=== PATIENT | male | born 1950 | race Hispanic/Latino ===

== ENCOUNTER 2017-05-11 07:08 | Inpatient (IN) | payer OTHER, MEDICARE ==
[2017-05-07 09:30] LABS: Basophils % (Auto) 0.4 % (0.0-1.8); Eosinophils # (Auto) 0.2 K/mm3 (0.0-0.4); Eosinophils % (Auto) 2.5 % (0.0-4.3); Hematocrit 41.8 % (35.5-45.6); Hemoglobin 14.1 gm/dl (11.8-15.2); Lymphocytes % (Auto) 23.6 % (13.4-35.0); Mean Corpuscular HGB Conc 34 % (32-34); Mean Corpuscular Hemoglobin 33 pg (28-32); Mean Corpuscular Volume 97 fl (84-94); Monocytes # (Auto) 0.7 K/mm3 (0.0-0.8); Monocytes % (Auto) 8.2 % (0.0-7.3); Platelet Count 230 K/mm3 (140-440); Red Blood Count 4.33 M/mm3 (3.65-5.03); Red Cell Distribution Width 14.4 % (13.2-15.2)
[2017-05-07 09:49] LABS: INR 0.92 (0.87-1.13)
[2017-05-07 09:56] LABS: BUN/Creatinine Ratio 19; Blood Urea Nitrogen 17 mg/dL (9-20); Calcium 9.2 mg/dL (8.4-10.2)
[2017-05-07 09:57] LABS: Hemolysis Index 11
--- NOTE | 2017-05-07 15:16 | Anesthesia Consultation ---
Anesthesia Consult and Med Hx Date of service: 05/07/17 - Airway Anesthetic Teeth Evaluation: Dentures ROM Head & Neck: Adequate Mental/Hyoid Distance: Adequate Mallampati Class: Class III Intubation Access Assessment: Probably Good - Pulmonary Exam CTA: Yes - Cardiac Exam Cardiac Exam: RRR - Pre-Operative Health Status ASA Pre-Surgery Classification: ASA3 Proposed Anesthetic Plan: General - Pre-Anesthesia Comment Pre-Anesthesia Comments: Cardiac clearance on chart - Pulmonary Hx Smoking: Yes (2pk/day x 50yrs, uses snuff) Hx Sleep Apnea: Yes (uses CPAP) - Cardiovascular System Hx Hypertension: Yes (HL) Hx Coronary Artery Disease: Yes (s/p CABG-5vessels. EKG: SR, RBBB, old inferior infarct) Hx Heart Attack/AMI: Yes (EF 50%, mild LVH) Hx Peripheral Vascular Disease: Yes - Central Nervous System Hx Psychiatric Problems: No - Endocrine Hx Non-Insulin Dependent Diabetes: Yes - Other Systems Hx Alcohol Use: Yes (6 pack on weekends) Hx Cancer: No
[~2017-05-11 07:08] MED LIST: ANCEF/STERILE WATER 2 GM/20 ML 2 GM/20 ML SYRINGE IV NR; NACL 0.9% 1000 ML 1,000 ML IV SCH; NACL BACTERIOSTATIC INFILTRATI ONE
[2017-05-11] MEDS ORDERED: ZOFRAN IV PRN (07:10)
[2017-05-11] MEDS ORDERED: SUBLIMAZE IV PRN (07:10)
[2017-05-11] MEDS ORDERED: PROVENTIL IH NR (07:15)
--- NOTE | 2017-05-11 07:15 | Anesthesia Day of Surgery ---
Anesthesia Day of Surgery - Day of Surgery Patient Examined: Yes Patient H&P Reviewed: Yes Patient is NPO: Yes Beta Blockers: Yes Cardiac Clearance: Yes
[2017-05-11] MEDS ORDERED: HEPARIN 10,000 UNITS/10 ML ONE ×2 (07:26→12:19)
[2017-05-11] MEDS ORDERED: NACL 0.9% 500 ML 0 ML ONE (07:26)
[2017-05-11] MEDS ORDERED: DIPRIVAN 10 MG/ML IV ONE (07:29)
[2017-05-11] MEDS ORDERED: SUBLIMAZE ONE ×3 (07:31→13:04)
[2017-05-11] MEDS ORDERED: VERSED ONE (07:38)
[2017-05-11] MEDS ORDERED: MARCAINE 0.5% 30 ML INFILTRATI ONE (07:39)
[2017-05-11] MEDS ORDERED: PEPCID IV NR (08:00)
[2017-05-11] MEDS ORDERED: ALBURX 25% (ALBUMIN) IV ONE ×3 (09:00→12:00)
[2017-05-11] MEDS ORDERED: PROTAMINE SULFATE ONE (09:10)
[2017-05-11] MEDS ORDERED: GELFOAM TP ONE (09:10)
[2017-05-11] MEDS ORDERED: NACL 0.9% 100 ML ONE (09:10)
[2017-05-11] MEDS ORDERED: THROMBIN (BOVINE) TP ONE (09:11)
[2017-05-11] MEDS ORDERED: MARCAINE 0.5% INFILTRATI ONE (09:45)
[2017-05-11] MEDS ORDERED: OMNIPAQUE (300 MG) 50 ML in NACL 0.9% 50 ML IR ONE (09:45)
[2017-05-11] MEDS ORDERED: HEPARIN 10,000 UNITS/10 ML 2,000 UNIT in NACL 0.9% 500 ML 500 ML IR ONE (09:45)
[2017-05-11] MEDS ORDERED: ePHEDrine SULFATE ONE (11:33)
[2017-05-11] MEDS ORDERED: NACL 0.9% 500 ML 500 ML ONE (12:19)
[2017-05-11] MEDS ORDERED: MORPHINE IV PRN ×2 (12:37)
[2017-05-11] MEDS ORDERED: NACL 0.9% IR ONE (12:37)
[2017-05-11] MEDS ORDERED: NARCAN 0.4 MG/1 ML IV PRN (12:37)
[2017-05-11] MEDS ORDERED: ANCEF/NS 1 GM/50 ML 1 GM/50 ML BAG IV SCH (13:00)
--- NOTE | 2017-05-11 13:37 | Post Anesthesia Evaluation ---
- Post Anesthesia Evaluation Patient Participated: Yes Airway Patent: Yes Stable Respiratory Function: Yes Nausea/Vomiting: No Temp > 96.8F: Yes Pain Manageable: Yes Adequeate Hydration: Yes Anesthesia Complications: No
--- NOTE | 2017-05-11 13:48 | Operative Report ---
Operative Report Operative Report: Operative note: Date: 05/11/2017 Preoperative diagnosis: Chronic left limb ischemia with life limiting short distance claudication Postoperative diagnosis: Same. Operation: Left common femoral endarterectomy with patch angioplasty. Left iliac angiogram. Left external iliac stenting. Surgeon: Raquel Sam. Asst.: Dr. Randy Coles Anesthesia: Gen. EBL: 600 mL Findings: Occluded left common femoral artery. Stenosis of left external iliac artery. Excellent flow at the end of procedure. Indications: 66-year-old gentleman with complains of life limiting left leg claudication with very short distance that causes a lot of discomfort during his work. He had CT a that showed complete occlusion of left common femoral artery with stenosis of external iliac artery. Patient was offered left common femoral endarterectomy with iliac stenting, explained all risks, benefits and alternatives of procedure. Patient chose to proceed and signed informed consent. Operative details: Patient was brought to the operating room and placed in supine position. He was prepped and draped in sterile fashion circumferentially left lower extremity. Timeout was performed. Incision was made with skin blade in the left groin area in the vertical fashion. It was carried down through subcutaneous tissue with electrocautery. Fascia was incised and femoral artery dissected. Superficial femoral artery, profunda and proximal common femoral artery/external iliac was taken on vessel loops for proximal and distal control. Patient was heparinized with 5000 units of heparin and allowed 3 minutes to circulate. Proximal control was also gained with a Satinsky clamp. Arteriotomy was created with 11 blade and carried Down with Milian scissors. Using [place] pickups and [place] elevator endotracheal was performed. Eversion technique was used for plaque removal from profunda and SFA. Plaque also was cleaned proximally using mosquito clamp and removed from just below proximal control clamp. Vessels were flushed. Bovine pericardium patch was used for patch angioplasty sizing 0.8 x 8cm. we used 50 C1 Prolene stitch in circumferential fashion. Lumen was flushed before stitch completion. Repair stitches were used for hemostasis. There was a bleeding from the vessel wall at the bifurcation of the SFA and profunda required pledgeted stitch. A second part of our procedure was iliac stenting. Micropuncture needle was used to access in the middle patch, it was exchanged to a micro-punctures she is over guidewire under fluoroscopic guidance. Angiogram of left iliacs showed high-grade stenosis of external iliac artery in proximal and distal portions. This point I advanced the Glidewire to distal aorta and exchanged micropuncture sheath 7 Afghan access sheath. It was flushed. Glidewire was exchanged to the V18 wire over vertebral catheter. 7 x 10 cm Viabahn stent was deployed just below internal iliac artery takeoff that covered both lesions. It was postdilated with a 7 x 40 conquest balloon. Post intervention angiogram showed no residual stenosis and excellent stent positioning, patent internal iliac artery. At this point all wires were removed and sheath access site was closed using 6-0 Prolene. Withdrawal of procedure patient was redosed with heparin every hour. Wound was copiously irrigated with saline. It was checked for hemostasis. Fibrillar was laid on top of the arterial site. Wound was closed in layers with fascia approximation with 3-0 Vicryl. and superficial layer with Monocryl. Dermabond was applied. All sponge and needle count was correct. Patient tolerated the procedure well. At the end of procedure she had palpable PT and Doppler DP signal. He was transferred to PACU in stable condition
[2017-05-11] MEDS ORDERED: NACL 0.9% 1000 ML 1,000 ML IV SCH (14:00)
[2017-05-11] MEDS ORDERED: NON-FORMULARY (Labetalol Hcl [Labetalol Hcl] 300 MG) PO SCH (14:00)
[2017-05-11] MEDS: DILAUDID IV PRN ×2 (14:20→15:25)
[2017-05-11] MEDS ORDERED: ZOFRAN ONE (16:00)
[2017-05-11] MEDS ORDERED: NEOSTIGMINE ONE (16:00)
[2017-05-11] MEDS ORDERED: NEO SYNEPHRINE/NS Syringe(OR USE) IV ONE (16:00)
[2017-05-11] MEDS ORDERED: ZEMURON IV ONE (16:00)
[2017-05-11] MEDS ORDERED: XYLOCAINE MPF 2% ONE (16:00)
[2017-05-11] MEDS ORDERED: ROBINUL ONE (16:00)
[2017-05-11] MEDS: ceFAZolin 1 GM in NACL 0.9% 20 ML IV SCH (20:10)
[2017-05-11] MEDS ORDERED: GLUCOPHAGE PO SCH (22:00)
[2017-05-11] MEDS ORDERED: PLETAL PO SCH (22:00)
[2017-05-11] MEDS: NORMODYNE PO SCH (22:13)
[2017-05-12] MEDS: ceFAZolin 1 GM in NACL 0.9% 20 ML IV SCH (02:15)
[2017-05-12 04:12] LABS: Hematocrit 33.3 % (35.5-45.6); Hemoglobin 11.1 gm/dl (11.8-15.2)
[2017-05-12] MEDS: NORCO 5/325 PO PRN ×2 (04:30→10:13)
[2017-05-12 04:34] LABS: BUN/Creatinine Ratio 15; Blood Urea Nitrogen 12 mg/dL (9-20); Calcium 7.5 mg/dL (8.4-10.2); Hemolysis Index 3
[2017-05-12] MEDS: ZOFRAN IV PRN ×2 (04:49→15:39)
[2017-05-12] MEDS ORDERED: VALSARTAN HCTZ PO SCH (10:00)
--- NOTE | 2017-05-12 10:10 | Progress Note ---
Assessment and Plan Pt s/p L femoral endarterectomy with iliac angioplasty and stent placement. He's awake and alert. His pulse ox is in the low 90's on O2 NC. I encouraged Incentive spirometry. Pt is anxious to go home. I re-iterated to him that I would re-eval later today. If he can ambulate adequately to complete his ADL, Pain is controlled with oral analgesics, and his room air pulse ox were adequate then we'd d/c him later today. If his pulse ox remains low then he may need home oxygen and d/c planning would have to be completed. - Patient Problems (1) Atherosclerosis of [place] arteries of extremity with intermittent claudication Current Visit: Yes Status: Acute Subjective Date of service: 05/12/17 Interval history: Pt awake and alert. Min. incisional discomfort, but well tolerated. Objective - Constitutional Vitals: Vital Signs - 12hr 05/11/17 05/11/17 05/11/17 22:13 22:30 23:00 Temperature Pulse Rate 93 H 91 H Respiratory 15 16 Rate Respiratory Rate [Left Groin] Blood Pressure 125/53 Blood Pressure 121/57 [Left] O2 Sat by Pulse 94 Oximetry 05/12/17 05/12/17 05/12/17 00:00 01:00 02:00 Temperature Pulse Rate 86 91 H 85 Respiratory 14 16 17 Rate Respiratory Rate [Left Groin] Blood Pressure Blood Pressure 110/52 121/52 121/58 [Left] O2 Sat by Pulse 95 94 95 Oximetry 05/12/17 05/12/17 05/12/17 03:00 04:00 04:30 Temperature Pulse Rate 87 87 Respiratory 14 16 17 Rate Respiratory Rate [Left Groin] Blood Pressure Blood Pressure 128/60 116/55 [Left] O2 Sat by Pulse 94 93 Oximetry 05/12/17 05/12/17 05/12/17 05:00 06:00 07:00 Temperature Pulse Rate 83 86 85 Respiratory 16 12 17 Rate Respiratory Rate [Left Groin] Blood Pressure Blood Pressure 117/54 127/60 117/53 [Left] O2 Sat by Pulse 93 93 92 Oximetry 05/12/17 05/12/17 08:00 08:40 Temperature 98 F Pulse Rate 91 H Respiratory 12 Rate Respiratory 18 Rate [Left Groin] Blood Pressure Blood Pressure 146/62 [Left] O2 Sat by Pulse 90 Oximetry General appearance: Present: no acute distress - EENT Eyes: EOM intact ENT: hearing intact - Neck Neck: supple - Respiratory Respiratory effort: normal Extremities: no ischemia, normal temperature Extremity abnormal: pulses diminished (but audible pedal dopplers on the left: PT>DP) - Neurologic Neurologic: no focal deficits - Psychiatric Psychiatric: appropriate mood/affect, intact judgment & insight, cooperative - Labs CBC & Chem 7: 05/12/17 04:00 05/12/17 04:00 Labs: Abnormal lab results 05/11/17 05/11/17 05/11/17 Range/Units 13:21 18:41 21:42 Hgb (11.8-15.2) gm/dl Hct (35.5-45.6) % Glucose (75-100) mg/dL POC Glucose 172 H 111 H 113 H (70-105) Calcium (8.4-10.2) mg/dL 05/12/17 05/12/17 05/12/17 Range/Units 04:00 04:00 06:39 Hgb 11.1 L (11.8-15.2) gm/dl Hct 33.3 L (35.5-45.6) % Glucose 120 H (75-100) mg/dL POC Glucose 131 H (70-105) Calcium 7.5 L D (8.4-10.2) mg/dL
[2017-05-12] MEDS: HCTZ PO SCH (10:16)
[2017-05-12] MEDS: LOVENOX SUB-Q SCH (10:16)
[2017-05-12] MEDS: HALFPRIN EC PO SCH (10:17)
[2017-05-12] MEDS: NORVASC PO SCH (10:18)
[2017-05-12] MEDS: PAXIL PO SCH (11:01)
[2017-05-12] MEDS: DIOVAN PO SCH (11:06)
[2017-05-12] MEDS: NOVOLOG SUB-Q SCH ×4 (13:12→23:28)
[2017-05-12] MEDS: NORMODYNE PO SCH ×3 (13:14→21:04)
--- NOTE | 2017-05-12 16:12 | Consultation ---
History of Present Illness Consult date: 05/12/17 Requesting physician: SHARLA VAIL Reason for consult: hypoxemia History of present illness: 66 y/o smoker of 40+ years, still smoking admitted for vascular surgery. Tolerated procedure well with no issues. Post-op day 1, patient hypoxic on room air at rest to 88%. Pulm asked to evaluate patient. Per patient he is still smoking but will stop once discharged. He states that he has never had any issues with breathing and feels fine. Denies any cough or chest pain. Past History Past Medical History: other (PVD) Past Surgical History: Other (Most recent vascular procedure) Social history: smoking Medications and Allergies Allergies Allergy/AdvReac Type Severity Reaction Status Date / Time Sulfa (Sulfonamide Allergy rash, Verified 05/05/17 15:15 Antibiotics) swelling Home Medications Medication Instructions Recorded Confirmed Last Taken Type Amlodipine Besylate [Norvasc] 10 mg PO DAILY 05/05/17 05/11/17 05/11/17 05:00 History Aspirin [Lo-Dose Aspirin EC] 81 mg PO DAILY 05/05/17 05/11/17 05/10/17 History Cilostazol [Pletal] 100 mg PO BID 05/05/17 05/11/17 05/10/17 History Diclofenac Sodium 75 mg PO DAILY 05/05/17 05/11/17 05/10/17 History Labetalol HCl 300 mg PO TID 05/05/17 05/11/17 05/11/17 05:00 History PARoxetine [Paxil] 20 mg PO DAILY 05/05/17 05/11/17 05/10/17 History Valsartan-Hctz 320-25 mg Tab 1 tab PO DAILY 05/05/17 05/11/17 05/10/17 05:00 History metFORMIN [Glucophage] 500 mg PO BID 05/05/17 05/11/17 05/10/17 History HYDROcodone/APAP 7.5-325 [[place] 1 each PO Q6HR PRN #20 tablet 05/12/17 Unknown Rx 7.5/325] Active Meds: Active Medications Acetaminophen/Hydrocodone Bitart ([place] 5/325) 2 each PO Q6H PRN PRN Reason: Pain, Moderate (4-6) Last Admin: 05/12/17 10:13 Dose: 2 each Amlodipine Besylate (Norvasc) 10 mg PO DAILY [facility] Last Admin: 05/12/17 10:18 Dose: 10 mg Aspirin (Halfprin Ec) 81 mg PO DAILY [facility] Last Admin: 05/12/17 10:17 Dose: 81 mg Enoxaparin Sodium (Lovenox) 40 mg SUB-Q QDAY [facility] Last Admin: 05/12/17 10:16 Dose: 40 mg Hydrochlorothiazide (Hctz) 25 mg PO QDAY [facility] Last Admin: 05/12/17 10:16 Dose: 25 mg Insulin Aspart (Novolog) 0 units SUB-Q ACHS [facility] PRN Reason: Protocol Last Admin: 05/12/17 13:13 Dose: 1 units Labetalol HCl (Normodyne) 300 mg PO TID [facility] Last Admin: 05/12/17 13:23 Dose: 300 mg Metformin HCl (Glucophage) 500 mg PO BID [facility] Morphine Sulfate (Morphine) 2 mg IV Q4H PRN PRN Reason: Pain, Moderate (4-6) Last Admin: 05/11/17 22:30 Dose: 2 mg Morphine Sulfate (Morphine) 4 mg IV Q4H PRN PRN Reason: Pain , Severe (7-10) Last Admin: 05/12/17 02:00 Dose: 4 mg Naloxone HCl (Narcan 0.4 Mg/1 Ml) 0.1 mg IV Q2MIN PRN PRN Reason: Res Rate </= 8 or 02 SAT < 92% Ondansetron HCl (Zofran) 4 mg IV Q8H PRN PRN Reason: Nausea And Vomiting Last Admin: 05/12/17 15:39 Dose: 4 mg Paroxetine HCl (Paxil) 20 mg PO DAILY [facility] Last Admin: 05/12/17 11:01 Dose: 20 mg Valsartan (Diovan) 320 mg PO QDAY [facility] Last Admin: 05/12/17 11:06 Dose: 320 mg Review of Systems All systems: negative Physical Examination Vital signs: Vital Signs Temp Pulse Resp BP 97.8 F 78 18 144/68 05/07/17 09:10 05/07/17 09:10 05/07/17 09:10 05/07/17 09:10 Patient declined physical exam Results - Laboratory Findings CBC and BMP: 05/12/17 04:00 05/12/17 04:00 PT/INR, D-dimer PT 12.8 Sec. (12.2-14.9) 05/07/17 09:10 INR 0.92 (0.87-1.13) 05/07/17 09:10 Abnormal lab findings: Abnormal Labs 05/07/17 05/07/17 05/11/17 09:10 09:10 07:04 Hgb Hct MCV 97 H MCH 33 H [place] % (Auto) 8.2 H Glucose 153 H POC Glucose 122 H Calcium 05/11/17 05/11/17 05/11/17 13:21 18:41 21:42 Hgb Hct MCV MCH [place] % (Auto) Glucose POC Glucose 172 H 111 H 113 H Calcium 05/12/17 05/12/17 05/12/17 04:00 04:00 06:39 Hgb 11.1 L Hct 33.3 L MCV MCH [place] % (Auto) Glucose 120 H POC Glucose 131 H Calcium 7.5 L D 05/12/17 11:16 Hgb Hct MCV MCH [place] % (Auto) Glucose POC Glucose 157 H Calcium Assessment and Plan 66 y/o male, smoker with hypoxemia. 1. Long discussion at bedside with patient. I expressed my concerns about the possiblity of him having COPD. I expressed the most likely need for him to have home O2. I also expressed my concern for lack of oxygen from here on out as well as the dangers of smoking while wearing oxygen. 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 He also states that he will not elect to have a CXR done while here as it was a waste of money in the past and he just had one 2 -3 months ago from his primary doc and was told that everything was ok. He was not interested in hearing about follow up as he states that he already goes to too many specialists and he will not take on another one. I again, attempted to explain the risk of his actions to the patient and he states that he understands. He is currently wearing oxygen and has a good O2 sat and is awake alert and oriented x4 and appropriate. Thank you for this consult. Please call with any questions.
[2017-05-13 09:10] VITALS: BP 158/59
--- NOTE | 2017-05-13 09:36 | Short Stay Summary ---
Short Stay Documentation Date of service: 05/13/17 Narrative H&P: See H&P - History H&P: obtained from office Past Medical History: other (PVD) Past Surgical History: Other (Most recent vascular procedure) Social history: smoking - Allergies and Medications Current Medications: Allergies Sulfa (Sulfonamide Antibiotics) Allergy (Verified 05/05/17 15:15) rash, swelling Home Medications Medication Instructions Recorded Confirmed Last Taken Type Amlodipine Besylate [Norvasc] 10 mg PO DAILY 05/05/17 05/11/17 05/11/17 05:00 History Aspirin [Lo-Dose Aspirin EC] 81 mg PO DAILY 05/05/17 05/11/17 05/10/17 History Cilostazol [Pletal] 100 mg PO BID 05/05/17 05/11/17 05/10/17 History Diclofenac Sodium 75 mg PO DAILY 05/05/17 05/11/17 05/10/17 History Labetalol HCl 300 mg PO TID 05/05/17 05/11/17 05/11/17 05:00 History PARoxetine [Paxil] 20 mg PO DAILY 05/05/17 05/11/17 05/10/17 History Valsartan-Hctz 320-25 mg Tab 1 tab PO DAILY 05/05/17 05/11/17 05/10/17 05:00 History metFORMIN [Glucophage] 500 mg PO BID 05/05/17 05/11/17 05/10/17 History HYDROcodone/APAP 7.5-325 [[place] 1 each PO Q6HR PRN #20 tablet 05/12/17 Unknown Rx 7.5/325] Active Medications Acetaminophen/Hydrocodone Bitart ([place] 5/325) 2 each PO Q6H PRN PRN Reason: Pain, Moderate (4-6) Last Admin: 05/12/17 10:13 Dose: 2 each Amlodipine Besylate (Norvasc) 10 mg PO DAILY [facility] Last Admin: 05/12/17 10:18 Dose: 10 mg Aspirin (Halfprin Ec) 81 mg PO DAILY [facility] Last Admin: 05/12/17 10:17 Dose: 81 mg Enoxaparin Sodium (Lovenox) 40 mg SUB-Q QDAY [facility] Last Admin: 05/12/17 10:16 Dose: 40 mg Hydrochlorothiazide (Hctz) 25 mg PO QDAY [facility] Last Admin: 05/12/17 10:16 Dose: 25 mg Insulin Aspart (Novolog) 0 units SUB-Q ACHS [facility] PRN Reason: Protocol Last Admin: 05/12/17 23:28 Dose: Not Given Labetalol HCl (Normodyne) 300 mg PO TID [facility] Last Admin: 05/12/17 21:04 Dose: 300 mg Metformin HCl (Glucophage) 500 mg PO BIDDIAB [facility] Morphine Sulfate (Morphine) 2 mg IV Q4H PRN PRN Reason: Pain, Moderate (4-6) Last Admin: 05/11/17 22:30 Dose: 2 mg Morphine Sulfate (Morphine) 4 mg IV Q4H PRN PRN Reason: Pain , Severe (7-10) Last Admin: 05/12/17 02:00 Dose: 4 mg Naloxone HCl (Narcan 0.4 Mg/1 Ml) 0.1 mg IV Q2MIN PRN PRN Reason: Res Rate </= 8 or 02 SAT < 92% Ondansetron HCl (Zofran) 4 mg IV Q8H PRN PRN Reason: Nausea And Vomiting Last Admin: 05/12/17 15:39 Dose: 4 mg Paroxetine HCl (Paxil) 20 mg PO DAILY [facility] Last Admin: 05/12/17 11:01 Dose: 20 mg Valsartan (Diovan) 320 mg PO QDAY [facility] Last Admin: 05/12/17 11:06 Dose: 320 mg - Physical exam Extremities: no ischemia, normal temperature - Brief post op/procedure progress note Date of procedure: 05/11/17 Procedure: See the operative note for details - Hospital course Hospital course: The patient was admitted and taken to the operating room for a left common femoral endarterectomy with left external iliac artery stenting. Postoperatively he was admitted to the ICU however he remained in the PACU. He did fairly well however he has some postoperative complications secondary to decreased saturations on room air. Pulmonology was consulted and made recommendations for a chest x-ray and home oxygen however the patient refused all recommendations including follow-up with pulmonology. On postoperative day #1 he wore CPAP overnight and on postoperative day #2 the patient's oxygen saturations have improved and he has a room air saturation of 92%. I still have stressed the recommendations of the staff nurse with follow-up and a baseline chest x-ray. The patient still refuses these recommendations however given the improved room air saturations he is clinically ready for discharge to home. - Disposition Condition at discharge: Good Disposition: DC-01 TO HOME OR SELFCARE Short Stay Discharge Plan Activity: other (no strenuous activity until follow-up) Wound: open to air, keep clean and dry, other (okay to shower and wash the wound with soap and water but do not soak in water) Follow up with: SHARLA VAIL DO [Staff Physician] - 14 Days Prescriptions: HYDROcodone/APAP 7.5-325 [[place] 7.5/325] 1 each PO Q6HR PRN #20 tablet PRN Reason: Pain
--- NOTE | 2017-05-13 09:38 | Progress Note ---
Assessment and Plan Postoperative #2 patient's room air saturations have improved and he is clinically ready for discharge to home Subjective Date of service: 05/13/17 Interval history: Patient with no new complaints room air saturations 92% Objective - Constitutional Vitals: Vital Signs - 12hr 05/12/17 05/12/17 05/13/17 22:30 23:31 05:53 Temperature 98.1 F 98.2 F Pulse Rate 86 80 92 H Respiratory 20 22 24 Rate Blood Pressure 97/46 148/69 O2 Sat by Pulse 95 88 87 Oximetry 05/13/17 08:45 Temperature 98.4 F Pulse Rate 95 H Respiratory 20 Rate Blood Pressure 158/59 O2 Sat by Pulse 92 Oximetry General appearance: Present: no acute distress - Respiratory Respiratory effort: normal Extremities: no ischemia, normal temperature Extremity abnormal: other (left groin incision clean dry and intact without evidence of hematoma) - Labs CBC & Chem 7: 05/12/17 04:00 05/12/17 04:00 Labs: Abnormal lab results 05/12/17 05/12/17 05/12/17 Range/Units 11:16 17:41 22:21 POC Glucose 157 H 116 H 150 H (70-105) 05/13/17 Range/Units 06:00 POC Glucose 127 H (70-105)
[2017-05-13] MEDS: PAXIL PO SCH (10:20)
[2017-05-13] MEDS: NOVOLOG SUB-Q SCH (10:20)
[2017-05-13] MEDS: DIOVAN PO SCH (10:20)
[2017-05-13] MEDS: LOVENOX SUB-Q SCH (10:21)
[2017-05-13] MEDS: NORVASC PO SCH (10:21)
[2017-05-13] MEDS: HCTZ PO SCH (10:21)
[2017-05-13] MEDS: HALFPRIN EC PO SCH (10:52)
[2017-05-13] MEDS: NORMODYNE PO SCH (10:52)
[2017-05-14] MEDS ORDERED: GLUCOPHAGE PO SCH (08:00)
== END 2017-05-13 11:25 | disposition home or self-care (01) | DRG 272 ==
LOC: 3A 11:01 → CC1 05-12 00:15 → 3A 05-12 11:10
PROVIDERS: ADMIT Surgery Vascular Surgery; ATTEND Surgery Vascular Surgery
PROC: 04CL3ZZ Extirpation of Matter from Left Femoral Artery, Percutaneous Approach (ICD-10-PCS; principal; 2017-05-11)
PROC: 04UL3JZ Supplement Left Femoral Artery with Synthetic Substitute, Percutaneous Approach (ICD-10-PCS; 2017-05-11)
PROC: 047J3DZ Dilation of Left External Iliac Artery with Intraluminal Device, Percutaneous Approach (ICD-10-PCS; 2017-05-11)
PROC: 5A09357 Assistance with Respiratory Ventilation, Less than 24 Consecutive Hours, Continuous Positive Airway Pressure (ICD-10-PCS; 2017-05-11)
DX: I70.212 Atherosclerosis of native arteries of extremities with intermittent claudication, left leg (principal); Z88.2 Allergy status to sulfonamides; Z87.891 Personal history of nicotine dependence; Z79.82 Long term (current) use of aspirin; R09.02 Hypoxemia
CPT/HCPCS: 36415; 80048; 82962; 85014; 85018; 85025; 85610; 86850; 86900; 86901; 88304; 88311; 94660; 94760; 99406; A4649; C1725; C1757; C1768; C1769; C1874; C1894; J0690; J1170; J1644; J1650; J1815; J2250; J2270; J2370; J2405; J2704; J2710; J2720; J3010; J3246; J7030; J7040; P9047; Q9966

== ENCOUNTER 2017-08-10 09:00 | Inpatient (IN) | payer OTHER, MEDICARE ==
[2017-08-10 10:41] LABS: Basophils % (Auto) 0.6 % (0.0-1.8); Eosinophils # (Auto) 0.3 K/mm3 (0.0-0.4); Eosinophils % (Auto) 3.3 % (0.0-4.3); Hematocrit 43.5 % (35.5-45.6); Hemoglobin 14.7 gm/dl (11.8-15.2); Lymphocytes # (Auto) 1.3 K/mm3 (1.2-5.4); Lymphocytes % (Auto) 16.1 % (13.4-35.0); Mean Corpuscular HGB Conc 34 % (32-34); Mean Corpuscular Hemoglobin 33 pg (28-32); Mean Corpuscular Volume 97 fl (84-94); Monocytes # (Auto) 0.6 K/mm3 (0.0-0.8); Monocytes % (Auto) 7.1 % (0.0-7.3); Platelet Count 241 K/mm3 (140-440); Red Blood Count 4.48 M/mm3 (3.65-5.03); Red Cell Distribution Width 14.8 % (13.2-15.2)
[2017-08-10 10:47] LABS: INR 0.81 (0.87-1.13)
--- NOTE | 2017-08-10 10:49 | Anesthesia Consultation ---
Anesthesia Consult and Med Hx Date of service: 08/11/17 - Airway Anesthetic Teeth Evaluation: Dentures ROM Head & Neck: Adequate Mental/Hyoid Distance: Adequate Mallampati Class: Class III Intubation Access Assessment: Probably Good - Pulmonary Exam CTA: Yes - Cardiac Exam Cardiac Exam: RRR - Pre-Operative Health Status ASA Pre-Surgery Classification: ASA3 Proposed Anesthetic Plan: General - Pulmonary Hx Smoking: Yes Hx Sleep Apnea: Yes (on CPAP) - Cardiovascular System Hx Hypertension: Yes Hx Coronary Artery Disease: Yes (s/p CABG-5vessels) Hx Peripheral Vascular Disease: Yes - Central Nervous System Hx Psychiatric Problems: No - Endocrine Hx Non-Insulin Dependent Diabetes: Yes - Other Systems Hx Alcohol Use: Yes (6 pack on weekends) Hx Cancer: No Hx Obesity: Yes - Additional Comments Anesthesia Medical History Comments: Cataract surgery last week. femoral endareterectomy other side in April. cardiac clearance on chart
[2017-08-10 10:58] LABS: BUN/Creatinine Ratio 19; Blood Urea Nitrogen 13 mg/dL (9-20); Calcium 9.2 mg/dL (8.4-10.2); Hemolysis Index 12
[2017-08-11] MEDS ORDERED: ANCEF/STERILE WATER 2 GM/20 ML 2 GM/20 ML SYRINGE IV NR (06:00)
[2017-08-11] MEDS ORDERED: NACL BACTERIOSTATIC INFILTRATI ONE (06:22)
[2017-08-11] MEDS: NACL 0.9% 1000 ML 1,000 ML IV SCH ×3 (06:50→21:19)
[2017-08-11] MEDS ORDERED: SUBLIMAZE ONE ×2 (06:54→07:53)
[2017-08-11] MEDS ORDERED: DIPRIVAN 10 MG/ML IV ONE (06:55)
--- NOTE | 2017-08-11 07:13 | Anesthesia Consultation ---
Anesthesia Consult and Med Hx - Pulmonary Exam CTA: Yes - Cardiac Exam Cardiac Exam: RRR - Pre-Operative Health Status ASA Pre-Surgery Classification: ASA3 - Pulmonary Hx Smoking: Yes Hx Sleep Apnea: Yes (on CPAP) - Cardiovascular System Hx Hypertension: Yes Hx Coronary Artery Disease: Yes (s/p CABG-5vessels) Hx Heart Attack/AMI: Yes (seen on EKG, pt states don't know when) Hx Peripheral Vascular Disease: Yes - Central Nervous System Hx Psychiatric Problems: No - Endocrine Hx Non-Insulin Dependent Diabetes: Yes - Other Systems Hx Alcohol Use: Yes (6 pack on weekends) Hx Cancer: No Hx Obesity: Yes - Additional Comments Anesthesia Medical History Comments: Cataract surgery last week. femoral endareterectomy other side in April. cardiac clearance on chart
[2017-08-11] MEDS ORDERED: NACL 0.9% 500 ML 500 ML ONE (07:38)
[2017-08-11] MEDS ORDERED: HEPARIN 10,000 UNITS/10 ML ONE ×2 (07:38→14:05)
[2017-08-11] MEDS ORDERED: VERSED ONE (07:40)
--- NOTE | 2017-08-11 07:47 | Anesthesia Day of Surgery ---
Anesthesia Day of Surgery - Day of Surgery Patient Examined: Yes Patient H&P Reviewed: Yes Patient is NPO: Yes Beta Blockers: Yes Cardiac Clearance: Yes Pulmonary Clearance: Yes Apolinar's Test: N/A
[2017-08-11] MEDS ORDERED: MARCAINE 0.5% INFILTRATI ONE ×2 (07:49→09:34)
[2017-08-11] MEDS ORDERED: PROTAMINE SULFATE ONE (07:49)
[2017-08-11] MEDS ORDERED: RIFADIN ONE (07:49)
[2017-08-11] MEDS ORDERED: GELFOAM TP ONE (07:50)
[2017-08-11] MEDS ORDERED: NACL 0.9% 250ML 250 ML ONE ×2 (07:50→12:12)
[2017-08-11] MEDS ORDERED: THROMBIN (BOVINE) TP ONE (07:50)
[2017-08-11] MEDS ORDERED: ePHEDrine SULFATE ONE ×2 (08:36→13:41)
[2017-08-11] MEDS ORDERED: ZEMURON IV ONE ×6 (09:15→15:05)
[2017-08-11] MEDS ORDERED: XYLOCAINE CARDIAC IV ONE (09:15)
[2017-08-11] MEDS ORDERED: NACL 0.9% 1000 ML 2,000 ML ONE (09:15)
[2017-08-11] MEDS ORDERED: NACL 0.9% IR ONE (09:33)
[2017-08-11] MEDS ORDERED: HEPARIN 10,000 UNITS/10 ML 2,000 UNIT in NACL 0.9% 500 ML 500 ML IR ONE ×2 (09:34→14:50)
[2017-08-11] MEDS ORDERED: ALBURX 25% (ALBUMIN) IV ONE (09:58)
[2017-08-11] MEDS ORDERED: ALBUTEIN IV NR (10:09)
[2017-08-11] MEDS ORDERED: NEO SYNEPHRINE ONE (10:11)
[2017-08-11] MEDS ORDERED: NEO SYNEPHRINE/NS Syringe(OR USE) IV ONE ×2 (10:11→17:10)
[2017-08-11] MEDS ORDERED: NACL 0.9% 1000 ML 1,000 ML ONE ×2 (11:26→12:43)
[2017-08-11] MEDS ORDERED: OMNIPAQUE (300 MG) 50 ML in NACL 0.9% 50 ML IR ONE (11:45)
[2017-08-11] MEDS ORDERED: NACL 0.9% IV ONE (11:45)
[2017-08-11] MEDS ORDERED: OMNIPAQUE IV ONE (11:45)
[2017-08-11] MEDS ORDERED: HEPARIN 10,000 UNITS/10 ML 1,000 UNIT in NACL 0.9% 250ML 250 ML IR ONE (12:35)
[2017-08-11] MEDS ORDERED: NACL 0.9% 500 ML 500 ML IV NR ×3 (12:52→16:41)
[2017-08-11] MEDS ORDERED: NACL 0.9% 100 ML ONE (12:54)
[2017-08-11] MEDS ORDERED: NACL 0.9% 200 ML ONE (12:54)
[2017-08-11] MEDS ORDERED: Vasostrict IV ONE (13:00)
[2017-08-11] MEDS ORDERED: HumuLIN R ONE (14:37)
[2017-08-11] MEDS ORDERED: KETALAR ONE (14:37)
[2017-08-11] MEDS ORDERED: MAGNESIUM SULFATE 2GM/50ML 2 GM/50 ML BAG IV ONE (14:41)
[2017-08-11] MEDS ORDERED: CALCIUM CHLORIDE IV ONE (14:41)
[2017-08-11] MEDS ORDERED: ZOFRAN ONE (15:00)
[2017-08-11] MEDS ORDERED: CALCIUM GLUCONATE IV ONE (15:02)
[2017-08-11] MEDS ORDERED: ROBINUL ONE (15:43)
[2017-08-11] MEDS ORDERED: NEOSTIGMINE ONE (15:43)
[2017-08-11] MEDS ORDERED: NORCO 7.5/325 PO PRN (15:59)
[2017-08-11] MEDS ORDERED: HEPARIN/ 0.45% NACL-25,000 UNIT/500 ML 25,000 UNIT/500 ML BAG IV SCH (16:00)
[2017-08-11] MEDS ORDERED: NARCAN 0.4 MG/1 ML IV PRN (16:01)
[2017-08-11] MEDS ORDERED: ZOFRAN IV PRN ×2 (16:01→16:19)
--- NOTE | 2017-08-11 16:09 | Post Operative Note ---
Date of procedure: 08/11/17 Pre-op diagnosis: right lower extremity chronic ischemia with short diatance claudication Post-op diagnosis: same Findings: occluded right common femoral artery, severely disease right external iliac artery, disease in the bilateral common iliac artery Procedure: right common femoral endarterectomy with patch angioplasty, bilateral common iliac and right external artery stenting, ultrasound guided left common femoral access Anesthesia: MARICEL Surgeon: SHARLA VAIL Manager Social Media: RINA GOMEZ (Khang Gallagher) Estimated blood loss: other (1700cc) Pathology: list (plaque) Specimen disposition: to lab Condition: stable Disposition: PACU
[2017-08-11] MEDS ORDERED: DILAUDID IV PRN (16:19)
--- NOTE | 2017-08-11 16:23 | Post Anesthesia Evaluation ---
- Post Anesthesia Evaluation Patient Participated: Yes Airway Patent: Yes Stable Respiratory Function: Yes Nausea/Vomiting: No Temp > 96.8F: Yes Pain Manageable: Yes Adequeate Hydration: Yes Anesthesia Complications: No Block Receding Appropriately: Not Applicable Patient on Ventilator: No
[2017-08-11] MEDS: Vasostrict 20 UNIT in NACL 0.9% 100 ML IV SCH (16:59)
[2017-08-11] MEDS ORDERED: ANCEF/NS 1 GM/50 ML 1 GM/50 ML BAG IV SCH (17:00)
[2017-08-11] MEDS: DILAUDID IV PRN ×6 (17:09→23:08)
[2017-08-11 18:09] LABS: Basophils % (Auto) 0.2 % (0.0-1.8); Eosinophils % (Auto) 0.1 % (0.0-4.3); Hematocrit 28.3 % (35.5-45.6); Hemoglobin 9.5 gm/dl (11.8-15.2); Lymphocytes # (Auto) 0.8 K/mm3 (1.2-5.4); Lymphocytes % (Auto) 6.7 % (13.4-35.0); Mean Corpuscular HGB Conc 34 % (32-34); Mean Corpuscular Hemoglobin 32 pg (28-32); Mean Corpuscular Volume 94 fl (84-94); Monocytes # (Auto) 0.8 K/mm3 (0.0-0.8); Monocytes % (Auto) 6.7 % (0.0-7.3); Platelet Count 105 K/mm3 (140-440); Red Cell Distribution Width 16.3 % (13.2-15.2)
[2017-08-11 19:12] LABS: BUN/Creatinine Ratio 20; Blood Urea Nitrogen 14 mg/dL (9-20); Calcium 6.4 mg/dL (8.4-10.2); Hemolysis Index 5
[2017-08-11] MEDS ORDERED: NORMODYNE PO SCH (20:00)
[2017-08-11] MEDS ORDERED: NON-FORMULARY (Labetalol Hcl [Labetalol Hcl] 300 MG) PO SCH (20:00)
[2017-08-11 20:30] LABS: Hematocrit 31.1 % (35.5-45.6); Hemoglobin 10.2 gm/dl (11.8-15.2)
[2017-08-11 20:39] LABS: INR 1.15 (0.87-1.13)
[2017-08-11 20:52] LABS: Partial Thromboplastin Time 97.7 Sec. (24.2-36.6)
[2017-08-11] MEDS ORDERED: NACL 0.9% 500 ML 500 ML IV ONE (21:08)
--- NOTE | 2017-08-11 21:26 | XRay Report ---
FINAL REPORT PROCEDURE: XR CHEST 1V AP TECHNIQUE: Chest radiograph anteroposterior view. CPT 58606 HISTORY: Evaluation for pulmonary congestion COMPARISON: No prior studies are available for comparison. FINDINGS: Heart: The heart size is slightly prominent. Mediastinum/Vessels: Multiple sternal wires are present. Lungs/Pleural space: Normal. Bony thorax: No acute osseous abnormality. Life support devices: None. IMPRESSION: There is no evidence of an acute cardiopulmonary process. Borderline cardiomegaly..
[2017-08-11 22:47] LABS: Heparin anti-factor XA 0.33 U.I./ml (0.3-0.7)
[2017-08-12] MEDS ORDERED: ALBUTEIN IV STA ×2 (00:01→20:07)
[2017-08-12] MEDS: Vasostrict 20 UNIT in NACL 0.9% 100 ML IV SCH ×4 (00:03→23:27)
[2017-08-12] MEDS: ceFAZolin 1 GM in NACL 0.9% 20 ML IV SCH ×2 (00:10→08:29)
[2017-08-12 04:14] LABS: Hematocrit 27.2 % (35.5-45.6); Hemoglobin 9.1 gm/dl (11.8-15.2)
[2017-08-12 04:27] LABS: Calcium 6.3 mg/dL (8.4-10.2)
[2017-08-12] MEDS: LEVOPHED DRIP 4 MG/NS 250 ML 4 MG/250 ML BAG IV SCH ×5 (05:44→23:27)
[2017-08-12 05:55] LABS: Hematocrit 27.5 % (35.5-45.6); Hemoglobin 9.2 gm/dl (11.8-15.2)
--- NOTE | 2017-08-12 07:12 | XRay Report ---
FINAL REPORT EXAM: XR ABDOMEN 1V AP HISTORY: Abdominal distention/Hypotension TECHNIQUE: A total of 3 portable AP supine views were obtained of the abdomen. FINDINGS: There is markedly gas distention of the stomach. The bowel gas pattern otherwise is unremarkable. Free air is not seen. The lung bases are clear. There is visualization of the right renal collecting structures which appear prominent. With this related to contrast enhancement or a large staghorn calculus is uncertain. The skeletal structures reveal arthritic changes lumbar spine. IMPRESSION: Diffuse gas distention of the stomach. Otherwise nondiagnostic bowel gas pattern. Visualization of the right renal collecting structures. With this related to contrast enhancement or a large staghorn calculus is uncertain. There are no previous studies available for comparison
--- NOTE | 2017-08-12 08:19 | Operative Report ---
Operative Report Operative Report: EXAM: ULTRASOUND-GUIDED PLACEMENT OF TLC CLINICAL INDICATION: HYPOTENSIVE PATIENT REQUIRING CENTRAL VENOUS ACCESS FOR PRESSORS DATE: 08/12/2017 PROCEDURE: Following an explanation of the risks, benefits and alternatives; written informed consent was obtained. The procedure was performed at bedside in the ICU. Initial ultrasound evaluation of the neck demonstrated a patent right internal jugular vein. The patient's right neck and chest wall were prepped and draped in the usual sterile fashion. 1% lidocaine was used for anesthesia. Under ultrasound guidance, the right internal jugular vein was cannulated with a 7 cm 18-gauge needle. A 0.035 guidewire advanced centrally easily. The needle was removed and following serial dilation, a triple lumen catheter was placed over the guidewire and advance centrally. Nonpulsatile blood return from all 3 ports. The catheter was flushed and locked with sterile saline and securely fastened of the skin surface using 2-0 nylon suture. A sterile dressing was then applied. The patient tolerated the procedure well. There were no immediate post procedure complications. Post procedure chest x-ray was ordered. IMPRESSION: Ultrasound guided placement of TLC in the right internal jugular vein.
[2017-08-12] MEDS ORDERED: NACL 0.9% 1000 ML 2,000 ML IV ONE (08:37)
[2017-08-12] MEDS ORDERED: D50W (25GM) Syringe IV PRN (08:38)
[2017-08-12] MEDS ORDERED: ATIVAN IV PRN (08:40)
[2017-08-12] MEDS ORDERED: SODIUM BICARBONATE IV ONE ×5 (08:52→12:34)
[2017-08-12] MEDS ORDERED: LACTATED RINGERS 1,000 ML IV SCH ×2 (10:00→12:00)
[2017-08-12] MEDS ORDERED: NORVASC PO SCH (10:00)
[2017-08-12] MEDS: PAXIL PO SCH (10:00)
[2017-08-12] MEDS ORDERED: HCTZ PO SCH (10:00)
[2017-08-12] MEDS ORDERED: PLETAL PO SCH (10:00)
[2017-08-12] MEDS ORDERED: DIOVAN PO SCH (10:00)
[2017-08-12] MEDS ORDERED: LOVENOX SUB-Q SCH (10:00)
[2017-08-12] MEDS ORDERED: VALSARTAN HCTZ PO SCH (10:00)
[2017-08-12] MEDS ORDERED: NACL 0.9% 500 ML 500 ML ONE (10:50)
[2017-08-12] MEDS ORDERED: NACL 0.9% 500 ML 500 ML IV ONE ×3 (10:51→13:36)
[2017-08-12] MEDS ORDERED: PROTAMINE SULFATE ONE (10:51)
[2017-08-12] MEDS ORDERED: PAPAVERINE ONE (10:51)
[2017-08-12] MEDS ORDERED: HEPARIN 10,000 UNITS/10 ML ONE (10:51)
[2017-08-12] MEDS ORDERED: NITROGLYCERIN SYRINGE 0 ML ONE (10:52)
[2017-08-12] MEDS ORDERED: MARCAINE 0.5% 0 ML INFILTRATI ONE (10:53)
[2017-08-12] MEDS ORDERED: MARCAINE 0.5% INFILTRATI ONE ×2 (10:53→13:15)
[2017-08-12] MEDS ORDERED: HESPAN 500 ML IV ONE (10:54)
[2017-08-12] MEDS ORDERED: CALCIUM GLUCONATE 1,000 MG in NACL 0.9% 100 ML IV ONE (11:00)
[2017-08-12] MEDS ORDERED: ALBUTEIN IV NR (11:00)
[2017-08-12] MEDS ORDERED: MAGNESIUM SULFATE 2GM/50ML 0 GM/0 ML BAG IV ONE (11:01)
[2017-08-12] MEDS ORDERED: CALCIUM CHLORIDE IV ONE (11:01)
[2017-08-12] MEDS ORDERED: VERSED ONE ×2 (12:15→13:03)
[2017-08-12] MEDS ORDERED: ANCEF ONE (12:37)
[2017-08-12] MEDS ORDERED: ANCEF/STERILE WATER 2 GM/20 ML 2 GM/20 ML SYRINGE IV ONE (12:37)
--- NOTE | 2017-08-12 12:39 | XRay Report ---
AP CHEST: HISTORY: Tube placement Compared to 08/11/17. A right IJ central line has been inserted which terminates in the lower SVC. There is no evidence for pneumothorax. CABG changes with mild cardiomegaly is stable. The lungs are generally clear. No pleural effusion or pneumothorax. IMPRESSION: Right IJ central line placement as described. No pneumothorax. Stable cardiomegaly.
[2017-08-12] MEDS ORDERED: ACD-A 500 ML IV ONE (12:47)
--- NOTE | 2017-08-12 12:57 | Cat Scan Report ---
CT ANGIOGRAM ABDOMEN AND PELVIS History: Abdominal distention. Technique: Helical CT following IV contrast. Sagittal and coronal reformatted images. Rotational MIP images. Stenosis was calculated using NASCET criteria. Comparison: None at this facility. Findings: There is moderate to large intermediate density fluid which appears to be retroperitoneal in origin. This fluid is most pronounced in the right retroperitoneum within the pelvis and anterior to the bladder. Intermediate density fluid is also identified anterior to the psoas muscles bilaterally. There is a small blush of IV contrast just medial to the right external iliac artery/vein. This presumably represents a site of hemorrhage. I suspect this arises from the right external iliac artery. No other arterial blushes are identified. Mild cardiomegaly and small bilateral pleural effusions are identified. Mild bibasilar atelectasis. A nasogastric tube terminates in the stomach. The bowel loops are within normal limits given no oral contrast was administered. There is mild fatty change throughout the liver. No focal liver mass or surface nodularity. Vicarious excretion of contrast agent into the biliary system is noted. No obvious biliary abnormality. The pancreas, spleen, adrenal glands and left kidney are unremarkable. There is a large peripherally calcified cyst projecting from the inferior pole of the right kidney measuring 11.5 x 8.9 cm in axial plane. The ureters are normal course and caliber. The bladder is decompressed with a Medina catheter but there appears to be marked bladder wall thickening which could represent cystitis. There is a small to medium perihepatic and perisplenic ascites. Moderate to severe atherosclerotic plaques are identified throughout the abdominal aorta and major branches. There is a small fusiform infrarenal aortic aneurysm measuring 3.9 cm in diameter. Extensive atherosclerotic disease throughout the bilateral iliac systems. Vascular stents are suspected in the bilateral common iliac arteries and right external iliac artery. IMPRESSION: Findings concerning for retroperitoneal hemorrhage. There is a blush of contrast agent near the right external iliac vessels which presumably represent the site of bleeding. See above. Mild CHF. Complex right renal cyst. Extensive bladder wall thickening which could represent cystitis or trabeculation. Mild hepatic steatosis. Diffuse atherosclerotic disease. Dr. Charles was notified of these findings at 1230 hrs.
[2017-08-12] MEDS ORDERED: ARGATROBAN 250 MG in NACL 0.9% 250ML 247.5 ML IV SCH (13:00)
--- NOTE | 2017-08-12 13:02 | Consultation ---
History of Present Illness Consult date: 08/12/17 Requesting physician: SHARLA VAIL History of present illness: Patient is hypotensive, obtunded and unable to give a history. History is obtained from review of the medical records. Patient is 66 year old male with past medical history of hypertension, Type 2 DM , hyperlipidemia, CAD, PAD, who underwent elective vascular procedure for R [employer] , and is postop day 1 status post complex femoral endarterectomy and iliac artery stenting. Patient become hypotensive multiple fluid resuscitation and blood products. Also began to exhibit some altered mental status for which were consulted. On arrival the patient appears to be in moderate respiratory distress which saturation of 83 on 50% Ventimask. He is unable to provide much information. He does inform me that he drinks alcohol but not quantified. He denied any chest pain, nausea vomiting or diarrhea. He is currently on vasopressin. Patient was seen and examined. Vitals, labs, medications, chart reviewed. He is currently on norepinephrine and vasopressin with marginal blood pressure. He has a left radial intra-arterial line, a barrientos catheter and a peripheral IV. He is obtunded and moaning and groaning. He is on a heparin infusion and has received multiple blood transfusions and IV fluids Medications and Allergies Allergies Allergy/AdvReac Type Severity Reaction Status Date / Time Sulfa (Sulfonamide Allergy rash, Verified 08/05/17 10:59 Antibiotics) swelling Home Medications Medication Instructions Recorded Confirmed Last Taken Type Amlodipine Besylate [Norvasc] 10 mg PO DAILY 05/05/17 08/05/17 08/11/17 05:30 History Aspirin [Lo-Dose Aspirin EC] 81 mg PO DAILY 05/05/17 08/05/17 08/11/17 05:30 History Cilostazol [Pletal] 100 mg PO BID 05/05/17 08/05/17 08/11/17 05:30 History Diclofenac Sodium 75 mg PO DAILY 05/05/17 08/05/17 08/11/17 05:30 History Labetalol HCl 300 mg PO TID 05/05/17 08/05/17 08/11/17 05:30 History PARoxetine [Paxil] 20 mg PO DAILY 05/05/17 08/05/17 08/11/17 05:30 History Valsartan-Hctz 320-25 mg Tab 1 tab PO DAILY 05/05/17 08/05/1718 05:30 History metFORMIN [Glucophage] 500 mg PO BID 05/05/17 08/11/17 08/10/17 History HYDROcodone/APAP 7.5-325 [[place] 1 each PO Q6HR PRN #20 tablet 05/12/17 08/05/17 Unknown Rx 7.5/325] Active Meds: Active Medications Acetaminophen/Hydrocodone Bitart ([place] 5/325) 2 each PO Q6H PRN PRN Reason: Pain, Moderate (4-6) Albumin Human (Albutein) 25 gm IV ONCE NR Stop: 08/12/17 13:00 Amlodipine Besylate (Norvasc) 10 mg PO DAILY [facility] Last Admin: 08/12/17 12:41 Dose: Not Given Aspirin (Halfprin Ec) 81 mg PO DAILY [facility] Dextrose (D50w (25gm) Syringe) 50 ml IV PRN PRN PRN Reason: Hypoglycemia Folic Acid (Folvite) 1 mg PO QDAY [facility] Hydromorphone HCl (Dilaudid) 0.25 mg IV Q10M PRN PRN Reason: Pain , Severe (7-10) Last Admin: 08/11/17 23:08 Dose: 0.25 mg Sodium Chloride (Nacl 0.9% 1000 Ml) 1,000 mls @ 100 mls/hr IV DIRECT [facility] Last Admin: 08/11/17 21:19 Dose: 500 mls/hr Vasopressin 20 unit/ Sodium (Chloride) 101 mls @ 9.09 mls/hr IV TITR [facility]; Protocol Last Admin: 08/12/17 11:30 Dose: 0.03 units/min, 9.09 mls/hr Heparin Sodium/Sodium Chloride (Heparin/ 0.45% Nacl-25,000 Unit/500 Ml) 25,000 unit in 500 mls @ 30 mls/hr IV TITR [facility]; Protocol Last Admin: 08/11/17 17:05 Dose: 1,500 units/hr, 30 mls/hr Norepinephrine (Levophed Drip 4 Mg/Ns 250 Ml) 4 mg in 250 mls @ 7.5 mls/hr IV TITR [facility]; Protocol Last Admin: 08/12/17 09:30 Dose: 30 mcg/min, 112.5 mls/hr Sodium Chloride (Nacl 0.9% 1000 Ml) 2,000 mls @ 0 mls/hr IV ONCE ONE Stop: 08/12/17 08:38 Thiamine HCl 100 mg/ Sodium (Chloride) 51 mls @ 100 mls/hr IV QDAY [facility] Sodium Bicarbonate 150 meq/ (Sterile Water) 1,150 mls @ 100 mls/hr IV DIRECT [facility] Sodium Chloride (Nacl 0.9% 500 Ml) 500 mls @ 0 mls/hr IV ONCE ONE Stop: 08/12/17 10:52 Sodium Chloride (Nacl 0.9% 500 Ml) 500 mls @ 0 mls/hr IV ONCE ONE Stop: 08/12/17 11:06 Lactated Ringer's (Lactated Ringers) 1,000 mls @ 999 mls/hr IV DIRECT [facility] Stop: 08/12/17 13:01 Insulin Human Lispro (Humalog) 0 unit SUB-Q Q6HR [facility]; Protocol Lorazepam (Ativan) 2 mg IV Q1HR PRN PRN Reason: CIWA-Ar 8-15 Lorazepam (Ativan) 4 mg IV Q15MIN PRN PRN Reason: CIWA-Ar >25 Morphine Sulfate (Morphine) 2 mg IV Q4H PRN PRN Reason: Pain, Moderate (4-6) Multivitamins (Theragran Tab) 1 each PO QDAY [facility] Naloxone HCl (Narcan 0.4 Mg/1 Ml) 0.1 mg IV Q2MIN PRN PRN Reason: Res Rate </= 8 or 02 SAT < 92% Ondansetron HCl (Zofran) 4 mg IV Q8H PRN PRN Reason: Nausea And Vomiting Paroxetine HCl (Paxil) 20 mg PO DAILY [facility] Last Admin: 08/12/17 10:00 Dose: Not Given Sodium Bicarbonate (Sodium Bicarbonate) 200 meq IV ONCE ONE Stop: 08/12/17 12:30 Sodium Bicarbonate (Sodium Bicarbonate) 50 meq IV ONCE ONE Stop: 08/12/17 12:35 Physical Examination Vital signs: Vital Signs Temp Pulse Resp BP 98.4 F 70 20 140/62 08/10/17 10:00 08/10/17 10:00 08/10/17 10:00 08/10/17 10:00 VITAL SIGNS: Reviewed. GENERAL: The patient appeared ill, moderate obese comfortable vital signs as documented. HEAD: No signs of head trauma. EYES: Pupils are equal. Extraocular motions intact. EARS: Hearing grossly intact. MOUTH: Oropharynx is normal. NECK: No adenopathy, no JVD. CHEST: Chest with clear breath sounds bilaterally. No wheezes, rales, or rhonchi. Diminished at the bases CARDIAC: Regular rate and rhythm. S1 and S2, without murmurs, gallops, or rubs. ABDOMEN: Soft, without detectable tenderness. Distended and tympanic No rebound or guarding, and no masses palpated. Bowel Sounds normal. MUSCULOSKELETAL: Good range of motion of all major joints. Extremities without clubbing, cyanosis or edema. Right groin ecchymosis and swelling. Dorsalis pulse on the left is detected by doppler, no ischemic digits NEUROLOGIC EXAM: Encephalopathic No focal deficits. Moving all 4 limbs, agitated Non-focal PSYCHIATRIC: Unable to assess SKIN: Ecchymosis of the right femoral area. Results - Laboratory Findings CBC and BMP: 08/14/17 05:00 08/14/17 11:28 ABG POC ABG pH 6.952 (7.35-7.45) L 08/12/17 08:48 POC ABG pCO2 49.1 (35-45) H 08/12/17 08:48 POC ABG pO2 76 (80-105) L 08/12/17 08:48 POC ABG HCO3 10.8 08/12/17 08:48 POC ABG Total CO2 12 08/12/17 08:48 POC ABG O2 Sat 84 08/12/17 08:48 PT/INR, D-dimer PT 15.3 Sec. (12.2-14.9) H 08/11/17 20:00 INR 1.15 (0.87-1.13) H 08/11/17 20:00 Abnormal lab findings: Abnormal Labs 08/10/17 08/10/17 08/10/17 10:05 10:05 10:05 WBC RBC Hgb POC Hgb Hct POC Hct MCV 97 H MCH 33 H RDW Plt Count Lymph % (Auto) Lymph # Seg Neutrophils % 72.9 H Seg Neutrophils # PT 11.6 L INR 0.81 L APTT Activated Clotting Time POC ABG pH POC ABG pCO2 POC ABG pO2 Chloride Carbon Dioxide Creatinine 0.7 L Glucose 196 H POC Glucose Calcium Crossmatch 08/11/17 08/11/17 08/11/17 06:50 07:03 09:50 WBC RBC Hgb POC Hgb Hct POC Hct MCV MCH RDW Plt Count Lymph % (Auto) Lymph # Seg Neutrophils % Seg Neutrophils # PT INR APTT Activated Clotting Time POC ABG pH 7.270 L POC ABG pCO2 49.1 H POC ABG pO2 117 H Chloride Carbon Dioxide Creatinine Glucose POC Glucose 160 H Calcium Crossmatch See Detail 08/11/17 08/11/17 08/11/17 10:52 11:12 12:16 WBC RBC Hgb POC Hgb Hct POC Hct MCV MCH RDW Plt Count Lymph % (Auto) Lymph # Seg Neutrophils % Seg Neutrophils # PT INR APTT Activated Clotting Time 191 H 153 H POC ABG pH POC ABG pCO2 POC ABG pO2 Chloride Carbon Dioxide Creatinine Glucose POC Glucose 176 H Calcium Crossmatch 08/11/17 08/11/17 08/11/17 12:27 13:07 14:39 WBC RBC Hgb POC Hgb 9.9 L 8.5 L Hct POC Hct 29 L 25 L MCV MCH RDW Plt Count Lymph % (Auto) Lymph # Seg Neutrophils % Seg Neutrophils # PT INR APTT Activated Clotting Time 186 H POC ABG pH POC ABG pCO2 POC ABG pO2 Chloride Carbon Dioxide Creatinine Glucose POC Glucose 183 H 197 H Calcium Crossmatch 08/11/17 08/11/17 08/11/17 14:46 16:18 17:57 WBC 12.7 H RBC 3.00 L Hgb 9.5 L D POC Hgb Hct 28.3 L D POC Hct MCV MCH RDW 16.3 H Plt Count 105 L Lymph % (Auto) 6.7 L Lymph # 0.8 L Seg Neutrophils % 86.3 H Seg Neutrophils # 10.9 H PT INR APTT Activated Clotting Time 164 H POC ABG pH POC ABG pCO2 POC ABG pO2 Chloride Carbon Dioxide Creatinine Glucose POC Glucose 192 H Calcium Crossmatch 08/11/17 08/11/17 08/11/17 17:57 20:00 20:00 WBC RBC Hgb 10.2 L POC Hgb Hct 31.1 L POC Hct MCV MCH RDW Plt Count 117 L Lymph % (Auto) Lymph # Seg Neutrophils % Seg Neutrophils # PT 15.3 H INR 1.15 H APTT 97.7 H* Activated Clotting Time POC ABG pH POC ABG pCO2 POC ABG pO2 Chloride 117.4 H Carbon Dioxide 18 L Creatinine 0.7 L Glucose 143 H POC Glucose Calcium 6.4 L D Crossmatch 08/12/17 08/12/17 08/12/17 03:30 03:50 03:50 WBC RBC Hgb 9.2 L 9.1 L POC Hgb Hct 27.5 L 27.2 L POC Hct MCV MCH RDW Plt Count Lymph % (Auto) Lymph # Seg Neutrophils % Seg Neutrophils # PT INR APTT Activated Clotting Time POC ABG pH POC ABG pCO2 POC ABG pO2 Chloride 113.5 H Carbon Dioxide 13 L Creatinine Glucose 243 H POC Glucose Calcium 6.3 L Crossmatch 08/12/17 08/12/17 07:36 08:48 WBC RBC Hgb POC Hgb Hct POC Hct MCV MCH RDW Plt Count Lymph % (Auto) Lymph # Seg Neutrophils % Seg Neutrophils # PT INR APTT Activated Clotting Time POC ABG pH 6.952 L POC ABG pCO2 49.1 H POC ABG pO2 76 L Chloride Carbon Dioxide Creatinine Glucose POC Glucose 246 H Calcium Crossmatch Assessment and Plan Acute Hypoxic Respiratory failure Vasogenic Shock, Presumed Bleed WILLIAM Secondary to vasomotor nephropathy Severe Metabolic Acidosis Acute blood loss anemia PVD s/p right femoral end-arterectomy Acute encephalopathy s/p Massive blood transfusion Leukocytosis -Intubate, obtain CVC -Blood cultures, UA and culture -Empiric antibiotics -Once intubated adjust minute ventilation for better gas exchange -Continue with volume resuscitation -Administer FFp, Platelets and electrolytes in view of massive blood transfusion -CT abdomen, to r/o ischemic gut vs continued leak for endarterectomy site -Discontinue heparin infusion -Aspiration precauitons -VAP bundle once intubated -Agitation and analgesia. Avoid benzodiazepines -Avoid nephrotoxic agents, place indwelling barrientos catheter -Place NGT to decompress the stomach/bowel -Renal consult -Discussed with vascular service extensively Called patient's and daughter for updates Prognosis is guarded with high risk of decompensation from a hemodynamic standpoint and even . Critical care time in (mins) excluding proc time.: 65 Critical care attestation.: If time is entered above; I have spent that time in minutes in the direct care of this critically ill patient, excluding procedure time.
--- NOTE | 2017-08-12 13:04 | Event Note ---
Date: 08/12/17 Post operative femoral endarterectomy, with stents. Patient was admitted to the ICU last night for post operative management and evaluation. Called overnight that patient was hypotensive, recieving blood products and volume. Vascular service had the patient on a vasopressin infusion. Radial outline, peripheral IVs. Medina catheter in with urine output which was marginal ABG done this morning shows severe acidosis, metabolic with some hypercapnic respiratory failure. Vascular access was obtained but was "lost" Needs to be intubated. Paged primary attending. Decision was made to proceed with intubation. Patient's family called, no response. Patient intubated, RIJ access placed and CTscan to be done to further determine management. Suspect he has ischemic gut.
--- NOTE | 2017-08-12 13:04 | Procedure Note ---
Date of procedure: 08/12/17 Pre-op diagnosis: Severe metabolic acidosis, hypotension, encephalopathy Post-op diagnosis: same Procedure: Endotracheal intubation using Mac4 blade. One attempt. Vocal chords visualized. Copious posterior pharyngeal secretions Size 8 ETT placed. Good color change, equal breath sounds bilaterally Anesthesia: other (RSI with midazolam and rocuronium) Surgeon: BELIA MAURICIO Estimated blood loss: none Pathology: none Condition: critical Disposition: ICU
--- NOTE | 2017-08-12 13:05 | Consultation ---
History of Present Illness - Reason for Consult Consult date: 08/12/17 Respiratory failure Requesting physician: SHARLA VAIL - History of Present Illness Patient is 66 year old male with past medical history of hypertension, Type 2 DM , hyperlipidemia, CAD, PAD, who underwent elective vascular procedure for R STENCIL TYPIST , and is postop day 1 status post complex femoral endarterectomy and iliac artery stenting. Patient become hypotensive multiple fluid resuscitation and blood products. Also began to exhibit some altered mental status for which were consulted. On arrival the patient appears to be in moderate respiratory distress which saturation of 83 on 50% Ventimask. He is unable to provide much information. He does inform me that he drinks alcohol but not quantified. He denied any chest pain, nausea vomiting or diarrhea. He is currently on vasopressin. Past History Past Medical History: CAD, COPD, diabetes, hypertension, hyperlipidemia Past Surgical History: Other (endarterectomy) Social history: smoking, alcohol abuse Family history: no significant family history Medications and Allergies Allergies Allergy/AdvReac Type Severity Reaction Status Date / Time Sulfa (Sulfonamide Allergy rash, Verified 08/05/17 10:59 Antibiotics) swelling Home Medications Medication Instructions Recorded Confirmed Last Taken Type Amlodipine Besylate [Norvasc] 10 mg PO DAILY 05/05/17 08/05/17 08/11/17 05:30 History Aspirin [Lo-Dose Aspirin EC] 81 mg PO DAILY 05/05/17 08/05/17 08/11/17 05:30 History Cilostazol [Pletal] 100 mg PO BID 05/05/17 08/05/17 08/11/17 05:30 History Diclofenac Sodium 75 mg PO DAILY 05/05/17 08/05/17 08/11/17 05:30 History Labetalol HCl 300 mg PO TID 05/05/17 08/05/17 08/11/17 05:30 History PARoxetine [Paxil] 20 mg PO DAILY 05/05/17 08/05/17 08/11/17 05:30 History Valsartan-Hctz 320-25 mg Tab 1 tab PO DAILY 05/05/17 08/05/17 08/11/17 05:30 History metFORMIN [Glucophage] 500 mg PO BID 05/05/17 08/11/17 08/10/17 History HYDROcodone/APAP 7.5-325 [[place] 1 each PO Q6HR PRN #20 tablet 05/12/17 08/05/17 Unknown Rx 7.5/325] Active Meds: Active Medications Acetaminophen/Hydrocodone Bitart ([place] 5/325) 2 each PO Q6H PRN PRN Reason: Pain, Moderate (4-6) Amlodipine Besylate (Norvasc) 10 mg PO DAILY [facility] Last Admin: 08/12/17 12:41 Dose: Not Given Aspirin (Halfprin Ec) 81 mg PO DAILY [facility] Dextrose (D50w (25gm) Syringe) 50 ml IV PRN PRN PRN Reason: Hypoglycemia Folic Acid (Folvite) 1 mg PO QDAY [facility] Hydromorphone HCl (Dilaudid) 0.25 mg IV Q10M PRN PRN Reason: Pain , Severe (7-10) Last Admin: 08/11/17 23:08 Dose: 0.25 mg Sodium Chloride (Nacl 0.9% 1000 Ml) 1,000 mls @ 100 mls/hr IV DIRECT [facility] Last Admin: 08/11/17 21:19 Dose: 500 mls/hr Vasopressin 20 unit/ Sodium (Chloride) 101 mls @ 9.09 mls/hr IV TITR [facility]; Protocol Last Admin: 08/12/17 11:30 Dose: 0.03 units/min, 9.09 mls/hr Heparin Sodium/Sodium Chloride (Heparin/ 0.45% Nacl-25,000 Unit/500 Ml) 25,000 unit in 500 mls @ 30 mls/hr IV TITR PAN[facility]O; Protocol Last Admin: 08/11/17 17:05 Dose: 1,500 units/hr, 30 mls/hr Norepinephrine (Levophed Drip 4 Mg/Ns 250 Ml) 4 mg in 250 mls @ 7.5 mls/hr IV TITR PANCH[facility]O; Protocol Last Admin: 08/12/17 09:30 Dose: 30 mcg/min, 112.5 mls/hr Sodium Chloride (Nacl 0.9% 1000 Ml) 2,000 mls @ 0 mls/hr IV ONCE ONE Stop: 08/12/17 08:38 Thiamine HCl 100 mg/ Sodium (Chloride) 51 mls @ 100 mls/hr IV QDAY [facility] Sodium Bicarbonate 150 meq/ (Sterile Water) 1,150 mls @ 100 mls/hr IV DIRECT PAN[facility]O Sodium Chloride (Nacl 0.9% 500 Ml) 500 mls @ 0 mls/hr IV ONCE ONE Stop: 08/12/17 10:52 Sodium Chloride (Nacl 0.9% 500 Ml) 500 mls @ 0 mls/hr IV ONCE ONE Stop: 08/12/17 11:06 Lactated Ringer's (Lactated Ringers) 1,000 mls @ 999 mls/hr IV DIRECT [facility] Stop: 08/12/17 13:01 Argatroban 250 mg/ Sodium (Chloride) 250 mls @ 12.41 mls/hr IV TITR PAN[facility]O; Protocol Insulin Human Lispro (Humalog) 0 unit SUB-Q Q6HR PAN[facility]; Protocol Lorazepam (Ativan) 2 mg IV Q1HR PRN PRN Reason: CIWA-Ar 8-15 Lorazepam (Ativan) 4 mg IV Q15MIN PRN PRN Reason: CIWA-Ar >25 Morphine Sulfate (Morphine) 2 mg IV Q4H PRN PRN Reason: Pain, Moderate (4-6) Multivitamins (Theragran Tab) 1 each PO QDAY [facility] Naloxone HCl (Narcan 0.4 Mg/1 Ml) 0.1 mg IV Q2MIN PRN PRN Reason: Res Rate </= 8 or 02 SAT < 92% Ondansetron HCl (Zofran) 4 mg IV Q8H PRN PRN Reason: Nausea And Vomiting Paroxetine HCl (Paxil) 20 mg PO DAILY [facility] Last Admin: 08/12/17 10:00 Dose: Not Given Sodium Bicarbonate (Sodium Bicarbonate) 200 meq IV ONCE ONE Stop: 08/12/17 12:30 Sodium Bicarbonate (Sodium Bicarbonate) 50 meq IV ONCE ONE Stop: 08/12/17 12:35 Review of Systems All systems: negative Constitutional: fatigue, weakness, lethargy Respiratory: shortness of breath Gastrointestinal: abdominal pain, other (disposition) Integumentary: bullae Neurological: weakness, change in mentation Exam - Physical Exam Narrative exam: VITAL SIGNS: Reviewed. GENERAL: The patient appeared ill, moderate obese comfortable vital signs as documented. HEAD: No signs of head trauma. EYES: Pupils are equal. Extraocular motions intact. EARS: Hearing grossly intact. MOUTH: Oropharynx is normal. NECK: No adenopathy, no JVD. CHEST: Chest with clear breath sounds bilaterally. No wheezes, rales, or rhonchi. CARDIAC: Regular rate and rhythm. S1 and S2, without murmurs, gallops, or rubs. VASCULAR: No Edema. Peripheral pulses normal and equal in all extremities. ABDOMEN: Soft, without detectable tenderness. Distended and tympanic No rebound or guarding, and no masses palpated. Bowel Sounds normal. MUSCULOSKELETAL: Good range of motion of all major joints. Extremities without clubbing, cyanosis or edema. NEUROLOGIC EXAM: Encephalopathic No focal sensory or strength deficits. Speech normal. Follows commands. PSYCHIATRIC: Mood normal. SKIN: Ecchymosis of the right femoral area. - Constitutional Vitals: Temp Pulse Resp BP Pulse Ox 98.2 F 101 H 50 H 70/45 100 08/12/17 09:02 08/12/17 11:14 08/12/17 09:35 08/12/17 12:41 08/12/17 11:14 Results - Labs CBC & Chem 7: 08/13/17 05:46 08/13/17 05:46 Labs: Abnormal lab results 08/11/17 08/11/17 08/11/17 Range/Units 06:50 12:16 12:27 WBC (4.5-11.0) K/mm3 RBC (3.65-5.03) M/mm3 Hgb (11.8-15.2) gm/dl POC Hgb (12-17) Hct (35.5-45.6) % POC Hct (38-51) RDW (13.2-15.2) % Plt Count (140-440) K/mm3 Lymph % (Auto) (13.4-35.0) % Lymph # (1.2-5.4) K/mm3 Seg Neutrophils % (40.0-70.0) % Seg Neutrophils # (1.8-7.7) K/mm3 PT (12.2-14.9) Sec. INR (0.87-1.13) APTT (24.2-36.6) Sec. Activated Clotting Time 153 H 186 H (74-137) POC ABG pH (7.35-7.45) POC ABG pCO2 (35-45) POC ABG pO2 (80-105) Chloride (98-107) mmol/L Carbon Dioxide (22-30) mmol/L Creatinine (0.8-1.5) mg/dL Glucose (75-100) mg/dL POC Glucose (70-105) Calcium (8.4-10.2) mg/dL Crossmatch See Detail 08/11/17 08/11/17 08/11/17 Range/Units 13:07 14:39 14:46 WBC (4.5-11.0) K/mm3 RBC (3.65-5.03) M/mm3 Hgb (11.8-15.2) gm/dl POC Hgb 9.9 L 8.5 L (12-17) Hct (35.5-45.6) % POC Hct 29 L 25 L (38-51) RDW (13.2-15.2) % Plt Count (140-440) K/mm3 Lymph % (Auto) (13.4-35.0) % Lymph # (1.2-5.4) K/mm3 Seg Neutrophils % (40.0-70.0) % Seg Neutrophils # (1.8-7.7) K/mm3 PT (12.2-14.9) Sec. INR (0.87-1.13) APTT (24.2-36.6) Sec. Activated Clotting Time 164 H (74-137) POC ABG pH (7.35-7.45) POC ABG pCO2 (35-45) POC ABG pO2 (80-105) Chloride (98-107) mmol/L Carbon Dioxide (22-30) mmol/L Creatinine (0.8-1.5) mg/dL Glucose (75-100) mg/dL POC Glucose 183 H 197 H (70-105) Calcium (8.4-10.2) mg/dL Crossmatch 08/11/17 08/11/17 08/11/17 Range/Units 16:18 17:57 17:57 WBC 12.7 H (4.5-11.0) K/mm3 RBC 3.00 L (3.65-5.03) M/mm3 Hgb 9.5 L D (11.8-15.2) gm/dl POC Hgb (12-17) Hct 28.3 L D (35.5-45.6) % POC Hct (38-51) RDW 16.3 H (13.2-15.2) % Plt Count 105 L (140-440) K/mm3 Lymph % (Auto) 6.7 L (13.4-35.0) % Lymph # 0.8 L (1.2-5.4) K/mm3 Seg Neutrophils % 86.3 H (40.0-70.0) % Seg Neutrophils # 10.9 H (1.8-7.7) K/mm3 PT (12.2-14.9) Sec. INR (0.87-1.13) APTT (24.2-36.6) Sec. Activated Clotting Time (74-137) POC ABG pH (7.35-7.45) POC ABG pCO2 (35-45) POC ABG pO2 (80-105) Chloride 117.4 H (98-107) mmol/L Carbon Dioxide 18 L (22-30) mmol/L Creatinine 0.7 L (0.8-1.5) mg/dL Glucose 143 H (75-100) mg/dL POC Glucose 192 H (70-105) Calcium 6.4 L D (8.4-10.2) mg/dL Crossmatch 08/11/17 08/11/17 08/12/17 Range/Units 20:00 20:00 03:30 WBC (4.5-11.0) K/mm3 RBC (3.65-5.03) M/mm3 Hgb 10.2 L 9.2 L (11.8-15.2) gm/dl POC Hgb (12-17) Hct 31.1 L 27.5 L (35.5-45.6) % POC Hct (38-51) RDW (13.2-15.2) % Plt Count 117 L (140-440) K/mm3 Lymph % (Auto) (13.4-35.0) % Lymph # (1.2-5.4) K/mm3 Seg Neutrophils % (40.0-70.0) % Seg Neutrophils # (1.8-7.7) K/mm3 PT 15.3 H (12.2-14.9) Sec. INR 1.15 H (0.87-1.13) APTT 97.7 H* (24.2-36.6) Sec. Activated Clotting Time (74-137) POC ABG pH (7.35-7.45) POC ABG pCO2 (35-45) POC ABG pO2 (80-105) Chloride (98-107) mmol/L Carbon Dioxide (22-30) mmol/L Creatinine (0.8-1.5) mg/dL Glucose (75-100) mg/dL POC Glucose (70-105) Calcium (8.4-10.2) mg/dL Crossmatch 08/12/17 08/12/17 08/12/17 Range/Units 03:50 03:50 07:36 WBC (4.5-11.0) K/mm3 RBC (3.65-5.03) M/mm3 Hgb 9.1 L (11.8-15.2) gm/dl POC Hgb (12-17) Hct 27.2 L (35.5-45.6) % POC Hct (38-51) RDW (13.2-15.2) % Plt Count (140-440) K/mm3 Lymph % (Auto) (13.4-35.0) % Lymph # (1.2-5.4) K/mm3 Seg Neutrophils % (40.0-70.0) % Seg Neutrophils # (1.8-7.7) K/mm3 PT (12.2-14.9) Sec. INR (0.87-1.13) APTT (24.2-36.6) Sec. Activated Clotting Time (74-137) POC ABG pH (7.35-7.45) POC ABG pCO2 (35-45) POC ABG pO2 (80-105) Chloride 113.5 H (98-107) mmol/L Carbon Dioxide 13 L (22-30) mmol/L Creatinine (0.8-1.5) mg/dL Glucose 243 H (75-100) mg/dL POC Glucose 246 H (70-105) Calcium 6.3 L (8.4-10.2) mg/dL Crossmatch 08/12/17 Range/Units 08:48 WBC (4.5-11.0) K/mm3 RBC (3.65-5.03) M/mm3 Hgb (11.8-15.2) gm/dl POC Hgb (12-17) Hct (35.5-45.6) % POC Hct (38-51) RDW (13.2-15.2) % Plt Count (140-440) K/mm3 Lymph % (Auto) (13.4-35.0) % Lymph # (1.2-5.4) K/mm3 Seg Neutrophils % (40.0-70.0) % Seg Neutrophils # (1.8-7.7) K/mm3 PT (12.2-14.9) Sec. INR (0.87-1.13) APTT (24.2-36.6) Sec. Activated Clotting Time (74-137) POC ABG pH 6.952 L (7.35-7.45) POC ABG pCO2 49.1 H (35-45) POC ABG pO2 76 L (80-105) Chloride (98-107) mmol/L Carbon Dioxide (22-30) mmol/L Creatinine (0.8-1.5) mg/dL Glucose (75-100) mg/dL POC Glucose (70-105) Calcium (8.4-10.2) mg/dL Crossmatch - Imaging and Cardiology Abdominal x-ray: pending CT scan - abdomen: pending Assessment and Plan Patient is 66 year old male with past medical history of hypertension, Type 2 DM , hyperlipidemia, CAD, PAD, who underwent elective vascular procedure for R STENCIL TYPIST , and is postop day 1 status post complex femoral endarterectomy and iliac artery stenting. Patient become hypotensive multiple fluid resuscitation and blood products. Also began to exhibit some altered mental status for which were consulted. On arrival the patient appears to be in moderate respiratory distress which saturation of 83 on 50% Ventimask. He is unable to provide much information. He does inform me that he drinks alcohol but not quantified. He denied any chest pain, nausea vomiting or diarrhea. He is currently on vasopressin. Acute Hypoxic Respiratory failure Vasogenic Shock, Presumed Bleed WILLIAM Secondary to vasomotor nephropathy Severe Metabolic Acidosis ACUTE BLOOD LOSS ANEMIA WITH REFRACTORY EVAL FOR BLEED Leukocytosis PLAN: STAT ABG, CHEST XRAY GIVE 2 liters FLUIDS Discussed with Radiation Physicist Insert Medina for accurate I/O GIVE 2 AMPS OF BICARB Discussed with fence supervisor and vascaular surgeon Discontinue Enoxaparin Dvt and GI prophy
--- NOTE | 2017-08-12 13:05 | Procedure Note ---
Date of procedure: 08/12/17 Pre-op diagnosis: Hypotension requiring acess for vasoactive substances Post-op diagnosis: same Procedure: Right IJ CVC placement under ultrasound guidance Consent obtained. [place] precautions addressed. Sterile technique with full barrier precautions. Patient placed flat in bed. Under ultrasound guidance the right IJ was visualized. Cannulated, dark blood aspirated. Guidewire passed. A stab wound created, dilated. Triple lumen 16cm, CVC placed. Guidewire removed. Venous blood aspirated from all ports, flushed with saline. Secured placed, sutures and sterile dressing placed. No immediate complications. CXR ordered. Anesthesia: local Estimated blood loss: minimal Pathology: none Condition: critical Disposition: ICU
[2017-08-12] MEDS ORDERED: NACL 0.9% IR ONE (13:15)
[2017-08-12] MEDS ORDERED: HEPARIN 10,000 UNITS/10 ML 4,000 UNIT in NACL 0.9% 1000 ML 1,000 ML IR ONE (13:15)
[2017-08-12] MEDS ORDERED: OMNIPAQUE IV ONE (13:15)
[2017-08-12] MEDS ORDERED: NACL 0.9% IV ONE (13:15)
[2017-08-12] MEDS ORDERED: ARTIFICIAL TEARS OPHTH OINT OU PRN (13:21)
[2017-08-12] MEDS ORDERED: VASELINE LIP THERAPY TP PRN (13:21)
[2017-08-12] MEDS ORDERED: NACL 0.9% 100 ML ONE (13:39)
[2017-08-12] MEDS ORDERED: NACL 0.9% 500 ML IV SCH (14:00)
--- NOTE | 2017-08-12 14:39 | Post Operative Note ---
Pre-op diagnosis: postoperative hemorrhage, ruptured pseudoaneurysm left groin/ external iliac Post-op diagnosis: same Findings: Extravasation from the occipital common femoral artery below the previously placed Viabond stent graft tracking retrograde into the lower abdomen and pelvis successfully treated by deployment of new Viabond stent graft across the inguinal ligament into the common femoral artery. Procedure: #1 placement of the Viabond stent graft right common femoral artery #2 diagnostic single leg runoff left leg, change in condition #3 duplex guided cannulation right common femoral artery Anesthesia: MARICEL Surgeon: ELEANOR HALEY Garbage Truck Helper: ARI MORROW Estimated blood loss: minimal Pathology: none Condition: critical Disposition: ICU
[2017-08-12] MEDS ORDERED: NEO SYNEPHRINE ONE (14:54)
[2017-08-12] MEDS ORDERED: NEO SYNEPHRINE/NS Syringe(OR USE) IV ONE (14:54)
--- NOTE | 2017-08-12 15:14 | Progress Note ---
Assessment and Plan The patient ultimately was intubated for airway protection. A CTA to the abdomen and pelvis was ordered which demonstrated retroperitoneal bleeding arising from the inferior aspect of the stent on his right external iliac artery. He was subsequently taken to the OR for definitive treatment. Subjective Date of service: 08/12/17 Principal diagnosis: PVD Interval history: Patient is postop day 1 status post complex femoral endarterectomy and iliac artery stenting. Overnight, the patient was hypertensive and treated with blood products and fluid resuscitation in addition to pressors. This morning, Central venous catheter was placed. Patient continues to remain hypotensive although he he is alert. He continues to complain of pain Objective - Constitutional Vitals: Vital Signs - 12hr 08/12/17 08/12/17 08/12/17 03:15 03:30 03:46 Temperature Pulse Rate 98 H 101 H 104 H Respiratory 15 11 L 20 Rate Blood Pressure 78/51 78/51 75/48 O2 Sat by Pulse 100 98 100 Oximetry 08/12/17 08/12/17 08/12/17 03:55 04:00 04:16 Temperature 98.9 F Pulse Rate 111 H 107 H Respiratory 27 H 24 Rate Blood Pressure 81/34 107/72 O2 Sat by Pulse 99 100 Oximetry 08/12/17 08/12/17 08/12/17 04:30 04:45 05:00 Temperature Pulse Rate 110 H 114 H 113 H Respiratory 26 H 18 36 H Rate Blood Pressure 72/49 63/45 63/45 O2 Sat by Pulse 100 98 95 Oximetry 08/12/17 08/12/17 08/12/17 05:16 05:30 05:46 Temperature Pulse Rate 114 H 115 H 111 H Respiratory 26 H 19 31 H Rate Blood Pressure 63/45 76/43 O2 Sat by Pulse 95 96 93 Oximetry 08/12/17 08/12/17 08/12/17 06:00 06:16 06:30 Temperature Pulse Rate 110 H 108 H 104 H Respiratory 22 28 H 24 Rate Blood Pressure 86/47 86/47 65/36 O2 Sat by Pulse 95 92 91 Oximetry 08/12/17 08/12/17 08/12/17 06:46 07:00 07:16 Temperature Pulse Rate 93 H 87 95 H Respiratory 14 22 21 Rate Blood Pressure 66/30 66/30 75/37 O2 Sat by Pulse 86 88 93 Oximetry 08/12/17 08/12/1708/12/18 07:30 07:46 08:00 Temperature Pulse Rate 85 88 101 H Respiratory 22 16 27 H Rate Blood Pressure 76/41 76/41 76/41 O2 Sat by Pulse 83 L 94 91 Oximetry 08/12/17 08/12/17 08/12/17 08:16 08:30 08:46 Temperature Pulse Rate 84 84 86 Respiratory 20 23 19 Rate Blood Pressure 69/42 69/42 69/42 O2 Sat by Pulse 88 93 97 Oximetry 08/12/17 08/12/17 08/12/17 09:00 09:02 09:16 Temperature 98.2 F Pulse Rate 106 H 107 H Respiratory 20 19 Rate Blood Pressure 126/57 126/67 O2 Sat by Pulse 100 100 Oximetry 08/12/17 08/12/17 08/12/17 09:30 09:35 09:44 Temperature Pulse Rate 105 H 105 H Respiratory 22 50 H Rate Blood Pressure 84/29 74/22 O2 Sat by Pulse 100 100 100 Oximetry 08/12/17 08/12/17 08/12/17 09:46 10:00 10:16 Temperature Pulse Rate 91 H 90 94 H Respiratory 26 H 26 H 30 H Rate Blood Pressure 87/34 87/34 91/32 O2 Sat by Pulse 100 96 98 Oximetry 08/12/17 08/12/17 08/12/17 10:30 10:46 11:00 Temperature Pulse Rate 89 85 104 H Respiratory 31 H 22 22 Rate Blood Pressure 91/32 O2 Sat by Pulse 100 100 Oximetry 08/12/17 08/12/17 08/12/17 11:14 11:16 12:41 Temperature Pulse Rate 101 H 99 H Respiratory 22 Rate Blood Pressure 53/35 70/45 O2 Sat by Pulse 100 Oximetry General appearance: Present: mild distress - EENT Eyes: PERRL ENT: hearing intact - Neck Neck: supple, normal ROM - Respiratory Respiratory effort: labored - Breasts Breasts: deferred Extremities: abnormal - Gastrointestinal General gastrointestinal: Present: distended, other (firm) Rectal Exam: deferred - Genitourinary Male genitourinary: deferred - Labs CBC & Chem 7: 08/12/17 03:50 08/12/17 03:50 Labs: Abnormal lab results 08/11/17 08/11/17 08/11/17 Range/Units 06:50 12:16 12:27 WBC (4.5-11.0) K/mm3 RBC (3.65-5.03) M/mm3 Hgb (11.8-15.2) gm/dl POC Hgb (12-17) Hct (35.5-45.6) % POC Hct (38-51) RDW (13.2-15.2) % Plt Count (140-440) K/mm3 Lymph % (Auto) (13.4-35.0) % Lymph # (1.2-5.4) K/mm3 Seg Neutrophils % (40.0-70.0) % Seg Neutrophils # (1.8-7.7) K/mm3 PT (12.2-14.9) Sec. INR (0.87-1.13) APTT (24.2-36.6) Sec. Activated Clotting Time 153 H 186 H (74-137) POC ABG pH (7.35-7.45) POC ABG pCO2 (35-45) POC ABG pO2 (80-105) Chloride (98-107) mmol/L Carbon Dioxide (22-30) mmol/L Creatinine (0.8-1.5) mg/dL Glucose (75-100) mg/dL POC Glucose (70-105) Calcium (8.4-10.2) mg/dL Crossmatch See Detail 08/11/17 08/11/17 08/11/17 Range/Units 13:07 14:39 14:46 WBC (4.5-11.0) K/mm3 RBC (3.65-5.03) M/mm3 Hgb (11.8-15.2) gm/dl POC Hgb 9.9 L 8.5 L (12-17) Hct (35.5-45.6) % POC Hct 29 L 25 L (38-51) RDW (13.2-15.2) % Plt Count (140-440) K/mm3 Lymph % (Auto) (13.4-35.0) % Lymph # (1.2-5.4) K/mm3 Seg Neutrophils % (40.0-70.0) % Seg Neutrophils # (1.8-7.7) K/mm3 PT (12.2-14.9) Sec. INR (0.87-1.13) APTT (24.2-36.6) Sec. Activated Clotting Time 164 H (74-137) POC ABG pH (7.35-7.45) POC ABG pCO2 (35-45) POC ABG pO2 (80-105) Chloride (98-107) mmol/L Carbon Dioxide (22-30) mmol/L Creatinine (0.8-1.5) mg/dL Glucose (75-100) mg/dL POC Glucose 183 H 197 H (70-105) Calcium (8.4-10.2) mg/dL Crossmatch 08/11/17 08/11/17 08/11/17 Range/Units 16:18 17:57 17:57 WBC 12.7 H (4.5-11.0) K/mm3 RBC 3.00 L (3.65-5.03) M/mm3 Hgb 9.5 L D (11.8-15.2) gm/dl POC Hgb (12-17) Hct 28.3 L D (35.5-45.6) % POC Hct (38-51) RDW 16.3 H (13.2-15.2) % Plt Count 105 L (140-440) K/mm3 Lymph % (Auto) 6.7 L (13.4-35.0) % Lymph # 0.8 L (1.2-5.4) K/mm3 Seg Neutrophils % 86.3 H (40.0-70.0) % Seg Neutrophils # 10.9 H (1.8-7.7) K/mm3 PT (12.2-14.9) Sec. INR (0.87-1.13) APTT (24.2-36.6) Sec. Activated Clotting Time (74-137) POC ABG pH (7.35-7.45) POC ABG pCO2 (35-45) POC ABG pO2 (80-105) Chloride 117.4 H (98-107) mmol/L Carbon Dioxide 18 L (22-30) mmol/L Creatinine 0.7 L (0.8-1.5) mg/dL Glucose 143 H (75-100) mg/dL POC Glucose 192 H (70-105) Calcium 6.4 L D (8.4-10.2) mg/dL Crossmatch 08/11/17 08/11/17 08/12/17 Range/Units 20:00 20:00 03:30 WBC (4.5-11.0) K/mm3 RBC (3.65-5.03) M/mm3 Hgb 10.2 L 9.2 L (11.8-15.2) gm/dl POC Hgb (12-17) Hct 31.1 L 27.5 L (35.5-45.6) % POC Hct (38-51) RDW (13.2-15.2) % Plt Count 117 L (140-440) K/mm3 Lymph % (Auto) (13.4-35.0) % Lymph # (1.2-5.4) K/mm3 Seg Neutrophils % (40.0-70.0) % Seg Neutrophils # (1.8-7.7) K/mm3 PT 15.3 H (12.2-14.9) Sec. INR 1.15 H (0.87-1.13) APTT 97.7 H* (24.2-36.6) Sec. Activated Clotting Time (74-137) POC ABG pH (7.35-7.45) POC ABG pCO2 (35-45) POC ABG pO2 (80-105) Chloride (98-107) mmol/L Carbon Dioxide (22-30) mmol/L Creatinine (0.8-1.5) mg/dL Glucose (75-100) mg/dL POC Glucose (70-105) Calcium (8.4-10.2) mg/dL Crossmatch 08/12/17 08/12/17 08/12/17 Range/Units 03:50 03:50 07:36 WBC (4.5-11.0) K/mm3 RBC (3.65-5.03) M/mm3 Hgb 9.1 L (11.8-15.2) gm/dl POC Hgb (12-17) Hct 27.2 L (35.5-45.6) % POC Hct (38-51) RDW (13.2-15.2) % Plt Count (140-440) K/mm3 Lymph % (Auto) (13.4-35.0) % Lymph # (1.2-5.4) K/mm3 Seg Neutrophils % (40.0-70.0) % Seg Neutrophils # (1.8-7.7) K/mm3 PT (12.2-14.9) Sec. INR (0.87-1.13) APTT (24.2-36.6) Sec. Activated Clotting Time (74-137) POC ABG pH (7.35-7.45) POC ABG pCO2 (35-45) POC ABG pO2 (80-105) Chloride 113.5 H (98-107) mmol/L Carbon Dioxide 13 L (22-30) mmol/L Creatinine (0.8-1.5) mg/dL Glucose 243 H (75-100) mg/dL POC Glucose 246 H (70-105) Calcium 6.3 L (8.4-10.2) mg/dL Crossmatch 08/12/17 Range/Units 08:48 WBC (4.5-11.0) K/mm3 RBC (3.65-5.03) M/mm3 Hgb (11.8-15.2) gm/dl POC Hgb (12-17) Hct (35.5-45.6) % POC Hct (38-51) RDW (13.2-15.2) % Plt Count (140-440) K/mm3 Lymph % (Auto) (13.4-35.0) % Lymph # (1.2-5.4) K/mm3 Seg Neutrophils % (40.0-70.0) % Seg Neutrophils # (1.8-7.7) K/mm3 PT (12.2-14.9) Sec. INR (0.87-1.13) APTT (24.2-36.6) Sec. Activated Clotting Time (74-137) POC ABG pH 6.952 L (7.35-7.45) POC ABG pCO2 49.1 H (35-45) POC ABG pO2 76 L (80-105) Chloride (98-107) mmol/L Carbon Dioxide (22-30) mmol/L Creatinine (0.8-1.5) mg/dL Glucose (75-100) mg/dL POC Glucose (70-105) Calcium (8.4-10.2) mg/dL Crossmatch
[2017-08-12] MEDS: fentaNYL DRIP Premix 2,000 MCG/100 ML BAG IV SCH (16:20)
[2017-08-12] MEDS ORDERED: NACL 0.9% 500 ML 500 ML IV SCH (16:38)
--- NOTE | 2017-08-12 16:50 | Event Note ---
Date: 08/12/17 Post operative discussions with vascular surgery and general surgery at the bedside. Renal consulted for acute renal failure
[2017-08-12] MEDS: SODIUM BICARBONATE 150 MEQ in STERILE WATER 1,000 ML IV SCH (16:56)
--- NOTE | 2017-08-12 17:35 | Operative Report ---
Operative Report Operative Report: operative note: Date: 08/12/2017 Preoperative diagnosis: Chronic right limb ischemia with life limiting short distance claudication Postoperative diagnosis: Same. Operation: Right common femoral endarterectomy with patch angioplasty. Bilateral iliac angiogram. Right external iliac stenting. Bilateral common iliac stenting. Ultrasound-guided left femoral access. Surgeon: Raquel Sam. Asst.: Henry Reveles Anesthesia: Gen. EBL: 1700 mL Replacement: 4 units PRBC, 4500 mL crystalloids Findings: Stenosis of bilateral common iliac arteries, severely stenotic right external iliac artery, right external iliac dissection. Indications: 66-year-old gentleman with complaints of short distance claudication. He had previous left common femoral endarterectomy with iliac stenting and that improved symptoms on the left side. Now he came for sitting procedure to be performed on the right side. Patient had CT angiogram within 3 months ago that showed right common femoral occlusion, external iliac stenosis. He did not have any studies after left sided repair. He was explained all risks, benefits and alternatives of procedure and he chose to proceed, signed informed consent. Operative details: Patient was brought to the operating room and placed in supine position. He was prepped and draped in sterile fashion circumferentially left lower extremity. Timeout was performed. Incision was made with skin blade in the left groin area in the vertical fashion. It was carried down through subcutaneous tissue with electrocautery. Fascia was incised and femoral artery dissected. Superficial femoral artery, profunda and proximal common femoral artery/external iliac was taken on vessel loops for proximal and distal control. Patient was heparinized with 7000 units of heparin and allowed 3 minutes to circulate. Proximal control was also gained with a Satinsky clamp. Arteriotomy was created with 11 blade and carried Down with Milian scissors. Using DeBakey pickups and Cygnet elevator common femoral endarterectomy was performed. Eversion technique was used for plaque removal from profunda and SFA. Plaque also was cleaned proximally using mosquito clamp and removed from just below proximal control clamp. Vessels were flushed. Bovine pericardium patch was used for patch angioplasty sizing 0.8 x 8cm. we used 50 C1 Prolene stitch in circumferential fashion. Lumen was flushed before stitch completion. Repair stitches were used for hemostasis. A second part of our procedure was iliac stenting. Micropuncture needle was used to access in the middle patch, it was attempted to advance micropuncture wire, however it was not advancing beyond proximal end of endarterectomized segment. After few attempts we decided to re-clamp was proximal and distal control of common femoral artery and perform incision longitudinally on top of created patch to visualize our endpoint in maneuver wire and the sheath into external iliac artery. After few attempts I advanced sheath and the wire however it creates a dissection plane. At this point we attempted the wire to find a true lumen and attempt at advancing sheath under direct vision however it was unsuccessful. Then we prepped contralateral groin and under ultrasound guidance accessed left common femoral artery was micropuncture needle , advanced micropuncture wire, placed micropuncture sheath. Under fluoroscopy exchanged sheath into 6 Barbadian access sheath and then advanced Cat wire into aorta. Then using Omni Flush catheter window at the contralateral side, then Omni Flush was exchanged to vertebral catheter and that was attempted to be maneuvered through vessel loop of proximal control on the right side. It was unsuccessful and then we attempted to advance balloon up and over to create proximal control and being able to get the wire by Deflux. It was unsuccessful to. Eventually we used upper and lower the 18 wire and that slipped into the contralateral side. We were able to grab that and created by Deflux. We will maneuvered vertebral catheter from the right side, removed gauge and were and using Bentson wire was flipped into aorta through true lumen. At this moment but had bilateral access was wires through iliac arteries into distal aorta. We removed a catheter from the right side and placed 8 Barbadian access sheath along into the common iliac arteries. We used 8x 38 the VBX Viabahn on on the left side and 8x 56 Viabahn VBX on the right side and deployed those successfully. Then the postdilated was 10 mm balloons. Then replaced 8 x 10 Viabahn and into external iliac artery covering dissection portion and preserved internal iliac takeoff. Post stent angiogram showed no active extravasation and excellent seal. Left axis catheter was removed and site was sealed with 6 Barbadian Angio-Seal successfully. On the right sheath was removed as well as wire and the incision was closed with 6-0 Prolene. It was flushed before completion confirming good backbleeding and forward bleeding. Doppler was used to confirm good flow through apparent port. Wound was irrigated with saline and closed in 3 layers with 2 layers of Vicryl and subcuticular Monocryl. During procedure heparin was redosed every 45 minutes an ACT was rechecked. At the end of procedure patient was remained hypotensive and was transferred to PACU fold by transferred to ICU for further resuscitation.
--- NOTE | 2017-08-12 17:36 | Consultation ---
History of Present Illness Consult date: 08/12/17 Reason for consult: other (distended abdomen) Requesting physician: ELEANOR SHAHID Chief complaint: Distended abdomen after post-op hemorrhage - History of present illness History of present illness: This is an unfortunate 66-year-old male who presented for an elective vascular procedure and suffered a postoperative hemorrhage into the abdominal cavity. Patient was taken back for repair by vascular surgery. They identified active extravasation near the edge of the recently placed vascular stent in the iliac/ femoral vessel region. They were concerned about the abdominal distention and requested general surgery evaluation and management. Complete history details were provided by Dr. Shahid. Patient unable to participate in interview as he was intubated. Patient is currently undergoing resuscitation in the intensive care unit. Patient was on vasopressers during the vascular procedure today. Urine output has been minimal. Patient was intubated today prior to surgery. The initial surgery was yesterday. Past History Past Medical History: arthritis, CAD, diabetes, hypertension, hyperlipidemia, other (peripheral arterial disease) Past Surgical History: CABG, Other (back surgery times 2, left leg vascular stent placement) Social history: smoking Family history: no significant family history Medications and Allergies Allergies Allergy/AdvReac Type Severity Reaction Status Date / Time Sulfa (Sulfonamide Allergy rash, Verified 08/05/17 10:59 Antibiotics) swelling Home Medications Medication Instructions Recorded Confirmed Last Taken Type Amlodipine Besylate [Norvasc] 10 mg PO DAILY 05/05/17 08/05/17 08/11/17 05:30 History Aspirin [Lo-Dose Aspirin EC] 81 mg PO DAILY 05/05/17 08/05/17 08/11/17 05:30 History Cilostazol [Pletal] 100 mg PO BID 05/05/17 08/05/17 08/11/17 05:30 History Diclofenac Sodium 75 mg PO DAILY 05/05/17 08/05/17 08/11/17 05:30 History Labetalol HCl 300 mg PO TID 05/05/17 08/05/17 08/11/17 05:30 History PARoxetine [Paxil] 20 mg PO DAILY 05/05/17 08/05/17 08/11/17 05:30 History Valsartan-Hctz 320-25 mg Tab 1 tab PO DAILY 05/05/17 08/05/17 08/11/17 05:30 History metFORMIN [Glucophage] 500 mg PO BID 05/05/17 08/11/17 08/10/17 History HYDROcodone/APAP 7.5-325 [[place] 1 each PO Q6HR PRN #20 tablet 05/12/17 08/05/17 Unknown Rx 7.5/325] Active Meds: Active Medications Acetaminophen/Hydrocodone Bitart ([place] 5/325) 2 each PO Q6H PRN PRN Reason: Pain, Moderate (4-6) Amlodipine Besylate (Norvasc) 10 mg PO DAILY [facility] Last Admin: 08/12/17 12:41 Dose: Not Given Aspirin (Halfprin Ec) 81 mg PO DAILY [facility] Dextrose (D50w (25gm) Syringe) 50 ml IV PRN PRN PRN Reason: Hypoglycemia Folic Acid (Folvite) 1 mg PO QDAY [facility] Hydromorphone HCl (Dilaudid) 0.25 mg IV Q10M PRN PRN Reason: Pain , Severe (7-10) Last Admin: 08/11/17 23:08 Dose: 0.25 mg Hydrophilic Ointment (Vaseline Lip Therapy) 1 applic TP Q2HR PRN PRN Reason: Dry Lips Sodium Chloride (Nacl 0.9% 1000 Ml) 1,000 mls @ 100 mls/hr IV DIRECT [facility] Last Admin: 08/11/17 21:19 Dose: 500 mls/hr Vasopressin 20 unit/ Sodium (Chloride) 101 mls @ 9.09 mls/hr IV TITR [facility]; Protocol Last Admin: 08/12/17 11:30 Dose: 0.03 units/min, 9.09 mls/hr Norepinephrine (Levophed Drip 4 Mg/Ns 250 Ml) 4 mg in 250 mls @ 7.5 mls/hr IV TITR [facility]; Protocol Last Admin: 08/12/17 16:15 Dose: 25 mcg/min, 93.75 mls/hr Thiamine HCl 100 mg/ Sodium (Chloride) 51 mls @ 100 mls/hr IV QDAY [facility] Sodium Bicarbonate 150 meq/ (Sterile Water) 1,150 mls @ 100 mls/hr IV DIRECT [facility] Last Admin: 08/12/17 16:56 Dose: 100 mls/hr Fentanyl Citrate (Fentanyl Drip Premix) 2,000 mcg in 100 mls @ 5.171 mls/hr IV TITR [facility]; Protocol Last Admin: 08/12/17 16:20 Dose: 1.5 mcg/kg/hr, 7.756 mls/hr Sodium Chloride (Nacl 0.9% 500 Ml) 500 mls @ 0 mls/hr IV ONCE [facility] Stop: 08/13/17 06:00 Insulin Human Lispro (Humalog) 0 unit SUB-Q Q6HR [facility]; Protocol Lorazepam (Ativan) 2 mg IV Q1HR PRN PRN Reason: CIWA-Ar 8-15 Lorazepam (Ativan) 4 mg IV Q15MIN PRN PRN Reason: CIWA-Ar >25 Morphine Sulfate (Morphine) 2 mg IV Q4H PRN PRN Reason: Pain, Moderate (4-6) Multi-Ingred Cream/Lotion/Oil/Oint (Artificial Tears Ophth Oint) 1 applic OU Q4HR PRN PRN Reason: Dry Eye(s) Multivitamins (Theragran Tab) 1 each PO QDAY [facility] Naloxone HCl (Narcan 0.4 Mg/1 Ml) 0.1 mg IV Q2MIN PRN PRN Reason: Res Rate </= 8 or 02 SAT < 92% Ondansetron HCl (Zofran) 4 mg IV Q8H PRN PRN Reason: Nausea And Vomiting Paroxetine HCl (Paxil) 20 mg PO DAILY [facility] Last Admin: 08/12/17 10:00 Dose: Not Given Sodium Chloride (Nacl 0.9% 500 Ml) 1 ml IV DIRECT [facility] Review of Systems ROS unobtainable: due to endotracheal tube Exam Vital Signs Temp Pulse Resp BP 98.4 F 70 20 140/62 08/10/17 10:00 08/10/17 10:00 08/10/17 10:00 08/10/17 10:00 - General physical appearance Positive: other (intubated and sedated.) - Respiratory Positive: normal expansion, clear to auscultation - Cardiovascular Rhythm: regular - Extremities Extremity abnormal: other (cool distal extremities - slightly pale) - Abdomen Abdomen: Present: soft (obese), bowel sounds hypoactive (none), distended. Absent: guarding, rigid, surgical scars Hernia: none - Genitourinary Male Genitourinary: deferred - Integumentary other (slightly pale appearance) Results - Labs 08/12/17 03:50 04/18/18 03:50 Abnormal lab results 08/11/17 08/11/17 08/11/17 Range/Units 06:50 16:18 17:57 WBC 12.7 H (4.5-11.0) K/mm3 RBC 3.00 L (3.65-5.03) M/mm3 Hgb 9.5 L D (11.8-15.2) gm/dl Hct 28.3 L D (35.5-45.6) % RDW 16.3 H (13.2-15.2) % Plt Count 105 L (140-440) K/mm3 Lymph % (Auto) 6.7 L (13.4-35.0) % Lymph # 0.8 L (1.2-5.4) K/mm3 Seg Neutrophils % 86.3 H (40.0-70.0) % Seg Neutrophils # 10.9 H (1.8-7.7) K/mm3 PT (12.2-14.9) Sec. INR (0.87-1.13) APTT (24.2-36.6) Sec. POC ABG pH (7.35-7.45) POC ABG pCO2 (35-45) POC ABG pO2 (80-105) Chloride (98-107) mmol/L Carbon Dioxide (22-30) mmol/L Creatinine (0.8-1.5) mg/dL Glucose (75-100) mg/dL POC Glucose 192 H (70-105) Calcium (8.4-10.2) mg/dL Crossmatch See Detail 08/11/17 08/11/17 08/11/17 Range/Units 17:57 20:00 20:00 WBC (4.5-11.0) K/mm3 RBC (3.65-5.03) M/mm3 Hgb 10.2 L (11.8-15.2) gm/dl Hct 31.1 L (35.5-45.6) % RDW (13.2-15.2) % Plt Count 117 L (140-440) K/mm3 Lymph % (Auto) (13.4-35.0) % Lymph # (1.2-5.4) K/mm3 Seg Neutrophils % (40.0-70.0) % Seg Neutrophils # (1.8-7.7) K/mm3 PT 15.3 H (12.2-14.9) Sec. INR 1.15 H (0.87-1.13) APTT 97.7 H* (24.2-36.6) Sec. POC ABG pH (7.35-7.45) POC ABG pCO2 (35-45) POC ABG pO2 (80-105) Chloride 117.4 H (98-107) mmol/L Carbon Dioxide 18 L (22-30) mmol/L Creatinine 0.7 L (0.8-1.5) mg/dL Glucose 143 H (75-100) mg/dL POC Glucose (70-105) Calcium 6.4 L D (8.4-10.2) mg/dL Crossmatch 08/12/17 08/12/17 08/12/17 Range/Units 03:30 03:50 03:50 WBC (4.5-11.0) K/mm3 RBC (3.65-5.03) M/mm3 Hgb 9.2 L 9.1 L (11.8-15.2) gm/dl Hct 27.5 L 27.2 L (35.5-45.6) % RDW (13.2-15.2) % Plt Count (140-440) K/mm3 Lymph % (Auto) (13.4-35.0) % Lymph # (1.2-5.4) K/mm3 Seg Neutrophils % (40.0-70.0) % Seg Neutrophils # (1.8-7.7) K/mm3 PT (12.2-14.9) Sec. INR (0.87-1.13) APTT (24.2-36.6) Sec. POC ABG pH (7.35-7.45) POC ABG pCO2 (35-45) POC ABG pO2 (80-105) Chloride 113.5 H (98-107) mmol/L Carbon Dioxide 13 L (22-30) mmol/L Creatinine (0.8-1.5) mg/dL Glucose 243 H (75-100) mg/dL POC Glucose (70-105) Calcium 6.3 L (8.4-10.2) mg/dL Crossmatch 08/12/17 08/12/17 08/12/17 Range/Units 07:36 08:48 16:16 WBC (4.5-11.0) K/mm3 RBC (3.65-5.03) M/mm3 Hgb (11.8-15.2) gm/dl Hct (35.5-45.6) % RDW (13.2-15.2) % Plt Count (140-440) K/mm3 Lymph % (Auto) (13.4-35.0) % Lymph # (1.2-5.4) K/mm3 Seg Neutrophils % (40.0-70.0) % Seg Neutrophils # (1.8-7.7) K/mm3 PT (12.2-14.9) Sec. INR (0.87-1.13) APTT (24.2-36.6) Sec. POC ABG pH 6.952 L 7.159 L (7.35-7.45) POC ABG pCO2 49.1 H 47.8 H (35-45) POC ABG pO2 76 L 106 H (80-105) Chloride (98-107) mmol/L Carbon Dioxide (22-30) mmol/L Creatinine (0.8-1.5) mg/dL Glucose (75-100) mg/dL POC Glucose 246 H (70-105) Calcium (8.4-10.2) mg/dL Crossmatch Diabetes panel 08/11/17 08/12/17 Range/Units 17:57 03:50 Sodium 142 141 (137-145) mmol/L Potassium 4.1 5.0 D (3.6-5.0) mmol/L Chloride 117.4 H 113.5 H (98-107) mmol/L Carbon Dioxide 18 L 13 L (22-30) mmol/L BUN 14 18 (9-20) mg/dL Creatinine 0.7 L 1.3 D (0.8-1.5) mg/dL Glucose 143 H 243 H (75-100) mg/dL Calcium 6.4 L D 6.3 L (8.4-10.2) mg/dL Calcium panel 08/11/17 08/12/17 Range/Units 17:57 03:50 Calcium 6.4 L D 6.3 L (8.4-10.2) mg/dL Pituitary panel 08/11/17 08/12/17 Range/Units 17:57 03:50 Sodium 142 141 (137-145) mmol/L Potassium 4.1 5.0 D (3.6-5.0) mmol/L Chloride 117.4 H 113.5 H (98-107) mmol/L Carbon Dioxide 18 L 13 L (22-30) mmol/L BUN 14 18 (9-20) mg/dL Creatinine 0.7 L 1.3 D (0.8-1.5) mg/dL Glucose 143 H 243 H (75-100) mg/dL Calcium 6.4 L D 6.3 L (8.4-10.2) mg/dL Adrenal panel 08/11/17 08/12/17 Range/Units 17:57 03:50 Sodium 142 141 (137-145) mmol/L Potassium 4.1 5.0 D (3.6-5.0) mmol/L Chloride 117.4 H 113.5 H (98-107) mmol/L Carbon Dioxide 18 L 13 L (22-30) mmol/L BUN 14 18 (9-20) mg/dL Creatinine 0.7 L 1.3 D (0.8-1.5) mg/dL Glucose 143 H 243 H (75-100) mg/dL Calcium 6.4 L D 6.3 L (8.4-10.2) mg/dL - Imaging CT scan - abdomen: report reviewed, image reviewed Assessment and Plan - Patient Problems (1) Abdominal distention Current Visit: Yes Status: Acute Plan to address problem: Patient in critical condition. Distention is combination of baseline obesity, hemorrhage, fluid resuscitation. At this point, the abdomen remains soft. I do not appreciate any rigidity or guarding. Patient at high risk for abdominal compartment syndrome. We will monitor pulmonary pressures, urinary output/ function, lactates, bladder pressures very closely along with serial exams. Initial PIP was 30 and MAP was 14. Bladder pressure was 14. I've discussed this with Dr. Gross. She will place the orders for the bladder pressures and lactate's. I have discussed my assessment and plan with Dr. Shahid. We will follow along closely. Patient may need a decompressive laparotomy. I have already contacted the OR to make sure that we have AbTheras available. Patient at high risk for poor outcome. Please call if there are any questions. Time=60min
--- NOTE | 2017-08-12 17:37 | XRay Report ---
FINAL REPORT PROCEDURE: XR ABDOMEN 1V AP TECHNIQUE: Abdominal radiograph, single supine AP view. HISTORY: Oral gastric tube placement COMPARISON: Earlier the same date FINDINGS: Bowel gas pattern:There remains minimal gas within the stomach. A orogastric tube ends in the upper stomach region. There is some decompression of the stomach since prior exam. Masses or calcifications:None. Bony structures:No significant abnormality. Other:None. IMPRESSION: The orogastric tube ends in the upper stomach. There is some decompression of the gas in the stomach since prior study.
--- NOTE | 2017-08-12 17:47 | XRay Report ---
FINAL REPORT PROCEDURE: XR CHEST 1V AP TECHNIQUE: Chest radiograph anteroposterior view. CPT 12440 HISTORY: ETTUBE post RT IJ central line insertion COMPARISON: 08/11/2017 FINDINGS: Heart: Heart size is slightly pronounced but stable. Mediastinum/Vessels: Multiple sternal wires are present. Lungs/Pleural space: The left costophrenic angle is not included on this radiograph. Slight vascular congestion is identified. Mild right effusion is possible.. Bony thorax: No acute osseous abnormality. Life support devices: The endotracheal tube ends 4 centimeters above the smita. A nasogastric tube ends below the hemidiaphragms. Right central catheter ends in the SVC. IMPRESSION: Mild vascular congestion with slight right effusion. Mild stable cardiomegaly. The endotracheal tube, nasogastric tube and right central catheter are properly positioned..
[2017-08-12] MEDS: HumaLOG SUB-Q SCH ×2 (17:57→18:28)
[2017-08-12] MEDS: FOLVITE PO SCH (18:26)
[2017-08-12] MEDS: THERAGRAN Tab PO SCH (18:27)
[2017-08-12 19:19] LABS: Bilirubin,Urine NEG (Negative); Blood,Urine LG (Negative); Color,Urine Red (Yellow); Mucus,Urine 1+ /HPF; Urobilinogen,Urine < 2.0 mg/dL (<2.0)
[2017-08-12 19:22] LABS: RBC,Urine > 182.0 /HPF (0.0-6.0); WBC,Urine > 182.0 /HPF (0.0-6.0)
[2017-08-12 20:26] LABS: Hematocrit 29.3 % (35.5-45.6); Mean Corpuscular HGB Conc 34 % (32-34); Mean Corpuscular Hemoglobin 30 pg (28-32); Mean Corpuscular Volume 89 fl (84-94); Red Blood Count 3.29 M/mm3 (3.65-5.03); Red Cell Distribution Width 15.5 % (13.2-15.2)
[2017-08-12 20:31] LABS: Platelet Count 76 K/mm3 (140-440)
[2017-08-12 22:20] LABS: Calcium 5.7 mg/dL (8.4-10.2)
[2017-08-12] MEDS ORDERED: CALCIUM GLUCONATE 2,000 MG in NACL 0.9% 100 ML IV ONE (23:02)
[2017-08-13] MEDS: LEVOPHED 8 MG in NACL 0.9% 250ML 242 ML IV SCH ×5 (01:42→19:18)
[2017-08-13] MEDS: HumaLOG SUB-Q SCH ×5 (03:21→23:39)
--- NOTE | 2017-08-13 05:14 | XRay Report ---
FINAL REPORT EXAM: XR CHEST 1V AP HISTORY: follow up respiratory failure TECHNIQUE: AP portable view(s) of the chest obtained. PRIORS: 08/12/2017 FINDINGS: Endotracheal tube terminates approximately 6.5 cm from the smita. Enteric tube courses below the diaphragm and off of the inferior field of view. Right IJ line terminates near the superior cavoatrial junction. No mediastinal shift. Cardiac silhouette is unchanged with overlying sternotomy wires. No pneumothorax, definite effusion or focal airspace disease. No acute skeletal finding. IMPRESSION: Satisfactory appearance of patient's support apparatus without pneumothorax or significant change compared to 08/12/2017.
[2017-08-13] MEDS: SODIUM BICARBONATE 150 MEQ in STERILE WATER 1,000 ML IV SCH (05:15)
[2017-08-13] MEDS: fentaNYL DRIP Premix 2,000 MCG/100 ML BAG IV SCH ×2 (05:15→17:00)
[2017-08-13 06:07] LABS: Basophils % (Auto) 0.1 % (0.0-1.8); Eosinophils % (Auto) 0.2 % (0.0-4.3); Hematocrit 22.3 % (35.5-45.6); Hemoglobin 7.6 gm/dl (11.8-15.2); Lymphocytes # (Auto) 1.5 K/mm3 (1.2-5.4); Lymphocytes % (Auto) 10.3 % (13.4-35.0); Mean Corpuscular HGB Conc 34 % (32-34); Mean Corpuscular Hemoglobin 31 pg (28-32); Mean Corpuscular Volume 90 fl (84-94); Monocytes # (Auto) 0.8 K/mm3 (0.0-0.8); Monocytes % (Auto) 5.3 % (0.0-7.3); Platelet Count 78 K/mm3 (140-440); Red Blood Count 2.49 M/mm3 (3.65-5.03); Red Cell Distribution Width 15.7 % (13.2-15.2)
[2017-08-13] MEDS ORDERED: NACL 0.9% 500 ML 500 ML IV ONE (06:56)
[2017-08-13 07:39] LABS: Albumin 2.8 g/dL (3.9-5); Calcium 6.3 mg/dL (8.4-10.2)
--- NOTE | 2017-08-13 07:47 | Consultation ---
History of Present Illness - Reason for Consult Consult date: 08/13/17 acute renal failure, hyperkalemia, metabolic acidosis Requesting physician: ARI MORROW - History of Present Illness This is a 66 yo M with past medical history of hypertension, Type 2 DM, hyperlipidemia, CAD, PAD, who underwent elective vascular procedure for [employer], course was complicated by postop hemorrhage into the abdominal cavity and pt was taken back for repair when active extravasation near the edge of the recently placed vascular stent in the iliac/femoral vessel region was detected. pt received multiple blood products incl. 9PRBC, 2 FFPs, and multiple IV NS boluses, was intubated and transferred to the ICU for management of acute hemorrhagic shock. pt is currently on vasopressin and levophed 25mcg/min. Concern of acute abd compartment syndrome was raised given increased abd distension and surgery was consulted. Bladder pressure was measured to be 14mmhg. pt developed oliguric ATN, with BUN/Cr rising to 30/2.5mg/dl from admission Cr of 0.7, along with metabolic acidosis, hyperkalemia, for which renal consult is requested. Past History Past Medical History: arthritis, CAD, diabetes, hypertension, hyperlipidemia, other (peripheral arterial disease) Past Surgical History: CABG, Other (back surgery times 2, left leg vascular stent placement) Social history: smoking Family history: no significant family history Medications and Allergies Allergies Allergy/AdvReac Type Severity Reaction Status Date / Time Sulfa (Sulfonamide Allergy rash, Verified 08/05/17 10:59 Antibiotics) swelling Home Medications Medication Instructions Recorded Confirmed Last Taken Type Amlodipine Besylate [Norvasc] 10 mg PO DAILY 05/05/17 08/05/17 08/11/17 05:30 History Aspirin [Lo-Dose Aspirin EC] 81 mg PO DAILY 05/05/17 08/05/17 08/11/17 05:30 History Cilostazol [Pletal] 100 mg PO BID 05/05/17 08/05/17 08/11/17 05:30 History Diclofenac Sodium 75 mg PO DAILY 05/05/17 08/05/17 08/11/17 05:30 History Labetalol HCl 300 mg PO TID 05/05/17 08/05/17 08/11/17 05:30 History PARoxetine [Paxil] 20 mg PO DAILY 05/05/17 08/05/17 08/11/17 05:30 History Valsartan-Hctz 320-25 mg Tab 1 tab PO DAILY 05/05/17 08/05/17 08/11/17 05:30 History metFORMIN [Glucophage] 500 mg PO BID 05/05/17 08/11/17 08/10/17 History HYDROcodone/APAP 7.5-325 [[place]ri[place] 1 each PO Q6HR PRN #20 tablet 05/12/17 08/05/17 Unknown Rx 7.5/325] Active Meds: Active Medications Acetaminophen/Hydrocodone Bitart ([place]ever 5/325) 2 each PO Q6H PRN PRN Reason: Pain, Moderate (4-6) Aspirin (Halfprin Ec) 81 mg PO DAILY PANCHITO Dextrose (D50w (25gm) Syringe) 50 ml IV PRN PRN PRN Reason: Hypoglycemia Folic Acid (Folvite) 1 mg PO QDAY PANCHITO Hydromorphone HCl (Dilaudid) 0.25 mg IV Q10M PRN PRN Reason: Pain , Severe (7-10) Last Admin: 08/11/17 23:08 Dose: 0.25 mg Hydrophilic Ointment (Vaseline Lip Therapy) 1 applic TP Q2HR PRN PRN Reason: Dry Lips Sodium Chloride (Nacl 0.9% 1000 Ml) 1,000 mls @ 100 mls/hr IV DIRECT PANCHITO Last Admin: 08/11/17 21:19 Dose: 500 mls/hr Vasopressin 20 unit/ Sodium (Chloride) 101 mls @ 9.09 mls/hr IV TITR PANCHITO; Protocol Last Admin: 08/12/17 23:27 Dose: 0.03 units/min, 9.09 mls/hr Thiamine HCl 100 mg/ Sodium (Chloride) 51 mls @ 100 mls/hr IV QDAY PANCHITO Sodium Bicarbonate 150 meq/ (Sterile Water) 1,150 mls @ 125 mls/hr IV DIRECT PANCHITO Last Admin: 08/13/17 05:15 Dose: 100 mls/hr Fentanyl Citrate (Fentanyl Drip Premix) 2,000 mcg in 100 mls @ 5.171 mls/hr IV TITR PANCHITO; Protocol Last Admin: 08/13/17 05:15 Dose: 1.5 mcg/kg/hr, 7.756 mls/hr Norepinephrine 8 mg/ Sodium (Chloride) 250 mls @ 3.75 mls/hr IV TITR PANCHITO; Protocol Last Admin: 08/13/17 05:29 Dose: 30 mcg/min, 56.25 mls/hr Insulin Human Lispro (Humalog) 0 unit SUB-Q Q6HR PANCHITO; Protocol Last Admin: 08/13/17 07:19 Dose: Not Given Lorazepam (Ativan) 2 mg IV Q1HR PRN PRN Reason: CIWA-Ar 8-15 Lorazepam (Ativan) 4 mg IV Q15MIN PRN PRN Reason: CIWA-Ar >25 Morphine Sulfate (Morphine) 2 mg IV Q4H PRN PRN Reason: Pain, Moderate (4-6) Multi-Ingred Cream/Lotion/Oil/Oint (Artificial Tears Ophth Oint) 1 applic OU Q4HR PRN PRN Reason: Dry Eye(s) Multivitamins (Theragran Tab) 1 each PO QDAY PANCHITO Naloxone HCl (Narcan 0.4 Mg/1 Ml) 0.1 mg IV Q2MIN PRN PRN Reason: Res Rate </= 8 or 02 SAT < 92% Ondansetron HCl (Zofran) 4 mg IV Q8H PRN PRN Reason: Nausea And Vomiting Paroxetine HCl (Paxil) 20 mg PO DAILY [facility] Last Admin: 08/12/17 10:00 Dose: Not Given Sodium Chloride (Nacl 0.9% 500 Ml) 1 ml IV DIRECT PANCHITO Review of Systems ROS unobtainable: due to endotracheal tube Exam - Vital Signs Vital signs: Vital Signs Temp Pulse Resp BP 98.4 F 70 20 140/62 08/10/17 10:00 08/10/17 10:00 08/10/17 10:00 08/10/17 10:00 - General Appearance General appearance: well-developed, well-nourished, appears stated age, obese, intubated EENT: ATNC, PERRL, mucous membranes moist Neck: Present: neck supple Respiratory: Decreased Breath Sounds Heart: regular, S1S2 Gastrointestinal: Present: normoactive bowel sounds, distended, obese Integumentary: no rash, other (2+ b/l LE edema ) Neurologic: other (intubated ) Results - Lab Results 08/13/17 05:46 08/13/17 05:46 Most recent lab results Calcium 6.3 mg/dL (8.4-10.2) L 08/13/17 05:46 Laboratory Tests 08/11/17 08/11/17 08/12/17 10:52 20:00 03:50 PT 15.3 H INR 1.15 H APTT 97.7 H* Activated Clotting Time 191 H Heparin Anti-Xa Level 0.33 POC ABG pH POC ABG pCO2 POC ABG pO2 POC ABG HCO3 POC ABG Total CO2 POC ABG O2 Sat BUN 18 Creatinine 1.3 D Estimated GFR 55 BUN/Creatinine Ratio 14 Glucose 243 H POC Glucose Calcium 6.3 L Urine Color Urine Turbidity Urine pH Ur Specific [place] Urine Protein Urine Glucose (UA) Urine Ketones Urine Blood Urine Nitrite Urine Bilirubin Urine Urobilinogen Ur Leukocyte Esterase Urine WBC (Auto) Urine RBC (Auto) Urine Mucus 08/12/17 08/12/17 08/12/17 07:36 18:30 21:50 PT INR APTT Activated Clotting Time Heparin Anti-Xa Level < 0.10 L POC ABG pH POC ABG pCO2 POC ABG pO2 POC ABG HCO3 POC ABG Total CO2 POC ABG O2 Sat BUN Creatinine Estimated GFR BUN/Creatinine Ratio Glucose POC Glucose 246 H Calcium Urine Color Red Urine Turbidity Hazy Urine pH 5.0 Ur Specific [place] 1.051 H Urine Protein 100 mg/dl Urine Glucose (UA) 50 Urine Ketones Neg Urine Blood Lg Urine Nitrite Neg Urine Bilirubin Neg Urine Urobilinogen < 2.0 Ur Leukocyte Esterase Tr Urine WBC (Auto) > 182.0 H Urine RBC (Auto) > 182.0 Urine Mucus 1+ 08/13/17 08/13/17 03:20 06:06 PT INR APTT Activated Clotting Time Heparin Anti-Xa Level POC ABG pH 7.282 L POC ABG pCO2 41.1 POC ABG pO2 81 POC ABG HCO3 19.4 POC ABG Total CO2 21 POC ABG O2 Sat 94 BUN Creatinine Estimated GFR BUN/Creatinine Ratio Glucose POC Glucose 235 H Calcium Urine Color Urine Turbidity Urine pH Ur Specific [place] Urine Protein Urine Glucose (UA) Urine Ketones Urine Blood Urine Nitrite Urine Bilirubin Urine Urobilinogen Ur Leukocyte Esterase Urine WBC (Auto) Urine RBC (Auto) Urine Mucus Assessment and Plan - Patient Problems (1) Acute renal failure due to tubular necrosis Current Visit: Yes Status: Acute Plan to address problem: ATN due to acute hemorrhagic shock, increasing intraabdominal pressure puts patient at risk for Abdominal compartment syndrome, which can contribute to WILLIAM. Cont close monitoring of bladder pressure, if >25 mmHg to contact surgery emergently for possible decompression. Cont vasopressor support with vasopressin, levophed, currently at 25mcg/min. cont bicarb gtt to treat metabolic acidosis and hyperkalemia medically. Although high vasopressor requirement puts pt at increased risk for hemodynamic instability with HD, will consider HD if pt remains oliguric and/or respiratory status worsens with multiple blood products/worsening metabolic acidosis/ hyperkalemia is noted. No [facility] available in [facility]. Will ask vascular surgery for vascath placement when deemed safe. Cont supportive care for WILLIAM/ATN, avoid nephrotoxins, NSAIDs, IV contrast if possible. Will monitor lytes/renal indices closely and make further recommendations. D/w RN. Total CCM spent 52 min. (2) Hemorrhagic shock Current Visit: Yes Status: Acute Plan to address problem: pt s/p multiple PRBCs/FFPs, cont vasopressor support with vasopressin/levophed, titrate to keep MAP >65mmHg (3) Hyperkalemia Current Visit: Yes Status: Acute Plan to address problem: cont bicarb gtt, if refractory will consider HD (4) Metabolic acidosis Current Visit: Yes Status: Acute Plan to address problem: due lactic acidosis/WILLIAM, cont bicarb gtt (5) Atherosclerosis of bill [place]ore[place] arteries of extremity with intermittent claudication Current Visit: No Status: Acute Plan to address problem: management as per vascular surgery (6) Hypocalcemia Current Visit: Yes Status: Acute Plan to address problem: s/p calcium gluconate 2g IVSS last night. will use 3Ca bath once HD initiated
[2017-08-13] MEDS ORDERED: NACL 0.9% 500 ML 500 ML IV NR (08:37)
[2017-08-13 08:47] LABS: INR 1.35 (0.87-1.13)
[2017-08-13 08:48] LABS: Partial Thromboplastin Time 35.1 Sec. (24.2-36.6)
[2017-08-13 08:51] LABS: Calcium 6.2 mg/dL (8.4-10.2)
--- NOTE | 2017-08-13 09:44 | Progress Note ---
Assessment and Plan POD 2/1 on 2 pressors, intubated. decreasing pressor support, decreased urine output, acute renal failure due to hemorrhagic shock combined with contrast given during 2 procedures. renal consulted, discussed with Dr. Glez. Patient may need HD later today. Will plan to place VasCath. thrombocytopenia, most likely consumptive, will f/u hemonc, may need platelet transfusion h 7.2 - will give 2u PRBC, it is most likely dilutional abdominal distention improving with NGT, will continue monitoring, f/u general surgery vent management as per ICU team Subjective Date of service: 08/13/17 Principal diagnosis: PVD Interval history: patient remains intubated for now, undergoing resuscitation. He is following commands. Objective - Exam Narrative Exam: feet warm with good perfusion. Groin incisions with some ecchymosis, healing well abdomen soft, less distended, NGT functioning well. - Constitutional Vitals: Vital Signs - 12hr 08/12/17 08/12/17 08/12/17 21:30 21:45 21:51 Temperature 97.5 F L 97.5 F L Pulse Rate 95 H 95 H Respiratory 25 H 24 Rate Blood Pressure 85/52 86/53 O2 Sat by Pulse 96 96 Oximetry 08/12/17 08/12/17 08/12/17 22:00 22:15 22:23 Temperature 97.6 F Pulse Rate 94 H 94 H Respiratory 24 24 Rate Blood Pressure 88/59 86/56 O2 Sat by Pulse 97 97 Oximetry 08/12/17 08/12/17 08/12/17 22:30 22:39 22:45 Temperature 97.6 F Pulse Rate 96 H 96 H Respiratory 26 H 24 Rate Blood Pressure 104/59 103/58 O2 Sat by Pulse 97 96 Oximetry 08/12/17 08/12/17 08/12/17 23:00 23:14 23:15 Temperature Pulse Rate 95 H 93 H 96 H Respiratory 26 H 26 H 25 H Rate Blood Pressure 104/56 104/56 108/56 O2 Sat by Pulse 96 96 96 Oximetry 08/12/17 08/12/17 08/12/17 23:19 23:30 23:45 Temperature 97.6 F Pulse Rate 96 H 94 H Respiratory 27 H 26 H Rate Blood Pressure 107/54 106/55 O2 Sat by Pulse 96 96 Oximetry 08/12/17 08/13/1718 23:50 00:00 01:00 Temperature 97.8 F Pulse Rate 95 H 96 H Respiratory 24 24 Rate Blood Pressure 109/49 112/51 O2 Sat by Pulse 95 95 Oximetry 08/13/17 08/13/17 08/13/17 02:00 03:00 03:51 Temperature 97.2 F L Pulse Rate 98 H 100 H Respiratory 25 H 25 H Rate Blood Pressure 105/57 113/55 O2 Sat by Pulse 95 94 Oximetry 08/13/17 08/13/17 08/13/17 04:00 05:00 06:00 Temperature Pulse Rate 101 H 99 H 99 H Respiratory 18 14 24 Rate Blood Pressure 115/60 111/48 105/49 O2 Sat by Pulse 95 89 95 Oximetry 08/13/17 08/13/17 07:00 08:55 Temperature 97.8 F Pulse Rate 101 H 99 H Respiratory 25 H 24 Rate Blood Pressure 111/58 103/51 O2 Sat by Pulse 95 91 Oximetry - Labs CBC & Chem 7: 08/13/17 05:46 08/13/17 07:10 Labs: Abnormal lab results 08/11/17 08/12/17 08/12/17 Range/Units 06:50 16:16 17:54 WBC (4.5-11.0) K/mm3 RBC (3.65-5.03) M/mm3 Hgb (11.8-15.2) gm/dl Hct (35.5-45.6) % RDW (13.2-15.2) % Plt Count (140-440) K/mm3 Lymph % (Auto) (13.4-35.0) % Seg Neutrophils % (40.0-70.0) % Seg Neutrophils # (1.8-7.7) K/mm3 PT (12.2-14.9) Sec. INR (0.87-1.13) D-Dimer (0-234) ng/mlDDU Heparin Anti-Xa Level (0.3-0.7) U.I./ml POC ABG pH 7.159 L (7.35-7.45) POC ABG pCO2 47.8 H (35-45) POC ABG pO2 106 H (80-105) Potassium (3.6-5.0) mmol/L Chloride (98-107) mmol/L Carbon Dioxide (22-30) mmol/L BUN (9-20) mg/dL Creatinine (0.8-1.5) mg/dL Glucose (75-100) mg/dL POC Glucose 240 H (70-105) Calcium (8.4-10.2) mg/dL AST (5-40) units/L ALT (7-56) units/L Total Protein (6.3-8.2) g/dL Albumin (3.9-5) g/dL Ur Specific [place] (1.003-1.030) Urine WBC (Auto) (0.0-6.0) /HPF Crossmatch See Detail 08/12/17 08/12/17 08/12/17 Range/Units 18:30 20:15 21:50 WBC 17.9 H (4.5-11.0) K/mm3 RBC 3.29 L (3.65-5.03) M/mm3 Hgb 10.0 L (11.8-15.2) gm/dl Hct 29.3 L (35.5-45.6) % RDW 15.5 H (13.2-15.2) % Plt Count 76 L (140-440) K/mm3 Lymph % (Auto) (13.4-35.0) % Seg Neutrophils % (40.0-70.0) % Seg Neutrophils # (1.8-7.7) K/mm3 PT (12.2-14.9) Sec. INR (0.87-1.13) D-Dimer (0-234) ng/mlDDU Heparin Anti-Xa Level < 0.10 L (0.3-0.7) U.I./ml POC ABG pH (7.35-7.45) POC ABG pCO2 (35-45) POC ABG pO2 (80-105) Potassium (3.6-5.0) mmol/L Chloride (98-107) mmol/L Carbon Dioxide (22-30) mmol/L BUN (9-20) mg/dL Creatinine (0.8-1.5) mg/dL Glucose (75-100) mg/dL POC Glucose (70-105) Calcium (8.4-10.2) mg/dL AST (5-40) units/L ALT (7-56) units/L Total Protein (6.3-8.2) g/dL Albumin (3.9-5) g/dL Ur Specific [place] 1.051 H (1.003-1.030) Urine WBC (Auto) > 182.0 H (0.0-6.0) /HPF Crossmatch 08/12/17 08/13/17 08/13/17 Range/Units 21:50 03:20 05:46 WBC 14.6 H (4.5-11.0) K/mm3 RBC 2.49 L (3.65-5.03) M/mm3 Hgb 7.6 L (11.8-15.2) gm/dl Hct 22.3 L D (35.5-45.6) % RDW 15.7 H (13.2-15.2) % Plt Count 78 L (140-440) K/mm3 Lymph % (Auto) 10.3 L (13.4-35.0) % Seg Neutrophils % 84.1 H (40.0-70.0) % Seg Neutrophils # 12.3 H (1.8-7.7) K/mm3 PT (12.2-14.9) Sec. INR (0.87-1.13) D-Dimer (0-234) ng/mlDDU Heparin Anti-Xa Level (0.3-0.7) U.I./ml POC ABG pH (7.35-7.45) POC ABG pCO2 (35-45) POC ABG pO2 (80-105) Potassium 5.4 H (3.6-5.0) mmol/L Chloride 110.8 H (98-107) mmol/L Carbon Dioxide 18 L (22-30) mmol/L BUN 30 H (9-20) mg/dL Creatinine 2.5 H D (0.8-1.5) mg/dL Glucose 216 H (75-100) mg/dL POC Glucose 235 H (70-105) Calcium 5.7 L* (8.4-10.2) mg/dL AST (5-40) units/L ALT (7-56) units/L Total Protein (6.3-8.2) g/dL Albumin (3.9-5) g/dL Ur Specific [place] (1.003-1.030) Urine WBC (Auto) (0.0-6.0) /HPF Crossmatch 08/13/17 08/13/17 08/13/17 Range/Units 05:46 06:06 07:10 WBC (4.5-11.0) K/mm3 RBC (3.65-5.03) M/mm3 Hgb (11.8-15.2) gm/dl Hct (35.5-45.6) % RDW (13.2-15.2) % Plt Count (140-440) K/mm3 Lymph % (Auto) (13.4-35.0) % Seg Neutrophils % (40.0-70.0) % Seg Neutrophils # (1.8-7.7) K/mm3 PT 17.4 H (12.2-14.9) Sec. INR 1.35 H (0.87-1.13) D-Dimer 598.44 H (0-234) ng/mlDDU Heparin Anti-Xa Level (0.3-0.7) U.I./ml POC ABG pH 7.282 L (7.35-7.45) POC ABG pCO2 (35-45) POC ABG pO2 (80-105) Potassium (3.6-5.0) mmol/L Chloride 107.5 H (98-107) mmol/L Carbon Dioxide 19 L (22-30) mmol/L BUN 35 H (9-20) mg/dL Creatinine 2.9 H (0.8-1.5) mg/dL Glucose 242 H (75-100) mg/dL POC Glucose (70-105) Calcium 6.3 L (8.4-10.2) mg/dL AST 1304 H (5-40) units/L ALT 533 H (7-56) units/L Total Protein 4.4 L (6.3-8.2) g/dL Albumin 2.8 L (3.9-5) g/dL Ur Specific [place] (1.003-1.030) Urine WBC (Auto) (0.0-6.0) /HPF Crossmatch 08/13/17 Range/Units 07:10 WBC (4.5-11.0) K/mm3 RBC (3.65-5.03) M/mm3 Hgb (11.8-15.2) gm/dl Hct (35.5-45.6) % RDW (13.2-15.2) % Plt Count (140-440) K/mm3 Lymph % (Auto) (13.4-35.0) % Seg Neutrophils % (40.0-70.0) % Seg Neutrophils # (1.8-7.7) K/mm3 PT (12.2-14.9) Sec. INR (0.87-1.13) D-Dimer (0-234) ng/mlDDU Heparin Anti-Xa Level (0.3-0.7) U.I./ml POC ABG pH (7.35-7.45) POC ABG pCO2 (35-45) POC ABG pO2 (80-105) Potassium (3.6-5.0) mmol/L Chloride 107.2 H (98-107) mmol/L Carbon Dioxide 19 L (22-30) mmol/L BUN 35 H (9-20) mg/dL Creatinine 2.8 H (0.8-1.5) mg/dL Glucose 240 H (75-100) mg/dL POC Glucose (70-105) Calcium 6.2 L (8.4-10.2) mg/dL AST (5-40) units/L ALT (7-56) units/L Total Protein (6.3-8.2) g/dL Albumin (3.9-5) g/dL Ur Specific [place] (1.003-1.030) Urine WBC (Auto) (0.0-6.0) /HPF Crossmatch
--- NOTE | 2017-08-13 09:46 | Hem/Onc Consultation ---
History of Present Illness - Reason for Consult Consult date: 08/13/17 - History of Present Illness Note dictated. Awaiting heparin-induced thrombocytopenia assay. Hold all anticoagulant's. monitor Counts ffp and plt as needed Past History Past Medical History: CAD, COPD, diabetes, hypertension, hyperlipidemia Past Surgical History: Other (endarterectomy) Social history: smoking, alcohol abuse Family history: no significant family history Medications and Allergies Allergies Allergy/AdvReac Type Severity Reaction Status Date / Time Sulfa (Sulfonamide Allergy rash, Verified 08/05/17 10:59 Antibiotics) swelling Home Medications Medication Instructions Recorded Confirmed Last Taken Type Amlodipine Besylate [Norvasc] 10 mg PO DAILY 05/05/17 08/05/17 08/11/17 05:30 History Aspirin [Lo-Dose Aspirin EC] 81 mg PO DAILY 05/05/17 08/05/17 08/11/17 05:30 History Cilostazol [Pletal] 100 mg PO BID 05/05/17 08/05/17 08/11/17 05:30 History Diclofenac Sodium 75 mg PO DAILY 05/05/17 08/05/17 08/11/17 05:30 History Labetalol HCl 300 mg PO TID 05/05/17 08/05/17 08/11/17 05:30 History PARoxetine [Paxil] 20 mg PO DAILY 05/05/17 08/05/17 08/11/17 05:30 History Valsartan-Hctz 320-25 mg Tab 1 tab PO DAILY 05/05/17 08/05/17 08/11/17 05:30 History metFORMIN [Glucophage] 500 mg PO BID 05/05/17 08/11/17 08/10/17 History HYDROcodone/APAP 7.5-325 [[place] 1 each PO Q6HR PRN #20 tablet 05/12/17 08/05/17 Unknown Rx 7.5/325] Active Meds: Active Medications Acetaminophen/Hydrocodone Bitart ([place] 5/325) 2 each PO Q6H PRN PRN Reason: Pain, Moderate (4-6) Aspirin (Halfprin Ec) 81 mg PO DAILY [facility] Dextrose (D50w (25gm) Syringe) 50 ml IV PRN PRN PRN Reason: Hypoglycemia Folic Acid (Folvite) 1 mg PO QDAY [facility] Hydromorphone HCl (Dilaudid) 0.25 mg IV Q10M PRN PRN Reason: Pain , Severe (7-10) Last Admin: 08/11/17 23:08 Dose: 0.25 mg Hydrophilic Ointment (Vaseline Lip Therapy) 1 applic TP Q2HR PRN PRN Reason: Dry Lips Sodium Chloride (Nacl 0.9% 1000 Ml) 1,000 mls @ 100 mls/hr IV DIRECT [facility] Last Admin: 08/11/17 21:19 Dose: 500 mls/hr Vasopressin 20 unit/ Sodium (Chloride) 101 mls @ 9.09 mls/hr IV TITR [facility]; Protocol Last Admin: 08/12/17 23:27 Dose: 0.03 units/min, 9.09 mls/hr Thiamine HCl 100 mg/ Sodium (Chloride) 51 mls @ 100 mls/hr IV QDAY [facility] Sodium Bicarbonate 150 meq/ (Sterile Water) 1,150 mls @ 125 mls/hr IV DIRECT [facility] Last Admin: 08/13/17 05:15 Dose: 100 mls/hr Fentanyl Citrate (Fentanyl Drip Premix) 2,000 mcg in 100 mls @ 5.171 mls/hr IV TITR [facility]; Protocol Last Admin: 08/13/17 05:15 Dose: 1.5 mcg/kg/hr, 7.756 mls/hr Norepinephrine 8 mg/ Sodium (Chloride) 250 mls @ 3.75 mls/hr IV TITR [facility]; Protocol Last Admin: 08/13/17 05:29 Dose: 30 mcg/min, 56.25 mls/hr Sodium Chloride (Nacl 0.9% 500 Ml) 500 mls @ 0 mls/hr IV ONCE NR Stop: 08/13/17 12:00 Insulin Human Lispro (Humalog) 0 unit SUB-Q Q6HR [facility]; Protocol Last Admin: 08/13/17 07:19 Dose: Not Given Lorazepam (Ativan) 2 mg IV Q1HR PRN PRN Reason: CIWA-Ar 8-15 Lorazepam (Ativan) 4 mg IV Q15MIN PRN PRN Reason: CIWA-Ar >25 Morphine Sulfate (Morphine) 2 mg IV Q4H PRN PRN Reason: Pain, Moderate (4-6) Multi-Ingred Cream/Lotion/Oil/Oint (Artificial Tears Ophth Oint) 1 applic OU Q4HR PRN PRN Reason: Dry Eye(s) Multivitamins (Theragran Tab) 1 each PO QDAY [facility] Naloxone HCl (Narcan 0.4 Mg/1 Ml) 0.1 mg IV Q2MIN PRN PRN Reason: Res Rate </= 8 or 02 SAT < 92% Ondansetron HCl (Zofran) 4 mg IV Q8H PRN PRN Reason: Nausea And Vomiting Paroxetine HCl (Paxil) 20 mg PO DAILY [facility] Last Admin: 08/12/17 10:00 Dose: Not Given Sodium Chloride (Nacl 0.9% 500 Ml) 1 ml IV DIRECT [facility] Exam - Constitutional Vitals: Last Vital Signs Temp 97.8 F 08/13/17 08:55 Pulse 99 H 08/13/17 08:55 Resp 24 08/13/17 08:55 BP 103/51 08/13/17 08:55 Pulse Ox 91 08/13/17 08:55 Results - Labs lab Results: Laboratory Results - last 24 hr 08/11/17 08/12/17 08/12/17 06:50 16:16 17:54 WBC RBC Hgb Hct MCV MCH MCHC RDW Plt Count Lymph % (Auto) [place] % (Auto) Eos % (Auto) Baso % (Auto) Lymph # [place] # Eos # Baso # Seg Neutrophils % Seg Neutrophils # PT INR APTT Fibrinogen D-Dimer Heparin Anti-Xa Level POC ABG pH 7.159 L POC ABG pCO2 47.8 H POC ABG pO2 106 H POC ABG HCO3 17.0 POC ABG Total CO2 18 POC ABG O2 Sat 96 POC ABG Base Excess -12 FiO2 100 Sodium Potassium Chloride Carbon Dioxide Anion Gap BUN Creatinine Estimated GFR BUN/Creatinine Ratio Glucose POC Glucose 240 H Calcium Total Bilirubin AST ALT Alkaline Phosphatase Total Protein Albumin Albumin/Globulin Ratio Urine Color Urine Turbidity Urine pH Ur Specific [place] Urine Protein Urine Glucose (UA) Urine Ketones Urine Blood Urine Nitrite Urine Bilirubin Urine Urobilinogen Ur Leukocyte Esterase Urine WBC (Auto) Urine RBC (Auto) Urine Mucus Blood Type O POSITIVE Antibody Screen Negative Crossmatch See Detail 08/12/17 08/12/17 08/12/17 18:30 20:15 21:50 WBC 17.9 H RBC 3.29 L Hgb 10.0 L Hct 29.3 L MCV 89 MCH 30 MCHC 34 RDW 15.5 H Plt Count 76 L Lymph % (Auto) [place] % (Auto) Eos % (Auto) Baso % (Auto) Lymph # [place] # Eos # Baso # Seg Neutrophils % Seg Neutrophils # PT INR APTT Fibrinogen D-Dimer Heparin Anti-Xa Level < 0.10 L POC ABG pH POC ABG pCO2 POC ABG pO2 POC ABG HCO3 POC ABG Total CO2 POC ABG O2 Sat POC ABG Base Excess FiO2 Sodium Potassium Chloride Carbon Dioxide Anion Gap BUN Creatinine Estimated GFR BUN/Creatinine Ratio Glucose POC Glucose Calcium Total Bilirubin AST ALT Alkaline Phosphatase Total Protein Albumin Albumin/Globulin Ratio Urine Color Red Urine Turbidity Hazy Urine pH 5.0 Ur Specific [place] 1.051 H Urine Protein 100 mg/dl Urine Glucose (UA) 50 Urine Ketones Neg Urine Blood Lg Urine Nitrite Neg Urine Bilirubin Neg Urine Urobilinogen < 2.0 Ur Leukocyte Esterase Tr Urine WBC (Auto) > 182.0 H Urine RBC (Auto) > 182.0 Urine Mucus 1+ Blood Type Antibody Screen Crossmatch 08/12/17 08/13/17 08/13/17 21:50 03:20 05:46 WBC 14.6 H RBC 2.49 L Hgb 7.6 L Hct 22.3 L D MCV 90 MCH 31 MCHC 34 RDW 15.7 H Plt Count 78 L Lymph % (Auto) 10.3 L [place] % (Auto) 5.3 Eos % (Auto) 0.2 Baso % (Auto) 0.1 Lymph # 1.5 [place] # 0.8 Eos # 0.0 Baso # 0.0 Seg Neutrophils % 84.1 H Seg Neutrophils # 12.3 H PT INR APTT Fibrinogen D-Dimer Heparin Anti-Xa Level POC ABG pH POC ABG pCO2 POC ABG pO2 POC ABG HCO3 POC ABG Total CO2 POC ABG O2 Sat POC ABG Base Excess FiO2 Sodium 142 Potassium 5.4 H Chloride 110.8 H Carbon Dioxide 18 L Anion Gap 19 BUN 30 H Creatinine 2.5 H D Estimated GFR 26 BUN/Creatinine Ratio 12 Glucose 216 H POC Glucose 235 H Calcium 5.7 L* Total Bilirubin AST ALT Alkaline Phosphatase Total Protein Albumin Albumin/Globulin Ratio Urine Color Urine Turbidity Urine pH Ur Specific [place] Urine Protein Urine Glucose (UA) Urine Ketones Urine Blood Urine Nitrite Urine Bilirubin Urine Urobilinogen Ur Leukocyte Esterase Urine WBC (Auto) Urine RBC (Auto) Urine Mucus Blood Type Antibody Screen Crossmatch 08/13/17 08/13/1708/13/18 05:46 06:06 07:10 WBC RBC Hgb Hct MCV MCH MCHC RDW Plt Count Lymph % (Auto) [place] % (Auto) Eos % (Auto) Baso % (Auto) Lymph # [place] # Eos # Baso # Seg Neutrophils % Seg Neutrophils # PT 17.4 H INR 1.35 H APTT 35.1 Fibrinogen 298 D-Dimer 598.44 H Heparin Anti-Xa Level POC ABG pH 7.282 L POC ABG pCO2 41.1 POC ABG pO2 81 POC ABG HCO3 19.4 POC ABG Total CO2 21 POC ABG O2 Sat 94 POC ABG Base Excess -7 FiO2 80 Sodium 144 Potassium 4.7 Chloride 107.5 H Carbon Dioxide 19 L Anion Gap 22 BUN 35 H Creatinine 2.9 H Estimated GFR 22 BUN/Creatinine Ratio 12 Glucose 242 H POC Glucose Calcium 6.3 L Total Bilirubin 0.20 AST 1304 H ALT 533 H Alkaline Phosphatase 38 Total Protein 4.4 L Albumin 2.8 L Albumin/Globulin Ratio 1.8 Urine Color Urine Turbidity Urine pH Ur Specific [place] Urine Protein Urine Glucose (UA) Urine Ketones Urine Blood Urine Nitrite Urine Bilirubin Urine Urobilinogen Ur Leukocyte Esterase Urine WBC (Auto) Urine RBC (Auto) Urine Mucus Blood Type Antibody Screen Crossmatch 08/13/17 07:10 WBC RBC Hgb Hct MCV MCH MCHC RDW Plt Count Lymph % (Auto) [place] % (Auto) Eos % (Auto) Baso % (Auto) Lymph # [place] # Eos # Baso # Seg Neutrophils % Seg Neutrophils # PT INR APTT Fibrinogen D-Dimer Heparin Anti-Xa Level POC ABG pH POC ABG pCO2 POC ABG pO2 POC ABG HCO3 POC ABG Total CO2 POC ABG O2 Sat POC ABG Base Excess FiO2 Sodium 145 Potassium 4.6 Chloride 107.2 H Carbon Dioxide 19 L Anion Gap 23 BUN 35 H Creatinine 2.8 H Estimated GFR 23 BUN/Creatinine Ratio 13 Glucose 240 H POC Glucose Calcium 6.2 L Total Bilirubin AST ALT Alkaline Phosphatase Total Protein Albumin Albumin/Globulin Ratio Urine Color Urine Turbidity Urine pH Ur Specific [place] Urine Protein Urine Glucose (UA) Urine Ketones Urine Blood Urine Nitrite Urine Bilirubin Urine Urobilinogen Ur Leukocyte Esterase Urine WBC (Auto) Urine RBC (Auto) Urine Mucus Blood Type Antibody Screen Crossmatch
[2017-08-13] MEDS: HALFPRIN EC PO SCH (10:00)
--- NOTE | 2017-08-13 10:25 | Consultation ---
REFERRING PHYSICIAN: Shade Shahid M.D. REASON FOR CONSULTATION: 1. Thrombocytopenia. 2. Coagulopathy. 3. Hypercoagulable state. HISTORY OF PRESENT ILLNESS: The patient is a 66-year-old male who has had history of claudication, has had previous left common femoral endarterectomy with iliac stenting. He was here for the same procedure on the right side. CT angiogram 3 months ago showed right common femoral occlusion, right iliac stenosis. The patient was taken to the operating room. He was taken to the operating room on the for the procedure. He did undergo right common femoral endarterectomy with patch angioplasty, bilateral iliac angiogram, right external iliac stenting, bilateral common iliac stenting and ultrasound-guided left femoral access. The patient intraoperatively also received heparin. The patient did show evidence of hypotension. He had a blood loss of about 1700 mL. He received about 4-5 units of blood during the operation. The patient, however, continued to be hypotensive and a CT of the abdomen also showed retroperitoneal bleed. The patient's platelet count dropped from normal to about 110 and he was switched to argatroban. He has been continued on vasopressors to keep his blood pressure up. He had to have another operation on the by Dr. Shahid because of extravasation of the occipital, common femoral artery below the previously placed stent graft tracking retrograde into the lower abdomen and pelvis. He was successfully treated by deployment of new stent graft across the inguinal ligament into the common femoral artery. His anticoagulants have been stopped. Heparin-induced thrombocytopenia assay has been sent because of a drop in his platelet count. The patient has had abdominal distention. Surgery was called. This seems to be mostly postop abdominal distention, which has improved and closely being watched by General Surgery also. He had had total of 9 units of blood prior to yesterday and is getting 2 more units for a drop in his hemoglobin from 10 last night to 7.6. Platelets were 76 last night, now they are 78. INR is 1.3. D-dimers are 598 and fibrinogen is 298. The patient's creatinine has also increased from normal to 2.8. LFTs show AST of 1304 and ALT 553, total bilirubin is normal at 0.2. Alkaline phosphatase is 38. He is still on pressors. Although the pressors are being weaned. He is still intubated. There is some bleeding from the NG. Urine output is minimal. PAST MEDICAL HISTORY: As mentioned in history of present illness. PHYSICAL EXAMINATION: GENERAL: The patient is currently intubated and sedated. HEAD AND ENT: Positive for NG showing some blood-tinged. CHEST: Decreased breath sounds anteriorly. ABDOMEN: Distended. EXTREMITIES: Both legs are warm and nurse states there are no pulses felt. ASSESSMENT: 1. Thrombocytopenia, which could be from consumption. Other causes of thrombocytopenia could be heparin-induced thrombocytopenia. The patient had received heparin and his graft also is heparin lined. 2. Anemia from blood loss being controlled with transfusions. 3. Elevated liver enzymes and worsening kidney function secondary to hypotension. RECOMMENDATION PLAN: At this time, continue transfusion support. We will follow coagulation studies, may have to give him FFPs if the hemoglobin drops further. INR in the normal range. We will also monitor platelets. Awaiting heparin-induced thrombocytopenia assay. Hold all blood products. JOB# [id number] JUVENCIO/JOHN
[2017-08-13] MEDS ORDERED: NACL 0.9% 100 ML IV PRN ×2 (10:31→14:59)
[2017-08-13] MEDS: Vasostrict 20 UNIT in NACL 0.9% 100 ML IV SCH ×2 (10:49→21:54)
--- NOTE | 2017-08-13 11:18 | Progress Note ---
Assessment and Plan - Patient Problems (1) Abdominal distention Current Visit: Yes Status: Acute Plan to address problem: Patient in critical condition. Distention is combination of baseline obesity, hemorrhage, and fluid resuscitation. At this point, the abdomen continues to remain soft. I do not appreciate any rigidity or guarding. Patient at high risk for abdominal compartment syndrome. Staff had difficulty getting bladder pressures due to equipment issues. They will continue to work on this. Pulmonary pressures are unchanged from yesterday. Lactate this AM is 3.1 I have ordered q6h lactates. We will follow along closely. Patient may need a decompressive laparotomy. I have already contacted the OR to make sure that we have AbTheras available. Vital signs are better this AM. If pressor requirements remain stable, would consider starting trickle feeds (10cc/hr). Patient at high risk for poor outcome. Please call if there are any questions. Time=15min Subjective Date of service: 08/13/17 Patient Reports: Positive: other (Pt seems to indicate no abdominal pain. ) Objective Vital Signs - 12hr 08/12/17 08/12/17 08/12/17 23:14 23:15 23:19 Temperature 97.6 F Pulse Rate 93 H 96 H Respiratory 26 H 25 H Rate Blood Pressure 104/56 108/56 O2 Sat by Pulse 96 96 Oximetry 08/12/17 08/12/17 08/12/17 23:30 23:45 23:50 Temperature 97.8 F Pulse Rate 96 H 94 H Respiratory 27 H 26 H Rate Blood Pressure 107/54 106/55 O2 Sat by Pulse 96 96 Oximetry 08/13/17 08/13/17 08/13/17 00:00 01:00 02:00 Temperature Pulse Rate 95 H 96 H 98 H Respiratory 24 24 25 H Rate Blood Pressure 109/49 112/51 105/57 O2 Sat by Pulse 95 95 95 Oximetry 08/13/17 08/13/17 08/13/17 03:00 03:51 04:00 Temperature 97.2 F L Pulse Rate 100 H 101 H Respiratory 25 H 18 Rate Blood Pressure 113/55 115/60 O2 Sat by Pulse 94 95 Oximetry 08/13/17 08/13/17 08/13/17 05:00 06:00 07:00 Temperature Pulse Rate 99 H 99 H 101 H Respiratory 14 24 25 H Rate Blood Pressure 111/48 105/49 111/58 O2 Sat by Pulse 89 95 95 Oximetry 08/13/17 08:55 Temperature 97.8 F Pulse Rate 99 H Respiratory 24 Rate Blood Pressure 103/51 O2 Sat by Pulse 91 Oximetry - General physical appearance no distress, no pain - Respiratory normal expansion, normal respiratory effort, other (PIP 31; MAP 16) - Abdomen soft, bowel sounds hypoactive, distended (unchanged. ), not guarding, not rigid , other (Minimal NGT output) - Labs 08/13/17 05:46 08/13/17 07:10 Diabetes panel 08/12/17 08/13/17 08/13/17 Range/Units 21:50 05:46 07:10 Sodium 142 144 145 (137-145) mmol/L Potassium 5.4 H 4.7 4.6 (3.6-5.0) mmol/L Chloride 110.8 H 107.5 H 107.2 H (98-107) mmol/L Carbon Dioxide 18 L 19 L 19 L (22-30) mmol/L BUN 30 H 35 H 35 H (9-20) mg/dL Creatinine 2.5 H D 2.9 H 2.8 H (0.8-1.5) mg/dL Glucose 216 H 242 H 240 H (75-100) mg/dL Calcium 5.7 L* 6.3 L 6.2 L (8.4-10.2) mg/dL AST 1304 H (5-40) units/L ALT 533 H (7-56) units/L Alkaline Phosphatase 38 (35-129) units/L Total Protein 4.4 L (6.3-8.2) g/dL Albumin 2.8 L (3.9-5) g/dL Calcium panel 08/12/17 08/13/17 08/13/17 Range/Units 21:50 05:46 07:10 Calcium 5.7 L* 6.3 L 6.2 L (8.4-10.2) mg/dL Albumin 2.8 L (3.9-5) g/dL Pituitary panel 08/12/17 08/13/17 08/13/17 Range/Units 21:50 05:46 07:10 Sodium 142 144 145 (137-145) mmol/L Potassium 5.4 H 4.7 4.6 (3.6-5.0) mmol/L Chloride 110.8 H 107.5 H 107.2 H (98-107) mmol/L Carbon Dioxide 18 L 19 L 19 L (22-30) mmol/L BUN 30 H 35 H 35 H (9-20) mg/dL Creatinine 2.5 H D 2.9 H 2.8 H (0.8-1.5) mg/dL Glucose 216 H 242 H 240 H (75-100) mg/dL Calcium 5.7 L* 6.3 L 6.2 L (8.4-10.2) mg/dL Adrenal panel 08/12/17 08/13/17 08/13/17 Range/Units 21:50 05:46 07:10 Sodium 142 144 145 (137-145) mmol/L Potassium 5.4 H 4.7 4.6 (3.6-5.0) mmol/L Chloride 110.8 H 107.5 H 107.2 H (98-107) mmol/L Carbon Dioxide 18 L 19 L 19 L (22-30) mmol/L BUN 30 H 35 H 35 H (9-20) mg/dL Creatinine 2.5 H D 2.9 H 2.8 H (0.8-1.5) mg/dL Glucose 216 H 242 H 240 H (75-100) mg/dL Calcium 5.7 L* 6.3 L 6.2 L (8.4-10.2) mg/dL Total Bilirubin 0.20 (0.1-1.2) mg/dL AST 1304 H (5-40) units/L ALT 533 H (7-56) units/L Alkaline Phosphatase 38 (35-129) units/L Total Protein 4.4 L (6.3-8.2) g/dL Albumin 2.8 L (3.9-5) g/dL
--- NOTE | 2017-08-13 13:11 | Progress Note ---
Assessment and Plan Acute Hypoxic Respiratory failure Vasogenic Shock, Presumed Bleed WILLIAM Secondary to vasomotor nephropathy Severe Metabolic Acidosis Acute blood loss anemia PVD s/p right femoral end-arterectomy Acute encephalopathy s/p Massive blood transfusion Leukocytosis - continue supplemental oxygen and wean to keep sats > 90% - continue to address VAP bundle daily - continue empiric antibiotics and follow cultures / clinically for de- escalation - continue vasopresors and wean to keep MAP >/= 65 mmHg (he is on levophed and vasopressin) - continue HD/UF per nephrology prescription for volume and toxin clearance - massive transfusion protocol followed; received FFP's and platelets - hold all antocoagulation till H&H stabilizes - SCD's if OK with vascular team - continue agitation and analgesia management while avoiding benzodiazepines - Avoiding \ nephrotoxic agents; places indwelling barrientos catheter for strict I' s & O's in this critically ill patient with WILLIAM - continue enteral nutrition as tolerated - Azotemia per nephrology team otherwise - case discussed at length with surgery and in team rounds and care plan formulated - Prognosis remains guarded with high risk of decompensation from a hemodynamic standpoint and even . - continue other care per attending / other consultants .... re-evaluate in am & prn ...35' CCT Subjective Date of service: 08/13/17 Principal diagnosis: Acute Hypoxemic Respiratory Failure; Hemorrhagic Shock; WILLIAM on Dilaysis;PVD Interval history: Patient is seen today for: Acute Hypoxemic Respiratory Failure; Hemorrhagic Shock; WILLIAM on Dilaysis;PVD Seen and examined at bedside; 24 hour events reviewed; nursing and respiratory care staff consulted; remains on MVS; AMS is persistent; agitated during SAT's; remains on 70% FiO2 but appears cardiogenic pulmonary edema in setting of WILLIAM is major reason; No emesis or overt aspiration; no gross rebleeding since operative re-intervention. Objective Vital Signs - 12hr 08/13/17 08/13/17 08/13/17 02:00 03:00 03:51 Temperature 97.2 F L Pulse Rate 98 H 100 H Respiratory 25 H 25 H Rate Blood Pressure 105/57 113/55 O2 Sat by Pulse 95 94 Oximetry 08/13/17 08/13/17 08/13/17 04:00 05:00 06:00 Temperature Pulse Rate 101 H 99 H 99 H Respiratory 18 14 24 Rate Blood Pressure 115/60 111/48 105/49 O2 Sat by Pulse 95 89 95 Oximetry 08/13/17 08/13/17 08/13/17 07:00 08:00 08:55 Temperature 97.8 F Pulse Rate 101 H 97 H 99 H Respiratory 25 H 18 24 Rate Blood Pressure 111/58 104/46 103/51 O2 Sat by Pulse 95 93 91 Oximetry 08/13/17 08/13/17 08/13/17 09:00 10:00 11:00 Temperature Pulse Rate 102 H 100 H 100 H Respiratory 24 24 26 H Rate Blood Pressure 103/51 111/54 106/50 O2 Sat by Pulse 91 91 92 Oximetry Constitutional: appears uncomfortable, other (obese) Eyes: non-icteric ENT: oropharynx moist, oropharyngeal exudate pre, other (large neck circumference) Neck: supple, no lymphadenopathy, no JVD, other (RIJ CVL & VasCath) Effort: mildly labored Ascultation: Bilateral: diminished breath sounds, rales Percussion: Bilateral: not dull Cardiovascular: regular rate and rhythm, other (No R/M) Gastrointestinal: hypoactive bowel sounds, soft, non-tender, non-distended, other (no palpable HSM) Integumentary: other (post-op scars) Extremities: no cyanosis, pink and warm, no ischemia or petechiae, edema Neurologic: non-focal exam (grossly), unable to assess Psychiatric: other (unable to assess) CBC and BMP: 08/17/17 04:25 08/17/17 04:30 ABG, PT/INR, D-dimer: ABG POC ABG pH 7.282 (7.35-7.45) L 08/13/17 06:06 POC ABG pCO2 41.1 (35-45) 08/13/17 06:06 POC ABG pO2 81 (80-105) 08/13/17 06:06 POC ABG HCO3 19.4 08/13/17 06:06 POC ABG Total CO2 21 08/13/17 06:06 POC ABG O2 Sat 94 08/13/17 06:06 PT/INR, D-dimer PT 17.4 Sec. (12.2-14.9) H 08/13/17 07:10 INR 1.35 (0.87-1.13) H 08/13/17 07:10 D-Dimer 598.44 ng/mlDDU (0-234) H 08/13/17 07:10 Abnormal lab findings: Abnormal Labs 08/10/17 08/10/17 08/10/17 10:05 10:05 10:05 WBC RBC Hgb POC Hgb Hct POC Hct MCV 97 H MCH 33 H RDW Plt Count Lymph % (Auto) Lymph # Seg Neutrophils % 72.9 H Seg Neutrophils # PT 11.6 L INR 0.81 L APTT Activated Clotting Time D-Dimer Heparin Anti-Xa Level POC ABG pH POC ABG pCO2 POC ABG pO2 Potassium Chloride Carbon Dioxide BUN Creatinine 0.7 L Glucose 196 H POC Glucose Lactic Acid Calcium AST ALT Total Protein Albumin Ur Specific [place] Urine WBC (Auto) Crossmatch 08/11/17 08/11/17 08/11/17 06:50 07:03 09:50 WBC RBC Hgb POC Hgb Hct POC Hct MCV MCH RDW Plt Count Lymph % (Auto) Lymph # Seg Neutrophils % Seg Neutrophils # PT INR APTT Activated Clotting Time D-Dimer Heparin Anti-Xa Level POC ABG pH 7.270 L POC ABG pCO2 49.1 H POC ABG pO2 117 H Potassium Chloride Carbon Dioxide BUN Creatinine Glucose POC Glucose 160 H Lactic Acid Calcium AST ALT Total Protein Albumin Ur Specific [place] Urine WBC (Auto) Crossmatch See Detail 08/11/17 08/11/17 08/11/17 10:52 11:12 12:16 WBC RBC Hgb POC Hgb Hct POC Hct MCV MCH RDW Plt Count Lymph % (Auto) Lymph # Seg Neutrophils % Seg Neutrophils # PT INR APTT Activated Clotting Time 191 H 153 H D-Dimer Heparin Anti-Xa Level POC ABG pH POC ABG pCO2 POC ABG pO2 Potassium Chloride Carbon Dioxide BUN Creatinine Glucose POC Glucose 176 H Lactic Acid Calcium AST ALT Total Protein Albumin Ur Specific [place] Urine WBC (Auto) Crossmatch 08/11/17 08/11/17 08/11/17 12:27 13:07 14:39 WBC RBC Hgb POC Hgb 9.9 L 8.5 L Hct POC Hct 29 L 25 L MCV MCH RDW Plt Count Lymph % (Auto) Lymph # Seg Neutrophils % Seg Neutrophils # PT INR APTT Activated Clotting Time 186 H D-Dimer Heparin Anti-Xa Level POC ABG pH POC ABG pCO2 POC ABG pO2 Potassium Chloride Carbon Dioxide BUN Creatinine Glucose POC Glucose 183 H 197 H Lactic Acid Calcium AST ALT Total Protein Albumin Ur Specific [place] Urine WBC (Auto) Crossmatch 08/11/17 08/11/17 08/11/17 14:46 16:18 17:57 WBC 12.7 H RBC 3.00 L Hgb 9.5 L D POC Hgb Hct 28.3 L D POC Hct MCV MCH RDW 16.3 H Plt Count 105 L Lymph % (Auto) 6.7 L Lymph # 0.8 L Seg Neutrophils % 86.3 H Seg Neutrophils # 10.9 H PT INR APTT Activated Clotting Time 164 H D-Dimer Heparin Anti-Xa Level POC ABG pH POC ABG pCO2 POC ABG pO2 Potassium Chloride Carbon Dioxide BUN Creatinine Glucose POC Glucose 192 H Lactic Acid Calcium AST ALT Total Protein Albumin Ur Specific [place] Urine WBC (Auto) Crossmatch 08/11/17 08/11/17 08/11/17 17:57 20:00 20:00 WBC RBC Hgb 10.2 L POC Hgb Hct 31.1 L POC Hct MCV MCH RDW Plt Count 117 L Lymph % (Auto) Lymph # Seg Neutrophils % Seg Neutrophils # PT 15.3 H INR 1.15 H APTT 97.7 H* Activated Clotting Time D-Dimer Heparin Anti-Xa Level POC ABG pH POC ABG pCO2 POC ABG pO2 Potassium Chloride 117.4 H Carbon Dioxide 18 L BUN Creatinine 0.7 L Glucose 143 H POC Glucose Lactic Acid Calcium 6.4 L D AST ALT Total Protein Albumin Ur Specific [place] Urine WBC (Auto) Crossmatch 08/12/17 08/12/17 08/12/17 03:30 03:50 03:50 WBC RBC Hgb 9.2 L 9.1 L POC Hgb Hct 27.5 L 27.2 L POC Hct MCV MCH RDW Plt Count Lymph % (Auto) Lymph # Seg Neutrophils % Seg Neutrophils # PT INR APTT Activated Clotting Time D-Dimer Heparin Anti-Xa Level POC ABG pH POC ABG pCO2 POC ABG pO2 Potassium Chloride 113.5 H Carbon Dioxide 13 L BUN Creatinine Glucose 243 H POC Glucose Lactic Acid Calcium 6.3 L AST ALT Total Protein Albumin Ur Specific [place] Urine WBC (Auto) Crossmatch 08/12/17 08/12/17 08/12/17 07:36 08:48 16:16 WBC RBC Hgb POC Hgb Hct POC Hct MCV MCH RDW Plt Count Lymph % (Auto) Lymph # Seg Neutrophils % Seg Neutrophils # PT INR APTT Activated Clotting Time D-Dimer Heparin Anti-Xa Level POC ABG pH 6.952 L 7.159 L POC ABG pCO2 49.1 H 47.8 H POC ABG pO2 76 L 106 H Potassium Chloride Carbon Dioxide BUN Creatinine Glucose POC Glucose 246 H Lactic Acid Calcium AST ALT Total Protein Albumin Ur Specific [place] Urine WBC (Auto) Crossmatch 08/12/17 08/12/17 08/12/17 17:54 18:30 20:15 WBC 17.9 H RBC 3.29 L Hgb 10.0 L POC Hgb Hct 29.3 L POC Hct MCV MCH RDW 15.5 H Plt Count 76 L Lymph % (Auto) Lymph # Seg Neutrophils % Seg Neutrophils # PT INR APTT Activated Clotting Time D-Dimer Heparin Anti-Xa Level POC ABG pH POC ABG pCO2 POC ABG pO2 Potassium Chloride Carbon Dioxide BUN Creatinine Glucose POC Glucose 240 H Lactic Acid Calcium AST ALT Total Protein Albumin Ur Specific [place] 1.051 H Urine WBC (Auto) > 182.0 H Crossmatch 08/12/17 08/12/17 08/13/17 21:50 21:50 03:20 WBC RBC Hgb POC Hgb Hct POC Hct MCV MCH RDW Plt Count Lymph % (Auto) Lymph # Seg Neutrophils % Seg Neutrophils # PT INR APTT Activated Clotting Time D-Dimer Heparin Anti-Xa Level < 0.10 L POC ABG pH POC ABG pCO2 POC ABG pO2 Potassium 5.4 H Chloride 110.8 H Carbon Dioxide 18 L BUN 30 H Creatinine 2.5 H D Glucose 216 H POC Glucose 235 H Lactic Acid Calcium 5.7 L* AST ALT Total Protein Albumin Ur Specific [place] Urine WBC (Auto) Crossmatch 08/13/17 08/13/17 08/13/17 05:46 05:46 06:06 WBC 14.6 H RBC 2.49 L Hgb 7.6 L POC Hgb Hct 22.3 L D POC Hct MCV MCH RDW 15.7 H Plt Count 78 L Lymph % (Auto) 10.3 L Lymph # Seg Neutrophils % 84.1 H Seg Neutrophils # 12.3 H PT INR APTT Activated Clotting Time D-Dimer Heparin Anti-Xa Level POC ABG pH 7.282 L POC ABG pCO2 POC ABG pO2 Potassium Chloride 107.5 H Carbon Dioxide 19 L BUN 35 H Creatinine 2.9 H Glucose 242 H POC Glucose Lactic Acid Calcium 6.3 L AST 1304 H ALT 533 H Total Protein 4.4 L Albumin 2.8 L Ur Specific [place] Urine WBC (Auto) Crossmatch 08/13/17 08/13/17 08/13/17 07:10 07:10 09:00 WBC RBC Hgb POC Hgb Hct POC Hct MCV MCH RDW Plt Count Lymph % (Auto) Lymph # Seg Neutrophils % Seg Neutrophils # PT 17.4 H INR 1.35 H APTT Activated Clotting Time D-Dimer 598.44 H Heparin Anti-Xa Level POC ABG pH POC ABG pCO2 POC ABG pO2 Potassium Chloride 107.2 H Carbon Dioxide 19 L BUN 35 H Creatinine 2.8 H Glucose 240 H POC Glucose Lactic Acid 3.10 H* Calcium 6.2 L AST ALT Total Protein Albumin Ur Specific [place] Urine WBC (Auto) Crossmatch Chest x-ray: image reviewed (bilateral interstitial edema pattern with small pleural effusions) Allied health notes reviewed: nursing
--- NOTE | 2017-08-13 13:53 | Operative Report ---
Operative Report Operative Report: Operative note: Date: 08/13/2017 Preoperative diagnosis: Renal failure Postoperative diagnosis: Same. Operation: Right IJ Vas-Cath insertion Surgeon: Raquel Sam. Asst.: None Anesthesia: Local EBL: Minimal Findings: None Indications: Patient developed ATN requiring HD Operative details: Patient at the bedside in ICU prepped and draped right neck in a sterile fashion. After timeout performed and all team members in the agreement right IJvein was accessed under ultrasound guidance with micropuncture needle and exchanged for micropuncture sheath. Wire 0.035 was advanced in the SVC. skin incision was made with 11 blade and serially dilated skin past with subsequent insertion of Vas-Cath catheter 15 cm in length. Parts were checked for good flow and flushed with saline and locked with 1.4 mL of heparin. Catheter was secured in place with 3-0 nylon stitches and sterile dressing applied. He tolerated the procedure well.
[2017-08-13] MEDS: [UNRECOGNIZED DRUG - OTHER] OS SCH ×2 (14:00→20:20)
--- NOTE | 2017-08-13 14:33 | XRay Report ---
AP CHEST: HISTORY: Central line placement A second right IJ venous catheter has been inserted which terminates at the cavoatrial junction. There is no evidence of pneumothorax. The endotracheal tube and nasogastric tube remain in good position. Mild cardiomegaly and pulmonary venous congestion is identified. Trace pleural effusions are suspected which appear to be new. IMPRESSION: Right IJ catheter placement as described. No pneumothorax. Mild volume overload.
[2017-08-13] MEDS: VITAMIN B-1 100 MG in NACL 0.9% 50 ML IV SCH ×2 (14:47)
--- NOTE | 2017-08-13 15:32 | Operative Report ---
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 OPERATIVE PROCEDURE: 1. Placement of Viabahn stent graft, right common femoral artery. 2. Diagnostic single leg runoff, right leg. 3. Duplex guided cannulation left common femoral artery. SURGEON: Shade Shahid MD [employer] PILOT: Abrahan Palencia PA-C. ESTIMATED BLOOD LOSS: Minimal. COMPLICATIONS: None. INSTRUMENT COUNTS: Correct. SPECIMENS: None. CONDITION: Critical. SURGICAL HISTORY: The patient with previous endovascular procedure involving right common femoral artery endarterectomy and patch angioplasty and stenting of the external iliac on the right and the common iliac on the left. Now with persistent bleeding into the retroperitoneum. CT scan shows extravasation from ruptured pseudoaneurysm in the distal external iliac and proximal common femoral arteries on the right. Surgical findings successful exclusion of the aneurysm and control of bleeding. DESCRIPTION OF PROCEDURE: The patient was taken to the operating room and both groins and the abdomen were then prepped and draped using standard sterile technique. The patient was given minimal sedation because of his precarious hemodynamics. Under local anesthesia, duplex probe was brought into the surgical field sterilely and the left common femoral artery was identified and cannulated. This duplex was required because the artery was not palpable. Micro needle was used and a microwire was placed. There was considerable scar tissue from old surgeries and advancement was difficult. I used a Milian- Counand needle over the micro wire and was able to cannulate the common femoral artery. I then exchanged for Advantage wire and then gradually upsized to a 7-Vietnamese introducer. Using a rim catheter and Advantage wire, I was able to gain access to the contralateral iliac artery on the right. I then advanced the rim catheter and wire into the external iliac. Contrast was then injected, which showed that the external iliac and the previously placed Viabahn stent graft were patent. There was a gap between the distal Viabahn and the endarterectomy in the common femoral and there was extravasation of blood between the two and that went retrograde above the inguinal ligament in retroperitoneum. Advanced the Advantage wire down the profunda femoral. Then placed a 7-Vietnamese Cameron destination sheath into the right common iliac artery. At that point, I then advanced a Quick-Cross into the distal profunda femoral and then exchanged the 0.035 wire for a 0.014 wire. An 8 x 10 Viabahn stent graft was then brought into the field, advanced up and over and down into the common femoral artery into the proximal part of the endarterectomized segment, first bridging the portion of the vessel that appeared to have the ruptured pseudoaneurysm. I then deployed the stent graft and then posted it with a 10 x 4 balloon. Repeat contrast injection showed complete resolution of extravasation and as an added benefit the distal external iliac and proximal common femoral arteries caliber had dramatically improved. There was excellent flow distally. Should note that we briefly had heparinized the patient and then once we got argatroban switch him to argatroban because of potential HIT. The patient had been given blood transfusions during surgery for previous blood loss. We then removed all guidewires, catheters and then removed the destination sheath and exchanged for an Angio-Seal, which was then deployed with excellent hemostatic closure. The patient tolerated the procedure well and was returned to the ICU in critical, but now considerably stable condition with control of the bleeding. JOB# [id number] JEREL/JOHN JUAN
[2017-08-13 16:27] LABS: Hepatitis A Antibody IgM Non-Reactive (NonReactive); Hepatitis B Core IgM Non-Reactive (NonReactive); Hepatitis B Surface Antigen Non-Reactive (Negative); Hepatitis C Virus Antibody Non-Reactive (NonReactive)
[2017-08-13] MEDS: HEPARIN IV PRN (18:10)
--- NOTE | 2017-08-13 19:33 | Progress Note ---
Assessment and Plan Assessment and plan: Patient is 66 year old male with past medical history of hypertension, Type 2 DM , hyperlipidemia, CAD, PAD, who underwent elective vascular procedure for [employer] , and is postop day 1 status post complex femoral endarterectomy and iliac artery stenting. Patient become hypotensive multiple fluid resuscitation and blood products. Also began to exhibit some altered mental status for which were consulted. On arrival the patient appears to be in moderate respiratory distress which saturation of 83 on 50% Ventimask. He is unable to provide much information. He does inform me that he drinks alcohol but not quantified. He denied any chest pain, nausea vomiting or diarrhea. He is currently on vasopressin. Acute Hypoxic Respiratory failure Vasogenic Shock, Presumed Bleed WILLIAM Secondary to vasomotor nephropathy Severe Metabolic Acidosis ACUTE BLOOD LOSS ANEMIA WITH REFRACTORY EVAL FOR BLEED Leukocytosis PLAN: STAT ABG, CHEST XRAY GIVE 2 liters FLUIDS Discussed with Carpet Or Rug Layer Helper Insert [place] for accurate I/O GIVE 2 AMPS OF BICARB Discussed with core filer and vascaular surgeon Discontinue Enoxaparin Dvt and GI prophy History Interval history: patient seen and examined, remains of full ventilatory support. Hospitalist Physical - Physical exam Narrative exam: VITAL SIGNS: Reviewed. GENERAL: The patient appeared ill, moderate obese comfortable vital signs as documented. HEAD: No signs of head trauma. EYES: Pupils are equal. Extraocular motions intact. EARS: Hearing grossly intact. MOUTH: Oropharynx is normal. NECK: No adenopathy, no JVD. CHEST: Chest with clear breath sounds bilaterally. No wheezes, rales, or rhonchi. CARDIAC: Regular rate and rhythm. S1 and S2, without murmurs, gallops, or rubs. VASCULAR: No Edema. Peripheral pulses normal and equal in all extremities. ABDOMEN: Soft, without detectable tenderness. Distended and tympanic No rebound or guarding, and no masses palpated. Bowel Sounds normal. MUSCULOSKELETAL: Good range of motion of all major joints. Extremities without clubbing, cyanosis or edema. NEUROLOGIC EXAM: Encephalopathic No focal sensory or strength deficits. Speech normal. Follows commands. PSYCHIATRIC: Mood normal. SKIN: Ecchymosis of the right femoral area. - Constitutional Vitals: Temp Pulse Resp BP Pulse Ox 99.1 F 107 H 30 H 143/67 93 08/13/17 18:05 08/13/17 18:05 08/13/17 18:05 08/13/17 18:05 08/13/17 18:05 General appearance: Present: mild distress Results - Labs CBC & Chem 7: 08/14/17 05:00 08/14/17 11:28 Labs: Laboratory Last Values WBC 14.6 K/mm3 (4.5-11.0) H 08/13/17 05:46 RBC 2.49 M/mm3 (3.65-5.03) L 08/13/17 05:46 Hgb 7.6 gm/dl (11.8-15.2) L 08/13/17 05:46 POC Hgb 8.5 (12-17) L 08/11/17 14:39 Hct 22.3 % (35.5-45.6) L D 08/13/17 05:46 POC Hct 25 (38-51) L 08/11/17 14:39 MCV 90 fl (84-94) 08/13/17 05:46 MCH 31 pg (28-32) 08/13/17 05:46 MCHC 34 % (32-34) 08/13/17 05:46 RDW 15.7 % (13.2-15.2) H 08/13/17 05:46 Plt Count 78 K/mm3 (140-440) L 08/13/17 05:46 Lymph % (Auto) 10.3 % (13.4-35.0) L 08/13/17 05:46 [place] % (Auto) 5.3 % (0.0-7.3) 08/13/17 05:46 Eos % (Auto) 0.2 % (0.0-4.3) 08/13/17 05:46 Baso % (Auto) 0.1 % (0.0-1.8) 08/13/17 05:46 Lymph # 1.5 K/mm3 (1.2-5.4) 08/13/17 05:46 [place] # 0.8 K/mm3 (0.0-0.8) 08/13/17 05:46 Eos # 0.0 K/mm3 (0.0-0.4) 08/13/17 05:46 Baso # 0.0 K/mm3 (0.0-0.1) 08/13/17 05:46 Seg Neutrophils % 84.1 % (40.0-70.0) H 08/13/17 05:46 Seg Neutrophils # 12.3 K/mm3 (1.8-7.7) H 08/13/17 05:46 PT 17.4 Sec. (12.2-14.9) H 08/13/17 07:10 INR 1.35 (0.87-1.13) H 08/13/17 07:10 APTT 35.1 Sec. (24.2-36.6) 08/13/17 07:10 Activated Clotting Time 164 (74-137) H 08/11/17 14:46 Fibrinogen 298 mg/dl (211-480) 08/13/17 07:10 D-Dimer 598.44 ng/mlDDU (0-234) H 08/13/17 07:10 Heparin Anti-Xa Level < 0.10 U.I./ml (0.3-0.7) L 08/12/17 21:50 POC ABG pH 7.282 (7.35-7.45) L 08/13/17 06:06 POC ABG pCO2 41.1 (35-45) 08/13/17 06:06 POC ABG pO2 81 (80-105) 08/13/17 06:06 POC ABG HCO3 19.4 08/13/17 06:06 POC ABG Total CO2 21 08/13/17 06:06 POC ABG O2 Sat 94 08/13/17 06:06 POC ABG Base Excess -7 08/13/17 06:06 POC Sodium 142 mmol/L (138-146) 08/11/17 14:39 POC Potassium 4.2 (3.5-4.9) 08/11/17 14:39 POC Chloride 109 (98-109) 08/11/17 14:39 FiO2 80 % 08/13/17 06:06 Sodium 145 mmol/L (137-145) 08/13/17 07:10 Potassium 4.6 mmol/L (3.6-5.0) 08/13/17 07:10 Chloride 107.2 mmol/L (98-107) H 08/13/17 07:10 Carbon Dioxide 19 mmol/L (22-30) L 08/13/17 07:10 Anion Gap 23 mmol/L 08/13/17 07:10 POC BUN 13 mg/dl (8-26) 08/11/17 14:39 BUN 35 mg/dL (9-20) H 08/13/17 07:10 Creatinine 2.8 mg/dL (0.8-1.5) H 08/13/17 07:10 Estimated GFR 23 ml/min 08/13/17 07:10 BUN/Creatinine Ratio 13 % 08/13/17 07:10 Glucose 240 mg/dL (75-100) H 08/13/17 07:10 POC Glucose 247 (70-105) H 08/13/17 18:31 Lactic Acid 2.20 mmol/L (0.7-2.0) H* 08/13/17 17:55 Calcium 6.2 mg/dL (8.4-10.2) L 08/13/17 07:10 Total Bilirubin 0.20 mg/dL (0.1-1.2) 08/13/17 05:46 AST 1304 units/L (5-40) H 08/13/17 05:46 ALT 533 units/L (7-56) H 08/13/17 05:46 Alkaline Phosphatase 38 units/L (35-129) 08/13/17 05:46 Total Protein 4.4 g/dL (6.3-8.2) L 08/13/17 05:46 Albumin 2.8 g/dL (3.9-5) L 08/13/17 05:46 Albumin/Globulin Ratio 1.8 % 08/13/17 05:46 Urine Color Red (Yellow) 08/12/17 18:30 Urine Turbidity Hazy (Clear) 08/12/17 18:30 Urine pH 5.0 (5.0-7.0) 08/12/17 18:30 Ur Specific [place] 1.051 (1.003-1.030) H 08/12/17 18:30 Urine Protein 100 mg/dl mg/dL (Negative) 08/12/17 18:30 Urine Glucose (UA) 50 mg/dL (Negative) 08/12/17 18:30 Urine Ketones Neg mg/dL (Negative) 08/12/17 18:30 Urine Blood Lg (Negative) 08/12/17 18:30 Urine Nitrite Neg (Negative) 08/12/17 18:30 Urine Bilirubin Neg (Negative) 08/12/17 18:30 Urine Urobilinogen < 2.0 mg/dL (<2.0) 08/12/17 18:30 Ur Leukocyte Esterase Tr (Negative) 08/12/17 18:30 Urine WBC (Auto) > 182.0 /HPF (0.0-6.0) H 08/12/17 18:30 Urine RBC (Auto) > 182.0 /HPF (0.0-6.0) 08/12/17 18:30 Urine Mucus 1+ /HPF 08/12/17 18:30 Hepatitis A IgM Ab Non-reactive (NonReactive) 08/13/17 15:35 Hep Bs Antigen Non-reactive (Negative) 08/13/17 15:35 Hep B Core IgM Ab Non-reactive (NonReactive) 08/13/17 15:35 Hepatitis C Antibody Non-reactive (NonReactive) 08/13/17 15:35 Blood Type O POSITIVE 08/11/17 06:50 Antibody Screen Negative 08/11/17 06:50 Crossmatch See Detail 08/11/17 06:50
[2017-08-13] MEDS ORDERED: GLUCOPHAGE PO SCH (22:00)
--- NOTE | 2017-08-14 02:51 | XRay Report ---
FINAL REPORT EXAM: XR CHEST 1V AP HISTORY: follow up respiratory failure COMPARISON: August 13, 2017. FINDINGS: Frontal view(s) of the chest obtained. Stable mild to moderate cardiac enlargement. A 2nd right IJ line is in place with distal tip projecting over the distal SVC. ET tube and NG tube remain in place. Increasing hazy opacities mid to lower lungs with small effusions concerning for worsening edema. Superimposed pneumonia is not excluded. No pneumothorax. IMPRESSION: Placement of a 2nd right IJ line in satisfactory position. Increasing hazy opacities mid to lower lungs with small to moderate effusions concerning for pulmonary edema. Superimposed pneumonia is not excluded.
[2017-08-14] MEDS: LEVOPHED 8 MG in NACL 0.9% 250ML 242 ML IV SCH (03:10)
[2017-08-14 05:23] LABS: Hematocrit 23.2 % (35.5-45.6); Hemoglobin 7.9 gm/dl (11.8-15.2); Mean Corpuscular HGB Conc 34 % (32-34); Mean Corpuscular Hemoglobin 30 pg (28-32); Mean Corpuscular Volume 87 fl (84-94); Red Blood Count 2.66 M/mm3 (3.65-5.03)
[2017-08-14 05:39] LABS: INR 1.18 (0.87-1.13)
[2017-08-14 05:40] LABS: Partial Thromboplastin Time 31.7 Sec. (24.2-36.6); Platelet Count 75 K/mm3 (140-440)
[2017-08-14] MEDS: HumaLOG SUB-Q SCH ×4 (05:41→23:25)
[2017-08-14] MEDS: ATIVAN IV PRN (08:50)
[2017-08-14] MEDS: FOLVITE PO SCH (09:19)
[2017-08-14] MEDS: PAXIL PO SCH (09:19)
[2017-08-14] MEDS: HALFPRIN EC PO SCH (09:20)
[2017-08-14] MEDS: THERAGRAN Tab PO SCH (09:20)
[2017-08-14] MEDS: Vasostrict 20 UNIT in NACL 0.9% 100 ML IV SCH (09:48)
[2017-08-14] MEDS: DOXYCYCLINE HYCLATE 100 MG in NACL 0.9% 250ML 250 ML IV SCH ×2 (09:50→21:51)
[2017-08-14] MEDS ORDERED: LEVAQUIN PO SCH (10:00)
[2017-08-14] MEDS ORDERED: LEVAQUIN 750MG/150ML 750 MG/150 ML BAG IV SCH (10:00)
[2017-08-14] MEDS ORDERED: cefTRIAXone 1 GM in NACL 0.9% 20 ML IV SCH (10:00)
[2017-08-14] MEDS: PEPCID IV SCH (10:01)
[2017-08-14] MEDS: [UNRECOGNIZED DRUG - OTHER] OS SCH ×3 (10:02→21:50)
--- NOTE | 2017-08-14 10:13 | Ultrasound Report ---
ULTRASOUND SCROTAL INDICATION: Scrotal edema, presumed epididymitis. COMPARISON: None similar. FINDINGS: Longitudinal and transverse grayscale and color flow sonographic evaluation of the scrotum and its contents demonstrates normal testicular contour and echotexture bilaterally without suspicious intrinsic lesions. A nonspecific 2 mm peripheral left testicular echogenicity, image 40. Preserved bilateral testicular blood flow. Right testicle estimated at 3.7 x 2.3 x 2.2 cm while the left testicle is 2.3 x 2.7 x 3.3 cm. Extensive diffuse scrotal heterogeneity/edema suspected. Small bilateral hydroceles as well, right slightly larger than left, though fairly anechoic. Right epididymal head approximately 1.4 x 1.2 cm, image 12 with an approximately 0.7 cm intrinsic cyst or spermatocele, image 15. Left epididymal head is 1.4 x 0.8 cm, image 31 with an approximately 0.3 cm hypoechoic cyst or spermatocele, image 33. No demonstratable hypervascularity. CONCLUSION: 1. Extensive/diffuse scrotal edema, exact etiology uncertain, though may be related to systemic causes, amongst others. 2. No evidence of testicular torsion sonographically. Small bilateral epididymal head cysts and small bilateral hydroceles though noted. Please also correlate clinically. Thank you for the opportunity to participate in this patient's care.
[2017-08-14] MEDS: VITAMIN B-1 100 MG in NACL 0.9% 50 ML IV SCH (11:00)
[2017-08-14] MEDS: fentaNYL DRIP Premix 2,000 MCG/100 ML BAG IV SCH (11:27)
--- NOTE | 2017-08-14 11:55 | Progress Note ---
Assessment and Plan - Patient Problems (1) Abdominal distention Current Visit: Yes Status: Acute Plan to address problem: Patient in critical condition. Distention is combination of baseline obesity, hemorrhage, and fluid resuscitation. At this point, the abdomen continues to remain soft, but slightly firmer today. Patient at high risk for abdominal compartment syndrome. Staff had difficulty getting bladder pressures due to equipment issues. They will continue to work on this. Pulmonary pressures are slightly higher this AM, but he is very agitated. Will need to reassess later today. If rising, will need to consider abdominal decompression. Lactate this AM is normal at 1.7. No need for further serial lactates. We will follow along closely. Worried that agitation this AM may be related to Etoh Withdrawal based on the reported drinking history. Defer to [facility]. As hemodynamics and vasopressors have been stable, would recommend trickle tube feeds (10cc/hr) - do not advance at this time. Patient at high risk for poor outcome. Please call if there are any questions. Time=20min Subjective Date of service: 08/14/17 Patient Reports: Positive: no flatus, no bowel movement, other (Staff reports no events o/n. This AM very agitated. Minimal NGT output. No bowel activity. Staff reports drinking history.) Objective Vital Signs - 12hr 08/14/17 08/14/17 08/14/17 00:00 00:01 00:02 Temperature 98.7 F Pulse Rate 92 H 90 Respiratory 30 H Rate Blood Pressure 125/61 120/58 O2 Sat by Pulse 94 94 Oximetry 08/14/17 08/14/17 08/14/17 01:01 01:35 02:01 Temperature Pulse Rate 90 91 H Respiratory 30 H 30 H Rate Blood Pressure 120/58 122/63 O2 Sat by Pulse 94 90 94 Oximetry 08/14/17 08/14/17 08/14/17 03:01 03:30 04:00 Temperature 98.8 F Pulse Rate 93 H Respiratory 30 H Rate Blood Pressure 129/55 O2 Sat by Pulse 93 90 Oximetry 08/14/17 08/14/17 08/14/17 04:01 04:26 05:01 Temperature Pulse Rate 90 92 H 94 H Respiratory 30 H 30 H Rate Blood Pressure 132/60 124/48 171/127 O2 Sat by Pulse 95 94 96 Oximetry 08/14/17 08/14/17 08/14/17 05:50 06:01 08:00 Temperature Pulse Rate 94 H 94 H Respiratory 30 H Rate Blood Pressure 136/58 107/56 O2 Sat by Pulse 90 96 95 Oximetry - General physical appearance moderate distress, other (Very agitated. Diaphoretic. Not following commands. Awake. ) - Respiratory other (PIP mid to low 30s; MAP upper teens.) - Abdomen soft, bowel sounds hypoactive (none), distended (slightly firmer today. Size appears to be about the same.), guarding (voluntary due to current agitation), not rigid, other (NGT output minimal and appears like gastric contents in tubing. ) - Labs 08/14/17 05:00 08/13/17 07:10
[2017-08-14 12:04] LABS: Calcium 7.6 mg/dL (8.4-10.2)
[2017-08-14] MEDS: VITAMIN B-1 PO SCH (12:13)
[2017-08-14] MEDS ORDERED: NACL 0.9% 100 ML IV PRN (12:37)
--- NOTE | 2017-08-14 12:55 | Progress Note ---
Assessment and Plan Pt remains on mechanical ventilation. S/p vas cath placement and subsequent HD. Continues on vasopressor agents, but weaning down. Continue supportive care, discussed pts condition with the pts family at the bedside. - Patient Problems (1) Atherosclerosis of [place] arteries of extremity with intermittent claudication Current Visit: No Status: Acute (2) Abdominal distention Current Visit: Yes Status: Acute (3) Acute renal failure due to tubular necrosis Current Visit: Yes Status: Acute (4) Hemorrhagic shock Current Visit: Yes Status: Acute (5) Metabolic acidosis Current Visit: Yes Status: Acute Subjective Date of service: 08/14/17 Principal diagnosis: PVD Interval history: Pt sedated on mechanical ventilation. Objective - Constitutional Vitals: Vital Signs - 12hr 08/14/17 08/14/17 08/14/17 01:01 01:35 02:01 Temperature Pulse Rate 90 91 H Respiratory 30 H 30 H Rate Blood Pressure 120/58 122/63 O2 Sat by Pulse 94 90 94 Oximetry O2 Sat by Pulse Oximetry [ Anterior Bilateral Throughout] 08/14/17 08/14/17 08/14/17 03:01 03:30 04:00 Temperature 98.8 F Pulse Rate 93 H Respiratory 30 H Rate Blood Pressure 129/55 O2 Sat by Pulse 93 90 Oximetry O2 Sat by Pulse Oximetry [ Anterior Bilateral Throughout] 08/14/17 08/14/17 08/14/17 04:01 04:26 05:01 Temperature Pulse Rate 90 92 H 94 H Respiratory 30 H 30 H Rate Blood Pressure 132/60 124/48 171/127 O2 Sat by Pulse 95 94 96 Oximetry O2 Sat by Pulse Oximetry [ Anterior Bilateral Throughout] 08/14/17 08/14/17 08/14/17 05:50 06:01 07:01 Temperature Pulse Rate 94 H 97 H Respiratory 30 H 30 H Rate Blood Pressure 136/58 122/56 O2 Sat by Pulse 90 96 95 Oximetry O2 Sat by Pulse Oximetry [ Anterior Bilateral Throughout] 08/14/17 08/14/17 08/14/17 08:00 08:01 09:00 Temperature Pulse Rate 94 H 100 H 110 H Respiratory 30 H 30 H Rate Blood Pressure 107/56 117/66 110/60 O2 Sat by Pulse 95 94 92 Oximetry O2 Sat by Pulse Oximetry [ Anterior Bilateral Throughout] 08/14/17 08/14/17 08/14/17 10:01 11:01 12:01 Temperature Pulse Rate 103 H 110 H 114 H Respiratory 18 19 11 L Rate Blood Pressure 122/57 153/67 163/55 O2 Sat by Pulse 96 96 94 Oximetry O2 Sat by Pulse Oximetry [ Anterior Bilateral Throughout] 08/14/17 08/14/17 08/14/17 12:15 12:30 12:45 Temperature 98.6 F Pulse Rate 114 H 114 H 114 H Respiratory 21 Rate Blood Pressure 139/52 139/52 136/52 O2 Sat by Pulse Oximetry O2 Sat by Pulse 95 Oximetry [ Anterior Bilateral Throughout] General appearance: Present: no acute distress - EENT ENT: other (ETT in place.) - Neck Neck: supple - Respiratory Respiratory effort: other (on mechanical ventilation.) - Cardiovascular Rhythm: other (tachy) Extremities: normal temperature (warm to mid foot) Extremity abnormal: edema (diffuse generalized edema), pulses diminished - Neurologic Neurologic: other (sedated on vent) - Labs CBC & Chem 7: 08/14/17 05:00 08/14/17 11:28 Labs: Abnormal lab results 08/11/17 08/13/17 08/13/17 Range/Units 06:50 17:55 18:31 WBC (4.5-11.0) K/mm3 RBC (3.65-5.03) M/mm3 Hgb (11.8-15.2) gm/dl Hct (35.5-45.6) % RDW (13.2-15.2) % Plt Count (140-440) K/mm3 PT (12.2-14.9) Sec. INR (0.87-1.13) D-Dimer (0-234) ng/mlDDU POC ABG pH (7.35-7.45) POC ABG pCO2 (35-45) POC ABG pO2 (80-105) BUN (9-20) mg/dL Creatinine (0.8-1.5) mg/dL Glucose (75-100) mg/dL POC Glucose 247 H (70-105) Lactic Acid 2.20 H* (0.7-2.0) mmol/L Calcium (8.4-10.2) mg/dL C-Reactive Protein (0.00-1.30) mg/dL Crossmatch See Detail 08/13/17 08/13/17 08/14/17 Range/Units 21:19 23:34 00:10 WBC (4.5-11.0) K/mm3 RBC (3.65-5.03) M/mm3 Hgb (11.8-15.2) gm/dl Hct (35.5-45.6) % RDW (13.2-15.2) % Plt Count (140-440) K/mm3 PT (12.2-14.9) Sec. INR (0.87-1.13) D-Dimer (0-234) ng/mlDDU POC ABG pH 7.451 H (7.35-7.45) POC ABG pCO2 33.0 L (35-45) POC ABG pO2 53 L (80-105) BUN (9-20) mg/dL Creatinine (0.8-1.5) mg/dL Glucose (75-100) mg/dL POC Glucose 237 H (70-105) Lactic Acid 2.70 H* (0.7-2.0) mmol/L Calcium (8.4-10.2) mg/dL C-Reactive Protein (0.00-1.30) mg/dL Crossmatch 08/14/17 08/14/17 08/14/17 Range/Units 05:00 05:00 05:11 WBC 14.2 H (4.5-11.0) K/mm3 RBC 2.66 L (3.65-5.03) M/mm3 Hgb 7.9 L (11.8-15.2) gm/dl Hct 23.2 L (35.5-45.6) % RDW 16.0 H (13.2-15.2) % Plt Count 75 L (140-440) K/mm3 PT 15.7 H (12.2-14.9) Sec. INR 1.18 H (0.87-1.13) D-Dimer 950.64 H (0-234) ng/mlDDU POC ABG pH (7.35-7.45) POC ABG pCO2 (35-45) POC ABG pO2 (80-105) BUN (9-20) mg/dL Creatinine (0.8-1.5) mg/dL Glucose (75-100) mg/dL POC Glucose 227 H (70-105) Lactic Acid (0.7-2.0) mmol/L Calcium (8.4-10.2) mg/dL C-Reactive Protein (0.00-1.30) mg/dL Crossmatch 08/14/17 08/14/17 08/14/17 Range/Units 10:26 11:28 11:28 WBC (4.5-11.0) K/mm3 RBC (3.65-5.03) M/mm3 Hgb (11.8-15.2) gm/dl Hct (35.5-45.6) % RDW (13.2-15.2) % Plt Count (140-440) K/mm3 PT (12.2-14.9) Sec. INR (0.87-1.13) D-Dimer (0-234) ng/mlDDU POC ABG pH (7.35-7.45) POC ABG pCO2 (35-45) POC ABG pO2 78 L (80-105) BUN 43 H (9-20) mg/dL Creatinine 3.6 H (0.8-1.5) mg/dL Glucose 209 H (75-100) mg/dL POC Glucose (70-105) Lactic Acid (0.7-2.0) mmol/L Calcium 7.6 L D (8.4-10.2) mg/dL C-Reactive Protein 29.00 H (0.00-1.30) mg/dL Crossmatch
--- NOTE | 2017-08-14 13:40 | Hem/Onc Progress Note ---
Assessment and Plan - Patient Problems (1) Hemorrhagic shock Current Visit: Yes Status: Acute Plan to address problem: Suspect secondary to bleeding. Await HIT panel. D/w vascular medicine and nursing. Subjective Date of service: 08/14/17 Interval history: He is on dialysis. Bed bound. very poor PS. Objective - Constitutional Vitals: Last Vital Signs Temp 98.6 F 08/14/17 12:15 Pulse 117 H 08/14/17 13:31 Resp 18 08/14/17 13:01 BP 137/52 08/14/17 13:31 Pulse Ox 94 08/14/17 13:01 - EENT Lymph node exam: negative cervical - Neck Neck: supple - Respiratory Respiratory: bilateral: CTA - Cardiovascular Rhythm: regular - Labs Lab Results: Laboratory Results - last 24 hr 08/11/17 08/13/17 08/13/17 06:50 15:35 17:55 WBC RBC Hgb Hct MCV MCH MCHC RDW Plt Count PT INR APTT Fibrinogen D-Dimer POC ABG pH POC ABG pCO2 POC ABG pO2 POC ABG HCO3 POC ABG Total CO2 POC ABG O2 Sat POC ABG Base Excess FiO2 Sodium Potassium Chloride Carbon Dioxide Anion Gap BUN Creatinine Estimated GFR BUN/Creatinine Ratio Glucose POC Glucose Lactic Acid 2.20 H* Calcium C-Reactive Protein Hepatitis A IgM Ab Non-reactive Hep Bs Antigen Non-reactive Hep B Core IgM Ab Non-reactive Hepatitis C Antibody Non-reactive Blood Type O POSITIVE Antibody Screen Negative Crossmatch See Detail 08/13/17 08/13/17 08/13/17 18:31 21:19 23:34 WBC RBC Hgb Hct MCV MCH MCHC RDW Plt Count PT INR APTT Fibrinogen D-Dimer POC ABG pH 7.451 H POC ABG pCO2 33.0 L POC ABG pO2 53 L POC ABG HCO3 23.0 POC ABG Total CO2 24 POC ABG O2 Sat 89 POC ABG Base Excess -1 FiO2 70 Sodium Potassium Chloride Carbon Dioxide Anion Gap BUN Creatinine Estimated GFR BUN/Creatinine Ratio Glucose POC Glucose 247 H 237 H Lactic Acid Calcium C-Reactive Protein Hepatitis A IgM Ab Hep Bs Antigen Hep B Core IgM Ab Hepatitis C Antibody Blood Type Antibody Screen Crossmatch 08/14/17 08/14/17 08/14/17 00:10 05:00 05:00 WBC RBC Hgb Hct MCV MCH MCHC RDW Plt Count PT 15.7 H INR 1.18 H APTT 31.7 Fibrinogen 424 D-Dimer 950.64 H POC ABG pH POC ABG pCO2 POC ABG pO2 POC ABG HCO3 POC ABG Total CO2 POC ABG O2 Sat POC ABG Base Excess FiO2 Sodium Potassium Chloride Carbon Dioxide Anion Gap BUN Creatinine Estimated GFR BUN/Creatinine Ratio Glucose POC Glucose Lactic Acid 2.70 H* 1.70 Calcium C-Reactive Protein Hepatitis A IgM Ab Hep Bs Antigen Hep B Core IgM Ab Hepatitis C Antibody Blood Type Antibody Screen Crossmatch 08/14/17 08/14/17 08/14/17 05:00 05:11 10:26 WBC 14.2 H RBC 2.66 L Hgb 7.9 L Hct 23.2 L MCV 87 MCH 30 MCHC 34 RDW 16.0 H Plt Count 75 L PT INR APTT Fibrinogen D-Dimer POC ABG pH 7.400 POC ABG pCO2 37.6 POC ABG pO2 78 L POC ABG HCO3 23.3 POC ABG Total CO2 24 POC ABG O2 Sat 95 POC ABG Base Excess -1 FiO2 70 Sodium Potassium Chloride Carbon Dioxide Anion Gap BUN Creatinine Estimated GFR BUN/Creatinine Ratio Glucose POC Glucose 227 H Lactic Acid Calcium C-Reactive Protein Hepatitis A IgM Ab Hep Bs Antigen Hep B Core IgM Ab Hepatitis C Antibody Blood Type Antibody Screen Crossmatch 08/14/17 08/14/17 11:28 11:28 WBC RBC Hgb Hct MCV MCH MCHC RDW Plt Count PT INR APTT Fibrinogen D-Dimer POC ABG pH POC ABG pCO2 POC ABG pO2 POC ABG HCO3 POC ABG Total CO2 POC ABG O2 Sat POC ABG Base Excess FiO2 Sodium 142 Potassium 3.9 Chloride 105.1 Carbon Dioxide 24 Anion Gap 17 BUN 43 H Creatinine 3.6 H Estimated GFR 17 BUN/Creatinine Ratio 12 Glucose 209 H POC Glucose Lactic Acid Calcium 7.6 L D C-Reactive Protein 29.00 H Hepatitis A IgM Ab Hep Bs Antigen Hep B Core IgM Ab Hepatitis C Antibody Blood Type Antibody Screen Crossmatch
--- NOTE | 2017-08-14 15:02 | Progress Note ---
Assessment and Plan - Patient Problems (1) Acute renal failure due to tubular necrosis Current Visit: Yes Status: Acute Plan to address problem: ATN due to acute hemorrhagic shock, pt remains oliguric Cont levophed to keep MAP >65mmhg, currently on 3mcg/min HD again today for volume control, correction of metabolic acidosis and solute clearance. will assess need for renal replacement therapy on a daily basis Cont supportive care for WILLIAM/ATN, avoid nephrotoxins, NSAIDs, IV contrast if possible. (2) Hemorrhagic shock Current Visit: Yes Status: Acute Plan to address problem: pt s/p multiple PRBCs/FFPs, cont vasopressor support with vasopressin/levophed, titrate to keep MAP >65mmHg (3) Hyperkalemia Current Visit: Yes Status: Acute Plan to address problem: improved with HD (4) Metabolic acidosis Current Visit: Yes Status: Acute Plan to address problem: due lactic acidosis/WILLIAM, improved with HD (5) Atherosclerosis of [place] arteries of extremity with intermittent claudication Current Visit: No Status: Acute Plan to address problem: management as per vascular surgery (6) Hypocalcemia Current Visit: Yes Status: Acute Plan to address problem: improved, cont HD with 3Ca bath. Subjective Date of service: 08/14/17 Principal diagnosis: Acute Hypoxemic Respiratory Failure; Hemorrhagic Shock; WILLIAM on Dilaysis;PVD Interval history: pt remains on vent, on levophed 3mcg/min, tolerating HD/UF well without complications. Objective - Vital Signs Vital signs: Vital Signs - 12hr 08/14/17 08/14/17 08/14/17 03:01 03:30 04:00 Temperature 98.8 F Pulse Rate 93 H Pulse Rate [ From Monitor] Respiratory 30 H Rate Blood Pressure 129/55 O2 Sat by Pulse 93 90 Oximetry O2 Sat by Pulse Oximetry [ Anterior Bilateral Throughout] 08/14/17 08/14/17 08/14/17 04:01 04:26 05:01 Temperature Pulse Rate 90 92 H 94 H Pulse Rate [ From Monitor] Respiratory 30 H 30 H Rate Blood Pressure 132/60 124/48 171/127 O2 Sat by Pulse 95 94 96 Oximetry O2 Sat by Pulse Oximetry [ Anterior Bilateral Throughout] 08/14/17 08/14/17 08/14/17 05:50 06:01 07:01 Temperature Pulse Rate 94 H 97 H Pulse Rate [ From Monitor] Respiratory 30 H 30 H Rate Blood Pressure 136/58 122/56 O2 Sat by Pulse 90 96 95 Oximetry O2 Sat by Pulse Oximetry [ Anterior Bilateral Throughout] 08/14/17 08/14/17 08/14/17 08:00 08:01 09:00 Temperature 100.6 F H Pulse Rate 94 H 100 H 110 H Pulse Rate [ 100 H From Monitor] Respiratory 30 H 30 H 30 H Rate Blood Pressure 107/56 117/66 110/60 O2 Sat by Pulse 94 94 92 Oximetry O2 Sat by Pulse Oximetry [ Anterior Bilateral Throughout] 08/14/17 08/14/17 08/14/17 10:00 10:01 11:01 Temperature Pulse Rate 103 H 110 H Pulse Rate [ 103 H From Monitor] Respiratory 18 18 19 Rate Blood Pressure 122/57 153/67 O2 Sat by Pulse 96 96 96 Oximetry O2 Sat by Pulse Oximetry [ Anterior Bilateral Throughout] 08/14/17 08/14/17 08/14/17 12:00 12:01 12:15 Temperature 98.6 F 98.6 F Pulse Rate 116 H 114 H 114 H Pulse Rate [ 114 H From Monitor] Respiratory 11 L 11 L 21 Rate Blood Pressure 153/76 163/55 139/52 O2 Sat by Pulse 95 94 Oximetry O2 Sat by Pulse 95 Oximetry [ Anterior Bilateral Throughout] 08/14/17 08/14/17 08/14/17 12:30 12:45 13:00 Temperature Pulse Rate 114 H 114 H 116 H Pulse Rate [ From Monitor] Respiratory Rate Blood Pressure 139/52 136/52 140/53 O2 Sat by Pulse Oximetry O2 Sat by Pulse Oximetry [ Anterior Bilateral Throughout] 08/14/17 08/14/17 08/14/17 13:01 13:15 13:31 Temperature Pulse Rate 117 H 116 H 117 H Pulse Rate [ From Monitor] Respiratory 18 Rate Blood Pressure 151/65 133/51 137/52 O2 Sat by Pulse 94 Oximetry O2 Sat by Pulse Oximetry [ Anterior Bilateral Throughout] 08/14/17 08/14/17 08/14/17 13:45 14:03 14:15 Temperature Pulse Rate 115 H 116 H 113 H Pulse Rate [ From Monitor] Respiratory Rate Blood Pressure 138/50 131/53 131/49 O2 Sat by Pulse Oximetry O2 Sat by Pulse Oximetry [ Anterior Bilateral Throughout] 08/14/17 08/14/17 14:30 14:45 Temperature Pulse Rate 116 H 114 H Pulse Rate [ From Monitor] Respiratory Rate Blood Pressure 132/50 128/49 O2 Sat by Pulse Oximetry O2 Sat by Pulse Oximetry [ Anterior Bilateral Throughout] - General Appearance General appearance: well-developed, appears stated age, intubated EENT: ATNC, PERRL, mucous membranes moist Neck: no JVD Respiratory: Present: Decreased Breath Sounds Cardiology: regular, S1S2 Gastrointestinal: normoactive bowel sounds, obese Integumentary: no rash, other (2+ edema b/l LE ) Neurologic: no focal deficit, alert and oriented x3, strength 5/5, CN 3-12 intact Psychiatric: mood/affect appropriate, cooperative - Lab 08/14/17 05:00 08/14/17 11:28 Most recent lab results Calcium 7.6 mg/dL (8.4-10.2) L D 08/14/17 11:28
[2017-08-14] MEDS: HEPARIN IV PRN (15:48)
--- NOTE | 2017-08-14 16:29 | Event Note ---
Date: 08/14/17 Planned recheck - Pt is much more calm. Airway pressures are back to baseline. Abd is much softer and less distended. Pt starting to make some urine. No need for abdominal decompression at this time. Will continue to follow. Rec: 1) Continue to monitor abdomen 2) start trickle feeds at 10cc/hr - do not advance yet
--- NOTE | 2017-08-14 23:41 | Progress Note ---
Assessment and Plan Assessment and plan: Patient is 66 year old male with past medical history of hypertension, Type 2 DM , hyperlipidemia, CAD, PAD, who underwent elective vascular procedure for R [employer]LECT[employer]OL[employer] INVE[employer]IGATOR , and is postop day 1 status post complex femoral endarterectomy and iliac artery stenting. Patient become hypotensive multiple fluid resuscitation and blood products. Also began to exhibit some altered mental status for which were consulted. On arrival the patient appears to be in moderate respiratory distress which saturation of 83 on 50% Ventimask. He is unable to provide much information. He does inform me that he drinks alcohol but not quantified. He denied any chest pain, nausea vomiting or diarrhea. He is currently on vasopressin. Acute Hypoxic Respiratory failure on mechanical Vasogenic Shock, Presumed Bleed WILLIAM Secondary to vasomotor nephropathy Severe Metabolic Acidosis ACUTE BLOOD LOSS ANEMIA WITH REFRACTORY EVAL FOR BLEED Leukocytosis PLAN: STAT ABG, CHEST XRAY GIVE 2 liters FLUIDS Discussed with Chute Loader Insert [place] for accurate I/O GIVE 2 AMPS OF BICARB Discussed with helper driver and vascaular surgeon Discontinue Enoxaparin Dvt and GI prophy pateint will b e evaluated prior to ED,. The high probability of a clinically significant, sudden or life threatening deterioration of the [35] system(s) required my full and direct attention, intervention and personal management. The aggregate critical care time was [80 MINS OF A LEADERSHIP YEA] minutes. This time is in addition to time spent performing reported procedures but includes the following: [] Data Review and interpretation [] Patient assessment and monitoring of vital signs [] Documentation [] Medication orders and management History Interval history: patient seen and examined, remains of full ventilatory support. opens eyes verabile stimuli. Hospitalist Physical - Physical exam Narrative exam: VITAL SIGNS: Reviewed. GENERAL: The patient appeared ill, moderate obese comfortable vital signs as documented. HEAD: No signs of head trauma. EYES: Pupils are equal. Extraocular motions intact. EARS: Hearing grossly intact. MOUTH: Oropharynx is normal. NECK: No adenopathy, no JVD. CHEST: Chest with clear breath sounds bilaterally. No wheezes, rales, or rhonchi. CARDIAC: Regular rate and rhythm. S1 and S2, without murmurs, gallops, or rubs. VASCULAR: No Edema. Peripheral pulses normal and equal in all extremities. ABDOMEN: Soft, without detectable tenderness. Distended and tympanic No rebound or guarding, and no masses palpated. Bowel Sounds normal. MUSCULOSKELETAL: Good range of motion of all major joints. Extremities without clubbing, cyanosis or edema. NEUROLOGIC EXAM: Encephalopathic No focal sensory or strength deficits. Speech normal. Follows commands. PSYCHIATRIC: Mood normal. SKIN: Ecchymosis of the right femoral area. - Constitutional Vitals: Temp Pulse Resp BP Pulse Ox 99.4 F 113 H 17 161/74 93 08/14/17 19:39 08/14/17 22:15 08/14/17 22:15 08/14/17 22:00 08/14/17 22:15 General appearance: Present: mild distress Results - Labs CBC & Chem 7: 08/14/17 05:00 08/14/17 11:28 Labs: Laboratory Last Values WBC 14.2 K/mm3 (4.5-11.0) H 08/14/17 05:00 RBC 2.66 M/mm3 (3.65-5.03) L 08/14/17 05:00 Hgb 7.9 gm/dl (11.8-15.2) L 08/14/17 05:00 POC Hgb 8.5 (12-17) L 08/11/17 14:39 Hct 23.2 % (35.5-45.6) L 08/14/17 05:00 POC Hct 25 (38-51) L 08/11/17 14:39 MCV 87 fl (84-94) 08/14/17 05:00 MCH 30 pg (28-32) 08/14/17 05:00 MCHC 34 % (32-34) 08/14/17 05:00 RDW 16.0 % (13.2-15.2) H 08/14/17 05:00 Plt Count 75 K/mm3 (140-440) L 08/14/17 05:00 Lymph % (Auto) 10.3 % (13.4-35.0) L 08/13/17 05:46 Long % (Auto) 5.3 % (0.0-7.3) 08/13/17 05:46 Eos % (Auto) 0.2 % (0.0-4.3) 08/13/17 05:46 Baso % (Auto) 0.1 % (0.0-1.8) 08/13/17 05:46 Lymph # 1.5 K/mm3 (1.2-5.4) 08/13/17 05:46 Long # 0.8 K/mm3 (0.0-0.8) 08/13/17 05:46 Eos # 0.0 K/mm3 (0.0-0.4) 08/13/17 05:46 Baso # 0.0 K/mm3 (0.0-0.1) 08/13/17 05:46 Seg Neutrophils % 84.1 % (40.0-70.0) H 08/13/17 05:46 Seg Neutrophils # 12.3 K/mm3 (1.8-7.7) H 08/13/17 05:46 PT 15.7 Sec. (12.2-14.9) H 08/14/17 05:00 INR 1.18 (0.87-1.13) H 08/14/17 05:00 APTT 31.7 Sec. (24.2-36.6) 08/14/17 05:00 Activated Clotting Time 164 (74-137) H 08/11/17 14:46 Fibrinogen 424 mg/dl (211-480) 08/14/17 05:00 D-Dimer 950.64 ng/mlDDU (0-234) H 08/14/17 05:00 Heparin Anti-Xa Level < 0.10 U.I./ml (0.3-0.7) L 08/12/17 21:50 POC ABG pH 7.368 (7.35-7.45) 08/14/17 19:54 POC ABG pCO2 46.5 (35-45) H 08/14/17 19:54 POC ABG pO2 64 (80-105) L 08/14/17 19:54 POC ABG HCO3 26.8 08/14/17 19:54 POC ABG Total CO2 28 08/14/17 19:54 POC ABG O2 Sat 91 08/14/17 19:54 POC ABG Base Excess 1 08/14/17 19:54 POC Sodium 142 mmol/L (138-146) 08/11/17 14:39 POC Potassium 4.2 (3.5-4.9) 08/11/17 14:39 POC Chloride 109 (98-109) 08/11/17 14:39 FiO2 65 % 08/14/17 19:54 Sodium 142 mmol/L (137-145) 08/14/17 11:28 Potassium 3.9 mmol/L (3.6-5.0) 08/14/17 11:28 Chloride 105.1 mmol/L (98-107) 08/14/17 11:28 Carbon Dioxide 24 mmol/L (22-30) 08/14/17 11:28 Anion Gap 17 mmol/L 08/14/17 11:28 POC BUN 13 mg/dl (8-26) 08/11/17 14:39 BUN 43 mg/dL (9-20) H 08/14/17 11:28 Creatinine 3.6 mg/dL (0.8-1.5) H 08/14/17 11:28 Estimated GFR 17 ml/min 08/14/17 11:28 BUN/Creatinine Ratio 12 % 08/14/17 11:28 Glucose 209 mg/dL (75-100) H 08/14/17 11:28 POC Glucose 170 (70-105) H 08/14/17 23:23 Lactic Acid 1.70 mmol/L (0.7-2.0) 08/14/17 05:00 Calcium 7.6 mg/dL (8.4-10.2) L D 08/14/17 11:28 Total Bilirubin 0.20 mg/dL (0.1-1.2) 08/13/17 05:46 AST 1304 units/L (5-40) H 08/13/17 05:46 ALT 533 units/L (7-56) H 08/13/17 05:46 Alkaline Phosphatase 38 units/L (35-129) 08/13/17 05:46 C-Reactive Protein 29.00 mg/dL (0.00-1.30) H 08/14/17 11:28 Total Protein 4.4 g/dL (6.3-8.2) L 08/13/17 05:46 Albumin 2.8 g/dL (3.9-5) L 08/13/17 05:46 Albumin/Globulin Ratio 1.8 % 08/13/17 05:46 Urine Color Red (Yellow) 08/12/17 18:30 Urine Turbidity Hazy (Clear) 08/12/17 18:30 Urine pH 5.0 (5.0-7.0) 08/12/17 18:30 Ur Specific [place] 1.051 (1.003-1.030) H 08/12/17 18:30 Urine Protein 100 mg/dl mg/dL (Negative) 08/12/17 18:30 Urine Glucose (UA) 50 mg/dL (Negative) 08/12/17 18:30 Urine Ketones Neg mg/dL (Negative) 08/12/17 18:30 Urine Blood Lg (Negative) 08/12/17 18:30 Urine Nitrite Neg (Negative) 08/12/17 18:30 Urine Bilirubin Neg (Negative) 08/12/17 18:30 Urine Urobilinogen < 2.0 mg/dL (<2.0) 08/12/17 18:30 Ur Leukocyte Esterase Tr (Negative) 08/12/17 18:30 Urine WBC (Auto) > 182.0 /HPF (0.0-6.0) H 08/12/17 18:30 Urine RBC (Auto) > 182.0 /HPF (0.0-6.0) 08/12/17 18:30 Urine Mucus 1+ /HPF 08/12/17 18:30 Hepatitis A IgM Ab Non-reactive (NonReactive) 08/13/17 15:35 Hep Bs Antigen Non-reactive (Negative) 08/13/17 15:35 Hep B Core IgM Ab Non-reactive (NonReactive) 08/13/17 15:35 Hepatitis C Antibody Non-reactive (NonReactive) 08/13/17 15:35 Blood Type O POSITIVE 08/11/17 06:50 Antibody Screen Negative 08/11/17 06:50 Crossmatch See Detail 08/11/17 06:50
[2017-08-15] MEDS: HumaLOG SUB-Q SCH ×4 (05:26→23:52)
[2017-08-15 05:31] LABS: Hematocrit 22.1 % (35.5-45.6); Hemoglobin 7.4 gm/dl (11.8-15.2); Mean Corpuscular HGB Conc 34 % (32-34); Mean Corpuscular Hemoglobin 30 pg (28-32); Mean Corpuscular Volume 89 fl (84-94); Red Blood Count 2.49 M/mm3 (3.65-5.03); Red Cell Distribution Width 16.5 % (13.2-15.2)
[2017-08-15 05:51] LABS: Platelet Count 64 K/mm3 (140-440)
[2017-08-15] MEDS: fentaNYL DRIP Premix 2,000 MCG/100 ML BAG IV SCH ×2 (06:09→16:00)
--- NOTE | 2017-08-15 06:33 | XRay Report ---
FINAL REPORT EXAM: XR CHEST 1V AP HISTORY: Follow-up respiratory failure. TECHNIQUE: A single frontal portable radiograph of the chest was obtained. Comparison is made with prior study 08/13/2017. FINDINGS: The patient is status post median sternotomy. The heart is enlarged, and the aorta is tortuous and calcified, stable. An endotracheal tube remains in place with tip approximately 6 cm above the smita. A nasogastric tube traverses the thorax into the stomach, though its tip is not included on this film. Two right jugular central venous catheters are seen terminating overlying the SVC. Again demonstrated is mild pulmonary vascular congestion, with bilateral perihilar and basilar opacities. This may be on the basis of congestive heart failure/pulmonary edema, though pneumonia is not excluded. There are small bilateral pleural effusions, stable. There is no pneumothorax. Mild spondylotic changes are seen in the spine. The overall appearance of the chest is stable compared to prior exam. IMPRESSION: Overall, no significant interval change compared to 08/13/2017.
--- NOTE | 2017-08-15 09:01 | Progress Note ---
Assessment and Plan s/p [employer] endarterectomy, B/L iliac artery stenting with subsequent revision. 1. Hemodynamics - patient is improving. Weaned off pressors, and maintaining MAPS, actually HYPERtensive now. 2. Resp - still vented, weaning managed by pulmonary 3. Neuro - only on Fentanyl for sedation. Pt moves all extremities spontaneously, but not on command. Will open eyes to name. Seems to be improving overall. 4. Renal - Cr continues to worsen. The combination of several generalized body edema and hyPERtension may necessitate dialysis today. This is in light of his Hb worsening again after getting 2U pRBC. I would be hesitant to transfuse more at this moment. 5. Platelet count - still decreasing. No clinical evidence of bleeding, heme/ onc is following, awaiting HIT panel. Overall - critically ill, but making improvements in neuro status and hemodynamics. Subjective Date of service: 08/15/17 Principal diagnosis: Acute Hypoxemic Respiratory Failure; Hemorrhagic Shock; WILLIAM on Dilaysis;PVD Interval history: Improving in certain respects, but remains critically ill. See A/P. Objective - Constitutional Vitals: Vital Signs - 12hr 08/14/17 08/14/17 08/14/17 21:00 22:00 22:15 Temperature Pulse Rate 122 H 121 H Pulse Rate [ 113 H From Monitor] Respiratory 17 16 17 Rate Respiratory 17 Rate [Back] Respiratory 17 Rate [Bilateral Leg] Blood Pressure 136/59 161/74 O2 Sat by Pulse 94 91 93 Oximetry 08/14/17 08/14/17 08/14/17 22:16 23:00 23:20 Temperature Pulse Rate 112 H 112 H 112 H Pulse Rate [ From Monitor] Respiratory 12 16 Rate Respiratory Rate [Back] Respiratory Rate [Bilateral Leg] Blood Pressure 161/74 127/61 131/53 O2 Sat by Pulse 91 93 94 Oximetry 08/15/17 08/15/17 08/15/17 00:00 00:15 01:00 Temperature 98.9 F Pulse Rate 110 H 108 H Pulse Rate [ 113 H From Monitor] Respiratory 17 17 17 Rate Respiratory Rate [Back] Respiratory Rate [Bilateral Leg] Blood Pressure 118/63 123/61 114/51 O2 Sat by Pulse 95 93 95 Oximetry 08/15/17 08/15/17 08/15/17 02:00 02:20 03:00 Temperature Pulse Rate 105 H 109 H Pulse Rate [ 113 H From Monitor] Respiratory 16 17 16 Rate Respiratory Rate [Back] Respiratory Rate [Bilateral Leg] Blood Pressure 123/61 123/61 143/62 O2 Sat by Pulse 96 93 96 Oximetry 08/15/17 08/15/17 08/15/17 03:18 04:00 04:20 Temperature 98.9 F Pulse Rate 111 H 108 H Pulse Rate [ From Monitor] Respiratory 16 Rate Respiratory Rate [Back] Respiratory Rate [Bilateral Leg] Blood Pressure 144/54 126/59 O2 Sat by Pulse 95 94 Oximetry 08/15/17 08/15/17 08/15/17 05:00 05:30 06:00 Temperature Pulse Rate 105 H 112 H Pulse Rate [ 113 H From Monitor] Respiratory 15 17 12 Rate Respiratory Rate [Back] Respiratory Rate [Bilateral Leg] Blood Pressure 127/67 128/61 O2 Sat by Pulse 96 93 94 Oximetry 08/15/17 08/15/17 08:00 08:20 Temperature 99.1 F Pulse Rate 120 H Pulse Rate [ From Monitor] Respiratory Rate Respiratory Rate [Back] Respiratory Rate [Bilateral Leg] Blood Pressure 168/60 O2 Sat by Pulse 94 Oximetry General appearance: Present: other (Intubated, mildly sedated) - Neck Neck: supple, normal ROM Extremities: normal color Extremity abnormal: other (mild BLE edema. feet are warm. ) - Gastrointestinal General gastrointestinal: Present: other (distended, somewhat soft, mild abdominal wall edema) - Neurologic Neurologic: moves all extremities (spontaneously, not on command) - Labs CBC & Chem 7: 08/15/17 04:40 08/14/17 11:28 Labs: Abnormal lab results 08/14/17 08/14/17 08/14/17 Range/Units 10:26 11:28 11:28 WBC (4.5-11.0) K/mm3 RBC (3.65-5.03) M/mm3 Hgb (11.8-15.2) gm/dl Hct (35.5-45.6) % RDW (13.2-15.2) % Plt Count (140-440) K/mm3 POC ABG pCO2 (35-45) POC ABG pO2 78 L (80-105) BUN 43 H (9-20) mg/dL Creatinine 3.6 H (0.8-1.5) mg/dL Glucose 209 H (75-100) mg/dL POC Glucose (70-105) Calcium 7.6 L D (8.4-10.2) mg/dL C-Reactive Protein 29.00 H (0.00-1.30) mg/dL 08/14/17 08/14/17 08/14/17 Range/Units 12:06 17:57 19:54 WBC (4.5-11.0) K/mm3 RBC (3.65-5.03) M/mm3 Hgb (11.8-15.2) gm/dl Hct (35.5-45.6) % RDW (13.2-15.2) % Plt Count (140-440) K/mm3 POC ABG pCO2 46.5 H (35-45) POC ABG pO2 64 L (80-105) BUN (9-20) mg/dL Creatinine (0.8-1.5) mg/dL Glucose (75-100) mg/dL POC Glucose 219 H 178 H (70-105) Calcium (8.4-10.2) mg/dL C-Reactive Protein (0.00-1.30) mg/dL 08/14/17 08/15/17 08/15/17 Range/Units 23:23 03:44 04:40 WBC 12.6 H (4.5-11.0) K/mm3 RBC 2.49 L (3.65-5.03) M/mm3 Hgb 7.4 L (11.8-15.2) gm/dl Hct 22.1 L (35.5-45.6) % RDW 16.5 H (13.2-15.2) % Plt Count 64 L (140-440) K/mm3 POC ABG pCO2 48.1 H (35-45) POC ABG pO2 68 L (80-105) BUN (9-20) mg/dL Creatinine (0.8-1.5) mg/dL Glucose (75-100) mg/dL POC Glucose 170 H (70-105) Calcium (8.4-10.2) mg/dL C-Reactive Protein (0.00-1.30) mg/dL 08/15/17 Range/Units 05:19 WBC (4.5-11.0) K/mm3 RBC (3.65-5.03) M/mm3 Hgb (11.8-15.2) gm/dl Hct (35.5-45.6) % RDW (13.2-15.2) % Plt Count (140-440) K/mm3 POC ABG pCO2 (35-45) POC ABG pO2 (80-105) BUN (9-20) mg/dL Creatinine (0.8-1.5) mg/dL Glucose (75-100) mg/dL POC Glucose 154 H (70-105) Calcium (8.4-10.2) mg/dL C-Reactive Protein (0.00-1.30) mg/dL
[2017-08-15] MEDS: THERAGRAN Tab PO SCH ×2 (09:34→09:37)
[2017-08-15] MEDS: VITAMIN B-1 PO SCH (09:34)
[2017-08-15] MEDS: DOXYCYCLINE HYCLATE 100 MG in NACL 0.9% 250ML 250 ML IV SCH ×2 (09:34→21:57)
[2017-08-15] MEDS: HALFPRIN EC PO SCH ×2 (09:34→09:37)
[2017-08-15] MEDS: PAXIL PO SCH ×2 (09:34→09:37)
[2017-08-15] MEDS: PEPCID IV SCH (09:34)
[2017-08-15] MEDS: FOLVITE PO SCH ×2 (09:34→09:37)
[2017-08-15] MEDS: [UNRECOGNIZED DRUG - OTHER] OS SCH ×3 (09:35→21:58)
--- NOTE | 2017-08-15 10:15 | Progress Note ---
Assessment and Plan Acute Hypoxic Respiratory failure Vasogenic Shock, Presumed Bleed WILLIAM Secondary to vasomotor nephropathy Severe Metabolic Acidosis Acute blood loss anemia PVD s/p right femoral end-arterectomy Acute encephalopathy s/p Massive blood transfusion Leukocytosis Tobacco abuse disorder/Nicotine dependence -Continue VAP bundle -VTE prophylaxis (SCDs on for now) -Daily SBTs and SATs as tolerated -Agitation and analgesia management -Stress ulcer prophylaxis -Continue with full ventilatory support, PEEP increased -Enteric nutrition -Wean vasopressor support for MAP>65 -Antibiotics per ID -UF/HD per Renal service -Continue with barrientos catheter for accurate Is and Os -CXR and ABG in the morning and prn -Monitor CBC and trend Hgb and WCC and son updated at the bedside Remains full code Prognosis is guarded with high risk of decompensation from a hemodynamic, renal , respiratory standpoint and even . Subjective Date of service: 08/15/17 Principal diagnosis: Acute Hypoxemic Respiratory Failure; Hemorrhagic Shock; WILLIAM on Dilaysis;PVD Interval history: Seen and examined at bedside; 24 hour events reviewed; Vitals, labs, medications, chart reviewed. Remains on MVS; AMS is persistent, still agitated during SAT's and non purposeful No fevers overnight. Discussed with RT and RN Discussed during interdisciplinary rounds Objective - Exam Narrative Exam: VITAL SIGNS: Reviewed. GENERAL: The patient appeared ill, moderate obese comfortable vital signs as documented. ET to ventilator, some tachypnea, no dys-synchrony HEAD: No signs of head trauma. EYES: Pupils are equal. Extraocular motions intact. MOUTH: Oropharynx is normal. NECK: No adenopathy, no JVD. CHEST: Chest with decreased AE bilaterally with rhonchi CARDIAC: Regular rate and rhythm. S1 and S2, without murmurs, gallops, or rubs. VASCULAR: Edema bilaterally lower extremity, Peripheral pulses normal and equal in all extremities. ABDOMEN: Soft, without detectable tenderness. Distended and tympanic . No rebound or guarding, and no masses palpated. Bowel Sounds normal. MUSCULOSKELETAL: Good range of motion of all major joints. Bilateral extremity edema. NEUROLOGIC EXAM: Non focal SKIN: Ecchymosis of the right femoral area. Vital Signs - 12hr 08/14/17 08/14/17 08/14/17 22:16 23:00 23:20 Temperature Pulse Rate 112 H 112 H 112 H Pulse Rate [ From Monitor] Respiratory 12 16 Rate Blood Pressure 161/74 127/61 131/53 O2 Sat by Pulse 91 93 94 Oximetry 08/15/17 08/15/17 08/15/17 00:00 00:15 01:00 Temperature 98.9 F Pulse Rate 110 H 108 H Pulse Rate [ 113 H From Monitor] Respiratory 17 17 17 Rate Blood Pressure 118/63 123/61 114/51 O2 Sat by Pulse 95 93 95 Oximetry 08/15/17 08/15/17 08/15/17 02:00 02:20 03:00 Temperature Pulse Rate 105 H 109 H Pulse Rate [ 113 H From Monitor] Respiratory 16 17 16 Rate Blood Pressure 123/61 123/61 143/62 O2 Sat by Pulse 96 93 96 Oximetry 08/15/17 08/15/17 08/15/17 03:18 04:00 04:20 Temperature 98.9 F Pulse Rate 111 H 108 H Pulse Rate [ From Monitor] Respiratory 16 Rate Blood Pressure 144/54 126/59 O2 Sat by Pulse 95 94 Oximetry 08/15/17 08/15/17 08/15/17 05:00 05:30 06:00 Temperature Pulse Rate 105 H 112 H Pulse Rate [ 113 H From Monitor] Respiratory 15 17 12 Rate Blood Pressure 127/67 128/61 O2 Sat by Pulse 96 93 94 Oximetry 08/15/17 08/15/17 08:00 08:20 Temperature 99.1 F Pulse Rate 120 H Pulse Rate [ From Monitor] Respiratory Rate Blood Pressure 168/60 O2 Sat by Pulse 94 Oximetry CBC and BMP: 08/20/17 04:45 08/20/17 04:45 ABG, PT/INR, D-dimer: ABG POC ABG pH 7.352 (7.35-7.45) 08/15/17 03:44 POC ABG pCO2 48.1 (35-45) H 08/15/17 03:44 POC ABG pO2 68 (80-105) L 08/15/17 03:44 POC ABG HCO3 26.6 08/15/17 03:44 POC ABG Total CO2 28 08/15/17 03:44 POC ABG O2 Sat 92 08/15/17 03:44 PT/INR, D-dimer PT 15.7 Sec. (12.2-14.9) H 08/14/17 05:00 INR 1.18 (0.87-1.13) H 08/14/17 05:00 D-Dimer 950.64 ng/mlDDU (0-234) H 08/14/17 05:00 Abnormal lab findings: Abnormal Labs 08/10/17 08/10/17 08/10/17 10:05 10:05 10:05 WBC RBC Hgb POC Hgb Hct POC Hct MCV 97 H MCH 33 H RDW Plt Count Lymph % (Auto) Lymph # Seg Neutrophils % 72.9 H Seg Neutrophils # PT 11.6 L INR 0.81 L APTT Activated Clotting Time D-Dimer Heparin Anti-Xa Level POC ABG pH POC ABG pCO2 POC ABG pO2 Potassium Chloride Carbon Dioxide BUN Creatinine 0.7 L Glucose 196 H POC Glucose Lactic Acid Calcium AST ALT C-Reactive Protein Total Protein Albumin Ur Specific [place] Urine WBC (Auto) Crossmatch 08/11/17 08/11/17 08/11/17 06:50 07:03 09:50 WBC RBC Hgb POC Hgb Hct POC Hct MCV MCH RDW Plt Count Lymph % (Auto) Lymph # Seg Neutrophils % Seg Neutrophils # PT INR APTT Activated Clotting Time D-Dimer Heparin Anti-Xa Level POC ABG pH 7.270 L POC ABG pCO2 49.1 H POC ABG pO2 117 H Potassium Chloride Carbon Dioxide BUN Creatinine Glucose POC Glucose 160 H Lactic Acid Calcium AST ALT C-Reactive Protein Total Protein Albumin Ur Specific [place] Urine WBC (Auto) Crossmatch See Detail 08/11/17 08/11/17 08/11/17 10:52 11:12 12:16 WBC RBC Hgb POC Hgb Hct POC Hct MCV MCH RDW Plt Count Lymph % (Auto) Lymph # Seg Neutrophils % Seg Neutrophils # PT INR APTT Activated Clotting Time 191 H 153 H D-Dimer Heparin Anti-Xa Level POC ABG pH POC ABG pCO2 POC ABG pO2 Potassium Chloride Carbon Dioxide BUN Creatinine Glucose POC Glucose 176 H Lactic Acid Calcium AST ALT C-Reactive Protein Total Protein Albumin Ur Specific [place] Urine WBC (Auto) Crossmatch 08/11/17 08/11/17 08/11/17 12:27 13:07 14:39 WBC RBC Hgb POC Hgb 9.9 L 8.5 L Hct POC Hct 29 L 25 L MCV MCH RDW Plt Count Lymph % (Auto) Lymph # Seg Neutrophils % Seg Neutrophils # PT INR APTT Activated Clotting Time 186 H D-Dimer Heparin Anti-Xa Level POC ABG pH POC ABG pCO2 POC ABG pO2 Potassium Chloride Carbon Dioxide BUN Creatinine Glucose POC Glucose 183 H 197 H Lactic Acid Calcium AST ALT C-Reactive Protein Total Protein Albumin Ur Specific [place] Urine WBC (Auto) Crossmatch 08/11/17 08/11/17 08/11/17 14:46 16:18 17:57 WBC 12.7 H RBC 3.00 L Hgb 9.5 L D POC Hgb Hct 28.3 L D POC Hct MCV MCH RDW 16.3 H Plt Count 105 L Lymph % (Auto) 6.7 L Lymph # 0.8 L Seg Neutrophils % 86.3 H Seg Neutrophils # 10.9 H PT INR APTT Activated Clotting Time 164 H D-Dimer Heparin Anti-Xa Level POC ABG pH POC ABG pCO2 POC ABG pO2 Potassium Chloride Carbon Dioxide BUN Creatinine Glucose POC Glucose 192 H Lactic Acid Calcium AST ALT C-Reactive Protein Total Protein Albumin Ur Specific [place] Urine WBC (Auto) Crossmatch 08/11/17 08/11/17 08/11/17 17:57 20:00 20:00 WBC RBC Hgb 10.2 L POC Hgb Hct 31.1 L POC Hct MCV MCH RDW Plt Count 117 L Lymph % (Auto) Lymph # Seg Neutrophils % Seg Neutrophils # PT 15.3 H INR 1.15 H APTT 97.7 H* Activated Clotting Time D-Dimer Heparin Anti-Xa Level POC ABG pH POC ABG pCO2 POC ABG pO2 Potassium Chloride 117.4 H Carbon Dioxide 18 L BUN Creatinine 0.7 L Glucose 143 H POC Glucose Lactic Acid Calcium 6.4 L D AST ALT C-Reactive Protein Total Protein Albumin Ur Specific [place] Urine WBC (Auto) Crossmatch 08/12/17 08/12/17 08/12/17 03:30 03:50 03:50 WBC RBC Hgb 9.2 L 9.1 L POC Hgb Hct 27.5 L 27.2 L POC Hct MCV MCH RDW Plt Count Lymph % (Auto) Lymph # Seg Neutrophils % Seg Neutrophils # PT INR APTT Activated Clotting Time D-Dimer Heparin Anti-Xa Level POC ABG pH POC ABG pCO2 POC ABG pO2 Potassium Chloride 113.5 H Carbon Dioxide 13 L BUN Creatinine Glucose 243 H POC Glucose Lactic Acid Calcium 6.3 L AST ALT C-Reactive Protein Total Protein Albumin Ur Specific [place] Urine WBC (Auto) Crossmatch 08/12/17 08/12/17 08/12/17 07:36 08:48 16:16 WBC RBC Hgb POC Hgb Hct POC Hct MCV MCH RDW Plt Count Lymph % (Auto) Lymph # Seg Neutrophils % Seg Neutrophils # PT INR APTT Activated Clotting Time D-Dimer Heparin Anti-Xa Level POC ABG pH 6.952 L 7.159 L POC ABG pCO2 49.1 H 47.8 H POC ABG pO2 76 L 106 H Potassium Chloride Carbon Dioxide BUN Creatinine Glucose POC Glucose 246 H Lactic Acid Calcium AST ALT C-Reactive Protein Total Protein Albumin Ur Specific [place] Urine WBC (Auto) Crossmatch 08/12/17 08/12/17 08/12/17 17:54 18:30 20:15 WBC 17.9 H RBC 3.29 L Hgb 10.0 L POC Hgb Hct 29.3 L POC Hct MCV MCH RDW 15.5 H Plt Count 76 L Lymph % (Auto) Lymph # Seg Neutrophils % Seg Neutrophils # PT INR APTT Activated Clotting Time D-Dimer Heparin Anti-Xa Level POC ABG pH POC ABG pCO2 POC ABG pO2 Potassium Chloride Carbon Dioxide BUN Creatinine Glucose POC Glucose 240 H Lactic Acid Calcium AST ALT C-Reactive Protein Total Protein Albumin Ur Specific [place] 1.051 H Urine WBC (Auto) > 182.0 H Crossmatch 08/12/17 08/12/17 08/13/17 21:50 21:50 03:20 WBC RBC Hgb POC Hgb Hct POC Hct MCV MCH RDW Plt Count Lymph % (Auto) Lymph # Seg Neutrophils % Seg Neutrophils # PT INR APTT Activated Clotting Time D-Dimer Heparin Anti-Xa Level < 0.10 L POC ABG pH POC ABG pCO2 POC ABG pO2 Potassium 5.4 H Chloride 110.8 H Carbon Dioxide 18 L BUN 30 H Creatinine 2.5 H D Glucose 216 H POC Glucose 235 H Lactic Acid Calcium 5.7 L* AST ALT C-Reactive Protein Total Protein Albumin Ur Specific [place] Urine WBC (Auto) Crossmatch 08/13/17 08/13/17 08/13/17 05:46 05:46 06:06 WBC 14.6 H RBC 2.49 L Hgb 7.6 L POC Hgb Hct 22.3 L D POC Hct MCV MCH RDW 15.7 H Plt Count 78 L Lymph % (Auto) 10.3 L Lymph # Seg Neutrophils % 84.1 H Seg Neutrophils # 12.3 H PT INR APTT Activated Clotting Time D-Dimer Heparin Anti-Xa Level POC ABG pH 7.282 L POC ABG pCO2 POC ABG pO2 Potassium Chloride 107.5 H Carbon Dioxide 19 L BUN 35 H Creatinine 2.9 H Glucose 242 H POC Glucose Lactic Acid Calcium 6.3 L AST 1304 H ALT 533 H C-Reactive Protein Total Protein 4.4 L Albumin 2.8 L Ur Specific [place] Urine WBC (Auto) Crossmatch 08/13/17 08/13/17 08/13/17 07:10 07:10 09:00 WBC RBC Hgb POC Hgb Hct POC Hct MCV MCH RDW Plt Count Lymph % (Auto) Lymph # Seg Neutrophils % Seg Neutrophils # PT 17.4 H INR 1.35 H APTT Activated Clotting Time D-Dimer 598.44 H Heparin Anti-Xa Level POC ABG pH POC ABG pCO2 POC ABG pO2 Potassium Chloride 107.2 H Carbon Dioxide 19 L BUN 35 H Creatinine 2.8 H Glucose 240 H POC Glucose Lactic Acid 3.10 H* Calcium 6.2 L AST ALT C-Reactive Protein Total Protein Albumin Ur Specific [place] Urine WBC (Auto) Crossmatch 08/13/17 08/13/17 08/13/17 17:55 18:31 21:19 WBC RBC Hgb POC Hgb Hct POC Hct MCV MCH RDW Plt Count Lymph % (Auto) Lymph # Seg Neutrophils % Seg Neutrophils # PT INR APTT Activated Clotting Time D-Dimer Heparin Anti-Xa Level POC ABG pH 7.451 H POC ABG pCO2 33.0 L POC ABG pO2 53 L Potassium Chloride Carbon Dioxide BUN Creatinine Glucose POC Glucose 247 H Lactic Acid 2.20 H* Calcium AST ALT C-Reactive Protein Total Protein Albumin Ur Specific [place] Urine WBC (Auto) Crossmatch 08/13/17 08/14/17 08/14/17 23:34 00:10 05:00 WBC RBC Hgb POC Hgb Hct POC Hct MCV MCH RDW Plt Count Lymph % (Auto) Lymph # Seg Neutrophils % Seg Neutrophils # PT 15.7 H INR 1.18 H APTT Activated Clotting Time D-Dimer 950.64 H Heparin Anti-Xa Level POC ABG pH POC ABG pCO2 POC ABG pO2 Potassium Chloride Carbon Dioxide BUN Creatinine Glucose POC Glucose 237 H Lactic Acid 2.70 H* Calcium AST ALT C-Reactive Protein Total Protein Albumin Ur Specific [place] Urine WBC (Auto) Crossmatch 08/14/17 08/14/17 08/14/17 05:00 05:11 10:26 WBC 14.2 H RBC 2.66 L Hgb 7.9 L POC Hgb Hct 23.2 L POC Hct MCV MCH RDW 16.0 H Plt Count 75 L Lymph % (Auto) Lymph # Seg Neutrophils % Seg Neutrophils # PT INR APTT Activated Clotting Time D-Dimer Heparin Anti-Xa Level POC ABG pH POC ABG pCO2 POC ABG pO2 78 L Potassium Chloride Carbon Dioxide BUN Creatinine Glucose POC Glucose 227 H Lactic Acid Calcium AST ALT C-Reactive Protein Total Protein Albumin Ur Specific [place] Urine WBC (Auto) Crossmatch 08/14/17 08/14/17 08/14/17 11:28 11:28 12:06 WBC RBC Hgb POC Hgb Hct POC Hct MCV MCH RDW Plt Count Lymph % (Auto) Lymph # Seg Neutrophils % Seg Neutrophils # PT INR APTT Activated Clotting Time D-Dimer Heparin Anti-Xa Level POC ABG pH POC ABG pCO2 POC ABG pO2 Potassium Chloride Carbon Dioxide BUN 43 H Creatinine 3.6 H Glucose 209 H POC Glucose 219 H Lactic Acid Calcium 7.6 L D AST ALT C-Reactive Protein 29.00 H Total Protein Albumin Ur Specific [place] Urine WBC (Auto) Crossmatch 08/14/17 08/14/17 08/14/17 17:57 19:54 23:23 WBC RBC Hgb POC Hgb Hct POC Hct MCV MCH RDW Plt Count Lymph % (Auto) Lymph # Seg Neutrophils % Seg Neutrophils # PT INR APTT Activated Clotting Time D-Dimer Heparin Anti-Xa Level POC ABG pH POC ABG pCO2 46.5 H POC ABG pO2 64 L Potassium Chloride Carbon Dioxide BUN Creatinine Glucose POC Glucose 178 H 170 H Lactic Acid Calcium AST ALT C-Reactive Protein Total Protein Albumin Ur Specific [place] Urine WBC (Auto) Crossmatch 08/15/17 08/15/17 08/15/17 03:44 04:40 05:19 WBC 12.6 H RBC 2.49 L Hgb 7.4 L POC Hgb Hct 22.1 L POC Hct MCV MCH RDW 16.5 H Plt Count 64 L Lymph % (Auto) Lymph # Seg Neutrophils % Seg Neutrophils # PT INR APTT Activated Clotting Time D-Dimer Heparin Anti-Xa Level POC ABG pH POC ABG pCO2 48.1 H POC ABG pO2 68 L Potassium Chloride Carbon Dioxide BUN Creatinine Glucose POC Glucose 154 H Lactic Acid Calcium AST ALT C-Reactive Protein Total Protein Albumin Ur Specific [place] Urine WBC (Auto) Crossmatch Chest x-ray: image reviewed Allied health notes reviewed: RT Critical care time in (mins) excluding proc time.: 35 Critical care attestation.: If time is entered above; I have spent that time in minutes in the direct care of this critically ill patient, excluding procedure time.
[2017-08-15] MEDS ORDERED: PANCREAZE DR 10,500 UNIT FEEDTUBE PRN ×2 (11:13→11:14)
[2017-08-15] MEDS ORDERED: SIMPLE SYRUP FEEDTUBE PRN ×4 (11:13→11:14)
[2017-08-15] MEDS ORDERED: SODIUM BICARBONATE FEEDTUBE PRN ×2 (11:13→11:14)
[2017-08-15] MEDS ORDERED: NACL 0.9% 100 ML IV PRN (13:03)
--- NOTE | 2017-08-15 13:04 | Progress Note ---
Assessment and Plan - Patient Problems (1) Acute renal failure due to tubular necrosis Current Visit: Yes Status: Acute Plan to address problem: ATN due to acute hemorrhagic shock, pt remains oliguric. BP stable off levophed HD again today for volume control, correction of metabolic acidosis and solute clearance. will assess need for renal replacement therapy on a daily basis Cont supportive care for WILLIAM/ATN, avoid nephrotoxins, NSAIDs, IV contrast if possible. (2) Hemorrhagic shock Current Visit: Yes Status: Acute Plan to address problem: pt s/p multiple PRBCs/FFPs, cont vasopressor support with vasopressin/levophed, titrate to keep MAP >65mmHg (3) Hyperkalemia Current Visit: Yes Status: Acute Plan to address problem: improved with HD (4) Metabolic acidosis Current Visit: Yes Status: Acute Plan to address problem: due lactic acidosis/WILLIAM, improved with HD (5) Atherosclerosis of [place] arteries of extremity with intermittent claudication Current Visit: No Status: Acute Plan to address problem: management as per vascular surgery (6) Hypocalcemia Current Visit: Yes Status: Acute Plan to address problem: improved, cont HD with 3Ca bath. Subjective Date of service: 08/15/17 Principal diagnosis: Acute Hypoxemic Respiratory Failure; Hemorrhagic Shock; WILLIAM on Dilaysis;PVD Interval history: pt remains on vent, off levo, still with significant fluid overload. Objective - Vital Signs Vital signs: Vital Signs - 12hr 08/15/17 08/15/17 08/15/17 02:00 02:20 03:00 Temperature Pulse Rate 105 H 109 H Pulse Rate [ 113 H From Monitor] Respiratory 16 17 16 Rate Blood Pressure 123/61 123/61 143/62 O2 Sat by Pulse 96 93 96 Oximetry 08/15/17 08/15/17 08/15/17 03:18 04:00 04:20 Temperature 98.9 F Pulse Rate 111 H 108 H Pulse Rate [ From Monitor] Respiratory 16 Rate Blood Pressure 144/54 126/59 O2 Sat by Pulse 95 94 Oximetry 08/15/17 08/15/17 08/15/17 05:00 05:30 06:00 Temperature Pulse Rate 105 H 112 H Pulse Rate [ 113 H From Monitor] Respiratory 15 17 12 Rate Blood Pressure 127/67 128/61 O2 Sat by Pulse 96 93 94 Oximetry 08/15/17 08/15/17 08/15/17 08:00 08:20 11:59 Temperature 99.1 F Pulse Rate 120 H 119 H Pulse Rate [ From Monitor] Respiratory Rate Blood Pressure 168/60 O2 Sat by Pulse 94 95 Oximetry 08/15/17 12:00 Temperature 101.0 F H Pulse Rate Pulse Rate [ From Monitor] Respiratory Rate Blood Pressure O2 Sat by Pulse Oximetry - General Appearance General appearance: well-developed, well-nourished, appears stated age, intubated EENT: ATNC, PERRL, mucous membranes moist Neck: no JVD Respiratory: Present: Decreased Breath Sounds Cardiology: regular, S1S2 Gastrointestinal: normoactive bowel sounds Integumentary: no rash, other (+ 2 edema b/l LE ) Neurologic: no focal deficit, other (intubated ) - Lab 08/15/17 04:40 08/14/17 11:28 Most recent lab results Calcium 7.6 mg/dL (8.4-10.2) L D 08/14/17 11:28
[2017-08-15] MEDS: HABITROL TD SCH (13:15)
[2017-08-15 13:51] LABS: Calcium 7.8 mg/dL (8.4-10.2)
--- NOTE | 2017-08-15 15:33 | Progress Note ---
Assessment and Plan - Patient Problems (1) Abdominal distention Current Visit: Yes Status: Acute Plan to address problem: Patient in critical condition. Distention is combination of baseline obesity, hemorrhage, and fluid resuscitation. At this point, the abdomen continues to remain soft, and is less distended today. Staff had difficulty getting bladder pressures due to equipment issues. Pulmonary pressures are back to baseline and acceptable. Risk of compartment syndrome seems to be decreasing. As hemodynamics have been stable, would recommend trickle tube feeds (10cc/hr) - do not advance at this time. Patient at high risk for poor outcome. Please call if there are any questions. Time=10min Subjective Date of service: 08/15/17 Narrative: Per staff, no resumption of bowel function yet. Patient is scheduled to start tube Feeds today. Objective Vital Signs - 12hr 08/15/17 08/15/17 08/15/17 04:00 04:20 05:00 Temperature 98.9 F Pulse Rate 108 H 105 H Pulse Rate [ From Monitor] Respiratory 16 15 Rate Blood Pressure 126/59 127/67 O2 Sat by Pulse 94 96 Oximetry 08/15/17 08/15/17 08/15/17 05:30 06:00 08:00 Temperature 99.1 F Pulse Rate 112 H Pulse Rate [ 113 H From Monitor] Respiratory 17 12 Rate Blood Pressure 128/61 O2 Sat by Pulse 93 94 Oximetry 08/15/17 08/15/17 08/15/17 08:20 11:59 12:00 Temperature 101.0 F H Pulse Rate 120 H 119 H Pulse Rate [ From Monitor] Respiratory Rate Blood Pressure 168/60 O2 Sat by Pulse 94 95 Oximetry 08/15/17 15:26 Temperature Pulse Rate 106 H Pulse Rate [ From Monitor] Respiratory Rate Blood Pressure 132/46 O2 Sat by Pulse 96 Oximetry - General physical appearance no distress - Respiratory normal expansion, normal respiratory effort - Abdomen soft, bowel sounds hypoactive, distended (less today.), not guarding, not rigid , other (NGT with yellow drainage) - Labs 08/15/17 04:40 08/15/17 13:22 Diabetes panel 08/15/17 Range/Units 13:22 Sodium 142 (137-145) mmol/L Potassium 4.6 (3.6-5.0) mmol/L Chloride 105.0 (98-107) mmol/L Carbon Dioxide 23 (22-30) mmol/L BUN 45 H (9-20) mg/dL Creatinine 4.1 H (0.8-1.5) mg/dL Glucose 141 H (75-100) mg/dL Calcium 7.8 L (8.4-10.2) mg/dL Calcium panel 08/15/17 Range/Units 13:22 Calcium 7.8 L (8.4-10.2) mg/dL Pituitary panel 08/15/17 Range/Units 13:22 Sodium 142 (137-145) mmol/L Potassium 4.6 (3.6-5.0) mmol/L Chloride 105.0 (98-107) mmol/L Carbon Dioxide 23 (22-30) mmol/L BUN 45 H (9-20) mg/dL Creatinine 4.1 H (0.8-1.5) mg/dL Glucose 141 H (75-100) mg/dL Calcium 7.8 L (8.4-10.2) mg/dL Adrenal panel 08/15/17 Range/Units 13:22 Sodium 142 (137-145) mmol/L Potassium 4.6 (3.6-5.0) mmol/L Chloride 105.0 (98-107) mmol/L Carbon Dioxide 23 (22-30) mmol/L BUN 45 H (9-20) mg/dL Creatinine 4.1 H (0.8-1.5) mg/dL Glucose 141 H (75-100) mg/dL Calcium 7.8 L (8.4-10.2) mg/dL
--- NOTE | 2017-08-15 15:50 | Progress Note ---
Assessment and Plan Assessment and plan: 66-year-old male status post acute hypoxemic respiratory failure and vasogenic shock remains hemodynamically unstable #1 acute hypoxic respiratory failure patient remains intubated we'll wean as tolerated. Seems to be improving able to wean some pressors. #2 vasogenic shock continued blood transfusions as needed continue pressor support seems to be improving we'll wean levo Hughes as tolerated. Continue to transfuse blood as indicated is well current hemoglobin and hematocrit 7 and 22. Would not transfuse at this time. #3 acute kidney injury secondary to ATN, shock oliguria. Patient currently on hemodialysis when necessary. Decision may be made for patient to receive frequent schedule hemodialysis. #For severe metabolic acidosis #6 thrombocytopenia continues to down trend with stable now. Platelet count is stable at 64 may have been secondary to renal failure versus sepsis. #7 PVD status post common femoral endarterectomy followed for vascular surgery Percent 8 acute encephalopathy #9 diabetes fairly well controlled with insulin sliding scale would not change at this particular time. Total Time Spent with Patient (Minutes): 38 History Interval history: Patient remains intubated and nonverbal sedated. Did not open eyes on command today. NG tube in place to feeding scheduled to start today. Hospital course complicated by profound anemia acute respiratory failure and acute renal failure. Hospitalist Physical - Constitutional Vitals: Temp Pulse Resp BP Pulse Ox 101.0 F H 106 H 12 132/46 96 08/15/17 12:00 08/15/17 15:26 08/15/17 06:00 08/15/17 15:26 08/15/17 15:26 General appearance: Present: other (Intubated, mildly sedated) - Neck Neck: Present: supple, normal ROM - Respiratory Respiratory: bilateral: diminished (decreased breath sounds throughout few rhonchi) - Cardiovascular Rhythm: other - Extremities Extremities: No edema Extremity abnormal: pulses diminished, tenderness, other (move all extremities but not at command.) - Abdominal General gastrointestinal: soft, non-tender, distended, hypoactive bowel sounds - Integumentary Integumentary: Present: clear, warm, dry - Neurologic Neurologic: moves all extremities Results - Labs CBC & Chem 7: 08/15/17 04:40 08/15/17 13:22 Labs: Laboratory Last Values WBC 12.6 K/mm3 (4.5-11.0) H 08/15/17 04:40 RBC 2.49 M/mm3 (3.65-5.03) L 08/15/17 04:40 Hgb 7.4 gm/dl (11.8-15.2) L 08/15/17 04:40 POC Hgb 8.5 (12-17) L 08/11/17 14:39 Hct 22.1 % (35.5-45.6) L 08/15/17 04:40 POC Hct 25 (38-51) L 08/11/17 14:39 MCV 89 fl (84-94) 08/15/17 04:40 MCH 30 pg (28-32) 08/15/17 04:40 MCHC 34 % (32-34) 08/15/17 04:40 RDW 16.5 % (13.2-15.2) H 08/15/17 04:40 Plt Count 64 K/mm3 (140-440) L 08/15/17 04:40 Lymph % (Auto) 10.3 % (13.4-35.0) L 08/13/17 05:46 [place] % (Auto) 5.3 % (0.0-7.3) 08/13/17 05:46 Eos % (Auto) 0.2 % (0.0-4.3) 08/13/17 05:46 Baso % (Auto) 0.1 % (0.0-1.8) 08/13/17 05:46 Lymph # 1.5 K/mm3 (1.2-5.4) 08/13/17 05:46 [place] # 0.8 K/mm3 (0.0-0.8) 08/13/17 05:46 Eos # 0.0 K/mm3 (0.0-0.4) 08/13/17 05:46 Baso # 0.0 K/mm3 (0.0-0.1) 08/13/17 05:46 Seg Neutrophils % 84.1 % (40.0-70.0) H 08/13/17 05:46 Seg Neutrophils # 12.3 K/mm3 (1.8-7.7) H 08/13/17 05:46 PT 15.7 Sec. (12.2-14.9) H 08/14/17 05:00 INR 1.18 (0.87-1.13) H 08/14/17 05:00 APTT 31.7 Sec. (24.2-36.6) 08/14/17 05:00 Activated Clotting Time 164 (74-137) H 08/11/17 14:46 Fibrinogen 424 mg/dl (211-480) 08/14/17 05:00 D-Dimer 950.64 ng/mlDDU (0-234) H 08/14/17 05:00 Heparin Anti-Xa Level < 0.10 U.I./ml (0.3-0.7) L 08/12/17 21:50 POC ABG pH 7.352 (7.35-7.45) 08/15/17 03:44 POC ABG pCO2 48.1 (35-45) H 08/15/17 03:44 POC ABG pO2 68 (80-105) L 08/15/17 03:44 POC ABG HCO3 26.6 08/15/17 03:44 POC ABG Total CO2 28 08/15/17 03:44 POC ABG O2 Sat 92 08/15/17 03:44 POC ABG Base Excess 1 08/15/17 03:44 POC Sodium 142 mmol/L (138-146) 08/11/17 14:39 POC Potassium 4.2 (3.5-4.9) 08/11/17 14:39 POC Chloride 109 (98-109) 08/11/17 14:39 FiO2 65 % 08/15/17 03:44 Sodium 142 mmol/L (137-145) 08/15/17 13:22 Potassium 4.6 mmol/L (3.6-5.0) 08/15/17 13:22 Chloride 105.0 mmol/L (98-107) 08/15/17 13:22 Carbon Dioxide 23 mmol/L (22-30) 08/15/17 13:22 Anion Gap 19 mmol/L 08/15/17 13:22 POC BUN 13 mg/dl (8-26) 08/11/17 14:39 BUN 45 mg/dL (9-20) H 08/15/17 13:22 Creatinine 4.1 mg/dL (0.8-1.5) H 08/15/17 13:22 Estimated GFR 15 ml/min 08/15/17 13:22 BUN/Creatinine Ratio 11 % 08/15/17 13:22 Glucose 141 mg/dL (75-100) H 08/15/17 13:22 POC Glucose 147 (70-105) H 08/15/17 12:20 Lactic Acid 1.70 mmol/L (0.7-2.0) 08/14/17 05:00 Calcium 7.8 mg/dL (8.4-10.2) L 08/15/17 13:22 Total Bilirubin 0.20 mg/dL (0.1-1.2) 08/13/17 05:46 AST 1304 units/L (5-40) H 08/13/17 05:46 ALT 533 units/L (7-56) H 08/13/17 05:46 Alkaline Phosphatase 38 units/L (35-129) 08/13/17 05:46 C-Reactive Protein 29.00 mg/dL (0.00-1.30) H 08/14/17 11:28 Total Protein 4.4 g/dL (6.3-8.2) L 08/13/17 05:46 Albumin 2.8 g/dL (3.9-5) L 08/13/17 05:46 Albumin/Globulin Ratio 1.8 % 08/13/17 05:46 Urine Color Red (Yellow) 08/12/17 18:30 Urine Turbidity Hazy (Clear) 08/12/17 18:30 Urine pH 5.0 (5.0-7.0) 08/12/17 18:30 Ur Specific [place] 1.051 (1.003-1.030) H 08/12/17 18:30 Urine Protein 100 mg/dl mg/dL (Negative) 08/12/17 18:30 Urine Glucose (UA) 50 mg/dL (Negative) 08/12/17 18:30 Urine Ketones Neg mg/dL (Negative) 08/12/17 18:30 Urine Blood Lg (Negative) 08/12/17 18:30 Urine Nitrite Neg (Negative) 08/12/17 18:30 Urine Bilirubin Neg (Negative) 08/12/17 18:30 Urine Urobilinogen < 2.0 mg/dL (<2.0) 08/12/17 18:30 Ur Leukocyte Esterase Tr (Negative) 08/12/17 18:30 Urine WBC (Auto) > 182.0 /HPF (0.0-6.0) H 08/12/17 18:30 Urine RBC (Auto) > 182.0 /HPF (0.0-6.0) 08/12/17 18:30 Urine Mucus 1+ /HPF 08/12/17 18:30 Hepatitis A IgM Ab Non-reactive (NonReactive) 08/13/17 15:35 Hep Bs Antigen Non-reactive (Negative) 08/13/17 15:35 Hep B Core IgM Ab Non-reactive (NonReactive) 08/13/17 15:35 Hepatitis C Antibody Non-reactive (NonReactive) 08/13/17 15:35 Blood Type O POSITIVE 08/11/17 06:50 Antibody Screen Negative 08/11/17 06:50 Crossmatch See Detail 08/11/17 06:50 - Imaging and Cardiology Chest x-ray: report reviewed, image reviewed Abdominal x-ray: image reviewed Imaging and Cardiology: Testicular ultrasound.
--- NOTE | 2017-08-15 22:14 | Hem/Onc Progress Note ---
Assessment and Plan - Patient Problems (1) Hemorrhagic shock Current Visit: Yes Status: Acute Plan to address problem: In ICU on vent and dialysis. Nursing will call to obtain HIT results. Subjective Date of service: 08/15/17 Interval history: Met with and son. He does not respond. Objective - Constitutional Vitals: Last Vital Signs Temp 97.1 F L 08/15/17 20:27 Pulse 94 H 08/15/17 21:20 Resp 16 08/15/17 20:15 BP 132/63 08/15/17 21:20 Pulse Ox 96 08/15/17 21:20 - Respiratory Respiratory effort: Positive: normal Respiratory: bilateral: CTA - Cardiovascular Rhythm: regular Heart Sounds: Present: S1 & S2 - Labs Lab Results: Laboratory Results - last 24 hr 08/14/17 08/15/17 08/15/17 23:23 03:44 04:40 WBC 12.6 H RBC 2.49 L Hgb 7.4 L Hct 22.1 L MCV 89 MCH 30 MCHC 34 RDW 16.5 H Plt Count 64 L POC ABG pH 7.352 POC ABG pCO2 48.1 H POC ABG pO2 68 L POC ABG HCO3 26.6 POC ABG Total CO2 28 POC ABG O2 Sat 92 POC ABG Base Excess 1 FiO2 65 Sodium Potassium Chloride Carbon Dioxide Anion Gap BUN Creatinine Estimated GFR BUN/Creatinine Ratio Glucose POC Glucose 170 H Calcium 08/15/17 08/15/17 08/15/17 05:19 12:20 13:22 WBC RBC Hgb Hct MCV MCH MCHC RDW Plt Count POC ABG pH POC ABG pCO2 POC ABG pO2 POC ABG HCO3 POC ABG Total CO2 POC ABG O2 Sat POC ABG Base Excess FiO2 Sodium 142 Potassium 4.6 Chloride 105.0 Carbon Dioxide 23 Anion Gap 19 BUN 45 H Creatinine 4.1 H Estimated GFR 15 BUN/Creatinine Ratio 11 Glucose 141 H POC Glucose 154 H 147 H Calcium 7.8 L 08/15/17 18:05 WBC RBC Hgb Hct MCV MCH MCHC RDW Plt Count POC ABG pH POC ABG pCO2 POC ABG pO2 POC ABG HCO3 POC ABG Total CO2 POC ABG O2 Sat POC ABG Base Excess FiO2 Sodium Potassium Chloride Carbon Dioxide Anion Gap BUN Creatinine Estimated GFR BUN/Creatinine Ratio Glucose POC Glucose 170 H Calcium
--- NOTE | 2017-08-16 04:35 | XRay Report ---
FINAL REPORT EXAM: XR CHEST 1V AP HISTORY: Follow-up respiratory failure. TECHNIQUE: A single frontal portable radiograph of the chest was obtained. Comparison is made with prior study 08/15/2017. FINDINGS: The patient is status post median sternotomy. The heart is enlarged, and the aorta is tortuous and calcified, stable. An endotracheal tube remains in place with tip approximately 6 cm above the smita. A nasogastric tube traverses the thorax into the stomach, though its tip is not included on this film. Two right jugular central venous catheters are seen terminating overlying the SVC. Again demonstrated is mild pulmonary vascular congestion, with bilateral perihilar and basilar opacities. This may be on the basis of congestive heart failure/pulmonary edema, though pneumonia is not excluded. There are small bilateral pleural effusions, stable. There is no pneumothorax. Mild spondylotic changes are seen in the spine. The overall appearance of the chest is stable compared to prior exam. IMPRESSION: Overall, no significant interval change compared to 08/15/2017.
[2017-08-16 04:57] LABS: Basophils % (Auto) 0.1 % (0.0-1.8); Eosinophils % (Auto) 0.1 % (0.0-4.3); Hematocrit 22.6 % (35.5-45.6); Hemoglobin 7.5 gm/dl (11.8-15.2); Lymphocytes # (Auto) 0.9 K/mm3 (1.2-5.4); Lymphocytes % (Auto) 6.6 % (13.4-35.0); Mean Corpuscular HGB Conc 33 % (32-34); Mean Corpuscular Hemoglobin 30 pg (28-32); Mean Corpuscular Volume 89 fl (84-94); Monocytes # (Auto) 1.4 K/mm3 (0.0-0.8); Monocytes % (Auto) 10.1 % (0.0-7.3); Red Blood Count 2.54 M/mm3 (3.65-5.03); Red Cell Distribution Width 16.4 % (13.2-15.2)
[2017-08-16 05:00] LABS: Platelet Count 73 K/mm3 (140-440)
[2017-08-16] MEDS: HumaLOG SUB-Q SCH ×4 (06:52→23:32)
--- NOTE | 2017-08-16 08:11 | Progress Note ---
Assessment and Plan s/p [employer] endarterectomy, stent placement - complicated by intrab-dominal hemorrhage, subsequent stent revision Patient has improved in several respects: - now opens eyes and squeezes hand on command. Will turn his head towards voice. Still doesn't respond properly when asked to move feet. Moves all extremities spontaneously - abdomen and scrotum, while still quite distended and edematous, much less so than yesterday. - hemodynamically stable overall - no pressors, BP elevated - platelet count has seemed to stabilize - Major issues now include renal function (pt on dialysis, being followed by nephrology) and vent weaning (awaiting improved neuro status, being followed by pulm) Subjective Date of service: 08/16/17 Principal diagnosis: Acute Hypoxemic Respiratory Failure; Hemorrhagic Shock; WILLIAM on Dilaysis;PVD Interval history: Patient is improving in many respects, see A/P. No acute events. Objective - Constitutional Vitals: Vital Signs - 12hr 08/15/17 08/15/17 08/15/17 20:15 20:27 21:00 Temperature 97.1 F L 97.1 F L Pulse Rate 95 H 97 H Respiratory 16 17 Rate Blood Pressure 117/63 154/78 O2 Sat by Pulse 97 Oximetry O2 Sat by Pulse 97 Oximetry [ Anterior Bilateral Throughout] 08/15/17 08/15/17 08/15/17 21:20 22:00 23:00 Temperature Pulse Rate 94 H 92 H 94 H Respiratory 15 18 Rate Blood Pressure 132/63 136/66 137/69 O2 Sat by Pulse 96 97 97 Oximetry O2 Sat by Pulse Oximetry [ Anterior Bilateral Throughout] 08/15/17 08/16/17 08/16/17 23:34 00:00 00:15 Temperature 98.2 F 98.2 F Pulse Rate 96 H 93 H Respiratory 16 15 Rate Blood Pressure 142/69 131/62 O2 Sat by Pulse 96 97 Oximetry O2 Sat by Pulse Oximetry [ Anterior Bilateral Throughout] 08/16/17 08/16/17 08/16/17 01:00 01:25 02:00 Temperature Pulse Rate 94 H 99 H 99 H Respiratory 15 18 Rate Blood Pressure 149/71 159/78 O2 Sat by Pulse 96 95 Oximetry O2 Sat by Pulse Oximetry [ Anterior Bilateral Throughout] 08/16/17 08/16/17 08/16/17 03:00 04:00 04:23 Temperature 98.3 F 98.3 F Pulse Rate 90 95 H Respiratory 15 15 Rate Blood Pressure 142/69 162/66 O2 Sat by Pulse 97 96 Oximetry O2 Sat by Pulse Oximetry [ Anterior Bilateral Throughout] 08/16/17 08/16/17 05:00 06:00 Temperature Pulse Rate 91 H 94 H Respiratory 15 15 Rate Blood Pressure 142/75 147/72 O2 Sat by Pulse 97 98 Oximetry O2 Sat by Pulse Oximetry [ Anterior Bilateral Throughout] General appearance: Present: no acute distress - EENT Eyes: EOM intact - Neck Neck: supple - Respiratory Respiratory effort: other (intubated) Extremities: no ischemia, normal temperature Extremity abnormal: edema - Gastrointestinal General gastrointestinal: Present: other (softer and less distended c/w yesterday) - Neurologic Neurologic: moves all extremities - Labs CBC & Chem 7: 08/16/17 04:42 08/15/17 13:22 Labs: Abnormal lab results 08/15/17 08/15/17 08/15/17 Range/Units 12:20 13:22 18:05 WBC (4.5-11.0) K/mm3 RBC (3.65-5.03) M/mm3 Hgb (11.8-15.2) gm/dl Hct (35.5-45.6) % RDW (13.2-15.2) % Plt Count (140-440) K/mm3 Lymph % (Auto) (13.4-35.0) % [place] % (Auto) (0.0-7.3) % Lymph # (1.2-5.4) K/mm3 [place] # (0.0-0.8) K/mm3 Seg Neutrophils % (40.0-70.0) % Seg Neutrophils # (1.8-7.7) K/mm3 POC ABG pO2 (80-105) BUN 45 H (9-20) mg/dL Creatinine 4.1 H (0.8-1.5) mg/dL Glucose 141 H (75-100) mg/dL POC Glucose 147 H 170 H (70-105) Calcium 7.8 L (8.4-10.2) mg/dL 08/15/17 08/16/17 08/16/17 Range/Units 23:43 04:42 05:22 WBC 14.2 H (4.5-11.0) K/mm3 RBC 2.54 L (3.65-5.03) M/mm3 Hgb 7.5 L (11.8-15.2) gm/dl Hct 22.6 L (35.5-45.6) % RDW 16.4 H (13.2-15.2) % Plt Count 73 L (140-440) K/mm3 Lymph % (Auto) 6.6 L (13.4-35.0) % [place] % (Auto) 10.1 H (0.0-7.3) % Lymph # 0.9 L (1.2-5.4) K/mm3 [place] # 1.4 H (0.0-0.8) K/mm3 Seg Neutrophils % 83.1 H (40.0-70.0) % Seg Neutrophils # 11.8 H (1.8-7.7) K/mm3 POC ABG pO2 71 L (80-105) BUN (9-20) mg/dL Creatinine (0.8-1.5) mg/dL Glucose (75-100) mg/dL POC Glucose 155 H (70-105) Calcium (8.4-10.2) mg/dL 08/16/17 Range/Units 06:20 WBC (4.5-11.0) K/mm3 RBC (3.65-5.03) M/mm3 Hgb (11.8-15.2) gm/dl Hct (35.5-45.6) % RDW (13.2-15.2) % Plt Count (140-440) K/mm3 Lymph % (Auto) (13.4-35.0) % [place] % (Auto) (0.0-7.3) % Lymph # (1.2-5.4) K/mm3 [place] # (0.0-0.8) K/mm3 Seg Neutrophils % (40.0-70.0) % Seg Neutrophils # (1.8-7.7) K/mm3 POC ABG pO2 (80-105) BUN (9-20) mg/dL Creatinine (0.8-1.5) mg/dL Glucose (75-100) mg/dL POC Glucose 165 H (70-105) Calcium (8.4-10.2) mg/dL
--- NOTE | 2017-08-16 08:12 | Progress Note ---
Assessment and Plan - Patient Problems (1) Acute renal failure due to tubular necrosis Current Visit: Yes Status: Acute Plan to address problem: ATN due to acute hemorrhagic shock, pt remains oliguric. BP stable off levophed Pt with increasing urine output, will hold HD today monitor I/Os, lytes and renal indices closely and assess need for renal replacement therapy on a daily basis Cont supportive care for WILLIAM/ATN, avoid nephrotoxins, NSAIDs, IV contrast if possible. (2) Hemorrhagic shock Current Visit: Yes Status: Acute Plan to address problem: pt s/p multiple PRBCs/FFPs, now off vasopressor support (3) Hyperkalemia Current Visit: Yes Status: Acute Plan to address problem: improved with HD (4) Metabolic acidosis Current Visit: Yes Status: Acute Plan to address problem: due lactic acidosis/WILLIAM, improved with HD (5) Atherosclerosis of [place] arteries of extremity with intermittent claudication Current Visit: No Status: Acute Plan to address problem: management as per vascular surgery (6) Hypocalcemia Current Visit: Yes Status: Acute Plan to address problem: in the setting of trasnfusion w/ multiple blood products; improved with Ca gluconate supplementation, HD with 3ca bath Subjective Date of service: 08/16/17 Principal diagnosis: Acute Hypoxemic Respiratory Failure; Hemorrhagic Shock; WILLIAM on Dilaysis;PVD Interval history: pt remains on vent, BP now elevated, off vasopressor support Objective - Vital Signs Vital signs: Vital Signs - 12hr 08/15/17 08/15/17 08/15/17 20:15 20:27 21:00 Temperature 97.1 F L 97.1 F L Pulse Rate 95 H 97 H Respiratory 16 17 Rate Blood Pressure 117/63 154/78 O2 Sat by Pulse 97 Oximetry O2 Sat by Pulse 97 Oximetry [ Anterior Bilateral Throughout] 08/15/17 08/15/17 08/15/17 21:20 22:00 23:00 Temperature Pulse Rate 94 H 92 H 94 H Respiratory 15 18 Rate Blood Pressure 132/63 136/66 137/69 O2 Sat by Pulse 96 97 97 Oximetry O2 Sat by Pulse Oximetry [ Anterior Bilateral Throughout] 08/15/17 08/16/17 08/16/17 23:34 00:00 00:15 Temperature 98.2 F 98.2 F Pulse Rate 96 H 93 H Respiratory 16 15 Rate Blood Pressure 142/69 131/62 O2 Sat by Pulse 96 97 Oximetry O2 Sat by Pulse Oximetry [ Anterior Bilateral Throughout] 08/16/17 08/16/17 08/16/17 01:00 01:25 02:00 Temperature Pulse Rate 94 H 99 H 99 H Respiratory 15 18 Rate Blood Pressure 149/71 159/78 O2 Sat by Pulse 96 95 Oximetry O2 Sat by Pulse Oximetry [ Anterior Bilateral Throughout] 08/16/17 08/16/17 08/16/17 03:00 04:00 04:23 Temperature 98.3 F 98.3 F Pulse Rate 90 95 H Respiratory 15 15 Rate Blood Pressure 142/69 162/66 O2 Sat by Pulse 97 96 Oximetry O2 Sat by Pulse Oximetry [ Anterior Bilateral Throughout] 08/16/17 08/16/17 05:00 06:00 Temperature Pulse Rate 91 H 94 H Respiratory 15 15 Rate Blood Pressure 142/75 147/72 O2 Sat by Pulse 97 98 Oximetry O2 Sat by Pulse Oximetry [ Anterior Bilateral Throughout] - General Appearance General appearance: well-developed, well-nourished, appears stated age, intubated EENT: ATNC, PERRL, mucous membranes moist Neck: no JVD Respiratory: Present: Decreased Breath Sounds Cardiology: regular, tachycardia, S1S2 Gastrointestinal: normoactive bowel sounds, obese Integumentary: no rash, other (2+ edema b/l LE ) Neurologic: other (intubated ) - Lab 08/16/17 04:42 08/15/17 13:22 Most recent lab results Calcium 7.8 mg/dL (8.4-10.2) L 08/15/17 13:22
[2017-08-16] MEDS: [UNRECOGNIZED DRUG - OTHER] OS SCH ×3 (09:21→23:24)
[2017-08-16] MEDS: DOXYCYCLINE HYCLATE 100 MG in NACL 0.9% 250ML 250 ML IV SCH ×2 (09:22→22:15)
[2017-08-16] MEDS: LEVAQUIN 500MG/100ML 500 MG/100 ML BAG IV SCH (09:22)
[2017-08-16] MEDS: VITAMIN B-1 PO SCH (09:23)
[2017-08-16] MEDS: PEPCID IV SCH (09:23)
[2017-08-16] MEDS: HALFPRIN EC PO SCH (09:23)
[2017-08-16] MEDS: FOLVITE PO SCH (09:23)
[2017-08-16] MEDS: PAXIL PO SCH (09:23)
[2017-08-16] MEDS: HABITROL TD SCH (09:23)
[2017-08-16] MEDS: THERAGRAN Tab PO SCH (09:24)
[2017-08-16] MEDS: fentaNYL DRIP Premix 2,000 MCG/100 ML BAG IV SCH ×3 (09:25→17:20)
--- NOTE | 2017-08-16 09:47 | Progress Note ---
Assessment and Plan Assessment and plan: 66-year-old male status post acute hypoxemic respiratory failure and vasogenic shock remains hemodynamically unstable #1 acute hypoxic respiratory failure patient remains intubated unable to wean down secondary to altered mental status. Attempt to wean sedation patient developed agitation. Patient's cognition is not improved enough for extubation attempt at this particular time. Pulmonology following. #2 vasogenic shock -at present blood pressure is stable and actually high at this time. Patient is off pressor support hemoglobin and hematocrit have remained stable. Patient platelets also had remained stable and now 74 #3 acute kidney injury secondary to ATN, shock oliguria. Patient is not requiring hemodialysis today and will be done on a when necessary basis. Patient continues to make urine and in fact output has increased #4 metabolic acidosis resolving #6 thrombocytopenia continues to improve HIT panel pending Platelet count is stable has increased from 64-74 s. #7 PVD status post common femoral endarterectomy followed for vascular surgery #9 diabetes fairly well controlled with insulin sliding scale would not change at this particular time #10 hypertension we'll add low dose beta rohini The high probability of a clinically significant, sudden or life threatening deterioration of the [x] system(s) required my full and direct attention, intervention and personal management. The aggregate critical care time was [x] minutes. This time is in addition to time spent performing reported procedures but includes the following: [x] Data Review and interpretation x[x] Patient assessment and monitoring of vital signs [x] Documentation [x] Medication orders and management Total Time Spent with Patient (Minutes): 40 History Interval history: Family bedside all questions and concerns answered to their satisfaction. Patient was able to squeeze hand on verbal cue. Remains sedated and intubated. Chest x-ray no changes small bilateral pleural effusions Hospitalist Physical - Constitutional Vitals: Temp Pulse Resp BP Pulse Ox 98.6 F 124 H 15 115/55 91 08/16/17 08:00 08/16/17 08:57 08/16/17 06:00 08/16/17 08:57 08/16/17 08:57 General appearance: Present: no acute distress, other (intubated sedated some improvement in mental status more alert) - EENT ENT: hearing intact - Neck Neck: Present: supple. Absent: rigidity, enlarged thyroid, masses or JVD, carotid bruits - Respiratory Respiratory: bilateral: diminished (intubated) - Cardiovascular Rhythm: regular Heart Sounds: Present: S1 & S2 - Extremities Extremities: no ischemia, normal temperature Extremity abnormal: edema (+1), other ( will move all extremities but not at verbal cueing) - Abdominal General gastrointestinal: soft, non-distended, hypoactive bowel sounds, other ( obese), no hepatomegaly, no splenomegaly - Integumentary Integumentary: Present: clear, warm, dry - Psychiatric Psychiatric: agitated, other (somewhat agitated when removing sedation) Results - Labs CBC & Chem 7: 08/16/17 04:42 08/15/17 13:22 Labs: Laboratory Last Values WBC 14.2 K/mm3 (4.5-11.0) H 08/16/17 04:42 RBC 2.54 M/mm3 (3.65-5.03) L 08/16/17 04:42 Hgb 7.5 gm/dl (11.8-15.2) L 08/16/17 04:42 POC Hgb 8.5 (12-17) L 08/11/17 14:39 Hct 22.6 % (35.5-45.6) L 08/16/17 04:42 POC Hct 25 (38-51) L 08/11/17 14:39 MCV 89 fl (84-94) 08/16/17 04:42 MCH 30 pg (28-32) 08/16/17 04:42 MCHC 33 % (32-34) 08/16/17 04:42 RDW 16.4 % (13.2-15.2) H 08/16/17 04:42 Plt Count 73 K/mm3 (140-440) L 08/16/17 04:42 Lymph % (Auto) 6.6 % (13.4-35.0) L 08/16/17 04:42 [place] % (Auto) 10.1 % (0.0-7.3) H 08/16/17 04:42 Eos % (Auto) 0.1 % (0.0-4.3) 08/16/17 04:42 Baso % (Auto) 0.1 % (0.0-1.8) 08/16/17 04:42 Lymph # 0.9 K/mm3 (1.2-5.4) L 08/16/17 04:42 [place] # 1.4 K/mm3 (0.0-0.8) H 08/16/17 04:42 Eos # 0.0 K/mm3 (0.0-0.4) 08/16/17 04:42 Baso # 0.0 K/mm3 (0.0-0.1) 08/16/17 04:42 Seg Neutrophils % 83.1 % (40.0-70.0) H 08/16/17 04:42 Seg Neutrophils # 11.8 K/mm3 (1.8-7.7) H 08/16/17 04:42 PT 15.7 Sec. (12.2-14.9) H 08/14/17 05:00 INR 1.18 (0.87-1.13) H 08/14/17 05:00 APTT 31.7 Sec. (24.2-36.6) 08/14/17 05:00 Activated Clotting Time 164 (74-137) H 08/11/17 14:46 Fibrinogen 424 mg/dl (211-480) 08/14/17 05:00 D-Dimer 950.64 ng/mlDDU (0-234) H 08/14/17 05:00 Heparin Anti-Xa Level < 0.10 U.I./ml (0.3-0.7) L 08/12/17 21:50 POC ABG pH 7.393 (7.35-7.45) 08/16/17 05:22 POC ABG pCO2 41.9 (35-45) 08/16/17 05:22 POC ABG pO2 71 (80-105) L 08/16/17 05:22 POC ABG HCO3 25.5 08/16/17 05:22 POC ABG Total CO2 27 08/16/17 05:22 POC ABG O2 Sat 94 08/16/17 05:22 POC ABG Base Excess 1 08/16/17 05:22 POC Sodium 142 mmol/L (138-146) 08/11/17 14:39 POC Potassium 4.2 (3.5-4.9) 08/11/17 14:39 POC Chloride 109 (98-109) 08/11/17 14:39 FiO2 65 % 08/16/17 05:22 Sodium 142 mmol/L (137-145) 08/15/17 13:22 Potassium 4.6 mmol/L (3.6-5.0) 08/15/17 13:22 Chloride 105.0 mmol/L (98-107) 08/15/17 13:22 Carbon Dioxide 23 mmol/L (22-30) 08/15/17 13:22 Anion Gap 19 mmol/L 08/15/17 13:22 POC BUN 13 mg/dl (8-26) 08/11/17 14:39 BUN 45 mg/dL (9-20) H 08/15/17 13:22 Creatinine 4.1 mg/dL (0.8-1.5) H 08/15/17 13:22 Estimated GFR 15 ml/min 08/15/17 13:22 BUN/Creatinine Ratio 11 % 08/15/17 13:22 Glucose 141 mg/dL (75-100) H 08/15/17 13:22 POC Glucose 191 (70-105) H 08/16/17 08:49 Lactic Acid 1.70 mmol/L (0.7-2.0) 08/14/17 05:00 Calcium 7.8 mg/dL (8.4-10.2) L 08/15/17 13:22 Total Bilirubin 0.20 mg/dL (0.1-1.2) 08/13/17 05:46 AST 1304 units/L (5-40) H 08/13/17 05:46 ALT 533 units/L (7-56) H 08/13/17 05:46 Alkaline Phosphatase 38 units/L (35-129) 08/13/17 05:46 C-Reactive Protein 29.00 mg/dL (0.00-1.30) H 08/14/17 11:28 Total Protein 4.4 g/dL (6.3-8.2) L 08/13/17 05:46 Albumin 2.8 g/dL (3.9-5) L 08/13/17 05:46 Albumin/Globulin Ratio 1.8 % 08/13/17 05:46 Urine Color Red (Yellow) 08/12/17 18:30 Urine Turbidity Hazy (Clear) 08/12/17 18:30 Urine pH 5.0 (5.0-7.0) 08/12/17 18:30 Ur Specific [place] 1.051 (1.003-1.030) H 08/12/17 18:30 Urine Protein 100 mg/dl mg/dL (Negative) 08/12/17 18:30 Urine Glucose (UA) 50 mg/dL (Negative) 08/12/17 18:30 Urine Ketones Neg mg/dL (Negative) 08/12/17 18:30 Urine Blood Lg (Negative) 08/12/17 18:30 Urine Nitrite Neg (Negative) 08/12/17 18:30 Urine Bilirubin Neg (Negative) 08/12/17 18:30 Urine Urobilinogen < 2.0 mg/dL (<2.0) 08/12/17 18:30 Ur Leukocyte Esterase Tr (Negative) 08/12/17 18:30 Urine WBC (Auto) > 182.0 /HPF (0.0-6.0) H 08/12/17 18:30 Urine RBC (Auto) > 182.0 /HPF (0.0-6.0) 08/12/17 18:30 Urine Mucus 1+ /HPF 08/12/17 18:30 Hepatitis A IgM Ab Non-reactive (NonReactive) 08/13/17 15:35 Hep Bs Antigen Non-reactive (Negative) 08/13/17 15:35 Hep B Core IgM Ab Non-reactive (NonReactive) 08/13/17 15:35 Hepatitis C Antibody Non-reactive (NonReactive) 08/13/17 15:35 Blood Type O POSITIVE 08/11/17 06:50 Antibody Screen Negative 08/11/17 06:50 Crossmatch See Detail 08/11/17 06:50 - Imaging and Cardiology Chest x-ray: image reviewed
[2017-08-16] MEDS ORDERED: APRESOLINE IV PRN (10:02)
--- NOTE | 2017-08-16 10:53 | Progress Note ---
Assessment and Plan Acute Hypoxic Respiratory failure Vasogenic Shock, Presumed Bleed WILLIAM Secondary to vasomotor nephropathy Severe Metabolic Acidosis Acute blood loss anemia PVD s/p right femoral end-arterectomy Acute encephalopathy s/p Massive blood transfusion Leukocytosis Tobacco abuse disorder/Nicotine dependence -Continue with mechanical ventilatory support -VAP bundle addressed -HD today -Add Carvedilol for better BP control -VTE/Stress ulcer prophylaxis. -Will start heparin if ok with vascular service -Empiric antibiotics as per ID -Aspiration precautions -Agitation and analgesia. Avoid benzodiazepines Add nicotine patch, as his agitation may also be worsened by nicotine withdrawal -Avoid nephrotoxic agents, continue to monitor Is and Os -Enteric nutrition with glycemic control -Discontinue CIWA protocol -Wean FIO2 for O2 sats>90%, once FIO2 is down to 50, start weaning PEEP -CXR and ABG in the morning, and prn -Family( and son) updated at the bedside. All their questions were answered. -Full code status Subjective Date of service: 08/16/17 Principal diagnosis: Acute Hypoxemic Respiratory Failure; Hemorrhagic Shock; WILLIAM on Dilaysis;PVD Interval history: Seen and examined at bedside; 24 hour events reviewed; Vitals, labs, medications, chart reviewed. Family at the bedside. They state he was never a big drinker, but he smoked 1- 1.5 packs of cigarettes every day. Remains on MVS; AMS is persistent, still agitated during SAT's and non purposeful Off vasopressor support with hypertension and tachycardia. No fevers overnight. Discussed with RT and RN Objective - Exam Narrative Exam: VITAL SIGNS: Reviewed. GENERAL: The patient appeared ill, ETT to mechanical ventilation, mild respiratory distress HEAD: No signs of head trauma. EYES: Pupils are equal. Extraocular motions intact. NECK: No adenopathy, no JVD. CHEST: Chest with clear breath sounds bilaterally. No wheezes, rales, or rhonchi. CARDIAC: Regular rate and rhythm. S1 and S2, without murmurs, gallops, or rubs. VASCULAR: 3+Edema. Peripheral pulses normal and equal in all extremities. ABDOMEN: Soft, without detectable tenderness. Distended and tympanic No rebound or guarding, and no masses palpated. Bowel Sounds normal. Significant Scrotal edema MUSCULOSKELETAL: Good range of motion of all major joints. Extremities without clubbing, cyanosis or edema. NEUROLOGIC EXAM: Encephalopathic SKIN: Ecchymosis of the right femoral area. Vital Signs - 12hr 08/15/17 08/15/17 08/16/17 23:00 23:34 00:00 Temperature 98.2 F Pulse Rate 94 H 96 H 93 H Respiratory 18 16 15 Rate Blood Pressure 137/69 142/69 131/62 O2 Sat by Pulse 97 96 97 Oximetry 08/16/17 08/16/17 08/16/17 00:15 01:00 01:25 Temperature 98.2 F Pulse Rate 94 H 99 H Respiratory 15 Rate Blood Pressure 149/71 O2 Sat by Pulse 96 Oximetry 08/16/17 08/16/17 08/16/17 02:00 03:00 04:00 Temperature 98.3 F Pulse Rate 99 H 90 95 H Respiratory 18 15 15 Rate Blood Pressure 159/78 142/69 162/66 O2 Sat by Pulse 95 97 96 Oximetry 08/16/17 08/16/17 08/16/17 04:23 05:00 06:00 Temperature 98.3 F Pulse Rate 91 H 94 H Respiratory 15 15 Rate Blood Pressure 142/75 147/72 O2 Sat by Pulse 97 98 Oximetry 08/16/17 08/16/17 08:00 08:57 Temperature 98.6 F Pulse Rate 124 H Respiratory Rate Blood Pressure 115/55 O2 Sat by Pulse 91 Oximetry CBC and BMP: 08/20/17 04:45 08/20/17 04:45 ABG, PT/INR, D-dimer: ABG POC ABG pH 7.393 (7.35-7.45) 08/16/17 05:22 POC ABG pCO2 41.9 (35-45) 08/16/17 05:22 POC ABG pO2 71 (80-105) L 08/16/17 05:22 POC ABG HCO3 25.5 08/16/17 05:22 POC ABG Total CO2 27 08/16/17 05:22 POC ABG O2 Sat 94 08/16/17 05:22 PT/INR, D-dimer PT 15.7 Sec. (12.2-14.9) H 08/14/17 05:00 INR 1.18 (0.87-1.13) H 08/14/17 05:00 D-Dimer 950.64 ng/mlDDU (0-234) H 08/14/17 05:00 Abnormal lab findings: Abnormal Labs 08/10/17 08/10/17 08/10/17 10:05 10:05 10:05 WBC RBC Hgb POC Hgb Hct POC Hct MCV 97 H MCH 33 H RDW Plt Count Lymph % (Auto) [place] % (Auto) Lymph # [place] # Seg Neutrophils % 72.9 H Seg Neutrophils # PT 11.6 L INR 0.81 L APTT Activated Clotting Time D-Dimer Heparin Anti-Xa Level POC ABG pH POC ABG pCO2 POC ABG pO2 Potassium Chloride Carbon Dioxide BUN Creatinine 0.7 L Glucose 196 H POC Glucose Lactic Acid Calcium AST ALT C-Reactive Protein Total Protein Albumin Ur Specific [place] Urine WBC (Auto) Crossmatch 08/11/17 08/11/17 08/11/17 06:50 07:03 09:50 WBC RBC Hgb POC Hgb Hct POC Hct MCV MCH RDW Plt Count Lymph % (Auto) [place] % (Auto) Lymph # [place] # Seg Neutrophils % Seg Neutrophils # PT INR APTT Activated Clotting Time D-Dimer Heparin Anti-Xa Level POC ABG pH 7.270 L POC ABG pCO2 49.1 H POC ABG pO2 117 H Potassium Chloride Carbon Dioxide BUN Creatinine Glucose POC Glucose 160 H Lactic Acid Calcium AST ALT C-Reactive Protein Total Protein Albumin Ur Specific [place] Urine WBC (Auto) Crossmatch See Detail 08/11/17 08/11/17 08/11/17 10:52 11:12 12:16 WBC RBC Hgb POC Hgb Hct POC Hct MCV MCH RDW Plt Count Lymph % (Auto) [place] % (Auto) Lymph # [place] # Seg Neutrophils % Seg Neutrophils # PT INR APTT Activated Clotting Time 191 H 153 H D-Dimer Heparin Anti-Xa Level POC ABG pH POC ABG pCO2 POC ABG pO2 Potassium Chloride Carbon Dioxide BUN Creatinine Glucose POC Glucose 176 H Lactic Acid Calcium AST ALT C-Reactive Protein Total Protein Albumin Ur Specific [place] Urine WBC (Auto) Crossmatch 08/11/17 08/11/17 08/11/17 12:27 13:07 14:39 WBC RBC Hgb POC Hgb 9.9 L 8.5 L Hct POC Hct 29 L 25 L MCV MCH RDW Plt Count Lymph % (Auto) [place] % (Auto) Lymph # [place] # Seg Neutrophils % Seg Neutrophils # PT INR APTT Activated Clotting Time 186 H D-Dimer Heparin Anti-Xa Level POC ABG pH POC ABG pCO2 POC ABG pO2 Potassium Chloride Carbon Dioxide BUN Creatinine Glucose POC Glucose 183 H 197 H Lactic Acid Calcium AST ALT C-Reactive Protein Total Protein Albumin Ur Specific [place] Urine WBC (Auto) Crossmatch 08/11/17 08/11/17 08/11/17 14:46 16:18 17:57 WBC 12.7 H RBC 3.00 L Hgb 9.5 L D POC Hgb Hct 28.3 L D POC Hct MCV MCH RDW 16.3 H Plt Count 105 L Lymph % (Auto) 6.7 L [place] % (Auto) Lymph # 0.8 L [place] # Seg Neutrophils % 86.3 H Seg Neutrophils # 10.9 H PT INR APTT Activated Clotting Time 164 H D-Dimer Heparin Anti-Xa Level POC ABG pH POC ABG pCO2 POC ABG pO2 Potassium Chloride Carbon Dioxide BUN Creatinine Glucose POC Glucose 192 H Lactic Acid Calcium AST ALT C-Reactive Protein Total Protein Albumin Ur Specific [place] Urine WBC (Auto) Crossmatch 08/11/17 08/11/17 08/11/17 17:57 20:00 20:00 WBC RBC Hgb 10.2 L POC Hgb Hct 31.1 L POC Hct MCV MCH RDW Plt Count 117 L Lymph % (Auto) [place] % (Auto) Lymph # [place] # Seg Neutrophils % Seg Neutrophils # PT 15.3 H INR 1.15 H APTT 97.7 H* Activated Clotting Time D-Dimer Heparin Anti-Xa Level POC ABG pH POC ABG pCO2 POC ABG pO2 Potassium Chloride 117.4 H Carbon Dioxide 18 L BUN Creatinine 0.7 L Glucose 143 H POC Glucose Lactic Acid Calcium 6.4 L D AST ALT C-Reactive Protein Total Protein Albumin Ur Specific [place] Urine WBC (Auto) Crossmatch 08/12/17 08/12/17 08/12/17 03:30 03:50 03:50 WBC RBC Hgb 9.2 L 9.1 L POC Hgb Hct 27.5 L 27.2 L POC Hct MCV MCH RDW Plt Count Lymph % (Auto) [place] % (Auto) Lymph # [place] # Seg Neutrophils % Seg Neutrophils # PT INR APTT Activated Clotting Time D-Dimer Heparin Anti-Xa Level POC ABG pH POC ABG pCO2 POC ABG pO2 Potassium Chloride 113.5 H Carbon Dioxide 13 L BUN Creatinine Glucose 243 H POC Glucose Lactic Acid Calcium 6.3 L AST ALT C-Reactive Protein Total Protein Albumin Ur Specific [place] Urine WBC (Auto) Crossmatch 08/12/17 08/12/17 08/12/17 07:36 08:48 16:16 WBC RBC Hgb POC Hgb Hct POC Hct MCV MCH RDW Plt Count Lymph % (Auto) [place] % (Auto) Lymph # [place] # Seg Neutrophils % Seg Neutrophils # PT INR APTT Activated Clotting Time D-Dimer Heparin Anti-Xa Level POC ABG pH 6.952 L 7.159 L POC ABG pCO2 49.1 H 47.8 H POC ABG pO2 76 L 106 H Potassium Chloride Carbon Dioxide BUN Creatinine Glucose POC Glucose 246 H Lactic Acid Calcium AST ALT C-Reactive Protein Total Protein Albumin Ur Specific [place] Urine WBC (Auto) Crossmatch 08/12/17 08/12/17 08/12/17 17:54 18:30 20:15 WBC 17.9 H RBC 3.29 L Hgb 10.0 L POC Hgb Hct 29.3 L POC Hct MCV MCH RDW 15.5 H Plt Count 76 L Lymph % (Auto) [place] % (Auto) Lymph # [place] # Seg Neutrophils % Seg Neutrophils # PT INR APTT Activated Clotting Time D-Dimer Heparin Anti-Xa Level POC ABG pH POC ABG pCO2 POC ABG pO2 Potassium Chloride Carbon Dioxide BUN Creatinine Glucose POC Glucose 240 H Lactic Acid Calcium AST ALT C-Reactive Protein Total Protein Albumin Ur Specific [place] 1.051 H Urine WBC (Auto) > 182.0 H Crossmatch 08/12/17 08/12/17 08/13/17 21:50 21:50 03:20 WBC RBC Hgb POC Hgb Hct POC Hct MCV MCH RDW Plt Count Lymph % (Auto) [place] % (Auto) Lymph # [place] # Seg Neutrophils % Seg Neutrophils # PT INR APTT Activated Clotting Time D-Dimer Heparin Anti-Xa Level < 0.10 L POC ABG pH POC ABG pCO2 POC ABG pO2 Potassium 5.4 H Chloride 110.8 H Carbon Dioxide 18 L BUN 30 H Creatinine 2.5 H D Glucose 216 H POC Glucose 235 H Lactic Acid Calcium 5.7 L* AST ALT C-Reactive Protein Total Protein Albumin Ur Specific [place] Urine WBC (Auto) Crossmatch 08/13/17 08/13/17 08/13/17 05:46 05:46 06:06 WBC 14.6 H RBC 2.49 L Hgb 7.6 L POC Hgb Hct 22.3 L D POC Hct MCV MCH RDW 15.7 H Plt Count 78 L Lymph % (Auto) 10.3 L [place] % (Auto) Lymph # [place] # Seg Neutrophils % 84.1 H Seg Neutrophils # 12.3 H PT INR APTT Activated Clotting Time D-Dimer Heparin Anti-Xa Level POC ABG pH 7.282 L POC ABG pCO2 POC ABG pO2 Potassium Chloride 107.5 H Carbon Dioxide 19 L BUN 35 H Creatinine 2.9 H Glucose 242 H POC Glucose Lactic Acid Calcium 6.3 L AST 1304 H ALT 533 H C-Reactive Protein Total Protein 4.4 L Albumin 2.8 L Ur Specific [place] Urine WBC (Auto) Crossmatch 08/13/17 08/13/17 08/13/17 07:10 07:10 09:00 WBC RBC Hgb POC Hgb Hct POC Hct MCV MCH RDW Plt Count Lymph % (Auto) [place] % (Auto) Lymph # [place] # Seg Neutrophils % Seg Neutrophils # PT 17.4 H INR 1.35 H APTT Activated Clotting Time D-Dimer 598.44 H Heparin Anti-Xa Level POC ABG pH POC ABG pCO2 POC ABG pO2 Potassium Chloride 107.2 H Carbon Dioxide 19 L BUN 35 H Creatinine 2.8 H Glucose 240 H POC Glucose Lactic Acid 3.10 H* Calcium 6.2 L AST ALT C-Reactive Protein Total Protein Albumin Ur Specific [place] Urine WBC (Auto) Crossmatch 08/13/17 08/13/17 08/13/17 17:55 18:31 21:19 WBC RBC Hgb POC Hgb Hct POC Hct MCV MCH RDW Plt Count Lymph % (Auto) [place] % (Auto) Lymph # [place] # Seg Neutrophils % Seg Neutrophils # PT INR APTT Activated Clotting Time D-Dimer Heparin Anti-Xa Level POC ABG pH 7.451 H POC ABG pCO2 33.0 L POC ABG pO2 53 L Potassium Chloride Carbon Dioxide BUN Creatinine Glucose POC Glucose 247 H Lactic Acid 2.20 H* Calcium AST ALT C-Reactive Protein Total Protein Albumin Ur Specific [place] Urine WBC (Auto) Crossmatch 08/13/17 08/14/17 08/14/17 23:34 00:10 05:00 WBC RBC Hgb POC Hgb Hct POC Hct MCV MCH RDW Plt Count Lymph % (Auto) [place] % (Auto) Lymph # [place] # Seg Neutrophils % Seg Neutrophils # PT 15.7 H INR 1.18 H APTT Activated Clotting Time D-Dimer 950.64 H Heparin Anti-Xa Level POC ABG pH POC ABG pCO2 POC ABG pO2 Potassium Chloride Carbon Dioxide BUN Creatinine Glucose POC Glucose 237 H Lactic Acid 2.70 H* Calcium AST ALT C-Reactive Protein Total Protein Albumin Ur Specific [place] Urine WBC (Auto) Crossmatch 08/14/17 08/14/17 08/14/17 05:00 05:11 10:26 WBC 14.2 H RBC 2.66 L Hgb 7.9 L POC Hgb Hct 23.2 L POC Hct MCV MCH RDW 16.0 H Plt Count 75 L Lymph % (Auto) [place] % (Auto) Lymph # [place] # Seg Neutrophils % Seg Neutrophils # PT INR APTT Activated Clotting Time D-Dimer Heparin Anti-Xa Level POC ABG pH POC ABG pCO2 POC ABG pO2 78 L Potassium Chloride Carbon Dioxide BUN Creatinine Glucose POC Glucose 227 H Lactic Acid Calcium AST ALT C-Reactive Protein Total Protein Albumin Ur Specific [place] Urine WBC (Auto) Crossmatch 08/14/17 08/14/17 08/14/17 11:28 11:28 12:06 WBC RBC Hgb POC Hgb Hct POC Hct MCV MCH RDW Plt Count Lymph % (Auto) [place] % (Auto) Lymph # [place] # Seg Neutrophils % Seg Neutrophils # PT INR APTT Activated Clotting Time D-Dimer Heparin Anti-Xa Level POC ABG pH POC ABG pCO2 POC ABG pO2 Potassium Chloride Carbon Dioxide BUN 43 H Creatinine 3.6 H Glucose 209 H POC Glucose 219 H Lactic Acid Calcium 7.6 L D AST ALT C-Reactive Protein 29.00 H Total Protein Albumin Ur Specific [place] Urine WBC (Auto) Crossmatch 08/14/17 08/14/17 08/14/17 17:57 19:54 23:23 WBC RBC Hgb POC Hgb Hct POC Hct MCV MCH RDW Plt Count Lymph % (Auto) [place] % (Auto) Lymph # [place] # Seg Neutrophils % Seg Neutrophils # PT INR APTT Activated Clotting Time D-Dimer Heparin Anti-Xa Level POC ABG pH POC ABG pCO2 46.5 H POC ABG pO2 64 L Potassium Chloride Carbon Dioxide BUN Creatinine Glucose POC Glucose 178 H 170 H Lactic Acid Calcium AST ALT C-Reactive Protein Total Protein Albumin Ur Specific [place] Urine WBC (Auto) Crossmatch 08/15/17 08/15/17 08/15/17 03:44 04:40 05:19 WBC 12.6 H RBC 2.49 L Hgb 7.4 L POC Hgb Hct 22.1 L POC Hct MCV MCH RDW 16.5 H Plt Count 64 L Lymph % (Auto) [place] % (Auto) Lymph # [place] # Seg Neutrophils % Seg Neutrophils # PT INR APTT Activated Clotting Time D-Dimer Heparin Anti-Xa Level POC ABG pH POC ABG pCO2 48.1 H POC ABG pO2 68 L Potassium Chloride Carbon Dioxide BUN Creatinine Glucose POC Glucose 154 H Lactic Acid Calcium AST ALT C-Reactive Protein Total Protein Albumin Ur Specific [place] Urine WBC (Auto) Crossmatch 08/15/17 08/15/17 08/15/17 12:20 13:22 18:05 WBC RBC Hgb POC Hgb Hct POC Hct MCV MCH RDW Plt Count Lymph % (Auto) [place] % (Auto) Lymph # [place] # Seg Neutrophils % Seg Neutrophils # PT INR APTT Activated Clotting Time D-Dimer Heparin Anti-Xa Level POC ABG pH POC ABG pCO2 POC ABG pO2 Potassium Chloride Carbon Dioxide BUN 45 H Creatinine 4.1 H Glucose 141 H POC Glucose 147 H 170 H Lactic Acid Calcium 7.8 L AST ALT C-Reactive Protein Total Protein Albumin Ur Specific [place] Urine WBC (Auto) Crossmatch 08/15/17 08/16/17 08/16/17 23:43 04:42 05:22 WBC 14.2 H RBC 2.54 L Hgb 7.5 L POC Hgb Hct 22.6 L POC Hct MCV MCH RDW 16.4 H Plt Count 73 L Lymph % (Auto) 6.6 L [place] % (Auto) 10.1 H Lymph # 0.9 L [place] # 1.4 H Seg Neutrophils % 83.1 H Seg Neutrophils # 11.8 H PT INR APTT Activated Clotting Time D-Dimer Heparin Anti-Xa Level POC ABG pH POC ABG pCO2 POC ABG pO2 71 L Potassium Chloride Carbon Dioxide BUN Creatinine Glucose POC Glucose 155 H Lactic Acid Calcium AST ALT C-Reactive Protein Total Protein Albumin Ur Specific [place] Urine WBC (Auto) Crossmatch 08/16/17 08/16/17 06:20 08:49 WBC RBC Hgb POC Hgb Hct POC Hct MCV MCH RDW Plt Count Lymph % (Auto) [place] % (Auto) Lymph # [place] # Seg Neutrophils % Seg Neutrophils # PT INR APTT Activated Clotting Time D-Dimer Heparin Anti-Xa Level POC ABG pH POC ABG pCO2 POC ABG pO2 Potassium Chloride Carbon Dioxide BUN Creatinine Glucose POC Glucose 165 H 191 H Lactic Acid Calcium AST ALT C-Reactive Protein Total Protein Albumin Ur Specific [place] Urine WBC (Auto) Crossmatch Critical care time in (mins) excluding proc time.: 31 Critical care attestation.: If time is entered above; I have spent that time in minutes in the direct care of this critically ill patient, excluding procedure time.
[2017-08-16] MEDS: COREG PO SCH ×2 (12:45→22:15)
[2017-08-16 13:36] LABS: Calcium 8.2 mg/dL (8.4-10.2)
[2017-08-16] MEDS ORDERED: HEPARIN ONE (14:00)
[2017-08-16] MEDS ORDERED: SODIUM CHLORIDE FLUSH SYRINGE 10 ML IV ONE (14:00)
--- NOTE | 2017-08-16 15:22 | Progress Note ---
Assessment and Plan - Patient Problems (1) Abdominal distention Current Visit: Yes Status: Acute Plan to address problem: Patient in critical condition. Distention is combination of baseline obesity, hemorrhage, and fluid resuscitation. At this point, the abdomen continues to remain soft, and is less distended today. Staff had difficulty getting bladder pressures due to equipment issues. Pulmonary pressures are stable and acceptable. Risk of compartment syndrome seems to be decreasing. As hemodynamics have been stable, would recommend trickle tube feeds (10cc/hr) - do not advance at this time. May advance once bowel function resumes. Patient at high risk for poor outcome. Please call if there are any questions. spoke with family today. Time=10min Subjective Date of service: 08/16/17 Patient Reports: Positive: other (staff reports no bowel activity. Has tolerated trickle feeds.) Objective Vital Signs - 12hr 08/16/17 08/16/17 08/16/17 04:00 04:23 05:00 Temperature 98.3 F 98.3 F Pulse Rate 95 H 91 H Respiratory 15 15 Rate Blood Pressure 162/66 142/75 O2 Sat by Pulse 96 97 Oximetry 08/16/17 08/16/17 08/16/17 06:00 08:00 08:57 Temperature 98.6 F Pulse Rate 94 H 124 H Respiratory 15 Rate Blood Pressure 147/72 115/55 O2 Sat by Pulse 98 91 Oximetry 08/16/17 08/16/17 08/16/17 11:18 12:00 12:32 Temperature 98.6 F Pulse Rate 131 H 118 H Respiratory Rate Blood Pressure 156/62 118/61 O2 Sat by Pulse 94 Oximetry 08/16/17 12:45 Temperature Pulse Rate 122 H Respiratory Rate Blood Pressure 146/81 O2 Sat by Pulse Oximetry - General physical appearance other (intubated and awake. Not following commands.) - Respiratory normal expansion, normal respiratory effort - Abdomen soft, distended (less so. reported that the current size of the abdomen is about his normal size.), not guarding, not rigid - Integumentary no rash - Labs 08/16/17 04:42 08/16/17 13:00 Diabetes panel 08/16/17 Range/Units 13:00 Sodium 144 (137-145) mmol/L Potassium 4.6 (3.6-5.0) mmol/L Chloride 103.9 (98-107) mmol/L Carbon Dioxide 26 (22-30) mmol/L BUN 47 H (9-20) mg/dL Creatinine 3.4 H (0.8-1.5) mg/dL Glucose 179 H (75-100) mg/dL Calcium 8.2 L (8.4-10.2) mg/dL Calcium panel 08/16/17 Range/Units 13:00 Calcium 8.2 L (8.4-10.2) mg/dL Pituitary panel 08/16/17 Range/Units 13:00 Sodium 144 (137-145) mmol/L Potassium 4.6 (3.6-5.0) mmol/L Chloride 103.9 (98-107) mmol/L Carbon Dioxide 26 (22-30) mmol/L BUN 47 H (9-20) mg/dL Creatinine 3.4 H (0.8-1.5) mg/dL Glucose 179 H (75-100) mg/dL Calcium 8.2 L (8.4-10.2) mg/dL Adrenal panel 08/16/17 Range/Units 13:00 Sodium 144 (137-145) mmol/L Potassium 4.6 (3.6-5.0) mmol/L Chloride 103.9 (98-107) mmol/L Carbon Dioxide 26 (22-30) mmol/L BUN 47 H (9-20) mg/dL Creatinine 3.4 H (0.8-1.5) mg/dL Glucose 179 H (75-100) mg/dL Calcium 8.2 L (8.4-10.2) mg/dL
--- NOTE | 2017-08-16 16:55 | XRay Report ---
FINAL REPORT PROCEDURE: XR ABDOMEN 1V AP TECHNIQUE: Abdominal radiograph, single supine AP view. HISTORY: NGT placement COMPARISON: No prior studies are available for comparison. FINDINGS: NG tube is seen directed into the left side of the stomach and appears to be in good position. The heart is partially visualized and appears enlarged. There is an oval density projecting inferior to the right renal shadow measuring 13.2 x 11.2 centimeter. Indeterminate mass is suspected. The right kidney is more dense than expected in the collecting system appears to be distended. There may have been recent contrast study. I cannot exclude right-sided hydronephrosis. IMPRESSION: NG tube in good position. 13.2 x 11.2 centimeter mass suspected in the right lower quadrant. Right kidney as described. I cannot exclude hydronephrosis or recent contrast-enhanced study. Correlation with contrast administration studies recommended.
[2017-08-16] MEDS: LOPRESSOR IV PRN (18:30)
[2017-08-17] MEDS: fentaNYL DRIP Premix 2,000 MCG/100 ML BAG IV SCH (00:18)
[2017-08-17] MEDS: LOPRESSOR IV PRN (02:00)
--- NOTE | 2017-08-17 03:26 | XRay Report ---
FINAL REPORT EXAM: XR CHEST 1V AP HISTORY: Follow-up respiratory failure. TECHNIQUE: A single frontal portable radiograph of the chest was obtained. Comparison is made with prior study 08/15/2017. FINDINGS: The patient is status post median sternotomy. The heart is enlarged, and the aorta is tortuous and calcified, stable. An endotracheal tube remains in place with tip approximately 6-7 cm above the smita. A nasogastric tube traverses the thorax into the stomach, though its tip is not included on this film. Two right jugular central venous catheters are seen terminating overlying the SVC. Again demonstrated is mild pulmonary vascular congestion, with bilateral perihilar and basilar opacities. This may be on the basis of congestive heart failure/pulmonary edema, though pneumonia is not excluded. There is a probable small right pleural effusion, stable. There is no pneumothorax. Mild spondylotic changes are seen in the spine. Accounting for differences in technique and patient positioning, the overall appearance of the chest is stable compared to prior exam. IMPRESSION: No significant interval change in congestive heart failure/pulmonary edema, with small right pleural effusion.
[2017-08-17 04:56] LABS: Hematocrit 23.8 % (35.5-45.6); Hemoglobin 7.6 gm/dl (11.8-15.2); Mean Corpuscular HGB Conc 32 % (32-34); Mean Corpuscular Hemoglobin 30 pg (28-32); Mean Corpuscular Volume 92 fl (84-94); Red Cell Distribution Width 16.3 % (13.2-15.2)
[2017-08-17 04:58] LABS: Platelet Count 92 K/mm3 (140-440)
[2017-08-17 05:01] LABS: Albumin 3.1 g/dL (3.9-5); Calcium 8.3 mg/dL (8.4-10.2)
[2017-08-17] MEDS: HumaLOG SUB-Q SCH ×3 (06:39→18:30)
[2017-08-17] MEDS ORDERED: NACL 0.9% 100 ML IV PRN (09:17)
[2017-08-17] MEDS ORDERED: PROCRIT IV PRN (09:17)
[2017-08-17] MEDS ORDERED: HEPARIN 10,000 UNITS/10 ML IV PRN (09:17)
--- NOTE | 2017-08-17 09:17 | Hem/Onc Progress Note ---
Assessment and Plan Heparin-induced thrombocytopenia assay is still pending. Discussed with the lab. Most likely will be completed today or early tomorrow. We will continue to monitor. Platelets and hemoglobin stable. White count slightly up. We will continue to monitor. Back Subjective Date of service: 08/17/17 Interval history: Patient off the pressors. Not responding to verbal commands. Does respond to painful stimuli according to the notes. No active bleeding. Objective - Exam Narrative Exam: On ventilator - Constitutional Vitals: Last Vital Signs Temp 98.8 F 08/17/17 05:54 Pulse 107 H 08/17/17 09:00 Resp 11 L 08/17/17 06:01 BP 88/72 08/17/17 09:00 Pulse Ox 94 08/17/17 09:00 - Respiratory Respiratory: bilateral: diminished Extremities: abnormal (postop) - Gastrointestinal General gastrointestinal: Present: distended - Labs Lab Results: Laboratory Results - last 24 hr 08/16/17 08/16/17 08/16/17 11:54 13:00 18:32 WBC RBC Hgb Hct MCV MCH MCHC RDW Plt Count POC ABG pH POC ABG pCO2 POC ABG pO2 POC ABG HCO3 POC ABG Total CO2 POC ABG O2 Sat POC ABG Base Excess FiO2 Sodium 144 Potassium 4.6 Chloride 103.9 Carbon Dioxide 26 Anion Gap 19 BUN 47 H Creatinine 3.4 H Estimated GFR 18 BUN/Creatinine Ratio 14 Glucose 179 H POC Glucose 188 H 219 H Calcium 8.2 L Total Bilirubin AST ALT Alkaline Phosphatase Total Protein Albumin Albumin/Globulin Ratio 08/16/17 08/17/17 08/17/17 23:33 04:25 04:30 WBC 15.2 H RBC 2.60 L Hgb 7.6 L Hct 23.8 L MCV 92 MCH 30 MCHC 32 RDW 16.3 H Plt Count 92 L POC ABG pH POC ABG pCO2 POC ABG pO2 POC ABG HCO3 POC ABG Total CO2 POC ABG O2 Sat POC ABG Base Excess FiO2 Sodium 144 Potassium 4.7 Chloride 102.9 Carbon Dioxide 24 Anion Gap 22 BUN 63 H Creatinine 3.4 H Estimated GFR 18 BUN/Creatinine Ratio 19 Glucose 155 H POC Glucose 179 H Calcium 8.3 L Total Bilirubin 1.40 H AST 99 H ALT 93 H Alkaline Phosphatase 86 Total Protein 5.6 L D Albumin 3.1 L Albumin/Globulin Ratio 1.2 08/17/17 08/17/17 05:32 06:36 WBC RBC Hgb Hct MCV MCH MCHC RDW Plt Count POC ABG pH 7.360 POC ABG pCO2 44.5 POC ABG pO2 57 L POC ABG HCO3 25.2 POC ABG Total CO2 27 POC ABG O2 Sat 88 POC ABG Base Excess 0 FiO2 55 Sodium Potassium Chloride Carbon Dioxide Anion Gap BUN Creatinine Estimated GFR BUN/Creatinine Ratio Glucose POC Glucose 167 H Calcium Total Bilirubin AST ALT Alkaline Phosphatase Total Protein Albumin Albumin/Globulin Ratio
--- NOTE | 2017-08-17 09:19 | Progress Note ---
Assessment and Plan - Patient Problems (1) Acute renal failure due to tubular necrosis Current Visit: Yes Status: Acute (2) Hemorrhagic shock Current Visit: Yes Status: Acute Plan to address problem: Status post multiple transfusions. Appears to be resolving. Follow-up hemoglobin (3) Hyperkalemia Current Visit: Yes Status: Acute Plan to address problem: Potassium improved. Follow-up level (4) Hypocalcemia Current Visit: Yes Status: Acute Plan to address problem: Supplemental calcium as indicated. (5) Metabolic acidosis Current Visit: Yes Status: Acute Plan to address problem: Bicarbonate has improved. Follow bicarbonate level (6) Atherosclerosis of [place] arteries of extremity with intermittent claudication Current Visit: No Status: Acute Plan to address problem: Continue management per vascular surgeon (7) Anemia Current Visit: Yes Status: Acute Plan to address problem: Follow-up hemoglobin Subjective Date of service: 08/17/17 Principal diagnosis: Acute Hypoxemic Respiratory Failure; Hemorrhagic Shock; WILLIAM on Dilaysis;PVD Interval history: Patient seen lying in bed in intensive care unit. He is intubated on the ventilator. He moves on stimulation. Patient is on Levophed Objective - Exam Narrative Exam: Middle aged male lying in bed intubated on ventilator HEENT: NCAT, endotracheal tube intact, orogastric tube intact Neck: Supple, no venous distention CVS: S1S2 RRR with no murmur, rub or gallop Chest: Clear to auscultation Abdomen: Distended, soft to firm, nontender, no organomegaly, bowel sounds are present Extremities: 2+ pitting edema, no cyanosis. Skin warm and dry with areas of ecchymoses Neuro: Moves on stimulation, not following commands - Vital Signs Vital signs: Vital Signs - 12hr 08/16/17 08/16/17 08/16/17 22:01 22:15 22:49 Temperature Pulse Rate 118 H 125 H 116 H Respiratory 17 13 Rate Blood Pressure 117/81 147/57 126/72 O2 Sat by Pulse 93 92 Oximetry 08/16/17 08/16/17 08/16/17 23:01 23:40 23:43 Temperature 98.4 F Pulse Rate 112 H 115 H Respiratory 16 Rate Blood Pressure 124/74 150/62 O2 Sat by Pulse 92 92 Oximetry 08/17/17 08/17/17 08/17/17 00:01 01:00 02:00 Temperature Pulse Rate 113 H 102 H 130 H Respiratory 16 16 Rate Blood Pressure 120/72 137/101 162/62 O2 Sat by Pulse 92 91 Oximetry 08/17/17 08/17/17 08/17/17 02:01 03:01 04:01 Temperature Pulse Rate 108 H 106 H 109 H Respiratory 19 15 14 Rate Blood Pressure 133/80 149/65 149/65 O2 Sat by Pulse 97 92 91 Oximetry 08/17/17 08/17/17 08/17/17 04:30 05:01 05:54 Temperature 98.8 F Pulse Rate 111 H 114 H Respiratory 21 Rate Blood Pressure 143/69 153/67 O2 Sat by Pulse 94 90 Oximetry 08/17/17 08/17/17 06:01 09:00 Temperature Pulse Rate 112 H 107 H Respiratory 11 L Rate Blood Pressure 138/66 88/72 O2 Sat by Pulse 91 94 Oximetry - Lab 08/17/17 04:25 08/17/17 04:30 Most recent lab results Calcium 8.3 mg/dL (8.4-10.2) L 08/17/17 04:30
--- NOTE | 2017-08-17 10:00 | Progress Note ---
Assessment and Plan Continue current management per pulmonary critical care. Subjective Principal diagnosis: Acute Hypoxemic Respiratory Failure; Hemorrhagic Shock; WILLIAM on Dilaysis;PVD Interval history: Patient remains intubated. His renal function is improving somewhat. Hepatic function is improving somewhat. The patient is minimally able to follow commands. A bilateral lower extremities and feet remain warm. His incisions are intact. Patient has anasarca with third spacing. Currently undergoing dialysis. Objective - Constitutional Vitals: Vital Signs - 12hr 08/16/17 08/16/17 08/16/17 22:01 22:15 22:49 Temperature Pulse Rate 118 H 125 H 116 H Respiratory 17 13 Rate Blood Pressure 117/81 147/57 126/72 O2 Sat by Pulse 93 92 Oximetry 08/16/17 08/16/17 08/16/17 23:01 23:40 23:43 Temperature 98.4 F Pulse Rate 112 H 115 H Respiratory 16 Rate Blood Pressure 124/74 150/62 O2 Sat by Pulse 92 92 Oximetry 08/17/17 08/17/17 08/17/17 00:01 01:00 02:00 Temperature Pulse Rate 113 H 102 H 130 H Respiratory 16 16 Rate Blood Pressure 120/72 137/101 162/62 O2 Sat by Pulse 92 91 Oximetry 08/17/17 08/17/17 08/17/17 02:01 03:01 04:01 Temperature Pulse Rate 108 H 106 H 109 H Respiratory 19 15 14 Rate Blood Pressure 133/80 149/65 149/65 O2 Sat by Pulse 97 92 91 Oximetry 08/17/17 08/17/17 08/17/17 04:30 05:01 05:54 Temperature 98.8 F Pulse Rate 111 H 114 H Respiratory 21 Rate Blood Pressure 143/69 153/67 O2 Sat by Pulse 94 90 Oximetry 08/17/17 08/17/17 08/17/17 06:01 08:00 09:00 Temperature Pulse Rate 112 H 107 H Respiratory 11 L Rate Blood Pressure 138/66 88/72 O2 Sat by Pulse 91 96 94 Oximetry General appearance: Present: no acute distress, obese - EENT Eyes: EOM intact - Neck Neck: supple - Respiratory Respiratory effort: other (intubated) - Breasts Breasts: deferred Extremities: abnormal - Gastrointestinal General gastrointestinal: Present: distended Rectal Exam: deferred - Genitourinary Male genitourinary: scrotal edema - Labs CBC & Chem 7: 08/17/17 04:25 08/17/17 04:30 Labs: Abnormal lab results 08/16/17 08/16/17 08/16/17 Range/Units 11:54 13:00 18:32 WBC (4.5-11.0) K/mm3 RBC (3.65-5.03) M/mm3 Hgb (11.8-15.2) gm/dl Hct (35.5-45.6) % RDW (13.2-15.2) % Plt Count (140-440) K/mm3 POC ABG pO2 (80-105) BUN 47 H (9-20) mg/dL Creatinine 3.4 H (0.8-1.5) mg/dL Glucose 179 H (75-100) mg/dL POC Glucose 188 H 219 H (70-105) Calcium 8.2 L (8.4-10.2) mg/dL Total Bilirubin (0.1-1.2) mg/dL AST (5-40) units/L ALT (7-56) units/L Total Protein (6.3-8.2) g/dL Albumin (3.9-5) g/dL 08/16/17 08/17/17 08/17/17 Range/Units 23:33 04:25 04:30 WBC 15.2 H (4.5-11.0) K/mm3 RBC 2.60 L (3.65-5.03) M/mm3 Hgb 7.6 L (11.8-15.2) gm/dl Hct 23.8 L (35.5-45.6) % RDW 16.3 H (13.2-15.2) % Plt Count 92 L (140-440) K/mm3 POC ABG pO2 (80-105) BUN 63 H (9-20) mg/dL Creatinine 3.4 H (0.8-1.5) mg/dL Glucose 155 H (75-100) mg/dL POC Glucose 179 H (70-105) Calcium 8.3 L (8.4-10.2) mg/dL Total Bilirubin 1.40 H (0.1-1.2) mg/dL AST 99 H (5-40) units/L ALT 93 H (7-56) units/L Total Protein 5.6 L D (6.3-8.2) g/dL Albumin 3.1 L (3.9-5) g/dL 08/17/17 08/17/17 Range/Units 05:32 06:36 WBC (4.5-11.0) K/mm3 RBC (3.65-5.03) M/mm3 Hgb (11.8-15.2) gm/dl Hct (35.5-45.6) % RDW (13.2-15.2) % Plt Count (140-440) K/mm3 POC ABG pO2 57 L (80-105) BUN (9-20) mg/dL Creatinine (0.8-1.5) mg/dL Glucose (75-100) mg/dL POC Glucose 167 H (70-105) Calcium (8.4-10.2) mg/dL Total Bilirubin (0.1-1.2) mg/dL AST (5-40) units/L ALT (7-56) units/L Total Protein (6.3-8.2) g/dL Albumin (3.9-5) g/dL
--- NOTE | 2017-08-17 10:05 | Progress Note ---
Assessment and Plan - Patient Problems (1) Abdominal distention Current Visit: Yes Status: Acute Plan to address problem: Patient in critical condition. Distention is combination of baseline obesity, hemorrhage, and fluid resuscitation. At this point, the abdomen continues to remain soft, and is less distended than initial exam. Staff had difficulty getting bladder pressures due to equipment issues. Pulmonary pressures are stable and acceptable. Risk of compartment syndrome seems to be decreasing. As hemodynamics have been stable, would continue with trickle tube feeds (10cc/ hr) - do not advance at this time. May advance once bowel function resumes. Patient at high risk for poor outcome. Please call if there are any questions. Time=10min Subjective Date of service: 08/17/17 Patient Reports: Positive: other (staff reports no bowel activity. No residuals with tube feeds. Appears to be tolerating trickle feeds. ) Objective Vital Signs - 12hr 08/16/17 08/16/17 08/16/17 22:15 22:49 23:01 Temperature Pulse Rate 125 H 116 H 112 H Respiratory 13 16 Rate Blood Pressure 147/57 126/72 124/74 O2 Sat by Pulse 92 92 Oximetry 08/16/17 08/16/17 08/17/17 23:40 23:43 00:01 Temperature 98.4 F Pulse Rate 115 H 113 H Respiratory 16 Rate Blood Pressure 150/62 120/72 O2 Sat by Pulse 92 92 Oximetry 08/17/17 08/17/17 08/17/17 01:00 02:00 02:01 Temperature Pulse Rate 102 H 130 H 108 H Respiratory 16 19 Rate Blood Pressure 137/101 162/62 133/80 O2 Sat by Pulse 91 97 Oximetry 08/17/17 08/17/17 08/17/17 03:01 04:01 04:30 Temperature Pulse Rate 106 H 109 H 111 H Respiratory 15 14 Rate Blood Pressure 149/65 149/65 143/69 O2 Sat by Pulse 92 91 94 Oximetry 08/17/17 08/17/17 08/17/17 05:01 05:54 06:01 Temperature 98.8 F Pulse Rate 114 H 112 H Respiratory 21 11 L Rate Blood Pressure 153/67 138/66 O2 Sat by Pulse 90 91 Oximetry 08/17/17 08/17/17 08:00 09:00 Temperature Pulse Rate 107 H Respiratory Rate Blood Pressure 88/72 O2 Sat by Pulse 96 94 Oximetry - General physical appearance no distress, no pain, other (not following commands. Eyes are open) - Respiratory normal expansion, normal respiratory effort, other (stable pulmonary pressures. ) - Abdomen soft, not tender, bowel sounds hypoactive (starting to return), distended (less than before. ), not guarding, not rigid - Labs 08/17/17 04:25 08/17/17 04:30 Diabetes panel 08/16/17 08/17/17 Range/Units 13:00 04:30 Sodium 144 144 (137-145) mmol/L Potassium 4.6 4.7 (3.6-5.0) mmol/L Chloride 103.9 102.9 (98-107) mmol/L Carbon Dioxide 26 24 (22-30) mmol/L BUN 47 H 63 H (9-20) mg/dL Creatinine 3.4 H 3.4 H (0.8-1.5) mg/dL Glucose 179 H 155 H (75-100) mg/dL Calcium 8.2 L 8.3 L (8.4-10.2) mg/dL AST 99 H (5-40) units/L ALT 93 H (7-56) units/L Alkaline Phosphatase 86 (35-129) units/L Total Protein 5.6 L D (6.3-8.2) g/dL Albumin 3.1 L (3.9-5) g/dL Calcium panel 08/16/17 08/17/17 Range/Units 13:00 04:30 Calcium 8.2 L 8.3 L (8.4-10.2) mg/dL Albumin 3.1 L (3.9-5) g/dL Pituitary panel 08/16/17 08/17/17 Range/Units 13:00 04:30 Sodium 144 144 (137-145) mmol/L Potassium 4.6 4.7 (3.6-5.0) mmol/L Chloride 103.9 102.9 (98-107) mmol/L Carbon Dioxide 26 24 (22-30) mmol/L BUN 47 H 63 H (9-20) mg/dL Creatinine 3.4 H 3.4 H (0.8-1.5) mg/dL Glucose 179 H 155 H (75-100) mg/dL Calcium 8.2 L 8.3 L (8.4-10.2) mg/dL Adrenal panel 08/16/17 08/17/17 Range/Units 13:00 04:30 Sodium 144 144 (137-145) mmol/L Potassium 4.6 4.7 (3.6-5.0) mmol/L Chloride 103.9 102.9 (98-107) mmol/L Carbon Dioxide 26 24 (22-30) mmol/L BUN 47 H 63 H (9-20) mg/dL Creatinine 3.4 H 3.4 H (0.8-1.5) mg/dL Glucose 179 H 155 H (75-100) mg/dL Calcium 8.2 L 8.3 L (8.4-10.2) mg/dL Total Bilirubin 1.40 H (0.1-1.2) mg/dL AST 99 H (5-40) units/L ALT 93 H (7-56) units/L Alkaline Phosphatase 86 (35-129) units/L Total Protein 5.6 L D (6.3-8.2) g/dL Albumin 3.1 L (3.9-5) g/dL
[2017-08-17] MEDS: DOXYCYCLINE HYCLATE 100 MG in NACL 0.9% 250ML 250 ML IV SCH ×2 (10:22→22:25)
[2017-08-17] MEDS: Centrum Liq PO SCH (10:23)
[2017-08-17] MEDS: [UNRECOGNIZED DRUG - OTHER] OS SCH ×2 (10:23→22:26)
[2017-08-17] MEDS: FOLVITE PO SCH (10:24)
[2017-08-17] MEDS: COREG PO SCH ×2 (10:24→23:41)
[2017-08-17] MEDS: HALFPRIN EC PO SCH (10:25)
[2017-08-17] MEDS: VITAMIN B-1 PO SCH (10:25)
[2017-08-17] MEDS: HABITROL TD SCH (10:25)
[2017-08-17] MEDS: PAXIL PO SCH (10:25)
[2017-08-17] MEDS: PEPCID IV SCH (10:30)
[2017-08-17] MEDS: MORPHINE IV PRN ×2 (12:10→22:24)
--- NOTE | 2017-08-17 13:18 | Progress Note ---
Assessment and Plan Acute Hypoxic Respiratory failure Vasogenic Shock, Presumed Bleed WILLIAM Secondary to vasomotor nephropathy Severe Metabolic Acidosis Acute blood loss anemia PVD s/p right femoral end-arterectomy Acute encephalopathy s/p Massive blood transfusion Leukocytosis - continue supplemental oxygen and wean to keep sats > 90% - increased Peep to 8 - continue to address VAP bundle daily - continue empiric antibiotics and follow cultures / clinically for de- escalation - continue vasopresors and wean to keep MAP >/= 65 mmHg (he is on levophed and vasopressin) - continue HD/UF per nephrology prescription for volume and toxin clearance - massive transfusion protocol followed; received FFP's and platelets - hold all antocoagulation till H&H stabilizes - SCD's if OK with vascular team - continue agitation and analgesia management while avoiding benzodiazepines - Avoiding \ nephrotoxic agents; places indwelling barrientos catheter for strict I' s & O's in this critically ill patient with WILLIAM - continue enteral nutrition as tolerated - Azotemia per nephrology team otherwise - case discussed at length with surgery and in team rounds and care plan formulated - Prognosis remains guarded with high risk of decompensation from a hemodynamic standpoint and even . - continue other care per attending / other consultants .... re-evaluate in am & prn ...35' CCT Subjective Date of service: 08/17/17 Principal diagnosis: Acute Hypoxemic Respiratory Failure; Hemorrhagic Shock; WILLIAM on Dilaysis;PVD Interval history: Patient is seen today for: Acute Hypoxemic Respiratory Failure; Hemorrhagic Shock; WILLIAM on Dilaysis;PVD Seen and examined at bedside; 24 hour events reviewed; nursing and respiratory care staff consulted; remains on MVS; AMS is persistent; agitated during SAT's; remains on MVS; remains on vasopressors; HD/UF ongoing at time of my evaluation ; No emesis or overt aspiration; still agitated during SAT's and non purposeful ; making more urine encouragingly from a renal standpoint Objective Vital Signs - 12hr 08/17/17 08/17/17 08/17/17 02:00 02:01 03:01 Temperature Pulse Rate 130 H 108 H 106 H Respiratory 19 15 Rate Blood Pressure 162/62 133/80 149/65 O2 Sat by Pulse 97 92 Oximetry 08/17/17 08/17/17 08/17/17 04:01 04:30 05:01 Temperature Pulse Rate 109 H 111 H 114 H Respiratory 14 21 Rate Blood Pressure 149/65 143/69 153/67 O2 Sat by Pulse 91 94 90 Oximetry 08/17/17 08/17/17 08/17/17 05:54 06:01 07:01 Temperature 98.8 F Pulse Rate 112 H 102 H Respiratory 11 L 13 Rate Blood Pressure 138/66 138/66 O2 Sat by Pulse 91 94 Oximetry 08/17/17 08/17/17 08/17/17 08:00 08:01 09:00 Temperature 99 F Pulse Rate 104 H 107 H Respiratory 12 Rate Blood Pressure 145/90 88/72 O2 Sat by Pulse 96 93 94 Oximetry 08/17/17 08/17/17 08/17/17 09:01 10:01 10:24 Temperature Pulse Rate 118 H 105 H 120 H Respiratory 15 11 L Rate Blood Pressure 167/20 152/83 169/68 O2 Sat by Pulse 93 94 Oximetry 08/17/17 08/17/17 08/17/17 11:01 12:00 12:01 Temperature 98.6 F Pulse Rate 122 H 103 H Respiratory 13 20 Rate Blood Pressure 158/112 158/112 O2 Sat by Pulse 91 93 Oximetry 08/17/17 08/17/17 12:38 13:01 Temperature Pulse Rate 102 H 113 H Respiratory 20 Rate Blood Pressure 154/66 93/52 O2 Sat by Pulse 94 93 Oximetry Constitutional: appears uncomfortable, other (obese) Eyes: non-icteric ENT: oropharynx moist, oropharyngeal exudate pre, other (large neck circumference) Neck: supple, no lymphadenopathy, no JVD, other (RIJ CVL & VasCath) Effort: mildly labored Ascultation: Bilateral: diminished breath sounds, rales Percussion: Bilateral: not dull Cardiovascular: regular rate and rhythm, other (No R/M) Gastrointestinal: hypoactive bowel sounds, soft, non-tender, non-distended, other (no palpable HSM) Integumentary: other (post-op scars) Extremities: no cyanosis, pink and warm, no ischemia or petechiae, edema Neurologic: non-focal exam (grossly), unable to assess Psychiatric: other (unable to assess) CBC and BMP: 08/19/17 09:45 08/19/17 11:05 ABG, PT/INR, D-dimer: ABG POC ABG pH 7.360 (7.35-7.45) 08/17/17 05:32 POC ABG pCO2 44.5 (35-45) 08/17/17 05:32 POC ABG pO2 57 (80-105) L 08/17/17 05:32 POC ABG HCO3 25.2 08/17/17 05:32 POC ABG Total CO2 27 08/17/17 05:32 POC ABG O2 Sat 88 08/17/17 05:32 PT/INR, D-dimer PT 15.7 Sec. (12.2-14.9) H 08/14/17 05:00 INR 1.18 (0.87-1.13) H 08/14/17 05:00 D-Dimer 950.64 ng/mlDDU (0-234) H 08/14/17 05:00 Abnormal lab findings: Abnormal Labs 08/10/17 08/10/17 08/10/17 10:05 10:05 10:05 WBC RBC Hgb POC Hgb Hct POC Hct MCV 97 H MCH 33 H RDW Plt Count Lymph % (Auto) [place] % (Auto) Lymph # [place] # Seg Neutrophils % 72.9 H Seg Neutrophils # PT 11.6 L INR 0.81 L APTT Activated Clotting Time D-Dimer Heparin Anti-Xa Level POC ABG pH POC ABG pCO2 POC ABG pO2 Potassium Chloride Carbon Dioxide BUN Creatinine 0.7 L Glucose 196 H POC Glucose Lactic Acid Calcium Total Bilirubin AST ALT C-Reactive Protein Total Protein Albumin Ur Specific [place] Urine WBC (Auto) Crossmatch 08/11/17 08/11/17 08/11/17 06:50 07:03 09:50 WBC RBC Hgb POC Hgb Hct POC Hct MCV MCH RDW Plt Count Lymph % (Auto) [place] % (Auto) Lymph # [place] # Seg Neutrophils % Seg Neutrophils # PT INR APTT Activated Clotting Time D-Dimer Heparin Anti-Xa Level POC ABG pH 7.270 L POC ABG pCO2 49.1 H POC ABG pO2 117 H Potassium Chloride Carbon Dioxide BUN Creatinine Glucose POC Glucose 160 H Lactic Acid Calcium Total Bilirubin AST ALT C-Reactive Protein Total Protein Albumin Ur Specific [place] Urine WBC (Auto) Crossmatch See Detail 08/11/17 08/11/17 08/11/17 10:52 11:12 12:16 WBC RBC Hgb POC Hgb Hct POC Hct MCV MCH RDW Plt Count Lymph % (Auto) [place] % (Auto) Lymph # [place] # Seg Neutrophils % Seg Neutrophils # PT INR APTT Activated Clotting Time 191 H 153 H D-Dimer Heparin Anti-Xa Level POC ABG pH POC ABG pCO2 POC ABG pO2 Potassium Chloride Carbon Dioxide BUN Creatinine Glucose POC Glucose 176 H Lactic Acid Calcium Total Bilirubin AST ALT C-Reactive Protein Total Protein Albumin Ur Specific [place] Urine WBC (Auto) Crossmatch 08/11/17 08/11/17 08/11/17 12:27 13:07 14:39 WBC RBC Hgb POC Hgb 9.9 L 8.5 L Hct POC Hct 29 L 25 L MCV MCH RDW Plt Count Lymph % (Auto) [place] % (Auto) Lymph # [place] # Seg Neutrophils % Seg Neutrophils # PT INR APTT Activated Clotting Time 186 H D-Dimer Heparin Anti-Xa Level POC ABG pH POC ABG pCO2 POC ABG pO2 Potassium Chloride Carbon Dioxide BUN Creatinine Glucose POC Glucose 183 H 197 H Lactic Acid Calcium Total Bilirubin AST ALT C-Reactive Protein Total Protein Albumin Ur Specific [place] Urine WBC (Auto) Crossmatch 08/11/17 08/11/17 08/11/17 14:46 16:18 17:57 WBC 12.7 H RBC 3.00 L Hgb 9.5 L D POC Hgb Hct 28.3 L D POC Hct MCV MCH RDW 16.3 H Plt Count 105 L Lymph % (Auto) 6.7 L [place] % (Auto) Lymph # 0.8 L [place] # Seg Neutrophils % 86.3 H Seg Neutrophils # 10.9 H PT INR APTT Activated Clotting Time 164 H D-Dimer Heparin Anti-Xa Level POC ABG pH POC ABG pCO2 POC ABG pO2 Potassium Chloride Carbon Dioxide BUN Creatinine Glucose POC Glucose 192 H Lactic Acid Calcium Total Bilirubin AST ALT C-Reactive Protein Total Protein Albumin Ur Specific [place] Urine WBC (Auto) Crossmatch 08/11/17 08/11/17 08/11/17 17:57 20:00 20:00 WBC RBC Hgb 10.2 L POC Hgb Hct 31.1 L POC Hct MCV MCH RDW Plt Count 117 L Lymph % (Auto) [place] % (Auto) Lymph # [place] # Seg Neutrophils % Seg Neutrophils # PT 15.3 H INR 1.15 H APTT 97.7 H* Activated Clotting Time D-Dimer Heparin Anti-Xa Level POC ABG pH POC ABG pCO2 POC ABG pO2 Potassium Chloride 117.4 H Carbon Dioxide 18 L BUN Creatinine 0.7 L Glucose 143 H POC Glucose Lactic Acid Calcium 6.4 L D Total Bilirubin AST ALT C-Reactive Protein Total Protein Albumin Ur Specific [place] Urine WBC (Auto) Crossmatch 08/12/17 08/12/17 08/12/17 03:30 03:50 03:50 WBC RBC Hgb 9.2 L 9.1 L POC Hgb Hct 27.5 L 27.2 L POC Hct MCV MCH RDW Plt Count Lymph % (Auto) [place] % (Auto) Lymph # [place] # Seg Neutrophils % Seg Neutrophils # PT INR APTT Activated Clotting Time D-Dimer Heparin Anti-Xa Level POC ABG pH POC ABG pCO2 POC ABG pO2 Potassium Chloride 113.5 H Carbon Dioxide 13 L BUN Creatinine Glucose 243 H POC Glucose Lactic Acid Calcium 6.3 L Total Bilirubin AST ALT C-Reactive Protein Total Protein Albumin Ur Specific [place] Urine WBC (Auto) Crossmatch 08/12/17 08/12/17 08/12/17 07:36 08:48 16:16 WBC RBC Hgb POC Hgb Hct POC Hct MCV MCH RDW Plt Count Lymph % (Auto) [place] % (Auto) Lymph # [place] # Seg Neutrophils % Seg Neutrophils # PT INR APTT Activated Clotting Time D-Dimer Heparin Anti-Xa Level POC ABG pH 6.952 L 7.159 L POC ABG pCO2 49.1 H 47.8 H POC ABG pO2 76 L 106 H Potassium Chloride Carbon Dioxide BUN Creatinine Glucose POC Glucose 246 H Lactic Acid Calcium Total Bilirubin AST ALT C-Reactive Protein Total Protein Albumin Ur Specific [place] Urine WBC (Auto) Crossmatch 08/12/17 08/12/17 08/12/17 17:54 18:30 20:15 WBC 17.9 H RBC 3.29 L Hgb 10.0 L POC Hgb Hct 29.3 L POC Hct MCV MCH RDW 15.5 H Plt Count 76 L Lymph % (Auto) [place] % (Auto) Lymph # [place] # Seg Neutrophils % Seg Neutrophils # PT INR APTT Activated Clotting Time D-Dimer Heparin Anti-Xa Level POC ABG pH POC ABG pCO2 POC ABG pO2 Potassium Chloride Carbon Dioxide BUN Creatinine Glucose POC Glucose 240 H Lactic Acid Calcium Total Bilirubin AST ALT C-Reactive Protein Total Protein Albumin Ur Specific [place] 1.051 H Urine WBC (Auto) > 182.0 H Crossmatch 08/12/17 08/12/17 08/13/17 21:50 21:50 03:20 WBC RBC Hgb POC Hgb Hct POC Hct MCV MCH RDW Plt Count Lymph % (Auto) [place] % (Auto) Lymph # [place] # Seg Neutrophils % Seg Neutrophils # PT INR APTT Activated Clotting Time D-Dimer Heparin Anti-Xa Level < 0.10 L POC ABG pH POC ABG pCO2 POC ABG pO2 Potassium 5.4 H Chloride 110.8 H Carbon Dioxide 18 L BUN 30 H Creatinine 2.5 H D Glucose 216 H POC Glucose 235 H Lactic Acid Calcium 5.7 L* Total Bilirubin AST ALT C-Reactive Protein Total Protein Albumin Ur Specific [place] Urine WBC (Auto) Crossmatch 08/13/17 08/13/17 08/13/17 05:46 05:46 06:06 WBC 14.6 H RBC 2.49 L Hgb 7.6 L POC Hgb Hct 22.3 L D POC Hct MCV MCH RDW 15.7 H Plt Count 78 L Lymph % (Auto) 10.3 L [place] % (Auto) Lymph # [place] # Seg Neutrophils % 84.1 H Seg Neutrophils # 12.3 H PT INR APTT Activated Clotting Time D-Dimer Heparin Anti-Xa Level POC ABG pH 7.282 L POC ABG pCO2 POC ABG pO2 Potassium Chloride 107.5 H Carbon Dioxide 19 L BUN 35 H Creatinine 2.9 H Glucose 242 H POC Glucose Lactic Acid Calcium 6.3 L Total Bilirubin AST 1304 H ALT 533 H C-Reactive Protein Total Protein 4.4 L Albumin 2.8 L Ur Specific [place] Urine WBC (Auto) Crossmatch 08/13/17 08/13/17 08/13/17 07:10 07:10 09:00 WBC RBC Hgb POC Hgb Hct POC Hct MCV MCH RDW Plt Count Lymph % (Auto) [place] % (Auto) Lymph # [place] # Seg Neutrophils % Seg Neutrophils # PT 17.4 H INR 1.35 H APTT Activated Clotting Time D-Dimer 598.44 H Heparin Anti-Xa Level POC ABG pH POC ABG pCO2 POC ABG pO2 Potassium Chloride 107.2 H Carbon Dioxide 19 L BUN 35 H Creatinine 2.8 H Glucose 240 H POC Glucose Lactic Acid 3.10 H* Calcium 6.2 L Total Bilirubin AST ALT C-Reactive Protein Total Protein Albumin Ur Specific [place] Urine WBC (Auto) Crossmatch 08/13/17 08/13/17 08/13/17 17:55 18:31 21:19 WBC RBC Hgb POC Hgb Hct POC Hct MCV MCH RDW Plt Count Lymph % (Auto) [place] % (Auto) Lymph # [place] # Seg Neutrophils % Seg Neutrophils # PT INR APTT Activated Clotting Time D-Dimer Heparin Anti-Xa Level POC ABG pH 7.451 H POC ABG pCO2 33.0 L POC ABG pO2 53 L Potassium Chloride Carbon Dioxide BUN Creatinine Glucose POC Glucose 247 H Lactic Acid 2.20 H* Calcium Total Bilirubin AST ALT C-Reactive Protein Total Protein Albumin Ur Specific [place] Urine WBC (Auto) Crossmatch 08/13/17 08/14/17 08/14/17 23:34 00:10 05:00 WBC RBC Hgb POC Hgb Hct POC Hct MCV MCH RDW Plt Count Lymph % (Auto) [place] % (Auto) Lymph # [place] # Seg Neutrophils % Seg Neutrophils # PT 15.7 H INR 1.18 H APTT Activated Clotting Time D-Dimer 950.64 H Heparin Anti-Xa Level POC ABG pH POC ABG pCO2 POC ABG pO2 Potassium Chloride Carbon Dioxide BUN Creatinine Glucose POC Glucose 237 H Lactic Acid 2.70 H* Calcium Total Bilirubin AST ALT C-Reactive Protein Total Protein Albumin Ur Specific [place] Urine WBC (Auto) Crossmatch 08/14/17 08/14/17 08/14/17 05:00 05:11 10:26 WBC 14.2 H RBC 2.66 L Hgb 7.9 L POC Hgb Hct 23.2 L POC Hct MCV MCH RDW 16.0 H Plt Count 75 L Lymph % (Auto) [place] % (Auto) Lymph # [place] # Seg Neutrophils % Seg Neutrophils # PT INR APTT Activated Clotting Time D-Dimer Heparin Anti-Xa Level POC ABG pH POC ABG pCO2 POC ABG pO2 78 L Potassium Chloride Carbon Dioxide BUN Creatinine Glucose POC Glucose 227 H Lactic Acid Calcium Total Bilirubin AST ALT C-Reactive Protein Total Protein Albumin Ur Specific [place] Urine WBC (Auto) Crossmatch 08/14/17 08/14/17 08/14/17 11:28 11:28 12:06 WBC RBC Hgb POC Hgb Hct POC Hct MCV MCH RDW Plt Count Lymph % (Auto) [place] % (Auto) Lymph # [place] # Seg Neutrophils % Seg Neutrophils # PT INR APTT Activated Clotting Time D-Dimer Heparin Anti-Xa Level POC ABG pH POC ABG pCO2 POC ABG pO2 Potassium Chloride Carbon Dioxide BUN 43 H Creatinine 3.6 H Glucose 209 H POC Glucose 219 H Lactic Acid Calcium 7.6 L D Total Bilirubin AST ALT C-Reactive Protein 29.00 H Total Protein Albumin Ur Specific [place] Urine WBC (Auto) Crossmatch 08/14/17 08/14/17 08/14/17 17:57 19:54 23:23 WBC RBC Hgb POC Hgb Hct POC Hct MCV MCH RDW Plt Count Lymph % (Auto) [place] % (Auto) Lymph # [place] # Seg Neutrophils % Seg Neutrophils # PT INR APTT Activated Clotting Time D-Dimer Heparin Anti-Xa Level POC ABG pH POC ABG pCO2 46.5 H POC ABG pO2 64 L Potassium Chloride Carbon Dioxide BUN Creatinine Glucose POC Glucose 178 H 170 H Lactic Acid Calcium Total Bilirubin AST ALT C-Reactive Protein Total Protein Albumin Ur Specific [place] Urine WBC (Auto) Crossmatch 08/15/17 08/15/17 08/15/17 03:44 04:40 05:19 WBC 12.6 H RBC 2.49 L Hgb 7.4 L POC Hgb Hct 22.1 L POC Hct MCV MCH RDW 16.5 H Plt Count 64 L Lymph % (Auto) [place] % (Auto) Lymph # [place] # Seg Neutrophils % Seg Neutrophils # PT INR APTT Activated Clotting Time D-Dimer Heparin Anti-Xa Level POC ABG pH POC ABG pCO2 48.1 H POC ABG pO2 68 L Potassium Chloride Carbon Dioxide BUN Creatinine Glucose POC Glucose 154 H Lactic Acid Calcium Total Bilirubin AST ALT C-Reactive Protein Total Protein Albumin Ur Specific [place] Urine WBC (Auto) Crossmatch 08/15/17 08/15/17 08/15/17 12:20 13:22 18:05 WBC RBC Hgb POC Hgb Hct POC Hct MCV MCH RDW Plt Count Lymph % (Auto) [place] % (Auto) Lymph # [place] # Seg Neutrophils % Seg Neutrophils # PT INR APTT Activated Clotting Time D-Dimer Heparin Anti-Xa Level POC ABG pH POC ABG pCO2 POC ABG pO2 Potassium Chloride Carbon Dioxide BUN 45 H Creatinine 4.1 H Glucose 141 H POC Glucose 147 H 170 H Lactic Acid Calcium 7.8 L Total Bilirubin AST ALT C-Reactive Protein Total Protein Albumin Ur Specific [place] Urine WBC (Auto) Crossmatch 08/15/17 08/16/17 08/16/17 23:43 04:42 05:22 WBC 14.2 H RBC 2.54 L Hgb 7.5 L POC Hgb Hct 22.6 L POC Hct MCV MCH RDW 16.4 H Plt Count 73 L Lymph % (Auto) 6.6 L [place] % (Auto) 10.1 H Lymph # 0.9 L [place] # 1.4 H Seg Neutrophils % 83.1 H Seg Neutrophils # 11.8 H PT INR APTT Activated Clotting Time D-Dimer Heparin Anti-Xa Level POC ABG pH POC ABG pCO2 POC ABG pO2 71 L Potassium Chloride Carbon Dioxide BUN Creatinine Glucose POC Glucose 155 H Lactic Acid Calcium Total Bilirubin AST ALT C-Reactive Protein Total Protein Albumin Ur Specific [place] Urine WBC (Auto) Crossmatch 08/16/17 08/16/17 08/16/17 06:20 08:49 11:54 WBC RBC Hgb POC Hgb Hct POC Hct MCV MCH RDW Plt Count Lymph % (Auto) [place] % (Auto) Lymph # [place] # Seg Neutrophils % Seg Neutrophils # PT INR APTT Activated Clotting Time D-Dimer Heparin Anti-Xa Level POC ABG pH POC ABG pCO2 POC ABG pO2 Potassium Chloride Carbon Dioxide BUN Creatinine Glucose POC Glucose 165 H 191 H 188 H Lactic Acid Calcium Total Bilirubin AST ALT C-Reactive Protein Total Protein Albumin Ur Specific [place] Urine WBC (Auto) Crossmatch 08/16/17 08/16/17 08/16/17 13:00 18:32 23:33 WBC RBC Hgb POC Hgb Hct POC Hct MCV MCH RDW Plt Count Lymph % (Auto) [place] % (Auto) Lymph # [place] # Seg Neutrophils % Seg Neutrophils # PT INR APTT Activated Clotting Time D-Dimer Heparin Anti-Xa Level POC ABG pH POC ABG pCO2 POC ABG pO2 Potassium Chloride Carbon Dioxide BUN 47 H Creatinine 3.4 H Glucose 179 H POC Glucose 219 H 179 H Lactic Acid Calcium 8.2 L Total Bilirubin AST ALT C-Reactive Protein Total Protein Albumin Ur Specific [place] Urine WBC (Auto) Crossmatch 08/17/17 08/17/17 08/17/17 04:25 04:30 05:32 WBC 15.2 H RBC 2.60 L Hgb 7.6 L POC Hgb Hct 23.8 L POC Hct MCV MCH RDW 16.3 H Plt Count 92 L Lymph % (Auto) [place] % (Auto) Lymph # [place] # Seg Neutrophils % Seg Neutrophils # PT INR APTT Activated Clotting Time D-Dimer Heparin Anti-Xa Level POC ABG pH POC ABG pCO2 POC ABG pO2 57 L Potassium Chloride Carbon Dioxide BUN 63 H Creatinine 3.4 H Glucose 155 H POC Glucose Lactic Acid Calcium 8.3 L Total Bilirubin 1.40 H AST 99 H ALT 93 H C-Reactive Protein Total Protein 5.6 L D Albumin 3.1 L Ur Specific [place] Urine WBC (Auto) Crossmatch 08/17/17 06:36 WBC RBC Hgb POC Hgb Hct POC Hct MCV MCH RDW Plt Count Lymph % (Auto) [place] % (Auto) Lymph # [place] # Seg Neutrophils % Seg Neutrophils # PT INR APTT Activated Clotting Time D-Dimer Heparin Anti-Xa Level POC ABG pH POC ABG pCO2 POC ABG pO2 Potassium Chloride Carbon Dioxide BUN Creatinine Glucose POC Glucose 167 H Lactic Acid Calcium Total Bilirubin AST ALT C-Reactive Protein Total Protein Albumin Ur Specific [place] Urine WBC (Auto) Crossmatch Chest x-ray: image reviewed (persistent moderate volume overload picture with stable lines and tubes in good position) Allied health notes reviewed: nursing
[2017-08-17] MEDS: HEPARIN IV PRN (14:44)
[2017-08-17 16:19] LABS: Heparin-Induced Platelet Antib Negative (Negative); Unfractionated Heparin Negative (Negative)
--- NOTE | 2017-08-17 17:22 | Progress Note ---
Assessment and Plan Assessment and plan: Patient is 66 year old male with past medical history of hypertension, Type 2 DM , hyperlipidemia, CAD, PAD, who underwent elective vascular procedure for R [employer] , and is postop day 1 status post complex femoral endarterectomy and iliac artery stenting. Patient become hypotensive multiple fluid resuscitation and blood products. Also began to exhibit some altered mental status for which were consulted. On arrival the patient appears to be in moderate respiratory distress which saturation of 83 on 50% Ventimask. He is unable to provide much information. He does inform me that he drinks alcohol but not quantified. He denied any chest pain, nausea vomiting or diarrhea. He is currently on vasopressin. #1 acute hypoxic respiratory failure patient remains intubated unable to wean down secondary to altered mental status. Attempt to wean sedation patient developed agitation. Patient's cognition is not improved enough for extubation attempt at this particular time. Pulmonology following. #2 vasogenic shock -at present blood pressure is stable and actually high at this time. Continues on pressor support hemoglobin and hematocrit have remained stable. Patient platelets also had remained stable and now 74 #3 acute kidney injury secondary to ATN, shock oliguria. Patient now on hemodialysis today and will be done on a when necessary basis. Patient continues to make urine and in fact output has increased #4 metabolic acidosis resolving #6 thrombocytopenia continues to improve HIT panel pending Platelet count is stable has increased from 64-74 s. #7 PVD status post common femoral endarterectomy followed for vascular surgery #8 Acute Blood loss anemia- s/p massive blood transfuison #9 diabetes fairly well controlled with insulin sliding scale would not change at this particular time #10 hypertension we'll add low dose beta rohini. Prognosis guarded. No Family at bedside. The high probability of a clinically significant, sudden or life threatening deterioration of the [x] system(s) required my full and direct attention, intervention and personal management. The aggregate critical care time was [x] minutes. This time is in addition to time spent performing reported procedures but includes the following: [x] Data Review and interpretation [x] Patient assessment and monitoring of vital signs [x] Documentation [x] Medication orders and management - History Interval history: patient seen and examined, remains of full ventilatory support. Sedated. Hospitalist Physical - Physical exam Narrative exam: VITAL SIGNS: Reviewed. GENERAL: The patient appeared ill, moderate obese, on full ventilatory support and sedated, vital signs as documented. HEAD: No signs of head trauma. EYES: Pupils are equal.non reactive EARS: UNABLE to assess MOUTH: ETT in place NECK: No adenopathy, no JVD. CHEST: Chest with Dimished breath sounds bilaterally.but bilateral air movement noted CARDIAC: Regular rate and rhythm. S1 and S2, without murmurs, gallops, or rubs. VASCULAR: No Edema. Peripheral pulses normal and equal in all extremities. ABDOMEN: Soft, without detectable tenderness. Distended and tympanic. No rebound or guarding, and no masses palpated. Difficult to asertain Bowel sound, very hypoactive MUSCULOSKELETAL: Extremities without clubbing, cyanosis or edema. NEUROLOGIC EXAM: Encephalopathic/ Sedated PSYCHIATRIC: UNABLE TO EXAMINE SKIN: Ecchymosis of the right femoral area. - Constitutional Vitals: Temp Pulse Resp BP Pulse Ox 98.6 F 106 H 10 L 116/62 98 08/17/17 15:45 08/17/17 17:01 08/17/17 17:01 08/17/17 17:01 08/17/17 16:01 General appearance: Present: no acute distress, obese Results - Labs CBC & Chem 7: 08/17/17 04:25 08/17/17 04:30 Labs: Laboratory Last Values WBC 15.2 K/mm3 (4.5-11.0) H 08/17/17 04:25 RBC 2.60 M/mm3 (3.65-5.03) L 08/17/17 04:25 Hgb 7.6 gm/dl (11.8-15.2) L 08/17/17 04:25 POC Hgb 8.5 (12-17) L 08/11/17 14:39 Hct 23.8 % (35.5-45.6) L 08/17/17 04:25 POC Hct 25 (38-51) L 08/11/17 14:39 MCV 92 fl (84-94) 08/17/17 04:25 MCH 30 pg (28-32) 08/17/17 04:25 MCHC 32 % (32-34) 08/17/17 04:25 RDW 16.3 % (13.2-15.2) H 08/17/17 04:25 Plt Count 92 K/mm3 (140-440) L 08/17/17 04:25 Lymph % (Auto) 6.6 % (13.4-35.0) L 08/16/17 04:42 [place] % (Auto) 10.1 % (0.0-7.3) H 08/16/17 04:42 Eos % (Auto) 0.1 % (0.0-4.3) 08/16/17 04:42 Baso % (Auto) 0.1 % (0.0-1.8) 08/16/17 04:42 Lymph # 0.9 K/mm3 (1.2-5.4) L 08/16/17 04:42 [place] # 1.4 K/mm3 (0.0-0.8) H 08/16/17 04:42 Eos # 0.0 K/mm3 (0.0-0.4) 08/16/17 04:42 Baso # 0.0 K/mm3 (0.0-0.1) 08/16/17 04:42 Seg Neutrophils % 83.1 % (40.0-70.0) H 08/16/17 04:42 Seg Neutrophils # 11.8 K/mm3 (1.8-7.7) H 08/16/17 04:42 PT 15.7 Sec. (12.2-14.9) H 08/14/17 05:00 INR 1.18 (0.87-1.13) H 08/14/17 05:00 APTT 31.7 Sec. (24.2-36.6) 08/14/17 05:00 Activated Clotting Time 164 (74-137) H 08/11/17 14:46 Fibrinogen 424 mg/dl (211-480) 08/14/17 05:00 D-Dimer 950.64 ng/mlDDU (0-234) H 08/14/17 05:00 Heparin Anti-Xa Level < 0.10 U.I./ml (0.3-0.7) L 08/12/17 21:50 Heparin Anti-Xa, Unfract Negative (Negative) 08/13/17 05:46 POC ABG pH 7.360 (7.35-7.45) 08/17/17 05:32 POC ABG pCO2 44.5 (35-45) 08/17/17 05:32 POC ABG pO2 57 (80-105) L 08/17/17 05:32 POC ABG HCO3 25.2 08/17/17 05:32 POC ABG Total CO2 27 08/17/17 05:32 POC ABG O2 Sat 88 08/17/17 05:32 POC ABG Base Excess 0 08/17/17 05:32 POC Sodium 142 mmol/L (138-146) 08/11/17 14:39 POC Potassium 4.2 (3.5-4.9) 08/11/17 14:39 POC Chloride 109 (98-109) 08/11/17 14:39 FiO2 55 % 08/17/17 05:32 Sodium 144 mmol/L (137-145) 08/17/17 04:30 Potassium 4.7 mmol/L (3.6-5.0) 08/17/17 04:30 Chloride 102.9 mmol/L (98-107) 08/17/17 04:30 Carbon Dioxide 24 mmol/L (22-30) 08/17/17 04:30 Anion Gap 22 mmol/L 08/17/17 04:30 POC BUN 13 mg/dl (8-26) 08/11/17 14:39 BUN 63 mg/dL (9-20) H 08/17/17 04:30 Creatinine 3.4 mg/dL (0.8-1.5) H 08/17/17 04:30 Estimated GFR 18 ml/min 08/17/17 04:30 BUN/Creatinine Ratio 19 % 08/17/17 04:30 Glucose 155 mg/dL (75-100) H 08/17/17 04:30 POC Glucose 203 (70-105) H 08/17/17 12:37 Lactic Acid 1.70 mmol/L (0.7-2.0) 08/14/17 05:00 Calcium 8.3 mg/dL (8.4-10.2) L 08/17/17 04:30 Total Bilirubin 1.40 mg/dL (0.1-1.2) H 08/17/17 04:30 AST 99 units/L (5-40) H 08/17/17 04:30 ALT 93 units/L (7-56) H 08/17/17 04:30 Alkaline Phosphatase 86 units/L (35-129) 08/17/17 04:30 C-Reactive Protein 29.00 mg/dL (0.00-1.30) H 08/14/17 11:28 Total Protein 5.6 g/dL (6.3-8.2) L D 08/17/17 04:30 Albumin 3.1 g/dL (3.9-5) L 08/17/17 04:30 Albumin/Globulin Ratio 1.2 % 08/17/17 04:30 Urine Color Red (Yellow) 08/12/17 18:30 Urine Turbidity Hazy (Clear) 08/12/17 18:30 Urine pH 5.0 (5.0-7.0) 08/12/17 18:30 Ur Specific [place] 1.051 (1.003-1.030) H 08/12/17 18:30 Urine Protein 100 mg/dl mg/dL (Negative) 08/12/17 18:30 Urine Glucose (UA) 50 mg/dL (Negative) 08/12/17 18:30 Urine Ketones Neg mg/dL (Negative) 08/12/17 18:30 Urine Blood Lg (Negative) 08/12/17 18:30 Urine Nitrite Neg (Negative) 08/12/17 18:30 Urine Bilirubin Neg (Negative) 08/12/17 18:30 Urine Urobilinogen < 2.0 mg/dL (<2.0) 08/12/17 18:30 Ur Leukocyte Esterase Tr (Negative) 08/12/17 18:30 Urine WBC (Auto) > 182.0 /HPF (0.0-6.0) H 08/12/17 18:30 Urine RBC (Auto) > 182.0 /HPF (0.0-6.0) 08/12/17 18:30 Urine Mucus 1+ /HPF 08/12/17 18:30 Heparin-induced Plt Ab Negative (Negative) 08/13/17 05:46 UF Heparin High Dose 0 % Release 08/13/17 05:46 SORIN UFH Low Dose 0.1 0 % Release 08/13/17 05:46 SORIN UFH Low Dose 0.5 0 % Release 08/13/17 05:46 Hepatitis A IgM Ab Non-reactive (NonReactive) 08/13/17 15:35 Hep Bs Antigen Non-reactive (Negative) 08/13/17 15:35 Hep B Core IgM Ab Non-reactive (NonReactive) 04/19/18 15:35 Hepatitis C Antibody Non-reactive (NonReactive) 08/13/17 15:35 Miscellaneous Test Tnp 08/13/17 07:50 Blood Type O POSITIVE 08/11/17 06:50 Antibody Screen Negative 08/11/17 06:50 Crossmatch See Detail 08/11/17 06:50
[2017-08-17] MEDS: ATIVAN IV PRN (22:34)
--- NOTE | 2017-08-18 02:12 | XRay Report ---
FINAL REPORT EXAM: XR CHEST 1V AP HISTORY: follow up respiratory failure TECHNIQUE: A portable semi-erect view the chest was obtained and compared to the study of 08/17/2017. FINDINGS: There are sternotomy sutures. The heart is mildly enlarged. The lungs remain congested. There are stable bilateral effusions. The tip of the ET tube is 6 cm above the smita. There is an NG tube coursing into upper stomach. There are 2 right-sided central venous catheters with the tips in the distal superior vena cava. There is no evidence of pneumothorax. The skeletal structures reveal generalized osteoporosis. IMPRESSION: Stable pulmonary vascular junction with probable bilateral effusions. Satisfactory position of tubes and lines.
[2017-08-18] MEDS: MORPHINE IV PRN ×3 (04:13→18:08)
[2017-08-18] MEDS: ATIVAN IV PRN ×2 (04:19→12:36)
[2017-08-18 06:24] LABS: Hematocrit 21.8 % (35.5-45.6); Hemoglobin 7.3 gm/dl (11.8-15.2); Mean Corpuscular HGB Conc 34 % (32-34); Mean Corpuscular Hemoglobin 30 pg (28-32); Mean Corpuscular Volume 91 fl (84-94); Red Cell Distribution Width 16.3 % (13.2-15.2)
[2017-08-18 06:26] LABS: Platelet Count 95 K/mm3 (140-440)
[2017-08-18] MEDS: HumaLOG SUB-Q SCH ×5 (06:28→23:40)
[2017-08-18] MEDS: [UNRECOGNIZED DRUG - OTHER] OS SCH ×4 (08:00→22:09)
--- NOTE | 2017-08-18 08:43 | Progress Note ---
Assessment and Plan - Patient Problems (1) Acute renal failure due to tubular necrosis Current Visit: Yes Status: Acute Plan to address problem: Acute renal failure / acute tubular necrosis nonoliguric with improving urine output. Still with volume overload. Received dialysis yesterday with 3 L fluid removal. Urine output 1.5 L. We'll hold dialysis for now and monitor for further signs of renal recovery. (2) Hemorrhagic shock Current Visit: Yes Status: Acute Plan to address problem: Status post multiple transfusions. Appears to be resolving. Follow-up hemoglobin (3) Hyperkalemia Current Visit: Yes Status: Acute Plan to address problem: Potassium improved. Labs pending this morning Follow-up level (4) Hypocalcemia Current Visit: Yes Status: Acute Plan to address problem: Supplemental calcium as indicated. (5) Metabolic acidosis Current Visit: Yes Status: Acute Plan to address problem: Bicarbonate has improved. Follow bicarbonate level (6) Atherosclerosis of [place] arteries of extremity with intermittent claudication Current Visit: No Status: Acute Plan to address problem: Continue management per vascular surgeon (7) Anemia Current Visit: Yes Status: Acute Plan to address problem: Follow-up hemoglobin. Consider packed red blood cell transfusion Subjective Date of service: 08/18/17 Principal diagnosis: Acute Hypoxemic Respiratory Failure; Hemorrhagic Shock; WILLIAM on Dilaysis;PVD Interval history: Patient seen lying in bed in intensive care unit. He is intubated on the ventilator. He moves on stimulation. He is not following commands Objective - Exam Narrative Exam: Middle aged male lying in bed intubated on ventilator HEENT: NCAT, endotracheal tube intact, orogastric tube intact Neck: Supple, no venous distention CVS: S1S2 RRR with no murmur, rub or gallop Chest: Clear to auscultation Abdomen: Distended, soft to firm, nontender, no organomegaly, bowel sounds are present Extremities: 2+ pitting edema, no cyanosis. Skin warm and dry with areas of ecchymoses Neuro: Moves on stimulation, not following commands - Vital Signs Vital signs: Vital Signs - 12hr 08/17/17 08/17/17 08/17/17 21:01 22:00 22:01 Temperature Pulse Rate 101 H 105 H Pulse Rate [ 105 H From Monitor] Respiratory 19 19 13 Rate Blood Pressure 150/69 150/69 O2 Sat by Pulse 97 98 97 Oximetry 08/17/17 08/17/17 08/17/17 22:45 22:52 23:01 Temperature Pulse Rate 105 H 105 H 103 H Pulse Rate [ From Monitor] Respiratory 20 14 Rate Blood Pressure 150/69 116/56 150/69 O2 Sat by Pulse 97 98 98 Oximetry 08/17/17 08/17/17 08/17/17 23:15 23:21 23:31 Temperature 97.6 F Pulse Rate 105 H 115 H Pulse Rate [ From Monitor] Respiratory 16 15 Rate Blood Pressure 150/69 120/62 O2 Sat by Pulse 98 99 Oximetry 08/17/17 08/17/17 08/18/17 23:41 23:45 00:00 Temperature Pulse Rate 104 H 108 H Pulse Rate [ 107 H From Monitor] Respiratory 16 25 H Rate Blood Pressure 135/60 120/62 O2 Sat by Pulse 98 98 Oximetry 08/18/17 08/18/17 08/18/17 00:01 00:15 00:31 Temperature Pulse Rate 105 H 101 H 101 H Pulse Rate [ From Monitor] Respiratory 19 17 15 Rate Blood Pressure 120/62 120/62 120/62 O2 Sat by Pulse 99 99 99 Oximetry 08/18/17 08/18/17 08/18/17 00:45 01:01 01:15 Temperature Pulse Rate 101 H 105 H 104 H Pulse Rate [ From Monitor] Respiratory 15 17 15 Rate Blood Pressure 120/62 120/62 120/62 O2 Sat by Pulse 99 99 99 Oximetry 08/18/17 08/18/17 08/18/17 01:30 01:46 02:00 Temperature Pulse Rate 100 H 107 H 99 H Pulse Rate [ 100 H From Monitor] Respiratory 14 20 13 Rate Blood Pressure 106/61 106/61 O2 Sat by Pulse 99 99 99 Oximetry 08/18/17 08/18/17 08/18/17 02:16 02:30 02:46 Temperature Pulse Rate 95 H 107 H 99 H Pulse Rate [ From Monitor] Respiratory 16 18 13 Rate Blood Pressure 106/61 106/61 106/61 O2 Sat by Pulse 99 99 99 Oximetry 08/18/17 08/18/17 08/18/17 03:00 03:16 03:30 Temperature Pulse Rate 108 H 91 H Pulse Rate [ From Monitor] Respiratory 15 22 Rate Blood Pressure 106/61 106/61 106/61 O2 Sat by Pulse 99 98 99 Oximetry 08/18/17 08/18/17 08/18/17 03:46 04:00 04:16 Temperature 97.7 F Pulse Rate 103 H 104 H 100 H Pulse Rate [ 98 H From Monitor] Respiratory 21 25 H 16 Rate Blood Pressure 106/61 106/61 106/61 O2 Sat by Pulse 100 100 100 Oximetry 08/18/17 08/18/17 08/18/17 04:30 04:46 05:00 Temperature Pulse Rate 97 H 88 100 H Pulse Rate [ From Monitor] Respiratory 14 15 12 Rate Blood Pressure 101/62 101/62 101/62 O2 Sat by Pulse 97 97 96 Oximetry 08/18/17 08/18/17 08/18/17 05:16 05:30 05:46 Temperature Pulse Rate 100 H 98 H 98 H Pulse Rate [ From Monitor] Respiratory 18 15 14 Rate Blood Pressure 101/62 101/62 101/62 O2 Sat by Pulse 96 98 98 Oximetry 08/18/17 08/18/17 06:00 06:16 Temperature Pulse Rate 88 105 H Pulse Rate [ From Monitor] Respiratory 14 14 Rate Blood Pressure 101/62 101/62 O2 Sat by Pulse 98 98 Oximetry - Lab 08/18/17 04:30 08/17/17 04:30 Most recent lab results Calcium 8.3 mg/dL (8.4-10.2) L 08/17/17 04:30
[2017-08-18 09:00] LABS: Calcium 8.7 mg/dL (8.4-10.2)
--- NOTE | 2017-08-18 09:08 | Progress Note ---
Assessment and Plan POD 7/6 intubated, not awake, off fentanyl now. Started Seroquel, but high dose - decrease dose BP stable, on his hypertensive meds urine output improving, HD as per renal. thrombocytopenia, most likely consumptive, improving now, awaiting HIT panel, will f/u hemonc abdomen is not distended, BS+, increase feeds to goal, start stool softeners WBC normalized, blood cultures negative - d/c antibiotics vent management as per ICU team smoker on nicotine patch - I would discontinue, I doubt he is craving cigarettes now Subjective Date of service: 08/18/17 Principal diagnosis: Acute Hypoxemic Respiratory Failure; Hemorrhagic Shock; WILLIAM on Dilaysis;PVD Interval history: patient remains intubated for now, mental status is issue now. Fentanyl drip discontinued. On prn meds Objective - Exam Narrative Exam: feet warm with good perfusion. Groin incisions healing well abdomen soft, not distended, BS+ tolerating trickle feeds decreased edema after HD yesterday - Constitutional Vitals: Vital Signs - 12hr 08/17/17 08/17/17 08/17/17 21:01 22:00 22:01 Temperature Pulse Rate 101 H 105 H Pulse Rate [ 105 H From Monitor] Respiratory 19 19 13 Rate Blood Pressure 150/69 150/69 O2 Sat by Pulse 97 98 97 Oximetry 08/17/17 08/17/17 08/17/17 22:45 22:52 23:01 Temperature Pulse Rate 105 H 105 H 103 H Pulse Rate [ From Monitor] Respiratory 20 14 Rate Blood Pressure 150/69 116/56 150/69 O2 Sat by Pulse 97 98 98 Oximetry 08/17/17 08/17/17 08/17/17 23:15 23:21 23:31 Temperature 97.6 F Pulse Rate 105 H 115 H Pulse Rate [ From Monitor] Respiratory 16 15 Rate Blood Pressure 150/69 120/62 O2 Sat by Pulse 98 99 Oximetry 08/17/17 08/17/17 08/18/17 23:41 23:45 00:00 Temperature Pulse Rate 104 H 108 H Pulse Rate [ 107 H From Monitor] Respiratory 16 25 H Rate Blood Pressure 135/60 120/62 O2 Sat by Pulse 98 98 Oximetry 08/18/17 08/18/17 08/18/17 00:01 00:15 00:31 Temperature Pulse Rate 105 H 101 H 101 H Pulse Rate [ From Monitor] Respiratory 19 17 15 Rate Blood Pressure 120/62 120/62 120/62 O2 Sat by Pulse 99 99 99 Oximetry 08/18/17 08/18/17 08/18/17 00:45 01:01 01:15 Temperature Pulse Rate 101 H 105 H 104 H Pulse Rate [ From Monitor] Respiratory 15 17 15 Rate Blood Pressure 120/62 120/62 120/62 O2 Sat by Pulse 99 99 99 Oximetry 08/18/17 08/18/17 08/18/17 01:30 01:46 02:00 Temperature Pulse Rate 100 H 107 H 99 H Pulse Rate [ 100 H From Monitor] Respiratory 14 20 13 Rate Blood Pressure 106/61 106/61 O2 Sat by Pulse 99 99 99 Oximetry 08/18/17 08/18/17 08/18/17 02:16 02:30 02:46 Temperature Pulse Rate 95 H 107 H 99 H Pulse Rate [ From Monitor] Respiratory 16 18 13 Rate Blood Pressure 106/61 106/61 106/61 O2 Sat by Pulse 99 99 99 Oximetry 08/18/17 08/18/17 08/18/17 03:00 03:16 03:30 Temperature Pulse Rate 108 H 91 H Pulse Rate [ From Monitor] Respiratory 15 22 Rate Blood Pressure 106/61 106/61 106/61 O2 Sat by Pulse 99 98 99 Oximetry 08/18/17 08/18/17 08/18/17 03:46 04:00 04:16 Temperature 97.7 F Pulse Rate 103 H 104 H 100 H Pulse Rate [ 98 H From Monitor] Respiratory 21 25 H 16 Rate Blood Pressure 106/61 106/61 106/61 O2 Sat by Pulse 100 100 100 Oximetry 08/18/17 08/18/17 08/18/17 04:30 04:46 05:00 Temperature Pulse Rate 97 H 88 100 H Pulse Rate [ From Monitor] Respiratory 14 15 12 Rate Blood Pressure 101/62 101/62 101/62 O2 Sat by Pulse 97 97 96 Oximetry 08/18/17 08/18/17 08/18/17 05:16 05:30 05:46 Temperature Pulse Rate 100 H 98 H 98 H Pulse Rate [ From Monitor] Respiratory 18 15 14 Rate Blood Pressure 101/62 101/62 101/62 O2 Sat by Pulse 96 98 98 Oximetry 08/18/17 08/18/17 06:00 06:16 Temperature Pulse Rate 88 105 H Pulse Rate [ From Monitor] Respiratory 14 14 Rate Blood Pressure 101/62 101/62 O2 Sat by Pulse 98 98 Oximetry - Labs CBC & Chem 7: 08/18/17 04:30 08/17/17 04:30 Labs: Abnormal lab results 08/17/17 08/17/17 08/17/17 Range/Units 12:37 17:44 23:55 RBC (3.65-5.03) M/mm3 Hgb (11.8-15.2) gm/dl Hct (35.5-45.6) % RDW (13.2-15.2) % Plt Count (140-440) K/mm3 POC Glucose 203 H 158 H 146 H (70-105) 08/18/17 08/18/17 Range/Units 04:30 05:57 RBC 2.40 L (3.65-5.03) M/mm3 Hgb 7.3 L (11.8-15.2) gm/dl Hct 21.8 L (35.5-45.6) % RDW 16.3 H (13.2-15.2) % Plt Count 95 L (140-440) K/mm3 POC Glucose 179 H (70-105)
--- NOTE | 2017-08-18 09:41 | Hem/Onc Progress Note ---
Assessment and Plan Heparin-induced thrombocytopenia assay is negative. Platelets are stable. Hemoglobin is stable. White count slightly high. Continue to monitor. Subjective Date of service: 08/18/17 Interval history: Patient off the pressors. Not responding to verbal commands. Does respond to painful stimuli according to the notes. No active bleeding. Objective - Exam Narrative Exam: On ventilator - Constitutional Vitals: Last Vital Signs Temp 97.7 F 08/18/17 04:00 Pulse 105 H 08/18/17 08:57 Resp 14 08/18/17 06:16 BP 155/60 08/18/17 08:57 Pulse Ox 95 08/18/17 08:57 Extremities: abnormal - Gastrointestinal General gastrointestinal: Present: soft (less distended) - Labs Lab Results: Laboratory Results - last 24 hr 08/13/17 08/13/17 08/17/17 05:46 07:50 12:37 WBC RBC Hgb Hct MCV MCH MCHC RDW Plt Count Heparin Anti-Xa, Unfract Negative POC ABG pH POC ABG pCO2 POC ABG pO2 POC ABG HCO3 POC ABG Total CO2 POC ABG O2 Sat POC ABG Base Excess FiO2 Sodium Potassium Chloride Carbon Dioxide Anion Gap BUN Creatinine Estimated GFR BUN/Creatinine Ratio Glucose POC Glucose 203 H Calcium Heparin-induced Plt Ab Negative UF Heparin High Dose 0 SORIN UFH Low Dose 0.1 0 SORIN UFH Low Dose 0.5 0 Miscellaneous Test Tnp 08/17/17 08/17/17 08/18/17 17:44 23:55 04:26 WBC RBC Hgb Hct MCV MCH MCHC RDW Plt Count Heparin Anti-Xa, Unfract POC ABG pH 7.432 POC ABG pCO2 39.2 POC ABG pO2 97 POC ABG HCO3 26.2 POC ABG Total CO2 27 POC ABG O2 Sat 98 POC ABG Base Excess 2 FiO2 65 Sodium Potassium Chloride Carbon Dioxide Anion Gap BUN Creatinine Estimated GFR BUN/Creatinine Ratio Glucose POC Glucose 158 H 146 H Calcium Heparin-induced Plt Ab UF Heparin High Dose SORIN UFH Low Dose 0.1 SORIN UFH Low Dose 0.5 Miscellaneous Test 08/18/17 08/18/17 08/18/17 04:30 05:57 08:20 WBC 10.5 RBC 2.40 L Hgb 7.3 L Hct 21.8 L MCV 91 MCH 30 MCHC 34 RDW 16.3 H Plt Count 95 L Heparin Anti-Xa, Unfract POC ABG pH POC ABG pCO2 POC ABG pO2 POC ABG HCO3 POC ABG Total CO2 POC ABG O2 Sat POC ABG Base Excess FiO2 Sodium 146 H Potassium 3.8 Chloride 108.4 H Carbon Dioxide 27 Anion Gap 14 BUN 62 H Creatinine 2.4 H Estimated GFR 27 BUN/Creatinine Ratio 26 Glucose 125 H POC Glucose 179 H Calcium 8.7 Heparin-induced Plt Ab UF Heparin High Dose SORIN UFH Low Dose 0.1 SORIN UFH Low Dose 0.5 Miscellaneous Test
--- NOTE | 2017-08-18 09:51 | Progress Note ---
Assessment and Plan - Patient Problems (1) Abdominal distention Current Visit: Yes Status: Acute Plan to address problem: Patient in guarded condition. Distention is combination of baseline obesity, hemorrhage, and fluid resuscitation. Much improved now. Abdomen is probably back to baseline. Pulmonary pressure are now lower than initial evaluation. Risk of compartment syndrome has decreased significantly. As hemodynamics have been stable, would continue with trickle tube feeds (10cc/ hr) - do not advance at this time. May advance once bowel function resumes. Patient at high risk for poor outcome. Please call if there are any questions. Will sign-off as there does not appear to a concern for abdominal compartment syndrome anymore. Time=10min Subjective Date of service: 08/18/17 Patient Reports: Positive: other (staff reports no tube feed intolerance. no bowel activity yet) Objective Vital Signs - 12hr 08/17/17 08/17/17 08/17/17 22:00 22:01 22:45 Temperature Pulse Rate 105 H 105 H Pulse Rate [ 105 H From Monitor] Respiratory 19 13 20 Rate Blood Pressure 150/69 150/69 O2 Sat by Pulse 98 97 97 Oximetry 08/17/17 08/17/17 08/17/17 22:52 23:01 23:15 Temperature Pulse Rate 105 H 103 H 105 H Pulse Rate [ From Monitor] Respiratory 14 16 Rate Blood Pressure 116/56 150/69 150/69 O2 Sat by Pulse 98 98 98 Oximetry 08/17/17 08/17/17 08/17/17 23:21 23:31 23:41 Temperature 97.6 F Pulse Rate 115 H 104 H Pulse Rate [ From Monitor] Respiratory 15 Rate Blood Pressure 120/62 135/60 O2 Sat by Pulse 99 Oximetry 08/17/17 08/18/17 08/18/17 23:45 00:00 00:01 Temperature Pulse Rate 108 H 105 H Pulse Rate [ 107 H From Monitor] Respiratory 16 25 H 19 Rate Blood Pressure 120/62 120/62 O2 Sat by Pulse 98 98 99 Oximetry 08/18/17 08/18/17 08/18/17 00:15 00:31 00:45 Temperature Pulse Rate 101 H 101 H 101 H Pulse Rate [ From Monitor] Respiratory 17 15 15 Rate Blood Pressure 120/62 120/62 120/62 O2 Sat by Pulse 99 99 99 Oximetry 08/18/17 08/18/17 08/18/17 01:01 01:15 01:30 Temperature Pulse Rate 105 H 104 H 100 H Pulse Rate [ From Monitor] Respiratory 17 15 14 Rate Blood Pressure 120/62 120/62 O2 Sat by Pulse 99 99 99 Oximetry 08/18/17 08/18/17 08/18/17 01:46 02:00 02:16 Temperature Pulse Rate 107 H 99 H 95 H Pulse Rate [ 100 H From Monitor] Respiratory 20 13 16 Rate Blood Pressure 106/61 106/61 106/61 O2 Sat by Pulse 99 99 99 Oximetry 08/18/17 08/18/17 08/18/17 02:30 02:46 03:00 Temperature Pulse Rate 107 H 99 H Pulse Rate [ From Monitor] Respiratory 18 13 Rate Blood Pressure 106/61 106/61 106/61 O2 Sat by Pulse 99 99 99 Oximetry 08/18/17 08/18/17 08/18/17 03:16 03:30 03:46 Temperature Pulse Rate 108 H 91 H 103 H Pulse Rate [ From Monitor] Respiratory 15 22 21 Rate Blood Pressure 106/61 106/61 106/61 O2 Sat by Pulse 98 99 100 Oximetry 08/18/17 08/18/17 08/18/17 04:00 04:16 04:30 Temperature 97.7 F Pulse Rate 104 H 100 H 97 H Pulse Rate [ 98 H From Monitor] Respiratory 25 H 16 14 Rate Blood Pressure 106/61 106/61 101/62 O2 Sat by Pulse 100 100 97 Oximetry 08/18/17 08/18/17 08/18/17 04:46 05:00 05:16 Temperature Pulse Rate 88 100 H 100 H Pulse Rate [ From Monitor] Respiratory 15 12 18 Rate Blood Pressure 101/62 101/62 101/62 O2 Sat by Pulse 97 96 96 Oximetry 08/18/17 08/18/17 08/18/17 05:30 05:46 06:00 Temperature Pulse Rate 98 H 98 H 88 Pulse Rate [ From Monitor] Respiratory 15 14 14 Rate Blood Pressure 101/62 101/62 101/62 O2 Sat by Pulse 98 98 98 Oximetry 08/18/17 08/18/17 08/18/17 06:16 08:00 08:57 Temperature Pulse Rate 105 H 105 H Pulse Rate [ From Monitor] Respiratory 14 Rate Blood Pressure 101/62 155/60 O2 Sat by Pulse 98 98 95 Oximetry - General physical appearance other (not following commands) - Respiratory normal expansion, normal respiratory effort - Abdomen soft, not tender, bowel sounds hypoactive, not distended (much softer. probably back to baseline according to ), not guarding, not rigid - Labs 08/18/17 04:30 08/18/17 08:20 Diabetes panel 08/18/17 Range/Units 08:20 Sodium 146 H (137-145) mmol/L Potassium 3.8 (3.6-5.0) mmol/L Chloride 108.4 H (98-107) mmol/L Carbon Dioxide 27 (22-30) mmol/L BUN 62 H (9-20) mg/dL Creatinine 2.4 H (0.8-1.5) mg/dL Glucose 125 H (75-100) mg/dL Calcium 8.7 (8.4-10.2) mg/dL Calcium panel 08/18/17 Range/Units 08:20 Calcium 8.7 (8.4-10.2) mg/dL Pituitary panel 08/18/17 Range/Units 08:20 Sodium 146 H (137-145) mmol/L Potassium 3.8 (3.6-5.0) mmol/L Chloride 108.4 H (98-107) mmol/L Carbon Dioxide 27 (22-30) mmol/L BUN 62 H (9-20) mg/dL Creatinine 2.4 H (0.8-1.5) mg/dL Glucose 125 H (75-100) mg/dL Calcium 8.7 (8.4-10.2) mg/dL Adrenal panel 08/18/17 Range/Units 08:20 Sodium 146 H (137-145) mmol/L Potassium 3.8 (3.6-5.0) mmol/L Chloride 108.4 H (98-107) mmol/L Carbon Dioxide 27 (22-30) mmol/L BUN 62 H (9-20) mg/dL Creatinine 2.4 H (0.8-1.5) mg/dL Glucose 125 H (75-100) mg/dL Calcium 8.7 (8.4-10.2) mg/dL
[2017-08-18] MEDS: VITAMIN B-1 PO SCH (10:25)
[2017-08-18] MEDS: Centrum Liq PO SCH (10:26)
[2017-08-18] MEDS: PAXIL PO SCH (10:26)
[2017-08-18] MEDS: FOLVITE PO SCH (10:26)
[2017-08-18] MEDS: PEPCID IV SCH (10:26)
[2017-08-18] MEDS: DOXYCYCLINE HYCLATE 100 MG in NACL 0.9% 250ML 250 ML IV SCH ×2 (10:33→22:10)
[2017-08-18] MEDS: HALFPRIN EC PO SCH (10:38)
[2017-08-18] MEDS: COREG PO SCH ×2 (10:39→22:09)
[2017-08-18] MEDS: LEVAQUIN 500MG/100ML 500 MG/100 ML BAG IV SCH (10:41)
--- NOTE | 2017-08-18 11:20 | Progress Note ---
Assessment and Plan Continue supportive care. Off vasopressors over the weekend. HIT assay is negative. Slow progress. Wean mechanical ventilation per pulmonary recommendations. If pt remains intubated, then he may ultimately require trach. - Patient Problems (1) Atherosclerosis of [place] arteries of extremity with intermittent claudication Current Visit: No Status: Acute (2) Abdominal distention Current Visit: Yes Status: Acute (3) Acute renal failure due to tubular necrosis Current Visit: Yes Status: Acute (4) Hemorrhagic shock Current Visit: Yes Status: Acute (5) Metabolic acidosis Current Visit: Yes Status: Acute Subjective Date of service: 08/18/17 Principal diagnosis: Acute Hypoxemic Respiratory Failure; Hemorrhagic Shock; WILLIAM on Dilaysis;PVD Interval history: Pt somnolent on mechanical ventilation. Objective - Constitutional Vitals: Vital Signs - 12hr 08/17/17 08/17/17 08/17/17 23:21 23:31 23:41 Temperature 97.6 F Pulse Rate 115 H 104 H Pulse Rate [ From Monitor] Respiratory 15 Rate Blood Pressure 120/62 135/60 O2 Sat by Pulse 99 Oximetry 08/17/17 08/18/17 08/18/17 23:45 00:00 00:01 Temperature Pulse Rate 108 H 105 H Pulse Rate [ 107 H From Monitor] Respiratory 16 25 H 19 Rate Blood Pressure 120/62 120/62 O2 Sat by Pulse 98 98 99 Oximetry 08/18/17 08/18/17 08/18/17 00:15 00:31 00:45 Temperature Pulse Rate 101 H 101 H 101 H Pulse Rate [ From Monitor] Respiratory 17 15 15 Rate Blood Pressure 120/62 120/62 120/62 O2 Sat by Pulse 99 99 99 Oximetry 08/18/17 08/18/17 08/18/17 01:01 01:15 01:30 Temperature Pulse Rate 105 H 104 H 100 H Pulse Rate [ From Monitor] Respiratory 17 15 14 Rate Blood Pressure 120/62 120/62 O2 Sat by Pulse 99 99 99 Oximetry 08/18/17 08/18/17 08/18/17 01:46 02:00 02:16 Temperature Pulse Rate 107 H 99 H 95 H Pulse Rate [ 100 H From Monitor] Respiratory 20 13 16 Rate Blood Pressure 106/61 106/61 106/61 O2 Sat by Pulse 99 99 99 Oximetry 04/24/18 04/24/18 04/24/18 02:30 02:46 03:00 Temperature Pulse Rate 107 H 99 H Pulse Rate [ From Monitor] Respiratory 18 13 Rate Blood Pressure 106/61 106/61 106/61 O2 Sat by Pulse 99 99 99 Oximetry 08/18/17 08/18/17 08/18/17 03:16 03:30 03:46 Temperature Pulse Rate 108 H 91 H 103 H Pulse Rate [ From Monitor] Respiratory 15 22 21 Rate Blood Pressure 106/61 106/61 106/61 O2 Sat by Pulse 98 99 100 Oximetry 08/18/17 08/18/17 08/18/17 04:00 04:16 04:30 Temperature 97.7 F Pulse Rate 104 H 100 H 97 H Pulse Rate [ 98 H From Monitor] Respiratory 25 H 16 14 Rate Blood Pressure 106/61 106/61 101/62 O2 Sat by Pulse 100 100 97 Oximetry 08/18/17 08/18/17 08/18/17 04:46 05:00 05:16 Temperature Pulse Rate 88 100 H 100 H Pulse Rate [ From Monitor] Respiratory 15 12 18 Rate Blood Pressure 101/62 101/62 101/62 O2 Sat by Pulse 97 96 96 Oximetry 08/18/17 08/18/17 08/18/17 05:30 05:46 06:00 Temperature Pulse Rate 98 H 98 H 88 Pulse Rate [ From Monitor] Respiratory 15 14 14 Rate Blood Pressure 101/62 101/62 101/62 O2 Sat by Pulse 98 98 98 Oximetry 08/18/17 08/18/17 08/18/17 06:16 08:00 08:57 Temperature Pulse Rate 105 H 105 H Pulse Rate [ From Monitor] Respiratory 14 Rate Blood Pressure 101/62 155/60 O2 Sat by Pulse 98 98 95 Oximetry 08/18/17 10:39 Temperature Pulse Rate 103 H Pulse Rate [ From Monitor] Respiratory Rate Blood Pressure 178/63 O2 Sat by Pulse Oximetry General appearance: Present: no acute distress - EENT ENT: other (ETT in place) - Respiratory Respiratory effort: other (on vent) - Cardiovascular Heart rate: 101 (mild tachycardia) Extremities: abnormal (bilateral lower ext hot to the toes. No skin lesions appreciated at present.) Extremity abnormal: other (Right groin incision intact. Left groin puncture site intact. No erythema or drainage. Mod to heavy ecchymosis bilat groin.) - Gastrointestinal General gastrointestinal: Present: distended (but softer) - Psychiatric Psychiatric: no appropriate mood/affect, no intact judgment & insight, no cooperative - Labs CBC & Chem 7: 08/18/17 04:30 08/18/17 08:20 Labs: Abnormal lab results 08/17/17 08/17/17 08/17/17 Range/Units 12:37 17:44 23:55 RBC (3.65-5.03) M/mm3 Hgb (11.8-15.2) gm/dl Hct (35.5-45.6) % RDW (13.2-15.2) % Plt Count (140-440) K/mm3 Sodium (137-145) mmol/L Chloride (98-107) mmol/L BUN (9-20) mg/dL Creatinine (0.8-1.5) mg/dL Glucose (75-100) mg/dL POC Glucose 203 H 158 H 146 H (70-105) C-Reactive Protein (0.00-1.30) mg/dL 08/18/17 08/18/17 08/18/17 Range/Units 04:30 05:57 08:20 RBC 2.40 L (3.65-5.03) M/mm3 Hgb 7.3 L (11.8-15.2) gm/dl Hct 21.8 L (35.5-45.6) % RDW 16.3 H (13.2-15.2) % Plt Count 95 L (140-440) K/mm3 Sodium (137-145) mmol/L Chloride (98-107) mmol/L BUN (9-20) mg/dL Creatinine (0.8-1.5) mg/dL Glucose (75-100) mg/dL POC Glucose 179 H (70-105) C-Reactive Protein 13.90 H (0.00-1.30) mg/dL 08/18/17 Range/Units 08:20 RBC (3.65-5.03) M/mm3 Hgb (11.8-15.2) gm/dl Hct (35.5-45.6) % RDW (13.2-15.2) % Plt Count (140-440) K/mm3 Sodium 146 H (137-145) mmol/L Chloride 108.4 H (98-107) mmol/L BUN 62 H (9-20) mg/dL Creatinine 2.4 H (0.8-1.5) mg/dL Glucose 125 H (75-100) mg/dL POC Glucose (70-105) C-Reactive Protein (0.00-1.30) mg/dL
--- NOTE | 2017-08-18 16:53 | Progress Note ---
Assessment and Plan Assessment and plan: Patient is 66 year old male with past medical history of hypertension, Type 2 DM , hyperlipidemia, CAD, PAD, who underwent elective vascular procedure for R MOBILE TESTER , and is postop day 1 status post complex femoral endarterectomy and iliac artery stenting. Patient become hypotensive multiple fluid resuscitation and blood products. Also began to exhibit some altered mental status for which were consulted. On arrival the patient appears to be in moderate respiratory distress which saturation of 83 on 50% Ventimask. He is unable to provide much information. He does inform me that he drinks alcohol but not quantified. He denied any chest pain, nausea vomiting or diarrhea. He is currently on vasopressin. #1 acute hypoxic respiratory failure patient remains intubated unable to wean down secondary to altered mental status. Attempt to wean sedation patient developed agitation. Patient's cognition is not improved enough for extubation attempt at this particular time. Pulmonology following. #2 vasogenic shock -at present blood pressure is stable and actually high at this time. Continues on pressor support hemoglobin and hematocrit have remained stable. Patient platelets also had remained stable and now 74 #3 acute kidney injury secondary to ATN, shock oliguria. Patient now on hemodialysis today and will be done on a when necessary basis. Patient continues to make urine and in fact output has increased #4 metabolic acidosis resolving #6 thrombocytopenia continues to improve HIT panel pending Platelet count is stable has increased from 64-74 s. #7 PVD status post common femoral endarterectomy followed for vascular surgery #8 Acute Blood loss anemia- s/p massive blood transfuison #9 diabetes fairly well controlled with insulin sliding scale would not change at this particular time #10 hypertension we'll add low dose beta rohini. #11. Acute toxic metabolic Encephalopathy: off sedation and not following commands, will check CT Brain. If no improvement , may benefity from Neurology evalaution. Prognosis guarded. No Family at bedside. The high probability of a clinically significant, sudden or life threatening deterioration of the [x] system(s) required my full and direct attention, intervention and personal management. The aggregate critical care time was [x] minutes. This time is in addition to time spent performing reported procedures but includes the following: [x] Data Review and interpretation [x] Patient assessment and monitoring of vital signs [x] Documentation [x] Medication orders and management - History Interval history: patient seen and examined, remains of full ventilatory support. Awake but not following commands. Hospitalist Physical - Physical exam Narrative exam: VITAL SIGNS: Reviewed. GENERAL: The patient appeared ill, moderate obese, on full ventilatory support and sedated, vital signs as documented. HEAD: No signs of head trauma. EYES: Pupils are equal.non reactive EARS: UNABLE to assess MOUTH: ETT in place NECK: No adenopathy, no JVD. CHEST: Chest with Dimished breath sounds bilaterally.but bilateral air movement noted CARDIAC: Regular rate and rhythm. S1 and S2, without murmurs, gallops, or rubs. VASCULAR: No Edema. Peripheral pulses normal and equal in all extremities. ABDOMEN: Soft, without detectable tenderness. Distended and tympanic. No rebound or guarding, and no masses palpated. Difficult to asertain Bowel sound, very hypoactive MUSCULOSKELETAL: Extremities without clubbing, cyanosis or edema. NEUROLOGIC EXAM: Encephalopathic/ Sedated PSYCHIATRIC: UNABLE TO EXAMINE SKIN: Ecchymosis of the right femoral area. - Constitutional Vitals: Temp Pulse Resp BP Pulse Ox 98.5 F 95 H 17 153/55 100 08/18/17 12:00 08/18/17 16:20 08/18/17 14:30 08/18/17 16:20 08/18/17 16:20 General appearance: Present: no acute distress Results - Labs CBC & Chem 7: 08/18/17 04:30 08/18/17 08:20 Labs: Laboratory Last Values WBC 10.5 K/mm3 (4.5-11.0) 08/18/17 04:30 RBC 2.40 M/mm3 (3.65-5.03) L 08/18/17 04:30 Hgb 7.3 gm/dl (11.8-15.2) L 08/18/17 04:30 POC Hgb 8.5 (12-17) L 08/11/17 14:39 Hct 21.8 % (35.5-45.6) L 08/18/17 04:30 POC Hct 25 (38-51) L 08/11/17 14:39 MCV 91 fl (84-94) 08/18/17 04:30 MCH 30 pg (28-32) 08/18/17 04:30 MCHC 34 % (32-34) 08/18/17 04:30 RDW 16.3 % (13.2-15.2) H 08/18/17 04:30 Plt Count 95 K/mm3 (140-440) L 08/18/17 04:30 Lymph % (Auto) 6.6 % (13.4-35.0) L 08/16/17 04:42 [place] % (Auto) 10.1 % (0.0-7.3) H 08/16/17 04:42 Eos % (Auto) 0.1 % (0.0-4.3) 08/16/17 04:42 Baso % (Auto) 0.1 % (0.0-1.8) 08/16/17 04:42 Lymph # 0.9 K/mm3 (1.2-5.4) L 08/16/17 04:42 [place] # 1.4 K/mm3 (0.0-0.8) H 08/16/17 04:42 Eos # 0.0 K/mm3 (0.0-0.4) 08/16/17 04:42 Baso # 0.0 K/mm3 (0.0-0.1) 08/16/17 04:42 Seg Neutrophils % 83.1 % (40.0-70.0) H 08/16/17 04:42 Seg Neutrophils # 11.8 K/mm3 (1.8-7.7) H 08/16/17 04:42 PT 15.7 Sec. (12.2-14.9) H 08/14/17 05:00 INR 1.18 (0.87-1.13) H 08/14/17 05:00 APTT 31.7 Sec. (24.2-36.6) 08/14/17 05:00 Activated Clotting Time 164 (74-137) H 08/11/17 14:46 Fibrinogen 424 mg/dl (211-480) 08/14/17 05:00 D-Dimer 950.64 ng/mlDDU (0-234) H 08/14/17 05:00 Heparin Anti-Xa Level < 0.10 U.I./ml (0.3-0.7) L 08/12/17 21:50 Heparin Anti-Xa, Unfract Negative (Negative) 08/13/17 05:46 POC ABG pH 7.432 (7.35-7.45) 08/18/17 04:26 POC ABG pCO2 39.2 (35-45) 08/18/17 04:26 POC ABG pO2 97 (80-105) 08/18/17 04:26 POC ABG HCO3 26.2 08/18/17 04:26 POC ABG Total CO2 27 08/18/17 04:26 POC ABG O2 Sat 98 08/18/17 04:26 POC ABG Base Excess 2 08/18/17 04:26 POC Sodium 142 mmol/L (138-146) 08/11/17 14:39 POC Potassium 4.2 (3.5-4.9) 08/11/17 14:39 POC Chloride 109 (98-109) 08/11/17 14:39 FiO2 65 % 08/18/17 04:26 Sodium 146 mmol/L (137-145) H 08/18/17 08:20 Potassium 3.8 mmol/L (3.6-5.0) 08/18/17 08:20 Chloride 108.4 mmol/L (98-107) H 08/18/17 08:20 Carbon Dioxide 27 mmol/L (22-30) 08/18/17 08:20 Anion Gap 14 mmol/L 08/18/17 08:20 POC BUN 13 mg/dl (8-26) 08/11/17 14:39 BUN 62 mg/dL (9-20) H 08/18/17 08:20 Creatinine 2.4 mg/dL (0.8-1.5) H 08/18/17 08:20 Estimated GFR 27 ml/min 08/18/17 08:20 BUN/Creatinine Ratio 26 % 08/18/17 08:20 Glucose 125 mg/dL (75-100) H 08/18/17 08:20 POC Glucose 165 (70-105) H 08/18/17 11:33 Lactic Acid 1.70 mmol/L (0.7-2.0) 08/14/17 05:00 Calcium 8.7 mg/dL (8.4-10.2) 08/18/17 08:20 Total Bilirubin 1.40 mg/dL (0.1-1.2) H 08/17/17 04:30 AST 99 units/L (5-40) H 08/17/17 04:30 ALT 93 units/L (7-56) H 08/17/17 04:30 Alkaline Phosphatase 86 units/L (35-129) 08/17/17 04:30 C-Reactive Protein 13.90 mg/dL (0.00-1.30) H 08/18/17 08:20 Total Protein 5.6 g/dL (6.3-8.2) L D 08/17/17 04:30 Albumin 3.1 g/dL (3.9-5) L 08/17/17 04:30 Albumin/Globulin Ratio 1.2 % 08/17/17 04:30 Urine Color Red (Yellow) 08/12/17 18:30 Urine Turbidity Hazy (Clear) 08/12/17 18:30 Urine pH 5.0 (5.0-7.0) 08/12/17 18:30 Ur Specific [place] 1.051 (1.003-1.030) H 08/12/17 18:30 Urine Protein 100 mg/dl mg/dL (Negative) 08/12/17 18:30 Urine Glucose (UA) 50 mg/dL (Negative) 08/12/17 18:30 Urine Ketones Neg mg/dL (Negative) 08/12/17 18:30 Urine Blood Lg (Negative) 08/12/17 18:30 Urine Nitrite Neg (Negative) 08/12/17 18:30 Urine Bilirubin Neg (Negative) 08/12/17 18:30 Urine Urobilinogen < 2.0 mg/dL (<2.0) 08/12/17 18:30 Ur Leukocyte Esterase Tr (Negative) 08/12/17 18:30 Urine WBC (Auto) > 182.0 /HPF (0.0-6.0) H 08/12/17 18:30 Urine RBC (Auto) > 182.0 /HPF (0.0-6.0) 08/12/17 18:30 Urine Mucus 1+ /HPF 08/12/17 18:30 Heparin-induced Plt Ab Negative (Negative) 08/13/17 05:46 UF Heparin High Dose 0 % Release 08/13/17 05:46 SORIN UFH Low Dose 0.1 0 % Release 08/13/17 05:46 SORIN UFH Low Dose 0.5 0 % Release 08/13/17 05:46 Hepatitis A IgM Ab Non-reactive (NonReactive) 08/13/17 15:35 Hep Bs Antigen Non-reactive (Negative) 08/13/17 15:35 Hep B Core IgM Ab Non-reactive (NonReactive) 08/13/17 15:35 Hepatitis C Antibody Non-reactive (NonReactive) 08/13/17 15:35 Miscellaneous Test Tnp 08/13/17 07:50 Blood Type O POSITIVE 08/11/17 06:50 Antibody Screen Negative 08/11/17 06:50 Crossmatch See Detail 08/11/17 06:50
--- NOTE | 2017-08-18 19:39 | Progress Note ---
Assessment and Plan Acute Hypoxic Respiratory failure Vasogenic Shock WILLIAM Secondary to vasomotor nephropathy Severe Metabolic Acidosis Acute blood loss anemia PVD s/p right femoral end-arterectomy Acute encephalopathy s/p Massive blood transfusion Leukocytosis Nicotine dependence/Tobacco abuse disorder - continue supplemental oxygen and wean to keep sats > 90% - continue to address VAP bundle daily -initiate SBTs once FIO2 is down to 50% and PEEP down to 6 - continue empiric antibiotics and follow cultures / clinically for de- escalation - continue vasopresors and wean to keep MAP >/= 65 mmHg - continue HD/UF per nephrology prescription for volume and toxin clearance - SCD's , initiate heparin for VTE as soon as possible - continue agitation and analgesia management while avoiding benzodiazepines - Avoiding nephrotoxic agents and adjusting medication dose for GFR/CrCL; indwelling barrientos catheter for strict I's & O's in this critically ill patient with WILLIAM - continue enteral nutrition as tolerated - Nicotine withdrawal precautions Subjective Date of service: 08/18/17 Principal diagnosis: Acute Hypoxemic Respiratory Failure; Hemorrhagic Shock; WILLIAM on Dilaysis;PVD Interval history: Seen and examined at bedside; 24 hour events reviewed; Vitals, labs, medications, chart reviewed. Remains on MVS; AMS is persistent, still agitated during SAT's and non purposeful No fevers overnight. Discussed with RT and RN Discussed during interdisciplinary rounds Objective - Exam Narrative Exam: VITAL SIGNS: Reviewed. GENERAL: The patient appeared ill, moderate obese, Full ventilatory support and sedated, vital signs as documented. HEAD: No signs of head trauma. EYES: Pupils are equal.non reactive EARS: UNABLE to assess MOUTH: ETT in place NECK: No adenopathy, no JVD. CHEST: Chest with Dimished breath sounds bilaterally.but bilateral air movement noted CARDIAC: Regular rate and rhythm. S1 and S2, without murmurs, gallops, or rubs. VASCULAR: No Edema. Peripheral pulses normal and equal in all extremities. ABDOMEN: Soft, without detectable tenderness. Distended and tympanic. No rebound or guarding, and no masses palpated. Bowel sound, very hypoactive Scrotal edema. Barrientos catheter with good urine output MUSCULOSKELETAL: Extremities without clubbing, cyanosis , Has bilateral lower extremity edema. NEUROLOGIC EXAM: Encephalopathic/ Sedated PSYCHIATRIC: UNABLE TO EXAMINE SKIN: Ecchymosis of the right femoral area. Vital Signs - 12hr 08/18/17 08/18/1708/18/18 07:46 08:00 08:16 Temperature 98.6 F Pulse Rate 95 H 96 H 96 H Respiratory 13 14 15 Rate Blood Pressure 101/62 101/62 101/62 O2 Sat by Pulse 99 99 98 Oximetry 08/18/17 08/18/17 08/18/17 08:30 08:46 08:57 Temperature Pulse Rate 89 103 H 105 H Respiratory 15 21 Rate Blood Pressure 101/62 101/62 155/60 O2 Sat by Pulse 99 100 95 Oximetry 08/18/17 08/18/17 08/18/17 09:00 09:16 09:30 Temperature Pulse Rate 104 H 103 H 95 H Respiratory 16 21 19 Rate Blood Pressure 101/62 101/62 101/62 O2 Sat by Pulse 95 95 95 Oximetry 08/18/17 08/18/17 08/18/17 09:46 10:00 10:10 Temperature Pulse Rate 94 H 101 H Respiratory 17 20 Rate Blood Pressure 101/62 101/62 O2 Sat by Pulse 95 95 98 Oximetry 08/18/17 08/18/17 08/18/17 10:16 10:30 10:39 Temperature Pulse Rate 118 H 102 H 103 H Respiratory 17 20 Rate Blood Pressure 101/62 101/62 178/63 O2 Sat by Pulse 94 94 Oximetry 08/18/17 08/18/17 08/18/17 10:46 11:00 11:16 Temperature Pulse Rate 101 H 97 H 102 H Respiratory 20 19 18 Rate Blood Pressure 101/62 148/68 148/68 O2 Sat by Pulse 95 94 94 Oximetry 08/18/17 08/18/17 08/18/17 11:30 11:46 12:00 Temperature 98.5 F Pulse Rate 99 H 94 H 92 H Respiratory 17 16 11 L Rate Blood Pressure 148/68 148/68 148/68 O2 Sat by Pulse 94 95 92 Oximetry 08/18/17 08/18/17 08/18/17 12:15 12:16 12:26 Temperature Pulse Rate 88 95 H Respiratory 18 Rate Blood Pressure 148/68 144/55 O2 Sat by Pulse 98 90 91 Oximetry 08/18/17 08/18/17 08/18/17 12:30 12:46 13:00 Temperature Pulse Rate 86 87 80 Respiratory 17 17 14 Rate Blood Pressure 148/68 148/68 148/68 O2 Sat by Pulse 95 92 96 Oximetry 08/18/17 08/18/17 08/18/17 13:16 13:30 13:46 Temperature Pulse Rate 80 83 76 Respiratory 15 17 16 Rate Blood Pressure 148/68 148/68 148/68 O2 Sat by Pulse 96 98 98 Oximetry 08/18/17 08/18/17 08/18/17 14:00 14:16 14:30 Temperature Pulse Rate 85 85 86 Respiratory 15 19 17 Rate Blood Pressure 148/68 148/68 148/68 O2 Sat by Pulse 98 98 98 Oximetry 08/18/17 08/18/17 08/18/17 14:46 15:00 15:16 Temperature Pulse Rate 96 H 88 86 Respiratory 15 14 18 Rate Blood Pressure 148/68 148/68 148/68 O2 Sat by Pulse 96 98 98 Oximetry 08/18/17 08/18/17 08/18/17 15:30 15:46 16:00 Temperature Pulse Rate 96 H 100 H 88 Respiratory 16 13 14 Rate Blood Pressure 148/68 148/68 148/68 O2 Sat by Pulse 96 100 99 Oximetry 08/18/17 08/18/17 08/18/17 16:16 16:20 16:30 Temperature Pulse Rate 108 H 95 H 93 H Respiratory 16 18 Rate Blood Pressure 148/68 153/55 148/68 O2 Sat by Pulse 100 100 99 Oximetry 08/18/17 08/18/17 08/18/17 16:46 17:00 17:16 Temperature Pulse Rate 88 92 H 96 H Respiratory 18 17 21 Rate Blood Pressure 148/68 148/68 148/68 O2 Sat by Pulse 98 98 96 Oximetry 08/18/17 08/18/17 08/18/17 17:30 17:46 18:00 Temperature Pulse Rate 99 H 96 H 97 H Respiratory 20 21 18 Rate Blood Pressure 148/68 148/68 148/68 O2 Sat by Pulse 94 94 95 Oximetry Constitutional: appears uncomfortable, other (obese) Eyes: non-icteric ENT: oropharynx moist, oropharyngeal exudate pre, other (large neck circumference) Neck: supple, no lymphadenopathy, no JVD, other (RIJ CVL & VasCath) Effort: mildly labored Ascultation: Bilateral: diminished breath sounds, rales Percussion: Bilateral: not dull Cardiovascular: regular rate and rhythm, other (No R/M) Gastrointestinal: hypoactive bowel sounds, soft, non-tender, non-distended, other (no palpable HSM) Integumentary: other (post-op scars) Extremities: no cyanosis, pink and warm, no ischemia or petechiae, edema Neurologic: non-focal exam (grossly), unable to assess Psychiatric: other (unable to assess) CBC and BMP: 08/20/17 04:45 08/20/17 04:45 ABG, PT/INR, D-dimer: ABG POC ABG pH 7.432 (7.35-7.45) 08/18/17 04:26 POC ABG pCO2 39.2 (35-45) 08/18/17 04:26 POC ABG pO2 97 (80-105) 08/18/17 04:26 POC ABG HCO3 26.2 08/18/17 04:26 POC ABG Total CO2 27 08/18/17 04:26 POC ABG O2 Sat 98 08/18/17 04:26 PT/INR, D-dimer PT 15.7 Sec. (12.2-14.9) H 08/14/17 05:00 INR 1.18 (0.87-1.13) H 08/14/17 05:00 D-Dimer 950.64 ng/mlDDU (0-234) H 08/14/17 05:00 Abnormal lab findings: Abnormal Labs 08/10/17 08/10/17 08/10/17 10:05 10:05 10:05 WBC RBC Hgb POC Hgb Hct POC Hct MCV 97 H MCH 33 H RDW Plt Count Lymph % (Auto) [place] % (Auto) Lymph # [place] # Seg Neutrophils % 72.9 H Seg Neutrophils # PT 11.6 L INR 0.81 L APTT Activated Clotting Time D-Dimer Heparin Anti-Xa Level POC ABG pH POC ABG pCO2 POC ABG pO2 Sodium Potassium Chloride Carbon Dioxide BUN Creatinine 0.7 L Glucose 196 H POC Glucose Lactic Acid Calcium Total Bilirubin AST ALT C-Reactive Protein Total Protein Albumin Ur Specific [place] Urine WBC (Auto) Crossmatch 08/11/17 08/11/17 08/11/17 06:50 07:03 09:50 WBC RBC Hgb POC Hgb Hct POC Hct MCV MCH RDW Plt Count Lymph % (Auto) [place] % (Auto) Lymph # [place] # Seg Neutrophils % Seg Neutrophils # PT INR APTT Activated Clotting Time D-Dimer Heparin Anti-Xa Level POC ABG pH 7.270 L POC ABG pCO2 49.1 H POC ABG pO2 117 H Sodium Potassium Chloride Carbon Dioxide BUN Creatinine Glucose POC Glucose 160 H Lactic Acid Calcium Total Bilirubin AST ALT C-Reactive Protein Total Protein Albumin Ur Specific [place] Urine WBC (Auto) Crossmatch See Detail 08/11/17 08/11/17 08/11/17 10:52 11:12 12:16 WBC RBC Hgb POC Hgb Hct POC Hct MCV MCH RDW Plt Count Lymph % (Auto) [place] % (Auto) Lymph # [place] # Seg Neutrophils % Seg Neutrophils # PT INR APTT Activated Clotting Time 191 H 153 H D-Dimer Heparin Anti-Xa Level POC ABG pH POC ABG pCO2 POC ABG pO2 Sodium Potassium Chloride Carbon Dioxide BUN Creatinine Glucose POC Glucose 176 H Lactic Acid Calcium Total Bilirubin AST ALT C-Reactive Protein Total Protein Albumin Ur Specific [place] Urine WBC (Auto) Crossmatch 08/11/17 08/11/17 08/11/17 12:27 13:07 14:39 WBC RBC Hgb POC Hgb 9.9 L 8.5 L Hct POC Hct 29 L 25 L MCV MCH RDW Plt Count Lymph % (Auto) [place] % (Auto) Lymph # [place] # Seg Neutrophils % Seg Neutrophils # PT INR APTT Activated Clotting Time 186 H D-Dimer Heparin Anti-Xa Level POC ABG pH POC ABG pCO2 POC ABG pO2 Sodium Potassium Chloride Carbon Dioxide BUN Creatinine Glucose POC Glucose 183 H 197 H Lactic Acid Calcium Total Bilirubin AST ALT C-Reactive Protein Total Protein Albumin Ur Specific [place] Urine WBC (Auto) Crossmatch 08/11/17 08/11/17 08/11/17 14:46 16:18 17:57 WBC 12.7 H RBC 3.00 L Hgb 9.5 L D POC Hgb Hct 28.3 L D POC Hct MCV MCH RDW 16.3 H Plt Count 105 L Lymph % (Auto) 6.7 L [place] % (Auto) Lymph # 0.8 L [place] # Seg Neutrophils % 86.3 H Seg Neutrophils # 10.9 H PT INR APTT Activated Clotting Time 164 H D-Dimer Heparin Anti-Xa Level POC ABG pH POC ABG pCO2 POC ABG pO2 Sodium Potassium Chloride Carbon Dioxide BUN Creatinine Glucose POC Glucose 192 H Lactic Acid Calcium Total Bilirubin AST ALT C-Reactive Protein Total Protein Albumin Ur Specific [place] Urine WBC (Auto) Crossmatch 08/11/17 08/11/17 08/11/17 17:57 20:00 20:00 WBC RBC Hgb 10.2 L POC Hgb Hct 31.1 L POC Hct MCV MCH RDW Plt Count 117 L Lymph % (Auto) [place] % (Auto) Lymph # [place] # Seg Neutrophils % Seg Neutrophils # PT 15.3 H INR 1.15 H APTT 97.7 H* Activated Clotting Time D-Dimer Heparin Anti-Xa Level POC ABG pH POC ABG pCO2 POC ABG pO2 Sodium Potassium Chloride 117.4 H Carbon Dioxide 18 L BUN Creatinine 0.7 L Glucose 143 H POC Glucose Lactic Acid Calcium 6.4 L D Total Bilirubin AST ALT C-Reactive Protein Total Protein Albumin Ur Specific [place] Urine WBC (Auto) Crossmatch 08/12/17 08/12/17 08/12/17 03:30 03:50 03:50 WBC RBC Hgb 9.2 L 9.1 L POC Hgb Hct 27.5 L 27.2 L POC Hct MCV MCH RDW Plt Count Lymph % (Auto) [place] % (Auto) Lymph # [place] # Seg Neutrophils % Seg Neutrophils # PT INR APTT Activated Clotting Time D-Dimer Heparin Anti-Xa Level POC ABG pH POC ABG pCO2 POC ABG pO2 Sodium Potassium Chloride 113.5 H Carbon Dioxide 13 L BUN Creatinine Glucose 243 H POC Glucose Lactic Acid Calcium 6.3 L Total Bilirubin AST ALT C-Reactive Protein Total Protein Albumin Ur Specific [place] Urine WBC (Auto) Crossmatch 08/12/17 08/12/17 08/12/17 07:36 08:48 16:16 WBC RBC Hgb POC Hgb Hct POC Hct MCV MCH RDW Plt Count Lymph % (Auto) [place] % (Auto) Lymph # [place] # Seg Neutrophils % Seg Neutrophils # PT INR APTT Activated Clotting Time D-Dimer Heparin Anti-Xa Level POC ABG pH 6.952 L 7.159 L POC ABG pCO2 49.1 H 47.8 H POC ABG pO2 76 L 106 H Sodium Potassium Chloride Carbon Dioxide BUN Creatinine Glucose POC Glucose 246 H Lactic Acid Calcium Total Bilirubin AST ALT C-Reactive Protein Total Protein Albumin Ur Specific [place] Urine WBC (Auto) Crossmatch 08/12/17 08/12/17 08/12/17 17:54 18:30 20:15 WBC 17.9 H RBC 3.29 L Hgb 10.0 L POC Hgb Hct 29.3 L POC Hct MCV MCH RDW 15.5 H Plt Count 76 L Lymph % (Auto) [place] % (Auto) Lymph # [place] # Seg Neutrophils % Seg Neutrophils # PT INR APTT Activated Clotting Time D-Dimer Heparin Anti-Xa Level POC ABG pH POC ABG pCO2 POC ABG pO2 Sodium Potassium Chloride Carbon Dioxide BUN Creatinine Glucose POC Glucose 240 H Lactic Acid Calcium Total Bilirubin AST ALT C-Reactive Protein Total Protein Albumin Ur Specific [place] 1.051 H Urine WBC (Auto) > 182.0 H Crossmatch 08/12/17 08/12/17 08/13/17 21:50 21:50 03:20 WBC RBC Hgb POC Hgb Hct POC Hct MCV MCH RDW Plt Count Lymph % (Auto) [place] % (Auto) Lymph # [place] # Seg Neutrophils % Seg Neutrophils # PT INR APTT Activated Clotting Time D-Dimer Heparin Anti-Xa Level < 0.10 L POC ABG pH POC ABG pCO2 POC ABG pO2 Sodium Potassium 5.4 H Chloride 110.8 H Carbon Dioxide 18 L BUN 30 H Creatinine 2.5 H D Glucose 216 H POC Glucose 235 H Lactic Acid Calcium 5.7 L* Total Bilirubin AST ALT C-Reactive Protein Total Protein Albumin Ur Specific [place] Urine WBC (Auto) Crossmatch 08/13/17 08/13/17 08/13/17 05:46 05:46 06:06 WBC 14.6 H RBC 2.49 L Hgb 7.6 L POC Hgb Hct 22.3 L D POC Hct MCV MCH RDW 15.7 H Plt Count 78 L Lymph % (Auto) 10.3 L [place] % (Auto) Lymph # [place] # Seg Neutrophils % 84.1 H Seg Neutrophils # 12.3 H PT INR APTT Activated Clotting Time D-Dimer Heparin Anti-Xa Level POC ABG pH 7.282 L POC ABG pCO2 POC ABG pO2 Sodium Potassium Chloride 107.5 H Carbon Dioxide 19 L BUN 35 H Creatinine 2.9 H Glucose 242 H POC Glucose Lactic Acid Calcium 6.3 L Total Bilirubin AST 1304 H ALT 533 H C-Reactive Protein Total Protein 4.4 L Albumin 2.8 L Ur Specific [place] Urine WBC (Auto) Crossmatch 08/13/17 08/13/17 08/13/17 07:10 07:10 09:00 WBC RBC Hgb POC Hgb Hct POC Hct MCV MCH RDW Plt Count Lymph % (Auto) [place] % (Auto) Lymph # [place] # Seg Neutrophils % Seg Neutrophils # PT 17.4 H INR 1.35 H APTT Activated Clotting Time D-Dimer 598.44 H Heparin Anti-Xa Level POC ABG pH POC ABG pCO2 POC ABG pO2 Sodium Potassium Chloride 107.2 H Carbon Dioxide 19 L BUN 35 H Creatinine 2.8 H Glucose 240 H POC Glucose Lactic Acid 3.10 H* Calcium 6.2 L Total Bilirubin AST ALT C-Reactive Protein Total Protein Albumin Ur Specific [place] Urine WBC (Auto) Crossmatch 08/13/17 08/13/17 08/13/17 17:55 18:31 21:19 WBC RBC Hgb POC Hgb Hct POC Hct MCV MCH RDW Plt Count Lymph % (Auto) [place] % (Auto) Lymph # [place] # Seg Neutrophils % Seg Neutrophils # PT INR APTT Activated Clotting Time D-Dimer Heparin Anti-Xa Level POC ABG pH 7.451 H POC ABG pCO2 33.0 L POC ABG pO2 53 L Sodium Potassium Chloride Carbon Dioxide BUN Creatinine Glucose POC Glucose 247 H Lactic Acid 2.20 H* Calcium Total Bilirubin AST ALT C-Reactive Protein Total Protein Albumin Ur Specific [place] Urine WBC (Auto) Crossmatch 08/13/17 08/14/17 08/14/17 23:34 00:10 05:00 WBC RBC Hgb POC Hgb Hct POC Hct MCV MCH RDW Plt Count Lymph % (Auto) [place] % (Auto) Lymph # [place] # Seg Neutrophils % Seg Neutrophils # PT 15.7 H INR 1.18 H APTT Activated Clotting Time D-Dimer 950.64 H Heparin Anti-Xa Level POC ABG pH POC ABG pCO2 POC ABG pO2 Sodium Potassium Chloride Carbon Dioxide BUN Creatinine Glucose POC Glucose 237 H Lactic Acid 2.70 H* Calcium Total Bilirubin AST ALT C-Reactive Protein Total Protein Albumin Ur Specific [place] Urine WBC (Auto) Crossmatch 08/14/17 08/14/17 08/14/17 05:00 05:11 10:26 WBC 14.2 H RBC 2.66 L Hgb 7.9 L POC Hgb Hct 23.2 L POC Hct MCV MCH RDW 16.0 H Plt Count 75 L Lymph % (Auto) [place] % (Auto) Lymph # [place] # Seg Neutrophils % Seg Neutrophils # PT INR APTT Activated Clotting Time D-Dimer Heparin Anti-Xa Level POC ABG pH POC ABG pCO2 POC ABG pO2 78 L Sodium Potassium Chloride Carbon Dioxide BUN Creatinine Glucose POC Glucose 227 H Lactic Acid Calcium Total Bilirubin AST ALT C-Reactive Protein Total Protein Albumin Ur Specific [place] Urine WBC (Auto) Crossmatch 08/14/17 08/14/17 08/14/17 11:28 11:28 12:06 WBC RBC Hgb POC Hgb Hct POC Hct MCV MCH RDW Plt Count Lymph % (Auto) [place] % (Auto) Lymph # [place] # Seg Neutrophils % Seg Neutrophils # PT INR APTT Activated Clotting Time D-Dimer Heparin Anti-Xa Level POC ABG pH POC ABG pCO2 POC ABG pO2 Sodium Potassium Chloride Carbon Dioxide BUN 43 H Creatinine 3.6 H Glucose 209 H POC Glucose 219 H Lactic Acid Calcium 7.6 L D Total Bilirubin AST ALT C-Reactive Protein 29.00 H Total Protein Albumin Ur Specific [place] Urine WBC (Auto) Crossmatch 08/14/17 08/14/17 08/14/17 17:57 19:54 23:23 WBC RBC Hgb POC Hgb Hct POC Hct MCV MCH RDW Plt Count Lymph % (Auto) [place] % (Auto) Lymph # [place] # Seg Neutrophils % Seg Neutrophils # PT INR APTT Activated Clotting Time D-Dimer Heparin Anti-Xa Level POC ABG pH POC ABG pCO2 46.5 H POC ABG pO2 64 L Sodium Potassium Chloride Carbon Dioxide BUN Creatinine Glucose POC Glucose 178 H 170 H Lactic Acid Calcium Total Bilirubin AST ALT C-Reactive Protein Total Protein Albumin Ur Specific [place] Urine WBC (Auto) Crossmatch 08/15/17 08/15/17 08/15/17 03:44 04:40 05:19 WBC 12.6 H RBC 2.49 L Hgb 7.4 L POC Hgb Hct 22.1 L POC Hct MCV MCH RDW 16.5 H Plt Count 64 L Lymph % (Auto) [place] % (Auto) Lymph # [place] # Seg Neutrophils % Seg Neutrophils # PT INR APTT Activated Clotting Time D-Dimer Heparin Anti-Xa Level POC ABG pH POC ABG pCO2 48.1 H POC ABG pO2 68 L Sodium Potassium Chloride Carbon Dioxide BUN Creatinine Glucose POC Glucose 154 H Lactic Acid Calcium Total Bilirubin AST ALT C-Reactive Protein Total Protein Albumin Ur Specific [place] Urine WBC (Auto) Crossmatch 08/15/17 08/15/17 08/15/17 12:20 13:22 18:05 WBC RBC Hgb POC Hgb Hct POC Hct MCV MCH RDW Plt Count Lymph % (Auto) [place] % (Auto) Lymph # [place] # Seg Neutrophils % Seg Neutrophils # PT INR APTT Activated Clotting Time D-Dimer Heparin Anti-Xa Level POC ABG pH POC ABG pCO2 POC ABG pO2 Sodium Potassium Chloride Carbon Dioxide BUN 45 H Creatinine 4.1 H Glucose 141 H POC Glucose 147 H 170 H Lactic Acid Calcium 7.8 L Total Bilirubin AST ALT C-Reactive Protein Total Protein Albumin Ur Specific [place] Urine WBC (Auto) Crossmatch 08/15/17 08/16/17 08/16/17 23:43 04:42 05:22 WBC 14.2 H RBC 2.54 L Hgb 7.5 L POC Hgb Hct 22.6 L POC Hct MCV MCH RDW 16.4 H Plt Count 73 L Lymph % (Auto) 6.6 L [place] % (Auto) 10.1 H Lymph # 0.9 L [place] # 1.4 H Seg Neutrophils % 83.1 H Seg Neutrophils # 11.8 H PT INR APTT Activated Clotting Time D-Dimer Heparin Anti-Xa Level POC ABG pH POC ABG pCO2 POC ABG pO2 71 L Sodium Potassium Chloride Carbon Dioxide BUN Creatinine Glucose POC Glucose 155 H Lactic Acid Calcium Total Bilirubin AST ALT C-Reactive Protein Total Protein Albumin Ur Specific [place] Urine WBC (Auto) Crossmatch 08/16/17 08/16/17 08/16/17 06:20 08:49 11:54 WBC RBC Hgb POC Hgb Hct POC Hct MCV MCH RDW Plt Count Lymph % (Auto) [place] % (Auto) Lymph # [place] # Seg Neutrophils % Seg Neutrophils # PT INR APTT Activated Clotting Time D-Dimer Heparin Anti-Xa Level POC ABG pH POC ABG pCO2 POC ABG pO2 Sodium Potassium Chloride Carbon Dioxide BUN Creatinine Glucose POC Glucose 165 H 191 H 188 H Lactic Acid Calcium Total Bilirubin AST ALT C-Reactive Protein Total Protein Albumin Ur Specific [place] Urine WBC (Auto) Crossmatch 08/16/17 08/16/17 08/16/17 13:00 18:32 23:33 WBC RBC Hgb POC Hgb Hct POC Hct MCV MCH RDW Plt Count Lymph % (Auto) [place] % (Auto) Lymph # [place] # Seg Neutrophils % Seg Neutrophils # PT INR APTT Activated Clotting Time D-Dimer Heparin Anti-Xa Level POC ABG pH POC ABG pCO2 POC ABG pO2 Sodium Potassium Chloride Carbon Dioxide BUN 47 H Creatinine 3.4 H Glucose 179 H POC Glucose 219 H 179 H Lactic Acid Calcium 8.2 L Total Bilirubin AST ALT C-Reactive Protein Total Protein Albumin Ur Specific [place] Urine WBC (Auto) Crossmatch 08/17/17 08/17/17 08/17/17 04:25 04:30 05:32 WBC 15.2 H RBC 2.60 L Hgb 7.6 L POC Hgb Hct 23.8 L POC Hct MCV MCH RDW 16.3 H Plt Count 92 L Lymph % (Auto) [place] % (Auto) Lymph # [place] # Seg Neutrophils % Seg Neutrophils # PT INR APTT Activated Clotting Time D-Dimer Heparin Anti-Xa Level POC ABG pH POC ABG pCO2 POC ABG pO2 57 L Sodium Potassium Chloride Carbon Dioxide BUN 63 H Creatinine 3.4 H Glucose 155 H POC Glucose Lactic Acid Calcium 8.3 L Total Bilirubin 1.40 H AST 99 H ALT 93 H C-Reactive Protein Total Protein 5.6 L D Albumin 3.1 L Ur Specific [place] Urine WBC (Auto) Crossmatch 08/17/17 08/17/17 08/17/17 06:36 12:37 17:44 WBC RBC Hgb POC Hgb Hct POC Hct MCV MCH RDW Plt Count Lymph % (Auto) [place] % (Auto) Lymph # [place] # Seg Neutrophils % Seg Neutrophils # PT INR APTT Activated Clotting Time D-Dimer Heparin Anti-Xa Level POC ABG pH POC ABG pCO2 POC ABG pO2 Sodium Potassium Chloride Carbon Dioxide BUN Creatinine Glucose POC Glucose 167 H 203 H 158 H Lactic Acid Calcium Total Bilirubin AST ALT C-Reactive Protein Total Protein Albumin Ur Specific [place] Urine WBC (Auto) Crossmatch 08/17/17 08/18/17 08/18/17 23:55 04:30 05:57 WBC RBC 2.40 L Hgb 7.3 L POC Hgb Hct 21.8 L POC Hct MCV MCH RDW 16.3 H Plt Count 95 L Lymph % (Auto) [place] % (Auto) Lymph # [place] # Seg Neutrophils % Seg Neutrophils # PT INR APTT Activated Clotting Time D-Dimer Heparin Anti-Xa Level POC ABG pH POC ABG pCO2 POC ABG pO2 Sodium Potassium Chloride Carbon Dioxide BUN Creatinine Glucose POC Glucose 146 H 179 H Lactic Acid Calcium Total Bilirubin AST ALT C-Reactive Protein Total Protein Albumin Ur Specific [place] Urine WBC (Auto) Crossmatch 08/18/17 08/18/17 08/18/17 08:20 08:20 08:32 WBC RBC Hgb POC Hgb Hct POC Hct MCV MCH RDW Plt Count Lymph % (Auto) [place] % (Auto) Lymph # [place] # Seg Neutrophils % Seg Neutrophils # PT INR APTT Activated Clotting Time D-Dimer Heparin Anti-Xa Level POC ABG pH POC ABG pCO2 POC ABG pO2 Sodium 146 H Potassium Chloride 108.4 H Carbon Dioxide BUN 62 H Creatinine 2.4 H Glucose 125 H POC Glucose 161 H Lactic Acid Calcium Total Bilirubin AST ALT C-Reactive Protein 13.90 H Total Protein Albumin Ur Specific [place] Urine WBC (Auto) Crossmatch 08/18/17 08/18/17 11:33 17:18 WBC RBC Hgb POC Hgb Hct POC Hct MCV MCH RDW Plt Count Lymph % (Auto) [place] % (Auto) Lymph # [place] # Seg Neutrophils % Seg Neutrophils # PT INR APTT Activated Clotting Time D-Dimer Heparin Anti-Xa Level POC ABG pH POC ABG pCO2 POC ABG pO2 Sodium Potassium Chloride Carbon Dioxide BUN Creatinine Glucose POC Glucose 165 H 126 H Lactic Acid Calcium Total Bilirubin AST ALT C-Reactive Protein Total Protein Albumin Ur Specific [place] Urine WBC (Auto) Crossmatch Allied health notes reviewed: RT
[2017-08-18] MEDS ORDERED: CEPHULAC PO ONE (22:00)
--- NOTE | 2017-08-19 02:56 | XRay Report ---
FINAL REPORT PROCEDURE: XR CHEST 1V AP TECHNIQUE: Chest radiograph anteroposterior view. CPT 87065 HISTORY: Follow-up respiratory failure. COMPARISON: Chest radiograph dated 08/18/2017. FINDINGS: Heart: Moderate cardiomegaly. Mediastinum/Vessels: Aortic calcification and tortuosity. Central vascular congestion. Lungs/Pleural space: Continued perihilar and bibasilar opacities with small to moderate right pleural effusion that tracks into the fissure and probable small left pleural effusion. Bony thorax: Sternotomy. Life support devices: The endotracheal tube tip is at the level of the clavicles. Enteric tube projects below the diaphragm, distal tip not included. Two central venous catheters, tips in the SVC/cavoatrial junction. IMPRESSION: Moderate cardiomegaly. Aortic calcification and tortuosity. Central vascular congestion. Continued perihilar and bibasilar opacities with small to moderate right and probable small left pleural effusion. Consider congestive heart failure with atelectasis, cannot exclude underlying pneumonia. Tubes and lines as above.
[2017-08-19] MEDS: LOPRESSOR IV PRN ×3 (03:59→21:50)
[2017-08-19] MEDS: MORPHINE IV PRN ×2 (04:18→21:50)
[2017-08-19] MEDS: HumaLOG SUB-Q SCH ×3 (06:08→18:02)
[2017-08-19 06:46] LABS: Mean Corpuscular HGB Conc 32 % (32-34); Mean Corpuscular Hemoglobin 30 pg (28-32); Mean Corpuscular Volume 95 fl (84-94); Red Blood Count 1.69 M/mm3 (3.65-5.03); Red Cell Distribution Width 17.1 % (13.2-15.2)
[2017-08-19 07:03] LABS: Platelet Count 75 K/mm3 (140-440)
[2017-08-19 07:06] LABS: Hematocrit 15.9 % (35.5-45.6); Hemoglobin 5.1 gm/dl (11.8-15.2)
[2017-08-19] MEDS ORDERED: NACL 0.9% 500 ML 500 ML IV ONE (08:04)
[2017-08-19] MEDS: [UNRECOGNIZED DRUG - OTHER] OS SCH ×3 (08:25→21:44)
--- NOTE | 2017-08-19 09:10 | Progress Note ---
Assessment and Plan Assessment and plan: Patient is 66 year old male with past medical history of hypertension, Type 2 DM , hyperlipidemia, CAD, PAD, who underwent elective vascular procedure for [employer] , and is postop femoral endarterectomy and iliac artery stenting. Patient became hypotensive, giv multiple fluid resuscitation and blood products. Also began to exhibit some altered mental status for which were consulted. Acute hypoxic respiratory failure patient remains intubated unable to wean down secondary to altered mental status. Attempt to wean sedation patient developed agitation. Patient's cognition is not improved enough for extubation attempt at this particular time. Pulmonology following. Vasogenic shock -at present blood pressure is stable. Acute kidney injury secondary to ATN, shock oliguria. Patient now on hemodialysis prn, managed by Nephrology. Metabolic acidosis resolving Thrombocytopenia continues to improve HIT panel pending Platelet count is 75 today. PVD status post common femoral endarterectomy followed for vascular surgery Acute Blood loss anemia- s/p massive blood transfuison. Hgb 5.1 today. For 2 Units PRBC today. Diabetes fairly well controlled with insulin sliding scale would not change at this particular time Hpertension we'll add low dose beta rohini. Acute toxic metabolic Encephalopathy: Off sedation and not following commands, Neurology consulted The high probability of a clinically significant, sudden or life threatening deterioration of the [4] system(s) required my full and direct attention, intervention and personal management. The aggregate critical care time was [] minutes. This time is in addition to time spent performing reported procedures but includes the following: [x] Data Review and interpretation [x] Patient assessment and monitoring of vital signs [x] Documentation [x] Medication orders and management History Interval history: Patient intubated, Low hemoglobin today Hospitalist Physical - Physical exam Narrative exam: General:Not in acute distress, lying in bed,morbidly obese,intubated HEENT:Normocephalic, atraumatic Lungs:Clear to auscultation bilaterally , no rales , no wheeze Heart:S1 and S2 regular, no murmurs, rubs or gallop Abd: soft, non tender, non distended, normal bowel sounds Ext: leg edema, no clubbing or cyanosis Neuro: Intubated, opens eyes, does not follow commands - Constitutional Vitals: Temp Pulse Resp BP Pulse Ox 99.5 F 106 H 25 H 161/80 96 08/19/17 08:00 08/19/17 08:46 08/19/17 08:46 08/19/17 08:46 08/19/17 08:46 General appearance: Present: no acute distress, obese Results - Labs CBC & Chem 7: 08/19/17 09:45 08/19/17 11:05 Labs: Laboratory Last Values WBC 7.8 K/mm3 (4.5-11.0) 08/19/17 05:00 RBC 1.69 M/mm3 (3.65-5.03) L 08/19/17 05:00 Hgb 5.1 gm/dl (11.8-15.2) L* 08/19/17 05:00 POC Hgb 8.5 (12-17) L 08/11/17 14:39 Hct 15.9 % (35.5-45.6) L* 08/19/17 05:00 POC Hct 25 (38-51) L 08/11/17 14:39 MCV 95 fl (84-94) H 08/19/17 05:00 MCH 30 pg (28-32) 08/19/17 05:00 MCHC 32 % (32-34) 08/19/17 05:00 RDW 17.1 % (13.2-15.2) H 08/19/17 05:00 Plt Count 75 K/mm3 (140-440) L 08/19/17 05:00 Lymph % (Auto) 6.6 % (13.4-35.0) L 08/16/17 04:42 [place] % (Auto) 10.1 % (0.0-7.3) H 08/16/17 04:42 Eos % (Auto) 0.1 % (0.0-4.3) 08/16/17 04:42 Baso % (Auto) 0.1 % (0.0-1.8) 08/16/17 04:42 Lymph # 0.9 K/mm3 (1.2-5.4) L 08/16/17 04:42 [place] # 1.4 K/mm3 (0.0-0.8) H 08/16/17 04:42 Eos # 0.0 K/mm3 (0.0-0.4) 08/16/17 04:42 Baso # 0.0 K/mm3 (0.0-0.1) 04/22/18 04:42 Seg Neutrophils % 83.1 % (40.0-70.0) H 08/16/17 04:42 Seg Neutrophils # 11.8 K/mm3 (1.8-7.7) H 08/16/17 04:42 PT 15.7 Sec. (12.2-14.9) H 08/14/17 05:00 INR 1.18 (0.87-1.13) H 08/14/17 05:00 APTT 31.7 Sec. (24.2-36.6) 08/14/17 05:00 Activated Clotting Time 164 (74-137) H 08/11/17 14:46 Fibrinogen 424 mg/dl (211-480) 08/14/17 05:00 D-Dimer 950.64 ng/mlDDU (0-234) H 08/14/17 05:00 Heparin Anti-Xa Level < 0.10 U.I./ml (0.3-0.7) L 08/12/17 21:50 Heparin Anti-Xa, Unfract Negative (Negative) 08/13/17 05:46 POC ABG pH 7.447 (7.35-7.45) 08/19/17 04:33 POC ABG pCO2 38.3 (35-45) 08/19/17 04:33 POC ABG pO2 65 (80-105) L 08/19/17 04:33 POC ABG HCO3 26.4 08/19/17 04:33 POC ABG Total CO2 28 08/19/17 04:33 POC ABG O2 Sat 93 08/19/17 04:33 POC ABG Base Excess 2 08/19/17 04:33 POC Sodium 142 mmol/L (138-146) 08/11/17 14:39 POC Potassium 4.2 (3.5-4.9) 08/11/17 14:39 POC Chloride 109 (98-109) 08/11/17 14:39 FiO2 50 % 08/19/17 04:33 Sodium 146 mmol/L (137-145) H 08/18/17 08:20 Potassium 3.8 mmol/L (3.6-5.0) 08/18/17 08:20 Chloride 108.4 mmol/L (98-107) H 08/18/17 08:20 Carbon Dioxide 27 mmol/L (22-30) 08/18/17 08:20 Anion Gap 14 mmol/L 08/18/17 08:20 POC BUN 13 mg/dl (8-26) 08/11/17 14:39 BUN 62 mg/dL (9-20) H 08/18/17 08:20 Creatinine 2.4 mg/dL (0.8-1.5) H 08/18/17 08:20 Estimated GFR 27 ml/min 08/18/17 08:20 BUN/Creatinine Ratio 26 % 08/18/17 08:20 Glucose 125 mg/dL (75-100) H 08/18/17 08:20 POC Glucose 174 (70-105) H 08/19/17 05:44 Lactic Acid 1.70 mmol/L (0.7-2.0) 08/14/17 05:00 Calcium 8.7 mg/dL (8.4-10.2) 08/18/17 08:20 Total Bilirubin 1.40 mg/dL (0.1-1.2) H 08/17/17 04:30 AST 99 units/L (5-40) H 08/17/17 04:30 ALT 93 units/L (7-56) H 08/17/17 04:30 Alkaline Phosphatase 86 units/L (35-129) 08/17/17 04:30 C-Reactive Protein 13.90 mg/dL (0.00-1.30) H 08/18/17 08:20 Total Protein 5.6 g/dL (6.3-8.2) L D 08/17/17 04:30 Albumin 3.1 g/dL (3.9-5) L 08/17/17 04:30 Albumin/Globulin Ratio 1.2 % 08/17/17 04:30 Urine Color Red (Yellow) 08/12/17 18:30 Urine Turbidity Hazy (Clear) 08/12/17 18:30 Urine pH 5.0 (5.0-7.0) 08/12/17 18:30 Ur Specific [place] 1.051 (1.003-1.030) H 08/12/17 18:30 Urine Protein 100 mg/dl mg/dL (Negative) 08/12/17 18:30 Urine Glucose (UA) 50 mg/dL (Negative) 08/12/17 18:30 Urine Ketones Neg mg/dL (Negative) 08/12/17 18:30 Urine Blood Lg (Negative) 08/12/17 18:30 Urine Nitrite Neg (Negative) 08/12/17 18:30 Urine Bilirubin Neg (Negative) 08/12/17 18:30 Urine Urobilinogen < 2.0 mg/dL (<2.0) 08/12/17 18:30 Ur Leukocyte Esterase Tr (Negative) 08/12/17 18:30 Urine WBC (Auto) > 182.0 /HPF (0.0-6.0) H 08/12/17 18:30 Urine RBC (Auto) > 182.0 /HPF (0.0-6.0) 08/12/17 18:30 Urine Mucus 1+ /HPF 08/12/17 18:30 Heparin-induced Plt Ab Negative (Negative) 08/13/17 05:46 UF Heparin High Dose 0 % Release 08/13/17 05:46 SORIN UFH Low Dose 0.1 0 % Release 08/13/17 05:46 SORIN UFH Low Dose 0.5 0 % Release 08/13/17 05:46 Hepatitis A IgM Ab Non-reactive (NonReactive) 08/13/17 15:35 Hep Bs Antigen Non-reactive (Negative) 08/13/17 15:35 Hep B Core IgM Ab Non-reactive (NonReactive) 08/13/17 15:35 Hepatitis C Antibody Non-reactive (NonReactive) 08/13/17 15:35 Miscellaneous Test Tnp 08/13/17 07:50 Blood Type O POSITIVE 08/19/17 08:26 Antibody Screen Negative 08/11/17 06:50 Crossmatch See Detail 08/19/17 08:26
--- NOTE | 2017-08-19 09:10 | Progress Note ---
Assessment and Plan Patient will be transfused 2 units of blood. A CT of the head has been ordered secondary to the patient's mental status. Given the drop in hemoglobin, a CTA of the abdomen and pelvis and both arterial and delayed phases will also be ordered after the patient has received blood. Subjective Date of service: 08/19/17 Principal diagnosis: Acute Hypoxemic Respiratory Failure; Hemorrhagic Shock; WILLIAM on Dilaysis;PVD Interval history: Patient is stable, intubated and minimally responsive. His hemoglobin dropped overnight to 5.1. His bilateral lower extremities are warm. Incisions are clean dry and intact. His abdomen is soft. Objective - Constitutional Vitals: Vital Signs - 12hr 08/18/17 08/18/17 08/18/17 21:16 21:30 21:46 Temperature Pulse Rate 95 H 99 H 85 Pulse Rate [ From Monitor] Respiratory 19 18 17 Rate Blood Pressure 148/68 148/68 148/68 O2 Sat by Pulse 96 96 97 Oximetry 08/18/17 08/18/17 08/18/17 22:00 22:09 22:16 Temperature Pulse Rate 97 H 102 H 99 H Pulse Rate [ From Monitor] Respiratory 17 18 Rate Blood Pressure 148/68 165/67 148/68 O2 Sat by Pulse 97 97 Oximetry 08/18/17 08/18/17 08/18/17 22:30 22:46 23:00 Temperature Pulse Rate 103 H 100 H 98 H Pulse Rate [ From Monitor] Respiratory 19 18 18 Rate Blood Pressure 148/68 148/68 148/68 O2 Sat by Pulse 97 97 98 Oximetry 08/18/17 08/18/17 08/18/17 23:16 23:26 23:30 Temperature Pulse Rate 90 88 96 H Pulse Rate [ From Monitor] Respiratory 17 18 17 Rate Blood Pressure 148/68 148/68 148/68 O2 Sat by Pulse 98 95 97 Oximetry 08/18/17 08/19/17 08/19/17 23:46 00:00 00:16 Temperature 98.1 F Pulse Rate 100 H 89 88 Pulse Rate [ From Monitor] Respiratory 20 19 18 Rate Blood Pressure 148/68 148/68 148/68 O2 Sat by Pulse 95 94 94 Oximetry 08/19/17 08/19/17 08/19/17 00:30 00:46 01:00 Temperature Pulse Rate 86 85 97 H Pulse Rate [ From Monitor] Respiratory 19 20 18 Rate Blood Pressure 148/68 148/68 148/68 O2 Sat by Pulse 94 94 95 Oximetry 08/19/17 08/19/17 08/19/17 01:16 01:30 01:46 Temperature Pulse Rate 90 86 103 H Pulse Rate [ From Monitor] Respiratory 23 20 21 Rate Blood Pressure 148/68 148/68 148/68 O2 Sat by Pulse 95 95 96 Oximetry 08/19/17 08/19/17 08/19/17 02:00 02:16 02:30 Temperature Pulse Rate 97 H 80 96 H Pulse Rate [ From Monitor] Respiratory 20 21 25 H Rate Blood Pressure 148/68 148/68 148/68 O2 Sat by Pulse 95 96 95 Oximetry 08/19/17 08/19/17 08/19/17 02:46 03:00 03:16 Temperature Pulse Rate 93 H 102 H 92 H Pulse Rate [ From Monitor] Respiratory 22 23 Rate Blood Pressure 148/68 148/68 148/68 O2 Sat by Pulse 95 95 96 Oximetry 08/19/17 08/19/17 08/19/17 03:30 03:46 03:59 Temperature Pulse Rate 104 H 107 H 100 H Pulse Rate [ From Monitor] Respiratory 21 22 Rate Blood Pressure 148/68 148/68 167/67 O2 Sat by Pulse 96 94 Oximetry 08/19/17 08/19/17 08/19/17 04:00 04:16 04:20 Temperature 98.9 F Pulse Rate 99 H 110 H 104 H Pulse Rate [ From Monitor] Respiratory 25 H 21 Rate Blood Pressure 148/68 149/113 149/113 O2 Sat by Pulse 94 93 95 Oximetry 08/19/17 08/19/17 08/19/17 04:30 04:46 05:00 Temperature Pulse Rate 101 H 102 H 102 H Pulse Rate [ From Monitor] Respiratory 22 22 23 Rate Blood Pressure 149/113 149/113 159/91 O2 Sat by Pulse 95 96 96 Oximetry 08/19/17 08/19/17 08/19/17 05:16 05:30 05:46 Temperature Pulse Rate 112 H 113 H 96 H Pulse Rate [ From Monitor] Respiratory 22 24 23 Rate Blood Pressure 159/91 159/91 159/91 O2 Sat by Pulse 96 96 96 Oximetry 08/19/17 08/19/17 08/19/17 06:00 06:16 06:30 Temperature Pulse Rate 109 H 108 H 105 H Pulse Rate [ From Monitor] Respiratory 22 24 23 Rate Blood Pressure 156/74 156/74 143/70 O2 Sat by Pulse 94 96 95 Oximetry 08/19/17 08/19/17 08/19/17 06:46 07:00 07:16 Temperature Pulse Rate 114 H 106 H 103 H Pulse Rate [ From Monitor] Respiratory 24 23 23 Rate Blood Pressure 143/70 143/70 131/68 O2 Sat by Pulse 95 95 Oximetry 08/19/17 08/19/17 08/19/17 07:30 07:46 08:00 Temperature 99.5 F Pulse Rate 105 H 98 H 111 H Pulse Rate [ 111 H From Monitor] Respiratory 24 23 24 Rate Blood Pressure 131/68 146/72 146/72 O2 Sat by Pulse 96 96 96 Oximetry 08/19/17 08/19/17 08/19/17 08:16 08:30 08:46 Temperature Pulse Rate 97 H 106 H 106 H Pulse Rate [ From Monitor] Respiratory 24 23 25 H Rate Blood Pressure 146/72 146/72 161/80 O2 Sat by Pulse 96 94 96 Oximetry General appearance: Present: no acute distress, obese - EENT Eyes: PERRL ENT: hearing intact - Neck Neck: supple - Respiratory Respiratory effort: other (intubated) - Breasts Breasts: deferred Extremities: abnormal - Gastrointestinal General gastrointestinal: Present: soft Rectal Exam: deferred - Genitourinary Male genitourinary: deferred - Neurologic Neurologic: no focal deficits - Psychiatric Psychiatric: cooperative - Labs CBC & Chem 7: 08/19/17 05:00 08/18/17 08:20 Labs: Abnormal lab results 08/18/17 08/18/17 08/18/17 Range/Units 08:20 08:32 11:33 RBC (3.65-5.03) M/mm3 Hgb (11.8-15.2) gm/dl Hct (35.5-45.6) % MCV (84-94) fl RDW (13.2-15.2) % Plt Count (140-440) K/mm3 POC ABG pO2 (80-105) POC Glucose 161 H 165 H (70-105) C-Reactive Protein 13.90 H (0.00-1.30) mg/dL Crossmatch 08/18/17 08/18/17 08/19/17 Range/Units 17:18 23:31 04:33 RBC (3.65-5.03) M/mm3 Hgb (11.8-15.2) gm/dl Hct (35.5-45.6) % MCV (84-94) fl RDW (13.2-15.2) % Plt Count (140-440) K/mm3 POC ABG pO2 65 L (80-105) POC Glucose 126 H 166 H (70-105) C-Reactive Protein (0.00-1.30) mg/dL Crossmatch 08/19/17 08/19/17 08/19/17 Range/Units 05:00 05:44 08:26 RBC 1.69 L (3.65-5.03) M/mm3 Hgb 5.1 L* (11.8-15.2) gm/dl Hct 15.9 L* (35.5-45.6) % MCV 95 H (84-94) fl RDW 17.1 H (13.2-15.2) % Plt Count 75 L (140-440) K/mm3 POC ABG pO2 (80-105) POC Glucose 174 H (70-105) C-Reactive Protein (0.00-1.30) mg/dL Crossmatch See Detail
--- NOTE | 2017-08-19 09:34 | Hem/Onc Progress Note ---
Assessment and Plan Heparin-induced thrombocytopenia assay is negative. Awaiting repeat CBC. Possible dilutional drop If repeat hgb low, would recommend transfusion. And would need to find cause of bleeding. We will follow Subjective Date of service: 08/19/17 Interval history: Patient has had a drop in hemoglobin. No active bleeding. Redraw is recommended by vascular. Objective - Exam Narrative Exam: On ventilator - Constitutional Vitals: Last Vital Signs Temp 99.5 F 08/19/17 08:00 Pulse 107 H 08/19/17 09:20 Resp 25 H 08/19/17 08:46 BP 189/77 08/19/17 09:20 Pulse Ox 96 08/19/17 09:20 Performance status: 4-completely disabled (on ventilator) - Cardiovascular Rhythm: regular (tachycardia) - Gastrointestinal General gastrointestinal: Present: soft - Integumentary Integumentary: warm (warm toes) - Labs Lab Results: Laboratory Results - last 24 hr 08/18/17 08/18/17 08/18/17 08:20 08:32 11:33 WBC RBC Hgb Hct MCV MCH MCHC RDW Plt Count POC ABG pH POC ABG pCO2 POC ABG pO2 POC ABG HCO3 POC ABG Total CO2 POC ABG O2 Sat POC ABG Base Excess FiO2 POC Glucose 161 H 165 H C-Reactive Protein 13.90 H Blood Type Antibody Screen Crossmatch 08/18/17 08/18/17 08/19/17 17:18 23:31 04:33 WBC RBC Hgb Hct MCV MCH MCHC RDW Plt Count POC ABG pH 7.447 POC ABG pCO2 38.3 POC ABG pO2 65 L POC ABG HCO3 26.4 POC ABG Total CO2 28 POC ABG O2 Sat 93 POC ABG Base Excess 2 FiO2 50 POC Glucose 126 H 166 H C-Reactive Protein Blood Type Antibody Screen Crossmatch 08/19/17 08/19/17 08/19/17 05:00 05:44 08:26 WBC 7.8 RBC 1.69 L Hgb 5.1 L* Hct 15.9 L* MCV 95 H MCH 30 MCHC 32 RDW 17.1 H Plt Count 75 L POC ABG pH POC ABG pCO2 POC ABG pO2 POC ABG HCO3 POC ABG Total CO2 POC ABG O2 Sat POC ABG Base Excess FiO2 POC Glucose 174 H C-Reactive Protein Blood Type O POSITIVE Antibody Screen Negative Crossmatch See Detail
[2017-08-19] MEDS: COREG PO SCH ×2 (09:50→21:47)
[2017-08-19] MEDS: ATIVAN IV PRN (09:50)
[2017-08-19] MEDS: HALFPRIN EC PO SCH (09:51)
[2017-08-19] MEDS: PAXIL PO SCH (09:51)
[2017-08-19] MEDS: FOLVITE PO SCH (09:51)
[2017-08-19] MEDS: PEPCID IV SCH (09:51)
[2017-08-19] MEDS: Centrum Liq PO SCH (09:51)
[2017-08-19] MEDS: VITAMIN B-1 PO SCH (09:51)
[2017-08-19] MEDS: DOXYCYCLINE HYCLATE 100 MG in NACL 0.9% 250ML 250 ML IV SCH ×2 (09:52→21:46)
[2017-08-19 10:17] LABS: Hematocrit 26.7 % (35.5-45.6); Hemoglobin 8.8 gm/dl (11.8-15.2)
--- NOTE | 2017-08-19 11:17 | Progress Note ---
Assessment and Plan - Patient Problems (1) Acute renal failure due to tubular necrosis Current Visit: Yes Status: Acute Plan to address problem: Acute renal failure / acute tubular necrosis nonoliguric with improving urine output. Still with volume overload but improving with fluid removal on dialysis and diuresis. We'll hold dialysis for now and monitor for further signs of renal recovery. (2) Hemorrhagic shock Current Visit: Yes Status: Acute Plan to address problem: Status post multiple transfusions. Appears to be resolving. Follow-up hemoglobin (3) Hyperkalemia Current Visit: Yes Status: Acute Plan to address problem: Potassium improved. Labs pending this morning Follow-up level (4) Hypocalcemia Current Visit: Yes Status: Acute Plan to address problem: Supplemental calcium as indicated. (5) Metabolic acidosis Current Visit: Yes Status: Acute Plan to address problem: Bicarbonate has improved. Follow bicarbonate level (6) Atherosclerosis of [place] arteries of extremity with intermittent claudication Current Visit: No Status: Acute Plan to address problem: Continue management per vascular surgeon (7) Anemia Current Visit: Yes Status: Acute Plan to address problem: Follow-up hemoglobin. Consider packed red blood cell transfusion Subjective Date of service: 08/19/17 Principal diagnosis: Acute Hypoxemic Respiratory Failure; Hemorrhagic Shock; WILLIAM on Dilaysis;PVD Interval history: Patient seen lying in bed in intensive care unit. He is intubated on the ventilator. He moves on stimulation. He is not following commands Objective - Exam Narrative Exam: Middle aged male lying in bed intubated on ventilator HEENT: NCAT, endotracheal tube intact, orogastric tube intact Neck: Supple, no venous distention CVS: S1S2 RRR with no murmur, rub or gallop Chest: Clear to auscultation Abdomen: Distended, soft to firm, nontender, no organomegaly, bowel sounds are present Extremities: 2+ pitting edema, no cyanosis. Skin warm and dry with areas of ecchymoses Neuro: Moves on stimulation, not following commands - Vital Signs Vital signs: Vital Signs - 12hr 08/18/17 08/18/17 08/18/17 23:16 23:26 23:30 Temperature Pulse Rate 90 88 96 H Pulse Rate [ From Monitor] Respiratory 17 18 17 Rate Blood Pressure 148/68 148/68 148/68 O2 Sat by Pulse 98 95 97 Oximetry 08/18/17 08/19/17 08/19/17 23:46 00:00 00:16 Temperature 98.1 F Pulse Rate 100 H 89 88 Pulse Rate [ From Monitor] Respiratory 20 19 18 Rate Blood Pressure 148/68 148/68 148/68 O2 Sat by Pulse 95 94 94 Oximetry 08/19/17 08/19/17 08/19/17 00:30 00:46 01:00 Temperature Pulse Rate 86 85 97 H Pulse Rate [ From Monitor] Respiratory 19 20 18 Rate Blood Pressure 148/68 148/68 148/68 O2 Sat by Pulse 94 94 95 Oximetry 08/19/17 08/19/17 08/19/17 01:16 01:30 01:46 Temperature Pulse Rate 90 86 103 H Pulse Rate [ From Monitor] Respiratory 23 20 21 Rate Blood Pressure 148/68 148/68 148/68 O2 Sat by Pulse 95 95 96 Oximetry 08/19/17 08/19/17 08/19/17 02:00 02:16 02:30 Temperature Pulse Rate 97 H 80 96 H Pulse Rate [ From Monitor] Respiratory 20 21 25 H Rate Blood Pressure 148/68 148/68 148/68 O2 Sat by Pulse 95 96 95 Oximetry 08/19/17 08/19/17 08/19/17 02:46 03:00 03:16 Temperature Pulse Rate 93 H 102 H 92 H Pulse Rate [ From Monitor] Respiratory 22 22 23 Rate Blood Pressure 148/68 148/68 148/68 O2 Sat by Pulse 95 95 96 Oximetry 08/19/17 08/19/17 08/19/17 03:30 03:46 03:59 Temperature Pulse Rate 104 H 107 H 100 H Pulse Rate [ From Monitor] Respiratory 21 22 Rate Blood Pressure 148/68 148/68 167/67 O2 Sat by Pulse 96 94 Oximetry 08/19/17 08/19/17 08/19/17 04:00 04:16 04:20 Temperature 98.9 F Pulse Rate 99 H 110 H 104 H Pulse Rate [ From Monitor] Respiratory 25 H 21 Rate Blood Pressure 148/68 149/113 149/113 O2 Sat by Pulse 94 93 95 Oximetry 08/19/17 08/19/17 08/19/17 04:30 04:46 05:00 Temperature Pulse Rate 101 H 102 H 102 H Pulse Rate [ From Monitor] Respiratory 22 22 23 Rate Blood Pressure 149/113 149/113 159/91 O2 Sat by Pulse 95 96 96 Oximetry 08/19/17 08/19/17 08/19/17 05:16 05:30 05:46 Temperature Pulse Rate 112 H 113 H 96 H Pulse Rate [ From Monitor] Respiratory 22 24 23 Rate Blood Pressure 159/91 159/91 159/91 O2 Sat by Pulse 96 96 96 Oximetry 08/19/17 08/19/17 08/19/17 06:00 06:16 06:30 Temperature Pulse Rate 109 H 108 H 105 H Pulse Rate [ From Monitor] Respiratory 22 24 23 Rate Blood Pressure 156/74 156/74 143/70 O2 Sat by Pulse 94 96 95 Oximetry 08/19/17 08/19/17 08/19/17 06:46 07:00 07:16 Temperature Pulse Rate 114 H 106 H 103 H Pulse Rate [ From Monitor] Respiratory 24 23 23 Rate Blood Pressure 143/70 143/70 131/68 O2 Sat by Pulse 95 95 Oximetry 08/19/17 08/19/17 08/19/17 07:30 07:46 08:00 Temperature 99.5 F Pulse Rate 105 H 98 H 111 H Pulse Rate [ 111 H From Monitor] Respiratory 24 23 24 Rate Blood Pressure 131/68 146/72 146/72 O2 Sat by Pulse 96 96 96 Oximetry 08/19/17 08/19/17 08/19/17 08:16 08:30 08:46 Temperature Pulse Rate 97 H 106 H 106 H Pulse Rate [ From Monitor] Respiratory 24 23 25 H Rate Blood Pressure 146/72 146/72 161/80 O2 Sat by Pulse 96 94 96 Oximetry 08/19/17 08/19/17 09:20 09:50 Temperature Pulse Rate 107 H 103 H Pulse Rate [ From Monitor] Respiratory Rate Blood Pressure 189/77 168/84 O2 Sat by Pulse 96 Oximetry - Lab 08/19/17 09:45 08/18/17 08:20 Most recent lab results Calcium 8.7 mg/dL (8.4-10.2) 08/18/17 08:20
[2017-08-19 11:45] LABS: Calcium 7.9 mg/dL (8.4-10.2)
--- NOTE | 2017-08-19 11:58 | Progress Note ---
Assessment and Plan Acute Hypoxic Respiratory failure Vasogenic Shock, Presumed Bleed WILLIAM Secondary to vasomotor nephropathy Severe Metabolic Acidosis Acute blood loss anemia PVD s/p right femoral end-arterectomy Acute encephalopathy s/p Massive blood transfusion Leukocytosis - continue supplemental oxygen and wean to keep sats > 90% - continue to address VAP bundle daily - continue empiric antibiotics and follow cultures/clinically for de-escalation - weaning off vasopressors - continue HD/UF per nephrology prescription for volume and toxin clearance - now making urine - massive transfusion protocol followed; received FFP's and platelets - hold all antocoagulation till H&H stabilizes - SCD's if OK with vascular team - continue agitation and analgesia management while avoiding benzodiazepines - Avoiding\nephrotoxic agents; places indwelling barrientos catheter for strict I's & O's in this critically ill patient with WILLIAM - continue enteral nutrition as tolerated - Azotemia per nephrology team otherwise - case discussed at length with surgery and in team rounds and care plan formulated - Prognosis remains guarded with high risk of decompensation from a hemodynamic standpoint and even . - continue other care per attending / other consultants .... re-evaluate in am & prn ...35' CCT Subjective Date of service: 08/19/17 Principal diagnosis: Acute Hypoxemic Respiratory Failure; Hemorrhagic Shock; WILLIAM on Dilaysis;PVD Interval history: Patient is seen today for: Acute Hypoxemic Respiratory Failure; Hemorrhagic Shock; WILLIAM on Dilaysis;PVD Seen and examined at bedside; 24 hour events reviewed; nursing and respiratory care staff consulted; remains on MVS; showing improvement in oxygenation; more alert overall; no emesis or overt aspiration; no gross bleeding; tolerating tube feeds well so far; no new issues otherwise Objective Vital Signs - 12hr 08/19/17 08/19/17 08/19/17 00:00 00:16 00:30 Temperature 98.1 F Pulse Rate 89 88 86 Pulse Rate [ From Monitor] Respiratory 19 18 19 Rate Blood Pressure 148/68 148/68 148/68 O2 Sat by Pulse 94 94 94 Oximetry 08/19/17 08/19/17 08/19/17 00:46 01:00 01:16 Temperature Pulse Rate 85 97 H 90 Pulse Rate [ From Monitor] Respiratory 20 18 23 Rate Blood Pressure 148/68 148/68 148/68 O2 Sat by Pulse 94 95 95 Oximetry 08/19/17 08/19/1708/19/18 01:30 01:46 02:00 Temperature Pulse Rate 86 103 H 97 H Pulse Rate [ From Monitor] Respiratory 20 21 20 Rate Blood Pressure 148/68 148/68 148/68 O2 Sat by Pulse 95 96 95 Oximetry 08/19/17 08/19/17 08/19/17 02:16 02:30 02:46 Temperature Pulse Rate 80 96 H 93 H Pulse Rate [ From Monitor] Respiratory 21 25 H 22 Rate Blood Pressure 148/68 148/68 148/68 O2 Sat by Pulse 96 95 95 Oximetry 08/19/17 08/19/17 08/19/17 03:00 03:16 03:30 Temperature Pulse Rate 102 H 92 H 104 H Pulse Rate [ From Monitor] Respiratory 22 23 21 Rate Blood Pressure 148/68 148/68 148/68 O2 Sat by Pulse 95 96 96 Oximetry 08/19/17 08/19/17 08/19/17 03:46 03:59 04:00 Temperature 98.9 F Pulse Rate 107 H 100 H 99 H Pulse Rate [ From Monitor] Respiratory 22 25 H Rate Blood Pressure 148/68 167/67 148/68 O2 Sat by Pulse 94 94 Oximetry 08/19/17 08/19/17 08/19/17 04:16 04:20 04:30 Temperature Pulse Rate 110 H 104 H 101 H Pulse Rate [ From Monitor] Respiratory 21 22 Rate Blood Pressure 149/113 149/113 149/113 O2 Sat by Pulse 93 95 95 Oximetry 08/19/17 08/19/17 08/19/17 04:46 05:00 05:16 Temperature Pulse Rate 102 H 102 H 112 H Pulse Rate [ From Monitor] Respiratory 22 23 22 Rate Blood Pressure 149/113 159/91 159/91 O2 Sat by Pulse 96 96 96 Oximetry 08/19/17 08/19/17 08/19/17 05:30 05:46 06:00 Temperature Pulse Rate 113 H 96 H 109 H Pulse Rate [ From Monitor] Respiratory 24 23 22 Rate Blood Pressure 159/91 159/91 156/74 O2 Sat by Pulse 96 96 94 Oximetry 08/19/17 08/19/17 08/19/17 06:16 06:30 06:46 Temperature Pulse Rate 108 H 105 H 114 H Pulse Rate [ From Monitor] Respiratory 24 23 24 Rate Blood Pressure 156/74 143/70 143/70 O2 Sat by Pulse 96 95 95 Oximetry 08/19/17 08/19/17 08/19/17 07:00 07:16 07:30 Temperature Pulse Rate 106 H 103 H 105 H Pulse Rate [ From Monitor] Respiratory 23 23 24 Rate Blood Pressure 143/70 131/68 131/68 O2 Sat by Pulse 95 96 Oximetry 08/19/17 08/19/17 08/19/17 07:46 08:00 08:16 Temperature 99.5 F Pulse Rate 98 H 111 H 97 H Pulse Rate [ 111 H From Monitor] Respiratory 23 24 24 Rate Blood Pressure 146/72 146/72 146/72 O2 Sat by Pulse 96 96 96 Oximetry 08/19/17 08/19/17 08/19/17 08:30 08:46 09:20 Temperature Pulse Rate 106 H 106 H 107 H Pulse Rate [ From Monitor] Respiratory 23 25 H Rate Blood Pressure 146/72 161/80 189/77 O2 Sat by Pulse 94 96 96 Oximetry 08/19/17 09:50 Temperature Pulse Rate 103 H Pulse Rate [ From Monitor] Respiratory Rate Blood Pressure 168/84 O2 Sat by Pulse Oximetry Constitutional: appears uncomfortable, other (obese; somnolent) Eyes: non-icteric ENT: oropharynx moist, oropharyngeal exudate pre, other (large neck circumference) Neck: supple, no lymphadenopathy, no JVD, other (RIJ VasCath) Effort: mildly labored Ascultation: Bilateral: diminished breath sounds, rales Percussion: Bilateral: not dull Cardiovascular: regular rate and rhythm, other (No R/M) Gastrointestinal: hypoactive bowel sounds, soft, non-tender, non-distended, other (no palpable HSM) Integumentary: other (post-op scars) Extremities: no cyanosis, pink and warm, no ischemia or petechiae, edema Neurologic: non-focal exam (grossly), unable to assess (otherwise) Psychiatric: other (`) CBC and BMP: 08/21/17 04:15 08/21/17 04:15 ABG, PT/INR, D-dimer: ABG POC ABG pH 7.447 (7.35-7.45) 08/19/17 04:33 POC ABG pCO2 38.3 (35-45) 08/19/17 04:33 POC ABG pO2 65 (80-105) L 08/19/17 04:33 POC ABG HCO3 26.4 08/19/17 04:33 POC ABG Total CO2 28 08/19/17 04:33 POC ABG O2 Sat 93 08/19/17 04:33 PT/INR, D-dimer PT 15.7 Sec. (12.2-14.9) H 08/14/17 05:00 INR 1.18 (0.87-1.13) H 08/14/17 05:00 D-Dimer 950.64 ng/mlDDU (0-234) H 08/14/17 05:00 Abnormal lab findings: Abnormal Labs 08/10/17 08/10/17 08/10/17 10:05 10:05 10:05 WBC RBC Hgb POC Hgb Hct POC Hct MCV 97 H MCH 33 H RDW Plt Count Lymph % (Auto) [place] % (Auto) Lymph # [place] # Seg Neutrophils % 72.9 H Seg Neutrophils # PT 11.6 L INR 0.81 L APTT Activated Clotting Time D-Dimer Heparin Anti-Xa Level POC ABG pH POC ABG pCO2 POC ABG pO2 Sodium Potassium Chloride Carbon Dioxide BUN Creatinine 0.7 L Glucose 196 H POC Glucose Lactic Acid Calcium Total Bilirubin AST ALT C-Reactive Protein Total Protein Albumin Ur Specific [place] Urine WBC (Auto) Crossmatch 08/11/17 08/11/17 08/11/17 06:50 07:03 09:50 WBC RBC Hgb POC Hgb Hct POC Hct MCV MCH RDW Plt Count Lymph % (Auto) [place] % (Auto) Lymph # [place] # Seg Neutrophils % Seg Neutrophils # PT INR APTT Activated Clotting Time D-Dimer Heparin Anti-Xa Level POC ABG pH 7.270 L POC ABG pCO2 49.1 H POC ABG pO2 117 H Sodium Potassium Chloride Carbon Dioxide BUN Creatinine Glucose POC Glucose 160 H Lactic Acid Calcium Total Bilirubin AST ALT C-Reactive Protein Total Protein Albumin Ur Specific [place] Urine WBC (Auto) Crossmatch See Detail 08/11/17 08/11/17 08/11/17 10:52 11:12 12:16 WBC RBC Hgb POC Hgb Hct POC Hct MCV MCH RDW Plt Count Lymph % (Auto) [place] % (Auto) Lymph # [place] # Seg Neutrophils % Seg Neutrophils # PT INR APTT Activated Clotting Time 191 H 153 H D-Dimer Heparin Anti-Xa Level POC ABG pH POC ABG pCO2 POC ABG pO2 Sodium Potassium Chloride Carbon Dioxide BUN Creatinine Glucose POC Glucose 176 H Lactic Acid Calcium Total Bilirubin AST ALT C-Reactive Protein Total Protein Albumin Ur Specific [place] Urine WBC (Auto) Crossmatch 08/11/17 08/11/17 08/11/17 12:27 13:07 14:39 WBC RBC Hgb POC Hgb 9.9 L 8.5 L Hct POC Hct 29 L 25 L MCV MCH RDW Plt Count Lymph % (Auto) [place] % (Auto) Lymph # [place] # Seg Neutrophils % Seg Neutrophils # PT INR APTT Activated Clotting Time 186 H D-Dimer Heparin Anti-Xa Level POC ABG pH POC ABG pCO2 POC ABG pO2 Sodium Potassium Chloride Carbon Dioxide BUN Creatinine Glucose POC Glucose 183 H 197 H Lactic Acid Calcium Total Bilirubin AST ALT C-Reactive Protein Total Protein Albumin Ur Specific [place] Urine WBC (Auto) Crossmatch 08/11/17 08/11/17 08/11/17 14:46 16:18 17:57 WBC 12.7 H RBC 3.00 L Hgb 9.5 L D POC Hgb Hct 28.3 L D POC Hct MCV MCH RDW 16.3 H Plt Count 105 L Lymph % (Auto) 6.7 L [place] % (Auto) Lymph # 0.8 L [place] # Seg Neutrophils % 86.3 H Seg Neutrophils # 10.9 H PT INR APTT Activated Clotting Time 164 H D-Dimer Heparin Anti-Xa Level POC ABG pH POC ABG pCO2 POC ABG pO2 Sodium Potassium Chloride Carbon Dioxide BUN Creatinine Glucose POC Glucose 192 H Lactic Acid Calcium Total Bilirubin AST ALT C-Reactive Protein Total Protein Albumin Ur Specific [place] Urine WBC (Auto) Crossmatch 08/11/17 08/11/17 08/11/17 17:57 20:00 20:00 WBC RBC Hgb 10.2 L POC Hgb Hct 31.1 L POC Hct MCV MCH RDW Plt Count 117 L Lymph % (Auto) [place] % (Auto) Lymph # [place] # Seg Neutrophils % Seg Neutrophils # PT 15.3 H INR 1.15 H APTT 97.7 H* Activated Clotting Time D-Dimer Heparin Anti-Xa Level POC ABG pH POC ABG pCO2 POC ABG pO2 Sodium Potassium Chloride 117.4 H Carbon Dioxide 18 L BUN Creatinine 0.7 L Glucose 143 H POC Glucose Lactic Acid Calcium 6.4 L D Total Bilirubin AST ALT C-Reactive Protein Total Protein Albumin Ur Specific [place] Urine WBC (Auto) Crossmatch 08/12/17 08/12/17 08/12/17 03:30 03:50 03:50 WBC RBC Hgb 9.2 L 9.1 L POC Hgb Hct 27.5 L 27.2 L POC Hct MCV MCH RDW Plt Count Lymph % (Auto) [place] % (Auto) Lymph # [place] # Seg Neutrophils % Seg Neutrophils # PT INR APTT Activated Clotting Time D-Dimer Heparin Anti-Xa Level POC ABG pH POC ABG pCO2 POC ABG pO2 Sodium Potassium Chloride 113.5 H Carbon Dioxide 13 L BUN Creatinine Glucose 243 H POC Glucose Lactic Acid Calcium 6.3 L Total Bilirubin AST ALT C-Reactive Protein Total Protein Albumin Ur Specific [place] Urine WBC (Auto) Crossmatch 08/12/17 08/12/17 08/12/17 07:36 08:48 16:16 WBC RBC Hgb POC Hgb Hct POC Hct MCV MCH RDW Plt Count Lymph % (Auto) [place] % (Auto) Lymph # [place] # Seg Neutrophils % Seg Neutrophils # PT INR APTT Activated Clotting Time D-Dimer Heparin Anti-Xa Level POC ABG pH 6.952 L 7.159 L POC ABG pCO2 49.1 H 47.8 H POC ABG pO2 76 L 106 H Sodium Potassium Chloride Carbon Dioxide BUN Creatinine Glucose POC Glucose 246 H Lactic Acid Calcium Total Bilirubin AST ALT C-Reactive Protein Total Protein Albumin Ur Specific [place] Urine WBC (Auto) Crossmatch 08/12/17 08/12/17 08/12/17 17:54 18:30 20:15 WBC 17.9 H RBC 3.29 L Hgb 10.0 L POC Hgb Hct 29.3 L POC Hct MCV MCH RDW 15.5 H Plt Count 76 L Lymph % (Auto) [place] % (Auto) Lymph # [place] # Seg Neutrophils % Seg Neutrophils # PT INR APTT Activated Clotting Time D-Dimer Heparin Anti-Xa Level POC ABG pH POC ABG pCO2 POC ABG pO2 Sodium Potassium Chloride Carbon Dioxide BUN Creatinine Glucose POC Glucose 240 H Lactic Acid Calcium Total Bilirubin AST ALT C-Reactive Protein Total Protein Albumin Ur Specific [place] 1.051 H Urine WBC (Auto) > 182.0 H Crossmatch 08/12/17 08/12/17 08/13/17 21:50 21:50 03:20 WBC RBC Hgb POC Hgb Hct POC Hct MCV MCH RDW Plt Count Lymph % (Auto) [place] % (Auto) Lymph # [place] # Seg Neutrophils % Seg Neutrophils # PT INR APTT Activated Clotting Time D-Dimer Heparin Anti-Xa Level < 0.10 L POC ABG pH POC ABG pCO2 POC ABG pO2 Sodium Potassium 5.4 H Chloride 110.8 H Carbon Dioxide 18 L BUN 30 H Creatinine 2.5 H D Glucose 216 H POC Glucose 235 H Lactic Acid Calcium 5.7 L* Total Bilirubin AST ALT C-Reactive Protein Total Protein Albumin Ur Specific [place] Urine WBC (Auto) Crossmatch 08/13/17 08/13/17 08/13/17 05:46 05:46 06:06 WBC 14.6 H RBC 2.49 L Hgb 7.6 L POC Hgb Hct 22.3 L D POC Hct MCV MCH RDW 15.7 H Plt Count 78 L Lymph % (Auto) 10.3 L [place] % (Auto) Lymph # [place] # Seg Neutrophils % 84.1 H Seg Neutrophils # 12.3 H PT INR APTT Activated Clotting Time D-Dimer Heparin Anti-Xa Level POC ABG pH 7.282 L POC ABG pCO2 POC ABG pO2 Sodium Potassium Chloride 107.5 H Carbon Dioxide 19 L BUN 35 H Creatinine 2.9 H Glucose 242 H POC Glucose Lactic Acid Calcium 6.3 L Total Bilirubin AST 1304 H ALT 533 H C-Reactive Protein Total Protein 4.4 L Albumin 2.8 L Ur Specific [place] Urine WBC (Auto) Crossmatch 08/13/17 08/13/17 08/13/17 07:10 07:10 09:00 WBC RBC Hgb POC Hgb Hct POC Hct MCV MCH RDW Plt Count Lymph % (Auto) [place] % (Auto) Lymph # [place] # Seg Neutrophils % Seg Neutrophils # PT 17.4 H INR 1.35 H APTT Activated Clotting Time D-Dimer 598.44 H Heparin Anti-Xa Level POC ABG pH POC ABG pCO2 POC ABG pO2 Sodium Potassium Chloride 107.2 H Carbon Dioxide 19 L BUN 35 H Creatinine 2.8 H Glucose 240 H POC Glucose Lactic Acid 3.10 H* Calcium 6.2 L Total Bilirubin AST ALT C-Reactive Protein Total Protein Albumin Ur Specific [place] Urine WBC (Auto) Crossmatch 08/13/17 08/13/17 08/13/17 17:55 18:31 21:19 WBC RBC Hgb POC Hgb Hct POC Hct MCV MCH RDW Plt Count Lymph % (Auto) [place] % (Auto) Lymph # [place] # Seg Neutrophils % Seg Neutrophils # PT INR APTT Activated Clotting Time D-Dimer Heparin Anti-Xa Level POC ABG pH 7.451 H POC ABG pCO2 33.0 L POC ABG pO2 53 L Sodium Potassium Chloride Carbon Dioxide BUN Creatinine Glucose POC Glucose 247 H Lactic Acid 2.20 H* Calcium Total Bilirubin AST ALT C-Reactive Protein Total Protein Albumin Ur Specific [place] Urine WBC (Auto) Crossmatch 08/13/17 08/14/17 08/14/17 23:34 00:10 05:00 WBC RBC Hgb POC Hgb Hct POC Hct MCV MCH RDW Plt Count Lymph % (Auto) [place] % (Auto) Lymph # [place] # Seg Neutrophils % Seg Neutrophils # PT 15.7 H INR 1.18 H APTT Activated Clotting Time D-Dimer 950.64 H Heparin Anti-Xa Level POC ABG pH POC ABG pCO2 POC ABG pO2 Sodium Potassium Chloride Carbon Dioxide BUN Creatinine Glucose POC Glucose 237 H Lactic Acid 2.70 H* Calcium Total Bilirubin AST ALT C-Reactive Protein Total Protein Albumin Ur Specific [place] Urine WBC (Auto) Crossmatch 08/14/17 08/14/17 08/14/17 05:00 05:11 10:26 WBC 14.2 H RBC 2.66 L Hgb 7.9 L POC Hgb Hct 23.2 L POC Hct MCV MCH RDW 16.0 H Plt Count 75 L Lymph % (Auto) [place] % (Auto) Lymph # [place] # Seg Neutrophils % Seg Neutrophils # PT INR APTT Activated Clotting Time D-Dimer Heparin Anti-Xa Level POC ABG pH POC ABG pCO2 POC ABG pO2 78 L Sodium Potassium Chloride Carbon Dioxide BUN Creatinine Glucose POC Glucose 227 H Lactic Acid Calcium Total Bilirubin AST ALT C-Reactive Protein Total Protein Albumin Ur Specific [place] Urine WBC (Auto) Crossmatch 08/14/17 08/14/17 08/14/17 11:28 11:28 12:06 WBC RBC Hgb POC Hgb Hct POC Hct MCV MCH RDW Plt Count Lymph % (Auto) [place] % (Auto) Lymph # [place] # Seg Neutrophils % Seg Neutrophils # PT INR APTT Activated Clotting Time D-Dimer Heparin Anti-Xa Level POC ABG pH POC ABG pCO2 POC ABG pO2 Sodium Potassium Chloride Carbon Dioxide BUN 43 H Creatinine 3.6 H Glucose 209 H POC Glucose 219 H Lactic Acid Calcium 7.6 L D Total Bilirubin AST ALT C-Reactive Protein 29.00 H Total Protein Albumin Ur Specific [place] Urine WBC (Auto) Crossmatch 08/14/17 08/14/17 08/14/17 17:57 19:54 23:23 WBC RBC Hgb POC Hgb Hct POC Hct MCV MCH RDW Plt Count Lymph % (Auto) [place] % (Auto) Lymph # [place] # Seg Neutrophils % Seg Neutrophils # PT INR APTT Activated Clotting Time D-Dimer Heparin Anti-Xa Level POC ABG pH POC ABG pCO2 46.5 H POC ABG pO2 64 L Sodium Potassium Chloride Carbon Dioxide BUN Creatinine Glucose POC Glucose 178 H 170 H Lactic Acid Calcium Total Bilirubin AST ALT C-Reactive Protein Total Protein Albumin Ur Specific [place] Urine WBC (Auto) Crossmatch 08/15/17 08/15/17 08/15/17 03:44 04:40 05:19 WBC 12.6 H RBC 2.49 L Hgb 7.4 L POC Hgb Hct 22.1 L POC Hct MCV MCH RDW 16.5 H Plt Count 64 L Lymph % (Auto) [place] % (Auto) Lymph # [place] # Seg Neutrophils % Seg Neutrophils # PT INR APTT Activated Clotting Time D-Dimer Heparin Anti-Xa Level POC ABG pH POC ABG pCO2 48.1 H POC ABG pO2 68 L Sodium Potassium Chloride Carbon Dioxide BUN Creatinine Glucose POC Glucose 154 H Lactic Acid Calcium Total Bilirubin AST ALT C-Reactive Protein Total Protein Albumin Ur Specific [place] Urine WBC (Auto) Crossmatch 08/15/17 08/15/17 08/15/17 12:20 13:22 18:05 WBC RBC Hgb POC Hgb Hct POC Hct MCV MCH RDW Plt Count Lymph % (Auto) [place] % (Auto) Lymph # [place] # Seg Neutrophils % Seg Neutrophils # PT INR APTT Activated Clotting Time D-Dimer Heparin Anti-Xa Level POC ABG pH POC ABG pCO2 POC ABG pO2 Sodium Potassium Chloride Carbon Dioxide BUN 45 H Creatinine 4.1 H Glucose 141 H POC Glucose 147 H 170 H Lactic Acid Calcium 7.8 L Total Bilirubin AST ALT C-Reactive Protein Total Protein Albumin Ur Specific [place] Urine WBC (Auto) Crossmatch 08/15/17 08/16/17 08/16/17 23:43 04:42 05:22 WBC 14.2 H RBC 2.54 L Hgb 7.5 L POC Hgb Hct 22.6 L POC Hct MCV MCH RDW 16.4 H Plt Count 73 L Lymph % (Auto) 6.6 L [place] % (Auto) 10.1 H Lymph # 0.9 L [place] # 1.4 H Seg Neutrophils % 83.1 H Seg Neutrophils # 11.8 H PT INR APTT Activated Clotting Time D-Dimer Heparin Anti-Xa Level POC ABG pH POC ABG pCO2 POC ABG pO2 71 L Sodium Potassium Chloride Carbon Dioxide BUN Creatinine Glucose POC Glucose 155 H Lactic Acid Calcium Total Bilirubin AST ALT C-Reactive Protein Total Protein Albumin Ur Specific [place] Urine WBC (Auto) Crossmatch 08/16/17 08/16/17 08/16/17 06:20 08:49 11:54 WBC RBC Hgb POC Hgb Hct POC Hct MCV MCH RDW Plt Count Lymph % (Auto) [place] % (Auto) Lymph # [place] # Seg Neutrophils % Seg Neutrophils # PT INR APTT Activated Clotting Time D-Dimer Heparin Anti-Xa Level POC ABG pH POC ABG pCO2 POC ABG pO2 Sodium Potassium Chloride Carbon Dioxide BUN Creatinine Glucose POC Glucose 165 H 191 H 188 H Lactic Acid Calcium Total Bilirubin AST ALT C-Reactive Protein Total Protein Albumin Ur Specific [place] Urine WBC (Auto) Crossmatch 08/16/17 08/16/17 08/16/17 13:00 18:32 23:33 WBC RBC Hgb POC Hgb Hct POC Hct MCV MCH RDW Plt Count Lymph % (Auto) [place] % (Auto) Lymph # [place] # Seg Neutrophils % Seg Neutrophils # PT INR APTT Activated Clotting Time D-Dimer Heparin Anti-Xa Level POC ABG pH POC ABG pCO2 POC ABG pO2 Sodium Potassium Chloride Carbon Dioxide BUN 47 H Creatinine 3.4 H Glucose 179 H POC Glucose 219 H 179 H Lactic Acid Calcium 8.2 L Total Bilirubin AST ALT C-Reactive Protein Total Protein Albumin Ur Specific [place] Urine WBC (Auto) Crossmatch 08/17/17 08/17/17 08/17/17 04:25 04:30 05:32 WBC 15.2 H RBC 2.60 L Hgb 7.6 L POC Hgb Hct 23.8 L POC Hct MCV MCH RDW 16.3 H Plt Count 92 L Lymph % (Auto) [place] % (Auto) Lymph # [place] # Seg Neutrophils % Seg Neutrophils # PT INR APTT Activated Clotting Time D-Dimer Heparin Anti-Xa Level POC ABG pH POC ABG pCO2 POC ABG pO2 57 L Sodium Potassium Chloride Carbon Dioxide BUN 63 H Creatinine 3.4 H Glucose 155 H POC Glucose Lactic Acid Calcium 8.3 L Total Bilirubin 1.40 H AST 99 H ALT 93 H C-Reactive Protein Total Protein 5.6 L D Albumin 3.1 L Ur Specific [place] Urine WBC (Auto) Crossmatch 08/17/17 08/17/17 08/17/17 06:36 12:37 17:44 WBC RBC Hgb POC Hgb Hct POC Hct MCV MCH RDW Plt Count Lymph % (Auto) [place] % (Auto) Lymph # [place] # Seg Neutrophils % Seg Neutrophils # PT INR APTT Activated Clotting Time D-Dimer Heparin Anti-Xa Level POC ABG pH POC ABG pCO2 POC ABG pO2 Sodium Potassium Chloride Carbon Dioxide BUN Creatinine Glucose POC Glucose 167 H 203 H 158 H Lactic Acid Calcium Total Bilirubin AST ALT C-Reactive Protein Total Protein Albumin Ur Specific [place] Urine WBC (Auto) Crossmatch 08/17/17 08/18/17 08/18/17 23:55 04:30 05:57 WBC RBC 2.40 L Hgb 7.3 L POC Hgb Hct 21.8 L POC Hct MCV MCH RDW 16.3 H Plt Count 95 L Lymph % (Auto) [place] % (Auto) Lymph # [place] # Seg Neutrophils % Seg Neutrophils # PT INR APTT Activated Clotting Time D-Dimer Heparin Anti-Xa Level POC ABG pH POC ABG pCO2 POC ABG pO2 Sodium Potassium Chloride Carbon Dioxide BUN Creatinine Glucose POC Glucose 146 H 179 H Lactic Acid Calcium Total Bilirubin AST ALT C-Reactive Protein Total Protein Albumin Ur Specific [place] Urine WBC (Auto) Crossmatch 08/18/17 08/18/17 08/18/17 08:20 08:20 08:32 WBC RBC Hgb POC Hgb Hct POC Hct MCV MCH RDW Plt Count Lymph % (Auto) [place] % (Auto) Lymph # [place] # Seg Neutrophils % Seg Neutrophils # PT INR APTT Activated Clotting Time D-Dimer Heparin Anti-Xa Level POC ABG pH POC ABG pCO2 POC ABG pO2 Sodium 146 H Potassium Chloride 108.4 H Carbon Dioxide BUN 62 H Creatinine 2.4 H Glucose 125 H POC Glucose 161 H Lactic Acid Calcium Total Bilirubin AST ALT C-Reactive Protein 13.90 H Total Protein Albumin Ur Specific [place] Urine WBC (Auto) Crossmatch 08/18/17 08/18/17 08/18/17 11:33 17:18 23:31 WBC RBC Hgb POC Hgb Hct POC Hct MCV MCH RDW Plt Count Lymph % (Auto) [place] % (Auto) Lymph # [place] # Seg Neutrophils % Seg Neutrophils # PT INR APTT Activated Clotting Time D-Dimer Heparin Anti-Xa Level POC ABG pH POC ABG pCO2 POC ABG pO2 Sodium Potassium Chloride Carbon Dioxide BUN Creatinine Glucose POC Glucose 165 H 126 H 166 H Lactic Acid Calcium Total Bilirubin AST ALT C-Reactive Protein Total Protein Albumin Ur Specific [place] Urine WBC (Auto) Crossmatch 08/19/17 08/19/17 08/19/17 04:33 05:00 05:44 WBC RBC 1.69 L Hgb 5.1 L* POC Hgb Hct 15.9 L* POC Hct MCV 95 H MCH RDW 17.1 H Plt Count 75 L Lymph % (Auto) [place] % (Auto) Lymph # [place] # Seg Neutrophils % Seg Neutrophils # PT INR APTT Activated Clotting Time D-Dimer Heparin Anti-Xa Level POC ABG pH POC ABG pCO2 POC ABG pO2 65 L Sodium Potassium Chloride Carbon Dioxide BUN Creatinine Glucose POC Glucose 174 H Lactic Acid Calcium Total Bilirubin AST ALT C-Reactive Protein Total Protein Albumin Ur Specific [place] Urine WBC (Auto) Crossmatch 08/19/17 08/19/17 08/19/17 08:26 09:45 11:05 WBC RBC Hgb 8.8 L D POC Hgb Hct 26.7 L D POC Hct MCV MCH RDW Plt Count Lymph % (Auto) [place] % (Auto) Lymph # [place] # Seg Neutrophils % Seg Neutrophils # PT INR APTT Activated Clotting Time D-Dimer Heparin Anti-Xa Level POC ABG pH POC ABG pCO2 POC ABG pO2 Sodium 151 H Potassium 3.3 L Chloride 112.5 H Carbon Dioxide BUN 65 H Creatinine 1.6 H Glucose 145 H POC Glucose Lactic Acid Calcium 7.9 L Total Bilirubin AST ALT C-Reactive Protein Total Protein Albumin Ur Specific [place] Urine WBC (Auto) Crossmatch See Detail Allied health notes reviewed: nursing
--- NOTE | 2017-08-19 12:44 | Vascular Lab Report ---
UPPER EXTREMITY VENOUS DUPLEX: REASON FOR EXAM: Pain and swelling of the upper extremities COMMENTS ON THE RIGHT: Acute superficial venous thrombosis is seen in the cephalic vein just above the antecubital fossa. The remaining veins visualized are freely compressible without evidence of internal echogenicity. Spontaneous and phasic flow is present proximally. A nonspecific soft tissue changes in the proximal forearm. This could be a hematoma. COMMENTS ON THE LEFT: Acute superficial venous thrombosis is seen from the mid forearm to the mid upper arm the cephalic vein. The remaining veins visualized are freely compressible without evidence of internal echogenicity. Spontaneous and phasic flow is present proximally. IMPRESSION: Acute superficial venous thrombosis in the cephalic veins bilaterally. No evidence of acute deep venous thrombosis in either upper extremity. Nonspecific soft tissue mass in the proximal right forearm which could be a hematoma.
[2017-08-19] MEDS: HEPARIN SUB-Q SCH ×2 (14:13→21:46)
[2017-08-19] MEDS: PEPCID PO SCH (21:46)
[2017-08-20] MEDS: HumaLOG SUB-Q SCH ×4 (00:33→18:40)
[2017-08-20] MEDS: LOPRESSOR IV PRN ×2 (02:22→08:45)
[2017-08-20] MEDS: MORPHINE IV PRN (02:22)
[2017-08-20 04:53] LABS: Hematocrit 26.9 % (35.5-45.6); Hemoglobin 8.9 gm/dl (11.8-15.2); Mean Corpuscular HGB Conc 33 % (32-34); Mean Corpuscular Hemoglobin 30 pg (28-32); Mean Corpuscular Volume 91 fl (84-94); Red Blood Count 2.97 M/mm3 (3.65-5.03); Red Cell Distribution Width 16.8 % (13.2-15.2)
[2017-08-20] MEDS: HEPARIN SUB-Q SCH ×3 (05:06→22:07)
[2017-08-20 05:20] LABS: Calcium 8.8 mg/dL (8.4-10.2)
[2017-08-20 05:34] LABS: Platelet Count 154 K/mm3 (140-440)
--- NOTE | 2017-08-20 08:38 | Progress Note ---
Assessment and Plan - Patient Problems (1) Acute renal failure due to tubular necrosis Current Visit: Yes Status: Acute Plan to address problem: Acute renal failure / acute tubular necrosis nonoliguric with improving urine output. Still with volume overload but improving with fluid removal on dialysis and diuresis. Kidney indices are unchanged. Patient in negative fluid balance. We will continue to hold dialysis for now and monitor for further signs of renal recovery. (2) Hypernatremia Current Visit: Yes Status: Acute Plan to address problem: Increase free water via the feeding tube. We'll need to start D5W if still worsening. Follow-up sodium (3) Hemorrhagic shock Current Visit: Yes Status: Acute Plan to address problem: Status post multiple transfusions. Appears to be resolving. Follow-up hemoglobin (4) Hyperkalemia Current Visit: Yes Status: Acute Plan to address problem: Potassium improved. Labs pending this morning Follow-up level (5) Hypocalcemia Current Visit: Yes Status: Acute Plan to address problem: Supplemental calcium as indicated. (6) Metabolic acidosis Current Visit: Yes Status: Acute Plan to address problem: Bicarbonate has improved. Follow bicarbonate level (7) Atherosclerosis of [place] arteries of extremity with intermittent claudication Current Visit: No Status: Acute Plan to address problem: Continue management per vascular surgeon (8) Anemia Current Visit: Yes Status: Acute Plan to address problem: Follow-up hemoglobin. Consider packed red blood cell transfusion Subjective Date of service: 08/20/17 Principal diagnosis: Acute Hypoxemic Respiratory Failure; Hemorrhagic Shock; WILLIAM on Dilaysis;PVD Interval history: Patient seen lying in bed in intensive care unit. He is intubated on the ventilator. He moves on stimulation. He is not following commands. 1.8 L negative fluid balance yesterday Objective - Exam Narrative Exam: Middle aged male lying in bed intubated on ventilator HEENT: NCAT, endotracheal tube intact, orogastric tube intact Neck: Supple, no venous distention CVS: S1S2 RRR with no murmur, rub or gallop Chest: Clear to auscultation Abdomen: Distended, soft to firm, nontender, no organomegaly, bowel sounds are present Extremities: 2+ pitting edema, no cyanosis. Skin warm and dry with areas of ecchymoses Neuro: Moves on stimulation, not following commands - Vital Signs Vital signs: Vital Signs - 12hr 04/08/19/17 08/19/17 21:00 21:30 21:47 Temperature Pulse Rate 107 H 105 H 116 H Pulse Rate [ From Monitor] Respiratory 28 H 26 H Rate Blood Pressure 164/80 164/80 180/97 O2 Sat by Pulse 91 91 Oximetry 08/19/17 08/19/17 08/19/17 21:50 22:00 22:12 Temperature Pulse Rate 118 H 107 H 105 H Pulse Rate [ From Monitor] Respiratory 28 H 16 26 H Rate Blood Pressure 180/87 180/87 O2 Sat by Pulse 91 Oximetry 08/19/17 08/19/17 08/19/17 22:30 23:00 23:30 Temperature Pulse Rate 110 H 106 H 108 H Pulse Rate [ From Monitor] Respiratory 20 27 H 26 H Rate Blood Pressure O2 Sat by Pulse 93 93 Oximetry 08/20/17 08/20/17 08/20/17 00:00 00:15 00:30 Temperature 100.8 F H Pulse Rate 107 H 111 H 116 H Pulse Rate [ From Monitor] Respiratory 28 H 25 H Rate Blood Pressure O2 Sat by Pulse 89 93 91 Oximetry 08/20/17 08/20/17 08/20/17 01:00 01:30 02:00 Temperature Pulse Rate 115 H 116 H 115 H Pulse Rate [ From Monitor] Respiratory 26 H 27 H 28 H Rate Blood Pressure O2 Sat by Pulse 94 95 94 Oximetry 08/20/17 08/20/17 08/20/17 02:22 02:30 03:00 Temperature Pulse Rate 105 H 108 H 115 H Pulse Rate [ From Monitor] Respiratory 23 27 H 28 H Rate Blood Pressure 187/68 O2 Sat by Pulse 95 94 Oximetry 08/20/17 08/20/17 08/20/17 03:30 04:00 04:21 Temperature 100.9 F H Pulse Rate 111 H 101 H 107 H Pulse Rate [ From Monitor] Respiratory 27 H 27 H Rate Blood Pressure 157/76 O2 Sat by Pulse 95 95 95 Oximetry 08/20/17 08/20/17 08/20/17 04:30 05:00 05:30 Temperature Pulse Rate 112 H 114 H 115 H Pulse Rate [ From Monitor] Respiratory 26 H 27 H 25 H Rate Blood Pressure 157/76 157/76 O2 Sat by Pulse 95 93 95 Oximetry 08/20/17 08/20/17 08/20/17 06:00 06:30 07:00 Temperature Pulse Rate 113 H 112 H 117 H Pulse Rate [ From Monitor] Respiratory 26 H 22 27 H Rate Blood Pressure 159/87 159/87 O2 Sat by Pulse 95 95 94 Oximetry 08/20/17 08/20/17 07:30 08:00 Temperature 98.9 F Pulse Rate 108 H 117 H Pulse Rate [ 117 H From Monitor] Respiratory 28 H 28 H Rate Blood Pressure 173/73 173/73 O2 Sat by Pulse 96 95 Oximetry - Lab 08/20/17 04:45 08/20/17 04:45 Most recent lab results Calcium 8.8 mg/dL (8.4-10.2) 08/20/17 04:45
[2017-08-20] MEDS: ATIVAN IV PRN (08:45)
[2017-08-20] MEDS: [UNRECOGNIZED DRUG - OTHER] OS SCH (08:49)
[2017-08-20] MEDS: PEPCID PO SCH ×2 (09:01→22:05)
[2017-08-20] MEDS: VITAMIN B-1 PO SCH (09:01)
[2017-08-20] MEDS: COREG PO SCH ×2 (09:01→22:06)
[2017-08-20] MEDS: Centrum Liq PO SCH (09:02)
[2017-08-20] MEDS: PAXIL PO SCH (09:02)
[2017-08-20] MEDS: HALFPRIN EC PO SCH (09:02)
[2017-08-20] MEDS: DOXYCYCLINE HYCLATE 100 MG in NACL 0.9% 250ML 250 ML IV SCH (09:02)
[2017-08-20] MEDS: FOLVITE PO SCH (09:02)
--- NOTE | 2017-08-20 09:52 | Progress Note ---
Assessment and Plan Assessment and plan: Patient is 66 year old male with past medical history of hypertension, Type 2 DM , hyperlipidemia, CAD, PAD, who underwent elective vascular procedure for [employer] , and is postop femoral endarterectomy and iliac artery stenting. Patient became hypotensive, giv multiple fluid resuscitation and blood products. Also began to exhibit some altered mental status for which were consulted. Acute hypoxic respiratory failure patient remains intubated unable to wean down secondary to altered mental status. Attempt to wean sedation patient developed agitation. Patient's cognition is not improved enough for extubation attempt at this particular time. Pulmonology following. Vasogenic shock, now resolved -at present blood pressure is stable. Acute kidney injury secondary to ATN, shock oliguria. Patient now on hemodialysis prn, managed by Nephrology. Metabolic acidosis resolving Thrombocytopenia , now resolved.Platelet count 154 today. PVD status post common femoral endarterectomy followed for vascular surgery Acute Blood loss anemia- s/p massive blood transfuison. Total 14 Units PRBC Diabetes fairly well controlled with insulin sliding scale would not change at this particular time Hypertension. Will add Hydralazine.. Acute toxic metabolic Encephalopathy: Off sedation and not following commands, Neurology consulted The high probability of a clinically significant, sudden or life threatening deterioration of the [4] system(s) required my full and direct attention, intervention and personal management. The aggregate critical care time was [32] minutes. This time is in addition to time spent performing reported procedures but includes the following: [x] Data Review and interpretation [x] Patient assessment and monitoring of vital signs [x] Documentation [x] Medication orders and management History Interval history: Patient still intubated, Hospitalist Physical - Physical exam Narrative exam: General:Not in acute distress, lying in bed,morbidly obese,intubated HEENT:Normocephalic, atraumatic Lungs:Clear to auscultation bilaterally , no rales , no wheeze Heart:S1 and S2 regular, no murmurs, rubs or gallop Abd: soft, non tender, non distended, normal bowel sounds Ext: leg edema, no clubbing or cyanosis Neuro: Intubated, opens eyes, does not follow commands - Constitutional Vitals: Temp Pulse Resp BP Pulse Ox 98.9 F 113 H 28 H 130/51 95 08/20/17 08:43 08/20/17 09:01 08/20/17 08:00 08/20/17 09:01 08/20/17 08:00 General appearance: Present: no acute distress, obese Results - Labs CBC & Chem 7: 08/20/17 04:45 08/20/17 04:45 Labs: Laboratory Last Values WBC 14.4 K/mm3 (4.5-11.0) H 08/20/17 04:45 RBC 2.97 M/mm3 (3.65-5.03) L 08/20/17 04:45 Hgb 8.9 gm/dl (11.8-15.2) L 08/20/17 04:45 POC Hgb 8.5 (12-17) L 08/11/17 14:39 Hct 26.9 % (35.5-45.6) L 08/20/17 04:45 POC Hct 25 (38-51) L 08/11/17 14:39 MCV 91 fl (84-94) 08/20/17 04:45 MCH 30 pg (28-32) 08/20/17 04:45 MCHC 33 % (32-34) 08/20/17 04:45 RDW 16.8 % (13.2-15.2) H 08/20/17 04:45 Plt Count 154 K/mm3 (140-440) D 08/20/17 04:45 Lymph % (Auto) 6.6 % (13.4-35.0) L 08/16/17 04:42 [place] % (Auto) 10.1 % (0.0-7.3) H 08/16/17 04:42 Eos % (Auto) 0.1 % (0.0-4.3) 08/16/17 04:42 Baso % (Auto) 0.1 % (0.0-1.8) 08/16/17 04:42 Lymph # 0.9 K/mm3 (1.2-5.4) L 08/16/17 04:42 [place] # 1.4 K/mm3 (0.0-0.8) H 08/16/17 04:42 Eos # 0.0 K/mm3 (0.0-0.4) 08/16/17 04:42 Baso # 0.0 K/mm3 (0.0-0.1) 08/16/17 04:42 Seg Neutrophils % 83.1 % (40.0-70.0) H 08/16/17 04:42 Seg Neutrophils # 11.8 K/mm3 (1.8-7.7) H 08/16/17 04:42 PT 15.7 Sec. (12.2-14.9) H 08/14/17 05:00 INR 1.18 (0.87-1.13) H 08/14/17 05:00 APTT 31.7 Sec. (24.2-36.6) 08/14/17 05:00 Activated Clotting Time 164 (74-137) H 08/11/17 14:46 Fibrinogen 424 mg/dl (211-480) 08/14/17 05:00 D-Dimer 950.64 ng/mlDDU (0-234) H 08/14/17 05:00 Heparin Anti-Xa Level < 0.10 U.I./ml (0.3-0.7) L 08/12/17 21:50 Heparin Anti-Xa, Unfract Negative (Negative) 08/13/17 05:46 POC ABG pH 7.497 (7.35-7.45) H 08/20/17 04:26 POC ABG pCO2 33.4 (35-45) L 08/20/17 04:26 POC ABG pO2 68 (80-105) L 08/20/17 04:26 POC ABG HCO3 25.9 08/20/17 04:26 POC ABG Total CO2 27 08/20/17 04:26 POC ABG O2 Sat 95 08/20/17 04:26 POC ABG Base Excess 3 08/20/17 04:26 POC Sodium 142 mmol/L (138-146) 08/11/17 14:39 POC Potassium 4.2 (3.5-4.9) 08/11/17 14:39 POC Chloride 109 (98-109) 08/11/17 14:39 FiO2 40 % 08/20/17 04:26 Sodium 153 mmol/L (137-145) H 08/20/17 04:45 Potassium 3.6 mmol/L (3.6-5.0) 08/20/17 04:45 Chloride 112.8 mmol/L (98-107) H 08/20/17 04:45 Carbon Dioxide 26 mmol/L (22-30) 08/20/17 04:45 Anion Gap 18 mmol/L 08/20/17 04:45 POC BUN 13 mg/dl (8-26) 08/11/17 14:39 BUN 71 mg/dL (9-20) H 08/20/17 04:45 Creatinine 1.7 mg/dL (0.8-1.5) H 08/20/17 04:45 Estimated GFR 40 ml/min 08/20/17 04:45 BUN/Creatinine Ratio 42 % 08/20/17 04:45 Glucose 244 mg/dL (75-100) H 08/20/17 04:45 POC Glucose 224 (70-105) H 08/20/17 05:42 Lactic Acid 1.70 mmol/L (0.7-2.0) 08/14/17 05:00 Calcium 8.8 mg/dL (8.4-10.2) 08/20/17 04:45 Total Bilirubin 1.40 mg/dL (0.1-1.2) H 08/17/17 04:30 AST 99 units/L (5-40) H 08/17/17 04:30 ALT 93 units/L (7-56) H 08/17/17 04:30 Alkaline Phosphatase 86 units/L (35-129) 08/17/17 04:30 C-Reactive Protein 13.90 mg/dL (0.00-1.30) H 08/18/17 08:20 Total Protein 5.6 g/dL (6.3-8.2) L D 08/17/17 04:30 Albumin 3.1 g/dL (3.9-5) L 08/17/17 04:30 Albumin/Globulin Ratio 1.2 % 08/17/17 04:30 Serotonin Release Assay See scanned report 08/13/17 05:46 Urine Color Red (Yellow) 08/12/17 18:30 Urine Turbidity Hazy (Clear) 08/12/17 18:30 Urine pH 5.0 (5.0-7.0) 08/12/17 18:30 Ur Specific [place] 1.051 (1.003-1.030) H 08/12/17 18:30 Urine Protein 100 mg/dl mg/dL (Negative) 08/12/17 18:30 Urine Glucose (UA) 50 mg/dL (Negative) 08/12/17 18:30 Urine Ketones Neg mg/dL (Negative) 08/12/17 18:30 Urine Blood Lg (Negative) 08/12/17 18:30 Urine Nitrite Neg (Negative) 08/12/17 18:30 Urine Bilirubin Neg (Negative) 08/12/17 18:30 Urine Urobilinogen < 2.0 mg/dL (<2.0) 08/12/17 18:30 Ur Leukocyte Esterase Tr (Negative) 08/12/17 18:30 Urine WBC (Auto) > 182.0 /HPF (0.0-6.0) H 08/12/17 18:30 Urine RBC (Auto) > 182.0 /HPF (0.0-6.0) 08/12/17 18:30 Urine Mucus 1+ /HPF 08/12/17 18:30 Heparin-induced Plt Ab Negative (Negative) 08/13/17 05:46 UF Heparin High Dose 0 % Release 08/13/17 05:46 SORIN UFH Low Dose 0.1 0 % Release 08/13/17 05:46 SORIN UFH Low Dose 0.5 0 % Release 08/13/17 05:46 Hepatitis A IgM Ab Non-reactive (NonReactive) 08/13/17 15:35 Hep Bs Antigen Non-reactive (Negative) 08/13/17 15:35 Hep B Core IgM Ab Non-reactive (NonReactive) 08/13/17 15:35 Hepatitis C Antibody Non-reactive (NonReactive) 08/13/17 15:35 Miscellaneous Test Tnp 08/13/17 07:50 Blood Type O POSITIVE 08/19/17 08:26 Antibody Screen Negative 08/19/17 08:26 Crossmatch See Detail 08/19/17 08:26
--- NOTE | 2017-08-20 10:21 | Hem/Onc Progress Note ---
Assessment and Plan Platelets have almost normalized. CBC stable. Continue to monitor. Heparin- induced, thrombocytopenia assay negative Subjective Date of service: 08/20/17 Interval history: Patient on ventilator. No active bleeding. Objective - Exam Narrative Exam: On ventilator - Constitutional Vitals: Last Vital Signs Temp 98.9 F 08/20/17 08:43 Pulse 113 H 08/20/17 09:01 Resp 28 H 08/20/17 08:00 BP 130/51 08/20/17 09:01 Pulse Ox 95 08/20/17 08:00 - Neck Neck: supple - Respiratory Respiratory effort: Positive: normal - Cardiovascular Rhythm: regular Extremities: abnormal (warm to touch. SCDs present) - Gastrointestinal General gastrointestinal: Present: distended (better) - Labs Lab Results: Laboratory Results - last 24 hr 08/13/17 08/19/17 08/19/17 05:46 09:45 11:05 WBC RBC Hgb 8.8 L D Hct 26.7 L D MCV MCH MCHC RDW Plt Count POC ABG pH POC ABG pCO2 POC ABG pO2 POC ABG HCO3 POC ABG Total CO2 POC ABG O2 Sat POC ABG Base Excess FiO2 Sodium 151 H Potassium 3.3 L Chloride 112.5 H Carbon Dioxide 23 Anion Gap 19 BUN 65 H Creatinine 1.6 H Estimated GFR 43 BUN/Creatinine Ratio 41 Glucose 145 H POC Glucose Calcium 7.9 L Serotonin Release Assay See scanned report 08/19/17 08/19/17 08/19/17 11:34 18:02 23:37 WBC RBC Hgb Hct MCV MCH MCHC RDW Plt Count POC ABG pH POC ABG pCO2 POC ABG pO2 POC ABG HCO3 POC ABG Total CO2 POC ABG O2 Sat POC ABG Base Excess FiO2 Sodium Potassium Chloride Carbon Dioxide Anion Gap BUN Creatinine Estimated GFR BUN/Creatinine Ratio Glucose POC Glucose 166 H 224 H 222 H Calcium Serotonin Release Assay 08/20/17 08/20/17 08/20/17 04:26 04:45 04:45 WBC 14.4 H RBC 2.97 L Hgb 8.9 L Hct 26.9 L MCV 91 MCH 30 MCHC 33 RDW 16.8 H Plt Count 154 D POC ABG pH 7.497 H POC ABG pCO2 33.4 L POC ABG pO2 68 L POC ABG HCO3 25.9 POC ABG Total CO2 27 POC ABG O2 Sat 95 POC ABG Base Excess 3 FiO2 40 Sodium 153 H Potassium 3.6 Chloride 112.8 H Carbon Dioxide 26 Anion Gap 18 BUN 71 H Creatinine 1.7 H Estimated GFR 40 BUN/Creatinine Ratio 42 Glucose 244 H POC Glucose Calcium 8.8 Serotonin Release Assay 08/20/17 05:42 WBC RBC Hgb Hct MCV MCH MCHC RDW Plt Count POC ABG pH POC ABG pCO2 POC ABG pO2 POC ABG HCO3 POC ABG Total CO2 POC ABG O2 Sat POC ABG Base Excess FiO2 Sodium Potassium Chloride Carbon Dioxide Anion Gap BUN Creatinine Estimated GFR BUN/Creatinine Ratio Glucose POC Glucose 224 H Calcium Serotonin Release Assay
[2017-08-20] MEDS ORDERED: APRESOLINE IV PRN (12:11)
[2017-08-20] MEDS: LANTUS SUB-Q SCH (12:51)
[2017-08-20] MEDS: NORVASC PO SCH (12:51)
[2017-08-20] MEDS: SENOKOT S PO SCH ×2 (12:51→22:06)
--- NOTE | 2017-08-20 13:10 | Progress Note ---
Assessment and Plan Acute Hypoxic Respiratory failure Vasogenic Shock, Presumed Bleed WILLIAM Secondary to vasomotor nephropathy Severe Metabolic Acidosis Acute blood loss anemia PVD s/p right femoral end-arterectomy Acute encephalopathy s/p Massive blood transfusion Leukocytosis Tobacco abuse disorder/Nicotine dependence -Continue VAP bundle -VTE prophylaxis (SCDs on for now) -Daily SBTs and SATs as tolerated -Agitation and analgesia management -Stress ulcer prophylaxis -Continue with full ventilatory support, PEEP increased -Enteric nutrition -Wean vasopressor support for MAP>65 -Antibiotics per ID -UF/HD per Renal service -Continue with barrientos catheter for accurate Is and Os -CXR and ABG in the morning and prn -Monitor CBC and trend Hgb and WCC and son updated at the bedside Remains full code Subjective Date of service: 08/20/17 Principal diagnosis: Acute Hypoxemic Respiratory Failure; Hemorrhagic Shock; WILLIAM on Dilaysis;PVD Interval history: Seen and examined at bedside; 24 hour events reviewed; Vitals, labs, medications, chart reviewed. Remains on MVS; AMS is persistent, still agitated during SAT's and non purposeful No fevers overnight. Discussed with RT and RN Discussed during interdisciplinary rounds Objective - Exam Narrative Exam: VITAL SIGNS: Reviewed. GENERAL: The patient appeared ill, moderate obese comfortable vital signs as documented. ET to ventilator, some tachypnea, no dys-synchrony HEAD: No signs of head trauma. EYES: Pupils are equal. Extraocular motions intact. MOUTH: Oropharynx is normal. NECK: No adenopathy, no JVD. CHEST: Chest with decreased AE bilaterally with rhonchi CARDIAC: Regular rate and rhythm. S1 and S2, without murmurs, gallops, or rubs. VASCULAR: Edema bilaterally lower extremity, Peripheral pulses normal and equal in all extremities. ABDOMEN: Soft, without detectable tenderness. Distended and tympanic . No rebound or guarding, and no masses palpated. Bowel Sounds normal. MUSCULOSKELETAL: Good range of motion of all major joints. Bilateral extremity edema. NEUROLOGIC EXAM: Non focal SKIN: Ecchymosis of the right femoral area. Vital Signs - 12hr 08/20/17 08/20/17 08/20/17 01:30 02:00 02:22 Temperature Pulse Rate 116 H 115 H 105 H Pulse Rate [ From Monitor] Respiratory 27 H 28 H 23 Rate Blood Pressure 187/68 O2 Sat by Pulse 95 94 Oximetry 08/20/17 08/20/17 08/20/17 02:30 03:00 03:30 Temperature Pulse Rate 108 H 115 H 111 H Pulse Rate [ From Monitor] Respiratory 27 H 28 H 27 H Rate Blood Pressure O2 Sat by Pulse 95 94 95 Oximetry 08/20/17 08/20/17 08/20/17 04:00 04:21 04:30 Temperature 100.9 F H Pulse Rate 101 H 107 H 112 H Pulse Rate [ From Monitor] Respiratory 27 H 26 H Rate Blood Pressure 157/76 157/76 O2 Sat by Pulse 95 95 95 Oximetry 08/20/17 08/20/17 08/20/17 05:00 05:30 06:00 Temperature Pulse Rate 114 H 115 H 113 H Pulse Rate [ From Monitor] Respiratory 27 H 25 H 26 H Rate Blood Pressure 157/76 O2 Sat by Pulse 93 95 95 Oximetry 08/20/17 08/20/17 08/20/17 06:30 07:00 07:30 Temperature Pulse Rate 112 H 117 H 108 H Pulse Rate [ From Monitor] Respiratory 22 27 H 28 H Rate Blood Pressure 159/87 159/87 173/73 O2 Sat by Pulse 95 94 96 Oximetry 08/20/17 08/20/17 08/20/17 08:00 08:30 08:43 Temperature 98.9 F 98.9 F Pulse Rate 117 H 120 H Pulse Rate [ 117 H From Monitor] Respiratory 28 H 19 Rate Blood Pressure 173/73 180/70 O2 Sat by Pulse 95 96 Oximetry 08/20/17 08/20/17 08/20/17 08:45 09:00 09:01 Temperature Pulse Rate 112 H 107 H 113 H Pulse Rate [ From Monitor] Respiratory 22 Rate Blood Pressure 180/70 180/70 130/51 O2 Sat by Pulse Oximetry 08/20/17 08/20/17 08/20/17 09:30 10:00 10:20 Temperature Pulse Rate 110 H 105 H 114 H Pulse Rate [ From Monitor] Respiratory 26 H 25 H Rate Blood Pressure 127/60 127/60 164/87 O2 Sat by Pulse 96 96 Oximetry 08/20/17 08/20/17 08/20/17 10:30 11:00 11:50 Temperature Pulse Rate 109 H 114 H 114 H Pulse Rate [ From Monitor] Respiratory 25 H 25 H Rate Blood Pressure 161/74 164/87 164/87 O2 Sat by Pulse 97 95 96 Oximetry 04/26/18 04/26/18 12:00 12:51 Temperature 98.4 F Pulse Rate 112 H Pulse Rate [ From Monitor] Respiratory 40 H Rate Blood Pressure 164/87 159/77 O2 Sat by Pulse 94 Oximetry Constitutional: appears uncomfortable, other (obese) Eyes: non-icteric ENT: oropharynx moist, oropharyngeal exudate pre, other (large neck circumference) Neck: supple, no lymphadenopathy, no JVD, other (RIJ CVL & VasCath) Effort: mildly labored Ascultation: Bilateral: diminished breath sounds, rales Percussion: Bilateral: not dull Cardiovascular: regular rate and rhythm, other (No R/M) Gastrointestinal: hypoactive bowel sounds, soft, non-tender, non-distended, other (no palpable HSM) Integumentary: other (post-op scars) Extremities: no cyanosis, pink and warm, no ischemia or petechiae, edema Neurologic: non-focal exam (grossly), unable to assess Psychiatric: other (unable to assess) CBC and BMP: 08/20/17 04:45 08/20/17 04:45 ABG, PT/INR, D-dimer: ABG POC ABG pH 7.497 (7.35-7.45) H 08/20/17 04:26 POC ABG pCO2 33.4 (35-45) L 08/20/17 04:26 POC ABG pO2 68 (80-105) L 08/20/17 04:26 POC ABG HCO3 25.9 08/20/17 04:26 POC ABG Total CO2 27 08/20/17 04:26 POC ABG O2 Sat 95 08/20/17 04:26 PT/INR, D-dimer PT 15.7 Sec. (12.2-14.9) H 08/14/17 05:00 INR 1.18 (0.87-1.13) H 08/14/17 05:00 D-Dimer 950.64 ng/mlDDU (0-234) H 08/14/17 05:00 Abnormal lab findings: Abnormal Labs 08/10/17 08/10/17 08/10/17 10:05 10:05 10:05 WBC RBC Hgb POC Hgb Hct POC Hct MCV 97 H MCH 33 H RDW Plt Count Lymph % (Auto) [place] % (Auto) Lymph # [place] # Seg Neutrophils % 72.9 H Seg Neutrophils # PT 11.6 L INR 0.81 L APTT Activated Clotting Time D-Dimer Heparin Anti-Xa Level POC ABG pH POC ABG pCO2 POC ABG pO2 Sodium Potassium Chloride Carbon Dioxide BUN Creatinine 0.7 L Glucose 196 H POC Glucose Lactic Acid Calcium Total Bilirubin AST ALT C-Reactive Protein Total Protein Albumin Ur Specific [place] Urine WBC (Auto) Crossmatch 08/11/17 08/11/17 08/11/17 06:50 07:03 09:50 WBC RBC Hgb POC Hgb Hct POC Hct MCV MCH RDW Plt Count Lymph % (Auto) [place] % (Auto) Lymph # [place] # Seg Neutrophils % Seg Neutrophils # PT INR APTT Activated Clotting Time D-Dimer Heparin Anti-Xa Level POC ABG pH 7.270 L POC ABG pCO2 49.1 H POC ABG pO2 117 H Sodium Potassium Chloride Carbon Dioxide BUN Creatinine Glucose POC Glucose 160 H Lactic Acid Calcium Total Bilirubin AST ALT C-Reactive Protein Total Protein Albumin Ur Specific [place] Urine WBC (Auto) Crossmatch See Detail 08/11/17 08/11/17 08/11/17 10:52 11:12 12:16 WBC RBC Hgb POC Hgb Hct POC Hct MCV MCH RDW Plt Count Lymph % (Auto) [place] % (Auto) Lymph # [place] # Seg Neutrophils % Seg Neutrophils # PT INR APTT Activated Clotting Time 191 H 153 H D-Dimer Heparin Anti-Xa Level POC ABG pH POC ABG pCO2 POC ABG pO2 Sodium Potassium Chloride Carbon Dioxide BUN Creatinine Glucose POC Glucose 176 H Lactic Acid Calcium Total Bilirubin AST ALT C-Reactive Protein Total Protein Albumin Ur Specific [place] Urine WBC (Auto) Crossmatch 08/11/17 08/11/17 08/11/17 12:27 13:07 14:39 WBC RBC Hgb POC Hgb 9.9 L 8.5 L Hct POC Hct 29 L 25 L MCV MCH RDW Plt Count Lymph % (Auto) [place] % (Auto) Lymph # [place] # Seg Neutrophils % Seg Neutrophils # PT INR APTT Activated Clotting Time 186 H D-Dimer Heparin Anti-Xa Level POC ABG pH POC ABG pCO2 POC ABG pO2 Sodium Potassium Chloride Carbon Dioxide BUN Creatinine Glucose POC Glucose 183 H 197 H Lactic Acid Calcium Total Bilirubin AST ALT C-Reactive Protein Total Protein Albumin Ur Specific [place] Urine WBC (Auto) Crossmatch 08/11/17 08/11/17 08/11/17 14:46 16:18 17:57 WBC 12.7 H RBC 3.00 L Hgb 9.5 L D POC Hgb Hct 28.3 L D POC Hct MCV MCH RDW 16.3 H Plt Count 105 L Lymph % (Auto) 6.7 L [place] % (Auto) Lymph # 0.8 L [place] # Seg Neutrophils % 86.3 H Seg Neutrophils # 10.9 H PT INR APTT Activated Clotting Time 164 H D-Dimer Heparin Anti-Xa Level POC ABG pH POC ABG pCO2 POC ABG pO2 Sodium Potassium Chloride Carbon Dioxide BUN Creatinine Glucose POC Glucose 192 H Lactic Acid Calcium Total Bilirubin AST ALT C-Reactive Protein Total Protein Albumin Ur Specific [place] Urine WBC (Auto) Crossmatch 08/11/17 08/11/17 08/11/17 17:57 20:00 20:00 WBC RBC Hgb 10.2 L POC Hgb Hct 31.1 L POC Hct MCV MCH RDW Plt Count 117 L Lymph % (Auto) [place] % (Auto) Lymph # [place] # Seg Neutrophils % Seg Neutrophils # PT 15.3 H INR 1.15 H APTT 97.7 H* Activated Clotting Time D-Dimer Heparin Anti-Xa Level POC ABG pH POC ABG pCO2 POC ABG pO2 Sodium Potassium Chloride 117.4 H Carbon Dioxide 18 L BUN Creatinine 0.7 L Glucose 143 H POC Glucose Lactic Acid Calcium 6.4 L D Total Bilirubin AST ALT C-Reactive Protein Total Protein Albumin Ur Specific [place] Urine WBC (Auto) Crossmatch 08/12/17 08/12/17 08/12/17 03:30 03:50 03:50 WBC RBC Hgb 9.2 L 9.1 L POC Hgb Hct 27.5 L 27.2 L POC Hct MCV MCH RDW Plt Count Lymph % (Auto) [place] % (Auto) Lymph # [place] # Seg Neutrophils % Seg Neutrophils # PT INR APTT Activated Clotting Time D-Dimer Heparin Anti-Xa Level POC ABG pH POC ABG pCO2 POC ABG pO2 Sodium Potassium Chloride 113.5 H Carbon Dioxide 13 L BUN Creatinine Glucose 243 H POC Glucose Lactic Acid Calcium 6.3 L Total Bilirubin AST ALT C-Reactive Protein Total Protein Albumin Ur Specific [place] Urine WBC (Auto) Crossmatch 08/12/17 08/12/17 08/12/17 07:36 08:48 16:16 WBC RBC Hgb POC Hgb Hct POC Hct MCV MCH RDW Plt Count Lymph % (Auto) [place] % (Auto) Lymph # [place] # Seg Neutrophils % Seg Neutrophils # PT INR APTT Activated Clotting Time D-Dimer Heparin Anti-Xa Level POC ABG pH 6.952 L 7.159 L POC ABG pCO2 49.1 H 47.8 H POC ABG pO2 76 L 106 H Sodium Potassium Chloride Carbon Dioxide BUN Creatinine Glucose POC Glucose 246 H Lactic Acid Calcium Total Bilirubin AST ALT C-Reactive Protein Total Protein Albumin Ur Specific [place] Urine WBC (Auto) Crossmatch 08/12/17 08/12/17 08/12/17 17:54 18:30 20:15 WBC 17.9 H RBC 3.29 L Hgb 10.0 L POC Hgb Hct 29.3 L POC Hct MCV MCH RDW 15.5 H Plt Count 76 L Lymph % (Auto) [place] % (Auto) Lymph # [place] # Seg Neutrophils % Seg Neutrophils # PT INR APTT Activated Clotting Time D-Dimer Heparin Anti-Xa Level POC ABG pH POC ABG pCO2 POC ABG pO2 Sodium Potassium Chloride Carbon Dioxide BUN Creatinine Glucose POC Glucose 240 H Lactic Acid Calcium Total Bilirubin AST ALT C-Reactive Protein Total Protein Albumin Ur Specific [place] 1.051 H Urine WBC (Auto) > 182.0 H Crossmatch 08/12/17 08/12/17 08/13/17 21:50 21:50 03:20 WBC RBC Hgb POC Hgb Hct POC Hct MCV MCH RDW Plt Count Lymph % (Auto) [place] % (Auto) Lymph # [place] # Seg Neutrophils % Seg Neutrophils # PT INR APTT Activated Clotting Time D-Dimer Heparin Anti-Xa Level < 0.10 L POC ABG pH POC ABG pCO2 POC ABG pO2 Sodium Potassium 5.4 H Chloride 110.8 H Carbon Dioxide 18 L BUN 30 H Creatinine 2.5 H D Glucose 216 H POC Glucose 235 H Lactic Acid Calcium 5.7 L* Total Bilirubin AST ALT C-Reactive Protein Total Protein Albumin Ur Specific [place] Urine WBC (Auto) Crossmatch 08/13/17 08/13/17 08/13/17 05:46 05:46 06:06 WBC 14.6 H RBC 2.49 L Hgb 7.6 L POC Hgb Hct 22.3 L D POC Hct MCV MCH RDW 15.7 H Plt Count 78 L Lymph % (Auto) 10.3 L [place] % (Auto) Lymph # [place] # Seg Neutrophils % 84.1 H Seg Neutrophils # 12.3 H PT INR APTT Activated Clotting Time D-Dimer Heparin Anti-Xa Level POC ABG pH 7.282 L POC ABG pCO2 POC ABG pO2 Sodium Potassium Chloride 107.5 H Carbon Dioxide 19 L BUN 35 H Creatinine 2.9 H Glucose 242 H POC Glucose Lactic Acid Calcium 6.3 L Total Bilirubin AST 1304 H ALT 533 H C-Reactive Protein Total Protein 4.4 L Albumin 2.8 L Ur Specific [place] Urine WBC (Auto) Crossmatch 08/13/17 08/13/17 08/13/17 07:10 07:10 09:00 WBC RBC Hgb POC Hgb Hct POC Hct MCV MCH RDW Plt Count Lymph % (Auto) [place] % (Auto) Lymph # [place] # Seg Neutrophils % Seg Neutrophils # PT 17.4 H INR 1.35 H APTT Activated Clotting Time D-Dimer 598.44 H Heparin Anti-Xa Level POC ABG pH POC ABG pCO2 POC ABG pO2 Sodium Potassium Chloride 107.2 H Carbon Dioxide 19 L BUN 35 H Creatinine 2.8 H Glucose 240 H POC Glucose Lactic Acid 3.10 H* Calcium 6.2 L Total Bilirubin AST ALT C-Reactive Protein Total Protein Albumin Ur Specific [place] Urine WBC (Auto) Crossmatch 08/13/17 08/13/17 08/13/17 17:55 18:31 21:19 WBC RBC Hgb POC Hgb Hct POC Hct MCV MCH RDW Plt Count Lymph % (Auto) [place] % (Auto) Lymph # [place] # Seg Neutrophils % Seg Neutrophils # PT INR APTT Activated Clotting Time D-Dimer Heparin Anti-Xa Level POC ABG pH 7.451 H POC ABG pCO2 33.0 L POC ABG pO2 53 L Sodium Potassium Chloride Carbon Dioxide BUN Creatinine Glucose POC Glucose 247 H Lactic Acid 2.20 H* Calcium Total Bilirubin AST ALT C-Reactive Protein Total Protein Albumin Ur Specific [place] Urine WBC (Auto) Crossmatch 08/13/17 08/14/17 08/14/17 23:34 00:10 05:00 WBC RBC Hgb POC Hgb Hct POC Hct MCV MCH RDW Plt Count Lymph % (Auto) [place] % (Auto) Lymph # [place] # Seg Neutrophils % Seg Neutrophils # PT 15.7 H INR 1.18 H APTT Activated Clotting Time D-Dimer 950.64 H Heparin Anti-Xa Level POC ABG pH POC ABG pCO2 POC ABG pO2 Sodium Potassium Chloride Carbon Dioxide BUN Creatinine Glucose POC Glucose 237 H Lactic Acid 2.70 H* Calcium Total Bilirubin AST ALT C-Reactive Protein Total Protein Albumin Ur Specific [place] Urine WBC (Auto) Crossmatch 08/14/17 08/14/17 08/14/17 05:00 05:11 10:26 WBC 14.2 H RBC 2.66 L Hgb 7.9 L POC Hgb Hct 23.2 L POC Hct MCV MCH RDW 16.0 H Plt Count 75 L Lymph % (Auto) [place] % (Auto) Lymph # [place] # Seg Neutrophils % Seg Neutrophils # PT INR APTT Activated Clotting Time D-Dimer Heparin Anti-Xa Level POC ABG pH POC ABG pCO2 POC ABG pO2 78 L Sodium Potassium Chloride Carbon Dioxide BUN Creatinine Glucose POC Glucose 227 H Lactic Acid Calcium Total Bilirubin AST ALT C-Reactive Protein Total Protein Albumin Ur Specific [place] Urine WBC (Auto) Crossmatch 08/14/17 08/14/17 08/14/17 11:28 11:28 12:06 WBC RBC Hgb POC Hgb Hct POC Hct MCV MCH RDW Plt Count Lymph % (Auto) [place] % (Auto) Lymph # [place] # Seg Neutrophils % Seg Neutrophils # PT INR APTT Activated Clotting Time D-Dimer Heparin Anti-Xa Level POC ABG pH POC ABG pCO2 POC ABG pO2 Sodium Potassium Chloride Carbon Dioxide BUN 43 H Creatinine 3.6 H Glucose 209 H POC Glucose 219 H Lactic Acid Calcium 7.6 L D Total Bilirubin AST ALT C-Reactive Protein 29.00 H Total Protein Albumin Ur Specific [place] Urine WBC (Auto) Crossmatch 08/14/17 08/14/17 08/14/17 17:57 19:54 23:23 WBC RBC Hgb POC Hgb Hct POC Hct MCV MCH RDW Plt Count Lymph % (Auto) [place] % (Auto) Lymph # [place] # Seg Neutrophils % Seg Neutrophils # PT INR APTT Activated Clotting Time D-Dimer Heparin Anti-Xa Level POC ABG pH POC ABG pCO2 46.5 H POC ABG pO2 64 L Sodium Potassium Chloride Carbon Dioxide BUN Creatinine Glucose POC Glucose 178 H 170 H Lactic Acid Calcium Total Bilirubin AST ALT C-Reactive Protein Total Protein Albumin Ur Specific [place] Urine WBC (Auto) Crossmatch 08/15/17 08/15/17 08/15/17 03:44 04:40 05:19 WBC 12.6 H RBC 2.49 L Hgb 7.4 L POC Hgb Hct 22.1 L POC Hct MCV MCH RDW 16.5 H Plt Count 64 L Lymph % (Auto) [place] % (Auto) Lymph # [place] # Seg Neutrophils % Seg Neutrophils # PT INR APTT Activated Clotting Time D-Dimer Heparin Anti-Xa Level POC ABG pH POC ABG pCO2 48.1 H POC ABG pO2 68 L Sodium Potassium Chloride Carbon Dioxide BUN Creatinine Glucose POC Glucose 154 H Lactic Acid Calcium Total Bilirubin AST ALT C-Reactive Protein Total Protein Albumin Ur Specific [place] Urine WBC (Auto) Crossmatch 08/15/17 08/15/17 08/15/17 12:20 13:22 18:05 WBC RBC Hgb POC Hgb Hct POC Hct MCV MCH RDW Plt Count Lymph % (Auto) [place] % (Auto) Lymph # [place] # Seg Neutrophils % Seg Neutrophils # PT INR APTT Activated Clotting Time D-Dimer Heparin Anti-Xa Level POC ABG pH POC ABG pCO2 POC ABG pO2 Sodium Potassium Chloride Carbon Dioxide BUN 45 H Creatinine 4.1 H Glucose 141 H POC Glucose 147 H 170 H Lactic Acid Calcium 7.8 L Total Bilirubin AST ALT C-Reactive Protein Total Protein Albumin Ur Specific [place] Urine WBC (Auto) Crossmatch 08/15/17 08/16/17 08/16/17 23:43 04:42 05:22 WBC 14.2 H RBC 2.54 L Hgb 7.5 L POC Hgb Hct 22.6 L POC Hct MCV MCH RDW 16.4 H Plt Count 73 L Lymph % (Auto) 6.6 L [place] % (Auto) 10.1 H Lymph # 0.9 L [place] # 1.4 H Seg Neutrophils % 83.1 H Seg Neutrophils # 11.8 H PT INR APTT Activated Clotting Time D-Dimer Heparin Anti-Xa Level POC ABG pH POC ABG pCO2 POC ABG pO2 71 L Sodium Potassium Chloride Carbon Dioxide BUN Creatinine Glucose POC Glucose 155 H Lactic Acid Calcium Total Bilirubin AST ALT C-Reactive Protein Total Protein Albumin Ur Specific [place] Urine WBC (Auto) Crossmatch 08/16/17 08/16/17 08/16/17 06:20 08:49 11:54 WBC RBC Hgb POC Hgb Hct POC Hct MCV MCH RDW Plt Count Lymph % (Auto) [place] % (Auto) Lymph # [place] # Seg Neutrophils % Seg Neutrophils # PT INR APTT Activated Clotting Time D-Dimer Heparin Anti-Xa Level POC ABG pH POC ABG pCO2 POC ABG pO2 Sodium Potassium Chloride Carbon Dioxide BUN Creatinine Glucose POC Glucose 165 H 191 H 188 H Lactic Acid Calcium Total Bilirubin AST ALT C-Reactive Protein Total Protein Albumin Ur Specific [place] Urine WBC (Auto) Crossmatch 08/16/17 08/16/17 08/16/17 13:00 18:32 23:33 WBC RBC Hgb POC Hgb Hct POC Hct MCV MCH RDW Plt Count Lymph % (Auto) [place] % (Auto) Lymph # [place] # Seg Neutrophils % Seg Neutrophils # PT INR APTT Activated Clotting Time D-Dimer Heparin Anti-Xa Level POC ABG pH POC ABG pCO2 POC ABG pO2 Sodium Potassium Chloride Carbon Dioxide BUN 47 H Creatinine 3.4 H Glucose 179 H POC Glucose 219 H 179 H Lactic Acid Calcium 8.2 L Total Bilirubin AST ALT C-Reactive Protein Total Protein Albumin Ur Specific [place] Urine WBC (Auto) Crossmatch 08/17/17 08/17/17 08/17/17 04:25 04:30 05:32 WBC 15.2 H RBC 2.60 L Hgb 7.6 L POC Hgb Hct 23.8 L POC Hct MCV MCH RDW 16.3 H Plt Count 92 L Lymph % (Auto) [place] % (Auto) Lymph # [place] # Seg Neutrophils % Seg Neutrophils # PT INR APTT Activated Clotting Time D-Dimer Heparin Anti-Xa Level POC ABG pH POC ABG pCO2 POC ABG pO2 57 L Sodium Potassium Chloride Carbon Dioxide BUN 63 H Creatinine 3.4 H Glucose 155 H POC Glucose Lactic Acid Calcium 8.3 L Total Bilirubin 1.40 H AST 99 H ALT 93 H C-Reactive Protein Total Protein 5.6 L D Albumin 3.1 L Ur Specific [place] Urine WBC (Auto) Crossmatch 08/17/17 08/17/17 08/17/17 06:36 12:37 17:44 WBC RBC Hgb POC Hgb Hct POC Hct MCV MCH RDW Plt Count Lymph % (Auto) [place] % (Auto) Lymph # [place] # Seg Neutrophils % Seg Neutrophils # PT INR APTT Activated Clotting Time D-Dimer Heparin Anti-Xa Level POC ABG pH POC ABG pCO2 POC ABG pO2 Sodium Potassium Chloride Carbon Dioxide BUN Creatinine Glucose POC Glucose 167 H 203 H 158 H Lactic Acid Calcium Total Bilirubin AST ALT C-Reactive Protein Total Protein Albumin Ur Specific [place] Urine WBC (Auto) Crossmatch 08/17/17 08/18/17 08/18/17 23:55 04:30 05:57 WBC RBC 2.40 L Hgb 7.3 L POC Hgb Hct 21.8 L POC Hct MCV MCH RDW 16.3 H Plt Count 95 L Lymph % (Auto) [place] % (Auto) Lymph # [place] # Seg Neutrophils % Seg Neutrophils # PT INR APTT Activated Clotting Time D-Dimer Heparin Anti-Xa Level POC ABG pH POC ABG pCO2 POC ABG pO2 Sodium Potassium Chloride Carbon Dioxide BUN Creatinine Glucose POC Glucose 146 H 179 H Lactic Acid Calcium Total Bilirubin AST ALT C-Reactive Protein Total Protein Albumin Ur Specific [place] Urine WBC (Auto) Crossmatch 08/18/17 08/18/17 08/18/17 08:20 08:20 08:32 WBC RBC Hgb POC Hgb Hct POC Hct MCV MCH RDW Plt Count Lymph % (Auto) [place] % (Auto) Lymph # [place] # Seg Neutrophils % Seg Neutrophils # PT INR APTT Activated Clotting Time D-Dimer Heparin Anti-Xa Level POC ABG pH POC ABG pCO2 POC ABG pO2 Sodium 146 H Potassium Chloride 108.4 H Carbon Dioxide BUN 62 H Creatinine 2.4 H Glucose 125 H POC Glucose 161 H Lactic Acid Calcium Total Bilirubin AST ALT C-Reactive Protein 13.90 H Total Protein Albumin Ur Specific [place] Urine WBC (Auto) Crossmatch 08/18/17 08/18/17 08/18/17 11:33 17:18 23:31 WBC RBC Hgb POC Hgb Hct POC Hct MCV MCH RDW Plt Count Lymph % (Auto) [place] % (Auto) Lymph # [place] # Seg Neutrophils % Seg Neutrophils # PT INR APTT Activated Clotting Time D-Dimer Heparin Anti-Xa Level POC ABG pH POC ABG pCO2 POC ABG pO2 Sodium Potassium Chloride Carbon Dioxide BUN Creatinine Glucose POC Glucose 165 H 126 H 166 H Lactic Acid Calcium Total Bilirubin AST ALT C-Reactive Protein Total Protein Albumin Ur Specific [place] Urine WBC (Auto) Crossmatch 08/19/17 08/19/17 08/19/17 04:33 05:00 05:44 WBC RBC 1.69 L Hgb 5.1 L* POC Hgb Hct 15.9 L* POC Hct MCV 95 H MCH RDW 17.1 H Plt Count 75 L Lymph % (Auto) [place] % (Auto) Lymph # [place] # Seg Neutrophils % Seg Neutrophils # PT INR APTT Activated Clotting Time D-Dimer Heparin Anti-Xa Level POC ABG pH POC ABG pCO2 POC ABG pO2 65 L Sodium Potassium Chloride Carbon Dioxide BUN Creatinine Glucose POC Glucose 174 H Lactic Acid Calcium Total Bilirubin AST ALT C-Reactive Protein Total Protein Albumin Ur Specific [place] Urine WBC (Auto) Crossmatch 08/19/17 08/19/17 08/19/17 08:26 09:45 11:05 WBC RBC Hgb 8.8 L D POC Hgb Hct 26.7 L D POC Hct MCV MCH RDW Plt Count Lymph % (Auto) [place] % (Auto) Lymph # [place] # Seg Neutrophils % Seg Neutrophils # PT INR APTT Activated Clotting Time D-Dimer Heparin Anti-Xa Level POC ABG pH POC ABG pCO2 POC ABG pO2 Sodium 151 H Potassium 3.3 L Chloride 112.5 H Carbon Dioxide BUN 65 H Creatinine 1.6 H Glucose 145 H POC Glucose Lactic Acid Calcium 7.9 L Total Bilirubin AST ALT C-Reactive Protein Total Protein Albumin Ur Specific [place] Urine WBC (Auto) Crossmatch See Detail 08/19/17 08/19/17 08/19/17 11:34 18:02 23:37 WBC RBC Hgb POC Hgb Hct POC Hct MCV MCH RDW Plt Count Lymph % (Auto) [place] % (Auto) Lymph # [place] # Seg Neutrophils % Seg Neutrophils # PT INR APTT Activated Clotting Time D-Dimer Heparin Anti-Xa Level POC ABG pH POC ABG pCO2 POC ABG pO2 Sodium Potassium Chloride Carbon Dioxide BUN Creatinine Glucose POC Glucose 166 H 224 H 222 H Lactic Acid Calcium Total Bilirubin AST ALT C-Reactive Protein Total Protein Albumin Ur Specific [place] Urine WBC (Auto) Crossmatch 08/20/17 08/20/17 08/20/17 04:26 04:45 04:45 WBC 14.4 H RBC 2.97 L Hgb 8.9 L POC Hgb Hct 26.9 L POC Hct MCV MCH RDW 16.8 H Plt Count Lymph % (Auto) [place] % (Auto) Lymph # [place] # Seg Neutrophils % Seg Neutrophils # PT INR APTT Activated Clotting Time D-Dimer Heparin Anti-Xa Level POC ABG pH 7.497 H POC ABG pCO2 33.4 L POC ABG pO2 68 L Sodium 153 H Potassium Chloride 112.8 H Carbon Dioxide BUN 71 H Creatinine 1.7 H Glucose 244 H POC Glucose Lactic Acid Calcium Total Bilirubin AST ALT C-Reactive Protein Total Protein Albumin Ur Specific [place] Urine WBC (Auto) Crossmatch 08/20/17 08/20/17 05:42 12:31 WBC RBC Hgb POC Hgb Hct POC Hct MCV MCH RDW Plt Count Lymph % (Auto) [place] % (Auto) Lymph # [place] # Seg Neutrophils % Seg Neutrophils # PT INR APTT Activated Clotting Time D-Dimer Heparin Anti-Xa Level POC ABG pH POC ABG pCO2 POC ABG pO2 Sodium Potassium Chloride Carbon Dioxide BUN Creatinine Glucose POC Glucose 224 H 274 H Lactic Acid Calcium Total Bilirubin AST ALT C-Reactive Protein Total Protein Albumin Ur Specific [place] Urine WBC (Auto) Crossmatch Allied health notes reviewed: RT
--- NOTE | 2017-08-20 13:35 | Progress Note ---
Assessment and Plan Patient has leukocytosis and overnight fever. Blood cultures, urine cultures, and chest x-ray performed. Chest x-ray demonstrates right lower lobe opacity which may represent atelectasis and/or pneumonia. Management per nurse first assist. Patient has been intubated for over a week and may require trach and PEG placement. Management per nurse first assist. Discussed with nurse about removal of the arterial line as the patient is hypertensive and no longer requires invasive blood pressure measurements. Discussed with the nurse about placement of a PICC line so that the triple- lumen catheter to be removed. H&H decline was spurious secondary to laboratory error. H&H is stable. Canceled CT angiogram. Renal status per nephrology. Appreciate assistance of all consultants. Subjective Date of service: 08/20/17 Principal diagnosis: Acute Hypoxemic Respiratory Failure; Hemorrhagic Shock; WILLIAM on Dilaysis;PVD Interval history: H&H yesterday was previously decreased, but this was due to lab error. Had overnight fever and has leukocytosis. Still has arterial line, triple-lumen catheter, and dialysis catheter. Urine is not cloudy. No significant increase in respiratory settings per nurse. Objective - Constitutional Vitals: Vital Signs - 12hr 08/20/17 08/20/17 08/20/17 02:00 02:22 02:30 Temperature Pulse Rate 115 H 105 H 108 H Pulse Rate [ From Monitor] Respiratory 28 H 23 27 H Rate Blood Pressure 187/68 O2 Sat by Pulse 94 95 Oximetry 08/20/17 08/20/17 08/20/17 03:00 03:30 04:00 Temperature 100.9 F H Pulse Rate 115 H 111 H 101 H Pulse Rate [ From Monitor] Respiratory 28 H 27 H 27 H Rate Blood Pressure O2 Sat by Pulse 94 95 95 Oximetry 08/20/17 08/20/17 08/20/17 04:21 04:30 05:00 Temperature Pulse Rate 107 H 112 H 114 H Pulse Rate [ From Monitor] Respiratory 26 H 27 H Rate Blood Pressure 157/76 157/76 157/76 O2 Sat by Pulse 95 95 93 Oximetry 08/20/17 08/20/17 08/20/17 05:30 06:00 06:30 Temperature Pulse Rate 115 H 113 H 112 H Pulse Rate [ From Monitor] Respiratory 25 H 26 H 22 Rate Blood Pressure 159/87 O2 Sat by Pulse 95 95 95 Oximetry 08/20/17 08/20/17 08/20/17 07:00 07:30 08:00 Temperature 98.9 F Pulse Rate 117 H 108 H 117 H Pulse Rate [ 117 H From Monitor] Respiratory 27 H 28 H 28 H Rate Blood Pressure 159/87 173/73 173/73 O2 Sat by Pulse 94 96 95 Oximetry 08/20/17 08/20/17 08/20/17 08:30 08:43 08:45 Temperature 98.9 F Pulse Rate 120 H 112 H Pulse Rate [ From Monitor] Respiratory 19 Rate Blood Pressure 180/70 180/70 O2 Sat by Pulse 96 Oximetry 08/20/17 08/20/17 08/20/17 09:00 09:01 09:30 Temperature Pulse Rate 107 H 113 H 110 H Pulse Rate [ From Monitor] Respiratory 22 26 H Rate Blood Pressure 180/70 130/51 127/60 O2 Sat by Pulse 96 Oximetry 08/20/17 08/20/17 08/20/17 10:00 10:20 10:30 Temperature Pulse Rate 105 H 114 H 109 H Pulse Rate [ From Monitor] Respiratory 25 H 25 H Rate Blood Pressure 127/60 164/87 161/74 O2 Sat by Pulse 96 97 Oximetry 08/20/17 08/20/17 08/20/17 11:00 11:50 12:00 Temperature 98.4 F Pulse Rate 114 H 114 H Pulse Rate [ From Monitor] Respiratory 25 H 40 H Rate Blood Pressure 164/87 164/87 164/87 O2 Sat by Pulse 95 96 94 Oximetry 08/20/17 08/20/17 12:51 13:09 Temperature Pulse Rate 112 H 106 H Pulse Rate [ From Monitor] Respiratory Rate Blood Pressure 159/77 164/83 O2 Sat by Pulse Oximetry General appearance: Present: other (intubated) - EENT ENT: other (intubated) - Respiratory Respiratory effort: other (intubated) Extremities: normal temperature, normal color Extremity abnormal: other (edematous scrotum, right antecubital fossa with some bruising, left groin puncture site oozing serous fluid, superior portion of right incision slightly macerated.) - Psychiatric Psychiatric: other (does not respond purposefully but does move all extremities) - Labs CBC & Chem 7: 08/20/17 04:45 08/20/17 04:45 Labs: Abnormal lab results 08/19/17 08/19/17 08/19/17 Range/Units 11:34 18:02 23:37 WBC (4.5-11.0) K/mm3 RBC (3.65-5.03) M/mm3 Hgb (11.8-15.2) gm/dl Hct (35.5-45.6) % RDW (13.2-15.2) % POC ABG pH (7.35-7.45) POC ABG pCO2 (35-45) POC ABG pO2 (80-105) Sodium (137-145) mmol/L Chloride (98-107) mmol/L BUN (9-20) mg/dL Creatinine (0.8-1.5) mg/dL Glucose (75-100) mg/dL POC Glucose 166 H 224 H 222 H (70-105) 08/20/17 08/20/17 08/20/17 Range/Units 04:26 04:45 04:45 WBC 14.4 H (4.5-11.0) K/mm3 RBC 2.97 L (3.65-5.03) M/mm3 Hgb 8.9 L (11.8-15.2) gm/dl Hct 26.9 L (35.5-45.6) % RDW 16.8 H (13.2-15.2) % POC ABG pH 7.497 H (7.35-7.45) POC ABG pCO2 33.4 L (35-45) POC ABG pO2 68 L (80-105) Sodium 153 H (137-145) mmol/L Chloride 112.8 H (98-107) mmol/L BUN 71 H (9-20) mg/dL Creatinine 1.7 H (0.8-1.5) mg/dL Glucose 244 H (75-100) mg/dL POC Glucose (70-105) 08/20/17 08/20/17 Range/Units 05:42 12:31 WBC (4.5-11.0) K/mm3 RBC (3.65-5.03) M/mm3 Hgb (11.8-15.2) gm/dl Hct (35.5-45.6) % RDW (13.2-15.2) % POC ABG pH (7.35-7.45) POC ABG pCO2 (35-45) POC ABG pO2 (80-105) Sodium (137-145) mmol/L Chloride (98-107) mmol/L BUN (9-20) mg/dL Creatinine (0.8-1.5) mg/dL Glucose (75-100) mg/dL POC Glucose 224 H 274 H (70-105)
--- NOTE | 2017-08-20 14:08 | XRay Report ---
AP CHEST: HISTORY: Left arm PICC placement A left arm PICC has been inserted which terminates in the mid-to lower SVC. The remainder of the examination is unchanged since earlier today at 1101 hrs. IMPRESSION: Left arm PICC placement as described.
--- NOTE | 2017-08-20 17:30 | Consultation ---
History of Present Illness - Reason for Consult Consult date: 08/20/17 fever, leukocytosis Requesting physician: BELIA MAURICIO - History of Present Illness 66 year old male with history of hypertension, Type 2 DM, hyperlipidemia, CAD, PAD, admitted on 08/11/17 elective right common femoral endarterectomy with patch angioplasty, bilateral common iliac and right external artery stenting due to right lower extremity chronic ischemia with short distance claudication, found to have a occluded right common femoral artery, severely disease right external iliac artery, disease in the bilateral common iliac artery. Initial temp 98.4, HR 70, R 20, O2 sat 95%, BP140/62. WBC 7.9. Hg 14. Plat 241. After procedure, unfortunately, patient became hypotensive, received multiple fluid resuscitation and blood products. He then became altered and was intubated for airway protection. CTA showed retroperitoneal hemorrhage and bladder thickening. He was found to have a ruptured pseudoaneurysm left groin/external iliac with extravasation from the common femoral artery below the previously placed Viabond stent graft tracking retrograde into the lower abdomen and pelvis successfully treated by deployment of new Viabond stent graft across the inguinal ligament into the common femoral artery. TTE EF 30-35%. By 08/15 he started spiking fever 101.2. WBC 12.7. Lactate 3.1. Creat went up 2.4. Ua showed trace LA and >182 wbc. Admission blood cx were negative and urine cx negative. Last 24h patient continues to have 102 fever and leukocytosis 14K. ID consulted due to persistent fever and leukocytosis. CXR showed bibasilar perihilar and bibasilar opacities and right mod pleural effusion, left mild pleural effusion. Microbiology: Blood cultures: 08/14 neg 08/20 ngtd Urine cultures: 08/14 neg Current Antimicrobials: doxycycline 08/14 Previous Antimicrobials: Past History Past Medical History: CAD, COPD, diabetes, hypertension, hyperlipidemia Past Surgical History: Other (endarterectomy) Social history: smoking, alcohol abuse Family history: no significant family history Medications and Allergies Allergies Allergy/AdvReac Type Severity Reaction Status Date / Time Sulfa (Sulfonamide Allergy rash, Verified 08/05/17 10:59 Antibiotics) swelling Home Medications Medication Instructions Recorded Confirmed Last Taken Type Amlodipine Besylate [Norvasc] 10 mg PO DAILY 05/05/17 08/05/17 08/11/17 05:30 History Aspirin [Lo-Dose Aspirin EC] 81 mg PO DAILY 05/05/17 08/05/17 08/11/17 05:30 History Cilostazol [Pletal] 100 mg PO BID 05/05/17 08/05/17 08/11/17 05:30 History Diclofenac Sodium 75 mg PO DAILY 05/05/17 08/05/17 08/11/17 05:30 History Labetalol HCl 300 mg PO TID 05/05/17 08/05/17 08/11/17 05:30 History PARoxetine [Paxil] 20 mg PO DAILY 05/05/17 08/05/17 08/11/17 05:30 History Valsartan-Hctz 320-25 mg Tab 1 tab PO DAILY 05/05/17 08/05/17 08/11/17 05:30 History metFORMIN [Glucophage] 500 mg PO BID 05/05/17 08/11/17 08/10/17 History HYDROcodone/APAP 7.5-325 [[place] 1 each PO Q6HR PRN #20 tablet 05/12/17 08/05/17 Unknown Rx 7.5/325] Active Meds: Active Medications Acetaminophen/Hydrocodone Bitart ([place] 5/325) 2 each PO Q6H PRN PRN Reason: Pain, Moderate (4-6) Amlodipine Besylate (Norvasc) 10 mg PO DAILY [facility] Last Admin: 08/20/17 12:51 Dose: 10 mg Lipase/Protease/Amylase (Pancreaze Dr 10,500 Unit) 1 each FEEDTUBE PRN PRN PRN Reason: For Clogged Feeding Tube Aspirin (Baby Aspirin) 81 mg PO QDAY [facility] Carvedilol (Coreg) 12.5 mg PO BID [facility] Last Admin: 08/20/17 09:01 Dose: 12.5 mg Dextrose (D50w (25gm) Syringe) 50 ml IV PRN PRN PRN Reason: Hypoglycemia Epoetin Ruben (Procrit) 10,000 unit IV CAROLYN PRN PRN Reason: hemodialysis Last Admin: 08/17/17 14:28 Dose: 10,000 unit Famotidine (Pepcid) 20 mg PO BID [facility] Last Admin: 08/20/17 09:01 Dose: 20 mg Folic Acid (Folvite) 1 mg PO QDAY [facility] Last Admin: 08/20/17 09:02 Dose: 1 mg Heparin Sodium (Porcine) (Heparin) 5,000 unit IV CAROLYN PRN PRN Reason: hemodialysis Last Admin: 08/17/17 14:44 Dose: 5,000 unit Heparin Sodium (Porcine) (Heparin 10,000 Units/10 Ml) 2,000 unit IV CAROLYN PRN PRN Reason: hemodialysis Heparin Sodium (Porcine) (Heparin) 5,000 unit SUB-Q Q8HR [facility] Last Admin: 08/20/17 13:05 Dose: 5,000 unit Hydralazine HCl (Apresoline) 10 mg IV Q6H PRN PRN Reason: SBP > 160 Last Admin: 08/20/17 13:09 Dose: 10 mg Hydrophilic Ointment (Vaseline Lip Therapy) 1 applic TP Q2HR PRN PRN Reason: Dry Lips Vasopressin 20 unit/ Sodium (Chloride) 101 mls @ 9.09 mls/hr IV TITR [facility]; Protocol Last Titration: 08/14/17 20:00 Dose: 0 units/min, 0 mls/hr Fentanyl Citrate (Fentanyl Drip Premix) 2,000 mcg in 100 mls @ 5.171 mls/hr IV TITR [facility]; Protocol Last Titration: 08/17/17 18:30 Dose: 0 mcg/kg/hr, 0 mls/hr Norepinephrine 8 mg/ Sodium (Chloride) 250 mls @ 3.75 mls/hr IV TITR [facility]; Protocol Last Titration: 08/14/17 16:59 Dose: 0 mcg/min, 0 mls/hr Doxycycline Hyclate 100 mg/ (Sodium Chloride) 250 mls @ 250 mls/hr IV Q12HR [facility] ; Protocol Stop: 08/20/17 22:59 Last Admin: 08/20/17 09:02 Dose: 250 mls/hr Sodium Chloride (Nacl 0.9%) 100 mls @ 999 mls/hr IV CAROLYN PRN PRN Reason: Hypotension Sodium Chloride (Nacl 0.9%) 100 mls @ 999 mls/hr IV CAROLYN PRN PRN Reason: Hypotension Insulin Glargine (Lantus) 10 units SUB-Q DAILY [facility] Last Admin: 08/20/17 12:51 Dose: 10 units Insulin Human Lispro (Humalog) 0 unit SUB-Q Q6HR [facility]; Protocol Last Admin: 08/20/17 12:56 Dose: 6 unit Lorazepam (Ativan) 2 mg IV Q4H PRN PRN Reason: Agitation Metoprolol Tartrate (Lopressor) 5 mg IV Q6HR PRN PRN Reason: For Heart Rate >140 Last Admin: 08/20/17 08:45 Dose: 5 mg Morphine Sulfate (Morphine) 2 mg IV Q4H PRN PRN Reason: Pain, Moderate (4-6) Last Admin: 08/20/17 02:22 Dose: 2 mg Multi-Ingred Cream/Lotion/Oil/Oint (Artificial Tears Ophth Oint) 1 applic OU Q4HR PRN PRN Reason: Dry Eye(s) Multivitamins (Centrum Liq) 5 ml PO QDAY [facility] Last Admin: 08/20/17 09:02 Dose: 5 ml Naloxone HCl (Narcan 0.4 Mg/1 Ml) 0.1 mg IV Q2MIN PRN PRN Reason: Res Rate </= 8 or 02 SAT < 92% Ondansetron HCl (Zofran) 4 mg IV Q8H PRN PRN Reason: Nausea And Vomiting Paroxetine HCl (Paxil) 20 mg PO DAILY [facility] Last Admin: 08/20/17 09:02 Dose: 20 mg Senna/Docusate Sodium (Senokot S) 2 tab PO QHS [facility] Last Admin: 08/20/17 12:51 Dose: 2 tab Simple Syrup (Simple Syrup) 15 ml FEEDTUBE PRN PRN PRN Reason: Hypoglycemia Simple Syrup (Simple Syrup) 30 ml FEEDTUBE PRN PRN PRN Reason: Hypoglycemia Sodium Bicarbonate (Sodium Bicarbonate) 325 mg FEEDTUBE PRN PRN PRN Reason: For Clogged Feeding Tube Sodium Chloride (Nacl 0.9% 500 Ml) 1 ml IV DIRECT [facility] Last Admin: 08/20/17 04:39 Dose: 1 ml Thiamine HCl (Vitamin B-1) 100 mg PO QDAY [facility] Last Admin: 08/20/17 09:01 Dose: 100 mg Review of Systems ROS unobtainable: due to endotracheal tube, due to mental status Physical Examination - Physical Exam Narrative exam: General appearance: sedated on the vent Eyes: anicteric sclerae, moist conjunctivae; no lid-lag; PERRLA HENT: Atraumatic; oropharynx +ETT Neck: Trachea midline; supple, no thyromegaly or lymphadenopathy Lungs: bibasilar crackles CV: RRR Abdomen: Soft, non-tender; no masses or hepatosplenomegaly Extremities: +kati marked leg edema Skin: +massive scrotal edema +barrientos Psych: sedated Neuro: sedated Lines: right IJ, left arm PICC - Constitutional Vitals: Vital Signs Temp Pulse Resp BP Pulse Ox 101.7 F H 116 H 27 H 118/89 95 08/20/17 16:00 08/20/17 17:14 08/20/17 16:00 08/20/17 17:14 08/20/17 17:14 Temperature -Last 24 Hours Temperature 101.7 F Temperature 101.7 F Temperature 98.4 F Temperature 98.9 F Temperature 98.9 F Temperature 100.9 F Temperature 100.8 F Temperature 100.8 F Results - Labs CBC & Chem 7: 08/20/17 04:45 08/20/17 04:45 Labs: Abnormal lab results 08/19/17 08/19/17 08/19/17 Range/Units 11:34 18:02 23:37 WBC (4.5-11.0) K/mm3 RBC (3.65-5.03) M/mm3 Hgb (11.8-15.2) gm/dl Hct (35.5-45.6) % RDW (13.2-15.2) % POC ABG pH (7.35-7.45) POC ABG pCO2 (35-45) POC ABG pO2 (80-105) Sodium (137-145) mmol/L Chloride (98-107) mmol/L BUN (9-20) mg/dL Creatinine (0.8-1.5) mg/dL Glucose (75-100) mg/dL POC Glucose 166 H 224 H 222 H (70-105) 08/20/17 08/20/17 08/20/17 Range/Units 04:26 04:45 04:45 WBC 14.4 H (4.5-11.0) K/mm3 RBC 2.97 L (3.65-5.03) M/mm3 Hgb 8.9 L (11.8-15.2) gm/dl Hct 26.9 L (35.5-45.6) % RDW 16.8 H (13.2-15.2) % POC ABG pH 7.497 H (7.35-7.45) POC ABG pCO2 33.4 L (35-45) POC ABG pO2 68 L (80-105) Sodium 153 H (137-145) mmol/L Chloride 112.8 H (98-107) mmol/L BUN 71 H (9-20) mg/dL Creatinine 1.7 H (0.8-1.5) mg/dL Glucose 244 H (75-100) mg/dL POC Glucose (70-105) 08/20/17 08/20/17 Range/Units 05:42 12:31 WBC (4.5-11.0) K/mm3 RBC (3.65-5.03) M/mm3 Hgb (11.8-15.2) gm/dl Hct (35.5-45.6) % RDW (13.2-15.2) % POC ABG pH (7.35-7.45) POC ABG pCO2 (35-45) POC ABG pO2 (80-105) Sodium (137-145) mmol/L Chloride (98-107) mmol/L BUN (9-20) mg/dL Creatinine (0.8-1.5) mg/dL Glucose (75-100) mg/dL POC Glucose 224 H 274 H (70-105) Assessment and Plan Assessment: 1) Sepsis with intermittent hypovolemic +/- septic shock: NOT Present on admission, manifested by fever, hypotension, leukocytosis. Sepsis Etiology ?? unclear - possibilities VAP +/- UTI 2) Presumed VAP: CXR showed bibasilar perihilar and bibasilar opacities and right mod pleural effusion, left mild pleural effusion. 3) Acute respiratory failure: for airway protection 4) Acute encephalopathy: multifactorial 5) UTI: inital UA c/w UTI, urine cx negative 6) Right lower extremity chronic ischemia with short distance claudication: -S/P elective right common femoral endarterectomy with patch angioplasty, bilateral common iliac and right external artery stenting on 08/11/17 7) Ruptured pseudoaneurysm left groin/external iliac: -CTA showed retroperitoneal hemorrhage and bladder thickening. -S/P deployment of new Viabond stent graft across the inguinal ligament into the common femoral artery on 08/13/17. 8) WILLIAM 9) Anasarca Plan: -follow-up repeat blood cultures -obtain new UA, urine culture and respiratory cultures -obtain procalcitonin, C-reactive protein (CRP) -Stop doxycycline -Start vancomycin and cefepime renally dosed -consider removing barrientos and TLC Discussed with ICU staff Thank you for your consultation, will follow up with you. Tasia Baldwin MD Infectious Diseases Specialist [facility] ([facility] M [phone] O [phone]
--- NOTE | 2017-08-20 17:31 | Consultation ---
History of Present Illness Consult date: 08/20/17 Reason for consult: other (trach/PEG eval) Requesting physician: BELIA MAURICIO Chief complaint: respiratory failure - History of present illness History of present illness: 66-year-old male who is well-known to our service as we recently consult it for abdominal distention and rule out abdominal compartment syndrome. We are asked to participate in this care again to evaluate him for possible tracheostomy and PEG tube placement. Patient is now stable. He no longer requires vasopressors. Unfortunately, he is not following commands at this time which precludes extubating him. [facility] has spoken to the family and they are interested in a tracheostomy and PEG tube placement. Past History Past Medical History: CAD, COPD, diabetes, hypertension, hyperlipidemia Past Surgical History: Other (endarterectomy) Social history: smoking, alcohol abuse Family history: no significant family history Medications and Allergies Allergies Allergy/AdvReac Type Severity Reaction Status Date / Time Sulfa (Sulfonamide Allergy rash, Verified 08/05/17 10:59 Antibiotics) swelling Home Medications Medication Instructions Recorded Confirmed Last Taken Type Amlodipine Besylate [Norvasc] 10 mg PO DAILY 05/05/17 08/05/17 08/11/17 05:30 History Aspirin [Lo-Dose Aspirin EC] 81 mg PO DAILY 05/05/17 08/05/17 08/11/17 05:30 History Cilostazol [Pletal] 100 mg PO BID 05/05/17 08/05/17 08/11/17 05:30 History Diclofenac Sodium 75 mg PO DAILY 05/05/17 08/05/17 08/11/17 05:30 History Labetalol HCl 300 mg PO TID 05/05/17 08/05/17 08/11/17 05:30 History PARoxetine [Paxil] 20 mg PO DAILY 05/05/17 08/05/17 08/11/17 05:30 History Valsartan-Hctz 320-25 mg Tab 1 tab PO DAILY 05/05/17 08/05/17 08/11/17 05:30 History metFORMIN [Glucophage] 500 mg PO BID 05/05/17 08/11/17 08/10/17 History HYDROcodone/APAP 7.5-325 [[place] 1 each PO Q6HR PRN #20 tablet 01/16/18 04/11/18 Unknown Rx 7.5/325] Active Meds: Active Medications Acetaminophen/Hydrocodone Bitart ([place] 5/325) 2 each PO Q6H PRN PRN Reason: Pain, Moderate (4-6) Amlodipine Besylate (Norvasc) 10 mg PO DAILY [facility] Last Admin: 08/20/17 12:51 Dose: 10 mg Lipase/Protease/Amylase (Pancreaze Dr 10,500 Unit) 1 each FEEDTUBE PRN PRN PRN Reason: For Clogged Feeding Tube Aspirin (Baby Aspirin) 81 mg PO QDAY [facility] Carvedilol (Coreg) 12.5 mg PO BID [facility] Last Admin: 08/20/17 09:01 Dose: 12.5 mg Dextrose (D50w (25gm) Syringe) 50 ml IV PRN PRN PRN Reason: Hypoglycemia Epoetin Ruben (Procrit) 10,000 unit IV CAROLYN PRN PRN Reason: hemodialysis Last Admin: 08/17/17 14:28 Dose: 10,000 unit Famotidine (Pepcid) 20 mg PO BID [facility] Last Admin: 08/20/17 09:01 Dose: 20 mg Folic Acid (Folvite) 1 mg PO QDAY [facility] Last Admin: 08/20/17 09:02 Dose: 1 mg Heparin Sodium (Porcine) (Heparin) 5,000 unit IV CAROLYN PRN PRN Reason: hemodialysis Last Admin: 08/17/17 14:44 Dose: 5,000 unit Heparin Sodium (Porcine) (Heparin 10,000 Units/10 Ml) 2,000 unit IV CAROLYN PRN PRN Reason: hemodialysis Heparin Sodium (Porcine) (Heparin) 5,000 unit SUB-Q Q8HR [facility] Last Admin: 08/20/17 13:05 Dose: 5,000 unit Hydralazine HCl (Apresoline) 10 mg IV Q6H PRN PRN Reason: SBP > 160 Last Admin: 08/20/17 13:09 Dose: 10 mg Hydrophilic Ointment (Vaseline Lip Therapy) 1 applic TP Q2HR PRN PRN Reason: Dry Lips Vasopressin 20 unit/ Sodium (Chloride) 101 mls @ 9.09 mls/hr IV TITR [facility]; Protocol Last Titration: 08/14/17 20:00 Dose: 0 units/min, 0 mls/hr Fentanyl Citrate (Fentanyl Drip Premix) 2,000 mcg in 100 mls @ 5.171 mls/hr IV TITR PANCH[facility]O; Protocol Last Titration: 08/17/17 18:30 Dose: 0 mcg/kg/hr, 0 mls/hr Norepinephrine 8 mg/ Sodium (Chloride) 250 mls @ 3.75 mls/hr IV TITR PANCH[facility]; Protocol Last Titration: 08/14/17 16:59 Dose: 0 mcg/min, 0 mls/hr Doxycycline Hyclate 100 mg/ (Sodium Chloride) 250 mls @ 250 mls/hr IV Q12HR [facility] ; Protocol Stop: 08/20/17 22:59 Last Admin: 08/20/17 09:02 Dose: 250 mls/hr Sodium Chloride (Nacl 0.9%) 100 mls @ 999 mls/hr IV CAROLYN PRN PRN Reason: Hypotension Sodium Chloride (Nacl 0.9%) 100 mls @ 999 mls/hr IV CAROLYN PRN PRN Reason: Hypotension Insulin Glargine (Lantus) 10 units SUB-Q DAILY [facility] Last Admin: 08/20/17 12:51 Dose: 10 units Insulin Human Lispro (Humalog) 0 unit SUB-Q Q6HR [facility]; Protocol Last Admin: 08/20/17 12:56 Dose: 6 unit Lorazepam (Ativan) 2 mg IV Q4H PRN PRN Reason: Agitation Metoprolol Tartrate (Lopressor) 5 mg IV Q6HR PRN PRN Reason: For Heart Rate >140 Last Admin: 08/20/17 08:45 Dose: 5 mg Morphine Sulfate (Morphine) 2 mg IV Q4H PRN PRN Reason: Pain, Moderate (4-6) Last Admin: 08/20/17 02:22 Dose: 2 mg Multi-Ingred Cream/Lotion/Oil/Oint (Artificial Tears Ophth Oint) 1 applic OU Q4HR PRN PRN Reason: Dry Eye(s) Multivitamins (Centrum Liq) 5 ml PO QDAY [facility] Last Admin: 08/20/17 09:02 Dose: 5 ml Naloxone HCl (Narcan 0.4 Mg/1 Ml) 0.1 mg IV Q2MIN PRN PRN Reason: Res Rate </= 8 or 02 SAT < 92% Ondansetron HCl (Zofran) 4 mg IV Q8H PRN PRN Reason: Nausea And Vomiting Paroxetine HCl (Paxil) 20 mg PO DAILY [facility] Last Admin: 08/20/17 09:02 Dose: 20 mg Senna/Docusate Sodium (Senokot S) 2 tab PO QHS [facility] Last Admin: 08/20/17 12:51 Dose: 2 tab Simple Syrup (Simple Syrup) 15 ml FEEDTUBE PRN PRN PRN Reason: Hypoglycemia Simple Syrup (Simple Syrup) 30 ml FEEDTUBE PRN PRN PRN Reason: Hypoglycemia Sodium Bicarbonate (Sodium Bicarbonate) 325 mg FEEDTUBE PRN PRN PRN Reason: For Clogged Feeding Tube Sodium Chloride (Nacl 0.9% 500 Ml) 1 ml IV DIRECT [facility] Last Admin: 08/20/17 04:39 Dose: 1 ml Thiamine HCl (Vitamin B-1) 100 mg PO QDAY [facility] Last Admin: 08/20/17 09:01 Dose: 100 mg Review of Systems ROS unobtainable: due to endotracheal tube Exam Vital Signs Temp Pulse Resp BP 98.4 F 70 20 140/62 08/10/17 10:00 08/10/17 10:00 08/10/17 10:00 08/10/17 10:00 - General physical appearance Positive: well developed, well nourished, no distress - Neck Positive: trachea midline, other (there are no prior incisions. No signs of infection. VasCath noted on the right side of the neck. There are no pulsatile structures at the base of the neck.) - Respiratory Positive: normal expansion, normal respiratory effort - Abdomen Abdomen: Present: soft. Absent: tender, distended (much improved compared to initial exam during 1st consult), guarding, rigid, wound, surgical scars - Integumentary no rash, no growths, no abnormal pigmentation - Neurologic Neurologic: other (patient opens eyes but does not follow commands) Results - Labs 08/20/17 04:45 08/20/17 04:45 Abnormal lab results 08/19/17 08/19/17 08/19/17 Range/Units 11:34 18:02 23:37 WBC (4.5-11.0) K/mm3 RBC (3.65-5.03) M/mm3 Hgb (11.8-15.2) gm/dl Hct (35.5-45.6) % RDW (13.2-15.2) % POC ABG pH (7.35-7.45) POC ABG pCO2 (35-45) POC ABG pO2 (80-105) Sodium (137-145) mmol/L Chloride (98-107) mmol/L BUN (9-20) mg/dL Creatinine (0.8-1.5) mg/dL Glucose (75-100) mg/dL POC Glucose 166 H 224 H 222 H (70-105) 08/20/17 08/20/17 08/20/17 Range/Units 04: 04:45 04:45 WBC 14.4 H (4.5-11.0) K/mm3 RBC 2.97 L (3.65-5.03) M/mm3 Hgb 8.9 L (11.8-15.2) gm/dl Hct 26.9 L (35.5-45.6) % RDW 16.8 H (13.2-15.2) % POC ABG pH 7.497 H (7.35-7.45) POC ABG pCO2 33.4 L (35-45) POC ABG pO2 68 L (80-105) Sodium 153 H (137-145) mmol/L Chloride 112.8 H (98-107) mmol/L BUN 71 H (9-20) mg/dL Creatinine 1.7 H (0.8-1.5) mg/dL Glucose 244 H (75-100) mg/dL POC Glucose (70-105) 08/20/17 08/20/17 Range/Units 05:42 12:31 WBC (4.5-11.0) K/mm3 RBC (3.65-5.03) M/mm3 Hgb (11.8-15.2) gm/dl Hct (35.5-45.6) % RDW (13.2-15.2) % POC ABG pH (7.35-7.45) POC ABG pCO2 (35-45) POC ABG pO2 (80-105) Sodium (137-145) mmol/L Chloride (98-107) mmol/L BUN (9-20) mg/dL Creatinine (0.8-1.5) mg/dL Glucose (75-100) mg/dL POC Glucose 224 H 274 H (70-105) Diabetes panel 08/20/17 Range/Units 04:45 Sodium 153 H (137-145) mmol/L Potassium 3.6 (3.6-5.0) mmol/L Chloride 112.8 H (98-107) mmol/L Carbon Dioxide 26 (22-30) mmol/L BUN 71 H (9-20) mg/dL Creatinine 1.7 H (0.8-1.5) mg/dL Glucose 244 H (75-100) mg/dL Calcium 8.8 (8.4-10.2) mg/dL Calcium panel 08/20/17 Range/Units 04:45 Calcium 8.8 (8.4-10.2) mg/dL Pituitary panel 08/20/17 Range/Units 04:45 Sodium 153 H (137-145) mmol/L Potassium 3.6 (3.6-5.0) mmol/L Chloride 112.8 H (98-107) mmol/L Carbon Dioxide 26 (22-30) mmol/L BUN 71 H (9-20) mg/dL Creatinine 1.7 H (0.8-1.5) mg/dL Glucose 244 H (75-100) mg/dL Calcium 8.8 (8.4-10.2) mg/dL Adrenal panel 08/20/17 Range/Units 04:45 Sodium 153 H (137-145) mmol/L Potassium 3.6 (3.6-5.0) mmol/L Chloride 112.8 H (98-107) mmol/L Carbon Dioxide 26 (22-30) mmol/L BUN 71 H (9-20) mg/dL Creatinine 1.7 H (0.8-1.5) mg/dL Glucose 244 H (75-100) mg/dL Calcium 8.8 (8.4-10.2) mg/dL - Imaging CT scan - abdomen: report reviewed, image reviewed Assessment and Plan - Patient Problems (1) Respiratory failure Current Visit: Yes Status: Acute Plan to address problem: Patient is stable. He appears to be an adequate candidate for tracheostomy and PEG tube placement. On CT scan, the stomach appears to be in a good position for the feeding tube placement. We had no specific studies for the neck. However, based on clinical exam, we should be able to place the tracheostomy via the percutaneous method. There is no family available at this time for consent. I've tried calling on the home number listed in the computer, but there was no answer. I will try again tomorrow to reach the family. time=45min
[2017-08-20] MEDS: NORCO 5/325 PO PRN (19:45)
[2017-08-20] MEDS ORDERED: TYLENOL FEEDTUBE PRN (21:36)
[2017-08-20] MEDS ORDERED: VANCOMYCIN PHARMACY TO DOSE IV SCH (22:00)
[2017-08-20] MEDS ORDERED: VANCOMYCIN VIAL 1,000 MG in NACL 0.9% 100 ML IV SCH (22:00)
--- NOTE | 2017-08-20 22:42 | XRay Report ---
FINAL REPORT PROCEDURE: XR CHEST 1V AP TECHNIQUE: Chest radiograph anteroposterior view. CPT 88500 HISTORY: leukocytosis, intubated COMPARISON: 08/19/2017 FINDINGS: Heart: Prominent cardiac silhouette Mediastinum/Vessels: Prominent central vessels. Lungs/Pleural space: Right pleural effusion and right lung base atelectasis or infiltrate. Bony thorax: No acute osseous abnormality. Life support devices: Endotracheal tube tip projects 5.4 centimeters superior to the smita. Nasogastric tube tip is in the upper abdomen. There are 2 right central venous catheters, tips in the superior vena cava. IMPRESSION: Right pleural effusion and right lung base atelectasis or infiltrate.
[2017-08-20] MEDS ORDERED: VANCOMYCIN IV SCH (23:00)
[2017-08-20] MEDS ORDERED: NACL 0.45% IV SCH (23:00)
[2017-08-20 23:21] LABS: Bacteria,Urine 1+ /HPF (Negative); Bilirubin,Urine NEG (Negative); Blood,Urine MOD (Negative); Color,Urine Amber (Yellow); Mucus,Urine FEW /HPF
[2017-08-21] MEDS: MAXIPIME 2 GM in NACL 0.9% 20 ML IV SCH ×3 (00:03→21:16)
[2017-08-21] MEDS: HumaLOG SUB-Q SCH ×4 (00:19→18:51)
[2017-08-21] MEDS: ATIVAN IV PRN (03:38)
[2017-08-21 05:18] LABS: Hematocrit 26.8 % (35.5-45.6); Hemoglobin 8.3 gm/dl (11.8-15.2); Mean Corpuscular HGB Conc 31 % (32-34); Mean Corpuscular Hemoglobin 29 pg (28-32); Mean Corpuscular Volume 94 fl (84-94); Platelet Count 157 K/mm3 (140-440); Red Blood Count 2.84 M/mm3 (3.65-5.03); Red Cell Distribution Width 17.8 % (13.2-15.2)
[2017-08-21 06:16] LABS: Calcium 8.7 mg/dL (8.4-10.2)
[2017-08-21] MEDS: HEPARIN SUB-Q SCH ×3 (06:25→21:15)
--- NOTE | 2017-08-21 09:35 | Progress Note ---
Assessment and Plan Assessment and plan: Patient is 66 year old male with past medical history of hypertension, Type 2 DM , hyperlipidemia, CAD, PAD, who underwent elective vascular procedure for R ROLLED HAM LACER , and is postop femoral endarterectomy and iliac artery stenting. Patient became hypotensive, giv multiple fluid resuscitation and blood products. Also began to exhibit some altered mental status for which were consulted. Acute hypoxic respiratory failure patient remains intubated unable to wean down secondary to altered mental status. Attempt to wean sedation patient developed agitation. Patient's cognition is not improved enough for extubation attempt at this particular time. Pulmonology following. Vasogenic shock, now resolved -at present blood pressure is stable. Acute kidney injury secondary to ATN, shock oliguria. Creatinine 3.2 today. Patient now on hemodialysis prn, managed by Nephrology. Metabolic acidosis resolving. Fever.Repeat blood cultures drawn yesterday. ID Physician consulted, following Thrombocytopenia , now resolved. PVD status post common femoral endarterectomy followed for vascular surgery Acute Blood loss anemia- s/p massive blood transfuison. Total 14 Units PRBC Diabetes fairly well controlled with insulin sliding scale would not change at this particular time Hypertension. Will add Hydralazine.. Acute toxic metabolic Encephalopathy: Off sedation and not following commands, Neurology consulted The high probability of a clinically significant, sudden or life threatening deterioration of the [4] system(s) required my full and direct attention, intervention and personal management. The aggregate critical care time was [33] minutes. This time is in addition to time spent performing reported procedures but includes the following: [x] Data Review and interpretation [x] Patient assessment and monitoring of vital signs [x] Documentation [x] Medication orders and management History Interval history: Patient still intubated, 24 hr event reviewed, Fever Hospitalist Physical - Physical exam Narrative exam: General:Not in acute distress, lying in bed,morbidly obese,intubated HEENT:Normocephalic, atraumatic Lungs:Clear to auscultation bilaterally , no rales , no wheeze Heart:S1 and S2 regular, no murmurs, rubs or gallop Abd: soft, non tender, non distended, normal bowel sounds Ext: leg edema, no clubbing or cyanosis Neuro: Intubated, opens eyes, does not follow commands - Constitutional Vitals: Temp Pulse Resp BP Pulse Ox 102.9 F H 105 H 22 149/72 95 08/21/17 08:00 08/21/17 08:00 08/21/17 08:00 08/21/17 08:00 08/21/17 08:00 General appearance: Present: no acute distress, obese Results - Labs CBC & Chem 7: 08/21/17 04:15 08/21/17 04:15 Labs: Laboratory Last Values WBC 13.3 K/mm3 (4.5-11.0) H 08/21/17 04:15 RBC 2.84 M/mm3 (3.65-5.03) L 08/21/17 04:15 Hgb 8.3 gm/dl (11.8-15.2) L 08/21/17 04:15 POC Hgb 8.5 (12-17) L 08/11/17 14:39 Hct 26.8 % (35.5-45.6) L 08/21/17 04:15 POC Hct 25 (38-51) L 08/11/17 14:39 MCV 94 fl (84-94) 08/21/17 04:15 MCH 29 pg (28-32) 08/21/17 04:15 MCHC 31 % (32-34) L 08/21/17 04:15 RDW 17.8 % (13.2-15.2) H 08/21/17 04:15 Plt Count 157 K/mm3 (140-440) 08/21/17 04:15 Lymph % (Auto) 6.6 % (13.4-35.0) L 08/16/17 04:42 [place] % (Auto) 10.1 % (0.0-7.3) H 08/16/17 04:42 Eos % (Auto) 0.1 % (0.0-4.3) 08/16/17 04:42 Baso % (Auto) 0.1 % (0.0-1.8) 08/16/17 04:42 Lymph # 0.9 K/mm3 (1.2-5.4) L 08/16/17 04:42 [place] # 1.4 K/mm3 (0.0-0.8) H 08/16/17 04:42 Eos # 0.0 K/mm3 (0.0-0.4) 08/16/17 04:42 Baso # 0.0 K/mm3 (0.0-0.1) 08/16/17 04:42 Seg Neutrophils % 83.1 % (40.0-70.0) H 08/16/17 04:42 Seg Neutrophils # 11.8 K/mm3 (1.8-7.7) H 08/16/17 04:42 PT 15.7 Sec. (12.2-14.9) H 08/14/17 05:00 INR 1.18 (0.87-1.13) H 08/14/17 05:00 APTT 31.7 Sec. (24.2-36.6) 08/14/17 05:00 Activated Clotting Time 164 (74-137) H 08/11/17 14:46 Fibrinogen 424 mg/dl (211-480) 08/14/17 05:00 D-Dimer 950.64 ng/mlDDU (0-234) H 08/14/17 05:00 Heparin Anti-Xa Level < 0.10 U.I./ml (0.3-0.7) L 08/12/17 21:50 Heparin Anti-Xa, Unfract Negative (Negative) 08/13/17 05:46 POC ABG pH 7.449 (7.35-7.45) 08/21/17 06:23 POC ABG pCO2 40.3 (35-45) 08/21/17 06:23 POC ABG pO2 74 (80-105) L 08/21/17 06:23 POC ABG HCO3 28.0 08/21/17 06:23 POC ABG Total CO2 29 08/21/17 06:23 POC ABG O2 Sat 95 08/21/17 06:23 POC ABG Base Excess 4 08/21/17 06:23 POC Sodium 142 mmol/L (138-146) 08/11/17 14:39 POC Potassium 4.2 (3.5-4.9) 08/11/17 14:39 POC Chloride 109 (98-109) 08/11/17 14:39 FiO2 40 % 08/21/17 06:23 Sodium 158 mmol/L (137-145) H 08/21/17 04:15 Potassium 3.2 mmol/L (3.6-5.0) L 08/21/17 04:15 Chloride 118.8 mmol/L (98-107) H 08/21/17 04:15 Carbon Dioxide 27 mmol/L (22-30) 08/21/17 04:15 Anion Gap 15 mmol/L 08/21/17 04:15 POC BUN 13 mg/dl (8-26) 08/11/17 14:39 BUN 74 mg/dL (9-20) H 08/21/17 04:15 Creatinine 1.8 mg/dL (0.8-1.5) H 08/21/17 04:15 Estimated GFR 38 ml/min 08/21/17 04:15 BUN/Creatinine Ratio 41 % 08/21/17 04:15 Glucose 227 mg/dL (75-100) H 08/21/17 04:15 POC Glucose 230 (70-105) H 08/21/17 05:50 Lactic Acid 1.70 mmol/L (0.7-2.0) 08/14/17 05:00 Calcium 8.7 mg/dL (8.4-10.2) 08/21/17 04:15 Total Bilirubin 1.40 mg/dL (0.1-1.2) H 08/17/17 04:30 AST 99 units/L (5-40) H 08/17/17 04:30 ALT 93 units/L (7-56) H 08/17/17 04:30 Alkaline Phosphatase 86 units/L (35-129) 08/17/17 04:30 C-Reactive Protein 22.10 mg/dL (0.00-1.30) H 08/20/17 22:25 Total Protein 5.6 g/dL (6.3-8.2) L D 08/17/17 04:30 Albumin 3.1 g/dL (3.9-5) L 08/17/17 04:30 Albumin/Globulin Ratio 1.2 % 08/17/17 04:30 Serotonin Release Assay See scanned report 08/13/17 05:46 Urine Color [place] (Yellow) 08/20/17 20:25 Urine Turbidity Clear (Clear) 08/20/17 20:25 Urine pH 5.0 (5.0-7.0) 08/20/17 20:25 Ur Specific [place] 1.016 (1.003-1.030) 08/20/17 20:25 Urine Protein 30 mg/dl mg/dL (Negative) 08/20/17 20:25 Urine Glucose (UA) Neg mg/dL (Negative) 08/20/17 20:25 Urine Ketones Neg mg/dL (Negative) 08/20/17 20:25 Urine Blood Mod (Negative) 08/20/17 20:25 Urine Nitrite Neg (Negative) 08/20/17 20:25 Urine Bilirubin Neg (Negative) 08/20/17 20:25 Urine Urobilinogen 4.0 mg/dL (<2.0) 08/20/17 20:25 Ur Leukocyte Esterase Neg (Negative) 08/20/17 20:25 Urine WBC (Auto) 2.0 /HPF (0.0-6.0) 08/20/17 20:25 Urine RBC (Auto) 32.0 /HPF (0.0-6.0) 08/20/17 20:25 U Epithel Cells (Auto) < 1.0 /HPF (0-13.0) 08/20/17 20:25 Urine Bacteria (Auto) 1+ /HPF (Negative) 08/20/17 20:25 Urine Mucus Few /HPF 08/20/17 20:25 Heparin-induced Plt Ab Negative (Negative) 08/13/17 05:46 UF Heparin High Dose 0 % Release 08/13/17 05:46 SORIN UFH Low Dose 0.1 0 % Release 08/13/17 05:46 SORIN UFH Low Dose 0.5 0 % Release 08/13/17 05:46 Hepatitis A IgM Ab Non-reactive (NonReactive) 08/13/17 15:35 Hep Bs Antigen Non-reactive (Negative) 08/13/17 15:35 Hep B Core IgM Ab Non-reactive (NonReactive) 08/13/17 15:35 Hepatitis C Antibody Non-reactive (NonReactive) 08/13/17 15:35 Miscellaneous Test Tnp 08/13/17 07:50 Blood Type O POSITIVE 08/19/17 08:26 Antibody Screen Negative 08/19/17 08:26 Crossmatch See Detail 08/19/17 08:26
[2017-08-21] MEDS ORDERED: GOLYTELY NGTUBE NR (10:00)
[2017-08-21] MEDS ORDERED: VANCOMYCIN/0.45 NS 1 GM/250 ML 1 GM/250 ML BAG IV ONE (10:00)
[2017-08-21] MEDS ORDERED: [UNRECOGNIZED DRUG - REMARK] OS SCH (10:12)
[2017-08-21] MEDS: PEPCID PO SCH ×2 (10:50→21:16)
[2017-08-21] MEDS: PAXIL PO SCH (10:50)
[2017-08-21] MEDS: NORVASC PO SCH (10:50)
[2017-08-21] MEDS: VITAMIN B-1 PO SCH (10:50)
[2017-08-21] MEDS: BABY ASPIRIN PO SCH (10:51)
[2017-08-21] MEDS: FOLVITE PO SCH (10:51)
[2017-08-21] MEDS: Centrum Liq PO SCH (10:52)
[2017-08-21] MEDS: COREG PO SCH ×2 (10:55→21:16)
[2017-08-21] MEDS: LANTUS SUB-Q SCH (11:00)
--- NOTE | 2017-08-21 11:29 | Hem/Onc Progress Note ---
Assessment and Plan Platelets have normalized. CBC stable. Heparin-induced, thrombocytopenia assay negative will sign off,thx Subjective Date of service: 08/21/17 Interval history: Patient on ventilator. No active bleeding.more alert. fam at bedside Objective - Exam Narrative Exam: no active bleeding - Constitutional Vitals: Last Vital Signs Temp 102.9 F H 08/21/17 08:00 Pulse 100 H 08/21/17 10:50 Resp 22 08/21/17 08:00 BP 148/75 08/21/17 10:50 Pulse Ox 99 08/21/17 09:34 - Labs Lab Results: Laboratory Results - last 24 hr 08/20/17 08/20/17 08/20/17 12:31 17:56 20:25 WBC RBC Hgb Hct MCV MCH MCHC RDW Plt Count POC ABG pH POC ABG pCO2 POC ABG pO2 POC ABG HCO3 POC ABG Total CO2 POC ABG O2 Sat POC ABG Base Excess FiO2 Sodium Potassium Chloride Carbon Dioxide Anion Gap BUN Creatinine Estimated GFR BUN/Creatinine Ratio Glucose POC Glucose 274 H 267 H Calcium C-Reactive Protein Urine Color [place] Urine Turbidity Clear Urine pH 5.0 Ur Specific [place] 1.016 Urine Protein 30 mg/dl Urine Glucose (UA) Neg Urine Ketones Neg Urine Blood Mod Urine Nitrite Neg Urine Bilirubin Neg Urine Urobilinogen 4.0 Ur Leukocyte Esterase Neg Urine WBC (Auto) 2.0 Urine RBC (Auto) 32.0 U Epithel Cells (Auto) < 1.0 Urine Bacteria (Auto) 1+ Urine Mucus Few 08/20/17 08/20/17 08/21/17 22:25 23:52 04:15 WBC 13.3 H RBC 2.84 L Hgb 8.3 L Hct 26.8 L MCV 94 MCH 29 MCHC 31 L RDW 17.8 H Plt Count 157 POC ABG pH POC ABG pCO2 POC ABG pO2 POC ABG HCO3 POC ABG Total CO2 POC ABG O2 Sat POC ABG Base Excess FiO2 Sodium Potassium Chloride Carbon Dioxide Anion Gap BUN Creatinine Estimated GFR BUN/Creatinine Ratio Glucose POC Glucose 241 H Calcium C-Reactive Protein 22.10 H Urine Color Urine Turbidity Urine pH Ur Specific [place] Urine Protein Urine Glucose (UA) Urine Ketones Urine Blood Urine Nitrite Urine Bilirubin Urine Urobilinogen Ur Leukocyte Esterase Urine WBC (Auto) Urine RBC (Auto) U Epithel Cells (Auto) Urine Bacteria (Auto) Urine Mucus 08/21/17 08/21/17 08/21/17 04:15 05:50 06:23 WBC RBC Hgb Hct MCV MCH MCHC RDW Plt Count POC ABG pH 7.449 POC ABG pCO2 40.3 POC ABG pO2 74 L POC ABG HCO3 28.0 POC ABG Total CO2 29 POC ABG O2 Sat 95 POC ABG Base Excess 4 FiO2 40 Sodium 158 H Potassium 3.2 L Chloride 118.8 H Carbon Dioxide 27 Anion Gap 15 BUN 74 H Creatinine 1.8 H Estimated GFR 38 BUN/Creatinine Ratio 41 Glucose 227 H POC Glucose 230 H Calcium 8.7 C-Reactive Protein Urine Color Urine Turbidity Urine pH Ur Specific [place] Urine Protein Urine Glucose (UA) Urine Ketones Urine Blood Urine Nitrite Urine Bilirubin Urine Urobilinogen Ur Leukocyte Esterase Urine WBC (Auto) Urine RBC (Auto) U Epithel Cells (Auto) Urine Bacteria (Auto) Urine Mucus
[2017-08-21] MEDS: [UNRECOGNIZED DRUG - OTHER] OS SCH ×2 (11:48→21:18)
[2017-08-21] MEDS: OPTH OS SCH ×2 (11:48→21:18)
--- NOTE | 2017-08-21 13:17 | Progress Note ---
Assessment and Plan Assessment: 1) Sepsis with intermittent hypovolemic +/- septic shock: Still fever and leukocytosis. Sepsis Etiology ?? unclear - possibilities VAP . CRP=22 2) Presumed VAP: CXR showed bibasilar perihilar and bibasilar opacities and right mod pleural effusion, left mild pleural effusion. 3) Acute respiratory failure: for airway protection 4) Acute encephalopathy: multifactorial 5) UTI: inital UA c/w UTI, urine cx negative. Repeat UA neg 6) Right lower extremity chronic ischemia with short distance claudication: -S/P elective right common femoral endarterectomy with patch angioplasty, bilateral common iliac and right external artery stenting on 08/11/17 7) Ruptured pseudoaneurysm left groin/external iliac: -CTA showed retroperitoneal hemorrhage and bladder thickening. -S/P deployment of new Viabond stent graft across the inguinal ligament into the common femoral artery on 08/13/17. 8) WILLIAM 9) Anasarca Plan: -follow-up repeat blood cultures -follow-up respiratory cultures -follow-up procalcitonin -continue vancomycin and cefepime renally dosed - D2 -consider removing barrientos and TLC I will be covering the weekend over the phone, please call me if questions Discussed with ICU staff Thank you for your consultation, will follow up with you. Tasia Baldwin MD Infectious Diseases Specialist [facility] ([facility] M [phone] O [phone] Subjective Date of service: 08/21/17 Principal diagnosis: Acute Hypoxemic Respiratory Failure; Hemorrhagic Shock; WILLIAM on Dilaysis;PVD Interval history: Remains intubated on CPAP, tmax 102.9 Microbiology: Blood cultures: 08/14 neg 08/20 ngtd Urine cultures: 08/14 neg Current Antimicrobials: vanco 08/20 cefepime 08/20 Previous Antimicrobials: doxycycline 08/14 Objective - Exam Narrative Exam: General appearance: sedated on the vent Eyes: anicteric sclerae, moist conjunctivae; no lid-lag; PERRLA HENT: Atraumatic; oropharynx +ETT Neck: Trachea midline; supple, no thyromegaly or lymphadenopathy Lungs: bibasilar crackles CV: RRR Abdomen: Soft, non-tender; no masses or hepatosplenomegaly Extremities: +kati marked leg edema Skin: +massive scrotal edema +barrientos Psych: sedated Neuro: sedated Lines: right IJ, left arm PICC - Constitutional Vitals: Vital Signs Temp Pulse Resp BP Pulse Ox 99.7 F H 102 H 12 126/65 94 08/21/17 12:00 08/21/17 11:41 08/21/17 11:30 08/21/17 11:41 08/21/17 11:41 Temperature -Last 24 Hours Temperature 99.7 F Temperature 98.8 F Temperature 102.9 F Temperature 102.9 F Temperature 101.0 F Temperature 102.4 F Temperature 102.8 F Temperature 102.8 F Temperature 101.7 F Temperature 101.7 F - Labs CBC & Chem 7: 08/21/17 04:15 08/21/17 04:15 Labs: Abnormal lab results 08/20/17 08/20/17 08/20/17 Range/Units 17:56 22:25 23:52 WBC (4.5-11.0) K/mm3 RBC (3.65-5.03) M/mm3 Hgb (11.8-15.2) gm/dl Hct (35.5-45.6) % MCHC (32-34) % RDW (13.2-15.2) % POC ABG pCO2 (35-45) POC ABG pO2 (80-105) Sodium (137-145) mmol/L Potassium (3.6-5.0) mmol/L Chloride (98-107) mmol/L BUN (9-20) mg/dL Creatinine (0.8-1.5) mg/dL Glucose (75-100) mg/dL POC Glucose 267 H 241 H (70-105) C-Reactive Protein 22.10 H (0.00-1.30) mg/dL 08/21/17 08/21/17 08/21/17 Range/Units 04:15 04:15 05:50 WBC 13.3 H (4.5-11.0) K/mm3 RBC 2.84 L (3.65-5.03) M/mm3 Hgb 8.3 L (11.8-15.2) gm/dl Hct 26.8 L (35.5-45.6) % MCHC 31 L (32-34) % RDW 17.8 H (13.2-15.2) % POC ABG pCO2 (35-45) POC ABG pO2 (80-105) Sodium 158 H (137-145) mmol/L Potassium 3.2 L (3.6-5.0) mmol/L Chloride 118.8 H (98-107) mmol/L BUN 74 H (9-20) mg/dL Creatinine 1.8 H (0.8-1.5) mg/dL Glucose 227 H (75-100) mg/dL POC Glucose 230 H (70-105) C-Reactive Protein (0.00-1.30) mg/dL 08/21/17 08/21/17 08/21/17 Range/Units 06:23 11:04 11:44 WBC (4.5-11.0) K/mm3 RBC (3.65-5.03) M/mm3 Hgb (11.8-15.2) gm/dl Hct (35.5-45.6) % MCHC (32-34) % RDW (13.2-15.2) % POC ABG pCO2 46.6 H (35-45) POC ABG pO2 74 L 52 L (80-105) Sodium (137-145) mmol/L Potassium (3.6-5.0) mmol/L Chloride (98-107) mmol/L BUN (9-20) mg/dL Creatinine (0.8-1.5) mg/dL Glucose (75-100) mg/dL POC Glucose 327 H (70-105) C-Reactive Protein (0.00-1.30) mg/dL 08/21/17 Range/Units 12:34 WBC (4.5-11.0) K/mm3 RBC (3.65-5.03) M/mm3 Hgb (11.8-15.2) gm/dl Hct (35.5-45.6) % MCHC (32-34) % RDW (13.2-15.2) % POC ABG pCO2 (35-45) POC ABG pO2 (80-105) Sodium (137-145) mmol/L Potassium (3.6-5.0) mmol/L Chloride (98-107) mmol/L BUN (9-20) mg/dL Creatinine (0.8-1.5) mg/dL Glucose (75-100) mg/dL POC Glucose 285 H (70-105) C-Reactive Protein (0.00-1.30) mg/dL
--- NOTE | 2017-08-21 13:18 | Progress Note ---
Assessment and Plan Acute Hypoxic Respiratory failure Vasogenic Shock, Presumed Bleed WILLIAM Secondary to vasomotor nephropathy Severe Metabolic Acidosis Acute blood loss anemia PVD s/p right femoral end-arterectomy Acute encephalopathy s/p Massive blood transfusion Leukocytosis - continue daily SAT's and SBT's while awaiting tracheostomy placement also - continue supplemental oxygen and wean to keep sats > 90% - continue to address VAP bundle daily - continue antibiotics and follow cultures/clinically for de-escalation - ID on case also - weaned off vasopressors - continue HD/UF per nephrology prescription for volume and toxin clearance - now making urine - massive transfusion protocol followed; received FFP's and platelets - hold all anticoagulation till H&H stabilizes - continue SCD's - continue agitation and analgesia management while avoiding benzodiazepines - Avoiding\ nephrotoxic agents - strict I's & O's but pull barrientos catheter out once ok with nephrology - continue enteral nutrition as tolerated - Azotemia per nephrology team otherwise - case discussed at length with surgery and in team rounds and care plan formulated - Prognosis remains guarded overall although improved, with risk of decompensation from a hemodynamic standpoint and even . - continue other care per attending / other consultants .... re-evaluate in am & prn ...30' CCT Subjective Date of service: 08/21/17 Principal diagnosis: Acute Hypoxemic Respiratory Failure; Hemorrhagic Shock; WILLIAM on Dilaysis;PVD Interval history: Patient is seen today for: Acute Hypoxemic Respiratory Failure; Hemorrhagic Shock; WILLIAM on Dilaysis;PVD Seen and examined at bedside; 24 hour events reviewed; nursing and respiratory care staff consulted; remains on MVS; on PSV 12/6 and tolerating decently; ETT day # 10-11; still somnolent but oevrall more appropriate over the past few days ; off vasopressors and making urine better; No N/V/F/C and no gross re-bleeding Objective Vital Signs - 12hr 08/21/17 08/21/17 08/21/17 01:30 02:00 02:30 Temperature Pulse Rate 113 H 102 H 110 H Respiratory 20 26 H 23 Rate Blood Pressure 134/63 134/63 119/55 O2 Sat by Pulse 95 94 94 Oximetry 08/21/17 08/21/17 08/21/17 03:00 03:30 04:00 Temperature 101.0 F H Pulse Rate 101 H 111 H 99 H Respiratory 23 24 22 Rate Blood Pressure 119/55 119/56 121/61 O2 Sat by Pulse 95 96 94 Oximetry 08/21/17 08/21/17 08/21/17 04:07 04:30 05:00 Temperature Pulse Rate 109 H 106 H 93 H Respiratory 21 20 19 Rate Blood Pressure 121/61 121/61 121/52 O2 Sat by Pulse 94 95 96 Oximetry 08/21/17 08/21/17 08/21/17 05:30 06:00 06:30 Temperature Pulse Rate 101 H 97 H 100 H Respiratory 20 19 18 Rate Blood Pressure 121/52 121/52 113/60 O2 Sat by Pulse 96 96 95 Oximetry 08/21/17 08/21/17 08/21/17 07:00 07:30 07:47 Temperature Pulse Rate 110 H 88 Respiratory 19 22 Rate Blood Pressure 113/60 149/72 O2 Sat by Pulse 95 95 95 Oximetry 08/21/17 08/21/17 08/21/17 08:00 08:30 09:00 Temperature 102.9 F H Pulse Rate 105 H 108 H 107 H Respiratory 22 22 21 Rate Blood Pressure 149/72 125/56 125/56 O2 Sat by Pulse 95 95 95 Oximetry 08/21/17 08/21/17 08/21/17 09:29 09:30 09:34 Temperature Pulse Rate 106 H 107 H 99 H Respiratory 22 Rate Blood Pressure 131/58 131/58 O2 Sat by Pulse 96 100 99 Oximetry 08/21/17 08/21/17 08/21/17 10:00 10:25 10:30 Temperature 98.8 F Pulse Rate 112 H 97 H Respiratory 14 22 Rate Blood Pressure 131/58 148/75 O2 Sat by Pulse 91 88 Oximetry 08/21/17 08/21/17 08/21/17 10:50 11:00 11:30 Temperature Pulse Rate 100 H 107 H 96 H Respiratory 22 12 Rate Blood Pressure 148/75 148/75 126/65 O2 Sat by Pulse 89 90 Oximetry 08/21/17 08/21/17 11:41 12:00 Temperature 99.7 F H Pulse Rate 102 H Respiratory Rate Blood Pressure 126/65 O2 Sat by Pulse 94 Oximetry Constitutional: no acute distress, other (obese; somnolent) Eyes: non-icteric ENT: oropharynx moist, oropharyngeal exudate pre, other (large neck circumference) Neck: supple, no lymphadenopathy, no JVD, other (RIJ VasCath) Effort: mildly labored Ascultation: Bilateral: diminished breath sounds, rales Percussion: Bilateral: not dull Cardiovascular: regular rate and rhythm, other (No R/M) Gastrointestinal: normoactive bowel sounds, soft, non-tender, other (distended; no palpable HSM) Integumentary: other (post-op scars) Extremities: no cyanosis, pink and warm, no ischemia or petechiae, edema (2+) Neurologic: non-focal exam (grossly), unable to assess (otherwise) Psychiatric: other (unable to assess) CBC and BMP: 08/21/17 04:15 08/22/17 07:15 ABG, PT/INR, D-dimer: ABG POC ABG pH 7.378 (7.35-7.45) 08/21/17 11:44 POC ABG pCO2 46.6 (35-45) H 08/21/17 11:44 POC ABG pO2 52 (80-105) L 08/21/17 11:44 POC ABG HCO3 27.4 08/21/17 11:44 POC ABG Total CO2 29 08/21/17 11:44 POC ABG O2 Sat 85 08/21/17 11:44 PT/INR, D-dimer PT 15.7 Sec. (12.2-14.9) H 08/14/17 05:00 INR 1.18 (0.87-1.13) H 08/14/17 05:00 D-Dimer 950.64 ng/mlDDU (0-234) H 08/14/17 05:00 Abnormal lab findings: Abnormal Labs 08/10/17 08/10/17 08/10/17 10:05 10:05 10:05 WBC RBC Hgb POC Hgb Hct POC Hct MCV 97 H MCH 33 H MCHC RDW Plt Count Lymph % (Auto) [place] % (Auto) Lymph # [place] # Seg Neutrophils % 72.9 H Seg Neutrophils # PT 11.6 L INR 0.81 L APTT Activated Clotting Time D-Dimer Heparin Anti-Xa Level POC ABG pH POC ABG pCO2 POC ABG pO2 Sodium Potassium Chloride Carbon Dioxide BUN Creatinine 0.7 L Glucose 196 H POC Glucose Lactic Acid Calcium Total Bilirubin AST ALT C-Reactive Protein Total Protein Albumin Ur Specific [place] Urine WBC (Auto) Crossmatch 08/11/17 08/11/17 08/11/17 06:50 07:03 09:50 WBC RBC Hgb POC Hgb Hct POC Hct MCV MCH MCHC RDW Plt Count Lymph % (Auto) [place] % (Auto) Lymph # [place] # Seg Neutrophils % Seg Neutrophils # PT INR APTT Activated Clotting Time D-Dimer Heparin Anti-Xa Level POC ABG pH 7.270 L POC ABG pCO2 49.1 H POC ABG pO2 117 H Sodium Potassium Chloride Carbon Dioxide BUN Creatinine Glucose POC Glucose 160 H Lactic Acid Calcium Total Bilirubin AST ALT C-Reactive Protein Total Protein Albumin Ur Specific [place] Urine WBC (Auto) Crossmatch See Detail 08/11/17 08/11/17 08/11/17 10:52 11:12 12:16 WBC RBC Hgb POC Hgb Hct POC Hct MCV MCH MCHC RDW Plt Count Lymph % (Auto) [place] % (Auto) Lymph # [place] # Seg Neutrophils % Seg Neutrophils # PT INR APTT Activated Clotting Time 191 H 153 H D-Dimer Heparin Anti-Xa Level POC ABG pH POC ABG pCO2 POC ABG pO2 Sodium Potassium Chloride Carbon Dioxide BUN Creatinine Glucose POC Glucose 176 H Lactic Acid Calcium Total Bilirubin AST ALT C-Reactive Protein Total Protein Albumin Ur Specific [place] Urine WBC (Auto) Crossmatch 08/11/17 08/11/17 08/11/17 12:27 13:07 14:39 WBC RBC Hgb POC Hgb 9.9 L 8.5 L Hct POC Hct 29 L 25 L MCV MCH MCHC RDW Plt Count Lymph % (Auto) [place] % (Auto) Lymph # [place] # Seg Neutrophils % Seg Neutrophils # PT INR APTT Activated Clotting Time 186 H D-Dimer Heparin Anti-Xa Level POC ABG pH POC ABG pCO2 POC ABG pO2 Sodium Potassium Chloride Carbon Dioxide BUN Creatinine Glucose POC Glucose 183 H 197 H Lactic Acid Calcium Total Bilirubin AST ALT C-Reactive Protein Total Protein Albumin Ur Specific [place] Urine WBC (Auto) Crossmatch 08/11/17 08/11/17 08/11/17 14:46 16:18 17:57 WBC 12.7 H RBC 3.00 L Hgb 9.5 L D POC Hgb Hct 28.3 L D POC Hct MCV MCH MCHC RDW 16.3 H Plt Count 105 L Lymph % (Auto) 6.7 L [place] % (Auto) Lymph # 0.8 L [place] # Seg Neutrophils % 86.3 H Seg Neutrophils # 10.9 H PT INR APTT Activated Clotting Time 164 H D-Dimer Heparin Anti-Xa Level POC ABG pH POC ABG pCO2 POC ABG pO2 Sodium Potassium Chloride Carbon Dioxide BUN Creatinine Glucose POC Glucose 192 H Lactic Acid Calcium Total Bilirubin AST ALT C-Reactive Protein Total Protein Albumin Ur Specific [place] Urine WBC (Auto) Crossmatch 08/11/17 08/11/17 08/11/17 17:57 20:00 20:00 WBC RBC Hgb 10.2 L POC Hgb Hct 31.1 L POC Hct MCV MCH MCHC RDW Plt Count 117 L Lymph % (Auto) [place] % (Auto) Lymph # [place] # Seg Neutrophils % Seg Neutrophils # PT 15.3 H INR 1.15 H APTT 97.7 H* Activated Clotting Time D-Dimer Heparin Anti-Xa Level POC ABG pH POC ABG pCO2 POC ABG pO2 Sodium Potassium Chloride 117.4 H Carbon Dioxide 18 L BUN Creatinine 0.7 L Glucose 143 H POC Glucose Lactic Acid Calcium 6.4 L D Total Bilirubin AST ALT C-Reactive Protein Total Protein Albumin Ur Specific [place] Urine WBC (Auto) Crossmatch 08/12/17 08/12/17 08/12/17 03:30 03:50 03:50 WBC RBC Hgb 9.2 L 9.1 L POC Hgb Hct 27.5 L 27.2 L POC Hct MCV MCH MCHC RDW Plt Count Lymph % (Auto) [place] % (Auto) Lymph # [place] # Seg Neutrophils % Seg Neutrophils # PT INR APTT Activated Clotting Time D-Dimer Heparin Anti-Xa Level POC ABG pH POC ABG pCO2 POC ABG pO2 Sodium Potassium Chloride 113.5 H Carbon Dioxide 13 L BUN Creatinine Glucose 243 H POC Glucose Lactic Acid Calcium 6.3 L Total Bilirubin AST ALT C-Reactive Protein Total Protein Albumin Ur Specific [place] Urine WBC (Auto) Crossmatch 08/12/17 08/12/17 08/12/17 07:36 08:48 16:16 WBC RBC Hgb POC Hgb Hct POC Hct MCV MCH MCHC RDW Plt Count Lymph % (Auto) [place] % (Auto) Lymph # [place] # Seg Neutrophils % Seg Neutrophils # PT INR APTT Activated Clotting Time D-Dimer Heparin Anti-Xa Level POC ABG pH 6.952 L 7.159 L POC ABG pCO2 49.1 H 47.8 H POC ABG pO2 76 L 106 H Sodium Potassium Chloride Carbon Dioxide BUN Creatinine Glucose POC Glucose 246 H Lactic Acid Calcium Total Bilirubin AST ALT C-Reactive Protein Total Protein Albumin Ur Specific [place] Urine WBC (Auto) Crossmatch 08/12/17 08/12/17 08/12/17 17:54 18:30 20:15 WBC 17.9 H RBC 3.29 L Hgb 10.0 L POC Hgb Hct 29.3 L POC Hct MCV MCH MCHC RDW 15.5 H Plt Count 76 L Lymph % (Auto) [place] % (Auto) Lymph # [place] # Seg Neutrophils % Seg Neutrophils # PT INR APTT Activated Clotting Time D-Dimer Heparin Anti-Xa Level POC ABG pH POC ABG pCO2 POC ABG pO2 Sodium Potassium Chloride Carbon Dioxide BUN Creatinine Glucose POC Glucose 240 H Lactic Acid Calcium Total Bilirubin AST ALT C-Reactive Protein Total Protein Albumin Ur Specific [place] 1.051 H Urine WBC (Auto) > 182.0 H Crossmatch 08/12/17 08/12/17 08/13/17 21:50 21:50 03:20 WBC RBC Hgb POC Hgb Hct POC Hct MCV MCH MCHC RDW Plt Count Lymph % (Auto) [place] % (Auto) Lymph # [place] # Seg Neutrophils % Seg Neutrophils # PT INR APTT Activated Clotting Time D-Dimer Heparin Anti-Xa Level < 0.10 L POC ABG pH POC ABG pCO2 POC ABG pO2 Sodium Potassium 5.4 H Chloride 110.8 H Carbon Dioxide 18 L BUN 30 H Creatinine 2.5 H D Glucose 216 H POC Glucose 235 H Lactic Acid Calcium 5.7 L* Total Bilirubin AST ALT C-Reactive Protein Total Protein Albumin Ur Specific [place] Urine WBC (Auto) Crossmatch 08/13/17 08/13/17 08/13/17 05:46 05:46 06:06 WBC 14.6 H RBC 2.49 L Hgb 7.6 L POC Hgb Hct 22.3 L D POC Hct MCV MCH MCHC RDW 15.7 H Plt Count 78 L Lymph % (Auto) 10.3 L [place] % (Auto) Lymph # [place] # Seg Neutrophils % 84.1 H Seg Neutrophils # 12.3 H PT INR APTT Activated Clotting Time D-Dimer Heparin Anti-Xa Level POC ABG pH 7.282 L POC ABG pCO2 POC ABG pO2 Sodium Potassium Chloride 107.5 H Carbon Dioxide 19 L BUN 35 H Creatinine 2.9 H Glucose 242 H POC Glucose Lactic Acid Calcium 6.3 L Total Bilirubin AST 1304 H ALT 533 H C-Reactive Protein Total Protein 4.4 L Albumin 2.8 L Ur Specific [place] Urine WBC (Auto) Crossmatch 08/13/17 08/13/17 08/13/17 07:10 07:10 09:00 WBC RBC Hgb POC Hgb Hct POC Hct MCV MCH MCHC RDW Plt Count Lymph % (Auto) [place] % (Auto) Lymph # [place] # Seg Neutrophils % Seg Neutrophils # PT 17.4 H INR 1.35 H APTT Activated Clotting Time D-Dimer 598.44 H Heparin Anti-Xa Level POC ABG pH POC ABG pCO2 POC ABG pO2 Sodium Potassium Chloride 107.2 H Carbon Dioxide 19 L BUN 35 H Creatinine 2.8 H Glucose 240 H POC Glucose Lactic Acid 3.10 H* Calcium 6.2 L Total Bilirubin AST ALT C-Reactive Protein Total Protein Albumin Ur Specific [place] Urine WBC (Auto) Crossmatch 08/13/17 08/13/17 08/13/17 17:55 18:31 21:19 WBC RBC Hgb POC Hgb Hct POC Hct MCV MCH MCHC RDW Plt Count Lymph % (Auto) [place] % (Auto) Lymph # [place] # Seg Neutrophils % Seg Neutrophils # PT INR APTT Activated Clotting Time D-Dimer Heparin Anti-Xa Level POC ABG pH 7.451 H POC ABG pCO2 33.0 L POC ABG pO2 53 L Sodium Potassium Chloride Carbon Dioxide BUN Creatinine Glucose POC Glucose 247 H Lactic Acid 2.20 H* Calcium Total Bilirubin AST ALT C-Reactive Protein Total Protein Albumin Ur Specific [place] Urine WBC (Auto) Crossmatch 08/13/17 08/14/17 08/14/17 23:34 00:10 05:00 WBC RBC Hgb POC Hgb Hct POC Hct MCV MCH MCHC RDW Plt Count Lymph % (Auto) [place] % (Auto) Lymph # [place] # Seg Neutrophils % Seg Neutrophils # PT 15.7 H INR 1.18 H APTT Activated Clotting Time D-Dimer 950.64 H Heparin Anti-Xa Level POC ABG pH POC ABG pCO2 POC ABG pO2 Sodium Potassium Chloride Carbon Dioxide BUN Creatinine Glucose POC Glucose 237 H Lactic Acid 2.70 H* Calcium Total Bilirubin AST ALT C-Reactive Protein Total Protein Albumin Ur Specific [place] Urine WBC (Auto) Crossmatch 08/14/17 08/14/17 08/14/17 05:00 05:11 10:26 WBC 14.2 H RBC 2.66 L Hgb 7.9 L POC Hgb Hct 23.2 L POC Hct MCV MCH MCHC RDW 16.0 H Plt Count 75 L Lymph % (Auto) [place] % (Auto) Lymph # [place] # Seg Neutrophils % Seg Neutrophils # PT INR APTT Activated Clotting Time D-Dimer Heparin Anti-Xa Level POC ABG pH POC ABG pCO2 POC ABG pO2 78 L Sodium Potassium Chloride Carbon Dioxide BUN Creatinine Glucose POC Glucose 227 H Lactic Acid Calcium Total Bilirubin AST ALT C-Reactive Protein Total Protein Albumin Ur Specific [place] Urine WBC (Auto) Crossmatch 08/14/17 08/14/17 08/14/17 11:28 11:28 12:06 WBC RBC Hgb POC Hgb Hct POC Hct MCV MCH MCHC RDW Plt Count Lymph % (Auto) [place] % (Auto) Lymph # [place] # Seg Neutrophils % Seg Neutrophils # PT INR APTT Activated Clotting Time D-Dimer Heparin Anti-Xa Level POC ABG pH POC ABG pCO2 POC ABG pO2 Sodium Potassium Chloride Carbon Dioxide BUN 43 H Creatinine 3.6 H Glucose 209 H POC Glucose 219 H Lactic Acid Calcium 7.6 L D Total Bilirubin AST ALT C-Reactive Protein 29.00 H Total Protein Albumin Ur Specific [place] Urine WBC (Auto) Crossmatch 08/14/17 08/14/17 08/14/17 17:57 19:54 23:23 WBC RBC Hgb POC Hgb Hct POC Hct MCV MCH MCHC RDW Plt Count Lymph % (Auto) [place] % (Auto) Lymph # [place] # Seg Neutrophils % Seg Neutrophils # PT INR APTT Activated Clotting Time D-Dimer Heparin Anti-Xa Level POC ABG pH POC ABG pCO2 46.5 H POC ABG pO2 64 L Sodium Potassium Chloride Carbon Dioxide BUN Creatinine Glucose POC Glucose 178 H 170 H Lactic Acid Calcium Total Bilirubin AST ALT C-Reactive Protein Total Protein Albumin Ur Specific [place] Urine WBC (Auto) Crossmatch 08/15/17 08/15/17 08/15/17 03:44 04:40 05:19 WBC 12.6 H RBC 2.49 L Hgb 7.4 L POC Hgb Hct 22.1 L POC Hct MCV MCH MCHC RDW 16.5 H Plt Count 64 L Lymph % (Auto) [place] % (Auto) Lymph # [place] # Seg Neutrophils % Seg Neutrophils # PT INR APTT Activated Clotting Time D-Dimer Heparin Anti-Xa Level POC ABG pH POC ABG pCO2 48.1 H POC ABG pO2 68 L Sodium Potassium Chloride Carbon Dioxide BUN Creatinine Glucose POC Glucose 154 H Lactic Acid Calcium Total Bilirubin AST ALT C-Reactive Protein Total Protein Albumin Ur Specific [place] Urine WBC (Auto) Crossmatch 08/15/17 08/15/17 08/15/17 12:20 13:22 18:05 WBC RBC Hgb POC Hgb Hct POC Hct MCV MCH MCHC RDW Plt Count Lymph % (Auto) [place] % (Auto) Lymph # [place] # Seg Neutrophils % Seg Neutrophils # PT INR APTT Activated Clotting Time D-Dimer Heparin Anti-Xa Level POC ABG pH POC ABG pCO2 POC ABG pO2 Sodium Potassium Chloride Carbon Dioxide BUN 45 H Creatinine 4.1 H Glucose 141 H POC Glucose 147 H 170 H Lactic Acid Calcium 7.8 L Total Bilirubin AST ALT C-Reactive Protein Total Protein Albumin Ur Specific [place] Urine WBC (Auto) Crossmatch 08/15/17 08/16/17 08/16/17 23:43 04:42 05:22 WBC 14.2 H RBC 2.54 L Hgb 7.5 L POC Hgb Hct 22.6 L POC Hct MCV MCH MCHC RDW 16.4 H Plt Count 73 L Lymph % (Auto) 6.6 L [place] % (Auto) 10.1 H Lymph # 0.9 L [place] # 1.4 H Seg Neutrophils % 83.1 H Seg Neutrophils # 11.8 H PT INR APTT Activated Clotting Time D-Dimer Heparin Anti-Xa Level POC ABG pH POC ABG pCO2 POC ABG pO2 71 L Sodium Potassium Chloride Carbon Dioxide BUN Creatinine Glucose POC Glucose 155 H Lactic Acid Calcium Total Bilirubin AST ALT C-Reactive Protein Total Protein Albumin Ur Specific [place] Urine WBC (Auto) Crossmatch 08/16/17 08/16/17 08/16/17 06:20 08:49 11:54 WBC RBC Hgb POC Hgb Hct POC Hct MCV MCH MCHC RDW Plt Count Lymph % (Auto) [place] % (Auto) Lymph # [place] # Seg Neutrophils % Seg Neutrophils # PT INR APTT Activated Clotting Time D-Dimer Heparin Anti-Xa Level POC ABG pH POC ABG pCO2 POC ABG pO2 Sodium Potassium Chloride Carbon Dioxide BUN Creatinine Glucose POC Glucose 165 H 191 H 188 H Lactic Acid Calcium Total Bilirubin AST ALT C-Reactive Protein Total Protein Albumin Ur Specific [place] Urine WBC (Auto) Crossmatch 08/16/17 08/16/17 08/16/17 13:00 18:32 23:33 WBC RBC Hgb POC Hgb Hct POC Hct MCV MCH MCHC RDW Plt Count Lymph % (Auto) [place] % (Auto) Lymph # [place] # Seg Neutrophils % Seg Neutrophils # PT INR APTT Activated Clotting Time D-Dimer Heparin Anti-Xa Level POC ABG pH POC ABG pCO2 POC ABG pO2 Sodium Potassium Chloride Carbon Dioxide BUN 47 H Creatinine 3.4 H Glucose 179 H POC Glucose 219 H 179 H Lactic Acid Calcium 8.2 L Total Bilirubin AST ALT C-Reactive Protein Total Protein Albumin Ur Specific [place] Urine WBC (Auto) Crossmatch 08/17/17 08/17/17 08/17/17 04:25 04:30 05:32 WBC 15.2 H RBC 2.60 L Hgb 7.6 L POC Hgb Hct 23.8 L POC Hct MCV MCH MCHC RDW 16.3 H Plt Count 92 L Lymph % (Auto) [place] % (Auto) Lymph # [place] # Seg Neutrophils % Seg Neutrophils # PT INR APTT Activated Clotting Time D-Dimer Heparin Anti-Xa Level POC ABG pH POC ABG pCO2 POC ABG pO2 57 L Sodium Potassium Chloride Carbon Dioxide BUN 63 H Creatinine 3.4 H Glucose 155 H POC Glucose Lactic Acid Calcium 8.3 L Total Bilirubin 1.40 H AST 99 H ALT 93 H C-Reactive Protein Total Protein 5.6 L D Albumin 3.1 L Ur Specific [place] Urine WBC (Auto) Crossmatch 08/17/17 08/17/17 08/17/17 06:36 12:37 17:44 WBC RBC Hgb POC Hgb Hct POC Hct MCV MCH MCHC RDW Plt Count Lymph % (Auto) [place] % (Auto) Lymph # [place] # Seg Neutrophils % Seg Neutrophils # PT INR APTT Activated Clotting Time D-Dimer Heparin Anti-Xa Level POC ABG pH POC ABG pCO2 POC ABG pO2 Sodium Potassium Chloride Carbon Dioxide BUN Creatinine Glucose POC Glucose 167 H 203 H 158 H Lactic Acid Calcium Total Bilirubin AST ALT C-Reactive Protein Total Protein Albumin Ur Specific [place] Urine WBC (Auto) Crossmatch 08/17/17 08/18/17 08/18/17 23:55 04:30 05:57 WBC RBC 2.40 L Hgb 7.3 L POC Hgb Hct 21.8 L POC Hct MCV MCH MCHC RDW 16.3 H Plt Count 95 L Lymph % (Auto) [place] % (Auto) Lymph # [place] # Seg Neutrophils % Seg Neutrophils # PT INR APTT Activated Clotting Time D-Dimer Heparin Anti-Xa Level POC ABG pH POC ABG pCO2 POC ABG pO2 Sodium Potassium Chloride Carbon Dioxide BUN Creatinine Glucose POC Glucose 146 H 179 H Lactic Acid Calcium Total Bilirubin AST ALT C-Reactive Protein Total Protein Albumin Ur Specific [place] Urine WBC (Auto) Crossmatch 08/18/17 08/18/17 08/18/17 08:20 08:20 08:32 WBC RBC Hgb POC Hgb Hct POC Hct MCV MCH MCHC RDW Plt Count Lymph % (Auto) [place] % (Auto) Lymph # [place] # Seg Neutrophils % Seg Neutrophils # PT INR APTT Activated Clotting Time D-Dimer Heparin Anti-Xa Level POC ABG pH POC ABG pCO2 POC ABG pO2 Sodium 146 H Potassium Chloride 108.4 H Carbon Dioxide BUN 62 H Creatinine 2.4 H Glucose 125 H POC Glucose 161 H Lactic Acid Calcium Total Bilirubin AST ALT C-Reactive Protein 13.90 H Total Protein Albumin Ur Specific [place] Urine WBC (Auto) Crossmatch 08/18/17 08/18/17 08/18/17 11:33 17:18 23:31 WBC RBC Hgb POC Hgb Hct POC Hct MCV MCH MCHC RDW Plt Count Lymph % (Auto) [place] % (Auto) Lymph # [place] # Seg Neutrophils % Seg Neutrophils # PT INR APTT Activated Clotting Time D-Dimer Heparin Anti-Xa Level POC ABG pH POC ABG pCO2 POC ABG pO2 Sodium Potassium Chloride Carbon Dioxide BUN Creatinine Glucose POC Glucose 165 H 126 H 166 H Lactic Acid Calcium Total Bilirubin AST ALT C-Reactive Protein Total Protein Albumin Ur Specific [place] Urine WBC (Auto) Crossmatch 08/19/17 08/19/17 08/19/17 04:33 05:00 05:44 WBC RBC 1.69 L Hgb 5.1 L* POC Hgb Hct 15.9 L* POC Hct MCV 95 H MCH MCHC RDW 17.1 H Plt Count 75 L Lymph % (Auto) [place] % (Auto) Lymph # [place] # Seg Neutrophils % Seg Neutrophils # PT INR APTT Activated Clotting Time D-Dimer Heparin Anti-Xa Level POC ABG pH POC ABG pCO2 POC ABG pO2 65 L Sodium Potassium Chloride Carbon Dioxide BUN Creatinine Glucose POC Glucose 174 H Lactic Acid Calcium Total Bilirubin AST ALT C-Reactive Protein Total Protein Albumin Ur Specific [place] Urine WBC (Auto) Crossmatch 08/19/17 08/19/17 08/19/17 08:26 09:45 11:05 WBC RBC Hgb 8.8 L D POC Hgb Hct 26.7 L D POC Hct MCV MCH MCHC RDW Plt Count Lymph % (Auto) [place] % (Auto) Lymph # [place] # Seg Neutrophils % Seg Neutrophils # PT INR APTT Activated Clotting Time D-Dimer Heparin Anti-Xa Level POC ABG pH POC ABG pCO2 POC ABG pO2 Sodium 151 H Potassium 3.3 L Chloride 112.5 H Carbon Dioxide BUN 65 H Creatinine 1.6 H Glucose 145 H POC Glucose Lactic Acid Calcium 7.9 L Total Bilirubin AST ALT C-Reactive Protein Total Protein Albumin Ur Specific [place] Urine WBC (Auto) Crossmatch See Detail 08/19/17 08/19/17 08/19/17 11:34 18:02 23:37 WBC RBC Hgb POC Hgb Hct POC Hct MCV MCH MCHC RDW Plt Count Lymph % (Auto) [place] % (Auto) Lymph # [place] # Seg Neutrophils % Seg Neutrophils # PT INR APTT Activated Clotting Time D-Dimer Heparin Anti-Xa Level POC ABG pH POC ABG pCO2 POC ABG pO2 Sodium Potassium Chloride Carbon Dioxide BUN Creatinine Glucose POC Glucose 166 H 224 H 222 H Lactic Acid Calcium Total Bilirubin AST ALT C-Reactive Protein Total Protein Albumin Ur Specific [place] Urine WBC (Auto) Crossmatch 08/20/17 08/20/17 08/20/17 04:26 04:45 04:45 WBC 14.4 H RBC 2.97 L Hgb 8.9 L POC Hgb Hct 26.9 L POC Hct MCV MCH MCHC RDW 16.8 H Plt Count Lymph % (Auto) [place] % (Auto) Lymph # [place] # Seg Neutrophils % Seg Neutrophils # PT INR APTT Activated Clotting Time D-Dimer Heparin Anti-Xa Level POC ABG pH 7.497 H POC ABG pCO2 33.4 L POC ABG pO2 68 L Sodium 153 H Potassium Chloride 112.8 H Carbon Dioxide BUN 71 H Creatinine 1.7 H Glucose 244 H POC Glucose Lactic Acid Calcium Total Bilirubin AST ALT C-Reactive Protein Total Protein Albumin Ur Specific [place] Urine WBC (Auto) Crossmatch 08/20/17 08/20/17 08/20/17 05:42 12:31 17:56 WBC RBC Hgb POC Hgb Hct POC Hct MCV MCH MCHC RDW Plt Count Lymph % (Auto) [place] % (Auto) Lymph # [place] # Seg Neutrophils % Seg Neutrophils # PT INR APTT Activated Clotting Time D-Dimer Heparin Anti-Xa Level POC ABG pH POC ABG pCO2 POC ABG pO2 Sodium Potassium Chloride Carbon Dioxide BUN Creatinine Glucose POC Glucose 224 H 274 H 267 H Lactic Acid Calcium Total Bilirubin AST ALT C-Reactive Protein Total Protein Albumin Ur Specific [place] Urine WBC (Auto) Crossmatch 08/20/17 08/20/17 08/21/17 22:25 23:52 04:15 WBC 13.3 H RBC 2.84 L Hgb 8.3 L POC Hgb Hct 26.8 L POC Hct MCV MCH MCHC 31 L RDW 17.8 H Plt Count Lymph % (Auto) [place] % (Auto) Lymph # [place] # Seg Neutrophils % Seg Neutrophils # PT INR APTT Activated Clotting Time D-Dimer Heparin Anti-Xa Level POC ABG pH POC ABG pCO2 POC ABG pO2 Sodium Potassium Chloride Carbon Dioxide BUN Creatinine Glucose POC Glucose 241 H Lactic Acid Calcium Total Bilirubin AST ALT C-Reactive Protein 22.10 H Total Protein Albumin Ur Specific [place] Urine WBC (Auto) Crossmatch 08/21/17 08/21/17 08/21/17 04:15 05:50 06:23 WBC RBC Hgb POC Hgb Hct POC Hct MCV MCH MCHC RDW Plt Count Lymph % (Auto) [place] % (Auto) Lymph # [place] # Seg Neutrophils % Seg Neutrophils # PT INR APTT Activated Clotting Time D-Dimer Heparin Anti-Xa Level POC ABG pH POC ABG pCO2 POC ABG pO2 74 L Sodium 158 H Potassium 3.2 L Chloride 118.8 H Carbon Dioxide BUN 74 H Creatinine 1.8 H Glucose 227 H POC Glucose 230 H Lactic Acid Calcium Total Bilirubin AST ALT C-Reactive Protein Total Protein Albumin Ur Specific [place] Urine WBC (Auto) Crossmatch 08/21/17 08/21/17 08/21/17 11:04 11:44 12:34 WBC RBC Hgb POC Hgb Hct POC Hct MCV MCH MCHC RDW Plt Count Lymph % (Auto) [place] % (Auto) Lymph # [place] # Seg Neutrophils % Seg Neutrophils # PT INR APTT Activated Clotting Time D-Dimer Heparin Anti-Xa Level POC ABG pH POC ABG pCO2 46.6 H POC ABG pO2 52 L Sodium Potassium Chloride Carbon Dioxide BUN Creatinine Glucose POC Glucose 327 H 285 H Lactic Acid Calcium Total Bilirubin AST ALT C-Reactive Protein Total Protein Albumin Ur Specific [place] Urine WBC (Auto) Crossmatch Chest x-ray: pending Allied health notes reviewed: nursing
[2017-08-21] MEDS: NORCO 5/325 PO PRN ×2 (13:59→19:23)
--- NOTE | 2017-08-21 16:38 | Progress Note ---
Assessment and Plan Continue supportive care per consultants. Pt appears more alert today. On TF Overall making slow improvements. Gen Surgery has re-eval'd pt in prep for possible trach and peg. - Patient Problems (1) Atherosclerosis of [place] arteries of extremity with intermittent claudication Current Visit: No Status: Acute (2) Abdominal distention Current Visit: Yes Status: Acute (3) Acute renal failure due to tubular necrosis Current Visit: Yes Status: Acute (4) Hemorrhagic shock Current Visit: Yes Status: Acute (5) Metabolic acidosis Current Visit: Yes Status: Acute Subjective Date of service: 08/21/17 Principal diagnosis: Acute Hypoxemic Respiratory Failure; Hemorrhagic Shock; WILLIAM on Dilaysis;PVD Interval history: Pt awake on vent. Nods head to questions. C/o pain earlier and given norco per nursing staff. Objective - Constitutional Vitals: Vital Signs - 12hr 08/21/17 08/21/17 08/21/17 05:00 05:30 06:00 Temperature Pulse Rate 93 H 101 H 97 H Pulse Rate [ From Monitor] Respiratory 19 20 19 Rate Blood Pressure 121/52 121/52 121/52 O2 Sat by Pulse 96 96 96 Oximetry 08/21/17 08/21/17 08/21/17 06:30 07:00 07:30 Temperature Pulse Rate 100 H 110 H 88 Pulse Rate [ From Monitor] Respiratory 18 19 22 Rate Blood Pressure 113/60 113/60 149/72 O2 Sat by Pulse 95 95 95 Oximetry 08/21/17 08/21/17 08/21/17 07:47 08:00 08:30 Temperature 102.9 F H Pulse Rate 105 H 108 H Pulse Rate [ From Monitor] Respiratory 22 22 Rate Blood Pressure 149/72 125/56 O2 Sat by Pulse 95 95 95 Oximetry 08/21/17 08/21/17 08/21/17 09:00 09:29 09:30 Temperature Pulse Rate 107 H 106 H 107 H Pulse Rate [ From Monitor] Respiratory 21 22 Rate Blood Pressure 125/56 131/58 131/58 O2 Sat by Pulse 95 96 100 Oximetry 08/21/17 08/21/17 08/21/17 09:34 10:00 10:25 Temperature 98.8 F Pulse Rate 99 H 112 H Pulse Rate [ From Monitor] Respiratory 14 Rate Blood Pressure 131/58 O2 Sat by Pulse 99 91 Oximetry 08/21/17 08/21/1708/21/18 10:30 10:50 11:00 Temperature Pulse Rate 97 H 100 H 107 H Pulse Rate [ From Monitor] Respiratory 22 22 Rate Blood Pressure 148/75 148/75 148/75 O2 Sat by Pulse 88 89 Oximetry 08/21/17 08/21/17 08/21/17 11:30 11:41 12:00 Temperature 99.7 F H Pulse Rate 96 H 102 H 96 H Pulse Rate [ 76 From Monitor] Respiratory 12 19 Rate Blood Pressure 126/65 126/65 118/65 O2 Sat by Pulse 90 94 93 Oximetry 08/21/17 08/21/17 08/21/17 12:30 13:00 13:30 Temperature Pulse Rate 95 H 95 H 94 H Pulse Rate [ From Monitor] Respiratory 19 19 12 Rate Blood Pressure 118/65 118/65 107/61 O2 Sat by Pulse 94 93 94 Oximetry 08/21/17 08/21/17 08/21/17 13:59 14:00 14:30 Temperature Pulse Rate 89 81 Pulse Rate [ From Monitor] Respiratory 16 21 20 Rate Blood Pressure 107/61 112/62 O2 Sat by Pulse 92 94 Oximetry 08/21/17 08/21/17 08/21/17 15:00 15:30 16:00 Temperature 98.4 F 98.9 F Pulse Rate 83 Pulse Rate [ From Monitor] Respiratory 16 Rate Blood Pressure 107/63 O2 Sat by Pulse 93 Oximetry General appearance: Present: no acute distress - EENT Eyes: EOM intact ENT: hearing intact, other (ETT in place) - Respiratory Respiratory effort: other (on mech vent) Extremities: no ischemia, normal temperature Extremity abnormal: other (no obvious skin wounds, feet supported by pillows under calf to off load wt from heels.) - Gastrointestinal General gastrointestinal: Present: soft, distended, other (continued scrotal edema, but overall diffuse anasarca like swelling improving) - Psychiatric Psychiatric: intact judgment & insight, cooperative - Labs CBC & Chem 7: 08/21/17 04:15 08/21/17 04:15 Labs: Abnormal lab results 08/20/17 08/20/17 08/20/17 Range/Units 17:56 22:25 23:52 WBC (4.5-11.0) K/mm3 RBC (3.65-5.03) M/mm3 Hgb (11.8-15.2) gm/dl Hct (35.5-45.6) % MCHC (32-34) % RDW (13.2-15.2) % POC ABG pCO2 (35-45) POC ABG pO2 (80-105) Sodium (137-145) mmol/L Potassium (3.6-5.0) mmol/L Chloride (98-107) mmol/L BUN (9-20) mg/dL Creatinine (0.8-1.5) mg/dL Glucose (75-100) mg/dL POC Glucose 267 H 241 H (70-105) C-Reactive Protein 22.10 H (0.00-1.30) mg/dL 08/21/17 08/21/17 08/21/17 Range/Units 04:15 04:15 05:50 WBC 13.3 H (4.5-11.0) K/mm3 RBC 2.84 L (3.65-5.03) M/mm3 Hgb 8.3 L (11.8-15.2) gm/dl Hct 26.8 L (35.5-45.6) % MCHC 31 L (32-34) % RDW 17.8 H (13.2-15.2) % POC ABG pCO2 (35-45) POC ABG pO2 (80-105) Sodium 158 H (137-145) mmol/L Potassium 3.2 L (3.6-5.0) mmol/L Chloride 118.8 H (98-107) mmol/L BUN 74 H (9-20) mg/dL Creatinine 1.8 H (0.8-1.5) mg/dL Glucose 227 H (75-100) mg/dL POC Glucose 230 H (70-105) C-Reactive Protein (0.00-1.30) mg/dL 08/21/17 08/21/17 08/21/17 Range/Units 06:23 11:04 11:44 WBC (4.5-11.0) K/mm3 RBC (3.65-5.03) M/mm3 Hgb (11.8-15.2) gm/dl Hct (35.5-45.6) % MCHC (32-34) % RDW (13.2-15.2) % POC ABG pCO2 46.6 H (35-45) POC ABG pO2 74 L 52 L (80-105) Sodium (137-145) mmol/L Potassium (3.6-5.0) mmol/L Chloride (98-107) mmol/L BUN (9-20) mg/dL Creatinine (0.8-1.5) mg/dL Glucose (75-100) mg/dL POC Glucose 327 H (70-105) C-Reactive Protein (0.00-1.30) mg/dL 08/21/17 Range/Units 12:34 WBC (4.5-11.0) K/mm3 RBC (3.65-5.03) M/mm3 Hgb (11.8-15.2) gm/dl Hct (35.5-45.6) % MCHC (32-34) % RDW (13.2-15.2) % POC ABG pCO2 (35-45) POC ABG pO2 (80-105) Sodium (137-145) mmol/L Potassium (3.6-5.0) mmol/L Chloride (98-107) mmol/L BUN (9-20) mg/dL Creatinine (0.8-1.5) mg/dL Glucose (75-100) mg/dL POC Glucose 285 H (70-105) C-Reactive Protein (0.00-1.30) mg/dL
--- NOTE | 2017-08-21 17:21 | Progress Note ---
Assessment and Plan - Patient Problems (1) Acute renal failure due to tubular necrosis Current Visit: Yes Status: Acute Plan to address problem: Acute renal failure / acute tubular necrosis nonoliguric with improving urine output. Still with volume overload but improving with diuresis. Kidney indices are unchanged. Patient in negative fluid balance. We will continue to hold dialysis for now and monitor for further signs of renal recovery. (2) Hypernatremia Current Visit: Yes Status: Acute Plan to address problem: Sodium is still worsening. Increase free water via the feeding tube and start D5W if still worsening. Follow-up sodium (3) Hypokalemia Current Visit: Yes Status: Acute Plan to address problem: Supplement potassium and follow up levels. (4) Hemorrhagic shock Current Visit: Yes Status: Acute Plan to address problem: Status post multiple transfusions. Appears to be resolving. Follow-up hemoglobin (5) Hypocalcemia Current Visit: Yes Status: Acute Plan to address problem: Supplemental calcium as indicated. (6) Metabolic acidosis Current Visit: Yes Status: Acute Plan to address problem: Bicarbonate has improved. Follow bicarbonate level (7) Atherosclerosis of [place] arteries of extremity with intermittent claudication Current Visit: No Status: Acute Plan to address problem: Continue management per vascular surgeon (8) Anemia Current Visit: Yes Status: Acute Plan to address problem: Follow-up hemoglobin. Consider packed red blood cell transfusion Subjective Date of service: 08/21/17 Principal diagnosis: Acute Hypoxemic Respiratory Failure; Hemorrhagic Shock; WILLIAM on Dilaysis;PVD Interval history: Patient seen lying in bed in intensive care unit. He is intubated on the ventilator. He is now attempting to communicate nonverbally. Diuresing spontaneously 0.6 L negative fluid balance yesterday Objective - Exam Narrative Exam: Middle aged male lying in bed intubated on ventilator HEENT: NCAT, endotracheal tube intact, orogastric tube intact Neck: Supple, no venous distention CVS: S1S2 RRR with no murmur, rub or gallop Chest: Clear to auscultation Abdomen: Distended, soft to firm, nontender, no organomegaly, bowel sounds are present Extremities: 2+ pitting edema, no cyanosis. Skin warm and dry with areas of ecchymoses Neuro: Moves on stimulation, not following commands - Vital Signs Vital signs: Vital Signs - 12hr 08/21/17 08/21/17 08/21/17 05:30 06:00 06:30 Temperature Pulse Rate 101 H 97 H 100 H Pulse Rate [ From Monitor] Respiratory 20 19 18 Rate Blood Pressure 121/52 121/52 113/60 O2 Sat by Pulse 96 96 95 Oximetry 08/21/17 08/21/17 08/21/17 07:00 07:30 07:47 Temperature Pulse Rate 110 H 88 Pulse Rate [ From Monitor] Respiratory 19 22 Rate Blood Pressure 113/60 149/72 O2 Sat by Pulse 95 95 95 Oximetry 08/21/17 08/21/17 08/21/17 08:00 08:30 09:00 Temperature 102.9 F H Pulse Rate 105 H 108 H 107 H Pulse Rate [ From Monitor] Respiratory 22 22 21 Rate Blood Pressure 149/72 125/56 125/56 O2 Sat by Pulse 95 95 95 Oximetry 08/21/17 08/21/17 08/21/17 09:29 09:30 09:34 Temperature Pulse Rate 106 H 107 H 99 H Pulse Rate [ From Monitor] Respiratory 22 Rate Blood Pressure 131/58 131/58 O2 Sat by Pulse 96 100 99 Oximetry 08/21/17 08/21/17 08/21/17 10:00 10:25 10:30 Temperature 98.8 F Pulse Rate 112 H 97 H Pulse Rate [ From Monitor] Respiratory 14 22 Rate Blood Pressure 131/58 148/75 O2 Sat by Pulse 91 88 Oximetry 08/21/17 08/21/17 08/21/17 10:50 11:00 11:30 Temperature Pulse Rate 100 H 107 H 96 H Pulse Rate [ From Monitor] Respiratory 22 12 Rate Blood Pressure 148/75 148/75 126/65 O2 Sat by Pulse 89 90 Oximetry 08/21/17 08/21/17 08/21/17 11:41 12:00 12:30 Temperature 99.7 F H Pulse Rate 102 H 96 H 95 H Pulse Rate [ 76 From Monitor] Respiratory 19 19 Rate Blood Pressure 126/65 118/65 118/65 O2 Sat by Pulse 94 93 94 Oximetry 08/21/17 08/21/17 08/21/17 13:00 13:30 13:59 Temperature Pulse Rate 95 H 94 H Pulse Rate [ From Monitor] Respiratory 19 12 16 Rate Blood Pressure 118/65 107/61 O2 Sat by Pulse 93 94 Oximetry 08/21/17 08/21/17 08/21/17 14:00 14:30 15:00 Temperature Pulse Rate 89 81 83 Pulse Rate [ From Monitor] Respiratory 21 20 16 Rate Blood Pressure 107/61 112/62 107/63 O2 Sat by Pulse 92 94 93 Oximetry 08/21/17 08/21/17 08/21/17 15:30 16:00 16:31 Temperature 98.4 F 98.9 F Pulse Rate 92 H 86 86 Pulse Rate [ From Monitor] Respiratory 16 19 17 Rate Blood Pressure 107/63 111/62 111/62 O2 Sat by Pulse 93 94 95 Oximetry 08/21/17 17:00 Temperature Pulse Rate 84 Pulse Rate [ From Monitor] Respiratory 17 Rate Blood Pressure 115/62 O2 Sat by Pulse 94 Oximetry - Lab 08/21/17 04:15 08/21/17 04:15 Most recent lab results Calcium 8.7 mg/dL (8.4-10.2) 08/21/17 04:15
[2017-08-21] MEDS ORDERED: POTASSIUM CHLORIDE FEEDTUBE ONE (18:00)
[2017-08-21] MEDS: D5W 1,000 ML IV SCH (18:47)
[2017-08-21] MEDS: SENOKOT S PO SCH (21:15)
[2017-08-22] MEDS: HumaLOG SUB-Q SCH ×4 (01:09→17:17)
[2017-08-22] MEDS: HEPARIN SUB-Q SCH ×3 (06:25→21:56)
[2017-08-22 08:00] LABS: Calcium 8.3 mg/dL (8.4-10.2)
--- NOTE | 2017-08-22 08:14 | Progress Note ---
History Interval history: Patient still intubated, 24 hr event reviewed, Fever more alert Hospitalist Physical - Physical exam Narrative exam: General:Not in acute distress, lying in bed,morbidly obese,intubated HEENT:Normocephalic, atraumatic Neck:supple Lungs:Clear to auscultation bilaterally , no rales , no wheeze Heart:S1 and S2 regular, no murmurs, rubs or gallop Abd: soft, non tender, non distended, normal bowel sounds Ext: leg edema, no clubbing or cyanosis Neuro: Intubated, opens eyes, more alert, now follows commands, tries to talk - Constitutional Vitals: Temp Pulse Resp BP Pulse Ox 98.2 F 86 18 116/63 94 08/22/17 08:00 08/22/17 08:01 08/22/17 08:01 08/22/17 08:01 08/22/17 08:01 General appearance: Present: no acute distress, obese Results - Labs CBC & Chem 7: 08/21/17 04:15 08/22/17 07:15 Labs: Laboratory Last Values WBC 13.3 K/mm3 (4.5-11.0) H 08/21/17 04:15 RBC 2.84 M/mm3 (3.65-5.03) L 08/21/17 04:15 Hgb 8.3 gm/dl (11.8-15.2) L 08/21/17 04:15 POC Hgb 8.5 (12-17) L 08/11/17 14:39 Hct 26.8 % (35.5-45.6) L 08/21/17 04:15 POC Hct 25 (38-51) L 08/11/17 14:39 MCV 94 fl (84-94) 08/21/17 04:15 MCH 29 pg (28-32) 08/21/17 04:15 MCHC 31 % (32-34) L 08/21/17 04:15 RDW 17.8 % (13.2-15.2) H 08/21/17 04:15 Plt Count 157 K/mm3 (140-440) 08/21/17 04:15 Lymph % (Auto) 6.6 % (13.4-35.0) L 08/16/17 04:42 [place] % (Auto) 10.1 % (0.0-7.3) H 08/16/17 04:42 Eos % (Auto) 0.1 % (0.0-4.3) 08/16/17 04:42 Baso % (Auto) 0.1 % (0.0-1.8) 08/16/17 04:42 Lymph # 0.9 K/mm3 (1.2-5.4) L 08/16/17 04:42 [place] # 1.4 K/mm3 (0.0-0.8) H 08/16/17 04:42 Eos # 0.0 K/mm3 (0.0-0.4) 08/16/17 04:42 Baso # 0.0 K/mm3 (0.0-0.1) 08/16/17 04:42 Seg Neutrophils % 83.1 % (40.0-70.0) H 08/16/17 04:42 Seg Neutrophils # 11.8 K/mm3 (1.8-7.7) H 08/16/17 04:42 PT 15.7 Sec. (12.2-14.9) H 08/14/17 05:00 INR 1.18 (0.87-1.13) H 08/14/17 05:00 APTT 31.7 Sec. (24.2-36.6) 08/14/17 05:00 Activated Clotting Time 164 (74-137) H 08/11/17 14:46 Fibrinogen 424 mg/dl (211-480) 08/14/17 05:00 D-Dimer 950.64 ng/mlDDU (0-234) H 08/14/17 05:00 Heparin Anti-Xa Level < 0.10 U.I./ml (0.3-0.7) L 08/12/17 21:50 Heparin Anti-Xa, Unfract Negative (Negative) 08/13/17 05:46 POC ABG pH 7.378 (7.35-7.45) 08/21/17 11:44 POC ABG pCO2 46.6 (35-45) H 08/21/17 11:44 POC ABG pO2 52 (80-105) L 08/21/17 11:44 POC ABG HCO3 27.4 08/21/17 11:44 POC ABG Total CO2 29 08/21/17 11:44 POC ABG O2 Sat 85 08/21/17 11:44 POC ABG Base Excess 2 08/21/17 11:44 POC Sodium 142 mmol/L (138-146) 08/11/17 14:39 POC Potassium 4.2 (3.5-4.9) 08/11/17 14:39 POC Chloride 109 (98-109) 08/11/17 14:39 FiO2 40 % 08/21/17 11:44 Sodium 156 mmol/L (137-145) H 08/22/17 07:15 Potassium 3.2 mmol/L (3.6-5.0) L 08/22/17 07:15 Chloride 117.4 mmol/L (98-107) H 08/22/17 07:15 Carbon Dioxide 27 mmol/L (22-30) 08/22/17 07:15 Anion Gap 15 mmol/L 08/22/17 07:15 POC BUN 13 mg/dl (8-26) 08/11/17 14:39 BUN 71 mg/dL (9-20) H 08/22/17 07:15 Creatinine 1.6 mg/dL (0.8-1.5) H 08/22/17 07:15 Estimated GFR 43 ml/min 08/22/17 07:15 BUN/Creatinine Ratio 44 % 08/22/17 07:15 Glucose 217 mg/dL (75-100) H 08/22/17 07:15 POC Glucose 231 (70-105) H 08/22/17 06:20 Lactic Acid 1.70 mmol/L (0.7-2.0) 08/14/17 05:00 Calcium 8.3 mg/dL (8.4-10.2) L 08/22/17 07:15 Total Bilirubin 1.40 mg/dL (0.1-1.2) H 08/17/17 04:30 AST 99 units/L (5-40) H 08/17/17 04:30 ALT 93 units/L (7-56) H 08/17/17 04:30 Alkaline Phosphatase 86 units/L (35-129) 08/17/17 04:30 C-Reactive Protein 22.10 mg/dL (0.00-1.30) H 08/20/17 22:25 Total Protein 5.6 g/dL (6.3-8.2) L D 08/17/17 04:30 Albumin 3.1 g/dL (3.9-5) L 08/17/17 04:30 Albumin/Globulin Ratio 1.2 % 08/17/17 04:30 Serotonin Release Assay See scanned report 08/13/17 05:46 Urine Color [place] (Yellow) 08/20/17 20:25 Urine Turbidity Clear (Clear) 08/20/17 20:25 Urine pH 5.0 (5.0-7.0) 08/20/17 20:25 Ur Specific [place] 1.016 (1.003-1.030) 08/20/17 20:25 Urine Protein 30 mg/dl mg/dL (Negative) 08/20/17 20:25 Urine Glucose (UA) Neg mg/dL (Negative) 08/20/17 20:25 Urine Ketones Neg mg/dL (Negative) 08/20/17 20:25 Urine Blood Mod (Negative) 08/20/17 20:25 Urine Nitrite Neg (Negative) 08/20/17 20:25 Urine Bilirubin Neg (Negative) 08/20/17 20:25 Urine Urobilinogen 4.0 mg/dL (<2.0) 08/20/17 20:25 Ur Leukocyte Esterase Neg (Negative) 08/20/17 20:25 Urine WBC (Auto) 2.0 /HPF (0.0-6.0) 08/20/17 20:25 Urine RBC (Auto) 32.0 /HPF (0.0-6.0) 08/20/17 20:25 U Epithel Cells (Auto) < 1.0 /HPF (0-13.0) 08/20/17 20:25 Urine Bacteria (Auto) 1+ /HPF (Negative) 08/20/17 20:25 Urine Mucus Few /HPF 08/20/17 20:25 Random Vancomycin 4 ug/mL (0-40.0) 08/22/17 07:15 Heparin-induced Plt Ab Negative (Negative) 08/13/17 05:46 UF Heparin High Dose 0 % Release 08/13/17 05:46 SORIN UFH Low Dose 0.1 0 % Release 08/13/17 05:46 SORIN UFH Low Dose 0.5 0 % Release 08/13/17 05:46 Hepatitis A IgM Ab Non-reactive (NonReactive) 08/13/17 15:35 Hep Bs Antigen Non-reactive (Negative) 08/13/17 15:35 Hep B Core IgM Ab Non-reactive (NonReactive) 08/13/17 15:35 Hepatitis C Antibody Non-reactive (NonReactive) 08/13/17 15:35 Miscellaneous Test Tnp 08/13/17 07:50 Blood Type O POSITIVE 08/19/17 08:26 Antibody Screen Negative 08/19/17 08:26 Crossmatch See Detail 08/19/17 08:26
[2017-08-22] MEDS: BABY ASPIRIN PO SCH (09:14)
[2017-08-22] MEDS: FOLVITE PO SCH (09:14)
[2017-08-22] MEDS: PEPCID PO SCH ×2 (09:14→22:28)
[2017-08-22] MEDS: NORVASC PO SCH (09:15)
[2017-08-22] MEDS: Centrum Liq PO SCH (09:15)
[2017-08-22] MEDS: COREG PO SCH ×2 (09:15→21:57)
[2017-08-22] MEDS: PAXIL PO SCH (09:16)
[2017-08-22] MEDS: VITAMIN B-1 PO SCH (09:16)
[2017-08-22] MEDS: LANTUS SUB-Q SCH (09:17)
[2017-08-22] MEDS: OPTH OS SCH ×2 (09:19→22:29)
[2017-08-22] MEDS: [UNRECOGNIZED DRUG - OTHER] OS SCH ×2 (09:19→22:29)
[2017-08-22] MEDS: MAXIPIME 2 GM in NACL 0.9% 20 ML IV SCH ×2 (09:26→22:08)
--- NOTE | 2017-08-22 10:35 | Progress Note ---
Assessment and Plan - Patient Problems (1) Acute renal failure due to tubular necrosis Current Visit: Yes Status: Acute Plan to address problem: Acute renal failure / acute tubular necrosis nonoliguric with improving urine output. Still with volume overload but improving with diuresis. Kidney indices are unchanged. Patient in negative fluid balance. We will continue to hold dialysis for now and monitor for further signs of renal recovery. (2) Hypernatremia Current Visit: Yes Status: Acute Plan to address problem: Sodium is marginally better. Increase IVf. Follow-up sodium (3) Hypokalemia Current Visit: Yes Status: Acute Plan to address problem: Supplement potassium and follow up levels. (4) Hemorrhagic shock Current Visit: Yes Status: Acute Plan to address problem: Status post multiple transfusions. Appears to be resolving. Follow-up hemoglobin (5) Hypocalcemia Current Visit: Yes Status: Acute Plan to address problem: Supplemental calcium as indicated. (6) Metabolic acidosis Current Visit: Yes Status: Acute Plan to address problem: Bicarbonate has improved. Follow bicarbonate level (7) Atherosclerosis of [place] arteries of extremity with intermittent claudication Current Visit: No Status: Acute Plan to address problem: Continue management per vascular surgeon (8) Anemia Current Visit: Yes Status: Acute Plan to address problem: Follow-up hemoglobin. Consider packed red blood cell transfusion Subjective Date of service: 08/22/17 Principal diagnosis: Acute Hypoxemic Respiratory Failure; Hemorrhagic Shock; WILLIAM on Dilaysis;PVD Interval history: Patient seen lying in bed in intensive care unit. He is intubated on the ventilator. He is alert. Diuresing spontaneously 0.6 L negative fluid balance yesterday Objective - Exam Narrative Exam: Middle aged male lying in bed intubated on ventilator HEENT: NCAT, endotracheal tube intact, orogastric tube intact Neck: Supple, no venous distention CVS: S1S2 RRR with no murmur, rub or gallop Chest: Clear to auscultation Abdomen: Distended, soft to firm, nontender, no organomegaly, bowel sounds are present Extremities: 2+ pitting edema, no cyanosis. Skin warm and dry with areas of ecchymoses Neuro: Moves on stimulation, not following commands - Vital Signs Vital signs: Vital Signs - 12hr 08/21/17 08/21/17 08/21/17 23:01 23:31 23:47 Temperature Pulse Rate 88 84 96 H Pulse Rate [ From Monitor] Respiratory 15 14 Rate Blood Pressure 112/67 112/67 112/67 O2 Sat by Pulse 95 96 96 Oximetry 08/22/17 08/22/17 08/22/17 00:00 00:31 01:01 Temperature 98.5 F Pulse Rate 77 82 90 Pulse Rate [ From Monitor] Respiratory 16 13 18 Rate Blood Pressure 119/62 119/62 123/69 O2 Sat by Pulse 97 96 96 Oximetry 08/22/17 08/22/17 08/22/17 01:31 02:00 02:31 Temperature Pulse Rate 97 H 101 H 84 Pulse Rate [ From Monitor] Respiratory 13 13 13 Rate Blood Pressure 123/69 129/73 129/73 O2 Sat by Pulse 96 96 95 Oximetry 08/22/17 08/22/17 08/22/17 03:01 03:31 03:36 Temperature 99.3 F Pulse Rate 94 H 82 Pulse Rate [ From Monitor] Respiratory 21 14 Rate Blood Pressure 119/61 119/61 O2 Sat by Pulse 93 94 Oximetry 08/22/17 08/22/17 08/22/17 04:00 04:31 04:35 Temperature Pulse Rate 93 H 94 H 95 H Pulse Rate [ From Monitor] Respiratory 19 19 Rate Blood Pressure 124/66 124/66 117/61 O2 Sat by Pulse 95 92 95 Oximetry 08/22/17 08/22/17 08/22/17 05:01 05:31 06:01 Temperature Pulse Rate 89 95 H 81 Pulse Rate [ From Monitor] Respiratory 18 19 15 Rate Blood Pressure 127/69 127/69 124/68 O2 Sat by Pulse 93 Oximetry 08/22/17 08/22/17 08/22/17 06:31 07:00 07:31 Temperature Pulse Rate 92 H 91 H 87 Pulse Rate [ From Monitor] Respiratory 18 21 16 Rate Blood Pressure 124/68 112/61 112/61 O2 Sat by Pulse 88 87 91 Oximetry 08/22/17 08/22/17 08/22/17 08:00 08:01 08:31 Temperature 98.2 F Pulse Rate 86 89 Pulse Rate [ 93 H From Monitor] Respiratory 18 19 Rate Blood Pressure 116/63 116/63 O2 Sat by Pulse 94 100 Oximetry 08/22/17 08/22/17 08/22/17 08:35 09:00 09:15 Temperature Pulse Rate 90 91 H 92 H Pulse Rate [ From Monitor] Respiratory 13 Rate Blood Pressure 116/63 113/68 O2 Sat by Pulse 95 92 Oximetry 08/22/17 09:31 Temperature Pulse Rate 104 H Pulse Rate [ From Monitor] Respiratory 14 Rate Blood Pressure 113/68 O2 Sat by Pulse 93 Oximetry - Lab 08/21/17 04:15 08/22/17 07:15 Most recent lab results Calcium 8.3 mg/dL (8.4-10.2) L 08/22/17 07:15
--- NOTE | 2017-08-22 11:15 | Progress Note ---
Assessment and Plan The patient continues to improves Vent management per Critical Care WILLIAM Improving, Sodium improving and maintaining urine output General Surgery Evaluating for PEG/Trach however patient may wean from vent given how alert he is and his improving fluid balance Continue Supportive Care Subjective Date of service: 08/22/17 Principal diagnosis: Acute Hypoxemic Respiratory Failure; Hemorrhagic Shock; WILLIAM on Dilaysis;PVD Interval history: Patient denies pain. Extremely alert today and following all commands. Objective - Constitutional Vitals: Vital Signs - 12hr 08/21/17 08/21/17 08/22/17 23:31 23:47 00:00 Temperature 98.5 F Pulse Rate 84 96 H 77 Pulse Rate [ From Monitor] Respiratory 14 16 Rate Blood Pressure 112/67 112/67 119/62 O2 Sat by Pulse 96 96 97 Oximetry 08/22/17 08/22/17 08/22/17 00:31 01:01 01:31 Temperature Pulse Rate 82 90 97 H Pulse Rate [ From Monitor] Respiratory 13 18 13 Rate Blood Pressure 119/62 123/69 123/69 O2 Sat by Pulse 96 96 96 Oximetry 08/22/17 08/22/17 08/22/17 02:00 02:31 03:01 Temperature Pulse Rate 101 H 84 94 H Pulse Rate [ From Monitor] Respiratory 13 13 21 Rate Blood Pressure 129/73 129/73 119/61 O2 Sat by Pulse 96 95 93 Oximetry 08/22/17 08/22/17 08/22/17 03:31 03:36 04:00 Temperature 99.3 F Pulse Rate 82 93 H Pulse Rate [ From Monitor] Respiratory 14 19 Rate Blood Pressure 119/61 124/66 O2 Sat by Pulse 94 95 Oximetry 08/22/17 08/22/17 08/22/17 04:31 04:35 05:01 Temperature Pulse Rate 94 H 95 H 89 Pulse Rate [ From Monitor] Respiratory 19 18 Rate Blood Pressure 124/66 117/61 127/69 O2 Sat by Pulse 92 95 93 Oximetry 08/22/17 08/22/17 08/22/17 05:31 06:01 06:31 Temperature Pulse Rate 95 H 81 92 H Pulse Rate [ From Monitor] Respiratory 19 15 18 Rate Blood Pressure 127/69 124/68 124/68 O2 Sat by Pulse 88 Oximetry 08/22/17 08/22/17 08/22/17 07:00 07:31 08:00 Temperature 98.2 F Pulse Rate 91 H 87 Pulse Rate [ 93 H From Monitor] Respiratory 21 16 Rate Blood Pressure 112/61 112/61 O2 Sat by Pulse 87 91 Oximetry 08/22/17 08/22/17 08/22/17 08:01 08:31 08:35 Temperature Pulse Rate 86 89 90 Pulse Rate [ From Monitor] Respiratory 18 19 Rate Blood Pressure 116/63 116/63 116/63 O2 Sat by Pulse 94 100 95 Oximetry 08/22/17 08/22/17 08/22/17 09:00 09:15 09:31 Temperature Pulse Rate 91 H 92 H 104 H Pulse Rate [ From Monitor] Respiratory 13 14 Rate Blood Pressure 113/68 113/68 O2 Sat by Pulse 92 93 Oximetry General appearance: Present: no acute distress - EENT Eyes: PERRL - Respiratory Respiratory effort: other (Vent support) - Breasts Breasts: deferred - Cardiovascular Rhythm: regular Extremities: normal temperature Extremity abnormal: edema (bilateral lower extremities), other (right groin incision C/D/I) - Gastrointestinal General gastrointestinal: Present: soft, non-tender Rectal Exam: deferred - Integumentary Integumentary: clear, warm - Labs CBC & Chem 7: 08/21/17 04:15 08/22/17 07:15 Labs: Abnormal lab results 08/21/17 08/21/17 08/21/17 Range/Units 11:04 11:44 12:34 POC ABG pCO2 46.6 H (35-45) POC ABG pO2 52 L (80-105) Sodium (137-145) mmol/L Potassium (3.6-5.0) mmol/L Chloride (98-107) mmol/L BUN (9-20) mg/dL Creatinine (0.8-1.5) mg/dL Glucose (75-100) mg/dL POC Glucose 327 H 285 H (70-105) Calcium (8.4-10.2) mg/dL 08/21/17 08/22/17 08/22/17 Range/Units 18:08 00:28 06:20 POC ABG pCO2 (35-45) POC ABG pO2 (80-105) Sodium (137-145) mmol/L Potassium (3.6-5.0) mmol/L Chloride (98-107) mmol/L BUN (9-20) mg/dL Creatinine (0.8-1.5) mg/dL Glucose (75-100) mg/dL POC Glucose 262 H 252 H 231 H (70-105) Calcium (8.4-10.2) mg/dL 08/22/17 Range/Units 07:15 POC ABG pCO2 (35-45) POC ABG pO2 (80-105) Sodium 156 H (137-145) mmol/L Potassium 3.2 L (3.6-5.0) mmol/L Chloride 117.4 H (98-107) mmol/L BUN 71 H (9-20) mg/dL Creatinine 1.6 H (0.8-1.5) mg/dL Glucose 217 H (75-100) mg/dL POC Glucose (70-105) Calcium 8.3 L (8.4-10.2) mg/dL - Imaging and cardiology Chest x-ray: image reviewed
[2017-08-22] MEDS: VANCOMYCIN 2,000 MG in NACL 0.9% 500 ML 500 ML IV SCH (12:09)
[2017-08-22] MEDS: POTASSIUM CHLORIDE FEEDTUBE SCH ×2 (12:11→14:30)
[2017-08-22] MEDS: D5W 1,000 ML IV SCH (13:34)
--- NOTE | 2017-08-22 15:36 | Progress Note ---
Assessment and Plan Acute Hypoxic Respiratory failure Vasogenic Shock, Presumed Bleed WILLIAM Secondary to vasomotor nephropathy Severe Metabolic Acidosis Acute blood loss anemia PVD s/p right femoral end-arterectomy Acute encephalopathy s/p Massive blood transfusion Leukocytosis - continue daily SAT's and SBT's while awaiting tracheostomy placement also ( tentatively fo Trach & PEG on thursday) - continue supplemental oxygen and wean to keep sats > 90% - continue to address VAP bundle daily - continue antibiotics and follow cultures/clinically for de-escalation - ID on case also - weaned off vasopressors - continue HD/UF per nephrology prescription for volume and toxin clearance (on hold as now making urine) - massive transfusion protocol followed; received FFP's and platelets - hold all anticoagulation till H&H stabilizes - continue SCD's - continue agitation and analgesia management while avoiding benzodiazepines - Avoiding\ nephrotoxic agents - ok to discontinue barrientos catheter - continue enteral nutrition as tolerated - Azotemia per nephrology team otherwise - case discussed at length with surgery and in team rounds and care plan formulated - Prognosis remains guarded overall although improved, with risk of decompensation from a hemodynamic standpoint and even . - continue other care per attending / other consultants .... re-evaluate in am & prn ...30' CCT Subjective Date of service: 08/22/17 Principal diagnosis: Acute Hypoxemic Respiratory Failure; Hemorrhagic Shock; WILLIAM on Dilaysis;PVD Interval history: Patient is seen today for: Acute Hypoxemic Respiratory Failure; Hemorrhagic Shock; WILLIAM on Dilaysis;PVD Seen and examined at bedside; 24 hour events reviewed; nursing and respiratory care staff consulted; remains on MVS; on PSV / and tolerating decently; ETT day # 11-12; on full AC support; he nods head no to pain question; No N/V/F/C and remains off vasopressors Objective Vital Signs - 12hr 08/22/17 08/22/17 08/22/17 03:36 04:00 04:31 Temperature 99.3 F Pulse Rate 93 H 94 H Pulse Rate [ From Monitor] Respiratory 19 19 Rate Blood Pressure 124/66 124/66 O2 Sat by Pulse 95 92 Oximetry 08/22/17 08/22/17 08/22/17 04:35 05:01 05:31 Temperature Pulse Rate 95 H 89 95 H Pulse Rate [ From Monitor] Respiratory 18 19 Rate Blood Pressure 117/61 127/69 127/69 O2 Sat by Pulse 95 93 Oximetry 08/22/17 08/22/17 08/22/17 06:01 06:31 07:00 Temperature Pulse Rate 81 92 H 91 H Pulse Rate [ From Monitor] Respiratory 15 18 21 Rate Blood Pressure 124/68 124/68 112/61 O2 Sat by Pulse 88 87 Oximetry 08/22/17 08/22/17 08/22/17 07:31 08:00 08:01 Temperature 98.2 F Pulse Rate 87 86 Pulse Rate [ 93 H From Monitor] Respiratory 16 18 Rate Blood Pressure 112/61 116/63 O2 Sat by Pulse 91 94 Oximetry 08/22/17 08/22/17 08/22/17 08:31 08:35 09:00 Temperature Pulse Rate 89 90 91 H Pulse Rate [ From Monitor] Respiratory 19 13 Rate Blood Pressure 116/63 116/63 113/68 O2 Sat by Pulse 100 95 92 Oximetry 08/22/17 08/22/17 08/22/17 09:15 09:31 10:01 Temperature Pulse Rate 92 H 104 H 92 H Pulse Rate [ From Monitor] Respiratory 14 11 L Rate Blood Pressure 113/68 106/70 O2 Sat by Pulse 93 93 Oximetry 08/22/17 08/22/17 08/22/17 10:31 11:01 11:31 Temperature Pulse Rate 90 94 H 96 H Pulse Rate [ From Monitor] Respiratory 9 L 14 15 Rate Blood Pressure 106/70 106/70 106/70 O2 Sat by Pulse 93 93 94 Oximetry 08/22/17 08/22/17 08/22/17 12:00 12:01 12:31 Temperature 98.0 F Pulse Rate 85 99 H Pulse Rate [ 91 H From Monitor] Respiratory 11 L 13 Rate Blood Pressure 106/70 102/69 O2 Sat by Pulse 94 94 94 Oximetry 08/22/17 08/22/17 08/22/17 13:17 13:31 13:50 Temperature Pulse Rate 96 H 91 H Pulse Rate [ From Monitor] Respiratory 20 Rate Blood Pressure 102/69 139/64 139/64 O2 Sat by Pulse 89 93 94 Oximetry 08/22/1708/22/18 18 14:01 14:31 14:45 Temperature Pulse Rate 100 H 96 H 99 H Pulse Rate [ From Monitor] Respiratory 19 18 20 Rate Blood Pressure 128/65 136/64 143/71 O2 Sat by Pulse 95 95 695 H Oximetry 08/22/17 15:01 Temperature Pulse Rate 89 Pulse Rate [ From Monitor] Respiratory 18 Rate Blood Pressure 143/71 O2 Sat by Pulse 94 Oximetry Constitutional: no acute distress, other (obese; somnolent) Eyes: non-icteric ENT: oropharynx moist, oropharyngeal exudate pre, other (large neck circumference) Neck: supple, no lymphadenopathy, no JVD, other (RIJ VasCath) Effort: mildly labored Ascultation: Bilateral: diminished breath sounds, rales Percussion: Bilateral: not dull Cardiovascular: regular rate and rhythm, other (No R/M) Gastrointestinal: normoactive bowel sounds, soft, non-tender, other (distended; no palpable HSM) Integumentary: other (post-op scars) Extremities: no cyanosis, pink and warm, no ischemia or petechiae, edema (2+) Neurologic: non-focal exam (grossly), unable to assess (otherwise) Psychiatric: other (unable to assess) CBC and BMP: 08/21/17 04:15 08/22/17 07:15 ABG, PT/INR, D-dimer: ABG POC ABG pH 7.378 (7.35-7.45) 08/21/17 11:44 POC ABG pCO2 46.6 (35-45) H 08/21/17 11:44 POC ABG pO2 52 (80-105) L 08/21/17 11:44 POC ABG HCO3 27.4 08/21/17 11:44 POC ABG Total CO2 29 08/21/17 11:44 POC ABG O2 Sat 85 08/21/17 11:44 PT/INR, D-dimer PT 15.7 Sec. (12.2-14.9) H 08/14/17 05:00 INR 1.18 (0.87-1.13) H 08/14/17 05:00 D-Dimer 950.64 ng/mlDDU (0-234) H 08/14/17 05:00 Abnormal lab findings: Abnormal Labs 08/10/17 08/10/17 08/10/17 10:05 10:05 10:05 WBC RBC Hgb POC Hgb Hct POC Hct MCV 97 H MCH 33 H MCHC RDW Plt Count Lymph % (Auto) [place] % (Auto) Lymph # [place] # Seg Neutrophils % 72.9 H Seg Neutrophils # PT 11.6 L INR 0.81 L APTT Activated Clotting Time D-Dimer Heparin Anti-Xa Level POC ABG pH POC ABG pCO2 POC ABG pO2 Sodium Potassium Chloride Carbon Dioxide BUN Creatinine 0.7 L Glucose 196 H POC Glucose Lactic Acid Calcium Total Bilirubin AST ALT C-Reactive Protein Total Protein Albumin Ur Specific [place] Urine WBC (Auto) Crossmatch 08/11/17 08/11/17 08/11/17 06:50 07:03 09:50 WBC RBC Hgb POC Hgb Hct POC Hct MCV MCH MCHC RDW Plt Count Lymph % (Auto) [place] % (Auto) Lymph # [place] # Seg Neutrophils % Seg Neutrophils # PT INR APTT Activated Clotting Time D-Dimer Heparin Anti-Xa Level POC ABG pH 7.270 L POC ABG pCO2 49.1 H POC ABG pO2 117 H Sodium Potassium Chloride Carbon Dioxide BUN Creatinine Glucose POC Glucose 160 H Lactic Acid Calcium Total Bilirubin AST ALT C-Reactive Protein Total Protein Albumin Ur Specific [place] Urine WBC (Auto) Crossmatch See Detail 08/11/17 08/11/17 08/11/17 10:52 11:12 12:16 WBC RBC Hgb POC Hgb Hct POC Hct MCV MCH MCHC RDW Plt Count Lymph % (Auto) [place] % (Auto) Lymph # [place] # Seg Neutrophils % Seg Neutrophils # PT INR APTT Activated Clotting Time 191 H 153 H D-Dimer Heparin Anti-Xa Level POC ABG pH POC ABG pCO2 POC ABG pO2 Sodium Potassium Chloride Carbon Dioxide BUN Creatinine Glucose POC Glucose 176 H Lactic Acid Calcium Total Bilirubin AST ALT C-Reactive Protein Total Protein Albumin Ur Specific [place] Urine WBC (Auto) Crossmatch 08/11/17 08/11/17 08/11/17 12:27 13:07 14:39 WBC RBC Hgb POC Hgb 9.9 L 8.5 L Hct POC Hct 29 L 25 L MCV MCH MCHC RDW Plt Count Lymph % (Auto) [place] % (Auto) Lymph # [place] # Seg Neutrophils % Seg Neutrophils # PT INR APTT Activated Clotting Time 186 H D-Dimer Heparin Anti-Xa Level POC ABG pH POC ABG pCO2 POC ABG pO2 Sodium Potassium Chloride Carbon Dioxide BUN Creatinine Glucose POC Glucose 183 H 197 H Lactic Acid Calcium Total Bilirubin AST ALT C-Reactive Protein Total Protein Albumin Ur Specific [place] Urine WBC (Auto) Crossmatch 08/11/17 08/11/17 08/11/17 14:46 16:18 17:57 WBC 12.7 H RBC 3.00 L Hgb 9.5 L D POC Hgb Hct 28.3 L D POC Hct MCV MCH MCHC RDW 16.3 H Plt Count 105 L Lymph % (Auto) 6.7 L [place] % (Auto) Lymph # 0.8 L [place] # Seg Neutrophils % 86.3 H Seg Neutrophils # 10.9 H PT INR APTT Activated Clotting Time 164 H D-Dimer Heparin Anti-Xa Level POC ABG pH POC ABG pCO2 POC ABG pO2 Sodium Potassium Chloride Carbon Dioxide BUN Creatinine Glucose POC Glucose 192 H Lactic Acid Calcium Total Bilirubin AST ALT C-Reactive Protein Total Protein Albumin Ur Specific [place] Urine WBC (Auto) Crossmatch 08/11/17 08/11/17 08/11/17 17:57 20:00 20:00 WBC RBC Hgb 10.2 L POC Hgb Hct 31.1 L POC Hct MCV MCH MCHC RDW Plt Count 117 L Lymph % (Auto) [place] % (Auto) Lymph # [place] # Seg Neutrophils % Seg Neutrophils # PT 15.3 H INR 1.15 H APTT 97.7 H* Activated Clotting Time D-Dimer Heparin Anti-Xa Level POC ABG pH POC ABG pCO2 POC ABG pO2 Sodium Potassium Chloride 117.4 H Carbon Dioxide 18 L BUN Creatinine 0.7 L Glucose 143 H POC Glucose Lactic Acid Calcium 6.4 L D Total Bilirubin AST ALT C-Reactive Protein Total Protein Albumin Ur Specific [place] Urine WBC (Auto) Crossmatch 08/12/17 08/12/17 08/12/17 03:30 03:50 03:50 WBC RBC Hgb 9.2 L 9.1 L POC Hgb Hct 27.5 L 27.2 L POC Hct MCV MCH MCHC RDW Plt Count Lymph % (Auto) [place] % (Auto) Lymph # [place] # Seg Neutrophils % Seg Neutrophils # PT INR APTT Activated Clotting Time D-Dimer Heparin Anti-Xa Level POC ABG pH POC ABG pCO2 POC ABG pO2 Sodium Potassium Chloride 113.5 H Carbon Dioxide 13 L BUN Creatinine Glucose 243 H POC Glucose Lactic Acid Calcium 6.3 L Total Bilirubin AST ALT C-Reactive Protein Total Protein Albumin Ur Specific [place] Urine WBC (Auto) Crossmatch 08/12/17 08/12/17 08/12/17 07:36 08:48 16:16 WBC RBC Hgb POC Hgb Hct POC Hct MCV MCH MCHC RDW Plt Count Lymph % (Auto) [place] % (Auto) Lymph # [place] # Seg Neutrophils % Seg Neutrophils # PT INR APTT Activated Clotting Time D-Dimer Heparin Anti-Xa Level POC ABG pH 6.952 L 7.159 L POC ABG pCO2 49.1 H 47.8 H POC ABG pO2 76 L 106 H Sodium Potassium Chloride Carbon Dioxide BUN Creatinine Glucose POC Glucose 246 H Lactic Acid Calcium Total Bilirubin AST ALT C-Reactive Protein Total Protein Albumin Ur Specific [place] Urine WBC (Auto) Crossmatch 08/12/17 08/12/17 08/12/17 17:54 18:30 20:15 WBC 17.9 H RBC 3.29 L Hgb 10.0 L POC Hgb Hct 29.3 L POC Hct MCV MCH MCHC RDW 15.5 H Plt Count 76 L Lymph % (Auto) [place] % (Auto) Lymph # [place] # Seg Neutrophils % Seg Neutrophils # PT INR APTT Activated Clotting Time D-Dimer Heparin Anti-Xa Level POC ABG pH POC ABG pCO2 POC ABG pO2 Sodium Potassium Chloride Carbon Dioxide BUN Creatinine Glucose POC Glucose 240 H Lactic Acid Calcium Total Bilirubin AST ALT C-Reactive Protein Total Protein Albumin Ur Specific [place] 1.051 H Urine WBC (Auto) > 182.0 H Crossmatch 08/12/17 08/12/17 08/13/17 21:50 21:50 03:20 WBC RBC Hgb POC Hgb Hct POC Hct MCV MCH MCHC RDW Plt Count Lymph % (Auto) [place] % (Auto) Lymph # [place] # Seg Neutrophils % Seg Neutrophils # PT INR APTT Activated Clotting Time D-Dimer Heparin Anti-Xa Level < 0.10 L POC ABG pH POC ABG pCO2 POC ABG pO2 Sodium Potassium 5.4 H Chloride 110.8 H Carbon Dioxide 18 L BUN 30 H Creatinine 2.5 H D Glucose 216 H POC Glucose 235 H Lactic Acid Calcium 5.7 L* Total Bilirubin AST ALT C-Reactive Protein Total Protein Albumin Ur Specific [place] Urine WBC (Auto) Crossmatch 08/13/17 08/13/17 08/13/17 05:46 05:46 06:06 WBC 14.6 H RBC 2.49 L Hgb 7.6 L POC Hgb Hct 22.3 L D POC Hct MCV MCH MCHC RDW 15.7 H Plt Count 78 L Lymph % (Auto) 10.3 L [place] % (Auto) Lymph # [place] # Seg Neutrophils % 84.1 H Seg Neutrophils # 12.3 H PT INR APTT Activated Clotting Time D-Dimer Heparin Anti-Xa Level POC ABG pH 7.282 L POC ABG pCO2 POC ABG pO2 Sodium Potassium Chloride 107.5 H Carbon Dioxide 19 L BUN 35 H Creatinine 2.9 H Glucose 242 H POC Glucose Lactic Acid Calcium 6.3 L Total Bilirubin AST 1304 H ALT 533 H C-Reactive Protein Total Protein 4.4 L Albumin 2.8 L Ur Specific [place] Urine WBC (Auto) Crossmatch 08/13/17 08/13/17 08/13/17 07:10 07:10 09:00 WBC RBC Hgb POC Hgb Hct POC Hct MCV MCH MCHC RDW Plt Count Lymph % (Auto) [place] % (Auto) Lymph # [place] # Seg Neutrophils % Seg Neutrophils # PT 17.4 H INR 1.35 H APTT Activated Clotting Time D-Dimer 598.44 H Heparin Anti-Xa Level POC ABG pH POC ABG pCO2 POC ABG pO2 Sodium Potassium Chloride 107.2 H Carbon Dioxide 19 L BUN 35 H Creatinine 2.8 H Glucose 240 H POC Glucose Lactic Acid 3.10 H* Calcium 6.2 L Total Bilirubin AST ALT C-Reactive Protein Total Protein Albumin Ur Specific [place] Urine WBC (Auto) Crossmatch 08/13/17 08/13/17 08/13/17 17:55 18:31 21:19 WBC RBC Hgb POC Hgb Hct POC Hct MCV MCH MCHC RDW Plt Count Lymph % (Auto) [place] % (Auto) Lymph # [place] # Seg Neutrophils % Seg Neutrophils # PT INR APTT Activated Clotting Time D-Dimer Heparin Anti-Xa Level POC ABG pH 7.451 H POC ABG pCO2 33.0 L POC ABG pO2 53 L Sodium Potassium Chloride Carbon Dioxide BUN Creatinine Glucose POC Glucose 247 H Lactic Acid 2.20 H* Calcium Total Bilirubin AST ALT C-Reactive Protein Total Protein Albumin Ur Specific [place] Urine WBC (Auto) Crossmatch 08/13/17 08/14/17 08/14/17 23:34 00:10 05:00 WBC RBC Hgb POC Hgb Hct POC Hct MCV MCH MCHC RDW Plt Count Lymph % (Auto) [place] % (Auto) Lymph # [place] # Seg Neutrophils % Seg Neutrophils # PT 15.7 H INR 1.18 H APTT Activated Clotting Time D-Dimer 950.64 H Heparin Anti-Xa Level POC ABG pH POC ABG pCO2 POC ABG pO2 Sodium Potassium Chloride Carbon Dioxide BUN Creatinine Glucose POC Glucose 237 H Lactic Acid 2.70 H* Calcium Total Bilirubin AST ALT C-Reactive Protein Total Protein Albumin Ur Specific [place] Urine WBC (Auto) Crossmatch 08/14/17 08/14/17 08/14/17 05:00 05:11 10:26 WBC 14.2 H RBC 2.66 L Hgb 7.9 L POC Hgb Hct 23.2 L POC Hct MCV MCH MCHC RDW 16.0 H Plt Count 75 L Lymph % (Auto) [place] % (Auto) Lymph # [place] # Seg Neutrophils % Seg Neutrophils # PT INR APTT Activated Clotting Time D-Dimer Heparin Anti-Xa Level POC ABG pH POC ABG pCO2 POC ABG pO2 78 L Sodium Potassium Chloride Carbon Dioxide BUN Creatinine Glucose POC Glucose 227 H Lactic Acid Calcium Total Bilirubin AST ALT C-Reactive Protein Total Protein Albumin Ur Specific [place] Urine WBC (Auto) Crossmatch 08/14/17 08/14/17 08/14/17 11:28 11:28 12:06 WBC RBC Hgb POC Hgb Hct POC Hct MCV MCH MCHC RDW Plt Count Lymph % (Auto) [place] % (Auto) Lymph # [place] # Seg Neutrophils % Seg Neutrophils # PT INR APTT Activated Clotting Time D-Dimer Heparin Anti-Xa Level POC ABG pH POC ABG pCO2 POC ABG pO2 Sodium Potassium Chloride Carbon Dioxide BUN 43 H Creatinine 3.6 H Glucose 209 H POC Glucose 219 H Lactic Acid Calcium 7.6 L D Total Bilirubin AST ALT C-Reactive Protein 29.00 H Total Protein Albumin Ur Specific [place] Urine WBC (Auto) Crossmatch 08/14/17 08/14/17 08/14/17 17:57 19:54 23:23 WBC RBC Hgb POC Hgb Hct POC Hct MCV MCH MCHC RDW Plt Count Lymph % (Auto) [place] % (Auto) Lymph # [place] # Seg Neutrophils % Seg Neutrophils # PT INR APTT Activated Clotting Time D-Dimer Heparin Anti-Xa Level POC ABG pH POC ABG pCO2 46.5 H POC ABG pO2 64 L Sodium Potassium Chloride Carbon Dioxide BUN Creatinine Glucose POC Glucose 178 H 170 H Lactic Acid Calcium Total Bilirubin AST ALT C-Reactive Protein Total Protein Albumin Ur Specific [place] Urine WBC (Auto) Crossmatch 08/15/17 08/15/17 08/15/17 03:44 04:40 05:19 WBC 12.6 H RBC 2.49 L Hgb 7.4 L POC Hgb Hct 22.1 L POC Hct MCV MCH MCHC RDW 16.5 H Plt Count 64 L Lymph % (Auto) [place] % (Auto) Lymph # [place] # Seg Neutrophils % Seg Neutrophils # PT INR APTT Activated Clotting Time D-Dimer Heparin Anti-Xa Level POC ABG pH POC ABG pCO2 48.1 H POC ABG pO2 68 L Sodium Potassium Chloride Carbon Dioxide BUN Creatinine Glucose POC Glucose 154 H Lactic Acid Calcium Total Bilirubin AST ALT C-Reactive Protein Total Protein Albumin Ur Specific [place] Urine WBC (Auto) Crossmatch 08/15/17 08/15/17 08/15/17 12:20 13:22 18:05 WBC RBC Hgb POC Hgb Hct POC Hct MCV MCH MCHC RDW Plt Count Lymph % (Auto) [place] % (Auto) Lymph # [place] # Seg Neutrophils % Seg Neutrophils # PT INR APTT Activated Clotting Time D-Dimer Heparin Anti-Xa Level POC ABG pH POC ABG pCO2 POC ABG pO2 Sodium Potassium Chloride Carbon Dioxide BUN 45 H Creatinine 4.1 H Glucose 141 H POC Glucose 147 H 170 H Lactic Acid Calcium 7.8 L Total Bilirubin AST ALT C-Reactive Protein Total Protein Albumin Ur Specific [place] Urine WBC (Auto) Crossmatch 08/15/17 08/16/17 08/16/17 23:43 04:42 05:22 WBC 14.2 H RBC 2.54 L Hgb 7.5 L POC Hgb Hct 22.6 L POC Hct MCV MCH MCHC RDW 16.4 H Plt Count 73 L Lymph % (Auto) 6.6 L [place] % (Auto) 10.1 H Lymph # 0.9 L [place] # 1.4 H Seg Neutrophils % 83.1 H Seg Neutrophils # 11.8 H PT INR APTT Activated Clotting Time D-Dimer Heparin Anti-Xa Level POC ABG pH POC ABG pCO2 POC ABG pO2 71 L Sodium Potassium Chloride Carbon Dioxide BUN Creatinine Glucose POC Glucose 155 H Lactic Acid Calcium Total Bilirubin AST ALT C-Reactive Protein Total Protein Albumin Ur Specific [place] Urine WBC (Auto) Crossmatch 08/16/17 08/16/17 08/16/17 06:20 08:49 11:54 WBC RBC Hgb POC Hgb Hct POC Hct MCV MCH MCHC RDW Plt Count Lymph % (Auto) [place] % (Auto) Lymph # [place] # Seg Neutrophils % Seg Neutrophils # PT INR APTT Activated Clotting Time D-Dimer Heparin Anti-Xa Level POC ABG pH POC ABG pCO2 POC ABG pO2 Sodium Potassium Chloride Carbon Dioxide BUN Creatinine Glucose POC Glucose 165 H 191 H 188 H Lactic Acid Calcium Total Bilirubin AST ALT C-Reactive Protein Total Protein Albumin Ur Specific [place] Urine WBC (Auto) Crossmatch 08/16/17 08/16/17 08/16/17 13:00 18:32 23:33 WBC RBC Hgb POC Hgb Hct POC Hct MCV MCH MCHC RDW Plt Count Lymph % (Auto) [place] % (Auto) Lymph # [place] # Seg Neutrophils % Seg Neutrophils # PT INR APTT Activated Clotting Time D-Dimer Heparin Anti-Xa Level POC ABG pH POC ABG pCO2 POC ABG pO2 Sodium Potassium Chloride Carbon Dioxide BUN 47 H Creatinine 3.4 H Glucose 179 H POC Glucose 219 H 179 H Lactic Acid Calcium 8.2 L Total Bilirubin AST ALT C-Reactive Protein Total Protein Albumin Ur Specific [place] Urine WBC (Auto) Crossmatch 08/17/17 08/17/17 08/17/17 04:25 04:30 05:32 WBC 15.2 H RBC 2.60 L Hgb 7.6 L POC Hgb Hct 23.8 L POC Hct MCV MCH MCHC RDW 16.3 H Plt Count 92 L Lymph % (Auto) [place] % (Auto) Lymph # [place] # Seg Neutrophils % Seg Neutrophils # PT INR APTT Activated Clotting Time D-Dimer Heparin Anti-Xa Level POC ABG pH POC ABG pCO2 POC ABG pO2 57 L Sodium Potassium Chloride Carbon Dioxide BUN 63 H Creatinine 3.4 H Glucose 155 H POC Glucose Lactic Acid Calcium 8.3 L Total Bilirubin 1.40 H AST 99 H ALT 93 H C-Reactive Protein Total Protein 5.6 L D Albumin 3.1 L Ur Specific [place] Urine WBC (Auto) Crossmatch 08/17/17 08/17/17 08/17/17 06:36 12:37 17:44 WBC RBC Hgb POC Hgb Hct POC Hct MCV MCH MCHC RDW Plt Count Lymph % (Auto) [place] % (Auto) Lymph # [place] # Seg Neutrophils % Seg Neutrophils # PT INR APTT Activated Clotting Time D-Dimer Heparin Anti-Xa Level POC ABG pH POC ABG pCO2 POC ABG pO2 Sodium Potassium Chloride Carbon Dioxide BUN Creatinine Glucose POC Glucose 167 H 203 H 158 H Lactic Acid Calcium Total Bilirubin AST ALT C-Reactive Protein Total Protein Albumin Ur Specific [place] Urine WBC (Auto) Crossmatch 08/17/17 08/18/17 08/18/17 23:55 04:30 05:57 WBC RBC 2.40 L Hgb 7.3 L POC Hgb Hct 21.8 L POC Hct MCV MCH MCHC RDW 16.3 H Plt Count 95 L Lymph % (Auto) [place] % (Auto) Lymph # [place] # Seg Neutrophils % Seg Neutrophils # PT INR APTT Activated Clotting Time D-Dimer Heparin Anti-Xa Level POC ABG pH POC ABG pCO2 POC ABG pO2 Sodium Potassium Chloride Carbon Dioxide BUN Creatinine Glucose POC Glucose 146 H 179 H Lactic Acid Calcium Total Bilirubin AST ALT C-Reactive Protein Total Protein Albumin Ur Specific [place] Urine WBC (Auto) Crossmatch 08/18/17 08/18/17 08/18/17 08:20 08:20 08:32 WBC RBC Hgb POC Hgb Hct POC Hct MCV MCH MCHC RDW Plt Count Lymph % (Auto) [place] % (Auto) Lymph # [place] # Seg Neutrophils % Seg Neutrophils # PT INR APTT Activated Clotting Time D-Dimer Heparin Anti-Xa Level POC ABG pH POC ABG pCO2 POC ABG pO2 Sodium 146 H Potassium Chloride 108.4 H Carbon Dioxide BUN 62 H Creatinine 2.4 H Glucose 125 H POC Glucose 161 H Lactic Acid Calcium Total Bilirubin AST ALT C-Reactive Protein 13.90 H Total Protein Albumin Ur Specific [place] Urine WBC (Auto) Crossmatch 08/18/17 08/18/17 08/18/17 11:33 17:18 23:31 WBC RBC Hgb POC Hgb Hct POC Hct MCV MCH MCHC RDW Plt Count Lymph % (Auto) [place] % (Auto) Lymph # [place] # Seg Neutrophils % Seg Neutrophils # PT INR APTT Activated Clotting Time D-Dimer Heparin Anti-Xa Level POC ABG pH POC ABG pCO2 POC ABG pO2 Sodium Potassium Chloride Carbon Dioxide BUN Creatinine Glucose POC Glucose 165 H 126 H 166 H Lactic Acid Calcium Total Bilirubin AST ALT C-Reactive Protein Total Protein Albumin Ur Specific [place] Urine WBC (Auto) Crossmatch 08/19/17 08/19/17 08/19/17 04:33 05:00 05:44 WBC RBC 1.69 L Hgb 5.1 L* POC Hgb Hct 15.9 L* POC Hct MCV 95 H MCH MCHC RDW 17.1 H Plt Count 75 L Lymph % (Auto) [place] % (Auto) Lymph # [place] # Seg Neutrophils % Seg Neutrophils # PT INR APTT Activated Clotting Time D-Dimer Heparin Anti-Xa Level POC ABG pH POC ABG pCO2 POC ABG pO2 65 L Sodium Potassium Chloride Carbon Dioxide BUN Creatinine Glucose POC Glucose 174 H Lactic Acid Calcium Total Bilirubin AST ALT C-Reactive Protein Total Protein Albumin Ur Specific [place] Urine WBC (Auto) Crossmatch 08/19/17 08/19/17 08/19/17 08:26 09:45 11:05 WBC RBC Hgb 8.8 L D POC Hgb Hct 26.7 L D POC Hct MCV MCH MCHC RDW Plt Count Lymph % (Auto) [place] % (Auto) Lymph # [place] # Seg Neutrophils % Seg Neutrophils # PT INR APTT Activated Clotting Time D-Dimer Heparin Anti-Xa Level POC ABG pH POC ABG pCO2 POC ABG pO2 Sodium 151 H Potassium 3.3 L Chloride 112.5 H Carbon Dioxide BUN 65 H Creatinine 1.6 H Glucose 145 H POC Glucose Lactic Acid Calcium 7.9 L Total Bilirubin AST ALT C-Reactive Protein Total Protein Albumin Ur Specific [place] Urine WBC (Auto) Crossmatch See Detail 08/19/17 08/19/17 08/19/17 11:34 18:02 23:37 WBC RBC Hgb POC Hgb Hct POC Hct MCV MCH MCHC RDW Plt Count Lymph % (Auto) [place] % (Auto) Lymph # [place] # Seg Neutrophils % Seg Neutrophils # PT INR APTT Activated Clotting Time D-Dimer Heparin Anti-Xa Level POC ABG pH POC ABG pCO2 POC ABG pO2 Sodium Potassium Chloride Carbon Dioxide BUN Creatinine Glucose POC Glucose 166 H 224 H 222 H Lactic Acid Calcium Total Bilirubin AST ALT C-Reactive Protein Total Protein Albumin Ur Specific [place] Urine WBC (Auto) Crossmatch 08/20/17 08/20/17 08/20/17 04:26 04:45 04:45 WBC 14.4 H RBC 2.97 L Hgb 8.9 L POC Hgb Hct 26.9 L POC Hct MCV MCH MCHC RDW 16.8 H Plt Count Lymph % (Auto) [place] % (Auto) Lymph # [place] # Seg Neutrophils % Seg Neutrophils # PT INR APTT Activated Clotting Time D-Dimer Heparin Anti-Xa Level POC ABG pH 7.497 H POC ABG pCO2 33.4 L POC ABG pO2 68 L Sodium 153 H Potassium Chloride 112.8 H Carbon Dioxide BUN 71 H Creatinine 1.7 H Glucose 244 H POC Glucose Lactic Acid Calcium Total Bilirubin AST ALT C-Reactive Protein Total Protein Albumin Ur Specific [place] Urine WBC (Auto) Crossmatch 08/20/17 08/20/17 08/20/17 05:42 12:31 17:56 WBC RBC Hgb POC Hgb Hct POC Hct MCV MCH MCHC RDW Plt Count Lymph % (Auto) [place] % (Auto) Lymph # [place] # Seg Neutrophils % Seg Neutrophils # PT INR APTT Activated Clotting Time D-Dimer Heparin Anti-Xa Level POC ABG pH POC ABG pCO2 POC ABG pO2 Sodium Potassium Chloride Carbon Dioxide BUN Creatinine Glucose POC Glucose 224 H 274 H 267 H Lactic Acid Calcium Total Bilirubin AST ALT C-Reactive Protein Total Protein Albumin Ur Specific [place] Urine WBC (Auto) Crossmatch 08/20/17 08/20/17 08/21/17 22:25 23:52 04:15 WBC 13.3 H RBC 2.84 L Hgb 8.3 L POC Hgb Hct 26.8 L POC Hct MCV MCH MCHC 31 L RDW 17.8 H Plt Count Lymph % (Auto) [place] % (Auto) Lymph # [place] # Seg Neutrophils % Seg Neutrophils # PT INR APTT Activated Clotting Time D-Dimer Heparin Anti-Xa Level POC ABG pH POC ABG pCO2 POC ABG pO2 Sodium Potassium Chloride Carbon Dioxide BUN Creatinine Glucose POC Glucose 241 H Lactic Acid Calcium Total Bilirubin AST ALT C-Reactive Protein 22.10 H Total Protein Albumin Ur Specific [place] Urine WBC (Auto) Crossmatch 08/21/17 08/21/17 08/21/17 04:15 05:50 06:23 WBC RBC Hgb POC Hgb Hct POC Hct MCV MCH MCHC RDW Plt Count Lymph % (Auto) [place] % (Auto) Lymph # [place] # Seg Neutrophils % Seg Neutrophils # PT INR APTT Activated Clotting Time D-Dimer Heparin Anti-Xa Level POC ABG pH POC ABG pCO2 POC ABG pO2 74 L Sodium 158 H Potassium 3.2 L Chloride 118.8 H Carbon Dioxide BUN 74 H Creatinine 1.8 H Glucose 227 H POC Glucose 230 H Lactic Acid Calcium Total Bilirubin AST ALT C-Reactive Protein Total Protein Albumin Ur Specific [place] Urine WBC (Auto) Crossmatch 08/21/17 08/21/17 08/21/17 11:04 11:44 12:34 WBC RBC Hgb POC Hgb Hct POC Hct MCV MCH MCHC RDW Plt Count Lymph % (Auto) [place] % (Auto) Lymph # [place] # Seg Neutrophils % Seg Neutrophils # PT INR APTT Activated Clotting Time D-Dimer Heparin Anti-Xa Level POC ABG pH POC ABG pCO2 46.6 H POC ABG pO2 52 L Sodium Potassium Chloride Carbon Dioxide BUN Creatinine Glucose POC Glucose 327 H 285 H Lactic Acid Calcium Total Bilirubin AST ALT C-Reactive Protein Total Protein Albumin Ur Specific [place] Urine WBC (Auto) Crossmatch 08/21/17 08/22/17 08/22/17 18:08 00:28 06:20 WBC RBC Hgb POC Hgb Hct POC Hct MCV MCH MCHC RDW Plt Count Lymph % (Auto) [place] % (Auto) Lymph # [place] # Seg Neutrophils % Seg Neutrophils # PT INR APTT Activated Clotting Time D-Dimer Heparin Anti-Xa Level POC ABG pH POC ABG pCO2 POC ABG pO2 Sodium Potassium Chloride Carbon Dioxide BUN Creatinine Glucose POC Glucose 262 H 252 H 231 H Lactic Acid Calcium Total Bilirubin AST ALT C-Reactive Protein Total Protein Albumin Ur Specific [place] Urine WBC (Auto) Crossmatch 08/22/17 08/22/17 07:15 12:11 WBC RBC Hgb POC Hgb Hct POC Hct MCV MCH MCHC RDW Plt Count Lymph % (Auto) [place] % (Auto) Lymph # [place] # Seg Neutrophils % Seg Neutrophils # PT INR APTT Activated Clotting Time D-Dimer Heparin Anti-Xa Level POC ABG pH POC ABG pCO2 POC ABG pO2 Sodium 156 H Potassium 3.2 L Chloride 117.4 H Carbon Dioxide BUN 71 H Creatinine 1.6 H Glucose 217 H POC Glucose 246 H Lactic Acid Calcium 8.3 L Total Bilirubin AST ALT C-Reactive Protein Total Protein Albumin Ur Specific [place] Urine WBC (Auto) Crossmatch Chest x-ray: pending Allied health notes reviewed: nursing
--- NOTE | 2017-08-22 17:37 | XRay Report ---
FINAL REPORT PROCEDURE: XR CHEST 1V AP TECHNIQUE: Chest radiograph anteroposterior view. CPT 52828 HISTORY: Pulmonary edema. COMPARISON: Chest radiograph dated 08/20/2017. FINDINGS: Heart: Stable mild cardiomegaly Mediastinum/Vessels: Stable central vascular congestion. Aortic calcification. Lungs/Pleural space: Stable perihilar indistinctness and interstitial prominence. Apparent mild worsening of right lower lobe opacity/effusion. Bony thorax: Sternotomy. Mild degenerative changes of the spine. Life support devices: Endotracheal tube tip is 4 cm above the smita. Enteric tube projects below the diaphragm, distal aspect not included on exam. Interval removal of right IJ triple-lumen catheter, larger bore catheter remains with tip in the SVC. Left arm PICC line tip in the SVC. IMPRESSION: Continued cardiomegaly and aortic calcification. Central vascular congestion with perihilar indistinctness and interstitial prominence. Apparent mild worsening of right lower lobe opacity/effusion, could be related to differences in patient positioning. Consider congestive heart failure with atelectasis, cannot exclude pneumonia. New left arm PICC line tip in the SVC.
[2017-08-22] MEDS: SENOKOT S PO SCH (22:00)
[2017-08-22] MEDS: NORCO 5/325 PO PRN (22:05)
[2017-08-23] MEDS: HumaLOG SUB-Q SCH ×4 (00:40→17:14)
[2017-08-23] MEDS: ATIVAN IV PRN ×3 (02:15→22:37)
[2017-08-23 06:34] LABS: Hematocrit 25.7 % (35.5-45.6); Hemoglobin 8.1 gm/dl (11.8-15.2); Mean Corpuscular HGB Conc 32 % (32-34); Mean Corpuscular Hemoglobin 30 pg (28-32); Mean Corpuscular Volume 95 fl (84-94); Platelet Count 156 K/mm3 (140-440); Red Blood Count 2.72 M/mm3 (3.65-5.03); Red Cell Distribution Width 17.8 % (13.2-15.2)
[2017-08-23] MEDS: HEPARIN SUB-Q SCH ×3 (06:49→22:40)
[2017-08-23 07:00] LABS: Albumin 2.5 g/dL (3.9-5); Calcium 8.2 mg/dL (8.4-10.2)
--- NOTE | 2017-08-23 08:40 | Progress Note ---
Assessment and Plan Assessment and plan: Patient is 66 year old male with past medical history of hypertension, Type 2 DM , hyperlipidemia, CAD, PAD, who underwent elective vascular procedure for R [employer] , and is postop femoral endarterectomy and iliac artery stenting. Patient became hypotensive, giv multiple fluid resuscitation and blood products. Also began to exhibit some altered mental status for which were consulted. Acute hypoxic respiratory failure patient remains intubated unable to wean down secondary to altered mental status. Attempt to wean sedation patient developed agitation. Patient's cognition is still not improved enough for extubation attempt at this particular time. Pulmonology following. Vasogenic shock, now resolved -at present blood pressure is stable. Acute kidney injury secondary to ATN, shock oliguria. Creatinine 3.2 today. Patient now on hemodialysis prn, managed by Nephrology. Metabolic acidosis resolving. Fever.Repeat blood cultures drawn yesterday. ID Physician consulted, following Thrombocytopenia , now resolved. PVD status post common femoral endarterectomy followed for vascular surgery Acute Blood loss anemia- s/p massive blood transfuison. Total 14 Units PRBC Diabetes fairly well controlled with insulin sliding scale would not change at this particular time Hypertension. Will add Hydralazine.. Acute toxic metabolic Encephalopathy: Off sedation and not following commands, Neurology consulted The high probability of a clinically significant, sudden or life threatening deterioration of the [4] system(s) required my full and direct attention, intervention and personal management. The aggregate critical care time was [33] minutes. This time is in addition to time spent performing reported procedures but includes the following: [x] Data Review and interpretation [x] Patient assessment and monitoring of vital signs [x] Documentation [x] Medication orders and management History Interval history: Patient still intubated, 24 hr event reviewed, Fever more alert Hospitalist Physical - Physical exam Narrative exam: General:Not in acute distress, lying in bed,morbidly obese,intubated HEENT:Normocephalic, atraumatic Neck:supple Lungs:Clear to auscultation bilaterally , no rales , no wheeze Heart:S1 and S2 regular, no murmurs, rubs or gallop Abd: soft, non tender, non distended, normal bowel sounds Ext: leg edema, no clubbing or cyanosis Neuro: Intubated, opens eyes, more alert, now follows commands, tries to talk - Constitutional Vitals: Temp Pulse Resp BP Pulse Ox 98.7 F 100 H 16 150/73 95 08/23/17 08:00 08/23/17 08:00 08/23/17 08:00 08/23/17 08:00 08/23/17 08:00 General appearance: Present: no acute distress, obese Results - Labs CBC & Chem 7: 08/23/17 06:20 08/23/17 06:20 Labs: Laboratory Last Values WBC 13.8 K/mm3 (4.5-11.0) H 08/23/17 06:20 RBC 2.72 M/mm3 (3.65-5.03) L 08/23/17 06:20 Hgb 8.1 gm/dl (11.8-15.2) L 08/23/17 06:20 POC Hgb 8.5 (12-17) L 08/11/17 14:39 Hct 25.7 % (35.5-45.6) L 08/23/17 06:20 POC Hct 25 (38-51) L 08/11/17 14:39 MCV 95 fl (84-94) H 08/23/17 06:20 MCH 30 pg (28-32) 08/23/17 06:20 MCHC 32 % (32-34) 08/23/17 06:20 RDW 17.8 % (13.2-15.2) H 08/23/17 06:20 Plt Count 156 K/mm3 (140-440) 08/23/17 06:20 Lymph % (Auto) 6.6 % (13.4-35.0) L 08/16/17 04:42 [place] % (Auto) 10.1 % (0.0-7.3) H 08/16/17 04:42 Eos % (Auto) 0.1 % (0.0-4.3) 08/16/17 04:42 Baso % (Auto) 0.1 % (0.0-1.8) 08/16/17 04:42 Lymph # 0.9 K/mm3 (1.2-5.4) L 08/16/17 04:42 [place] # 1.4 K/mm3 (0.0-0.8) H 08/16/17 04:42 Eos # 0.0 K/mm3 (0.0-0.4) 08/16/17 04:42 Baso # 0.0 K/mm3 (0.0-0.1) 08/16/17 04:42 Seg Neutrophils % 83.1 % (40.0-70.0) H 08/16/17 04:42 Seg Neutrophils # 11.8 K/mm3 (1.8-7.7) H 08/16/17 04:42 PT 15.7 Sec. (12.2-14.9) H 08/14/17 05:00 INR 1.18 (0.87-1.13) H 08/14/17 05:00 APTT 31.7 Sec. (24.2-36.6) 08/14/17 05:00 Activated Clotting Time 164 (74-137) H 08/11/17 14:46 Fibrinogen 424 mg/dl (211-480) 08/14/17 05:00 D-Dimer 950.64 ng/mlDDU (0-234) H 08/14/17 05:00 Heparin Anti-Xa Level < 0.10 U.I./ml (0.3-0.7) L 08/12/17 21:50 Heparin Anti-Xa, Unfract Negative (Negative) 08/13/17 05:46 POC ABG pH 7.379 (7.35-7.45) 08/22/17 19:47 POC ABG pCO2 41.0 (35-45) 08/22/17 19:47 POC ABG pO2 67 (80-105) L 08/22/17 19:47 POC ABG HCO3 24.2 08/22/17 19:47 POC ABG Total CO2 25 08/22/17 19:47 POC ABG O2 Sat 93 08/22/17 19:47 POC ABG Base Excess -1 08/22/17 19:47 POC Sodium 142 mmol/L (138-146) 08/11/17 14:39 POC Potassium 4.2 (3.5-4.9) 08/11/17 14:39 POC Chloride 109 (98-109) 08/11/17 14:39 FiO2 40 % 08/22/17 19:47 Sodium 155 mmol/L (137-145) H 08/23/17 06:20 Potassium 3.6 mmol/L (3.6-5.0) 08/23/17 06:20 Chloride 118.5 mmol/L (98-107) H 08/23/17 06:20 Carbon Dioxide 25 mmol/L (22-30) 08/23/17 06:20 Anion Gap 15 mmol/L 08/23/17 06:20 POC BUN 13 mg/dl (8-26) 08/11/17 14:39 BUN 64 mg/dL (9-20) H 08/23/17 06:20 Creatinine 1.4 mg/dL (0.8-1.5) 08/23/17 06:20 Estimated GFR 50 ml/min 08/23/17 06:20 BUN/Creatinine Ratio 46 % 08/23/17 06:20 Glucose 202 mg/dL (75-100) H 08/23/17 06:20 POC Glucose 225 (70-105) H 08/23/17 00:13 Lactic Acid 1.70 mmol/L (0.7-2.0) 08/14/17 05:00 Calcium 8.2 mg/dL (8.4-10.2) L 08/23/17 06:20 Total Bilirubin 1.50 mg/dL (0.1-1.2) H 08/23/17 06:20 AST 30 units/L (5-40) 08/23/17 06:20 ALT 45 units/L (7-56) 08/23/17 06:20 Alkaline Phosphatase 101 units/L (35-129) 08/23/17 06:20 C-Reactive Protein 22.10 mg/dL (0.00-1.30) H 08/20/17 22:25 Total Protein 4.9 g/dL (6.3-8.2) L 08/23/17 06:20 Albumin 2.5 g/dL (3.9-5) L 08/23/17 06:20 Albumin/Globulin Ratio 1.0 % 08/23/17 06:20 Serotonin Release Assay See scanned report 08/13/17 05:46 Urine Color [place] (Yellow) 08/20/17 20:25 Urine Turbidity Clear (Clear) 08/20/17 20:25 Urine pH 5.0 (5.0-7.0) 08/20/17 20:25 Ur Specific [place] 1.016 (1.003-1.030) 08/20/17 20:25 Urine Protein 30 mg/dl mg/dL (Negative) 08/20/17 20:25 Urine Glucose (UA) Neg mg/dL (Negative) 08/20/17 20:25 Urine Ketones Neg mg/dL (Negative) 08/20/17 20:25 Urine Blood Mod (Negative) 08/20/17 20:25 Urine Nitrite Neg (Negative) 08/20/17 20:25 Urine Bilirubin Neg (Negative) 08/20/17 20:25 Urine Urobilinogen 4.0 mg/dL (<2.0) 08/20/17 20:25 Ur Leukocyte Esterase Neg (Negative) 08/20/17 20:25 Urine WBC (Auto) 2.0 /HPF (0.0-6.0) 08/20/17 20:25 Urine RBC (Auto) 32.0 /HPF (0.0-6.0) 08/20/17 20:25 U Epithel Cells (Auto) < 1.0 /HPF (0-13.0) 08/20/17 20:25 Urine Bacteria (Auto) 1+ /HPF (Negative) 08/20/17 20:25 Urine Mucus Few /HPF 08/20/17 20:25 Random Vancomycin 4 ug/mL (0-40.0) 08/22/17 07:15 Heparin-induced Plt Ab Negative (Negative) 08/13/17 05:46 UF Heparin High Dose 0 % Release 08/13/17 05:46 SORIN UFH Low Dose 0.1 0 % Release 08/13/17 05:46 SORIN UFH Low Dose 0.5 0 % Release 08/13/17 05:46 Hepatitis A IgM Ab Non-reactive (NonReactive) 08/13/17 15:35 Hep Bs Antigen Non-reactive (Negative) 08/13/17 15:35 Hep B Core IgM Ab Non-reactive (NonReactive) 08/13/17 15:35 Hepatitis C Antibody Non-reactive (NonReactive) 08/13/17 15:35 Miscellaneous Test Tnp 08/13/17 07:50 Blood Type O POSITIVE 08/19/17 08:26 Antibody Screen Negative 08/19/17 08:26 Crossmatch See Detail 08/19/17 08:26
[2017-08-23] MEDS: Centrum Liq PO SCH (09:11)
[2017-08-23] MEDS: VITAMIN B-1 PO SCH (09:12)
[2017-08-23] MEDS: PEPCID PO SCH ×2 (09:12→22:37)
[2017-08-23] MEDS: BABY ASPIRIN PO SCH (09:12)
[2017-08-23] MEDS: NORVASC PO SCH (09:12)
[2017-08-23] MEDS: COREG PO SCH ×2 (09:14→22:37)
[2017-08-23] MEDS: PAXIL PO SCH (09:14)
[2017-08-23] MEDS: [UNRECOGNIZED DRUG - OTHER] OS SCH ×2 (09:15→22:39)
[2017-08-23] MEDS: OPTH OS SCH ×2 (09:15→22:39)
[2017-08-23] MEDS: FOLVITE PO SCH (09:16)
[2017-08-23] MEDS: D5W 1,000 ML IV SCH (09:17)
[2017-08-23] MEDS: MAXIPIME 2 GM in NACL 0.9% 20 ML IV SCH ×2 (09:20→13:43)
[2017-08-23] MEDS: LANTUS SUB-Q SCH (09:24)
[2017-08-23] MEDS: VANCOMYCIN 2,000 MG in NACL 0.9% 500 ML 500 ML IV SCH (09:25)
--- NOTE | 2017-08-23 10:24 | Progress Note ---
Assessment and Plan 66 yo M with VDRF Plan: 1. Hold TF after MN tonight 2. scheduled for trach/peg at 8 am 08/24/17 - consent was obtained from family by Dr. Stiles 3. continue vent weaning per ICU team 4. all preop medications ordered and nursing instructed to draw them in the am tomorrow prior to procedure 5. GI ppx Thank you for this consultation, please call with questions or concerns. Subjective Date of service: 08/23/17 Narrative: Pt seen and examined. Per nursing patient has been agitated overnight and this am upon waking up. No f/c. Objective Vital Signs - 12hr 08/22/17 08/22/17 08/22/17 22:31 23:00 23:31 Temperature Pulse Rate 107 H 101 H 99 H Pulse Rate [ From Monitor] Respiratory 25 H 19 20 Rate Blood Pressure 144/72 133/70 133/70 O2 Sat by Pulse 96 96 95 Oximetry 08/22/17 08/23/17 08/23/17 23:45 00:00 00:01 Temperature Pulse Rate 96 H 99 H Pulse Rate [ 94 H From Monitor] Respiratory 20 16 19 Rate Blood Pressure 133/70 132/75 O2 Sat by Pulse 95 94 95 Oximetry 08/23/17 08/23/17 08/23/17 00:31 00:43 01:00 Temperature 99.1 F Pulse Rate 100 H 101 H Pulse Rate [ From Monitor] Respiratory 17 14 Rate Blood Pressure 132/75 137/75 O2 Sat by Pulse 98 94 Oximetry 08/23/17 08/23/17 08/23/17 01:31 02:00 02:31 Temperature Pulse Rate 91 H 101 H 80 Pulse Rate [ From Monitor] Respiratory 16 15 22 Rate Blood Pressure 137/75 137/75 151/72 O2 Sat by Pulse 94 91 92 Oximetry 08/23/17 08/23/17 08/23/17 03:01 03:31 04:00 Temperature Pulse Rate 78 92 H 86 Pulse Rate [ From Monitor] Respiratory 18 20 21 Rate Blood Pressure 102/48 102/48 129/62 O2 Sat by Pulse 95 96 95 Oximetry 08/23/17 08/23/17 08/23/17 04:21 04:23 04:31 Temperature 99.5 F Pulse Rate 77 Pulse Rate [ 94 H From Monitor] Respiratory 20 21 Rate Blood Pressure 129/62 O2 Sat by Pulse 95 95 Oximetry 08/23/17 08/23/17 08/23/17 05:00 05:31 06:00 Temperature Pulse Rate 95 H 88 88 Pulse Rate [ From Monitor] Respiratory 16 16 19 Rate Blood Pressure 130/71 130/71 127/70 O2 Sat by Pulse 95 94 95 Oximetry 08/23/17 08/23/17 08/23/17 06:31 07:01 07:04 Temperature Pulse Rate 90 91 H 90 Pulse Rate [ From Monitor] Respiratory 22 20 Rate Blood Pressure 127/70 141/60 141/60 O2 Sat by Pulse 95 Oximetry 08/23/17 08/23/17 08/23/17 07:31 08:00 08:31 Temperature 98.7 F Pulse Rate 88 95 H 91 H Pulse Rate [ 100 H From Monitor] Respiratory 19 16 10 L Rate Blood Pressure 141/60 150/73 150/73 O2 Sat by Pulse 91 95 94 Oximetry 08/23/17 08/23/17 08/23/17 09:00 09:12 09:14 Temperature Pulse Rate 93 H 95 H 97 H Pulse Rate [ From Monitor] Respiratory 15 Rate Blood Pressure 152/80 152/80 152/80 O2 Sat by Pulse 90 Oximetry 08/23/17 09:31 Temperature Pulse Rate 90 Pulse Rate [ From Monitor] Respiratory 10 L Rate Blood Pressure 152/80 O2 Sat by Pulse 94 Oximetry - General physical appearance Narrative Exam: Gen: Awake on vent. Appears anxious. Trying to talk. Responds to commands appropriately. ENT: NGT and ETT In place CV: S1, S2+ resp: coarse breath sounds b/l. No wheezes Abd: soft, NT Ext: generalized anasarca - Labs 08/23/17 06:20 08/23/17 06:20 Diabetes panel 08/23/17 Range/Units 06:20 Sodium 155 H (137-145) mmol/L Potassium 3.6 (3.6-5.0) mmol/L Chloride 118.5 H (98-107) mmol/L Carbon Dioxide 25 (22-30) mmol/L BUN 64 H (9-20) mg/dL Creatinine 1.4 (0.8-1.5) mg/dL Glucose 202 H (75-100) mg/dL Calcium 8.2 L (8.4-10.2) mg/dL AST 30 (5-40) units/L ALT 45 (7-56) units/L Alkaline Phosphatase 101 (35-129) units/L Total Protein 4.9 L (6.3-8.2) g/dL Albumin 2.5 L (3.9-5) g/dL Calcium panel 08/23/17 Range/Units 06:20 Calcium 8.2 L (8.4-10.2) mg/dL Albumin 2.5 L (3.9-5) g/dL Pituitary panel 08/23/17 Range/Units 06:20 Sodium 155 H (137-145) mmol/L Potassium 3.6 (3.6-5.0) mmol/L Chloride 118.5 H (98-107) mmol/L Carbon Dioxide 25 (22-30) mmol/L BUN 64 H (9-20) mg/dL Creatinine 1.4 (0.8-1.5) mg/dL Glucose 202 H (75-100) mg/dL Calcium 8.2 L (8.4-10.2) mg/dL Adrenal panel 08/23/17 Range/Units 06:20 Sodium 155 H (137-145) mmol/L Potassium 3.6 (3.6-5.0) mmol/L Chloride 118.5 H (98-107) mmol/L Carbon Dioxide 25 (22-30) mmol/L BUN 64 H (9-20) mg/dL Creatinine 1.4 (0.8-1.5) mg/dL Glucose 202 H (75-100) mg/dL Calcium 8.2 L (8.4-10.2) mg/dL Total Bilirubin 1.50 H (0.1-1.2) mg/dL AST 30 (5-40) units/L ALT 45 (7-56) units/L Alkaline Phosphatase 101 (35-129) units/L Total Protein 4.9 L (6.3-8.2) g/dL Albumin 2.5 L (3.9-5) g/dL
--- NOTE | 2017-08-23 12:55 | Progress Note ---
Assessment and Plan The patient's renal function continues to improve. He remains on the vent and is pending PEG/Trach per general surgery. Continue supportive care. After is PEG/Trach will likely look to transfer to [facility]. Subjective Date of service: 08/23/17 Principal diagnosis: Acute Hypoxemic Respiratory Failure; Hemorrhagic Shock; WILLIAM on Dilaysis;PVD Interval history: No significant events overnight. The patient is currently sedated because he attempted to pull his endotracheal tube out this morning requiring Ativan however he does follow commands. Objective - Constitutional Vitals: Vital Signs - 12hr 08/23/17 08/23/17 08/23/17 01:00 01:31 02:00 Temperature Pulse Rate 101 H 91 H 101 H Pulse Rate [ From Monitor] Respiratory 14 16 15 Rate Blood Pressure 137/75 137/75 137/75 O2 Sat by Pulse 94 94 91 Oximetry 08/23/17 08/23/17 08/23/17 02:31 03:01 03:31 Temperature Pulse Rate 80 78 92 H Pulse Rate [ From Monitor] Respiratory 22 18 20 Rate Blood Pressure 151/72 102/48 102/48 O2 Sat by Pulse 92 95 96 Oximetry 08/23/17 08/23/17 08/23/17 04:00 04:21 04:23 Temperature 99.5 F Pulse Rate 86 Pulse Rate [ 94 H From Monitor] Respiratory 21 20 Rate Blood Pressure 129/62 O2 Sat by Pulse 95 95 Oximetry 08/23/17 08/23/17 08/23/17 04:31 05:00 05:31 Temperature Pulse Rate 77 95 H 88 Pulse Rate [ From Monitor] Respiratory 21 16 16 Rate Blood Pressure 129/62 130/71 130/71 O2 Sat by Pulse 95 95 94 Oximetry 08/23/17 08/23/17 08/23/17 06:00 06:31 07:01 Temperature Pulse Rate 88 90 91 H Pulse Rate [ From Monitor] Respiratory 19 22 20 Rate Blood Pressure 127/70 127/70 141/60 O2 Sat by Pulse 95 Oximetry 08/23/17 08/23/17 08/23/17 07:04 07:31 08:00 Temperature 98.7 F Pulse Rate 90 88 95 H Pulse Rate [ 100 H From Monitor] Respiratory 19 16 Rate Blood Pressure 141/60 141/60 150/73 O2 Sat by Pulse 95 91 95 Oximetry 08/23/17 08/23/17 08/23/17 08:31 09:00 09:12 Temperature Pulse Rate 91 H 93 H 95 H Pulse Rate [ From Monitor] Respiratory 10 L 15 Rate Blood Pressure 150/73 152/80 152/80 O2 Sat by Pulse 94 90 Oximetry 08/23/17 08/23/17 08/23/17 09:14 09:31 10:00 Temperature Pulse Rate 97 H 90 90 Pulse Rate [ From Monitor] Respiratory 10 L 10 L Rate Blood Pressure 152/80 152/80 140/73 O2 Sat by Pulse 94 88 Oximetry 08/23/17 08/23/17 08/23/17 10:31 11:00 12:00 Temperature 98.4 F Pulse Rate 74 82 Pulse Rate [ 81 From Monitor] Respiratory 14 20 22 Rate Blood Pressure 140/73 152/79 O2 Sat by Pulse 86 85 91 Oximetry 08/23/17 12:01 Temperature Pulse Rate 82 Pulse Rate [ From Monitor] Respiratory 23 Rate Blood Pressure 152/79 O2 Sat by Pulse 85 Oximetry General appearance: Present: no acute distress - Neck Neck: supple - Respiratory Respiratory effort: other (ventilatory support) - Breasts Breasts: deferred - Cardiovascular Rhythm: regular Extremities: no ischemia, normal temperature Extremity abnormal: edema (bilaterally), other (right groin incision is clean dry and intact) - Gastrointestinal General gastrointestinal: Present: soft, non-tender, other (protuberant) Rectal Exam: deferred - Genitourinary Male genitourinary: deferred - Integumentary Integumentary: clear, warm - Labs CBC & Chem 7: 08/23/17 06:20 08/23/17 06:20 Labs: Abnormal lab results 08/22/17 08/22/17 08/23/17 Range/Units 17:15 19:47 00:13 WBC (4.5-11.0) K/mm3 RBC (3.65-5.03) M/mm3 Hgb (11.8-15.2) gm/dl Hct (35.5-45.6) % MCV (84-94) fl RDW (13.2-15.2) % POC ABG pO2 67 L (80-105) Sodium (137-145) mmol/L Chloride (98-107) mmol/L BUN (9-20) mg/dL Glucose (75-100) mg/dL POC Glucose 227 H 225 H (70-105) Calcium (8.4-10.2) mg/dL Total Bilirubin (0.1-1.2) mg/dL Total Protein (6.3-8.2) g/dL Albumin (3.9-5) g/dL 08/23/17 08/23/17 08/23/17 Range/Units 06:20 06:20 11:07 WBC 13.8 H (4.5-11.0) K/mm3 RBC 2.72 L (3.65-5.03) M/mm3 Hgb 8.1 L (11.8-15.2) gm/dl Hct 25.7 L (35.5-45.6) % MCV 95 H (84-94) fl RDW 17.8 H (13.2-15.2) % POC ABG pO2 (80-105) Sodium 155 H (137-145) mmol/L Chloride 118.5 H (98-107) mmol/L BUN 64 H (9-20) mg/dL Glucose 202 H (75-100) mg/dL POC Glucose 253 H (70-105) Calcium 8.2 L (8.4-10.2) mg/dL Total Bilirubin 1.50 H (0.1-1.2) mg/dL Total Protein 4.9 L (6.3-8.2) g/dL Albumin 2.5 L (3.9-5) g/dL
--- NOTE | 2017-08-23 15:17 | Progress Note ---
Assessment and Plan Acute Hypoxic Respiratory failure Vasogenic Shock, Presumed Bleed WILLIAM Secondary to vasomotor nephropathy Severe Metabolic Acidosis Acute blood loss anemia PVD s/p right femoral end-arterectomy Acute encephalopathy s/p Massive blood transfusion Leukocytosis - continue daily SAT's and SBT's while awaiting tracheostomy placement also ( tentatively fo Trach & PEG on tomorrow) - continue supplemental oxygen and wean to keep sats > 90% - continue to address VAP bundle daily - continue antibiotics and follow cultures/clinically for de-escalation - ID on case also - weaned off vasopressors - continue HD/UF per nephrology prescription for volume and toxin clearance (on hold as now making urine) - massive transfusion protocol followed; received FFP's and platelets - hold all anticoagulation till H&H stabilizes - continue SCD's - continue agitation and analgesia management while avoiding benzodiazepines - Avoiding\ nephrotoxic agents - ok to discontinue barrientos catheter - continue enteral nutrition as tolerated - Azotemia per nephrology team otherwise - case discussed at length with surgery and in team rounds and care plan formulated - Prognosis remains guarded overall although improved, with risk of decompensation from a hemodynamic standpoint and even . - continue other care per attending / other consultants .... re-evaluate in am & prn ...30' CCT Subjective Date of service: 08/23/17 Principal diagnosis: Acute Hypoxemic Respiratory Failure; Hemorrhagic Shock; WILLIAM on Dilaysis;PVD Interval history: Patient is seen today for: Acute Hypoxemic Respiratory Failure; Hemorrhagic Shock; WILLIAM on Dilaysis;PVD Seen and examined at bedside; 24 hour events reviewed; nursing and respiratory care staff consulted; remains on MVS; on PSV 04/01 and tolerating decently; ETT day # 12-13; tentatively for PEG & Trach in am; no new issues otherwise Objective Vital Signs - 12hr 08/23/17 08/23/17 08/23/17 03:31 04:00 04:21 Temperature 99.5 F Pulse Rate 92 H 86 Pulse Rate [ From Monitor] Respiratory 20 21 Rate Blood Pressure 102/48 129/62 O2 Sat by Pulse 96 95 Oximetry 08/23/17 08/23/17 08/23/17 04:23 04:31 05:00 Temperature Pulse Rate 77 95 H Pulse Rate [ 94 H From Monitor] Respiratory 20 21 16 Rate Blood Pressure 129/62 130/71 O2 Sat by Pulse 95 95 95 Oximetry 08/23/17 08/23/17 08/23/17 05:31 06:00 06:31 Temperature Pulse Rate 88 88 90 Pulse Rate [ From Monitor] Respiratory 16 19 22 Rate Blood Pressure 130/71 127/70 127/70 O2 Sat by Pulse 94 95 Oximetry 08/23/17 08/23/17 08/23/17 07:01 07:04 07:31 Temperature Pulse Rate 91 H 90 88 Pulse Rate [ From Monitor] Respiratory 20 19 Rate Blood Pressure 141/60 141/60 141/60 O2 Sat by Pulse 95 91 Oximetry 08/23/17 08/23/17 08/23/17 08:00 08:31 09:00 Temperature 98.7 F Pulse Rate 95 H 91 H 93 H Pulse Rate [ 100 H From Monitor] Respiratory 16 10 L 15 Rate Blood Pressure 150/73 150/73 152/80 O2 Sat by Pulse 95 94 90 Oximetry 08/23/17 08/23/17 08/23/17 09:12 09:14 09:31 Temperature Pulse Rate 95 H 97 H 90 Pulse Rate [ From Monitor] Respiratory 10 L Rate Blood Pressure 152/80 152/80 152/80 O2 Sat by Pulse 94 Oximetry 08/23/17 08/23/17 08/23/17 10:00 10:31 11:00 Temperature Pulse Rate 90 74 82 Pulse Rate [ From Monitor] Respiratory 10 L 14 20 Rate Blood Pressure 140/73 140/73 152/79 O2 Sat by Pulse 88 86 85 Oximetry 08/23/17 08/23/17 08/23/17 12:00 12:01 12:31 Temperature 98.4 F Pulse Rate 82 86 Pulse Rate [ 81 From Monitor] Respiratory 22 23 23 Rate Blood Pressure 152/79 123/60 O2 Sat by Pulse 91 85 91 Oximetry 08/23/17 08/23/17 08/23/17 13:01 13:31 14:00 Temperature Pulse Rate 81 87 75 Pulse Rate [ From Monitor] Respiratory 22 21 21 Rate Blood Pressure 117/51 101/57 89/59 O2 Sat by Pulse 94 95 95 Oximetry 08/23/17 08/23/17 14:30 15:00 Temperature Pulse Rate 84 85 Pulse Rate [ From Monitor] Respiratory 22 21 Rate Blood Pressure 117/54 115/62 O2 Sat by Pulse 95 95 Oximetry Constitutional: no acute distress, other (obese; somnolent) Eyes: non-icteric ENT: oropharynx moist, oropharyngeal exudate pre, other (large neck circumference) Neck: supple, no lymphadenopathy, no JVD, other (RIJ VasCath) Effort: mildly labored Ascultation: Bilateral: diminished breath sounds, rales Percussion: Bilateral: not dull Cardiovascular: regular rate and rhythm, other (No R/M) Gastrointestinal: normoactive bowel sounds, soft, non-tender, other (distended; no palpable HSM) Integumentary: other (post-op scars) Extremities: no cyanosis, pink and warm, no ischemia or petechiae, edema (2+) Neurologic: non-focal exam (grossly), unable to assess (otherwise) Psychiatric: other (unable to assess) CBC and BMP: 08/24/17 06:20 08/24/17 06:20 ABG, PT/INR, D-dimer: ABG POC ABG pH 7.379 (7.35-7.45) 08/22/17 19:47 POC ABG pCO2 41.0 (35-45) 08/22/17 19:47 POC ABG pO2 67 (80-105) L 08/22/17 19:47 POC ABG HCO3 24.2 08/22/17 19:47 POC ABG Total CO2 25 08/22/17 19:47 POC ABG O2 Sat 93 08/22/17 19:47 PT/INR, D-dimer PT 15.7 Sec. (12.2-14.9) H 08/14/17 05:00 INR 1.18 (0.87-1.13) H 08/14/17 05:00 D-Dimer 950.64 ng/mlDDU (0-234) H 08/14/17 05:00 Abnormal lab findings: Abnormal Labs 08/10/17 08/10/17 08/10/17 10:05 10:05 10:05 WBC RBC Hgb POC Hgb Hct POC Hct MCV 97 H MCH 33 H MCHC RDW Plt Count Lymph % (Auto) [place] % (Auto) Lymph # [place] # Seg Neutrophils % 72.9 H Seg Neutrophils # PT 11.6 L INR 0.81 L APTT Activated Clotting Time D-Dimer Heparin Anti-Xa Level POC ABG pH POC ABG pCO2 POC ABG pO2 Sodium Potassium Chloride Carbon Dioxide BUN Creatinine 0.7 L Glucose 196 H POC Glucose Lactic Acid Calcium Total Bilirubin AST ALT C-Reactive Protein Total Protein Albumin Ur Specific Given Urine WBC (Auto) Crossmatch 08/11/17 08/11/17 08/11/17 06:50 07:03 09:50 WBC RBC Hgb POC Hgb Hct POC Hct MCV MCH MCHC RDW Plt Count Lymph % (Auto) [place] % (Auto) Lymph # [place] # Seg Neutrophils % Seg Neutrophils # PT INR APTT Activated Clotting Time D-Dimer Heparin Anti-Xa Level POC ABG pH 7.270 L POC ABG pCO2 49.1 H POC ABG pO2 117 H Sodium Potassium Chloride Carbon Dioxide BUN Creatinine Glucose POC Glucose 160 H Lactic Acid Calcium Total Bilirubin AST ALT C-Reactive Protein Total Protein Albumin Ur Specific Given Urine WBC (Auto) Crossmatch See Detail 08/11/17 08/11/17 08/11/17 10:52 11:12 12:16 WBC RBC Hgb POC Hgb Hct POC Hct MCV MCH MCHC RDW Plt Count Lymph % (Auto) [place] % (Auto) Lymph # [place] # Seg Neutrophils % Seg Neutrophils # PT INR APTT Activated Clotting Time 191 H 153 H D-Dimer Heparin Anti-Xa Level POC ABG pH POC ABG pCO2 POC ABG pO2 Sodium Potassium Chloride Carbon Dioxide BUN Creatinine Glucose POC Glucose 176 H Lactic Acid Calcium Total Bilirubin AST ALT C-Reactive Protein Total Protein Albumin Ur Specific Given Urine WBC (Auto) Crossmatch 08/11/17 08/11/17 08/11/17 12:27 13:07 14:39 WBC RBC Hgb POC Hgb 9.9 L 8.5 L Hct POC Hct 29 L 25 L MCV MCH MCHC RDW Plt Count Lymph % (Auto) [place] % (Auto) Lymph # [place] # Seg Neutrophils % Seg Neutrophils # PT INR APTT Activated Clotting Time 186 H D-Dimer Heparin Anti-Xa Level POC ABG pH POC ABG pCO2 POC ABG pO2 Sodium Potassium Chloride Carbon Dioxide BUN Creatinine Glucose POC Glucose 183 H 197 H Lactic Acid Calcium Total Bilirubin AST ALT C-Reactive Protein Total Protein Albumin Ur Specific Given Urine WBC (Auto) Crossmatch 08/11/17 08/11/17 08/11/17 14:46 16:18 17:57 WBC 12.7 H RBC 3.00 L Hgb 9.5 L D POC Hgb Hct 28.3 L D POC Hct MCV MCH MCHC RDW 16.3 H Plt Count 105 L Lymph % (Auto) 6.7 L [place] % (Auto) Lymph # 0.8 L [place] # Seg Neutrophils % 86.3 H Seg Neutrophils # 10.9 H PT INR APTT Activated Clotting Time 164 H D-Dimer Heparin Anti-Xa Level POC ABG pH POC ABG pCO2 POC ABG pO2 Sodium Potassium Chloride Carbon Dioxide BUN Creatinine Glucose POC Glucose 192 H Lactic Acid Calcium Total Bilirubin AST ALT C-Reactive Protein Total Protein Albumin Ur Specific Given Urine WBC (Auto) Crossmatch 08/11/17 08/11/17 08/11/17 17:57 20:00 20:00 WBC RBC Hgb 10.2 L POC Hgb Hct 31.1 L POC Hct MCV MCH MCHC RDW Plt Count 117 L Lymph % (Auto) [place] % (Auto) Lymph # [place] # Seg Neutrophils % Seg Neutrophils # PT 15.3 H INR 1.15 H APTT 97.7 H* Activated Clotting Time D-Dimer Heparin Anti-Xa Level POC ABG pH POC ABG pCO2 POC ABG pO2 Sodium Potassium Chloride 117.4 H Carbon Dioxide 18 L BUN Creatinine 0.7 L Glucose 143 H POC Glucose Lactic Acid Calcium 6.4 L D Total Bilirubin AST ALT C-Reactive Protein Total Protein Albumin Ur Specific Given Urine WBC (Auto) Crossmatch 08/12/17 08/12/17 08/12/17 03:30 03:50 03:50 WBC RBC Hgb 9.2 L 9.1 L POC Hgb Hct 27.5 L 27.2 L POC Hct MCV MCH MCHC RDW Plt Count Lymph % (Auto) [place] % (Auto) Lymph # [place] # Seg Neutrophils % Seg Neutrophils # PT INR APTT Activated Clotting Time D-Dimer Heparin Anti-Xa Level POC ABG pH POC ABG pCO2 POC ABG pO2 Sodium Potassium Chloride 113.5 H Carbon Dioxide 13 L BUN Creatinine Glucose 243 H POC Glucose Lactic Acid Calcium 6.3 L Total Bilirubin AST ALT C-Reactive Protein Total Protein Albumin Ur Specific Given Urine WBC (Auto) Crossmatch 08/12/17 08/12/17 08/12/17 07:36 08:48 16:16 WBC RBC Hgb POC Hgb Hct POC Hct MCV MCH MCHC RDW Plt Count Lymph % (Auto) [place] % (Auto) Lymph # [place] # Seg Neutrophils % Seg Neutrophils # PT INR APTT Activated Clotting Time D-Dimer Heparin Anti-Xa Level POC ABG pH 6.952 L 7.159 L POC ABG pCO2 49.1 H 47.8 H POC ABG pO2 76 L 106 H Sodium Potassium Chloride Carbon Dioxide BUN Creatinine Glucose POC Glucose 246 H Lactic Acid Calcium Total Bilirubin AST ALT C-Reactive Protein Total Protein Albumin Ur Specific Given Urine WBC (Auto) Crossmatch 08/12/17 08/12/17 08/12/17 17:54 18:30 20:15 WBC 17.9 H RBC 3.29 L Hgb 10.0 L POC Hgb Hct 29.3 L POC Hct MCV MCH MCHC RDW 15.5 H Plt Count 76 L Lymph % (Auto) [place] % (Auto) Lymph # [place] # Seg Neutrophils % Seg Neutrophils # PT INR APTT Activated Clotting Time D-Dimer Heparin Anti-Xa Level POC ABG pH POC ABG pCO2 POC ABG pO2 Sodium Potassium Chloride Carbon Dioxide BUN Creatinine Glucose POC Glucose 240 H Lactic Acid Calcium Total Bilirubin AST ALT C-Reactive Protein Total Protein Albumin Ur Specific Given 1.051 H Urine WBC (Auto) > 182.0 H Crossmatch 08/12/17 08/12/17 08/13/17 21:50 21:50 03:20 WBC RBC Hgb POC Hgb Hct POC Hct MCV MCH MCHC RDW Plt Count Lymph % (Auto) [place] % (Auto) Lymph # [place] # Seg Neutrophils % Seg Neutrophils # PT INR APTT Activated Clotting Time D-Dimer Heparin Anti-Xa Level < 0.10 L POC ABG pH POC ABG pCO2 POC ABG pO2 Sodium Potassium 5.4 H Chloride 110.8 H Carbon Dioxide 18 L BUN 30 H Creatinine 2.5 H D Glucose 216 H POC Glucose 235 H Lactic Acid Calcium 5.7 L* Total Bilirubin AST ALT C-Reactive Protein Total Protein Albumin Ur Specific Given Urine WBC (Auto) Crossmatch 08/13/17 08/13/17 08/13/17 05:46 05:46 06:06 WBC 14.6 H RBC 2.49 L Hgb 7.6 L POC Hgb Hct 22.3 L D POC Hct MCV MCH MCHC RDW 15.7 H Plt Count 78 L Lymph % (Auto) 10.3 L [place] % (Auto) Lymph # [place] # Seg Neutrophils % 84.1 H Seg Neutrophils # 12.3 H PT INR APTT Activated Clotting Time D-Dimer Heparin Anti-Xa Level POC ABG pH 7.282 L POC ABG pCO2 POC ABG pO2 Sodium Potassium Chloride 107.5 H Carbon Dioxide 19 L BUN 35 H Creatinine 2.9 H Glucose 242 H POC Glucose Lactic Acid Calcium 6.3 L Total Bilirubin AST 1304 H ALT 533 H C-Reactive Protein Total Protein 4.4 L Albumin 2.8 L Ur Specific Given Urine WBC (Auto) Crossmatch 08/13/17 08/13/17 08/13/17 07:10 07:10 09:00 WBC RBC Hgb POC Hgb Hct POC Hct MCV MCH MCHC RDW Plt Count Lymph % (Auto) [place] % (Auto) Lymph # [place] # Seg Neutrophils % Seg Neutrophils # PT 17.4 H INR 1.35 H APTT Activated Clotting Time D-Dimer 598.44 H Heparin Anti-Xa Level POC ABG pH POC ABG pCO2 POC ABG pO2 Sodium Potassium Chloride 107.2 H Carbon Dioxide 19 L BUN 35 H Creatinine 2.8 H Glucose 240 H POC Glucose Lactic Acid 3.10 H* Calcium 6.2 L Total Bilirubin AST ALT C-Reactive Protein Total Protein Albumin Ur Specific Given Urine WBC (Auto) Crossmatch 08/13/17 08/13/17 08/13/17 17:55 18:31 21:19 WBC RBC Hgb POC Hgb Hct POC Hct MCV MCH MCHC RDW Plt Count Lymph % (Auto) [place] % (Auto) Lymph # [place] # Seg Neutrophils % Seg Neutrophils # PT INR APTT Activated Clotting Time D-Dimer Heparin Anti-Xa Level POC ABG pH 7.451 H POC ABG pCO2 33.0 L POC ABG pO2 53 L Sodium Potassium Chloride Carbon Dioxide BUN Creatinine Glucose POC Glucose 247 H Lactic Acid 2.20 H* Calcium Total Bilirubin AST ALT C-Reactive Protein Total Protein Albumin Ur Specific Given Urine WBC (Auto) Crossmatch 08/13/17 08/14/17 08/14/17 23:34 00:10 05:00 WBC RBC Hgb POC Hgb Hct POC Hct MCV MCH MCHC RDW Plt Count Lymph % (Auto) [place] % (Auto) Lymph # [place] # Seg Neutrophils % Seg Neutrophils # PT 15.7 H INR 1.18 H APTT Activated Clotting Time D-Dimer 950.64 H Heparin Anti-Xa Level POC ABG pH POC ABG pCO2 POC ABG pO2 Sodium Potassium Chloride Carbon Dioxide BUN Creatinine Glucose POC Glucose 237 H Lactic Acid 2.70 H* Calcium Total Bilirubin AST ALT C-Reactive Protein Total Protein Albumin Ur Specific Given Urine WBC (Auto) Crossmatch 08/14/17 08/14/17 08/14/17 05:00 05:11 10:26 WBC 14.2 H RBC 2.66 L Hgb 7.9 L POC Hgb Hct 23.2 L POC Hct MCV MCH MCHC RDW 16.0 H Plt Count 75 L Lymph % (Auto) [place] % (Auto) Lymph # [place] # Seg Neutrophils % Seg Neutrophils # PT INR APTT Activated Clotting Time D-Dimer Heparin Anti-Xa Level POC ABG pH POC ABG pCO2 POC ABG pO2 78 L Sodium Potassium Chloride Carbon Dioxide BUN Creatinine Glucose POC Glucose 227 H Lactic Acid Calcium Total Bilirubin AST ALT C-Reactive Protein Total Protein Albumin Ur Specific Given Urine WBC (Auto) Crossmatch 08/14/17 08/14/17 08/14/17 11:28 11:28 12:06 WBC RBC Hgb POC Hgb Hct POC Hct MCV MCH MCHC RDW Plt Count Lymph % (Auto) [place] % (Auto) Lymph # [place] # Seg Neutrophils % Seg Neutrophils # PT INR APTT Activated Clotting Time D-Dimer Heparin Anti-Xa Level POC ABG pH POC ABG pCO2 POC ABG pO2 Sodium Potassium Chloride Carbon Dioxide BUN 43 H Creatinine 3.6 H Glucose 209 H POC Glucose 219 H Lactic Acid Calcium 7.6 L D Total Bilirubin AST ALT C-Reactive Protein 29.00 H Total Protein Albumin Ur Specific Given Urine WBC (Auto) Crossmatch 08/14/17 08/14/17 08/14/17 17:57 19:54 23:23 WBC RBC Hgb POC Hgb Hct POC Hct MCV MCH MCHC RDW Plt Count Lymph % (Auto) [place] % (Auto) Lymph # [place] # Seg Neutrophils % Seg Neutrophils # PT INR APTT Activated Clotting Time D-Dimer Heparin Anti-Xa Level POC ABG pH POC ABG pCO2 46.5 H POC ABG pO2 64 L Sodium Potassium Chloride Carbon Dioxide BUN Creatinine Glucose POC Glucose 178 H 170 H Lactic Acid Calcium Total Bilirubin AST ALT C-Reactive Protein Total Protein Albumin Ur Specific Given Urine WBC (Auto) Crossmatch 08/15/17 08/15/17 08/15/17 03:44 04:40 05:19 WBC 12.6 H RBC 2.49 L Hgb 7.4 L POC Hgb Hct 22.1 L POC Hct MCV MCH MCHC RDW 16.5 H Plt Count 64 L Lymph % (Auto) [place] % (Auto) Lymph # [place] # Seg Neutrophils % Seg Neutrophils # PT INR APTT Activated Clotting Time D-Dimer Heparin Anti-Xa Level POC ABG pH POC ABG pCO2 48.1 H POC ABG pO2 68 L Sodium Potassium Chloride Carbon Dioxide BUN Creatinine Glucose POC Glucose 154 H Lactic Acid Calcium Total Bilirubin AST ALT C-Reactive Protein Total Protein Albumin Ur Specific Given Urine WBC (Auto) Crossmatch 08/15/17 08/15/17 08/15/17 12:20 13:22 18:05 WBC RBC Hgb POC Hgb Hct POC Hct MCV MCH MCHC RDW Plt Count Lymph % (Auto) [place] % (Auto) Lymph # [place] # Seg Neutrophils % Seg Neutrophils # PT INR APTT Activated Clotting Time D-Dimer Heparin Anti-Xa Level POC ABG pH POC ABG pCO2 POC ABG pO2 Sodium Potassium Chloride Carbon Dioxide BUN 45 H Creatinine 4.1 H Glucose 141 H POC Glucose 147 H 170 H Lactic Acid Calcium 7.8 L Total Bilirubin AST ALT C-Reactive Protein Total Protein Albumin Ur Specific Given Urine WBC (Auto) Crossmatch 08/15/17 08/16/17 08/16/17 23:43 04:42 05:22 WBC 14.2 H RBC 2.54 L Hgb 7.5 L POC Hgb Hct 22.6 L POC Hct MCV MCH MCHC RDW 16.4 H Plt Count 73 L Lymph % (Auto) 6.6 L [place] % (Auto) 10.1 H Lymph # 0.9 L [place] # 1.4 H Seg Neutrophils % 83.1 H Seg Neutrophils # 11.8 H PT INR APTT Activated Clotting Time D-Dimer Heparin Anti-Xa Level POC ABG pH POC ABG pCO2 POC ABG pO2 71 L Sodium Potassium Chloride Carbon Dioxide BUN Creatinine Glucose POC Glucose 155 H Lactic Acid Calcium Total Bilirubin AST ALT C-Reactive Protein Total Protein Albumin Ur Specific Given Urine WBC (Auto) Crossmatch 08/16/17 08/16/17 08/16/17 06:20 08:49 11:54 WBC RBC Hgb POC Hgb Hct POC Hct MCV MCH MCHC RDW Plt Count Lymph % (Auto) [place] % (Auto) Lymph # [place] # Seg Neutrophils % Seg Neutrophils # PT INR APTT Activated Clotting Time D-Dimer Heparin Anti-Xa Level POC ABG pH POC ABG pCO2 POC ABG pO2 Sodium Potassium Chloride Carbon Dioxide BUN Creatinine Glucose POC Glucose 165 H 191 H 188 H Lactic Acid Calcium Total Bilirubin AST ALT C-Reactive Protein Total Protein Albumin Ur Specific Given Urine WBC (Auto) Crossmatch 08/16/17 08/16/17 08/16/17 13:00 18:32 23:33 WBC RBC Hgb POC Hgb Hct POC Hct MCV MCH MCHC RDW Plt Count Lymph % (Auto) [place] % (Auto) Lymph # [place] # Seg Neutrophils % Seg Neutrophils # PT INR APTT Activated Clotting Time D-Dimer Heparin Anti-Xa Level POC ABG pH POC ABG pCO2 POC ABG pO2 Sodium Potassium Chloride Carbon Dioxide BUN 47 H Creatinine 3.4 H Glucose 179 H POC Glucose 219 H 179 H Lactic Acid Calcium 8.2 L Total Bilirubin AST ALT C-Reactive Protein Total Protein Albumin Ur Specific Given Urine WBC (Auto) Crossmatch 08/17/17 08/17/17 08/17/17 04:25 04:30 05:32 WBC 15.2 H RBC 2.60 L Hgb 7.6 L POC Hgb Hct 23.8 L POC Hct MCV MCH MCHC RDW 16.3 H Plt Count 92 L Lymph % (Auto) [place] % (Auto) Lymph # [place] # Seg Neutrophils % Seg Neutrophils # PT INR APTT Activated Clotting Time D-Dimer Heparin Anti-Xa Level POC ABG pH POC ABG pCO2 POC ABG pO2 57 L Sodium Potassium Chloride Carbon Dioxide BUN 63 H Creatinine 3.4 H Glucose 155 H POC Glucose Lactic Acid Calcium 8.3 L Total Bilirubin 1.40 H AST 99 H ALT 93 H C-Reactive Protein Total Protein 5.6 L D Albumin 3.1 L Ur Specific Given Urine WBC (Auto) Crossmatch 08/17/17 08/17/17 08/17/17 06:36 12:37 17:44 WBC RBC Hgb POC Hgb Hct POC Hct MCV MCH MCHC RDW Plt Count Lymph % (Auto) [place] % (Auto) Lymph # [place] # Seg Neutrophils % Seg Neutrophils # PT INR APTT Activated Clotting Time D-Dimer Heparin Anti-Xa Level POC ABG pH POC ABG pCO2 POC ABG pO2 Sodium Potassium Chloride Carbon Dioxide BUN Creatinine Glucose POC Glucose 167 H 203 H 158 H Lactic Acid Calcium Total Bilirubin AST ALT C-Reactive Protein Total Protein Albumin Ur Specific Given Urine WBC (Auto) Crossmatch 08/17/17 08/18/17 08/18/17 23:55 04:30 05:57 WBC RBC 2.40 L Hgb 7.3 L POC Hgb Hct 21.8 L POC Hct MCV MCH MCHC RDW 16.3 H Plt Count 95 L Lymph % (Auto) [place] % (Auto) Lymph # [place] # Seg Neutrophils % Seg Neutrophils # PT INR APTT Activated Clotting Time D-Dimer Heparin Anti-Xa Level POC ABG pH POC ABG pCO2 POC ABG pO2 Sodium Potassium Chloride Carbon Dioxide BUN Creatinine Glucose POC Glucose 146 H 179 H Lactic Acid Calcium Total Bilirubin AST ALT C-Reactive Protein Total Protein Albumin Ur Specific Given Urine WBC (Auto) Crossmatch 08/18/17 08/18/17 08/18/17 08:20 08:20 08:32 WBC RBC Hgb POC Hgb Hct POC Hct MCV MCH MCHC RDW Plt Count Lymph % (Auto) [place] % (Auto) Lymph # [place] # Seg Neutrophils % Seg Neutrophils # PT INR APTT Activated Clotting Time D-Dimer Heparin Anti-Xa Level POC ABG pH POC ABG pCO2 POC ABG pO2 Sodium 146 H Potassium Chloride 108.4 H Carbon Dioxide BUN 62 H Creatinine 2.4 H Glucose 125 H POC Glucose 161 H Lactic Acid Calcium Total Bilirubin AST ALT C-Reactive Protein 13.90 H Total Protein Albumin Ur Specific Given Urine WBC (Auto) Crossmatch 08/18/17 08/18/17 08/18/17 11:33 17:18 23:31 WBC RBC Hgb POC Hgb Hct POC Hct MCV MCH MCHC RDW Plt Count Lymph % (Auto) [place] % (Auto) Lymph # [place] # Seg Neutrophils % Seg Neutrophils # PT INR APTT Activated Clotting Time D-Dimer Heparin Anti-Xa Level POC ABG pH POC ABG pCO2 POC ABG pO2 Sodium Potassium Chloride Carbon Dioxide BUN Creatinine Glucose POC Glucose 165 H 126 H 166 H Lactic Acid Calcium Total Bilirubin AST ALT C-Reactive Protein Total Protein Albumin Ur Specific Given Urine WBC (Auto) Crossmatch 08/19/17 08/19/17 08/19/17 04:33 05:00 05:44 WBC RBC 1.69 L Hgb 5.1 L* POC Hgb Hct 15.9 L* POC Hct MCV 95 H MCH MCHC RDW 17.1 H Plt Count 75 L Lymph % (Auto) [place] % (Auto) Lymph # [place] # Seg Neutrophils % Seg Neutrophils # PT INR APTT Activated Clotting Time D-Dimer Heparin Anti-Xa Level POC ABG pH POC ABG pCO2 POC ABG pO2 65 L Sodium Potassium Chloride Carbon Dioxide BUN Creatinine Glucose POC Glucose 174 H Lactic Acid Calcium Total Bilirubin AST ALT C-Reactive Protein Total Protein Albumin Ur Specific Given Urine WBC (Auto) Crossmatch 08/19/17 08/19/17 08/19/17 08:26 09:45 11:05 WBC RBC Hgb 8.8 L D POC Hgb Hct 26.7 L D POC Hct MCV MCH MCHC RDW Plt Count Lymph % (Auto) [place] % (Auto) Lymph # [place] # Seg Neutrophils % Seg Neutrophils # PT INR APTT Activated Clotting Time D-Dimer Heparin Anti-Xa Level POC ABG pH POC ABG pCO2 POC ABG pO2 Sodium 151 H Potassium 3.3 L Chloride 112.5 H Carbon Dioxide BUN 65 H Creatinine 1.6 H Glucose 145 H POC Glucose Lactic Acid Calcium 7.9 L Total Bilirubin AST ALT C-Reactive Protein Total Protein Albumin Ur Specific Given Urine WBC (Auto) Crossmatch See Detail 08/19/17 08/19/17 08/19/17 11:34 18:02 23:37 WBC RBC Hgb POC Hgb Hct POC Hct MCV MCH MCHC RDW Plt Count Lymph % (Auto) [place] % (Auto) Lymph # [place] # Seg Neutrophils % Seg Neutrophils # PT INR APTT Activated Clotting Time D-Dimer Heparin Anti-Xa Level POC ABG pH POC ABG pCO2 POC ABG pO2 Sodium Potassium Chloride Carbon Dioxide BUN Creatinine Glucose POC Glucose 166 H 224 H 222 H Lactic Acid Calcium Total Bilirubin AST ALT C-Reactive Protein Total Protein Albumin Ur Specific Given Urine WBC (Auto) Crossmatch 08/20/17 08/20/17 08/20/17 04:26 04:45 04:45 WBC 14.4 H RBC 2.97 L Hgb 8.9 L POC Hgb Hct 26.9 L POC Hct MCV MCH MCHC RDW 16.8 H Plt Count Lymph % (Auto) [place] % (Auto) Lymph # [place] # Seg Neutrophils % Seg Neutrophils # PT INR APTT Activated Clotting Time D-Dimer Heparin Anti-Xa Level POC ABG pH 7.497 H POC ABG pCO2 33.4 L POC ABG pO2 68 L Sodium 153 H Potassium Chloride 112.8 H Carbon Dioxide BUN 71 H Creatinine 1.7 H Glucose 244 H POC Glucose Lactic Acid Calcium Total Bilirubin AST ALT C-Reactive Protein Total Protein Albumin Ur Specific Given Urine WBC (Auto) Crossmatch 08/20/17 08/20/17 08/20/17 05:42 12:31 17:56 WBC RBC Hgb POC Hgb Hct POC Hct MCV MCH MCHC RDW Plt Count Lymph % (Auto) [place] % (Auto) Lymph # [place] # Seg Neutrophils % Seg Neutrophils # PT INR APTT Activated Clotting Time D-Dimer Heparin Anti-Xa Level POC ABG pH POC ABG pCO2 POC ABG pO2 Sodium Potassium Chloride Carbon Dioxide BUN Creatinine Glucose POC Glucose 224 H 274 H 267 H Lactic Acid Calcium Total Bilirubin AST ALT C-Reactive Protein Total Protein Albumin Ur Specific Given Urine WBC (Auto) Crossmatch 08/20/17 08/20/17 08/21/17 22:25 23:52 04:15 WBC 13.3 H RBC 2.84 L Hgb 8.3 L POC Hgb Hct 26.8 L POC Hct MCV MCH MCHC 31 L RDW 17.8 H Plt Count Lymph % (Auto) [place] % (Auto) Lymph # [place] # Seg Neutrophils % Seg Neutrophils # PT INR APTT Activated Clotting Time D-Dimer Heparin Anti-Xa Level POC ABG pH POC ABG pCO2 POC ABG pO2 Sodium Potassium Chloride Carbon Dioxide BUN Creatinine Glucose POC Glucose 241 H Lactic Acid Calcium Total Bilirubin AST ALT C-Reactive Protein 22.10 H Total Protein Albumin Ur Specific Given Urine WBC (Auto) Crossmatch 08/21/17 08/21/17 08/21/17 04:15 05:50 06:23 WBC RBC Hgb POC Hgb Hct POC Hct MCV MCH MCHC RDW Plt Count Lymph % (Auto) [place] % (Auto) Lymph # [place] # Seg Neutrophils % Seg Neutrophils # PT INR APTT Activated Clotting Time D-Dimer Heparin Anti-Xa Level POC ABG pH POC ABG pCO2 POC ABG pO2 74 L Sodium 158 H Potassium 3.2 L Chloride 118.8 H Carbon Dioxide BUN 74 H Creatinine 1.8 H Glucose 227 H POC Glucose 230 H Lactic Acid Calcium Total Bilirubin AST ALT C-Reactive Protein Total Protein Albumin Ur Specific Given Urine WBC (Auto) Crossmatch 08/21/17 08/21/17 08/21/17 11:04 11:44 12:34 WBC RBC Hgb POC Hgb Hct POC Hct MCV MCH MCHC RDW Plt Count Lymph % (Auto) [place] % (Auto) Lymph # [place] # Seg Neutrophils % Seg Neutrophils # PT INR APTT Activated Clotting Time D-Dimer Heparin Anti-Xa Level POC ABG pH POC ABG pCO2 46.6 H POC ABG pO2 52 L Sodium Potassium Chloride Carbon Dioxide BUN Creatinine Glucose POC Glucose 327 H 285 H Lactic Acid Calcium Total Bilirubin AST ALT C-Reactive Protein Total Protein Albumin Ur Specific Given Urine WBC (Auto) Crossmatch 08/21/17 08/22/17 08/22/17 18:08 00:28 06:20 WBC RBC Hgb POC Hgb Hct POC Hct MCV MCH MCHC RDW Plt Count Lymph % (Auto) [place] % (Auto) Lymph # [place] # Seg Neutrophils % Seg Neutrophils # PT INR APTT Activated Clotting Time D-Dimer Heparin Anti-Xa Level POC ABG pH POC ABG pCO2 POC ABG pO2 Sodium Potassium Chloride Carbon Dioxide BUN Creatinine Glucose POC Glucose 262 H 252 H 231 H Lactic Acid Calcium Total Bilirubin AST ALT C-Reactive Protein Total Protein Albumin Ur Specific Given Urine WBC (Auto) Crossmatch 08/22/17 08/22/17 08/22/17 07:15 12:11 17:15 WBC RBC Hgb POC Hgb Hct POC Hct MCV MCH MCHC RDW Plt Count Lymph % (Auto) [place] % (Auto) Lymph # [place] # Seg Neutrophils % Seg Neutrophils # PT INR APTT Activated Clotting Time D-Dimer Heparin Anti-Xa Level POC ABG pH POC ABG pCO2 POC ABG pO2 Sodium 156 H Potassium 3.2 L Chloride 117.4 H Carbon Dioxide BUN 71 H Creatinine 1.6 H Glucose 217 H POC Glucose 246 H 227 H Lactic Acid Calcium 8.3 L Total Bilirubin AST ALT C-Reactive Protein Total Protein Albumin Ur Specific Given Urine WBC (Auto) Crossmatch 08/22/17 08/23/17 08/23/17 19:47 00:13 06:20 WBC RBC Hgb POC Hgb Hct POC Hct MCV MCH MCHC RDW Plt Count Lymph % (Auto) [place] % (Auto) Lymph # [place] # Seg Neutrophils % Seg Neutrophils # PT INR APTT Activated Clotting Time D-Dimer Heparin Anti-Xa Level POC ABG pH POC ABG pCO2 POC ABG pO2 67 L Sodium 155 H Potassium Chloride 118.5 H Carbon Dioxide BUN 64 H Creatinine Glucose 202 H POC Glucose 225 H Lactic Acid Calcium 8.2 L Total Bilirubin 1.50 H AST ALT C-Reactive Protein Total Protein 4.9 L Albumin 2.5 L Ur Specific Given Urine WBC (Auto) Crossmatch 08/23/17 08/23/17 06:20 11:07 WBC 13.8 H RBC 2.72 L Hgb 8.1 L POC Hgb Hct 25.7 L POC Hct MCV 95 H MCH MCHC RDW 17.8 H Plt Count Lymph % (Auto) [place] % (Auto) Lymph # [place] # Seg Neutrophils % Seg Neutrophils # PT INR APTT Activated Clotting Time D-Dimer Heparin Anti-Xa Level POC ABG pH POC ABG pCO2 POC ABG pO2 Sodium Potassium Chloride Carbon Dioxide BUN Creatinine Glucose POC Glucose 253 H Lactic Acid Calcium Total Bilirubin AST ALT C-Reactive Protein Total Protein Albumin Ur Specific Given Urine WBC (Auto) Crossmatch Allied health notes reviewed: nursing
--- NOTE | 2017-08-23 15:40 | Progress Note ---
Assessment and Plan - Patient Problems (1) Acute renal failure due to tubular necrosis Current Visit: Yes Status: Acute Plan to address problem: Acute renal failure / acute tubular necrosis nonoliguric with improving urine output. Still with volume overload but improving with diuresis. Kidney indices are unchanged. Patient is now in posterior fluid balance due to free water replacement. Follow up electrolytes and renal function. (2) Hypernatremia Current Visit: Yes Status: Acute Plan to address problem: Sodium is now improving. Continue hypotonic fluids. Follow-up sodium (3) Hypokalemia Current Visit: Yes Status: Acute Plan to address problem: Supplement potassium and follow up levels. (4) Hemorrhagic shock Current Visit: Yes Status: Acute Plan to address problem: Status post multiple transfusions. Appears to be resolving. Follow-up hemoglobin (5) Hypocalcemia Current Visit: Yes Status: Acute Plan to address problem: Supplemental calcium as indicated. (6) Metabolic acidosis Current Visit: Yes Status: Acute Plan to address problem: Bicarbonate has improved. Follow bicarbonate level (7) Atherosclerosis of [place] arteries of extremity with intermittent claudication Current Visit: No Status: Acute Plan to address problem: Continue management per vascular surgeon (8) Anemia Current Visit: Yes Status: Acute Plan to address problem: Hemoglobin improved. Continue to Follow-up hemoglobin. Subjective Date of service: 08/23/17 Principal diagnosis: Acute Hypoxemic Respiratory Failure; Hemorrhagic Shock; WILLIAM on Dilaysis;PVD Interval history: Patient seen lying in bed in intensive care unit. He is intubated on the ventilator. He is drowsy. He was given severity of about 30 minutes ago. He had been agitated. Objective - Exam Narrative Exam: Middle aged male lying in bed intubated on ventilator HEENT: NCAT, endotracheal tube intact, orogastric tube intact Neck: Supple, no venous distention CVS: S1S2 RRR with no murmur, rub or gallop Chest: Faint rhonchi Abdomen: Distended, soft to firm, nontender, no organomegaly, bowel sounds are present Extremities: 1-2+ pitting edema, no cyanosis. Skin warm and dry with areas of ecchymoses Neuro: Sedated - Vital Signs Vital signs: Vital Signs - 12hr 08/23/17 08/23/17 08/23/17 04:00 04:21 04:23 Temperature 99.5 F Pulse Rate 86 Pulse Rate [ 94 H From Monitor] Respiratory 21 20 Rate Blood Pressure 129/62 O2 Sat by Pulse 95 95 Oximetry 08/23/17 08/23/17 08/23/17 04:31 05:00 05:31 Temperature Pulse Rate 77 95 H 88 Pulse Rate [ From Monitor] Respiratory 21 16 16 Rate Blood Pressure 129/62 130/71 130/71 O2 Sat by Pulse 95 95 94 Oximetry 08/23/17 08/23/17 08/23/17 06:00 06:31 07:01 Temperature Pulse Rate 88 90 91 H Pulse Rate [ From Monitor] Respiratory 19 22 20 Rate Blood Pressure 127/70 127/70 141/60 O2 Sat by Pulse 95 Oximetry 08/23/17 08/23/17 08/23/17 07:04 07:31 08:00 Temperature 98.7 F Pulse Rate 90 88 95 H Pulse Rate [ 100 H From Monitor] Respiratory 19 16 Rate Blood Pressure 141/60 141/60 150/73 O2 Sat by Pulse 95 91 95 Oximetry 08/23/17 08/23/17 08/23/17 08:31 09:00 09:12 Temperature Pulse Rate 91 H 93 H 95 H Pulse Rate [ From Monitor] Respiratory 10 L 15 Rate Blood Pressure 150/73 152/80 152/80 O2 Sat by Pulse 94 90 Oximetry 08/23/17 08/23/17 08/23/17 09:14 09:31 10:00 Temperature Pulse Rate 97 H 90 90 Pulse Rate [ From Monitor] Respiratory 10 L 10 L Rate Blood Pressure 152/80 152/80 140/73 O2 Sat by Pulse 94 88 Oximetry 08/23/17 08/23/17 08/23/17 10:31 11:00 12:00 Temperature 98.4 F Pulse Rate 74 82 Pulse Rate [ 81 From Monitor] Respiratory 14 20 22 Rate Blood Pressure 140/73 152/79 O2 Sat by Pulse 86 85 91 Oximetry 08/23/17 08/23/17 08/23/17 12:01 12:31 13:01 Temperature Pulse Rate 82 86 81 Pulse Rate [ From Monitor] Respiratory 23 23 22 Rate Blood Pressure 152/79 123/60 117/51 O2 Sat by Pulse 85 91 94 Oximetry 08/23/17 08/23/17 08/23/17 13:31 14:00 14:30 Temperature Pulse Rate 87 75 84 Pulse Rate [ From Monitor] Respiratory 21 21 22 Rate Blood Pressure 101/57 89/59 117/54 O2 Sat by Pulse 95 95 95 Oximetry 08/23/17 15:00 Temperature Pulse Rate 85 Pulse Rate [ From Monitor] Respiratory 21 Rate Blood Pressure 115/62 O2 Sat by Pulse 95 Oximetry - Lab 08/23/17 06:20 08/23/17 06:20 Most recent lab results Calcium 8.2 mg/dL (8.4-10.2) L 08/23/17 06:20
[2017-08-23] MEDS: SENOKOT S PO SCH (22:38)
[2017-08-24] MEDS: HumaLOG SUB-Q SCH ×4 (00:24→17:00)
[2017-08-24] MEDS: MAXIPIME 2 GM in NACL 0.9% 20 ML IV SCH ×4 (02:51→21:11)
[2017-08-24] MEDS: HEPARIN SUB-Q SCH ×3 (06:10→21:11)
[2017-08-24] MEDS ORDERED: WATER FOR IRRIG STERILE IR ONE (07:17)
[2017-08-24] MEDS ORDERED: ATROPINE 0.1% (CARDIAC) ONE (07:17)
[2017-08-24] MEDS ORDERED: NORCURON IV ONE (07:30)
[2017-08-24] MEDS ORDERED: ATROPINE IV NR (07:30)
[2017-08-24] MEDS ORDERED: VERSED IV SCH (07:30)
[2017-08-24] MEDS ORDERED: SUBLIMAZE IV ONE (07:30)
[2017-08-24] MEDS ORDERED: DIPRIVAN 10 MG/ML IV ONE ×3 (07:30→07:52)
[2017-08-24 07:40] LABS: Hematocrit 27.5 % (35.5-45.6); Hemoglobin 8.6 gm/dl (11.8-15.2); Mean Corpuscular HGB Conc 31 % (32-34); Mean Corpuscular Hemoglobin 30 pg (28-32); Mean Corpuscular Volume 96 fl (84-94); Platelet Count 173 K/mm3 (140-440); Red Blood Count 2.87 M/mm3 (3.65-5.03); Red Cell Distribution Width 17.6 % (13.2-15.2)
[2017-08-24] MEDS ORDERED: VERSED ONE (07:52)
[2017-08-24] MEDS ORDERED: NACL 0.9% 1000 ML 1,000 ML ONE (07:53)
[2017-08-24 07:54] LABS: BUN/Creatinine Ratio 55; Blood Urea Nitrogen 60 mg/dL (9-20); Calcium 8.5 mg/dL (8.4-10.2); Hemolysis Index 3
--- NOTE | 2017-08-24 08:18 | Progress Note ---
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 Patient became hypotensive, giv multiple fluid resuscitation and blood products. Also began to exhibit some altered mental status for which were consulted. Acute hypoxic respiratory failure patient remains intubated unable to wean down secondary to altered mental status. Attempt to wean sedation patient developed agitation. Patient's cognition is still not improved enough for extubation. For trach and PEG today Vasogenic shock, now resolved -at present blood pressure is stable. Acute kidney injury secondary to ATN, shock oliguria. Now resolved, Creatinine 1.1 today. Patient was on hemodialysis prn, managed by Nephrology. Metabolic acidosis resolved Fever.Repeat blood cultures drawn . ID Physician consulted, following Thrombocytopenia , now resolved. PVD status post common femoral endarterectomy followed for vascular surgery Acute Blood loss anemia- s/p massive blood transfuson. Total 14 Units PRBC Diabetes fairly well controlled with insulin sliding scale would not change at this particular time Hypertension. BP elevated. Will Acute toxic metabolic Encephalopathy: Improving, now follows commands. The high probability of a clinically significant, sudden or life threatening deterioration of the [4] system(s) required my full and direct attention, intervention and personal management. The aggregate critical care time was [32] minutes. This time is in addition to time spent performing reported procedures but includes the following: [x] Data Review and interpretation [x] Patient assessment and monitoring of vital signs [x] Documentation [x] Medication orders and management History Interval history: Patient still intubated, 24 hr event reviewed, Fever For trach and PEG today Hospitalist Physical - Physical exam Narrative exam: General:Not in acute distress, lying in bed,morbidly obese,intubated HEENT:Normocephalic, atraumatic Neck:supple Lungs:Clear to auscultation bilaterally , no rales , no wheeze Heart:S1 and S2 regular, no murmurs, rubs or gallop Abd: soft, non tender, non distended, normal bowel sounds Ext: leg edema, no clubbing or cyanosis Neuro: Intubated, opens eyes, more alert, now follows commands, tries to talk - Constitutional Vitals: Temp Pulse Resp BP Pulse Ox 98.0 F 109 H 24 169/75 100 08/24/17 07:50 08/24/17 08:01 08/24/17 08:01 08/24/17 08:01 08/24/17 08:01 General appearance: Present: no acute distress Results - Labs CBC & Chem 7: 08/24/17 06:20 08/24/17 06:20 Labs: Laboratory Last Values WBC 15.3 K/mm3 (4.5-11.0) H 08/24/17 06:20 RBC 2.87 M/mm3 (3.65-5.03) L 08/24/17 06:20 Hgb 8.6 gm/dl (11.8-15.2) L 08/24/17 06:20 POC Hgb 8.5 (12-17) L 08/11/17 14:39 Hct 27.5 % (35.5-45.6) L 08/24/17 06:20 POC Hct 25 (38-51) L 08/11/17 14:39 MCV 96 fl (84-94) H 08/24/17 06:20 MCH 30 pg (28-32) 08/24/17 06:20 MCHC 31 % (32-34) L 08/24/17 06:20 RDW 17.6 % (13.2-15.2) H 08/24/17 06:20 Plt Count 173 K/mm3 (140-440) 08/24/17 06:20 Lymph % (Auto) 6.6 % (13.4-35.0) L 08/16/17 04:42 [place] % (Auto) 10.1 % (0.0-7.3) H 08/16/17 04:42 Eos % (Auto) 0.1 % (0.0-4.3) 08/16/17 04:42 Baso % (Auto) 0.1 % (0.0-1.8) 08/16/17 04:42 Lymph # 0.9 K/mm3 (1.2-5.4) L 08/16/17 04:42 [place] # 1.4 K/mm3 (0.0-0.8) H 08/16/17 04:42 Eos # 0.0 K/mm3 (0.0-0.4) 08/16/17 04:42 Baso # 0.0 K/mm3 (0.0-0.1) 08/16/17 04:42 Seg Neutrophils % 83.1 % (40.0-70.0) H 08/16/17 04:42 Seg Neutrophils # 11.8 K/mm3 (1.8-7.7) H 08/16/17 04:42 PT 15.7 Sec. (12.2-14.9) H 08/14/17 05:00 INR 1.18 (0.87-1.13) H 08/14/17 05:00 APTT 31.7 Sec. (24.2-36.6) 08/14/17 05:00 Activated Clotting Time 164 (74-137) H 08/11/17 14:46 Fibrinogen 424 mg/dl (211-480) 08/14/17 05:00 D-Dimer 950.64 ng/mlDDU (0-234) H 08/14/17 05:00 Heparin Anti-Xa Level < 0.10 U.I./ml (0.3-0.7) L 08/12/17 21:50 Heparin Anti-Xa, Unfract Negative (Negative) 08/13/17 05:46 POC ABG pH 7.401 (7.35-7.45) 08/23/17 15:40 POC ABG pCO2 41.1 (35-45) 08/23/17 15:40 POC ABG pO2 65 (80-105) L 08/23/17 15:40 POC ABG HCO3 25.5 08/23/17 15:40 POC ABG Total CO2 27 08/23/17 15:40 POC ABG O2 Sat 92 08/23/17 15:40 POC ABG Base Excess 1 08/23/17 15:40 POC Sodium 142 mmol/L (138-146) 08/11/17 14:39 POC Potassium 4.2 (3.5-4.9) 08/11/17 14:39 POC Chloride 109 (98-109) 08/11/17 14:39 FiO2 45 % 08/23/17 15:40 Sodium 156 mmol/L (137-145) H 08/24/17 06:20 Potassium 3.7 mmol/L (3.6-5.0) 08/24/17 06:20 Chloride 118.7 mmol/L (98-107) H 08/24/17 06:20 Carbon Dioxide 27 mmol/L (22-30) 08/24/17 06:20 Anion Gap 14 mmol/L 08/24/17 06:20 POC BUN 13 mg/dl (8-26) 08/11/17 14:39 BUN 60 mg/dL (9-20) H 08/24/17 06:20 Creatinine 1.1 mg/dL (0.8-1.5) 08/24/17 06:20 Estimated GFR > 60 ml/min 08/24/17 06:20 BUN/Creatinine Ratio 55 % 08/24/17 06:20 Glucose 163 mg/dL (75-100) H 08/24/17 06:20 POC Glucose 170 (70-105) H 08/24/17 00:13 Lactic Acid 1.70 mmol/L (0.7-2.0) 08/14/17 05:00 Calcium 8.5 mg/dL (8.4-10.2) 08/24/17 06:20 Phosphorus 2.60 mg/dL (2.5-4.5) 08/24/17 06:20 Magnesium 2.10 mg/dL (1.7-2.3) 08/24/17 06:20 Total Bilirubin 1.50 mg/dL (0.1-1.2) H 08/23/17 06:20 AST 30 units/L (5-40) 08/23/17 06:20 ALT 45 units/L (7-56) 08/23/17 06:20 Alkaline Phosphatase 101 units/L (35-129) 08/23/17 06:20 C-Reactive Protein 22.10 mg/dL (0.00-1.30) H 08/20/17 22:25 Total Protein 4.9 g/dL (6.3-8.2) L 08/23/17 06:20 Albumin 2.5 g/dL (3.9-5) L 08/23/17 06:20 Albumin/Globulin Ratio 1.0 % 08/23/17 06:20 Serotonin Release Assay See scanned report 08/13/17 05:46 Urine Color [place] (Yellow) 08/20/17 20:25 Urine Turbidity Clear (Clear) 08/20/17 20:25 Urine pH 5.0 (5.0-7.0) 08/20/17 20:25 Ur Specific [place] 1.016 (1.003-1.030) 08/20/17 20:25 Urine Protein 30 mg/dl mg/dL (Negative) 08/20/17 20:25 Urine Glucose (UA) Neg mg/dL (Negative) 08/20/17 20:25 Urine Ketones Neg mg/dL (Negative) 08/20/17 20:25 Urine Blood Mod (Negative) 08/20/17 20:25 Urine Nitrite Neg (Negative) 08/20/17 20:25 Urine Bilirubin Neg (Negative) 08/20/17 20:25 Urine Urobilinogen 4.0 mg/dL (<2.0) 08/20/17 20:25 Ur Leukocyte Esterase Neg (Negative) 08/20/17 20:25 Urine WBC (Auto) 2.0 /HPF (0.0-6.0) 08/20/17 20:25 Urine RBC (Auto) 32.0 /HPF (0.0-6.0) 08/20/17 20:25 U Epithel Cells (Auto) < 1.0 /HPF (0-13.0) 08/20/17 20:25 Urine Bacteria (Auto) 1+ /HPF (Negative) 08/20/17 20:25 Urine Mucus Few /HPF 08/20/17 20:25 Random Vancomycin 4 ug/mL (0-40.0) 08/22/17 07:15 Heparin-induced Plt Ab Negative (Negative) 08/13/17 05:46 UF Heparin High Dose 0 % Release 08/13/17 05:46 SORIN UFH Low Dose 0.1 0 % Release 08/13/17 05:46 SORIN UFH Low Dose 0.5 0 % Release 08/13/17 05:46 Hepatitis A IgM Ab Non-reactive (NonReactive) 08/13/17 15:35 Hep Bs Antigen Non-reactive (Negative) 08/13/17 15:35 Hep B Core IgM Ab Non-reactive (NonReactive) 08/13/17 15:35 Hepatitis C Antibody Non-reactive (NonReactive) 08/13/17 15:35 Miscellaneous Test Tnp 08/13/17 07:50 Blood Type O POSITIVE 08/19/17 08:26 Antibody Screen Negative 08/19/17 08:26 Crossmatch See Detail 08/19/17 08:26
--- NOTE | 2017-08-24 09:02 | Progress Note ---
Assessment and Plan Assessment: 1) Sepsis with intermittent hypovolemic +/- septic shock: Shock and fever resolved and leukocytosis is up. Sepsis Etiology ?? unclear - possibilities VAP . CRP=22 2) Presumed VAP: CXR showed bibasilar perihilar and bibasilar opacities and right mod pleural effusion, left mild pleural effusion. 3) Acute respiratory failure: for airway protection - better 4) Acute encephalopathy: multifactorial - better 5) UTI: inital UA c/w UTI, urine cx negative. Repeat UA neg 6) Right lower extremity chronic ischemia with short distance claudication: -S/P elective right common femoral endarterectomy with patch angioplasty, bilateral common iliac and right external artery stenting on 08/11/17 7) Ruptured pseudoaneurysm left groin/external iliac: -CTA showed retroperitoneal hemorrhage and bladder thickening. -S/P deployment of new Viabond stent graft across the inguinal ligament into the common femoral artery on 08/13/17. 8) WILLIAM 9) Anasarca Plan: -follow-up respiratory cultures -follow-up procalcitonin -continue vancomycin and cefepime renally dosed - D5/7 -he is to have a bedside PEG and trach today Discussed with ICU staff Thank you for your consultation, will follow up with you. Tasia Baldwin MD Infectious Diseases Specialist [facility] ([facility]) M [phone] O [phone] Subjective Date of service: 08/24/17 Principal diagnosis: Acute Hypoxemic Respiratory Failure; Hemorrhagic Shock; WILLIAM on Dilaysis;PVD Interval history: Remains intubated, FIO2 45% P 6, no fever, alert. Microbiology: Blood cultures: 08/14 neg 08/20 neg Urine cultures: 08/14 neg Current Antimicrobials: vanco 08/20 cefepime 08/20 Previous Antimicrobials: doxycycline 08/14 Objective - Exam Narrative Exam: General appearance: sedated on the vent Eyes: anicteric sclerae, moist conjunctivae; no lid-lag; HENT: Atraumatic; oropharynx +ETT Neck: Trachea midline; supple, no thyromegaly or lymphadenopathy Lungs: bilateral rhonchi CV: RRR Abdomen: Soft, non-tender; no masses or hepatosplenomegaly Extremities: +kati marked leg edema Skin: +decreased massive scrotal edema + kati groin wounds Psych: sedated Neuro: sedated Lines: right IJ, left arm PICC - Constitutional Vitals: Vital Signs Temp Pulse Resp BP Pulse Ox 98.0 F 109 H 24 169/75 100 08/24/17 07:50 08/24/17 08:01 08/24/17 08:01 08/24/17 08:01 08/24/17 08:01 Temperature -Last 24 Hours Temperature 98.0 F Temperature 98.7 F Temperature 98.6 F Temperature 98.1 F Temperature 98.1 F Temperature 98.4 F - Labs CBC & Chem 7: 08/24/17 06:20 08/24/17 06:20 Labs: Abnormal lab results 08/23/17 08/23/17 08/23/17 Range/Units 11:07 15:40 17:13 WBC (4.5-11.0) K/mm3 RBC (3.65-5.03) M/mm3 Hgb (11.8-15.2) gm/dl Hct (35.5-45.6) % MCV (84-94) fl MCHC (32-34) % RDW (13.2-15.2) % POC ABG pO2 65 L (80-105) Sodium (137-145) mmol/L Chloride (98-107) mmol/L BUN (9-20) mg/dL Glucose (75-100) mg/dL POC Glucose 253 H 236 H (70-105) 08/24/17 08/24/17 08/24/17 Range/Units 00:13 06:20 06:20 WBC 15.3 H (4.5-11.0) K/mm3 RBC 2.87 L (3.65-5.03) M/mm3 Hgb 8.6 L (11.8-15.2) gm/dl Hct 27.5 L (35.5-45.6) % MCV 96 H (84-94) fl MCHC 31 L (32-34) % RDW 17.6 H (13.2-15.2) % POC ABG pO2 (80-105) Sodium 156 H (137-145) mmol/L Chloride 118.7 H (98-107) mmol/L BUN 60 H (9-20) mg/dL Glucose 163 H (75-100) mg/dL POC Glucose 170 H (70-105)
--- NOTE | 2017-08-24 09:14 | Procedure Note ---
Date of procedure: 08/24/17 Pre-op diagnosis: Vent dependent respiratory failure Post-op diagnosis: same Procedure: Percutaneous tracheostomy placement Findings: Consent verified of the chart. Time out performed. The patient placed in supine position and a roll placed under his neck and hyperextended. Bronchoscopy performed by Dr. Stiles during the entire procedure (please see separate note). The neck was prepped and draped in the usual sterile fashion. Local anesthetic was infilitrated into the skin and subcutaneous tissue approximately 2 fingerbreaths superior to the sternal notch. A 1 cm horizontal incision was made in the skin using a 15 blade. The subcutaneous tissue was bluntly dissected with a hemostat until the trachea was palpated. The trachea was entered using a needle under direct visualization under bronchoscopy. The wire was inserted in the trachea down towards the smita. The needle was removed. The trachea was serially dilated and an 8F shiley tracheostomy tube was inserted. The balloon was seen in the trachea and it was inflated. Bronchoscopy was then performed through the tracheostomy and there was no evidence of bleeding and the tip of the tracheostomy was at least 3 cm above the smita. The tracheostomy tube was sutured into place using 2-0 prolene suture. A drain sponge was placed between the tracheostomy and the skin and tracheostomy strap applied. The vent was attached and inspiratory and expiratory tidal volumes were satisfactory. The patient tolerated the procedure well. All sharps were disposed of appropriately. Implants: 8F shiley tracheostomy tube Anesthesia: MAC, local Surgeon: REHANA MAHMOOD Estimated blood loss: minimal Pathology: none Condition: stable Disposition: ICU
--- NOTE | 2017-08-24 09:47 | Post Operative Note ---
Date of procedure: 08/24/17 Pre-op diagnosis: Respiratory Failure Post-op diagnosis: same Findings: Normal anatomy Procedure: Bronchoscopic Report Written Consent was on the chart. Pre-op Dx Respiratory Failure Post-op Dx same Procedure Bronchoscopy for tracheostomy placement (CPT 76601) Conscious Sedation (CPT 63790+56694r3) Surgeon Cameron Silveira MD Surgeon performing tracheostomy Munira Howard DO Anesth MAC EBL min Specimen none Findings Complications Disposition Stable in ICU Indications Procedure, risks, benefits, alternatives have been discussed. Consent was obtained. Procedure After time out was called, bronchoscopy was begun. Airway was evaluated. Secretions were aspirated. ETT was pulled back to about 16cm at the teeth. Dr. Howard performed the tracheostomy under bronchoscopic guidance. Introducer needle was seen safely entering the trachea. Trach was placed after serial dilation. Bronchoscope was then inserted through the trach to confirm position. There was several centimeters of space above the msita. There was no significant bleeding. Patient had good inspiratory and expiratory tidal volumes. Pt was stable in ICU. Total Conscious Sedation time = 45min. Anesthesia: MAC Surgeon: LAUREN SILVEIRA Estimated blood loss: minimal Pathology: none Condition: stable Disposition: ICU
--- NOTE | 2017-08-24 09:50 | Post Operative Note ---
Date of procedure: 08/24/17 Pre-op diagnosis: Respiratory Failure Post-op diagnosis: same Findings: normal esophagus, stomach, 1st part of duodenum Procedure: PEG placement (CPT 36733) Timeout was called EGD scope was advanced into the stomach. Stomach was insufflated. Site was identified by good transillumination, at least 3 fingerbreadths away from costal margin and not too close to pylorus. After sterile prep and drape, Dr. Mahmood anesthetized the planned insertion site and inserted the introducer needle. Wire was inserted and pulled back into the mouth. PEG tube was attached and then pulled into position by Dr. Mahmood. EGD scope was re-inserted and button was identified. There was no bleeding and button was seen to be in good position. I then proceeded to evaluate the rest of the stomach and proximal portion of duodenum. The esophagus was evaluated as the scope was being pulled out. Pt tolerated the procedure well. The PEG collar was at 2 cm at the skin level. Anesthesia: MAC Surgeon: LAUREN SILVEIRA Network Operations Analyst: REHANA MAHMOOD Estimated blood loss: minimal Pathology: none Condition: stable Disposition: ICU
[2017-08-24] MEDS: OPTH OS SCH ×2 (10:13→22:56)
[2017-08-24] MEDS: LANTUS SUB-Q SCH (10:13)
[2017-08-24] MEDS: [UNRECOGNIZED DRUG - OTHER] OS SCH ×2 (10:13→22:56)
[2017-08-24] MEDS: VANCOMYCIN 2,000 MG in NACL 0.9% 500 ML 500 ML IV SCH (10:14)
--- NOTE | 2017-08-24 10:17 | Progress Note ---
Assessment and Plan - Patient Problems (1) Acute renal failure due to tubular necrosis Current Visit: Yes Status: Acute Plan to address problem: Acute renal failure / acute tubular necrosis nonoliguric with improving urine output. Still with volume overload but improving with diuresis. Kidney indices are improving. Follow up electrolytes and renal function. (2) Hypernatremia Current Visit: Yes Status: Acute Plan to address problem: Continue D5W, Follow-up sodium (3) Hypokalemia Current Visit: Yes Status: Acute Plan to address problem: Supplement potassium and follow up levels. (4) Hemorrhagic shock Current Visit: Yes Status: Acute Plan to address problem: Status post multiple transfusions. Appears to be resolving. Follow-up hemoglobin (5) Metabolic acidosis Current Visit: Yes Status: Acute Plan to address problem: improved (6) Hypocalcemia Current Visit: Yes Status: Acute Plan to address problem: Supplemental calcium as indicated. (7) Atherosclerosis of [place] arteries of extremity with intermittent claudication Current Visit: No Status: Acute Plan to address problem: Continue management per vascular surgeon (8) Anemia Current Visit: Yes Status: Acute Plan to address problem: Hemoglobin improved. Continue to Follow-up hemoglobin Subjective Date of service: 08/24/17 Principal diagnosis: Acute Hypoxemic Respiratory Failure; Hemorrhagic Shock; WILLIAM on Dilaysis;PVD Interval history: pt remains on vent, s/p PEG. Objective - Vital Signs Vital signs: Vital Signs - 12hr 08/23/17 08/23/17 08/23/17 22:30 22:37 23:00 Temperature Pulse Rate 90 93 H 99 H Pulse Rate [ From Monitor] Respiratory 25 H 25 H Rate Blood Pressure 153/71 153/71 161/79 O2 Sat by Pulse 90 Oximetry 08/23/17 08/23/17 08/23/17 23:20 23:26 23:31 Temperature 98.6 F Pulse Rate 91 H 93 H Pulse Rate [ From Monitor] Respiratory 22 Rate Blood Pressure 161/79 123/56 O2 Sat by Pulse 98 Oximetry 08/24/17 08/24/17 08/24/17 00:00 00:30 01:00 Temperature Pulse Rate 95 H 87 82 Pulse Rate [ 89 From Monitor] Respiratory 21 22 21 Rate Blood Pressure 121/73 130/63 119/61 O2 Sat by Pulse 97 Oximetry 08/24/17 08/24/17 08/24/17 01:30 02:00 02:30 Temperature Pulse Rate 84 80 84 Pulse Rate [ From Monitor] Respiratory 22 24 24 Rate Blood Pressure 132/66 134/68 125/63 O2 Sat by Pulse Oximetry 08/24/17 08/24/17 08/24/17 03:00 03:18 03:31 Temperature Pulse Rate 87 95 H 87 Pulse Rate [ From Monitor] Respiratory 22 23 Rate Blood Pressure 134/72 134/72 141/68 O2 Sat by Pulse 97 Oximetry 08/24/17 08/24/17 08/24/17 03:42 04:00 04:01 Temperature 98.7 F Pulse Rate 98 H Pulse Rate [ 86 From Monitor] Respiratory 18 23 Rate Blood Pressure 152/77 O2 Sat by Pulse 98 Oximetry 08/24/17 08/24/17 08/24/17 04:30 05:01 05:31 Temperature Pulse Rate 86 87 85 Pulse Rate [ From Monitor] Respiratory 13 22 17 Rate Blood Pressure 152/77 188/77 168/78 O2 Sat by Pulse Oximetry 08/24/17 08/24/17 08/24/17 06:01 06:31 07:01 Temperature Pulse Rate 101 H 96 H 97 H Pulse Rate [ From Monitor] Respiratory 23 21 22 Rate Blood Pressure 183/90 178/78 194/96 O2 Sat by Pulse 96 95 96 Oximetry 08/24/17 08/24/17 08/24/17 07:30 07:50 08:00 Temperature 99.8 F H Pulse Rate 90 109 H 102 H Pulse Rate [ 98 H From Monitor] Respiratory 22 24 19 Rate Blood Pressure 162/77 169/75 162/77 O2 Sat by Pulse 96 100 96 Oximetry 08/24/17 08/24/17 08/24/17 08:01 08:10 08:15 Temperature Pulse Rate 109 H 102 H 107 H Pulse Rate [ From Monitor] Respiratory 24 18 22 Rate Blood Pressure 169/75 161/80 167/70 O2 Sat by Pulse 100 100 100 Oximetry 08/24/17 08/24/17 08/24/17 08:21 08:25 08:31 Temperature Pulse Rate 123 H 112 H 115 H Pulse Rate [ From Monitor] Respiratory 11 L 12 14 Rate Blood Pressure 160/82 153/76 128/66 O2 Sat by Pulse 100 100 100 Oximetry 08/24/17 08/24/17 08/24/17 08:35 08:40 08:45 Temperature Pulse Rate 105 H 107 H 104 H Pulse Rate [ From Monitor] Respiratory 12 10 L 11 L Rate Blood Pressure 129/79 182/87 179/75 O2 Sat by Pulse 98 96 99 Oximetry 08/24/17 08/24/17 08/24/17 08:51 08:55 09:00 Temperature Pulse Rate 97 H 100 H 99 H Pulse Rate [ From Monitor] Respiratory 14 12 13 Rate Blood Pressure 98/50 98/55 112/58 O2 Sat by Pulse 99 100 100 Oximetry 08/24/17 08/24/17 08/24/17 09:05 09:11 09:15 Temperature Pulse Rate 97 H 102 H 97 H Pulse Rate [ From Monitor] Respiratory 12 12 12 Rate Blood Pressure 120/67 121/70 124/65 O2 Sat by Pulse 100 100 99 Oximetry 08/24/17 08/24/17 08/24/17 09:21 09:25 09:30 Temperature Pulse Rate 107 H 91 H 97 H Pulse Rate [ From Monitor] Respiratory 12 11 L 17 Rate Blood Pressure 146/81 147/80 154/66 O2 Sat by Pulse 99 100 96 Oximetry 08/24/17 08/24/17 08/24/17 09:35 09:41 09:45 Temperature Pulse Rate 99 H 100 H 101 H Pulse Rate [ From Monitor] Respiratory 18 24 22 Rate Blood Pressure 154/76 140/70 142/71 O2 Sat by Pulse 94 93 93 Oximetry 08/24/17 08/24/17 09:51 09:55 Temperature Pulse Rate 97 H 116 H Pulse Rate [ From Monitor] Respiratory 21 25 H Rate Blood Pressure 135/64 156/69 O2 Sat by Pulse 93 91 Oximetry - General Appearance General appearance: well-developed, well-nourished, appears stated age EENT: ATNC, PERRL, mucous membranes moist Neck: no JVD Respiratory: Present: Decreased Breath Sounds Cardiology: regular, S1S2 Gastrointestinal: normoactive bowel sounds Integumentary: no rash, other (no edema ) Neurologic: other (on vent ) - Lab 08/24/17 06:20 08/24/17 06:20 Most recent lab results Calcium 8.5 mg/dL (8.4-10.2) 08/24/17 06:20 Phosphorus 2.60 mg/dL (2.5-4.5) 08/24/17 06:20 Magnesium 2.10 mg/dL (1.7-2.3) 08/24/17 06:20
--- NOTE | 2017-08-24 10:58 | Progress Note ---
Assessment and Plan intubated, awake, s/p PEG and trache today mental status improved, follows commands, BP stable, on his hypertensive meds urine output good, renal function back to normal no HD needed per renal - remove VasCath abdomen is not distended, BS+, will resume feeds via PEG when ok by gen surgery WBC elevated, cultures negative, on antibiotics per ID for presumed VAP vent management as per ICU team patient has no barrientos and urinating on his incisions - barrientos placement and keeping in is very important, until able to urinate on his own d/t high risk skin maceration and incision dehiscence. patient has a higher chance of getting off the vent with his trache in place. LTAC placement Subjective Date of service: 08/24/17 Principal diagnosis: Acute Hypoxemic Respiratory Failure; Hemorrhagic Shock; WILLIAM on Dilaysis;PVD Interval history: patient is s/p trache and PEG today, remains on vent for now, mental status is improving, opening eye to commands. Objective - Exam Narrative Exam: feet warm with good perfusion. Groin incisions healing well abdomen soft, not distended, BS+ decreased scrotal edema, renal function improved incision c/d/i - Constitutional Vitals: Vital Signs - 12hr 08/23/17 08/23/17 08/23/17 23:00 23:20 23:26 Temperature 98.6 F Pulse Rate 99 H 91 H Pulse Rate [ From Monitor] Respiratory 25 H Rate Blood Pressure 161/79 161/79 O2 Sat by Pulse 98 Oximetry 08/23/17 08/24/17 08/24/17 23:31 00:00 00:30 Temperature Pulse Rate 93 H 95 H 87 Pulse Rate [ 89 From Monitor] Respiratory 22 21 22 Rate Blood Pressure 123/56 121/73 130/63 O2 Sat by Pulse 97 Oximetry 08/24/17 08/24/17 08/24/17 01:00 01:30 02:00 Temperature Pulse Rate 82 84 80 Pulse Rate [ From Monitor] Respiratory 21 22 24 Rate Blood Pressure 119/61 132/66 134/68 O2 Sat by Pulse Oximetry 08/24/17 08/24/17 08/24/17 02:30 03:00 03:18 Temperature Pulse Rate 84 87 95 H Pulse Rate [ From Monitor] Respiratory 24 22 Rate Blood Pressure 125/63 134/72 134/72 O2 Sat by Pulse 97 Oximetry 08/24/17 08/24/17 08/24/17 03:31 03:42 04:00 Temperature 98.7 F Pulse Rate 87 Pulse Rate [ 86 From Monitor] Respiratory 23 18 Rate Blood Pressure 141/68 O2 Sat by Pulse 98 Oximetry 08/24/17 08/24/17 08/24/17 04:01 04:30 05:01 Temperature Pulse Rate 98 H 86 87 Pulse Rate [ From Monitor] Respiratory 23 13 22 Rate Blood Pressure 152/77 152/77 188/77 O2 Sat by Pulse Oximetry 08/24/17 08/24/17 08/24/17 05:31 06:01 06:31 Temperature Pulse Rate 85 101 H 96 H Pulse Rate [ From Monitor] Respiratory 17 23 21 Rate Blood Pressure 168/78 183/90 178/78 O2 Sat by Pulse 96 95 Oximetry 08/24/17 08/24/17 08/24/17 07:01 07:30 07:50 Temperature 99.8 F H Pulse Rate 97 H 90 109 H Pulse Rate [ From Monitor] Respiratory 22 22 24 Rate Blood Pressure 194/96 162/77 169/75 O2 Sat by Pulse 96 96 100 Oximetry 08/24/17 08/24/17 08/24/17 08:00 08:01 08:10 Temperature Pulse Rate 102 H 109 H 102 H Pulse Rate [ 98 H From Monitor] Respiratory 19 24 18 Rate Blood Pressure 162/77 169/75 161/80 O2 Sat by Pulse 96 100 100 Oximetry 08/24/17 08/24/17 08/24/17 08:15 08:21 08:25 Temperature Pulse Rate 107 H 123 H 112 H Pulse Rate [ From Monitor] Respiratory 22 11 L 12 Rate Blood Pressure 167/70 160/82 153/76 O2 Sat by Pulse 100 100 100 Oximetry 08/24/17 08/24/17 08/24/17 08:31 08:35 08:40 Temperature Pulse Rate 115 H 105 H 107 H Pulse Rate [ From Monitor] Respiratory 14 12 10 L Rate Blood Pressure 128/66 129/79 182/87 O2 Sat by Pulse 100 98 96 Oximetry 08/24/17 08/24/17 08/24/17 08:45 08:51 08:55 Temperature Pulse Rate 104 H 97 H 100 H Pulse Rate [ From Monitor] Respiratory 11 L 14 12 Rate Blood Pressure 179/75 98/50 98/55 O2 Sat by Pulse 99 99 100 Oximetry 08/24/17 08/24/17 08/24/17 09:00 09:05 09:11 Temperature Pulse Rate 99 H 97 H 102 H Pulse Rate [ From Monitor] Respiratory 13 12 12 Rate Blood Pressure 112/58 120/67 121/70 O2 Sat by Pulse 100 100 100 Oximetry 08/24/17 08/24/17 08/24/17 09:15 09:21 09:25 Temperature Pulse Rate 97 H 107 H 91 H Pulse Rate [ From Monitor] Respiratory 12 12 11 L Rate Blood Pressure 124/65 146/81 147/80 O2 Sat by Pulse 99 99 100 Oximetry 08/24/17 08/24/17 08/24/17 09:30 09:35 09:41 Temperature Pulse Rate 97 H 99 H 100 H Pulse Rate [ From Monitor] Respiratory 17 18 24 Rate Blood Pressure 154/66 154/76 140/70 O2 Sat by Pulse 96 94 93 Oximetry 08/24/17 08/24/17 08/24/17 09:45 09:51 09:55 Temperature Pulse Rate 101 H 97 H 116 H Pulse Rate [ From Monitor] Respiratory 22 21 25 H Rate Blood Pressure 142/71 135/64 156/69 O2 Sat by Pulse 93 93 91 Oximetry - Labs CBC & Chem 7: 08/24/17 06:20 08/24/17 06:20 Labs: Abnormal lab results 08/23/17 08/23/17 08/23/17 Range/Units 11:07 15:40 17:13 WBC (4.5-11.0) K/mm3 RBC (3.65-5.03) M/mm3 Hgb (11.8-15.2) gm/dl Hct (35.5-45.6) % MCV (84-94) fl MCHC (32-34) % RDW (13.2-15.2) % POC ABG pO2 65 L (80-105) Sodium (137-145) mmol/L Chloride (98-107) mmol/L BUN (9-20) mg/dL Glucose (75-100) mg/dL POC Glucose 253 H 236 H (70-105) 08/24/17 08/24/17 08/24/17 Range/Units 00:13 06:20 06:20 WBC 15.3 H (4.5-11.0) K/mm3 RBC 2.87 L (3.65-5.03) M/mm3 Hgb 8.6 L (11.8-15.2) gm/dl Hct 27.5 L (35.5-45.6) % MCV 96 H (84-94) fl MCHC 31 L (32-34) % RDW 17.6 H (13.2-15.2) % POC ABG pO2 (80-105) Sodium 156 H (137-145) mmol/L Chloride 118.7 H (98-107) mmol/L BUN 60 H (9-20) mg/dL Glucose 163 H (75-100) mg/dL POC Glucose 170 H (70-105)
--- NOTE | 2017-08-24 11:07 | Progress Note ---
Assessment and Plan Acute Hypoxic Respiratory failure Vasogenic Shock, Presumed Bleed WILLIAM Secondary to vasomotor nephropathy Severe Metabolic Acidosis Acute blood loss anemia PVD s/p right femoral end-arterectomy Acute encephalopathy s/p Massive blood transfusion Leukocytosis - get INR re: reported bleeding with IV sticks per RN (No major bleeding from procedures today though) - resume daily SAT's and SBT's in am - resume enteral nutrition once PEG cleared by surgery team - continue supplemental oxygen and wean to keep sats > 90% - continue to address VAP bundle daily - continue antibiotics and de-escalate per ID recs - remains off vasopressors - continue HD/UF per nephrology prescription for volume and toxin clearance (on hold as now making urine)(pull Vas-cath once OK) - massive transfusion protocol followed; received FFP's and platelets - hold all anticoagulation till H&H stabilizes - continue SCD's - continue agitation and analgesia management while avoiding benzodiazepines - Avoiding\ nephrotoxic agents - surgery wants barrientos back in re: leakage over prior surgical incision sites - Azotemia per nephrology team otherwise - case discussed at length in team rounds and care plan formulated - Prognosis remains guarded overall although much improved, with risk of decompensation from a hemodynamic standpoint and even . - continue other care per attending / other consultants .... re-evaluate in am & prn ...30' CCT Subjective Date of service: 08/24/17 Principal diagnosis: Acute Hypoxemic Respiratory Failure; Hemorrhagic Shock; WILLIAM on Dilaysis;PVD Interval history: Patient is seen today for: Acute Hypoxemic Respiratory Failure; Hemorrhagic Shock; WILLIAM on Dilaysis;PVD Seen and examined at bedside; 24 hour events reviewed; nursing and respiratory care staff consulted; remains on MVS; on PSV /6 and tolerating decently; ETT day # 13-14; now s/p uneventful trach and PEG; denies any pain issues; NO N/V/F/ C; still with mild delirium / dementia. Also blood sugars running high Objective Vital Signs - 12hr 08/23/17 08/23/17 08/23/17 23:20 23:26 23:31 Temperature 98.6 F Pulse Rate 91 H 93 H Pulse Rate [ From Monitor] Respiratory 22 Rate Blood Pressure 161/79 123/56 O2 Sat by Pulse 98 Oximetry 08/24/17 08/24/17 08/24/17 00:00 00:30 01:00 Temperature Pulse Rate 95 H 87 82 Pulse Rate [ 89 From Monitor] Respiratory 21 22 21 Rate Blood Pressure 121/73 130/63 119/61 O2 Sat by Pulse 97 Oximetry 08/24/17 08/24/17 08/24/17 01:30 02:00 02:30 Temperature Pulse Rate 84 80 84 Pulse Rate [ From Monitor] Respiratory 22 24 24 Rate Blood Pressure 132/66 134/68 125/63 O2 Sat by Pulse Oximetry 08/24/17 08/24/17 08/24/17 03:00 03:18 03:31 Temperature Pulse Rate 87 95 H 87 Pulse Rate [ From Monitor] Respiratory 22 23 Rate Blood Pressure 134/72 134/72 141/68 O2 Sat by Pulse 97 Oximetry 08/24/17 08/24/17 08/24/17 03:42 04:00 04:01 Temperature 98.7 F Pulse Rate 98 H Pulse Rate [ 86 From Monitor] Respiratory 18 23 Rate Blood Pressure 152/77 O2 Sat by Pulse 98 Oximetry 08/24/17 08/24/17 08/24/17 04:30 05:01 05:31 Temperature Pulse Rate 86 87 85 Pulse Rate [ From Monitor] Respiratory 13 22 17 Rate Blood Pressure 152/77 188/77 168/78 O2 Sat by Pulse Oximetry 08/24/17 08/24/17 08/24/17 06:01 06:31 07:01 Temperature Pulse Rate 101 H 96 H 97 H Pulse Rate [ From Monitor] Respiratory 23 21 22 Rate Blood Pressure 183/90 178/78 194/96 O2 Sat by Pulse 96 95 96 Oximetry 08/24/17 08/24/17 08/24/17 07:30 07:50 08:00 Temperature 99.8 F H Pulse Rate 90 109 H 102 H Pulse Rate [ 98 H From Monitor] Respiratory 22 24 19 Rate Blood Pressure 162/77 169/75 162/77 O2 Sat by Pulse 96 100 96 Oximetry 08/24/17 08/24/17 08/24/17 08:01 08:10 08:15 Temperature Pulse Rate 109 H 102 H 107 H Pulse Rate [ From Monitor] Respiratory 24 18 22 Rate Blood Pressure 169/75 161/80 167/70 O2 Sat by Pulse 100 100 100 Oximetry 08/24/17 08/24/17 08/24/17 08:21 08:25 08:31 Temperature Pulse Rate 123 H 112 H 115 H Pulse Rate [ From Monitor] Respiratory 11 L 12 14 Rate Blood Pressure 160/82 153/76 128/66 O2 Sat by Pulse 100 100 100 Oximetry 08/24/17 08/24/17 08/24/17 08:35 08:40 08:45 Temperature Pulse Rate 105 H 107 H 104 H Pulse Rate [ From Monitor] Respiratory 12 10 L 11 L Rate Blood Pressure 129/79 182/87 179/75 O2 Sat by Pulse 98 96 99 Oximetry 08/24/17 08/24/17 08/24/17 08:51 08:55 09:00 Temperature Pulse Rate 97 H 100 H 99 H Pulse Rate [ From Monitor] Respiratory 14 12 13 Rate Blood Pressure 98/50 98/55 112/58 O2 Sat by Pulse 99 100 100 Oximetry 08/24/17 08/24/17 08/24/17 09:05 09:11 09:15 Temperature Pulse Rate 97 H 102 H 97 H Pulse Rate [ From Monitor] Respiratory 12 12 12 Rate Blood Pressure 120/67 121/70 124/65 O2 Sat by Pulse 100 100 99 Oximetry 08/24/17 08/24/17 08/24/17 09:21 09:25 09:30 Temperature Pulse Rate 107 H 91 H 97 H Pulse Rate [ From Monitor] Respiratory 12 11 L 17 Rate Blood Pressure 146/81 147/80 154/66 O2 Sat by Pulse 99 100 96 Oximetry 08/24/17 08/24/17 08/24/17 09:35 09:41 09:45 Temperature Pulse Rate 99 H 100 H 101 H Pulse Rate [ From Monitor] Respiratory 18 24 22 Rate Blood Pressure 154/76 140/70 142/71 O2 Sat by Pulse 94 93 93 Oximetry 08/24/17 08/24/17 09:51 09:55 Temperature Pulse Rate 97 H 116 H Pulse Rate [ From Monitor] Respiratory 21 25 H Rate Blood Pressure 135/64 156/69 O2 Sat by Pulse 93 91 Oximetry Constitutional: no acute distress, alert, other (obese) Eyes: non-icteric ENT: oropharynx moist, oropharyngeal exudate pre, other (s/p tracheostomy) Neck: supple, no lymphadenopathy, no JVD, other (RIJ VasCath) Effort: mildly labored Ascultation: Bilateral: diminished breath sounds, rales (scant) Percussion: Bilateral: not dull Cardiovascular: regular rate and rhythm, other (No R/M) Gastrointestinal: normoactive bowel sounds, soft, non-tender, non-distended, other (s/p PEG; no palpable HSM) Integumentary: other (post-op scars) Extremities: no cyanosis, pink and warm, no ischemia or petechiae, edema (2+) Neurologic: non-focal exam (grossly), pupils equal and round, CN II-XII normal Psychiatric: other (unable to assess) CBC and BMP: 08/24/17 06:20 08/24/17 06:20 ABG, PT/INR, D-dimer: ABG POC ABG pH 7.401 (7.35-7.45) 08/23/17 15:40 POC ABG pCO2 41.1 (35-45) 08/23/17 15:40 POC ABG pO2 65 (80-105) L 08/23/17 15:40 POC ABG HCO3 25.5 08/23/17 15:40 POC ABG Total CO2 27 08/23/17 15:40 POC ABG O2 Sat 92 08/23/17 15:40 PT/INR, D-dimer PT 15.7 Sec. (12.2-14.9) H 08/14/17 05:00 INR 1.18 (0.87-1.13) H 08/14/17 05:00 D-Dimer 950.64 ng/mlDDU (0-234) H 08/14/17 05:00 Abnormal lab findings: Abnormal Labs 08/10/17 08/10/17 08/10/17 10:05 10:05 10:05 WBC RBC Hgb POC Hgb Hct POC Hct MCV 97 H MCH 33 H MCHC RDW Plt Count Lymph % (Auto) [place] % (Auto) Lymph # Bladen # Seg Neutrophils % 72.9 H Seg Neutrophils # PT 11.6 L INR 0.81 L APTT Activated Clotting Time D-Dimer Heparin Anti-Xa Level POC ABG pH POC ABG pCO2 POC ABG pO2 Sodium Potassium Chloride Carbon Dioxide BUN Creatinine 0.7 L Glucose 196 H POC Glucose Lactic Acid Calcium Total Bilirubin AST ALT C-Reactive Protein Total Protein Albumin Ur Specific [place] Urine WBC (Auto) Crossmatch 08/11/17 08/11/17 08/11/17 06:50 07:03 09:50 WBC RBC Hgb POC Hgb Hct POC Hct MCV MCH MCHC RDW Plt Count Lymph % (Auto) [place] % (Auto) Lymph # Bladen # Seg Neutrophils % Seg Neutrophils # PT INR APTT Activated Clotting Time D-Dimer Heparin Anti-Xa Level POC ABG pH 7.270 L POC ABG pCO2 49.1 H POC ABG pO2 117 H Sodium Potassium Chloride Carbon Dioxide BUN Creatinine Glucose POC Glucose 160 H Lactic Acid Calcium Total Bilirubin AST ALT C-Reactive Protein Total Protein Albumin Ur Specific [place] Urine WBC (Auto) Crossmatch See Detail 08/11/17 08/11/17 08/11/17 10:52 11:12 12:16 WBC RBC Hgb POC Hgb Hct POC Hct MCV MCH MCHC RDW Plt Count Lymph % (Auto) [place] % (Auto) Lymph # Bl[place] # Seg Neutrophils % Seg Neutrophils # PT INR APTT Activated Clotting Time 191 H 153 H D-Dimer Heparin Anti-Xa Level POC ABG pH POC ABG pCO2 POC ABG pO2 Sodium Potassium Chloride Carbon Dioxide BUN Creatinine Glucose POC Glucose 176 H Lactic Acid Calcium Total Bilirubin AST ALT C-Reactive Protein Total Protein Albumin Ur Specific [place] Urine WBC (Auto) Crossmatch 08/11/17 08/11/17 08/11/17 12:27 13:07 14:39 WBC RBC Hgb POC Hgb 9.9 L 8.5 L Hct POC Hct 29 L 25 L MCV MCH MCHC RDW Plt Count Lymph % (Auto) [place] % (Auto) Lymph # Bladen # Seg Neutrophils % Seg Neutrophils # PT INR APTT Activated Clotting Time 186 H D-Dimer Heparin Anti-Xa Level POC ABG pH POC ABG pCO2 POC ABG pO2 Sodium Potassium Chloride Carbon Dioxide BUN Creatinine Glucose POC Glucose 183 H 197 H Lactic Acid Calcium Total Bilirubin AST ALT C-Reactive Protein Total Protein Albumin Ur Specific [place] Urine WBC (Auto) Crossmatch 08/11/17 08/11/17 08/11/17 14:46 16:18 17:57 WBC 12.7 H RBC 3.00 L Hgb 9.5 L D POC Hgb Hct 28.3 L D POC Hct MCV MCH MCHC RDW 16.3 H Plt Count 105 L Lymph % (Auto) 6.7 L [place] % (Auto) Lymph # 0.8 L [place] # Seg Neutrophils % 86.3 H Seg Neutrophils # 10.9 H PT INR APTT Activated Clotting Time 164 H D-Dimer Heparin Anti-Xa Level POC ABG pH POC ABG pCO2 POC ABG pO2 Sodium Potassium Chloride Carbon Dioxide BUN Creatinine Glucose POC Glucose 192 H Lactic Acid Calcium Total Bilirubin AST ALT C-Reactive Protein Total Protein Albumin Ur Specific [place] Urine WBC (Auto) Crossmatch 08/11/17 08/11/17 08/11/17 17:57 20:00 20:00 WBC RBC Hgb 10.2 L POC Hgb Hct 31.1 L POC Hct MCV MCH MCHC RDW Plt Count 117 L Lymph % (Auto) [place] % (Auto) Lymph # [place] # Seg Neutrophils % Seg Neutrophils # PT 15.3 H INR 1.15 H APTT 97.7 H* Activated Clotting Time D-Dimer Heparin Anti-Xa Level POC ABG pH POC ABG pCO2 POC ABG pO2 Sodium Potassium Chloride 117.4 H Carbon Dioxide 18 L BUN Creatinine 0.7 L Glucose 143 H POC Glucose Lactic Acid Calcium 6.4 L D Total Bilirubin AST ALT C-Reactive Protein Total Protein Albumin Ur Specific [place] Urine WBC (Auto) Crossmatch 08/12/17 08/12/17 08/12/17 03:30 03:50 03:50 WBC RBC Hgb 9.2 L 9.1 L POC Hgb Hct 27.5 L 27.2 L POC Hct MCV MCH MCHC RDW Plt Count Lymph % (Auto) [place] % (Auto) Lymph # Bladen # Seg Neutrophils % Seg Neutrophils # PT INR APTT Activated Clotting Time D-Dimer Heparin Anti-Xa Level POC ABG pH POC ABG pCO2 POC ABG pO2 Sodium Potassium Chloride 113.5 H Carbon Dioxide 13 L BUN Creatinine Glucose 243 H POC Glucose Lactic Acid Calcium 6.3 L Total Bilirubin AST ALT C-Reactive Protein Total Protein Albumin Ur Specific [place] Urine WBC (Auto) Crossmatch 08/12/17 08/12/17 08/12/17 07:36 08:48 16:16 WBC RBC Hgb POC Hgb Hct POC Hct MCV MCH MCHC RDW Plt Count Lymph % (Auto) [place] % (Auto) Lymph # Bladen # Seg Neutrophils % Seg Neutrophils # PT INR APTT Activated Clotting Time D-Dimer Heparin Anti-Xa Level POC ABG pH 6.952 L 7.159 L POC ABG pCO2 49.1 H 47.8 H POC ABG pO2 76 L 106 H Sodium Potassium Chloride Carbon Dioxide BUN Creatinine Glucose POC Glucose 246 H Lactic Acid Calcium Total Bilirubin AST ALT C-Reactive Protein Total Protein Albumin Ur Specific [place] Urine WBC (Auto) Crossmatch 08/12/17 08/12/17 08/12/17 17:54 18:30 20:15 WBC 17.9 H RBC 3.29 L Hgb 10.0 L POC Hgb Hct 29.3 L POC Hct MCV MCH MCHC RDW 15.5 H Plt Count 76 L Lymph % (Auto) [place] % (Auto) Lymph # Bladen # Seg Neutrophils % Seg Neutrophils # PT INR APTT Activated Clotting Time D-Dimer Heparin Anti-Xa Level POC ABG pH POC ABG pCO2 POC ABG pO2 Sodium Potassium Chloride Carbon Dioxide BUN Creatinine Glucose POC Glucose 240 H Lactic Acid Calcium Total Bilirubin AST ALT C-Reactive Protein Total Protein Albumin Ur Specific [place] 1.051 H Urine WBC (Auto) > 182.0 H Crossmatch 08/12/17 08/12/17 08/13/17 21:50 21:50 03:20 WBC RBC Hgb POC Hgb Hct POC Hct MCV MCH MCHC RDW Plt Count Lymph % (Auto) [place] % (Auto) Lymph # [place] # Seg Neutrophils % Seg Neutrophils # PT INR APTT Activated Clotting Time D-Dimer Heparin Anti-Xa Level < 0.10 L POC ABG pH POC ABG pCO2 POC ABG pO2 Sodium Potassium 5.4 H Chloride 110.8 H Carbon Dioxide 18 L BUN 30 H Creatinine 2.5 H D Glucose 216 H POC Glucose 235 H Lactic Acid Calcium 5.7 L* Total Bilirubin AST ALT C-Reactive Protein Total Protein Albumin Ur Specific [place] Urine WBC (Auto) Crossmatch 08/13/17 08/13/17 08/13/17 05:46 05:46 06:06 WBC 14.6 H RBC 2.49 L Hgb 7.6 L POC Hgb Hct 22.3 L D POC Hct MCV MCH MCHC RDW 15.7 H Plt Count 78 L Lymph % (Auto) 10.3 L [place] % (Auto) Lymph # [place] # Seg Neutrophils % 84.1 H Seg Neutrophils # 12.3 H PT INR APTT Activated Clotting Time D-Dimer Heparin Anti-Xa Level POC ABG pH 7.282 L POC ABG pCO2 POC ABG pO2 Sodium Potassium Chloride 107.5 H Carbon Dioxide 19 L BUN 35 H Creatinine 2.9 H Glucose 242 H POC Glucose Lactic Acid Calcium 6.3 L Total Bilirubin AST 1304 H ALT 533 H C-Reactive Protein Total Protein 4.4 L Albumin 2.8 L Ur Specific [place] Urine WBC (Auto) Crossmatch 08/13/17 08/13/17 08/13/17 07:10 07:10 09:00 WBC RBC Hgb POC Hgb Hct POC Hct MCV MCH MCHC RDW Plt Count Lymph % (Auto) [place] % (Auto) Lymph # [place] # Seg Neutrophils % Seg Neutrophils # PT 17.4 H INR 1.35 H APTT Activated Clotting Time D-Dimer 598.44 H Heparin Anti-Xa Level POC ABG pH POC ABG pCO2 POC ABG pO2 Sodium Potassium Chloride 107.2 H Carbon Dioxide 19 L BUN 35 H Creatinine 2.8 H Glucose 240 H POC Glucose Lactic Acid 3.10 H* Calcium 6.2 L Total Bilirubin AST ALT C-Reactive Protein Total Protein Albumin Ur Specific [place] Urine WBC (Auto) Crossmatch 08/13/17 08/13/17 08/13/17 17:55 18:31 21:19 WBC RBC Hgb POC Hgb Hct POC Hct MCV MCH MCHC RDW Plt Count Lymph % (Auto) [place] % (Auto) Lymph # Bl[place] # Seg Neutrophils % Seg Neutrophils # PT INR APTT Activated Clotting Time D-Dimer Heparin Anti-Xa Level POC ABG pH 7.451 H POC ABG pCO2 33.0 L POC ABG pO2 53 L Sodium Potassium Chloride Carbon Dioxide BUN Creatinine Glucose POC Glucose 247 H Lactic Acid 2.20 H* Calcium Total Bilirubin AST ALT C-Reactive Protein Total Protein Albumin Ur Specific [place] Urine WBC (Auto) Crossmatch 08/13/17 08/14/17 08/14/17 23:34 00:10 05:00 WBC RBC Hgb POC Hgb Hct POC Hct MCV MCH MCHC RDW Plt Count Lymph % (Auto) [place] % (Auto) Lymph # [place] # Seg Neutrophils % Seg Neutrophils # PT 15.7 H INR 1.18 H APTT Activated Clotting Time D-Dimer 950.64 H Heparin Anti-Xa Level POC ABG pH POC ABG pCO2 POC ABG pO2 Sodium Potassium Chloride Carbon Dioxide BUN Creatinine Glucose POC Glucose 237 H Lactic Acid 2.70 H* Calcium Total Bilirubin AST ALT C-Reactive Protein Total Protein Albumin Ur Specific [place] Urine WBC (Auto) Crossmatch 08/14/17 08/14/17 08/14/17 05:00 05:11 10:26 WBC 14.2 H RBC 2.66 L Hgb 7.9 L POC Hgb Hct 23.2 L POC Hct MCV MCH MCHC RDW 16.0 H Plt Count 75 L Lymph % (Auto) [place] % (Auto) Lymph # Bladen # Seg Neutrophils % Seg Neutrophils # PT INR APTT Activated Clotting Time D-Dimer Heparin Anti-Xa Level POC ABG pH POC ABG pCO2 POC ABG pO2 78 L Sodium Potassium Chloride Carbon Dioxide BUN Creatinine Glucose POC Glucose 227 H Lactic Acid Calcium Total Bilirubin AST ALT C-Reactive Protein Total Protein Albumin Ur Specific [place] Urine WBC (Auto) Crossmatch 08/14/17 08/14/17 08/14/17 11:28 11:28 12:06 WBC RBC Hgb POC Hgb Hct POC Hct MCV MCH MCHC RDW Plt Count Lymph % (Auto) [place] % (Auto) Lymph # Bl[place] # Seg Neutrophils % Seg Neutrophils # PT INR APTT Activated Clotting Time D-Dimer Heparin Anti-Xa Level POC ABG pH POC ABG pCO2 POC ABG pO2 Sodium Potassium Chloride Carbon Dioxide BUN 43 H Creatinine 3.6 H Glucose 209 H POC Glucose 219 H Lactic Acid Calcium 7.6 L D Total Bilirubin AST ALT C-Reactive Protein 29.00 H Total Protein Albumin Ur Specific [place] Urine WBC (Auto) Crossmatch 08/14/17 08/14/17 08/14/17 17:57 19:54 23:23 WBC RBC Hgb POC Hgb Hct POC Hct MCV MCH MCHC RDW Plt Count Lymph % (Auto) [place] % (Auto) Lymph # Bladen # Seg Neutrophils % Seg Neutrophils # PT INR APTT Activated Clotting Time D-Dimer Heparin Anti-Xa Level POC ABG pH POC ABG pCO2 46.5 H POC ABG pO2 64 L Sodium Potassium Chloride Carbon Dioxide BUN Creatinine Glucose POC Glucose 178 H 170 H Lactic Acid Calcium Total Bilirubin AST ALT C-Reactive Protein Total Protein Albumin Ur Specific [place] Urine WBC (Auto) Crossmatch 08/15/17 08/15/17 08/15/17 03:44 04:40 05:19 WBC 12.6 H RBC 2.49 L Hgb 7.4 L POC Hgb Hct 22.1 L POC Hct MCV MCH MCHC RDW 16.5 H Plt Count 64 L Lymph % (Auto) [place] % (Auto) Lymph # Bladen # Seg Neutrophils % Seg Neutrophils # PT INR APTT Activated Clotting Time D-Dimer Heparin Anti-Xa Level POC ABG pH POC ABG pCO2 48.1 H POC ABG pO2 68 L Sodium Potassium Chloride Carbon Dioxide BUN Creatinine Glucose POC Glucose 154 H Lactic Acid Calcium Total Bilirubin AST ALT C-Reactive Protein Total Protein Albumin Ur Specific [place] Urine WBC (Auto) Crossmatch 08/15/17 08/15/17 08/15/17 12:20 13:22 18:05 WBC RBC Hgb POC Hgb Hct POC Hct MCV MCH MCHC RDW Plt Count Lymph % (Auto) [place] % (Auto) Lymph # Bladen # Seg Neutrophils % Seg Neutrophils # PT INR APTT Activated Clotting Time D-Dimer Heparin Anti-Xa Level POC ABG pH POC ABG pCO2 POC ABG pO2 Sodium Potassium Chloride Carbon Dioxide BUN 45 H Creatinine 4.1 H Glucose 141 H POC Glucose 147 H 170 H Lactic Acid Calcium 7.8 L Total Bilirubin AST ALT C-Reactive Protein Total Protein Albumin Ur Specific [place] Urine WBC (Auto) Crossmatch 08/15/17 08/16/17 08/16/17 23:43 04:42 05:22 WBC 14.2 H RBC 2.54 L Hgb 7.5 L POC Hgb Hct 22.6 L POC Hct MCV MCH MCHC RDW 16.4 H Plt Count 73 L Lymph % (Auto) 6.6 L [place] % (Auto) 10.1 H Lymph # 0.9 L Bladen # 1.4 H Seg Neutrophils % 83.1 H Seg Neutrophils # 11.8 H PT INR APTT Activated Clotting Time D-Dimer Heparin Anti-Xa Level POC ABG pH POC ABG pCO2 POC ABG pO2 71 L Sodium Potassium Chloride Carbon Dioxide BUN Creatinine Glucose POC Glucose 155 H Lactic Acid Calcium Total Bilirubin AST ALT C-Reactive Protein Total Protein Albumin Ur Specific [place] Urine WBC (Auto) Crossmatch 08/16/17 08/16/17 08/16/17 06:20 08:49 11:54 WBC RBC Hgb POC Hgb Hct POC Hct MCV MCH MCHC RDW Plt Count Lymph % (Auto) [place] % (Auto) Lymph # Bladen # Seg Neutrophils % Seg Neutrophils # PT INR APTT Activated Clotting Time D-Dimer Heparin Anti-Xa Level POC ABG pH POC ABG pCO2 POC ABG pO2 Sodium Potassium Chloride Carbon Dioxide BUN Creatinine Glucose POC Glucose 165 H 191 H 188 H Lactic Acid Calcium Total Bilirubin AST ALT C-Reactive Protein Total Protein Albumin Ur Specific [place] Urine WBC (Auto) Crossmatch 08/16/17 08/16/17 08/16/17 13:00 18:32 23:33 WBC RBC Hgb POC Hgb Hct POC Hct MCV MCH MCHC RDW Plt Count Lymph % (Auto) [place] % (Auto) Lymph # Bladen # Seg Neutrophils % Seg Neutrophils # PT INR APTT Activated Clotting Time D-Dimer Heparin Anti-Xa Level POC ABG pH POC ABG pCO2 POC ABG pO2 Sodium Potassium Chloride Carbon Dioxide BUN 47 H Creatinine 3.4 H Glucose 179 H POC Glucose 219 H 179 H Lactic Acid Calcium 8.2 L Total Bilirubin AST ALT C-Reactive Protein Total Protein Albumin Ur Specific [place] Urine WBC (Auto) Crossmatch 08/17/17 08/17/17 08/17/17 04:25 04:30 05:32 WBC 15.2 H RBC 2.60 L Hgb 7.6 L POC Hgb Hct 23.8 L POC Hct MCV MCH MCHC RDW 16.3 H Plt Count 92 L Lymph % (Auto) [place] % (Auto) Lymph # Bladen # Seg Neutrophils % Seg Neutrophils # PT INR APTT Activated Clotting Time D-Dimer Heparin Anti-Xa Level POC ABG pH POC ABG pCO2 POC ABG pO2 57 L Sodium Potassium Chloride Carbon Dioxide BUN 63 H Creatinine 3.4 H Glucose 155 H POC Glucose Lactic Acid Calcium 8.3 L Total Bilirubin 1.40 H AST 99 H ALT 93 H C-Reactive Protein Total Protein 5.6 L D Albumin 3.1 L Ur Specific [place] Urine WBC (Auto) Crossmatch 08/17/17 08/17/17 08/17/17 06:36 12:37 17:44 WBC RBC Hgb POC Hgb Hct POC Hct MCV MCH MCHC RDW Plt Count Lymph % (Auto) [place] % (Auto) Lymph # Bladen # Seg Neutrophils % Seg Neutrophils # PT INR APTT Activated Clotting Time D-Dimer Heparin Anti-Xa Level POC ABG pH POC ABG pCO2 POC ABG pO2 Sodium Potassium Chloride Carbon Dioxide BUN Creatinine Glucose POC Glucose 167 H 203 H 158 H Lactic Acid Calcium Total Bilirubin AST ALT C-Reactive Protein Total Protein Albumin Ur Specific [place] Urine WBC (Auto) Crossmatch 08/17/17 08/18/17 08/18/17 23:55 04:30 05:57 WBC RBC 2.40 L Hgb 7.3 L POC Hgb Hct 21.8 L POC Hct MCV MCH MCHC RDW 16.3 H Plt Count 95 L Lymph % (Auto) [place] % (Auto) Lymph # Bladen # Seg Neutrophils % Seg Neutrophils # PT INR APTT Activated Clotting Time D-Dimer Heparin Anti-Xa Level POC ABG pH POC ABG pCO2 POC ABG pO2 Sodium Potassium Chloride Carbon Dioxide BUN Creatinine Glucose POC Glucose 146 H 179 H Lactic Acid Calcium Total Bilirubin AST ALT C-Reactive Protein Total Protein Albumin Ur Specific [place] Urine WBC (Auto) Crossmatch 08/18/17 08/18/17 08/18/17 08:20 08:20 08:32 WBC RBC Hgb POC Hgb Hct POC Hct MCV MCH MCHC RDW Plt Count Lymph % (Auto) [place] % (Auto) Lymph # Bladen # Seg Neutrophils % Seg Neutrophils # PT INR APTT Activated Clotting Time D-Dimer Heparin Anti-Xa Level POC ABG pH POC ABG pCO2 POC ABG pO2 Sodium 146 H Potassium Chloride 108.4 H Carbon Dioxide BUN 62 H Creatinine 2.4 H Glucose 125 H POC Glucose 161 H Lactic Acid Calcium Total Bilirubin AST ALT C-Reactive Protein 13.90 H Total Protein Albumin Ur Specific [place] Urine WBC (Auto) Crossmatch 08/18/17 08/18/17 08/18/17 11:33 17:18 23:31 WBC RBC Hgb POC Hgb Hct POC Hct MCV MCH MCHC RDW Plt Count Lymph % (Auto) [place] % (Auto) Lymph # Bladen # Seg Neutrophils % Seg Neutrophils # PT INR APTT Activated Clotting Time D-Dimer Heparin Anti-Xa Level POC ABG pH POC ABG pCO2 POC ABG pO2 Sodium Potassium Chloride Carbon Dioxide BUN Creatinine Glucose POC Glucose 165 H 126 H 166 H Lactic Acid Calcium Total Bilirubin AST ALT C-Reactive Protein Total Protein Albumin Ur Specific [place] Urine WBC (Auto) Crossmatch 08/19/17 08/19/17 08/19/17 04:33 05:00 05:44 WBC RBC 1.69 L Hgb 5.1 L* POC Hgb Hct 15.9 L* POC Hct MCV 95 H MCH MCHC RDW 17.1 H Plt Count 75 L Lymph % (Auto) [place] % (Auto) Lymph # Bladen # Seg Neutrophils % Seg Neutrophils # PT INR APTT Activated Clotting Time D-Dimer Heparin Anti-Xa Level POC ABG pH POC ABG pCO2 POC ABG pO2 65 L Sodium Potassium Chloride Carbon Dioxide BUN Creatinine Glucose POC Glucose 174 H Lactic Acid Calcium Total Bilirubin AST ALT C-Reactive Protein Total Protein Albumin Ur Specific [place] Urine WBC (Auto) Crossmatch 08/19/17 08/19/17 08/19/17 08:26 09:45 11:05 WBC RBC Hgb 8.8 L D POC Hgb Hct 26.7 L D POC Hct MCV MCH MCHC RDW Plt Count Lymph % (Auto) [place] % (Auto) Lymph # Bladen # Seg Neutrophils % Seg Neutrophils # PT INR APTT Activated Clotting Time D-Dimer Heparin Anti-Xa Level POC ABG pH POC ABG pCO2 POC ABG pO2 Sodium 151 H Potassium 3.3 L Chloride 112.5 H Carbon Dioxide BUN 65 H Creatinine 1.6 H Glucose 145 H POC Glucose Lactic Acid Calcium 7.9 L Total Bilirubin AST ALT C-Reactive Protein Total Protein Albumin Ur Specific [place] Urine WBC (Auto) Crossmatch See Detail 08/19/17 08/19/17 08/19/17 11:34 18:02 23:37 WBC RBC Hgb POC Hgb Hct POC Hct MCV MCH MCHC RDW Plt Count Lymph % (Auto) [place] % (Auto) Lymph # Bladen # Seg Neutrophils % Seg Neutrophils # PT INR APTT Activated Clotting Time D-Dimer Heparin Anti-Xa Level POC ABG pH POC ABG pCO2 POC ABG pO2 Sodium Potassium Chloride Carbon Dioxide BUN Creatinine Glucose POC Glucose 166 H 224 H 222 H Lactic Acid Calcium Total Bilirubin AST ALT C-Reactive Protein Total Protein Albumin Ur Specific [place] Urine WBC (Auto) Crossmatch 08/20/17 08/20/17 08/20/17 04:26 04:45 04:45 WBC 14.4 H RBC 2.97 L Hgb 8.9 L POC Hgb Hct 26.9 L POC Hct MCV MCH MCHC RDW 16.8 H Plt Count Lymph % (Auto) [place] % (Auto) Lymph # Bladen # Seg Neutrophils % Seg Neutrophils # PT INR APTT Activated Clotting Time D-Dimer Heparin Anti-Xa Level POC ABG pH 7.497 H POC ABG pCO2 33.4 L POC ABG pO2 68 L Sodium 153 H Potassium Chloride 112.8 H Carbon Dioxide BUN 71 H Creatinine 1.7 H Glucose 244 H POC Glucose Lactic Acid Calcium Total Bilirubin AST ALT C-Reactive Protein Total Protein Albumin Ur Specific [place] Urine WBC (Auto) Crossmatch 08/20/17 08/20/17 08/20/17 05:42 12:31 17:56 WBC RBC Hgb POC Hgb Hct POC Hct MCV MCH MCHC RDW Plt Count Lymph % (Auto) Bladen % (Auto) Lymph # Bladen # Seg Neutrophils % Seg Neutrophils # PT INR APTT Activated Clotting Time D-Dimer Heparin Anti-Xa Level POC ABG pH POC ABG pCO2 POC ABG pO2 Sodium Potassium Chloride Carbon Dioxide BUN Creatinine Glucose POC Glucose 224 H 274 H 267 H Lactic Acid Calcium Total Bilirubin AST ALT C-Reactive Protein Total Protein Albumin Ur Specific [place] Urine WBC (Auto) Crossmatch 08/20/17 08/20/17 08/21/17 22:25 23:52 04:15 WBC 13.3 H RBC 2.84 L Hgb 8.3 L POC Hgb Hct 26.8 L POC Hct MCV MCH MCHC 31 L RDW 17.8 H Plt Count Lymph % (Auto) Bladen % (Auto) Lymph # Bladen # Seg Neutrophils % Seg Neutrophils # PT INR APTT Activated Clotting Time D-Dimer Heparin Anti-Xa Level POC ABG pH POC ABG pCO2 POC ABG pO2 Sodium Potassium Chloride Carbon Dioxide BUN Creatinine Glucose POC Glucose 241 H Lactic Acid Calcium Total Bilirubin AST ALT C-Reactive Protein 22.10 H Total Protein Albumin Ur Specific [place] Urine WBC (Auto) Crossmatch 08/21/17 08/21/17 08/21/17 04:15 05:50 06:23 WBC RBC Hgb POC Hgb Hct POC Hct MCV MCH MCHC RDW Plt Count Lymph % (Auto) Bladen % (Auto) Lymph # Bladen # Seg Neutrophils % Seg Neutrophils # PT INR APTT Activated Clotting Time D-Dimer Heparin Anti-Xa Level POC ABG pH POC ABG pCO2 POC ABG pO2 74 L Sodium 158 H Potassium 3.2 L Chloride 118.8 H Carbon Dioxide BUN 74 H Creatinine 1.8 H Glucose 227 H POC Glucose 230 H Lactic Acid Calcium Total Bilirubin AST ALT C-Reactive Protein Total Protein Albumin Ur Specific [place] Urine WBC (Auto) Crossmatch 08/21/17 08/21/17 08/21/17 11:04 11:44 12:34 WBC RBC Hgb POC Hgb Hct POC Hct MCV MCH MCHC RDW Plt Count Lymph % (Auto) Bladen % (Auto) Lymph # Bladen # Seg Neutrophils % Seg Neutrophils # PT INR APTT Activated Clotting Time D-Dimer Heparin Anti-Xa Level POC ABG pH POC ABG pCO2 46.6 H POC ABG pO2 52 L Sodium Potassium Chloride Carbon Dioxide BUN Creatinine Glucose POC Glucose 327 H 285 H Lactic Acid Calcium Total Bilirubin AST ALT C-Reactive Protein Total Protein Albumin Ur Specific [place] Urine WBC (Auto) Crossmatch 08/21/17 08/22/17 08/22/17 18:08 00:28 06:20 WBC RBC Hgb POC Hgb Hct POC Hct MCV MCH MCHC RDW Plt Count Lymph % (Auto) Bladen % (Auto) Lymph # Bladen # Seg Neutrophils % Seg Neutrophils # PT INR APTT Activated Clotting Time D-Dimer Heparin Anti-Xa Level POC ABG pH POC ABG pCO2 POC ABG pO2 Sodium Potassium Chloride Carbon Dioxide BUN Creatinine Glucose POC Glucose 262 H 252 H 231 H Lactic Acid Calcium Total Bilirubin AST ALT C-Reactive Protein Total Protein Albumin Ur Specific [place] Urine WBC (Auto) Crossmatch 08/22/17 08/22/17 08/22/17 07:15 12:11 17:15 WBC RBC Hgb POC Hgb Hct POC Hct MCV MCH MCHC RDW Plt Count Lymph % (Auto) Bladen % (Auto) Lymph # Bladen # Seg Neutrophils % Seg Neutrophils # PT INR APTT Activated Clotting Time D-Dimer Heparin Anti-Xa Level POC ABG pH POC ABG pCO2 POC ABG pO2 Sodium 156 H Potassium 3.2 L Chloride 117.4 H Carbon Dioxide BUN 71 H Creatinine 1.6 H Glucose 217 H POC Glucose 246 H 227 H Lactic Acid Calcium 8.3 L Total Bilirubin AST ALT C-Reactive Protein Total Protein Albumin Ur Specific [place] Urine WBC (Auto) Crossmatch 08/22/17 08/23/17 08/23/17 19:47 00:13 06:20 WBC RBC Hgb POC Hgb Hct POC Hct MCV MCH MCHC RDW Plt Count Lymph % (Auto) Bladen % (Auto) Lymph # Bladen # Seg Neutrophils % Seg Neutrophils # PT INR APTT Activated Clotting Time D-Dimer Heparin Anti-Xa Level POC ABG pH POC ABG pCO2 POC ABG pO2 67 L Sodium 155 H Potassium Chloride 118.5 H Carbon Dioxide BUN 64 H Creatinine Glucose 202 H POC Glucose 225 H Lactic Acid Calcium 8.2 L Total Bilirubin 1.50 H AST ALT C-Reactive Protein Total Protein 4.9 L Albumin 2.5 L Ur Specific [place] Urine WBC (Auto) Crossmatch 08/23/17 08/23/17 08/23/17 06:20 11:07 15:40 WBC 13.8 H RBC 2.72 L Hgb 8.1 L POC Hgb Hct 25.7 L POC Hct MCV 95 H MCH MCHC RDW 17.8 H Plt Count Lymph % (Auto) Bladen % (Auto) Lymph # Bladen # Seg Neutrophils % Seg Neutrophils # PT INR APTT Activated Clotting Time D-Dimer Heparin Anti-Xa Level POC ABG pH POC ABG pCO2 POC ABG pO2 65 L Sodium Potassium Chloride Carbon Dioxide BUN Creatinine Glucose POC Glucose 253 H Lactic Acid Calcium Total Bilirubin AST ALT C-Reactive Protein Total Protein Albumin Ur Specific [place] Urine WBC (Auto) Crossmatch 08/23/17 08/24/17 08/24/17 17:13 00:13 06:20 WBC RBC Hgb POC Hgb Hct POC Hct MCV MCH MCHC RDW Plt Count Lymph % (Auto) Bladen % (Auto) Lymph # Bladen # Seg Neutrophils % Seg Neutrophils # PT INR APTT Activated Clotting Time D-Dimer Heparin Anti-Xa Level POC ABG pH POC ABG pCO2 POC ABG pO2 Sodium 156 H Potassium Chloride 118.7 H Carbon Dioxide BUN 60 H Creatinine Glucose 163 H POC Glucose 236 H 170 H Lactic Acid Calcium Total Bilirubin AST ALT C-Reactive Protein Total Protein Albumin Ur Specific [place] Urine WBC (Auto) Crossmatch 08/24/17 06:20 WBC 15.3 H RBC 2.87 L Hgb 8.6 L POC Hgb Hct 27.5 L POC Hct MCV 96 H MCH MCHC 31 L RDW 17.6 H Plt Count Lymph % (Auto) [place] % (Auto) Lymph # Bladen # Seg Neutrophils % Seg Neutrophils # PT INR APTT Activated Clotting Time D-Dimer Heparin Anti-Xa Level POC ABG pH POC ABG pCO2 POC ABG pO2 Sodium Potassium Chloride Carbon Dioxide BUN Creatinine Glucose POC Glucose Lactic Acid Calcium Total Bilirubin AST ALT C-Reactive Protein Total Protein Albumin Ur Specific [place] Urine WBC (Auto) Crossmatch Chest x-ray: image reviewed Allied health notes reviewed: nursing
--- NOTE | 2017-08-24 11:59 | XRay Report ---
AP CHEST: HISTORY: Status post tracheostomy placement The endotracheal tube has been replaced with a tracheostomy which appears in good position. Right IJ venous catheter and left arm PICC remain in good position. Mild cardiomegaly, mild pulmonary venous congestion and small right pleural effusion/atelectatic changes are identified. No overwhelming change since he exam 2 days ago. IMPRESSION: Tracheostomy placement. No evidence for pneumothorax. Mild volume overload.
--- NOTE | 2017-08-24 12:16 | Consultation ---
History of Present Illness - Reason for Consult Consult date: 08/24/17 - History of Present Illness Patient is 66 year old male with past medical history of hypertension, Type 2 DM , hyperlipidemia, CAD, PAD, who underwent elective vascular procedure for R [employer] , and is postop day 1 status post complex femoral endarterectomy and iliac artery stenting. Patient become hypotensive multiple fluid resuscitation and blood products. Also began to exhibit some altered mental status for which were consulted. On arrival the patient appears to be in moderate respiratory distress which saturation of 83 on 50% Ventimask. He is unable to provide much information. He does inform me that he drinks alcohol but not quantified. He denied any chest pain, nausea vomiting or diarrhea. Discussed with vascular team. trach/PEG today (08-24-17) family removed, unable to replace discussed with family nurse at bedside exam significant penoscrotal edema wire- 18F [place] tip barrientos placed (sandy urine) a/p BPH significant penoscrotal edema continue barrientos PLEASE RECONSULT UROLOGY BEFORE REMOVING BARRIENTOS Past History Past Medical History: CAD, COPD, diabetes, hypertension, hyperlipidemia Past Surgical History: Other (endarterectomy) Social history: smoking, alcohol abuse Family history: no significant family history Medications and Allergies Allergies Allergy/AdvReac Type Severity Reaction Status Date / Time Sulfa (Sulfonamide Allergy rash, Verified 08/05/17 10:59 Antibiotics) swelling Home Medications Medication Instructions Recorded Confirmed Last Taken Type Amlodipine Besylate [Norvasc] 10 mg PO DAILY 05/05/17 08/05/17 08/11/17 05:30 History Aspirin [Lo-Dose Aspirin EC] 81 mg PO DAILY 05/05/17 08/05/17 08/11/17 05:30 History Cilostazol [Pletal] 100 mg PO BID 05/05/17 08/05/17 08/11/17 05:30 History PARoxetine [Paxil] 20 mg PO DAILY 05/05/17 08/05/17 08/11/17 05:30 History RX: Diclofenac Sodium 75 mg PO DAILY 05/05/17 08/05/17 08/11/17 05:30 History RX: Labetalol HCl 300 mg PO TID 05/05/17 08/05/17 08/11/17 05:30 History Valsartan-Hctz 320-25 mg Tab 1 tab PO DAILY 05/05/17 08/05/1718 05:30 History metFORMIN [Glucophage] 500 mg PO BID 05/05/17 08/11/17 08/10/17 History HYDROcodone/APAP 7.5-325 [[place] 1 each PO Q6HR PRN #20 tablet 05/12/17 08/05/17 Unknown Rx 7.5/325] Active Meds: Active Medications Acetaminophen (Tylenol) 650 mg FEEDTUBE Q6H PRN PRN Reason: Pain, Mild (1-3) Acetaminophen/Hydrocodone Bitart ([place] 5/325) 2 each PO Q6H PRN PRN Reason: Pain, Moderate (4-6) Last Admin: 08/22/17 22:05 Dose: 2 each Amlodipine Besylate (Norvasc) 10 mg PO DAILY [facility] Last Admin: 08/23/17 09:12 Dose: 10 mg Lipase/Protease/Amylase (Pancreaze Dr 10,500 Unit) 1 each FEEDTUBE PRN PRN PRN Reason: For Clogged Feeding Tube Aspirin (Baby Aspirin) 81 mg PO QDAY [facility] Last Admin: 08/23/17 09:12 Dose: 81 mg Atropine Sulfate (Atropine) 1 mg IV PREOP NR Stop: 08/24/17 23:59 Bromfenac Sodium (Prednisolone Bromfenac 1/0.075% Opth(Nf)) 1 OS BID [facility] Last Admin: 08/24/17 10:13 Dose: 1 Carvedilol (Coreg) 12.5 mg PO BID [facility] Last Admin: 08/23/17 22:37 Dose: 12.5 mg Dextrose (D50w (25gm) Syringe) 50 ml IV PRN PRN PRN Reason: Hypoglycemia Famotidine (Pepcid) 20 mg PO BID [facility] Last Admin: 08/23/17 22:37 Dose: 20 mg Folic Acid (Folvite) 1 mg PO QDAY [facility] Last Admin: 08/23/17 09:16 Dose: 1 mg Heparin Sodium (Porcine) (Heparin) 5,000 unit IV CAROLYN PRN PRN Reason: hemodialysis Last Admin: 08/17/17 14:44 Dose: 5,000 unit Heparin Sodium (Porcine) (Heparin) 5,000 unit SUB-Q Q8HR [facility] Last Admin: 08/24/17 06:10 Dose: Not Given Hydralazine HCl (Apresoline) 10 mg IV Q6H PRN PRN Reason: SBP > 160 Last Admin: 08/20/17 13:09 Dose: 10 mg Hydralazine HCl (Apresoline) 50 mg PO Q8HR [facility] Hydrophilic Ointment (Vaseline Lip Therapy) 1 applic TP Q2HR PRN PRN Reason: Dry Lips Fentanyl Citrate (Fentanyl Drip Premix) 2,000 mcg in 100 mls @ 5.171 mls/hr IV TITR [facility]; Protocol Last Titration: 08/17/17 18:30 Dose: 0 mcg/kg/hr, 0 mls/hr Dextrose (D5w) 1,000 mls @ 75 mls/hr IV DIRECT [facility] Last Admin: 08/23/17 09:17 Dose: 50 mls/hr Vancomycin HCl 2,000 mg/ (Sodium Chloride) 520 mls @ 250 mls/hr IV Q24HR [facility] Last Admin: 08/24/17 10:14 Dose: 250 mls/hr Cefepime HCl 2 gm/ Sodium (Chloride) 20 mls @ 20 mls/10 min IV Q8HR [facility]; Protocol Last Admin: 08/24/17 06:05 Dose: 20 mls/10 min Insulin Glargine (Lantus) 10 units SUB-Q DAILY [facility] Last Admin: 08/24/17 10:13 Dose: 10 units Insulin Human Lispro (Humalog) 0 unit SUB-Q Q6HR [facility]; Protocol Last Admin: 08/24/17 07:32 Dose: Not Given Lorazepam (Ativan) 2 mg IV Q4H PRN PRN Reason: Agitation Last Admin: 08/23/17 22:37 Dose: 2 mg Metoprolol Tartrate (Lopressor) 5 mg IV Q6HR PRN PRN Reason: For Heart Rate >140 Last Admin: 08/20/17 08:45 Dose: 5 mg Morphine Sulfate (Morphine) 2 mg IV Q4H PRN PRN Reason: Pain, Moderate (4-6) Last Admin: 08/20/17 02:22 Dose: 2 mg Multi-Ingred Cream/Lotion/Oil/Oint (Artificial Tears Ophth Oint) 1 applic OU Q4HR PRN PRN Reason: Dry Eye(s) Multivitamins (Centrum Liq) 5 ml PO QDAY [facility] Last Admin: 08/23/17 09:11 Dose: 5 ml Naloxone HCl (Narcan 0.4 Mg/1 Ml) 0.1 mg IV Q2MIN PRN PRN Reason: Res Rate </= 8 or 02 SAT < 92% Ondansetron HCl (Zofran) 4 mg IV Q8H PRN PRN Reason: Nausea And Vomiting Paroxetine HCl (Paxil) 20 mg PO DAILY [facility] Last Admin: 08/23/17 09:14 Dose: 20 mg Senna/Docusate Sodium (Senokot S) 2 tab PO QHS [facility] Last Admin: 08/23/17 22:38 Dose: 2 tab Simple Syrup (Simple Syrup) 15 ml FEEDTUBE PRN PRN PRN Reason: Hypoglycemia Simple Syrup (Simple Syrup) 30 ml FEEDTUBE PRN PRN PRN Reason: Hypoglycemia Sodium Bicarbonate (Sodium Bicarbonate) 325 mg FEEDTUBE PRN PRN PRN Reason: For Clogged Feeding Tube Sodium Chloride (Nacl 0.9% 500 Ml) 1 ml IV DIRECT [facility] Last Admin: 08/20/17 04:39 Dose: 1 ml Thiamine HCl (Vitamin B-1) 100 mg PO QDAY [facility] Last Admin: 08/23/17 09:12 Dose: 100 mg Vancomycin HCl (Vancomycin Pharmacy To Dose) 1 each IV PKCONSULT [facility] Exam - Constitutional Vitals: Temp Pulse Resp BP Pulse Ox 98.3 F 100 H 22 147/90 95 08/24/17 12:00 08/24/17 12:05 08/24/17 12:05 08/24/17 12:05 08/24/17 12:05 Results - Labs CBC & Chem 7: 08/24/17 06:20 08/24/17 06:20 Labs: Abnormal lab results 08/23/17 08/23/17 08/23/17 Range/Units 11:07 15:40 17:13 WBC (4.5-11.0) K/mm3 RBC (3.65-5.03) M/mm3 Hgb (11.8-15.2) gm/dl Hct (35.5-45.6) % MCV (84-94) fl MCHC (32-34) % RDW (13.2-15.2) % POC ABG pO2 65 L (80-105) Sodium (137-145) mmol/L Chloride (98-107) mmol/L BUN (9-20) mg/dL Glucose (75-100) mg/dL POC Glucose 253 H 236 H (70-105) 08/24/17 08/24/17 08/24/17 Range/Units 00:13 06:20 06:20 WBC 15.3 H (4.5-11.0) K/mm3 RBC 2.87 L (3.65-5.03) M/mm3 Hgb 8.6 L (11.8-15.2) gm/dl Hct 27.5 L (35.5-45.6) % MCV 96 H (84-94) fl MCHC 31 L (32-34) % RDW 17.6 H (13.2-15.2) % POC ABG pO2 (80-105) Sodium 156 H (137-145) mmol/L Chloride 118.7 H (98-107) mmol/L BUN 60 H (9-20) mg/dL Glucose 163 H (75-100) mg/dL POC Glucose 170 H (70-105)
[2017-08-24] MEDS: BABY ASPIRIN PO SCH (12:45)
[2017-08-24] MEDS: NORCO 5/325 PO PRN (12:45)
[2017-08-24] MEDS: NORVASC PO SCH (12:46)
[2017-08-24] MEDS: COREG PO SCH ×2 (12:48→21:10)
[2017-08-24] MEDS: FOLVITE PO SCH (12:48)
[2017-08-24] MEDS: VITAMIN B-1 PO SCH (12:48)
[2017-08-24] MEDS: APRESOLINE PO SCH ×2 (12:49→21:11)
[2017-08-24] MEDS: Centrum Liq PO SCH (12:49)
[2017-08-24] MEDS: PEPCID PO SCH ×2 (12:49→21:11)
[2017-08-24] MEDS: PAXIL PO SCH (12:54)
[2017-08-24] MEDS ORDERED: LANTUS SUB-Q ONE (13:00)
[2017-08-24] MEDS: D5W 1,000 ML IV SCH ×2 (13:13→22:49)
[2017-08-24 17:14] LABS: INR 1.13 (0.87-1.13)
[2017-08-24] MEDS: MORPHINE IV PRN (22:40)
[2017-08-25] MEDS: HumaLOG SUB-Q SCH ×4 (01:23→18:37)
[2017-08-25] MEDS: SENOKOT S PO SCH ×2 (02:29→23:05)
[2017-08-25] MEDS: HEPARIN SUB-Q SCH ×3 (05:00→23:06)
[2017-08-25] MEDS: APRESOLINE PO SCH ×3 (05:01→23:08)
[2017-08-25] MEDS: MAXIPIME 2 GM in NACL 0.9% 20 ML IV SCH ×3 (05:01→23:09)
--- NOTE | 2017-08-25 08:42 | Progress Note ---
Assessment and Plan - Patient Problems (1) Respiratory failure Current Visit: Yes Status: Acute Plan to address problem: s/p Trach/PEG - 08/24/17 -POD#1. Pt with mild abdominal distention. does not appears to be surgical complication as abdomen is very benign. Probably related to air and stool retention. Pt has not had regular bowel movements. Will check Abd XRay. If patient has lots of air and stool in colon, will order appropriate meds. Please call with any questions. Subjective Date of service: 08/25/17 Patient Reports: Positive: other (pt appears to indicate abdominal discomfort. Nurse reports no issues last night. ) Objective Vital Signs - 12hr 08/24/17 08/24/17 08/24/17 21:01 21:10 21:11 Temperature Pulse Rate 107 H 102 H 109 H Pulse Rate [ From Monitor] Respiratory 21 Rate Blood Pressure 141/81 141/81 141/81 O2 Sat by Pulse 97 Oximetry O2 Sat by Pulse Oximetry [ Assessment] 08/24/17 08/24/17 08/24/17 21:30 21:31 22:01 Temperature Pulse Rate 100 H 107 H 102 H Pulse Rate [ From Monitor] Respiratory 23 24 25 H Rate Blood Pressure 145/69 145/69 145/69 O2 Sat by Pulse 96 96 96 Oximetry O2 Sat by Pulse Oximetry [ Assessment] 08/24/17 08/24/17 08/24/17 22:30 23:01 23:30 Temperature Pulse Rate 99 H 108 H 107 H Pulse Rate [ From Monitor] Respiratory 13 14 25 H Rate Blood Pressure 147/68 162/60 143/80 O2 Sat by Pulse 96 96 97 Oximetry O2 Sat by Pulse Oximetry [ Assessment] 08/24/17 08/25/17 08/25/17 23:53 00:00 00:30 Temperature 99.1 F Pulse Rate 102 H 97 H 100 H Pulse Rate [ 103 H From Monitor] Respiratory 21 21 Rate Blood Pressure 146/77 146/71 152/64 O2 Sat by Pulse 97 98 98 Oximetry O2 Sat by Pulse Oximetry [ Assessment] 08/25/17 08/25/17 08/25/17 01:00 01:30 02:01 Temperature Pulse Rate 104 H 97 H 112 H Pulse Rate [ From Monitor] Respiratory 18 14 22 Rate Blood Pressure 163/75 171/80 160/78 O2 Sat by Pulse 97 98 98 Oximetry O2 Sat by Pulse Oximetry [ Assessment] 08/25/17 08/25/17 08/25/17 02:30 03:01 03:31 Temperature Pulse Rate 107 H 104 H 114 H Pulse Rate [ From Monitor] Respiratory 18 16 21 Rate Blood Pressure 157/80 174/55 174/85 O2 Sat by Pulse 98 98 98 Oximetry O2 Sat by Pulse Oximetry [ Assessment] 08/25/17 08/25/17 08/25/17 04:00 04:01 04:20 Temperature 98.8 F Pulse Rate 108 H 108 H Pulse Rate [ 114 H From Monitor] Respiratory 18 23 Rate Blood Pressure 154/79 146/77 O2 Sat by Pulse 99 99 98 Oximetry O2 Sat by Pulse Oximetry [ Assessment] 08/25/17 08/25/17 08/25/17 04:29 04:31 05:01 Temperature Pulse Rate 104 H 107 H Pulse Rate [ From Monitor] Respiratory 22 18 Rate Blood Pressure 146/74 159/81 O2 Sat by Pulse 99 98 Oximetry O2 Sat by Pulse 100 Oximetry [ Assessment] 08/25/17 08/25/17 08/25/17 05:31 06:01 06:30 Temperature Pulse Rate 113 H 106 H 109 H Pulse Rate [ From Monitor] Respiratory 15 21 19 Rate Blood Pressure 172/82 172/82 157/67 O2 Sat by Pulse 98 98 98 Oximetry O2 Sat by Pulse Oximetry [ Assessment] 08/25/17 08:00 Temperature 99.5 F Pulse Rate Pulse Rate [ From Monitor] Respiratory Rate Blood Pressure O2 Sat by Pulse Oximetry O2 Sat by Pulse Oximetry [ Assessment] - General physical appearance no distress, no pain, other (awake and appears to respond to questions appropriately) - Neck trachea midline, other (trach in place. No drainage or bleeding. ) - Respiratory normal expansion, normal respiratory effort, other (equal breath sounds. ) - Abdomen soft, bowel sounds hypoactive, distended, not guarding, not rigid, other (mild tympany in upper abdomen. No peritoneal signs. PEG in place. No excess tension on skin. No drainage. TF currently running. ) - Labs 08/24/17 06:20 08/24/17 06:20
[2017-08-25 08:52] LABS: Hematocrit 26.4 % (35.5-45.6); Hemoglobin 8.4 gm/dl (11.8-15.2); Mean Corpuscular HGB Conc 32 % (32-34); Mean Corpuscular Hemoglobin 31 pg (28-32); Mean Corpuscular Volume 96 fl (84-94); Platelet Count 180 K/mm3 (140-440); Red Blood Count 2.75 M/mm3 (3.65-5.03); Red Cell Distribution Width 17.7 % (13.2-15.2)
[2017-08-25] MEDS: MORPHINE IV PRN ×2 (08:57→12:47)
[2017-08-25 09:05] LABS: Calcium 8.2 mg/dL (8.4-10.2)
--- NOTE | 2017-08-25 09:20 | Progress Note ---
Assessment and Plan - Patient Problems (1) Acute renal failure due to tubular necrosis Current Visit: Yes Status: Acute Plan to address problem: Acute renal failure / acute tubular necrosis, pt is nonoliguric with improving urine output. Still with volume overload but improving with diuresis. Kidney indices are improving. Follow up electrolytes and renal function. (2) Hypernatremia Current Visit: Yes Status: Acute Plan to address problem: Continue D5W, Follow-up sodium. Given persistent fluid overload, elevated glucose, will decrease D5W to 50cc/hr. increase free water flushes via PEG to 250 cc q4h (3) Hypokalemia Current Visit: Yes Status: Acute Plan to address problem: Supplement potassium and follow up levels. (4) Hemorrhagic shock Current Visit: Yes Status: Acute Plan to address problem: Status post multiple transfusions. hb stable at 8,4 (5) Metabolic acidosis Current Visit: Yes Status: Acute Plan to address problem: mostly due to hyperchloremic met acidosis. cont D5W/free water flushes (6) Hypocalcemia Current Visit: Yes Status: Acute Plan to address problem: Supplemental calcium as indicated. (7) Atherosclerosis of [place] arteries of extremity with intermittent claudication Current Visit: No Status: Acute Plan to address problem: Continue management per vascular surgeon (8) Anemia Current Visit: Yes Status: Acute Plan to address problem: Hemoglobin improved. Continue to Follow-up hemoglobin Subjective Date of service: 08/25/17 Principal diagnosis: Acute Hypoxemic Respiratory Failure; Hemorrhagic Shock; WILLIAM on Dilaysis;PVD Interval history: pt remains on vent, s/p trach/PEG. Objective - Vital Signs Vital signs: Vital Signs - 12hr 08/24/17 08/24/17 08/24/17 21:30 21:31 22:01 Temperature Pulse Rate 100 H 107 H 102 H Pulse Rate [ From Monitor] Respiratory 23 24 25 H Rate Blood Pressure 145/69 145/69 145/69 O2 Sat by Pulse 96 96 96 Oximetry O2 Sat by Pulse Oximetry [ Assessment] 08/24/17 08/24/17 08/24/17 22:30 23:01 23:30 Temperature Pulse Rate 99 H 108 H 107 H Pulse Rate [ From Monitor] Respiratory 13 14 25 H Rate Blood Pressure 147/68 162/60 143/80 O2 Sat by Pulse 96 96 97 Oximetry O2 Sat by Pulse Oximetry [ Assessment] 08/24/17 08/25/17 08/25/17 23:53 00:00 00:30 Temperature 99.1 F Pulse Rate 102 H 97 H 100 H Pulse Rate [ 103 H From Monitor] Respiratory 21 21 Rate Blood Pressure 146/77 146/71 152/64 O2 Sat by Pulse 97 98 98 Oximetry O2 Sat by Pulse Oximetry [ Assessment] 08/25/17 08/25/17 08/25/17 01:00 01:30 02:01 Temperature Pulse Rate 104 H 97 H 112 H Pulse Rate [ From Monitor] Respiratory 18 14 22 Rate Blood Pressure 163/75 171/80 160/78 O2 Sat by Pulse 97 98 98 Oximetry O2 Sat by Pulse Oximetry [ Assessment] 08/25/17 08/25/17 08/25/17 02:30 03:01 03:31 Temperature Pulse Rate 107 H 104 H 114 H Pulse Rate [ From Monitor] Respiratory 18 16 21 Rate Blood Pressure 157/80 174/55 174/85 O2 Sat by Pulse 98 98 98 Oximetry O2 Sat by Pulse Oximetry [ Assessment] 08/25/17 08/25/17 08/25/17 04:00 04:01 04:20 Temperature 98.8 F Pulse Rate 108 H 108 H Pulse Rate [ 114 H From Monitor] Respiratory 18 23 Rate Blood Pressure 154/79 146/77 O2 Sat by Pulse 99 99 98 Oximetry O2 Sat by Pulse Oximetry [ Assessment] 08/25/17 08/25/17 08/25/17 04:29 04:31 05:01 Temperature Pulse Rate 104 H 107 H Pulse Rate [ From Monitor] Respiratory 22 18 Rate Blood Pressure 146/74 159/81 O2 Sat by Pulse 99 98 Oximetry O2 Sat by Pulse 100 Oximetry [ Assessment] 08/25/17 08/25/17 08/25/17 05:31 06:01 06:30 Temperature Pulse Rate 113 H 106 H 109 H Pulse Rate [ From Monitor] Respiratory 15 21 19 Rate Blood Pressure 172/82 172/82 157/67 O2 Sat by Pulse 98 98 98 Oximetry O2 Sat by Pulse Oximetry [ Assessment] 08/25/17 08/25/17 08:00 08:56 Temperature 99.5 F Pulse Rate 111 H Pulse Rate [ From Monitor] Respiratory Rate Blood Pressure 157/67 O2 Sat by Pulse 98 Oximetry O2 Sat by Pulse 98 Oximetry [ Assessment] - General Appearance General appearance: well-developed, well-nourished, appears stated age, other (s /p t racheostomy ) EENT: ATNC, PERRL, mucous membranes moist Neck: no JVD Respiratory: Present: Decreased Breath Sounds Cardiology: regular, S1S2 Gastrointestinal: normoactive bowel sounds, distended Integumentary: no rash, other (2+ edema b/l LE ) Neurologic: confused, disoriented, other (on vent ) - Lab 08/25/17 08:38 08/25/17 08:38 Most recent lab results Calcium 8.2 mg/dL (8.4-10.2) L 08/25/17 08:38 Phosphorus 2.60 mg/dL (2.5-4.5) 08/24/17 06:20 Magnesium 2.10 mg/dL (1.7-2.3) 08/24/17 06:20
--- NOTE | 2017-08-25 09:27 | XRay Report ---
AP ABDOMEN: HISTORY: Abdominal distention. A PEG tube has been inserted since 08/16/17. There is moderate gaseous distention of the stomach on today's exam. The small and large bowel loops appear normal caliber. No large free air or pathologic calcifications are appreciated. IMPRESSION: Moderate gaseous distention of the stomach.
[2017-08-25] MEDS: Centrum Liq PO SCH (09:34)
[2017-08-25] MEDS: VITAMIN B-1 PO SCH (09:34)
[2017-08-25] MEDS: COREG PO SCH ×2 (09:34→23:05)
[2017-08-25] MEDS: FOLVITE PO SCH (09:35)
[2017-08-25] MEDS: NORVASC PO SCH (09:35)
[2017-08-25] MEDS: PEPCID PO SCH ×2 (09:35→23:06)
[2017-08-25] MEDS: BABY ASPIRIN PO SCH (09:35)
[2017-08-25] MEDS: LANTUS SUB-Q SCH (09:37)
[2017-08-25] MEDS: PAXIL PO SCH (09:37)
--- NOTE | 2017-08-25 09:51 | Event Note ---
Date: 08/25/17 I reviewed the x-rays. It appears the distention is all due to stomach distention. I'll already spoken to the nurse who will decompress the stomach and then restart the tube feeds later at a lower rate. Once the [facility] doctors come in, I will discuss this finding with them.
[2017-08-25] MEDS ORDERED: D5W 1,000 ML IV SCH (10:00)
[2017-08-25] MEDS ORDERED: POTASSIUM CHLORIDE FEEDTUBE ONE (10:00)
[2017-08-25] MEDS ORDERED: LANTUS SUB-Q ONE (11:00)
[2017-08-25] MEDS: [UNRECOGNIZED DRUG - OTHER] OS SCH ×2 (11:19→23:07)
[2017-08-25] MEDS: OPTH OS SCH ×2 (11:19→23:07)
[2017-08-25] MEDS: VANCOMYCIN 2,000 MG in NACL 0.9% 500 ML 500 ML IV SCH (11:23)
--- NOTE | 2017-08-25 11:31 | Progress Note ---
Assessment and Plan Assessment: 1) Sepsis with intermittent hypovolemic +/- septic shock: Shock and fever resolved and leukocytosis is up. Sepsis Etiology ?? unclear - possibilities VAP . CRP=22/Procal 0.3 2) Presumed VAP: CXR showed bibasilar perihilar and bibasilar opacities and right mod pleural effusion, left mild pleural effusion. 3) Acute respiratory failure: for airway protection - better 4) Acute encephalopathy: multifactorial - better 5) UTI: inital UA c/w UTI, urine cx negative. Repeat UA neg 6) Right lower extremity chronic ischemia with short distance claudication: -S/P elective right common femoral endarterectomy with patch angioplasty, bilateral common iliac and right external artery stenting on 08/11/17 7) Ruptured pseudoaneurysm left groin/external iliac: -CTA showed retroperitoneal hemorrhage and bladder thickening. -S/P deployment of new Viabond stent graft across the inguinal ligament into the common femoral artery on 08/13/17. 8) WILLIAM 9) Anasarca Plan: -follow-up respiratory cultures -continue vancomycin and cefepime renally dosed - D6/7 -monitor leukocytosis - it is up today Thank you for your consultation, will follow up with you. Tasia Baldwin MD Infectious Diseases Specialist [facility] ([facility] M [phone] O [phone] Subjective Date of service: 08/25/17 Principal diagnosis: Acute Hypoxemic Respiratory Failure; Hemorrhagic Shock; WILLIAM on Dilaysis;PVD Interval history: Underwent trach still on the vent FIO2 45% P 6, no fever, alert. Microbiology: Blood cultures: 08/14 neg 08/20 neg Urine cultures: 08/14 neg Current Antimicrobials: vanco 08/20 cefepime 08/20 Previous Antimicrobials: doxycycline 08/14 Objective - Exam Narrative Exam: General appearance: sedated on the vent Eyes: anicteric sclerae, moist conjunctivae; no lid-lag; HENT: Atraumatic; oropharynx limited Neck: Trach in place Lungs: bilateral rhonchi CV: RRR Abdomen: Soft, non-tender; no masses or hepatosplenomegaly Extremities: +kati marked leg edema Skin: +decreased massive scrotal edema + kati groin wounds Psych: sedated Neuro: sedated Lines: right IJ, left arm PICC - Constitutional Vitals: Vital Signs Temp Pulse Resp BP Pulse Ox 99.5 F 10 L 20 147/33 98 08/25/17 08:00 08/25/17 09:35 08/25/17 09:27 08/25/17 09:35 08/25/17 08:56 Temperature -Last 24 Hours Temperature 99.5 F Temperature 98.8 F Temperature 99.1 F Temperature 99.6 F Temperature 110.5 F Temperature 98.3 F - Labs CBC & Chem 7: 08/25/17 08:38 08/25/17 08:38 Labs: Abnormal lab results 08/20/17 08/24/17 08/24/17 Range/Units 12:25 11:16 11:43 WBC (4.5-11.0) K/mm3 RBC (3.65-5.03) M/mm3 Hgb (11.8-15.2) gm/dl Hct (35.5-45.6) % MCV (84-94) fl RDW (13.2-15.2) % PT (12.2-14.9) Sec. POC ABG pH (7.35-7.45) POC ABG pO2 59 L (80-105) Sodium (137-145) mmol/L Potassium (3.6-5.0) mmol/L Chloride (98-107) mmol/L BUN (9-20) mg/dL Glucose (75-100) mg/dL POC Glucose 212 H (70-105) Calcium (8.4-10.2) mg/dL Miscellaneous Test Flexitest 1 H 08/24/17 08/24/17 08/24/17 Range/Units 16:52 16:59 23:46 WBC (4.5-11.0) K/mm3 RBC (3.65-5.03) M/mm3 Hgb (11.8-15.2) gm/dl Hct (35.5-45.6) % MCV (84-94) fl RDW (13.2-15.2) % PT 15.1 H (12.2-14.9) Sec. POC ABG pH (7.35-7.45) POC ABG pO2 (80-105) Sodium (137-145) mmol/L Potassium (3.6-5.0) mmol/L Chloride (98-107) mmol/L BUN (9-20) mg/dL Glucose (75-100) mg/dL POC Glucose 250 H 255 H (70-105) Calcium (8.4-10.2) mg/dL Miscellaneous Test 08/25/17 08/25/17 08/25/17 Range/Units 04:21 05:45 08:38 WBC 17.1 H (4.5-11.0) K/mm3 RBC 2.75 L (3.65-5.03) M/mm3 Hgb 8.4 L (11.8-15.2) gm/dl Hct 26.4 L (35.5-45.6) % MCV 96 H (84-94) fl RDW 17.7 H (13.2-15.2) % PT (12.2-14.9) Sec. POC ABG pH 7.461 H (7.35-7.45) POC ABG pO2 (80-105) Sodium (137-145) mmol/L Potassium (3.6-5.0) mmol/L Chloride (98-107) mmol/L BUN (9-20) mg/dL Glucose (75-100) mg/dL POC Glucose 252 H (70-105) Calcium (8.4-10.2) mg/dL Miscellaneous Test 08/25/17 Range/Units 08:38 WBC (4.5-11.0) K/mm3 RBC (3.65-5.03) M/mm3 Hgb (11.8-15.2) gm/dl Hct (35.5-45.6) % MCV (84-94) fl RDW (13.2-15.2) % PT (12.2-14.9) Sec. POC ABG pH (7.35-7.45) POC ABG pO2 (80-105) Sodium 152 H (137-145) mmol/L Potassium 3.4 L (3.6-5.0) mmol/L Chloride 115.6 H (98-107) mmol/L BUN 66 H (9-20) mg/dL Glucose 297 H (75-100) mg/dL POC Glucose (70-105) Calcium 8.2 L (8.4-10.2) mg/dL Miscellaneous Test
--- NOTE | 2017-08-25 12:21 | Progress Note ---
Assessment and Plan intubated, awake, s/p PEG and trache today, discussed with ICU attending, will do trache mask trial mental status improved, follows commands, BP stable, on his hypertensive meds urine output good, renal function back to normal no HD needed per renal PEG feeds did not tolerate for now, to gravity at this point WBC elevated, cultures negative, on antibiotics per ID barrientos placed by urology, do not remove for now LTAC placement Subjective Date of service: 08/25/17 Principal diagnosis: Acute Hypoxemic Respiratory Failure; Hemorrhagic Shock; WILLIAM on Dilaysis;PVD Interval history: patient is s/p trache and PEG today, remains on vent for now, mental status is improved, follows all commands. Objective - Exam Narrative Exam: feet warm with good perfusion. Groin incisions healing well abdomen soft, not distended, BS+ decreased scrotal edema, renal function improved, barrientos in place PEG tube to gravity at this point - Constitutional Vitals: Vital Signs - 12hr 08/25/17 08/25/17 08/25/17 00:30 01:00 01:30 Temperature Pulse Rate 100 H 104 H 97 H Pulse Rate [ From Monitor] Respiratory 21 18 14 Rate Blood Pressure 152/64 163/75 171/80 O2 Sat by Pulse 98 97 98 Oximetry O2 Sat by Pulse Oximetry [ Assessment] 08/25/17 08/25/17 08/25/17 02:01 02:30 03:01 Temperature Pulse Rate 112 H 107 H 104 H Pulse Rate [ From Monitor] Respiratory 22 18 16 Rate Blood Pressure 160/78 157/80 174/55 O2 Sat by Pulse 98 98 98 Oximetry O2 Sat by Pulse Oximetry [ Assessment] 08/25/17 08/25/17 08/25/17 03:31 04:00 04:01 Temperature 98.8 F Pulse Rate 114 H 108 H Pulse Rate [ 114 H From Monitor] Respiratory 21 18 23 Rate Blood Pressure 174/85 154/79 O2 Sat by Pulse 98 99 99 Oximetry O2 Sat by Pulse Oximetry [ Assessment] 08/25/17 08/25/17 08/25/17 04:20 04:29 04:31 Temperature Pulse Rate 108 H 104 H Pulse Rate [ From Monitor] Respiratory 22 Rate Blood Pressure 146/77 146/74 O2 Sat by Pulse 98 99 Oximetry O2 Sat by Pulse 100 Oximetry [ Assessment] 08/25/17 08/25/17 08/25/17 05:01 05:31 06:01 Temperature Pulse Rate 107 H 113 H 106 H Pulse Rate [ From Monitor] Respiratory 18 15 21 Rate Blood Pressure 159/81 172/82 172/82 O2 Sat by Pulse 98 98 98 Oximetry O2 Sat by Pulse Oximetry [ Assessment] 08/25/17 08/25/17 08/25/17 06:30 08:00 08:56 Temperature 99.5 F Pulse Rate 109 H 111 H Pulse Rate [ From Monitor] Respiratory 19 Rate Blood Pressure 157/67 157/67 O2 Sat by Pulse 98 98 Oximetry O2 Sat by Pulse 98 Oximetry [ Assessment] 08/25/17 08/25/17 08/25/17 09:27 09:34 09:35 Temperature Pulse Rate 114 H 10 L Pulse Rate [ From Monitor] Respiratory 20 Rate Blood Pressure 147/33 147/33 O2 Sat by Pulse Oximetry O2 Sat by Pulse Oximetry [ Assessment] - Labs CBC & Chem 7: 08/25/17 08:38 08/25/17 08:38 Labs: Abnormal lab results 08/20/17 08/24/17 08/24/17 Range/Units 12:25 11:16 11:43 WBC (4.5-11.0) K/mm3 RBC (3.65-5.03) M/mm3 Hgb (11.8-15.2) gm/dl Hct (35.5-45.6) % MCV (84-94) fl RDW (13.2-15.2) % PT (12.2-14.9) Sec. POC ABG pH (7.35-7.45) POC ABG pO2 59 L (80-105) Sodium (137-145) mmol/L Potassium (3.6-5.0) mmol/L Chloride (98-107) mmol/L BUN (9-20) mg/dL Glucose (75-100) mg/dL POC Glucose 212 H (70-105) Calcium (8.4-10.2) mg/dL Miscellaneous Test Flexitest 1 H 08/24/17 08/24/17 08/24/17 Range/Units 16:52 16:59 23:46 WBC (4.5-11.0) K/mm3 RBC (3.65-5.03) M/mm3 Hgb (11.8-15.2) gm/dl Hct (35.5-45.6) % MCV (84-94) fl RDW (13.2-15.2) % PT 15.1 H (12.2-14.9) Sec. POC ABG pH (7.35-7.45) POC ABG pO2 (80-105) Sodium (137-145) mmol/L Potassium (3.6-5.0) mmol/L Chloride (98-107) mmol/L BUN (9-20) mg/dL Glucose (75-100) mg/dL POC Glucose 250 H 255 H (70-105) Calcium (8.4-10.2) mg/dL Miscellaneous Test 08/25/17 08/25/17 08/25/17 Range/Units 04:21 05:45 08:38 WBC 17.1 H (4.5-11.0) K/mm3 RBC 2.75 L (3.65-5.03) M/mm3 Hgb 8.4 L (11.8-15.2) gm/dl Hct 26.4 L (35.5-45.6) % MCV 96 H (84-94) fl RDW 17.7 H (13.2-15.2) % PT (12.2-14.9) Sec. POC ABG pH 7.461 H (7.35-7.45) POC ABG pO2 (80-105) Sodium (137-145) mmol/L Potassium (3.6-5.0) mmol/L Chloride (98-107) mmol/L BUN (9-20) mg/dL Glucose (75-100) mg/dL POC Glucose 252 H (70-105) Calcium (8.4-10.2) mg/dL Miscellaneous Test 08/25/17 08/25/17 Range/Units 08:38 12:08 WBC (4.5-11.0) K/mm3 RBC (3.65-5.03) M/mm3 Hgb (11.8-15.2) gm/dl Hct (35.5-45.6) % MCV (84-94) fl RDW (13.2-15.2) % PT (12.2-14.9) Sec. POC ABG pH (7.35-7.45) POC ABG pO2 (80-105) Sodium 152 H (137-145) mmol/L Potassium 3.4 L (3.6-5.0) mmol/L Chloride 115.6 H (98-107) mmol/L BUN 66 H (9-20) mg/dL Glucose 297 H (75-100) mg/dL POC Glucose 245 H (70-105) Calcium 8.2 L (8.4-10.2) mg/dL Miscellaneous Test
--- NOTE | 2017-08-25 14:37 | Progress Note ---
Assessment and Plan Acute Hypoxic Respiratory failure Vasogenic Shock/Septic shock WILLIAM Secondary to vasomotor nephropathy Severe Metabolic Acidosis Acute blood loss anemia PVD s/p right femoral end-arterectomy Acute encephalopathy s/p Massive blood transfusion Leukocytosis Nicotine dependence/Tobacco abuse disorder Hypernatremia -routine trach care - continue supplemental oxygen and wean to keep sats > 90% - continue to address VAP bundle daily -initiate SBTs PSV and ATC trials - continue empiric antibiotics and follow cultures-ID following - VTE and stress ulcer prophylaxis - PEG to gravity, follow up KUB and clinical exam in the morning prior to initiating tube feedings -Hypotonic solution - discharge planning---LTACH Discussed care plan with general surgeon and vascular surgeon Subjective Date of service: 08/25/17 Principal diagnosis: Acute Hypoxemic Respiratory Failure; Hemorrhagic Shock; WILLIAM on Dilaysis;PVD Interval history: Seen and examined at bedside; 24 hour events reviewed; Vitals, labs, medications, chart reviewed. Remains on MVS; AMS is much better. s/p Trach and PEG yesterday No fevers overnight. Some abdominal distension noted this morning, with coffee ground output KUB showed gastric distension with ileus Discussed with vascular surgeon Discussed with RT and RN Objective Vital Signs - 12hr 08/25/17 08/25/17 08/25/17 03:01 03:31 04:00 Temperature 98.8 F Pulse Rate 104 H 114 H Pulse Rate [ 114 H From Monitor] Respiratory 16 21 18 Rate Blood Pressure 174/55 174/85 O2 Sat by Pulse 98 98 99 Oximetry O2 Sat by Pulse Oximetry [ Assessment] 08/25/17 08/25/17 08/25/17 04:01 04:20 04:29 Temperature Pulse Rate 108 H 108 H Pulse Rate [ From Monitor] Respiratory 23 Rate Blood Pressure 154/79 146/77 O2 Sat by Pulse 99 98 Oximetry O2 Sat by Pulse 100 Oximetry [ Assessment] 08/25/17 08/25/17 08/25/17 04:31 05:01 05:31 Temperature Pulse Rate 104 H 107 H 113 H Pulse Rate [ From Monitor] Respiratory 22 18 15 Rate Blood Pressure 146/74 159/81 172/82 O2 Sat by Pulse 99 98 98 Oximetry O2 Sat by Pulse Oximetry [ Assessment] 08/25/17 08/25/17 08/25/17 06:01 06:30 08:00 Temperature 99.5 F Pulse Rate 106 H 109 H 111 H Pulse Rate [ From Monitor] Respiratory 21 19 Rate Blood Pressure 172/82 157/67 157/67 O2 Sat by Pulse 98 98 98 Oximetry O2 Sat by Pulse Oximetry [ Assessment] 08/25/17 08/25/17 08/25/17 08:56 09:27 09:34 Temperature Pulse Rate 114 H Pulse Rate [ From Monitor] Respiratory 20 Rate Blood Pressure 147/33 O2 Sat by Pulse Oximetry O2 Sat by Pulse 98 Oximetry [ Assessment] 08/25/17 08/25/17 08/25/17 09:35 11:30 12:00 Temperature 100.5 F H Pulse Rate 10 L 108 H Pulse Rate [ From Monitor] Respiratory Rate Blood Pressure 147/33 161/67 O2 Sat by Pulse 99 Oximetry O2 Sat by Pulse Oximetry [ Assessment] 08/25/17 08/25/17 13:17 13:43 Temperature Pulse Rate 108 H Pulse Rate [ From Monitor] Respiratory 20 Rate Blood Pressure 161/67 O2 Sat by Pulse Oximetry O2 Sat by Pulse Oximetry [ Assessment] Constitutional: no acute distress, alert, other (obese) Eyes: non-icteric ENT: oropharynx moist, other (s/p tracheostomy to MVS) Neck: supple, no lymphadenopathy, no JVD, other (RIJ VasCath) Effort: normal, mildly labored Ascultation: Bilateral: diminished breath sounds, rales (scant) Percussion: Bilateral: not dull Cardiovascular: regular rate and rhythm, other (No R/M) Gastrointestinal: normoactive bowel sounds, soft, non-tender, non-distended, other (s/p PEG; no palpable HSM) Integumentary: other (post-op scars) Extremities: no cyanosis, pink and warm, no ischemia or petechiae, edema (1+) Neurologic: non-focal exam (grossly), pupils equal and round, CN II-XII normal Psychiatric: other (unable to assess) CBC and BMP: 08/25/17 08:38 08/25/17 08:38 ABG, PT/INR, D-dimer: ABG POC ABG pH 7.461 (7.35-7.45) H 08/25/17 04:21 POC ABG pCO2 37.3 (35-45) 08/25/17 04:21 POC ABG pO2 82 (80-105) 08/25/17 04:21 POC ABG HCO3 26.6 08/25/17 04:21 POC ABG Total CO2 28 08/25/17 04:21 POC ABG O2 Sat 97 08/25/17 04:21 PT/INR, D-dimer PT 15.1 Sec. (12.2-14.9) H 08/24/17 16:52 INR 1.13 (0.87-1.13) 08/24/17 16:52 D-Dimer 950.64 ng/mlDDU (0-234) H 08/14/17 05:00 Abnormal lab findings: Abnormal Labs 08/10/17 08/10/17 08/10/17 10:05 10:05 10:05 WBC RBC Hgb POC Hgb Hct POC Hct MCV 97 H MCH 33 H MCHC RDW Plt Count Lymph % (Auto) [place] % (Auto) Lymph # [place] # Seg Neutrophils % 72.9 H Seg Neutrophils # PT 11.6 L INR 0.81 L APTT Activated Clotting Time D-Dimer Heparin Anti-Xa Level POC ABG pH POC ABG pCO2 POC ABG pO2 Sodium Potassium Chloride Carbon Dioxide BUN Creatinine 0.7 L Glucose 196 H POC Glucose Lactic Acid Calcium Total Bilirubin AST ALT C-Reactive Protein Total Protein Albumin Ur Specific [place] Urine WBC (Auto) Miscellaneous Test Crossmatch 08/11/17 08/11/17 08/11/17 06:50 07:03 09:50 WBC RBC Hgb POC Hgb Hct POC Hct MCV MCH MCHC RDW Plt Count Lymph % (Auto) [place] % (Auto) Lymph # [place] # Seg Neutrophils % Seg Neutrophils # PT INR APTT Activated Clotting Time D-Dimer Heparin Anti-Xa Level POC ABG pH 7.270 L POC ABG pCO2 49.1 H POC ABG pO2 117 H Sodium Potassium Chloride Carbon Dioxide BUN Creatinine Glucose POC Glucose 160 H Lactic Acid Calcium Total Bilirubin AST ALT C-Reactive Protein Total Protein Albumin Ur Specific [place] Urine WBC (Auto) Miscellaneous Test Crossmatch See Detail 08/11/17 08/11/17 08/11/17 10:52 11:12 12:16 WBC RBC Hgb POC Hgb Hct POC Hct MCV MCH MCHC RDW Plt Count Lymph % (Auto) [place] % (Auto) Lymph # [place] # Seg Neutrophils % Seg Neutrophils # PT INR APTT Activated Clotting Time 191 H 153 H D-Dimer Heparin Anti-Xa Level POC ABG pH POC ABG pCO2 POC ABG pO2 Sodium Potassium Chloride Carbon Dioxide BUN Creatinine Glucose POC Glucose 176 H Lactic Acid Calcium Total Bilirubin AST ALT C-Reactive Protein Total Protein Albumin Ur Specific [place] Urine WBC (Auto) Miscellaneous Test Crossmatch 08/11/17 08/11/17 08/11/17 12:27 13:07 14:39 WBC RBC Hgb POC Hgb 9.9 L 8.5 L Hct POC Hct 29 L 25 L MCV MCH MCHC RDW Plt Count Lymph % (Auto) [place] % (Auto) Lymph # [place] # Seg Neutrophils % Seg Neutrophils # PT INR APTT Activated Clotting Time 186 H D-Dimer Heparin Anti-Xa Level POC ABG pH POC ABG pCO2 POC ABG pO2 Sodium Potassium Chloride Carbon Dioxide BUN Creatinine Glucose POC Glucose 183 H 197 H Lactic Acid Calcium Total Bilirubin AST ALT C-Reactive Protein Total Protein Albumin Ur Specific [place] Urine WBC (Auto) Miscellaneous Test Crossmatch 08/11/17 08/11/17 08/11/17 14:46 16:18 17:57 WBC 12.7 H RBC 3.00 L Hgb 9.5 L D POC Hgb Hct 28.3 L D POC Hct MCV MCH MCHC RDW 16.3 H Plt Count 105 L Lymph % (Auto) 6.7 L [place] % (Auto) Lymph # 0.8 L [place] # Seg Neutrophils % 86.3 H Seg Neutrophils # 10.9 H PT INR APTT Activated Clotting Time 164 H D-Dimer Heparin Anti-Xa Level POC ABG pH POC ABG pCO2 POC ABG pO2 Sodium Potassium Chloride Carbon Dioxide BUN Creatinine Glucose POC Glucose 192 H Lactic Acid Calcium Total Bilirubin AST ALT C-Reactive Protein Total Protein Albumin Ur Specific [place] Urine WBC (Auto) Miscellaneous Test Crossmatch 08/11/17 08/11/17 08/11/17 17:57 20:00 20:00 WBC RBC Hgb 10.2 L POC Hgb Hct 31.1 L POC Hct MCV MCH MCHC RDW Plt Count 117 L Lymph % (Auto) [place] % (Auto) Lymph # [place] # Seg Neutrophils % Seg Neutrophils # PT 15.3 H INR 1.15 H APTT 97.7 H* Activated Clotting Time D-Dimer Heparin Anti-Xa Level POC ABG pH POC ABG pCO2 POC ABG pO2 Sodium Potassium Chloride 117.4 H Carbon Dioxide 18 L BUN Creatinine 0.7 L Glucose 143 H POC Glucose Lactic Acid Calcium 6.4 L D Total Bilirubin AST ALT C-Reactive Protein Total Protein Albumin Ur Specific [place] Urine WBC (Auto) Miscellaneous Test Crossmatch 08/12/17 08/12/17 08/12/17 03:30 03:50 03:50 WBC RBC Hgb 9.2 L 9.1 L POC Hgb Hct 27.5 L 27.2 L POC Hct MCV MCH MCHC RDW Plt Count Lymph % (Auto) [place] % (Auto) Lymph # [place] # Seg Neutrophils % Seg Neutrophils # PT INR APTT Activated Clotting Time D-Dimer Heparin Anti-Xa Level POC ABG pH POC ABG pCO2 POC ABG pO2 Sodium Potassium Chloride 113.5 H Carbon Dioxide 13 L BUN Creatinine Glucose 243 H POC Glucose Lactic Acid Calcium 6.3 L Total Bilirubin AST ALT C-Reactive Protein Total Protein Albumin Ur Specific [place] Urine WBC (Auto) Miscellaneous Test Crossmatch 08/12/17 08/12/17 08/12/17 07:36 08:48 16:16 WBC RBC Hgb POC Hgb Hct POC Hct MCV MCH MCHC RDW Plt Count Lymph % (Auto) [place] % (Auto) Lymph # [place] # Seg Neutrophils % Seg Neutrophils # PT INR APTT Activated Clotting Time D-Dimer Heparin Anti-Xa Level POC ABG pH 6.952 L 7.159 L POC ABG pCO2 49.1 H 47.8 H POC ABG pO2 76 L 106 H Sodium Potassium Chloride Carbon Dioxide BUN Creatinine Glucose POC Glucose 246 H Lactic Acid Calcium Total Bilirubin AST ALT C-Reactive Protein Total Protein Albumin Ur Specific [place] Urine WBC (Auto) Miscellaneous Test Crossmatch 08/12/17 08/12/17 08/12/17 17:54 18:30 20:15 WBC 17.9 H RBC 3.29 L Hgb 10.0 L POC Hgb Hct 29.3 L POC Hct MCV MCH MCHC RDW 15.5 H Plt Count 76 L Lymph % (Auto) [place] % (Auto) Lymph # [place] # Seg Neutrophils % Seg Neutrophils # PT INR APTT Activated Clotting Time D-Dimer Heparin Anti-Xa Level POC ABG pH POC ABG pCO2 POC ABG pO2 Sodium Potassium Chloride Carbon Dioxide BUN Creatinine Glucose POC Glucose 240 H Lactic Acid Calcium Total Bilirubin AST ALT C-Reactive Protein Total Protein Albumin Ur Specific [place] 1.051 H Urine WBC (Auto) > 182.0 H Miscellaneous Test Crossmatch 08/12/17 08/12/17 08/13/17 21:50 21:50 03:20 WBC RBC Hgb POC Hgb Hct POC Hct MCV MCH MCHC RDW Plt Count Lymph % (Auto) [place] % (Auto) Lymph # [place] # Seg Neutrophils % Seg Neutrophils # PT INR APTT Activated Clotting Time D-Dimer Heparin Anti-Xa Level < 0.10 L POC ABG pH POC ABG pCO2 POC ABG pO2 Sodium Potassium 5.4 H Chloride 110.8 H Carbon Dioxide 18 L BUN 30 H Creatinine 2.5 H D Glucose 216 H POC Glucose 235 H Lactic Acid Calcium 5.7 L* Total Bilirubin AST ALT C-Reactive Protein Total Protein Albumin Ur Specific [place] Urine WBC (Auto) Miscellaneous Test Crossmatch 08/13/17 08/13/17 08/13/17 05:46 05:46 06:06 WBC 14.6 H RBC 2.49 L Hgb 7.6 L POC Hgb Hct 22.3 L D POC Hct MCV MCH MCHC RDW 15.7 H Plt Count 78 L Lymph % (Auto) 10.3 L [place] % (Auto) Lymph # [place] # Seg Neutrophils % 84.1 H Seg Neutrophils # 12.3 H PT INR APTT Activated Clotting Time D-Dimer Heparin Anti-Xa Level POC ABG pH 7.282 L POC ABG pCO2 POC ABG pO2 Sodium Potassium Chloride 107.5 H Carbon Dioxide 19 L BUN 35 H Creatinine 2.9 H Glucose 242 H POC Glucose Lactic Acid Calcium 6.3 L Total Bilirubin AST 1304 H ALT 533 H C-Reactive Protein Total Protein 4.4 L Albumin 2.8 L Ur Specific [place] Urine WBC (Auto) Miscellaneous Test Crossmatch 08/13/17 08/13/17 08/13/17 07:10 07:10 09:00 WBC RBC Hgb POC Hgb Hct POC Hct MCV MCH MCHC RDW Plt Count Lymph % (Auto) [place] % (Auto) Lymph # [place] # Seg Neutrophils % Seg Neutrophils # PT 17.4 H INR 1.35 H APTT Activated Clotting Time D-Dimer 598.44 H Heparin Anti-Xa Level POC ABG pH POC ABG pCO2 POC ABG pO2 Sodium Potassium Chloride 107.2 H Carbon Dioxide 19 L BUN 35 H Creatinine 2.8 H Glucose 240 H POC Glucose Lactic Acid 3.10 H* Calcium 6.2 L Total Bilirubin AST ALT C-Reactive Protein Total Protein Albumin Ur Specific [place] Urine WBC (Auto) Miscellaneous Test Crossmatch 08/13/17 08/13/17 08/13/17 17:55 18:31 21:19 WBC RBC Hgb POC Hgb Hct POC Hct MCV MCH MCHC RDW Plt Count Lymph % (Auto) [place] % (Auto) Lymph # [place] # Seg Neutrophils % Seg Neutrophils # PT INR APTT Activated Clotting Time D-Dimer Heparin Anti-Xa Level POC ABG pH 7.451 H POC ABG pCO2 33.0 L POC ABG pO2 53 L Sodium Potassium Chloride Carbon Dioxide BUN Creatinine Glucose POC Glucose 247 H Lactic Acid 2.20 H* Calcium Total Bilirubin AST ALT C-Reactive Protein Total Protein Albumin Ur Specific [place] Urine WBC (Auto) Miscellaneous Test Crossmatch 08/13/17 08/14/17 08/14/17 23:34 00:10 05:00 WBC RBC Hgb POC Hgb Hct POC Hct MCV MCH MCHC RDW Plt Count Lymph % (Auto) [place] % (Auto) Lymph # [place] # Seg Neutrophils % Seg Neutrophils # PT 15.7 H INR 1.18 H APTT Activated Clotting Time D-Dimer 950.64 H Heparin Anti-Xa Level POC ABG pH POC ABG pCO2 POC ABG pO2 Sodium Potassium Chloride Carbon Dioxide BUN Creatinine Glucose POC Glucose 237 H Lactic Acid 2.70 H* Calcium Total Bilirubin AST ALT C-Reactive Protein Total Protein Albumin Ur Specific [place] Urine WBC (Auto) Miscellaneous Test Crossmatch 08/14/17 08/14/17 08/14/17 05:00 05:11 10:26 WBC 14.2 H RBC 2.66 L Hgb 7.9 L POC Hgb Hct 23.2 L POC Hct MCV MCH MCHC RDW 16.0 H Plt Count 75 L Lymph % (Auto) [place] % (Auto) Lymph # [place] # Seg Neutrophils % Seg Neutrophils # PT INR APTT Activated Clotting Time D-Dimer Heparin Anti-Xa Level POC ABG pH POC ABG pCO2 POC ABG pO2 78 L Sodium Potassium Chloride Carbon Dioxide BUN Creatinine Glucose POC Glucose 227 H Lactic Acid Calcium Total Bilirubin AST ALT C-Reactive Protein Total Protein Albumin Ur Specific [place] Urine WBC (Auto) Miscellaneous Test Crossmatch 08/14/17 08/14/17 08/14/17 11:28 11:28 12:06 WBC RBC Hgb POC Hgb Hct POC Hct MCV MCH MCHC RDW Plt Count Lymph % (Auto) [place] % (Auto) Lymph # [place] # Seg Neutrophils % Seg Neutrophils # PT INR APTT Activated Clotting Time D-Dimer Heparin Anti-Xa Level POC ABG pH POC ABG pCO2 POC ABG pO2 Sodium Potassium Chloride Carbon Dioxide BUN 43 H Creatinine 3.6 H Glucose 209 H POC Glucose 219 H Lactic Acid Calcium 7.6 L D Total Bilirubin AST ALT C-Reactive Protein 29.00 H Total Protein Albumin Ur Specific [place] Urine WBC (Auto) Miscellaneous Test Crossmatch 08/14/17 08/14/17 08/14/17 17:57 19:54 23:23 WBC RBC Hgb POC Hgb Hct POC Hct MCV MCH MCHC RDW Plt Count Lymph % (Auto) [place] % (Auto) Lymph # [place] # Seg Neutrophils % Seg Neutrophils # PT INR APTT Activated Clotting Time D-Dimer Heparin Anti-Xa Level POC ABG pH POC ABG pCO2 46.5 H POC ABG pO2 64 L Sodium Potassium Chloride Carbon Dioxide BUN Creatinine Glucose POC Glucose 178 H 170 H Lactic Acid Calcium Total Bilirubin AST ALT C-Reactive Protein Total Protein Albumin Ur Specific [place] Urine WBC (Auto) Miscellaneous Test Crossmatch 08/15/17 08/15/17 08/15/17 03:44 04:40 05:19 WBC 12.6 H RBC 2.49 L Hgb 7.4 L POC Hgb Hct 22.1 L POC Hct MCV MCH MCHC RDW 16.5 H Plt Count 64 L Lymph % (Auto) [place] % (Auto) Lymph # [place] # Seg Neutrophils % Seg Neutrophils # PT INR APTT Activated Clotting Time D-Dimer Heparin Anti-Xa Level POC ABG pH POC ABG pCO2 48.1 H POC ABG pO2 68 L Sodium Potassium Chloride Carbon Dioxide BUN Creatinine Glucose POC Glucose 154 H Lactic Acid Calcium Total Bilirubin AST ALT C-Reactive Protein Total Protein Albumin Ur Specific [place] Urine WBC (Auto) Miscellaneous Test Crossmatch 08/15/17 08/15/17 08/15/17 12:20 13:22 18:05 WBC RBC Hgb POC Hgb Hct POC Hct MCV MCH MCHC RDW Plt Count Lymph % (Auto) [place] % (Auto) Lymph # [place] # Seg Neutrophils % Seg Neutrophils # PT INR APTT Activated Clotting Time D-Dimer Heparin Anti-Xa Level POC ABG pH POC ABG pCO2 POC ABG pO2 Sodium Potassium Chloride Carbon Dioxide BUN 45 H Creatinine 4.1 H Glucose 141 H POC Glucose 147 H 170 H Lactic Acid Calcium 7.8 L Total Bilirubin AST ALT C-Reactive Protein Total Protein Albumin Ur Specific [place] Urine WBC (Auto) Miscellaneous Test Crossmatch 08/15/17 08/16/17 08/16/17 23:43 04:42 05:22 WBC 14.2 H RBC 2.54 L Hgb 7.5 L POC Hgb Hct 22.6 L POC Hct MCV MCH MCHC RDW 16.4 H Plt Count 73 L Lymph % (Auto) 6.6 L [place] % (Auto) 10.1 H Lymph # 0.9 L [place] # 1.4 H Seg Neutrophils % 83.1 H Seg Neutrophils # 11.8 H PT INR APTT Activated Clotting Time D-Dimer Heparin Anti-Xa Level POC ABG pH POC ABG pCO2 POC ABG pO2 71 L Sodium Potassium Chloride Carbon Dioxide BUN Creatinine Glucose POC Glucose 155 H Lactic Acid Calcium Total Bilirubin AST ALT C-Reactive Protein Total Protein Albumin Ur Specific [place] Urine WBC (Auto) Miscellaneous Test Crossmatch 08/16/17 08/16/17 08/16/17 06:20 08:49 11:54 WBC RBC Hgb POC Hgb Hct POC Hct MCV MCH MCHC RDW Plt Count Lymph % (Auto) [place] % (Auto) Lymph # [place] # Seg Neutrophils % Seg Neutrophils # PT INR APTT Activated Clotting Time D-Dimer Heparin Anti-Xa Level POC ABG pH POC ABG pCO2 POC ABG pO2 Sodium Potassium Chloride Carbon Dioxide BUN Creatinine Glucose POC Glucose 165 H 191 H 188 H Lactic Acid Calcium Total Bilirubin AST ALT C-Reactive Protein Total Protein Albumin Ur Specific [place] Urine WBC (Auto) Miscellaneous Test Crossmatch 08/16/17 08/16/17 08/16/17 13:00 18:32 23:33 WBC RBC Hgb POC Hgb Hct POC Hct MCV MCH MCHC RDW Plt Count Lymph % (Auto) [place] % (Auto) Lymph # [place] # Seg Neutrophils % Seg Neutrophils # PT INR APTT Activated Clotting Time D-Dimer Heparin Anti-Xa Level POC ABG pH POC ABG pCO2 POC ABG pO2 Sodium Potassium Chloride Carbon Dioxide BUN 47 H Creatinine 3.4 H Glucose 179 H POC Glucose 219 H 179 H Lactic Acid Calcium 8.2 L Total Bilirubin AST ALT C-Reactive Protein Total Protein Albumin Ur Specific [place] Urine WBC (Auto) Miscellaneous Test Crossmatch 08/17/17 08/17/17 08/17/17 04:25 04:30 05:32 WBC 15.2 H RBC 2.60 L Hgb 7.6 L POC Hgb Hct 23.8 L POC Hct MCV MCH MCHC RDW 16.3 H Plt Count 92 L Lymph % (Auto) [place] % (Auto) Lymph # [place] # Seg Neutrophils % Seg Neutrophils # PT INR APTT Activated Clotting Time D-Dimer Heparin Anti-Xa Level POC ABG pH POC ABG pCO2 POC ABG pO2 57 L Sodium Potassium Chloride Carbon Dioxide BUN 63 H Creatinine 3.4 H Glucose 155 H POC Glucose Lactic Acid Calcium 8.3 L Total Bilirubin 1.40 H AST 99 H ALT 93 H C-Reactive Protein Total Protein 5.6 L D Albumin 3.1 L Ur Specific [place] Urine WBC (Auto) Miscellaneous Test Crossmatch 08/17/17 08/17/17 08/17/17 06:36 12:37 17:44 WBC RBC Hgb POC Hgb Hct POC Hct MCV MCH MCHC RDW Plt Count Lymph % (Auto) [place] % (Auto) Lymph # [place] # Seg Neutrophils % Seg Neutrophils # PT INR APTT Activated Clotting Time D-Dimer Heparin Anti-Xa Level POC ABG pH POC ABG pCO2 POC ABG pO2 Sodium Potassium Chloride Carbon Dioxide BUN Creatinine Glucose POC Glucose 167 H 203 H 158 H Lactic Acid Calcium Total Bilirubin AST ALT C-Reactive Protein Total Protein Albumin Ur Specific [place] Urine WBC (Auto) Miscellaneous Test Crossmatch 08/17/17 08/18/17 08/18/17 23:55 04:30 05:57 WBC RBC 2.40 L Hgb 7.3 L POC Hgb Hct 21.8 L POC Hct MCV MCH MCHC RDW 16.3 H Plt Count 95 L Lymph % (Auto) [place] % (Auto) Lymph # [place] # Seg Neutrophils % Seg Neutrophils # PT INR APTT Activated Clotting Time D-Dimer Heparin Anti-Xa Level POC ABG pH POC ABG pCO2 POC ABG pO2 Sodium Potassium Chloride Carbon Dioxide BUN Creatinine Glucose POC Glucose 146 H 179 H Lactic Acid Calcium Total Bilirubin AST ALT C-Reactive Protein Total Protein Albumin Ur Specific [place] Urine WBC (Auto) Miscellaneous Test Crossmatch 0408/18/17 08/18/17 08:20 08:20 08:32 WBC RBC Hgb POC Hgb Hct POC Hct MCV MCH MCHC RDW Plt Count Lymph % (Auto) [place] % (Auto) Lymph # [place] # Seg Neutrophils % Seg Neutrophils # PT INR APTT Activated Clotting Time D-Dimer Heparin Anti-Xa Level POC ABG pH POC ABG pCO2 POC ABG pO2 Sodium 146 H Potassium Chloride 108.4 H Carbon Dioxide BUN 62 H Creatinine 2.4 H Glucose 125 H POC Glucose 161 H Lactic Acid Calcium Total Bilirubin AST ALT C-Reactive Protein 13.90 H Total Protein Albumin Ur Specific [place] Urine WBC (Auto) Miscellaneous Test Crossmatch 08/18/17 08/18/17 08/18/17 11:33 17:18 23:31 WBC RBC Hgb POC Hgb Hct POC Hct MCV MCH MCHC RDW Plt Count Lymph % (Auto) [place] % (Auto) Lymph # [place] # Seg Neutrophils % Seg Neutrophils # PT INR APTT Activated Clotting Time D-Dimer Heparin Anti-Xa Level POC ABG pH POC ABG pCO2 POC ABG pO2 Sodium Potassium Chloride Carbon Dioxide BUN Creatinine Glucose POC Glucose 165 H 126 H 166 H Lactic Acid Calcium Total Bilirubin AST ALT C-Reactive Protein Total Protein Albumin Ur Specific [place] Urine WBC (Auto) Miscellaneous Test Crossmatch 08/19/17 08/19/17 08/19/17 04:33 05:00 05:44 WBC RBC 1.69 L Hgb 5.1 L* POC Hgb Hct 15.9 L* POC Hct MCV 95 H MCH MCHC RDW 17.1 H Plt Count 75 L Lymph % (Auto) [place] % (Auto) Lymph # [place] # Seg Neutrophils % Seg Neutrophils # PT INR APTT Activated Clotting Time D-Dimer Heparin Anti-Xa Level POC ABG pH POC ABG pCO2 POC ABG pO2 65 L Sodium Potassium Chloride Carbon Dioxide BUN Creatinine Glucose POC Glucose 174 H Lactic Acid Calcium Total Bilirubin AST ALT C-Reactive Protein Total Protein Albumin Ur Specific [place] Urine WBC (Auto) Miscellaneous Test Crossmatch 08/19/17 08/19/17 08/19/17 08:26 09:45 11:05 WBC RBC Hgb 8.8 L D POC Hgb Hct 26.7 L D POC Hct MCV MCH MCHC RDW Plt Count Lymph % (Auto) [place] % (Auto) Lymph # [place] # Seg Neutrophils % Seg Neutrophils # PT INR APTT Activated Clotting Time D-Dimer Heparin Anti-Xa Level POC ABG pH POC ABG pCO2 POC ABG pO2 Sodium 151 H Potassium 3.3 L Chloride 112.5 H Carbon Dioxide BUN 65 H Creatinine 1.6 H Glucose 145 H POC Glucose Lactic Acid Calcium 7.9 L Total Bilirubin AST ALT C-Reactive Protein Total Protein Albumin Ur Specific [place] Urine WBC (Auto) Miscellaneous Test Crossmatch See Detail 08/19/17 08/19/17 08/19/17 11:34 18:02 23:37 WBC RBC Hgb POC Hgb Hct POC Hct MCV MCH MCHC RDW Plt Count Lymph % (Auto) [place] % (Auto) Lymph # [place] # Seg Neutrophils % Seg Neutrophils # PT INR APTT Activated Clotting Time D-Dimer Heparin Anti-Xa Level POC ABG pH POC ABG pCO2 POC ABG pO2 Sodium Potassium Chloride Carbon Dioxide BUN Creatinine Glucose POC Glucose 166 H 224 H 222 H Lactic Acid Calcium Total Bilirubin AST ALT C-Reactive Protein Total Protein Albumin Ur Specific [place] Urine WBC (Auto) Miscellaneous Test Crossmatch 08/20/17 08/20/17 08/20/17 04:26 04:45 04:45 WBC 14.4 H RBC 2.97 L Hgb 8.9 L POC Hgb Hct 26.9 L POC Hct MCV MCH MCHC RDW 16.8 H Plt Count Lymph % (Auto) [place] % (Auto) Lymph # [place] # Seg Neutrophils % Seg Neutrophils # PT INR APTT Activated Clotting Time D-Dimer Heparin Anti-Xa Level POC ABG pH 7.497 H POC ABG pCO2 33.4 L POC ABG pO2 68 L Sodium 153 H Potassium Chloride 112.8 H Carbon Dioxide BUN 71 H Creatinine 1.7 H Glucose 244 H POC Glucose Lactic Acid Calcium Total Bilirubin AST ALT C-Reactive Protein Total Protein Albumin Ur Specific [place] Urine WBC (Auto) Miscellaneous Test Crossmatch 08/20/17 08/20/17 08/20/17 05:42 12:25 12:31 WBC RBC Hgb POC Hgb Hct POC Hct MCV MCH MCHC RDW Plt Count Lymph % (Auto) [place] % (Auto) Lymph # [place] # Seg Neutrophils % Seg Neutrophils # PT INR APTT Activated Clotting Time D-Dimer Heparin Anti-Xa Level POC ABG pH POC ABG pCO2 POC ABG pO2 Sodium Potassium Chloride Carbon Dioxide BUN Creatinine Glucose POC Glucose 224 H 274 H Lactic Acid Calcium Total Bilirubin AST ALT C-Reactive Protein Total Protein Albumin Ur Specific [place] Urine WBC (Auto) Miscellaneous Test Flexitest 1 H Crossmatch 08/20/17 08/20/17 08/20/17 17:56 22:25 23:52 WBC RBC Hgb POC Hgb Hct POC Hct MCV MCH MCHC RDW Plt Count Lymph % (Auto) [place] % (Auto) Lymph # [place] # Seg Neutrophils % Seg Neutrophils # PT INR APTT Activated Clotting Time D-Dimer Heparin Anti-Xa Level POC ABG pH POC ABG pCO2 POC ABG pO2 Sodium Potassium Chloride Carbon Dioxide BUN Creatinine Glucose POC Glucose 267 H 241 H Lactic Acid Calcium Total Bilirubin AST ALT C-Reactive Protein 22.10 H Total Protein Albumin Ur Specific [place] Urine WBC (Auto) Miscellaneous Test Crossmatch 08/21/17 08/21/17 08/21/17 04:15 04:15 05:50 WBC 13.3 H RBC 2.84 L Hgb 8.3 L POC Hgb Hct 26.8 L POC Hct MCV MCH MCHC 31 L RDW 17.8 H Plt Count Lymph % (Auto) [place] % (Auto) Lymph # [place] # Seg Neutrophils % Seg Neutrophils # PT INR APTT Activated Clotting Time D-Dimer Heparin Anti-Xa Level POC ABG pH POC ABG pCO2 POC ABG pO2 Sodium 158 H Potassium 3.2 L Chloride 118.8 H Carbon Dioxide BUN 74 H Creatinine 1.8 H Glucose 227 H POC Glucose 230 H Lactic Acid Calcium Total Bilirubin AST ALT C-Reactive Protein Total Protein Albumin Ur Specific [place] Urine WBC (Auto) Miscellaneous Test Crossmatch 08/21/17 08/21/17 08/21/17 06:23 11:04 11:44 WBC RBC Hgb POC Hgb Hct POC Hct MCV MCH MCHC RDW Plt Count Lymph % (Auto) [place] % (Auto) Lymph # [place] # Seg Neutrophils % Seg Neutrophils # PT INR APTT Activated Clotting Time D-Dimer Heparin Anti-Xa Level POC ABG pH POC ABG pCO2 46.6 H POC ABG pO2 74 L 52 L Sodium Potassium Chloride Carbon Dioxide BUN Creatinine Glucose POC Glucose 327 H Lactic Acid Calcium Total Bilirubin AST ALT C-Reactive Protein Total Protein Albumin Ur Specific [place] Urine WBC (Auto) Miscellaneous Test Crossmatch 08/21/17 08/21/17 08/22/17 12:34 18:08 00:28 WBC RBC Hgb POC Hgb Hct POC Hct MCV MCH MCHC RDW Plt Count Lymph % (Auto) [place] % (Auto) Lymph # [place] # Seg Neutrophils % Seg Neutrophils # PT INR APTT Activated Clotting Time D-Dimer Heparin Anti-Xa Level POC ABG pH POC ABG pCO2 POC ABG pO2 Sodium Potassium Chloride Carbon Dioxide BUN Creatinine Glucose POC Glucose 285 H 262 H 252 H Lactic Acid Calcium Total Bilirubin AST ALT C-Reactive Protein Total Protein Albumin Ur Specific [place] Urine WBC (Auto) Miscellaneous Test Crossmatch 08/22/17 08/22/17 08/22/17 06:20 07:15 12:11 WBC RBC Hgb POC Hgb Hct POC Hct MCV MCH MCHC RDW Plt Count Lymph % (Auto) [place] % (Auto) Lymph # [place] # Seg Neutrophils % Seg Neutrophils # PT INR APTT Activated Clotting Time D-Dimer Heparin Anti-Xa Level POC ABG pH POC ABG pCO2 POC ABG pO2 Sodium 156 H Potassium 3.2 L Chloride 117.4 H Carbon Dioxide BUN 71 H Creatinine 1.6 H Glucose 217 H POC Glucose 231 H 246 H Lactic Acid Calcium 8.3 L Total Bilirubin AST ALT C-Reactive Protein Total Protein Albumin Ur Specific [place] Urine WBC (Auto) Miscellaneous Test Crossmatch 08/22/17 08/22/17 08/23/17 17:15 19:47 00:13 WBC RBC Hgb POC Hgb Hct POC Hct MCV MCH MCHC RDW Plt Count Lymph % (Auto) [place] % (Auto) Lymph # [place] # Seg Neutrophils % Seg Neutrophils # PT INR APTT Activated Clotting Time D-Dimer Heparin Anti-Xa Level POC ABG pH POC ABG pCO2 POC ABG pO2 67 L Sodium Potassium Chloride Carbon Dioxide BUN Creatinine Glucose POC Glucose 227 H 225 H Lactic Acid Calcium Total Bilirubin AST ALT C-Reactive Protein Total Protein Albumin Ur Specific [place] Urine WBC (Auto) Miscellaneous Test Crossmatch 08/23/17 08/23/17 08/23/17 06:20 06:20 11:07 WBC 13.8 H RBC 2.72 L Hgb 8.1 L POC Hgb Hct 25.7 L POC Hct MCV 95 H MCH MCHC RDW 17.8 H Plt Count Lymph % (Auto) [place] % (Auto) Lymph # [place] # Seg Neutrophils % Seg Neutrophils # PT INR APTT Activated Clotting Time D-Dimer Heparin Anti-Xa Level POC ABG pH POC ABG pCO2 POC ABG pO2 Sodium 155 H Potassium Chloride 118.5 H Carbon Dioxide BUN 64 H Creatinine Glucose 202 H POC Glucose 253 H Lactic Acid Calcium 8.2 L Total Bilirubin 1.50 H AST ALT C-Reactive Protein Total Protein 4.9 L Albumin 2.5 L Ur Specific [place] Urine WBC (Auto) Miscellaneous Test Crossmatch 08/23/17 08/23/17 08/24/17 15:40 17:13 00:13 WBC RBC Hgb POC Hgb Hct POC Hct MCV MCH MCHC RDW Plt Count Lymph % (Auto) [place] % (Auto) Lymph # [place] # Seg Neutrophils % Seg Neutrophils # PT INR APTT Activated Clotting Time D-Dimer Heparin Anti-Xa Level POC ABG pH POC ABG pCO2 POC ABG pO2 65 L Sodium Potassium Chloride Carbon Dioxide BUN Creatinine Glucose POC Glucose 236 H 170 H Lactic Acid Calcium Total Bilirubin AST ALT C-Reactive Protein Total Protein Albumin Ur Specific [place] Urine WBC (Auto) Miscellaneous Test Crossmatch 08/24/17 08/24/17 08/24/17 06:20 06:20 11:16 WBC 15.3 H RBC 2.87 L Hgb 8.6 L POC Hgb Hct 27.5 L POC Hct MCV 96 H MCH MCHC 31 L RDW 17.6 H Plt Count Lymph % (Auto) [place] % (Auto) Lymph # [place] # Seg Neutrophils % Seg Neutrophils # PT INR APTT Activated Clotting Time D-Dimer Heparin Anti-Xa Level POC ABG pH POC ABG pCO2 POC ABG pO2 Sodium 156 H Potassium Chloride 118.7 H Carbon Dioxide BUN 60 H Creatinine Glucose 163 H POC Glucose 212 H Lactic Acid Calcium Total Bilirubin AST ALT C-Reactive Protein Total Protein Albumin Ur Specific [place] Urine WBC (Auto) Miscellaneous Test Crossmatch 08/24/17 08/24/17 08/24/17 11:43 16:52 16:59 WBC RBC Hgb POC Hgb Hct POC Hct MCV MCH MCHC RDW Plt Count Lymph % (Auto) [place] % (Auto) Lymph # [place] # Seg Neutrophils % Seg Neutrophils # PT 15.1 H INR APTT Activated Clotting Time D-Dimer Heparin Anti-Xa Level POC ABG pH POC ABG pCO2 POC ABG pO2 59 L Sodium Potassium Chloride Carbon Dioxide BUN Creatinine Glucose POC Glucose 250 H Lactic Acid Calcium Total Bilirubin AST ALT C-Reactive Protein Total Protein Albumin Ur Specific [place] Urine WBC (Auto) Miscellaneous Test Crossmatch 08/24/17 08/25/17 08/25/17 23:46 04:21 05:45 WBC RBC Hgb POC Hgb Hct POC Hct MCV MCH MCHC RDW Plt Count Lymph % (Auto) [place] % (Auto) Lymph # [place] # Seg Neutrophils % Seg Neutrophils # PT INR APTT Activated Clotting Time D-Dimer Heparin Anti-Xa Level POC ABG pH 7.461 H POC ABG pCO2 POC ABG pO2 Sodium Potassium Chloride Carbon Dioxide BUN Creatinine Glucose POC Glucose 255 H 252 H Lactic Acid Calcium Total Bilirubin AST ALT C-Reactive Protein Total Protein Albumin Ur Specific [place] Urine WBC (Auto) Miscellaneous Test Crossmatch 08/25/17 08/25/17 08/25/17 08:38 08:38 12:08 WBC 17.1 H RBC 2.75 L Hgb 8.4 L POC Hgb Hct 26.4 L POC Hct MCV 96 H MCH MCHC RDW 17.7 H Plt Count Lymph % (Auto) [place] % (Auto) Lymph # [place] # Seg Neutrophils % Seg Neutrophils # PT INR APTT Activated Clotting Time D-Dimer Heparin Anti-Xa Level POC ABG pH POC ABG pCO2 POC ABG pO2 Sodium 152 H Potassium 3.4 L Chloride 115.6 H Carbon Dioxide BUN 66 H Creatinine Glucose 297 H POC Glucose 245 H Lactic Acid Calcium 8.2 L Total Bilirubin AST ALT C-Reactive Protein Total Protein Albumin Ur Specific [place] Urine WBC (Auto) Miscellaneous Test Crossmatch Allied health notes reviewed: RT
[2017-08-25] MEDS: D5W 1,000 ML IV SCH (18:00)
[2017-08-26] MEDS: HumaLOG SUB-Q SCH ×4 (00:23→18:31)
[2017-08-26] MEDS: MORPHINE IV PRN (00:27)
[2017-08-26] MEDS: HEPARIN SUB-Q SCH ×3 (06:58→22:03)
[2017-08-26] MEDS: MAXIPIME 2 GM in NACL 0.9% 20 ML IV SCH ×3 (06:59→22:05)
--- NOTE | 2017-08-26 07:23 | Progress Note ---
Assessment and Plan - Patient Problems (1) Respiratory failure Current Visit: Yes Status: Acute Plan to address problem: s/p Trach/PEG - 08/24/17 -POD#2. Pt with mild abdominal distention. does not appears to be surgical complication as abdomen is very benign. Probably ileus. Pt has not had regular bowel movements. Rec: 1) Vent PEG tube q4h 2) Run TF at trickle feeds until bowel function returns. 3) Consider reglan and/or EES 4) dulcolax supp Please call with any questions. Subjective Date of service: 08/26/17 Patient Reports: Positive: still having pain (patient indicates that abdomen still bothers him), no flatus (per staff), no bowel movement, other (residuals have been minimal, but greenish in color) Objective Vital Signs - 12hr 08/25/17 08/25/17 08/25/17 19:31 19:33 19:39 Temperature Pulse Rate 108 H 115 H Pulse Rate [ From Monitor] Respiratory 19 Rate Blood Pressure 139/73 139/73 O2 Sat by Pulse 99 99 Oximetry O2 Sat by Pulse 97 Oximetry [ Assessment] 08/25/17 08/25/17 08/25/17 20:00 20:01 20:31 Temperature 99.5 F Pulse Rate 119 H 106 H Pulse Rate [ 119 H From Monitor] Respiratory 22 11 L 22 Rate Blood Pressure 152/74 149/66 O2 Sat by Pulse 99 98 99 Oximetry O2 Sat by Pulse Oximetry [ Assessment] 08/25/17 08/25/17 08/25/17 21:01 21:31 22:00 Temperature Pulse Rate 115 H 119 H 112 H Pulse Rate [ From Monitor] Respiratory 16 18 21 Rate Blood Pressure 150/68 155/74 151/70 O2 Sat by Pulse 99 99 99 Oximetry O2 Sat by Pulse Oximetry [ Assessment] 08/25/17 08/25/17 08/25/17 22:31 23:00 23:05 Temperature Pulse Rate 131 H 112 H 109 H Pulse Rate [ From Monitor] Respiratory 19 18 Rate Blood Pressure 143/77 159/69 159/69 O2 Sat by Pulse 98 98 Oximetry O2 Sat by Pulse Oximetry [ Assessment] 08/25/17 08/25/17 08/25/17 23:07 23:08 23:15 Temperature Pulse Rate 122 H 109 H 122 H Pulse Rate [ From Monitor] Respiratory 16 Rate Blood Pressure 146/65 159/69 159/69 O2 Sat by Pulse 98 99 Oximetry O2 Sat by Pulse Oximetry [ Assessment] 08/25/17 08/26/17 08/26/17 23:31 00:00 00:01 Temperature 99.8 F H Pulse Rate 111 H 114 H Pulse Rate [ 114 H From Monitor] Respiratory 18 22 20 Rate Blood Pressure 133/63 132/66 O2 Sat by Pulse 99 99 100 Oximetry O2 Sat by Pulse Oximetry [ Assessment] 08/26/17 08/26/17 08/26/17 00:31 01:01 01:31 Temperature Pulse Rate 118 H 115 H 114 H Pulse Rate [ From Monitor] Respiratory 22 22 19 Rate Blood Pressure 130/72 152/62 149/70 O2 Sat by Pulse 100 99 99 Oximetry O2 Sat by Pulse Oximetry [ Assessment] 08/26/17 08/26/17 08/26/17 02:00 02:31 03:00 Temperature Pulse Rate 114 H 109 H 111 H Pulse Rate [ From Monitor] Respiratory 21 23 13 Rate Blood Pressure 129/59 137/65 130/70 O2 Sat by Pulse 99 99 100 Oximetry O2 Sat by Pulse Oximetry [ Assessment] 08/26/17 08/26/17 08/26/17 03:31 03:46 04:00 Temperature 98 F Pulse Rate 106 H 102 H Pulse Rate [ 108 H From Monitor] Respiratory 19 22 Rate Blood Pressure 130/70 133/70 O2 Sat by Pulse 98 99 Oximetry O2 Sat by Pulse 99 Oximetry [ Assessment] 08/26/17 08/26/17 04:01 04:31 Temperature Pulse Rate 110 H 110 H Pulse Rate [ From Monitor] Respiratory 16 19 Rate Blood Pressure 133/70 127/68 O2 Sat by Pulse 98 99 Oximetry O2 Sat by Pulse Oximetry [ Assessment] - General physical appearance no distress, no pain, other (awake.) - Neck other (trach in place. No drainage. ) - Respiratory normal expansion, normal respiratory effort - Abdomen soft, tender (patient indicates generalized discomfort), bowel sounds hypoactive (improving), distended (tympanitic over stomach area), not guarding, not rigid, other (PEG in place. Was on tension when I entered room. Showed nurse. ) - Labs 08/25/17 08:38 08/25/17 08:38 Diabetes panel 08/25/17 Range/Units 08:38 Sodium 152 H (137-145) mmol/L Potassium 3.4 L (3.6-5.0) mmol/L Chloride 115.6 H (98-107) mmol/L Carbon Dioxide 25 (22-30) mmol/L BUN 66 H (9-20) mg/dL Creatinine 1.3 (0.8-1.5) mg/dL Glucose 297 H (75-100) mg/dL Calcium 8.2 L (8.4-10.2) mg/dL Calcium panel 08/25/17 Range/Units 08:38 Calcium 8.2 L (8.4-10.2) mg/dL Pituitary panel 08/25/17 Range/Units 08:38 Sodium 152 H (137-145) mmol/L Potassium 3.4 L (3.6-5.0) mmol/L Chloride 115.6 H (98-107) mmol/L Carbon Dioxide 25 (22-30) mmol/L BUN 66 H (9-20) mg/dL Creatinine 1.3 (0.8-1.5) mg/dL Glucose 297 H (75-100) mg/dL Calcium 8.2 L (8.4-10.2) mg/dL Adrenal panel 08/25/17 Range/Units 08:38 Sodium 152 H (137-145) mmol/L Potassium 3.4 L (3.6-5.0) mmol/L Chloride 115.6 H (98-107) mmol/L Carbon Dioxide 25 (22-30) mmol/L BUN 66 H (9-20) mg/dL Creatinine 1.3 (0.8-1.5) mg/dL Glucose 297 H (75-100) mg/dL Calcium 8.2 L (8.4-10.2) mg/dL
[2017-08-26 08:13] LABS: Calcium 8.1 mg/dL (8.4-10.2)
[2017-08-26] MEDS: APRESOLINE PO SCH ×3 (08:25→22:06)
--- NOTE | 2017-08-26 08:55 | Progress Note ---
Assessment and Plan Assessment: 1) Sepsis with intermittent hypovolemic +/- septic shock: Shock resolved, with new fever and worsening leukocytosis. Sepsis Etiology ?? unclear - possibilities VAP . CRP=22/Procal 0.3 2) Presumed VAP: CXR showed bibasilar perihilar and bibasilar opacities and right mod pleural effusion, left mild pleural effusion. 3) Acute respiratory failure: for airway protection - better 4) Acute encephalopathy: multifactorial - better 5) UTI: inital UA c/w UTI, urine cx negative. Repeat UA neg 6) Right lower extremity chronic ischemia with short distance claudication: -S/P elective right common femoral endarterectomy with patch angioplasty, bilateral common iliac and right external artery stenting on 08/11/17 7) Ruptured pseudoaneurysm left groin/external iliac: -CTA showed retroperitoneal hemorrhage and bladder thickening. -S/P deployment of new Viabond stent graft across the inguinal ligament into the common femoral artery on 08/13/17. 8) WILLIAM 9) Anasarca Plan: -obtain respiratory cultures, blood cx and CRP/Procal in view of new fever -continue vancomycin and cefepime renally dosed - D7/10 -if fever continues will obtain CT chest/abd/pelvis Thank you for your consultation, will follow up with you. Tasia Baldwin MD Infectious Diseases Specialist [facility] [phone] O [phone] Subjective Date of service: 08/26/17 Principal diagnosis: Acute Hypoxemic Respiratory Failure; Hemorrhagic Shock; WILLIAM on Dilaysis;PVD Interval history: Feels better, alert, still on the vent via trach FIO2 45% P 6, tmax 101.1. Microbiology: Blood cultures: 08/14 neg 08/20 neg Urine cultures: 08/14 neg 08/20 ngtd Current Antimicrobials: vanco 08/20 cefepime 08/20 Previous Antimicrobials: doxycycline 08/14 Objective - Exam Narrative Exam: General appearance: alert on the vent via trach Eyes: anicteric sclerae, moist conjunctivae; no lid-lag; HENT: Atraumatic; oropharynx limited Neck: Trach in place Lungs: bilateral rhonchi CV: RRR Abdomen: Soft, non-tender;+PEG Extremities: +kati marked leg edema Skin: +decreased massive scrotal edema + kati groin wounds Psych: alert Neuro: alert Lines: right IJ, left arm PICC - Constitutional Vitals: Vital Signs Temp Pulse Resp BP Pulse Ox 98.2 F 114 H 19 131/71 98 08/26/17 08:00 08/26/17 08:00 08/26/17 04:31 08/26/17 08:00 08/26/17 08:06 Temperature -Last 24 Hours Temperature 98.2 F Temperature 98 F Temperature 99.8 F Temperature 99.5 F Temperature 101.1 F Temperature 100.5 F - Labs CBC & Chem 7: 08/25/17 08:38 08/26/17 07:35 Labs: Abnormal lab results 08/25/17 08/25/17 08/25/17 Range/Units 08:38 08:38 12:08 WBC 17.1 H (4.5-11.0) K/mm3 RBC 2.75 L (3.65-5.03) M/mm3 Hgb 8.4 L (11.8-15.2) gm/dl Hct 26.4 L (35.5-45.6) % MCV 96 H (84-94) fl RDW 17.7 H (13.2-15.2) % Sodium 152 H (137-145) mmol/L Potassium 3.4 L (3.6-5.0) mmol/L Chloride 115.6 H (98-107) mmol/L BUN 66 H (9-20) mg/dL Glucose 297 H (75-100) mg/dL POC Glucose 245 H (70-105) Calcium 8.2 L (8.4-10.2) mg/dL 08/25/17 08/25/17 08/26/17 Range/Units 18:26 23:44 05:47 WBC (4.5-11.0) K/mm3 RBC (3.65-5.03) M/mm3 Hgb (11.8-15.2) gm/dl Hct (35.5-45.6) % MCV (84-94) fl RDW (13.2-15.2) % Sodium (137-145) mmol/L Potassium (3.6-5.0) mmol/L Chloride (98-107) mmol/L BUN (9-20) mg/dL Glucose (75-100) mg/dL POC Glucose 162 H 173 H 188 H (70-105) Calcium (8.4-10.2) mg/dL 08/26/17 Range/Units 07:35 WBC (4.5-11.0) K/mm3 RBC (3.65-5.03) M/mm3 Hgb (11.8-15.2) gm/dl Hct (35.5-45.6) % MCV (84-94) fl RDW (13.2-15.2) % Sodium 159 H (137-145) mmol/L Potassium 3.3 L (3.6-5.0) mmol/L Chloride 122.4 H (98-107) mmol/L BUN 61 H (9-20) mg/dL Glucose 183 H (75-100) mg/dL POC Glucose (70-105) Calcium 8.1 L (8.4-10.2) mg/dL
--- NOTE | 2017-08-26 10:07 | Progress Note ---
Assessment and Plan Patient is 66 year old male with past medical history of hypertension, Type 2 DM , hyperlipidemia, CAD, PAD, who underwent elective vascular procedure for [employer] , and is postop femoral endarterectomy and iliac artery stenting. Patient became hypotensive, giv multiple fluid resuscitation and blood products. Also began to exhibit some altered mental status for which were consulted. /Acute hypoxic respiratory failure - patient remained intubated unable to wean down secondary to altered mental status. - Attempt to wean sedation caused patient developed agitation. - s/p trach and PEG 08/24/17 /Vasogenic shock, now resolved -at present blood pressure is stable. /Acute kidney injury secondary to ATN, shock oliguria. Now resolved, Creatinine at 1.1 Patient was on hemodialysis prn, managed by Nephrology. /Hypernatremia - hypokalemia - hypotonic fluid, replete Kcl /Metabolic acidosis resolved /Fever - Repeat blood cultures drawn . ID Physician consulted, following /Thrombocytopenia , now resolved. /PVD - status post common femoral endarterectomy followed for vascular surgery /Acute Blood loss anemia- s/p massive blood transfuson. Total 14 Units PRBC /Diabetes type 2 - fairly well controlled with insulin sliding scale would not change at this particular time - cont tube feeding /Hypertension. BP elevated. Will /Acute toxic metabolic Encephalopathy: Improving, now follows commands. The high probability of a clinically significant, sudden or life threatening deterioration of the [4] system(s) required my full and direct attention, intervention and personal management. The aggregate critical care time was [32] minutes. This time is in addition to time spent performing reported procedures but includes the following: [x] Data Review and interpretation [x] Patient assessment and monitoring of vital signs [x] Documentation [x] Medication orders and management Hospitalist Physical General:Not in acute distress, lying in bed,morbidly obese,intubated HEENT:Normocephalic, atraumatic Neck:supple, trach in place Lungs:Clear to auscultation bilaterally , no rales , no wheeze Heart:S1 and S2 regular, no murmurs, rubs or gallop Abd: soft, non tender, non distended, normal bowel sounds, PEG in place Ext: leg edema, no clubbing or cyanosis Neuro: opens eyes, more alert, now follows commands, tries to talk Subjective Date of service: 05/01/18 Principal diagnosis: Acute Hypoxemic Respiratory Failure; Hemorrhagic Shock; WILLIAM on Dilaysis;PVD Interval history: Patient still intubated, 24 hr event reviewed, low grade Fever, s/p trach and PEG Discussed with RN Objective - Constitutional Vitals: Vital Signs - 12hr 08/25/17 08/25/17 08/25/17 22:31 23:00 23:05 Temperature Pulse Rate 131 H 112 H 109 H Pulse Rate [ From Monitor] Respiratory 19 18 Rate Blood Pressure 143/77 159/69 159/69 O2 Sat by Pulse 98 98 Oximetry O2 Sat by Pulse Oximetry [ Assessment] 08/25/17 08/25/17 08/25/17 23:07 23:08 23:15 Temperature Pulse Rate 122 H 109 H 122 H Pulse Rate [ From Monitor] Respiratory 16 Rate Blood Pressure 146/65 159/69 159/69 O2 Sat by Pulse 98 99 Oximetry O2 Sat by Pulse Oximetry [ Assessment] 08/25/17 08/26/17 08/26/17 23:31 00:00 00:01 Temperature 99.8 F H Pulse Rate 111 H 114 H Pulse Rate [ 114 H From Monitor] Respiratory 18 22 20 Rate Blood Pressure 133/63 132/66 O2 Sat by Pulse 99 99 100 Oximetry O2 Sat by Pulse Oximetry [ Assessment] 08/26/17 08/26/17 08/26/17 00:31 01:01 01:31 Temperature Pulse Rate 118 H 115 H 114 H Pulse Rate [ From Monitor] Respiratory 22 22 19 Rate Blood Pressure 130/72 152/62 149/70 O2 Sat by Pulse 100 99 99 Oximetry O2 Sat by Pulse Oximetry [ Assessment] 08/26/17 08/26/17 08/26/17 02:00 02:31 03:00 Temperature Pulse Rate 114 H 109 H 111 H Pulse Rate [ From Monitor] Respiratory 21 23 13 Rate Blood Pressure 129/59 137/65 130/70 O2 Sat by Pulse 99 99 100 Oximetry O2 Sat by Pulse Oximetry [ Assessment] 08/26/17 08/26/17 08/26/17 03:31 03:46 04:00 Temperature 98 F Pulse Rate 106 H 102 H Pulse Rate [ 108 H From Monitor] Respiratory 19 22 Rate Blood Pressure 130/70 133/70 O2 Sat by Pulse 98 99 Oximetry O2 Sat by Pulse 99 Oximetry [ Assessment] 08/26/17 08/26/17 08/26/17 04:01 04:31 05:00 Temperature Pulse Rate 110 H 110 H 104 H Pulse Rate [ From Monitor] Respiratory 16 19 14 Rate Blood Pressure 133/70 127/68 130/65 O2 Sat by Pulse 98 99 99 Oximetry O2 Sat by Pulse Oximetry [ Assessment] 08/26/17 08/26/17 08/26/17 05:31 06:00 06:31 Temperature Pulse Rate 103 H 86 105 H Pulse Rate [ From Monitor] Respiratory 18 20 19 Rate Blood Pressure 131/60 96/49 134/66 O2 Sat by Pulse 99 100 100 Oximetry O2 Sat by Pulse Oximetry [ Assessment] 08/26/17 08/26/17 08/26/17 07:01 07:30 08:00 Temperature 98.2 F Pulse Rate 116 H 120 H 113 H Pulse Rate [ 106 H From Monitor] Respiratory 17 13 20 Rate Blood Pressure 130/68 138/69 O2 Sat by Pulse 99 99 98 Oximetry O2 Sat by Pulse Oximetry [ Assessment] 08/26/17 08/26/17 08/26/17 08:06 08:30 09:00 Temperature Pulse Rate 103 H 106 H Pulse Rate [ From Monitor] Respiratory 21 18 Rate Blood Pressure 136/63 134/64 O2 Sat by Pulse 93 98 Oximetry O2 Sat by Pulse 98 Oximetry [ Assessment] - Labs CBC & Chem 7: 08/25/17 08:38 08/26/17 07:35 Labs: Abnormal lab results 08/25/17 08/25/17 08/25/17 Range/Units 12:08 18:26 23:44 Sodium (137-145) mmol/L Potassium (3.6-5.0) mmol/L Chloride (98-107) mmol/L BUN (9-20) mg/dL Glucose (75-100) mg/dL POC Glucose 245 H 162 H 173 H (70-105) Calcium (8.4-10.2) mg/dL 08/26/17 08/26/17 Range/Units 05:47 07:35 Sodium 159 H (137-145) mmol/L Potassium 3.3 L (3.6-5.0) mmol/L Chloride 122.4 H (98-107) mmol/L BUN 61 H (9-20) mg/dL Glucose 183 H (75-100) mg/dL POC Glucose 188 H (70-105) Calcium 8.1 L (8.4-10.2) mg/dL
--- NOTE | 2017-08-26 10:31 | Progress Note ---
Assessment and Plan - Patient Problems (1) Acute renal failure due to tubular necrosis Current Visit: Yes Status: Acute Plan to address problem: Acute renal failure / acute tubular necrosis, in recovery phase. Follow up electrolytes and renal function. (2) Hypernatremia Current Visit: Yes Status: Acute Plan to address problem: Continue D5W at 75ml/hr, increase free water flushes via PEG to 300 cc q4h (3) Hypokalemia Current Visit: Yes Status: Acute Plan to address problem: Supplement potassium and follow up levels. (4) Hemorrhagic shock Current Visit: Yes Status: Acute Plan to address problem: Status post multiple transfusions. hb stable at 8,4 (5) Metabolic acidosis Current Visit: Yes Status: Acute Plan to address problem: mostly due to hyperchloremic met acidosis. cont D5W/free water flushes (6) Hypocalcemia Current Visit: Yes Status: Acute Plan to address problem: Supplemental calcium as indicated. (7) Atherosclerosis of [place] arteries of extremity with intermittent claudication Current Visit: No Status: Acute Plan to address problem: Continue management per vascular surgeon (8) Anemia Current Visit: Yes Status: Acute Plan to address problem: Hemoglobin improved. Continue to Follow-up hemoglobin Subjective Date of service: 08/26/17 Principal diagnosis: Acute Hypoxemic Respiratory Failure; Hemorrhagic Shock; WILLIAM on Dilaysis;PVD Interval history: pt remains on vent, s/p trach/PEG. Objective - Vital Signs Vital signs: Vital Signs - 12hr 08/25/17 08/25/17 08/25/17 22:31 23:00 23:05 Temperature Pulse Rate 131 H 112 H 109 H Pulse Rate [ From Monitor] Respiratory 19 18 Rate Blood Pressure 143/77 159/69 159/69 O2 Sat by Pulse 98 98 Oximetry O2 Sat by Pulse Oximetry [ Assessment] 08/25/17 08/25/17 08/25/17 23:07 23:08 23:15 Temperature Pulse Rate 122 H 109 H 122 H Pulse Rate [ From Monitor] Respiratory 16 Rate Blood Pressure 146/65 159/69 159/69 O2 Sat by Pulse 98 99 Oximetry O2 Sat by Pulse Oximetry [ Assessment] 08/25/17 08/26/17 08/26/17 23:31 00:00 00:01 Temperature 99.8 F H Pulse Rate 111 H 114 H Pulse Rate [ 114 H From Monitor] Respiratory 18 22 20 Rate Blood Pressure 133/63 132/66 O2 Sat by Pulse 99 99 100 Oximetry O2 Sat by Pulse Oximetry [ Assessment] 08/26/17 08/26/17 08/26/17 00:31 01:01 01:31 Temperature Pulse Rate 118 H 115 H 114 H Pulse Rate [ From Monitor] Respiratory 22 22 19 Rate Blood Pressure 130/72 152/62 149/70 O2 Sat by Pulse 100 99 99 Oximetry O2 Sat by Pulse Oximetry [ Assessment] 08/26/17 08/26/17 08/26/17 02:00 02:31 03:00 Temperature Pulse Rate 114 H 109 H 111 H Pulse Rate [ From Monitor] Respiratory 21 23 13 Rate Blood Pressure 129/59 137/65 130/70 O2 Sat by Pulse 99 99 100 Oximetry O2 Sat by Pulse Oximetry [ Assessment] 08/26/17 08/26/17 08/26/17 03:31 03:46 04:00 Temperature 98 F Pulse Rate 106 H 102 H Pulse Rate [ 108 H From Monitor] Respiratory 19 22 Rate Blood Pressure 130/70 133/70 O2 Sat by Pulse 98 99 Oximetry O2 Sat by Pulse 99 Oximetry [ Assessment] 08/26/17 08/26/17 08/26/17 04:01 04:31 05:00 Temperature Pulse Rate 110 H 110 H 104 H Pulse Rate [ From Monitor] Respiratory 16 19 14 Rate Blood Pressure 133/70 127/68 130/65 O2 Sat by Pulse 98 99 99 Oximetry O2 Sat by Pulse Oximetry [ Assessment] 08/26/17 08/26/17 08/26/17 05:31 06:00 06:31 Temperature Pulse Rate 103 H 86 105 H Pulse Rate [ From Monitor] Respiratory 18 20 19 Rate Blood Pressure 131/60 96/49 134/66 O2 Sat by Pulse 99 100 100 Oximetry O2 Sat by Pulse Oximetry [ Assessment] 08/26/17 08/26/17 08/26/17 07:01 07:30 08:00 Temperature 98.2 F Pulse Rate 116 H 120 H 113 H Pulse Rate [ 106 H From Monitor] Respiratory 17 13 20 Rate Blood Pressure 130/68 138/69 O2 Sat by Pulse 99 99 98 Oximetry O2 Sat by Pulse Oximetry [ Assessment] 08/26/17 08/26/17 08/26/17 08:06 08:30 09:00 Temperature Pulse Rate 103 H 106 H Pulse Rate [ From Monitor] Respiratory 21 18 Rate Blood Pressure 136/63 134/64 O2 Sat by Pulse 93 98 Oximetry O2 Sat by Pulse 98 Oximetry [ Assessment] - General Appearance General appearance: well-developed, well-nourished, appears stated age EENT: ATNC, PERRL, mucous membranes moist Neck: no JVD Respiratory: Present: Clear to Ascultation Cardiology: regular, S1S2 Gastrointestinal: normoactive bowel sounds, distended Integumentary: no rash, other (2+ edema b/l LE ) Neurologic: no focal deficit, alert and oriented x3, strength 5/5, CN 3-12 intact Psychiatric: mood/affect appropriate, cooperative - Lab 08/25/17 08:38 08/26/17 07:35 Most recent lab results Calcium 8.1 mg/dL (8.4-10.2) L 08/26/17 07:35 Phosphorus 2.60 mg/dL (2.5-4.5) 08/24/17 06:20 Magnesium 2.10 mg/dL (1.7-2.3) 08/24/17 06:20
--- NOTE | 2017-08-26 10:47 | Progress Note ---
Assessment and Plan /Acute hypoxic respiratory failure - patient remained intubated unable to wean down secondary to altered mental status. - Attempt to wean sedation caused patient developed agitation. - s/p trach and PEG 08/24/17 /Acute toxic metabolic Encephalopathy: Improving, now follows commands. /Vasogenic shock, now resolved -at present blood pressure is stable. /Acute kidney injury secondary to ATN, shock oliguria. Now resolved, Creatinine at 1.1 Patient was on hemodialysis prn, managed by Nephrology. /Hypernatremia - hypokalemia - hypotonic fluid, replete Kcl /Metabolic acidosis resolved /Fever - Repeat blood cultures drawn . ID Physician consulted, following /Thrombocytopenia , now resolved. /PVD - status post common femoral endarterectomy followed for vascular surgery /Acute Blood loss anemia- s/p massive blood transfuson. Total 14 Units PRBC /Diabetes type 2 - fairly well controlled with insulin sliding scale would not change at this particular time - cont tube feeding /Hypertension. BP much stable with current management Brief History: Patient is 66 year old male with past medical history of hypertension, Type 2 DM , hyperlipidemia, CAD, PAD, who underwent elective vascular procedure for [employer] , and is postop femoral endarterectomy and iliac artery stenting. Patient became hypotensive, required multiple fluid resuscitation and blood products. Also began to exhibit some altered mental status for which were consulted. He was intubated and transferred to ICU, s/p trach and PEG on 08/24/17 Hospitalist Physical General:Not in acute distress, lying in bed,morbidly obese,intubated HEENT:Normocephalic, atraumatic Neck:supple, trach in place Lungs:Clear to auscultation bilaterally , no rales , no wheeze Heart:S1 and S2 regular, no murmurs, rubs or gallop Abd: soft, non tender, non distended, normal bowel sounds, PEG in place Ext: leg edema, no clubbing or cyanosis Neuro: opens eyes, more alert, now follows commands, tries to talk Subjective Date of service: 08/26/17 Principal diagnosis: Acute Hypoxemic Respiratory Failure; Hemorrhagic Shock; WILLIAM on Dilaysis;PVD Interval history: Pt seen and examined Family at bedside, updated in details 24 hr event reviewed, low grade Fever, On trach and PEG Discussed with RN Objective - Constitutional Vitals: Vital Signs - 12hr 08/25/17 08/25/17 08/25/17 23:00 23:05 23:07 Temperature Pulse Rate 112 H 109 H 122 H Pulse Rate [ From Monitor] Respiratory 18 16 Rate Blood Pressure 159/69 159/69 146/65 O2 Sat by Pulse 98 98 Oximetry O2 Sat by Pulse Oximetry [ Assessment] 08/25/17 08/25/17 08/25/17 23:08 23:15 23:31 Temperature 99.8 F H Pulse Rate 109 H 122 H 111 H Pulse Rate [ From Monitor] Respiratory 18 Rate Blood Pressure 159/69 159/69 133/63 O2 Sat by Pulse 99 99 Oximetry O2 Sat by Pulse Oximetry [ Assessment] 08/26/17 08/26/17 08/26/17 00:00 00:01 00:31 Temperature Pulse Rate 114 H 118 H Pulse Rate [ 114 H From Monitor] Respiratory 22 20 22 Rate Blood Pressure 132/66 130/72 O2 Sat by Pulse 99 100 100 Oximetry O2 Sat by Pulse Oximetry [ Assessment] 08/26/17 08/26/17 08/26/17 01:01 01:31 02:00 Temperature Pulse Rate 115 H 114 H 114 H Pulse Rate [ From Monitor] Respiratory 22 19 21 Rate Blood Pressure 152/62 149/70 129/59 O2 Sat by Pulse 99 99 99 Oximetry O2 Sat by Pulse Oximetry [ Assessment] 08/26/17 08/26/17 08/26/17 02:31 03:00 03:31 Temperature Pulse Rate 109 H 111 H 106 H Pulse Rate [ From Monitor] Respiratory 23 13 19 Rate Blood Pressure 137/65 130/70 130/70 O2 Sat by Pulse 99 100 98 Oximetry O2 Sat by Pulse Oximetry [ Assessment] 08/26/17 08/26/17 08/26/17 03:46 04:00 04:01 Temperature 98 F Pulse Rate 102 H 110 H Pulse Rate [ 108 H From Monitor] Respiratory 22 16 Rate Blood Pressure 133/70 133/70 O2 Sat by Pulse 99 98 Oximetry O2 Sat by Pulse 99 Oximetry [ Assessment] 08/26/17 08/26/17 08/26/17 04:31 05:00 05:31 Temperature Pulse Rate 110 H 104 H 103 H Pulse Rate [ From Monitor] Respiratory 19 14 18 Rate Blood Pressure 127/68 130/65 131/60 O2 Sat by Pulse 99 99 99 Oximetry O2 Sat by Pulse Oximetry [ Assessment] 08/26/17 08/26/17 08/26/17 06:00 06:31 07:01 Temperature Pulse Rate 86 105 H 116 H Pulse Rate [ From Monitor] Respiratory 20 19 17 Rate Blood Pressure 96/49 134/66 130/68 O2 Sat by Pulse 100 100 99 Oximetry O2 Sat by Pulse Oximetry [ Assessment] 08/26/17 08/26/17 08/26/17 07:30 08:00 08:06 Temperature 98.2 F Pulse Rate 120 H 113 H Pulse Rate [ 106 H From Monitor] Respiratory 13 20 Rate Blood Pressure 138/69 O2 Sat by Pulse 99 98 Oximetry O2 Sat by Pulse 98 Oximetry [ Assessment] 08/26/17 08/26/17 08:30 09:00 Temperature Pulse Rate 103 H 106 H Pulse Rate [ From Monitor] Respiratory 21 18 Rate Blood Pressure 136/63 134/64 O2 Sat by Pulse 93 98 Oximetry O2 Sat by Pulse Oximetry [ Assessment] - Labs CBC & Chem 7: 08/25/17 08:38 08/26/17 07:35 Labs: Abnormal lab results 08/25/17 08/25/17 08/25/17 Range/Units 12:08 18:26 23:44 Sodium (137-145) mmol/L Potassium (3.6-5.0) mmol/L Chloride (98-107) mmol/L BUN (9-20) mg/dL Glucose (75-100) mg/dL POC Glucose 245 H 162 H 173 H (70-105) Calcium (8.4-10.2) mg/dL 08/26/17 08/26/17 Range/Units 05:47 07:35 Sodium 159 H (137-145) mmol/L Potassium 3.3 L (3.6-5.0) mmol/L Chloride 122.4 H (98-107) mmol/L BUN 61 H (9-20) mg/dL Glucose 183 H (75-100) mg/dL POC Glucose 188 H (70-105) Calcium 8.1 L (8.4-10.2) mg/dL
[2017-08-26] MEDS: LANTUS SUB-Q SCH (10:50)
[2017-08-26] MEDS: Centrum Liq PO SCH (10:50)
[2017-08-26] MEDS: VITAMIN B-1 PO SCH (10:50)
[2017-08-26] MEDS: BABY ASPIRIN PO SCH (10:51)
[2017-08-26] MEDS: NORVASC PO SCH (10:52)
[2017-08-26] MEDS: [UNRECOGNIZED DRUG - OTHER] OS SCH ×2 (10:53→22:04)
[2017-08-26] MEDS: OPTH OS SCH ×2 (10:53→22:04)
[2017-08-26] MEDS ORDERED: POTASSIUM CHLORIDE FEEDTUBE NR (11:00)
[2017-08-26] MEDS: COREG PO SCH ×2 (11:27→22:02)
[2017-08-26] MEDS: FOLVITE PO SCH (11:28)
[2017-08-26] MEDS: DULCOLAX PR SCH (11:28)
[2017-08-26] MEDS: PEPCID PO SCH ×2 (11:28→22:03)
[2017-08-26] MEDS: PAXIL PO SCH (11:28)
[2017-08-26] MEDS: VANCOMYCIN 2,000 MG in NACL 0.9% 500 ML 500 ML IV SCH (11:38)
[2017-08-26] MEDS ORDERED: SODIUM BICARBONATE FEEDTUBE PRN (11:41)
[2017-08-26] MEDS ORDERED: PANCREAZE DR 10,500 UNIT FEEDTUBE PRN (11:41)
[2017-08-26] MEDS ORDERED: SIMPLE SYRUP FEEDTUBE PRN ×2 (11:41)
[2017-08-26] MEDS: KCL 10MEQ/100ML 10 MEQ/100 ML BAG IV SCH ×3 (12:48→15:09)
[2017-08-26] MEDS: REGLAN IV SCH ×2 (12:49→18:31)
--- NOTE | 2017-08-26 13:28 | Progress Note ---
Assessment and Plan Acute Hypoxic Respiratory failure Tracheostomy Leukocytosis with new fevers Hypernatremia Vasogenic Shock/Septic shock WILLIAM Secondary to vasomotor nephropathy( resolved) Severe Metabolic Acidosis( resolved) Acute blood loss anemia( resolved) PVD s/p right femoral end-arterectomy Acute encephalopathy( improving) s/p Massive blood transfusion Nicotine dependence/Tobacco abuse disorder -Follow cultures which were drawn last night. Currently on Vancomycin and Cefepime. -routine trach care, airway clearance, secretion management - continue supplemental oxygen and wean to keep sats > 90% - continue to address VAP bundle daily -continue SBTs , PSV and ATC trials - continue empiric antibiotics and follow cultures-ID following - VTE and stress ulcer prophylaxis( enoxaparin, Pantoprazole) - PEG to suction, follow KUB and plan to initiate trophic feeds with promotility agents -Hypotonic solution, increase rate to 125ml/hour and follow up BMP this evening - discharge planning---LTACH Discussed care plan with ID Subjective Date of service: 08/26/17 Principal diagnosis: Acute Hypoxemic Respiratory Failure; Hemorrhagic Shock; WILLIAM on Dilaysis;PVD Interval history: Seen and examined at bedside; 24 hour events reviewed; Vitals, labs, medications, chart reviewed. Remains on MVS; AMS is much better. s/p Trach and PEG Tolerating PSV trials. Temperature spike overnight On going abdominal distension Discussed in IDT rounds Objective Vital Signs - 12hr 08/26/17 08/26/17 08/26/17 01:31 02:00 02:31 Temperature Pulse Rate 114 H 114 H 109 H Pulse Rate [ From Monitor] Respiratory 19 21 23 Rate Blood Pressure 149/70 129/59 137/65 O2 Sat by Pulse 99 99 99 Oximetry O2 Sat by Pulse Oximetry [ Assessment] 08/26/17 08/26/17 08/26/17 03:00 03:31 03:46 Temperature 98 F Pulse Rate 111 H 106 H Pulse Rate [ From Monitor] Respiratory 13 19 Rate Blood Pressure 130/70 130/70 O2 Sat by Pulse 100 98 Oximetry O2 Sat by Pulse Oximetry [ Assessment] 08/26/17 08/26/17 08/26/17 04:00 04:01 04:31 Temperature Pulse Rate 102 H 110 H 110 H Pulse Rate [ 108 H From Monitor] Respiratory 22 16 19 Rate Blood Pressure 133/70 133/70 127/68 O2 Sat by Pulse 99 98 99 Oximetry O2 Sat by Pulse 99 Oximetry [ Assessment] 08/26/17 08/26/17 08/26/17 05:00 05:31 06:00 Temperature Pulse Rate 104 H 103 H 86 Pulse Rate [ From Monitor] Respiratory 14 18 20 Rate Blood Pressure 130/65 131/60 96/49 O2 Sat by Pulse 99 99 100 Oximetry O2 Sat by Pulse Oximetry [ Assessment] 08/26/17 08/26/17 08/26/17 06:31 07:01 07:30 Temperature Pulse Rate 105 H 116 H 120 H Pulse Rate [ From Monitor] Respiratory 19 17 13 Rate Blood Pressure 134/66 130/68 O2 Sat by Pulse 100 99 99 Oximetry O2 Sat by Pulse Oximetry [ Assessment] 08/26/17 08/26/17 08/26/17 08:00 08:06 08:30 Temperature 98.2 F Pulse Rate 113 H 103 H Pulse Rate [ 106 H From Monitor] Respiratory 20 21 Rate Blood Pressure 138/69 136/63 O2 Sat by Pulse 98 93 Oximetry O2 Sat by Pulse 98 Oximetry [ Assessment] 08/26/17 08/26/17 08/26/17 09:00 09:30 10:00 Temperature Pulse Rate 106 H 107 H 112 H Pulse Rate [ From Monitor] Respiratory 18 18 16 Rate Blood Pressure 134/64 137/68 133/75 O2 Sat by Pulse 98 99 98 Oximetry O2 Sat by Pulse Oximetry [ Assessment] 08/26/17 08/26/17 08/26/17 10:30 10:52 11:00 Temperature Pulse Rate 96 H 106 H 105 H Pulse Rate [ From Monitor] Respiratory 19 17 Rate Blood Pressure 138/72 134/64 121/75 O2 Sat by Pulse 99 96 Oximetry O2 Sat by Pulse Oximetry [ Assessment] 08/26/17 08/26/17 08/26/17 11:27 11:30 12:00 Temperature 98.9 F Pulse Rate 102 H 105 H 104 H Pulse Rate [ From Monitor] Respiratory 15 20 Rate Blood Pressure 130/67 130/67 O2 Sat by Pulse 98 97 Oximetry O2 Sat by Pulse Oximetry [ Assessment] 08/26/17 08/26/17 08/26/17 12:30 12:38 12:39 Temperature Pulse Rate 109 H 93 H Pulse Rate [ From Monitor] Respiratory 21 Rate Blood Pressure 126/63 126/63 O2 Sat by Pulse 99 98 97 Oximetry O2 Sat by Pulse 98 Oximetry [ Assessment] 08/26/17 13:00 Temperature Pulse Rate 106 H Pulse Rate [ From Monitor] Respiratory 14 Rate Blood Pressure 137/67 O2 Sat by Pulse 95 Oximetry O2 Sat by Pulse Oximetry [ Assessment] Constitutional: no acute distress, alert, other (obese) Eyes: non-icteric ENT: oropharynx moist, other (s/p tracheostomy to MVS) Neck: supple, no lymphadenopathy, no JVD, other (RIJ VasCath) Effort: normal, mildly labored, other (s/p tracheostomy to vent) Ascultation: Bilateral: diminished breath sounds, rales (scant) Percussion: Bilateral: not dull Cardiovascular: regular rate and rhythm, other (No R/M) Gastrointestinal: normoactive bowel sounds, soft, non-tender, non-distended, other (s/p PEG; no palpable HSM) Integumentary: other (post-op scars) Extremities: no cyanosis, pink and warm, no ischemia or petechiae, edema (1+) Neurologic: non-focal exam (grossly), pupils equal and round Psychiatric: other (unable to assess) CBC and BMP: 08/25/17 08:38 08/26/17 07:35 ABG, PT/INR, D-dimer: ABG POC ABG pH 7.427 (7.35-7.45) 08/26/17 06:22 POC ABG pCO2 39.4 (35-45) 08/26/17 06:22 POC ABG pO2 94 (80-105) 08/26/17 06:22 POC ABG HCO3 26.0 08/26/17 06:22 POC ABG Total CO2 27 08/26/17 06:22 POC ABG O2 Sat 97 08/26/17 06:22 PT/INR, D-dimer PT 15.1 Sec. (12.2-14.9) H 08/24/17 16:52 INR 1.13 (0.87-1.13) 08/24/17 16:52 D-Dimer 950.64 ng/mlDDU (0-234) H 08/14/17 05:00 Abnormal lab findings: Abnormal Labs 08/10/17 08/10/17 08/10/17 10:05 10:05 10:05 WBC RBC Hgb POC Hgb Hct POC Hct MCV 97 H MCH 33 H MCHC RDW Plt Count Lymph % (Auto) Vance % (Auto) Lymph # Vance # Seg Neutrophils % 72.9 H Seg Neutrophils # PT 11.6 L INR 0.81 L APTT Activated Clotting Time D-Dimer Heparin Anti-Xa Level POC ABG pH POC ABG pCO2 POC ABG pO2 Sodium Potassium Chloride Carbon Dioxide BUN Creatinine 0.7 L Glucose 196 H POC Glucose Lactic Acid Calcium Total Bilirubin AST ALT C-Reactive Protein Total Protein Albumin Ur Specific [place] Urine WBC (Auto) Miscellaneous Test Crossmatch 08/11/17 08/11/17 08/11/17 06:50 07:03 09:50 WBC RBC Hgb POC Hgb Hct POC Hct MCV MCH MCHC RDW Plt Count Lymph % (Auto) Vance % (Auto) Lymph # [place] # Seg Neutrophils % Seg Neutrophils # PT INR APTT Activated Clotting Time D-Dimer Heparin Anti-Xa Level POC ABG pH 7.270 L POC ABG pCO2 49.1 H POC ABG pO2 117 H Sodium Potassium Chloride Carbon Dioxide BUN Creatinine Glucose POC Glucose 160 H Lactic Acid Calcium Total Bilirubin AST ALT C-Reactive Protein Total Protein Albumin Ur Specific [place] Urine WBC (Auto) Miscellaneous Test Crossmatch See Detail 08/11/17 08/11/17 08/11/17 10:52 11:12 12:16 WBC RBC Hgb POC Hgb Hct POC Hct MCV MCH MCHC RDW Plt Count Lymph % (Auto) Vance % (Auto) Lymph # [place] # Seg Neutrophils % Seg Neutrophils # PT INR APTT Activated Clotting Time 191 H 153 H D-Dimer Heparin Anti-Xa Level POC ABG pH POC ABG pCO2 POC ABG pO2 Sodium Potassium Chloride Carbon Dioxide BUN Creatinine Glucose POC Glucose 176 H Lactic Acid Calcium Total Bilirubin AST ALT C-Reactive Protein Total Protein Albumin Ur Specific [place] Urine WBC (Auto) Miscellaneous Test Crossmatch 08/11/17 08/11/17 08/11/17 12:27 13:07 14:39 WBC RBC Hgb POC Hgb 9.9 L 8.5 L Hct POC Hct 29 L 25 L MCV MCH MCHC RDW Plt Count Lymph % (Auto) Vance % (Auto) Lymph # [place] # Seg Neutrophils % Seg Neutrophils # PT INR APTT Activated Clotting Time 186 H D-Dimer Heparin Anti-Xa Level POC ABG pH POC ABG pCO2 POC ABG pO2 Sodium Potassium Chloride Carbon Dioxide BUN Creatinine Glucose POC Glucose 183 H 197 H Lactic Acid Calcium Total Bilirubin AST ALT C-Reactive Protein Total Protein Albumin Ur Specific [place] Urine WBC (Auto) Miscellaneous Test Crossmatch 08/11/17 08/11/17 08/11/17 14:46 16:18 17:57 WBC 12.7 H RBC 3.00 L Hgb 9.5 L D POC Hgb Hct 28.3 L D POC Hct MCV MCH MCHC RDW 16.3 H Plt Count 105 L Lymph % (Auto) 6.7 L [place] % (Auto) Lymph # 0.8 L [place] # Seg Neutrophils % 86.3 H Seg Neutrophils # 10.9 H PT INR APTT Activated Clotting Time 164 H D-Dimer Heparin Anti-Xa Level POC ABG pH POC ABG pCO2 POC ABG pO2 Sodium Potassium Chloride Carbon Dioxide BUN Creatinine Glucose POC Glucose 192 H Lactic Acid Calcium Total Bilirubin AST ALT C-Reactive Protein Total Protein Albumin Ur Specific [place] Urine WBC (Auto) Miscellaneous Test Crossmatch 08/11/17 08/11/17 08/11/17 17:57 20:00 20:00 WBC RBC Hgb 10.2 L POC Hgb Hct 31.1 L POC Hct MCV MCH MCHC RDW Plt Count 117 L Lymph % (Auto) Vance % (Auto) Lymph # [place] # Seg Neutrophils % Seg Neutrophils # PT 15.3 H INR 1.15 H APTT 97.7 H* Activated Clotting Time D-Dimer Heparin Anti-Xa Level POC ABG pH POC ABG pCO2 POC ABG pO2 Sodium Potassium Chloride 117.4 H Carbon Dioxide 18 L BUN Creatinine 0.7 L Glucose 143 H POC Glucose Lactic Acid Calcium 6.4 L D Total Bilirubin AST ALT C-Reactive Protein Total Protein Albumin Ur Specific [place] Urine WBC (Auto) Miscellaneous Test Crossmatch 08/12/17 08/12/17 08/12/17 03:30 03:50 03:50 WBC RBC Hgb 9.2 L 9.1 L POC Hgb Hct 27.5 L 27.2 L POC Hct MCV MCH MCHC RDW Plt Count Lymph % (Auto) Vance % (Auto) Lymph # [place] # Seg Neutrophils % Seg Neutrophils # PT INR APTT Activated Clotting Time D-Dimer Heparin Anti-Xa Level POC ABG pH POC ABG pCO2 POC ABG pO2 Sodium Potassium Chloride 113.5 H Carbon Dioxide 13 L BUN Creatinine Glucose 243 H POC Glucose Lactic Acid Calcium 6.3 L Total Bilirubin AST ALT C-Reactive Protein Total Protein Albumin Ur Specific [place] Urine WBC (Auto) Miscellaneous Test Crossmatch 08/12/17 08/12/17 08/12/17 07:36 08:48 16:16 WBC RBC Hgb POC Hgb Hct POC Hct MCV MCH MCHC RDW Plt Count Lymph % (Auto) Vance % (Auto) Lymph # [place] # Seg Neutrophils % Seg Neutrophils # PT INR APTT Activated Clotting Time D-Dimer Heparin Anti-Xa Level POC ABG pH 6.952 L 7.159 L POC ABG pCO2 49.1 H 47.8 H POC ABG pO2 76 L 106 H Sodium Potassium Chloride Carbon Dioxide BUN Creatinine Glucose POC Glucose 246 H Lactic Acid Calcium Total Bilirubin AST ALT C-Reactive Protein Total Protein Albumin Ur Specific [place] Urine WBC (Auto) Miscellaneous Test Crossmatch 08/12/17 08/12/17 08/12/17 17:54 18:30 20:15 WBC 17.9 H RBC 3.29 L Hgb 10.0 L POC Hgb Hct 29.3 L POC Hct MCV MCH MCHC RDW 15.5 H Plt Count 76 L Lymph % (Auto) Vance % (Auto) Lymph # [place] # Seg Neutrophils % Seg Neutrophils # PT INR APTT Activated Clotting Time D-Dimer Heparin Anti-Xa Level POC ABG pH POC ABG pCO2 POC ABG pO2 Sodium Potassium Chloride Carbon Dioxide BUN Creatinine Glucose POC Glucose 240 H Lactic Acid Calcium Total Bilirubin AST ALT C-Reactive Protein Total Protein Albumin Ur Specific [place] 1.051 H Urine WBC (Auto) > 182.0 H Miscellaneous Test Crossmatch 08/12/17 08/12/17 08/13/17 21:50 21:50 03:20 WBC RBC Hgb POC Hgb Hct POC Hct MCV MCH MCHC RDW Plt Count Lymph % (Auto) Vance % (Auto) Lymph # [place] # Seg Neutrophils % Seg Neutrophils # PT INR APTT Activated Clotting Time D-Dimer Heparin Anti-Xa Level < 0.10 L POC ABG pH POC ABG pCO2 POC ABG pO2 Sodium Potassium 5.4 H Chloride 110.8 H Carbon Dioxide 18 L BUN 30 H Creatinine 2.5 H D Glucose 216 H POC Glucose 235 H Lactic Acid Calcium 5.7 L* Total Bilirubin AST ALT C-Reactive Protein Total Protein Albumin Ur Specific [place] Urine WBC (Auto) Miscellaneous Test Crossmatch 08/13/17 08/13/17 08/13/17 05:46 05:46 06:06 WBC 14.6 H RBC 2.49 L Hgb 7.6 L POC Hgb Hct 22.3 L D POC Hct MCV MCH MCHC RDW 15.7 H Plt Count 78 L Lymph % (Auto) 10.3 L [place] % (Auto) Lymph # [place] # Seg Neutrophils % 84.1 H Seg Neutrophils # 12.3 H PT INR APTT Activated Clotting Time D-Dimer Heparin Anti-Xa Level POC ABG pH 7.282 L POC ABG pCO2 POC ABG pO2 Sodium Potassium Chloride 107.5 H Carbon Dioxide 19 L BUN 35 H Creatinine 2.9 H Glucose 242 H POC Glucose Lactic Acid Calcium 6.3 L Total Bilirubin AST 1304 H ALT 533 H C-Reactive Protein Total Protein 4.4 L Albumin 2.8 L Ur Specific [place] Urine WBC (Auto) Miscellaneous Test Crossmatch 08/13/17 08/13/17 08/13/17 07:10 07:10 09:00 WBC RBC Hgb POC Hgb Hct POC Hct MCV MCH MCHC RDW Plt Count Lymph % (Auto) [place]ance % (Auto) Lymph # [place] # Seg Neutrophils % Seg Neutrophils # PT 17.4 H INR 1.35 H APTT Activated Clotting Time D-Dimer 598.44 H Heparin Anti-Xa Level POC ABG pH POC ABG pCO2 POC ABG pO2 Sodium Potassium Chloride 107.2 H Carbon Dioxide 19 L BUN 35 H Creatinine 2.8 H Glucose 240 H POC Glucose Lactic Acid 3.10 H* Calcium 6.2 L Total Bilirubin AST ALT C-Reactive Protein Total Protein Albumin Ur Specific [place] Urine WBC (Auto) Miscellaneous Test Crossmatch 08/13/17 08/13/17 08/13/17 17:55 18:31 21:19 WBC RBC Hgb POC Hgb Hct POC Hct MCV MCH MCHC RDW Plt Count Lymph % (Auto) Vance % (Auto) Lymph # [place] # Seg Neutrophils % Seg Neutrophils # PT INR APTT Activated Clotting Time D-Dimer Heparin Anti-Xa Level POC ABG pH 7.451 H POC ABG pCO2 33.0 L POC ABG pO2 53 L Sodium Potassium Chloride Carbon Dioxide BUN Creatinine Glucose POC Glucose 247 H Lactic Acid 2.20 H* Calcium Total Bilirubin AST ALT C-Reactive Protein Total Protein Albumin Ur Specific [place] Urine WBC (Auto) Miscellaneous Test Crossmatch 08/13/17 08/14/17 08/14/17 23:34 00:10 05:00 WBC RBC Hgb POC Hgb Hct POC Hct MCV MCH MCHC RDW Plt Count Lymph % (Auto) Vance % (Auto) Lymph # [place] # Seg Neutrophils % Seg Neutrophils # PT 15.7 H INR 1.18 H APTT Activated Clotting Time D-Dimer 950.64 H Heparin Anti-Xa Level POC ABG pH POC ABG pCO2 POC ABG pO2 Sodium Potassium Chloride Carbon Dioxide BUN Creatinine Glucose POC Glucose 237 H Lactic Acid 2.70 H* Calcium Total Bilirubin AST ALT C-Reactive Protein Total Protein Albumin Ur Specific [place] Urine WBC (Auto) Miscellaneous Test Crossmatch 08/14/17 08/14/17 08/14/17 05:00 05:11 10:26 WBC 14.2 H RBC 2.66 L Hgb 7.9 L POC Hgb Hct 23.2 L POC Hct MCV MCH MCHC RDW 16.0 H Plt Count 75 L Lymph % (Auto) Vance % (Auto) Lymph # [place] # Seg Neutrophils % Seg Neutrophils # PT INR APTT Activated Clotting Time D-Dimer Heparin Anti-Xa Level POC ABG pH POC ABG pCO2 POC ABG pO2 78 L Sodium Potassium Chloride Carbon Dioxide BUN Creatinine Glucose POC Glucose 227 H Lactic Acid Calcium Total Bilirubin AST ALT C-Reactive Protein Total Protein Albumin Ur Specific [place] Urine WBC (Auto) Miscellaneous Test Crossmatch 08/14/17 08/14/17 08/14/17 11:28 11:28 12:06 WBC RBC Hgb POC Hgb Hct POC Hct MCV MCH MCHC RDW Plt Count Lymph % (Auto) Vance % (Auto) Lymph # [place] # Seg Neutrophils % Seg Neutrophils # PT INR APTT Activated Clotting Time D-Dimer Heparin Anti-Xa Level POC ABG pH POC ABG pCO2 POC ABG pO2 Sodium Potassium Chloride Carbon Dioxide BUN 43 H Creatinine 3.6 H Glucose 209 H POC Glucose 219 H Lactic Acid Calcium 7.6 L D Total Bilirubin AST ALT C-Reactive Protein 29.00 H Total Protein Albumin Ur Specific [place] Urine WBC (Auto) Miscellaneous Test Crossmatch 08/14/17 08/14/17 08/14/17 17:57 19:54 23:23 WBC RBC Hgb POC Hgb Hct POC Hct MCV MCH MCHC RDW Plt Count Lymph % (Auto) Vance % (Auto) Lymph # [place] # Seg Neutrophils % Seg Neutrophils # PT INR APTT Activated Clotting Time D-Dimer Heparin Anti-Xa Level POC ABG pH POC ABG pCO2 46.5 H POC ABG pO2 64 L Sodium Potassium Chloride Carbon Dioxide BUN Creatinine Glucose POC Glucose 178 H 170 H Lactic Acid Calcium Total Bilirubin AST ALT C-Reactive Protein Total Protein Albumin Ur Specific [place] Urine WBC (Auto) Miscellaneous Test Crossmatch 08/15/17 08/15/17 08/15/17 03:44 04:40 05:19 WBC 12.6 H RBC 2.49 L Hgb 7.4 L POC Hgb Hct 22.1 L POC Hct MCV MCH MCHC RDW 16.5 H Plt Count 64 L Lymph % (Auto) Vance % (Auto) Lymph # [place] # Seg Neutrophils % Seg Neutrophils # PT INR APTT Activated Clotting Time D-Dimer Heparin Anti-Xa Level POC ABG pH POC ABG pCO2 48.1 H POC ABG pO2 68 L Sodium Potassium Chloride Carbon Dioxide BUN Creatinine Glucose POC Glucose 154 H Lactic Acid Calcium Total Bilirubin AST ALT C-Reactive Protein Total Protein Albumin Ur Specific [place] Urine WBC (Auto) Miscellaneous Test Crossmatch 08/15/17 08/15/17 08/15/17 12:20 13:22 18:05 WBC RBC Hgb POC Hgb Hct POC Hct MCV MCH MCHC RDW Plt Count Lymph % (Auto) Vance % (Auto) Lymph # [place] # Seg Neutrophils % Seg Neutrophils # PT INR APTT Activated Clotting Time D-Dimer Heparin Anti-Xa Level POC ABG pH POC ABG pCO2 POC ABG pO2 Sodium Potassium Chloride Carbon Dioxide BUN 45 H Creatinine 4.1 H Glucose 141 H POC Glucose 147 H 170 H Lactic Acid Calcium 7.8 L Total Bilirubin AST ALT C-Reactive Protein Total Protein Albumin Ur Specific [place] Urine WBC (Auto) Miscellaneous Test Crossmatch 08/15/17 08/16/17 08/16/17 23:43 04:42 05:22 WBC 14.2 H RBC 2.54 L Hgb 7.5 L POC Hgb Hct 22.6 L POC Hct MCV MCH MCHC RDW 16.4 H Plt Count 73 L Lymph % (Auto) 6.6 L [place] % (Auto) 10.1 H Lymph # 0.9 L [place] # 1.4 H Seg Neutrophils % 83.1 H Seg Neutrophils # 11.8 H PT INR APTT Activated Clotting Time D-Dimer Heparin Anti-Xa Level POC ABG pH POC ABG pCO2 POC ABG pO2 71 L Sodium Potassium Chloride Carbon Dioxide BUN Creatinine Glucose POC Glucose 155 H Lactic Acid Calcium Total Bilirubin AST ALT C-Reactive Protein Total Protein Albumin Ur Specific [place] Urine WBC (Auto) Miscellaneous Test Crossmatch 08/16/17 08/16/17 08/16/17 06:20 08:49 11:54 WBC RBC Hgb POC Hgb Hct POC Hct MCV MCH MCHC RDW Plt Count Lymph % (Auto) Vance % (Auto) Lymph # [place] # Seg Neutrophils % Seg Neutrophils # PT INR APTT Activated Clotting Time D-Dimer Heparin Anti-Xa Level POC ABG pH POC ABG pCO2 POC ABG pO2 Sodium Potassium Chloride Carbon Dioxide BUN Creatinine Glucose POC Glucose 165 H 191 H 188 H Lactic Acid Calcium Total Bilirubin AST ALT C-Reactive Protein Total Protein Albumin Ur Specific [place] Urine WBC (Auto) Miscellaneous Test Crossmatch 08/16/17 08/16/17 08/16/17 13:00 18:32 23:33 WBC RBC Hgb POC Hgb Hct POC Hct MCV MCH MCHC RDW Plt Count Lymph % (Auto) Vance % (Auto) Lymph # [place] # Seg Neutrophils % Seg Neutrophils # PT INR APTT Activated Clotting Time D-Dimer Heparin Anti-Xa Level POC ABG pH POC ABG pCO2 POC ABG pO2 Sodium Potassium Chloride Carbon Dioxide BUN 47 H Creatinine 3.4 H Glucose 179 H POC Glucose 219 H 179 H Lactic Acid Calcium 8.2 L Total Bilirubin AST ALT C-Reactive Protein Total Protein Albumin Ur Specific [place] Urine WBC (Auto) Miscellaneous Test Crossmatch 08/17/17 08/17/17 08/17/17 04:25 04:30 05:32 WBC 15.2 H RBC 2.60 L Hgb 7.6 L POC Hgb Hct 23.8 L POC Hct MCV MCH MCHC RDW 16.3 H Plt Count 92 L Lymph % (Auto) [place] % (Auto) Lymph # [place] # Seg Neutrophils % Seg Neutrophils # PT INR APTT Activated Clotting Time D-Dimer Heparin Anti-Xa Level POC ABG pH POC ABG pCO2 POC ABG pO2 57 L Sodium Potassium Chloride Carbon Dioxide BUN 63 H Creatinine 3.4 H Glucose 155 H POC Glucose Lactic Acid Calcium 8.3 L Total Bilirubin 1.40 H AST 99 H ALT 93 H C-Reactive Protein Total Protein 5.6 L D Albumin 3.1 L Ur Specific [place] Urine WBC (Auto) Miscellaneous Test Crossmatch 08/17/17 08/17/17 08/17/17 06:36 12:37 17:44 WBC RBC Hgb POC Hgb Hct POC Hct MCV MCH MCHC RDW Plt Count Lymph % (Auto) Vance % (Auto) Lymph # [place] # Seg Neutrophils % Seg Neutrophils # PT INR APTT Activated Clotting Time D-Dimer Heparin Anti-Xa Level POC ABG pH POC ABG pCO2 POC ABG pO2 Sodium Potassium Chloride Carbon Dioxide BUN Creatinine Glucose POC Glucose 167 H 203 H 158 H Lactic Acid Calcium Total Bilirubin AST ALT C-Reactive Protein Total Protein Albumin Ur Specific [place] Urine WBC (Auto) Miscellaneous Test Crossmatch 08/17/17 08/18/17 08/18/17 23:55 04:30 05:57 WBC RBC 2.40 L Hgb 7.3 L POC Hgb Hct 21.8 L POC Hct MCV MCH MCHC RDW 16.3 H Plt Count 95 L Lymph % (Auto) Vance % (Auto) Lymph # [place] # Seg Neutrophils % Seg Neutrophils # PT INR APTT Activated Clotting Time D-Dimer Heparin Anti-Xa Level POC ABG pH POC ABG pCO2 POC ABG pO2 Sodium Potassium Chloride Carbon Dioxide BUN Creatinine Glucose POC Glucose 146 H 179 H Lactic Acid Calcium Total Bilirubin AST ALT C-Reactive Protein Total Protein Albumin Ur Specific [place] Urine WBC (Auto) Miscellaneous Test Crossmatch 08/18/17 08/18/17 08/18/17 08:20 08:20 08:32 WBC RBC Hgb POC Hgb Hct POC Hct MCV MCH MCHC RDW Plt Count Lymph % (Auto) Vance % (Auto) Lymph # [place] # Seg Neutrophils % Seg Neutrophils # PT INR APTT Activated Clotting Time D-Dimer Heparin Anti-Xa Level POC ABG pH POC ABG pCO2 POC ABG pO2 Sodium 146 H Potassium Chloride 108.4 H Carbon Dioxide BUN 62 H Creatinine 2.4 H Glucose 125 H POC Glucose 161 H Lactic Acid Calcium Total Bilirubin AST ALT C-Reactive Protein 13.90 H Total Protein Albumin Ur Specific [place] Urine WBC (Auto) Miscellaneous Test Crossmatch 08/18/17 08/18/17 08/18/17 11:33 17:18 23:31 WBC RBC Hgb POC Hgb Hct POC Hct MCV MCH MCHC RDW Plt Count Lymph % (Auto) [place]ance % (Auto) Lymph # [place] # Seg Neutrophils % Seg Neutrophils # PT INR APTT Activated Clotting Time D-Dimer Heparin Anti-Xa Level POC ABG pH POC ABG pCO2 POC ABG pO2 Sodium Potassium Chloride Carbon Dioxide BUN Creatinine Glucose POC Glucose 165 H 126 H 166 H Lactic Acid Calcium Total Bilirubin AST ALT C-Reactive Protein Total Protein Albumin Ur Specific [place] Urine WBC (Auto) Miscellaneous Test Crossmatch 08/19/17 08/19/17 08/19/17 04:33 05:00 05:44 WBC RBC 1.69 L Hgb 5.1 L* POC Hgb Hct 15.9 L* POC Hct MCV 95 H MCH MCHC RDW 17.1 H Plt Count 75 L Lymph % (Auto) [place]ance % (Auto) Lymph # [place] # Seg Neutrophils % Seg Neutrophils # PT INR APTT Activated Clotting Time D-Dimer Heparin Anti-Xa Level POC ABG pH POC ABG pCO2 POC ABG pO2 65 L Sodium Potassium Chloride Carbon Dioxide BUN Creatinine Glucose POC Glucose 174 H Lactic Acid Calcium Total Bilirubin AST ALT C-Reactive Protein Total Protein Albumin Ur Specific [place] Urine WBC (Auto) Miscellaneous Test Crossmatch 08/19/17 08/19/17 08/19/17 08:26 09:45 11:05 WBC RBC Hgb 8.8 L D POC Hgb Hct 26.7 L D POC Hct MCV MCH MCHC RDW Plt Count Lymph % (Auto) Vance % (Auto) Lymph # [place] # Seg Neutrophils % Seg Neutrophils # PT INR APTT Activated Clotting Time D-Dimer Heparin Anti-Xa Level POC ABG pH POC ABG pCO2 POC ABG pO2 Sodium 151 H Potassium 3.3 L Chloride 112.5 H Carbon Dioxide BUN 65 H Creatinine 1.6 H Glucose 145 H POC Glucose Lactic Acid Calcium 7.9 L Total Bilirubin AST ALT C-Reactive Protein Total Protein Albumin Ur Specific [place] Urine WBC (Auto) Miscellaneous Test Crossmatch See Detail 08/19/17 08/19/17 08/19/17 11:34 18:02 23:37 WBC RBC Hgb POC Hgb Hct POC Hct MCV MCH MCHC RDW Plt Count Lymph % (Auto) Vance % (Auto) Lymph # [place] # Seg Neutrophils % Seg Neutrophils # PT INR APTT Activated Clotting Time D-Dimer Heparin Anti-Xa Level POC ABG pH POC ABG pCO2 POC ABG pO2 Sodium Potassium Chloride Carbon Dioxide BUN Creatinine Glucose POC Glucose 166 H 224 H 222 H Lactic Acid Calcium Total Bilirubin AST ALT C-Reactive Protein Total Protein Albumin Ur Specific [place] Urine WBC (Auto) Miscellaneous Test Crossmatch 08/20/17 08/20/17 08/20/17 04:26 04:45 04:45 WBC 14.4 H RBC 2.97 L Hgb 8.9 L POC Hgb Hct 26.9 L POC Hct MCV MCH MCHC RDW 16.8 H Plt Count Lymph % (Auto) [place]ance % (Auto) Lymph # [place] # Seg Neutrophils % Seg Neutrophils # PT INR APTT Activated Clotting Time D-Dimer Heparin Anti-Xa Level POC ABG pH 7.497 H POC ABG pCO2 33.4 L POC ABG pO2 68 L Sodium 153 H Potassium Chloride 112.8 H Carbon Dioxide BUN 71 H Creatinine 1.7 H Glucose 244 H POC Glucose Lactic Acid Calcium Total Bilirubin AST ALT C-Reactive Protein Total Protein Albumin Ur Specific [place] Urine WBC (Auto) Miscellaneous Test Crossmatch 08/20/17 08/20/17 08/20/17 05:42 12:25 12:31 WBC RBC Hgb POC Hgb Hct POC Hct MCV MCH MCHC RDW Plt Count Lymph % (Auto) Vance % (Auto) Lymph # [place] # Seg Neutrophils % Seg Neutrophils # PT INR APTT Activated Clotting Time D-Dimer Heparin Anti-Xa Level POC ABG pH POC ABG pCO2 POC ABG pO2 Sodium Potassium Chloride Carbon Dioxide BUN Creatinine Glucose POC Glucose 224 H 274 H Lactic Acid Calcium Total Bilirubin AST ALT C-Reactive Protein Total Protein Albumin Ur Specific [place] Urine WBC (Auto) Miscellaneous Test Flexitest 1 H Crossmatch 08/20/17 08/20/17 08/20/17 17:56 22:25 23:52 WBC RBC Hgb POC Hgb Hct POC Hct MCV MCH MCHC RDW Plt Count Lymph % (Auto) Vance % (Auto) Lymph # Vance # Seg Neutrophils % Seg Neutrophils # PT INR APTT Activated Clotting Time D-Dimer Heparin Anti-Xa Level POC ABG pH POC ABG pCO2 POC ABG pO2 Sodium Potassium Chloride Carbon Dioxide BUN Creatinine Glucose POC Glucose 267 H 241 H Lactic Acid Calcium Total Bilirubin AST ALT C-Reactive Protein 22.10 H Total Protein Albumin Ur Specific [place] Urine WBC (Auto) Miscellaneous Test Crossmatch 08/21/17 08/21/17 08/21/17 04:15 04:15 05:50 WBC 13.3 H RBC 2.84 L Hgb 8.3 L POC Hgb Hct 26.8 L POC Hct MCV MCH MCHC 31 L RDW 17.8 H Plt Count Lymph % (Auto) Vance % (Auto) Lymph # Vance # Seg Neutrophils % Seg Neutrophils # PT INR APTT Activated Clotting Time D-Dimer Heparin Anti-Xa Level POC ABG pH POC ABG pCO2 POC ABG pO2 Sodium 158 H Potassium 3.2 L Chloride 118.8 H Carbon Dioxide BUN 74 H Creatinine 1.8 H Glucose 227 H POC Glucose 230 H Lactic Acid Calcium Total Bilirubin AST ALT C-Reactive Protein Total Protein Albumin Ur Specific [place] Urine WBC (Auto) Miscellaneous Test Crossmatch 08/21/17 08/21/17 08/21/17 06:23 11:04 11:44 WBC RBC Hgb POC Hgb Hct POC Hct MCV MCH MCHC RDW Plt Count Lymph % (Auto) Vance % (Auto) Lymph # [place]ance # Seg Neutrophils % Seg Neutrophils # PT INR APTT Activated Clotting Time D-Dimer Heparin Anti-Xa Level POC ABG pH POC ABG pCO2 46.6 H POC ABG pO2 74 L 52 L Sodium Potassium Chloride Carbon Dioxide BUN Creatinine Glucose POC Glucose 327 H Lactic Acid Calcium Total Bilirubin AST ALT C-Reactive Protein Total Protein Albumin Ur Specific [place] Urine WBC (Auto) Miscellaneous Test Crossmatch 08/21/17 08/21/17 08/22/17 12:34 18:08 00:28 WBC RBC Hgb POC Hgb Hct POC Hct MCV MCH MCHC RDW Plt Count Lymph % (Auto) Vance % (Auto) Lymph # [place] # Seg Neutrophils % Seg Neutrophils # PT INR APTT Activated Clotting Time D-Dimer Heparin Anti-Xa Level POC ABG pH POC ABG pCO2 POC ABG pO2 Sodium Potassium Chloride Carbon Dioxide BUN Creatinine Glucose POC Glucose 285 H 262 H 252 H Lactic Acid Calcium Total Bilirubin AST ALT C-Reactive Protein Total Protein Albumin Ur Specific [place] Urine WBC (Auto) Miscellaneous Test Crossmatch 08/22/17 08/22/17 08/22/17 06:20 07:15 12:11 WBC RBC Hgb POC Hgb Hct POC Hct MCV MCH MCHC RDW Plt Count Lymph % (Auto) Vance % (Auto) Lymph # [place] # Seg Neutrophils % Seg Neutrophils # PT INR APTT Activated Clotting Time D-Dimer Heparin Anti-Xa Level POC ABG pH POC ABG pCO2 POC ABG pO2 Sodium 156 H Potassium 3.2 L Chloride 117.4 H Carbon Dioxide BUN 71 H Creatinine 1.6 H Glucose 217 H POC Glucose 231 H 246 H Lactic Acid Calcium 8.3 L Total Bilirubin AST ALT C-Reactive Protein Total Protein Albumin Ur Specific [place] Urine WBC (Auto) Miscellaneous Test Crossmatch 08/22/17 08/22/17 08/23/17 17:15 19:47 00:13 WBC RBC Hgb POC Hgb Hct POC Hct MCV MCH MCHC RDW Plt Count Lymph % (Auto) Vance % (Auto) Lymph # [place] # Seg Neutrophils % Seg Neutrophils # PT INR APTT Activated Clotting Time D-Dimer Heparin Anti-Xa Level POC ABG pH POC ABG pCO2 POC ABG pO2 67 L Sodium Potassium Chloride Carbon Dioxide BUN Creatinine Glucose POC Glucose 227 H 225 H Lactic Acid Calcium Total Bilirubin AST ALT C-Reactive Protein Total Protein Albumin Ur Specific [place] Urine WBC (Auto) Miscellaneous Test Crossmatch 08/23/17 08/23/17 08/23/17 06:20 06:20 11:07 WBC 13.8 H RBC 2.72 L Hgb 8.1 L POC Hgb Hct 25.7 L POC Hct MCV 95 H MCH MCHC RDW 17.8 H Plt Count Lymph % (Auto) Vance % (Auto) Lymph # [place] # Seg Neutrophils % Seg Neutrophils # PT INR APTT Activated Clotting Time D-Dimer Heparin Anti-Xa Level POC ABG pH POC ABG pCO2 POC ABG pO2 Sodium 155 H Potassium Chloride 118.5 H Carbon Dioxide BUN 64 H Creatinine Glucose 202 H POC Glucose 253 H Lactic Acid Calcium 8.2 L Total Bilirubin 1.50 H AST ALT C-Reactive Protein Total Protein 4.9 L Albumin 2.5 L Ur Specific [place] Urine WBC (Auto) Miscellaneous Test Crossmatch 08/23/17 08/23/17 08/24/17 15:40 17:13 00:13 WBC RBC Hgb POC Hgb Hct POC Hct MCV MCH MCHC RDW Plt Count Lymph % (Auto) Vance % (Auto) Lymph # [place] # Seg Neutrophils % Seg Neutrophils # PT INR APTT Activated Clotting Time D-Dimer Heparin Anti-Xa Level POC ABG pH POC ABG pCO2 POC ABG pO2 65 L Sodium Potassium Chloride Carbon Dioxide BUN Creatinine Glucose POC Glucose 236 H 170 H Lactic Acid Calcium Total Bilirubin AST ALT C-Reactive Protein Total Protein Albumin Ur Specific [place] Urine WBC (Auto) Miscellaneous Test Crossmatch 08/24/17 08/24/17 08/24/17 06:20 06:20 11:16 WBC 15.3 H RBC 2.87 L Hgb 8.6 L POC Hgb Hct 27.5 L POC Hct MCV 96 H MCH MCHC 31 L RDW 17.6 H Plt Count Lymph % (Auto) Vance % (Auto) Lymph # [place] # Seg Neutrophils % Seg Neutrophils # PT INR APTT Activated Clotting Time D-Dimer Heparin Anti-Xa Level POC ABG pH POC ABG pCO2 POC ABG pO2 Sodium 156 H Potassium Chloride 118.7 H Carbon Dioxide BUN 60 H Creatinine Glucose 163 H POC Glucose 212 H Lactic Acid Calcium Total Bilirubin AST ALT C-Reactive Protein Total Protein Albumin Ur Specific [place] Urine WBC (Auto) Miscellaneous Test Crossmatch 08/24/17 08/24/17 08/24/17 11:43 16:52 16:59 WBC RBC Hgb POC Hgb Hct POC Hct MCV MCH MCHC RDW Plt Count Lymph % (Auto) Vance % (Auto) Lymph # [place] # Seg Neutrophils % Seg Neutrophils # PT 15.1 H INR APTT Activated Clotting Time D-Dimer Heparin Anti-Xa Level POC ABG pH POC ABG pCO2 POC ABG pO2 59 L Sodium Potassium Chloride Carbon Dioxide BUN Creatinine Glucose POC Glucose 250 H Lactic Acid Calcium Total Bilirubin AST ALT C-Reactive Protein Total Protein Albumin Ur Specific [place] Urine WBC (Auto) Miscellaneous Test Crossmatch 08/24/17 08/25/17 08/25/17 23:46 04:21 05:45 WBC RBC Hgb POC Hgb Hct POC Hct MCV MCH MCHC RDW Plt Count Lymph % (Auto) Vance % (Auto) Lymph # [place] # Seg Neutrophils % Seg Neutrophils # PT INR APTT Activated Clotting Time D-Dimer Heparin Anti-Xa Level POC ABG pH 7.461 H POC ABG pCO2 POC ABG pO2 Sodium Potassium Chloride Carbon Dioxide BUN Creatinine Glucose POC Glucose 255 H 252 H Lactic Acid Calcium Total Bilirubin AST ALT C-Reactive Protein Total Protein Albumin Ur Specific [place] Urine WBC (Auto) Miscellaneous Test Crossmatch 08/25/17 08/25/17 08/25/17 08:38 08:38 12:08 WBC 17.1 H RBC 2.75 L Hgb 8.4 L POC Hgb Hct 26.4 L POC Hct MCV 96 H MCH MCHC RDW 17.7 H Plt Count Lymph % (Auto) [place]ance % (Auto) Lymph # [place] # Seg Neutrophils % Seg Neutrophils # PT INR APTT Activated Clotting Time D-Dimer Heparin Anti-Xa Level POC ABG pH POC ABG pCO2 POC ABG pO2 Sodium 152 H Potassium 3.4 L Chloride 115.6 H Carbon Dioxide BUN 66 H Creatinine Glucose 297 H POC Glucose 245 H Lactic Acid Calcium 8.2 L Total Bilirubin AST ALT C-Reactive Protein Total Protein Albumin Ur Specific [place] Urine WBC (Auto) Miscellaneous Test Crossmatch 08/25/17 08/25/17 08/26/17 18:26 23:44 05:47 WBC RBC Hgb POC Hgb Hct POC Hct MCV MCH MCHC RDW Plt Count Lymph % (Auto) Vance % (Auto) Lymph # [place] # Seg Neutrophils % Seg Neutrophils # PT INR APTT Activated Clotting Time D-Dimer Heparin Anti-Xa Level POC ABG pH POC ABG pCO2 POC ABG pO2 Sodium Potassium Chloride Carbon Dioxide BUN Creatinine Glucose POC Glucose 162 H 173 H 188 H Lactic Acid Calcium Total Bilirubin AST ALT C-Reactive Protein Total Protein Albumin Ur Specific [place] Urine WBC (Auto) Miscellaneous Test Crossmatch 08/26/17 08/26/17 08/26/17 07:35 10:44 11:26 WBC RBC Hgb POC Hgb Hct POC Hct MCV MCH MCHC RDW Plt Count Lymph % (Auto) Vance % (Auto) Lymph # [place] # Seg Neutrophils % Seg Neutrophils # PT INR APTT Activated Clotting Time D-Dimer Heparin Anti-Xa Level POC ABG pH POC ABG pCO2 POC ABG pO2 Sodium 159 H Potassium 3.3 L Chloride 122.4 H Carbon Dioxide BUN 61 H Creatinine Glucose 183 H POC Glucose 148 H Lactic Acid Calcium 8.1 L Total Bilirubin AST ALT C-Reactive Protein 10.90 H Total Protein Albumin Ur Specific [place] Urine WBC (Auto) Miscellaneous Test Crossmatch Allied health notes reviewed: RT
--- NOTE | 2017-08-26 14:29 | XRay Report ---
AP ABDOMEN: HISTORY: Ileus. Mild improvement in the distended stomach since yesterday's exam. The abdominal gas pattern is unremarkable. No masses or organomegaly is identified and there is no gross evidence of free air or fluid. No significant soft tissue calcifications are noted. IMPRESSION: Unremarkable abdomen.
--- NOTE | 2017-08-26 16:28 | Progress Note ---
Assessment and Plan Slow progress. Continue supportive care. D/c planning for LTACH placement in progress. Discussed with family. - Patient Problems (1) Atherosclerosis of [place] arteries of extremity with intermittent claudication Current Visit: No Status: Acute (2) Abdominal distention Current Visit: Yes Status: Acute (3) Acute renal failure due to tubular necrosis Current Visit: Yes Status: Acute (4) Hemorrhagic shock Current Visit: Yes Status: Acute (5) Metabolic acidosis Current Visit: Yes Status: Acute Subjective Date of service: 08/26/17 Principal diagnosis: Acute Hypoxemic Respiratory Failure; Hemorrhagic Shock; WILLIAM on Dilaysis;PVD Interval history: Pt awake. Answers questions with non-verbal nods of his head. He confirms discomfort to abd and lower ext, but appears reasonably comfortable at rest. Objective - Constitutional Vitals: Vital Signs - 12hr 08/26/17 08/26/17 08/26/17 04:31 05:00 05:31 Temperature Pulse Rate 110 H 104 H 103 H Pulse Rate [ From Monitor] Respiratory 19 14 18 Rate Blood Pressure 127/68 130/65 131/60 O2 Sat by Pulse 99 99 99 Oximetry O2 Sat by Pulse Oximetry [ Assessment] 08/26/17 08/26/17 08/26/17 06:00 06:31 07:01 Temperature Pulse Rate 86 105 H 116 H Pulse Rate [ From Monitor] Respiratory 20 19 17 Rate Blood Pressure 96/49 134/66 130/68 O2 Sat by Pulse 100 100 99 Oximetry O2 Sat by Pulse Oximetry [ Assessment] 08/26/17 08/26/17 08/26/17 07:30 08:00 08:06 Temperature 98.2 F Pulse Rate 120 H 113 H Pulse Rate [ 106 H From Monitor] Respiratory 13 20 Rate Blood Pressure 138/69 O2 Sat by Pulse 99 98 Oximetry O2 Sat by Pulse 98 Oximetry [ Assessment] 08/26/17 08/26/17 08/26/17 08:30 09:00 09:30 Temperature Pulse Rate 103 H 106 H 107 H Pulse Rate [ From Monitor] Respiratory 21 18 18 Rate Blood Pressure 136/63 134/64 137/68 O2 Sat by Pulse 93 98 99 Oximetry O2 Sat by Pulse Oximetry [ Assessment] 08/26/17 08/26/17 08/26/17 10:00 10:30 10:52 Temperature Pulse Rate 112 H 96 H 106 H Pulse Rate [ From Monitor] Respiratory 16 19 Rate Blood Pressure 133/75 138/72 134/64 O2 Sat by Pulse 98 99 Oximetry O2 Sat by Pulse Oximetry [ Assessment] 08/26/17 08/26/17 08/26/17 11:00 11:27 11:30 Temperature Pulse Rate 105 H 102 H 105 H Pulse Rate [ From Monitor] Respiratory 17 15 Rate Blood Pressure 121/75 130/67 O2 Sat by Pulse 96 98 Oximetry O2 Sat by Pulse Oximetry [ Assessment] 08/26/17 08/26/17 08/26/17 12:00 12:30 12:38 Temperature 98.9 F Pulse Rate 104 H 109 H Pulse Rate [ 106 H From Monitor] Respiratory 20 21 Rate Blood Pressure 130/67 126/63 O2 Sat by Pulse 97 99 98 Oximetry O2 Sat by Pulse 98 Oximetry [ Assessment] 08/26/17 08/26/17 12:39 13:00 Temperature Pulse Rate 93 H 106 H Pulse Rate [ From Monitor] Respiratory 14 Rate Blood Pressure 126/63 137/67 O2 Sat by Pulse 97 95 Oximetry O2 Sat by Pulse Oximetry [ Assessment] General appearance: Present: no acute distress - EENT Eyes: EOM intact ENT: hearing intact - Neck Neck: other (trach in place) - Respiratory Respiratory effort: other (on vent) Extremities: no ischemia, normal temperature Extremity abnormal: edema (improving) - Gastrointestinal General gastrointestinal: Present: soft - Psychiatric Psychiatric: appropriate mood/affect, intact judgment & insight, cooperative - Labs CBC & Chem 7: 08/25/17 08:38 08/26/17 07:35 Labs: Abnormal lab results 08/25/17 08/25/17 08/26/17 Range/Units 18:26 23:44 05:47 Sodium (137-145) mmol/L Potassium (3.6-5.0) mmol/L Chloride (98-107) mmol/L BUN (9-20) mg/dL Glucose (75-100) mg/dL POC Glucose 162 H 173 H 188 H (70-105) Calcium (8.4-10.2) mg/dL C-Reactive Protein (0.00-1.30) mg/dL 08/26/17 08/26/17 08/26/17 Range/Units 07:35 10:44 11:26 Sodium 159 H (137-145) mmol/L Potassium 3.3 L (3.6-5.0) mmol/L Chloride 122.4 H (98-107) mmol/L BUN 61 H (9-20) mg/dL Glucose 183 H (75-100) mg/dL POC Glucose 148 H (70-105) Calcium 8.1 L (8.4-10.2) mg/dL C-Reactive Protein 10.90 H (0.00-1.30) mg/dL
[2017-08-26 18:39] LABS: BUN/Creatinine Ratio 48; Blood Urea Nitrogen 58 mg/dL (9-20); Calcium 8.2 mg/dL (8.4-10.2); Hemolysis Index 1
[2017-08-26] MEDS: SENOKOT S PO SCH (22:02)
[2017-08-26] MEDS: D5W 1,000 ML IV SCH (22:40)
[2017-08-27] MEDS: REGLAN IV SCH ×3 (00:30→11:19)
[2017-08-27] MEDS: HumaLOG SUB-Q SCH ×3 (00:30→12:15)
[2017-08-27] MEDS: APRESOLINE PO SCH ×2 (05:56→15:53)
[2017-08-27] MEDS: HEPARIN SUB-Q SCH ×2 (05:57→14:40)
[2017-08-27] MEDS: MAXIPIME 2 GM in NACL 0.9% 20 ML IV SCH ×2 (06:00→14:40)
[2017-08-27 09:44] LABS: Basophils % (Auto) 0.3 % (0.0-1.8); Eosinophils # (Auto) 0.1 K/mm3 (0.0-0.4); Eosinophils % (Auto) 1.1 % (0.0-4.3); Hematocrit 25.6 % (35.5-45.6); Hemoglobin 7.9 gm/dl (11.8-15.2); Lymphocytes % (Auto) 8.9 % (13.4-35.0); Mean Corpuscular HGB Conc 31 % (32-34); Mean Corpuscular Hemoglobin 30 pg (28-32); Mean Corpuscular Volume 98 fl (84-94); Monocytes # (Auto) 0.7 K/mm3 (0.0-0.8); Platelet Count 173 K/mm3 (140-440); Red Blood Count 2.62 M/mm3 (3.65-5.03); Red Cell Distribution Width 18.1 % (13.2-15.2)
--- NOTE | 2017-08-27 09:58 | Progress Note ---
Assessment and Plan Acute Hypoxic Respiratory failure Vasogenic Shock, Presumed Bleed WILLIAM Secondary to vasomotor nephropathy Severe Metabolic Acidosis Acute blood loss anemia PVD s/p right femoral end-arterectomy Acute encephalopathy s/p Massive blood transfusion Leukocytosis - continue daily SAT's and SBT's - continue enteral nutrition - continue supplemental oxygen and wean to keep sats > 90% - continue to address VAP bundle daily - continue antibiotics and de-escalate per ID recs - remains off vasopressors - continue HD/UF per nephrology prescription for volume and toxin clearance (on hold as now making urine)(pull Vas-cath once OK) - massive transfusion protocol followed; received FFP's and platelets - hold all anticoagulation till H&H stabilizes - continue SCD's - continue agitation and analgesia management while avoiding benzodiazepines - Avoiding\ nephrotoxic agents - surgery wants barrientos back in re: leakage over prior surgical incision sites - Azotemia per nephrology team otherwise - case discussed at length in team rounds and care plan formulated - Prognosis remains guarded overall although much improved, with risk of decompensation from a hemodynamic standpoint and even . - continue other care per attending / other consultants .... re-evaluate in am & prn ...30' CCT Subjective Date of service: 08/27/17 Principal diagnosis: Acute Hypoxemic Respiratory Failure; Hemorrhagic Shock; WILLIAM on Dilaysis;PVD Interval history: Patient is seen today for: Acute Hypoxemic Respiratory Failure; Hemorrhagic Shock; WILLIAM on Dilaysis;PVD Seen and examined at bedside; 24 hour events reviewed; nursing and respiratory care staff consulted; resting peacefully in bed; remains on MVS; no emesis or overt aspiration; denies acute chest pains; tolerating tube feeds Objective Vital Signs - 12hr 08/26/17 08/26/17 08/26/17 22:00 22:02 22:06 Temperature Pulse Rate 94 H 84 94 H Pulse Rate [ From Monitor] Respiratory 15 Rate Blood Pressure 112/69 112/69 129/73 O2 Sat by Pulse 100 Oximetry O2 Sat by Pulse Oximetry [ Assessment] 08/26/17 08/26/17 08/26/17 22:30 23:00 23:30 Temperature Pulse Rate 101 H 96 H 92 H Pulse Rate [ From Monitor] Respiratory 14 17 15 Rate Blood Pressure 151/73 141/82 122/74 O2 Sat by Pulse 99 98 98 Oximetry O2 Sat by Pulse Oximetry [ Assessment] 08/26/17 08/26/17 08/27/17 23:48 23:49 00:00 Temperature 98 F Pulse Rate 104 H 89 Pulse Rate [ 91 H From Monitor] Respiratory 19 18 Rate Blood Pressure 139/63 122/67 O2 Sat by Pulse 99 98 Oximetry O2 Sat by Pulse Oximetry [ Assessment] 08/27/17 08/27/17 08/27/17 00:30 01:00 01:30 Temperature Pulse Rate 102 H 98 H 96 H Pulse Rate [ From Monitor] Respiratory 17 16 17 Rate Blood Pressure 143/77 141/68 129/81 O2 Sat by Pulse 96 98 100 Oximetry O2 Sat by Pulse Oximetry [ Assessment] 08/27/17 08/27/17 08/27/17 02:00 02:30 03:00 Temperature Pulse Rate 93 H 103 H 87 Pulse Rate [ From Monitor] Respiratory 20 16 17 Rate Blood Pressure 119/68 139/74 132/69 O2 Sat by Pulse 95 98 98 Oximetry O2 Sat by Pulse Oximetry [ Assessment] 08/27/17 08/27/17 08/27/17 03:13 03:30 04:00 Temperature 97.8 F Pulse Rate 74 76 Pulse Rate [ 91 H From Monitor] Respiratory 14 18 Rate Blood Pressure 122/67 124/73 O2 Sat by Pulse 97 78 L Oximetry O2 Sat by Pulse Oximetry [ Assessment] 08/27/17 08/27/17 08/27/17 04:28 04:30 05:00 Temperature Pulse Rate 83 88 Pulse Rate [ From Monitor] Respiratory 20 16 Rate Blood Pressure 136/79 136/72 O2 Sat by Pulse 92 98 Oximetry O2 Sat by Pulse 97 Oximetry [ Assessment] 08/27/17 08/27/17 08/27/17 05:30 05:56 06:00 Temperature Pulse Rate 89 87 101 H Pulse Rate [ From Monitor] Respiratory 18 16 Rate Blood Pressure 138/82 141/73 141/73 O2 Sat by Pulse 100 100 Oximetry O2 Sat by Pulse Oximetry [ Assessment] 08/27/17 08/27/17 08/27/17 06:30 07:00 07:30 Temperature Pulse Rate 97 H 94 H 84 Pulse Rate [ From Monitor] Respiratory 15 20 17 Rate Blood Pressure 128/82 137/76 143/61 O2 Sat by Pulse 89 Oximetry O2 Sat by Pulse Oximetry [ Assessment] 08/27/17 08/27/17 08:00 08:30 Temperature 98.5 F Pulse Rate 88 Pulse Rate [ From Monitor] Respiratory 18 Rate Blood Pressure 131/68 O2 Sat by Pulse 92 Oximetry O2 Sat by Pulse Oximetry [ Assessment] Constitutional: no acute distress, alert, other (obese) Eyes: non-icteric ENT: oropharynx moist, other (s/p tracheostomy to MVS) Neck: supple, no lymphadenopathy, no JVD, other (RIJ VasCath) Effort: normal, mildly labored, other (s/p tracheostomy to vent) Ascultation: Bilateral: diminished breath sounds, rales (scant) Percussion: Bilateral: not dull Cardiovascular: regular rate and rhythm, other (No R/M) Gastrointestinal: normoactive bowel sounds, soft, non-tender, non-distended, other (s/p PEG; no palpable HSM) Integumentary: other (post-op scars) Extremities: no cyanosis, pink and warm, no ischemia or petechiae, edema (1+) Neurologic: non-focal exam (grossly), pupils equal and round Psychiatric: other (unable to assess) CBC and BMP: 08/27/17 09:25 08/27/17 09:25 ABG, PT/INR, D-dimer: ABG POC ABG pH 7.427 (7.35-7.45) 08/26/17 06:22 POC ABG pCO2 39.4 (35-45) 08/26/17 06:22 POC ABG pO2 94 (80-105) 08/26/17 06:22 POC ABG HCO3 26.0 08/26/17 06:22 POC ABG Total CO2 27 08/26/17 06:22 POC ABG O2 Sat 97 08/26/17 06:22 PT/INR, D-dimer PT 15.1 Sec. (12.2-14.9) H 08/24/17 16:52 INR 1.13 (0.87-1.13) 08/24/17 16:52 D-Dimer 950.64 ng/mlDDU (0-234) H 08/14/17 05:00 Abnormal lab findings: Abnormal Labs 08/10/17 08/10/17 08/10/17 10:05 10:05 10:05 WBC RBC Hgb POC Hgb Hct POC Hct MCV 97 H MCH 33 H MCHC RDW Plt Count Lymph % (Auto) [place] % (Auto) Lymph # [place] # Seg Neutrophils % 72.9 H Seg Neutrophils # PT 11.6 L INR 0.81 L APTT Activated Clotting Time D-Dimer Heparin Anti-Xa Level POC ABG pH POC ABG pCO2 POC ABG pO2 Sodium Potassium Chloride Carbon Dioxide BUN Creatinine 0.7 L Glucose 196 H POC Glucose Lactic Acid Calcium Total Bilirubin AST ALT C-Reactive Protein Total Protein Albumin Ur Specific Chromo Urine WBC (Auto) Miscellaneous Test Crossmatch 08/11/17 08/11/17 08/11/17 06:50 07:03 09:50 WBC RBC Hgb POC Hgb Hct POC Hct MCV MCH MCHC RDW Plt Count Lymph % (Auto) [place] % (Auto) Lymph # [place] # Seg Neutrophils % Seg Neutrophils # PT INR APTT Activated Clotting Time D-Dimer Heparin Anti-Xa Level POC ABG pH 7.270 L POC ABG pCO2 49.1 H POC ABG pO2 117 H Sodium Potassium Chloride Carbon Dioxide BUN Creatinine Glucose POC Glucose 160 H Lactic Acid Calcium Total Bilirubin AST ALT C-Reactive Protein Total Protein Albumin Ur Specific Chromo Urine WBC (Auto) Miscellaneous Test Crossmatch See Detail 08/11/17 08/11/17 08/11/17 10:52 11:12 12:16 WBC RBC Hgb POC Hgb Hct POC Hct MCV MCH MCHC RDW Plt Count Lymph % (Auto) [place] % (Auto) Lymph # [place] # Seg Neutrophils % Seg Neutrophils # PT INR APTT Activated Clotting Time 191 H 153 H D-Dimer Heparin Anti-Xa Level POC ABG pH POC ABG pCO2 POC ABG pO2 Sodium Potassium Chloride Carbon Dioxide BUN Creatinine Glucose POC Glucose 176 H Lactic Acid Calcium Total Bilirubin AST ALT C-Reactive Protein Total Protein Albumin Ur Specific Chromo Urine WBC (Auto) Miscellaneous Test Crossmatch 08/11/17 08/11/17 08/11/17 12:27 13:07 14:39 WBC RBC Hgb POC Hgb 9.9 L 8.5 L Hct POC Hct 29 L 25 L MCV MCH MCHC RDW Plt Count Lymph % (Auto) [place] % (Auto) Lymph # [place] # Seg Neutrophils % Seg Neutrophils # PT INR APTT Activated Clotting Time 186 H D-Dimer Heparin Anti-Xa Level POC ABG pH POC ABG pCO2 POC ABG pO2 Sodium Potassium Chloride Carbon Dioxide BUN Creatinine Glucose POC Glucose 183 H 197 H Lactic Acid Calcium Total Bilirubin AST ALT C-Reactive Protein Total Protein Albumin Ur Specific Chromo Urine WBC (Auto) Miscellaneous Test Crossmatch 08/11/17 08/11/17 08/11/17 14:46 16:18 17:57 WBC 12.7 H RBC 3.00 L Hgb 9.5 L D POC Hgb Hct 28.3 L D POC Hct MCV MCH MCHC RDW 16.3 H Plt Count 105 L Lymph % (Auto) 6.7 L [place] % (Auto) Lymph # 0.8 L [place] # Seg Neutrophils % 86.3 H Seg Neutrophils # 10.9 H PT INR APTT Activated Clotting Time 164 H D-Dimer Heparin Anti-Xa Level POC ABG pH POC ABG pCO2 POC ABG pO2 Sodium Potassium Chloride Carbon Dioxide BUN Creatinine Glucose POC Glucose 192 H Lactic Acid Calcium Total Bilirubin AST ALT C-Reactive Protein Total Protein Albumin Ur Specific Chromo Urine WBC (Auto) Miscellaneous Test Crossmatch 08/11/17 08/11/17 08/11/17 17:57 20:00 20:00 WBC RBC Hgb 10.2 L POC Hgb Hct 31.1 L POC Hct MCV MCH MCHC RDW Plt Count 117 L Lymph % (Auto) [place] % (Auto) Lymph # [place] # Seg Neutrophils % Seg Neutrophils # PT 15.3 H INR 1.15 H APTT 97.7 H* Activated Clotting Time D-Dimer Heparin Anti-Xa Level POC ABG pH POC ABG pCO2 POC ABG pO2 Sodium Potassium Chloride 117.4 H Carbon Dioxide 18 L BUN Creatinine 0.7 L Glucose 143 H POC Glucose Lactic Acid Calcium 6.4 L D Total Bilirubin AST ALT C-Reactive Protein Total Protein Albumin Ur Specific Chromo Urine WBC (Auto) Miscellaneous Test Crossmatch 08/12/17 08/12/17 08/12/17 03:30 03:50 03:50 WBC RBC Hgb 9.2 L 9.1 L POC Hgb Hct 27.5 L 27.2 L POC Hct MCV MCH MCHC RDW Plt Count Lymph % (Auto) [place] % (Auto) Lymph # [place] # Seg Neutrophils % Seg Neutrophils # PT INR APTT Activated Clotting Time D-Dimer Heparin Anti-Xa Level POC ABG pH POC ABG pCO2 POC ABG pO2 Sodium Potassium Chloride 113.5 H Carbon Dioxide 13 L BUN Creatinine Glucose 243 H POC Glucose Lactic Acid Calcium 6.3 L Total Bilirubin AST ALT C-Reactive Protein Total Protein Albumin Ur Specific Chromo Urine WBC (Auto) Miscellaneous Test Crossmatch 08/12/17 08/12/17 08/12/17 07:36 08:48 16:16 WBC RBC Hgb POC Hgb Hct POC Hct MCV MCH MCHC RDW Plt Count Lymph % (Auto) [place] % (Auto) Lymph # [place] # Seg Neutrophils % Seg Neutrophils # PT INR APTT Activated Clotting Time D-Dimer Heparin Anti-Xa Level POC ABG pH 6.952 L 7.159 L POC ABG pCO2 49.1 H 47.8 H POC ABG pO2 76 L 106 H Sodium Potassium Chloride Carbon Dioxide BUN Creatinine Glucose POC Glucose 246 H Lactic Acid Calcium Total Bilirubin AST ALT C-Reactive Protein Total Protein Albumin Ur Specific Chromo Urine WBC (Auto) Miscellaneous Test Crossmatch 08/12/17 08/12/17 08/12/17 17:54 18:30 20:15 WBC 17.9 H RBC 3.29 L Hgb 10.0 L POC Hgb Hct 29.3 L POC Hct MCV MCH MCHC RDW 15.5 H Plt Count 76 L Lymph % (Auto) [place] % (Auto) Lymph # [place] # Seg Neutrophils % Seg Neutrophils # PT INR APTT Activated Clotting Time D-Dimer Heparin Anti-Xa Level POC ABG pH POC ABG pCO2 POC ABG pO2 Sodium Potassium Chloride Carbon Dioxide BUN Creatinine Glucose POC Glucose 240 H Lactic Acid Calcium Total Bilirubin AST ALT C-Reactive Protein Total Protein Albumin Ur Specific Chromo 1.051 H Urine WBC (Auto) > 182.0 H Miscellaneous Test Crossmatch 08/12/17 08/12/17 08/13/17 21:50 21:50 03:20 WBC RBC Hgb POC Hgb Hct POC Hct MCV MCH MCHC RDW Plt Count Lymph % (Auto) [place] % (Auto) Lymph # [place] # Seg Neutrophils % Seg Neutrophils # PT INR APTT Activated Clotting Time D-Dimer Heparin Anti-Xa Level < 0.10 L POC ABG pH POC ABG pCO2 POC ABG pO2 Sodium Potassium 5.4 H Chloride 110.8 H Carbon Dioxide 18 L BUN 30 H Creatinine 2.5 H D Glucose 216 H POC Glucose 235 H Lactic Acid Calcium 5.7 L* Total Bilirubin AST ALT C-Reactive Protein Total Protein Albumin Ur Specific Chromo Urine WBC (Auto) Miscellaneous Test Crossmatch 08/13/17 08/13/17 08/13/17 05:46 05:46 06:06 WBC 14.6 H RBC 2.49 L Hgb 7.6 L POC Hgb Hct 22.3 L D POC Hct MCV MCH MCHC RDW 15.7 H Plt Count 78 L Lymph % (Auto) 10.3 L [place] % (Auto) Lymph # [place] # Seg Neutrophils % 84.1 H Seg Neutrophils # 12.3 H PT INR APTT Activated Clotting Time D-Dimer Heparin Anti-Xa Level POC ABG pH 7.282 L POC ABG pCO2 POC ABG pO2 Sodium Potassium Chloride 107.5 H Carbon Dioxide 19 L BUN 35 H Creatinine 2.9 H Glucose 242 H POC Glucose Lactic Acid Calcium 6.3 L Total Bilirubin AST 1304 H ALT 533 H C-Reactive Protein Total Protein 4.4 L Albumin 2.8 L Ur Specific Chromo Urine WBC (Auto) Miscellaneous Test Crossmatch 08/13/17 08/13/17 08/13/17 07:10 07:10 09:00 WBC RBC Hgb POC Hgb Hct POC Hct MCV MCH MCHC RDW Plt Count Lymph % (Auto) [place] % (Auto) Lymph # [place] # Seg Neutrophils % Seg Neutrophils # PT 17.4 H INR 1.35 H APTT Activated Clotting Time D-Dimer 598.44 H Heparin Anti-Xa Level POC ABG pH POC ABG pCO2 POC ABG pO2 Sodium Potassium Chloride 107.2 H Carbon Dioxide 19 L BUN 35 H Creatinine 2.8 H Glucose 240 H POC Glucose Lactic Acid 3.10 H* Calcium 6.2 L Total Bilirubin AST ALT C-Reactive Protein Total Protein Albumin Ur Specific Chromo Urine WBC (Auto) Miscellaneous Test Crossmatch 08/13/17 08/13/17 08/13/17 17:55 18:31 21:19 WBC RBC Hgb POC Hgb Hct POC Hct MCV MCH MCHC RDW Plt Count Lymph % (Auto) [place] % (Auto) Lymph # [place] # Seg Neutrophils % Seg Neutrophils # PT INR APTT Activated Clotting Time D-Dimer Heparin Anti-Xa Level POC ABG pH 7.451 H POC ABG pCO2 33.0 L POC ABG pO2 53 L Sodium Potassium Chloride Carbon Dioxide BUN Creatinine Glucose POC Glucose 247 H Lactic Acid 2.20 H* Calcium Total Bilirubin AST ALT C-Reactive Protein Total Protein Albumin Ur Specific Chromo Urine WBC (Auto) Miscellaneous Test Crossmatch 08/13/17 08/14/17 08/14/17 23:34 00:10 05:00 WBC RBC Hgb POC Hgb Hct POC Hct MCV MCH MCHC RDW Plt Count Lymph % (Auto) [place] % (Auto) Lymph # [place] # Seg Neutrophils % Seg Neutrophils # PT 15.7 H INR 1.18 H APTT Activated Clotting Time D-Dimer 950.64 H Heparin Anti-Xa Level POC ABG pH POC ABG pCO2 POC ABG pO2 Sodium Potassium Chloride Carbon Dioxide BUN Creatinine Glucose POC Glucose 237 H Lactic Acid 2.70 H* Calcium Total Bilirubin AST ALT C-Reactive Protein Total Protein Albumin Ur Specific Chromo Urine WBC (Auto) Miscellaneous Test Crossmatch 08/14/17 08/14/17 08/14/17 05:00 05:11 10:26 WBC 14.2 H RBC 2.66 L Hgb 7.9 L POC Hgb Hct 23.2 L POC Hct MCV MCH MCHC RDW 16.0 H Plt Count 75 L Lymph % (Auto) [place] % (Auto) Lymph # [place] # Seg Neutrophils % Seg Neutrophils # PT INR APTT Activated Clotting Time D-Dimer Heparin Anti-Xa Level POC ABG pH POC ABG pCO2 POC ABG pO2 78 L Sodium Potassium Chloride Carbon Dioxide BUN Creatinine Glucose POC Glucose 227 H Lactic Acid Calcium Total Bilirubin AST ALT C-Reactive Protein Total Protein Albumin Ur Specific Chromo Urine WBC (Auto) Miscellaneous Test Crossmatch 08/14/17 08/14/17 08/14/17 11:28 11:28 12:06 WBC RBC Hgb POC Hgb Hct POC Hct MCV MCH MCHC RDW Plt Count Lymph % (Auto) [place] % (Auto) Lymph # [place] # Seg Neutrophils % Seg Neutrophils # PT INR APTT Activated Clotting Time D-Dimer Heparin Anti-Xa Level POC ABG pH POC ABG pCO2 POC ABG pO2 Sodium Potassium Chloride Carbon Dioxide BUN 43 H Creatinine 3.6 H Glucose 209 H POC Glucose 219 H Lactic Acid Calcium 7.6 L D Total Bilirubin AST ALT C-Reactive Protein 29.00 H Total Protein Albumin Ur Specific Chromo Urine WBC (Auto) Miscellaneous Test Crossmatch 08/14/17 08/14/17 08/14/17 17:57 19:54 23:23 WBC RBC Hgb POC Hgb Hct POC Hct MCV MCH MCHC RDW Plt Count Lymph % (Auto) [place] % (Auto) Lymph # [place] # Seg Neutrophils % Seg Neutrophils # PT INR APTT Activated Clotting Time D-Dimer Heparin Anti-Xa Level POC ABG pH POC ABG pCO2 46.5 H POC ABG pO2 64 L Sodium Potassium Chloride Carbon Dioxide BUN Creatinine Glucose POC Glucose 178 H 170 H Lactic Acid Calcium Total Bilirubin AST ALT C-Reactive Protein Total Protein Albumin Ur Specific Chromo Urine WBC (Auto) Miscellaneous Test Crossmatch 08/15/17 08/15/17 08/15/17 03:44 04:40 05:19 WBC 12.6 H RBC 2.49 L Hgb 7.4 L POC Hgb Hct 22.1 L POC Hct MCV MCH MCHC RDW 16.5 H Plt Count 64 L Lymph % (Auto) [place] % (Auto) Lymph # [place] # Seg Neutrophils % Seg Neutrophils # PT INR APTT Activated Clotting Time D-Dimer Heparin Anti-Xa Level POC ABG pH POC ABG pCO2 48.1 H POC ABG pO2 68 L Sodium Potassium Chloride Carbon Dioxide BUN Creatinine Glucose POC Glucose 154 H Lactic Acid Calcium Total Bilirubin AST ALT C-Reactive Protein Total Protein Albumin Ur Specific Chromo Urine WBC (Auto) Miscellaneous Test Crossmatch 08/15/17 08/15/17 08/15/17 12:20 13:22 18:05 WBC RBC Hgb POC Hgb Hct POC Hct MCV MCH MCHC RDW Plt Count Lymph % (Auto) [place] % (Auto) Lymph # [place] # Seg Neutrophils % Seg Neutrophils # PT INR APTT Activated Clotting Time D-Dimer Heparin Anti-Xa Level POC ABG pH POC ABG pCO2 POC ABG pO2 Sodium Potassium Chloride Carbon Dioxide BUN 45 H Creatinine 4.1 H Glucose 141 H POC Glucose 147 H 170 H Lactic Acid Calcium 7.8 L Total Bilirubin AST ALT C-Reactive Protein Total Protein Albumin Ur Specific Chromo Urine WBC (Auto) Miscellaneous Test Crossmatch 08/15/17 08/16/17 08/16/17 23:43 04:42 05:22 WBC 14.2 H RBC 2.54 L Hgb 7.5 L POC Hgb Hct 22.6 L POC Hct MCV MCH MCHC RDW 16.4 H Plt Count 73 L Lymph % (Auto) 6.6 L [place] % (Auto) 10.1 H Lymph # 0.9 L [place] # 1.4 H Seg Neutrophils % 83.1 H Seg Neutrophils # 11.8 H PT INR APTT Activated Clotting Time D-Dimer Heparin Anti-Xa Level POC ABG pH POC ABG pCO2 POC ABG pO2 71 L Sodium Potassium Chloride Carbon Dioxide BUN Creatinine Glucose POC Glucose 155 H Lactic Acid Calcium Total Bilirubin AST ALT C-Reactive Protein Total Protein Albumin Ur Specific Chromo Urine WBC (Auto) Miscellaneous Test Crossmatch 08/16/17 08/16/17 08/16/17 06:20 08:49 11:54 WBC RBC Hgb POC Hgb Hct POC Hct MCV MCH MCHC RDW Plt Count Lymph % (Auto) [place] % (Auto) Lymph # [place] # Seg Neutrophils % Seg Neutrophils # PT INR APTT Activated Clotting Time D-Dimer Heparin Anti-Xa Level POC ABG pH POC ABG pCO2 POC ABG pO2 Sodium Potassium Chloride Carbon Dioxide BUN Creatinine Glucose POC Glucose 165 H 191 H 188 H Lactic Acid Calcium Total Bilirubin AST ALT C-Reactive Protein Total Protein Albumin Ur Specific Chromo Urine WBC (Auto) Miscellaneous Test Crossmatch 08/16/17 08/16/17 08/16/17 13:00 18:32 23:33 WBC RBC Hgb POC Hgb Hct POC Hct MCV MCH MCHC RDW Plt Count Lymph % (Auto) [place] % (Auto) Lymph # [place] # Seg Neutrophils % Seg Neutrophils # PT INR APTT Activated Clotting Time D-Dimer Heparin Anti-Xa Level POC ABG pH POC ABG pCO2 POC ABG pO2 Sodium Potassium Chloride Carbon Dioxide BUN 47 H Creatinine 3.4 H Glucose 179 H POC Glucose 219 H 179 H Lactic Acid Calcium 8.2 L Total Bilirubin AST ALT C-Reactive Protein Total Protein Albumin Ur Specific Chromo Urine WBC (Auto) Miscellaneous Test Crossmatch 08/17/17 08/17/17 08/17/17 04:25 04:30 05:32 WBC 15.2 H RBC 2.60 L Hgb 7.6 L POC Hgb Hct 23.8 L POC Hct MCV MCH MCHC RDW 16.3 H Plt Count 92 L Lymph % (Auto) [place] % (Auto) Lymph # [place] # Seg Neutrophils % Seg Neutrophils # PT INR APTT Activated Clotting Time D-Dimer Heparin Anti-Xa Level POC ABG pH POC ABG pCO2 POC ABG pO2 57 L Sodium Potassium Chloride Carbon Dioxide BUN 63 H Creatinine 3.4 H Glucose 155 H POC Glucose Lactic Acid Calcium 8.3 L Total Bilirubin 1.40 H AST 99 H ALT 93 H C-Reactive Protein Total Protein 5.6 L D Albumin 3.1 L Ur Specific Chromo Urine WBC (Auto) Miscellaneous Test Crossmatch 08/17/17 08/17/17 08/17/17 06:36 12:37 17:44 WBC RBC Hgb POC Hgb Hct POC Hct MCV MCH MCHC RDW Plt Count Lymph % (Auto) [place] % (Auto) Lymph # [place] # Seg Neutrophils % Seg Neutrophils # PT INR APTT Activated Clotting Time D-Dimer Heparin Anti-Xa Level POC ABG pH POC ABG pCO2 POC ABG pO2 Sodium Potassium Chloride Carbon Dioxide BUN Creatinine Glucose POC Glucose 167 H 203 H 158 H Lactic Acid Calcium Total Bilirubin AST ALT C-Reactive Protein Total Protein Albumin Ur Specific Chromo Urine WBC (Auto) Miscellaneous Test Crossmatch 08/17/17 08/18/17 08/18/17 23:55 04:30 05:57 WBC RBC 2.40 L Hgb 7.3 L POC Hgb Hct 21.8 L POC Hct MCV MCH MCHC RDW 16.3 H Plt Count 95 L Lymph % (Auto) [place] % (Auto) Lymph # [place] # Seg Neutrophils % Seg Neutrophils # PT INR APTT Activated Clotting Time D-Dimer Heparin Anti-Xa Level POC ABG pH POC ABG pCO2 POC ABG pO2 Sodium Potassium Chloride Carbon Dioxide BUN Creatinine Glucose POC Glucose 146 H 179 H Lactic Acid Calcium Total Bilirubin AST ALT C-Reactive Protein Total Protein Albumin Ur Specific Chromo Urine WBC (Auto) Miscellaneous Test Crossmatch 08/18/17 08/18/17 08/18/17 08:20 08:20 08:32 WBC RBC Hgb POC Hgb Hct POC Hct MCV MCH MCHC RDW Plt Count Lymph % (Auto) [place] % (Auto) Lymph # [place] # Seg Neutrophils % Seg Neutrophils # PT INR APTT Activated Clotting Time D-Dimer Heparin Anti-Xa Level POC ABG pH POC ABG pCO2 POC ABG pO2 Sodium 146 H Potassium Chloride 108.4 H Carbon Dioxide BUN 62 H Creatinine 2.4 H Glucose 125 H POC Glucose 161 H Lactic Acid Calcium Total Bilirubin AST ALT C-Reactive Protein 13.90 H Total Protein Albumin Ur Specific Chromo Urine WBC (Auto) Miscellaneous Test Crossmatch 08/18/17 08/18/17 08/18/17 11:33 17:18 23:31 WBC RBC Hgb POC Hgb Hct POC Hct MCV MCH MCHC RDW Plt Count Lymph % (Auto) [place] % (Auto) Lymph # [place] # Seg Neutrophils % Seg Neutrophils # PT INR APTT Activated Clotting Time D-Dimer Heparin Anti-Xa Level POC ABG pH POC ABG pCO2 POC ABG pO2 Sodium Potassium Chloride Carbon Dioxide BUN Creatinine Glucose POC Glucose 165 H 126 H 166 H Lactic Acid Calcium Total Bilirubin AST ALT C-Reactive Protein Total Protein Albumin Ur Specific Chromo Urine WBC (Auto) Miscellaneous Test Crossmatch 08/19/17 08/19/17 08/19/17 04:33 05:00 05:44 WBC RBC 1.69 L Hgb 5.1 L* POC Hgb Hct 15.9 L* POC Hct MCV 95 H MCH MCHC RDW 17.1 H Plt Count 75 L Lymph % (Auto) [place] % (Auto) Lymph # [place] # Seg Neutrophils % Seg Neutrophils # PT INR APTT Activated Clotting Time D-Dimer Heparin Anti-Xa Level POC ABG pH POC ABG pCO2 POC ABG pO2 65 L Sodium Potassium Chloride Carbon Dioxide BUN Creatinine Glucose POC Glucose 174 H Lactic Acid Calcium Total Bilirubin AST ALT C-Reactive Protein Total Protein Albumin Ur Specific Chromo Urine WBC (Auto) Miscellaneous Test Crossmatch 08/19/17 08/19/17 08/19/17 08:26 09:45 11:05 WBC RBC Hgb 8.8 L D POC Hgb Hct 26.7 L D POC Hct MCV MCH MCHC RDW Plt Count Lymph % (Auto) [place] % (Auto) Lymph # [place] # Seg Neutrophils % Seg Neutrophils # PT INR APTT Activated Clotting Time D-Dimer Heparin Anti-Xa Level POC ABG pH POC ABG pCO2 POC ABG pO2 Sodium 151 H Potassium 3.3 L Chloride 112.5 H Carbon Dioxide BUN 65 H Creatinine 1.6 H Glucose 145 H POC Glucose Lactic Acid Calcium 7.9 L Total Bilirubin AST ALT C-Reactive Protein Total Protein Albumin Ur Specific Chromo Urine WBC (Auto) Miscellaneous Test Crossmatch See Detail 08/19/17 08/19/17 08/19/17 11:34 18:02 23:37 WBC RBC Hgb POC Hgb Hct POC Hct MCV MCH MCHC RDW Plt Count Lymph % (Auto) [place] % (Auto) Lymph # [place] # Seg Neutrophils % Seg Neutrophils # PT INR APTT Activated Clotting Time D-Dimer Heparin Anti-Xa Level POC ABG pH POC ABG pCO2 POC ABG pO2 Sodium Potassium Chloride Carbon Dioxide BUN Creatinine Glucose POC Glucose 166 H 224 H 222 H Lactic Acid Calcium Total Bilirubin AST ALT C-Reactive Protein Total Protein Albumin Ur Specific Chromo Urine WBC (Auto) Miscellaneous Test Crossmatch 08/20/17 08/20/17 08/20/17 04:26 04:45 04:45 WBC 14.4 H RBC 2.97 L Hgb 8.9 L POC Hgb Hct 26.9 L POC Hct MCV MCH MCHC RDW 16.8 H Plt Count Lymph % (Auto) [place] % (Auto) Lymph # [place] # Seg Neutrophils % Seg Neutrophils # PT INR APTT Activated Clotting Time D-Dimer Heparin Anti-Xa Level POC ABG pH 7.497 H POC ABG pCO2 33.4 L POC ABG pO2 68 L Sodium 153 H Potassium Chloride 112.8 H Carbon Dioxide BUN 71 H Creatinine 1.7 H Glucose 244 H POC Glucose Lactic Acid Calcium Total Bilirubin AST ALT C-Reactive Protein Total Protein Albumin Ur Specific Chromo Urine WBC (Auto) Miscellaneous Test Crossmatch 08/20/17 08/20/17 08/20/17 05:42 12:25 12:31 WBC RBC Hgb POC Hgb Hct POC Hct MCV MCH MCHC RDW Plt Count Lymph % (Auto) [place] % (Auto) Lymph # [place] # Seg Neutrophils % Seg Neutrophils # PT INR APTT Activated Clotting Time D-Dimer Heparin Anti-Xa Level POC ABG pH POC ABG pCO2 POC ABG pO2 Sodium Potassium Chloride Carbon Dioxide BUN Creatinine Glucose POC Glucose 224 H 274 H Lactic Acid Calcium Total Bilirubin AST ALT C-Reactive Protein Total Protein Albumin Ur Specific Chromo Urine WBC (Auto) Miscellaneous Test Flexitest 1 H Crossmatch 08/20/17 08/20/17 08/20/17 17:56 22:25 23:52 WBC RBC Hgb POC Hgb Hct POC Hct MCV MCH MCHC RDW Plt Count Lymph % (Auto) [place] % (Auto) Lymph # [place] # Seg Neutrophils % Seg Neutrophils # PT INR APTT Activated Clotting Time D-Dimer Heparin Anti-Xa Level POC ABG pH POC ABG pCO2 POC ABG pO2 Sodium Potassium Chloride Carbon Dioxide BUN Creatinine Glucose POC Glucose 267 H 241 H Lactic Acid Calcium Total Bilirubin AST ALT C-Reactive Protein 22.10 H Total Protein Albumin Ur Specific Chromo Urine WBC (Auto) Miscellaneous Test Crossmatch 08/21/17 08/21/17 08/21/17 04:15 04:15 05:50 WBC 13.3 H RBC 2.84 L Hgb 8.3 L POC Hgb Hct 26.8 L POC Hct MCV MCH MCHC 31 L RDW 17.8 H Plt Count Lymph % (Auto) [place] % (Auto) Lymph # [place] # Seg Neutrophils % Seg Neutrophils # PT INR APTT Activated Clotting Time D-Dimer Heparin Anti-Xa Level POC ABG pH POC ABG pCO2 POC ABG pO2 Sodium 158 H Potassium 3.2 L Chloride 118.8 H Carbon Dioxide BUN 74 H Creatinine 1.8 H Glucose 227 H POC Glucose 230 H Lactic Acid Calcium Total Bilirubin AST ALT C-Reactive Protein Total Protein Albumin Ur Specific Chromo Urine WBC (Auto) Miscellaneous Test Crossmatch 08/21/17 08/21/17 08/21/17 06:23 11:04 11:44 WBC RBC Hgb POC Hgb Hct POC Hct MCV MCH MCHC RDW Plt Count Lymph % (Auto) [place] % (Auto) Lymph # [place] # Seg Neutrophils % Seg Neutrophils # PT INR APTT Activated Clotting Time D-Dimer Heparin Anti-Xa Level POC ABG pH POC ABG pCO2 46.6 H POC ABG pO2 74 L 52 L Sodium Potassium Chloride Carbon Dioxide BUN Creatinine Glucose POC Glucose 327 H Lactic Acid Calcium Total Bilirubin AST ALT C-Reactive Protein Total Protein Albumin Ur Specific Chromo Urine WBC (Auto) Miscellaneous Test Crossmatch 08/21/17 08/21/17 08/22/17 12:34 18:08 00:28 WBC RBC Hgb POC Hgb Hct POC Hct MCV MCH MCHC RDW Plt Count Lymph % (Auto) [place] % (Auto) Lymph # [place] # Seg Neutrophils % Seg Neutrophils # PT INR APTT Activated Clotting Time D-Dimer Heparin Anti-Xa Level POC ABG pH POC ABG pCO2 POC ABG pO2 Sodium Potassium Chloride Carbon Dioxide BUN Creatinine Glucose POC Glucose 285 H 262 H 252 H Lactic Acid Calcium Total Bilirubin AST ALT C-Reactive Protein Total Protein Albumin Ur Specific Chromo Urine WBC (Auto) Miscellaneous Test Crossmatch 08/22/17 08/22/17 08/22/17 06:20 07:15 12:11 WBC RBC Hgb POC Hgb Hct POC Hct MCV MCH MCHC RDW Plt Count Lymph % (Auto) [place] % (Auto) Lymph # [place] # Seg Neutrophils % Seg Neutrophils # PT INR APTT Activated Clotting Time D-Dimer Heparin Anti-Xa Level POC ABG pH POC ABG pCO2 POC ABG pO2 Sodium 156 H Potassium 3.2 L Chloride 117.4 H Carbon Dioxide BUN 71 H Creatinine 1.6 H Glucose 217 H POC Glucose 231 H 246 H Lactic Acid Calcium 8.3 L Total Bilirubin AST ALT C-Reactive Protein Total Protein Albumin Ur Specific Chromo Urine WBC (Auto) Miscellaneous Test Crossmatch 08/22/17 08/22/17 08/23/17 17:15 19:47 00:13 WBC RBC Hgb POC Hgb Hct POC Hct MCV MCH MCHC RDW Plt Count Lymph % (Auto) [place] % (Auto) Lymph # [place] # Seg Neutrophils % Seg Neutrophils # PT INR APTT Activated Clotting Time D-Dimer Heparin Anti-Xa Level POC ABG pH POC ABG pCO2 POC ABG pO2 67 L Sodium Potassium Chloride Carbon Dioxide BUN Creatinine Glucose POC Glucose 227 H 225 H Lactic Acid Calcium Total Bilirubin AST ALT C-Reactive Protein Total Protein Albumin Ur Specific Chromo Urine WBC (Auto) Miscellaneous Test Crossmatch 08/23/17 08/23/17 08/23/17 06:20 06:20 11:07 WBC 13.8 H RBC 2.72 L Hgb 8.1 L POC Hgb Hct 25.7 L POC Hct MCV 95 H MCH MCHC RDW 17.8 H Plt Count Lymph % (Auto) [place] % (Auto) Lymph # [place] # Seg Neutrophils % Seg Neutrophils # PT INR APTT Activated Clotting Time D-Dimer Heparin Anti-Xa Level POC ABG pH POC ABG pCO2 POC ABG pO2 Sodium 155 H Potassium Chloride 118.5 H Carbon Dioxide BUN 64 H Creatinine Glucose 202 H POC Glucose 253 H Lactic Acid Calcium 8.2 L Total Bilirubin 1.50 H AST ALT C-Reactive Protein Total Protein 4.9 L Albumin 2.5 L Ur Specific Chromo Urine WBC (Auto) Miscellaneous Test Crossmatch 08/23/17 08/23/17 08/24/17 15:40 17:13 00:13 WBC RBC Hgb POC Hgb Hct POC Hct MCV MCH MCHC RDW Plt Count Lymph % (Auto) [place] % (Auto) Lymph # [place] # Seg Neutrophils % Seg Neutrophils # PT INR APTT Activated Clotting Time D-Dimer Heparin Anti-Xa Level POC ABG pH POC ABG pCO2 POC ABG pO2 65 L Sodium Potassium Chloride Carbon Dioxide BUN Creatinine Glucose POC Glucose 236 H 170 H Lactic Acid Calcium Total Bilirubin AST ALT C-Reactive Protein Total Protein Albumin Ur Specific Chromo Urine WBC (Auto) Miscellaneous Test Crossmatch 08/24/17 08/24/17 08/24/17 06:20 06:20 11:16 WBC 15.3 H RBC 2.87 L Hgb 8.6 L POC Hgb Hct 27.5 L POC Hct MCV 96 H MCH MCHC 31 L RDW 17.6 H Plt Count Lymph % (Auto) [place] % (Auto) Lymph # [place] # Seg Neutrophils % Seg Neutrophils # PT INR APTT Activated Clotting Time D-Dimer Heparin Anti-Xa Level POC ABG pH POC ABG pCO2 POC ABG pO2 Sodium 156 H Potassium Chloride 118.7 H Carbon Dioxide BUN 60 H Creatinine Glucose 163 H POC Glucose 212 H Lactic Acid Calcium Total Bilirubin AST ALT C-Reactive Protein Total Protein Albumin Ur Specific Chromo Urine WBC (Auto) Miscellaneous Test Crossmatch 08/24/17 08/24/17 08/24/17 11:43 16:52 16:59 WBC RBC Hgb POC Hgb Hct POC Hct MCV MCH MCHC RDW Plt Count Lymph % (Auto) [place] % (Auto) Lymph # [place] # Seg Neutrophils % Seg Neutrophils # PT 15.1 H INR APTT Activated Clotting Time D-Dimer Heparin Anti-Xa Level POC ABG pH POC ABG pCO2 POC ABG pO2 59 L Sodium Potassium Chloride Carbon Dioxide BUN Creatinine Glucose POC Glucose 250 H Lactic Acid Calcium Total Bilirubin AST ALT C-Reactive Protein Total Protein Albumin Ur Specific Chromo Urine WBC (Auto) Miscellaneous Test Crossmatch 08/24/17 08/25/17 08/25/17 23:46 04:21 05:45 WBC RBC Hgb POC Hgb Hct POC Hct MCV MCH MCHC RDW Plt Count Lymph % (Auto) [place] % (Auto) Lymph # [place] # Seg Neutrophils % Seg Neutrophils # PT INR APTT Activated Clotting Time D-Dimer Heparin Anti-Xa Level POC ABG pH 7.461 H POC ABG pCO2 POC ABG pO2 Sodium Potassium Chloride Carbon Dioxide BUN Creatinine Glucose POC Glucose 255 H 252 H Lactic Acid Calcium Total Bilirubin AST ALT C-Reactive Protein Total Protein Albumin Ur Specific Chromo Urine WBC (Auto) Miscellaneous Test Crossmatch 08/25/17 08/25/17 08/25/17 08:38 08:38 12:08 WBC 17.1 H RBC 2.75 L Hgb 8.4 L POC Hgb Hct 26.4 L POC Hct MCV 96 H MCH MCHC RDW 17.7 H Plt Count Lymph % (Auto) [place] % (Auto) Lymph # [place] # Seg Neutrophils % Seg Neutrophils # PT INR APTT Activated Clotting Time D-Dimer Heparin Anti-Xa Level POC ABG pH POC ABG pCO2 POC ABG pO2 Sodium 152 H Potassium 3.4 L Chloride 115.6 H Carbon Dioxide BUN 66 H Creatinine Glucose 297 H POC Glucose 245 H Lactic Acid Calcium 8.2 L Total Bilirubin AST ALT C-Reactive Protein Total Protein Albumin Ur Specific Chromo Urine WBC (Auto) Miscellaneous Test Crossmatch 08/25/17 08/25/17 08/26/17 18:26 23:44 05:47 WBC RBC Hgb POC Hgb Hct POC Hct MCV MCH MCHC RDW Plt Count Lymph % (Auto) [place] % (Auto) Lymph # [place] # Seg Neutrophils % Seg Neutrophils # PT INR APTT Activated Clotting Time D-Dimer Heparin Anti-Xa Level POC ABG pH POC ABG pCO2 POC ABG pO2 Sodium Potassium Chloride Carbon Dioxide BUN Creatinine Glucose POC Glucose 162 H 173 H 188 H Lactic Acid Calcium Total Bilirubin AST ALT C-Reactive Protein Total Protein Albumin Ur Specific Chromo Urine WBC (Auto) Miscellaneous Test Crossmatch 08/26/17 08/26/17 08/26/17 07:35 10:44 11:26 WBC RBC Hgb POC Hgb Hct POC Hct MCV MCH MCHC RDW Plt Count Lymph % (Auto) [place] % (Auto) Lymph # [place] # Seg Neutrophils % Seg Neutrophils # PT INR APTT Activated Clotting Time D-Dimer Heparin Anti-Xa Level POC ABG pH POC ABG pCO2 POC ABG pO2 Sodium 159 H Potassium 3.3 L Chloride 122.4 H Carbon Dioxide BUN 61 H Creatinine Glucose 183 H POC Glucose 148 H Lactic Acid Calcium 8.1 L Total Bilirubin AST ALT C-Reactive Protein 10.90 H Total Protein Albumin Ur Specific Chromo Urine WBC (Auto) Miscellaneous Test Crossmatch 08/26/17 08/26/17 08/27/17 17:52 18:16 00:10 WBC RBC Hgb POC Hgb Hct POC Hct MCV MCH MCHC RDW Plt Count Lymph % (Auto) [place] % (Auto) Lymph # [place] # Seg Neutrophils % Seg Neutrophils # PT INR APTT Activated Clotting Time D-Dimer Heparin Anti-Xa Level POC ABG pH POC ABG pCO2 POC ABG pO2 Sodium 156 H Potassium Chloride 120.3 H Carbon Dioxide BUN 58 H Creatinine Glucose 160 H POC Glucose 154 H 187 H Lactic Acid Calcium 8.2 L Total Bilirubin AST ALT C-Reactive Protein Total Protein Albumin Ur Specific Chromo Urine WBC (Auto) Miscellaneous Test Crossmatch 08/27/17 08/27/17 05:25 09:25 WBC RBC 2.62 L Hgb 7.9 L POC Hgb Hct 25.6 L POC Hct MCV 98 H MCH MCHC 31 L RDW 18.1 H Plt Count Lymph % (Auto) 8.9 L [place] % (Auto) Lymph # 1.0 L [place] # Seg Neutrophils % 83.7 H Seg Neutrophils # 9.1 H PT INR APTT Activated Clotting Time D-Dimer Heparin Anti-Xa Level POC ABG pH POC ABG pCO2 POC ABG pO2 Sodium Potassium Chloride Carbon Dioxide BUN Creatinine Glucose POC Glucose 168 H Lactic Acid Calcium Total Bilirubin AST ALT C-Reactive Protein Total Protein Albumin Ur Specific Chromo Urine WBC (Auto) Miscellaneous Test Crossmatch Allied health notes reviewed: RT
[2017-08-27 10:02] LABS: Calcium 7.9 mg/dL (8.4-10.2)
[2017-08-27] MEDS: COREG PO SCH (10:56)
[2017-08-27] MEDS: Centrum Liq PO SCH (10:56)
[2017-08-27] MEDS: VITAMIN B-1 PO SCH (10:56)
[2017-08-27] MEDS: BABY ASPIRIN PO SCH (10:57)
[2017-08-27] MEDS: FOLVITE PO SCH (10:57)
[2017-08-27] MEDS: PAXIL PO SCH (10:57)
[2017-08-27] MEDS: NORVASC PO SCH (10:57)
[2017-08-27] MEDS: PEPCID PO SCH (10:57)
[2017-08-27] MEDS: LANTUS SUB-Q SCH (10:58)
[2017-08-27] MEDS: DULCOLAX PR SCH (10:58)
[2017-08-27] MEDS: OPTH OS SCH (10:59)
[2017-08-27] MEDS: [UNRECOGNIZED DRUG - OTHER] OS SCH (10:59)
[2017-08-27] MEDS: VANCOMYCIN 2,000 MG in NACL 0.9% 500 ML 500 ML IV SCH (10:59)
--- NOTE | 2017-08-27 13:26 | Progress Note ---
Assessment and Plan /Acute hypoxic respiratory failure - patient remained intubated unable to wean down secondary to altered mental status. - Attempt to wean sedation caused patient developed agitation. - s/p trach and PEG 08/24/17 /Acute toxic metabolic Encephalopathy: Improving, now follows commands. /Vasogenic shock, now resolved -at present blood pressure is stable. /Acute kidney injury secondary to ATN, shock oliguria. Now resolved, Creatinine at 1.1 Patient was on hemodialysis prn, managed by Nephrology. /Hypernatremia - hypokalemia - hypotonic fluid, replete Kcl /Metabolic acidosis resolved /Fever, resolved - Repeat blood cultures drawn with no growth . ID Physician consulted, following /Thrombocytopenia , now resolved. /PVD - status post common femoral endarterectomy followed for vascular surgery /Acute Blood loss anemia- s/p massive blood transfuson. Total 14 Units PRBC /Diabetes type 2 - fairly well controlled with insulin sliding scale would not change at this particular time - cont tube feeding /Hypertension. BP much stable with current management Brief History: Patient is 66 year old male with past medical history of hypertension, Type 2 DM , hyperlipidemia, CAD, PAD, who underwent elective vascular procedure for R [employer] , and is postop femoral endarterectomy and iliac artery stenting. Patient became hypotensive, required multiple fluid resuscitation and blood products. Also began to exhibit some altered mental status for which were consulted. He was intubated and transferred to ICU, s/p trach and PEG on 08/24/17 Hospitalist Physical General:Not in acute distress, lying in bed,morbidly obese,i HEENT:Normocephalic, atraumatic Neck:supple, trach in place Lungs:Clear to auscultation bilaterally , no rales , no wheeze Heart:S1 and S2 regular, no murmurs, rubs or gallop Abd: soft, non tender, non distended, normal bowel sounds, PEG in place Ext: leg edema, no clubbing or cyanosis Neuro: opens eyes, more alert, now follows commands, tries to talk Subjective Date of service: 08/27/17 Principal diagnosis: Acute Hypoxemic Respiratory Failure; Hemorrhagic Shock; WILLIAM on Dilaysis;PVD Interval history: Pt seen and examined Plan to d/c L-tac today, afebrile Discussed with RN Objective - Constitutional Vitals: Vital Signs - 12hr 08/27/17 08/27/1708/27/18 01:30 02:00 02:30 Temperature Pulse Rate 96 H 93 H 103 H Pulse Rate [ From Monitor] Respiratory 17 20 16 Rate Blood Pressure 129/81 119/68 139/74 O2 Sat by Pulse 100 95 98 Oximetry O2 Sat by Pulse Oximetry [ Assessment] 08/27/17 08/27/17 08/27/17 03:00 03:13 03:30 Temperature 97.8 F Pulse Rate 87 74 Pulse Rate [ From Monitor] Respiratory 17 14 Rate Blood Pressure 132/69 122/67 O2 Sat by Pulse 98 97 Oximetry O2 Sat by Pulse Oximetry [ Assessment] 08/27/17 08/27/17 08/27/17 04:00 04:28 04:30 Temperature Pulse Rate 76 83 Pulse Rate [ 91 H From Monitor] Respiratory 18 20 Rate Blood Pressure 124/73 136/79 O2 Sat by Pulse 78 L 92 Oximetry O2 Sat by Pulse 97 Oximetry [ Assessment] 08/27/17 08/27/17 08/27/17 05:00 05:30 05:56 Temperature Pulse Rate 88 89 87 Pulse Rate [ From Monitor] Respiratory 16 18 Rate Blood Pressure 136/72 138/82 141/73 O2 Sat by Pulse 98 100 Oximetry O2 Sat by Pulse Oximetry [ Assessment] 08/27/17 08/27/17 08/27/17 06:00 06:30 07:00 Temperature Pulse Rate 101 H 97 H 94 H Pulse Rate [ From Monitor] Respiratory 16 15 20 Rate Blood Pressure 141/73 128/82 137/76 O2 Sat by Pulse 100 Oximetry O2 Sat by Pulse Oximetry [ Assessment] 08/27/17 08/27/17 08/27/17 07:30 08:00 08:30 Temperature 98.5 F Pulse Rate 84 88 91 H Pulse Rate [ 106 H From Monitor] Respiratory 17 19 18 Rate Blood Pressure 143/61 131/68 136/66 O2 Sat by Pulse 89 96 91 Oximetry O2 Sat by Pulse Oximetry [ Assessment] 08/27/17 08/27/17 08/27/17 09:00 09:30 10:00 Temperature Pulse Rate 94 H 90 103 H Pulse Rate [ From Monitor] Respiratory 21 16 22 Rate Blood Pressure 127/66 130/75 140/68 O2 Sat by Pulse 91 92 Oximetry O2 Sat by Pulse Oximetry [ Assessment] 08/27/17 08/27/17 08/27/17 10:30 10:56 10:57 Temperature Pulse Rate 102 H 104 H 92 H Pulse Rate [ From Monitor] Respiratory 18 Rate Blood Pressure 151/74 144/75 144/75 O2 Sat by Pulse 93 Oximetry O2 Sat by Pulse Oximetry [ Assessment] 08/27/17 08/27/17 08/27/17 11:00 11:30 12:00 Temperature 98.2 F Pulse Rate 96 H 91 H 91 H Pulse Rate [ 93 H From Monitor] Respiratory 20 21 16 Rate Blood Pressure 144/71 141/75 135/71 O2 Sat by Pulse 94 74 L 91 Oximetry O2 Sat by Pulse Oximetry [ Assessment] - Labs CBC & Chem 7: 08/27/17 09:25 08/27/17 09:25 Labs: Abnormal lab results 08/26/17 08/26/17 08/27/17 Range/Units 17:52 18:16 00:10 RBC (3.65-5.03) M/mm3 Hgb (11.8-15.2) gm/dl Hct (35.5-45.6) % MCV (84-94) fl MCHC (32-34) % RDW (13.2-15.2) % Lymph % (Auto) (13.4-35.0) % Lymph # (1.2-5.4) K/mm3 Seg Neutrophils % (40.0-70.0) % Seg Neutrophils # (1.8-7.7) K/mm3 Sodium 156 H (137-145) mmol/L Potassium (3.6-5.0) mmol/L Chloride 120.3 H (98-107) mmol/L BUN 58 H (9-20) mg/dL Glucose 160 H (75-100) mg/dL POC Glucose 154 H 187 H (70-105) Calcium 8.2 L (8.4-10.2) mg/dL 08/27/17 08/27/17 08/27/17 Range/Units 05:25 09:25 09:25 RBC 2.62 L (3.65-5.03) M/mm3 Hgb 7.9 L (11.8-15.2) gm/dl Hct 25.6 L (35.5-45.6) % MCV 98 H (84-94) fl MCHC 31 L (32-34) % RDW 18.1 H (13.2-15.2) % Lymph % (Auto) 8.9 L (13.4-35.0) % Lymph # 1.0 L (1.2-5.4) K/mm3 Seg Neutrophils % 83.7 H (40.0-70.0) % Seg Neutrophils # 9.1 H (1.8-7.7) K/mm3 Sodium 153 H (137-145) mmol/L Potassium 3.5 L (3.6-5.0) mmol/L Chloride 116.7 H (98-107) mmol/L BUN 54 H (9-20) mg/dL Glucose 151 H (75-100) mg/dL POC Glucose 168 H (70-105) Calcium 7.9 L (8.4-10.2) mg/dL 08/27/17 Range/Units 12:19 RBC (3.65-5.03) M/mm3 Hgb (11.8-15.2) gm/dl Hct (35.5-45.6) % MCV (84-94) fl MCHC (32-34) % RDW (13.2-15.2) % Lymph % (Auto) (13.4-35.0) % Lymph # (1.2-5.4) K/mm3 Seg Neutrophils % (40.0-70.0) % Seg Neutrophils # (1.8-7.7) K/mm3 Sodium (137-145) mmol/L Potassium (3.6-5.0) mmol/L Chloride (98-107) mmol/L BUN (9-20) mg/dL Glucose (75-100) mg/dL POC Glucose 173 H (70-105) Calcium (8.4-10.2) mg/dL
[2017-08-27 13:52] VITALS: BP 119/64
--- NOTE | 2017-08-27 15:16 | Progress Note ---
Assessment and Plan Assessment: 1) Sepsis with intermittent hypovolemic +/- septic shock: Shock resolved, with new fever and worsening leukocytosis-all resolved. Sepsis Etiology ?? unclear - possibilities VAP . CRP=22/Procal 0.3 2) Presumed VAP: CXR showed bibasilar perihilar and bibasilar opacities and right mod pleural effusion, left mild pleural effusion. 3) Acute respiratory failure: for airway protection - better 4) Acute encephalopathy: multifactorial - better 5) UTI: inital UA c/w UTI, urine cx negative. Repeat UA neg 6) Right lower extremity chronic ischemia with short distance claudication: -S/P elective right common femoral endarterectomy with patch angioplasty, bilateral common iliac and right external artery stenting on 08/11/17 7) Ruptured pseudoaneurysm left groin/external iliac: -CTA showed retroperitoneal hemorrhage and bladder thickening. -S/P deployment of new Viabond stent graft across the inguinal ligament into the common femoral artery on 08/13/17. 8) WILLIAM 9) Anasarca Plan: -f/u respiratory cultures, blood cx and CRP/Procal in view of new fever on 08/26 -continue vancomycin and cefepime renally dosed - D8/10 Thank you for your consultation, will follow up with you. Tasia Baldwin MD Infectious Diseases Specialist [facility] [id number] [phone] [id number] [phone] Subjective Date of service: 08/27/17 Principal diagnosis: Acute Hypoxemic Respiratory Failure; Hemorrhagic Shock; WILLIAM on Dilaysis;PVD Interval history: Feels better, alert, still on CPAP via trach. No fever Microbiology: Blood cultures: 08/14 neg 08/20 neg Urine cultures: 08/14 neg 08/20 ngtd Current Antimicrobials: vanco 08/20 cefepime 08/20 Previous Antimicrobials: doxycycline 08/14 Objective - Exam Narrative Exam: General appearance: alert on the vent via trach Eyes: anicteric sclerae, moist conjunctivae; no lid-lag; HENT: Atraumatic; oropharynx limited Neck: Trach in place Lungs: bilateral rhonchi CV: RRR Abdomen: Soft, non-tender;+PEG Extremities: +kati marked leg edema Skin: +decreased massive scrotal edema + kati groin wounds Psych: alert Neuro: alert Lines: right IJ, left arm PICC - Constitutional Vitals: Vital Signs Temp Pulse Resp BP Pulse Ox 98.2 F 93 H 16 119/64 93 08/27/17 12:00 08/27/17 12:00 08/27/17 12:00 08/27/17 12:00 08/27/17 12:00 Temperature -Last 24 Hours Temperature 98.2 F Temperature 98.5 F Temperature 95.1 F Temperature 97.8 F Temperature 98 F Temperature 97.9 F Temperature 98.1 F - Labs CBC & Chem 7: 08/27/17 09:25 08/27/17 09:25 Labs: Abnormal lab results 08/26/17 08/26/17 08/27/17 Range/Units 17:52 18:16 00:10 RBC (3.65-5.03) M/mm3 Hgb (11.8-15.2) gm/dl Hct (35.5-45.6) % MCV (84-94) fl MCHC (32-34) % RDW (13.2-15.2) % Lymph % (Auto) (13.4-35.0) % Lymph # (1.2-5.4) K/mm3 Seg Neutrophils % (40.0-70.0) % Seg Neutrophils # (1.8-7.7) K/mm3 Sodium 156 H (137-145) mmol/L Potassium (3.6-5.0) mmol/L Chloride 120.3 H (98-107) mmol/L BUN 58 H (9-20) mg/dL Glucose 160 H (75-100) mg/dL POC Glucose 154 H 187 H (70-105) Calcium 8.2 L (8.4-10.2) mg/dL 08/27/17 08/27/17 08/27/17 Range/Units 05:25 09:25 09:25 RBC 2.62 L (3.65-5.03) M/mm3 Hgb 7.9 L (11.8-15.2) gm/dl Hct 25.6 L (35.5-45.6) % MCV 98 H (84-94) fl MCHC 31 L (32-34) % RDW 18.1 H (13.2-15.2) % Lymph % (Auto) 8.9 L (13.4-35.0) % Lymph # 1.0 L (1.2-5.4) K/mm3 Seg Neutrophils % 83.7 H (40.0-70.0) % Seg Neutrophils # 9.1 H (1.8-7.7) K/mm3 Sodium 153 H (137-145) mmol/L Potassium 3.5 L (3.6-5.0) mmol/L Chloride 116.7 H (98-107) mmol/L BUN 54 H (9-20) mg/dL Glucose 151 H (75-100) mg/dL POC Glucose 168 H (70-105) Calcium 7.9 L (8.4-10.2) mg/dL 08/27/17 Range/Units 12:19 RBC (3.65-5.03) M/mm3 Hgb (11.8-15.2) gm/dl Hct (35.5-45.6) % MCV (84-94) fl MCHC (32-34) % RDW (13.2-15.2) % Lymph % (Auto) (13.4-35.0) % Lymph # (1.2-5.4) K/mm3 Seg Neutrophils % (40.0-70.0) % Seg Neutrophils # (1.8-7.7) K/mm3 Sodium (137-145) mmol/L Potassium (3.6-5.0) mmol/L Chloride (98-107) mmol/L BUN (9-20) mg/dL Glucose (75-100) mg/dL POC Glucose 173 H (70-105) Calcium (8.4-10.2) mg/dL
--- NOTE | 2017-08-27 16:20 | Progress Note ---
Assessment and Plan Pt awake. Off vent on oxygen supplementation via the trach. Appears to continue to improve. Abx per ID. Pt for transfer to LTACH later today. - Patient Problems (1) Atherosclerosis of [place] arteries of extremity with intermittent claudication Current Visit: No Status: Acute (2) Abdominal distention Current Visit: Yes Status: Acute (3) Acute renal failure due to tubular necrosis Current Visit: Yes Status: Acute (4) Hemorrhagic shock Current Visit: Yes Status: Acute (5) Metabolic acidosis Current Visit: Yes Status: Acute Subjective Date of service: 08/27/17 Principal diagnosis: Acute Hypoxemic Respiratory Failure; Hemorrhagic Shock; WILLIAM on Dilaysis;PVD Interval history: Pt awake. Off vent. O2 supplementation connected to trach. Objective - Constitutional Vitals: Vital Signs - 12hr 08/27/17 08/27/17 08/27/17 04:28 04:30 05:00 Temperature Pulse Rate 83 88 Pulse Rate [ From Monitor] Respiratory 20 16 Rate Blood Pressure 136/79 136/72 O2 Sat by Pulse 92 98 Oximetry O2 Sat by Pulse 97 Oximetry [ Assessment] 08/27/17 08/27/17 08/27/17 05:30 05:56 06:00 Temperature Pulse Rate 89 87 101 H Pulse Rate [ From Monitor] Respiratory 18 16 Rate Blood Pressure 138/82 141/73 141/73 O2 Sat by Pulse 100 100 Oximetry O2 Sat by Pulse Oximetry [ Assessment] 08/27/17 08/27/17 08/27/17 06:30 07:00 07:30 Temperature Pulse Rate 97 H 94 H 84 Pulse Rate [ From Monitor] Respiratory 15 20 17 Rate Blood Pressure 128/82 137/76 143/61 O2 Sat by Pulse 89 Oximetry O2 Sat by Pulse Oximetry [ Assessment] 08/27/17 08/27/17 08/27/17 08:00 08:30 09:00 Temperature 98.5 F Pulse Rate 88 91 H 94 H Pulse Rate [ 106 H From Monitor] Respiratory 19 18 21 Rate Blood Pressure 131/68 136/66 127/66 O2 Sat by Pulse 96 91 91 Oximetry O2 Sat by Pulse Oximetry [ Assessment] 08/27/17 08/27/17 08/27/17 09:30 10:00 10:30 Temperature Pulse Rate 90 103 H 102 H Pulse Rate [ From Monitor] Respiratory 16 22 18 Rate Blood Pressure 130/75 140/68 151/74 O2 Sat by Pulse 92 93 Oximetry O2 Sat by Pulse Oximetry [ Assessment] 08/27/17 08/27/17 08/27/17 10:56 10:57 11:00 Temperature Pulse Rate 104 H 92 H 96 H Pulse Rate [ From Monitor] Respiratory 20 Rate Blood Pressure 144/75 144/75 144/71 O2 Sat by Pulse 94 Oximetry O2 Sat by Pulse Oximetry [ Assessment] 08/27/17 08/27/17 08/27/17 11:30 12:00 12:30 Temperature 98.2 F Pulse Rate 91 H 85 90 Pulse Rate [ 93 H From Monitor] Respiratory 21 16 20 Rate Blood Pressure 141/75 119/64 135/71 O2 Sat by Pulse 74 L 93 Oximetry O2 Sat by Pulse Oximetry [ Assessment] 08/27/17 08/27/17 08/27/17 13:00 13:30 14:00 Temperature Pulse Rate 90 79 104 H Pulse Rate [ From Monitor] Respiratory 20 16 14 Rate Blood Pressure 141/73 119/61 119/64 O2 Sat by Pulse 85 92 95 Oximetry O2 Sat by Pulse Oximetry [ Assessment] 08/27/17 08/27/17 08/27/17 14:30 15:00 15:30 Temperature Pulse Rate 90 79 88 Pulse Rate [ From Monitor] Respiratory 18 17 15 Rate Blood Pressure 137/65 120/66 113/61 O2 Sat by Pulse 96 97 98 Oximetry O2 Sat by Pulse Oximetry [ Assessment] 08/27/17 15:53 Temperature Pulse Rate 85 Pulse Rate [ From Monitor] Respiratory Rate Blood Pressure 119/64 O2 Sat by Pulse Oximetry O2 Sat by Pulse Oximetry [ Assessment] General appearance: Present: no acute distress - EENT Eyes: PERRL ENT: hearing intact - Neck Neck: other (trach in place) - Respiratory Respiratory effort: other (on O2 supplementation through trach) Extremities: no ischemia, normal temperature - Gastrointestinal General gastrointestinal: Present: soft - Psychiatric Psychiatric: appropriate mood/affect, intact judgment & insight, cooperative - Labs CBC & Chem 7: 08/27/17 09:25 08/27/17 09:25 Labs: Abnormal lab results 08/26/17 08/26/17 08/27/17 Range/Units 17:52 18:16 00:10 RBC (3.65-5.03) M/mm3 Hgb (11.8-15.2) gm/dl Hct (35.5-45.6) % MCV (84-94) fl MCHC (32-34) % RDW (13.2-15.2) % Lymph % (Auto) (13.4-35.0) % Lymph # (1.2-5.4) K/mm3 Seg Neutrophils % (40.0-70.0) % Seg Neutrophils # (1.8-7.7) K/mm3 Sodium 156 H (137-145) mmol/L Potassium (3.6-5.0) mmol/L Chloride 120.3 H (98-107) mmol/L BUN 58 H (9-20) mg/dL Glucose 160 H (75-100) mg/dL POC Glucose 154 H 187 H (70-105) Calcium 8.2 L (8.4-10.2) mg/dL 08/27/17 08/27/17 08/27/17 Range/Units 05:25 09:25 09:25 RBC 2.62 L (3.65-5.03) M/mm3 Hgb 7.9 L (11.8-15.2) gm/dl Hct 25.6 L (35.5-45.6) % MCV 98 H (84-94) fl MCHC 31 L (32-34) % RDW 18.1 H (13.2-15.2) % Lymph % (Auto) 8.9 L (13.4-35.0) % Lymph # 1.0 L (1.2-5.4) K/mm3 Seg Neutrophils % 83.7 H (40.0-70.0) % Seg Neutrophils # 9.1 H (1.8-7.7) K/mm3 Sodium 153 H (137-145) mmol/L Potassium 3.5 L (3.6-5.0) mmol/L Chloride 116.7 H (98-107) mmol/L BUN 54 H (9-20) mg/dL Glucose 151 H (75-100) mg/dL POC Glucose 168 H (70-105) Calcium 7.9 L (8.4-10.2) mg/dL 08/27/17 Range/Units 12:19 RBC (3.65-5.03) M/mm3 Hgb (11.8-15.2) gm/dl Hct (35.5-45.6) % MCV (84-94) fl MCHC (32-34) % RDW (13.2-15.2) % Lymph % (Auto) (13.4-35.0) % Lymph # (1.2-5.4) K/mm3 Seg Neutrophils % (40.0-70.0) % Seg Neutrophils # (1.8-7.7) K/mm3 Sodium (137-145) mmol/L Potassium (3.6-5.0) mmol/L Chloride (98-107) mmol/L BUN (9-20) mg/dL Glucose (75-100) mg/dL POC Glucose 173 H (70-105) Calcium (8.4-10.2) mg/dL
--- NOTE | 2017-08-27 17:00 | Progress Note ---
Assessment and Plan - Patient Problems (1) Acute renal failure due to tubular necrosis Current Visit: Yes Status: Acute Plan to address problem: Acute renal failure / acute tubular necrosis, in recovery phase. Follow up electrolytes and renal function. (2) Hypernatremia Current Visit: Yes Status: Acute Plan to address problem: Continue D5W along with increased free water flushes via PEG at 300 cc q4h (3) Hypokalemia Current Visit: Yes Status: Acute Plan to address problem: Supplement potassium and follow up levels. (4) Hemorrhagic shock Current Visit: Yes Status: Acute Plan to address problem: Status post multiple transfusions. hb stable at 8,4 (5) Metabolic acidosis Current Visit: Yes Status: Acute Plan to address problem: mostly due to hyperchloremic met acidosis. cont D5W/free water flushes (6) Hypocalcemia Current Visit: Yes Status: Acute Plan to address problem: Supplemental calcium as indicated. (7) Atherosclerosis of [place] arteries of extremity with intermittent claudication Current Visit: No Status: Acute Plan to address problem: Continue management per vascular surgeon (8) Anemia Current Visit: Yes Status: Acute Plan to address problem: Hemoglobin improved. Continue to Follow-up hemoglobin Subjective Date of service: 08/27/17 Principal diagnosis: Acute Hypoxemic Respiratory Failure; Hemorrhagic Shock; WILLIAM on Dilaysis;PVD Interval history: pt remains on vent, s/p trach/PEG. Objective - Vital Signs Vital signs: Vital Signs - 12hr 08/27/17 08/27/17 08/27/17 05:00 05:30 05:56 Temperature Pulse Rate 88 89 87 Pulse Rate [ From Monitor] Respiratory 16 18 Rate Blood Pressure 136/72 138/82 141/73 O2 Sat by Pulse 98 100 Oximetry 08/27/17 08/27/17 08/27/17 06:00 06:30 07:00 Temperature Pulse Rate 101 H 97 H 94 H Pulse Rate [ From Monitor] Respiratory 16 15 20 Rate Blood Pressure 141/73 128/82 137/76 O2 Sat by Pulse 100 Oximetry 08/27/17 08/27/17 08/27/17 07:30 08:00 08:30 Temperature 98.5 F Pulse Rate 84 88 91 H Pulse Rate [ 106 H From Monitor] Respiratory 17 19 18 Rate Blood Pressure 143/61 131/68 136/66 O2 Sat by Pulse 89 96 91 Oximetry 08/27/17 08/27/1708/27/18 09:00 09:30 10:00 Temperature Pulse Rate 94 H 90 103 H Pulse Rate [ From Monitor] Respiratory 21 16 22 Rate Blood Pressure 127/66 130/75 140/68 O2 Sat by Pulse 91 92 Oximetry 08/27/17 08/27/17 08/27/17 10:30 10:56 10:57 Temperature Pulse Rate 102 H 104 H 92 H Pulse Rate [ From Monitor] Respiratory 18 Rate Blood Pressure 151/74 144/75 144/75 O2 Sat by Pulse 93 Oximetry 08/27/17 08/27/17 08/27/17 11:00 11:30 12:00 Temperature 98.2 F Pulse Rate 96 H 91 H 85 Pulse Rate [ 93 H From Monitor] Respiratory 20 21 16 Rate Blood Pressure 144/71 141/75 119/64 O2 Sat by Pulse 94 74 L 93 Oximetry 08/27/17 08/27/17 08/27/17 12:30 13:00 13:30 Temperature Pulse Rate 90 90 79 Pulse Rate [ From Monitor] Respiratory 20 20 16 Rate Blood Pressure 135/71 141/73 119/61 O2 Sat by Pulse 85 92 Oximetry 08/27/17 08/27/17 08/27/17 14:00 14:30 15:00 Temperature Pulse Rate 104 H 90 79 Pulse Rate [ From Monitor] Respiratory 14 18 17 Rate Blood Pressure 119/64 137/65 120/66 O2 Sat by Pulse 95 96 97 Oximetry 08/27/17 08/27/17 15:30 15:53 Temperature Pulse Rate 88 85 Pulse Rate [ From Monitor] Respiratory 15 Rate Blood Pressure 113/61 119/64 O2 Sat by Pulse 98 Oximetry - General Appearance General appearance: well-developed, well-nourished, appears stated age EENT: ATNC, PERRL, mucous membranes moist Neck: no JVD Respiratory: Present: Clear to Ascultation Cardiology: regular, S1S2 Gastrointestinal: normoactive bowel sounds, distended Integumentary: no rash Neurologic: no focal deficit, alert and oriented x3, strength 5/5, CN 3-12 intact Psychiatric: mood/affect appropriate, cooperative - Lab 08/27/17 09:25 08/27/17 09:25 Most recent lab results Calcium 7.9 mg/dL (8.4-10.2) L 08/27/17 09:25 Phosphorus 2.60 mg/dL (2.5-4.5) 08/24/17 06:20 Magnesium 2.10 mg/dL (1.7-2.3) 08/24/17 06:20
== END 2017-08-27 16:20 | DRG 3 ==
LOC: 3A 08-11 06:14 → CC1 08-11 17:16
PROVIDERS: ADMIT Surgery Vascular Surgery; ATTEND Surgery Vascular Surgery
PROC: 04CK0ZZ Extirpation of Matter from Right Femoral Artery, Open Approach (ICD-10-PCS; 2017-08-12)
PROC: 04UK0KZ Supplement Right Femoral Artery with Nonautologous Tissue Substitute, Open Approach (ICD-10-PCS; 2017-08-12)
PROC: 047H34Z Dilation of Right External Iliac Artery with Drug-eluting Intraluminal Device, Percutaneous Approach (ICD-10-PCS; 2017-08-12)
PROC: 047D34Z Dilation of Left Common Iliac Artery with Drug-eluting Intraluminal Device, Percutaneous Approach (ICD-10-PCS; 2017-08-12)
PROC: 047C34Z Dilation of Right Common Iliac Artery with Drug-eluting Intraluminal Device, Percutaneous Approach (ICD-10-PCS; 2017-08-12)
PROC: B41G1ZZ Fluoroscopy of Left Lower Extremity Arteries using Low Osmolar Contrast (ICD-10-PCS; 2017-08-12)
PROC: B41F1ZZ Fluoroscopy of Right Lower Extremity Arteries using Low Osmolar Contrast (ICD-10-PCS; 2017-08-12)
PROC: 05HM33Z Insertion of Infusion Device into Right Internal Jugular Vein, Percutaneous Approach (ICD-10-PCS; 2017-08-12)
PROC: B543ZZA Ultrasonography of Right Jugular Veins, Guidance (ICD-10-PCS; 2017-08-12)
PROC: 30233L1 Transfusion of Nonautologous Fresh Plasma into Peripheral Vein, Percutaneous Approach (ICD-10-PCS; 2017-08-12)
PROC: 30233N1 Transfusion of Nonautologous Red Blood Cells into Peripheral Vein, Percutaneous Approach (ICD-10-PCS; 2017-08-12)
PROC: 30233K1 Transfusion of Nonautologous Frozen Plasma into Peripheral Vein, Percutaneous Approach (ICD-10-PCS; 2017-08-12)
PROC: 4A033R1 Measurement of Arterial Saturation, Peripheral, Percutaneous Approach (ICD-10-PCS; 2017-08-12)
PROC: 5A09357 Assistance with Respiratory Ventilation, Less than 24 Consecutive Hours, Continuous Positive Airway Pressure (ICD-10-PCS; 2017-08-12)
PROC: 04VK3DZ Restriction of Right Femoral Artery with Intraluminal Device, Percutaneous Approach (ICD-10-PCS; 2017-08-13)
PROC: B41F1ZZ Fluoroscopy of Right Lower Extremity Arteries using Low Osmolar Contrast (ICD-10-PCS; 2017-08-13)
PROC: 02HV33Z Insertion of Infusion Device into Superior Vena Cava, Percutaneous Approach (ICD-10-PCS; 2017-08-13)
PROC: B548ZZA Ultrasonography of Superior Vena Cava, Guidance (ICD-10-PCS; 2017-08-13)
PROC: 5A1D70Z Performance of Urinary Filtration, Intermittent, Less than 6 Hours Per Day (ICD-10-PCS; 2017-08-13)
PROC: 5A1D70Z Performance of Urinary Filtration, Intermittent, Less than 6 Hours Per Day (ICD-10-PCS; 2017-08-14)
PROC: 5A1D70Z Performance of Urinary Filtration, Intermittent, Less than 6 Hours Per Day (ICD-10-PCS; 2017-08-15)
PROC: 5A1D70Z Performance of Urinary Filtration, Intermittent, Less than 6 Hours Per Day (ICD-10-PCS; 2017-08-17)
PROC: 02HV33Z Insertion of Infusion Device into Superior Vena Cava, Percutaneous Approach (ICD-10-PCS; 2017-08-20)
PROC: 5A1955Z Respiratory Ventilation, Greater than 96 Consecutive Hours (ICD-10-PCS; 2017-08-22)
PROC: 0BH17EZ Insertion of Endotracheal Airway into Trachea, Via Natural or Artificial Opening (ICD-10-PCS; 2017-08-22)
PROC: 0B113F4 Bypass Trachea to Cutaneous with Tracheostomy Device, Percutaneous Approach (ICD-10-PCS; principal; 2017-08-24)
PROC: 05HM33Z Insertion of Infusion Device into Right Internal Jugular Vein, Percutaneous Approach (ICD-10-PCS; 2017-08-24)
PROC: B543ZZA Ultrasonography of Right Jugular Veins, Guidance (ICD-10-PCS; 2017-08-24)
PROC: 0BJ08ZZ Inspection of Tracheobronchial Tree, Via Natural or Artificial Opening Endoscopic (ICD-10-PCS; 2017-08-24)
PROC: 0DH63UZ Insertion of Feeding Device into Stomach, Percutaneous Approach (ICD-10-PCS; 2017-08-24)
PROC: 0D9670Z Drainage of Stomach with Drainage Device, Via Natural or Artificial Opening (ICD-10-PCS; 2017-08-25)
DX: I70.213 Atherosclerosis of native arteries of extremities with intermittent claudication, bilateral legs (principal); N17.0 Acute kidney failure with tubular necrosis; J96.01 Acute respiratory failure with hypoxia; A41.9 Sepsis, unspecified organism; R65.21 Severe sepsis with septic shock; J96.02 Acute respiratory failure with hypercapnia; G93.40 Encephalopathy, unspecified; R57.8 Other shock; E87.2 Acidosis; D62 Acute posthemorrhagic anemia; E87.0 Hyperosmolality and hypernatremia; F17.210 Nicotine dependence, cigarettes, uncomplicated; I10 Essential (primary) hypertension; E11.51 Type 2 diabetes mellitus with diabetic peripheral angiopathy without gangrene; E78.2 Mixed hyperlipidemia; D72.829 Elevated white blood cell count, unspecified; E83.51 Hypocalcemia; D69.6 Thrombocytopenia, unspecified; N40.0 Benign prostatic hyperplasia without lower urinary tract symptoms; F10.10 Alcohol abuse, uncomplicated; Y90.9 Presence of alcohol in blood, level not specified; I25.10 Atherosclerotic heart disease of native coronary artery without angina pectoris; E87.5 Hyperkalemia; I65.23 Occlusion and stenosis of bilateral carotid arteries; Z88.2 Allergy status to sulfonamides; Z79.51 Long term (current) use of inhaled steroids; Z79.84 Long term (current) use of oral hypoglycemic drugs; Z79.899 Other long term (current) drug therapy; Z95.1 Presence of aortocoronary bypass graft; Z95.828 Presence of other vascular implants and grafts; I72.3 Aneurysm of iliac artery; R58 Hemorrhage, not elsewhere classified
CPT/HCPCS: 36415; 36430; 36600; 36620; 71045; 74018; 74174; 75630; 80048; 80053; 80074; 80202; 81001; 82140; 82803; 82962; 83735; 84100; 85014; 85018; 85025; 85027; 85049; 85347; 85379; 85384; 85520; 85610; 85730; 86022; 86140; 86850; 86900; 86901; 86920; 87040; 87070; 87086; 87205; 88304; 88311; 93005; 93010; 93306; 93970; 93975; 94002; 94003; 94660; 94760; A4649; C1724; C1725; C1757; C1760; C1768; C1769; C1874; C1887; C1894; J0360; J0461; J0610; J0690; J0692; J0883; J0885; J1170; J1644; J1815; J1956; J2001; J2060; J2250; J2270; J2370; J2405; J2440; J2704; J2710; J2720; J2765; J3010; J3246; J3370; J3411; J3475; J3480; J3490; J7030; J7040; J7050; J7070; P9016; P9017; P9045; P9047; Q9966; Q9967

== ENCOUNTER 2017-08-31 22:43 | Inpatient (IN) | payer OTHER, MEDICARE ==
[2017-08-31] MEDS ORDERED: NACL 0.9% 1000 ML IV ONE (22:52)
[2017-08-31] MEDS ORDERED: DILAUDID IV PRN (22:52)
[2017-08-31] MEDS ORDERED: TYLENOL PO PRN (22:52)
[2017-08-31] MEDS ORDERED: ZOSYN/NS 4.5GM/100ML 4.5 GM/100 ML VIAL IV SCH (23:00)
[2017-08-31] MEDS ORDERED: NACL 0.9% 1000 ML 1,000 ML IV ONE (23:00)
[2017-08-31] MEDS ORDERED: VANCOMYCIN 2,000 MG in NACL 0.9% 500 ML 500 ML IV ONE (23:15)
--- NOTE | 2017-08-31 23:32 | History and Physical Report ---
History of Present Illness Date of examination: 08/31/17 Date of admission: 08/31/17 22:43 Chief complaint: Extensive Pneumoperitoneum, Septic shock, History of present illness: Pt is a 66-year-old gentleman who has a history of diabetes mellitus type 2, coronary artery disease, hyperlipidemia, peripheral artery disease, hypertension , was initially admitted to [facility] on 08/11/2017 for elective right femoral and atherectomy with patch angioplasty with bilateral, femoral artery and right external artery stent placement for chronic short distance claudication. Patient developed hypotension after the procedure and had to be resuscitated with multiple fluid and blood products." Mental status. CT scan of the abdomen showed that he had a retroperitoneal hemorrhage and pleuritic in femoral pseudoaneurysm of the left groin and external iliac present progressed and went into respiratory distress was intubated and connected to vent. Developed fever and Sepsis. ID consult was obtained. Blood cultures where unremarkable. Was placed on IV antibiotics. CHAO showed ejection fraction of 30-35% as of 08/15/2017 with no vegetation. Sepsis improved tracheostomy and PEG tube placed. Patient subsequently was transferred over to LTAC. Patient had progressively worsening abdomen distention today. CT scan of abdomen was ordered. Extensive pneumoperitoneum identified. Patient was said to have had hypotension patient was given metoprolol. However wasn't clear whether this was a result of evolving sepsis or dose of metoprolol. Patient was given IV fluid. Systolic blood pressure was still in the 80s. He was commenced on Levophed. Blood pressure improved. Patient had no fever, nausea vomiting. Patient remained lethargic. He was therefore readmitted back to ICU on account of extensive pneumoperitoneum with possible septic shock. Blood culture and urine culture was ordered. Patient was commenced on IV vancomycin and Zosyn and Levaquin. Pharmacokinetic consult obtained. Discussed at length with patient's and son. Surgical consult with and discussed with Dr. Howard was obtained. Past History Past Medical History: CAD, diabetes, hypertension Past Surgical History: Other (rt femoral endarterectomy) Social history: lives with family, smoking, alcohol abuse Family history: no significant family history Medications and Allergies Allergies Allergy/AdvReac Type Severity Reaction Status Date / Time Sulfa (Sulfonamide Allergy rash, Verified 08/05/17 10:59 Antibiotics) swelling Home Medications Medication Instructions Recorded Confirmed Last Taken Type Amlodipine Besylate [Norvasc] 10 mg PO DAILY 05/05/17 08/05/17 08/11/17 05:30 History Aspirin [Lo-Dose Aspirin EC] 81 mg PO DAILY 05/05/17 08/05/17 08/11/17 05:30 History Cilostazol [Pletal] 100 mg PO BID 05/05/17 08/05/17 08/11/17 05:30 History Diclofenac Sodium 75 mg PO DAILY 05/05/17 08/05/17 08/11/17 05:30 History Labetalol HCl 300 mg PO TID 05/05/17 08/05/17 08/11/17 05:30 History PARoxetine [Paxil] 20 mg PO DAILY 05/05/17 08/05/17 08/11/17 05:30 History Valsartan-Hctz 320-25 mg Tab 1 tab PO DAILY 05/05/17 08/05/17 08/11/17 05:30 History metFORMIN [Glucophage] 500 mg PO BID 05/05/17 08/11/17 08/10/17 History HYDROcodone/APAP 7.5-325 [[place] 1 each PO Q6HR PRN #20 tablet 05/12/17 08/05/17 Unknown Rx 7.5/325] Active Meds: Active Medications Acetaminophen (Tylenol) 650 mg PO Q6H PRN PRN Reason: Pain, Mild (1-3) Famotidine (Pepcid) 20 mg IV QAM [facility] Hydromorphone HCl (Dilaudid) 0.25 mg IV Q4H PRN PRN Reason: Pain, Moderate (4-6) Sodium Chloride (Nacl 0.9% 1000 Ml) 1,000 mls @ 125 mls/hr IV ONCE ONE Stop: 09/01/17 06:59 Piperacillin Sod/Tazobactam Sod (Zosyn/Ns 4.5gm/100ml) 4.5 gm in 100 mls @ 200 mls/hr IV Q8H [facility]; Protocol Stop: 08/31/17 23:29 Vancomycin HCl 2,000 mg/ (Sodium Chloride) 520 mls @ 250 mls/hr IV ONCE ONE Stop: 09/01/17 01:19 Levofloxacin/Dextrose (Levaquin 750mg/150ml) 750 mg in 150 mls @ 100 mls/hr IV ONCE ONE Stop: 09/01/17 03:29 Vancomycin HCl (Vancomycin Pharmacy To Dose) 1 each IV PKCONSULT [facility] Review of Systems ROS unobtainable: due to mental status Exam - Constitutional General appearance: Present: other (trach) - EENT Eyes: Present: PERRL, EOM intact - Neck Neck: Present: supple - Respiratory Respiratory: bilateral: diminished - Cardiovascular Rhythm: regular - Extremities Extremity abnormal: edema (3 +) - Abdominal General gastrointestinal: Present: non-tender, distended, absent bowel sounds - Integumentary Integumentary: Present: clear, warm, dry - Musculoskeletal Musculoskeletal: generalized weakness - Psychiatric Psychiatric: agitated - Neurologic Neurologic: moves all extremities Results - Labs CBC & Chem 7: 09/01/17 04:10 08/31/17 22:50 Assessment and Plan - Extensive Pneumonperitonium per CT abdomen and pelvis Possibly from ruptured viscus. Discontinued PEG tube feeding. Placed on nothing by mouth, NGT to low intermittnet suction Consulted and Discussed with surgeon Dr. Simmons ID consult - Septic shock Blood, urine and trach aspirate culture ordered Was on Lovaphed and iv hydration prior to transfer. SBP now 130. Lovephe d/jenfier Lactic acid level now and q 3 hrs IV hydration Commenced pt on Vanc, Zosyn and Levaquin - Acute on chronic hypoxemic respiratory failure s/p trach Continue with bronchodilator. Discussed with Pulm Dr. Snow prior to transfer - Acute renal failure from [facility] Nephrology conuslt - Toxic Metabolic encephalopathy likely secondary to sepsis - PAD s/p end arterectomy right femoral artery with patchy angioplasty - s/p post ruptured pseudoaneurysm - Pnuemonia Blood and sputum cultres ordered Vanc, Levaquin and Zosyn - DVT with SCD. will told anticoagulation new retroperitonela or Gi bleeding is excluded and pt still has elevated BUN and Cr with nrmarkable Cr.
[2017-08-31] MEDS ORDERED: PEPCID IV SCH (23:45)
[2017-08-31] MEDS ORDERED: VANCOMYCIN/NS 1 GM/250 ML 1 GM/250 ML BAG IV SCH (23:45)
[2017-08-31] MEDS ORDERED: VANCOMYCIN PHARMACY TO DOSE IV SCH (23:45)
--- NOTE | 2017-08-31 23:58 | Consultation ---
History of Present Illness Consult date: 08/31/17 Chief complaint: pneumoperitoneum - History of present illness History of present illness: 66 yo M with hx of recent hospitalization in July 2017 for a lower extremity vascular procedure. He underwent right common femoral endarterectomy with patch angioplasty, bilateral common iliac and right external artery stenting, ultrasound guided left common femoral access on 08/11/17. The day after the procedure the patient developed hypotension and was started on pressors, kept on the ventilator, and transfused multiple units of blood. He was found to have extravasation from his right external iliac artery and underwent angiogram with stent placement on 08/12/17. The patient was unable to be weaned from the vent and underwent a trach/PEG by our service on 08/24/17. He was subsequently transferred to [facility] on 08/28. Per nursing the patient has been tachycardic and agitated while on the unit. He received a dose of lopressor IV today for tachycardia after which his BP dropped to the 80s. He received a bolus of NS and then was started on low dose levophed. Since then his BP has been in the 120 -130 and HR 110s. The patient is awake and able to answer questions. He denies abdominal pain. His PEG tube was hooked up to suction and has put out >1L of bilious gastric contents. He has been afebrile. Lactate drawn this PM is 0.7. Hb is stable, but last CBC was drawn yesterday. Medications and Allergies Allergies Allergy/AdvReac Type Severity Reaction Status Date / Time Sulfa (Sulfonamide Allergy rash, Verified 08/05/17 10:59 Antibiotics) swelling Home Medications Medication Instructions Recorded Confirmed Last Taken Type Amlodipine Besylate [Norvasc] 10 mg PO DAILY 05/05/17 08/05/17 08/11/17 05:30 History Aspirin [Lo-Dose Aspirin EC] 81 mg PO DAILY 05/05/17 08/05/17 08/11/17 05:30 History Cilostazol [Pletal] 100 mg PO BID 05/05/17 08/05/17 08/11/17 05:30 History Diclofenac Sodium 75 mg PO DAILY 05/05/17 08/05/17 08/11/17 05:30 History Labetalol HCl 300 mg PO TID 05/05/17 08/05/17 08/11/17 05:30 History PARoxetine [Paxil] 20 mg PO DAILY 05/05/17 08/05/17 08/11/17 05:30 History Valsartan-Hctz 320-25 mg Tab 1 tab PO DAILY 05/05/17 08/05/17 08/11/17 05:30 History metFORMIN [Glucophage] 500 mg PO BID 05/05/17 08/11/17 08/10/17 History HYDROcodone/APAP 7.5-325 [[place] 1 each PO Q6HR PRN #20 tablet 05/12/17 08/05/17 Unknown Rx 7.5/325] Active Meds: Active Medications Acetaminophen (Tylenol) 650 mg PO Q6H PRN PRN Reason: Pain, Mild (1-3) Famotidine (Pepcid) 20 mg IV QAM [facility] Hydromorphone HCl (Dilaudid) 0.25 mg IV Q4H PRN PRN Reason: Pain, Moderate (4-6) Sodium Chloride (Nacl 0.9% 1000 Ml) 1,000 mls @ 125 mls/hr IV ONCE ONE Stop: 09/01/17 06:59 Vancomycin HCl 2,000 mg/ (Sodium Chloride) 520 mls @ 250 mls/hr IV ONCE ONE Stop: 09/01/17 01:19 Levofloxacin/Dextrose (Levaquin 500mg/100ml) 500 mg in 100 mls @ 100 mls/hr IV ONCE ONE Stop: 09/01/17 02:59 Vancomycin HCl (Vancomycin Pharmacy To Dose) 1 each IV PKCONSULT [facility] Review of Systems All systems: negative (limited ROS performed as patient is on vent via tracheostomy) Exam Narrative exam: Gen: Awake and alert on the vent via trach. Answers yes/no questions appropriately. Pt smiles during the interview and comfortable. Appears restless at times wanting to remove mitts from hands but redirectable during exam. ENT: Tracheostomy is place, site c/d/i CV: S1, S2+ Resp: even and unlabored Abd: soft, mildly distended in epigastrum. PEG tube site c/d/i - hooked to wall suction with bilious output. fullness in RLQ with mild TTP to deep palpation. no r/r/g. PEG tube bumper at 10cm at skin, pulled back gently to 6cm. Ext: trace pedal edema b/l Results - Labs 08/31/17 22:52 08/31/17 22:50 - Imaging CT scan - abdomen: report reviewed, image reviewed CT scan - pelvis: report reviewed, image reviewed Assessment and Plan 66 yo M with pneumoperitoneum ?etiology Labs and physical exam do not support peritonitis, intaabdominal infection, sepsis. The patient's hypotension was transient and may have been related to administration of IV bblocker. His BP is stable now and he is off pressors. Pneumoperitoneum could be related to distension of stomach and leakage of air from around PEG site vs other source. No free fluid in abdomen. No obstruction. Stat labs show stable Hb and normal WBC, BMP stable. 1. patient transferred to ICU by 1' 2. serial abdominal exams 3. monitor VS 4. At the moment, the patient appears stable without signs of a surgical abdomen on exam. If patients physical exam or labs worsen, will consider performing diagnostic laparoscopy. Will watch the patient carefully overnight. 5. c/w PEG to LCWS 6. vent management per CCU team 7. repeat am labs D/W patient's and son at the bedside and they understand. D/W Dr. Ayala
[2017-09-01] MEDS ORDERED: ZOSYN/NS 4.5GM/100ML 4.5 GM/100 ML VIAL IV SCH
[2017-09-01 00:26] LABS: Basophils % (Auto) 0.1 % (0.0-1.8); Eosinophils % (Auto) 0.1 % (0.0-4.3); Hematocrit 27.6 % (35.5-45.6); Hemoglobin 8.6 gm/dl (11.8-15.2); Lymphocytes # (Auto) 0.9 K/mm3 (1.2-5.4); Lymphocytes % (Auto) 10.8 % (13.4-35.0); Mean Corpuscular HGB Conc 31 % (32-34); Mean Corpuscular Hemoglobin 31 pg (28-32); Mean Corpuscular Volume 98 fl (84-94); Monocytes # (Auto) 0.4 K/mm3 (0.0-0.8); Platelet Count 172 K/mm3 (140-440); Red Blood Count 2.82 M/mm3 (3.65-5.03); Red Cell Distribution Width 19.5 % (13.2-15.2)
[2017-09-01] MEDS ORDERED: D5W/0.45% NACL/KCL 10 MEQ 10 MEQ/1,000 ML BAG IV SCH (01:00)
[2017-09-01 01:05] LABS: Albumin 2.9 g/dL (3.9-5); Calcium 8.1 mg/dL (8.4-10.2)
[2017-09-01] MEDS ORDERED: LEVAQUIN 500MG/100ML 500 MG/100 ML BAG IV ONE (02:00)
[2017-09-01] MEDS ORDERED: LEVAQUIN 750MG/150ML 750 MG/150 ML BAG IV ONE (02:00)
--- NOTE | 2017-09-01 02:38 | XRay Report ---
FINAL REPORT PROCEDURE: XR CHEST 1V AP TECHNIQUE: Chest radiograph anteroposterior view. CPT 21473 HISTORY: Acute respiratory failure. COMPARISON: Chest radiograph dated 08/22/2017. CT scan of the abdomen and pelvis dated 08/31/2017. FINDINGS: Heart: Mild cardiomegaly. Mediastinum/Vessels: Aortic calcification. Lungs/Pleural space: Low lung volumes. Perihilar indistinctness with bibasilar opacities and possible small right pleural effusion. Bony thorax: Sternotomy. Mild osteopenia and degenerative changes of the spine. Life support devices: Tracheostomy tube, tip at the level of the clavicles. Right IJ catheter tip in the SVC. Other: There is a moderate amount of free intraperitoneal air. IMPRESSION: Mild cardiomegaly. Aortic calcification. Low lung volumes with perihilar indistinctness and bibasilar opacities and possible small right pleural effusion. Consider congestive heart failure with atelectasis, cannot exclude pneumonia. Moderate amount of free intraperitoneal air. In the absence of recent surgery/intervention, concerning for bowel perforation.
[2017-09-01 04:25] LABS: Hematocrit 26.3 % (35.5-45.6); Hemoglobin 8.3 gm/dl (11.8-15.2)
[2017-09-01 05:26] LABS: Bilirubin,Urine NEG (Negative); Blood,Urine LG (Negative); Color,Urine Yellow (Yellow); Mucus,Urine FEW /HPF; Urobilinogen,Urine < 2.0 mg/dL (<2.0)
[2017-09-01] MEDS ORDERED: ZOSYN/NS 3.375GM/50ML 3.375 GM/50 ML BAG IV SCH (06:00)
--- NOTE | 2017-09-01 08:31 | Consultation ---
History of Present Illness - Reason for Consult Consult date: 09/01/17 acute renal failure Requesting physician: HEMANTH LOPEZ - History of Present Illness 66-year-old male who is known to me from recent hospitalization last month for elective right femoral atherectomy and patch angioplasty with bilateral femeral and Rt iliac stent placement for claudication. Postoperatively, patient developed hypotension and a retroperitoneal hemorrhage secondary to Femoral and external iliac pseudoaneurysm. He received massive transfusion and developed multisystem organ failure. He was unable to wean off the ventilator and so tracheostomy and PEG tube were placed and patient was transferred to [facility] on August 14. Patient developed progressive abdominal distention at [facility] over the last few days and a CT of the abdomen showed extensive pneumoperitoneum. Patient became hypotensive after receiving a dose of metoprolol and there was concern for him developing sepsis and so he was transferred to intensive care unit when he did not respond to volume resuscitation. Patient has been seen by surgeon and NG tube was placed on 1 L of Bilous gastric content was obtained. He is on Empiric Vancomycin and Zosyn and Levaquin. BUN and creatinine elevated at 51/ 1.6mg/dl and Sodium high at 156 mmols/l. I'm consulted to assist in managing this. Patient is unable to give a history and so history is obtained from review of the records and my previous knowledge of the patient. Past History Past Medical History: CAD, diabetes, hypertension Past Surgical History: Other (rt femoral endarterectomy) Social history: lives with family, smoking, alcohol abuse Family history: no significant family history Medications and Allergies Allergies Allergy/AdvReac Type Severity Reaction Status Date / Time Sulfa (Sulfonamide Allergy rash, Verified 08/05/17 10:59 Antibiotics) swelling Home Medications Medication Instructions Recorded Confirmed Last Taken Type Amlodipine Besylate [Norvasc] 10 mg PO DAILY 05/05/17 09/01/17 08/11/17 05:30 History Aspirin [Lo-Dose Aspirin EC] 81 mg PO DAILY 05/05/17 09/01/17 08/11/17 05:30 History Cilostazol [Pletal] 100 mg PO BID 05/05/17 09/01/17 08/11/17 05:30 History Diclofenac Sodium 75 mg PO DAILY 05/05/17 09/01/17 08/11/17 05:30 History Labetalol HCl 300 mg PO TID 05/05/17 09/01/17 08/11/17 05:30 History PARoxetine [Paxil] 20 mg PO DAILY 05/05/17 09/01/17 08/11/17 05:30 History Valsartan-Hctz 320-25 mg Tab 1 tab PO DAILY 05/05/17 09/01/17 08/11/17 05:30 History metFORMIN [Glucophage] 500 mg PO BID 05/05/17 09/01/17 08/10/17 History HYDROcodone/APAP 7.5-325 [[place] 1 each PO Q6HR PRN #20 tablet 05/12/17 09/01/17 Unknown Rx 7.5-325 mg TAB] Active Meds: Active Medications Acetaminophen (Tylenol) 650 mg PO Q6H PRN PRN Reason: Pain, Mild (1-3) Famotidine (Pepcid) 20 mg IV QAM [facility] Last Admin: 09/01/17 03:12 Dose: 20 mg Hydromorphone HCl (Dilaudid) 0.25 mg IV Q4H PRN PRN Reason: Pain, Moderate (4-6) Dextrose/Sodium Chloride (D5/0.45ns) 1,000 mls @ 100 mls/hr IV DIRECT PANCHITO Levofloxacin/Dextrose (Levaquin 250mg/50ml) 250 mg in 50 mls @ 50 mls/hr IV Q24HR [facility] Piperacillin Sod/Tazobactam Sod (Zosyn/Ns 3.375gm/50ml) 3.375 gm in 50 mls @ 100 mls/hr IV Q8HR [facility] Last Admin: 09/01/17 06:14 Dose: 100 mls/hr Vancomycin HCl 1,750 mg/ (Sodium Chloride) 517.5 mls @ 333.333 mls/hr IV Q24H [facility] Vancomycin HCl (Vancomycin Pharmacy To Dose) 1 each IV PKCONSULT [facility] Review of Systems ROS unobtainable: due to endotracheal tube Exam - Vital Signs Vital signs: Vital Signs Temp 98.8 F 09/01/17 00:00 - Physical Exam Narrative exam: Middle-aged male lying in bed check intact on vent HEENT: NCAT, pink oral mucous membrane Neck: Supple, no venous distention CVS: S1S2 RRR tachycardic with no murmur, rub or gallop Chest: Faint rhonchi bilaterally Abdomen: Protuberant, soft, nontender, no organomegaly, bowel sounds are present Extremities: 2+ edema Skin warm and dry with no rash, Genitourinary deferred Neuro: Awake, alert and moving extremities, communicating nonverbally Results - Lab Results 09/02/17 04:48 09/02/17 04:48 Most recent lab results Calcium 8.1 mg/dL (8.4-10.2) L 08/31/17 22:50 Assessment and Plan - Patient Problems (1) Hypotension Status: Acute Plan to address problem: Gentle resuscitated with saline. Due to hypernatremia, now on hypotonic saline. Once hemodynamically stable, we will change to dextrose in water to help correct hyponatremia. (2) Acute renal failure due to tubular necrosis Status: Acute Plan to address problem: Acute tubular necrosis which had been improving. Continue resuscitation and follow electrolytes and renal function. (3) Anemia Status: Acute Plan to address problem: Follow-up hemoglobin (4) Free intraperitoneal air Status: Acute Plan to address problem: General surgeon managing (5) Hypernatremia Status: Acute Plan to address problem: Increase free water intravenously and follow sodium closely. Patient getting hypotonic saline due to low blood pressure. (6) Metabolic acidosis Status: Acute Plan to address problem: Follow-up bicarbonate. (7) Respiratory failure Status: Acute Plan to address problem: Ventilator management by pulmonary
--- NOTE | 2017-09-01 10:27 | Progress Note ---
Assessment and Plan 66 yo M with pneumoperitoneum, possibly from leaking air from PEG tube 1. VSS, WBC remains normal and abdominal exam benign. The patients tachycardia is improved and he does not meet SIRS criteria. No evidence of intraabdominal infection. 2. keep PEG to LCWS to decompress stomach and allow intraperitoneal air to reabsorb. Has not formed a tract from PEG to abdominal wall yet, PEG was pulled away from abd wall on CT. 3. recommend starting TPN until patient can be restarted on TF 4. will likely need PEG switched to G-J as he may have gastric motility issue. He had a large gastric bubble and large amount aspirated from PEG yesterday, but has no evidence of obstruction on CT. Thank you for this consultation, please call with questions or concerns. Subjective Date of service: 09/01/17 Narrative: Pt seen and examined. Per nursing, no overnight events and patient has remained stable. Patient has no complaints. He has been afebrile. Objective Vital Signs - 12hr 09/01/17 09/01/17 09/01/17 00:00 00:22 00:30 Temperature 98.8 F Pulse Rate 100 H 113 H Pulse Rate [ From Monitor] Respiratory 22 21 Rate Blood Pressure 133/70 O2 Sat by Pulse 98 Oximetry O2 Sat by Pulse Oximetry [ Assessment] 09/01/17 09/01/17 09/01/17 00:40 00:50 01:00 Temperature Pulse Rate 116 H 107 H 103 H Pulse Rate [ From Monitor] Respiratory 21 22 21 Rate Blood Pressure 133/70 133/70 133/70 O2 Sat by Pulse 97 98 Oximetry O2 Sat by Pulse Oximetry [ Assessment] 09/01/17 09/01/17 09/01/17 01:04 01:10 01:20 Temperature Pulse Rate 97 H 105 H 104 H Pulse Rate [ From Monitor] Respiratory 17 22 Rate Blood Pressure 133/70 121/70 121/70 O2 Sat by Pulse 99 98 98 Oximetry O2 Sat by Pulse 99 Oximetry [ Assessment] 09/01/17 09/01/17 09/01/17 01:31 01:41 01:42 Temperature Pulse Rate 109 H 105 H Pulse Rate [ 110 H From Monitor] Respiratory 21 19 20 Rate Blood Pressure 133/70 O2 Sat by Pulse 99 98 100 Oximetry O2 Sat by Pulse Oximetry [ Assessment] 09/01/17 09/01/17 09/01/17 01:51 02:01 02:11 Temperature Pulse Rate 107 H 110 H 104 H Pulse Rate [ From Monitor] Respiratory 21 20 21 Rate Blood Pressure 121/70 122/68 122/68 O2 Sat by Pulse 99 99 99 Oximetry O2 Sat by Pulse Oximetry [ Assessment] 09/01/17 09/01/17 09/01/17 02:21 02:31 02:41 Temperature Pulse Rate 109 H 113 H 106 H Pulse Rate [ From Monitor] Respiratory 19 19 16 Rate Blood Pressure 122/68 122/68 122/68 O2 Sat by Pulse 98 99 99 Oximetry O2 Sat by Pulse Oximetry [ Assessment] 09/01/17 09/01/17 09/01/17 02:51 03:01 03:11 Temperature Pulse Rate 104 H 102 H 100 H Pulse Rate [ From Monitor] Respiratory 21 17 23 Rate Blood Pressure 122/68 103/73 103/73 O2 Sat by Pulse 96 97 97 Oximetry O2 Sat by Pulse Oximetry [ Assessment] 09/01/17 09/01/17 09/01/17 03:21 03:31 03:41 Temperature Pulse Rate 107 H 113 H 108 H Pulse Rate [ From Monitor] Respiratory 16 21 18 Rate Blood Pressure 103/73 103/73 103/73 O2 Sat by Pulse 98 96 96 Oximetry O2 Sat by Pulse Oximetry [ Assessment] 09/01/17 09/01/17 09/01/17 03:44 03:51 03:59 Temperature 98.8 F Pulse Rate 98 H 97 H Pulse Rate [ From Monitor] Respiratory 22 Rate Blood Pressure 103/73 O2 Sat by Pulse 97 97 Oximetry O2 Sat by Pulse Oximetry [ Assessment] 09/01/17 09/01/17 09/01/17 04:01 04:11 04:21 Temperature Pulse Rate 106 H 104 H 113 H Pulse Rate [ From Monitor] Respiratory 24 18 19 Rate Blood Pressure 103/73 103/73 103/73 O2 Sat by Pulse 95 95 97 Oximetry O2 Sat by Pulse Oximetry [ Assessment] 09/01/17 09/01/17 09/01/17 04:31 04:41 04:51 Temperature Pulse Rate 114 H 106 H 102 H Pulse Rate [ From Monitor] Respiratory 18 17 21 Rate Blood Pressure 103/73 103/73 99/69 O2 Sat by Pulse 97 97 97 Oximetry O2 Sat by Pulse Oximetry [ Assessment] 09/01/17 09/01/1709/01/18 05:00 05:11 05:21 Temperature Pulse Rate 109 H 107 H 108 H Pulse Rate [ From Monitor] Respiratory 22 18 21 Rate Blood Pressure 141/84 141/84 141/84 O2 Sat by Pulse 98 99 96 Oximetry O2 Sat by Pulse Oximetry [ Assessment] 09/01/17 09/01/17 09/01/17 05:31 05:41 05:51 Temperature Pulse Rate 112 H 99 H 100 H Pulse Rate [ From Monitor] Respiratory 20 22 21 Rate Blood Pressure 141/84 141/84 141/84 O2 Sat by Pulse 99 99 98 Oximetry O2 Sat by Pulse Oximetry [ Assessment] 09/01/17 09/01/17 09/01/17 06:00 06:11 06:21 Temperature Pulse Rate 116 H 103 H 100 H Pulse Rate [ From Monitor] Respiratory 20 21 16 Rate Blood Pressure 141/84 144/75 144/75 O2 Sat by Pulse 97 99 98 Oximetry O2 Sat by Pulse Oximetry [ Assessment] 09/01/17 09/01/17 09/01/17 06:31 06:41 06:51 Temperature Pulse Rate 108 H 108 H 114 H Pulse Rate [ From Monitor] Respiratory 18 21 18 Rate Blood Pressure 144/75 144/75 144/75 O2 Sat by Pulse 97 97 97 Oximetry O2 Sat by Pulse Oximetry [ Assessment] 09/01/17 09/01/17 09/01/17 07:00 07:11 07:21 Temperature Pulse Rate 99 H 97 H 102 H Pulse Rate [ From Monitor] Respiratory 23 15 18 Rate Blood Pressure 132/70 132/70 132/70 O2 Sat by Pulse 98 98 99 Oximetry O2 Sat by Pulse Oximetry [ Assessment] 09/01/17 09/01/17 09/01/17 07:31 07:41 07:51 Temperature Pulse Rate 110 H 106 H 111 H Pulse Rate [ From Monitor] Respiratory 15 14 20 Rate Blood Pressure 132/70 132/70 132/70 O2 Sat by Pulse 98 98 100 Oximetry O2 Sat by Pulse Oximetry [ Assessment] 09/01/17 09/01/17 09/01/17 07:55 08:00 08:01 Temperature 98.8 F Pulse Rate 106 H 106 H Pulse Rate [ From Monitor] Respiratory 20 Rate Blood Pressure 132/70 119/70 O2 Sat by Pulse 100 97 Oximetry O2 Sat by Pulse Oximetry [ Assessment] 09/01/17 08:10 Temperature Pulse Rate Pulse Rate [ 108 H From Monitor] Respiratory Rate Blood Pressure O2 Sat by Pulse 100 Oximetry O2 Sat by Pulse Oximetry [ Assessment] - General physical appearance Narrative Exam: Gen: Awake and alert on the vent via trach. Answers yes/no questions appropriately. NAD. Appears comfortable. ENT: Tracheostomy is place, site c/d/i CV: S1, S2+ Resp: even and unlabored Abd: soft, distension much improved, NT. PEG tube site c/d/i - hooked to wall suction with light yellow/bilious output. no r/r/g. PEG tube bumper at 6cm at skin, pulled back gently to 3cm without tension. Ext: trace pedal edema b/l - Labs 09/01/17 04:10 08/31/17 22:50 Diabetes panel 08/31/17 08/31/17 Range/Units 22:50 22:50 Sodium 153 H (137-145) mmol/L Potassium 3.8 (3.6-5.0) mmol/L Chloride 115.7 H (98-107) mmol/L Carbon Dioxide 26 (22-30) mmol/L BUN 51 H (9-20) mg/dL Creatinine 1.6 H (0.8-1.5) mg/dL Glucose 163 H (75-100) mg/dL Hemoglobin A1c 6.7 H (4-6) % Calcium 8.1 L (8.4-10.2) mg/dL AST 31 (5-40) units/L ALT 43 (7-56) units/L Alkaline Phosphatase 110 (35-129) units/L Total Protein 5.3 L (6.3-8.2) g/dL Albumin 2.9 L (3.9-5) g/dL Calcium panel 08/31/17 Range/Units 22:50 Calcium 8.1 L (8.4-10.2) mg/dL Albumin 2.9 L (3.9-5) g/dL Pituitary panel 08/31/17 Range/Units 22:50 Sodium 153 H (137-145) mmol/L Potassium 3.8 (3.6-5.0) mmol/L Chloride 115.7 H (98-107) mmol/L Carbon Dioxide 26 (22-30) mmol/L BUN 51 H (9-20) mg/dL Creatinine 1.6 H (0.8-1.5) mg/dL Glucose 163 H (75-100) mg/dL Calcium 8.1 L (8.4-10.2) mg/dL Adrenal panel 08/31/17 Range/Units 22:50 Sodium 153 H (137-145) mmol/L Potassium 3.8 (3.6-5.0) mmol/L Chloride 115.7 H (98-107) mmol/L Carbon Dioxide 26 (22-30) mmol/L BUN 51 H (9-20) mg/dL Creatinine 1.6 H (0.8-1.5) mg/dL Glucose 163 H (75-100) mg/dL Calcium 8.1 L (8.4-10.2) mg/dL Total Bilirubin 1.00 (0.1-1.2) mg/dL AST 31 (5-40) units/L ALT 43 (7-56) units/L Alkaline Phosphatase 110 (35-129) units/L Total Protein 5.3 L (6.3-8.2) g/dL Albumin 2.9 L (3.9-5) g/dL
[2017-09-01] MEDS: LEVAQUIN 250MG/50ML 250 MG/50 ML BAG IV SCH (10:45)
[2017-09-01] MEDS: PEPCID IV SCH ×2 (10:45→22:36)
[2017-09-01] MEDS: D5/0.45NS 1,000 ML IV SCH ×2 (11:01→22:36)
--- NOTE | 2017-09-01 11:41 | Consultation ---
History of Present Illness Consult date: 09/01/17 Requesting physician: HEMANTH LOPEZ Reason for consult: other (Acute on Chronic Respiratory Failure; Pneumo- mediastinum; Severe Sepsis) History of present illness: PULMONARY/CCM CONSULT NOTE (Full dictation # [id number]) Please see dictated notes for full details Past History Past Medical History: CAD, diabetes, hypertension Past Surgical History: Other (rt femoral endarterectomy) Social history: lives with family, smoking, alcohol abuse Family history: no significant family history Medications and Allergies Allergies Allergy/AdvReac Type Severity Reaction Status Date / Time Sulfa (Sulfonamide Allergy rash, Verified 08/05/17 10:59 Antibiotics) swelling Home Medications Medication Instructions Recorded Confirmed Last Taken Type Amlodipine Besylate [Norvasc] 10 mg PO DAILY 05/05/17 08/05/17 08/11/17 05:30 History Aspirin [Lo-Dose Aspirin EC] 81 mg PO DAILY 05/05/17 08/05/17 08/11/17 05:30 History Cilostazol [Pletal] 100 mg PO BID 05/05/17 08/05/17 08/11/17 05:30 History Diclofenac Sodium 75 mg PO DAILY 05/05/17 08/05/17 08/11/17 05:30 History Labetalol HCl 300 mg PO TID 05/05/17 08/05/17 08/11/17 05:30 History PARoxetine [Paxil] 20 mg PO DAILY 05/05/17 08/05/17 08/11/17 05:30 History Valsartan-Hctz 320-25 mg Tab 1 tab PO DAILY 05/05/17 08/05/17 08/11/17 05:30 History metFORMIN [Glucophage] 500 mg PO BID 05/05/17 08/11/17 08/10/17 History HYDROcodone/APAP 7.5-325 [[place] 1 each PO Q6HR PRN #20 tablet 05/12/17 08/05/17 Unknown Rx 7.5/325] Active Meds: Active Medications Acetaminophen (Tylenol) 650 mg PO Q6H PRN PRN Reason: Pain, Mild (1-3) Famotidine (Pepcid) 20 mg IV BID [facility] Last Admin: 09/01/17 10:45 Dose: 20 mg Hydromorphone HCl (Dilaudid) 0.25 mg IV Q4H PRN PRN Reason: Pain, Moderate (4-6) Dextrose/Sodium Chloride (D5/0.45ns) 1,000 mls @ 100 mls/hr IV DIRECT [facility] Last Admin: 09/01/17 11:01 Dose: 100 mls/hr Levofloxacin/Dextrose (Levaquin 250mg/50ml) 250 mg in 50 mls @ 50 mls/hr IV Q24HR [facility] Last Admin: 09/01/17 10:45 Dose: 50 mls/hr Piperacillin Sod/Tazobactam Sod (Zosyn/Ns 3.375gm/50ml) 3.375 gm in 50 mls @ 100 mls/hr IV Q8HR [facility] Last Admin: 09/01/17 06:14 Dose: 100 mls/hr Vancomycin HCl 1,750 mg/ (Sodium Chloride) 517.5 mls @ 333.333 mls/hr IV Q24H [facility] Vancomycin HCl (Vancomycin Pharmacy To Dose) 1 each IV PKCONSULT [facility] Physical Examination Vital signs: Vital Signs Temp 98.8 F 09/01/17 00:00 Results - Laboratory Findings CBC and BMP: 09/01/17 04:10 08/31/17 22:50 ABG POC ABG pH 7.425 (7.35-7.45) 09/01/17 04:30 POC ABG pCO2 38.6 (35-45) 09/01/17 04:30 POC ABG pO2 64 (80-105) L 09/01/17 04:30 POC ABG HCO3 25.3 09/01/17 04:30 POC ABG Total CO2 26 09/01/17 04:30 POC ABG O2 Sat 93 09/01/17 04:30 Abnormal lab findings: Abnormal Labs 08/31/17 08/31/17 08/31/17 03:00 22:50 22:50 RBC Hgb Hct MCV MCHC RDW Lymph % (Auto) Lymph # Seg Neutrophils % POC ABG pO2 Sodium 153 H Chloride 115.7 H BUN 51 H Creatinine 1.6 H Glucose 163 H POC Glucose Hemoglobin A1c 6.7 H Calcium 8.1 L C-Reactive Protein Total Protein 5.3 L Albumin 2.9 L Urine WBC (Auto) 58.0 H 08/31/17 09/01/17 09/01/17 22:52 04:10 04:30 RBC 2.82 L Hgb 8.6 L 8.3 L Hct 27.6 L 26.3 L MCV 98 H MCHC 31 L RDW 19.5 H Lymph % (Auto) 10.8 L Lymph # 0.9 L Seg Neutrophils % 84.0 H POC ABG pO2 64 L Sodium Chloride BUN Creatinine Glucose POC Glucose Hemoglobin A1c Calcium C-Reactive Protein Total Protein Albumin Urine WBC (Auto) 09/01/17 09/01/17 09/01/17 05:44 10:25 10:34 RBC Hgb Hct MCV MCHC RDW Lymph % (Auto) Lymph # Seg Neutrophils % POC ABG pO2 Sodium Chloride BUN Creatinine Glucose POC Glucose 207 H 213 H Hemoglobin A1c Calcium C-Reactive Protein 9.50 H Total Protein Albumin Urine WBC (Auto)
[2017-09-01 16:03] LABS: Hematocrit 26.6 % (35.5-45.6); Hemoglobin 8.2 gm/dl (11.8-15.2)
--- NOTE | 2017-09-01 17:44 | Progress Note ---
Assessment and Plan Assessment and plan: 66 yo M with pneumoperitoneum, possibly from leaking air from PEG tube Surgery evaluated him and recommend no intervention at this time Here is their assessment and plan "1. VSS, WBC remains normal and abdominal exam benign. The patients tachycardia is improved and he does not meet SIRS criteria. No evidence of intraabdominal infection. 2. keep PEG to LCWS to decompress stomach and allow intraperitoneal air to reabsorb. Has not formed a tract from PEG to abdominal wall yet, PEG was pulled away from abd wall on CT. 3. recommend starting TPN until patient can be restarted on TF 4. will likely need PEG switched to G-J as he may have gastric motility issue. He had a large gastric bubble and large amount aspirated from PEG yesterday, but has no evidence of obstruction on CT." Plan: is to transfer back to [facility] once insurance approved it. History Interval history: Patient was seen and evaluated this morning, patient didn't have any abdominal pain. Hospitalist Physical - Physical exam Narrative exam: Not in cardiopulmonary distress. The patient appeared well nourished and normally developed. Vital signs as documented. Head exam is unremarkable. No scleral icterus . Neck is without jugular venous distension, thyromegaly, or carotid bruits. Lungs are clear to auscultation. Cardiac exam reveals regular rate and Rhythm. First and second heart sounds normal. No murmurs, rubs or gallops. Abdominal exam reveals normal bowel sounds, no masses, no organomegaly and no aortic enlargement. Extremities are nonedematous and both femoral and pedal pulses are normal. 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 - Constitutional Vitals: Temp Pulse Resp BP Pulse Ox 98.9 F 110 H 21 154/69 100 09/01/17 16:00 09/01/17 16:21 09/01/17 14:21 09/01/17 16:21 09/01/17 16:30 General appearance: Present: other (trach) Results - Labs CBC & Chem 7: 09/01/17 15:41 08/31/17 22:50 Labs: Laboratory Last Values WBC 8.1 K/mm3 (4.5-11.0) 08/31/17 22:52 RBC 2.82 M/mm3 (3.65-5.03) L 08/31/17 22:52 Hgb 8.2 gm/dl (11.8-15.2) L 09/01/17 15:41 Hct 26.6 % (35.5-45.6) L 09/01/17 15:41 MCV 98 fl (84-94) H 08/31/17 22:52 MCH 31 pg (28-32) 08/31/17 22:52 MCHC 31 % (32-34) L 08/31/17 22:52 RDW 19.5 % (13.2-15.2) H 08/31/17 22:52 Plt Count 172 K/mm3 (140-440) 08/31/17 22:52 Lymph % (Auto) 10.8 % (13.4-35.0) L 08/31/17 22:52 [place] % (Auto) 5.0 % (0.0-7.3) 08/31/17 22:52 Eos % (Auto) 0.1 % (0.0-4.3) 08/31/17 22:52 Baso % (Auto) 0.1 % (0.0-1.8) 08/31/17 22:52 Lymph # 0.9 K/mm3 (1.2-5.4) L 08/31/17 22:52 [place] # 0.4 K/mm3 (0.0-0.8) 08/31/17 22:52 Eos # 0.0 K/mm3 (0.0-0.4) 08/31/17 22:52 Baso # 0.0 K/mm3 (0.0-0.1) 08/31/17 22:52 Seg Neutrophils % 84.0 % (40.0-70.0) H 08/31/17 22:52 Seg Neutrophils # 6.8 K/mm3 (1.8-7.7) 08/31/17 22:52 POC ABG pH 7.425 (7.35-7.45) 09/01/17 04:30 POC ABG pCO2 38.6 (35-45) 09/01/17 04:30 POC ABG pO2 64 (80-105) L 09/01/17 04:30 POC ABG HCO3 25.3 09/01/17 04:30 POC ABG Total CO2 26 09/01/17 04:30 POC ABG O2 Sat 93 09/01/17 04:30 POC ABG Base Excess 1 09/01/17 04:30 FiO2 50 % 09/01/17 04:30 Sodium 153 mmol/L (137-145) H 08/31/17 22:50 Potassium 3.8 mmol/L (3.6-5.0) 08/31/17 22:50 Chloride 115.7 mmol/L (98-107) H 08/31/17 22:50 Carbon Dioxide 26 mmol/L (22-30) 08/31/17 22:50 Anion Gap 15 mmol/L 08/31/17 22:50 BUN 51 mg/dL (9-20) H 08/31/17 22:50 Creatinine 1.6 mg/dL (0.8-1.5) H 08/31/17 22:50 Estimated GFR 43 ml/min 08/31/17 22:50 BUN/Creatinine Ratio 32 % 08/31/17 22:50 Glucose 163 mg/dL (75-100) H 08/31/17 22:50 POC Glucose 250 (70-105) H 09/01/17 14:49 Hemoglobin A1c 6.7 % (4-6) H 08/31/17 22:50 Lactic Acid 0.80 mmol/L (0.7-2.0) 09/01/17 04:10 Calcium 8.1 mg/dL (8.4-10.2) L 08/31/17 22:50 Total Bilirubin 1.00 mg/dL (0.1-1.2) 08/31/17 22:50 AST 31 units/L (5-40) 08/31/17 22:50 ALT 43 units/L (7-56) 08/31/17 22:50 Alkaline Phosphatase 110 units/L (35-129) 08/31/17 22:50 C-Reactive Protein 9.50 mg/dL (0.00-1.30) H 09/01/17 10:25 Total Protein 5.3 g/dL (6.3-8.2) L 08/31/17 22:50 Albumin 2.9 g/dL (3.9-5) L 08/31/17 22:50 Albumin/Globulin Ratio 1.2 % 08/31/17 22:50 Urine Color Yellow (Yellow) 08/31/17 03:00 Urine Turbidity Clear (Clear) 08/31/17 03:00 Urine pH 5.0 (5.0-7.0) 08/31/17 03:00 Ur Specific [place] 1.015 (1.003-1.030) 08/31/17 03:00 Urine Protein 100 mg/dl mg/dL (Negative) 08/31/17 03:00 Urine Glucose (UA) Neg mg/dL (Negative) 08/31/17 03:00 Urine Ketones Neg mg/dL (Negative) 08/31/17 03:00 Urine Blood Lg (Negative) 08/31/17 03:00 Urine Nitrite Neg (Negative) 08/31/17 03:00 Urine Bilirubin Neg (Negative) 08/31/17 03:00 Urine Urobilinogen < 2.0 mg/dL (<2.0) 08/31/17 03:00 Ur Leukocyte Esterase Sm (Negative) 08/31/17 03:00 Urine WBC (Auto) 58.0 /HPF (0.0-6.0) H 08/31/17 03:00 Urine RBC (Auto) 132.0 /HPF (0.0-6.0) 08/31/17 03:00 Urine Mucus Few /HPF 08/31/17 03:00 Urine Yeast (Bud[place]) 3+ /HPF 08/31/17 03:00 Blood Type O POSITIVE 08/31/17 22:50 Antibody Screen Negative 08/31/17 22:50
[2017-09-01] MEDS ORDERED: VANCOMYCIN 1,750 MG in NACL 0.9% 500 ML 500 ML IV SCH (22:00)
[2017-09-01 22:22] LABS: Hematocrit 28.1 % (35.5-45.6); Hemoglobin 8.6 gm/dl (11.8-15.2)
--- NOTE | 2017-09-02 00:59 | Consultation ---
PULMONARY CRITICAL CARE CONSULT NOTE CONSULTING PHYSICIAN: Dominic Ayala MD REASON FOR CONSULTATION: Extensive pneumoperitoneum and sepsis with shock. CHIEF COMPLAINT AND HISTORY OF PRESENT ILLNESS: As follows: The patient is a 66-year-old male with past medical history most recently significant for peripheral vascular disease that required right femoral endarterectomy with resultant postop significant hemorrhage, acute blood loss anemia, receiving a massive transfusion protocol, ultimately developed respiratory failure, became ventilator dependent, is status post tracheostomy and a recent PEG tube that was placed on about 09/23/2017, so about a week ago. He had been in the long-term acute care facility when all of a sudden he developed worsening respiratory distress. He became hypotensive. Around the time of his hypotension, he did receive some sedation/analgesia. He had earlier been diagnosed with sepsis syndrome and had been treated with antibiotics for the sepsis syndrome and had completed his course of antibiotics. A CT of the abdomen and pelvis was done secondary to abdominal distention and it was reported as having a large pneumoperitoneum in light of the patient's hypotension and the pneumoperitoneum, the possible need for surgical intervention. He was transferred from the LTAC facility into the Intensive Care Unit where I stopped by to see him. When I stopped by to see him, he was actually doing a little bit better than he had been when I saw him the day prior. He does have a little bit of delirium, but denied any abdominal pain. There has been no nausea, vomiting or overt aspiration. No fevers or chills since he has been in the intensive care unit. Blood pressure is looking better right now. With regards to tobacco use/abuse history, he does have a history of tobacco and alcohol abuse, a 20+ pack year tobacco smoking history. Prior echocardiogram including a CHAO did not show any vegetations, but he did have a reduced ejection fraction of 30-35%. PAST MEDICAL HISTORY: Therefore significant for coronary artery disease, peripheral vascular disease, diabetes, hypertension, alcohol abuse, acute respiratory failure, likely chronic obstructive lung disease, oropharyngeal dysphagia. PAST SURGICAL HISTORY: 1. Status post right femoral endarterectomy. 2. Status post tracheostomy. 3. Status post percutaneous endoscopic gastrostomy tube placement. MEDICATIONS: He was on at the time I stopped by to see him were reviewed. Pertinent medications include the following: He is on Pepcid 20 mg IV b.i.d., Levaquin 250 mg IV daily, Dilaudid 0.25 mg IV q. 4 hours p.r.n. nausea and vomiting. He did receive Zosyn 4.5 grams IV yesterday. ALLERGIES: Sulfa drugs, nature of this allergy is unknown. DIET: Obese gentleman. Acute weight loss or gain history is unknown. FAMILY AND SOCIAL HISTORY: Apparently lived in the community prior to coming to the hospital. He is . He has a 20+ pack year tobacco smoking history. He has a history of alcohol abuse. FAMILY AND SOCIAL HISTORY: Otherwise noncontributory. REVIEW OF SYSTEMS: Difficult to obtain secondary to the patient's medical and mental condition since he has been back in the intensive care unit. No gross hematochezia or melena, no gross hematuria, no hematemesis, no bloody tracheal secretions. REVIEW OF SYSTEMS: Otherwise as in the body of the history above or unobtainable. PHYSICAL EXAMINATION: VITAL SIGNS: At presentation here and since he has been afebrile, temperature 98.8 degrees Fahrenheit, pulse of 100, respiratory rate of 22, blood pressure 133/70, oxygen sats were 98%. At that time, inspired oxygen concentration was not recorded. Blood pressure is 120/65 at the time of my evaluation. He was on at the time, the mechanical ventilator assist control mode of ventilator, I believe, 500 tidal volumes, rate of 12, PEEP of 5, 40% FIO2. GENERAL: Elderly looking male, looks his stated age, normocephalic, atraumatic in mild respiratory distress, on the mechanical ventilator. HEAD, EYES, EARS, NOSE AND THROAT: He is anicteric. No conjunctival erythema. He has a midline tracheostomy tube, I believe a Shiley #8 tube in the midline of the neck. No significant bleeding or exudation around it. No thyromegaly. No gross jugular venous distention. Grossly, no palpable lymph nodes in the supraclavicular or submandibular lymph node chains. LUNGS: Auscultation of both lung culver significant for diminished bilateral breath sounds, diminished bibasilar air entry, slightly prolonged expiratory phase and bibasilar rhonchi, no wheezing. HEART: Heart sounds 1 and 2 are heard. At the time of my evaluation, they were regular in rate and rhythm. He does have a soft systolic murmur. No rubs. ABDOMEN: Soft, full. It is distended, but soft. Bowel sounds are positive. He is nontender at the time of my evaluation. No palpable hepatosplenomegaly. Midline PEG tube is in place. No significant bleeding or exudation around the site of the PEG tube. EXTREMITIES: Without overt digital clubbing or cyanosis. He has about 2+ pitting pedal edema. Dorsalis pedis pulses were palpable, but weak. NEUROLOGIC: Pupils are equal, round, about 3-4 mm, reactive to light. Extraocular muscle movements are intact. He moves all 4 extremities spontaneously. LABORATORY DATA: From my review are as follows: White cell count 8100, hemoglobin 8.6, hematocrit 27.6, platelet count 172. Arterial blood gas showed a pH of 7.43, pCO2 of 39, pO2 of 64 that was on 50% FiO2 at that time. Serum sodium 153, potassium 3.8, chloride 116, bicarb 26, BUN 51, creatinine 1.6, glucose was 163. CRP 9.5. Lactic acid level within normal limits. CRP was slightly elevated at 9.5, but I believe it is trending down from prior. Albumin 2.9; otherwise, liver function tests within normal limits. Urinalysis showed small leukocyte esterase with 58 white cells per high power field and 3+ yeast. Blood cultures, tracheal aspirate, no growth to date. A chest x-ray was done. I have reviewed the chest x-ray, essentially the main finding is gross cardiomegaly, increased interstitial markings and free air under the diaphragm. A CT scan of the abdomen was also done non-contrast. I have reviewed that and again essentially just shows significant pneumoperitoneum without any associated obvious pneumothorax. Unfortunately, the base of the lung culver were not included in this CT of the abdomen. He does have pleural effusions bilaterally. No gross pneumothorax that I can see. ASSESSMENT AND PLAN: 1. [id number] hypoxemic respiratory failure secondary likely to #2. 2. Free intra-abdominal air with abdominal distention and elevation of the diaphragm secondary likely to #3. 3. New PEG insertion with the malposition of the PEG tube with the PEG tube bumper at 6 cm and away from the skin allowing air to leak into the peritoneum. 4. Resolving sepsis. 5. Peripheral vascular disease. 6. Oropharyngeal dysphagia. 7. Acute kidney injury, resolving. 8. Obesity. 9. Tobacco use disorder. 10. Alcohol abuse. 11. Acute blood loss anemia. 12. Hypernatremia. PLAN: The PEG tube has been replaced. It will be kept to suction as per the surgeon's intervention. The abdomen is benign and in the absence of surgical and to follow surgical intervention, he probably could transfer back to the LTAC facility. We will continue to wean via the pressure support mode of ventilation. For now, he is on full AC control. We will keep the PEEP at 5 for now. No obvious pneumothorax that requires other intervention. Oxygen will be weaned to keep sats greater than or equal to about 90%. Aspiration precautions will be maintained. Thankfully, he is not requiring vasopressors at this point. We will target mean arterial pressures greater than or equal to about 65 mmHg. We will continue free water flushes actually with him being n.p.o. If that is the decision of the surgeon, ____ at this point, we will also decompress the bowel. I will put him on isotonic fluids and continue that to improve the hypernatremia while also hopefully to improve the possible likely prerenal azotemia component. We will continue bronchodilators. We will hold on systemic steroids for now. Antibiotics will be deescalated and he will be followed clinically. I will stop the Levaquin. He is appropriately on GI prophylaxis. He will be placed on DVT prophylaxis. Flu and pneumonia vaccination will be addressed per protocol. Thank you very much for the consult. He is certainly critically ill on life-sustaining interventions including mechanical ventilatory support and at risk for further deterioration including . I do hope that once we have decompressed his abdomen, ventilation will improve and we can get more success with weaning. At this point, I have spent about 35-40 minutes of critical care time without overlap and excluding any procedural time that may be necessary. JOB# [id number] SHERIE/JOHN
[2017-09-02 05:08] LABS: Basophils % (Auto) 0.3 % (0.0-1.8); Eosinophils # (Auto) 0.1 K/mm3 (0.0-0.4); Eosinophils % (Auto) 1.2 % (0.0-4.3); Hematocrit 26.8 % (35.5-45.6); Hemoglobin 8.6 gm/dl (11.8-15.2); Lymphocytes # (Auto) 0.8 K/mm3 (1.2-5.4); Lymphocytes % (Auto) 12.4 % (13.4-35.0); Mean Corpuscular HGB Conc 32 % (32-34); Mean Corpuscular Hemoglobin 31 pg (28-32); Mean Corpuscular Volume 97 fl (84-94); Monocytes # (Auto) 0.3 K/mm3 (0.0-0.8); Monocytes % (Auto) 4.4 % (0.0-7.3); Platelet Count 143 K/mm3 (140-440); Red Blood Count 2.78 M/mm3 (3.65-5.03); Red Cell Distribution Width 18.8 % (13.2-15.2)
[2017-09-02 05:21] LABS: Albumin 2.5 g/dL (3.9-5); Calcium 8.3 mg/dL (8.4-10.2)
--- NOTE | 2017-09-02 08:58 | Consultation ---
History of Present Illness - Reason for Consult Consult date: 09/02/17 septic shock Requesting physician: HEMANTH LOPEZ - History of Present Illness 66 year old male with history of hypertension, Type 2 DM, hyperlipidemia, CAD, PAD, admitted on 08/11/17 elective right common femoral endarterectomy with patch angioplasty, bilateral common iliac and right external artery stenting due to right lower extremity chronic ischemia with short distance claudication, found to have an occluded right common femoral artery, severely disease right external iliac artery, disease in the bilateral common iliac artery. Initial temp 98.4, HR 70, R 20, O2 sat 95%, BP140/62. WBC 7.9. Hg 14. Plat 241. After procedure, unfortunately, patient became hypotensive, received multiple fluid resuscitation and blood products. He then became altered and was intubated for airway protection. CTA showed retroperitoneal hemorrhage and bladder thickening. He was found to have a ruptured pseudoaneurysm left groin/external iliac with extravasation from the common femoral artery below the previously placed Viabond stent graft tracking retrograde into the lower abdomen and pelvis successfully treated by deployment of new Viabond stent graft across the inguinal ligament into the common femoral artery. TTE EF 30-35%. By 08/15 he started spiking fever 101.2. WBC 12.7. Lactate 3.1. Creat went up 2.4. Ua showed trace LA and >182 wbc. Admission blood cx were negative and urine cx negative. Last 24h patient continues to have 102 fever and leukocytosis 14K. ID consulted due to persistent fever and leukocytosis. CXR showed bibasilar perihilar and bibasilar opacities and right mod pleural effusion, left mild pleural effusion. I saw patient for Sepsis with intermittent hypovolemic +/- septic shock. Sepsis Etiology ?? unclear - possibilities VAP . CRP=22/Procal 0.3. Presumed VAP: CXR showed bibasilar perihilar and bibasilar opacities and right mod pleural effusion, left mild pleural effusion. UTI inital UA c/w UTI, urine cx negative. Repeat UA neg. Patient was treated empirically with vancomycin and cefepime renally dosed for 10 days. Sepsis improved. S/P tracheostomy and PEG tube placed. Patient subsequently was transferred over to LTAC on 08/27/17. Unfortunately, patient had progressively worsening abdomen distention on . Patient was readmitted. CT scan showed extensive pneumoperitoneum. Patient noted hypotension at LTAC. However wasn't clear whether this was a result of evolving sepsis or dose of metoprolol. Patient was given IV fluid. Systolic blood pressure was still in the 80s. He was commenced on Levophed. Patient was started on IV vancomycin and Zosyn and Levaquin. upon re-admission, initial temperature 98.8, heart rate 100, respiration 20, O2 sat 98, blood pressure 137/70. White count 8.1. Hemoglobin 8.6. Platelets 172. Creatinine 1.6. CRP 9.5. Urinalysis shows small leukocytes and white blood cell 58. Microbiology: Blood cultures: 09/01 ngtd Urine cultures: Respiratory cultures: 09/01 usual resp rudy Current Antimicrobials: Levaquin 09/01 Previous Antimicrobials: Past History Past Medical History: CAD, diabetes, hypertension Past Surgical History: Other (rt femoral endarterectomy) Social history: lives with family, smoking, alcohol abuse Family history: no significant family history Medications and Allergies Allergies Allergy/AdvReac Type Severity Reaction Status Date / Time Sulfa (Sulfonamide Allergy rash, Verified 08/05/17 10:59 Antibiotics) swelling Home Medications Medication Instructions Recorded Confirmed Last Taken Type Amlodipine Besylate [Norvasc] 10 mg PO DAILY 05/05/17 09/01/17 08/11/17 05:30 History Aspirin [Lo-Dose Aspirin EC] 81 mg PO DAILY 05/05/17 09/01/17 08/11/17 05:30 History Cilostazol [Pletal] 100 mg PO BID 05/05/17 09/01/17 08/11/17 05:30 History Diclofenac Sodium 75 mg PO DAILY 05/05/17 09/01/17 08/11/17 05:30 History Labetalol HCl 300 mg PO TID 05/05/17 09/01/17 08/11/17 05:30 History PARoxetine [Paxil] 20 mg PO DAILY 05/05/17 09/01/17 08/11/17 05:30 History Valsartan-Hctz 320-25 mg Tab 1 tab PO DAILY 05/05/17 09/01/17 08/11/17 05:30 History metFORMIN [Glucophage] 500 mg PO BID 05/05/17 09/01/17 08/10/17 History HYDROcodone/APAP 7.5-325 [[place] 1 each PO Q6HR PRN #20 tablet 05/12/17 09/01/17 Unknown Rx 7.5/325] Active Meds: Active Medications Acetaminophen (Tylenol) 650 mg PO Q6H PRN PRN Reason: Pain, Mild (1-3) Famotidine (Pepcid) 20 mg IV BID [facility] Last Admin: 09/01/17 22:36 Dose: 20 mg Hydromorphone HCl (Dilaudid) 0.25 mg IV Q4H PRN PRN Reason: Pain, Moderate (4-6) Last Admin: 09/02/17 01:00 Dose: 0.25 mg Dextrose/Sodium Chloride (D5/0.45ns) 1,000 mls @ 100 mls/hr IV DIRECT [facility] Last Admin: 09/01/17 22:36 Dose: 100 mls/hr Levofloxacin/Dextrose (Levaquin 250mg/50ml) 250 mg in 50 mls @ 50 mls/hr IV Q24HR [facility] Last Infusion: 09/01/17 11:46 Dose: Infused Physical Examination - Physical Exam Narrative exam: General appearance: Alert in NAD, conversant Eyes: anicteric sclerae, moist conjunctivae; no lid-lag; PERRLA HENT: Atraumatic; oropharynx clear limited Neck: + Trach Lungs: CTA, with normal respiratory effort and no intercostal retractions CV: RRR, no murmurs Abdomen: Soft, non-tender;+PEG Extremities: +marked kati leg edema Skin: +scrotal edema Psych: Appropriate affect, alert and oriented to person, place and time. Neuro: alert and oriented x 3. Moving all extermities Lines: +barrientos in place - Constitutional Vitals: Vital Signs Temp Pulse Resp BP Pulse Ox 98.6 F 101 H 20 139/56 100 09/02/17 08:00 09/02/17 08:00 09/02/17 08:00 09/02/17 08:00 09/02/17 08:00 Temperature -Last 24 Hours Temperature 98.6 F Temperature 98.6 F Temperature 98.4 F Temperature 98.6 F Temperature 98.9 F Temperature 98.9 F Temperature 97.6 F Results - Labs CBC & Chem 7: 09/02/17 04:48 09/02/17 04:48 Labs: Abnormal lab results 09/01/17 09/01/17 09/01/17 Range/Units 10:25 10:34 14:49 RBC (3.65-5.03) M/mm3 Hgb (11.8-15.2) gm/dl Hct (35.5-45.6) % MCV (84-94) fl RDW (13.2-15.2) % Lymph % (Auto) (13.4-35.0) % Lymph # (1.2-5.4) K/mm3 Seg Neutrophils % (40.0-70.0) % POC ABG pO2 (80-105) Sodium (137-145) mmol/L Chloride (98-107) mmol/L BUN (9-20) mg/dL Creatinine (0.8-1.5) mg/dL Glucose (75-100) mg/dL POC Glucose 213 H 250 H (70-105) Calcium (8.4-10.2) mg/dL C-Reactive Protein 9.50 H (0.00-1.30) mg/dL Total Protein (6.3-8.2) g/dL Albumin (3.9-5) g/dL 09/01/17 09/01/17 09/01/17 Range/Units 15:41 17:29 20:14 RBC (3.65-5.03) M/mm3 Hgb 8.2 L (11.8-15.2) gm/dl Hct 26.6 L (35.5-45.6) % MCV (84-94) fl RDW (13.2-15.2) % Lymph % (Auto) (13.4-35.0) % Lymph # (1.2-5.4) K/mm3 Seg Neutrophils % (40.0-70.0) % POC ABG pO2 (80-105) Sodium (137-145) mmol/L Chloride (98-107) mmol/L BUN (9-20) mg/dL Creatinine (0.8-1.5) mg/dL Glucose (75-100) mg/dL POC Glucose 219 H 213 H (70-105) Calcium (8.4-10.2) mg/dL C-Reactive Protein (0.00-1.30) mg/dL Total Protein (6.3-8.2) g/dL Albumin (3.9-5) g/dL 09/01/17 09/02/17 09/02/17 Range/Units 21:57 04:00 04:48 RBC 2.78 L (3.65-5.03) M/mm3 Hgb 8.6 L 8.6 L (11.8-15.2) gm/dl Hct 28.1 L 26.8 L (35.5-45.6) % MCV 97 H (84-94) fl RDW 18.8 H (13.2-15.2) % Lymph % (Auto) 12.4 L (13.4-35.0) % Lymph # 0.8 L (1.2-5.4) K/mm3 Seg Neutrophils % 81.7 H (40.0-70.0) % POC ABG pO2 75 L (80-105) Sodium (137-145) mmol/L Chloride (98-107) mmol/L BUN (9-20) mg/dL Creatinine (0.8-1.5) mg/dL Glucose (75-100) mg/dL POC Glucose (70-105) Calcium (8.4-10.2) mg/dL C-Reactive Protein (0.00-1.30) mg/dL Total Protein (6.3-8.2) g/dL Albumin (3.9-5) g/dL 09/02/17 09/02/17 Range/Units 04:48 07:39 RBC (3.65-5.03) M/mm3 Hgb (11.8-15.2) gm/dl Hct (35.5-45.6) % MCV (84-94) fl RDW (13.2-15.2) % Lymph % (Auto) (13.4-35.0) % Lymph # (1.2-5.4) K/mm3 Seg Neutrophils % (40.0-70.0) % POC ABG pO2 (80-105) Sodium 155 H (137-145) mmol/L Chloride 117.3 H (98-107) mmol/L BUN 44 H (9-20) mg/dL Creatinine 1.9 H (0.8-1.5) mg/dL Glucose 175 H (75-100) mg/dL POC Glucose 220 H (70-105) Calcium 8.3 L (8.4-10.2) mg/dL C-Reactive Protein (0.00-1.30) mg/dL Total Protein 5.5 L (6.3-8.2) g/dL Albumin 2.5 L (3.9-5) g/dL Assessment and Plan Assessment: 1) Hypotension: ? etiology - recent metoprolo intake. No evidence of sepsis 2) Mild UTI vs. pyuria due to barrientos 3) Recent Sepsis with intermittent hypovolemic +/- septic shock: Etiology ?? unclear - possibilities VAP . CRP=22/Procal 0.3 4) Recent presumed VAP: CXR showed bibasilar perihilar and bibasilar opacities and right mod pleural effusion, left mild pleural effusion. Treated with cefepime/vano x 10 days. 5) Recent Acute respiratory failure: for airway protection - s/p trach 6) Recent Acute encephalopathy: multifactorial - resolved 7) Right lower extremity chronic ischemia with short distance claudication: -S/P elective right common femoral endarterectomy with patch angioplasty, bilateral common iliac and right external artery stenting on 08/11/17 8) Ruptured pseudoaneurysm left groin/external iliac: -CTA showed retroperitoneal hemorrhage and bladder thickening. -S/P deployment of new Viabond stent graft across the inguinal ligament into the common femoral artery on 08/13/17. 9) WILLIAM 10) Anasarca 11) Extensive pneumoperitoneum ? from recent PEG placement Plan: -continue levaquin x 3 days -exchange barrientos every 3-4 weeks -pneumoperitonium per poonam Thank you for your consultation, will follow up with you. Tasia Baldwin MD Infectious Diseases Specialist [facility] M [phone] O [phone]
[2017-09-02] MEDS: PEPCID IV SCH (09:05)
[2017-09-02] MEDS: LEVAQUIN 250MG/50ML 250 MG/50 ML BAG IV SCH (09:05)
--- NOTE | 2017-09-02 10:50 | Progress Note ---
Assessment and Plan 66 yo M with pneumoperitoneum, possibly from leaking air from PEG tube 1. VSS, WBC remains normal and abdominal exam benign. No evidence of intraabdominal infection. 2. keep PEG to LCWS to decompress stomach and allow intraperitoneal air to reabsorb. Has not formed a tract from PEG to abdominal wall yet, PEG was pulled away from abd wall on CT. 3. recommend starting TPN until patient can be restarted on TF 4. will likely need PEG switched to G-J as he may have gastric motility issue. 5. strict I/Os 6. start reglan 7. start bowel regimen via G tube 8. ok to dc to [facility] from surgery standpoint Thank you for this consultation, please call with questions or concerns. Subjective Date of service: 09/02/17 Narrative: Pt seen and examined. No complaints. States he feels well. He denies abdominal pain. Objective Vital Signs - 12hr 09/01/17 09/01/17 09/01/17 22:51 23:01 23:11 Temperature Pulse Rate 102 H 99 H 104 H Pulse Rate [ From Monitor] Respiratory 22 17 14 Rate Blood Pressure 80/55 138/72 138/72 O2 Sat by Pulse 96 96 97 Oximetry 09/01/17 09/01/17 09/01/17 23:21 23:26 23:31 Temperature Pulse Rate 105 H 110 H 108 H Pulse Rate [ From Monitor] Respiratory 22 19 23 Rate Blood Pressure 138/72 138/72 138/72 O2 Sat by Pulse 97 95 92 Oximetry 09/01/17 09/01/17 09/01/17 23:41 23:50 23:56 Temperature Pulse Rate 96 H 101 H 103 H Pulse Rate [ From Monitor] Respiratory 19 20 Rate Blood Pressure 138/72 138/72 138/72 O2 Sat by Pulse 94 97 96 Oximetry 09/02/17 09/02/17 09/02/17 00:00 00:10 00:20 Temperature 98.6 F Pulse Rate 95 H 90 100 H Pulse Rate [ From Monitor] Respiratory 18 20 21 Rate Blood Pressure 138/72 143/57 143/57 O2 Sat by Pulse 95 97 97 Oximetry 09/02/17 09/02/17 09/02/17 00:31 00:41 00:51 Temperature Pulse Rate 100 H 102 H 99 H Pulse Rate [ From Monitor] Respiratory 25 H 19 20 Rate Blood Pressure 143/57 143/57 143/57 O2 Sat by Pulse 97 99 97 Oximetry 09/02/17 09/02/17 09/02/17 01:00 01:11 01:21 Temperature Pulse Rate 107 H 92 H 108 H Pulse Rate [ From Monitor] Respiratory 19 21 21 Rate Blood Pressure 144/60 143/57 143/57 O2 Sat by Pulse 97 98 96 Oximetry 09/02/17 09/02/17 09/02/17 01:31 01:41 01:51 Temperature Pulse Rate 110 H Pulse Rate [ From Monitor] Respiratory 15 Rate Blood Pressure 143/57 143/57 143/57 O2 Sat by Pulse 98 97 97 Oximetry 09/02/17 09/02/17 09/02/17 02:00 02:01 02:11 Temperature Pulse Rate 97 H Pulse Rate [ 99 H From Monitor] Respiratory 20 Rate Blood Pressure 133/88 133/88 O2 Sat by Pulse 100 97 98 Oximetry 09/02/17 09/02/17 09/02/17 02:21 02:31 02:41 Temperature Pulse Rate 93 H 95 H 98 H Pulse Rate [ From Monitor] Respiratory 20 8 L 18 Rate Blood Pressure 133/88 133/88 133/88 O2 Sat by Pulse 98 98 98 Oximetry 09/02/17 09/02/17 09/02/17 02:51 02:52 03:01 Temperature Pulse Rate 112 H 106 H Pulse Rate [ From Monitor] Respiratory 14 Rate Blood Pressure 133/88 133/88 140/85 O2 Sat by Pulse 99 99 99 Oximetry 09/02/17 09/02/17 09/02/17 03:11 03:21 03:31 Temperature Pulse Rate 113 H 109 H 114 H Pulse Rate [ From Monitor] Respiratory 14 21 17 Rate Blood Pressure 140/85 140/85 140/85 O2 Sat by Pulse 98 99 98 Oximetry 09/02/17 09/02/17 09/02/17 03:41 03:51 04:00 Temperature 98.4 F Pulse Rate 114 H 113 H Pulse Rate [ From Monitor] Respiratory 17 15 Rate Blood Pressure 140/85 140/85 O2 Sat by Pulse 98 98 Oximetry 09/02/17 09/02/17 09/02/17 04:01 04:11 04:21 Temperature Pulse Rate 104 H 111 H 108 H Pulse Rate [ From Monitor] Respiratory 17 17 14 Rate Blood Pressure 138/75 138/75 138/75 O2 Sat by Pulse 96 98 98 Oximetry 09/02/17 09/02/17 09/02/17 04:31 04:41 04:51 Temperature Pulse Rate 96 H 115 H 107 H Pulse Rate [ From Monitor] Respiratory 13 19 16 Rate Blood Pressure 138/75 138/75 138/75 O2 Sat by Pulse 98 97 97 Oximetry 09/02/17 09/02/17 09/02/17 05:01 05:11 05:21 Temperature Pulse Rate 91 H 115 H 97 H Pulse Rate [ From Monitor] Respiratory 18 18 19 Rate Blood Pressure 138/75 138/75 138/75 O2 Sat by Pulse 98 98 98 Oximetry 09/02/17 09/02/17 09/02/17 05:31 05:41 05:51 Temperature Pulse Rate 106 H 97 H 114 H Pulse Rate [ From Monitor] Respiratory 21 12 18 Rate Blood Pressure 138/75 138/75 138/75 O2 Sat by Pulse 99 98 97 Oximetry 09/02/17 09/02/17 09/02/17 06:00 06:11 06:21 Temperature Pulse Rate 98 H 92 H 109 H Pulse Rate [ From Monitor] Respiratory 7 L 20 14 Rate Blood Pressure 130/58 130/58 130/58 O2 Sat by Pulse 96 96 96 Oximetry 09/02/17 09/02/17 09/02/17 06:31 06:41 06:51 Temperature Pulse Rate 100 H 93 H 95 H Pulse Rate [ From Monitor] Respiratory 20 20 21 Rate Blood Pressure 130/58 130/58 130/58 O2 Sat by Pulse 99 98 97 Oximetry 09/02/17 09/02/17 09/02/17 07:00 07:11 07:21 Temperature Pulse Rate 102 H 96 H 96 H Pulse Rate [ From Monitor] Respiratory 20 21 20 Rate Blood Pressure 139/56 139/56 130/58 O2 Sat by Pulse 98 98 98 Oximetry 09/02/17 09/02/17 09/02/17 07:28 07:31 07:41 Temperature Pulse Rate 93 H 84 Pulse Rate [ 93 H From Monitor] Respiratory 17 20 19 Rate Blood Pressure 130/58 130/58 O2 Sat by Pulse 99 98 98 Oximetry 09/02/17 09/02/17 09/02/17 07:51 08:00 08:11 Temperature 98.6 F Pulse Rate 88 101 H 105 H Pulse Rate [ From Monitor] Respiratory 20 20 21 Rate Blood Pressure 139/56 139/56 140/59 O2 Sat by Pulse 99 100 99 Oximetry 09/02/17 09/02/17 09/02/17 08:21 08:31 08:41 Temperature Pulse Rate 108 H 93 H 90 Pulse Rate [ From Monitor] Respiratory 17 20 20 Rate Blood Pressure 140/59 140/59 140/59 O2 Sat by Pulse 98 99 98 Oximetry 09/02/17 09/02/17 09/02/17 08:51 09:01 09:11 Temperature Pulse Rate 95 H 94 H 85 Pulse Rate [ From Monitor] Respiratory 18 24 21 Rate Blood Pressure 140/59 140/59 158/78 O2 Sat by Pulse 97 98 97 Oximetry 09/02/17 09/02/17 09/02/17 09:21 09:31 09:41 Temperature Pulse Rate 98 H 93 H 91 H Pulse Rate [ From Monitor] Respiratory 15 23 21 Rate Blood Pressure 158/78 158/78 158/78 O2 Sat by Pulse 96 96 96 Oximetry 09/02/17 09/02/17 09/02/17 09:51 10:00 10:01 Temperature Pulse Rate 100 H 95 H 106 H Pulse Rate [ 93 H From Monitor] Respiratory 17 17 17 Rate Blood Pressure 158/78 158/78 O2 Sat by Pulse 97 99 96 Oximetry - General physical appearance Narrative Exam: Gen: Awake and alert. Answers questions appropriately by mouthing answers. Appears comfortable. CV: S1, S2+ Resp: even and unlabored Abd: soft, NT, ND. PEG at 2cm at skin. Light bilious output - hooked to suction Ext; no c/c/e - Labs 09/02/17 04:48 09/02/17 04:48 Diabetes panel 09/02/17 Range/Units 04:48 Sodium 155 H (137-145) mmol/L Potassium 3.8 (3.6-5.0) mmol/L Chloride 117.3 H (98-107) mmol/L Carbon Dioxide 27 (22-30) mmol/L BUN 44 H (9-20) mg/dL Creatinine 1.9 H (0.8-1.5) mg/dL Glucose 175 H (75-100) mg/dL Calcium 8.3 L (8.4-10.2) mg/dL AST 23 (5-40) units/L ALT 36 (7-56) units/L Alkaline Phosphatase 97 (35-129) units/L Total Protein 5.5 L (6.3-8.2) g/dL Albumin 2.5 L (3.9-5) g/dL Calcium panel 09/02/17 Range/Units 04:48 Calcium 8.3 L (8.4-10.2) mg/dL Phosphorus 3.60 (2.5-4.5) mg/dL Albumin 2.5 L (3.9-5) g/dL Pituitary panel 09/02/17 Range/Units 04:48 Sodium 155 H (137-145) mmol/L Potassium 3.8 (3.6-5.0) mmol/L Chloride 117.3 H (98-107) mmol/L Carbon Dioxide 27 (22-30) mmol/L BUN 44 H (9-20) mg/dL Creatinine 1.9 H (0.8-1.5) mg/dL Glucose 175 H (75-100) mg/dL Calcium 8.3 L (8.4-10.2) mg/dL Adrenal panel 09/02/17 Range/Units 04:48 Sodium 155 H (137-145) mmol/L Potassium 3.8 (3.6-5.0) mmol/L Chloride 117.3 H (98-107) mmol/L Carbon Dioxide 27 (22-30) mmol/L BUN 44 H (9-20) mg/dL Creatinine 1.9 H (0.8-1.5) mg/dL Glucose 175 H (75-100) mg/dL Calcium 8.3 L (8.4-10.2) mg/dL Total Bilirubin 0.90 (0.1-1.2) mg/dL AST 23 (5-40) units/L ALT 36 (7-56) units/L Alkaline Phosphatase 97 (35-129) units/L Total Protein 5.5 L (6.3-8.2) g/dL Albumin 2.5 L (3.9-5) g/dL
[2017-09-02] MEDS: D5/0.45NS 1,000 ML IV SCH (11:00)
[2017-09-02] MEDS ORDERED: COLACE FEEDTUBE SCH (12:00)
[2017-09-02] MEDS ORDERED: LANTUS SUB-Q SCH (12:00)
[2017-09-02] MEDS ORDERED: HumaLOG SUB-Q SCH (12:00)
[2017-09-02] MEDS ORDERED: REGLAN IV SCH (12:00)
--- NOTE | 2017-09-02 13:42 | Progress Note ---
Objective - Vital Signs Vital signs: Vital Signs - 12hr 09/02/17 09/02/17 09/02/17 01:51 02:00 02:01 Temperature Pulse Rate Pulse Rate [ 99 H From Monitor] Respiratory Rate Blood Pressure 143/57 133/88 O2 Sat by Pulse 97 100 97 Oximetry 09/02/17 09/02/17 09/02/17 02:11 02:21 02:31 Temperature Pulse Rate 97 H 93 H 95 H Pulse Rate [ From Monitor] Respiratory 20 20 8 L Rate Blood Pressure 133/88 133/88 133/88 O2 Sat by Pulse 98 98 98 Oximetry 09/02/17 09/02/17 09/02/17 02:41 02:51 02:52 Temperature Pulse Rate 98 H 112 H 106 H Pulse Rate [ From Monitor] Respiratory 18 14 Rate Blood Pressure 133/88 133/88 133/88 O2 Sat by Pulse 98 99 99 Oximetry 09/02/17 09/02/17 09/02/17 03:01 03:11 03:21 Temperature Pulse Rate 113 H 109 H Pulse Rate [ From Monitor] Respiratory 14 21 Rate Blood Pressure 140/85 140/85 140/85 O2 Sat by Pulse 99 98 99 Oximetry 09/02/17 09/02/17 09/02/17 03:31 03:41 03:51 Temperature Pulse Rate 114 H 114 H 113 H Pulse Rate [ From Monitor] Respiratory 17 17 15 Rate Blood Pressure 140/85 140/85 140/85 O2 Sat by Pulse 98 98 98 Oximetry 09/02/17 09/02/17 09/02/17 04:00 04:01 04:11 Temperature 98.4 F Pulse Rate 104 H 111 H Pulse Rate [ From Monitor] Respiratory 17 17 Rate Blood Pressure 138/75 138/75 O2 Sat by Pulse 96 98 Oximetry 09/02/17 09/02/17 09/02/17 04:21 04:31 04:41 Temperature Pulse Rate 108 H 96 H 115 H Pulse Rate [ From Monitor] Respiratory 14 13 19 Rate Blood Pressure 138/75 138/75 138/75 O2 Sat by Pulse 98 98 97 Oximetry 09/02/17 09/02/17 09/02/17 04:51 05:01 05:11 Temperature Pulse Rate 107 H 91 H 115 H Pulse Rate [ From Monitor] Respiratory 16 18 18 Rate Blood Pressure 138/75 138/75 138/75 O2 Sat by Pulse 97 98 98 Oximetry 09/02/17 09/02/17 09/02/17 05:21 05:31 05:41 Temperature Pulse Rate 97 H 106 H 97 H Pulse Rate [ From Monitor] Respiratory 19 21 12 Rate Blood Pressure 138/75 138/75 138/75 O2 Sat by Pulse 98 99 98 Oximetry 09/02/17 09/02/17 09/02/17 05:51 06:00 06:11 Temperature Pulse Rate 114 H 98 H 92 H Pulse Rate [ From Monitor] Respiratory 18 7 L 20 Rate Blood Pressure 138/75 130/58 130/58 O2 Sat by Pulse 97 96 96 Oximetry 09/02/17 09/02/17 09/02/17 06:21 06:31 06:41 Temperature Pulse Rate 109 H 100 H 93 H Pulse Rate [ From Monitor] Respiratory 14 20 20 Rate Blood Pressure 130/58 130/58 130/58 O2 Sat by Pulse 96 99 98 Oximetry 09/02/17 09/02/17 09/02/17 06:51 07:00 07:11 Temperature Pulse Rate 95 H 102 H 96 H Pulse Rate [ From Monitor] Respiratory 21 20 21 Rate Blood Pressure 130/58 139/56 139/56 O2 Sat by Pulse 97 98 98 Oximetry 09/02/17 09/02/17 09/02/17 07:21 07:28 07:31 Temperature Pulse Rate 96 H 93 H Pulse Rate [ 93 H From Monitor] Respiratory 20 17 20 Rate Blood Pressure 130/58 130/58 O2 Sat by Pulse 98 99 98 Oximetry 09/02/17 09/02/17 09/02/17 07:41 07:51 08:00 Temperature 98.6 F Pulse Rate 84 88 101 H Pulse Rate [ From Monitor] Respiratory 19 20 20 Rate Blood Pressure 130/58 139/56 139/56 O2 Sat by Pulse 98 99 100 Oximetry 09/02/17 09/02/17 09/02/17 08:11 08:21 08:31 Temperature Pulse Rate 105 H 108 H 93 H Pulse Rate [ From Monitor] Respiratory 21 17 20 Rate Blood Pressure 140/59 140/59 140/59 O2 Sat by Pulse 99 98 99 Oximetry 09/02/17 09/02/17 09/02/17 08:41 08:51 09:01 Temperature Pulse Rate 90 95 H 94 H Pulse Rate [ From Monitor] Respiratory 20 18 24 Rate Blood Pressure 140/59 140/59 140/59 O2 Sat by Pulse 98 97 98 Oximetry 09/02/17 09/02/17 09/02/17 09:11 09:21 09:31 Temperature Pulse Rate 85 98 H 93 H Pulse Rate [ From Monitor] Respiratory 21 15 23 Rate Blood Pressure 158/78 158/78 158/78 O2 Sat by Pulse 97 96 96 Oximetry 09/02/17 09/02/17 09/02/17 09:41 09:51 10:00 Temperature Pulse Rate 91 H 100 H 95 H Pulse Rate [ 93 H From Monitor] Respiratory 21 17 17 Rate Blood Pressure 158/78 158/78 O2 Sat by Pulse 96 97 99 Oximetry 09/02/17 09/02/17 09/02/17 10:01 10:11 10:21 Temperature Pulse Rate 106 H 105 H Pulse Rate [ From Monitor] Respiratory 17 19 Rate Blood Pressure 158/78 158/78 147/79 O2 Sat by Pulse 96 96 96 Oximetry 09/02/17 09/02/17 09/02/17 10:31 10:41 10:51 Temperature Pulse Rate 101 H 101 H 90 Pulse Rate [ From Monitor] Respiratory 17 17 16 Rate Blood Pressure 147/79 147/79 147/79 O2 Sat by Pulse 95 94 93 Oximetry 09/02/17 09/02/17 09/02/17 11:01 11:11 11:21 Temperature Pulse Rate 83 99 H 94 H Pulse Rate [ From Monitor] Respiratory 16 18 16 Rate Blood Pressure 138/75 138/75 138/75 O2 Sat by Pulse 95 94 94 Oximetry 09/02/17 09/02/17 09/02/17 11:31 11:41 11:51 Temperature Pulse Rate 105 H 103 H 103 H Pulse Rate [ From Monitor] Respiratory 18 19 18 Rate Blood Pressure 138/75 138/75 138/75 O2 Sat by Pulse 94 94 95 Oximetry 09/02/17 09/02/17 09/02/17 12:00 12:11 12:21 Temperature 98.4 F Pulse Rate 101 H 97 H 111 H Pulse Rate [ 93 H From Monitor] Respiratory 18 19 18 Rate Blood Pressure 157/81 157/81 157/81 O2 Sat by Pulse 95 96 96 Oximetry - Lab 09/02/17 04:48 09/02/17 04:48 Most recent lab results Calcium 8.3 mg/dL (8.4-10.2) L 09/02/17 04:48 Phosphorus 3.60 mg/dL (2.5-4.5) 09/02/17 04:48 Magnesium 2.10 mg/dL (1.7-2.3) 09/02/17 04:48
--- NOTE | 2017-09-02 13:46 | XRay Report ---
Single view chest: Compared to 09/01/17. History: Pneumoperitoneum and left PICC line placement. Findings: Cardiomegaly with pulmonary vascular congestion and bilateral pleural effusion. Stable tracheostomy tube. Tip of left PICC line in upper superior vena cava. Tip of right central line in upper superior vena cava just distal to the tip of left PICC line. Impression: Tip of left PICC line in upper superior vena cava. Pulmonary venous congestion with bilateral pleural effusion.
[2017-09-02] MEDS ORDERED: HEPARIN SUB-Q SCH (14:00)
[2017-09-02] MEDS ORDERED: D5W 1,000 ML IV SCH (15:30)
--- NOTE | 2017-09-02 16:18 | Discharge Summary ---
Providers - Providers Date of Admission: 08/31/17 22:43 Date of discharge: 09/02/17 Attending physician: BURAK SKY MD 09/01/17 00:48 Consult to Physician [CONS] Routine Comment: Consulting Provider: HILTON GLASER Physician Instructions: Reason For Exam: acute repiratory fialure 09/01/17 00:49 Consult to Physician [CONS] Routine Comment: Consulting Provider: JUAN JOSE SHARPE Physician Instructions: Reason For Exam: acute renal failure 09/01/17 09:57 Consult to Physician [CONS] Routine Comment: Consulting Provider: VON PARHAM Physician Instructions: Reason For Exam: sepsis with possible septic shock 09/01/17 17:58 Consult to PICC Line RN [CONS] Routine Reason For Exam: poor peripheral vein access/ possible TPN Type Line:: PICC Primary care physician: HEMANTH LOPEZ Hospitalization Reason for admission: Intraperitoneal air Disposition: [id number]/[place]-03 [facility] Time spent for discharge: 31 minutes - Discharge Diagnoses (1) Free intraperitoneal air Status: Acute (2) Abdominal distention Status: Acute Core Measure Documentation - Palliative Care Palliative Care/ Comfort Measures: Not Applicable - Core Measures Any of the following diagnoses?: none Exam - Physical Exam Narrative exam: Not in cardiopulmonary distress. The patient appeared well nourished and normally developed. Vital signs as documented. Head exam is unremarkable. No scleral icterus . Neck is without jugular venous distension, thyromegaly, or carotid bruits. Lungs are clear to auscultation. Cardiac exam reveals regular rate and Rhythm. First and second heart sounds normal. No murmurs, rubs or gallops. Abdominal exam reveals normal bowel sounds, no masses, no organomegaly and no aortic enlargement. Extremities are nonedematous and both femoral and pedal pulses are normal. 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 - Constitutional Vitals: Temp Pulse Resp BP Pulse Ox 98.4 F 94 H 15 145/79 94 09/02/17 12:00 09/02/17 15:00 09/02/17 15:00 09/02/17 15:00 09/02/17 15:00 Plan Activity: advance as tolerated Weight Bearing Status: Weight Bear as Tolerated Diet: low cholesterol Follow up with: HEMANTH LOPEZ MD [Primary Care Provider] - 7 Days
[2017-09-02 16:32] VITALS: BP 153/79
== END 2017-09-02 17:45 | DRG 871 ==
LOC: CC1 22:43
PROVIDERS: ADMIT Family Medicine; ATTEND Internal Medicine
PROC: 4A033R1 Measurement of Arterial Saturation, Peripheral, Percutaneous Approach (ICD-10-PCS; 2017-09-01)
PROC: 02HV33Z Insertion of Infusion Device into Superior Vena Cava, Percutaneous Approach (ICD-10-PCS; principal; 2017-09-02)
DX: A41.9 Sepsis, unspecified organism (principal); R65.21 Severe sepsis with septic shock; J96.21 Acute and chronic respiratory failure with hypoxia; N17.0 Acute kidney failure with tubular necrosis; G92 Toxic encephalopathy; E87.0 Hyperosmolality and hypernatremia; D62 Acute posthemorrhagic anemia; R14.0 Abdominal distension (gaseous); I25.10 Atherosclerotic heart disease of native coronary artery without angina pectoris; E11.51 Type 2 diabetes mellitus with diabetic peripheral angiopathy without gangrene; I10 Essential (primary) hypertension; R13.12 Dysphagia, oropharyngeal phase; E66.9 Obesity, unspecified; F17.200 Nicotine dependence, unspecified, uncomplicated; F10.10 Alcohol abuse, uncomplicated; I72.3 Aneurysm of iliac artery; Z88.2 Allergy status to sulfonamides; Z79.82 Long term (current) use of aspirin; Z79.899 Other long term (current) drug therapy; Z68.39 Body mass index [BMI] 39.0-39.9, adult
CPT/HCPCS: 36415; 36600; 71045; 80053; 81001; 82140; 82803; 82962; 83036; 83735; 84100; 85014; 85018; 85025; 86140; 86850; 86900; 86901; 87040; 87070; 87086; 87205; 93005; 93010; 94002; 94003; J1170; J1644; J1815; J1956; J2543; J2765; J3370; J7040; J7070

== ENCOUNTER 2017-09-12 22:35 | Inpatient (IN) | payer OTHER, MEDICARE ==
--- NOTE | 2017-09-12 22:39 | Post Operative Note ---
Date of procedure: 09/12/17 Pre-op diagnosis: pneumoperitoneum, septic shock Post-op diagnosis: same Findings: Free tube feeds in abdomen, PEG tube dislodged from stomach Procedure: Exploratory laparotomy, repair of gastrotomy, removal of PEG tube, peritoneal lavage, temporary closure of abdomen with Abthera Vac Anesthesia: MARICEL Surgeon: REHANA MAHMOOD Water Purifier: LAUREN SILVEIRA Estimated blood loss: minimal Pathology: none Condition: critical Disposition: PACU (to ICU)
[2017-09-12] MEDS ORDERED: TYLENOL PO PRN (22:44)
[2017-09-12] MEDS ORDERED: NARCAN 0.4 MG/1 ML IV PRN (22:44)
[2017-09-12] MEDS ORDERED: D50W (25GM) Syringe IV PRN (22:44)
[2017-09-12] MEDS ORDERED: SODIUM CHLORIDE FLUSH SYRINGE 10 ML IV PRN (22:44)
[2017-09-12] MEDS ORDERED: ATIVAN IV PRN (22:50)
[2017-09-12] MEDS ORDERED: ARTIFICIAL TEARS OPHTH OINT OU PRN (22:50)
[2017-09-12] MEDS ORDERED: VASELINE LIP THERAPY TP PRN (22:50)
[2017-09-12] MEDS ORDERED: NACL 0.9% 500 ML IV PRN (22:50)
[2017-09-12] MEDS ORDERED: DIFLUCAN IV ONE (22:52)
[2017-09-12] MEDS ORDERED: VIAFLEX EMPTY CONTAINER IV ONE (22:52)
--- NOTE | 2017-09-12 23:06 | Consultation ---
History of Present Illness Consult date: 09/12/17 Requesting physician: HILTON GLASER Chief complaint: free air - History of present illness History of present illness: Pt seen in [facility]: 66 yo M with a complex medical history including hx of recent hospitalization in August 11 2017 for a lower extremity vascular procedure and subsequent return to the OR the day after the original procedure for hypotension. During that hospitalization, the patient underwent multiple blood transfusions and was on the ventilator. The patient underwent a trach/PEG by our service on 08/24/17 due to inability to wean from vent. He was sent to [facility] after that hospitalization. The patient was seen in consultation on 08/31/17 for pneumoperitoneum. At that time he was transferred back to the ICU and monitored. He was stable on initial exam and remained stable throughout the hospitalization and was sent back to [facility] on TPN. Tube feeds were help in order to allow the PEG to heal and tract to form. Tube feeds were restarted two days ago at 10cc/hr. The patient was doing well up until last night when he started to develop abdominal distension. This am he was anxious per his and he was given dilaudid 0.5mg IV for complaints of abdominal pain. Since then , the patient has had depressed mental status and is not responsive. He was started on levophed for hypotension. Labs and CT scan were obtained. Ct A/P showed pneumoperitoneum and PEG tube bumper outside of stomach. Surgery consulted. Labs: WBC: 2.7 Hb: 9.5 Plt: 88 BUN: 39 Video Software Engineer: 1.4 K: 4.5 LA: 3.1 Past History Past Medical History: CAD, diabetes, hypertension, hyperlipidemia, other Past Surgical History: Other (Trach/PEG, R [facility] [employer]ONER endarterectomy, b/l iliac angio and external iliac stent) Social history: smoking, alcohol abuse Family history: no significant family history Medications and Allergies Allergies Allergy/AdvReac Type Severity Reaction Status Date / Time Sulfa (Sulfonamide Allergy rash, Verified 08/05/17 10:59 Antibiotics) swelling Home Medications Medication Instructions Recorded Confirmed Last Taken Type Amlodipine Besylate [Norvasc] 10 mg PO DAILY 05/05/17 09/01/17 08/11/17 05:30 History Aspirin [Lo-Dose Aspirin EC] 81 mg PO DAILY 05/05/17 09/01/17 08/11/17 05:30 History Cilostazol [Pletal] 100 mg PO BID 05/05/17 09/01/17 08/11/17 05:30 History Diclofenac Sodium 75 mg PO DAILY 05/05/17 09/01/17 08/11/17 05:30 History Labetalol HCl 300 mg PO TID 05/05/17 09/01/17 08/11/17 05:30 History PARoxetine [Paxil] 20 mg PO DAILY 05/05/17 09/01/17 08/11/17 05:30 History Valsartan-Hctz 320-25 mg Tab 1 tab PO DAILY 05/05/17 09/01/17 08/11/17 05:30 History metFORMIN [Glucophage] 500 mg PO BID 05/05/17 09/01/17 08/10/17 History HYDROcodone/APAP 7.5-325 [Dillon 1 each PO Q6HR PRN #20 tablet 05/12/17 09/01/17 Unknown Rx 7.5-325 mg TAB] Active Meds: Active Medications Acetaminophen (Tylenol) 650 mg PO Q4H PRN PRN Reason: Pain MILD(1-3)/Fever >100.5/BELLAMY Dextrose (D50w (25gm) Syringe) 50 ml IV PRN PRN PRN Reason: Hypoglycemia Fentanyl (Sublimaze) 50 mcg IV Q2H PRN PRN Reason: Pain Heparin Sodium (Porcine) (Heparin) 5,000 unit SUB-Q Q8HR PANCHITO Hydrophilic Ointment (Vaseline Lip Therapy) 1 applic TP Q2HR PRN PRN Reason: Dry Lips Sodium Chloride (Nacl 0.9% 1000 Ml) 1,000 mls @ 125 mls/hr IV DIRECT PANCHITO Fluconazole 800 mg/ (Miscellaneous Information) 400 mls @ 100 mls/hr IV ONCE ONE Stop: 09/13/17 02:51 Levofloxacin/Dextrose (Levaquin 500mg/100ml) 500 mg in 100 mls @ 100 mls/hr IV Q24HR PANCHITO; Protocol Metronidazole (Flagyl 500 Mg/100 Ml) 500 mg in 100 mls @ 100 mls/hr IV Q8HR PANCHITO Norepinephrine (Levophed Drip 4 Mg/Ns 250 Ml) 4 mg in 250 mls @ 7.5 mls/hr IV TITR PANCHITO; Protocol Vasopressin 20 unit/ Sodium (Chloride) 101 mls @ 9.09 mls/hr IV TITR PANCHITO; Protocol Insulin Human Lispro (Humalog) 0 unit SUB-Q Q6HR PANCHITO; Protocol Lorazepam (Ativan) 2 mg IV Q4HR PRN PRN Reason: Moderate Agitation Multi-Ingred Cream/Lotion/Oil/Oint (Artificial Tears Ophth Oint) 1 applic OU Q4HR PRN PRN Reason: Dry Eye(s) Naloxone HCl (Narcan 0.4 Mg/1 Ml) 0.1 mg IV Q2MIN PRN PRN Reason: Res Rate </= 8 or 02 SAT < 92% Pantoprazole Sodium (Protonix) 40 mg IV QDAY PANCHITO Sodium Chloride (Sodium Chloride Flush Syringe 10 Ml) 10 ml IV BID PANCHITO Sodium Chloride (Sodium Chloride Flush Syringe 10 Ml) 10 ml IV PRN PRN PRN Reason: LINE FLUSH Sodium Chloride (Nacl 0.9% 500 Ml) 5 ml IV DIRECT PRN PRN Reason: [employer]ION[employer]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 Otherwise, not responsive ENT: no scleral icterus or conjunctival pallor. Tracheostomy site c/d/i CV: S1, S2+. tachy Resp: even and unlabored, on vent Abd: firm, very distended, + TTP on L and R side of abdomen, no r/r/g. PEG tube site c/d/i, bumper at 1.5cm at skin. Ext: pedal edema : barrientos Results - Labs Abnormal lab results 09/12/17 Range/Units 22:56 POC Glucose 135 H (70-105) - Imaging CT scan - abdomen: report reviewed, image reviewed CT scan - pelvis: report reviewed, image reviewed Assessment and Plan 66 yo M with pneumoperitoneum secondary to dislodged PEG tube, septic shock. Plan: 1. Pt will need emergent OR for exlap, possible gastric resection, possible placement of feeding tube. All risks and benefits were discussed with his at the bedside. She is aware that he is unstable, requiring pressors and is at high risk for any surgical intervention which can even lead to . However, with current clinical condition and CT findings, it is unlikely he will do well without surgery. Consent signed. 2. Pt to be transferred to ICU, d/w Dr. Munoz 3. IV fluids 4. c/w pressors, wean as tolerated 5. stat type and screen ordered 6. start abx 7. will attempt dee placement in OR 8. vent management per ICU team 9. further recs pending OR findings and clinical course Thank you for this consultation, please call with questions or concerns.
[2017-09-13] MEDS: HumaLOG SUB-Q SCH ×4 (00:36→17:02)
[2017-09-13] MEDS: Vasostrict 20 UNIT in NACL 0.9% 100 ML IV SCH ×2 (00:48→15:48)
[2017-09-13] MEDS: DIFLUCAN 200 ML IV SCH ×2 (00:48→02:01)
[2017-09-13] MEDS: HEPARIN SUB-Q SCH ×4 (00:48→21:24)
[2017-09-13] MEDS: FLAGYL 500 MG/100 ML 500 MG/100 ML BAG IV SCH ×4 (00:50→21:25)
[2017-09-13] MEDS: LEVOPHED DRIP 4 MG/NS 250 ML 4 MG/250 ML BAG IV SCH ×2 (03:54→15:26)
[2017-09-13 06:20] LABS: Hematocrit 34.4 % (35.5-45.6); Hemoglobin 11.5 gm/dl (11.8-15.2); Mean Corpuscular HGB Conc 34 % (32-34); Mean Corpuscular Hemoglobin 32 pg (28-32); Mean Corpuscular Volume 95 fl (84-94); Red Cell Distribution Width 19.8 % (13.2-15.2)
[2017-09-13 06:23] LABS: Platelet Count 83 K/mm3 (140-440)
[2017-09-13 06:32] LABS: Calcium 7.8 mg/dL (8.4-10.2); Prealbumin 0.05 g/L (0.200-0.400)
[2017-09-13 07:29] LABS: Band Neutrophils # (Manual) 1.5 K/mm3; Basophils % (Manual) 0 % (0.0-1.8); Eosinophils % (Manual) 0 % (0.0-4.3); Total Cells Counted 100
[2017-09-13 07:30] LABS: Anisocytosis 1+; Poikilocytosis 1+; Schistocytes Rare
[2017-09-13 07:31] LABS: Platelet Estimate Consistent w Auto
[2017-09-13] MEDS: PROTONIX IV SCH (09:00)
[2017-09-13] MEDS: SODIUM CHLORIDE FLUSH SYRINGE 10 ML IV SCH ×2 (09:00→21:27)
--- NOTE | 2017-09-13 09:33 | XRay Report ---
Single view chest: Compared to 09/02/17. History: vent Findings: Cardiomegaly. It would support system. Pulmonary venous congestion and bilateral pleural effusion. No significant interval change. Impression: No significant interval change. The tip of the right PICC line in mid superior vena cava. Left PICC line has been removed. There is an NG tube
[2017-09-13] MEDS ORDERED: PEPCID IV SCH (10:00)
[2017-09-13] MEDS ORDERED: LEVAQUIN 500MG/100ML 500 MG/100 ML BAG IV SCH (10:00)
--- NOTE | 2017-09-13 12:11 | History and Physical Report ---
History of Present Illness Date of examination: 09/13/17 Date of admission: 09/12/17 22:35 Chief complaint: Covering for Dr. Dr. Ayala Patient seen and examined chart reviewed. 66-year-old male transferred from the LTAC following change in mental status, hypotension tachycardia. Patient was evaluated and noted to have progressive abdominal distention and abdominal discomfort. Patient previously evaluated by general surgeon for dislodged PEG tube which was replaced yesterday and confirmed to be in position. Patient was restarted on tube feeding and has not been noted to have worsening mental status as well as abdominal distention. Patient was evaluated by general surgeon and found to have pneumoperitoneum and subsequently taken to the operating room and status post laparotomy on the ventilator. Patient previously admitted for acute respiratory failure status post PEG and trach and has been fairly stable prior to onset of new symptoms requiring transfer to the operating room and subsequent admission to the intensive care unit for further stabilization. 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, b/l iliac angio and external iliac stent) Social history: smoking, alcohol abuse Family history: no significant family history Medications and Allergies Allergies Allergy/AdvReac Type Severity Reaction Status Date / Time Sulfa (Sulfonamide Allergy rash, Verified 08/05/17 10:59 Antibiotics) swelling Home Medications Medication Instructions Recorded Confirmed Last Taken Type Amlodipine Besylate [Norvasc] 10 mg PO DAILY 05/05/17 09/01/17 08/11/17 05:30 History Aspirin [Lo-Dose Aspirin EC] 81 mg PO DAILY 05/05/17 09/01/17 08/11/17 05:30 History Cilostazol [Pletal] 100 mg PO BID 05/05/17 09/01/17 08/11/17 05:30 History Diclofenac Sodium 75 mg PO DAILY 05/05/17 09/01/17 08/11/17 05:30 History Labetalol HCl 300 mg PO TID 05/05/17 09/01/17 08/11/17 05:30 History PARoxetine [Paxil] 20 mg PO DAILY 05/05/17 09/01/17 08/11/17 05:30 History Valsartan-Hctz 320-25 mg Tab 1 tab PO DAILY 05/05/17 09/01/17 08/11/17 05:30 History metFORMIN [Glucophage] 500 mg PO BID 05/05/17 09/01/17 08/10/17 History HYDROcodone/APAP 7.5-325 [[place] 1 each PO Q6HR PRN #20 tablet 05/12/17 09/01/17 Unknown Rx 7.5-325 mg TAB] Active Meds: Active Medications Acetaminophen (Tylenol) 650 mg PO Q4H PRN PRN Reason: Pain MILD(1-3)/Fever >100.5/BELLAMY Dextrose (D50w (25gm) Syringe) 50 ml IV PRN PRN PRN Reason: Hypoglycemia Fentanyl (Sublimaze) 50 mcg IV Q2H PRN PRN Reason: Pain Heparin Sodium (Porcine) (Heparin) 5,000 unit SUB-Q Q8HR [facility] Last Admin: 09/13/17 05:36 Dose: 5,000 unit Hydrophilic Ointment (Vaseline Lip Therapy) 1 applic TP Q2H PRN PRN Reason: Dry Lips Sodium Chloride (Nacl 0.9% 1000 Ml) 1,000 mls @ 125 mls/hr IV DIRECT [facility] Metronidazole (Flagyl 500 Mg/100 Ml) 500 mg in 100 mls @ 100 mls/hr IV Q8HR [facility] Last Admin: 09/13/17 05:36 Dose: 100 mls/hr Norepinephrine (Levophed Drip 4 Mg/Ns 250 Ml) 4 mg in 250 mls @ 7.5 mls/hr IV TITR [facility]; Protocol Last Titration: 09/13/17 11:09 Dose: Infused Vasopressin 20 unit/ Sodium (Chloride) 101 mls @ 9.09 mls/hr IV TITR [facility]; Protocol Last Admin: 09/13/17 00:48 Dose: 0.03 units/min, 9.09 mls/hr Levofloxacin/Dextrose (Levaquin 500mg/100ml) 500 mg in 100 mls @ 100 mls/hr IV Q48HR [facility]; Protocol Amino Acids/Electrolytes/Dextrose (Tpn Adult) 2,400 mls @ 100 mls/hr IV DAILY@ 2000 [facility]; Protocol Stop: 09/14/17 19:59 Insulin Human Lispro (Humalog) 0 unit SUB-Q Q6HR [facility]; Protocol Last Admin: 09/13/17 11:15 Dose: Not Given Lorazepam (Ativan) 2 mg IV Q4H PRN PRN Reason: Moderate Agitation Multi-Ingred Cream/Lotion/Oil/Oint (Artificial Tears Ophth Oint) 1 applic OU Q4H PRN PRN Reason: Dry Eye(s) Naloxone HCl (Narcan 0.4 Mg/1 Ml) 0.1 mg IV Q2MIN PRN PRN Reason: Res Rate </= 8 or 02 SAT < 92% Pantoprazole Sodium (Protonix) 40 mg IV QDAY [facility] Last Admin: 09/13/17 09:00 Dose: 40 mg Sodium Chloride (Sodium Chloride Flush Syringe 10 Ml) 10 ml IV BID [facility] Last Admin: 09/13/17 09:00 Dose: 10 ml Sodium Chloride (Sodium Chloride Flush Syringe 10 Ml) 10 ml IV PRN PRN PRN Reason: LINE FLUSH Sodium Chloride (Nacl 0.9% 500 Ml) 5 ml 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 Patient is not pale, not jaundiced, and not cyanosed.] [Mucous membrane is moist, pharynx is clear, no exudates or hemorrhage. Dentition is normal.] NECK: [Supple. Neck showed good range of motion. There is no adenopathy noted. No jugular venous distention and no thyromegaly.] [Neck auscultation showed no carotid bruit.] CHEST/LUNGS: [Good air exchange bilaterally. Clear to auscultation. There is no respiratory distress noted. Chest percussion normal, symmetrical chest movements with no chest wall tenderness.] HEART/CARDIOVASCULAR: [No murmur. Regular rate and rhythm. S1 and S2 only, no S3 gallop, no S4.] ABDOMEN: [Abdomen is soft, nontender. Abdomen is moderately distended, no palpable mass wound VAC in place over the PEG tube site site draining serosanguineous fluid. NEURO: [The patient is awake, alert, and oriented. The patient is cooperative. The patient has no focal neurologic deficits. Cranial nerves 2-12 grossly normal, power is 5/5 in all the extremities tested. The patient has normal speech and gait.] MUSCULOSKELETAL: [There is no tenderness or deformity. There is no limitation range of motion. There is no evidence of acute injury.] EXTREMITIES: Trace pedal edema bilaterally up to the knees, good peripheral pulses symmetrical and bilaterally, no pretibial edema, no finger or toe clubbing.] - Constitutional Vitals: Temp Pulse Resp BP Pulse Ox 99.2 F 116 H 23 99/65 98 09/13/17 11:18 09/13/17 11:46 09/13/17 11:46 09/13/17 11:46 09/13/17 11:46 Results - Labs CBC & Chem 7: 09/13/17 05:20 09/13/17 05:20 Labs: Abnormal lab results 09/12/17 09/13/17 09/13/17 Range/Units 22:56 03:08 05:20 RBC 3.60 L (3.65-5.03) M/mm3 Hgb 11.5 L (11.8-15.2) gm/dl Hct 34.4 L (35.5-45.6) % MCV 95 H (84-94) fl RDW 19.8 H (13.2-15.2) % Plt Count 83 L (140-440) K/mm3 Lymphocytes % (Manual) 11.0 L (13.4-35.0) % Lymphocytes # (Manual) 0.7 L (1.2-5.4) K/mm3 POC ABG pH 7.280 L (7.35-7.45) POC ABG pCO2 46.4 H (35-45) POC ABG pO2 110 H (80-105) Potassium (3.6-5.0) mmol/L Chloride (98-107) mmol/L Carbon Dioxide (22-30) mmol/L BUN (9-20) mg/dL Creatinine (0.8-1.5) mg/dL POC Glucose 135 H (70-105) Calcium (8.4-10.2) mg/dL Phosphorus (2.5-4.5) mg/dL Prealbumin (0.200-0.400) g/L 09/13/17 Range/Units 05:20 RBC (3.65-5.03) M/mm3 Hgb (11.8-15.2) gm/dl Hct (35.5-45.6) % MCV (84-94) fl RDW (13.2-15.2) % Plt Count (140-440) K/mm3 Lymphocytes % (Manual) (13.4-35.0) % Lymphocytes # (Manual) (1.2-5.4) K/mm3 POC ABG pH (7.35-7.45) POC ABG pCO2 (35-45) POC ABG pO2 (80-105) Potassium 5.2 H (3.6-5.0) mmol/L Chloride 109.6 H (98-107) mmol/L Carbon Dioxide 20 L (22-30) mmol/L BUN 54 H (9-20) mg/dL Creatinine 2.3 H (0.8-1.5) mg/dL POC Glucose (70-105) Calcium 7.8 L (8.4-10.2) mg/dL Phosphorus 6.20 H (2.5-4.5) mg/dL Prealbumin 0.050 L (0.200-0.400) g/L Assessment and Plan - Patient Problems (1) Abdominal distention Current Visit: No Status: Acute Plan to address problem: Status post laparotomy and toileting of peritoneum secondary to leakage of PEG tube. Continue wound VAC in place for suction (2) Free intraperitoneal air Current Visit: No Status: Acute Plan to address problem: Status post laparotomy, continue to monitor closely IV antibiotics as ordered (3) Hypernatremia Current Visit: No Status: Acute Plan to address problem: Continue hydration monitor electrolytes and replace as necessary (4) Acute renal failure due to tubular necrosis Current Visit: No Status: Acute (5) Anemia Current Visit: No Status: Acute Qualifiers: Chronic kidney disease stage: stage 2 (mild)
[2017-09-13] MEDS: NACL 0.9% 1000 ML 1,000 ML IV SCH ×2 (13:28→21:25)
--- NOTE | 2017-09-13 13:59 | Consultation ---
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, b/l iliac angio and external iliac stent) Social history: smoking, alcohol abuse Family history: no significant family history Medications and Allergies Allergies Allergy/AdvReac Type Severity Reaction Status Date / Time Sulfa (Sulfonamide Allergy rash, Verified 08/05/17 10:59 Antibiotics) swelling Home Medications Medication Instructions Recorded Confirmed Last Taken Type Amlodipine Besylate [Norvasc] 10 mg PO DAILY 05/05/17 09/01/17 08/11/17 05:30 History Aspirin [Lo-Dose Aspirin EC] 81 mg PO DAILY 05/05/17 09/01/17 08/11/17 05:30 History Cilostazol [Pletal] 100 mg PO BID 05/05/17 09/01/17 08/11/17 05:30 History Diclofenac Sodium 75 mg PO DAILY 05/05/17 09/01/17 08/11/17 05:30 History Labetalol HCl 300 mg PO TID 05/05/17 09/01/17 08/11/17 05:30 History PARoxetine [Paxil] 20 mg PO DAILY 05/05/17 09/01/17 08/11/17 05:30 History Valsartan-Hctz 320-25 mg Tab 1 tab PO DAILY 05/05/17 09/01/17 08/11/17 05:30 History metFORMIN [Glucophage] 500 mg PO BID 05/05/17 09/01/17 08/10/17 History HYDROcodone/APAP 7.5-325 [[place] 1 each PO Q6HR PRN #20 tablet 05/12/17 09/01/17 Unknown Rx 7.5-325 mg TAB] Active Meds: Active Medications Acetaminophen (Tylenol) 650 mg PO Q4H PRN PRN Reason: Pain MILD(1-3)/Fever >100.5/BELLAMY Dextrose (D50w (25gm) Syringe) 50 ml IV PRN PRN PRN Reason: Hypoglycemia Fentanyl (Sublimaze) 50 mcg IV Q2H PRN PRN Reason: Pain Heparin Sodium (Porcine) (Heparin) 5,000 unit SUB-Q Q8HR [facility] Last Admin: 09/13/17 13:27 Dose: 5,000 unit Hydrophilic Ointment (Vaseline Lip Therapy) 1 applic TP Q2H PRN PRN Reason: Dry Lips Sodium Chloride (Nacl 0.9% 1000 Ml) 1,000 mls @ 125 mls/hr IV DIRECT [facility] Last Admin: 09/13/17 13:28 Dose: 125 mls/hr Metronidazole (Flagyl 500 Mg/100 Ml) 500 mg in 100 mls @ 100 mls/hr IV Q8HR [facility] Last Admin: 09/13/17 13:27 Dose: 100 mls/hr Norepinephrine (Levophed Drip 4 Mg/Ns 250 Ml) 4 mg in 250 mls @ 7.5 mls/hr IV TITR [facility]; Protocol Last Titration: 09/13/17 11:09 Dose: Infused Vasopressin 20 unit/ Sodium (Chloride) 101 mls @ 9.09 mls/hr IV TITR [facility]; Protocol Last Admin: 09/13/17 00:48 Dose: 0.03 units/min, 9.09 mls/hr Levofloxacin/Dextrose (Levaquin 500mg/100ml) 500 mg in 100 mls @ 100 mls/hr IV Q48HR [facility]; Protocol Amino Acids/Electrolytes/Dextrose (Tpn Adult) 2,400 mls @ 100 mls/hr IV DAILY@ 2000 [facility]; Protocol Stop: 09/14/17 19:59 Insulin Human Lispro (Humalog) 0 unit SUB-Q Q6HR [facility]; Protocol Last Admin: 09/13/17 11:15 Dose: Not Given Lorazepam (Ativan) 2 mg IV Q4H PRN PRN Reason: Moderate Agitation Multi-Ingred Cream/Lotion/Oil/Oint (Artificial Tears Ophth Oint) 1 applic OU Q4H PRN PRN Reason: Dry Eye(s) Naloxone HCl (Narcan 0.4 Mg/1 Ml) 0.1 mg IV Q2MIN PRN PRN Reason: Res Rate </= 8 or 02 SAT < 92% Pantoprazole Sodium (Protonix) 40 mg IV QDAY [facility] Last Admin: 09/13/17 09:00 Dose: 40 mg Sodium Chloride (Sodium Chloride Flush Syringe 10 Ml) 10 ml IV BID [facility] Last Admin: 09/13/17 09:00 Dose: 10 ml Sodium Chloride (Sodium Chloride Flush Syringe 10 Ml) 10 ml IV PRN PRN PRN Reason: LINE FLUSH Sodium Chloride (Nacl 0.9% 500 Ml) 5 ml IV 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 Vital signs: Vital Signs Pulse BP Pulse Ox 124 H 116/71 100 09/12/17 23:00 09/12/17 23:00 09/12/17 23:00 Results - Laboratory Findings CBC and BMP: 09/13/17 05:20 09/13/17 05:20 ABG POC ABG pH 7.280 (7.35-7.45) L 09/13/17 03:08 POC ABG pCO2 46.4 (35-45) H 09/13/17 03:08 POC ABG pO2 110 (80-105) H 09/13/17 03:08 POC ABG HCO3 21.8 09/13/17 03:08 POC ABG Total CO2 23 09/13/17 03:08 POC ABG O2 Sat 98 09/13/17 03:08 Abnormal lab findings: Abnormal Labs 09/12/17 09/13/17 09/13/17 22:56 03:08 05:20 RBC 3.60 L Hgb 11.5 L Hct 34.4 L MCV 95 H RDW 19.8 H Plt Count 83 L Lymphocytes % (Manual) 11.0 L Lymphocytes # (Manual) 0.7 L POC ABG pH 7.280 L POC ABG pCO2 46.4 H POC ABG pO2 110 H Potassium Chloride Carbon Dioxide BUN Creatinine POC Glucose 135 H Calcium Phosphorus Prealbumin 09/13/17 05:20 RBC Hgb Hct MCV RDW Plt Count Lymphocytes % (Manual) Lymphocytes # (Manual) POC ABG pH POC ABG pCO2 POC ABG pO2 Potassium 5.2 H Chloride 109.6 H Carbon Dioxide 20 L BUN 54 H Creatinine 2.3 H POC Glucose Calcium 7.8 L Phosphorus 6.20 H Prealbumin 0.050 L
--- NOTE | 2017-09-13 14:39 | Progress Note ---
Assessment and Plan 66-year-old male s/p Exploratory laparotomy, repair of gastrotomy, removal of PEG tube, peritoneal lavage, temporary closure of abdomen with Abthera Vac. POD 1 1. septic shock 2. dislodged PEG tube 3. intraabdominal infection 4. WILLIAM Plan: 1. neuro - prn versed and fentanyl IV 2. CV - afib in OR, new for patient. Recommend cardiology consult. On pressors: levo off, still on vaso. Continue to wean pressors as tolerated. DVT ppx 3. Resp: vent management per CCU team 4. GI: NPO, IVF, NGT to LCWS. Abthera to -125mmHG suction 5. : barrientos for strict I/Os. 6. Endo: accuchecks q6, ISS. 7. ID: c/w abx - levaquin, flagyl, diflucan IV 8. FEN: BMP in am. replace lytes as needed. c/w NPO. Nutrition c/s ordered to resume TPN Once BP stabilized off pressors, will return to OR for washout of abdomen, placement of feeding tube, and definitive closure of abdomen. Likely in the next 24 -48 hours. Thank you for this consultation, please call with questions or concerns. Subjective Date of service: 09/13/17 Narrative: Patient seen and examined. He is awake on the ventilator and responsive to questions. He denies pain. No fevers, chills overnight. Per nursing, the patient did pull off his abdominal wound VAC and disrupt the outermost layer, which was replaced by her. IVF not running overnight despite order. Nursing made aware. Objective Vital Signs - 12hr 09/13/17 09/13/17 09/13/17 02:46 03:00 03:16 Temperature Pulse Rate 122 H 115 H 107 H Pulse Rate [ Right Dorsalis Pedis] Respiratory 22 20 19 Rate Blood Pressure 122/67 124/73 124/73 O2 Sat by Pulse 99 98 98 Oximetry 09/13/17 09/13/17 09/13/17 03:30 03:46 04:00 Temperature 99.0 F Pulse Rate 113 H 122 H 98 H Pulse Rate [ Right Dorsalis Pedis] Respiratory 22 24 23 Rate Blood Pressure 124/73 124/73 123/71 O2 Sat by Pulse 98 96 97 Oximetry 09/13/17 09/13/17 09/13/17 04:16 04:30 04:46 Temperature Pulse Rate 100 H 112 H 109 H Pulse Rate [ Right Dorsalis Pedis] Respiratory 20 20 21 Rate Blood Pressure 123/71 123/71 123/71 O2 Sat by Pulse 99 99 99 Oximetry 18 0520/18 0518 05:00 05:16 05:30 Temperature Pulse Rate 133 H 109 H 110 H Pulse Rate [ Right Dorsalis Pedis] Respiratory 26 H 19 19 Rate Blood Pressure 127/73 123/71 123/71 O2 Sat by Pulse 98 99 99 Oximetry 09/13/17 05/20/18 05/18 05:46 06:00 06:16 Temperature Pulse Rate 115 H 123 H 115 H Pulse Rate [ Right Dorsalis Pedis] Respiratory 18 24 22 Rate Blood Pressure 127/73 142/65 142/65 O2 Sat by Pulse 99 99 98 Oximetry 09/13/17 0518 05 06:30 06:46 07:00 Temperature Pulse Rate 109 H 128 H 138 H Pulse Rate [ Right Dorsalis Pedis] Respiratory 22 26 H 25 H Rate Blood Pressure 142/65 142/65 142/65 O2 Sat by Pulse 98 98 97 Oximetry 09/13/17 05/18 05 07:15 07:16 07:30 Temperature Pulse Rate 117 H 128 H 119 H Pulse Rate [ Right Dorsalis Pedis] Respiratory 28 H 20 Rate Blood Pressure 95/45 126/57 126/57 O2 Sat by Pulse 96 97 97 Oximetry 09/13/1718 05 07:42 07:46 08:00 Temperature 99.0 F Pulse Rate 116 H 116 H Pulse Rate [ 117 H Right Dorsalis Pedis] Respiratory 22 26 H 23 Rate Blood Pressure 126/57 127/56 O2 Sat by Pulse 97 97 97 Oximetry 18 0520/18 05 08:16 08:30 08:46 Temperature Pulse Rate 126 H 120 H 115 H Pulse Rate [ Right Dorsalis Pedis] Respiratory 25 H 25 H 26 H Rate Blood Pressure 127/56 127/56 127/56 O2 Sat by Pulse 97 96 97 Oximetry 09/13/17 0518 05 09:00 09:14 09:16 Temperature Pulse Rate 116 H 119 H 126 H Pulse Rate [ Right Dorsalis Pedis] Respiratory 22 28 H Rate Blood Pressure 127/56 120/55 O2 Sat by Pulse 97 97 Oximetry 09/13/17 09/13/17 09/13/17 09:30 09:46 10:00 Temperature Pulse Rate 139 H 121 H 143 H Pulse Rate [ Right Dorsalis Pedis] Respiratory 26 H 26 H 13 Rate Blood Pressure 104/61 104/61 104/61 O2 Sat by Pulse 97 96 98 Oximetry 09/13/17 09/13/17 09/13/17 10:16 10:30 10:46 Temperature Pulse Rate 128 H Pulse Rate [ Right Dorsalis Pedis] Respiratory 28 H Rate Blood Pressure 104/63 104/63 104/63 O2 Sat by Pulse 97 96 Oximetry 09/13/17 09/13/17 09/13/17 11:00 11:16 11:18 Temperature 99.2 F Pulse Rate 133 H 130 H Pulse Rate [ Right Dorsalis Pedis] Respiratory 22 17 Rate Blood Pressure 104/63 106/60 O2 Sat by Pulse 96 95 Oximetry 09/13/17 09/13/17 09/13/17 11:19 11:30 11:46 Temperature Pulse Rate 132 H 116 H Pulse Rate [ 127 H Right Dorsalis Pedis] Respiratory 19 9 L 23 Rate Blood Pressure 106/60 99/65 O2 Sat by Pulse 95 97 98 Oximetry 09/13/17 09/13/17 09/13/17 12:00 12:16 12:30 Temperature Pulse Rate 124 H 119 H Pulse Rate [ Right Dorsalis Pedis] Respiratory 22 20 Rate Blood Pressure 99/65 98/53 103/61 O2 Sat by Pulse 97 97 98 Oximetry 09/13/17 09/13/17 09/13/17 12:45 13:00 13:16 Temperature Pulse Rate 118 H 121 H 124 H Pulse Rate [ Right Dorsalis Pedis] Respiratory 21 25 H 25 H Rate Blood Pressure 106/59 105/52 104/56 O2 Sat by Pulse 97 97 97 Oximetry 09/13/17 09/13/17 09/13/17 13:30 13:46 14:00 Temperature Pulse Rate 121 H 110 H 116 H Pulse Rate [ Right Dorsalis Pedis] Respiratory 20 23 23 Rate Blood Pressure 119/67 110/15 118/57 O2 Sat by Pulse 98 98 98 Oximetry - General physical appearance Narrative Exam: General: Awake, alert on vent. Answers yes and no questions appropriately. No apparent distress ENT: Tracheostomy tube in place, site clean, dry, and intact. NG tube on suction with bilious drainage CV: S1, S2 present. Tachycardic Respiratory: Clear to auscultation bilaterally, no wheezes, rales, rhonchi Abdomen: Soft, nontender, nondistended. Abdominal wound VAC in place. The seal was intact. There is no leak. There is serous drainage in the tubing and canister. Extremities: Pedal edema : Barrientos catheter - Labs 09/13/17 05:20 09/13/17 05:20 Diabetes panel 09/13/17 Range/Units 05:20 Sodium 143 (137-145) mmol/L Potassium 5.2 H (3.6-5.0) mmol/L Chloride 109.6 H (98-107) mmol/L Carbon Dioxide 20 L (22-30) mmol/L BUN 54 H (9-20) mg/dL Creatinine 2.3 H (0.8-1.5) mg/dL Glucose 76 (75-100) mg/dL Calcium 7.8 L (8.4-10.2) mg/dL Calcium panel 09/13/17 Range/Units 05:20 Calcium 7.8 L (8.4-10.2) mg/dL Phosphorus 6.20 H (2.5-4.5) mg/dL Pituitary panel 09/13/17 Range/Units 05:20 Sodium 143 (137-145) mmol/L Potassium 5.2 H (3.6-5.0) mmol/L Chloride 109.6 H (98-107) mmol/L Carbon Dioxide 20 L (22-30) mmol/L BUN 54 H (9-20) mg/dL Creatinine 2.3 H (0.8-1.5) mg/dL Glucose 76 (75-100) mg/dL Calcium 7.8 L (8.4-10.2) mg/dL Adrenal panel 09/13/17 Range/Units 05:20 Sodium 143 (137-145) mmol/L Potassium 5.2 H (3.6-5.0) mmol/L Chloride 109.6 H (98-107) mmol/L Carbon Dioxide 20 L (22-30) mmol/L BUN 54 H (9-20) mg/dL Creatinine 2.3 H (0.8-1.5) mg/dL Glucose 76 (75-100) mg/dL Calcium 7.8 L (8.4-10.2) mg/dL
--- NOTE | 2017-09-13 14:55 | Consultation ---
History of Present Illness - Reason for Consult Consult date: 09/13/17 acute renal failure Requesting physician: ZELALEM BATRES - History of Present Illness 66-year-old male who is known to me from recent hospitalizations for elective right femoral arthrectomy and patch angioplasty with bilateral femoral right iliac stent placement for claudication in July 2017. Postoperatively, patient developed hypotension and retroperitoneal hemorrhage secondary to Femoral and external iliac pseudoaneurysm. He received massive transfusion and developed multi-system organ failure. He was unable to wean off the ventilator and so tracheostomy and PEG tube were placed and patient transferred to LTAC on August 14. Patient developed progressive abdominal distention in LTAC on August [address] of the abdomen showed extensive pneumoperitoneum. He was hypotensive and so was transferred back to [facility] to the ICU. He was started on antibiotics for presumed sepsis. CT scan showed extensive pneumoperitoneum. Patient was seen by surgeon and at that time was stable and pneumoperitoneum was felt to be secondary to recent PEG tube placement. BUN/Creatinine were 51/1.6mg/dl then. He was stable and was transferred back to LTAC. Tube feeds were on hold for sometime and was restarted about 2 days ago at [facility]. Patient developed abdominal distention and subsequently abdominal pain and then altered mental status and became unresponsive and hypotensive and so was started on Levophed. CT scan of the abdomen showing new pneumoperitoneum and PEG tube bumper outside stomach. Patient is now on Levophed 2 mcg/min and vasopressin 0.03 units per hour in ICU and BUN/ creatinine are worse at 54/2.3 mg/dL with potassium of 5.2 mmol per liter. I am consulted to assist in managing renal failure and the electrolyte abnormalities. Past History Past Medical History: CAD, diabetes, hypertension, hyperlipidemia, other Past Surgical History: Other (Trach/PEG, [employer] endarterectomy, b/l iliac angio and external iliac stent) Social history: smoking, alcohol abuse Family history: no significant family history Medications and Allergies Allergies Allergy/AdvReac Type Severity Reaction Status Date / Time Sulfa (Sulfonamide Allergy rash, Verified 08/05/17 10:59 Antibiotics) swelling Home Medications Medication Instructions Recorded Confirmed Last Taken Type Amlodipine Besylate [Norvasc] 10 mg PO DAILY 05/05/17 09/01/17 08/11/17 05:30 History Aspirin [Lo-Dose Aspirin EC] 81 mg PO DAILY 05/05/17 09/01/17 08/11/17 05:30 History Cilostazol [Pletal] 100 mg PO BID 05/05/17 09/01/17 08/11/17 05:30 History Diclofenac Sodium 75 mg PO DAILY 05/05/17 09/01/17 08/11/17 05:30 History Labetalol HCl 300 mg PO TID 05/05/17 09/01/17 08/11/17 05:30 History PARoxetine [Paxil] 20 mg PO DAILY 05/05/17 09/01/17 08/11/17 05:30 History Valsartan-Hctz 320-25 mg Tab 1 tab PO DAILY 05/05/17 09/01/17 08/11/17 05:30 History metFORMIN [Glucophage] 500 mg PO BID 05/05/17 09/01/17 08/10/17 History HYDROcodone/APAP 7.5-325 [[place] 1 each PO Q6HR PRN #20 tablet 05/12/17 09/01/17 Unknown Rx 7.5-325 mg TAB] Active Meds: Active Medications Acetaminophen (Tylenol) 650 mg PO Q4H PRN PRN Reason: Pain MILD(1-3)/Fever >100.5/BELLAMY Albuterol/Ipratropium (Duoneb *Not For Prn Use*) 1 ampul IH Q8HRT [facility] Arformoterol Tartrate (Brovana Nebu) 15 mcg IH Q12HRT [facility] Budesonide (Pulmicort) 0.5 mg IH Q12HRT [facility] Dextrose (D50w (25gm) Syringe) 50 ml IV PRN PRN PRN Reason: Hypoglycemia Fentanyl (Sublimaze) 50 mcg IV Q2H PRN PRN Reason: Pain Heparin Sodium (Porcine) (Heparin) 5,000 unit SUB-Q Q8HR [facility] Last Admin: 09/13/17 13:27 Dose: 5,000 unit Hydrophilic Ointment (Vaseline Lip Therapy) 1 applic TP Q2H PRN PRN Reason: Dry Lips Sodium Chloride (Nacl 0.9% 1000 Ml) 1,000 mls @ 125 mls/hr IV DIRECT [facility] Last Admin: 09/13/17 13:28 Dose: 125 mls/hr Metronidazole (Flagyl 500 Mg/100 Ml) 500 mg in 100 mls @ 100 mls/hr IV Q8HR [facility] Last Admin: 09/13/17 13:27 Dose: 100 mls/hr Norepinephrine (Levophed Drip 4 Mg/Ns 250 Ml) 4 mg in 250 mls @ 7.5 mls/hr IV TITR [facility]; Protocol Last Titration: 09/13/17 11:09 Dose: Infused Vasopressin 20 unit/ Sodium (Chloride) 101 mls @ 9.09 mls/hr IV TITR [facility]; Protocol Last Admin: 09/13/17 00:48 Dose: 0.03 units/min, 9.09 mls/hr Levofloxacin/Dextrose (Levaquin 500mg/100ml) 500 mg in 100 mls @ 100 mls/hr IV Q48HR [facility]; Protocol Amino Acids/Electrolytes/Dextrose (Tpn Adult) 2,400 mls @ 100 mls/hr IV DAILY@ 2000 [facility]; Protocol Stop: 09/14/17 19:59 Fluconazole (Diflucan) 200 mls @ 100 mls/hr IV Q24HR [facility]; Protocol Insulin Human Lispro (Humalog) 0 unit SUB-Q Q6HR [facility]; Protocol Last Admin: 09/13/17 11:15 Dose: Not Given Lorazepam (Ativan) 2 mg IV Q4H PRN PRN Reason: Moderate Agitation Multi-Ingred Cream/Lotion/Oil/Oint (Artificial Tears Ophth Oint) 1 applic OU Q4H PRN PRN Reason: Dry Eye(s) Naloxone HCl (Narcan 0.4 Mg/1 Ml) 0.1 mg IV Q2MIN PRN PRN Reason: Res Rate </= 8 or 02 SAT < 92% Pantoprazole Sodium (Protonix) 40 mg IV QDAY [facility] Last Admin: 09/13/17 09:00 Dose: 40 mg Sodium Chloride (Sodium Chloride Flush Syringe 10 Ml) 10 ml IV BID [facility] Last Admin: 09/13/17 09:00 Dose: 10 ml Sodium Chloride (Sodium Chloride Flush Syringe 10 Ml) 10 ml IV PRN PRN PRN Reason: LINE FLUSH Sodium Chloride (Nacl 0.9% 500 Ml) 5 ml IV DIRECT PRN 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 Review of Systems ROS unobtainable: due to endotracheal tube Exam - Vital Signs Vital signs: Vital Signs Pulse BP Pulse Ox 124 H 116/71 100 09/12/17 23:00 09/12/17 23:00 09/12/17 23:00 - Physical Exam Narrative exam: Middle-aged female lying in bed in no acute distress HEENT: NCAT, pink clear oropharynx Neck: Supple, no venous distention, trach intact on ventilator CVS: S1S2 RRR with no murmur, rub or gallop Chest: Good chest expansion, fair trunk are bilaterally Abdomen: Protuberant, soft, tender, bowel sounds diminished, wound VAC intact in Mid-abdomen no organomegaly, bowel sounds are diminished Extremities: Mild edema, heel protectors intact, Skin: warm and dry Genitourinary deferred, Medina catheter draining clear urine Neuro: Awake, alert no focal deficits Results - Lab Results 09/13/17 05:20 09/13/17 05:20 Most recent lab results Calcium 7.8 mg/dL (8.4-10.2) L 09/13/17 05:20 Phosphorus 6.20 mg/dL (2.5-4.5) H 09/13/17 05:20 Magnesium 2.00 mg/dL (1.7-2.3) 09/13/17 05:20 Assessment and Plan - Patient Problems (1) Acute renal failure due to tubular necrosis Current Visit: No Status: Acute Plan to address problem: Acute tubular necrosis secondary to hypotension/sepsis. Continue volume resuscitation. Get urine studies. Follow-up electrolytes and renal function. Unfortunately if continues to worsen, will need to temporarily do dialysis. (2) Severe sepsis with septic shock Current Visit: Yes Status: Acute Plan to address problem: Continue volume resuscitation, antibiotics, vasopressors and wean to a mean arterial pressure more than 65 mmHg.Follow up Cultures (3) Hyperkalemia Current Visit: Yes Status: Acute Plan to address problem: Mild hyperkalemia. Continue resuscitation and follow potassium (4) Acute respiratory failure with hypoxia Current Visit: Yes Status: Acute Plan to address problem: Ventilator management by pulmonary (5) Peritonitis Current Visit: Yes Status: Acute Plan to address problem: Continue antibiotics.
[2017-09-13] MEDS ORDERED: DIFLUCAN 200 ML IV SCH (15:00)
[2017-09-13] MEDS: DUONEB *Not for PRN Use IH SCH (15:24)
[2017-09-13 15:45] LABS: Bacteria,Urine 2+ /HPF (Negative); Bilirubin,Urine NEG (Negative); Blood,Urine LG (Negative); Color,Urine Amber (Yellow); Mucus,Urine 1+ /HPF
[2017-09-13 16:00] LABS: Creatinine,Urine 180.6 mg/dL (0.1-20.0)
[2017-09-13] MEDS ORDERED: TPN ADULT 2,400 ML IV SCH (20:00)
[2017-09-13] MEDS: BROVANA NEBU IH SCH (20:29)
[2017-09-13] MEDS: PULMICORT IH SCH (20:29)
[2017-09-13] MEDS: DIFLUCAN 200 MG/100 ML BAG IV SCH (21:25)
[2017-09-14] MEDS: DUONEB *Not for PRN Use IH SCH ×4 (00:12→23:52)
[2017-09-14] MEDS: HumaLOG SUB-Q SCH ×4 (00:47→19:17)
[2017-09-14] MEDS: Vasostrict 20 UNIT in NACL 0.9% 100 ML IV SCH (01:07)
[2017-09-14] MEDS: FLAGYL 500 MG/100 ML 500 MG/100 ML BAG IV SCH ×3 (05:24→21:29)
[2017-09-14] MEDS: HEPARIN SUB-Q SCH ×3 (05:24→21:28)
[2017-09-14 05:51] LABS: Albumin 1.8 g/dL (3.9-5); Calcium 7.3 mg/dL (8.4-10.2)
--- NOTE | 2017-09-14 06:28 | Consultation ---
PULMONARY CRITICAL CARE CONSULTATION NOTE CONSULTING PHYSICIAN: ____. REASON FOR CONSULTATION: Severe sepsis, [id number] hypoxemic respiratory failure. CHIEF COMPLAINT AND HISTORY OF PRESENT ILLNESS: The patient is a now 66-year-old male initially hospitalized for right femoral endarterectomy. He suffered significant postop hemorrhage required massive transfusion protocol. Ultimately, he was ventilator dependent. He suffered acute kidney injury requiring dialysis for a few weeks. He received a tracheostomy tube. He was transferred to the [facility] where he developed an extensive pneumoperitoneum with sepsis and shock, was brought back into the Intensive Care Unit on 08/31/2017, stabilized, it was felt to be due to a dislodged PEG and was transferred back to the long-term acute care facility. Yesterday, I had seen him at the [facility]. He was very tachycardic. He looked septic. He was hypotensive. He had firm abdominal distention. NG tube was placed and we began to see coffee ground type effluence, a stat CT of the abdomen and pelvis ultimately revealed that the PEG tube was riding free in the peritoneal cavity and unfortunately he had been receiving some tube feeds. He was taken to the OR emergently, he was cleaned out, brought into the Intensive Care Unit. When I stopped by to see him, he is alert. He has always had a mild cognitive dysfunction, but follows some simple commands. Denies any acute pain. He remained on a Levophed drip and a vasopressin drip and on the mechanical ventilator now requiring increasing oxygen needs, FiO2 of 0.7. This really is as much of the history of presentation that I do have. He does have a 20+ pack year tobacco smoking history. PAST MEDICAL HISTORY: Coronary artery disease, peripheral vascular disease, diabetes, hypertension, alcohol abuse, acute respiratory failure, likely chronic obstructive lung disease and oropharyngeal dysphagia. PAST SURGICAL HISTORY: Status post tracheostomy, status post percutaneous endoscopic gastrostomy tube placement and status post exploratory laparotomy with peritoneal washout. MEDICATIONS: He was on at the time I stopped by to see him were reviewed, pertinent medications included the following: P.r.n. Tylenol. He is on TPN. He has got fentanyl 50 mcg IV q. 2 hours p.r.n. pain. He is on heparin 5000 units subcutaneous q. 8 hours, insulin via sliding scale, Levaquin 500 mg IV q. 48 hours, p.r.n. Ativan for agitation. He is on metronidazole that is 500 mg IV q. 8 hours. A Levophed drip was at 6 mcg per minute. He was also on vasopressin drip, I believe at 0.03 units per minute. Also, on Protonix 40 mg IV daily. ALLERGIES: SULFA DRUGS, nature of this allergy is unknown. DIET: Obese gentleman. He has lost some weight during this hospitalization about 10-15 pounds in my opinion. Nutritionally challenge, now on TPN for a few days. FAMILY AND SOCIAL HISTORY: The patient lived in the community prior to this admission. Good family support. He is , 20+ pack year tobacco smoking history as well as a history of alcohol abuse. They deny illicit drug use or abuse. REVIEW OF SYSTEMS: Really mostly unobtainable secondary to the patient's medical and mental condition. Since he has been back here, no gross hematochezia or melena, no gross hematuria, no hematemesis, no bloody tracheal secretions, no seizures. Review of systems is otherwise unobtainable. PHYSICAL EXAMINATION: VITAL SIGNS: On examination review of the vital signs at presentation, he was afebrile, temperature 98.8 degrees Fahrenheit with a pulse of 124, respiratory rate of 18, blood pressure 116/71, O2 sats were 98%; however, he was on 70% FiO2, assist control mode of ventilation, tidal volume 450, rate of 25, PEEP of 5. GENERAL: Elderly looking male, looks his stated age, normocephalic, atraumatic and with mildly increased work of breathing on the mechanical ventilator. HEAD, EYES, EARS, NOSE AND THROAT: He remains anicteric. No conjunctival erythema. Midline tracheostomy tube a Shiley #8 is in the neck. Mild exudation around it. No bleeding, no thyromegaly, no gross jugular venous distention. Grossly, no palpable lymph nodes in the supraclavicular or submandibular lymph node chains. LUNGS: Auscultation of both lungs were significant for diminished bilateral breath sounds, but also bilateral rhonchi and prolonged expiratory phase. No active wheezing. HEART: Heart sounds 1 and 2 are heard. It was a regular sinus tachycardia at the time of my evaluation with occasional PVCs. No rubs or murmurs are heard. ABDOMEN: Soft, full, mildly distended. There is a wound VAC in place in the midline around the site of the prior PEG insertion. Bowel sounds are positive, but hyperactive. No palpable hepatosplenomegaly. No significant bleeding or exudation. EXTREMITIES: Without overt digital clubbing or cyanosis. Trace pedal edema. Dorsalis pedis pulses were palpable, but weak bilaterally. NEUROLOGIC: Pupils are equal, round, about 3-4 mm, reactive to light. Extraocular muscles and movements appeared intact. He moves all 4 extremities spontaneously. SKIN: Poor turgor without overt cellulitis or decubitus ulcer. LABORATORY DATA: From my review are as follows: White count 6700, hemoglobin 11.5, hematocrit 34.4, platelet count 83. No band forms reported. Arterial blood gas showed a pH of 7.28, pCO2 of 46, pO2 of 110 that was on the above-mentioned vent settings. Serum sodium 143, potassium 5.2, chloride 110, bicarbonate 20, BUN 54, creatinine 2.3 and a glucose of 76, magnesium within normal limits. Prealbumin low at 0.05. Tracheal aspirate is pending. I do not have any blood cultures. IMAGING DATA: Chest x-ray has been reviewed. I have also reviewed the radiologist's interpretation. Essentially, [id number] volume overload part and he does have a right PICC line with the tip in the distal SVC. He has gross cardiomegaly. He has median sternotomy wires, no gross pneumothorax, no gross bony fracture. ASSESSMENT AND PLAN: 1. Grlmn-if-osfoekh hypoxemic respiratory failure secondary likely to #2. 2. Acute peritonitis, status post dislodged PEG tube. 3. Severe sepsis. 4. Oropharyngeal dysphagia. 5. Acute kidney injury, possibly on chronic. 6. Obesity. 7. Tobacco use disorder. 8. Alcohol abuse. 9. Anemia that is microcytic and multifactorial. 10. Metabolic acidosis. 11. Hyperkalemia. 12. Adult failure to thrive. PLAN: We will keep him on full mechanical ventilatory support at this time. I will get a lactic acid level as well as a CRP level and make adjustments as necessary. The patient is not really making urine, remains tachycardic, remains septic. We will shoot for conservative volume management strategies ultimately. He is currently being started on I believe normal on saline at 125 per hour. I will cap that at 2 liters and see where we stand after that. He is weaning off his vasopressors. We will target mean arterial pressures of 65 mmHg. Oxygen will be weaned to keep sats greater than or equal to about 90% to 92%. I will increase the positive expiratory pressure to 7 at this point. Lung protective strategies will be targeted. Aspiration precautions. Ventilator-associated pneumonia bundle will be instituted. Daily sedation assessment trials. SVTs, we will begin when his numbers are better. His FiO2 is 40% or less with a PEEP of preferably 5, but we will wean at higher numbers. No acute indication for thoracentesis. I will go ahead and consult the trades helper to be on his case so as to ensure that we do not push him to fluid volume overload. He is going to be started on GI prophylaxis. He is on DVT prophylaxis in the form of SCDs. Flu and pneumonia vaccination will be addressed per protocol. I do appreciate surgical input and management. Hopefully, he continues to show improvement. He remains critically ill at this point and is at higher risk for further deterioration including . At this time, I have spent about 35-40 minutes of critical care time without overlap and excluding any procedural time that may be necessary. JOB# [id number] SHERIE/JOHN JUAN
[2017-09-14] MEDS: BROVANA NEBU IH SCH ×2 (07:47→19:35)
[2017-09-14] MEDS: PULMICORT IH SCH ×2 (07:47→19:35)
[2017-09-14] MEDS: NACL 0.9% 1000 ML 1,000 ML IV SCH (08:29)
--- NOTE | 2017-09-14 08:54 | Progress Note ---
Assessment and Plan - Peritonitis from dislodged PEG tube and sepsis s/p lap with peritoneal lavage adn repair of gastrostomy, removal of PEG tube Continue with iv levquin, Flagyl and diflucan - Abdominal distension from pneumoperitoneum resolved with exploratory lap - Dislodged PEG tube removed at lap On TPN - Acute on chronic respiratory failure On Mechanical ventilation via trach continue with bronchodilator Pulm Following -Acute renal failure due to ATN continu with volume resuscitation - Transaminasemia Will trend. anticipate improvement with iv hydration - Metabolic acidosis from septic shock continue with fluid resuscitation - DVT PPX with lovenox Subjective Date of service: 09/14/17 Principal diagnosis: Septic shock. peritonitis, dislodged PEG tube, WILLIAM Interval history: Pt seen and examined. s/p exploratory lap. Lying quietly in bed. Awake. Discussed with nursing staff. No overnight event reported to me Objective - Constitutional Vitals: Vital Signs - 12hr 09/13/17 09/13/17 09/13/17 21:00 21:15 21:30 Temperature Pulse Rate 115 H 130 H 116 H Pulse Rate [ Anterior Bilateral Throughout] Respiratory 26 H 28 H 18 Rate Respiratory Rate [Anterior Bilateral Throughout] Blood Pressure 122/60 120/63 115/57 O2 Sat by Pulse 98 98 98 Oximetry 09/13/17 09/13/17 09/13/17 21:45 22:00 22:16 Temperature Pulse Rate 125 H 126 H 113 H Pulse Rate [ Anterior Bilateral Throughout] Respiratory 16 21 22 Rate Respiratory Rate [Anterior Bilateral Throughout] Blood Pressure 107/55 107/55 96/60 O2 Sat by Pulse 98 98 97 Oximetry 09/13/17 09/13/17 09/13/17 22:30 22:45 23:00 Temperature Pulse Rate 120 H 124 H 118 H Pulse Rate [ Anterior Bilateral Throughout] Respiratory 27 H 15 25 H Rate Respiratory Rate [Anterior Bilateral Throughout] Blood Pressure 98/65 115/67 115/67 O2 Sat by Pulse 97 97 96 Oximetry 09/13/17 09/13/17 09/13/17 23:13 23:15 23:30 Temperature Pulse Rate 130 H 114 H Pulse Rate [ 128 H Anterior Bilateral Throughout] Respiratory 19 28 H Rate Respiratory 96 H Rate [Anterior Bilateral Throughout] Blood Pressure 119/61 126/66 O2 Sat by Pulse 97 96 Oximetry 05/20/18 05/21/18 05/21/18 23:45 00:00 00:13 Temperature 99.8 F H Pulse Rate 118 H 128 H 125 H Pulse Rate [ Anterior Bilateral Throughout] Respiratory 25 H 27 H Rate Respiratory Rate [Anterior Bilateral Throughout] Blood Pressure 113/65 123/52 123/52 O2 Sat by Pulse 96 98 97 Oximetry 09/14/17 09/14/17 09/14/17 00:15 00:30 00:45 Temperature Pulse Rate 121 H 134 H 120 H Pulse Rate [ Anterior Bilateral Throughout] Respiratory 22 24 28 H Rate Respiratory Rate [Anterior Bilateral Throughout] Blood Pressure 110/81 128/72 121/69 O2 Sat by Pulse 95 98 97 Oximetry 09/14/17 09/14/17 09/14/17 01:00 01:15 01:30 Temperature Pulse Rate 116 H 116 H 122 H Pulse Rate [ Anterior Bilateral Throughout] Respiratory 25 H 20 24 Rate Respiratory Rate [Anterior Bilateral Throughout] Blood Pressure 120/60 107/59 118/61 O2 Sat by Pulse 97 97 97 Oximetry 09/14/17 09/14/17 09/14/17 01:45 02:00 02:15 Temperature Pulse Rate 126 H 127 H 112 H Pulse Rate [ Anterior Bilateral Throughout] Respiratory 22 19 25 H Rate Respiratory Rate [Anterior Bilateral Throughout] Blood Pressure 119/60 118/62 115/58 O2 Sat by Pulse 97 97 95 Oximetry 09/14/17 09/14/17 09/14/17 02:31 02:45 03:00 Temperature Pulse Rate 117 H 115 H 117 H Pulse Rate [ Anterior Bilateral Throughout] Respiratory 15 16 25 H Rate Respiratory Rate [Anterior Bilateral Throughout] Blood Pressure 123/64 125/69 121/68 O2 Sat by Pulse 97 98 96 Oximetry 09/14/17 09/14/17 09/14/17 03:15 03:16 03:30 Temperature Pulse Rate 112 H 126 H 107 H Pulse Rate [ Anterior Bilateral Throughout] Respiratory 20 18 Rate Respiratory Rate [Anterior Bilateral Throughout] Blood Pressure 125/61 121/68 116/59 O2 Sat by Pulse 98 98 97 Oximetry 09/14/17 09/14/17 09/14/17 03:45 04:00 04:01 Temperature 99.3 F Pulse Rate 118 H 111 H Pulse Rate [ Anterior Bilateral Throughout] Respiratory 19 20 Rate Respiratory Rate [Anterior Bilateral Throughout] Blood Pressure 118/57 124/60 O2 Sat by Pulse 97 99 97 Oximetry 09/14/17 09/14/1709/14/18 04:15 04:31 04:45 Temperature Pulse Rate 109 H 120 H 107 H Pulse Rate [ Anterior Bilateral Throughout] Respiratory 18 24 27 H Rate Respiratory Rate [Anterior Bilateral Throughout] Blood Pressure 110/71 113/72 114/62 O2 Sat by Pulse 96 97 97 Oximetry 09/14/17 09/14/17 09/14/17 05:00 05:15 05:30 Temperature Pulse Rate 118 H 106 H 119 H Pulse Rate [ Anterior Bilateral Throughout] Respiratory 21 26 H 19 Rate Respiratory Rate [Anterior Bilateral Throughout] Blood Pressure 120/71 119/62 112/70 O2 Sat by Pulse 96 98 97 Oximetry 09/14/17 09/14/17 09/14/17 05:45 06:01 06:15 Temperature Pulse Rate 105 H 109 H Pulse Rate [ Anterior Bilateral Throughout] Respiratory 26 H 19 Rate Respiratory Rate [Anterior Bilateral Throughout] Blood Pressure 122/56 114/91 116/83 O2 Sat by Pulse 97 95 98 Oximetry 09/14/17 09/14/17 09/14/17 06:30 06:45 07:47 Temperature Pulse Rate 109 H 113 H 102 H Pulse Rate [ 106 H Anterior Bilateral Throughout] Respiratory 10 L 14 Rate Respiratory 24 Rate [Anterior Bilateral Throughout] Blood Pressure 131/63 121/61 124/55 O2 Sat by Pulse 99 99 100 Oximetry General appearance: Present: no acute distress, other (intabed via trach) - EENT Eyes: PERRL, EOM intact Ears: bilateral: normal - Neck Neck: supple, normal ROM - Respiratory Respiratory effort: normal Respiratory: bilateral: diminished - Cardiovascular Rhythm: regular Heart Sounds: Present: S1 & S2. Absent: gallop, rub Extremities: pulses intact, No edema, normal color, Full ROM - Gastrointestinal General gastrointestinal: Present: soft, non-tender, non-distended, normal bowel sounds, other (wound drain in place) - Integumentary Integumentary: clear, warm, dry - Musculoskeletal Musculoskeletal: generalized weakness - Neurologic Neurologic: moves all extremities - Psychiatric Psychiatric: cooperative - Labs CBC & Chem 7: 09/13/17 05:20 09/14/17 05:15 Labs: Abnormal lab results 09/13/17 09/13/17 09/13/17 Range/Units 14:47 14:47 14:54 POC ABG pH (7.35-7.45) POC ABG pCO2 (35-45) POC ABG pO2 (80-105) Chloride (98-107) mmol/L Carbon Dioxide (22-30) mmol/L BUN (9-20) mg/dL Creatinine (0.8-1.5) mg/dL Glucose (75-100) mg/dL POC Glucose (70-105) Lactic Acid 2.20 H* (0.7-2.0) mmol/L Calcium (8.4-10.2) mg/dL Phosphorus (2.5-4.5) mg/dL Total Bilirubin (0.1-1.2) mg/dL AST (5-40) units/L ALT (7-56) units/L C-Reactive Protein (0.00-1.30) mg/dL Total Protein (6.3-8.2) g/dL Albumin (3.9-5) g/dL Urine WBC (Auto) 30.0 H (0.0-6.0) /HPF Urine Creatinine 180.6 H (0.1-20.0) mg/dL Urine Total Protein 289 H (5-11.8) mg/dL 09/13/17 09/13/17 09/13/17 Range/Units 14:54 17:04 19:40 POC ABG pH (7.35-7.45) POC ABG pCO2 (35-45) POC ABG pO2 (80-105) Chloride (98-107) mmol/L Carbon Dioxide (22-30) mmol/L BUN (9-20) mg/dL Creatinine (0.8-1.5) mg/dL Glucose (75-100) mg/dL POC Glucose 114 H (70-105) Lactic Acid 2.20 H* (0.7-2.0) mmol/L Calcium (8.4-10.2) mg/dL Phosphorus (2.5-4.5) mg/dL Total Bilirubin (0.1-1.2) mg/dL AST (5-40) units/L ALT (7-56) units/L C-Reactive Protein 33.10 H (0.00-1.30) mg/dL Total Protein (6.3-8.2) g/dL Albumin (3.9-5) g/dL Urine WBC (Auto) (0.0-6.0) /HPF Urine Creatinine (0.1-20.0) mg/dL Urine Total Protein (5-11.8) mg/dL 09/13/17 09/14/17 09/14/17 Range/Units 23:49 04:07 05:15 POC ABG pH 7.332 L (7.35-7.45) POC ABG pCO2 34.3 L (35-45) POC ABG pO2 76 L (80-105) Chloride (98-107) mmol/L Carbon Dioxide (22-30) mmol/L BUN (9-20) mg/dL Creatinine (0.8-1.5) mg/dL Glucose (75-100) mg/dL POC Glucose 115 H (70-105) Lactic Acid (0.7-2.0) mmol/L Calcium (8.4-10.2) mg/dL Phosphorus 7.80 H D (2.5-4.5) mg/dL Total Bilirubin (0.1-1.2) mg/dL AST (5-40) units/L ALT (7-56) units/L C-Reactive Protein (0.00-1.30) mg/dL Total Protein (6.3-8.2) g/dL Albumin (3.9-5) g/dL Urine WBC (Auto) (0.0-6.0) /HPF Urine Creatinine (0.1-20.0) mg/dL Urine Total Protein (5-11.8) mg/dL 09/14/17 09/14/17 Range/Units 05:15 05:35 POC ABG pH (7.35-7.45) POC ABG pCO2 (35-45) POC ABG pO2 (80-105) Chloride 107.5 H (98-107) mmol/L Carbon Dioxide 18 L (22-30) mmol/L BUN 77 H (9-20) mg/dL Creatinine 3.0 H (0.8-1.5) mg/dL Glucose 185 H (75-100) mg/dL POC Glucose 196 H (70-105) Lactic Acid (0.7-2.0) mmol/L Calcium 7.3 L (8.4-10.2) mg/dL Phosphorus (2.5-4.5) mg/dL Total Bilirubin 2.50 H (0.1-1.2) mg/dL AST 991 H (5-40) units/L ALT 1757 H (7-56) units/L C-Reactive Protein (0.00-1.30) mg/dL Total Protein 4.1 L (6.3-8.2) g/dL Albumin 1.8 L (3.9-5) g/dL Urine WBC (Auto) (0.0-6.0) /HPF Urine Creatinine (0.1-20.0) mg/dL Urine Total Protein (5-11.8) mg/dL
--- NOTE | 2017-09-14 09:13 | Operative Report ---
Operative Report Operative Report: Date of procedure: 09/12/17 Pre-op diagnosis: pneumoperitoneum, septic shock Post-op diagnosis: same Findings: Free tube feeds in abdomen, PEG tube dislodged from stomach. 3L of intraabdominal TF aspirated Procedure: Exploratory laparotomy, repair of gastrotomy, removal of PEG tube, peritoneal lavage, temporary closure of abdomen with Abthera Vac Anesthesia: AYDEA Surgeon: REHANA MAHMOOD Clerk Secretary: LAUREN SILVEIRA Estimated blood loss: minimal IVF: 400cc Uo: minimal Pathology: none Condition: critical Disposition: PACU (to ICU) HPI an indication: Patient is a 66-year-old male with a complex past medical and surgical history. The patient was admitted to LTAC status post vascular procedures, tracheostomy and PEG tube placement for ventilator-dependent respiratory failure. The patient was noted to have altered mental status and abdominal distention and was sent for CT scan of abdomen and pelvis. This revealed extensive pneumoperitoneum and PEG tube dislodged from the stomach. The patient had been receiving trickle tube feeds for 48 hours. On exam he was hypotensive and tachycardic, unresponsive. The patient was started on pressors , antibiotics for septic shock, and plans made for upgrade to ICU. A discussion was had with his at the bedside and based on his clinical condition and CT findings, it was recommended that the patient be taken to the OR emergently for exlap, possible gastric resection, possible placement of feeding tube. All risks and benefits were discussed with his at the bedside. She is aware that he is unstable, requiring pressors and is at high risk for any surgical intervention which can even lead to . Consent was signed. Procedure in detail: The patient was identified and his bed and LTAC and taken straight down to the operating room. He was placed on the operating room table in supine position. The patient was already on the ventilator via tracheostomy. Once anesthesia was induced, the abdomen and PEG tube was prepped and draped in usual sterile fashion and a timeout was performed. An upper midline incision was made using a 10 blade and dissection carried down with a blade until the fascia was encountered and opened. The peritoneum was grasped and opened with electrocautery and the incision was completed in a cephalad and caudad direction over 2 gloved fingers using electrocautery. Upon initial inspection of the abdomen, there was evidence of gross contamination of the abdominal cavity with tube feeds and a marked inflammatory reaction. The tube feeds were aspirated, and there were approximately 3 L of intra-abdominal tube feeds. The gastrotomy was identified and repaired. First, the unhealthy and inflamed gastric tissue was resected and the 1 cm gastrotomy closed in a 2 layer fashion. A full-thickness running layer was completed using 2-0 silk. A second, seromuscular layer was completed using 2-0 silk interrupted sutures. The abdomen was then copiously irrigated with warm saline. Soft adhesions were broken up in order to evacuate all of the tube feeds and gastric contents. The rest of the abdomen was inspected. On inspection of the gallbladder, there did appear to be some green discoloration of a portion of the gallbladder wall and palpable stones in the gallbladder. The NG tube was palpated and confirmed to be in the stomach. Remainder of the abdomen was unremarkable. Once the abdomen was thoroughly irrigated with warm saline solution, the decision was made to close the abdomen. The patient at this time was being maintained on levothyroid and vasopressin with MAPS in the low 60s. Therefore, it was decided to perform a temporary closure of the abdomen with an Abthera VAC and return to the operating room after maximum resuscitation and stabilization of the patient in order to perform a definitive closure of the abdomen and place a gastrojejunal feeding tube. The Abthera Vac was placed in the usual fashion and placed to suction at -125 mmHg. At the end of the case, all instrument, sharp, sponge counts were correct 2. The patient was taken to the PACU in critical condition. The patient's was updated of his condition.
[2017-09-14] MEDS: PROTONIX IV SCH (09:19)
--- NOTE | 2017-09-14 09:47 | Progress Note ---
Assessment and Plan - Patient Problems (1) Acute renal failure due to tubular necrosis Current Visit: No Status: Acute Plan to address problem: Acute tubular necrosis secondary to hypotension/sepsis. Kidney function still worsening. Continue volume resuscitation. Follow-up electrolytes and renal function. Unfortunately if continues to worsen, will need to at least temporarily do dialysis. (2) Severe sepsis with septic shock Current Visit: Yes Status: Acute Plan to address problem: Continue volume resuscitation, antibiotics, vasopressors and wean to a mean arterial pressure more than 65 mmHg.Follow up Cultures (3) Hyperkalemia Current Visit: Yes Status: Acute Plan to address problem: Potassium is improved. Continue to follow up (4) Acute respiratory failure with hypoxia Current Visit: Yes Status: Acute Plan to address problem: Ventilator management by pulmonary (5) Peritonitis Current Visit: Yes Status: Acute Plan to address problem: Continue antibiotics. Subjective Date of service: 09/14/17 Principal diagnosis: Septic shock. peritonitis, dislodged PEG tube, WILLIAM Interval history: Patient seen lying in bed in ICU. He is intubated on a ventilator but awake and communicating nonverbally. Nurse asked if it is too necessary for patient to have Medina catheter. We will have to review records from LTAC which are not available for review. Apparently it was placed by urologist. Objective - Exam Narrative Exam: Middle-aged female lying in bed in no acute distress HEENT: NCAT, pink clear oropharynx Neck: Supple, no venous distention, trach intact on ventilator CVS: S1S2 RRR with no murmur, rub or gallop Chest: Good chest expansion, fair trunk are bilaterally Abdomen: Protuberant, soft, tender, bowel sounds diminished, wound VAC intact in Mid-abdomen no organomegaly, bowel sounds are diminished Extremities: Mild edema, heel protectors intact, Skin: warm and dry Genitourinary deferred, Medina catheter draining clear urine Neuro: Awake, alert no focal deficits - Vital Signs Vital signs: Vital Signs - 12hr 09/13/17 09/13/17 09/13/17 21:45 22:00 22:16 Temperature Pulse Rate 125 H 126 H 113 H Pulse Rate [ Anterior Bilateral Throughout] Respiratory 16 21 22 Rate Respiratory Rate [Anterior Bilateral Throughout] Blood Pressure 107/55 107/55 96/60 O2 Sat by Pulse 98 98 97 Oximetry 09/13/17 09/13/17 09/13/17 22:30 22:45 23:00 Temperature Pulse Rate 120 H 124 H 118 H Pulse Rate [ Anterior Bilateral Throughout] Respiratory 27 H 15 25 H Rate Respiratory Rate [Anterior Bilateral Throughout] Blood Pressure 98/65 115/67 115/67 O2 Sat by Pulse 97 97 96 Oximetry 09/13/17 09/13/17 09/13/17 23:13 23:15 23:30 Temperature Pulse Rate 130 H 114 H Pulse Rate [ 128 H Anterior Bilateral Throughout] Respiratory 19 28 H Rate Respiratory 96 H Rate [Anterior Bilateral Throughout] Blood Pressure 119/61 126/66 O2 Sat by Pulse 97 96 Oximetry 09/13/17 09/14/17 09/14/17 23:45 00:00 00:13 Temperature 99.8 F H Pulse Rate 118 H 128 H 125 H Pulse Rate [ Anterior Bilateral Throughout] Respiratory 25 H 27 H Rate Respiratory Rate [Anterior Bilateral Throughout] Blood Pressure 113/65 123/52 123/52 O2 Sat by Pulse 96 98 97 Oximetry 09/14/17 09/14/17 09/14/17 00:15 00:30 00:45 Temperature Pulse Rate 121 H 134 H 120 H Pulse Rate [ Anterior Bilateral Throughout] Respiratory 22 24 28 H Rate Respiratory Rate [Anterior Bilateral Throughout] Blood Pressure 110/81 128/72 121/69 O2 Sat by Pulse 95 98 97 Oximetry 09/14/17 09/14/17 09/14/17 01:00 01:15 01:30 Temperature Pulse Rate 116 H 116 H 122 H Pulse Rate [ Anterior Bilateral Throughout] Respiratory 25 H 20 24 Rate Respiratory Rate [Anterior Bilateral Throughout] Blood Pressure 120/60 107/59 118/61 O2 Sat by Pulse 97 97 97 Oximetry 09/14/17 09/14/17 09/14/17 01:45 02:00 02:15 Temperature Pulse Rate 126 H 127 H 112 H Pulse Rate [ Anterior Bilateral Throughout] Respiratory 22 19 25 H Rate Respiratory Rate [Anterior Bilateral Throughout] Blood Pressure 119/60 118/62 115/58 O2 Sat by Pulse 97 97 95 Oximetry 09/14/17 09/14/17 09/14/17 02:31 02:45 03:00 Temperature Pulse Rate 117 H 115 H 117 H Pulse Rate [ Anterior Bilateral Throughout] Respiratory 15 16 25 H Rate Respiratory Rate [Anterior Bilateral Throughout] Blood Pressure 123/64 125/69 121/68 O2 Sat by Pulse 97 98 96 Oximetry 09/14/17 09/14/17 09/14/17 03:15 03:16 03:30 Temperature Pulse Rate 112 H 126 H 107 H Pulse Rate [ Anterior Bilateral Throughout] Respiratory 20 18 Rate Respiratory Rate [Anterior Bilateral Throughout] Blood Pressure 125/61 121/68 116/59 O2 Sat by Pulse 98 98 97 Oximetry 09/14/17 09/14/17 09/14/17 03:45 04:00 04:01 Temperature 99.3 F Pulse Rate 118 H 111 H Pulse Rate [ Anterior Bilateral Throughout] Respiratory 19 20 Rate Respiratory Rate [Anterior Bilateral Throughout] Blood Pressure 118/57 124/60 O2 Sat by Pulse 97 99 97 Oximetry 09/14/17 09/14/17 09/14/17 04:15 04:31 04:45 Temperature Pulse Rate 109 H 120 H 107 H Pulse Rate [ Anterior Bilateral Throughout] Respiratory 18 24 27 H Rate Respiratory Rate [Anterior Bilateral Throughout] Blood Pressure 110/71 113/72 114/62 O2 Sat by Pulse 96 97 97 Oximetry 09/14/17 09/14/17 09/14/17 05:00 05:15 05:30 Temperature Pulse Rate 118 H 106 H 119 H Pulse Rate [ Anterior Bilateral Throughout] Respiratory 21 26 H 19 Rate Respiratory Rate [Anterior Bilateral Throughout] Blood Pressure 120/71 119/62 112/70 O2 Sat by Pulse 96 98 97 Oximetry 09/14/17 09/14/17 09/14/17 05:45 06:01 06:15 Temperature Pulse Rate 105 H 109 H Pulse Rate [ Anterior Bilateral Throughout] Respiratory 26 H 19 Rate Respiratory Rate [Anterior Bilateral Throughout] Blood Pressure 122/56 114/91 116/83 O2 Sat by Pulse 97 95 98 Oximetry 09/14/17 09/14/17 09/14/17 06:30 06:45 07:47 Temperature Pulse Rate 109 H 113 H 102 H Pulse Rate [ 106 H Anterior Bilateral Throughout] Respiratory 10 L 14 Rate Respiratory 24 Rate [Anterior Bilateral Throughout] Blood Pressure 131/63 121/61 124/55 O2 Sat by Pulse 99 99 100 Oximetry - Lab 09/13/17 05:20 09/14/17 05:15 Most recent lab results Calcium 7.3 mg/dL (8.4-10.2) L 09/14/17 05:15 Phosphorus 7.80 mg/dL (2.5-4.5) H D 09/14/17 05:15 Magnesium 2.10 mg/dL (1.7-2.3) 09/14/17 05:15 Urine Creatinine 180.6 mg/dL (0.1-20.0) H 09/13/17 14:47 Urine Sodium 29 mmol/L 09/13/17 14:47 Urine Total Protein 289 mg/dL (5-11.8) H 09/13/17 14:47
[2017-09-14] MEDS: SODIUM CHLORIDE FLUSH SYRINGE 10 ML IV SCH ×2 (10:45→22:00)
--- NOTE | 2017-09-14 12:28 | Progress Note ---
Assessment and Plan [id number] hypoxemic respiratory failure secondary likely to #2. Acute peritonitis, status post dislodged PEG tube. Severe sepsis. Oropharyngeal dysphagia. Acute kidney injury, possibly on chronic. Obesity. Tobacco use disorder. Alcohol abuse. Anemia that is microcytic and multifactorial. Metabolic acidosis. Hyperkalemia. Adult failure to thrive. - continue supplemental oxygen and wean to keep sats > 90% - continue daily SAT's and SBT's - increased Peep to 7 - continue enteral nutrition - continue to address VAP bundle daily - continue antibiotics and de-escalate per ID recs - remains off vasopressors - azotemia per nephrology (consult placed) - continue SCD's - continue agitation and analgesia management while avoiding benzodiazepines - Avoid nephrotoxic agents - tentatively back to OR soon for PEG replacement - case discussed at length in team rounds and care plan formulated - continue other care per attending / other consultants .... re-evaluate in am & prn The high probability of a clinically significant, sudden or life threatening deterioration of the [cardiac, Renal, Respiratory, neurological] system(s) required my full and direct attention, intervention and personal management. The aggregate critical care time was [30] minutes without overlap. Time includes spent on; [x] Data Review and interpretation [x] Patient assessment and monitoring of vital signs [x] Documentation [x] Medication orders and management Subjective Date of service: 09/14/17 Principal diagnosis: Septic shock. peritonitis, dislodged PEG tube, WILLIAM Interval history: Patient is seen today for: Acute Hypoxemic Respiratory Failure; Hemorrhagic Shock; WILLIAM on Dilaysis;PVD Seen and examined at bedside; 24 hour events reviewed; nursing and respiratory care staff consulted; resting peacefully in bed; remains on MVS; no emesis or overt aspiration; resting peacefully; FiO2 at 60% still; denies acute chest pains; mild cognitive dysfunction / dementia persist's Objective Vital Signs - 12hr 09/14/17 09/14/17 09/14/17 00:30 00:45 01:00 Temperature Pulse Rate 134 H 120 H 116 H Pulse Rate [ Anterior Bilateral Throughout] Respiratory 24 28 H 25 H Rate Respiratory Rate [Anterior Bilateral Throughout] Blood Pressure 128/72 121/69 120/60 O2 Sat by Pulse 98 97 97 Oximetry 09/14/17 09/14/17 09/14/17 01:15 01:30 01:45 Temperature Pulse Rate 116 H 122 H 126 H Pulse Rate [ Anterior Bilateral Throughout] Respiratory 20 24 22 Rate Respiratory Rate [Anterior Bilateral Throughout] Blood Pressure 107/59 118/61 119/60 O2 Sat by Pulse 97 97 97 Oximetry 09/14/17 09/14/17 09/14/17 02:00 02:15 02:31 Temperature Pulse Rate 127 H 112 H 117 H Pulse Rate [ Anterior Bilateral Throughout] Respiratory 19 25 H 15 Rate Respiratory Rate [Anterior Bilateral Throughout] Blood Pressure 118/62 115/58 123/64 O2 Sat by Pulse 97 95 97 Oximetry 09/14/17 09/14/17 09/14/17 02:45 03:00 03:15 Temperature Pulse Rate 115 H 117 H 112 H Pulse Rate [ Anterior Bilateral Throughout] Respiratory 16 25 H 20 Rate Respiratory Rate [Anterior Bilateral Throughout] Blood Pressure 125/69 121/68 125/61 O2 Sat by Pulse 98 96 98 Oximetry 09/14/17 09/14/17 09/14/17 03:16 03:30 03:45 Temperature Pulse Rate 126 H 107 H 118 H Pulse Rate [ Anterior Bilateral Throughout] Respiratory 18 19 Rate Respiratory Rate [Anterior Bilateral Throughout] Blood Pressure 121/68 116/59 118/57 O2 Sat by Pulse 98 97 97 Oximetry 09/14/17 09/14/17 09/14/17 04:00 04:01 04:15 Temperature 99.3 F Pulse Rate 111 H 109 H Pulse Rate [ Anterior Bilateral Throughout] Respiratory 20 18 Rate Respiratory Rate [Anterior Bilateral Throughout] Blood Pressure 124/60 110/71 O2 Sat by Pulse 99 97 96 Oximetry 09/14/17 09/14/17 09/14/17 04:31 04:45 05:00 Temperature Pulse Rate 120 H 107 H 118 H Pulse Rate [ Anterior Bilateral Throughout] Respiratory 24 27 H 21 Rate Respiratory Rate [Anterior Bilateral Throughout] Blood Pressure 113/72 114/62 120/71 O2 Sat by Pulse 97 97 96 Oximetry 09/14/17 09/14/17 09/14/17 05:15 05:30 05:45 Temperature Pulse Rate 106 H 119 H 105 H Pulse Rate [ Anterior Bilateral Throughout] Respiratory 26 H 19 26 H Rate Respiratory Rate [Anterior Bilateral Throughout] Blood Pressure 119/62 112/70 122/56 O2 Sat by Pulse 98 97 97 Oximetry 09/14/17 09/14/17 09/14/17 06:01 06:15 06:30 Temperature Pulse Rate 109 H 109 H Pulse Rate [ Anterior Bilateral Throughout] Respiratory 19 10 L Rate Respiratory Rate [Anterior Bilateral Throughout] Blood Pressure 114/91 116/83 131/63 O2 Sat by Pulse 95 98 99 Oximetry 09/14/17 09/14/17 09/14/17 06:45 07:47 07:57 Temperature Pulse Rate 113 H 102 H Pulse Rate [ 106 H 104 H Anterior Bilateral Throughout] Respiratory 14 Rate Respiratory 24 24 Rate [Anterior Bilateral Throughout] Blood Pressure 121/61 124/55 O2 Sat by Pulse 99 100 Oximetry 09/14/17 11:40 Temperature Pulse Rate 105 H Pulse Rate [ Anterior Bilateral Throughout] Respiratory Rate Respiratory Rate [Anterior Bilateral Throughout] Blood Pressure 117/51 O2 Sat by Pulse 96 Oximetry Constitutional: alert, appears uncomfortable, other (elderly looking slightly obese CM; normocephalic) Eyes: non-icteric ENT: oropharynx moist, other (s/p tracheostomy) Neck: supple, no lymphadenopathy, other (no thyromegaly) Effort: mildly labored Ascultation: Bilateral: diminished breath sounds, rhonchi Percussion: Bilateral: dull (bases) Cardiovascular: regular rate and rhythm, other (no rubs or murmurs) Gastrointestinal: hypoactive bowel sounds, soft, non-tender, non-distended, other (midline wound vac) Integumentary: normal Extremities: no cyanosis, pink and warm, pulses normal, no ischemia or petechiae , edema Neurologic: non-focal exam (grossly), pupils equal and round, CN II-XII normal, motor strength normal and (weak), other (mild cognitive dysfunction / dementia element) Psychiatric: anxious CBC and BMP: 09/16/17 06:15 09/16/17 06:15 ABG, PT/INR, D-dimer: ABG POC ABG pH 7.332 (7.35-7.45) L 09/14/17 04:07 POC ABG pCO2 34.3 (35-45) L 09/14/17 04:07 POC ABG pO2 76 (80-105) L 09/14/17 04:07 POC ABG HCO3 18.2 09/14/17 04:07 POC ABG Total CO2 19 09/14/17 04:07 POC ABG O2 Sat 94 09/14/17 04:07 Abnormal lab findings: Abnormal Labs 09/12/17 09/13/17 09/13/17 22:56 03:08 05:20 RBC 3.60 L Hgb 11.5 L Hct 34.4 L MCV 95 H RDW 19.8 H Plt Count 83 L Lymphocytes % (Manual) 11.0 L Lymphocytes # (Manual) 0.7 L POC ABG pH 7.280 L POC ABG pCO2 46.4 H POC ABG pO2 110 H Potassium Chloride Carbon Dioxide BUN Creatinine Glucose POC Glucose 135 H Lactic Acid Calcium Phosphorus Total Bilirubin AST ALT C-Reactive Protein Total Protein Albumin Prealbumin Urine WBC (Auto) Urine Creatinine Urine Total Protein 09/13/17 09/13/17 09/13/17 05:20 14:47 14:47 RBC Hgb Hct MCV RDW Plt Count Lymphocytes % (Manual) Lymphocytes # (Manual) POC ABG pH POC ABG pCO2 POC ABG pO2 Potassium 5.2 H Chloride 109.6 H Carbon Dioxide 20 L BUN 54 H Creatinine 2.3 H Glucose POC Glucose Lactic Acid Calcium 7.8 L Phosphorus 6.20 H Total Bilirubin AST ALT C-Reactive Protein Total Protein Albumin Prealbumin 0.050 L Urine WBC (Auto) 30.0 H Urine Creatinine 180.6 H Urine Total Protein 289 H 09/13/17 09/13/17 09/13/17 14:54 14:54 17:04 RBC Hgb Hct MCV RDW Plt Count Lymphocytes % (Manual) Lymphocytes # (Manual) POC ABG pH POC ABG pCO2 POC ABG pO2 Potassium Chloride Carbon Dioxide BUN Creatinine Glucose POC Glucose 114 H Lactic Acid 2.20 H* Calcium Phosphorus Total Bilirubin AST ALT C-Reactive Protein 33.10 H Total Protein Albumin Prealbumin Urine WBC (Auto) Urine Creatinine Urine Total Protein 09/13/17 09/13/17 09/14/17 19:40 23:49 04:07 RBC Hgb Hct MCV RDW Plt Count Lymphocytes % (Manual) Lymphocytes # (Manual) POC ABG pH 7.332 L POC ABG pCO2 34.3 L POC ABG pO2 76 L Potassium Chloride Carbon Dioxide BUN Creatinine Glucose POC Glucose 115 H Lactic Acid 2.20 H* Calcium Phosphorus Total Bilirubin AST ALT C-Reactive Protein Total Protein Albumin Prealbumin Urine WBC (Auto) Urine Creatinine Urine Total Protein 05/21/18 05/21/18 05/21/18 05:15 05:15 05:35 RBC Hgb Hct MCV RDW Plt Count Lymphocytes % (Manual) Lymphocytes # (Manual) POC ABG pH POC ABG pCO2 POC ABG pO2 Potassium Chloride 107.5 H Carbon Dioxide 18 L BUN 77 H Creatinine 3.0 H Glucose 185 H POC Glucose 196 H Lactic Acid Calcium 7.3 L Phosphorus 7.80 H D Total Bilirubin 2.50 H AST 991 H ALT 1757 H C-Reactive Protein Total Protein 4.1 L Albumin 1.8 L Prealbumin Urine WBC (Auto) Urine Creatinine Urine Total Protein Chest x-ray: image reviewed (bilateral mild to moderate pleural effusions)
--- NOTE | 2017-09-14 12:31 | Consultation ---
History of Present Illness Consult date: 09/14/17 Requesting physician: HEMANTH LOPEZ Consult reason: atrial fibrillation History of present illness: The history was obtained from a review of the medical chart since the patient is currently intubated and mechanically ventilated. The patient initially underwent lower extremity vascular procedure at [facility] in July 2017. Postoperatively, he developed hypotension with retroperitoneal hematoma. Eventually, his course was complicated by multi-organ system failure with requirement for intubation and mechanical ventilation. Due to failure to wean, he was transferred to LTAC for further management. He subsequently had a tracheostomy and PEG tube placed. His PEG tube became dislodged and was subsequently replaced. He was noted to have a pneumoperitoneum at that time. However, it was managed conservatively. He later developed altered mental status associated with hypotension and abdominal distention prompting transfer to the intensive care unit. A new pneumoperitoneum was documented and he was taken to the OR for emergency exploratory laparotomy with repair of gastrostomy and removal of the PEG tube. Postoperatively, he went into rapid atrial fibrillation. Past History Past Medical History: CAD, diabetes, hypertension, hyperlipidemia, PVD Past Surgical History: Other (Trach/PEG, [employer] endarterectomy, b/l iliac angio and external iliac stent) Social history: smoking, alcohol abuse Family history: no significant family history Medications and Allergies Allergies Allergy/AdvReac Type Severity Reaction Status Date / Time Sulfa (Sulfonamide Allergy rash, Verified 08/05/17 10:59 Antibiotics) swelling Home Medications Medication Instructions Recorded Confirmed Last Taken Type Amlodipine Besylate [Norvasc] 10 mg PO DAILY 05/05/17 09/01/17 08/11/17 05:30 History Aspirin [Lo-Dose Aspirin EC] 81 mg PO DAILY 05/05/17 09/01/17 08/11/17 05:30 History Cilostazol [Pletal] 100 mg PO BID 05/05/17 09/01/17 08/11/17 05:30 History Diclofenac Sodium 75 mg PO DAILY 05/05/17 09/01/17 08/11/17 05:30 History Labetalol HCl 300 mg PO TID 05/05/17 09/01/17 08/11/17 05:30 History PARoxetine [Paxil] 20 mg PO DAILY 05/05/17 09/01/17 08/11/17 05:30 History Valsartan-Hctz 320-25 mg Tab 1 tab PO DAILY 05/05/17 09/01/17 08/11/17 05:30 History metFORMIN [Glucophage] 500 mg PO BID 05/05/17 09/01/17 08/10/17 History HYDROcodone/APAP 7.5-325 [[place] 1 each PO Q6HR PRN #20 tablet 05/12/17 09/01/17 Unknown Rx 7.5-325 mg TAB] Active Meds: Active Medications Acetaminophen (Tylenol) 650 mg PO Q4H PRN PRN Reason: Pain MILD(1-3)/Fever >100.5/BELLAMY Albuterol/Ipratropium (Duoneb *Not For Prn Use*) 1 ampul IH Q8HRT [facility] Last Admin: 09/14/17 07:48 Dose: Not Given Arformoterol Tartrate (Brovana Nebu) 15 mcg IH Q12HRT [facility] Last Admin: 09/14/17 07:47 Dose: 15 mcg Budesonide (Pulmicort) 0.5 mg IH Q12HRT [facility] Last Admin: 09/14/17 07:47 Dose: 0.5 mg Dextrose (D50w (25gm) Syringe) 50 ml IV PRN PRN PRN Reason: Hypoglycemia Fentanyl (Sublimaze) 50 mcg IV Q2H PRN PRN Reason: Pain Heparin Sodium (Porcine) (Heparin) 5,000 unit SUB-Q Q8HR [facility] Last Admin: 09/14/17 05:24 Dose: 5,000 unit Hydrophilic Ointment (Vaseline Lip Therapy) 1 applic TP Q2H PRN PRN Reason: Dry Lips Sodium Chloride (Nacl 0.9% 1000 Ml) 1,000 mls @ 125 mls/hr IV DIRECT [facility] Last Admin: 09/14/17 08:29 Dose: 125 mls/hr Metronidazole (Flagyl 500 Mg/100 Ml) 500 mg in 100 mls @ 100 mls/hr IV Q8HR [facility] Last Admin: 09/14/17 05:24 Dose: 100 mls/hr Norepinephrine (Levophed Drip 4 Mg/Ns 250 Ml) 4 mg in 250 mls @ 7.5 mls/hr IV TITR [facility]; Protocol Last Titration: 09/13/17 17:03 Dose: 0 mcg/min, 0 mls/hr Vasopressin 20 unit/ Sodium (Chloride) 101 mls @ 9.09 mls/hr IV TITR [facility]; Protocol Last Titration: 09/14/17 08:30 Dose: 0 units/min, 0 mls/hr Amino Acids/Electrolytes/Dextrose (Tpn Adult) 2,400 mls @ 100 mls/hr IV DAILY@ 1999 [facility]; Protocol Stop: 09/14/17 19:59 Last Admin: 09/13/17 21:24 Dose: 100 mls/hr Fluconazole (Diflucan) 200 mg in 100 mls @ 100 mls/hr IV Q24H [facility] Last Admin: 09/13/17 21:25 Dose: 100 mls/hr Levofloxacin/Dextrose (Levaquin 750mg/150ml) 750 mg in 150 mls @ 100 mls/hr IV Q48H [facility] Insulin Human Lispro (Humalog) 0 unit SUB-Q Q6HR [facility]; Protocol Last Admin: 09/14/17 05:33 Dose: 1 unit Lorazepam (Ativan) 2 mg IV Q4H PRN PRN Reason: Moderate Agitation Multi-Ingred Cream/Lotion/Oil/Oint (Artificial Tears Ophth Oint) 1 applic OU Q4H PRN PRN Reason: Dry Eye(s) Naloxone HCl (Narcan 0.4 Mg/1 Ml) 0.1 mg IV Q2MIN PRN PRN Reason: Res Rate </= 8 or 02 SAT < 92% Pantoprazole Sodium (Protonix) 40 mg IV QDAY [facility] Last Admin: 09/14/17 09:19 Dose: 40 mg Sodium Chloride (Sodium Chloride Flush Syringe 10 Ml) 10 ml IV BID [facility] Last Admin: 09/13/17 21:27 Dose: 10 ml Sodium Chloride (Sodium Chloride Flush Syringe 10 Ml) 10 ml IV PRN PRN PRN Reason: LINE FLUSH Sodium Chloride (Nacl 0.9% 500 Ml) 5 ml IV DIRECT PRN PRN Reason: [employer] Review of Systems ROS unobtainable: due to endotracheal tube Physical Examination Vital Signs Last Vital Signs Temp 99.3 F 09/14/17 04:00 Pulse 105 H 09/14/17 11:40 Resp 24 09/14/17 07:57 BP 117/51 09/14/17 11:40 Pulse Ox 96 09/14/17 11:40 General appearance: no acute distress HEENT: Positive: EOMI, Normocephaly, Mucus Membranes Moist Neck: Positive: neck supple, trachea midline Cardiac: Positive: irregularly irregular, S1/S2 Lungs: Positive: clear to auscultation Neuro: Positive: Grossly Intact Abdomen: Positive: Soft, Active Bowel Sounds Skin: Positive: Clear. Negative: Rash Musculoskeletal: Normal Range of Motion Extremities: Present: +1 Edema Results 09/13/17 05:20 09/14/17 05:15 Cardiac Enzymes 09/14/17 Range/Units 05:15 AST 991 H (5-40) units/L Comprehensive Metabolic Panel 09/14/17 Range/Units 05:15 Sodium 141 (137-145) mmol/L Potassium 5.0 (3.6-5.0) mmol/L Chloride 107.5 H (98-107) mmol/L Carbon Dioxide 18 L (22-30) mmol/L BUN 77 H (9-20) mg/dL Creatinine 3.0 H (0.8-1.5) mg/dL Glucose 185 H (75-100) mg/dL Calcium 7.3 L (8.4-10.2) mg/dL AST 991 H (5-40) units/L ALT 1757 H (7-56) units/L Alkaline Phosphatase 108 (35-129) units/L Total Protein 4.1 L (6.3-8.2) g/dL Albumin 1.8 L (3.9-5) g/dL EKG interpretations - Telemetry EKG Rhythm: Atrial Fibrillation (with RVR) Assessment and Plan Due to requirement for vasopressor support at this time, will initiate IV amiodarone to control his arrhythmia. Obtain echocardiogram. - Patient Problems (1) Atrial fibrillation with RVR Current Visit: Yes Status: Acute (2) Acute respiratory failure with hypoxia Current Visit: Yes Status: Acute (3) Severe sepsis with septic shock Current Visit: Yes Status: Acute (4) Acute renal failure Current Visit: Yes Status: Acute Qualifiers: Acute renal failure type: with acute tubular necrosis Qualified Code(s): N17.0 - Acute kidney failure with tubular necrosis (5) Peritonitis Current Visit: Yes Status: Acute (6) Pneumoperitoneum Current Visit: Yes Status: Acute (7) PAD (peripheral artery disease) Current Visit: Yes Status: Chronic
[2017-09-14] MEDS ORDERED: CORDARONE 150 MG in D5W 97 ML IV ONE (13:15)
--- NOTE | 2017-09-14 14:35 | Progress Note ---
Assessment and Plan 66-year-old male s/p Exploratory laparotomy, repair of gastrotomy, removal of PEG tube, peritoneal lavage, temporary closure of abdomen with Abthera Vac. POD 1 1. septic shock 2. dislodged PEG tube 3. intraabdominal infection 4. WILLIAM Plan: 1. neuro - prn versed and fentanyl IV 2. CV - afib in OR, new for patient. Recommend cardiology consult. Off pressors. DVT ppx - SQH 3. Resp: vent management per CCU team 4. GI: NPO, NGT to LCWS. Abthera to -125mmHG suction. On TPN, will dc IVF 5. : barrientos for strict I/Os. May need HD per nephro 6. Endo: accuchecks q6, ISS. 7. ID: c/w abx - levaquin, flagyl, diflucan IV. ID consult requested 8. FEN: BMP in am. replace lytes as needed. c/w NPO. c/w TPN Plan to return to OR 09/15/17 at 11:30am for exlap, abdominal washout, placement of feeding tube, and cholecystectomy. All risks, benefits, and alternatives discussed with patient and . Patient is in agreement to proceed to surgery. Consent signed and placed on chart. Thank you for this consultation, please call with questions or concerns. Subjective Date of service: 09/14/17 Narrative: Pt seen and examined. No overnight events. No complaints of pain. No f/c. Off all pressors now. Objective Vital Signs - 12hr 09/14/17 09/14/17 09/14/17 02:31 02:45 03:00 Temperature Pulse Rate 117 H 115 H 117 H Pulse Rate [ Anterior Bilateral Throughout] Respiratory 15 16 25 H Rate Respiratory Rate [Anterior Bilateral Throughout] Blood Pressure 123/64 125/69 121/68 O2 Sat by Pulse 97 98 96 Oximetry 09/14/17 09/14/17 09/14/17 03:15 03:16 03:30 Temperature Pulse Rate 112 H 126 H 107 H Pulse Rate [ Anterior Bilateral Throughout] Respiratory 20 18 Rate Respiratory Rate [Anterior Bilateral Throughout] Blood Pressure 125/61 121/68 116/59 O2 Sat by Pulse 98 98 97 Oximetry 09/14/17 09/14/17 09/14/17 03:45 04:00 04:01 Temperature 99.3 F Pulse Rate 118 H 111 H Pulse Rate [ Anterior Bilateral Throughout] Respiratory 19 20 Rate Respiratory Rate [Anterior Bilateral Throughout] Blood Pressure 118/57 124/60 O2 Sat by Pulse 97 99 97 Oximetry 09/14/17 09/14/17 09/14/17 04:15 04:31 04:45 Temperature Pulse Rate 109 H 120 H 107 H Pulse Rate [ Anterior Bilateral Throughout] Respiratory 18 24 27 H Rate Respiratory Rate [Anterior Bilateral Throughout] Blood Pressure 110/71 113/72 114/62 O2 Sat by Pulse 96 97 97 Oximetry 09/14/17 09/14/17 09/14/17 05:00 05:15 05:30 Temperature Pulse Rate 118 H 106 H 119 H Pulse Rate [ Anterior Bilateral Throughout] Respiratory 21 26 H 19 Rate Respiratory Rate [Anterior Bilateral Throughout] Blood Pressure 120/71 119/62 112/70 O2 Sat by Pulse 96 98 97 Oximetry 09/14/17 09/14/17 09/14/17 05:45 06:01 06:15 Temperature Pulse Rate 105 H 109 H Pulse Rate [ Anterior Bilateral Throughout] Respiratory 26 H 19 Rate Respiratory Rate [Anterior Bilateral Throughout] Blood Pressure 122/56 114/91 116/83 O2 Sat by Pulse 97 95 98 Oximetry 09/14/17 09/14/17 09/14/17 06:30 06:45 07:47 Temperature Pulse Rate 109 H 113 H 102 H Pulse Rate [ 106 H Anterior Bilateral Throughout] Respiratory 10 L 14 Rate Respiratory 24 Rate [Anterior Bilateral Throughout] Blood Pressure 131/63 121/61 124/55 O2 Sat by Pulse 99 99 100 Oximetry 09/14/17 09/14/17 07:57 11:40 Temperature Pulse Rate 105 H Pulse Rate [ 104 H Anterior Bilateral Throughout] Respiratory Rate Respiratory 24 Rate [Anterior Bilateral Throughout] Blood Pressure 117/51 O2 Sat by Pulse 96 Oximetry - General physical appearance Narrative Exam: Gen: Awake and calm on vent. Answers yes/no questions appropriately ENT: ETT and NGT in place. Bilious drainage from NGT CV: S1, S2+ ResP: on vent Abd; soft, ND, NT. Abthera Vac in place with serous drainage in VAC canister. No leak Ext: +edema b/l LE : barrientos with sandy dark urine - Labs 09/13/17 05:20 09/14/17 05:15 Diabetes panel 09/14/17 Range/Units 05:15 Sodium 141 (137-145) mmol/L Potassium 5.0 (3.6-5.0) mmol/L Chloride 107.5 H (98-107) mmol/L Carbon Dioxide 18 L (22-30) mmol/L BUN 77 H (9-20) mg/dL Creatinine 3.0 H (0.8-1.5) mg/dL Glucose 185 H (75-100) mg/dL Calcium 7.3 L (8.4-10.2) mg/dL AST 991 H (5-40) units/L ALT 1757 H (7-56) units/L Alkaline Phosphatase 108 (35-129) units/L Total Protein 4.1 L (6.3-8.2) g/dL Albumin 1.8 L (3.9-5) g/dL Calcium panel 09/14/17 09/14/17 Range/Units 05:15 05:15 Calcium 7.3 L (8.4-10.2) mg/dL Phosphorus 7.80 H D (2.5-4.5) mg/dL Albumin 1.8 L (3.9-5) g/dL Pituitary panel 09/14/17 Range/Units 05:15 Sodium 141 (137-145) mmol/L Potassium 5.0 (3.6-5.0) mmol/L Chloride 107.5 H (98-107) mmol/L Carbon Dioxide 18 L (22-30) mmol/L BUN 77 H (9-20) mg/dL Creatinine 3.0 H (0.8-1.5) mg/dL Glucose 185 H (75-100) mg/dL Calcium 7.3 L (8.4-10.2) mg/dL Adrenal panel 09/14/17 Range/Units 05:15 Sodium 141 (137-145) mmol/L Potassium 5.0 (3.6-5.0) mmol/L Chloride 107.5 H (98-107) mmol/L Carbon Dioxide 18 L (22-30) mmol/L BUN 77 H (9-20) mg/dL Creatinine 3.0 H (0.8-1.5) mg/dL Glucose 185 H (75-100) mg/dL Calcium 7.3 L (8.4-10.2) mg/dL Total Bilirubin 2.50 H (0.1-1.2) mg/dL AST 991 H (5-40) units/L ALT 1757 H (7-56) units/L Alkaline Phosphatase 108 (35-129) units/L Total Protein 4.1 L (6.3-8.2) g/dL Albumin 1.8 L (3.9-5) g/dL
[2017-09-14] MEDS: CORDARONE 900 MG in D5W 482 ML IV SCH (14:46)
--- NOTE | 2017-09-14 14:50 | Consultation ---
History of Present Illness - Reason for Consult Consult date: 09/14/17 septic shock Requesting physician: REHANA MAHMOOD - History of Present Illness 66 year old male with history of hypertension, Type 2 DM, hyperlipidemia, CAD, PAD, initially admitted on 08/11/17 for elective right common femoral endarterectomy with patch angioplasty, bilateral common iliac and right external artery stenting due to right lower extremity chronic ischemia with short distance claudication, found to have an occluded right common femoral artery, severely disease right external iliac artery, disease in the bilateral common iliac artery. Initial temp 98.4, HR 70, R 20, O2 sat 95%, BP140/62. WBC 7.9. Hg 14. Plat 241. After procedure, unfortunately, patient became hypotensive , received multiple fluid resuscitation and blood products. He then became altered and was intubated for airway protection. CTA showed retroperitoneal hemorrhage and bladder thickening. He was found to have a ruptured pseudoaneurysm left groin/external iliac with extravasation from the common femoral artery below the previously placed Viabond stent graft tracking retrograde into the lower abdomen and pelvis successfully treated by deployment of new Viabond stent graft across the inguinal ligament into the common femoral artery. TTE EF 30-35%. By 08/15 he started spiking fever 101.2. WBC 12.7. Lactate 3.1. Creat went up 2.4. Ua showed trace LA and >182 wbc. Admission blood cx were negative and urine cx negative. Last 24h patient continues to have 102 fever and leukocytosis 14K. ID consulted due to persistent fever and leukocytosis. CXR showed bibasilar perihilar and bibasilar opacities and right mod pleural effusion, left mild pleural effusion. I saw patient for Sepsis with intermittent hypovolemic +/- septic shock. Sepsis Etiology ?? unclear - possibilities VAP . CRP=22/Procal 0.3. Presumed VAP: CXR showed bibasilar perihilar and bibasilar opacities and right mod pleural effusion, left mild pleural effusion. UTI inital UA c/w UTI, urine cx negative. Repeat UA neg. Patient was treated empirically with vancomycin and cefepime renally dosed for 10 days. Sepsis improved. S/P tracheostomy and PEG tube placed. Patient subsequently was transferred over to LT[facility] on 08/27/17. Unfortunately, patient had progressively worsening abdomen distention on . Patient was readmitted on 09/01/17. CT scan showed extensive pneumoperitoneum. Patient noted with hypotension at LTAC. However wasn't clear whether this was a result of evolving sepsis or dose of metoprolol. Patient was given IV fluid. Systolic blood pressure was still in the 80s. He was commenced on Levophed. Patient was started on IV vancomycin and Zosyn and Levaquin. upon re-admission, initial temperature 98.8, heart rate 100, respiration 20, O2 sat 98, blood pressure 137/70. White count 8.1. Hemoglobin 8.6. Platelets 172. Creatinine 1.6. CRP 9.5. Urinalysis shows small leukocytes and white blood cell 58. It was deemed that hypotension was related to metoprolol intake. No evidence of sepsis found. Received levaquin for 5 days for mild UTI. Unfortunately, patient was readmitted on 09/13/17 due to severe hypotension. It seems like his tube feeds were restarted two days before readmission at 10cc/ hr. But by 09/12 he developed abdominal distension and pain. He then received dilaudid and became altered and hypotensive. He was started on pressors. Initial temp 98.8, HR 124, R 100, BP 116/71. WBC 6.7. Hg 11.5. Plat 83. Creat 2.3 Lactate 2.2. CXR neg. UA wbc 30, LE moderate. Urgent CT showed pneumoperitoneum and PEG tube bumper outside of stomach. Patient was taken to the OR on for Exploratory laparotomy, repair of gastrotomy, removal of PEG tube , peritoneal lavage, temporary closure of abdomen with Abthera Vac. Findings - Free tube feeds in abdomen, PEG tube dislodged from stomach. Microbiology: Blood cultures: 09/01 neg Urine cultures: Respiratory cultures: 09/01 usual resp rudy Antibiotics: levaquin metronidazole fluconazole Past History Past Medical History: CAD, diabetes, hypertension, hyperlipidemia, PVD Past Surgical History: Other (Trach/PEG, R STORM CHASER endarterectomy, b/l iliac angio and external iliac stent) Social history: smoking, alcohol abuse Family history: no significant family history Medications and Allergies Allergies Allergy/AdvReac Type Severity Reaction Status Date / Time Sulfa (Sulfonamide Allergy rash, Verified 08/05/17 10:59 Antibiotics) swelling Home Medications Medication Instructions Recorded Confirmed Last Taken Type Amlodipine Besylate [Norvasc] 10 mg PO DAILY 05/05/17 09/01/17 08/11/17 05:30 History Aspirin [Lo-Dose Aspirin EC] 81 mg PO DAILY 05/05/17 09/01/17 08/11/17 05:30 History Cilostazol [Pletal] 100 mg PO BID 05/05/17 09/01/17 08/11/17 05:30 History Diclofenac Sodium 75 mg PO DAILY 05/05/17 09/01/17 08/11/17 05:30 History Labetalol HCl 300 mg PO TID 05/05/17 09/01/17 08/11/17 05:30 History PARoxetine [Paxil] 20 mg PO DAILY 05/05/17 09/01/17 08/11/17 05:30 History Valsartan-Hctz 320-25 mg Tab 1 tab PO DAILY 05/05/17 09/01/17 08/11/17 05:30 History metFORMIN [Glucophage] 500 mg PO BID 05/05/17 09/01/17 08/10/17 History HYDROcodone/APAP 7.5-325 [Lloyd 1 each PO Q6HR PRN #20 tablet 05/12/17 09/01/17 Unknown Rx 7.5-325 mg TAB] Active Meds: Active Medications Acetaminophen (Tylenol) 650 mg PO Q4H PRN PRN Reason: Pain MILD(1-3)/Fever >100.5/BELLAMY Albuterol/Ipratropium (Duoneb *Not For Prn Use*) 1 ampul IH Q8HRT [facility] Last Admin: 09/14/17 07:48 Dose: Not Given Arformoterol Tartrate (Brovana Nebu) 15 mcg IH Q12HRT [facility] Last Admin: 09/14/17 07:47 Dose: 15 mcg Budesonide (Pulmicort) 0.5 mg IH Q12HRT [facility] Last Admin: 09/14/17 07:47 Dose: 0.5 mg Dextrose (D50w (25gm) Syringe) 50 ml IV PRN PRN PRN Reason: Hypoglycemia Fentanyl (Sublimaze) 50 mcg IV Q2H PRN PRN Reason: Pain Heparin Sodium (Porcine) (Heparin) 5,000 unit SUB-Q Q8HR [facility] Last Admin: 09/14/17 14:16 Dose: 5,000 unit Hydrophilic Ointment (Vaseline Lip Therapy) 1 applic TP Q2H PRN PRN Reason: Dry Lips Sodium Chloride (Nacl 0.9% 1000 Ml) 1,000 mls @ 125 mls/hr IV DIRECT [facility] Stop: 09/14/17 19:00 Last Admin: 09/14/17 08:29 Dose: 125 mls/hr Metronidazole (Flagyl 500 Mg/100 Ml) 500 mg in 100 mls @ 100 mls/hr IV Q8HR [facility] Last Admin: 09/14/17 14:16 Dose: 100 mls/hr Norepinephrine (Levophed Drip 4 Mg/Ns 250 Ml) 4 mg in 250 mls @ 7.5 mls/hr IV TITR [facility]; Protocol Last Titration: 09/13/17 17:03 Dose: 0 mcg/min, 0 mls/hr Vasopressin 20 unit/ Sodium (Chloride) 101 mls @ 9.09 mls/hr IV TITR [facility]; Protocol Last Titration: 09/14/17 08:30 Dose: 0 units/min, 0 mls/hr Amino Acids/Electrolytes/Dextrose (Tpn Adult) 2,400 mls @ 100 mls/hr IV DAILY@ 1999 [facility]; Protocol Stop: 09/14/17 19:59 Last Admin: 09/13/17 21:24 Dose: 100 mls/hr Fluconazole (Diflucan) 200 mg in 100 mls @ 100 mls/hr IV Q24H [facility] Last Admin: 09/13/17 21:25 Dose: 100 mls/hr Levofloxacin/Dextrose (Levaquin 750mg/150ml) 750 mg in 150 mls @ 100 mls/hr IV Q48H [facility] Amiodarone HCl 900 mg/ (Dextrose) 500 mls @ 33.33 mls/hr IV DIRECT [facility]; Protocol Amino Acids/Electrolytes/Dextrose (Tpn Adult) 2,400 mls @ 100 mls/hr IV DAILY@ 1999 [facility]; Protocol Stop: 09/15/17 19:59 Insulin Human Lispro (Humalog) 0 unit SUB-Q Q6HR [facility]; Protocol Last Admin: 09/14/17 13:00 Dose: 2 unit Lorazepam (Ativan) 2 mg IV Q4H PRN PRN Reason: Moderate Agitation Multi-Ingred Cream/Lotion/Oil/Oint (Artificial Tears Ophth Oint) 1 applic OU Q4H PRN PRN Reason: Dry Eye(s) Naloxone HCl (Narcan 0.4 Mg/1 Ml) 0.1 mg IV Q2MIN PRN PRN Reason: Res Rate </= 8 or 02 SAT < 92% Pantoprazole Sodium (Protonix) 40 mg IV QDAY [facility] Last Admin: 09/14/17 09:19 Dose: 40 mg Sodium Chloride (Sodium Chloride Flush Syringe 10 Ml) 10 ml IV BID [facility] Last Admin: 09/14/17 10:45 Dose: 10 ml Sodium Chloride (Sodium Chloride Flush Syringe 10 Ml) 10 ml IV PRN PRN PRN Reason: LINE FLUSH Sodium Chloride (Nacl 0.9% 500 Ml) 5 ml IV DIRECT PRN PRN Reason: ARTERIAL SOC ANALYST Review of Systems ROS unobtainable: due to mental status Physical Examination - Physical Exam Narrative exam: General appearance: sedated in NAD Eyes: anicteric sclerae, moist conjunctivae; no lid-lag; PERRLA HENT: Atraumatic; oropharynx limited Lungs: CTA, with normal respiratory effort and no intercostal retractions CV: RRR, no murmurs Abdomen: Soft, midline wound with wound VAC Extremities: No peripheral edema or extremity lymphadenopathy Skin: Normal temperature, turgor and texture; no rash, ulcers or subcutaneous nodules Psych: sedated Neuro: sedated Lines: barrientos - Constitutional Vitals: Vital Signs Temp Pulse Resp BP Pulse Ox 99.3 F 105 H 24 117/51 96 09/14/17 04:00 09/14/17 11:40 09/14/17 07:57 09/14/17 11:40 09/14/17 11:40 Temperature -Last 24 Hours Temperature 99.3 F Temperature 99.8 F Temperature 98.9 F Temperature 98.7 F Results - Labs CBC & Chem 7: 09/13/17 05:20 09/14/17 05:15 Labs: Abnormal lab results 09/13/17 09/13/17 09/13/17 Range/Units 14:47 14:47 14:54 POC ABG pH (7.35-7.45) POC ABG pCO2 (35-45) POC ABG pO2 (80-105) Chloride (98-107) mmol/L Carbon Dioxide (22-30) mmol/L BUN (9-20) mg/dL Creatinine (0.8-1.5) mg/dL Glucose (75-100) mg/dL POC Glucose (70-105) Lactic Acid 2.20 H* (0.7-2.0) mmol/L Calcium (8.4-10.2) mg/dL Phosphorus (2.5-4.5) mg/dL Total Bilirubin (0.1-1.2) mg/dL AST (5-40) units/L ALT (7-56) units/L C-Reactive Protein (0.00-1.30) mg/dL Total Protein (6.3-8.2) g/dL Albumin (3.9-5) g/dL Urine WBC (Auto) 30.0 H (0.0-6.0) /HPF Urine Creatinine 180.6 H (0.1-20.0) mg/dL Urine Total Protein 289 H (5-11.8) mg/dL 09/13/17 09/13/17 09/13/17 Range/Units 14:54 17:04 19:40 POC ABG pH (7.35-7.45) POC ABG pCO2 (35-45) POC ABG pO2 (80-105) Chloride (98-107) mmol/L Carbon Dioxide (22-30) mmol/L BUN (9-20) mg/dL Creatinine (0.8-1.5) mg/dL Glucose (75-100) mg/dL POC Glucose 114 H (70-105) Lactic Acid 2.20 H* (0.7-2.0) mmol/L Calcium (8.4-10.2) mg/dL Phosphorus (2.5-4.5) mg/dL Total Bilirubin (0.1-1.2) mg/dL AST (5-40) units/L ALT (7-56) units/L C-Reactive Protein 33.10 H (0.00-1.30) mg/dL Total Protein (6.3-8.2) g/dL Albumin (3.9-5) g/dL Urine WBC (Auto) (0.0-6.0) /HPF Urine Creatinine (0.1-20.0) mg/dL Urine Total Protein (5-11.8) mg/dL 09/13/17 09/14/17 09/14/17 Range/Units 23:49 04:07 05:15 POC ABG pH 7.332 L (7.35-7.45) POC ABG pCO2 34.3 L (35-45) POC ABG pO2 76 L (80-105) Chloride (98-107) mmol/L Carbon Dioxide (22-30) mmol/L BUN (9-20) mg/dL Creatinine (0.8-1.5) mg/dL Glucose (75-100) mg/dL POC Glucose 115 H (70-105) Lactic Acid (0.7-2.0) mmol/L Calcium (8.4-10.2) mg/dL Phosphorus 7.80 H D (2.5-4.5) mg/dL Total Bilirubin (0.1-1.2) mg/dL AST (5-40) units/L ALT (7-56) units/L C-Reactive Protein (0.00-1.30) mg/dL Total Protein (6.3-8.2) g/dL Albumin (3.9-5) g/dL Urine WBC (Auto) (0.0-6.0) /HPF Urine Creatinine (0.1-20.0) mg/dL Urine Total Protein (5-11.8) mg/dL 09/14/17 09/14/17 09/14/17 Range/Units 05:15 05:35 12:17 POC ABG pH (7.35-7.45) POC ABG pCO2 (35-45) POC ABG pO2 (80-105) Chloride 107.5 H (98-107) mmol/L Carbon Dioxide 18 L (22-30) mmol/L BUN 77 H (9-20) mg/dL Creatinine 3.0 H (0.8-1.5) mg/dL Glucose 185 H (75-100) mg/dL POC Glucose 196 H 212 H (70-105) Lactic Acid (0.7-2.0) mmol/L Calcium 7.3 L (8.4-10.2) mg/dL Phosphorus (2.5-4.5) mg/dL Total Bilirubin 2.50 H (0.1-1.2) mg/dL AST 991 H (5-40) units/L ALT 1757 H (7-56) units/L C-Reactive Protein (0.00-1.30) mg/dL Total Protein 4.1 L (6.3-8.2) g/dL Albumin 1.8 L (3.9-5) g/dL Urine WBC (Auto) (0.0-6.0) /HPF Urine Creatinine (0.1-20.0) mg/dL Urine Total Protein (5-11.8) mg/dL Assessment and Plan Assessment: 1) Septic shock: present on admission with hypotension, tachycardia, increased lactate; etiology - acute peritonitis +/- UTI, already shock has resolved. 2) Acute peritonitis: from gastric content spill from dislodge PEG -CT showed pneumoperitoneum and PEG tube bumper outside of stomach. -S/P Exploratory laparotomy, repair of gastrotomy, removal of PEG tube, peritoneal lavage, temporary closure of abdomen with Abthera Vac on 09/13/17 3) WILLIAM 4) Acute encephalopathy 5) CA-UTI 6) History of Recent presumed VAP: Treated with cefepime/vano x 10 days. 7) History of Recent Acute respiratory failure: for airway protection - s/p trach 8) History of Right lower extremity chronic ischemia with short distance claudication: -S/P elective right common femoral endarterectomy with patch angioplasty, bilateral common iliac and right external artery stenting on 08/11/17 9) History of Ruptured pseudoaneurysm left groin/external iliac: -CTA showed retroperitoneal hemorrhage and bladder thickening. -S/P deployment of new Viabond stent graft across the inguinal ligament into the common femoral artery on 08/13/17. Plan: -continue levaquin, flagyl and fluconazole -obtain blood cx - has not been collected -consult Urology for barrientos exchange - it has not been done since placement Thank you for your consultation, will follow up with you. Tasia Baldwin MD Infectious Diseases Specialist [facility] M [phone] O [phone]
[2017-09-14] MEDS ORDERED: TPN ADULT 2,400 ML IV SCH (20:00)
[2017-09-14] MEDS: DIFLUCAN 200 MG/100 ML BAG IV SCH (21:29)
[2017-09-15] MEDS: HumaLOG SUB-Q SCH ×4 (00:26→18:19)
[2017-09-15] MEDS: SUBLIMAZE IV PRN (01:26)
[2017-09-15] MEDS: DUONEB *Not for PRN Use IH SCH ×3 (01:35→15:07)
[2017-09-15] MEDS: HEPARIN SUB-Q SCH ×3 (05:55→19:41)
[2017-09-15] MEDS: FLAGYL 500 MG/100 ML 500 MG/100 ML BAG IV SCH ×3 (05:55→22:23)
[2017-09-15 06:20] LABS: Hematocrit 25.8 % (35.5-45.6); Hemoglobin 8.3 gm/dl (11.8-15.2); Mean Corpuscular HGB Conc 32 % (32-34); Mean Corpuscular Hemoglobin 32 pg (28-32); Mean Corpuscular Volume 98 fl (84-94); Red Blood Count 2.62 M/mm3 (3.65-5.03)
[2017-09-15 06:33] LABS: Albumin 1.7 g/dL (3.9-5); Calcium 7.4 mg/dL (8.4-10.2)
[2017-09-15 06:39] LABS: Platelet Count 50 K/mm3 (140-440); Red Cell Distribution Width 20.1 % (13.2-15.2)
[2017-09-15 07:49] LABS: Anisocytosis 1+; Band Neutrophils # (Manual) 0.8 K/mm3; Basophils % (Manual) 0 % (0.0-1.8); Burr Cells Few; Eosinophils % (Manual) 0 % (0.0-4.3); Platelet Estimate Consistent w Auto; Poikilocytosis 1+; Schistocytes Rare; Total Cells Counted 100
--- NOTE | 2017-09-15 08:45 | Progress Note ---
Assessment and Plan [id number] hypoxemic respiratory failure secondary likely to #2. Acute peritonitis, status post dislodged PEG tube. Severe sepsis. Tracheostomy Oropharyngeal dysphagia. Acute on chronic kidney injury Anarsarca Obesity. Tobacco use disorder. Anemia that is microcytic and multifactorial. Metabolic acidosis. Hyperkalemia. Adult failure to thrive. -for OR today for abdominal wound closure - continue supplemental oxygen and wean to keep sats > 90% - continue daily SAT's and SBT's post operatively - continue enteral nutrition - continue to address VAP bundle daily - continue antibiotics and de-escalate per ID recs - remains off vasopressors - continue SCD's - continue agitation and analgesia management while avoiding benzodiazepines - Avoid nephrotoxic agents - Azotemia per nephrology team, will need supportive HD at this point Plan for HD catheter placement and supportive HD - Prognosis remains guarded overall although much improved, with risk of decompensation from a hemodynamic standpoint and even . Subjective Date of service: 09/15/17 Principal diagnosis: Septic shock. peritonitis, dislodged PEG tube, WILLIAM Interval history: Patient is seen today for: Acute Hypoxemic Respiratory Failure; Hemorrhagic Shock; WILLIAM on Dilaysis;PVD Seen and examined at bedside; 24 hour events reviewed; nursing and respiratory care staff consulted; resting peacefully in bed; remains on MVS; no emesis or overt aspiration; resting peacefully; denies acute chest pains; mild cognitive dysfunction / dementia persis Objective - Exam Narrative Exam: Constitutional: alert, appears uncomfortable, other (elderly looking slightly obese CM; normocephalic) Eyes: non-icteric ENT: oropharynx moist, other (s/p tracheostomy) to mechanical ventilatory support Neck: supple, no lymphadenopathy, other (no thyromegaly) Effort: mildly labored Ascultation: Bilateral: diminished breath sounds, rhonchi Percussion: Bilateral: dull (bases) Cardiovascular: regular rate and rhythm, other (no rubs or murmurs) Gastrointestinal: hypoactive bowel sounds, soft, non-tender, non-distended, other (midline wound vac) Integumentary: normal Extremities: no cyanosis, pink and warm, pulses normal, no ischemia or petechiae , edema Neurologic: non-focal exam (grossly), pupils equal and round, CN II-XII normal, motor strength normal and (weak), other (mild cognitive dysfunction / dementia element) Psychiatric: anxious Vital Signs - 12hr 09/14/17 09/14/17 09/14/17 20:45 21:00 21:15 Temperature Pulse Rate 77 79 75 Pulse Rate [ Anterior Bilateral Throughout] Respiratory 24 19 21 Rate Respiratory Rate [Anterior Bilateral Throughout] Blood Pressure 110/50 107/56 104/53 O2 Sat by Pulse 85 99 99 Oximetry O2 Sat by Pulse Oximetry [ Assessment] 09/14/17 09/14/17 09/14/17 21:30 21:45 22:00 Temperature Pulse Rate 86 86 77 Pulse Rate [ Anterior Bilateral Throughout] Respiratory 17 13 21 Rate Respiratory Rate [Anterior Bilateral Throughout] Blood Pressure 88/58 88/58 106/52 O2 Sat by Pulse 99 92 99 Oximetry O2 Sat by Pulse Oximetry [ Assessment] 09/14/17 09/14/17 09/14/17 22:15 22:30 22:45 Temperature Pulse Rate 80 80 81 Pulse Rate [ Anterior Bilateral Throughout] Respiratory 22 15 20 Rate Respiratory Rate [Anterior Bilateral Throughout] Blood Pressure 115/54 123/51 109/57 O2 Sat by Pulse 98 99 99 Oximetry O2 Sat by Pulse Oximetry [ Assessment] 09/14/17 09/14/17 09/14/17 23:00 23:15 23:18 Temperature Pulse Rate 94 H 79 83 Pulse Rate [ Anterior Bilateral Throughout] Respiratory 17 23 20 Rate Respiratory Rate [Anterior Bilateral Throughout] Blood Pressure 117/60 121/54 121/54 O2 Sat by Pulse 98 97 99 Oximetry O2 Sat by Pulse Oximetry [ Assessment] 09/14/17 09/14/17 09/14/17 23:29 23:31 23:32 Temperature 98.5 F Pulse Rate 90 77 Pulse Rate [ Anterior Bilateral Throughout] Respiratory 21 18 Rate Respiratory Rate [Anterior Bilateral Throughout] Blood Pressure 104/51 104/51 O2 Sat by Pulse 99 99 Oximetry O2 Sat by Pulse Oximetry [ Assessment] 09/14/17 09/14/17 09/14/17 23:40 23:45 23:57 Temperature Pulse Rate 77 74 Pulse Rate [ Anterior Bilateral Throughout] Respiratory 20 20 Rate Respiratory Rate [Anterior Bilateral Throughout] Blood Pressure 121/54 114/48 O2 Sat by Pulse 98 98 99 Oximetry O2 Sat by Pulse Oximetry [ Assessment] 09/15/17 09/15/17 09/15/17 00:00 00:15 00:31 Temperature Pulse Rate 82 87 75 Pulse Rate [ Anterior Bilateral Throughout] Respiratory 10 L 20 11 L Rate Respiratory Rate [Anterior Bilateral Throughout] Blood Pressure 114/47 119/43 124/49 O2 Sat by Pulse 83 L 96 97 Oximetry O2 Sat by Pulse Oximetry [ Assessment] 09/15/17 09/15/17 09/15/17 00:45 01:01 01:15 Temperature Pulse Rate 79 84 86 Pulse Rate [ Anterior Bilateral Throughout] Respiratory 14 11 L 12 Rate Respiratory Rate [Anterior Bilateral Throughout] Blood Pressure 107/53 105/43 104/40 O2 Sat by Pulse 98 84 94 Oximetry O2 Sat by Pulse Oximetry [ Assessment] 09/15/17 09/15/17 09/15/17 01:26 01:31 01:36 Temperature Pulse Rate 83 Pulse Rate [ 78 Anterior Bilateral Throughout] Respiratory 16 18 Rate Respiratory 18 Rate [Anterior Bilateral Throughout] Blood Pressure 97/41 O2 Sat by Pulse 91 Oximetry O2 Sat by Pulse Oximetry [ Assessment] 09/15/17 09/15/17 09/15/17 01:45 01:51 02:01 Temperature Pulse Rate 82 78 Pulse Rate [ 80 Anterior Bilateral Throughout] Respiratory 14 16 Rate Respiratory 18 Rate [Anterior Bilateral Throughout] Blood Pressure 94/47 96/38 O2 Sat by Pulse 98 97 Oximetry O2 Sat by Pulse Oximetry [ Assessment] 09/15/17 09/15/17 09/15/17 02:15 02:30 02:45 Temperature Pulse Rate 83 82 74 Pulse Rate [ Anterior Bilateral Throughout] Respiratory 18 18 18 Rate Respiratory Rate [Anterior Bilateral Throughout] Blood Pressure 96/38 115/46 103/51 O2 Sat by Pulse 99 98 99 Oximetry O2 Sat by Pulse Oximetry [ Assessment] 09/15/17 09/15/17 09/15/17 03:01 03:15 03:21 Temperature Pulse Rate 84 85 Pulse Rate [ Anterior Bilateral Throughout] Respiratory 17 14 Rate Respiratory Rate [Anterior Bilateral Throughout] Blood Pressure 180/141 180/141 O2 Sat by Pulse 99 99 Oximetry O2 Sat by Pulse 100 Oximetry [ Assessment] 09/15/17 09/15/17 09/15/17 03:31 03:33 03:45 Temperature 98.9 F Pulse Rate 75 82 Pulse Rate [ Anterior Bilateral Throughout] Respiratory 16 13 Rate Respiratory Rate [Anterior Bilateral Throughout] Blood Pressure 114/52 117/49 O2 Sat by Pulse 99 99 Oximetry O2 Sat by Pulse Oximetry [ Assessment] 09/15/17 09/15/17 09/15/17 04:00 04:01 04:04 Temperature Pulse Rate 82 80 Pulse Rate [ Anterior Bilateral Throughout] Respiratory 17 20 Rate Respiratory Rate [Anterior Bilateral Throughout] Blood Pressure 101/47 127/51 O2 Sat by Pulse 99 100 99 Oximetry O2 Sat by Pulse Oximetry [ Assessment] 09/15/17 09/15/17 09/15/17 04:15 04:30 04:45 Temperature Pulse Rate 84 75 79 Pulse Rate [ Anterior Bilateral Throughout] Respiratory 21 19 19 Rate Respiratory Rate [Anterior Bilateral Throughout] Blood Pressure 115/44 123/49 113/50 O2 Sat by Pulse 97 97 97 Oximetry O2 Sat by Pulse Oximetry [ Assessment] 09/15/17 09/15/17 09/15/17 05:01 05:15 05:31 Temperature Pulse Rate 79 82 82 Pulse Rate [ Anterior Bilateral Throughout] Respiratory 21 19 13 Rate Respiratory Rate [Anterior Bilateral Throughout] Blood Pressure 110/45 110/45 119/48 O2 Sat by Pulse 97 97 98 Oximetry O2 Sat by Pulse Oximetry [ Assessment] 09/15/17 09/15/17 09/15/17 05:45 06:01 06:15 Temperature Pulse Rate 76 70 80 Pulse Rate [ Anterior Bilateral Throughout] Respiratory 15 20 15 Rate Respiratory Rate [Anterior Bilateral Throughout] Blood Pressure 115/55 112/52 112/52 O2 Sat by Pulse 98 99 98 Oximetry O2 Sat by Pulse Oximetry [ Assessment] 09/15/17 09/15/17 06:31 06:45 Temperature Pulse Rate 82 68 Pulse Rate [ Anterior Bilateral Throughout] Respiratory 20 18 Rate Respiratory Rate [Anterior Bilateral Throughout] Blood Pressure 118/62 118/62 O2 Sat by Pulse 98 99 Oximetry O2 Sat by Pulse Oximetry [ Assessment] CBC and BMP: 09/17/17 05:30 09/17/17 05:30 ABG, PT/INR, D-dimer: ABG POC ABG pH 7.252 (7.35-7.45) L 09/15/17 04:12 POC ABG pCO2 38.4 (35-45) 09/15/17 04:12 POC ABG pO2 86 (80-105) 09/15/17 04:12 POC ABG HCO3 16.9 09/15/17 04:12 POC ABG Total CO2 18 09/15/17 04:12 POC ABG O2 Sat 95 09/15/17 04:12 Abnormal lab findings: Abnormal Labs 09/12/17 09/13/17 09/13/17 22:56 03:08 05:20 RBC 3.60 L Hgb 11.5 L Hct 34.4 L MCV 95 H RDW 19.8 H Plt Count 83 L Seg Neuts % (Manual) Lymphocytes % (Manual) 11.0 L Lymphocytes # (Manual) 0.7 L POC ABG pH 7.280 L POC ABG pCO2 46.4 H POC ABG pO2 110 H Sodium Potassium Chloride Carbon Dioxide BUN Creatinine Glucose POC Glucose 135 H Lactic Acid Calcium Phosphorus Total Bilirubin AST ALT C-Reactive Protein Total Protein Albumin Prealbumin Urine WBC (Auto) Urine Creatinine Urine Total Protein 09/13/17 09/13/17 09/13/17 05:20 14:47 14:47 RBC Hgb Hct MCV RDW Plt Count Seg Neuts % (Manual) Lymphocytes % (Manual) Lymphocytes # (Manual) POC ABG pH POC ABG pCO2 POC ABG pO2 Sodium Potassium 5.2 H Chloride 109.6 H Carbon Dioxide 20 L BUN 54 H Creatinine 2.3 H Glucose POC Glucose Lactic Acid Calcium 7.8 L Phosphorus 6.20 H Total Bilirubin AST ALT C-Reactive Protein Total Protein Albumin Prealbumin 0.050 L Urine WBC (Auto) 30.0 H Urine Creatinine 180.6 H Urine Total Protein 289 H 09/13/17 09/13/17 09/13/17 14:54 14:54 17:04 RBC Hgb Hct MCV RDW Plt Count Seg Neuts % (Manual) Lymphocytes % (Manual) Lymphocytes # (Manual) POC ABG pH POC ABG pCO2 POC ABG pO2 Sodium Potassium Chloride Carbon Dioxide BUN Creatinine Glucose POC Glucose 114 H Lactic Acid 2.20 H* Calcium Phosphorus Total Bilirubin AST ALT C-Reactive Protein 33.10 H Total Protein Albumin Prealbumin Urine WBC (Auto) Urine Creatinine Urine Total Protein 09/13/17 09/13/17 09/14/17 19:40 23:49 04:07 RBC Hgb Hct MCV RDW Plt Count Seg Neuts % (Manual) Lymphocytes % (Manual) Lymphocytes # (Manual) POC ABG pH 7.332 L POC ABG pCO2 34.3 L POC ABG pO2 76 L Sodium Potassium Chloride Carbon Dioxide BUN Creatinine Glucose POC Glucose 115 H Lactic Acid 2.20 H* Calcium Phosphorus Total Bilirubin AST ALT C-Reactive Protein Total Protein Albumin Prealbumin Urine WBC (Auto) Urine Creatinine Urine Total Protein 09/14/17 09/14/17 09/14/17 05:15 05:15 05:35 RBC Hgb Hct MCV RDW Plt Count Seg Neuts % (Manual) Lymphocytes % (Manual) Lymphocytes # (Manual) POC ABG pH POC ABG pCO2 POC ABG pO2 Sodium Potassium Chloride 107.5 H Carbon Dioxide 18 L BUN 77 H Creatinine 3.0 H Glucose 185 H POC Glucose 196 H Lactic Acid Calcium 7.3 L Phosphorus 7.80 H D Total Bilirubin 2.50 H AST 991 H ALT 1757 H C-Reactive Protein Total Protein 4.1 L Albumin 1.8 L Prealbumin Urine WBC (Auto) Urine Creatinine Urine Total Protein 09/14/17 09/14/17 09/14/17 12:17 18:08 23:55 RBC Hgb Hct MCV RDW Plt Count Seg Neuts % (Manual) Lymphocytes % (Manual) Lymphocytes # (Manual) POC ABG pH POC ABG pCO2 POC ABG pO2 Sodium Potassium Chloride Carbon Dioxide BUN Creatinine Glucose POC Glucose 212 H 242 H 231 H Lactic Acid Calcium Phosphorus Total Bilirubin AST ALT C-Reactive Protein Total Protein Albumin Prealbumin Urine WBC (Auto) Urine Creatinine Urine Total Protein 09/15/17 09/15/17 09/15/17 04:12 05:50 06:00 RBC 2.62 L Hgb 8.3 L D Hct 25.8 L D MCV 98 H RDW 20.1 H Plt Count 50 L Seg Neuts % (Manual) 82.0 H Lymphocytes % (Manual) 6.0 L Lymphocytes # (Manual) 0.5 L POC ABG pH 7.252 L POC ABG pCO2 POC ABG pO2 Sodium Potassium Chloride Carbon Dioxide BUN Creatinine Glucose POC Glucose 240 H Lactic Acid Calcium Phosphorus Total Bilirubin AST ALT C-Reactive Protein Total Protein Albumin Prealbumin Urine WBC (Auto) Urine Creatinine Urine Total Protein 09/15/17 06:00 RBC Hgb Hct MCV RDW Plt Count Seg Neuts % (Manual) Lymphocytes % (Manual) Lymphocytes # (Manual) POC ABG pH POC ABG pCO2 POC ABG pO2 Sodium 136 L Potassium Chloride Carbon Dioxide 17 L BUN 98 H Creatinine 3.9 H Glucose 207 H POC Glucose Lactic Acid Calcium 7.4 L Phosphorus 7.80 H Total Bilirubin 1.50 H AST 357 H ALT 1308 H C-Reactive Protein Total Protein 4.2 L Albumin 1.7 L Prealbumin Urine WBC (Auto) Urine Creatinine Urine Total Protein Chest x-ray: image reviewed (Bilateral pleural effusion, trach in place)
[2017-09-15] MEDS: BROVANA NEBU IH SCH ×2 (08:51→21:30)
[2017-09-15] MEDS: PULMICORT IH SCH ×2 (08:51→21:30)
[2017-09-15] MEDS: PROTONIX IV SCH (09:40)
[2017-09-15] MEDS: LANTUS SUB-Q SCH (09:40)
[2017-09-15] MEDS ORDERED: LACTATED RINGERS 1,000 ML IV SCH (10:00)
[2017-09-15] MEDS ORDERED: LEVAQUIN 500MG/100ML 500 MG/100 ML BAG IV SCH (10:00)
[2017-09-15] MEDS ORDERED: VERSED IV NR (10:00)
[2017-09-15] MEDS ORDERED: LEVAQUIN 750MG/150ML 750 MG/150 ML BAG IV SCH (10:00)
[2017-09-15] MEDS: SODIUM CHLORIDE FLUSH SYRINGE 10 ML IV SCH (10:04)
--- NOTE | 2017-09-15 10:37 | Progress Note ---
Assessment and Plan Continue IV amiodarone and plan for conversion to PO amio once pt is tolerating enteral intake. Consider addition of IV lopressor if necessary for BP optimization. Await echo. No systemic anticoagulation at this time in regards to atrial fibrillation in setting of anemia, thrombocytopenia and recent bleeding. The patient has been seen in conjunction with Dr. Pitt who agrees with the assessment and plan of care. - Patient Problems (1) Atrial fibrillation with RVR Current Visit: Yes Status: Acute (2) Acute respiratory failure with hypoxia Current Visit: Yes Status: Acute (3) Severe sepsis with septic shock Current Visit: Yes Status: Acute (4) Acute renal failure Current Visit: Yes Status: Acute Qualifiers: Acute renal failure type: with acute tubular necrosis Qualified Code(s): N17.0 - Acute kidney failure with tubular necrosis (5) Peritonitis Current Visit: Yes Status: Acute (6) Pneumoperitoneum Current Visit: Yes Status: Acute (7) PAD (peripheral artery disease) Current Visit: Yes Status: Chronic Subjective Date of service: 09/15/17 Principal diagnosis: Septic shock. peritonitis, dislodged PEG tube, WILLIAM Interval history: pt resting comfortably in bed, alert, trached. remains in AFib with CVR currently. amio gtt infusing. BPs stable with levophed gtt weaned off. family at bedside. Objective Last Vital Signs Temp 98.1 F 09/15/17 08:00 Pulse 85 09/15/17 10:01 Resp 20 09/15/17 10:01 BP 122/54 09/15/17 10:01 Pulse Ox 99 09/15/17 10:01 - Physical Examination General: No Apparent Distress HEENT: Positive: EOMI, Normocephaly, Mucus Membranes Moist Neck: Positive: neck supple, trachea midline Cardiac: Positive: irregularly irregular, S1/S2 Lungs: Positive: clear to auscultation Neuro: Positive: Grossly Intact Abdomen: Positive: Soft, Active Bowel Sounds Skin: Positive: Clear. Negative: Rash Musculoskeletal: Normal Range of Motion Extremities: Present: +1 Edema - Labs and Meds Cardiac Enzymes 09/15/17 Range/Units 06:00 AST 357 H (5-40) units/L CBC 09/15/17 Range/Units 06:00 WBC 9.1 (4.5-11.0) K/mm3 RBC 2.62 L (3.65-5.03) M/mm3 Hgb 8.3 L D (11.8-15.2) gm/dl Hct 25.8 L D (35.5-45.6) % Plt Count 50 L (140-440) K/mm3 Comprehensive Metabolic Panel 09/15/17 Range/Units 06:00 Sodium 136 L (137-145) mmol/L Potassium 4.3 (3.6-5.0) mmol/L Chloride 101.7 (98-107) mmol/L Carbon Dioxide 17 L (22-30) mmol/L BUN 98 H (9-20) mg/dL Creatinine 3.9 H (0.8-1.5) mg/dL Glucose 207 H (75-100) mg/dL Calcium 7.4 L (8.4-10.2) mg/dL AST 357 H (5-40) units/L ALT 1308 H (7-56) units/L Alkaline Phosphatase 112 (35-129) units/L Total Protein 4.2 L (6.3-8.2) g/dL Albumin 1.7 L (3.9-5) g/dL - Imaging and Cardiology Echo: pending - Telemetry EKG Rhythm: Atrial Fibrillation
--- NOTE | 2017-09-15 10:49 | Anesthesia Consultation ---
Anesthesia Consult and Med Hx Date of service: 09/15/17 (trach'd and on vent) - Pulmonary Exam CTA: Yes - Cardiac Exam Anesthetic Concerns: hx Afib, irreg; on Amiodarone gtt - Pre-Operative Health Status ASA Pre-Surgery Classification: ASA4 Proposed Anesthetic Plan: General - Pulmonary Hx Smoking: Yes Hx Sleep Apnea: Yes (on CPAP) - Cardiovascular System Hx Hypertension: Yes Hx Coronary Artery Disease: Yes (s/p [id number]) Hx Heart Attack/AMI: Yes (seen on EKG, pt states don't know when) Hx Cardia Arrhythmia: Yes (on Amiodarone gtt for A-fib) Hx Pacemaker: No Hx Internal Defibrillator: No Hx Peripheral Vascular Disease: Yes - Central Nervous System Hx Psychiatric Problems: No - Gastrointestinal Hx Ulcer: No (NGT to LIWS) - Endocrine Hx Non-Insulin Dependent Diabetes: Yes - Other Systems Hx Alcohol Use: Yes (6 pack on weekends) Hx Cancer: No Hx Obesity: Yes
--- NOTE | 2017-09-15 10:58 | Progress Note ---
Assessment and Plan Assessment: 1) Septic shock: resolved; etiology - acute peritonitis +/- UTI 2) Acute peritonitis: from gastric content spill from dislodge PEG -CT showed pneumoperitoneum and PEG tube bumper outside of stomach. -S/P Exploratory laparotomy, repair of gastrotomy, removal of PEG tube, peritoneal lavage, temporary closure of abdomen with Abthera Vac on 09/13/17 3) WILLIAM 4) Acute encephalopathy 5) CA-UTI 6) History of Recent presumed VAP: Treated with cefepime/vano x 10 days. 7) History of Recent Acute respiratory failure: for airway protection - s/p trach 8) History of Right lower extremity chronic ischemia with short distance claudication: -S/P elective right common femoral endarterectomy with patch angioplasty, bilateral common iliac and right external artery stenting on 08/11/17 9) History of Ruptured pseudoaneurysm left groin/external iliac: -CTA showed retroperitoneal hemorrhage and bladder thickening. -S/P deployment of new Viabond stent graft across the inguinal ligament into the common femoral artery on 08/13/17. Plan: -continue levaquin, flagyl and fluconazole - D3 -obtain blood cx - has not been collected -consult Urology for barrientos exchange - it has not been done since placement Thank you for your consultation, will follow up with you. Tasia Baldwin MD Infectious Diseases Specialist [facility] ([facility] M [phone] O [phone] Subjective Date of service: 09/15/17 Principal diagnosis: Septic shock. peritonitis, dislodged PEG tube, WILLIAM Interval history: Remains on the vent via trach A/C 40% p 6, alert, no fever, no pressors. On amiodarone gtt. On TPN. Microbiology: Blood cultures: 09/01 neg Urine cultures: Respiratory cultures: 09/01 usual resp rudy Antibiotics: levaquin 09/12 metronidazole 09/12 fluconazole 09/12 Objective - Exam Narrative Exam: General appearance: sedated in NAD Eyes: anicteric sclerae, moist conjunctivae; no lid-lag; PERRLA HENT: Atraumatic; oropharynx limited Lungs: CTA, with normal respiratory effort and no intercostal retractions CV: RRR, no murmurs Abdomen: Soft, midline wound with wound VAC Extremities: No peripheral edema or extremity lymphadenopathy Skin: Normal temperature, turgor and texture; no rash, ulcers or subcutaneous nodules Psych: sedated Neuro: sedated Lines: barrientos, right PICC - Constitutional Vitals: Vital Signs Temp Pulse Resp BP Pulse Ox 98.1 F 85 20 122/54 99 09/15/17 08:00 09/15/17 10:01 09/15/17 10:01 09/15/17 10:01 09/15/17 10:01 Temperature -Last 24 Hours Temperature 98.1 F Temperature 98.9 F Temperature 98.5 F Temperature 98.4 F Temperature 98.9 F Temperature 98.4 F - Labs CBC & Chem 7: 09/15/17 06:00 09/15/17 06:00 Labs: Abnormal lab results 09/14/17 09/14/17 09/14/17 Range/Units 12:17 18:08 23:55 RBC (3.65-5.03) M/mm3 Hgb (11.8-15.2) gm/dl Hct (35.5-45.6) % MCV (84-94) fl RDW (13.2-15.2) % Plt Count (140-440) K/mm3 Seg Neuts % (Manual) (40.0-70.0) % Lymphocytes % (Manual) (13.4-35.0) % Lymphocytes # (Manual) (1.2-5.4) K/mm3 POC ABG pH (7.35-7.45) Sodium (137-145) mmol/L Carbon Dioxide (22-30) mmol/L BUN (9-20) mg/dL Creatinine (0.8-1.5) mg/dL Glucose (75-100) mg/dL POC Glucose 212 H 242 H 231 H (70-105) Calcium (8.4-10.2) mg/dL Phosphorus (2.5-4.5) mg/dL Total Bilirubin (0.1-1.2) mg/dL AST (5-40) units/L ALT (7-56) units/L Total Protein (6.3-8.2) g/dL Albumin (3.9-5) g/dL 09/15/17 09/15/17 09/15/17 Range/Units 04:12 05:50 06:00 RBC 2.62 L (3.65-5.03) M/mm3 Hgb 8.3 L D (11.8-15.2) gm/dl Hct 25.8 L D (35.5-45.6) % MCV 98 H (84-94) fl RDW 20.1 H (13.2-15.2) % Plt Count 50 L (140-440) K/mm3 Seg Neuts % (Manual) 82.0 H (40.0-70.0) % Lymphocytes % (Manual) 6.0 L (13.4-35.0) % Lymphocytes # (Manual) 0.5 L (1.2-5.4) K/mm3 POC ABG pH 7.252 L (7.35-7.45) Sodium (137-145) mmol/L Carbon Dioxide (22-30) mmol/L BUN (9-20) mg/dL Creatinine (0.8-1.5) mg/dL Glucose (75-100) mg/dL POC Glucose 240 H (70-105) Calcium (8.4-10.2) mg/dL Phosphorus (2.5-4.5) mg/dL Total Bilirubin (0.1-1.2) mg/dL AST (5-40) units/L ALT (7-56) units/L Total Protein (6.3-8.2) g/dL Albumin (3.9-5) g/dL 09/15/17 Range/Units 06:00 RBC (3.65-5.03) M/mm3 Hgb (11.8-15.2) gm/dl Hct (35.5-45.6) % MCV (84-94) fl RDW (13.2-15.2) % Plt Count (140-440) K/mm3 Seg Neuts % (Manual) (40.0-70.0) % Lymphocytes % (Manual) (13.4-35.0) % Lymphocytes # (Manual) (1.2-5.4) K/mm3 POC ABG pH (7.35-7.45) Sodium 136 L (137-145) mmol/L Carbon Dioxide 17 L (22-30) mmol/L BUN 98 H (9-20) mg/dL Creatinine 3.9 H (0.8-1.5) mg/dL Glucose 207 H (75-100) mg/dL POC Glucose (70-105) Calcium 7.4 L (8.4-10.2) mg/dL Phosphorus 7.80 H (2.5-4.5) mg/dL Total Bilirubin 1.50 H (0.1-1.2) mg/dL AST 357 H (5-40) units/L ALT 1308 H (7-56) units/L Total Protein 4.2 L (6.3-8.2) g/dL Albumin 1.7 L (3.9-5) g/dL
--- NOTE | 2017-09-15 11:44 | Progress Note ---
Assessment and Plan - Peritonitis from dislodged PEG tube and sepsis s/p lap with peritoneal lavage adn repair of gastrostomy, removal of PEG tube Continue with iv levquin, Flagyl and diflucan - Abdominal distension from pneumoperitoneum resolved with exploratory lap - Dislodged PEG tube removed at lap On TPN - Acute on chronic respiratory failure On Mechanical ventilation via trach continue with bronchodilator Pulm Following -Acute renal failure due to ATN continu with volume resuscitation - Transaminasemia improving Will trend. anticipate improvement with iv hydration - Metabolic acidosis from septic shock continue with fluid resuscitation - DVT PPX with lovenox Subjective Date of service: 09/15/17 Principal diagnosis: Septic shock. peritonitis, dislodged PEG tube, WILLIAM Interval history: Pt seen and examined. s/p exploratory lap. Lying quietly in bed. Awake. Still in ICU. Discussed with nursing staff. No overnight event reported to me Objective - Constitutional Vitals: Vital Signs - 12hr 09/14/17 09/14/17 09/15/17 23:45 23:57 00:00 Temperature Pulse Rate 74 82 Pulse Rate [ Anterior Bilateral Throughout] Pulse Rate [ Bilateral Throughout] Respiratory 20 20 10 L Rate Respiratory Rate [Anterior Bilateral Throughout] Respiratory Rate [Back] Respiratory Rate [Bilateral Leg] Respiratory Rate [Bilateral Throughout] Blood Pressure 114/48 114/47 O2 Sat by Pulse 98 99 83 L Oximetry O2 Sat by Pulse Oximetry [ Assessment] 09/15/17 09/15/17 09/15/17 00:15 00:31 00:45 Temperature Pulse Rate 87 75 79 Pulse Rate [ Anterior Bilateral Throughout] Pulse Rate [ Bilateral Throughout] Respiratory 20 11 L 14 Rate Respiratory Rate [Anterior Bilateral Throughout] Respiratory Rate [Back] Respiratory Rate [Bilateral Leg] Respiratory Rate [Bilateral Throughout] Blood Pressure 119/43 124/49 107/53 O2 Sat by Pulse 96 97 98 Oximetry O2 Sat by Pulse Oximetry [ Assessment] 09/15/17 09/15/17 09/15/17 01:01 01:15 01:26 Temperature Pulse Rate 84 86 Pulse Rate [ Anterior Bilateral Throughout] Pulse Rate [ Bilateral Throughout] Respiratory 11 L 12 16 Rate Respiratory Rate [Anterior Bilateral Throughout] Respiratory Rate [Back] Respiratory Rate [Bilateral Leg] Respiratory Rate [Bilateral Throughout] Blood Pressure 105/43 104/40 O2 Sat by Pulse 84 94 Oximetry O2 Sat by Pulse Oximetry [ Assessment] 0509/15/17 09/15/17 01:31 01:36 01:45 Temperature Pulse Rate 83 82 Pulse Rate [ 78 Anterior Bilateral Throughout] Pulse Rate [ Bilateral Throughout] Respiratory 18 14 Rate Respiratory 18 Rate [Anterior Bilateral Throughout] Respiratory Rate [Back] Respiratory Rate [Bilateral Leg] Respiratory Rate [Bilateral Throughout] Blood Pressure 97/41 94/47 O2 Sat by Pulse 91 98 Oximetry O2 Sat by Pulse Oximetry [ Assessment] 09/15/17 09/15/17 09/15/17 01:51 02:01 02:15 Temperature Pulse Rate 78 83 Pulse Rate [ 80 Anterior Bilateral Throughout] Pulse Rate [ Bilateral Throughout] Respiratory 16 18 Rate Respiratory 18 Rate [Anterior Bilateral Throughout] Respiratory Rate [Back] Respiratory Rate [Bilateral Leg] Respiratory Rate [Bilateral Throughout] Blood Pressure 96/38 96/38 O2 Sat by Pulse 97 99 Oximetry O2 Sat by Pulse Oximetry [ Assessment] 09/15/17 09/15/17 09/15/17 02:30 02:45 03:01 Temperature Pulse Rate 82 74 84 Pulse Rate [ Anterior Bilateral Throughout] Pulse Rate [ Bilateral Throughout] Respiratory 18 18 17 Rate Respiratory Rate [Anterior Bilateral Throughout] Respiratory Rate [Back] Respiratory Rate [Bilateral Leg] Respiratory Rate [Bilateral Throughout] Blood Pressure 115/46 103/51 180/141 O2 Sat by Pulse 98 99 99 Oximetry O2 Sat by Pulse Oximetry [ Assessment] 09/15/17 09/15/17 09/15/17 03:15 03:21 03:31 Temperature Pulse Rate 85 75 Pulse Rate [ Anterior Bilateral Throughout] Pulse Rate [ Bilateral Throughout] Respiratory 14 16 Rate Respiratory Rate [Anterior Bilateral Throughout] Respiratory Rate [Back] Respiratory Rate [Bilateral Leg] Respiratory Rate [Bilateral Throughout] Blood Pressure 180/141 114/52 O2 Sat by Pulse 99 99 Oximetry O2 Sat by Pulse 100 Oximetry [ Assessment] 09/15/17 09/15/17 09/15/17 03:33 03:45 04:00 Temperature 98.9 F Pulse Rate 82 Pulse Rate [ Anterior Bilateral Throughout] Pulse Rate [ Bilateral Throughout] Respiratory 13 17 Rate Respiratory Rate [Anterior Bilateral Throughout] Respiratory Rate [Back] Respiratory Rate [Bilateral Leg] Respiratory Rate [Bilateral Throughout] Blood Pressure 117/49 O2 Sat by Pulse 99 99 Oximetry O2 Sat by Pulse Oximetry [ Assessment] 09/15/17 09/15/17 09/15/17 04:01 04:04 04:15 Temperature Pulse Rate 82 80 84 Pulse Rate [ Anterior Bilateral Throughout] Pulse Rate [ Bilateral Throughout] Respiratory 20 21 Rate Respiratory Rate [Anterior Bilateral Throughout] Respiratory Rate [Back] Respiratory Rate [Bilateral Leg] Respiratory Rate [Bilateral Throughout] Blood Pressure 101/47 127/51 115/44 O2 Sat by Pulse 100 99 97 Oximetry O2 Sat by Pulse Oximetry [ Assessment] 09/15/17 09/15/17 09/15/17 04:30 04:45 05:01 Temperature Pulse Rate 75 79 79 Pulse Rate [ Anterior Bilateral Throughout] Pulse Rate [ Bilateral Throughout] Respiratory 19 19 21 Rate Respiratory Rate [Anterior Bilateral Throughout] Respiratory Rate [Back] Respiratory Rate [Bilateral Leg] Respiratory Rate [Bilateral Throughout] Blood Pressure 123/49 113/50 110/45 O2 Sat by Pulse 97 97 97 Oximetry O2 Sat by Pulse Oximetry [ Assessment] 09/15/17 09/15/17 09/15/17 05:15 05:31 05:45 Temperature Pulse Rate 82 82 76 Pulse Rate [ Anterior Bilateral Throughout] Pulse Rate [ Bilateral Throughout] Respiratory 19 13 15 Rate Respiratory Rate [Anterior Bilateral Throughout] Respiratory Rate [Back] Respiratory Rate [Bilateral Leg] Respiratory Rate [Bilateral Throughout] Blood Pressure 110/45 119/48 115/55 O2 Sat by Pulse 97 98 98 Oximetry O2 Sat by Pulse Oximetry [ Assessment] 09/15/17 09/15/17 09/15/17 06:01 06:15 06:31 Temperature Pulse Rate 70 80 82 Pulse Rate [ Anterior Bilateral Throughout] Pulse Rate [ Bilateral Throughout] Respiratory 20 15 20 Rate Respiratory Rate [Anterior Bilateral Throughout] Respiratory Rate [Back] Respiratory Rate [Bilateral Leg] Respiratory Rate [Bilateral Throughout] Blood Pressure 112/52 112/52 118/62 O2 Sat by Pulse 99 98 98 Oximetry O2 Sat by Pulse Oximetry [ Assessment] 09/15/17 09/15/17 09/15/17 06:45 07:01 07:15 Temperature Pulse Rate 68 78 73 Pulse Rate [ Anterior Bilateral Throughout] Pulse Rate [ Bilateral Throughout] Respiratory 18 14 16 Rate Respiratory Rate [Anterior Bilateral Throughout] Respiratory Rate [Back] Respiratory Rate [Bilateral Leg] Respiratory Rate [Bilateral Throughout] Blood Pressure 118/62 118/62 118/62 O2 Sat by Pulse 99 99 99 Oximetry O2 Sat by Pulse Oximetry [ Assessment] 09/15/17 09/15/17 09/15/17 07:30 07:45 08:00 Temperature 98.1 F Pulse Rate 84 73 79 Pulse Rate [ Anterior Bilateral Throughout] Pulse Rate [ Bilateral Throughout] Respiratory 14 19 16 Rate Respiratory Rate [Anterior Bilateral Throughout] Respiratory Rate [Back] Respiratory Rate [Bilateral Leg] Respiratory Rate [Bilateral Throughout] Blood Pressure 125/69 125/69 112/60 O2 Sat by Pulse 99 99 100 Oximetry O2 Sat by Pulse Oximetry [ Assessment] 09/15/17 09/15/17 09/15/17 08:15 08:30 08:40 Temperature Pulse Rate 79 81 73 Pulse Rate [ 80 Anterior Bilateral Throughout] Pulse Rate [ Bilateral Throughout] Respiratory 15 20 Rate Respiratory 19 Rate [Anterior Bilateral Throughout] Respiratory Rate [Back] Respiratory Rate [Bilateral Leg] Respiratory Rate [Bilateral Throughout] Blood Pressure 125/69 118/60 143/59 O2 Sat by Pulse 97 98 99 Oximetry O2 Sat by Pulse Oximetry [ Assessment] 09/15/17 09/15/17 09/15/17 08:45 08:53 09:01 Temperature Pulse Rate 83 74 Pulse Rate [ 82 Anterior Bilateral Throughout] Pulse Rate [ 82 Bilateral Throughout] Respiratory 18 18 Rate Respiratory 20 Rate [Anterior Bilateral Throughout] Respiratory Rate [Back] Respiratory Rate [Bilateral Leg] Respiratory 80 H Rate [Bilateral Throughout] Blood Pressure 118/60 119/59 O2 Sat by Pulse 99 98 Oximetry O2 Sat by Pulse 98 Oximetry [ Assessment] 09/15/17 09/15/17 09/15/17 09:15 09:30 09:45 Temperature Pulse Rate 77 75 88 Pulse Rate [ Anterior Bilateral Throughout] Pulse Rate [ Bilateral Throughout] Respiratory 16 17 16 Rate Respiratory Rate [Anterior Bilateral Throughout] Respiratory Rate [Back] Respiratory Rate [Bilateral Leg] Respiratory Rate [Bilateral Throughout] Blood Pressure 119/59 121/64 121/64 O2 Sat by Pulse 99 100 99 Oximetry O2 Sat by Pulse Oximetry [ Assessment] 09/15/17 09/15/17 09/15/17 10:00 10:01 10:15 Temperature Pulse Rate 76 85 79 Pulse Rate [ Anterior Bilateral Throughout] Pulse Rate [ Bilateral Throughout] Respiratory 20 19 Rate Respiratory Rate [Anterior Bilateral Throughout] Respiratory 16 Rate [Back] Respiratory 16 Rate [Bilateral Leg] Respiratory Rate [Bilateral Throughout] Blood Pressure 122/54 122/54 O2 Sat by Pulse 99 99 Oximetry O2 Sat by Pulse Oximetry [ Assessment] 09/15/17 09/15/1718 10:31 10:45 11:01 Temperature Pulse Rate 80 82 81 Pulse Rate [ Anterior Bilateral Throughout] Pulse Rate [ Bilateral Throughout] Respiratory 18 14 16 Rate Respiratory Rate [Anterior Bilateral Throughout] Respiratory Rate [Back] Respiratory Rate [Bilateral Leg] Respiratory Rate [Bilateral Throughout] Blood Pressure 129/62 129/62 124/57 O2 Sat by Pulse 99 99 99 Oximetry O2 Sat by Pulse Oximetry [ Assessment] General appearance: Present: no acute distress, well-nourished, other (on mechanical ventilation via trach) - EENT Eyes: PERRL, EOM intact - Neck Neck: supple, normal ROM - Respiratory Respiratory effort: normal Respiratory: bilateral: CTA - Cardiovascular Rhythm: regular Heart Sounds: Present: S1 & S2. Absent: gallop, rub Extremities: pulses intact, No edema, normal color, Full ROM - Gastrointestinal General gastrointestinal: Present: soft, non-tender, non-distended, normal bowel sounds - Integumentary Integumentary: clear, warm, dry - Musculoskeletal Musculoskeletal: generalized weakness, other (intubated via trach) - Neurologic Neurologic: moves all extremities - Psychiatric Psychiatric: cooperative - Labs CBC & Chem 7: 09/15/17 06:00 09/15/17 06:00 Labs: Abnormal lab results 09/14/17 09/14/17 09/14/17 Range/Units 12:17 18:08 23:55 RBC (3.65-5.03) M/mm3 Hgb (11.8-15.2) gm/dl Hct (35.5-45.6) % MCV (84-94) fl RDW (13.2-15.2) % Plt Count (140-440) K/mm3 Seg Neuts % (Manual) (40.0-70.0) % Lymphocytes % (Manual) (13.4-35.0) % Lymphocytes # (Manual) (1.2-5.4) K/mm3 POC ABG pH (7.35-7.45) Sodium (137-145) mmol/L Carbon Dioxide (22-30) mmol/L BUN (9-20) mg/dL Creatinine (0.8-1.5) mg/dL Glucose (75-100) mg/dL POC Glucose 212 H 242 H 231 H (70-105) Calcium (8.4-10.2) mg/dL Phosphorus (2.5-4.5) mg/dL Total Bilirubin (0.1-1.2) mg/dL AST (5-40) units/L ALT (7-56) units/L Total Protein (6.3-8.2) g/dL Albumin (3.9-5) g/dL 09/15/17 09/15/17 09/15/17 Range/Units 04:12 05:50 06:00 RBC 2.62 L (3.65-5.03) M/mm3 Hgb 8.3 L D (11.8-15.2) gm/dl Hct 25.8 L D (35.5-45.6) % MCV 98 H (84-94) fl RDW 20.1 H (13.2-15.2) % Plt Count 50 L (140-440) K/mm3 Seg Neuts % (Manual) 82.0 H (40.0-70.0) % Lymphocytes % (Manual) 6.0 L (13.4-35.0) % Lymphocytes # (Manual) 0.5 L (1.2-5.4) K/mm3 POC ABG pH 7.252 L (7.35-7.45) Sodium (137-145) mmol/L Carbon Dioxide (22-30) mmol/L BUN (9-20) mg/dL Creatinine (0.8-1.5) mg/dL Glucose (75-100) mg/dL POC Glucose 240 H (70-105) Calcium (8.4-10.2) mg/dL Phosphorus (2.5-4.5) mg/dL Total Bilirubin (0.1-1.2) mg/dL AST (5-40) units/L ALT (7-56) units/L Total Protein (6.3-8.2) g/dL Albumin (3.9-5) g/dL 09/15/17 Range/Units 06:00 RBC (3.65-5.03) M/mm3 Hgb (11.8-15.2) gm/dl Hct (35.5-45.6) % MCV (84-94) fl RDW (13.2-15.2) % Plt Count (140-440) K/mm3 Seg Neuts % (Manual) (40.0-70.0) % Lymphocytes % (Manual) (13.4-35.0) % Lymphocytes # (Manual) (1.2-5.4) K/mm3 POC ABG pH (7.35-7.45) Sodium 136 L (137-145) mmol/L Carbon Dioxide 17 L (22-30) mmol/L BUN 98 H (9-20) mg/dL Creatinine 3.9 H (0.8-1.5) mg/dL Glucose 207 H (75-100) mg/dL POC Glucose (70-105) Calcium 7.4 L (8.4-10.2) mg/dL Phosphorus 7.80 H (2.5-4.5) mg/dL Total Bilirubin 1.50 H (0.1-1.2) mg/dL AST 357 H (5-40) units/L ALT 1308 H (7-56) units/L Total Protein 4.2 L (6.3-8.2) g/dL Albumin 1.7 L (3.9-5) g/dL
[2017-09-15] MEDS ORDERED: DIPRIVAN 10 MG/ML IV ONE (12:08)
[2017-09-15] MEDS ORDERED: ePHEDrine SULFATE ONE (12:33)
--- NOTE | 2017-09-15 12:50 | Anesthesia Day of Surgery ---
Anesthesia Day of Surgery - Day of Surgery Patient Examined: Yes Patient H&P Reviewed: Yes Patient is NPO: Yes
[2017-09-15] MEDS ORDERED: NACL 0.9% IR ONE ×2 (13:07)
[2017-09-15] MEDS ORDERED: ZEMURON IV ONE (14:05)
[2017-09-15] MEDS ORDERED: ZOFRAN ONE (14:05)
[2017-09-15] MEDS ORDERED: NEO SYNEPHRINE/NS Syringe(OR USE) IV ONE (14:05)
[2017-09-15] MEDS ORDERED: Vasostrict ONE (14:23)
[2017-09-15] MEDS ORDERED: SUBLIMAZE ONE (14:33)
--- NOTE | 2017-09-15 14:38 | Post Operative Note ---
Pre-op diagnosis: open abdomen, transaminitis, intraabdominal infection Post-op diagnosis: same Findings: 1. green discoloration of gallbladder wall, appeared unhealthy. 2. distended loops of small bowel and stomach\ 3. prior stomach repair intact Procedure: Exploratory laparotomy, peritoneal lavage, cholecystectomy, placement of gastrojejunal feeding tube, closure of abdomen. Anesthesia: MARICEL Surgeon: REHANA MAHMOOD Audio Director: LAUREN SILVEIRA Estimated blood loss: minimal Pathology: list (gallbladder) Specimen disposition: to lab Condition: stable Disposition: ICU
--- NOTE | 2017-09-15 15:42 | Operative Report ---
Operative Report Operative Report: Date: 09/15/17 Pre-op diagnosis: open abdomen, transaminitis, intraabdominal infection Post-op diagnosis: same Findings: 1. green discoloration of gallbladder wall, appeared gangrenous. 2. distended loops of small bowel and stomach\ 3. prior stomach repair intact Procedure: Exploratory laparotomy, peritoneal lavage, cholecystectomy, placement of gastrojejunal feeding tube, closure of abdomen. Anesthesia: MARICEL Surgeon: REHANA MAHMOOD Generator Repairer: LAUREN SILVEIRA Estimated blood loss: minimal Pathology: list (gallbladder) Specimen disposition: to lab Condition: stable Disposition: ICU HPI an indication: Patient is a 66-year-old male who was taken to the operating room on 09/12/17 for exploratory laparotomy, peritoneal lavage, repair of gastrotomy, temporary closure of abdomen with Apthera VAC. The patient was in septic shock, with pneumoperitoneum from a dislodged PEG tube, and intra- abdominal tube feeding. The patient was resuscitated and weaned off of pressors postoperatively. During the index surgery, the gallbladder did not appear to be healthy and a portion of the wall appeared gangrenous. In addition , his LFTs were elevated. The patient was successfully weaned off of pressors and the decision was made to take him back to the operating room for abdominal washout, cholecystectomy, placement of gastrojejunostomy tube, and closure of abdomen. All risks, benefits, alternatives were discussed with the patient's and questions answered. Consent was signed and placed on chart. Procedure in detail: The patient was identified in the ICU bed and taken straight back to the operating room and placed on the operating room table in supine position. After anesthesia was induced, Dr Chacon (urology) remove the Medina catheter, performed a cystoscopy and placed a coud catheter. Please see separate report for details. The abdominal wound VAC dressing was removed. The abdomen was prepped and draped in the usual sterile fashion and timeout was performed. The Prolene fascial sutures were cut and removed. The intra-abdominal portion of the Apthera VAC was removed and discarded. The abdomen was then inspected. There was a small amount of free abdominal fluid which is serous in nature. A Bookwalter was placed for retraction. We first turned our attention to the gallbladder. The gallbladder was dissected from the liver bed in a dome down fashion using electrocautery. Once the gallbladder neck was encountered the cystic artery and duct were dissected using a right angle. First the cystic artery was clamped between 2 right angles and transected using Metzenbaum scissors. This was tied off using a 3-0 silk suture. The cystic duct was clamped between 2 right angles and transected using the Metzenbaum scissor. This was suture ligated using a 2-0 silk suture ligature. The gallbladder was passed off the table as a specimen. The liver bed was inspected and there was no evidence of bleeding. We then turned our attention to placing the feeding tube. The prior gastric repair was inspected and intact. A skin incision was made in the left upper quadrant and the feeding tube was grasped and brought through the abdominal wall using a tonsil. An area of the stomach at the greater curvature was selected for placement of the gastrojejunal tube. A inner and outer pursestring suture was made using 3-0 silk sutures at the greater curvature of the stomach at the intended site of the feeding tube. The tails were situated at the 3o' clock and 9 o'clock position with needles attached. The stomach was incised at the center of the pursestring suture and the gastrojejunal feeding tube was placed through this gastrotomy. The tube was fed into the duodenum and into the jejunum under palpation. Tube tip was palpable in the jejunum. The inner and outer pursestring sutures were tied down in this order. The gastric balloon was filled to 10 mL of sterile water and palpated. This was pulled back until it was flush with the gastric wall. A gastric anchoring suture was placed at the 12 o'clock position and affixed to the peritoneum and tied down. The sutures at the 3:00 and 9:00 positions were also affixed to the peritoneum and tied down. The stomach laid flush against the peritoneum in the left upper quadrant without tension. The gastrostomy tube bumper was at 4 cm at the skin and sutured to the skin using 2-0 Prolene sutures. The abdomen was then copiously irrigated with warm saline. Irrigant returned clear. Careful inspection of the abdomen showed hemostasis. Inspection of the abdomen did not reveal any retained foreign bodies. We then proceeded with fascial closure. The midline fascia was closed with looped PDS 2 in the usual fashion. The subcutaneous tissue was irrigated and the skin closed using arpan. The skin was cleansed with a wet and dry dressing. The incision was covered with 4 x 4 fluff gauze, ABDs, Medipore tape. At the end of the case, all sponge, instrument, sharp counts were correct 2. The patient was taken directly to ICU in stable condition.
[2017-09-15] MEDS ORDERED: NACL 0.9% 500 ML 500 ML IV ONE (16:07)
[2017-09-15] MEDS: LEVOPHED DRIP 4 MG/NS 250 ML 4 MG/250 ML BAG IV SCH (17:20)
[2017-09-15] MEDS ORDERED: NACL 0.9% 1000 ML 1,000 ML IV SCH (18:00)
[2017-09-15 18:22] LABS: Hemoglobin 8.8 gm/dl (11.8-15.2); Mean Corpuscular HGB Conc 31 % (32-34); Mean Corpuscular Hemoglobin 30 pg (28-32); Mean Corpuscular Volume 100 fl (84-94); Red Blood Count 2.91 M/mm3 (3.65-5.03)
[2017-09-15 18:24] LABS: Red Cell Distribution Width 20.6 % (13.2-15.2)
[2017-09-15] MEDS: CORDARONE 900 MG in D5W 482 ML IV SCH (18:30)
[2017-09-15 18:39] LABS: Calcium 7.3 mg/dL (8.4-10.2)
[2017-09-15 19:25] LABS: Platelet Count 46 K/mm3 (140-440)
[2017-09-15] MEDS ORDERED: TPN ADULT 2,400 ML IV SCH (20:00)
--- NOTE | 2017-09-15 20:29 | Progress Note ---
Assessment and Plan - Patient Problems (1) Acute renal failure due to tubular necrosis Current Visit: No Status: Acute Plan to address problem: Acute tubular necrosis secondary to hypotension/sepsis. Kidney function still worsening. Continue volume resuscitation though caution as patient is getting volume overloaded. Follow-up electrolytes and renal function. Unfortunately if continues to worsen, will need to start dialysis. I discussed with the nurse at bedside. I also called patient's and updated her about his condition and possible need for dialysis tomorrow if continues to worsen. She expressed understanding (2) Severe sepsis with septic shock Current Visit: Yes Status: Acute Plan to address problem: Continue volume resuscitation, antibiotics, vasopressors and wean to a mean arterial pressure more than 65 mmHg.Follow up Cultures (3) Hyperkalemia Current Visit: Yes Status: Acute Plan to address problem: Potassium is improved. Continue to follow up (4) Acute respiratory failure with hypoxia Current Visit: Yes Status: Acute Plan to address problem: Ventilator management by pulmonary (5) Peritonitis Current Visit: Yes Status: Acute Plan to address problem: S/p Exploratory laparotomy, peritoneal lavage, cholecystectomy, placement of gastrojejunal feeding tube, closure of abdomen. Continue antibiotics Subjective Date of service: 09/15/17 Principal diagnosis: Septic shock. peritonitis, dislodged PEG tube, WILLIAM Interval history: Patient seen lying in bed in ICU. He is intubated on the ventilator, sedated. Events noted. Exploratory laparotomy, peritoneal lavage, cholecystectomy, placement of gastrojejunal feeding tube, closure of abdomen. Objective - Exam Narrative Exam: Middle-aged female lying in bed in no acute distress HEENT: NCAT, pink clear oropharynx Neck: Supple, no venous distention, trach intact on ventilator CVS: S1S2 RRR with no murmur, rub or gallop Chest: Rhonchi bilaterally Abdomen: Distended, soft, tender, bowel sounds diminished, dressings intact, edema trunk Extremities: 3+ Pitting edema, heel protectors intact, Skin: warm and dry Genitourinary deferred, [place] catheter draining clear urine Neuro: Drowsy, - Vital Signs Vital signs: Vital Signs - 12hr 09/15/17 09/15/17 09/15/17 08:15 08:30 08:40 Temperature Pulse Rate 79 81 73 Pulse Rate [ 80 Anterior Bilateral Throughout] Pulse Rate [ Bilateral Throughout] Respiratory 15 20 Rate Respiratory 19 Rate [Anterior Bilateral Throughout] Respiratory Rate [Back] Respiratory Rate [Bilateral Leg] Respiratory Rate [Bilateral Throughout] Blood Pressure 125/69 118/60 143/59 O2 Sat by Pulse 97 98 99 Oximetry O2 Sat by Pulse Oximetry [ Assessment] 09/15/17 09/15/17 09/15/17 08:45 08:53 09:01 Temperature Pulse Rate 83 74 Pulse Rate [ 82 Anterior Bilateral Throughout] Pulse Rate [ 82 Bilateral Throughout] Respiratory 18 18 Rate Respiratory 20 Rate [Anterior Bilateral Throughout] Respiratory Rate [Back] Respiratory Rate [Bilateral Leg] Respiratory 80 H Rate [Bilateral Throughout] Blood Pressure 118/60 119/59 O2 Sat by Pulse 99 98 Oximetry O2 Sat by Pulse 98 Oximetry [ Assessment] 09/15/17 09/15/17 09/15/17 09:15 09:30 09:45 Temperature Pulse Rate 77 75 88 Pulse Rate [ Anterior Bilateral Throughout] Pulse Rate [ Bilateral Throughout] Respiratory 16 17 16 Rate Respiratory Rate [Anterior Bilateral Throughout] Respiratory Rate [Back] Respiratory Rate [Bilateral Leg] Respiratory Rate [Bilateral Throughout] Blood Pressure 119/59 121/64 121/64 O2 Sat by Pulse 99 100 99 Oximetry O2 Sat by Pulse Oximetry [ Assessment] 09/15/17 09/15/17 09/15/17 10:00 10:01 10:15 Temperature Pulse Rate 76 85 79 Pulse Rate [ Anterior Bilateral Throughout] Pulse Rate [ Bilateral Throughout] Respiratory 20 19 Rate Respiratory Rate [Anterior Bilateral Throughout] Respiratory 16 Rate [Back] Respiratory 16 Rate [Bilateral Leg] Respiratory Rate [Bilateral Throughout] Blood Pressure 122/54 122/54 O2 Sat by Pulse 99 99 Oximetry O2 Sat by Pulse Oximetry [ Assessment] 09/15/17 09/15/17 09/15/17 10:31 10:45 11:01 Temperature Pulse Rate 80 82 81 Pulse Rate [ Anterior Bilateral Throughout] Pulse Rate [ Bilateral Throughout] Respiratory 18 14 16 Rate Respiratory Rate [Anterior Bilateral Throughout] Respiratory Rate [Back] Respiratory Rate [Bilateral Leg] Respiratory Rate [Bilateral Throughout] Blood Pressure 129/62 129/62 124/57 O2 Sat by Pulse 99 99 99 Oximetry O2 Sat by Pulse Oximetry [ Assessment] 09/15/17 09/15/17 09/15/17 11:15 11:30 14:55 Temperature 98.5 F Pulse Rate 88 86 104 H Pulse Rate [ Anterior Bilateral Throughout] Pulse Rate [ Bilateral Throughout] Respiratory 17 15 14 Rate Respiratory Rate [Anterior Bilateral Throughout] Respiratory Rate [Back] Respiratory Rate [Bilateral Leg] Respiratory Rate [Bilateral Throughout] Blood Pressure 129/62 126/62 126/62 O2 Sat by Pulse 99 99 97 Oximetry O2 Sat by Pulse Oximetry [ Assessment] 09/15/17 09/15/17 09/15/17 15:00 15:02 15:07 Temperature Pulse Rate 110 H 106 H Pulse Rate [ 106 H Anterior Bilateral Throughout] Pulse Rate [ Bilateral Throughout] Respiratory 14 Rate Respiratory 14 Rate [Anterior Bilateral Throughout] Respiratory Rate [Back] Respiratory Rate [Bilateral Leg] Respiratory Rate [Bilateral Throughout] Blood Pressure 101/53 101/53 O2 Sat by Pulse 93 94 Oximetry O2 Sat by Pulse Oximetry [ Assessment] 09/15/17 09/15/17 09/15/17 15:16 15:20 15:30 Temperature Pulse Rate 110 H 114 H Pulse Rate [ 113 H Anterior Bilateral Throughout] Pulse Rate [ Bilateral Throughout] Respiratory 14 14 Rate Respiratory 17 Rate [Anterior Bilateral Throughout] Respiratory Rate [Back] Respiratory Rate [Bilateral Leg] Respiratory Rate [Bilateral Throughout] Blood Pressure 101/53 108/61 O2 Sat by Pulse 96 95 Oximetry O2 Sat by Pulse Oximetry [ Assessment] 09/15/17 09/15/17 09/15/17 15:46 16:00 16:16 Temperature 97.6 F Pulse Rate 105 H 101 H 104 H Pulse Rate [ Anterior Bilateral Throughout] Pulse Rate [ Bilateral Throughout] Respiratory 14 15 14 Rate Respiratory Rate [Anterior Bilateral Throughout] Respiratory Rate [Back] Respiratory Rate [Bilateral Leg] Respiratory Rate [Bilateral Throughout] Blood Pressure 108/61 109/45 109/45 O2 Sat by Pulse 96 96 95 Oximetry O2 Sat by Pulse Oximetry [ Assessment] 09/15/17 09/15/17 09/15/17 16:30 16:46 17:00 Temperature Pulse Rate 101 H 96 H 99 H Pulse Rate [ Anterior Bilateral Throughout] Pulse Rate [ Bilateral Throughout] Respiratory 14 14 14 Rate Respiratory Rate [Anterior Bilateral Throughout] Respiratory Rate [Back] Respiratory Rate [Bilateral Leg] Respiratory Rate [Bilateral Throughout] Blood Pressure 99/48 84/44 92/44 O2 Sat by Pulse 95 96 96 Oximetry O2 Sat by Pulse Oximetry [ Assessment] 09/15/17 09/15/17 09/15/17 17:16 17:30 17:45 Temperature Pulse Rate 96 H 94 H 88 Pulse Rate [ Anterior Bilateral Throughout] Pulse Rate [ Bilateral Throughout] Respiratory 14 15 14 Rate Respiratory Rate [Anterior Bilateral Throughout] Respiratory Rate [Back] Respiratory Rate [Bilateral Leg] Respiratory Rate [Bilateral Throughout] Blood Pressure 92/44 104/57 113/54 O2 Sat by Pulse 96 97 96 Oximetry O2 Sat by Pulse Oximetry [ Assessment] 09/15/17 09/15/17 09/15/17 18:00 18:16 18:30 Temperature Pulse Rate 91 H 94 H 89 Pulse Rate [ Anterior Bilateral Throughout] Pulse Rate [ Bilateral Throughout] Respiratory 14 14 14 Rate Respiratory Rate [Anterior Bilateral Throughout] Respiratory Rate [Back] Respiratory Rate [Bilateral Leg] Respiratory Rate [Bilateral Throughout] Blood Pressure 102/50 111/51 109/56 O2 Sat by Pulse 96 97 97 Oximetry O2 Sat by Pulse Oximetry [ Assessment] 09/15/17 09/15/17 09/15/17 18:45 19:00 19:15 Temperature Pulse Rate 84 93 H 81 Pulse Rate [ Anterior Bilateral Throughout] Pulse Rate [ Bilateral Throughout] Respiratory 14 15 14 Rate Respiratory Rate [Anterior Bilateral Throughout] Respiratory Rate [Back] Respiratory Rate [Bilateral Leg] Respiratory Rate [Bilateral Throughout] Blood Pressure 109/53 99/52 103/55 O2 Sat by Pulse 98 97 98 Oximetry O2 Sat by Pulse Oximetry [ Assessment] 09/15/17 19:30 Temperature Pulse Rate 86 Pulse Rate [ Anterior Bilateral Throughout] Pulse Rate [ Bilateral Throughout] Respiratory 18 Rate Respiratory Rate [Anterior Bilateral Throughout] Respiratory Rate [Back] Respiratory Rate [Bilateral Leg] Respiratory Rate [Bilateral Throughout] Blood Pressure 103/55 O2 Sat by Pulse 97 Oximetry O2 Sat by Pulse Oximetry [ Assessment] - Lab 09/15/17 17:52 09/15/17 17:52 Most recent lab results Calcium 7.3 mg/dL (8.4-10.2) L 09/15/17 17:52 Phosphorus 7.80 mg/dL (2.5-4.5) H 09/15/17 06:00 Magnesium 2.30 mg/dL (1.7-2.3) 09/15/17 06:00 Urine Creatinine 180.6 mg/dL (0.1-20.0) H 09/13/17 14:47 Urine Sodium 29 mmol/L 09/13/17 14:47 Urine Total Protein 289 mg/dL (5-11.8) H 09/13/17 14:47
[2017-09-15 20:41] LABS: INR 1.26 (0.87-1.13)
[2017-09-15 20:42] LABS: Partial Thromboplastin Time 38.7 Sec. (24.2-36.6)
[2017-09-15] MEDS: DIFLUCAN 200 MG/100 ML BAG IV SCH (22:24)
[2017-09-16] MEDS: HEPARIN SUB-Q SCH (00:28)
[2017-09-16] MEDS: SODIUM CHLORIDE FLUSH SYRINGE 10 ML IV SCH ×2 (00:30→10:30)
[2017-09-16] MEDS: HumaLOG SUB-Q SCH ×4 (01:00→18:45)
[2017-09-16] MEDS: DUONEB *Not for PRN Use IH SCH ×3 (04:47→16:24)
[2017-09-16] MEDS: FLAGYL 500 MG/100 ML 500 MG/100 ML BAG IV SCH ×3 (05:25→22:33)
--- NOTE | 2017-09-16 05:52 | XRay Report ---
FINAL REPORT EXAM: XR CHEST 1V AP HISTORY: respiratory failure COMPARISON: September 01, 2017. FINDINGS: Frontal view(s) of the chest obtained. Stable cardiac enlargement. Right PICC line remains in place. Right IJ introducer has been removed. Tracheostomy tube remains. Hazy opacities mid to lower lungs with small to moderate effusions concerning for mild to moderate CHF new from prior study. No pneumothorax. IMPRESSION: Mild to moderate CHF.
[2017-09-16 07:49] LABS: Hematocrit 27.1 % (35.5-45.6); Hemoglobin 8.8 gm/dl (11.8-15.2); Mean Corpuscular HGB Conc 32 % (32-34); Mean Corpuscular Hemoglobin 32 pg (28-32); Mean Corpuscular Volume 99 fl (84-94); Red Blood Count 2.75 M/mm3 (3.65-5.03)
[2017-09-16 08:00] LABS: Albumin 1.8 g/dL (3.9-5); Calcium 7.6 mg/dL (8.4-10.2)
[2017-09-16 08:01] LABS: Platelet Count 42 K/mm3 (140-440); Red Cell Distribution Width 20.2 % (13.2-15.2)
[2017-09-16] MEDS: PULMICORT IH SCH ×2 (08:10→21:04)
[2017-09-16] MEDS: BROVANA NEBU IH SCH ×2 (08:10→21:04)
--- NOTE | 2017-09-16 08:31 | Progress Note ---
Assessment and Plan Sepsis with septic shock Continue with iv antibiotic per ID discussed with ID. 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 anticipate improvement with iv hydration - Metabolic acidosis from septic shock continue with fluid resuscitation - DVT PPX with lovenox Subjective Date of service: 09/16/17 Principal diagnosis: Septic shock. peritonitis, dislodged PEG tube, WILLIAM Interval history: Pt seen and examined. s/p Closure of abdominal wound with cholecyctectomy of gangrenous gall bladder. Lying quietly in bed. Still in ICU. Discussed with nursing staff. No overnight event reported to me Objective - Exam Narrative Exam: Constitutional: On mechanical ventilation through tracheostomy. Head: Normocephalic atraumatic Eyes: Pupils are equal round and reactive to light Nose: No enlarged turbinates, no septal deviation. Mouth: Moist mucous membranes. Neck: Supple no thyromegaly. No bruit. No JVD Heart: Regular rate and rhythm, S1-S2 abnormal. No rubs murmurs or gallop Lungs: Decreased breath sound bilaterally No rhonchi Abdomen: Soft, Dry surgical wound dressing nontender. Bowel sound are present. Extremities: No edema no cyanosis and no clubbing. Neuro: Alert oriented Oriented x3. No focal sensory or motor deficit. Skin: No rashes no hyperemic spots Psychiatry: Euthymic. Calm. - Constitutional Vitals: Vital Signs - 12hr 09/15/17 09/15/17 09/15/17 20:30 20:45 21:00 Temperature Pulse Rate 90 79 96 H Pulse Rate [ Anterior Bilateral Throughout] Respiratory 14 14 15 Rate Respiratory Rate [Anterior Bilateral Throughout] Blood Pressure 111/52 105/56 98/60 O2 Sat by Pulse 98 99 99 Oximetry O2 Sat by Pulse Oximetry [ Assessment] 09/15/17 09/15/17 09/15/17 21:15 21:30 21:45 Temperature Pulse Rate 86 82 83 Pulse Rate [ 88 Anterior Bilateral Throughout] Respiratory 16 14 15 Rate Respiratory 14 Rate [Anterior Bilateral Throughout] Blood Pressure 93/55 104/51 97/47 O2 Sat by Pulse 99 98 99 Oximetry O2 Sat by Pulse Oximetry [ Assessment] 09/15/17 09/15/17 09/15/17 22:00 22:15 22:30 Temperature Pulse Rate 85 82 86 Pulse Rate [ Anterior Bilateral Throughout] Respiratory 15 14 16 Rate Respiratory Rate [Anterior Bilateral Throughout] Blood Pressure 105/55 110/58 115/61 O2 Sat by Pulse 98 97 98 Oximetry O2 Sat by Pulse Oximetry [ Assessment] 09/15/17 09/15/17 09/15/17 22:46 23:00 23:05 Temperature 97.4 F L Pulse Rate 82 71 Pulse Rate [ Anterior Bilateral Throughout] Respiratory 15 14 Rate Respiratory Rate [Anterior Bilateral Throughout] Blood Pressure 115/49 122/49 O2 Sat by Pulse 98 98 Oximetry O2 Sat by Pulse Oximetry [ Assessment] 09/15/17 09/15/17 09/15/17 23:15 23:30 23:36 Temperature Pulse Rate 80 85 74 Pulse Rate [ Anterior Bilateral Throughout] Respiratory 13 14 14 Rate Respiratory Rate [Anterior Bilateral Throughout] Blood Pressure 136/52 106/54 106/54 O2 Sat by Pulse 98 99 98 Oximetry O2 Sat by Pulse Oximetry [ Assessment] 09/15/17 09/16/17 09/16/17 23:46 00:00 00:16 Temperature Pulse Rate 70 86 79 Pulse Rate [ Anterior Bilateral Throughout] Respiratory 14 14 14 Rate Respiratory Rate [Anterior Bilateral Throughout] Blood Pressure 104/48 106/55 103/55 O2 Sat by Pulse 98 97 98 Oximetry O2 Sat by Pulse Oximetry [ Assessment] 09/16/17 09/16/17 09/16/17 00:30 00:37 00:45 Temperature Pulse Rate 82 82 85 Pulse Rate [ Anterior Bilateral Throughout] Respiratory 15 14 Rate Respiratory Rate [Anterior Bilateral Throughout] Blood Pressure 92/56 92/56 99/53 O2 Sat by Pulse 98 97 97 Oximetry O2 Sat by Pulse Oximetry [ Assessment] 09/16/17 09/16/17 09/16/17 01:00 01:15 01:30 Temperature Pulse Rate 86 81 81 Pulse Rate [ Anterior Bilateral Throughout] Respiratory 14 14 15 Rate Respiratory Rate [Anterior Bilateral Throughout] Blood Pressure 100/59 106/52 97/43 O2 Sat by Pulse 97 97 98 Oximetry O2 Sat by Pulse Oximetry [ Assessment] 09/16/17 09/16/17 09/16/17 01:45 02:00 02:16 Temperature Pulse Rate 92 H 80 82 Pulse Rate [ Anterior Bilateral Throughout] Respiratory 20 15 14 Rate Respiratory Rate [Anterior Bilateral Throughout] Blood Pressure 108/64 104/53 106/46 O2 Sat by Pulse 98 97 99 Oximetry O2 Sat by Pulse Oximetry [ Assessment] 09/16/17 09/16/17 09/16/17 02:30 02:46 03:00 Temperature Pulse Rate 75 93 H 89 Pulse Rate [ Anterior Bilateral Throughout] Respiratory 15 15 20 Rate Respiratory Rate [Anterior Bilateral Throughout] Blood Pressure 105/48 108/44 102/53 O2 Sat by Pulse 99 99 98 Oximetry O2 Sat by Pulse 100 Oximetry [ Assessment] 09/16/17 09/16/17 09/16/17 03:15 03:26 03:30 Temperature 98.8 F Pulse Rate 83 72 Pulse Rate [ Anterior Bilateral Throughout] Respiratory 14 15 Rate Respiratory Rate [Anterior Bilateral Throughout] Blood Pressure 102/53 101/56 O2 Sat by Pulse 100 99 Oximetry O2 Sat by Pulse Oximetry [ Assessment] 09/16/17 09/16/17 09/16/17 03:45 04:00 04:16 Temperature Pulse Rate 80 67 77 Pulse Rate [ Anterior Bilateral Throughout] Respiratory 19 17 16 Rate Respiratory Rate [Anterior Bilateral Throughout] Blood Pressure 106/52 104/51 102/48 O2 Sat by Pulse 99 99 99 Oximetry O2 Sat by Pulse Oximetry [ Assessment] 09/16/17 09/16/17 09/16/17 04:30 04:45 04:47 Temperature Pulse Rate 75 79 Pulse Rate [ 88 Anterior Bilateral Throughout] Respiratory 14 18 Rate Respiratory 16 Rate [Anterior Bilateral Throughout] Blood Pressure 104/51 98/50 O2 Sat by Pulse 99 98 Oximetry O2 Sat by Pulse Oximetry [ Assessment] 09/16/17 09/16/17 09/16/17 05:00 05:16 05:30 Temperature Pulse Rate 96 H 93 H 75 Pulse Rate [ Anterior Bilateral Throughout] Respiratory 16 17 15 Rate Respiratory Rate [Anterior Bilateral Throughout] Blood Pressure 88/54 103/49 108/48 O2 Sat by Pulse 99 98 99 Oximetry O2 Sat by Pulse Oximetry [ Assessment] 09/16/17 09/16/17 09/16/17 05:45 06:00 06:15 Temperature Pulse Rate 87 81 87 Pulse Rate [ Anterior Bilateral Throughout] Respiratory 18 15 16 Rate Respiratory Rate [Anterior Bilateral Throughout] Blood Pressure 88/55 100/49 94/46 O2 Sat by Pulse 98 99 100 Oximetry O2 Sat by Pulse Oximetry [ Assessment] 09/16/17 06:30 Temperature Pulse Rate 83 Pulse Rate [ Anterior Bilateral Throughout] Respiratory 16 Rate Respiratory Rate [Anterior Bilateral Throughout] Blood Pressure 83/43 O2 Sat by Pulse 99 Oximetry O2 Sat by Pulse Oximetry [ Assessment] - Labs CBC & Chem 7: 09/16/17 06:15 09/16/17 06:15 Labs: Abnormal lab results 09/15/17 09/15/17 09/15/17 Range/Units 11:17 15:11 17:52 WBC 11.4 H (4.5-11.0) K/mm3 RBC 2.91 L (3.65-5.03) M/mm3 Hgb 8.8 L (11.8-15.2) gm/dl Hct 29.0 L (35.5-45.6) % MCV 100 H (84-94) fl MCHC 31 L (32-34) % RDW 20.6 H (13.2-15.2) % Plt Count 46 L (140-440) K/mm3 PT (12.2-14.9) Sec. INR (0.87-1.13) APTT (24.2-36.6) Sec. Sodium (137-145) mmol/L Carbon Dioxide (22-30) mmol/L BUN (9-20) mg/dL Creatinine (0.8-1.5) mg/dL Glucose (75-100) mg/dL POC Glucose 215 H 238 H (70-105) Calcium (8.4-10.2) mg/dL Phosphorus (2.5-4.5) mg/dL Total Bilirubin (0.1-1.2) mg/dL AST (5-40) units/L ALT (7-56) units/L Total Protein (6.3-8.2) g/dL Albumin (3.9-5) g/dL 09/15/17 09/15/17 09/15/17 Range/Units 17:52 17:52 18:12 WBC (4.5-11.0) K/mm3 RBC (3.65-5.03) M/mm3 Hgb (11.8-15.2) gm/dl Hct (35.5-45.6) % MCV (84-94) fl MCHC (32-34) % RDW (13.2-15.2) % Plt Count (140-440) K/mm3 PT 16.5 H (12.2-14.9) Sec. INR 1.26 H (0.87-1.13) APTT 38.7 H (24.2-36.6) Sec. Sodium 136 L (137-145) mmol/L Carbon Dioxide 16 L (22-30) mmol/L BUN 100 H (9-20) mg/dL Creatinine 3.8 H (0.8-1.5) mg/dL Glucose 220 H (75-100) mg/dL POC Glucose 276 H (70-105) Calcium 7.3 L (8.4-10.2) mg/dL Phosphorus (2.5-4.5) mg/dL Total Bilirubin 1.50 H (0.1-1.2) mg/dL AST 263 H (5-40) units/L ALT 1236 H (7-56) units/L Total Protein 4.3 L (6.3-8.2) g/dL Albumin 2.0 L (3.9-5) g/dL 09/15/17 09/16/17 09/16/17 Range/Units 23:34 05:22 06:15 WBC (4.5-11.0) K/mm3 RBC 2.75 L (3.65-5.03) M/mm3 Hgb 8.8 L (11.8-15.2) gm/dl Hct 27.1 L (35.5-45.6) % MCV 99 H (84-94) fl MCHC (32-34) % RDW 20.2 H (13.2-15.2) % Plt Count 42 L (140-440) K/mm3 PT (12.2-14.9) Sec. INR (0.87-1.13) APTT (24.2-36.6) Sec. Sodium (137-145) mmol/L Carbon Dioxide (22-30) mmol/L BUN (9-20) mg/dL Creatinine (0.8-1.5) mg/dL Glucose (75-100) mg/dL POC Glucose 275 H 306 H (70-105) Calcium (8.4-10.2) mg/dL Phosphorus (2.5-4.5) mg/dL Total Bilirubin (0.1-1.2) mg/dL AST (5-40) units/L ALT (7-56) units/L Total Protein (6.3-8.2) g/dL Albumin (3.9-5) g/dL 09/16/17 Range/Units 06:15 WBC (4.5-11.0) K/mm3 RBC (3.65-5.03) M/mm3 Hgb (11.8-15.2) gm/dl Hct (35.5-45.6) % MCV (84-94) fl MCHC (32-34) % RDW (13.2-15.2) % Plt Count (140-440) K/mm3 PT (12.2-14.9) Sec. INR (0.87-1.13) APTT (24.2-36.6) Sec. Sodium 136 L (137-145) mmol/L Carbon Dioxide 15 L (22-30) mmol/L BUN 110 H (9-20) mg/dL Creatinine 4.1 H (0.8-1.5) mg/dL Glucose 265 H (75-100) mg/dL POC Glucose (70-105) Calcium 7.6 L (8.4-10.2) mg/dL Phosphorus 9.00 H (2.5-4.5) mg/dL Total Bilirubin 1.30 H (0.1-1.2) mg/dL AST 227 H (5-40) units/L ALT 966 H (7-56) units/L Total Protein 4.3 L (6.3-8.2) g/dL Albumin 1.8 L (3.9-5) g/dL
--- NOTE | 2017-09-16 09:48 | Operative Report ---
Operative Report Operative Report: EXAM: ULTRASOUND GUIDED PLACEMENT OF VAS-CATH CLINICAL INDICATION: END-STAGE RENAL DISEASE REQUIRING HEMODIALYSIS DATE: 09/16/2017 PROCEDURE: Following an explanation of the risks, benefits and alternatives; written informed consent was obtained from the patient's spouse secondary to altered mental status. The procedure was performed at bedside in the ICU. Initial ultrasound evaluation of the left groin demonstrated a patent left common femoral vein. The patient's left groin was prepped and draped in the usual sterile fashion. 1% lidocaine was used for anesthesia. Under ultrasound guidance, the left common femoral vein was cannulated with a 7 cm 18-gauge needle. A 0.035 guidewire was advanced centrally easily. The needle was removed and following serial dilation, a 30 cm dialysis catheter was advanced over the guidewire centrally. Given the patient's obesity and redundancy of tissue within the pelvis, only 20 cm of the dialysis catheter was able to be advanced centrally. The guidewire was removed. Nonpulsatile venous blood return from all 3 ports. The catheter was flushed with sterile saline and securely fastened of the skin surface using 3-0 nylon suture. A sterile dressing was then applied. The patient tolerated the procedure well. There were no immediate post procedure complications. IMPRESSION: 1) Ultrasound guided placement of Vas-Cath. A post procedure pelvic x-ray will be ordered to document appropriate positioning.
[2017-09-16] MEDS ORDERED: ALBURX 25% (ALBUMIN) IV PRN (10:02)
[2017-09-16] MEDS ORDERED: NACL 0.9% 100 ML IV PRN (10:02)
[2017-09-16] MEDS ORDERED: HEPARIN IV PRN (10:02)
--- NOTE | 2017-09-16 10:24 | Progress Note ---
Assessment and Plan - Patient Problems (1) Acute renal failure due to tubular necrosis Current Visit: No Status: Acute Plan to address problem: Oliguric Acute tubular necrosis secondary to hypotension/sepsis. Kidney function still worsening. Continue volume resuscitation though caution as patient is getting volume overloaded. Follow-up electrolytes and renal function. Unfortunately we need to start dialysis with worsening azotemia and volume overload. I discussed with the nurse at bedside. I also called patient' s and updated her about his condition and need for dialysis. She expressed understanding and agrees to proceed (2) Severe sepsis with septic shock Current Visit: Yes Status: Acute Plan to address problem: Continue antibiotics, vasopressors and wean to a mean arterial pressure more than 65 mmHg.Follow up Cultures (3) Hyperkalemia Current Visit: Yes Status: Acute Plan to address problem: Potassium has improved. Continue to follow up (4) Acute respiratory failure with hypoxia Current Visit: Yes Status: Acute Plan to address problem: Ventilator management by pulmonary (5) Peritonitis Current Visit: Yes Status: Acute Plan to address problem: S/p Exploratory laparotomy, peritoneal lavage, cholecystectomy, placement of gastrojejunal feeding tube, closure of abdomen. Continue antibiotics Subjective Date of service: 09/16/17 Principal diagnosis: Septic shock. peritonitis, dislodged PEG tube, WILLIAM Interval history: Patient seen lying in bed in ICU. He is intubated on the ventilator. No family at the bedside. Eyes are open and he is interacting but did not follow my commands Objective - Exam Narrative Exam: Middle-aged female lying in bed in no acute distress On ventilator AC 450/14/40% PEEP of 6 On Levophed at 6 mcg/min HEENT: NCAT, pink clear oropharynx Neck: Supple, no venous distention, trach intact on ventilator CVS: S1S2 RRR with no murmur, rub or gallop Chest: Diminished breath sounds bilaterally Abdomen: Distended, soft, tender, bowel sounds diminished, dressings intact, edema trunk Extremities: 3-4+ Pitting edema, heel protectors intact, Skin: warm and dry Genitourinary deferred, Med[place] catheter draining clear urine Neuro: Drowsy, - Vital Signs Vital signs: Vital Signs - 12hr 09/15/17 09/15/17 09/15/17 22:30 22:46 23:00 Temperature Pulse Rate 86 82 71 Pulse Rate [ Anterior Bilateral Throughout] Respiratory 16 15 14 Rate Respiratory Rate [Anterior Bilateral Throughout] Blood Pressure 115/61 115/49 122/49 O2 Sat by Pulse 98 98 98 Oximetry O2 Sat by Pulse Oximetry [ Assessment] 09/15/17 09/15/17 09/15/17 23:05 23:15 23:30 Temperature 97.4 F L Pulse Rate 80 85 Pulse Rate [ Anterior Bilateral Throughout] Respiratory 13 14 Rate Respiratory Rate [Anterior Bilateral Throughout] Blood Pressure 136/52 106/54 O2 Sat by Pulse 98 99 Oximetry O2 Sat by Pulse Oximetry [ Assessment] 09/15/17 09/15/17 09/16/17 23:36 23:46 00:00 Temperature Pulse Rate 74 70 86 Pulse Rate [ Anterior Bilateral Throughout] Respiratory 14 14 14 Rate Respiratory Rate [Anterior Bilateral Throughout] Blood Pressure 106/54 104/48 106/55 O2 Sat by Pulse 98 98 97 Oximetry O2 Sat by Pulse Oximetry [ Assessment] 09/16/17 09/16/17 09/16/17 00:16 00:30 00:37 Temperature Pulse Rate 79 82 82 Pulse Rate [ Anterior Bilateral Throughout] Respiratory 14 15 Rate Respiratory Rate [Anterior Bilateral Throughout] Blood Pressure 103/55 92/56 92/56 O2 Sat by Pulse 98 98 97 Oximetry O2 Sat by Pulse Oximetry [ Assessment] 09/16/17 09/16/17 09/16/17 00:45 01:00 01:15 Temperature Pulse Rate 85 86 81 Pulse Rate [ Anterior Bilateral Throughout] Respiratory 14 14 14 Rate Respiratory Rate [Anterior Bilateral Throughout] Blood Pressure 99/53 100/59 106/52 O2 Sat by Pulse 97 97 97 Oximetry O2 Sat by Pulse Oximetry [ Assessment] 09/16/17 09/16/17 09/16/17 01:30 01:45 02:00 Temperature Pulse Rate 81 92 H 80 Pulse Rate [ Anterior Bilateral Throughout] Respiratory 15 20 15 Rate Respiratory Rate [Anterior Bilateral Throughout] Blood Pressure 97/43 108/64 104/53 O2 Sat by Pulse 98 98 97 Oximetry O2 Sat by Pulse Oximetry [ Assessment] 09/16/17 09/16/17 09/16/17 02:16 02:30 02:46 Temperature Pulse Rate 82 75 93 H Pulse Rate [ Anterior Bilateral Throughout] Respiratory 14 15 15 Rate Respiratory Rate [Anterior Bilateral Throughout] Blood Pressure 106/46 105/48 108/44 O2 Sat by Pulse 99 99 99 Oximetry O2 Sat by Pulse Oximetry [ Assessment] 09/16/17 09/16/17 09/16/17 03:00 03:15 03:26 Temperature 98.8 F Pulse Rate 89 83 Pulse Rate [ Anterior Bilateral Throughout] Respiratory 20 14 Rate Respiratory Rate [Anterior Bilateral Throughout] Blood Pressure 102/53 102/53 O2 Sat by Pulse 98 100 Oximetry O2 Sat by Pulse 100 Oximetry [ Assessment] 09/16/17 09/16/17 09/16/17 03:30 03:45 04:00 Temperature Pulse Rate 72 80 67 Pulse Rate [ Anterior Bilateral Throughout] Respiratory 15 19 17 Rate Respiratory Rate [Anterior Bilateral Throughout] Blood Pressure 101/56 106/52 104/51 O2 Sat by Pulse 99 99 99 Oximetry O2 Sat by Pulse Oximetry [ Assessment] 09/16/17 09/16/17 09/16/17 04:16 04:30 04:45 Temperature Pulse Rate 77 75 79 Pulse Rate [ Anterior Bilateral Throughout] Respiratory 16 14 18 Rate Respiratory Rate [Anterior Bilateral Throughout] Blood Pressure 102/48 104/51 98/50 O2 Sat by Pulse 99 99 98 Oximetry O2 Sat by Pulse Oximetry [ Assessment] 09/16/17 09/16/17 09/16/17 04:47 05:00 05:16 Temperature Pulse Rate 96 H 93 H Pulse Rate [ 88 Anterior Bilateral Throughout] Respiratory 16 17 Rate Respiratory 16 Rate [Anterior Bilateral Throughout] Blood Pressure 88/54 103/49 O2 Sat by Pulse 99 98 Oximetry O2 Sat by Pulse Oximetry [ Assessment] 09/16/17 09/16/17 09/16/17 05:30 05:45 06:00 Temperature Pulse Rate 75 87 81 Pulse Rate [ Anterior Bilateral Throughout] Respiratory 15 18 15 Rate Respiratory Rate [Anterior Bilateral Throughout] Blood Pressure 108/48 88/55 100/49 O2 Sat by Pulse 99 98 99 Oximetry O2 Sat by Pulse Oximetry [ Assessment] 09/16/17 09/16/17 09/16/17 06:15 06:30 08:00 Temperature Pulse Rate 87 83 80 Pulse Rate [ Anterior Bilateral Throughout] Respiratory 16 16 Rate Respiratory Rate [Anterior Bilateral Throughout] Blood Pressure 94/46 83/43 101/44 O2 Sat by Pulse 100 99 99 Oximetry O2 Sat by Pulse Oximetry [ Assessment] 09/16/17 09/16/17 09/16/17 08:10 08:25 09:11 Temperature Pulse Rate 88 Pulse Rate [ 86 83 Anterior Bilateral Throughout] Respiratory Rate Respiratory 16 18 Rate [Anterior Bilateral Throughout] Blood Pressure 110/54 O2 Sat by Pulse 97 Oximetry O2 Sat by Pulse Oximetry [ Assessment] - Lab 09/16/17 06:15 09/16/17 06:15 Most recent lab results Calcium 7.6 mg/dL (8.4-10.2) L 09/16/17 06:15 Phosphorus 9.00 mg/dL (2.5-4.5) H 09/16/17 06:15 Magnesium 2.30 mg/dL (1.7-2.3) 09/16/17 06:15 Urine Creatinine 180.6 mg/dL (0.1-20.0) H 09/13/17 14:47 Urine Sodium 29 mmol/L 09/13/17 14:47 Urine Total Protein 289 mg/dL (5-11.8) H 09/13/17 14:47
[2017-09-16] MEDS: PROTONIX IV SCH (10:30)
[2017-09-16 10:34] LABS: Acanthocytes 1+; Anisocytosis 1+; Band Neutrophils # (Manual) 0.1 K/mm3; Basophils % (Manual) 0 % (0.0-1.8); Burr Cells 1+; Eosinophils % (Manual) 0 % (0.0-4.3); Ovalocytes 1+; Poikilocytosis 1+; Total Cells Counted 100
[2017-09-16 10:35] LABS: Large Platelets Rare; Platelet Estimate Appears Decreased
[2017-09-16] MEDS ORDERED: CATHFLO IV ONE (11:00)
--- NOTE | 2017-09-16 11:08 | XRay Report ---
AP ABDOMEN: HISTORY: Left groin Vas-Cath placement. A dual-lumen left femoral vas catheter has been inserted which terminates near the level of S3. Bilateral iliac vascular stents are also noted. The bowel gas pattern is unremarkable. Recent surgical changes are suspected. Mild cardiomegaly and small pleural effusions at the lung bases. IMPRESSION: Left femoral catheter as described.
--- NOTE | 2017-09-16 11:25 | Progress Note ---
Assessment and Plan Continue IV amiodarone and plan for conversion to PO amio once pt is tolerating enteral intake. Consider addition of IV lopressor if necessary for BP optimization. Volume optimization per nephrology. Await echo. No systemic anticoagulation at this time in regards to atrial fibrillation in setting of anemia, thrombocytopenia and recent bleeding. The patient has been seen in conjunction with Dr. Pitt who agrees with the assessment and plan of care. - Patient Problems (1) Acute respiratory failure with hypoxia Current Visit: Yes Status: Acute (2) Atrial fibrillation with RVR Current Visit: Yes Status: Acute (3) Acute combined systolic and diastolic heart failure Current Visit: Yes Status: Acute (4) Cardiomyopathy Current Visit: Yes Status: Chronic (5) Severe sepsis with septic shock Current Visit: Yes Status: Acute (6) Acute renal failure Current Visit: Yes Status: Acute Qualifiers: Acute renal failure type: with acute tubular necrosis Qualified Code(s): N17.0 - Acute kidney failure with tubular necrosis (7) Peritonitis Current Visit: Yes Status: Acute (8) Pneumoperitoneum Current Visit: Yes Status: Acute (9) PAD (peripheral artery disease) Current Visit: Yes Status: Chronic (10) Anemia Current Visit: Yes Status: Acute Qualifiers: Chronic kidney disease stage: stage 2 (mild) (11) Thrombocytopenia Current Visit: Yes Status: Acute Subjective Date of service: 09/16/17 Principal diagnosis: Septic shock. peritonitis, dislodged PEG tube, WILLIAM Interval history: pt resting comfortably in bed, trached. remains in AFib with CVR currently. amio gtt infusing. s/p vascath placement this AM with plans to initiate HD in near future. Objective Last Vital Signs Temp 98.8 F 09/16/17 03:26 Pulse 88 09/16/17 09:11 Resp 18 09/16/17 08:25 BP 110/54 09/16/17 09:11 Pulse Ox 97 09/16/17 09:11 - Physical Examination General: No Apparent Distress HEENT: Positive: EOMI, Normocephaly, Mucus Membranes Moist Neck: Positive: neck supple, trachea midline Cardiac: Positive: irregularly irregular, S1/S2 Lungs: Positive: Decreased Breath Sounds, Ventilated Respirations Neuro: Positive: Grossly Intact Abdomen: Positive: Soft, Active Bowel Sounds Skin: Positive: Clear. Negative: Rash Musculoskeletal: Normal Range of Motion Extremities: Present: +1 Edema - Labs and Meds Cardiac Enzymes 09/15/17 09/16/17 Range/Units 17:52 06:15 AST 263 H 227 H (5-40) units/L Coagulation 09/15/17 Range/Units 17:52 PT 16.5 H (12.2-14.9) Sec. INR 1.26 H (0.87-1.13) APTT 38.7 H (24.2-36.6) Sec. CBC 09/15/17 09/16/17 Range/Units 17:52 06:15 WBC 11.4 H 9.1 (4.5-11.0) K/mm3 RBC 2.91 L 2.75 L (3.65-5.03) M/mm3 Hgb 8.8 L 8.8 L (11.8-15.2) gm/dl Hct 29.0 L 27.1 L (35.5-45.6) % Plt Count 46 L 42 L (140-440) K/mm3 Comprehensive Metabolic Panel 09/15/17 09/16/17 Range/Units 17:52 06:15 Sodium 136 L 136 L (137-145) mmol/L Potassium 4.7 5.0 (3.6-5.0) mmol/L Chloride 102.5 99.8 (98-107) mmol/L Carbon Dioxide 16 L 15 L (22-30) mmol/L BUN 100 H 110 H (9-20) mg/dL Creatinine 3.8 H 4.1 H (0.8-1.5) mg/dL Glucose 220 H 265 H (75-100) mg/dL Calcium 7.3 L 7.6 L (8.4-10.2) mg/dL AST 263 H 227 H (5-40) units/L ALT 1236 H 966 H (7-56) units/L Alkaline Phosphatase 123 117 (35-129) units/L Total Protein 4.3 L 4.3 L (6.3-8.2) g/dL Albumin 2.0 L 1.8 L (3.9-5) g/dL - Imaging and Cardiology Echo: report reviewed (07/2017: EF 30-35%, impaired relaxation)
--- NOTE | 2017-09-16 11:28 | Progress Note ---
Assessment and Plan Assessment: 1) Septic shock: back on pressors - levophed at 6; etiology - acute peritonitis +/- UTI 2) Acute peritonitis: from gastric content spill from dislodge PEG -CT showed pneumoperitoneum and PEG tube bumper outside of stomach. -S/P Exploratory laparotomy, repair of gastrotomy, removal of PEG tube, peritoneal lavage, temporary closure of abdomen with Abthera Vac on 09/13/17 3) WILLIAM 4) Acute encephalopathy 5) CA-UTI 6) History of Recent presumed VAP: Treated with cefepime/vano x 10 days. 7) History of Recent Acute respiratory failure: for airway protection - s/p trach 8) History of Right lower extremity chronic ischemia with short distance claudication: -S/P elective right common femoral endarterectomy with patch angioplasty, bilateral common iliac and right external artery stenting on 08/11/17 9) History of Ruptured pseudoaneurysm left groin/external iliac: -CTA showed retroperitoneal hemorrhage and bladder thickening. -S/P deployment of new Viabond stent graft across the inguinal ligament into the common femoral artery on 08/13/17. 10) HORSER UP in blood cultures ? Plan: -repeat blood cx today -stop levaquin -add cefepime and vanco -continue flagyl and fluconazole - D4 Guarded prognosis Thank you for your consultation, will follow up with you. Tasia Baldwin MD Infectious Diseases Specialist [facility] M [phone] O [phone] Subjective Date of service: 09/16/17 Principal diagnosis: Septic shock. peritonitis, dislodged PEG tube, WILLIAM Interval history: Remains on the vent via trach A/C 40% p 6, alert, no fever, back on pressors levophed at 6. On amiodarone gtt. On TPN. Microbiology: Blood cultures: 09/01 neg 09/14 CNG 1 of 4 bottles Urine cultures: Respiratory cultures: 09/01 usual resp rudy Antibiotics: levaquin 09/12 metronidazole 09/12 fluconazole 09/12 Objective - Exam Narrative Exam: General appearance: sedated in NAD Eyes: anicteric sclerae, moist conjunctivae; no lid-lag; PERRLA HENT: Atraumatic; oropharynx limited Lungs: CTA, with normal respiratory effort and no intercostal retractions CV: RRR, no murmurs Abdomen: Soft, midline wound with wound VAC Extremities: No peripheral edema or extremity lymphadenopathy Skin: Normal temperature, turgor and texture; no rash, ulcers or subcutaneous nodules Psych: sedated Neuro: sedated Lines: barrientos, right PICC - Constitutional Vitals: Vital Signs Temp Pulse Resp BP Pulse Ox 98.8 F 88 18 110/54 97 09/16/17 03:26 09/16/17 09:11 09/16/17 08:25 09/16/17 09:11 09/16/17 09:11 Temperature -Last 24 Hours Temperature 98.8 F Temperature 97.4 F Temperature 98.9 F Temperature 97.6 F Temperature 98.5 F - Labs CBC & Chem 7: 09/16/17 06:15 09/16/17 06:15 Labs: Abnormal lab results 09/15/17 09/15/17 09/15/17 Range/Units 11:17 15:11 17:52 WBC 11.4 H (4.5-11.0) K/mm3 RBC 2.91 L (3.65-5.03) M/mm3 Hgb 8.8 L (11.8-15.2) gm/dl Hct 29.0 L (35.5-45.6) % MCV 100 H (84-94) fl MCHC 31 L (32-34) % RDW 20.6 H (13.2-15.2) % Plt Count 46 L (140-440) K/mm3 Seg Neuts % (Manual) (40.0-70.0) % Lymphocytes % (Manual) (13.4-35.0) % Seg Neutrophils # Man (1.8-7.7) K/mm3 Lymphocytes # (Manual) (1.2-5.4) K/mm3 PT (12.2-14.9) Sec. INR (0.87-1.13) APTT (24.2-36.6) Sec. Sodium (137-145) mmol/L Carbon Dioxide (22-30) mmol/L BUN (9-20) mg/dL Creatinine (0.8-1.5) mg/dL Glucose (75-100) mg/dL POC Glucose 215 H 238 H (70-105) Calcium (8.4-10.2) mg/dL Phosphorus (2.5-4.5) mg/dL Total Bilirubin (0.1-1.2) mg/dL AST (5-40) units/L ALT (7-56) units/L Total Protein (6.3-8.2) g/dL Albumin (3.9-5) g/dL 09/15/17 09/15/17 09/15/17 Range/Units 17:52 17:52 18:12 WBC (4.5-11.0) K/mm3 RBC (3.65-5.03) M/mm3 Hgb (11.8-15.2) gm/dl Hct (35.5-45.6) % MCV (84-94) fl MCHC (32-34) % RDW (13.2-15.2) % Plt Count (140-440) K/mm3 Seg Neuts % (Manual) (40.0-70.0) % Lymphocytes % (Manual) (13.4-35.0) % Seg Neutrophils # Man (1.8-7.7) K/mm3 Lymphocytes # (Manual) (1.2-5.4) K/mm3 PT 16.5 H (12.2-14.9) Sec. INR 1.26 H (0.87-1.13) APTT 38.7 H (24.2-36.6) Sec. Sodium 136 L (137-145) mmol/L Carbon Dioxide 16 L (22-30) mmol/L BUN 100 H (9-20) mg/dL Creatinine 3.8 H (0.8-1.5) mg/dL Glucose 220 H (75-100) mg/dL POC Glucose 276 H (70-105) Calcium 7.3 L (8.4-10.2) mg/dL Phosphorus (2.5-4.5) mg/dL Total Bilirubin 1.50 H (0.1-1.2) mg/dL AST 263 H (5-40) units/L ALT 1236 H (7-56) units/L Total Protein 4.3 L (6.3-8.2) g/dL Albumin 2.0 L (3.9-5) g/dL 09/15/17 09/16/17 09/16/17 Range/Units 23:34 05:22 06:15 WBC (4.5-11.0) K/mm3 RBC 2.75 L (3.65-5.03) M/mm3 Hgb 8.8 L (11.8-15.2) gm/dl Hct 27.1 L (35.5-45.6) % MCV 99 H (84-94) fl MCHC (32-34) % RDW 20.2 H (13.2-15.2) % Plt Count 42 L (140-440) K/mm3 Seg Neuts % (Manual) 93.0 H (40.0-70.0) % Lymphocytes % (Manual) 3.0 L (13.4-35.0) % Seg Neutrophils # Man 8.5 H (1.8-7.7) K/mm3 Lymphocytes # (Manual) 0.3 L (1.2-5.4) K/mm3 PT (12.2-14.9) Sec. INR (0.87-1.13) APTT (24.2-36.6) Sec. Sodium (137-145) mmol/L Carbon Dioxide (22-30) mmol/L BUN (9-20) mg/dL Creatinine (0.8-1.5) mg/dL Glucose (75-100) mg/dL POC Glucose 275 H 306 H (70-105) Calcium (8.4-10.2) mg/dL Phosphorus (2.5-4.5) mg/dL Total Bilirubin (0.1-1.2) mg/dL AST (5-40) units/L ALT (7-56) units/L Total Protein (6.3-8.2) g/dL Albumin (3.9-5) g/dL 09/16/17 Range/Units 06:15 WBC (4.5-11.0) K/mm3 RBC (3.65-5.03) M/mm3 Hgb (11.8-15.2) gm/dl Hct (35.5-45.6) % MCV (84-94) fl MCHC (32-34) % RDW (13.2-15.2) % Plt Count (140-440) K/mm3 Seg Neuts % (Manual) (40.0-70.0) % Lymphocytes % (Manual) (13.4-35.0) % Seg Neutrophils # Man (1.8-7.7) K/mm3 Lymphocytes # (Manual) (1.2-5.4) K/mm3 PT (12.2-14.9) Sec. INR (0.87-1.13) APTT (24.2-36.6) Sec. Sodium 136 L (137-145) mmol/L Carbon Dioxide 15 L (22-30) mmol/L BUN 110 H (9-20) mg/dL Creatinine 4.1 H (0.8-1.5) mg/dL Glucose 265 H (75-100) mg/dL POC Glucose (70-105) Calcium 7.6 L (8.4-10.2) mg/dL Phosphorus 9.00 H (2.5-4.5) mg/dL Total Bilirubin 1.30 H (0.1-1.2) mg/dL AST 227 H (5-40) units/L ALT 966 H (7-56) units/L Total Protein 4.3 L (6.3-8.2) g/dL Albumin 1.8 L (3.9-5) g/dL
--- NOTE | 2017-09-16 11:36 | Progress Note ---
Assessment and Plan 66-year-old male s/p Exploratory laparotomy, repair of gastrotomy, removal of PEG tube, peritoneal lavage, temporary closure of abdomen with Abthera Vac on and Exploratory laparotomy, peritoneal lavage, cholecystectomy, placement of gastrojejunal feeding tube, closure of abdomen. POD 1 1. septic shock 2. dislodged PEG tube 3. intraabdominal infection 4. WILLIAM Plan: 1. neuro - prn fentanyl for pain 2. CV - afib in OR, cardiology on board. Off pressors. DVT ppx - SCDs. Plts are 50% decreased from yesterday - heme c/s pending. Hb stable. 3. Resp: weant vent per CCU team 4. GI: NPO, TPN. GJ tube - G port to OSD. 5. : barrientos for strict I/Os. May start HD per nephro. Vascath placed today by IR. 6. Endo: accuchecks q6, ISS. 7. ID: c/w abx - levaquin, flagyl, diflucan IV. ID recs appreciated 8. FEN: BMP in am. replace lytes as needed. c/w NPO. c/w TPN D/W ICU team. Thank you for this consultation, please call with questions or concerns. Subjective Date of service: 09/16/17 Narrative: Pt seen and examined. Awake on vent, off sedation. Post operatively he had some hypotension requiring low dose levophed but this has resolved. He denies pain. No f/c. Objective Vital Signs - 12hr 09/15/17 09/16/17 09/16/17 23:46 00:00 00:16 Temperature Pulse Rate 70 86 79 Pulse Rate [ Anterior Bilateral Throughout] Respiratory 14 14 14 Rate Respiratory Rate [Anterior Bilateral Throughout] Blood Pressure 104/48 106/55 103/55 O2 Sat by Pulse 98 97 98 Oximetry O2 Sat by Pulse Oximetry [ Assessment] 09/16/17 09/16/17 09/16/17 00:30 00:37 00:45 Temperature Pulse Rate 82 82 85 Pulse Rate [ Anterior Bilateral Throughout] Respiratory 15 14 Rate Respiratory Rate [Anterior Bilateral Throughout] Blood Pressure 92/56 92/56 99/53 O2 Sat by Pulse 98 97 97 Oximetry O2 Sat by Pulse Oximetry [ Assessment] 09/16/17 09/16/1718 01:00 01:15 01:30 Temperature Pulse Rate 86 81 81 Pulse Rate [ Anterior Bilateral Throughout] Respiratory 14 14 15 Rate Respiratory Rate [Anterior Bilateral Throughout] Blood Pressure 100/59 106/52 97/43 O2 Sat by Pulse 97 97 98 Oximetry O2 Sat by Pulse Oximetry [ Assessment] 09/16/17 09/16/17 09/16/17 01:45 02:00 02:16 Temperature Pulse Rate 92 H 80 82 Pulse Rate [ Anterior Bilateral Throughout] Respiratory 20 15 14 Rate Respiratory Rate [Anterior Bilateral Throughout] Blood Pressure 108/64 104/53 106/46 O2 Sat by Pulse 98 97 99 Oximetry O2 Sat by Pulse Oximetry [ Assessment] 09/16/17 09/16/17 09/16/17 02:30 02:46 03:00 Temperature Pulse Rate 75 93 H 89 Pulse Rate [ Anterior Bilateral Throughout] Respiratory 15 15 20 Rate Respiratory Rate [Anterior Bilateral Throughout] Blood Pressure 105/48 108/44 102/53 O2 Sat by Pulse 99 99 98 Oximetry O2 Sat by Pulse 100 Oximetry [ Assessment] 09/16/17 09/16/17 09/16/17 03:15 03:26 03:30 Temperature 98.8 F Pulse Rate 83 72 Pulse Rate [ Anterior Bilateral Throughout] Respiratory 14 15 Rate Respiratory Rate [Anterior Bilateral Throughout] Blood Pressure 102/53 101/56 O2 Sat by Pulse 100 99 Oximetry O2 Sat by Pulse Oximetry [ Assessment] 09/16/17 09/16/17 09/16/17 03:45 04:00 04:16 Temperature Pulse Rate 80 67 77 Pulse Rate [ Anterior Bilateral Throughout] Respiratory 19 17 16 Rate Respiratory Rate [Anterior Bilateral Throughout] Blood Pressure 106/52 104/51 102/48 O2 Sat by Pulse 99 99 99 Oximetry O2 Sat by Pulse Oximetry [ Assessment] 09/16/17 09/16/17 09/16/17 04:30 04:45 04:47 Temperature Pulse Rate 75 79 Pulse Rate [ 88 Anterior Bilateral Throughout] Respiratory 14 18 Rate Respiratory 16 Rate [Anterior Bilateral Throughout] Blood Pressure 104/51 98/50 O2 Sat by Pulse 99 98 Oximetry O2 Sat by Pulse Oximetry [ Assessment] 09/16/17 09/16/17 09/16/17 05:00 05:16 05:30 Temperature Pulse Rate 96 H 93 H 75 Pulse Rate [ Anterior Bilateral Throughout] Respiratory 16 17 15 Rate Respiratory Rate [Anterior Bilateral Throughout] Blood Pressure 88/54 103/49 108/48 O2 Sat by Pulse 99 98 99 Oximetry O2 Sat by Pulse Oximetry [ Assessment] 09/16/17 09/16/17 09/16/17 05:45 06:00 06:15 Temperature Pulse Rate 87 81 87 Pulse Rate [ Anterior Bilateral Throughout] Respiratory 18 15 16 Rate Respiratory Rate [Anterior Bilateral Throughout] Blood Pressure 88/55 100/49 94/46 O2 Sat by Pulse 98 99 100 Oximetry O2 Sat by Pulse Oximetry [ Assessment] 09/16/17 09/16/17 09/16/17 06:30 08:00 08:10 Temperature Pulse Rate 83 80 Pulse Rate [ 86 Anterior Bilateral Throughout] Respiratory 16 Rate Respiratory 16 Rate [Anterior Bilateral Throughout] Blood Pressure 83/43 101/44 O2 Sat by Pulse 99 99 Oximetry O2 Sat by Pulse Oximetry [ Assessment] 09/16/17 09/16/17 08:25 09:11 Temperature Pulse Rate 88 Pulse Rate [ 83 Anterior Bilateral Throughout] Respiratory Rate Respiratory 18 Rate [Anterior Bilateral Throughout] Blood Pressure 110/54 O2 Sat by Pulse 97 Oximetry O2 Sat by Pulse Oximetry [ Assessment] - Labs 09/16/17 06:15 09/16/17 06:15 Diabetes panel 09/15/17 09/16/17 Range/Units 17:52 06:15 Sodium 136 L 136 L (137-145) mmol/L Potassium 4.7 5.0 (3.6-5.0) mmol/L Chloride 102.5 99.8 (98-107) mmol/L Carbon Dioxide 16 L 15 L (22-30) mmol/L BUN 100 H 110 H (9-20) mg/dL Creatinine 3.8 H 4.1 H (0.8-1.5) mg/dL Glucose 220 H 265 H (75-100) mg/dL Calcium 7.3 L 7.6 L (8.4-10.2) mg/dL AST 263 H 227 H (5-40) units/L ALT 1236 H 966 H (7-56) units/L Alkaline Phosphatase 123 117 (35-129) units/L Total Protein 4.3 L 4.3 L (6.3-8.2) g/dL Albumin 2.0 L 1.8 L (3.9-5) g/dL Calcium panel 09/15/17 09/16/17 Range/Units 17:52 06:15 Calcium 7.3 L 7.6 L (8.4-10.2) mg/dL Phosphorus 9.00 H (2.5-4.5) mg/dL Albumin 2.0 L 1.8 L (3.9-5) g/dL Pituitary panel 09/15/17 09/16/17 Range/Units 17:52 06:15 Sodium 136 L 136 L (137-145) mmol/L Potassium 4.7 5.0 (3.6-5.0) mmol/L Chloride 102.5 99.8 (98-107) mmol/L Carbon Dioxide 16 L 15 L (22-30) mmol/L BUN 100 H 110 H (9-20) mg/dL Creatinine 3.8 H 4.1 H (0.8-1.5) mg/dL Glucose 220 H 265 H (75-100) mg/dL Calcium 7.3 L 7.6 L (8.4-10.2) mg/dL Adrenal panel 09/15/17 09/16/17 Range/Units 17:52 06:15 Sodium 136 L 136 L (137-145) mmol/L Potassium 4.7 5.0 (3.6-5.0) mmol/L Chloride 102.5 99.8 (98-107) mmol/L Carbon Dioxide 16 L 15 L (22-30) mmol/L BUN 100 H 110 H (9-20) mg/dL Creatinine 3.8 H 4.1 H (0.8-1.5) mg/dL Glucose 220 H 265 H (75-100) mg/dL Calcium 7.3 L 7.6 L (8.4-10.2) mg/dL Total Bilirubin 1.50 H 1.30 H (0.1-1.2) mg/dL AST 263 H 227 H (5-40) units/L ALT 1236 H 966 H (7-56) units/L Alkaline Phosphatase 123 117 (35-129) units/L Total Protein 4.3 L 4.3 L (6.3-8.2) g/dL Albumin 2.0 L 1.8 L (3.9-5) g/dL
[2017-09-16] MEDS ORDERED: LANTUS SUB-Q ONE (12:00)
[2017-09-16] MEDS ORDERED: VANCOMYCIN 2,000 MG in NACL 0.9% 500 ML 500 ML IV ONE (13:00)
[2017-09-16] MEDS: MAXIPIME 2 GM in NACL 0.9% 20 ML IV SCH (14:00)
--- NOTE | 2017-09-16 14:32 | Progress Note ---
Assessment and Plan [id number] hypoxemic respiratory failure secondary likely to #2. Acute peritonitis, status post dislodged PEG tube. Severe sepsis. Oropharyngeal dysphagia. Acute kidney injury, possibly on chronic. Obesity. Tobacco use disorder. Alcohol abuse. Anemia that is microcytic and multifactorial. Metabolic acidosis. Hyperkalemia. Adult failure to thrive. - will correct acidosis with dialysis - hold on IV bicarbonate push acutely (tolerating pH of 7.17 well) - continue supplemental oxygen and wean to keep sats > 90% - continue daily SAT's and SBT's - keep Peep at 6 cmH2O - resume enteral nutrition once ok with surgery - on TPN - continue to address VAP bundle daily - continue antibiotics and de-escalate per ID recs - wean levophed to keep MAP >/= 65 mmHg - HD/UF prescrition per nephrology team - continue SCD's - heparin held and HIT assay sent re: thrombocytopenia - continue agitation and analgesia management while avoiding benzodiazepines - Avoid nephrotoxic agents - case discussed at length in team rounds and care plan formulated - continue other care per attending / other consultants .... re-evaluate in am & prn The high probability of a clinically significant, sudden or life threatening deterioration of the [cardiac, Renal, Respiratory, neurological] system(s) required my full and direct attention, intervention and personal management. The aggregate critical care time was [30] minutes without overlap. Time includes spent on; [x] Data Review and interpretation [x] Patient assessment and monitoring of vital signs [x] Documentation [x] Medication orders and management Subjective Date of service: 09/16/17 Principal diagnosis: Septic shock. peritonitis, dislodged PEG tube, WILLIAM Interval history: Patient is seen today for: Acute Hypoxemic Respiratory Failure; Hemorrhagic Shock; WILLIAM on Dilaysis;PVD Seen and examined at bedside; 24 hour events reviewed; nursing and respiratory care staff consulted; resting peacefully in bed; remains on MVS; no emesis or overt aspiration; on PSV 12/5 but tolerating tenuously at times; No N/V/F/C; azotemia and metabolic acidosis are worse and he is tentatively for Dialysis to begin today. Objective Vital Signs - 12hr 09/16/17 09/16/17 09/16/17 02:30 02:46 03:00 Temperature Pulse Rate 75 93 H 89 Pulse Rate [ Anterior Bilateral Throughout] Respiratory 15 15 20 Rate Respiratory Rate [Anterior Bilateral Throughout] Blood Pressure 105/48 108/44 102/53 O2 Sat by Pulse 99 99 98 Oximetry O2 Sat by Pulse 100 Oximetry [ Assessment] 09/16/17 09/16/17 09/16/17 03:15 03:26 03:30 Temperature 98.8 F Pulse Rate 83 72 Pulse Rate [ Anterior Bilateral Throughout] Respiratory 14 15 Rate Respiratory Rate [Anterior Bilateral Throughout] Blood Pressure 102/53 101/56 O2 Sat by Pulse 100 99 Oximetry O2 Sat by Pulse Oximetry [ Assessment] 09/16/17 09/16/17 09/16/17 03:45 04:00 04:16 Temperature Pulse Rate 80 67 77 Pulse Rate [ Anterior Bilateral Throughout] Respiratory 19 17 16 Rate Respiratory Rate [Anterior Bilateral Throughout] Blood Pressure 106/52 104/51 102/48 O2 Sat by Pulse 99 99 99 Oximetry O2 Sat by Pulse Oximetry [ Assessment] 09/16/17 09/16/17 09/16/17 04:30 04:45 04:47 Temperature Pulse Rate 75 79 Pulse Rate [ 88 Anterior Bilateral Throughout] Respiratory 14 18 Rate Respiratory 16 Rate [Anterior Bilateral Throughout] Blood Pressure 104/51 98/50 O2 Sat by Pulse 99 98 Oximetry O2 Sat by Pulse Oximetry [ Assessment] 09/16/17 09/16/17 09/16/17 05:00 05:16 05:30 Temperature Pulse Rate 96 H 93 H 75 Pulse Rate [ Anterior Bilateral Throughout] Respiratory 16 17 15 Rate Respiratory Rate [Anterior Bilateral Throughout] Blood Pressure 88/54 103/49 108/48 O2 Sat by Pulse 99 98 99 Oximetry O2 Sat by Pulse Oximetry [ Assessment] 09/16/17 09/16/17 09/16/17 05:45 06:00 06:15 Temperature Pulse Rate 87 81 87 Pulse Rate [ Anterior Bilateral Throughout] Respiratory 18 15 16 Rate Respiratory Rate [Anterior Bilateral Throughout] Blood Pressure 88/55 100/49 94/46 O2 Sat by Pulse 98 99 100 Oximetry O2 Sat by Pulse Oximetry [ Assessment] 09/16/17 09/16/17 09/16/17 06:30 06:45 07:00 Temperature Pulse Rate 83 87 85 Pulse Rate [ Anterior Bilateral Throughout] Respiratory 16 21 20 Rate Respiratory Rate [Anterior Bilateral Throughout] Blood Pressure 83/43 86/45 91/44 O2 Sat by Pulse 99 98 99 Oximetry O2 Sat by Pulse Oximetry [ Assessment] 09/16/17 09/16/17 09/16/17 07:15 07:30 07:45 Temperature Pulse Rate 82 76 84 Pulse Rate [ Anterior Bilateral Throughout] Respiratory 14 17 16 Rate Respiratory Rate [Anterior Bilateral Throughout] Blood Pressure 96/52 105/48 97/51 O2 Sat by Pulse 99 99 99 Oximetry O2 Sat by Pulse Oximetry [ Assessment] 09/16/17 09/16/17 09/16/17 08:00 08:10 08:16 Temperature Pulse Rate 92 H 82 Pulse Rate [ 86 Anterior Bilateral Throughout] Respiratory 19 17 Rate Respiratory 16 Rate [Anterior Bilateral Throughout] Blood Pressure 101/44 99/45 O2 Sat by Pulse 99 100 Oximetry O2 Sat by Pulse Oximetry [ Assessment] 09/16/17 09/16/17 09/16/17 08:25 08:30 08:45 Temperature Pulse Rate 81 84 Pulse Rate [ 83 Anterior Bilateral Throughout] Respiratory 15 14 Rate Respiratory 18 Rate [Anterior Bilateral Throughout] Blood Pressure 102/55 100/52 O2 Sat by Pulse 97 97 Oximetry O2 Sat by Pulse Oximetry [ Assessment] 09/16/17 09/16/17 09/16/17 09:00 09:11 09:15 Temperature Pulse Rate 78 88 80 Pulse Rate [ Anterior Bilateral Throughout] Respiratory 16 17 Rate Respiratory Rate [Anterior Bilateral Throughout] Blood Pressure 110/54 110/54 110/54 O2 Sat by Pulse 97 97 98 Oximetry O2 Sat by Pulse Oximetry [ Assessment] 09/16/17 09/16/17 09/16/17 09:30 09:45 10:00 Temperature Pulse Rate 85 82 80 Pulse Rate [ Anterior Bilateral Throughout] Respiratory 21 14 15 Rate Respiratory Rate [Anterior Bilateral Throughout] Blood Pressure 110/54 85/49 87/45 O2 Sat by Pulse 95 98 98 Oximetry O2 Sat by Pulse Oximetry [ Assessment] 09/16/17 09/16/17 09/16/17 10:16 10:30 10:46 Temperature Pulse Rate 82 96 H 94 H Pulse Rate [ Anterior Bilateral Throughout] Respiratory 14 17 21 Rate Respiratory Rate [Anterior Bilateral Throughout] Blood Pressure 109/59 109/59 115/60 O2 Sat by Pulse 98 97 97 Oximetry O2 Sat by Pulse Oximetry [ Assessment] 09/16/17 09/16/17 09/16/17 11:00 11:15 11:30 Temperature Pulse Rate 79 86 89 Pulse Rate [ Anterior Bilateral Throughout] Respiratory 21 19 19 Rate Respiratory Rate [Anterior Bilateral Throughout] Blood Pressure 108/55 118/54 107/50 O2 Sat by Pulse 97 97 99 Oximetry O2 Sat by Pulse Oximetry [ Assessment] 09/16/17 09/16/17 09/16/17 11:46 12:00 12:15 Temperature 98.6 F Pulse Rate 83 92 H 82 Pulse Rate [ Anterior Bilateral Throughout] Respiratory 18 18 19 Rate Respiratory Rate [Anterior Bilateral Throughout] Blood Pressure 113/56 121/33 111/62 O2 Sat by Pulse 97 96 97 Oximetry O2 Sat by Pulse Oximetry [ Assessment] 09/16/17 09/16/17 12:30 13:40 Temperature Pulse Rate 79 92 H Pulse Rate [ Anterior Bilateral Throughout] Respiratory 16 20 Rate Respiratory Rate [Anterior Bilateral Throughout] Blood Pressure 117/58 112/63 O2 Sat by Pulse 97 95 Oximetry O2 Sat by Pulse Oximetry [ Assessment] Constitutional: alert, appears uncomfortable, other (elderly looking slightly obese CM; normocephalic) Eyes: non-icteric ENT: oropharynx moist, other (s/p tracheostomy) Neck: supple, no lymphadenopathy, other (no thyromegaly) Effort: mildly labored Ascultation: Bilateral: diminished breath sounds, rhonchi Percussion: Bilateral: dull (bases) Cardiovascular: regular rate and rhythm, other (no rubs or murmurs) Gastrointestinal: hypoactive bowel sounds, soft, non-tender, non-distended, other (midline wound vac) Integumentary: normal Extremities: no cyanosis, pink and warm, pulses normal, no ischemia or petechiae , edema Neurologic: non-focal exam (grossly), pupils equal and round, CN II-XII normal, motor strength normal and (weak), other (mild cognitive dysfunction / dementia element) Psychiatric: anxious CBC and BMP: 09/16/17 06:15 09/16/17 06:15 ABG, PT/INR, D-dimer: ABG POC ABG pH 7.175 (7.35-7.45) L 09/16/17 13:07 POC ABG pCO2 39.1 (35-45) 09/16/17 13:07 POC ABG pO2 71 (80-105) L 09/16/17 13:07 POC ABG HCO3 14.4 09/16/17 13:07 POC ABG Total CO2 16 09/16/17 13:07 POC ABG O2 Sat 89 09/16/17 13:07 PT/INR, D-dimer PT 16.5 Sec. (12.2-14.9) H 09/15/17 17:52 INR 1.26 (0.87-1.13) H 09/15/17 17:52 Abnormal lab findings: Abnormal Labs 09/12/17 09/13/17 09/13/17 22:56 03:08 05:20 WBC RBC 3.60 L Hgb 11.5 L Hct 34.4 L MCV 95 H MCHC RDW 19.8 H Plt Count 83 L Seg Neuts % (Manual) Lymphocytes % (Manual) 11.0 L Seg Neutrophils # Man Lymphocytes # (Manual) 0.7 L PT INR APTT POC ABG pH 7.280 L POC ABG pCO2 46.4 H POC ABG pO2 110 H Sodium Potassium Chloride Carbon Dioxide BUN Creatinine Glucose POC Glucose 135 H Lactic Acid Calcium Phosphorus Total Bilirubin AST ALT C-Reactive Protein Total Protein Albumin Prealbumin Urine WBC (Auto) Urine Creatinine Urine Total Protein 09/13/17 09/13/17 09/13/17 05:20 14:47 14:47 WBC RBC Hgb Hct MCV MCHC RDW Plt Count Seg Neuts % (Manual) Lymphocytes % (Manual) Seg Neutrophils # Man Lymphocytes # (Manual) PT INR APTT POC ABG pH POC ABG pCO2 POC ABG pO2 Sodium Potassium 5.2 H Chloride 109.6 H Carbon Dioxide 20 L BUN 54 H Creatinine 2.3 H Glucose POC Glucose Lactic Acid Calcium 7.8 L Phosphorus 6.20 H Total Bilirubin AST ALT C-Reactive Protein Total Protein Albumin Prealbumin 0.050 L Urine WBC (Auto) 30.0 H Urine Creatinine 180.6 H Urine Total Protein 289 H 09/13/17 09/13/17 09/13/17 14:54 14:54 17:04 WBC RBC Hgb Hct MCV MCHC RDW Plt Count Seg Neuts % (Manual) Lymphocytes % (Manual) Seg Neutrophils # Man Lymphocytes # (Manual) PT INR APTT POC ABG pH POC ABG pCO2 POC ABG pO2 Sodium Potassium Chloride Carbon Dioxide BUN Creatinine Glucose POC Glucose 114 H Lactic Acid 2.20 H* Calcium Phosphorus Total Bilirubin AST ALT C-Reactive Protein 33.10 H Total Protein Albumin Prealbumin Urine WBC (Auto) Urine Creatinine Urine Total Protein 09/13/17 09/13/17 09/14/17 19:40 23:49 04:07 WBC RBC Hgb Hct MCV MCHC RDW Plt Count Seg Neuts % (Manual) Lymphocytes % (Manual) Seg Neutrophils # Man Lymphocytes # (Manual) PT INR APTT POC ABG pH 7.332 L POC ABG pCO2 34.3 L POC ABG pO2 76 L Sodium Potassium Chloride Carbon Dioxide BUN Creatinine Glucose POC Glucose 115 H Lactic Acid 2.20 H* Calcium Phosphorus Total Bilirubin AST ALT C-Reactive Protein Total Protein Albumin Prealbumin Urine WBC (Auto) Urine Creatinine Urine Total Protein 09/14/17 09/14/17 09/14/17 05:15 05:15 05:35 WBC RBC Hgb Hct MCV MCHC RDW Plt Count Seg Neuts % (Manual) Lymphocytes % (Manual) Seg Neutrophils # Man Lymphocytes # (Manual) PT INR APTT POC ABG pH POC ABG pCO2 POC ABG pO2 Sodium Potassium Chloride 107.5 H Carbon Dioxide 18 L BUN 77 H Creatinine 3.0 H Glucose 185 H POC Glucose 196 H Lactic Acid Calcium 7.3 L Phosphorus 7.80 H D Total Bilirubin 2.50 H AST 991 H ALT 1757 H C-Reactive Protein Total Protein 4.1 L Albumin 1.8 L Prealbumin Urine WBC (Auto) Urine Creatinine Urine Total Protein 09/14/17 09/14/17 09/14/17 12:17 18:08 23:55 WBC RBC Hgb Hct MCV MCHC RDW Plt Count Seg Neuts % (Manual) Lymphocytes % (Manual) Seg Neutrophils # Man Lymphocytes # (Manual) PT INR APTT POC ABG pH POC ABG pCO2 POC ABG pO2 Sodium Potassium Chloride Carbon Dioxide BUN Creatinine Glucose POC Glucose 212 H 242 H 231 H Lactic Acid Calcium Phosphorus Total Bilirubin AST ALT C-Reactive Protein Total Protein Albumin Prealbumin Urine WBC (Auto) Urine Creatinine Urine Total Protein 09/15/17 09/15/17 09/15/17 04:12 05:50 06:00 WBC RBC 2.62 L Hgb 8.3 L D Hct 25.8 L D MCV 98 H MCHC RDW 20.1 H Plt Count 50 L Seg Neuts % (Manual) 82.0 H Lymphocytes % (Manual) 6.0 L Seg Neutrophils # Man Lymphocytes # (Manual) 0.5 L PT INR APTT POC ABG pH 7.252 L POC ABG pCO2 POC ABG pO2 Sodium Potassium Chloride Carbon Dioxide BUN Creatinine Glucose POC Glucose 240 H Lactic Acid Calcium Phosphorus Total Bilirubin AST ALT C-Reactive Protein Total Protein Albumin Prealbumin Urine WBC (Auto) Urine Creatinine Urine Total Protein 09/15/17 09/15/17 09/15/17 06:00 11:17 15:11 WBC RBC Hgb Hct MCV MCHC RDW Plt Count Seg Neuts % (Manual) Lymphocytes % (Manual) Seg Neutrophils # Man Lymphocytes # (Manual) PT INR APTT POC ABG pH POC ABG pCO2 POC ABG pO2 Sodium 136 L Potassium Chloride Carbon Dioxide 17 L BUN 98 H Creatinine 3.9 H Glucose 207 H POC Glucose 215 H 238 H Lactic Acid Calcium 7.4 L Phosphorus 7.80 H Total Bilirubin 1.50 H AST 357 H ALT 1308 H C-Reactive Protein Total Protein 4.2 L Albumin 1.7 L Prealbumin Urine WBC (Auto) Urine Creatinine Urine Total Protein 09/15/17 09/15/17 09/15/17 17:52 17:52 17:52 WBC 11.4 H RBC 2.91 L Hgb 8.8 L Hct 29.0 L MCV 100 H MCHC 31 L RDW 20.6 H Plt Count 46 L Seg Neuts % (Manual) Lymphocytes % (Manual) Seg Neutrophils # Man Lymphocytes # (Manual) PT 16.5 H INR 1.26 H APTT 38.7 H POC ABG pH POC ABG pCO2 POC ABG pO2 Sodium 136 L Potassium Chloride Carbon Dioxide 16 L BUN 100 H Creatinine 3.8 H Glucose 220 H POC Glucose Lactic Acid Calcium 7.3 L Phosphorus Total Bilirubin 1.50 H AST 263 H ALT 1236 H C-Reactive Protein Total Protein 4.3 L Albumin 2.0 L Prealbumin Urine WBC (Auto) Urine Creatinine Urine Total Protein 09/15/17 09/15/17 09/16/17 18:12 23:34 05:22 WBC RBC Hgb Hct MCV MCHC RDW Plt Count Seg Neuts % (Manual) Lymphocytes % (Manual) Seg Neutrophils # Man Lymphocytes # (Manual) PT INR APTT POC ABG pH POC ABG pCO2 POC ABG pO2 Sodium Potassium Chloride Carbon Dioxide BUN Creatinine Glucose POC Glucose 276 H 275 H 306 H Lactic Acid Calcium Phosphorus Total Bilirubin AST ALT C-Reactive Protein Total Protein Albumin Prealbumin Urine WBC (Auto) Urine Creatinine Urine Total Protein 09/16/17 09/16/17 09/16/17 06:15 06:15 13:07 WBC RBC 2.75 L Hgb 8.8 L Hct 27.1 L MCV 99 H MCHC RDW 20.2 H Plt Count 42 L Seg Neuts % (Manual) 93.0 H Lymphocytes % (Manual) 3.0 L Seg Neutrophils # Man 8.5 H Lymphocytes # (Manual) 0.3 L PT INR APTT POC ABG pH 7.175 L POC ABG pCO2 POC ABG pO2 71 L Sodium 136 L Potassium Chloride Carbon Dioxide 15 L BUN 110 H Creatinine 4.1 H Glucose 265 H POC Glucose Lactic Acid Calcium 7.6 L Phosphorus 9.00 H Total Bilirubin 1.30 H AST 227 H ALT 966 H C-Reactive Protein Total Protein 4.3 L Albumin 1.8 L Prealbumin Urine WBC (Auto) Urine Creatinine Urine Total Protein Chest x-ray: image reviewed (bilateral [id number] effusions and volume overload pattern) Allied health notes reviewed: nursing
[2017-09-16] MEDS ORDERED: SODIUM BICARBONATE IV ONE (17:00)
[2017-09-16] MEDS ORDERED: TPN ADULT 2,400 ML IV SCH (20:00)
[2017-09-16] MEDS: DIFLUCAN 200 MG/100 ML BAG IV SCH (22:16)
[2017-09-16] MEDS: CORDARONE 900 MG in D5W 482 ML IV SCH (22:32)
--- NOTE | 2017-09-17 00:23 | Consultation ---
REFERRING PHYSICIAN: Dr. Ayala REASON FOR CONSULTATION: Thrombocytopenia. HISTORY OF PRESENT ILLNESS: The patient is an unfortunate male, who is 66 years old, transferred from LT[facility] following the change in mental status with hypotension and tachycardia. He was found to have a progressive abdominal distention and abdominal discomfort in LTAC, and he was evaluated by General Surgery for a dislodged PEG tube. It was replaced on the and confirmed to be in position. He started back on tube feeding, but had worsening mental status, was again evaluated by Surgery and was found to have pneumoperitoneum, and underwent laparotomy and was found to have a gangrenous gallbladder, which was removed yesterday. During his hospital course, the patient has had progressive decline in his platelet count, which on the was 83 and now it is 42. The patient had been on subcutaneous heparin, which has been discontinued now. His liver function tests have shown abnormality with ALT more than 1000, AST 263. His bili is 1.5. The patient is currently in the ICU. His other pertinent labs have shown his creatinine also to be high at 3.9, lactic acid high at 2.2 on 09/13/2017 which came down to 1.8. He is being seen by Infectious Disease on multiple antibiotics, which include Diflucan, Levaquin and Flagyl. His heparin subcutaneous was stopped on 09/16/2017, was started on 09/13/2017. PHYSICAL EXAMINATION: GENERAL: The patient has a trach. He does respond to verbal command, but is not following commands. CHEST: Decreased breath sounds. CARDIOVASCULAR SYSTEM: Regular. ABDOMEN: Distended. Midline incision is bandaged. LABORATORY WORK: Pertinent labs, patient's hemoglobin today is 8.8, white count 9.1, platelets 42,000. LFTs show ALT of 966, AST 227, bilirubin of 1.3, creatinine of 4.1. ASSESSMENT: Thrombocytopenia, possibly secondary to hypoperfusion and infection, rule out other causes including heparin-induced thrombocytopenia. PLAN: At this time, continue to monitor. Heparin has been discontinued. We will order heparin-induced thrombocytopenia assay. Monitor CBC. Transfuse as needed. JOB# [id number] GKS/[id number]
[2017-09-17] MEDS: SODIUM CHLORIDE FLUSH SYRINGE 10 ML IV SCH ×2 (01:30→15:58)
[2017-09-17] MEDS: HumaLOG SUB-Q SCH ×3 (02:02→14:30)
[2017-09-17] MEDS: DUONEB *Not for PRN Use IH SCH ×3 (04:54→16:17)
[2017-09-17] MEDS: FLAGYL 500 MG/100 ML 500 MG/100 ML BAG IV SCH ×3 (05:52→21:34)
[2017-09-17 05:53] LABS: Hemoglobin 7.4 gm/dl (11.8-15.2); Mean Corpuscular HGB Conc 32 % (32-34); Mean Corpuscular Hemoglobin 31 pg (28-32); Mean Corpuscular Volume 96 fl (84-94); Red Blood Count 2.39 M/mm3 (3.65-5.03); Red Cell Distribution Width 19.6 % (13.2-15.2)
[2017-09-17 06:12] LABS: Platelet Count 24 K/mm3 (140-440)
[2017-09-17 06:56] LABS: Albumin 1.7 g/dL (3.9-5); Calcium 7.5 mg/dL (8.4-10.2)
[2017-09-17 07:15] LABS: Acanthocytes Few; Anisocytosis 1+; Band Neutrophils # (Manual) 1.4 K/mm3; Basophils % (Manual) 0 % (0.0-1.8); Burr Cells 1+; Eosinophils % (Manual) 0 % (0.0-4.3); Hypochromasia 1+; Ovalocytes 1+; Total Cells Counted 100
[2017-09-17 07:16] LABS: Platelet Estimate Appears Decreased
[2017-09-17] MEDS ORDERED: VANCOMYCIN PHARMACY TO DOSE IV SCH (08:00)
--- NOTE | 2017-09-17 08:41 | Progress Note ---
Assessment and Plan - Patient Problems (1) Acute renal failure due to tubular necrosis Current Visit: No Status: Acute Plan to address problem: Oliguric Acute tubular necrosis secondary to hypotension/sepsis. Kidney function was worsening. Follow-up electrolytes and renal function. Tolerated dialysis yesterday. Hemodialysis again today and tomorrow (2) Severe sepsis with septic shock Current Visit: Yes Status: Acute Plan to address problem: Continue antibiotics, vasopressors and wean to a mean arterial pressure more than 65 mmHg. Follow up Cultures (3) Hyperkalemia Current Visit: Yes Status: Acute Plan to address problem: Potassium has improved. Continue to follow up (4) Acute respiratory failure with hypoxia Current Visit: Yes Status: Acute Plan to address problem: Ventilator management by pulmonary (5) Peritonitis Current Visit: Yes Status: Acute Plan to address problem: S/p Exploratory laparotomy, peritoneal lavage, cholecystectomy, placement of gastrojejunal feeding tube, closure of abdomen. Continue antibiotics Subjective Date of service: 09/17/17 Principal diagnosis: Septic shock. peritonitis, dislodged PEG tube, WILLIAM Interval history: Patient seen lying in bed in ICU. He is intubated on the ventilator. No family at the bedside. Eyes are open and he is interacting and communicating by mouthing words. On ventilator AC 450/21/40% PEEP of 6 Off of Levophed Objective - Exam Narrative Exam: Middle-aged female lying in bed in no acute distress HEENT: NCAT, pink clear oropharynx Neck: Supple, no venous distention, trach intact on ventilator CVS: S1S2 RRR with no murmur, rub or gallop Chest: Diminished breath sounds bilaterally Abdomen: Distended, soft, tender, bowel sounds diminished, dressings intact, edema trunk Extremities: 3+ Pitting edema, heel protectors intact, Skin: warm and dry Genitourinary deferred, [place] catheter draining clear urine Neuro: Drowsy, - Vital Signs Vital signs: Vital Signs - 12hr 09/16/17 09/16/17 09/16/17 20:45 20:46 20:55 Temperature Pulse Rate 99 H 95 H 97 H Pulse Rate [ Anterior Bilateral Throughout] Respiratory 16 Rate Respiratory Rate [Anterior Bilateral Throughout] Respiratory Rate [Back] Blood Pressure 128/66 131/59 130/65 O2 Sat by Pulse 99 97 Oximetry O2 Sat by Pulse Oximetry [ Anterior Bilateral Throughout] O2 Sat by Pulse Oximetry [ Assessment] 09/16/17 09/16/17 09/16/17 21:00 21:01 21:05 Temperature Pulse Rate 89 105 H Pulse Rate [ 84 Anterior Bilateral Throughout] Respiratory 18 17 Rate Respiratory 16 Rate [Anterior Bilateral Throughout] Respiratory Rate [Back] Blood Pressure 129/68 129/68 O2 Sat by Pulse 99 99 Oximetry O2 Sat by Pulse Oximetry [ Anterior Bilateral Throughout] O2 Sat by Pulse Oximetry [ Assessment] 09/16/17 09/16/17 09/16/17 21:15 21:16 21:30 Temperature 98.9 F Pulse Rate 93 H 107 H 100 H Pulse Rate [ Anterior Bilateral Throughout] Respiratory 19 17 21 Rate Respiratory Rate [Anterior Bilateral Throughout] Respiratory Rate [Back] Blood Pressure 126/70 126/70 137/66 O2 Sat by Pulse 99 98 Oximetry O2 Sat by Pulse 99 Oximetry [ Anterior Bilateral Throughout] O2 Sat by Pulse Oximetry [ Assessment] 09/16/17 09/16/17 09/16/17 21:46 22:00 22:09 Temperature Pulse Rate 97 H 103 H Pulse Rate [ 86 Anterior Bilateral Throughout] Respiratory 16 18 Rate Respiratory 18 Rate [Anterior Bilateral Throughout] Respiratory 16 Rate [Back] Blood Pressure 141/66 136/68 O2 Sat by Pulse 99 98 Oximetry O2 Sat by Pulse Oximetry [ Anterior Bilateral Throughout] O2 Sat by Pulse Oximetry [ Assessment] 09/16/17 09/16/17 09/16/17 22:16 22:30 22:46 Temperature Pulse Rate 100 H 103 H 95 H Pulse Rate [ Anterior Bilateral Throughout] Respiratory 24 23 19 Rate Respiratory Rate [Anterior Bilateral Throughout] Respiratory Rate [Back] Blood Pressure 133/61 139/58 144/52 O2 Sat by Pulse 99 98 97 Oximetry O2 Sat by Pulse Oximetry [ Anterior Bilateral Throughout] O2 Sat by Pulse Oximetry [ Assessment] 09/16/17 09/16/17 09/16/17 23:00 23:16 23:30 Temperature Pulse Rate 102 H 93 H 90 Pulse Rate [ Anterior Bilateral Throughout] Respiratory 17 24 15 Rate Respiratory Rate [Anterior Bilateral Throughout] Respiratory Rate [Back] Blood Pressure 133/70 137/67 127/70 O2 Sat by Pulse 95 94 96 Oximetry O2 Sat by Pulse Oximetry [ Anterior Bilateral Throughout] O2 Sat by Pulse Oximetry [ Assessment] 09/16/17 09/16/17 09/17/17 23:46 23:57 00:00 Temperature 99.0 F Pulse Rate 95 H 102 H 104 H Pulse Rate [ Anterior Bilateral Throughout] Respiratory 18 20 Rate Respiratory Rate [Anterior Bilateral Throughout] Respiratory Rate [Back] Blood Pressure 120/66 142/67 137/72 O2 Sat by Pulse 97 97 97 Oximetry O2 Sat by Pulse Oximetry [ Anterior Bilateral Throughout] O2 Sat by Pulse Oximetry [ Assessment] 09/17/17 09/17/17 09/17/17 00:16 00:30 00:46 Temperature Pulse Rate 102 H 94 H 107 H Pulse Rate [ Anterior Bilateral Throughout] Respiratory 17 20 20 Rate Respiratory Rate [Anterior Bilateral Throughout] Respiratory Rate [Back] Blood Pressure 138/55 125/62 142/71 O2 Sat by Pulse 97 98 99 Oximetry O2 Sat by Pulse Oximetry [ Anterior Bilateral Throughout] O2 Sat by Pulse Oximetry [ Assessment] 09/17/17 09/17/17 09/17/17 01:00 01:16 01:30 Temperature Pulse Rate 97 H 100 H 100 H Pulse Rate [ Anterior Bilateral Throughout] Respiratory 19 17 15 Rate Respiratory Rate [Anterior Bilateral Throughout] Respiratory Rate [Back] Blood Pressure 133/67 145/67 132/62 O2 Sat by Pulse 98 98 98 Oximetry O2 Sat by Pulse Oximetry [ Anterior Bilateral Throughout] O2 Sat by Pulse Oximetry [ Assessment] 09/17/17 09/17/17 09/17/17 01:46 02:00 02:16 Temperature Pulse Rate 94 H 103 H 96 H Pulse Rate [ Anterior Bilateral Throughout] Respiratory 21 19 18 Rate Respiratory Rate [Anterior Bilateral Throughout] Respiratory Rate [Back] Blood Pressure 134/70 124/63 129/57 O2 Sat by Pulse 98 98 98 Oximetry O2 Sat by Pulse Oximetry [ Anterior Bilateral Throughout] O2 Sat by Pulse Oximetry [ Assessment] 09/17/17 09/17/17 09/17/17 02:30 02:46 03:00 Temperature Pulse Rate 105 H 98 H 97 H Pulse Rate [ Anterior Bilateral Throughout] Respiratory 15 14 15 Rate Respiratory Rate [Anterior Bilateral Throughout] Respiratory Rate [Back] Blood Pressure 122/66 120/64 129/64 O2 Sat by Pulse 98 99 98 Oximetry O2 Sat by Pulse Oximetry [ Anterior Bilateral Throughout] O2 Sat by Pulse 99 Oximetry [ Assessment] 09/17/17 09/17/17 09/17/17 03:16 03:30 03:46 Temperature Pulse Rate 83 93 H 94 H Pulse Rate [ Anterior Bilateral Throughout] Respiratory 15 14 15 Rate Respiratory Rate [Anterior Bilateral Throughout] Respiratory Rate [Back] Blood Pressure 123/57 123/63 117/55 O2 Sat by Pulse 99 98 99 Oximetry O2 Sat by Pulse Oximetry [ Anterior Bilateral Throughout] O2 Sat by Pulse Oximetry [ Assessment] 09/17/17 09/17/17 09/17/17 04:00 04:16 04:30 Temperature 99.1 F Pulse Rate 99 H 91 H 102 H Pulse Rate [ Anterior Bilateral Throughout] Respiratory 18 14 13 Rate Respiratory Rate [Anterior Bilateral Throughout] Respiratory Rate [Back] Blood Pressure 117/61 130/59 124/56 O2 Sat by Pulse 98 99 98 Oximetry O2 Sat by Pulse Oximetry [ Anterior Bilateral Throughout] O2 Sat by Pulse Oximetry [ Assessment] 09/17/17 09/17/17 09/17/17 04:46 04:48 04:54 Temperature Pulse Rate 91 H 92 H Pulse Rate [ 84 Anterior Bilateral Throughout] Respiratory 15 Rate Respiratory 20 Rate [Anterior Bilateral Throughout] Respiratory Rate [Back] Blood Pressure 121/58 121/48 O2 Sat by Pulse 99 99 Oximetry O2 Sat by Pulse Oximetry [ Anterior Bilateral Throughout] O2 Sat by Pulse Oximetry [ Assessment] 09/17/17 09/17/17 09/17/17 05:00 05:16 05:30 Temperature Pulse Rate 107 H 97 H 101 H Pulse Rate [ Anterior Bilateral Throughout] Respiratory 15 17 20 Rate Respiratory Rate [Anterior Bilateral Throughout] Respiratory Rate [Back] Blood Pressure 123/62 111/61 116/63 O2 Sat by Pulse 99 100 98 Oximetry O2 Sat by Pulse Oximetry [ Anterior Bilateral Throughout] O2 Sat by Pulse Oximetry [ Assessment] 09/17/17 09/17/17 09/17/17 05:46 06:00 06:16 Temperature Pulse Rate 88 97 H 88 Pulse Rate [ Anterior Bilateral Throughout] Respiratory 18 22 17 Rate Respiratory Rate [Anterior Bilateral Throughout] Respiratory Rate [Back] Blood Pressure 123/59 116/62 114/57 O2 Sat by Pulse 98 97 100 Oximetry O2 Sat by Pulse Oximetry [ Anterior Bilateral Throughout] O2 Sat by Pulse Oximetry [ Assessment] 09/17/17 09/17/17 09/17/17 06:30 06:46 07:00 Temperature 98.6 F Pulse Rate 93 H 90 94 H Pulse Rate [ Anterior Bilateral Throughout] Respiratory 16 18 15 Rate Respiratory Rate [Anterior Bilateral Throughout] Respiratory Rate [Back] Blood Pressure 123/60 116/56 120/51 O2 Sat by Pulse 98 100 98 Oximetry O2 Sat by Pulse Oximetry [ Anterior Bilateral Throughout] O2 Sat by Pulse Oximetry [ Assessment] 09/17/17 09/17/17 09/17/17 07:16 07:30 07:46 Temperature Pulse Rate 93 H 91 H 98 H Pulse Rate [ Anterior Bilateral Throughout] Respiratory 18 13 14 Rate Respiratory Rate [Anterior Bilateral Throughout] Respiratory Rate [Back] Blood Pressure 110/59 122/55 121/64 O2 Sat by Pulse 100 100 98 Oximetry O2 Sat by Pulse Oximetry [ Anterior Bilateral Throughout] O2 Sat by Pulse Oximetry [ Assessment] - Lab 09/17/17 05:30 09/17/17 05:30 Most recent lab results Calcium 7.5 mg/dL (8.4-10.2) L 09/17/17 05:30 Phosphorus 6.10 mg/dL (2.5-4.5) H D 09/17/17 05:30 Magnesium 1.90 mg/dL (1.7-2.3) 09/17/17 05:30 Urine Creatinine 180.6 mg/dL (0.1-20.0) H 09/13/17 14:47 Urine Sodium 29 mmol/L 09/13/17 14:47 Urine Total Protein 289 mg/dL (5-11.8) H 09/13/17 14:47
--- NOTE | 2017-09-17 08:49 | Progress Note ---
Assessment and Plan Sepsis with septic shock improving Continue with iv antibiotic per ID Cautious iv hydration b/c of Acute on chronic renal failure - Peritonitis from dislodged PEG tube and sepsis s/p lap with peritoneal lavage and repair of gastrostomy, removal of PEG tube Continue with iv levquin, Flagyl and diflucan - Gangerous gallbaldder s/p cholecyctectomy - Acute on Chronic renal failure requiring HD Improving - Acute on chronic respiratory failure On Mechanical ventilation via trach continue with bronchodilator Pulm Following - Anemia - of chronic disease s/p blood transfusion - Transaminasemia from gangerous gall bladder s/p cholecyctectomy improving Will trend. anticipate improvement with iv hydration - Metabolic acidosis from septic shock continue with fluid resuscitation - Possible HIT Off heparin Hematology following - DVT PPX with lovenox Subjective Date of service: 09/17/17 Principal diagnosis: Septic shock. peritonitis, dislodged PEG tube, WILLIAM Interval history: Pt seen and examined. s/p Closure of abdominal wound with cholecyctectomy of gangrenous gall bladder. Lying quietly in bed. Still in ICU. Discussed with nursing staff. No overnight event reported to me. Off pressors Objective - Exam Narrative Exam: Constitutional: On mechanical ventilation through tracheostomy. Awake Head: Normocephalic atraumatic Eyes: Pupils are equal round and reactive to light Nose: No enlarged turbinates, no septal deviation. Mouth: Moist mucous membranes. Neck: Supple no thyromegaly. No bruit. No JVD Heart: Regular rate and rhythm, S1-S2 abnormal. No rubs murmurs or gallop Lungs: Decreased breath sound bilaterally. No rhonchi Abdomen: Soft, Dry surgical wound dressing nontender. Extremities: 2+ edema no cyanosis and no clubbing. Neuro: Alert oriented Oriented x1. No focal sensory or motor deficit. Skin: No rashes no hyperemic spots Psychiatry: Euthymic. Calm. - Constitutional Vitals: Vital Signs - 12hr 09/16/17 09/16/17 09/16/17 20:46 20:55 21:00 Temperature Pulse Rate 95 H 97 H 89 Pulse Rate [ Anterior Bilateral Throughout] Respiratory 16 18 Rate Respiratory Rate [Anterior Bilateral Throughout] Respiratory Rate [Back] Blood Pressure 131/59 130/65 129/68 O2 Sat by Pulse 99 97 99 Oximetry O2 Sat by Pulse Oximetry [ Anterior Bilateral Throughout] O2 Sat by Pulse Oximetry [ Assessment] 09/16/17 09/16/17 09/16/17 21:01 21:05 21:15 Temperature 98.9 F Pulse Rate 105 H 93 H Pulse Rate [ 84 Anterior Bilateral Throughout] Respiratory 17 19 Rate Respiratory 16 Rate [Anterior Bilateral Throughout] Respiratory Rate [Back] Blood Pressure 129/68 126/70 O2 Sat by Pulse 99 Oximetry O2 Sat by Pulse 99 Oximetry [ Anterior Bilateral Throughout] O2 Sat by Pulse Oximetry [ Assessment] 09/16/17 09/16/17 09/16/17 21:16 21:30 21:46 Temperature Pulse Rate 107 H 100 H 97 H Pulse Rate [ Anterior Bilateral Throughout] Respiratory 17 21 16 Rate Respiratory Rate [Anterior Bilateral Throughout] Respiratory Rate [Back] Blood Pressure 126/70 137/66 141/66 O2 Sat by Pulse 99 98 99 Oximetry O2 Sat by Pulse Oximetry [ Anterior Bilateral Throughout] O2 Sat by Pulse Oximetry [ Assessment] 09/16/17 09/16/17 09/16/17 22:00 22:09 22:16 Temperature Pulse Rate 103 H 100 H Pulse Rate [ 86 Anterior Bilateral Throughout] Respiratory 18 24 Rate Respiratory 18 Rate [Anterior Bilateral Throughout] Respiratory 16 Rate [Back] Blood Pressure 136/68 133/61 O2 Sat by Pulse 98 99 Oximetry O2 Sat by Pulse Oximetry [ Anterior Bilateral Throughout] O2 Sat by Pulse Oximetry [ Assessment] 09/16/17 09/16/17 09/16/17 22:30 22:46 23:00 Temperature Pulse Rate 103 H 95 H 102 H Pulse Rate [ Anterior Bilateral Throughout] Respiratory 23 19 17 Rate Respiratory Rate [Anterior Bilateral Throughout] Respiratory Rate [Back] Blood Pressure 139/58 144/52 133/70 O2 Sat by Pulse 98 97 95 Oximetry O2 Sat by Pulse Oximetry [ Anterior Bilateral Throughout] O2 Sat by Pulse Oximetry [ Assessment] 09/16/17 09/16/17 09/16/17 23:16 23:30 23:46 Temperature Pulse Rate 93 H 90 95 H Pulse Rate [ Anterior Bilateral Throughout] Respiratory 24 15 18 Rate Respiratory Rate [Anterior Bilateral Throughout] Respiratory Rate [Back] Blood Pressure 137/67 127/70 120/66 O2 Sat by Pulse 94 96 97 Oximetry O2 Sat by Pulse Oximetry [ Anterior Bilateral Throughout] O2 Sat by Pulse Oximetry [ Assessment] 09/16/17 09/17/17 09/17/17 23:57 00:00 00:16 Temperature 99.0 F Pulse Rate 102 H 104 H 102 H Pulse Rate [ Anterior Bilateral Throughout] Respiratory 20 17 Rate Respiratory Rate [Anterior Bilateral Throughout] Respiratory Rate [Back] Blood Pressure 142/67 137/72 138/55 O2 Sat by Pulse 97 97 97 Oximetry O2 Sat by Pulse Oximetry [ Anterior Bilateral Throughout] O2 Sat by Pulse Oximetry [ Assessment] 09/17/17 09/17/17 09/17/17 00:30 00:46 01:00 Temperature Pulse Rate 94 H 107 H 97 H Pulse Rate [ Anterior Bilateral Throughout] Respiratory 20 20 19 Rate Respiratory Rate [Anterior Bilateral Throughout] Respiratory Rate [Back] Blood Pressure 125/62 142/71 133/67 O2 Sat by Pulse 98 99 98 Oximetry O2 Sat by Pulse Oximetry [ Anterior Bilateral Throughout] O2 Sat by Pulse Oximetry [ Assessment] 09/17/17 09/17/17 09/17/17 01:16 01:30 01:46 Temperature Pulse Rate 100 H 100 H 94 H Pulse Rate [ Anterior Bilateral Throughout] Respiratory 17 15 21 Rate Respiratory Rate [Anterior Bilateral Throughout] Respiratory Rate [Back] Blood Pressure 145/67 132/62 134/70 O2 Sat by Pulse 98 98 98 Oximetry O2 Sat by Pulse Oximetry [ Anterior Bilateral Throughout] O2 Sat by Pulse Oximetry [ Assessment] 09/17/17 09/17/17 09/17/17 02:00 02:16 02:30 Temperature Pulse Rate 103 H 96 H 105 H Pulse Rate [ Anterior Bilateral Throughout] Respiratory 19 18 15 Rate Respiratory Rate [Anterior Bilateral Throughout] Respiratory Rate [Back] Blood Pressure 124/63 129/57 122/66 O2 Sat by Pulse 98 98 98 Oximetry O2 Sat by Pulse Oximetry [ Anterior Bilateral Throughout] O2 Sat by Pulse Oximetry [ Assessment] 09/17/17 09/17/17 09/17/17 02:46 03:00 03:16 Temperature Pulse Rate 98 H 97 H 83 Pulse Rate [ Anterior Bilateral Throughout] Respiratory 14 15 15 Rate Respiratory Rate [Anterior Bilateral Throughout] Respiratory Rate [Back] Blood Pressure 120/64 129/64 123/57 O2 Sat by Pulse 99 98 99 Oximetry O2 Sat by Pulse Oximetry [ Anterior Bilateral Throughout] O2 Sat by Pulse 99 Oximetry [ Assessment] 09/17/17 09/17/17 09/17/17 03:30 03:46 04:00 Temperature 99.1 F Pulse Rate 93 H 94 H 99 H Pulse Rate [ Anterior Bilateral Throughout] Respiratory 14 15 18 Rate Respiratory Rate [Anterior Bilateral Throughout] Respiratory Rate [Back] Blood Pressure 123/63 117/55 117/61 O2 Sat by Pulse 98 99 98 Oximetry O2 Sat by Pulse Oximetry [ Anterior Bilateral Throughout] O2 Sat by Pulse Oximetry [ Assessment] 09/17/17 09/17/17 09/17/17 04:16 04:30 04:46 Temperature Pulse Rate 91 H 102 H 91 H Pulse Rate [ Anterior Bilateral Throughout] Respiratory 14 13 15 Rate Respiratory Rate [Anterior Bilateral Throughout] Respiratory Rate [Back] Blood Pressure 130/59 124/56 121/58 O2 Sat by Pulse 99 98 99 Oximetry O2 Sat by Pulse Oximetry [ Anterior Bilateral Throughout] O2 Sat by Pulse Oximetry [ Assessment] 09/17/17 09/17/17 09/17/17 04:48 04:54 05:00 Temperature Pulse Rate 92 H 107 H Pulse Rate [ 84 Anterior Bilateral Throughout] Respiratory 15 Rate Respiratory 20 Rate [Anterior Bilateral Throughout] Respiratory Rate [Back] Blood Pressure 121/48 123/62 O2 Sat by Pulse 99 99 Oximetry O2 Sat by Pulse Oximetry [ Anterior Bilateral Throughout] O2 Sat by Pulse Oximetry [ Assessment] 09/17/17 09/17/17 09/17/17 05:16 05:30 05:46 Temperature Pulse Rate 97 H 101 H 88 Pulse Rate [ Anterior Bilateral Throughout] Respiratory 17 20 18 Rate Respiratory Rate [Anterior Bilateral Throughout] Respiratory Rate [Back] Blood Pressure 111/61 116/63 123/59 O2 Sat by Pulse 100 98 98 Oximetry O2 Sat by Pulse Oximetry [ Anterior Bilateral Throughout] O2 Sat by Pulse Oximetry [ Assessment] 09/17/17 09/17/17 09/17/17 06:00 06:16 06:30 Temperature Pulse Rate 97 H 88 93 H Pulse Rate [ Anterior Bilateral Throughout] Respiratory 22 17 16 Rate Respiratory Rate [Anterior Bilateral Throughout] Respiratory Rate [Back] Blood Pressure 116/62 114/57 123/60 O2 Sat by Pulse 97 100 98 Oximetry O2 Sat by Pulse Oximetry [ Anterior Bilateral Throughout] O2 Sat by Pulse Oximetry [ Assessment] 09/17/17 09/17/17 09/17/17 06:46 07:00 07:16 Temperature 98.6 F Pulse Rate 90 94 H 93 H Pulse Rate [ Anterior Bilateral Throughout] Respiratory 18 15 18 Rate Respiratory Rate [Anterior Bilateral Throughout] Respiratory Rate [Back] Blood Pressure 116/56 120/51 110/59 O2 Sat by Pulse 100 98 100 Oximetry O2 Sat by Pulse Oximetry [ Anterior Bilateral Throughout] O2 Sat by Pulse Oximetry [ Assessment] 09/17/17 09/17/17 07:30 07:46 Temperature Pulse Rate 91 H 98 H Pulse Rate [ Anterior Bilateral Throughout] Respiratory 13 14 Rate Respiratory Rate [Anterior Bilateral Throughout] Respiratory Rate [Back] Blood Pressure 122/55 121/64 O2 Sat by Pulse 100 98 Oximetry O2 Sat by Pulse Oximetry [ Anterior Bilateral Throughout] O2 Sat by Pulse Oximetry [ Assessment] - Labs CBC & Chem 7: 09/17/17 05:30 09/17/17 05:30 Labs: Abnormal lab results 09/16/17 09/16/17 09/16/17 Range/Units 06:15 12:10 13:07 RBC (3.65-5.03) M/mm3 Hgb (11.8-15.2) gm/dl Hct (35.5-45.6) % MCV (84-94) fl RDW (13.2-15.2) % Plt Count (140-440) K/mm3 Seg Neuts % (Manual) 93.0 H (40.0-70.0) % Lymphocytes % (Manual) 3.0 L (13.4-35.0) % Seg Neutrophils # Man 8.5 H (1.8-7.7) K/mm3 Lymphocytes # (Manual) 0.3 L (1.2-5.4) K/mm3 POC ABG pH 7.175 L (7.35-7.45) POC ABG pO2 71 L (80-105) BUN (9-20) mg/dL Creatinine (0.8-1.5) mg/dL Glucose (75-100) mg/dL POC Glucose 277 H (70-105) Calcium (8.4-10.2) mg/dL Phosphorus (2.5-4.5) mg/dL AST (5-40) units/L ALT (7-56) units/L Total Protein (6.3-8.2) g/dL Albumin (3.9-5) g/dL 09/16/17 09/16/17 09/17/17 Range/Units 17:33 23:42 05:30 RBC 2.39 L (3.65-5.03) M/mm3 Hgb 7.4 L (11.8-15.2) gm/dl Hct 23.0 L (35.5-45.6) % MCV 96 H (84-94) fl RDW 19.6 H (13.2-15.2) % Plt Count 24 L (140-440) K/mm3 Seg Neuts % (Manual) 76.0 H (40.0-70.0) % Lymphocytes % (Manual) 5.0 L (13.4-35.0) % Seg Neutrophils # Man (1.8-7.7) K/mm3 Lymphocytes # (Manual) 0.4 L (1.2-5.4) K/mm3 POC ABG pH (7.35-7.45) POC ABG pO2 (80-105) BUN (9-20) mg/dL Creatinine (0.8-1.5) mg/dL Glucose (75-100) mg/dL POC Glucose 289 H 262 H (70-105) Calcium (8.4-10.2) mg/dL Phosphorus (2.5-4.5) mg/dL AST (5-40) units/L ALT (7-56) units/L Total Protein (6.3-8.2) g/dL Albumin (3.9-5) g/dL 09/17/18 / Range/Units 05:30 05:39 RBC (3.65-5.03) M/mm3 Hgb (11.8-15.2) gm/dl Hct (35.5-45.6) % MCV (84-94) fl RDW (13.2-15.2) % Plt Count (140-440) K/mm3 Seg Neuts % (Manual) (40.0-70.0) % Lymphocytes % (Manual) (13.4-35.0) % Seg Neutrophils # Man (1.8-7.7) K/mm3 Lymphocytes # (Manual) (1.2-5.4) K/mm3 POC ABG pH (7.35-7.45) POC ABG pO2 (80-105) BUN 93 H (9-20) mg/dL Creatinine 3.6 H (0.8-1.5) mg/dL Glucose 201 H (75-100) mg/dL POC Glucose 218 H (70-105) Calcium 7.5 L (8.4-10.2) mg/dL Phosphorus 6.10 H D (2.5-4.5) mg/dL AST 62 H (5-40) units/L ALT 619 H (7-56) units/L Total Protein 4.1 L (6.3-8.2) g/dL Albumin 1.7 L (3.9-5) g/dL
--- NOTE | 2017-09-17 08:56 | Progress Note ---
Assessment and Plan Assessment: 1) Septic shock: back on pressors - levophed at 6; etiology - acute peritonitis +/- UTI 2) Acute peritonitis: from gastric content spill from dislodge PEG -CT showed pneumoperitoneum and PEG tube bumper outside of stomach. -S/P Exploratory laparotomy, repair of gastrotomy, removal of PEG tube, peritoneal lavage, temporary closure of abdomen with Abthera Vac on 09/13/17 3) WILLIAM 4) Acute encephalopathy 5) CA-UTI 6) History of Recent presumed VAP: Treated with cefepime/vano x 10 days. 7) History of Recent Acute respiratory failure: for airway protection - s/p trach 8) History of Right lower extremity chronic ischemia with short distance claudication: -S/P elective right common femoral endarterectomy with patch angioplasty, bilateral common iliac and right external artery stenting on 08/11/17 9) History of Ruptured pseudoaneurysm left groin/external iliac: -CTA showed retroperitoneal hemorrhage and bladder thickening. -S/P deployment of new Viabond stent graft across the inguinal ligament into the common femoral artery on 08/13/17. 10) DECK HAND in blood cultures ? Plan: -repeat blood cx today -continue cefepime and vanco - D2 -continue flagyl and fluconazole - D5 Guarded prognosis Thank you for your consultation, will follow up with you. Tasia Baldwin MD Infectious Diseases Specialist [facility] ([facility] M [phone] O [phone] Subjective Date of service: 09/17/17 Principal diagnosis: Septic shock. peritonitis, dislodged PEG tube, WILLIAM Interval history: Remains on the vent via trach A/C 40% p 6, alert, no fever, off pressors this am. On amiodarone gtt. On TPN. Microbiology: Blood cultures: 09/01 neg 09/14 DECK HAND 1 of 4 bottles Urine cultures: Respiratory cultures: 09/01 usual resp rudy Antibiotics: cefepime 09/16 vanco 09/16 metronidazole 09/12 fluconazole 09/12 Antibiotics: levaquin 09/12 Objective - Exam Narrative Exam: General appearance: sedated in NAD Eyes: anicteric sclerae, moist conjunctivae; no lid-lag; PERRLA HENT: Atraumatic; oropharynx limited Lungs: CTA, with normal respiratory effort and no intercostal retractions CV: RRR, no murmurs Abdomen: Soft, midline wound with wound VAC Extremities: No peripheral edema or extremity lymphadenopathy Skin: Normal temperature, turgor and texture; no rash, ulcers or subcutaneous nodules Psych: sedated Neuro: sedated Lines: barrientos, right PICC - Constitutional Vitals: Vital Signs Temp Pulse Resp BP Pulse Ox 98.6 F 98 H 14 121/64 98 09/17/17 07:00 09/17/17 07:46 09/17/17 07:46 09/17/17 07:46 09/17/17 07:46 Temperature -Last 24 Hours Temperature 98.6 F Temperature 99.1 F Temperature 99.0 F Temperature 98.9 F Temperature 98.9 F Temperature 98.9 F Temperature 98.8 F Temperature 98.8 F Temperature 98.6 F - Labs CBC & Chem 7: 09/17/17 05:30 09/17/17 05:30 Labs: Abnormal lab results 09/16/17 09/16/17 09/16/17 Range/Units 06:15 12:10 13:07 RBC (3.65-5.03) M/mm3 Hgb (11.8-15.2) gm/dl Hct (35.5-45.6) % MCV (84-94) fl RDW (13.2-15.2) % Plt Count (140-440) K/mm3 Seg Neuts % (Manual) 93.0 H (40.0-70.0) % Lymphocytes % (Manual) 3.0 L (13.4-35.0) % Seg Neutrophils # Man 8.5 H (1.8-7.7) K/mm3 Lymphocytes # (Manual) 0.3 L (1.2-5.4) K/mm3 POC ABG pH 7.175 L (7.35-7.45) POC ABG pO2 71 L (80-105) BUN (9-20) mg/dL Creatinine (0.8-1.5) mg/dL Glucose (75-100) mg/dL POC Glucose 277 H (70-105) Calcium (8.4-10.2) mg/dL Phosphorus (2.5-4.5) mg/dL AST (5-40) units/L ALT (7-56) units/L Total Protein (6.3-8.2) g/dL Albumin (3.9-5) g/dL 09/16/17 09/16/17 09/17/17 Range/Units 17:33 23:42 05:30 RBC 2.39 L (3.65-5.03) M/mm3 Hgb 7.4 L (11.8-15.2) gm/dl Hct 23.0 L (35.5-45.6) % MCV 96 H (84-94) fl RDW 19.6 H (13.2-15.2) % Plt Count 24 L (140-440) K/mm3 Seg Neuts % (Manual) 76.0 H (40.0-70.0) % Lymphocytes % (Manual) 5.0 L (13.4-35.0) % Seg Neutrophils # Man (1.8-7.7) K/mm3 Lymphocytes # (Manual) 0.4 L (1.2-5.4) K/mm3 POC ABG pH (7.35-7.45) POC ABG pO2 (80-105) BUN (9-20) mg/dL Creatinine (0.8-1.5) mg/dL Glucose (75-100) mg/dL POC Glucose 289 H 262 H (70-105) Calcium (8.4-10.2) mg/dL Phosphorus (2.5-4.5) mg/dL AST (5-40) units/L ALT (7-56) units/L Total Protein (6.3-8.2) g/dL Albumin (3.9-5) g/dL 09/17/17 09/17/17 Range/Units 05:30 05:39 RBC (3.65-5.03) M/mm3 Hgb (11.8-15.2) gm/dl Hct (35.5-45.6) % MCV (84-94) fl RDW (13.2-15.2) % Plt Count (140-440) K/mm3 Seg Neuts % (Manual) (40.0-70.0) % Lymphocytes % (Manual) (13.4-35.0) % Seg Neutrophils # Man (1.8-7.7) K/mm3 Lymphocytes # (Manual) (1.2-5.4) K/mm3 POC ABG pH (7.35-7.45) POC ABG pO2 (80-105) BUN 93 H (9-20) mg/dL Creatinine 3.6 H (0.8-1.5) mg/dL Glucose 201 H (75-100) mg/dL POC Glucose 218 H (70-105) Calcium 7.5 L (8.4-10.2) mg/dL Phosphorus 6.10 H D (2.5-4.5) mg/dL AST 62 H (5-40) units/L ALT 619 H (7-56) units/L Total Protein 4.1 L (6.3-8.2) g/dL Albumin 1.7 L (3.9-5) g/dL
[2017-09-17] MEDS: PULMICORT IH SCH (09:00)
[2017-09-17] MEDS: BROVANA NEBU IH SCH (09:00)
[2017-09-17] MEDS ORDERED: NACL 0.9% 500 ML 500 ML IV ONE (09:31)
[2017-09-17] MEDS ORDERED: LANTUS SUB-Q SCH (10:00)
--- NOTE | 2017-09-17 10:25 | Hem/Onc Progress Note ---
Assessment and Plan plts low- if bleeding or below 20k, will transfuse Subjective Date of service: 09/17/17 Interval history: pt without change Objective - Exam Narrative Exam: trach abd bandadged - Constitutional Vitals: Last Vital Signs Temp 98.6 F 09/17/17 08:00 Pulse 84 09/17/17 09:51 Resp 16 09/17/17 09:51 BP 128/65 09/17/17 09:51 Pulse Ox 100 09/17/17 09:51 - Labs Lab Results: Laboratory Results - last 24 hr 09/16/17 09/16/17 09/16/17 06:15 12:10 13:07 WBC RBC Hgb Hct MCV MCH MCHC RDW Plt Count Add Manual Diff Complete Total Counted 100 Seg Neutrophils % Seg Neuts % (Manual) 93.0 H Band Neutrophils % 1.0 Lymphocytes % (Manual) 3.0 L Reactive Lymphs % (Man) 0 Monocytes % (Manual) 3.0 Eosinophils % (Manual) 0 Basophils % (Manual) 0 Metamyelocytes % 0 Myelocytes % 0 Promyelocytes % 0 Blast Cells % 0 Nucleated RBC % Not Reportable Seg Neutrophils # Man 8.5 H Band Neutrophils # 0.1 Lymphocytes # (Manual) 0.3 L Abs React Lymphs (Man) 0.0 Monocytes # (Manual) 0.3 Eosinophils # (Manual) 0.0 Basophils # (Manual) 0.0 Metamyelocytes # 0.0 Myelocytes # 0.0 Promyelocytes # 0.0 Blast Cells # 0.0 WBC Morphology Not Reportable Hypersegmented Neuts Not Reportable Hyposegmented Neuts Not Reportable Hypogranular Neuts Not Reportable Smudge Cells Not Reportable Toxic Granulation Not Reportable Toxic Vacuolation Not Reportable Dohle Bodies Not Reportable Pelger-Huet Anomaly Not Reportable Tito Rods Not Reportable Platelet Estimate Appears decreased Clumped Platelets Not Reportable Plt Clumps, EDTA Not Reportable Large Platelets Rare Giant Platelets Not Reportable Platelet Satelliting Not Reportable Plt Morphology Comment Not Reportable RBC Morphology Not Reportable Dimorphic RBCs Not Reportable Polychromasia Few Hypochromasia Not Reportable Poikilocytosis 1+ Anisocytosis 1+ Microcytosis Not Reportable Macrocytosis Not Reportable Spherocytes Not Reportable Pappenheimer Bodies Not Reportable Sickle Cells Not Reportable Target Cells Not Reportable Tear Drop Cells Not Reportable Ovalocytes 1+ Helmet Cells Not Reportable [place] Bodies Not Reportable [place] Rings Not Reportable Lisa Cells 1+ Bite Cells Not Reportable Crenated Cell Not Reportable Elliptocytes Few Acanthocytes (Spur) 1+ Rouleaux Not Reportable Hemoglobin C Crystals Not Reportable Schistocytes Not Reportable Malaria parasites Not Reportable Brayan Bodies Not Reportable Hem Pathologist Commnt No POC ABG pH 7.175 L POC ABG pCO2 39.1 POC ABG pO2 71 L POC ABG HCO3 14.4 POC ABG Total CO2 16 POC ABG O2 Sat 89 POC ABG Base Excess -14 FiO2 40 Sodium Potassium Chloride Carbon Dioxide Anion Gap BUN Creatinine Estimated GFR BUN/Creatinine Ratio Glucose POC Glucose 277 H Calcium Phosphorus Magnesium Total Bilirubin AST ALT Alkaline Phosphatase Total Protein Albumin Albumin/Globulin Ratio 09/16/17 09/16/17 09/17/17 17:33 23:42 05:30 WBC 7.5 RBC 2.39 L Hgb 7.4 L Hct 23.0 L MCV 96 H MCH 31 MCHC 32 RDW 19.6 H Plt Count 24 L Add Manual Diff Complete Total Counted 100 Seg Neutrophils % Street Light Rep[employer] Seg Neuts % (Manual) 76.0 H Band Neutrophils % 18.0 Lymphocytes % (Manual) 5.0 L Reactive Lymphs % (Man) 0 Monocytes % (Manual) 1.0 Eosinophils % (Manual) 0 Basophils % (Manual) 0 Metamyelocytes % 0 Myelocytes % 0 Promyelocytes % 0 Blast Cells % 0 Nucleated RBC % Not Reportable Seg Neutrophils # Man 5.7 Band Neutrophils # 1.4 Lymphocytes # (Manual) 0.4 L Abs React Lymphs (Man) 0.0 Monocytes # (Manual) 0.1 Eosinophils # (Manual) 0.0 Basophils # (Manual) 0.0 Metamyelocytes # 0.0 Myelocytes # 0.0 Promyelocytes # 0.0 Blast Cells # 0.0 WBC Morphology Not Reportable Hypersegmented Neuts Not Reportable Hyposegmented Neuts Not Reportable Hypogranular Neuts Not Reportable Smudge Cells Not Reportable Toxic Granulation Not Reportable Toxic Vacuolation Not Reportable Dohle Bodies Not Reportable Pelger-Huet Anomaly Not Reportable Tito Rods Not Reportable Platelet Estimate Appears decreased Clumped Platelets Not Reportable Plt Clumps, EDTA Not Reportable Large Platelets Not Reportable Giant Platelets Not Reportable Platelet Satelliting Not Reportable Plt Morphology Comment Not Reportable RBC Morphology Not Reportable Dimorphic RBCs Not Reportable Polychromasia Few Hypochromasia 1+ Poikilocytosis Not Reportable Anisocytosis 1+ Microcytosis Not Reportable Macrocytosis Not Reportable Spherocytes Not Reportable Pappenheimer Bodies Not Reportable Sickle Cells Not Reportable Target Cells Not Reportable Tear Drop Cells Not Reportable Ovalocytes 1+ Helmet Cells Not Reportable [place] Bodies Not Reportable [place] Rings Not Reportable Lisa Cells 1+ Bite Cells Not Reportable Crenated Cell Not Reportable Elliptocytes Few Acanthocytes (Spur) Few Rouleaux Not Reportable Hemoglobin C Crystals Not Reportable Schistocytes Not Reportable Malaria parasites Not Reportable Brayan Bodies Not Reportable Hem Pathologist Commnt No POC ABG pH POC ABG pCO2 POC ABG pO2 POC ABG HCO3 POC ABG Total CO2 POC ABG O2 Sat POC ABG Base Excess FiO2 Sodium Potassium Chloride Carbon Dioxide Anion Gap BUN Creatinine Estimated GFR BUN/Creatinine Ratio Glucose POC Glucose 289 H 262 H Calcium Phosphorus Magnesium Total Bilirubin AST ALT Alkaline Phosphatase Total Protein Albumin Albumin/Globulin Ratio 09/17/17 09/17/17 05:30 05:39 WBC RBC Hgb Hct MCV MCH MCHC RDW Plt Count Add Manual Diff Total Counted Seg Neutrophils % Seg Neuts % (Manual) Band Neutrophils % Lymphocytes % (Manual) Reactive Lymphs % (Man) Monocytes % (Manual) Eosinophils % (Manual) Basophils % (Manual) Metamyelocytes % Myelocytes % Promyelocytes % Blast Cells % Nucleated RBC % Seg Neutrophils # Man Band Neutrophils # Lymphocytes # (Manual) Abs React Lymphs (Man) Monocytes # (Manual) Eosinophils # (Manual) Basophils # (Manual) Metamyelocytes # Myelocytes # Promyelocytes # Blast Cells # WBC Morphology Hypersegmented Neuts Hyposegmented Neuts Hypogranular Neuts Smudge Cells Toxic Granulation Toxic Vacuolation Dohle Bodies Pelger-Huet Anomaly Tito Rods Platelet Estimate Clumped Platelets Plt Clumps, EDTA Large Platelets Giant Platelets Platelet Satelliting Plt Morphology Comment RBC Morphology Dimorphic RBCs Polychromasia Hypochromasia Poikilocytosis Anisocytosis Microcytosis Macrocytosis Spherocytes Pappenheimer Bodies Sickle Cells Target Cells Tear Drop Cells Ovalocytes Helmet Cells [place] Bodies [place] Rings Lisa Cells Bite Cells Crenated Cell Elliptocytes Acanthocytes (Spur) Rouleaux Hemoglobin C Crystals Schistocytes Malaria parasites Brayan Bodies Hem Pathologist Commnt POC ABG pH POC ABG pCO2 POC ABG pO2 POC ABG HCO3 POC ABG Total CO2 POC ABG O2 Sat POC ABG Base Excess FiO2 Sodium 138 Potassium 3.8 D Chloride 103.5 Carbon Dioxide 22 D Anion Gap 16 BUN 93 H Creatinine 3.6 H Estimated GFR 17 BUN/Creatinine Ratio 26 Glucose 201 H POC Glucose 218 H Calcium 7.5 L Phosphorus 6.10 H D Magnesium 1.90 Total Bilirubin 1.20 AST 62 H ALT 619 H Alkaline Phosphatase 112 Total Protein 4.1 L Albumin 1.7 L Albumin/Globulin Ratio 0.7
--- NOTE | 2017-09-17 11:15 | Progress Note ---
Assessment and Plan Continue IV amiodarone and plan for conversion to PO amio once pt is tolerating enteral intake. Consider addition of IV lopressor if necessary for BP optimization. Volume optimization per nephrology. No systemic anticoagulation at this time in regards to atrial fibrillation in setting of anemia, thrombocytopenia and recent bleeding. The patient has been seen in conjunction with Dr. Pitt who agrees with the assessment and plan of care. - Patient Problems (1) Acute respiratory failure with hypoxia Current Visit: Yes Status: Acute (2) Atrial fibrillation with RVR Current Visit: Yes Status: Acute (3) Acute combined systolic and diastolic heart failure Current Visit: Yes Status: Acute (4) Cardiomyopathy Current Visit: Yes Status: Chronic (5) Severe sepsis with septic shock Current Visit: Yes Status: Acute (6) Acute renal failure Current Visit: Yes Status: Acute Qualifiers: Acute renal failure type: with acute tubular necrosis Qualified Code(s): N17.0 - Acute kidney failure with tubular necrosis (7) Peritonitis Current Visit: Yes Status: Acute (8) Pneumoperitoneum Current Visit: Yes Status: Acute (9) PAD (peripheral artery disease) Current Visit: Yes Status: Chronic (10) Anemia Current Visit: Yes Status: Acute Qualifiers: Chronic kidney disease stage: stage 2 (mild) (11) Thrombocytopenia Current Visit: Yes Status: Acute Subjective Date of service: 09/17/17 Principal diagnosis: Septic shock. peritonitis, dislodged PEG tube, WILLIAM Interval history: pt resting comfortably in bed, trached. remains in AFib with CVR currently. amio gtt infusing. s/p HD yesterday and for HD again today per nephrology. Objective Last Vital Signs Temp 98.6 F 09/17/17 08:00 Pulse 82 09/17/17 10:30 Resp 19 09/17/17 10:30 BP 122/55 09/17/17 10:30 Pulse Ox 100 09/17/17 10:30 - Physical Examination General: No Apparent Distress HEENT: Positive: EOMI, Normocephaly, Mucus Membranes Moist Neck: Positive: neck supple, trachea midline Cardiac: Positive: irregularly irregular, S1/S2 Lungs: Positive: Decreased Breath Sounds Neuro: Positive: Grossly Intact Abdomen: Positive: Soft, Active Bowel Sounds Skin: Positive: Clear. Negative: Rash Musculoskeletal: Normal Range of Motion Extremities: Present: +1 Edema - Labs and Meds Cardiac Enzymes 09/17/17 Range/Units 05:30 AST 62 H (5-40) units/L CBC 09/17/17 Range/Units 05:30 WBC 7.5 (4.5-11.0) K/mm3 RBC 2.39 L (3.65-5.03) M/mm3 Hgb 7.4 L (11.8-15.2) gm/dl Hct 23.0 L (35.5-45.6) % Plt Count 24 L (140-440) K/mm3 Comprehensive Metabolic Panel 09/17/17 Range/Units 05:30 Sodium 138 (137-145) mmol/L Potassium 3.8 D (3.6-5.0) mmol/L Chloride 103.5 (98-107) mmol/L Carbon Dioxide 22 D (22-30) mmol/L BUN 93 H (9-20) mg/dL Creatinine 3.6 H (0.8-1.5) mg/dL Glucose 201 H (75-100) mg/dL Calcium 7.5 L (8.4-10.2) mg/dL AST 62 H (5-40) units/L ALT 619 H (7-56) units/L Alkaline Phosphatase 112 (35-129) units/L Total Protein 4.1 L (6.3-8.2) g/dL Albumin 1.7 L (3.9-5) g/dL - Imaging and Cardiology Echo: report reviewed (07/2017: EF 30-35%, impaired relaxation) - Telemetry EKG Rhythm: Atrial Fibrillation - Allied health notes Allied health notes reviewed: nursing
[2017-09-17] MEDS ORDERED: LANTUS SUB-Q ONE (12:00)
--- NOTE | 2017-09-17 12:18 | Progress Note ---
Assessment and Plan [id number] hypoxemic respiratory failure secondary likely to #2. Acute peritonitis, status post dislodged PEG tube. (procedure s/p Exploratory laparotomy, repair of gastrotomy, removal of PEG tube , peritoneal lavage, temporary closure of abdomen with Abthera Vac on 09/12/17 and Exploratory laparotomy, peritoneal lavage, cholecystectomy, placement of gastrojejunal feeding tube, closure of abdomen) Severe sepsis. Tracheostomy Oropharyngeal dysphagia. Acute on chronic kidney injury Anarsarca Obesity. Tobacco use disorder. Anemia that is microcytic and multifactorial. Metabolic acidosis. Hyperkalemia. Adult failure to thrive. -s/p abdominal wound closure - continue supplemental oxygen and wean to keep sats > 90% - continue daily SAT's and SBT's post operatively - continue enteral nutrition - continue to address VAP bundle daily - continue antibiotics and de-escalate per ID recs - remains off vasopressors - continue SCD's - continue agitation and analgesia management while avoiding benzodiazepines - Avoid nephrotoxic agents - supportive HD at this point - Prognosis remains guarded overall although much improved, with risk of decompensation from a hemodynamic standpoint and even . The high probability of a clinically significant, sudden or life threatening deterioration of the [cardiac, Renal, Respiratory, neurological] system(s) required my full and direct attention, intervention and personal management. The aggregate critical care time was [35] minutes without overlap. Time includes spent on; [x] Data Review and interpretation [x] Patient assessment and monitoring of vital signs [x] Documentation [x] Medication orders and management Subjective Date of service: 09/17/17 Principal diagnosis: Septic shock. peritonitis, dislodged PEG tube, WILLIAM Interval history: Patient is seen today for: Acute Hypoxemic Respiratory Failure; Hemorrhagic Shock; WILLIAM on Dilaysis;PVD Seen and examined at bedside; 24 hour events reviewed; nursing and respiratory care staff consulted; resting peacefully in bed; remains on MVS; no emesis or overt aspiration; resting peacefully; denies acute chest pains; mild cognitive dysfunction / dementia persis Currently getting HD through the left femoral HD catheter Thrombocytopenia, HIT antibodies pending, was resent. Remains off vasopressor support Objective - Exam Narrative Exam: Constitutional: alert, appears uncomfortable, other (elderly looking slightly obese CM; normocephalic) s/p tracheostomy to MVS. No dyssynchrony Eyes: non-icteric ENT: oropharynx moist, other (s/p tracheostomy) to mechanical ventilatory support Neck: supple, no lymphadenopathy, other (no thyromegaly) Effort: mildly labored Ascultation: Bilateral: diminished breath sounds, rhonchi Percussion: Bilateral: dull (bases) Cardiovascular: regular rate and rhythm, other (no rubs or murmurs) Gastrointestinal: hypoactive bowel sounds, soft, non-tender, non-distended, other (midline wound vac) Integumentary: normal Extremities: no cyanosis, pink and warm, pulses normal, no ischemia or petechiae , bilateral upper extremity edema Right groin wound, left groin HD catheter Neurologic: non-focal exam (grossly), pupils equal and round, CN II-XII normal, motor strength normal and (weak), other (mild cognitive dysfunction / dementia element) Psychiatric: anxious Vital Signs - 12hr 09/17/17 09/17/17 09/17/17 00:30 00:46 01:00 Temperature Pulse Rate 94 H 107 H 97 H Pulse Rate [ Anterior Bilateral Throughout] Pulse Rate [ Bilateral Throughout] Respiratory 20 20 19 Rate Respiratory Rate [Anterior Bilateral Throughout] Respiratory Rate [Bilateral Throughout] Blood Pressure 125/62 142/71 133/67 O2 Sat by Pulse 98 99 98 Oximetry O2 Sat by Pulse Oximetry [ Anterior Bilateral Throughout] O2 Sat by Pulse Oximetry [ Assessment] O2 Sat by Pulse Oximetry [ Bilateral Throughout] 09/17/17 09/17/17 09/17/17 01:16 01:30 01:46 Temperature Pulse Rate 100 H 100 H 94 H Pulse Rate [ Anterior Bilateral Throughout] Pulse Rate [ Bilateral Throughout] Respiratory 17 15 21 Rate Respiratory Rate [Anterior Bilateral Throughout] Respiratory Rate [Bilateral Throughout] Blood Pressure 145/67 132/62 134/70 O2 Sat by Pulse 98 98 98 Oximetry O2 Sat by Pulse Oximetry [ Anterior Bilateral Throughout] O2 Sat by Pulse Oximetry [ Assessment] O2 Sat by Pulse Oximetry [ Bilateral Throughout] 09/17/17 09/17/17 09/17/17 02:00 02:16 02:30 Temperature Pulse Rate 103 H 96 H 105 H Pulse Rate [ Anterior Bilateral Throughout] Pulse Rate [ Bilateral Throughout] Respiratory 19 18 15 Rate Respiratory Rate [Anterior Bilateral Throughout] Respiratory Rate [Bilateral Throughout] Blood Pressure 124/63 129/57 122/66 O2 Sat by Pulse 98 98 98 Oximetry O2 Sat by Pulse Oximetry [ Anterior Bilateral Throughout] O2 Sat by Pulse Oximetry [ Assessment] O2 Sat by Pulse Oximetry [ Bilateral Throughout] 09/17/17 09/17/17 09/17/17 02:46 03:00 03:16 Temperature Pulse Rate 98 H 97 H 83 Pulse Rate [ Anterior Bilateral Throughout] Pulse Rate [ Bilateral Throughout] Respiratory 14 15 15 Rate Respiratory Rate [Anterior Bilateral Throughout] Respiratory Rate [Bilateral Throughout] Blood Pressure 120/64 129/64 123/57 O2 Sat by Pulse 99 98 99 Oximetry O2 Sat by Pulse Oximetry [ Anterior Bilateral Throughout] O2 Sat by Pulse 99 Oximetry [ Assessment] O2 Sat by Pulse Oximetry [ Bilateral Throughout] 09/17/17 09/17/17 09/17/17 03:30 03:46 04:00 Temperature 99.1 F Pulse Rate 93 H 94 H 99 H Pulse Rate [ Anterior Bilateral Throughout] Pulse Rate [ Bilateral Throughout] Respiratory 14 15 18 Rate Respiratory Rate [Anterior Bilateral Throughout] Respiratory Rate [Bilateral Throughout] Blood Pressure 123/63 117/55 117/61 O2 Sat by Pulse 98 99 98 Oximetry O2 Sat by Pulse Oximetry [ Anterior Bilateral Throughout] O2 Sat by Pulse Oximetry [ Assessment] O2 Sat by Pulse Oximetry [ Bilateral Throughout] 09/17/17 09/17/17 09/17/17 04:16 04:30 04:46 Temperature Pulse Rate 91 H 102 H 91 H Pulse Rate [ Anterior Bilateral Throughout] Pulse Rate [ Bilateral Throughout] Respiratory 14 13 15 Rate Respiratory Rate [Anterior Bilateral Throughout] Respiratory Rate [Bilateral Throughout] Blood Pressure 130/59 124/56 121/58 O2 Sat by Pulse 99 98 99 Oximetry O2 Sat by Pulse Oximetry [ Anterior Bilateral Throughout] O2 Sat by Pulse Oximetry [ Assessment] O2 Sat by Pulse Oximetry [ Bilateral Throughout] 09/17/17 09/17/17 09/17/17 04:48 04:54 05:00 Temperature Pulse Rate 92 H 107 H Pulse Rate [ 84 Anterior Bilateral Throughout] Pulse Rate [ Bilateral Throughout] Respiratory 15 Rate Respiratory 20 Rate [Anterior Bilateral Throughout] Respiratory Rate [Bilateral Throughout] Blood Pressure 121/48 123/62 O2 Sat by Pulse 99 99 Oximetry O2 Sat by Pulse Oximetry [ Anterior Bilateral Throughout] O2 Sat by Pulse Oximetry [ Assessment] O2 Sat by Pulse Oximetry [ Bilateral Throughout] 09/17/17 09/17/1718 05:16 05:30 05:46 Temperature Pulse Rate 97 H 101 H 88 Pulse Rate [ Anterior Bilateral Throughout] Pulse Rate [ Bilateral Throughout] Respiratory 17 20 18 Rate Respiratory Rate [Anterior Bilateral Throughout] Respiratory Rate [Bilateral Throughout] Blood Pressure 111/61 116/63 123/59 O2 Sat by Pulse 100 98 98 Oximetry O2 Sat by Pulse Oximetry [ Anterior Bilateral Throughout] O2 Sat by Pulse Oximetry [ Assessment] O2 Sat by Pulse Oximetry [ Bilateral Throughout] 09/17/17 09/17/17 09/17/17 06:00 06:16 06:30 Temperature Pulse Rate 97 H 88 93 H Pulse Rate [ Anterior Bilateral Throughout] Pulse Rate [ Bilateral Throughout] Respiratory 22 17 16 Rate Respiratory Rate [Anterior Bilateral Throughout] Respiratory Rate [Bilateral Throughout] Blood Pressure 116/62 114/57 123/60 O2 Sat by Pulse 97 100 98 Oximetry O2 Sat by Pulse Oximetry [ Anterior Bilateral Throughout] O2 Sat by Pulse Oximetry [ Assessment] O2 Sat by Pulse Oximetry [ Bilateral Throughout] 09/17/17 09/17/17 09/17/17 06:46 07:00 07:16 Temperature 98.6 F Pulse Rate 90 94 H 93 H Pulse Rate [ Anterior Bilateral Throughout] Pulse Rate [ Bilateral Throughout] Respiratory 18 15 18 Rate Respiratory Rate [Anterior Bilateral Throughout] Respiratory Rate [Bilateral Throughout] Blood Pressure 116/56 120/51 110/59 O2 Sat by Pulse 100 98 100 Oximetry O2 Sat by Pulse Oximetry [ Anterior Bilateral Throughout] O2 Sat by Pulse Oximetry [ Assessment] O2 Sat by Pulse Oximetry [ Bilateral Throughout] 09/17/17 09/17/17 09/17/17 07:30 07:46 08:00 Temperature 98.6 F Pulse Rate 91 H 98 H 96 H Pulse Rate [ Anterior Bilateral Throughout] Pulse Rate [ Bilateral Throughout] Respiratory 13 14 20 Rate Respiratory Rate [Anterior Bilateral Throughout] Respiratory Rate [Bilateral Throughout] Blood Pressure 122/55 121/64 120/59 O2 Sat by Pulse 100 98 99 Oximetry O2 Sat by Pulse Oximetry [ Anterior Bilateral Throughout] O2 Sat by Pulse Oximetry [ Assessment] O2 Sat by Pulse Oximetry [ Bilateral Throughout] 09/17/17 09/17/17 09/17/17 08:16 08:30 08:46 Temperature Pulse Rate 85 82 84 Pulse Rate [ Anterior Bilateral Throughout] Pulse Rate [ Bilateral Throughout] Respiratory 14 18 15 Rate Respiratory Rate [Anterior Bilateral Throughout] Respiratory Rate [Bilateral Throughout] Blood Pressure 117/63 115/61 118/53 O2 Sat by Pulse 100 98 100 Oximetry O2 Sat by Pulse Oximetry [ Anterior Bilateral Throughout] O2 Sat by Pulse Oximetry [ Assessment] O2 Sat by Pulse Oximetry [ Bilateral Throughout] 09/17/17 09/17/17 09/17/17 08:55 09:00 09:05 Temperature Pulse Rate 86 96 H Pulse Rate [ 86 89 Anterior Bilateral Throughout] Pulse Rate [ 91 H Bilateral Throughout] Respiratory 16 Rate Respiratory 21 14 Rate [Anterior Bilateral Throughout] Respiratory 15 Rate [Bilateral Throughout] Blood Pressure 118/58 123/56 O2 Sat by Pulse 100 98 Oximetry O2 Sat by Pulse Oximetry [ Anterior Bilateral Throughout] O2 Sat by Pulse 100 Oximetry [ Assessment] O2 Sat by Pulse Oximetry [ Bilateral Throughout] 09/17/17 09/17/17 09/17/17 09:16 09:30 09:46 Temperature Pulse Rate 102 H 81 92 H Pulse Rate [ Anterior Bilateral Throughout] Pulse Rate [ Bilateral Throughout] Respiratory 14 15 12 Rate Respiratory Rate [Anterior Bilateral Throughout] Respiratory Rate [Bilateral Throughout] Blood Pressure 123/56 133/59 128/65 O2 Sat by Pulse 98 98 100 Oximetry O2 Sat by Pulse Oximetry [ Anterior Bilateral Throughout] O2 Sat by Pulse Oximetry [ Assessment] O2 Sat by Pulse Oximetry [ Bilateral Throughout] 09/17/17 09/17/17 09/17/17 09:51 10:00 10:16 Temperature Pulse Rate 84 84 83 Pulse Rate [ Anterior Bilateral Throughout] Pulse Rate [ Bilateral Throughout] Respiratory 16 15 16 Rate Respiratory Rate [Anterior Bilateral Throughout] Respiratory Rate [Bilateral Throughout] Blood Pressure 128/65 124/65 124/65 O2 Sat by Pulse 100 100 100 Oximetry O2 Sat by Pulse Oximetry [ Anterior Bilateral Throughout] O2 Sat by Pulse Oximetry [ Assessment] O2 Sat by Pulse Oximetry [ Bilateral Throughout] 09/17/17 09/17/17 09/17/17 10:25 10:30 10:45 Temperature 98.6 F Pulse Rate 83 82 83 Pulse Rate [ Anterior Bilateral Throughout] Pulse Rate [ Bilateral Throughout] Respiratory 17 19 Rate Respiratory Rate [Anterior Bilateral Throughout] Respiratory Rate [Bilateral Throughout] Blood Pressure 122/55 122/55 122/55 O2 Sat by Pulse 100 Oximetry O2 Sat by Pulse 100 Oximetry [ Anterior Bilateral Throughout] O2 Sat by Pulse Oximetry [ Assessment] O2 Sat by Pulse 100 Oximetry [ Bilateral Throughout] 09/17/17 09/17/17 09/17/17 11:00 11:15 11:30 Temperature Pulse Rate 91 H 92 H 94 H Pulse Rate [ Anterior Bilateral Throughout] Pulse Rate [ Bilateral Throughout] Respiratory Rate Respiratory Rate [Anterior Bilateral Throughout] Respiratory Rate [Bilateral Throughout] Blood Pressure 120/57 115/56 106/49 O2 Sat by Pulse Oximetry O2 Sat by Pulse Oximetry [ Anterior Bilateral Throughout] O2 Sat by Pulse Oximetry [ Assessment] O2 Sat by Pulse Oximetry [ Bilateral Throughout] 09/17/17 09/17/17 11:45 11:51 Temperature Pulse Rate 96 H 91 H Pulse Rate [ Anterior Bilateral Throughout] Pulse Rate [ Bilateral Throughout] Respiratory Rate Respiratory Rate [Anterior Bilateral Throughout] Respiratory Rate [Bilateral Throughout] Blood Pressure 123/47 106/52 O2 Sat by Pulse Oximetry O2 Sat by Pulse Oximetry [ Anterior Bilateral Throughout] O2 Sat by Pulse Oximetry [ Assessment] O2 Sat by Pulse Oximetry [ Bilateral Throughout] Constitutional: alert, appears uncomfortable, other (elderly looking slightly obese CM; normocephalic) Eyes: non-icteric ENT: oropharynx moist, other (s/p tracheostomy) Neck: supple, no lymphadenopathy, other (no thyromegaly) Effort: mildly labored Ascultation: Bilateral: diminished breath sounds, rhonchi Percussion: Bilateral: dull (bases) Cardiovascular: regular rate and rhythm, other (no rubs or murmurs) Gastrointestinal: hypoactive bowel sounds, soft, non-tender, non-distended, other (midline wound vac) Integumentary: normal Extremities: no cyanosis, pink and warm, pulses normal, no ischemia or petechiae , edema Neurologic: non-focal exam (grossly), pupils equal and round, CN II-XII normal, motor strength normal and (weak), other (mild cognitive dysfunction / dementia element) Psychiatric: anxious CBC and BMP: 09/17/17 05:30 09/17/17 05:30 ABG, PT/INR, D-dimer: ABG POC ABG pH 7.175 (7.35-7.45) L 09/16/17 13:07 POC ABG pCO2 39.1 (35-45) 09/16/17 13:07 POC ABG pO2 71 (80-105) L 09/16/17 13:07 POC ABG HCO3 14.4 09/16/17 13:07 POC ABG Total CO2 16 09/16/17 13:07 POC ABG O2 Sat 89 09/16/17 13:07 PT/INR, D-dimer PT 16.5 Sec. (12.2-14.9) H 09/15/17 17:52 INR 1.26 (0.87-1.13) H 09/15/17 17:52 Abnormal lab findings: Abnormal Labs 09/12/17 09/13/17 09/13/17 22:56 03:08 05:20 WBC RBC 3.60 L Hgb 11.5 L Hct 34.4 L MCV 95 H MCHC RDW 19.8 H Plt Count 83 L Seg Neuts % (Manual) Lymphocytes % (Manual) 11.0 L Seg Neutrophils # Man Lymphocytes # (Manual) 0.7 L PT INR APTT POC ABG pH 7.280 L POC ABG pCO2 46.4 H POC ABG pO2 110 H Sodium Potassium Chloride Carbon Dioxide BUN Creatinine Glucose POC Glucose 135 H Lactic Acid Calcium Phosphorus Total Bilirubin AST ALT C-Reactive Protein Total Protein Albumin Prealbumin Urine WBC (Auto) Urine Creatinine Urine Total Protein 09/13/17 09/13/17 09/13/17 05:20 14:47 14:47 WBC RBC Hgb Hct MCV MCHC RDW Plt Count Seg Neuts % (Manual) Lymphocytes % (Manual) Seg Neutrophils # Man Lymphocytes # (Manual) PT INR APTT POC ABG pH POC ABG pCO2 POC ABG pO2 Sodium Potassium 5.2 H Chloride 109.6 H Carbon Dioxide 20 L BUN 54 H Creatinine 2.3 H Glucose POC Glucose Lactic Acid Calcium 7.8 L Phosphorus 6.20 H Total Bilirubin AST ALT C-Reactive Protein Total Protein Albumin Prealbumin 0.050 L Urine WBC (Auto) 30.0 H Urine Creatinine 180.6 H Urine Total Protein 289 H 09/13/17 09/13/17 09/13/17 14:54 14:54 17:04 WBC RBC Hgb Hct MCV MCHC RDW Plt Count Seg Neuts % (Manual) Lymphocytes % (Manual) Seg Neutrophils # Man Lymphocytes # (Manual) PT INR APTT POC ABG pH POC ABG pCO2 POC ABG pO2 Sodium Potassium Chloride Carbon Dioxide BUN Creatinine Glucose POC Glucose 114 H Lactic Acid 2.20 H* Calcium Phosphorus Total Bilirubin AST ALT C-Reactive Protein 33.10 H Total Protein Albumin Prealbumin Urine WBC (Auto) Urine Creatinine Urine Total Protein 09/13/17 09/13/17 09/14/17 19:40 23:49 04:07 WBC RBC Hgb Hct MCV MCHC RDW Plt Count Seg Neuts % (Manual) Lymphocytes % (Manual) Seg Neutrophils # Man Lymphocytes # (Manual) PT INR APTT POC ABG pH 7.332 L POC ABG pCO2 34.3 L POC ABG pO2 76 L Sodium Potassium Chloride Carbon Dioxide BUN Creatinine Glucose POC Glucose 115 H Lactic Acid 2.20 H* Calcium Phosphorus Total Bilirubin AST ALT C-Reactive Protein Total Protein Albumin Prealbumin Urine WBC (Auto) Urine Creatinine Urine Total Protein 09/14/17 09/14/17 09/14/17 05:15 05:15 05:35 WBC RBC Hgb Hct MCV MCHC RDW Plt Count Seg Neuts % (Manual) Lymphocytes % (Manual) Seg Neutrophils # Man Lymphocytes # (Manual) PT INR APTT POC ABG pH POC ABG pCO2 POC ABG pO2 Sodium Potassium Chloride 107.5 H Carbon Dioxide 18 L BUN 77 H Creatinine 3.0 H Glucose 185 H POC Glucose 196 H Lactic Acid Calcium 7.3 L Phosphorus 7.80 H D Total Bilirubin 2.50 H AST 991 H ALT 1757 H C-Reactive Protein Total Protein 4.1 L Albumin 1.8 L Prealbumin Urine WBC (Auto) Urine Creatinine Urine Total Protein 09/14/17 09/14/17 09/14/17 12:17 18:08 23:55 WBC RBC Hgb Hct MCV MCHC RDW Plt Count Seg Neuts % (Manual) Lymphocytes % (Manual) Seg Neutrophils # Man Lymphocytes # (Manual) PT INR APTT POC ABG pH POC ABG pCO2 POC ABG pO2 Sodium Potassium Chloride Carbon Dioxide BUN Creatinine Glucose POC Glucose 212 H 242 H 231 H Lactic Acid Calcium Phosphorus Total Bilirubin AST ALT C-Reactive Protein Total Protein Albumin Prealbumin Urine WBC (Auto) Urine Creatinine Urine Total Protein 09/15/17 09/15/17 09/15/17 04:12 05:50 06:00 WBC RBC 2.62 L Hgb 8.3 L D Hct 25.8 L D MCV 98 H MCHC RDW 20.1 H Plt Count 50 L Seg Neuts % (Manual) 82.0 H Lymphocytes % (Manual) 6.0 L Seg Neutrophils # Man Lymphocytes # (Manual) 0.5 L PT INR APTT POC ABG pH 7.252 L POC ABG pCO2 POC ABG pO2 Sodium Potassium Chloride Carbon Dioxide BUN Creatinine Glucose POC Glucose 240 H Lactic Acid Calcium Phosphorus Total Bilirubin AST ALT C-Reactive Protein Total Protein Albumin Prealbumin Urine WBC (Auto) Urine Creatinine Urine Total Protein 09/15/17 09/15/17 09/15/17 06:00 11:17 15:11 WBC RBC Hgb Hct MCV MCHC RDW Plt Count Seg Neuts % (Manual) Lymphocytes % (Manual) Seg Neutrophils # Man Lymphocytes # (Manual) PT INR APTT POC ABG pH POC ABG pCO2 POC ABG pO2 Sodium 136 L Potassium Chloride Carbon Dioxide 17 L BUN 98 H Creatinine 3.9 H Glucose 207 H POC Glucose 215 H 238 H Lactic Acid Calcium 7.4 L Phosphorus 7.80 H Total Bilirubin 1.50 H AST 357 H ALT 1308 H C-Reactive Protein Total Protein 4.2 L Albumin 1.7 L Prealbumin Urine WBC (Auto) Urine Creatinine Urine Total Protein 09/15/17 09/15/17 09/15/17 17:52 17:52 17:52 WBC 11.4 H RBC 2.91 L Hgb 8.8 L Hct 29.0 L MCV 100 H MCHC 31 L RDW 20.6 H Plt Count 46 L Seg Neuts % (Manual) Lymphocytes % (Manual) Seg Neutrophils # Man Lymphocytes # (Manual) PT 16.5 H INR 1.26 H APTT 38.7 H POC ABG pH POC ABG pCO2 POC ABG pO2 Sodium 136 L Potassium Chloride Carbon Dioxide 16 L BUN 100 H Creatinine 3.8 H Glucose 220 H POC Glucose Lactic Acid Calcium 7.3 L Phosphorus Total Bilirubin 1.50 H AST 263 H ALT 1236 H C-Reactive Protein Total Protein 4.3 L Albumin 2.0 L Prealbumin Urine WBC (Auto) Urine Creatinine Urine Total Protein 09/15/17 09/15/17 09/16/17 18:12 23:34 05:22 WBC RBC Hgb Hct MCV MCHC RDW Plt Count Seg Neuts % (Manual) Lymphocytes % (Manual) Seg Neutrophils # Man Lymphocytes # (Manual) PT INR APTT POC ABG pH POC ABG pCO2 POC ABG pO2 Sodium Potassium Chloride Carbon Dioxide BUN Creatinine Glucose POC Glucose 276 H 275 H 306 H Lactic Acid Calcium Phosphorus Total Bilirubin AST ALT C-Reactive Protein Total Protein Albumin Prealbumin Urine WBC (Auto) Urine Creatinine Urine Total Protein 09/16/17 09/16/17 09/16/17 06:15 06:15 12:10 WBC RBC 2.75 L Hgb 8.8 L Hct 27.1 L MCV 99 H MCHC RDW 20.2 H Plt Count 42 L Seg Neuts % (Manual) 93.0 H Lymphocytes % (Manual) 3.0 L Seg Neutrophils # Man 8.5 H Lymphocytes # (Manual) 0.3 L PT INR APTT POC ABG pH POC ABG pCO2 POC ABG pO2 Sodium 136 L Potassium Chloride Carbon Dioxide 15 L BUN 110 H Creatinine 4.1 H Glucose 265 H POC Glucose 277 H Lactic Acid Calcium 7.6 L Phosphorus 9.00 H Total Bilirubin 1.30 H AST 227 H ALT 966 H C-Reactive Protein Total Protein 4.3 L Albumin 1.8 L Prealbumin Urine WBC (Auto) Urine Creatinine Urine Total Protein 09/16/17 09/16/17 09/16/17 13:07 17:33 23:42 WBC RBC Hgb Hct MCV MCHC RDW Plt Count Seg Neuts % (Manual) Lymphocytes % (Manual) Seg Neutrophils # Man Lymphocytes # (Manual) PT INR APTT POC ABG pH 7.175 L POC ABG pCO2 POC ABG pO2 71 L Sodium Potassium Chloride Carbon Dioxide BUN Creatinine Glucose POC Glucose 289 H 262 H Lactic Acid Calcium Phosphorus Total Bilirubin AST ALT C-Reactive Protein Total Protein Albumin Prealbumin Urine WBC (Auto) Urine Creatinine Urine Total Protein 09/17/17 09/17/17 09/17/17 05:30 05:30 05:39 WBC RBC 2.39 L Hgb 7.4 L Hct 23.0 L MCV 96 H MCHC RDW 19.6 H Plt Count 24 L Seg Neuts % (Manual) 76.0 H Lymphocytes % (Manual) 5.0 L Seg Neutrophils # Man Lymphocytes # (Manual) 0.4 L PT INR APTT POC ABG pH POC ABG pCO2 POC ABG pO2 Sodium Potassium Chloride Carbon Dioxide BUN 93 H Creatinine 3.6 H Glucose 201 H POC Glucose 218 H Lactic Acid Calcium 7.5 L Phosphorus 6.10 H D Total Bilirubin AST 62 H ALT 619 H C-Reactive Protein Total Protein 4.1 L Albumin 1.7 L Prealbumin Urine WBC (Auto) Urine Creatinine Urine Total Protein 09/17/17 11:31 WBC RBC Hgb Hct MCV MCHC RDW Plt Count Seg Neuts % (Manual) Lymphocytes % (Manual) Seg Neutrophils # Man Lymphocytes # (Manual) PT INR APTT POC ABG pH POC ABG pCO2 POC ABG pO2 Sodium Potassium Chloride Carbon Dioxide BUN Creatinine Glucose POC Glucose 221 H Lactic Acid Calcium Phosphorus Total Bilirubin AST ALT C-Reactive Protein Total Protein Albumin Prealbumin Urine WBC (Auto) Urine Creatinine Urine Total Protein Chest x-ray: report reviewed Allied health notes reviewed: PT (Holding off on PT evaluation until after HD)
[2017-09-17] MEDS: MAXIPIME 2 GM in NACL 0.9% 20 ML IV SCH (15:57)
[2017-09-17] MEDS: PROTONIX IV SCH (15:57)
--- NOTE | 2017-09-17 18:08 | Progress Note ---
Assessment and Plan 66-year-old male s/p Exploratory laparotomy, repair of gastrotomy, removal of PEG tube, peritoneal lavage, temporary closure of abdomen with Abthera Vac on and Exploratory laparotomy, peritoneal lavage, cholecystectomy, placement of gastrojejunal feeding tube, closure of abdomen. POD 2 1. septic shock 2. dislodged PEG tube 3. intraabdominal infection 4. WILLIAM Plan: 1. neuro - prn fentanyl for pain 2. CV - afib in OR, cardiology on board. Off pressors. DVT ppx - SCDs. Plts are 50% decreased from yesterday - heme c/s appreciated. Receiving transfusion today during HD 3. Resp: weant vent per CCU team 4. GI: NPO, TPN. GJ tube - G port to OSD. Start TTF via J port today, do not increase. Nutrition on board 5. : barrientos for strict I/Os. HD per nephro. May DC barrientos when OK with nephro - d/w Dr. Chacon (urology) 6. Endo: accuchecks q6, ISS. 7. ID: c/w abx per ID recs 8. FEN: BMP in am. replace lytes as needed. c/w NPO. c/w TPN Thank you for this consultation, please call with questions or concerns. Subjective Date of service: 09/17/17 Narrative: Pt seen and examined. No complaints. Denies pain. Off vent and on supplemental O2 via trach. Off pressors. Receiving 2 Units PRBC today. Objective Vital Signs - 12hr 09/17/17 09/17/17 09/17/17 06:16 06:30 06:46 Temperature Pulse Rate 88 93 H 90 Pulse Rate [ Anterior Bilateral Throughout] Pulse Rate [ Bilateral Throughout] Respiratory 17 16 18 Rate Respiratory Rate [Anterior Bilateral Throughout] Respiratory Rate [Back] Respiratory Rate [Bilateral Throughout] Blood Pressure 114/57 123/60 116/56 O2 Sat by Pulse 100 98 100 Oximetry O2 Sat by Pulse Oximetry [ Anterior Bilateral Throughout] O2 Sat by Pulse Oximetry [ Assessment] O2 Sat by Pulse Oximetry [ Bilateral Throughout] 09/17/17 09/17/17 09/17/17 07:00 07:16 07:30 Temperature 98.6 F Pulse Rate 94 H 93 H 91 H Pulse Rate [ Anterior Bilateral Throughout] Pulse Rate [ Bilateral Throughout] Respiratory 15 18 13 Rate Respiratory Rate [Anterior Bilateral Throughout] Respiratory Rate [Back] Respiratory Rate [Bilateral Throughout] Blood Pressure 120/51 110/59 122/55 O2 Sat by Pulse 98 100 100 Oximetry O2 Sat by Pulse Oximetry [ Anterior Bilateral Throughout] O2 Sat by Pulse Oximetry [ Assessment] O2 Sat by Pulse Oximetry [ Bilateral Throughout] 09/17/17 09/17/17 09/17/17 07:46 08:00 08:16 Temperature 98.6 F Pulse Rate 98 H 96 H 85 Pulse Rate [ Anterior Bilateral Throughout] Pulse Rate [ Bilateral Throughout] Respiratory 14 20 14 Rate Respiratory Rate [Anterior Bilateral Throughout] Respiratory Rate [Back] Respiratory Rate [Bilateral Throughout] Blood Pressure 121/64 120/59 117/63 O2 Sat by Pulse 98 99 100 Oximetry O2 Sat by Pulse Oximetry [ Anterior Bilateral Throughout] O2 Sat by Pulse Oximetry [ Assessment] O2 Sat by Pulse Oximetry [ Bilateral Throughout] 09/17/17 09/17/17 09/17/17 08:30 08:46 08:55 Temperature Pulse Rate 82 84 Pulse Rate [ 86 Anterior Bilateral Throughout] Pulse Rate [ Bilateral Throughout] Respiratory 18 15 Rate Respiratory 21 Rate [Anterior Bilateral Throughout] Respiratory Rate [Back] Respiratory Rate [Bilateral Throughout] Blood Pressure 115/61 118/53 O2 Sat by Pulse 98 100 Oximetry O2 Sat by Pulse Oximetry [ Anterior Bilateral Throughout] O2 Sat by Pulse Oximetry [ Assessment] O2 Sat by Pulse Oximetry [ Bilateral Throughout] 09/17/17 09/17/17 09/17/17 09:00 09:05 09:16 Temperature Pulse Rate 86 96 H 102 H Pulse Rate [ 89 Anterior Bilateral Throughout] Pulse Rate [ 91 H Bilateral Throughout] Respiratory 16 14 Rate Respiratory 14 Rate [Anterior Bilateral Throughout] Respiratory Rate [Back] Respiratory 15 Rate [Bilateral Throughout] Blood Pressure 118/58 123/56 123/56 O2 Sat by Pulse 100 98 98 Oximetry O2 Sat by Pulse Oximetry [ Anterior Bilateral Throughout] O2 Sat by Pulse 100 Oximetry [ Assessment] O2 Sat by Pulse Oximetry [ Bilateral Throughout] 09/17/17 09/17/17 09/17/17 09:30 09:46 09:51 Temperature Pulse Rate 81 92 H 84 Pulse Rate [ Anterior Bilateral Throughout] Pulse Rate [ Bilateral Throughout] Respiratory 15 12 16 Rate Respiratory Rate [Anterior Bilateral Throughout] Respiratory Rate [Back] Respiratory Rate [Bilateral Throughout] Blood Pressure 133/59 128/65 128/65 O2 Sat by Pulse 98 100 100 Oximetry O2 Sat by Pulse Oximetry [ Anterior Bilateral Throughout] O2 Sat by Pulse Oximetry [ Assessment] O2 Sat by Pulse Oximetry [ Bilateral Throughout] 09/17/17 09/17/17 09/17/17 10:00 10:16 10:25 Temperature 98.6 F Pulse Rate 94 H 83 83 Pulse Rate [ Anterior Bilateral Throughout] Pulse Rate [ Bilateral Throughout] Respiratory 15 16 17 Rate Respiratory Rate [Anterior Bilateral Throughout] Respiratory 16 Rate [Back] Respiratory Rate [Bilateral Throughout] Blood Pressure 124/65 124/65 122/55 O2 Sat by Pulse 100 100 Oximetry O2 Sat by Pulse 100 Oximetry [ Anterior Bilateral Throughout] O2 Sat by Pulse Oximetry [ Assessment] O2 Sat by Pulse 100 Oximetry [ Bilateral Throughout] 09/17/17 09/17/17 09/17/17 10:30 10:45 11:00 Temperature Pulse Rate 82 83 91 H Pulse Rate [ Anterior Bilateral Throughout] Pulse Rate [ Bilateral Throughout] Respiratory 19 Rate Respiratory Rate [Anterior Bilateral Throughout] Respiratory Rate [Back] Respiratory Rate [Bilateral Throughout] Blood Pressure 122/55 122/55 120/57 O2 Sat by Pulse 100 Oximetry O2 Sat by Pulse Oximetry [ Anterior Bilateral Throughout] O2 Sat by Pulse Oximetry [ Assessment] O2 Sat by Pulse Oximetry [ Bilateral Throughout] 09/17/17 09/17/17 09/17/17 11:15 11:30 11:45 Temperature Pulse Rate 92 H 94 H 96 H Pulse Rate [ Anterior Bilateral Throughout] Pulse Rate [ Bilateral Throughout] Respiratory Rate Respiratory Rate [Anterior Bilateral Throughout] Respiratory Rate [Back] Respiratory Rate [Bilateral Throughout] Blood Pressure 115/56 106/49 123/47 O2 Sat by Pulse Oximetry O2 Sat by Pulse Oximetry [ Anterior Bilateral Throughout] O2 Sat by Pulse Oximetry [ Assessment] O2 Sat by Pulse Oximetry [ Bilateral Throughout] 09/17/17 09/17/17 09/17/17 12:00 12:15 12:30 Temperature 98.9 F Pulse Rate 91 H 93 H 91 H Pulse Rate [ Anterior Bilateral Throughout] Pulse Rate [ Bilateral Throughout] Respiratory Rate Respiratory Rate [Anterior Bilateral Throughout] Respiratory Rate [Back] Respiratory Rate [Bilateral Throughout] Blood Pressure 106/52 110/59 110/50 O2 Sat by Pulse Oximetry O2 Sat by Pulse Oximetry [ Anterior Bilateral Throughout] O2 Sat by Pulse Oximetry [ Assessment] O2 Sat by Pulse Oximetry [ Bilateral Throughout] 09/17/17 09/17/17 09/17/17 12:45 13:00 13:15 Temperature Pulse Rate 83 103 H 111 H Pulse Rate [ Anterior Bilateral Throughout] Pulse Rate [ Bilateral Throughout] Respiratory Rate Respiratory Rate [Anterior Bilateral Throughout] Respiratory Rate [Back] Respiratory Rate [Bilateral Throughout] Blood Pressure 110/54 123/58 104/50 O2 Sat by Pulse Oximetry O2 Sat by Pulse Oximetry [ Anterior Bilateral Throughout] O2 Sat by Pulse Oximetry [ Assessment] O2 Sat by Pulse Oximetry [ Bilateral Throughout] 09/17/17 09/17/17 09/17/17 13:33 13:46 15:33 Temperature 98.9 F 98.3 F Pulse Rate 96 H 81 Pulse Rate [ Anterior Bilateral Throughout] Pulse Rate [ Bilateral Throughout] Respiratory 17 18 Rate Respiratory Rate [Anterior Bilateral Throughout] Respiratory Rate [Back] Respiratory Rate [Bilateral Throughout] Blood Pressure 109/52 O2 Sat by Pulse 100 Oximetry O2 Sat by Pulse Oximetry [ Anterior Bilateral Throughout] O2 Sat by Pulse Oximetry [ Assessment] O2 Sat by Pulse Oximetry [ Bilateral Throughout] 09/17/17 09/17/17 09/17/17 16:00 16:10 16:15 Temperature Pulse Rate 90 Pulse Rate [ 90 93 H Anterior Bilateral Throughout] Pulse Rate [ Bilateral Throughout] Respiratory 16 Rate Respiratory 19 18 Rate [Anterior Bilateral Throughout] Respiratory Rate [Back] Respiratory Rate [Bilateral Throughout] Blood Pressure 104/59 O2 Sat by Pulse 100 100 Oximetry O2 Sat by Pulse Oximetry [ Anterior Bilateral Throughout] O2 Sat by Pulse 98 Oximetry [ Assessment] O2 Sat by Pulse Oximetry [ Bilateral Throughout] - General physical appearance Narrative Exam: Gen: Awake on vent and answers questions appropriately. NAD ENT: tracheostomy site c/d/i CV: S1, S2+ Resp: even and unlabored Abd: soft, NT, ND. G port to OSD with minimal bilious drainage. J port clamped. Dressing removed. Incision c/d/i with arpan in place Ext: generalized anasarca : barrientos in place - Labs 09/17/17 05:30 09/17/17 05:30 Diabetes panel 09/17/17 Range/Units 05:30 Sodium 138 (137-145) mmol/L Potassium 3.8 D (3.6-5.0) mmol/L Chloride 103.5 (98-107) mmol/L Carbon Dioxide 22 D (22-30) mmol/L BUN 93 H (9-20) mg/dL Creatinine 3.6 H (0.8-1.5) mg/dL Glucose 201 H (75-100) mg/dL Calcium 7.5 L (8.4-10.2) mg/dL AST 62 H (5-40) units/L ALT 619 H (7-56) units/L Alkaline Phosphatase 112 (35-129) units/L Total Protein 4.1 L (6.3-8.2) g/dL Albumin 1.7 L (3.9-5) g/dL Calcium panel 09/17/17 Range/Units 05:30 Calcium 7.5 L (8.4-10.2) mg/dL Phosphorus 6.10 H D (2.5-4.5) mg/dL Albumin 1.7 L (3.9-5) g/dL Pituitary panel 09/17/17 Range/Units 05:30 Sodium 138 (137-145) mmol/L Potassium 3.8 D (3.6-5.0) mmol/L Chloride 103.5 (98-107) mmol/L Carbon Dioxide 22 D (22-30) mmol/L BUN 93 H (9-20) mg/dL Creatinine 3.6 H (0.8-1.5) mg/dL Glucose 201 H (75-100) mg/dL Calcium 7.5 L (8.4-10.2) mg/dL Adrenal panel 09/17/17 Range/Units 05:30 Sodium 138 (137-145) mmol/L Potassium 3.8 D (3.6-5.0) mmol/L Chloride 103.5 (98-107) mmol/L Carbon Dioxide 22 D (22-30) mmol/L BUN 93 H (9-20) mg/dL Creatinine 3.6 H (0.8-1.5) mg/dL Glucose 201 H (75-100) mg/dL Calcium 7.5 L (8.4-10.2) mg/dL Total Bilirubin 1.20 (0.1-1.2) mg/dL AST 62 H (5-40) units/L ALT 619 H (7-56) units/L Alkaline Phosphatase 112 (35-129) units/L Total Protein 4.1 L (6.3-8.2) g/dL Albumin 1.7 L (3.9-5) g/dL
[2017-09-17] MEDS ORDERED: SIMPLE SYRUP FEEDTUBE PRN ×2 (18:25)
[2017-09-17] MEDS ORDERED: SODIUM BICARBONATE FEEDTUBE PRN (18:25)
[2017-09-17] MEDS ORDERED: PANCREAZE DR 10,500 UNIT FEEDTUBE PRN (18:25)
[2017-09-17] MEDS ORDERED: NACL 0.9 (PRIMING MACHINE ONLY DIALYSIS) MC ONE (19:06)
[2017-09-17] MEDS ORDERED: TPN ADULT 2,400 ML IV SCH (20:00)
[2017-09-18] MEDS: DUONEB *Not for PRN Use IH SCH ×3 (00:09→16:32)
[2017-09-18] MEDS: PULMICORT IH SCH ×3 (00:09→20:28)
[2017-09-18] MEDS: BROVANA NEBU IH SCH ×3 (00:12→20:28)
[2017-09-18] MEDS: CORDARONE 900 MG in D5W 482 ML IV SCH (01:19)
[2017-09-18] MEDS: DIFLUCAN 200 MG/100 ML BAG IV SCH ×2 (03:43→22:05)
[2017-09-18 04:33] LABS: Hematocrit 28.2 % (35.5-45.6); Hemoglobin 9.5 gm/dl (11.8-15.2); Mean Corpuscular HGB Conc 34 % (32-34); Mean Corpuscular Hemoglobin 31 pg (28-32); Mean Corpuscular Volume 92 fl (84-94); Red Blood Count 3.05 M/mm3 (3.65-5.03)
[2017-09-18 04:57] LABS: INR 1.23 (0.87-1.13)
[2017-09-18 05:02] LABS: Albumin 1.9 g/dL (3.9-5); Calcium 7.6 mg/dL (8.4-10.2)
[2017-09-18 05:24] LABS: Platelet Count 29 K/mm3 (140-440)
[2017-09-18] MEDS: HumaLOG SUB-Q SCH ×5 (06:11→19:11)
[2017-09-18] MEDS: FLAGYL 500 MG/100 ML 500 MG/100 ML BAG IV SCH ×3 (06:12→21:51)
[2017-09-18 06:49] LABS: Band Neutrophils # (Manual) 0.6 K/mm3; Basophils % (Manual) 0 % (0.0-1.8); Eosinophils % (Manual) 0 % (0.0-4.3); Total Cells Counted 100
[2017-09-18 06:50] LABS: Anisocytosis 1+; Burr Cells Few; Hypochromasia 1+; Ovalocytes Few; Platelet Estimate Consistent w Auto
--- NOTE | 2017-09-18 09:07 | Hem/Onc Progress Note ---
Assessment and Plan plts low- if bleeding or below 20k, will transfuse Platelets improving lfts improving Monocytopenia most likely secondary to infection. Awaiting heparin-induced, cytopenia assay. Hold heparin Subjective Date of service: 09/18/17 Interval history: pt without change Objective - Exam Narrative Exam: trach abd bandadged - Constitutional Vitals: Last Vital Signs Temp 98.2 F 09/18/17 04:00 Pulse 84 09/18/17 08:45 Resp 15 09/18/17 08:45 BP 140/68 09/18/17 08:45 Pulse Ox 98 09/18/17 08:45 - Labs Lab Results: Laboratory Results - last 24 hr 09/17/17 09/17/17 09/17/17 10:45 11:31 17:44 WBC RBC Hgb Hct MCV MCH MCHC RDW Plt Count Add Manual Diff Total Counted Seg Neutrophils % Seg Neuts % (Manual) Band Neutrophils % Lymphocytes % (Manual) Reactive Lymphs % (Man) Monocytes % (Manual) Eosinophils % (Manual) Basophils % (Manual) Metamyelocytes % Myelocytes % Promyelocytes % Blast Cells % Nucleated RBC % Seg Neutrophils # Man Band Neutrophils # Lymphocytes # (Manual) Abs React Lymphs (Man) Monocytes # (Manual) Eosinophils # (Manual) Basophils # (Manual) Metamyelocytes # Myelocytes # Promyelocytes # Blast Cells # WBC Morphology Hypersegmented Neuts Hyposegmented Neuts Hypogranular Neuts Smudge Cells Toxic Granulation Toxic Vacuolation Dohle Bodies Pelger-Huet Anomaly Tito Rods Platelet Estimate Clumped Platelets Plt Clumps, EDTA Large Platelets Giant Platelets Platelet Satelliting Plt Morphology Comment RBC Morphology Dimorphic RBCs Polychromasia Hypochromasia Poikilocytosis Anisocytosis Microcytosis Macrocytosis Spherocytes Pappenheimer Bodies Sickle Cells Target Cells Tear Drop Cells Ovalocytes Helmet Cells Kevin-Noonan Bodies [place] Rings Oak Cells Bite Cells Crenated Cell Elliptocytes Acanthocytes (Spur) Rouleaux Hemoglobin C Crystals Schistocytes Malaria parasites Brayan Bodies Hem Pathologist Commnt PT INR POC ABG pH 7.406 POC ABG pCO2 39.7 POC ABG pO2 97 POC ABG HCO3 24.9 POC ABG Total CO2 26 POC ABG O2 Sat 98 POC ABG Base Excess 0 FiO2 40 Sodium Potassium Chloride Carbon Dioxide Anion Gap BUN Creatinine Estimated GFR BUN/Creatinine Ratio Glucose POC Glucose 221 H Calcium Phosphorus Magnesium Total Bilirubin AST ALT Alkaline Phosphatase Total Protein Albumin Albumin/Globulin Ratio Random Vancomycin Blood Type O POSITIVE Antibody Screen Negative Crossmatch See Detail 09/17/17 09/18/17 09/18/17 17:46 00:05 03:46 WBC RBC Hgb Hct MCV MCH MCHC RDW Plt Count Add Manual Diff Total Counted Seg Neutrophils % Seg Neuts % (Manual) Band Neutrophils % Lymphocytes % (Manual) Reactive Lymphs % (Man) Monocytes % (Manual) Eosinophils % (Manual) Basophils % (Manual) Metamyelocytes % Myelocytes % Promyelocytes % Blast Cells % Nucleated RBC % Seg Neutrophils # Man Band Neutrophils # Lymphocytes # (Manual) Abs React Lymphs (Man) Monocytes # (Manual) Eosinophils # (Manual) Basophils # (Manual) Metamyelocytes # Myelocytes # Promyelocytes # Blast Cells # WBC Morphology Hypersegmented Neuts Hyposegmented Neuts Hypogranular Neuts Smudge Cells Toxic Granulation Toxic Vacuolation Dohle Bodies Pelger-Huet Anomaly Tito Rods Platelet Estimate Clumped Platelets Plt Clumps, EDTA Large Platelets Giant Platelets Platelet Satelliting Plt Morphology Comment RBC Morphology Dimorphic RBCs Polychromasia Hypochromasia Poikilocytosis Anisocytosis Microcytosis Macrocytosis Spherocytes Pappenheimer Bodies Sickle Cells Target Cells Tear Drop Cells Ovalocytes Helmet Cells Kevin-Noonan Bodies [place] Rings Oak Cells Bite Cells Crenated Cell Elliptocytes Acanthocytes (Spur) Rouleaux Hemoglobin C Crystals Schistocytes Malaria parasites Brayan Bodies Hem Pathologist Commnt PT INR POC ABG pH POC ABG pCO2 POC ABG pO2 POC ABG HCO3 POC ABG Total CO2 POC ABG O2 Sat POC ABG Base Excess FiO2 Sodium Potassium Chloride Carbon Dioxide Anion Gap BUN Creatinine Estimated GFR BUN/Creatinine Ratio Glucose POC Glucose 209 H 168 H Calcium Phosphorus Magnesium Total Bilirubin AST ALT Alkaline Phosphatase Total Protein Albumin Albumin/Globulin Ratio Random Vancomycin 17.6 Blood Type Antibody Screen Crossmatch 09/18/17 09/18/17 09/18/17 03:46 03:46 03:46 WBC 8.4 RBC 3.05 L Hgb 9.5 L Hct 28.2 L MCV 92 MCH 31 MCHC 34 RDW 19.0 H Plt Count 29 L Add Manual Diff Complete Total Counted 100 Seg Neutrophils % Home Aid Seg Neuts % (Manual) 81.0 H Band Neutrophils % 7.0 Lymphocytes % (Manual) 7.0 L Reactive Lymphs % (Man) 0 Monocytes % (Manual) 5.0 Eosinophils % (Manual) 0 Basophils % (Manual) 0 Metamyelocytes % 0 Myelocytes % 0 Promyelocytes % 0 Blast Cells % 0 Nucleated RBC % 3.0 H Seg Neutrophils # Man 6.8 Band Neutrophils # 0.6 Lymphocytes # (Manual) 0.6 L Abs React Lymphs (Man) 0.0 Monocytes # (Manual) 0.4 Eosinophils # (Manual) 0.0 Basophils # (Manual) 0.0 Metamyelocytes # 0.0 Myelocytes # 0.0 Promyelocytes # 0.0 Blast Cells # 0.0 WBC Morphology Not Reportable Hypersegmented Neuts Not Reportable Hyposegmented Neuts Not Reportable Hypogranular Neuts Not Reportable Smudge Cells Not Reportable Toxic Granulation Not Reportable Toxic Vacuolation Not Reportable Dohle Bodies Not Reportable Pelger-Huet Anomaly Not Reportable Tito Rods Not Reportable Platelet Estimate Consistent w auto Clumped Platelets Not Reportable Plt Clumps, EDTA Not Reportable Large Platelets Not Reportable Giant Platelets Not Reportable Platelet Satelliting Not Reportable Plt Morphology Comment Not Reportable RBC Morphology Not Reportable Dimorphic RBCs Not Reportable Polychromasia 1+ Hypochromasia 1+ Poikilocytosis Not Reportable Anisocytosis 1+ Microcytosis Not Reportable Macrocytosis Not Reportable Spherocytes Not Reportable Pappenheimer Bodies Not Reportable Sickle Cells Not Reportable Target Cells Not Reportable Tear Drop Cells Not Reportable Ovalocytes Few Helmet Cells Not Reportable Kevin-Noonan Bodies Not Reportable [place] Rings Not Reportable Oak Cells Few Bite Cells Not Reportable Crenated Cell Not Reportable Elliptocytes Not Reportable Acanthocytes (Spur) Not Reportable Rouleaux Not Reportable Hemoglobin C Crystals Not Reportable Schistocytes Not Reportable Malaria parasites Not Reportable Brayan Bodies Not Reportable Hem Pathologist Commnt No PT 16.2 H INR 1.23 H POC ABG pH POC ABG pCO2 POC ABG pO2 POC ABG HCO3 POC ABG Total CO2 POC ABG O2 Sat POC ABG Base Excess FiO2 Sodium 138 Potassium 3.4 L Chloride 97.2 L Carbon Dioxide 25 Anion Gap 19 BUN 73 H Creatinine 3.1 H Estimated GFR 20 BUN/Creatinine Ratio 24 Glucose 160 H POC Glucose Calcium 7.6 L Phosphorus 4.60 H D Magnesium 1.80 Total Bilirubin 1.10 AST 34 ALT 446 H Alkaline Phosphatase 136 H Total Protein 4.5 L Albumin 1.9 L Albumin/Globulin Ratio 0.7 Random Vancomycin Blood Type Antibody Screen Crossmatch 09/18/17 09/18/17 04:59 05:54 WBC RBC Hgb Hct MCV MCH MCHC RDW Plt Count Add Manual Diff Total Counted Seg Neutrophils % Seg Neuts % (Manual) Band Neutrophils % Lymphocytes % (Manual) Reactive Lymphs % (Man) Monocytes % (Manual) Eosinophils % (Manual) Basophils % (Manual) Metamyelocytes % Myelocytes % Promyelocytes % Blast Cells % Nucleated RBC % Seg Neutrophils # Man Band Neutrophils # Lymphocytes # (Manual) Abs React Lymphs (Man) Monocytes # (Manual) Eosinophils # (Manual) Basophils # (Manual) Metamyelocytes # Myelocytes # Promyelocytes # Blast Cells # WBC Morphology Hypersegmented Neuts Hyposegmented Neuts Hypogranular Neuts Smudge Cells Toxic Granulation Toxic Vacuolation Dohle Bodies Pelger-Huet Anomaly Tito Rods Platelet Estimate Clumped Platelets Plt Clumps, EDTA Large Platelets Giant Platelets Platelet Satelliting Plt Morphology Comment RBC Morphology Dimorphic RBCs Polychromasia Hypochromasia Poikilocytosis Anisocytosis Microcytosis Macrocytosis Spherocytes Pappenheimer Bodies Sickle Cells Target Cells Tear Drop Cells Ovalocytes Helmet Cells Kevin-Noonan Bodies [place] Rings Lisa Cells Bite Cells Crenated Cell Elliptocytes Acanthocytes (Spur) Rouleaux Hemoglobin C Crystals Schistocytes Malaria parasites Brayan Bodies Hem Pathologist Commnt PT INR POC ABG pH 7.383 POC ABG pCO2 39.5 POC ABG pO2 75 L POC ABG HCO3 23.5 POC ABG Total CO2 25 POC ABG O2 Sat 95 POC ABG Base Excess -2 FiO2 40 Sodium Potassium Chloride Carbon Dioxide Anion Gap BUN Creatinine Estimated GFR BUN/Creatinine Ratio Glucose POC Glucose 202 H Calcium Phosphorus Magnesium Total Bilirubin AST ALT Alkaline Phosphatase Total Protein Albumin Albumin/Globulin Ratio Random Vancomycin Blood Type Antibody Screen Crossmatch
--- NOTE | 2017-09-18 09:34 | Progress Note ---
Assessment and Plan Sepsis with septic shock improving Continue with iv antibiotic per ID Cautious iv hydration b/c of Acute on chronic renal failure now on HD - Peritonitis from dislodged PEG tube and sepsis s/p lap with peritoneal lavage and repair of gastrostomy, removal of PEG tube Continue with iv levquin, Flagyl and diflucan - Gangerous gallbaldder s/p cholecyctectomy - Acute on Chronic renal failure requiring HD Improving. improving - Acute on chronic respiratory failure On Mechanical ventilation via trach continue with bronchodilator Pulm Following - Anemia - of chronic disease s/p blood transfusion - Transaminasemia from gangerous gall bladder s/p cholecyctectomy improving Will trend. anticipate improvement with iv hydration - Metabolic acidosis from septic shock continue with fluid resuscitation - Possible HIT Off heparin Hematology following - DVT PPX with lovenox Subjective Date of service: 09/18/17 Principal diagnosis: Septic shock. peritonitis, dislodged PEG tube, WILLIAM Interval history: Pt seen and examined. s/p Closure of abdominal wound with cholecyctectomy of gangrenous gall bladder. Still in ICU. Discussed with nursing staff. No overnight event reported to me. Off pressors Objective - Exam Narrative Exam: Constitutional: On mechanical ventilation through tracheostomy. Awake. Afebrile Head: Normocephalic atraumatic Eyes: Pupils are equal round and reactive to light Nose: No enlarged turbinates, no septal deviation. Mouth: Moist mucous membranes. Neck: Supple no thyromegaly. No bruit. No JVD Heart: Regular rate and rhythm, S1-S2 abnormal. No rubs murmurs or gallop Lungs: Decreased breath sound bilaterally. No rhonchi Abdomen: Soft, Dry surgical wound dressing nontender. Extremities: 2+ edema no cyanosis and no clubbing. Neuro: Alert oriented Oriented x1. No focal sensory or motor deficit. Skin: No rashes no hyperemic spots Psychiatry: Euthymic. Calm. - Constitutional Vitals: Vital Signs - 12hr 09/17/17 09/17/17 09/17/17 21:40 21:50 21:52 Temperature Pulse Rate 96 H 91 H 96 H Pulse Rate [ Anterior Bilateral Throughout] Pulse Rate [ Right Dorsalis Pedis] Respiratory 13 18 18 Rate Respiratory Rate [Anterior Bilateral Throughout] Blood Pressure 143/62 136/69 136/69 O2 Sat by Pulse 98 100 97 Oximetry O2 Sat by Pulse Oximetry [ Anterior Bilateral Throughout] O2 Sat by Pulse Oximetry [ Assessment] 09/17/17 09/17/17 09/17/17 21:53 21:56 22:00 Temperature 98.2 F Pulse Rate 87 102 H Pulse Rate [ Anterior Bilateral Throughout] Pulse Rate [ Right Dorsalis Pedis] Respiratory 23 Rate Respiratory Rate [Anterior Bilateral Throughout] Blood Pressure 136/69 138/68 O2 Sat by Pulse 97 98 Oximetry O2 Sat by Pulse Oximetry [ Anterior Bilateral Throughout] O2 Sat by Pulse Oximetry [ Assessment] 09/17/17 09/17/17 09/17/17 22:15 22:30 22:45 Temperature Pulse Rate 102 H 99 H 100 H Pulse Rate [ Anterior Bilateral Throughout] Pulse Rate [ Right Dorsalis Pedis] Respiratory 17 15 15 Rate Respiratory Rate [Anterior Bilateral Throughout] Blood Pressure 130/70 138/66 145/72 O2 Sat by Pulse 97 98 97 Oximetry O2 Sat by Pulse Oximetry [ Anterior Bilateral Throughout] O2 Sat by Pulse Oximetry [ Assessment] 09/17/17 09/17/17 09/17/17 23:00 23:15 23:30 Temperature 98.2 F Pulse Rate 96 H 89 89 Pulse Rate [ Anterior Bilateral Throughout] Pulse Rate [ Right Dorsalis Pedis] Respiratory 19 22 18 Rate Respiratory Rate [Anterior Bilateral Throughout] Blood Pressure 146/67 141/70 137/65 O2 Sat by Pulse 97 99 99 Oximetry O2 Sat by Pulse Oximetry [ Anterior Bilateral Throughout] O2 Sat by Pulse Oximetry [ Assessment] 09/17/17 09/18/17 09/18/17 23:45 00:00 00:02 Temperature Pulse Rate 102 H 94 H 93 H Pulse Rate [ Anterior Bilateral Throughout] Pulse Rate [ 81 Right Dorsalis Pedis] Respiratory 18 19 Rate Respiratory Rate [Anterior Bilateral Throughout] Blood Pressure 146/76 145/66 146/76 O2 Sat by Pulse 98 98 98 Oximetry O2 Sat by Pulse Oximetry [ Anterior Bilateral Throughout] O2 Sat by Pulse Oximetry [ Assessment] 09/18/17 09/18/17 09/18/17 00:15 00:24 00:27 Temperature 99.1 F Pulse Rate 92 H Pulse Rate [ 87 Anterior Bilateral Throughout] Pulse Rate [ Right Dorsalis Pedis] Respiratory 19 Rate Respiratory 17 Rate [Anterior Bilateral Throughout] Blood Pressure 130/67 O2 Sat by Pulse 98 Oximetry O2 Sat by Pulse Oximetry [ Anterior Bilateral Throughout] O2 Sat by Pulse 100 Oximetry [ Assessment] 09/18/17 09/18/17 09/18/17 00:30 00:45 00:53 Temperature 98.2 F Pulse Rate 97 H 91 H Pulse Rate [ Anterior Bilateral Throughout] Pulse Rate [ Right Dorsalis Pedis] Respiratory 18 17 Rate Respiratory Rate [Anterior Bilateral Throughout] Blood Pressure 139/76 132/68 O2 Sat by Pulse 98 98 Oximetry O2 Sat by Pulse Oximetry [ Anterior Bilateral Throughout] O2 Sat by Pulse Oximetry [ Assessment] 09/18/17 09/18/17 09/18/17 01:00 01:15 01:30 Temperature Pulse Rate 92 H 101 H 99 H Pulse Rate [ Anterior Bilateral Throughout] Pulse Rate [ Right Dorsalis Pedis] Respiratory 20 18 17 Rate Respiratory Rate [Anterior Bilateral Throughout] Blood Pressure 141/63 137/73 132/74 O2 Sat by Pulse 98 99 98 Oximetry O2 Sat by Pulse Oximetry [ Anterior Bilateral Throughout] O2 Sat by Pulse Oximetry [ Assessment] 09/18/17 09/18/17 09/18/17 01:45 02:00 02:15 Temperature Pulse Rate 98 H 96 H 101 H Pulse Rate [ Anterior Bilateral Throughout] Pulse Rate [ Right Dorsalis Pedis] Respiratory 19 19 18 Rate Respiratory Rate [Anterior Bilateral Throughout] Blood Pressure 141/70 145/65 138/69 O2 Sat by Pulse 99 98 99 Oximetry O2 Sat by Pulse Oximetry [ Anterior Bilateral Throughout] O2 Sat by Pulse Oximetry [ Assessment] 09/18/17 09/18/17 09/18/17 02:30 02:45 03:00 Temperature Pulse Rate 81 103 H 89 Pulse Rate [ Anterior Bilateral Throughout] Pulse Rate [ Right Dorsalis Pedis] Respiratory 17 18 18 Rate Respiratory Rate [Anterior Bilateral Throughout] Blood Pressure 130/68 129/75 133/73 O2 Sat by Pulse 98 98 97 Oximetry O2 Sat by Pulse Oximetry [ Anterior Bilateral Throughout] O2 Sat by Pulse Oximetry [ Assessment] 09/18/17 09/18/17 09/18/17 03:15 03:30 03:45 Temperature Pulse Rate 103 H 94 H 91 H Pulse Rate [ Anterior Bilateral Throughout] Pulse Rate [ Right Dorsalis Pedis] Respiratory 19 18 18 Rate Respiratory Rate [Anterior Bilateral Throughout] Blood Pressure 140/69 135/83 143/72 O2 Sat by Pulse 97 98 98 Oximetry O2 Sat by Pulse Oximetry [ Anterior Bilateral Throughout] O2 Sat by Pulse Oximetry [ Assessment] 09/18/17 09/18/17 09/18/17 04:00 04:15 04:30 Temperature 98.2 F Pulse Rate 90 85 98 H Pulse Rate [ Anterior Bilateral Throughout] Pulse Rate [ 90 Right Dorsalis Pedis] Respiratory 18 16 21 Rate Respiratory Rate [Anterior Bilateral Throughout] Blood Pressure 146/68 143/78 154/79 O2 Sat by Pulse 99 100 98 Oximetry O2 Sat by Pulse Oximetry [ Anterior Bilateral Throughout] O2 Sat by Pulse Oximetry [ Assessment] 09/18/17 09/18/17 09/18/17 04:45 05:00 05:15 Temperature Pulse Rate 80 92 H 91 H Pulse Rate [ Anterior Bilateral Throughout] Pulse Rate [ Right Dorsalis Pedis] Respiratory 18 17 18 Rate Respiratory Rate [Anterior Bilateral Throughout] Blood Pressure 152/70 151/71 153/75 O2 Sat by Pulse 98 98 99 Oximetry O2 Sat by Pulse Oximetry [ Anterior Bilateral Throughout] O2 Sat by Pulse Oximetry [ Assessment] 09/18/17 09/18/17 09/18/17 05:30 05:34 05:45 Temperature Pulse Rate 97 H 96 H 92 H Pulse Rate [ Anterior Bilateral Throughout] Pulse Rate [ Right Dorsalis Pedis] Respiratory 18 16 Rate Respiratory Rate [Anterior Bilateral Throughout] Blood Pressure 144/70 144/70 143/69 O2 Sat by Pulse 100 100 98 Oximetry O2 Sat by Pulse Oximetry [ Anterior Bilateral Throughout] O2 Sat by Pulse Oximetry [ Assessment] 09/18/17 09/18/17 09/18/17 06:00 06:15 06:30 Temperature Pulse Rate 89 93 H 87 Pulse Rate [ Anterior Bilateral Throughout] Pulse Rate [ Right Dorsalis Pedis] Respiratory 17 16 16 Rate Respiratory Rate [Anterior Bilateral Throughout] Blood Pressure 141/69 140/70 144/63 O2 Sat by Pulse 99 99 99 Oximetry O2 Sat by Pulse Oximetry [ Anterior Bilateral Throughout] O2 Sat by Pulse Oximetry [ Assessment] 09/18/17 09/18/17 09/18/17 06:45 07:00 07:15 Temperature Pulse Rate 97 H 87 94 H Pulse Rate [ Anterior Bilateral Throughout] Pulse Rate [ Right Dorsalis Pedis] Respiratory 17 19 17 Rate Respiratory Rate [Anterior Bilateral Throughout] Blood Pressure 145/72 152/74 132/66 O2 Sat by Pulse 99 99 99 Oximetry O2 Sat by Pulse Oximetry [ Anterior Bilateral Throughout] O2 Sat by Pulse Oximetry [ Assessment] 09/18/17 09/18/17 09/18/17 07:30 07:45 07:50 Temperature Pulse Rate 88 84 Pulse Rate [ 83 Anterior Bilateral Throughout] Pulse Rate [ Right Dorsalis Pedis] Respiratory 15 15 Rate Respiratory 20 Rate [Anterior Bilateral Throughout] Blood Pressure 149/69 152/68 O2 Sat by Pulse 98 99 Oximetry O2 Sat by Pulse Oximetry [ Anterior Bilateral Throughout] O2 Sat by Pulse Oximetry [ Assessment] 09/18/17 09/18/17 09/18/17 07:59 08:00 08:15 Temperature 97.3 F L Pulse Rate 83 86 87 Pulse Rate [ Anterior Bilateral Throughout] Pulse Rate [ 87 Right Dorsalis Pedis] Respiratory 18 16 Rate Respiratory Rate [Anterior Bilateral Throughout] Blood Pressure 152/68 152/68 152/69 O2 Sat by Pulse 99 99 99 Oximetry O2 Sat by Pulse Oximetry [ Anterior Bilateral Throughout] O2 Sat by Pulse Oximetry [ Assessment] 09/18/17 09/18/17 09/18/17 08:30 08:45 08:50 Temperature 97.8 F Pulse Rate 85 90 79 Pulse Rate [ Anterior Bilateral Throughout] Pulse Rate [ Right Dorsalis Pedis] Respiratory 14 16 Rate Respiratory Rate [Anterior Bilateral Throughout] Blood Pressure 142/64 140/68 146/67 O2 Sat by Pulse 98 98 Oximetry O2 Sat by Pulse 99 Oximetry [ Anterior Bilateral Throughout] O2 Sat by Pulse Oximetry [ Assessment] 09/18/17 09/18/17 09:00 09:15 Temperature Pulse Rate 79 83 Pulse Rate [ Anterior Bilateral Throughout] Pulse Rate [ Right Dorsalis Pedis] Respiratory 14 15 Rate Respiratory Rate [Anterior Bilateral Throughout] Blood Pressure 134/62 144/67 O2 Sat by Pulse 98 98 Oximetry O2 Sat by Pulse Oximetry [ Anterior Bilateral Throughout] O2 Sat by Pulse Oximetry [ Assessment] - Labs CBC & Chem 7: 09/18/17 03:46 09/18/17 03:46 Labs: Abnormal lab results 09/17/17 09/17/17 09/17/17 Range/Units 10:45 11:31 17:46 RBC (3.65-5.03) M/mm3 Hgb (11.8-15.2) gm/dl Hct (35.5-45.6) % RDW (13.2-15.2) % Plt Count (140-440) K/mm3 Seg Neuts % (Manual) (40.0-70.0) % Lymphocytes % (Manual) (13.4-35.0) % Nucleated RBC % (0.0-0.9) % Lymphocytes # (Manual) (1.2-5.4) K/mm3 PT (12.2-14.9) Sec. INR (0.87-1.13) POC ABG pO2 (80-105) Potassium (3.6-5.0) mmol/L Chloride (98-107) mmol/L BUN (9-20) mg/dL Creatinine (0.8-1.5) mg/dL Glucose (75-100) mg/dL POC Glucose 221 H 209 H (70-105) Calcium (8.4-10.2) mg/dL Phosphorus (2.5-4.5) mg/dL ALT (7-56) units/L Alkaline Phosphatase (35-129) units/L Total Protein (6.3-8.2) g/dL Albumin (3.9-5) g/dL Crossmatch See Detail 09/18/17 09/18/17 09/18/17 Range/Units 00:05 03:46 03:46 RBC 3.05 L (3.65-5.03) M/mm3 Hgb 9.5 L (11.8-15.2) gm/dl Hct 28.2 L (35.5-45.6) % RDW 19.0 H (13.2-15.2) % Plt Count 29 L (140-440) K/mm3 Seg Neuts % (Manual) 81.0 H (40.0-70.0) % Lymphocytes % (Manual) 7.0 L (13.4-35.0) % Nucleated RBC % 3.0 H (0.0-0.9) % Lymphocytes # (Manual) 0.6 L (1.2-5.4) K/mm3 PT 16.2 H (12.2-14.9) Sec. INR 1.23 H (0.87-1.13) POC ABG pO2 (80-105) Potassium (3.6-5.0) mmol/L Chloride (98-107) mmol/L BUN (9-20) mg/dL Creatinine (0.8-1.5) mg/dL Glucose (75-100) mg/dL POC Glucose 168 H (70-105) Calcium (8.4-10.2) mg/dL Phosphorus (2.5-4.5) mg/dL ALT (7-56) units/L Alkaline Phosphatase (35-129) units/L Total Protein (6.3-8.2) g/dL Albumin (3.9-5) g/dL Crossmatch 09/18/17 09/18/17 09/18/17 Range/Units 03:46 04:59 05:54 RBC (3.65-5.03) M/mm3 Hgb (11.8-15.2) gm/dl Hct (35.5-45.6) % RDW (13.2-15.2) % Plt Count (140-440) K/mm3 Seg Neuts % (Manual) (40.0-70.0) % Lymphocytes % (Manual) (13.4-35.0) % Nucleated RBC % (0.0-0.9) % Lymphocytes # (Manual) (1.2-5.4) K/mm3 PT (12.2-14.9) Sec. INR (0.87-1.13) POC ABG pO2 75 L (80-105) Potassium 3.4 L (3.6-5.0) mmol/L Chloride 97.2 L (98-107) mmol/L BUN 73 H (9-20) mg/dL Creatinine 3.1 H (0.8-1.5) mg/dL Glucose 160 H (75-100) mg/dL POC Glucose 202 H (70-105) Calcium 7.6 L (8.4-10.2) mg/dL Phosphorus 4.60 H D (2.5-4.5) mg/dL ALT 446 H (7-56) units/L Alkaline Phosphatase 136 H (35-129) units/L Total Protein 4.5 L (6.3-8.2) g/dL Albumin 1.9 L (3.9-5) g/dL Crossmatch
[2017-09-18] MEDS: LANTUS SUB-Q SCH ×2 (10:52→14:05)
--- NOTE | 2017-09-18 11:25 | Progress Note ---
Assessment and Plan 66-year-old male s/p and Exploratory laparotomy, peritoneal lavage, cholecystectomy, placement of gastrojejunal feeding tube, closure of abdomen. POD 3 Exploratory laparotomy, repair of gastrotomy, removal of PEG tube, peritoneal lavage, temporary closure of abdomen with Abthera Vac on 09/12/17 1. septic shock 2. dislodged PEG tube 3. intraabdominal infection 4. WILLIAM Plan: 1. neuro - prn pain control 2. CV - afib, cardiology on board. Off pressors. DVT ppx - SCDs. Plts stable in 20,000s - heme c/s appreciated. Receiving transfusion today during HD. Monitor for bleeding. 3. Resp: weant vent per ICU team 4. GI: NPO, TPN. GJ tube - Keep G port to OSD. TF @10cc per hr via J port today , do not increase. Nutrition on board. Wean TPN and TF increase 5. : barrientos for strict I/Os. HD per nephro. May DC barrientos when OK with nephro - d/w Dr. Chacon (urology) 6. Endo: accuchecks, ISS. 7. ID: c/w abx per ID recs 8. FEN: BMP in am. replace lytes as needed. c/w NPO. c/w TPN and TF Anticipate likely return to LTAC next week. Discussed with Dr. Houser Thank you for this consultation, please call with questions or concerns. Subjective Date of service: 09/18/17 Narrative: Patient seen and examined. He denies any pain. He states he feels well. No overnight events. He is currently undergoing HD. Objective Vital Signs - 12hr 09/17/17 09/17/17 09/18/17 23:30 23:45 00:00 Temperature Pulse Rate 89 102 H 94 H Pulse Rate [ Anterior Bilateral Throughout] Pulse Rate [ 81 Right Dorsalis Pedis] Respiratory 18 18 19 Rate Respiratory Rate [Anterior Bilateral Throughout] Blood Pressure 137/65 146/76 145/66 O2 Sat by Pulse 99 98 98 Oximetry O2 Sat by Pulse Oximetry [ Anterior Bilateral Throughout] O2 Sat by Pulse Oximetry [ Assessment] 09/18/17 09/18/17 09/18/17 00:02 00:15 00:24 Temperature Pulse Rate 93 H 92 H Pulse Rate [ Anterior Bilateral Throughout] Pulse Rate [ Right Dorsalis Pedis] Respiratory 19 Rate Respiratory Rate [Anterior Bilateral Throughout] Blood Pressure 146/76 130/67 O2 Sat by Pulse 98 98 Oximetry O2 Sat by Pulse Oximetry [ Anterior Bilateral Throughout] O2 Sat by Pulse 100 Oximetry [ Assessment] 09/18/17 09/18/17 09/18/17 00:27 00:30 00:45 Temperature 99.1 F Pulse Rate 97 H 91 H Pulse Rate [ 87 Anterior Bilateral Throughout] Pulse Rate [ Right Dorsalis Pedis] Respiratory 18 17 Rate Respiratory 17 Rate [Anterior Bilateral Throughout] Blood Pressure 139/76 132/68 O2 Sat by Pulse 98 98 Oximetry O2 Sat by Pulse Oximetry [ Anterior Bilateral Throughout] O2 Sat by Pulse Oximetry [ Assessment] 09/18/17 09/18/17 09/18/17 00:53 01:00 01:15 Temperature 98.2 F Pulse Rate 92 H 101 H Pulse Rate [ Anterior Bilateral Throughout] Pulse Rate [ Right Dorsalis Pedis] Respiratory 20 18 Rate Respiratory Rate [Anterior Bilateral Throughout] Blood Pressure 141/63 137/73 O2 Sat by Pulse 98 99 Oximetry O2 Sat by Pulse Oximetry [ Anterior Bilateral Throughout] O2 Sat by Pulse Oximetry [ Assessment] 09/18/17 09/18/17 09/18/17 01:30 01:45 02:00 Temperature Pulse Rate 99 H 98 H 96 H Pulse Rate [ Anterior Bilateral Throughout] Pulse Rate [ Right Dorsalis Pedis] Respiratory 17 19 19 Rate Respiratory Rate [Anterior Bilateral Throughout] Blood Pressure 132/74 141/70 145/65 O2 Sat by Pulse 98 99 98 Oximetry O2 Sat by Pulse Oximetry [ Anterior Bilateral Throughout] O2 Sat by Pulse Oximetry [ Assessment] 09/18/17 09/18/17 09/18/17 02:15 02:30 02:45 Temperature Pulse Rate 101 H 81 103 H Pulse Rate [ Anterior Bilateral Throughout] Pulse Rate [ Right Dorsalis Pedis] Respiratory 18 17 18 Rate Respiratory Rate [Anterior Bilateral Throughout] Blood Pressure 138/69 130/68 129/75 O2 Sat by Pulse 99 98 98 Oximetry O2 Sat by Pulse Oximetry [ Anterior Bilateral Throughout] O2 Sat by Pulse Oximetry [ Assessment] 09/18/17 09/18/17 09/18/17 03:00 03:15 03:30 Temperature Pulse Rate 89 103 H 94 H Pulse Rate [ Anterior Bilateral Throughout] Pulse Rate [ Right Dorsalis Pedis] Respiratory 18 19 18 Rate Respiratory Rate [Anterior Bilateral Throughout] Blood Pressure 133/73 140/69 135/83 O2 Sat by Pulse 97 97 98 Oximetry O2 Sat by Pulse Oximetry [ Anterior Bilateral Throughout] O2 Sat by Pulse Oximetry [ Assessment] 09/18/17 09/18/17 09/18/17 03:45 04:00 04:15 Temperature 98.2 F Pulse Rate 91 H 90 85 Pulse Rate [ Anterior Bilateral Throughout] Pulse Rate [ 90 Right Dorsalis Pedis] Respiratory 18 18 16 Rate Respiratory Rate [Anterior Bilateral Throughout] Blood Pressure 143/72 146/68 143/78 O2 Sat by Pulse 98 99 100 Oximetry O2 Sat by Pulse Oximetry [ Anterior Bilateral Throughout] O2 Sat by Pulse Oximetry [ Assessment] 09/18/17 09/18/17 09/18/17 04:30 04:45 05:00 Temperature Pulse Rate 98 H 80 92 H Pulse Rate [ Anterior Bilateral Throughout] Pulse Rate [ Right Dorsalis Pedis] Respiratory 21 18 17 Rate Respiratory Rate [Anterior Bilateral Throughout] Blood Pressure 154/79 152/70 151/71 O2 Sat by Pulse 98 98 98 Oximetry O2 Sat by Pulse Oximetry [ Anterior Bilateral Throughout] O2 Sat by Pulse Oximetry [ Assessment] 09/18/17 09/18/17 09/18/17 05:15 05:30 05:34 Temperature Pulse Rate 91 H 97 H 96 H Pulse Rate [ Anterior Bilateral Throughout] Pulse Rate [ Right Dorsalis Pedis] Respiratory 18 18 Rate Respiratory Rate [Anterior Bilateral Throughout] Blood Pressure 153/75 144/70 144/70 O2 Sat by Pulse 99 100 100 Oximetry O2 Sat by Pulse Oximetry [ Anterior Bilateral Throughout] O2 Sat by Pulse Oximetry [ Assessment] 09/18/17 09/18/17 09/18/17 05:45 06:00 06:15 Temperature Pulse Rate 92 H 89 93 H Pulse Rate [ Anterior Bilateral Throughout] Pulse Rate [ Right Dorsalis Pedis] Respiratory 16 17 16 Rate Respiratory Rate [Anterior Bilateral Throughout] Blood Pressure 143/69 141/69 140/70 O2 Sat by Pulse 98 99 99 Oximetry O2 Sat by Pulse Oximetry [ Anterior Bilateral Throughout] O2 Sat by Pulse Oximetry [ Assessment] 09/18/17 09/18/17 09/18/17 06:30 06:45 07:00 Temperature Pulse Rate 87 97 H 87 Pulse Rate [ Anterior Bilateral Throughout] Pulse Rate [ Right Dorsalis Pedis] Respiratory 16 17 19 Rate Respiratory Rate [Anterior Bilateral Throughout] Blood Pressure 144/63 145/72 152/74 O2 Sat by Pulse 99 99 99 Oximetry O2 Sat by Pulse Oximetry [ Anterior Bilateral Throughout] O2 Sat by Pulse Oximetry [ Assessment] 09/18/17 09/18/17 09/18/17 07:15 07:30 07:45 Temperature Pulse Rate 94 H 88 84 Pulse Rate [ Anterior Bilateral Throughout] Pulse Rate [ Right Dorsalis Pedis] Respiratory 17 15 15 Rate Respiratory Rate [Anterior Bilateral Throughout] Blood Pressure 132/66 149/69 152/68 O2 Sat by Pulse 99 98 99 Oximetry O2 Sat by Pulse Oximetry [ Anterior Bilateral Throughout] O2 Sat by Pulse Oximetry [ Assessment] 09/18/17 09/18/17 09/18/17 07:50 07:59 08:00 Temperature 97.3 F L Pulse Rate 83 86 Pulse Rate [ 83 Anterior Bilateral Throughout] Pulse Rate [ 87 Right Dorsalis Pedis] Respiratory 18 Rate Respiratory 20 Rate [Anterior Bilateral Throughout] Blood Pressure 152/68 152/68 O2 Sat by Pulse 99 99 Oximetry O2 Sat by Pulse Oximetry [ Anterior Bilateral Throughout] O2 Sat by Pulse Oximetry [ Assessment] 09/18/17 09/18/17 09/18/17 08:15 08:30 08:45 Temperature 97.8 F Pulse Rate 87 85 90 Pulse Rate [ Anterior Bilateral Throughout] Pulse Rate [ Right Dorsalis Pedis] Respiratory 16 14 16 Rate Respiratory Rate [Anterior Bilateral Throughout] Blood Pressure 152/69 142/64 140/68 O2 Sat by Pulse 99 98 98 Oximetry O2 Sat by Pulse 99 Oximetry [ Anterior Bilateral Throughout] O2 Sat by Pulse Oximetry [ Assessment] 09/18/17 09/18/17 09/18/17 08:50 09:00 09:15 Temperature Pulse Rate 79 79 83 Pulse Rate [ Anterior Bilateral Throughout] Pulse Rate [ Right Dorsalis Pedis] Respiratory 14 15 Rate Respiratory Rate [Anterior Bilateral Throughout] Blood Pressure 146/67 134/62 144/67 O2 Sat by Pulse 98 98 Oximetry O2 Sat by Pulse Oximetry [ Anterior Bilateral Throughout] O2 Sat by Pulse Oximetry [ Assessment] 09/18/17 09/18/17 09/18/17 09:30 09:45 10:00 Temperature Pulse Rate 84 82 78 Pulse Rate [ Anterior Bilateral Throughout] Pulse Rate [ Right Dorsalis Pedis] Respiratory Rate Respiratory Rate [Anterior Bilateral Throughout] Blood Pressure 146/68 141/61 144/72 O2 Sat by Pulse Oximetry O2 Sat by Pulse Oximetry [ Anterior Bilateral Throughout] O2 Sat by Pulse Oximetry [ Assessment] 09/18/17 09/18/17 09/18/17 10:15 10:30 10:45 Temperature Pulse Rate 88 89 90 Pulse Rate [ Anterior Bilateral Throughout] Pulse Rate [ Right Dorsalis Pedis] Respiratory Rate Respiratory Rate [Anterior Bilateral Throughout] Blood Pressure 133/60 141/74 140/68 O2 Sat by Pulse Oximetry O2 Sat by Pulse Oximetry [ Anterior Bilateral Throughout] O2 Sat by Pulse Oximetry [ Assessment] 09/18/17 11:00 Temperature Pulse Rate 76 Pulse Rate [ Anterior Bilateral Throughout] Pulse Rate [ Right Dorsalis Pedis] Respiratory Rate Respiratory Rate [Anterior Bilateral Throughout] Blood Pressure 143/74 O2 Sat by Pulse Oximetry O2 Sat by Pulse Oximetry [ Anterior Bilateral Throughout] O2 Sat by Pulse Oximetry [ Assessment] - General physical appearance Narrative Exam: Gen: Awake on vent and answers questions appropriately. NAD ENT: tracheostomy site c/d/i CV: S1, S2+ Resp: even and unlabored Abd: soft, NT, ND. G port to OSD with minimal bilious drainage. J port clamped. Incision c/d/i with arpan in place. Ext: generalized anasarca : barrientos - Labs 09/18/17 03:46 09/18/17 03:46 Diabetes panel 09/18/17 Range/Units 03:46 Sodium 138 (137-145) mmol/L Potassium 3.4 L (3.6-5.0) mmol/L Chloride 97.2 L (98-107) mmol/L Carbon Dioxide 25 (22-30) mmol/L BUN 73 H (9-20) mg/dL Creatinine 3.1 H (0.8-1.5) mg/dL Glucose 160 H (75-100) mg/dL Calcium 7.6 L (8.4-10.2) mg/dL AST 34 (5-40) units/L ALT 446 H (7-56) units/L Alkaline Phosphatase 136 H (35-129) units/L Total Protein 4.5 L (6.3-8.2) g/dL Albumin 1.9 L (3.9-5) g/dL Calcium panel 09/18/17 Range/Units 03:46 Calcium 7.6 L (8.4-10.2) mg/dL Phosphorus 4.60 H D (2.5-4.5) mg/dL Albumin 1.9 L (3.9-5) g/dL Pituitary panel 09/18/17 Range/Units 03:46 Sodium 138 (137-145) mmol/L Potassium 3.4 L (3.6-5.0) mmol/L Chloride 97.2 L (98-107) mmol/L Carbon Dioxide 25 (22-30) mmol/L BUN 73 H (9-20) mg/dL Creatinine 3.1 H (0.8-1.5) mg/dL Glucose 160 H (75-100) mg/dL Calcium 7.6 L (8.4-10.2) mg/dL Adrenal panel 09/18/17 Range/Units 03:46 Sodium 138 (137-145) mmol/L Potassium 3.4 L (3.6-5.0) mmol/L Chloride 97.2 L (98-107) mmol/L Carbon Dioxide 25 (22-30) mmol/L BUN 73 H (9-20) mg/dL Creatinine 3.1 H (0.8-1.5) mg/dL Glucose 160 H (75-100) mg/dL Calcium 7.6 L (8.4-10.2) mg/dL Total Bilirubin 1.10 (0.1-1.2) mg/dL AST 34 (5-40) units/L ALT 446 H (7-56) units/L Alkaline Phosphatase 136 H (35-129) units/L Total Protein 4.5 L (6.3-8.2) g/dL Albumin 1.9 L (3.9-5) g/dL
--- NOTE | 2017-09-18 12:07 | Progress Note ---
Assessment and Plan [id number] hypoxemic respiratory failure secondary likely to #2. Acute peritonitis, status post dislodged PEG tube. Severe sepsis. Oropharyngeal dysphagia. Acute kidney injury, possibly on chronic. Obesity. Tobacco use disorder. Alcohol abuse. Anemia that is microcytic and multifactorial. Metabolic acidosis. Hyperkalemia. Adult failure to thrive. - begin T-piece as tolerated - ABG at 9pm tonight - RTC t-piece as tolerated thereafter if ABG acceptable - continue supplemental oxygen and wean to keep sats > 90% - continue daily SAT's and SBT's - keep Peep at 6 cmH2O - resumed enteral nutrition at 10mls/hr and will advance per surgery recommendations - on TPN - continue to address VAP bundle daily - continue antibiotics and de-escalate shortly - wean vasopressors to keep MAP >/= 65 mmHg - HD/UF prescrition per nephrology team - continue SCD's - heparin held and HIT assay sent re: thrombocytopenia - continue agitation and analgesia management while avoiding benzodiazepines - Avoid nephrotoxic agents - case discussed at length in team rounds and care plan formulated - continue other care per attending / other consultants .... re-evaluate in am & prn The high probability of a clinically significant, sudden or life threatening deterioration of the [cardiac, Renal, Respiratory, neurological] system(s) required my full and direct attention, intervention and personal management. The aggregate critical care time was [35] minutes without overlap. Time includes spent on; [x] Data Review and interpretation [x] Patient assessment and monitoring of vital signs [x] Documentation [x] Medication orders and management Subjective Date of service: 09/18/17 Principal diagnosis: Septic shock. peritonitis, dislodged PEG tube, WILLIAM Interval history: Patient is seen today for: Acute Hypoxemic Respiratory Failure; Hemorrhagic Shock; WILLIAM on Dilaysis;PVD Seen and examined at bedside; 24 hour events reviewed; nursing and respiratory care staff consulted; resting peacefully in bed; remains on MVS; resting peacefully in bed; remains on MVS; full AC support; nods head no to pain question; No N/V/F/C; making some urine Objective Vital Signs - 12hr 09/18/17 09/18/17 09/18/17 00:15 00:24 00:27 Temperature 99.1 F Pulse Rate 92 H Pulse Rate [ 87 Anterior Bilateral Throughout] Pulse Rate [ Right Dorsalis Pedis] Respiratory 19 Rate Respiratory 17 Rate [Anterior Bilateral Throughout] Blood Pressure 130/67 O2 Sat by Pulse 98 Oximetry O2 Sat by Pulse Oximetry [ Anterior Bilateral Throughout] O2 Sat by Pulse 100 Oximetry [ Assessment] 09/18/17 09/18/17 09/18/17 00:30 00:45 00:53 Temperature 98.2 F Pulse Rate 97 H 91 H Pulse Rate [ Anterior Bilateral Throughout] Pulse Rate [ Right Dorsalis Pedis] Respiratory 18 17 Rate Respiratory Rate [Anterior Bilateral Throughout] Blood Pressure 139/76 132/68 O2 Sat by Pulse 98 98 Oximetry O2 Sat by Pulse Oximetry [ Anterior Bilateral Throughout] O2 Sat by Pulse Oximetry [ Assessment] 09/18/17 09/18/17 09/18/17 01:00 01:15 01:30 Temperature Pulse Rate 92 H 101 H 99 H Pulse Rate [ Anterior Bilateral Throughout] Pulse Rate [ Right Dorsalis Pedis] Respiratory 20 18 17 Rate Respiratory Rate [Anterior Bilateral Throughout] Blood Pressure 141/63 137/73 132/74 O2 Sat by Pulse 98 99 98 Oximetry O2 Sat by Pulse Oximetry [ Anterior Bilateral Throughout] O2 Sat by Pulse Oximetry [ Assessment] 09/18/17 09/18/17 09/18/17 01:45 02:00 02:15 Temperature Pulse Rate 98 H 96 H 101 H Pulse Rate [ Anterior Bilateral Throughout] Pulse Rate [ Right Dorsalis Pedis] Respiratory 19 19 18 Rate Respiratory Rate [Anterior Bilateral Throughout] Blood Pressure 141/70 145/65 138/69 O2 Sat by Pulse 99 98 99 Oximetry O2 Sat by Pulse Oximetry [ Anterior Bilateral Throughout] O2 Sat by Pulse Oximetry [ Assessment] 09/18/17 09/18/17 09/18/17 02:30 02:45 03:00 Temperature Pulse Rate 81 103 H 89 Pulse Rate [ Anterior Bilateral Throughout] Pulse Rate [ Right Dorsalis Pedis] Respiratory 17 18 18 Rate Respiratory Rate [Anterior Bilateral Throughout] Blood Pressure 130/68 129/75 133/73 O2 Sat by Pulse 98 98 97 Oximetry O2 Sat by Pulse Oximetry [ Anterior Bilateral Throughout] O2 Sat by Pulse Oximetry [ Assessment] 09/18/17 09/18/17 09/18/17 03:15 03:30 03:45 Temperature Pulse Rate 103 H 94 H 91 H Pulse Rate [ Anterior Bilateral Throughout] Pulse Rate [ Right Dorsalis Pedis] Respiratory 19 18 18 Rate Respiratory Rate [Anterior Bilateral Throughout] Blood Pressure 140/69 135/83 143/72 O2 Sat by Pulse 97 98 98 Oximetry O2 Sat by Pulse Oximetry [ Anterior Bilateral Throughout] O2 Sat by Pulse Oximetry [ Assessment] 09/18/17 09/18/17 09/18/17 04:00 04:15 04:30 Temperature 98.2 F Pulse Rate 90 85 98 H Pulse Rate [ Anterior Bilateral Throughout] Pulse Rate [ 90 Right Dorsalis Pedis] Respiratory 18 16 21 Rate Respiratory Rate [Anterior Bilateral Throughout] Blood Pressure 146/68 143/78 154/79 O2 Sat by Pulse 99 100 98 Oximetry O2 Sat by Pulse Oximetry [ Anterior Bilateral Throughout] O2 Sat by Pulse Oximetry [ Assessment] 09/18/17 09/18/17 09/18/17 04:45 05:00 05:15 Temperature Pulse Rate 80 92 H 91 H Pulse Rate [ Anterior Bilateral Throughout] Pulse Rate [ Right Dorsalis Pedis] Respiratory 18 17 18 Rate Respiratory Rate [Anterior Bilateral Throughout] Blood Pressure 152/70 151/71 153/75 O2 Sat by Pulse 98 98 99 Oximetry O2 Sat by Pulse Oximetry [ Anterior Bilateral Throughout] O2 Sat by Pulse Oximetry [ Assessment] 09/18/17 09/18/17 09/18/17 05:30 05:34 05:45 Temperature Pulse Rate 97 H 96 H 92 H Pulse Rate [ Anterior Bilateral Throughout] Pulse Rate [ Right Dorsalis Pedis] Respiratory 18 16 Rate Respiratory Rate [Anterior Bilateral Throughout] Blood Pressure 144/70 144/70 143/69 O2 Sat by Pulse 100 100 98 Oximetry O2 Sat by Pulse Oximetry [ Anterior Bilateral Throughout] O2 Sat by Pulse Oximetry [ Assessment] 09/18/17 09/18/17 09/18/17 06:00 06:15 06:30 Temperature Pulse Rate 89 93 H 87 Pulse Rate [ Anterior Bilateral Throughout] Pulse Rate [ Right Dorsalis Pedis] Respiratory 17 16 16 Rate Respiratory Rate [Anterior Bilateral Throughout] Blood Pressure 141/69 140/70 144/63 O2 Sat by Pulse 99 99 99 Oximetry O2 Sat by Pulse Oximetry [ Anterior Bilateral Throughout] O2 Sat by Pulse Oximetry [ Assessment] 09/18/17 09/18/17 09/18/17 06:45 07:00 07:15 Temperature Pulse Rate 97 H 87 94 H Pulse Rate [ Anterior Bilateral Throughout] Pulse Rate [ Right Dorsalis Pedis] Respiratory 17 19 17 Rate Respiratory Rate [Anterior Bilateral Throughout] Blood Pressure 145/72 152/74 132/66 O2 Sat by Pulse 99 99 99 Oximetry O2 Sat by Pulse Oximetry [ Anterior Bilateral Throughout] O2 Sat by Pulse Oximetry [ Assessment] 09/18/17 09/18/17 09/18/17 07:30 07:45 07:50 Temperature Pulse Rate 88 84 Pulse Rate [ 83 Anterior Bilateral Throughout] Pulse Rate [ Right Dorsalis Pedis] Respiratory 15 15 Rate Respiratory 20 Rate [Anterior Bilateral Throughout] Blood Pressure 149/69 152/68 O2 Sat by Pulse 98 99 Oximetry O2 Sat by Pulse Oximetry [ Anterior Bilateral Throughout] O2 Sat by Pulse Oximetry [ Assessment] 09/18/17 09/18/17 09/18/17 07:59 08:00 08:15 Temperature 97.3 F L Pulse Rate 83 86 87 Pulse Rate [ Anterior Bilateral Throughout] Pulse Rate [ 87 Right Dorsalis Pedis] Respiratory 18 16 Rate Respiratory Rate [Anterior Bilateral Throughout] Blood Pressure 152/68 152/68 152/69 O2 Sat by Pulse 99 99 99 Oximetry O2 Sat by Pulse Oximetry [ Anterior Bilateral Throughout] O2 Sat by Pulse Oximetry [ Assessment] 09/18/17 09/18/17 09/18/17 08:30 08:45 08:50 Temperature 97.8 F Pulse Rate 85 90 79 Pulse Rate [ Anterior Bilateral Throughout] Pulse Rate [ Right Dorsalis Pedis] Respiratory 14 16 Rate Respiratory Rate [Anterior Bilateral Throughout] Blood Pressure 142/64 140/68 146/67 O2 Sat by Pulse 98 98 Oximetry O2 Sat by Pulse 99 Oximetry [ Anterior Bilateral Throughout] O2 Sat by Pulse Oximetry [ Assessment] 09/18/17 09/18/17 09/18/17 09:00 09:15 09:30 Temperature Pulse Rate 79 83 84 Pulse Rate [ Anterior Bilateral Throughout] Pulse Rate [ Right Dorsalis Pedis] Respiratory 14 15 Rate Respiratory Rate [Anterior Bilateral Throughout] Blood Pressure 134/62 144/67 146/68 O2 Sat by Pulse 98 98 Oximetry O2 Sat by Pulse Oximetry [ Anterior Bilateral Throughout] O2 Sat by Pulse Oximetry [ Assessment] 09/18/17 09/18/17 09/18/17 09:45 10:00 10:15 Temperature Pulse Rate 82 78 88 Pulse Rate [ Anterior Bilateral Throughout] Pulse Rate [ Right Dorsalis Pedis] Respiratory Rate Respiratory Rate [Anterior Bilateral Throughout] Blood Pressure 141/61 144/72 133/60 O2 Sat by Pulse Oximetry O2 Sat by Pulse Oximetry [ Anterior Bilateral Throughout] O2 Sat by Pulse Oximetry [ Assessment] 09/18/17 09/18/17 09/18/17 10:30 10:45 11:00 Temperature Pulse Rate 89 90 76 Pulse Rate [ Anterior Bilateral Throughout] Pulse Rate [ Right Dorsalis Pedis] Respiratory Rate Respiratory Rate [Anterior Bilateral Throughout] Blood Pressure 141/74 140/68 143/74 O2 Sat by Pulse Oximetry O2 Sat by Pulse Oximetry [ Anterior Bilateral Throughout] O2 Sat by Pulse Oximetry [ Assessment] 09/18/17 09/18/17 09/18/17 11:15 11:30 11:45 Temperature Pulse Rate 90 79 83 Pulse Rate [ Anterior Bilateral Throughout] Pulse Rate [ Right Dorsalis Pedis] Respiratory Rate Respiratory Rate [Anterior Bilateral Throughout] Blood Pressure 149/74 152/75 159/73 O2 Sat by Pulse Oximetry O2 Sat by Pulse Oximetry [ Anterior Bilateral Throughout] O2 Sat by Pulse Oximetry [ Assessment] 09/18/17 11:50 Temperature Pulse Rate 92 H Pulse Rate [ Anterior Bilateral Throughout] Pulse Rate [ Right Dorsalis Pedis] Respiratory Rate Respiratory Rate [Anterior Bilateral Throughout] Blood Pressure 165/78 O2 Sat by Pulse Oximetry O2 Sat by Pulse Oximetry [ Anterior Bilateral Throughout] O2 Sat by Pulse Oximetry [ Assessment] Constitutional: alert, appears uncomfortable, other (elderly looking slightly obese CM; normocephalic) Eyes: non-icteric ENT: oropharynx moist, other (s/p tracheostomy) Neck: supple, no lymphadenopathy, other (no thyromegaly) Effort: mildly labored Ascultation: Bilateral: diminished breath sounds, rhonchi Percussion: Bilateral: dull (bases) Cardiovascular: regular rate and rhythm, other (no rubs or murmurs) Gastrointestinal: hypoactive bowel sounds, soft, non-tender, non-distended, other (midline wound vac) Integumentary: normal Extremities: no cyanosis, pink and warm, pulses normal, no ischemia or petechiae , edema Neurologic: non-focal exam (grossly), pupils equal and round, CN II-XII normal, motor strength normal and (weak), other (mild cognitive dysfunction / dementia element) Psychiatric: mood appropriate, affect normal CBC and BMP: 09/18/17 03:46 09/18/17 03:46 ABG, PT/INR, D-dimer: ABG POC ABG pH 7.383 (7.35-7.45) 09/18/17 05:54 POC ABG pCO2 39.5 (35-45) 09/18/17 05:54 POC ABG pO2 75 (80-105) L 09/18/17 05:54 POC ABG HCO3 23.5 09/18/17 05:54 POC ABG Total CO2 25 09/18/17 05:54 POC ABG O2 Sat 95 09/18/17 05:54 PT/INR, D-dimer PT 16.2 Sec. (12.2-14.9) H 09/18/17 03:46 INR 1.23 (0.87-1.13) H 09/18/17 03:46 Abnormal lab findings: Abnormal Labs 09/12/17 09/13/17 09/13/17 22:56 03:08 05:20 WBC RBC 3.60 L Hgb 11.5 L Hct 34.4 L MCV 95 H MCHC RDW 19.8 H Plt Count 83 L Seg Neuts % (Manual) Lymphocytes % (Manual) 11.0 L Nucleated RBC % Seg Neutrophils # Man Lymphocytes # (Manual) 0.7 L PT INR APTT POC ABG pH 7.280 L POC ABG pCO2 46.4 H POC ABG pO2 110 H Sodium Potassium Chloride Carbon Dioxide BUN Creatinine Glucose POC Glucose 135 H Lactic Acid Calcium Phosphorus Total Bilirubin AST ALT Alkaline Phosphatase C-Reactive Protein Total Protein Albumin Prealbumin Urine WBC (Auto) Urine Creatinine Urine Total Protein Crossmatch 09/13/17 09/13/17 09/13/17 05:20 14:47 14:47 WBC RBC Hgb Hct MCV MCHC RDW Plt Count Seg Neuts % (Manual) Lymphocytes % (Manual) Nucleated RBC % Seg Neutrophils # Man Lymphocytes # (Manual) PT INR APTT POC ABG pH POC ABG pCO2 POC ABG pO2 Sodium Potassium 5.2 H Chloride 109.6 H Carbon Dioxide 20 L BUN 54 H Creatinine 2.3 H Glucose POC Glucose Lactic Acid Calcium 7.8 L Phosphorus 6.20 H Total Bilirubin AST ALT Alkaline Phosphatase C-Reactive Protein Total Protein Albumin Prealbumin 0.050 L Urine WBC (Auto) 30.0 H Urine Creatinine 180.6 H Urine Total Protein 289 H Crossmatch 09/13/17 09/13/17 09/13/17 14:54 14:54 17:04 WBC RBC Hgb Hct MCV MCHC RDW Plt Count Seg Neuts % (Manual) Lymphocytes % (Manual) Nucleated RBC % Seg Neutrophils # Man Lymphocytes # (Manual) PT INR APTT POC ABG pH POC ABG pCO2 POC ABG pO2 Sodium Potassium Chloride Carbon Dioxide BUN Creatinine Glucose POC Glucose 114 H Lactic Acid 2.20 H* Calcium Phosphorus Total Bilirubin AST ALT Alkaline Phosphatase C-Reactive Protein 33.10 H Total Protein Albumin Prealbumin Urine WBC (Auto) Urine Creatinine Urine Total Protein Crossmatch 09/13/17 09/13/17 09/14/17 19:40 23:49 04:07 WBC RBC Hgb Hct MCV MCHC RDW Plt Count Seg Neuts % (Manual) Lymphocytes % (Manual) Nucleated RBC % Seg Neutrophils # Man Lymphocytes # (Manual) PT INR APTT POC ABG pH 7.332 L POC ABG pCO2 34.3 L POC ABG pO2 76 L Sodium Potassium Chloride Carbon Dioxide BUN Creatinine Glucose POC Glucose 115 H Lactic Acid 2.20 H* Calcium Phosphorus Total Bilirubin AST ALT Alkaline Phosphatase C-Reactive Protein Total Protein Albumin Prealbumin Urine WBC (Auto) Urine Creatinine Urine Total Protein Crossmatch 09/14/17 09/14/17 09/14/17 05:15 05:15 05:35 WBC RBC Hgb Hct MCV MCHC RDW Plt Count Seg Neuts % (Manual) Lymphocytes % (Manual) Nucleated RBC % Seg Neutrophils # Man Lymphocytes # (Manual) PT INR APTT POC ABG pH POC ABG pCO2 POC ABG pO2 Sodium Potassium Chloride 107.5 H Carbon Dioxide 18 L BUN 77 H Creatinine 3.0 H Glucose 185 H POC Glucose 196 H Lactic Acid Calcium 7.3 L Phosphorus 7.80 H D Total Bilirubin 2.50 H AST 991 H ALT 1757 H Alkaline Phosphatase C-Reactive Protein Total Protein 4.1 L Albumin 1.8 L Prealbumin Urine WBC (Auto) Urine Creatinine Urine Total Protein Crossmatch 09/14/17 09/14/17 09/14/17 12:17 18:08 23:55 WBC RBC Hgb Hct MCV MCHC RDW Plt Count Seg Neuts % (Manual) Lymphocytes % (Manual) Nucleated RBC % Seg Neutrophils # Man Lymphocytes # (Manual) PT INR APTT POC ABG pH POC ABG pCO2 POC ABG pO2 Sodium Potassium Chloride Carbon Dioxide BUN Creatinine Glucose POC Glucose 212 H 242 H 231 H Lactic Acid Calcium Phosphorus Total Bilirubin AST ALT Alkaline Phosphatase C-Reactive Protein Total Protein Albumin Prealbumin Urine WBC (Auto) Urine Creatinine Urine Total Protein Crossmatch 09/15/17 09/15/17 09/15/17 04:12 05:50 06:00 WBC RBC 2.62 L Hgb 8.3 L D Hct 25.8 L D MCV 98 H MCHC RDW 20.1 H Plt Count 50 L Seg Neuts % (Manual) 82.0 H Lymphocytes % (Manual) 6.0 L Nucleated RBC % Seg Neutrophils # Man Lymphocytes # (Manual) 0.5 L PT INR APTT POC ABG pH 7.252 L POC ABG pCO2 POC ABG pO2 Sodium Potassium Chloride Carbon Dioxide BUN Creatinine Glucose POC Glucose 240 H Lactic Acid Calcium Phosphorus Total Bilirubin AST ALT Alkaline Phosphatase C-Reactive Protein Total Protein Albumin Prealbumin Urine WBC (Auto) Urine Creatinine Urine Total Protein Crossmatch 09/15/17 09/15/17 09/15/17 06:00 11:17 15:11 WBC RBC Hgb Hct MCV MCHC RDW Plt Count Seg Neuts % (Manual) Lymphocytes % (Manual) Nucleated RBC % Seg Neutrophils # Man Lymphocytes # (Manual) PT INR APTT POC ABG pH POC ABG pCO2 POC ABG pO2 Sodium 136 L Potassium Chloride Carbon Dioxide 17 L BUN 98 H Creatinine 3.9 H Glucose 207 H POC Glucose 215 H 238 H Lactic Acid Calcium 7.4 L Phosphorus 7.80 H Total Bilirubin 1.50 H AST 357 H ALT 1308 H Alkaline Phosphatase C-Reactive Protein Total Protein 4.2 L Albumin 1.7 L Prealbumin Urine WBC (Auto) Urine Creatinine Urine Total Protein Crossmatch 09/15/17 09/15/17 09/15/17 17:52 17:52 17:52 WBC 11.4 H RBC 2.91 L Hgb 8.8 L Hct 29.0 L MCV 100 H MCHC 31 L RDW 20.6 H Plt Count 46 L Seg Neuts % (Manual) Lymphocytes % (Manual) Nucleated RBC % Seg Neutrophils # Man Lymphocytes # (Manual) PT 16.5 H INR 1.26 H APTT 38.7 H POC ABG pH POC ABG pCO2 POC ABG pO2 Sodium 136 L Potassium Chloride Carbon Dioxide 16 L BUN 100 H Creatinine 3.8 H Glucose 220 H POC Glucose Lactic Acid Calcium 7.3 L Phosphorus Total Bilirubin 1.50 H AST 263 H ALT 1236 H Alkaline Phosphatase C-Reactive Protein Total Protein 4.3 L Albumin 2.0 L Prealbumin Urine WBC (Auto) Urine Creatinine Urine Total Protein Crossmatch 09/15/17 09/15/17 09/16/17 18:12 23:34 05:22 WBC RBC Hgb Hct MCV MCHC RDW Plt Count Seg Neuts % (Manual) Lymphocytes % (Manual) Nucleated RBC % Seg Neutrophils # Man Lymphocytes # (Manual) PT INR APTT POC ABG pH POC ABG pCO2 POC ABG pO2 Sodium Potassium Chloride Carbon Dioxide BUN Creatinine Glucose POC Glucose 276 H 275 H 306 H Lactic Acid Calcium Phosphorus Total Bilirubin AST ALT Alkaline Phosphatase C-Reactive Protein Total Protein Albumin Prealbumin Urine WBC (Auto) Urine Creatinine Urine Total Protein Crossmatch 09/16/17 09/16/17 09/16/17 06:15 06:15 12:10 WBC RBC 2.75 L Hgb 8.8 L Hct 27.1 L MCV 99 H MCHC RDW 20.2 H Plt Count 42 L Seg Neuts % (Manual) 93.0 H Lymphocytes % (Manual) 3.0 L Nucleated RBC % Seg Neutrophils # Man 8.5 H Lymphocytes # (Manual) 0.3 L PT INR APTT POC ABG pH POC ABG pCO2 POC ABG pO2 Sodium 136 L Potassium Chloride Carbon Dioxide 15 L BUN 110 H Creatinine 4.1 H Glucose 265 H POC Glucose 277 H Lactic Acid Calcium 7.6 L Phosphorus 9.00 H Total Bilirubin 1.30 H AST 227 H ALT 966 H Alkaline Phosphatase C-Reactive Protein Total Protein 4.3 L Albumin 1.8 L Prealbumin Urine WBC (Auto) Urine Creatinine Urine Total Protein Crossmatch 09/16/17 09/16/17 09/16/17 13:07 17:33 23:42 WBC RBC Hgb Hct MCV MCHC RDW Plt Count Seg Neuts % (Manual) Lymphocytes % (Manual) Nucleated RBC % Seg Neutrophils # Man Lymphocytes # (Manual) PT INR APTT POC ABG pH 7.175 L POC ABG pCO2 POC ABG pO2 71 L Sodium Potassium Chloride Carbon Dioxide BUN Creatinine Glucose POC Glucose 289 H 262 H Lactic Acid Calcium Phosphorus Total Bilirubin AST ALT Alkaline Phosphatase C-Reactive Protein Total Protein Albumin Prealbumin Urine WBC (Auto) Urine Creatinine Urine Total Protein Crossmatch 09/17/17 09/17/17 09/17/17 05:30 05:30 05:39 WBC RBC 2.39 L Hgb 7.4 L Hct 23.0 L MCV 96 H MCHC RDW 19.6 H Plt Count 24 L Seg Neuts % (Manual) 76.0 H Lymphocytes % (Manual) 5.0 L Nucleated RBC % Seg Neutrophils # Man Lymphocytes # (Manual) 0.4 L PT INR APTT POC ABG pH POC ABG pCO2 POC ABG pO2 Sodium Potassium Chloride Carbon Dioxide BUN 93 H Creatinine 3.6 H Glucose 201 H POC Glucose 218 H Lactic Acid Calcium 7.5 L Phosphorus 6.10 H D Total Bilirubin AST 62 H ALT 619 H Alkaline Phosphatase C-Reactive Protein Total Protein 4.1 L Albumin 1.7 L Prealbumin Urine WBC (Auto) Urine Creatinine Urine Total Protein Crossmatch 09/17/17 09/17/17 09/17/17 10:45 11:31 17:46 WBC RBC Hgb Hct MCV MCHC RDW Plt Count Seg Neuts % (Manual) Lymphocytes % (Manual) Nucleated RBC % Seg Neutrophils # Man Lymphocytes # (Manual) PT INR APTT POC ABG pH POC ABG pCO2 POC ABG pO2 Sodium Potassium Chloride Carbon Dioxide BUN Creatinine Glucose POC Glucose 221 H 209 H Lactic Acid Calcium Phosphorus Total Bilirubin AST ALT Alkaline Phosphatase C-Reactive Protein Total Protein Albumin Prealbumin Urine WBC (Auto) Urine Creatinine Urine Total Protein Crossmatch See Detail 09/18/17 09/18/17 09/18/17 00:05 03:46 03:46 WBC RBC 3.05 L Hgb 9.5 L Hct 28.2 L MCV MCHC RDW 19.0 H Plt Count 29 L Seg Neuts % (Manual) 81.0 H Lymphocytes % (Manual) 7.0 L Nucleated RBC % 3.0 H Seg Neutrophils # Man Lymphocytes # (Manual) 0.6 L PT 16.2 H INR 1.23 H APTT POC ABG pH POC ABG pCO2 POC ABG pO2 Sodium Potassium Chloride Carbon Dioxide BUN Creatinine Glucose POC Glucose 168 H Lactic Acid Calcium Phosphorus Total Bilirubin AST ALT Alkaline Phosphatase C-Reactive Protein Total Protein Albumin Prealbumin Urine WBC (Auto) Urine Creatinine Urine Total Protein Crossmatch 09/18/17 09/18/17 09/18/17 03:46 04:59 05:54 WBC RBC Hgb Hct MCV MCHC RDW Plt Count Seg Neuts % (Manual) Lymphocytes % (Manual) Nucleated RBC % Seg Neutrophils # Man Lymphocytes # (Manual) PT INR APTT POC ABG pH POC ABG pCO2 POC ABG pO2 75 L Sodium Potassium 3.4 L Chloride 97.2 L Carbon Dioxide BUN 73 H Creatinine 3.1 H Glucose 160 H POC Glucose 202 H Lactic Acid Calcium 7.6 L Phosphorus 4.60 H D Total Bilirubin AST ALT 446 H Alkaline Phosphatase 136 H C-Reactive Protein Total Protein 4.5 L Albumin 1.9 L Prealbumin Urine WBC (Auto) Urine Creatinine Urine Total Protein Crossmatch 09/18/17 10:52 WBC RBC Hgb Hct MCV MCHC RDW Plt Count Seg Neuts % (Manual) Lymphocytes % (Manual) Nucleated RBC % Seg Neutrophils # Man Lymphocytes # (Manual) PT INR APTT POC ABG pH POC ABG pCO2 POC ABG pO2 Sodium Potassium Chloride Carbon Dioxide BUN Creatinine Glucose POC Glucose 179 H Lactic Acid Calcium Phosphorus Total Bilirubin AST ALT Alkaline Phosphatase C-Reactive Protein Total Protein Albumin Prealbumin Urine WBC (Auto) Urine Creatinine Urine Total Protein Crossmatch Chest x-ray: report reviewed (unable to pull image up) Allied health notes reviewed: PT (Holding off on PT evaluation until after HD)
--- NOTE | 2017-09-18 12:23 | Progress Note ---
Assessment and Plan Since enteral intake has been resumed, we will switch IV to PGT Amiodarone. Initiate beta rohini therapy as well. With improved BP, may reduce Amiodarone dose eventually. - Patient Problems (1) Atrial fibrillation with RVR Current Visit: Yes Status: Acute (2) Acute respiratory failure with hypoxia Current Visit: Yes Status: Acute (3) Severe sepsis with septic shock Current Visit: Yes Status: Acute (4) Cardiomyopathy Current Visit: Yes Status: Acute (5) Acute renal failure Current Visit: Yes Status: Acute Qualifiers: Acute renal failure type: with acute tubular necrosis Qualified Code(s): N17.0 - Acute kidney failure with tubular necrosis (6) Peritonitis Current Visit: Yes Status: Acute (7) Pneumoperitoneum Current Visit: Yes Status: Acute (8) PAD (peripheral artery disease) Current Visit: Yes Status: Chronic Subjective Principal diagnosis: Afib with RVR, Acute HFrEF, Septic shock, Acute resp failure, WILLIAM, Peritoni Interval history: Awake. In Afib with CVR. Objective Vital Signs Temp Pulse Pulse Pulse Resp Resp BP 09/18/17 11:50 92 H 165/78 09/18/17 11:45 83 159/73 09/18/17 11:30 79 152/75 09/18/17 11:15 90 149/74 09/18/17 11:00 76 143/74 09/18/17 10:45 90 140/68 09/18/17 10:30 89 141/74 09/18/17 10:15 88 133/60 09/18/17 10:00 78 144/72 09/18/17 09:45 82 141/61 09/18/17 09:30 84 146/68 09/18/17 09:15 83 15 144/67 09/18/17 09:00 79 14 134/62 09/18/17 08:50 79 146/67 09/18/17 08:45 97.8 F 90 16 140/68 09/18/17 08:30 85 14 142/64 09/18/17 08:15 87 16 152/69 09/18/17 08:00 97.3 F L 86 87 18 152/68 09/18/17 07:59 83 152/68 09/18/17 07:50 83 20 09/18/17 07:45 84 15 152/68 05/25/18 07:30 88 15 149/69 05/25/18 07:15 94 H 17 132/66 05/25/18 07:00 87 19 152/74 05/25/18 06:45 97 H 17 145/72 05/25/18 06:30 87 16 144/63 05/25/18 06:15 93 H 16 140/70 05/25/18 06:00 89 17 141/69 05/25/18 05:45 92 H 16 143/69 05/25/18 05:34 96 H 144/70 05/25/18 05:30 97 H 18 144/70 05/25/18 05:15 91 H 18 153/75 05/25/18 05:00 92 H 17 151/71 05/25/18 04:45 80 18 152/70 05/25/18 04:30 98 H 21 154/79 05/25/18 04:15 85 16 143/78 05/25/18 04:00 98.2 F 90 90 18 146/68 05/25/18 03:45 91 H 18 143/72 05/25/18 03:30 94 H 18 135/83 05/25/18 03:15 103 H 19 140/69 05/25/18 03:00 89 18 133/73 05/25/18 02:45 103 H 18 129/75 05/25/18 02:30 81 17 130/68 05/25/18 02:15 101 H 18 138/69 05/25/18 02:00 96 H 19 145/65 05/25/18 01:45 98 H 19 141/70 05/25/18 01:30 99 H 17 132/74 05/25/18 01:15 101 H 18 137/73 05/25/18 01:00 92 H 20 141/63 05/25/18 00:53 98.2 F 05/25/18 00:45 91 H 17 132/68 05/25/18 00:30 97 H 18 139/76 05/25/18 00:27 99.1 F 87 17 05/25/18 00:24 05/25/18 00:15 92 H 19 130/67 05/25/18 00:02 93 H 146/76 05/25/18 00:00 94 H 81 19 145/66 05/24/18 23:45 102 H 18 146/76 05/24/18 23:30 89 18 137/65 05/24/18 23:15 89 22 141/70 05/24/18 23:00 98.2 F 96 H 19 146/67 05/24/18 22:45 100 H 15 145/72 05/24/18 22:30 99 H 15 138/66 05/24/18 22:15 102 H 17 130/70 05/24/18 22:00 102 H 23 138/68 05/24/18 21:56 98.2 F 05/24/18 21:53 87 136/69 05/24/18 21:52 96 H 18 136/69 05/24/18 21:50 91 H 18 136/69 05/24/18 21:40 96 H 13 143/62 05/24/18 21:30 93 H 16 143/62 05/24/18 21:29 98.2 F 91 H 22 141/72 05/24/18 21:20 96 H 16 141/72 05/24/18 21:14 97.4 F L 89 22 131/71 05/24/18 21:10 101 H 17 131/71 05/24/18 21:00 92 H 16 133/62 05/24/18 20:56 98.1 F 05/24/18 20:50 91 H 16 126/69 05/24/18 20:40 93 H 18 126/69 05/24/18 20:30 97.4 F L 86 16 126/69 05/24/18 20:16 89 14 126/69 05/24/18 20:00 96 H 80 14 126/69 05/24/18 19:46 98 H 15 104/59 05/24/18 19:30 98 H 19 104/59 05/24/18 19:19 05/24/18 19:16 92 H 16 104/59 05/24/18 19:00 107 H 19 112/58 05/24/18 18:46 89 13 112/58 05/24/18 18:30 91 H 15 112/58 05/24/18 18:16 86 18 112/58 05/24/18 18:00 85 16 112/58 05/24/18 17:46 84 18 116/53 05/24/18 17:30 91 H 17 116/53 05/24/18 17:16 86 20 116/53 09/17/17 17:00 89 20 116/53 09/17/17 16:46 92 H 20 104/59 09/17/17 16:30 84 14 104/59 09/17/17 16:16 94 H 16 104/59 18 16:15 09/17/17 16:10 90 93 H 16 18 104/59 09/17/17 16:00 104 H 90 15 19 104/59 09/17/17 15:45 85 14 116/54 09/17/17 15:33 98.3 F 09/17/17 15:30 88 15 121/61 09/17/17 15:15 80 13 121/52 09/17/17 15:00 85 14 117/72 09/17/17 14:45 84 13 124/70 09/17/17 14:30 108 H 20 125/70 09/17/17 14:15 81 14 128/56 09/17/17 14:00 88 14 119/63 09/17/17 13:46 98.9 F 81 18 109/52 09/17/17 13:45 97 H 15 123/57 09/17/17 13:33 96 H 17 09/17/17 13:30 98 H 14 104/50 09/17/17 13:26 109 H 17 09/17/17 13:15 111 H 104/50 09/17/17 13:00 103 H 123/58 09/17/17 12:45 83 110/54 09/17/17 12:30 91 H 110/50 Last Vital Signs Temp 97.8 F 09/18/17 08:45 Pulse 92 H 09/18/17 11:50 Resp 15 09/18/17 09:15 BP 165/78 09/18/17 11:50 Pulse Ox 98 09/18/17 09:15 - Physical Examination General: No Apparent Distress, Other (intubated) HEENT: Positive: EOMI, Normocephaly, Mucus Membranes Moist Neck: Positive: neck supple, trachea midline Cardiac: Positive: irregularly irregular, S1/S2 Lungs: Positive: Rhonchi Neuro: Positive: Grossly Intact Abdomen: Positive: Soft, Active Bowel Sounds. Negative: Tender Skin: Positive: Clear. Negative: Rash Musculoskeletal: Normal Range of Motion Extremities: Present: +1 Edema - Labs and Meds Cardiac Enzymes 09/18/17 Range/Units 03:46 AST 34 (5-40) units/L Coagulation 09/18/17 Range/Units 03:46 PT 16.2 H (12.2-14.9) Sec. INR 1.23 H (0.87-1.13) CBC 09/18/17 Range/Units 03:46 WBC 8.4 (4.5-11.0) K/mm3 RBC 3.05 L (3.65-5.03) M/mm3 Hgb 9.5 L (11.8-15.2) gm/dl Hct 28.2 L (35.5-45.6) % Plt Count 29 L (140-440) K/mm3 Comprehensive Metabolic Panel 09/18/17 Range/Units 03:46 Sodium 138 (137-145) mmol/L Potassium 3.4 L (3.6-5.0) mmol/L Chloride 97.2 L (98-107) mmol/L Carbon Dioxide 25 (22-30) mmol/L BUN 73 H (9-20) mg/dL Creatinine 3.1 H (0.8-1.5) mg/dL Glucose 160 H (75-100) mg/dL Calcium 7.6 L (8.4-10.2) mg/dL AST 34 (5-40) units/L ALT 446 H (7-56) units/L Alkaline Phosphatase 136 H (35-129) units/L Total Protein 4.5 L (6.3-8.2) g/dL Albumin 1.9 L (3.9-5) g/dL - Telemetry EKG Rhythm: Atrial Fibrillation - Allied health notes Allied health notes reviewed: PT (Holding off on PT evaluation until after HD)
[2017-09-18] MEDS: PROTONIX IV SCH (12:42)
[2017-09-18] MEDS: MAXIPIME 2 GM in NACL 0.9% 20 ML IV SCH (12:42)
[2017-09-18] MEDS: SODIUM CHLORIDE FLUSH SYRINGE 10 ML IV SCH ×2 (12:59→13:25)
--- NOTE | 2017-09-18 13:08 | Progress Note ---
Assessment and Plan Assessment: 1) Septic shock: back on pressors - levophed at 6; etiology - acute peritonitis +/- UTI 2) Acute peritonitis: from gastric content spill from dislodge PEG -CT showed pneumoperitoneum and PEG tube bumper outside of stomach. -S/P Exploratory laparotomy, repair of gastrotomy, removal of PEG tube, peritoneal lavage, temporary closure of abdomen with Abthera Vac on 09/13/17 3) WILLIAM 4) Acute encephalopathy 5) CA-UTI 6) History of Recent presumed VAP: Treated with cefepime/vano x 10 days. 7) History of Recent Acute respiratory failure: for airway protection - s/p trach 8) History of Right lower extremity chronic ischemia with short distance claudication: -S/P elective right common femoral endarterectomy with patch angioplasty, bilateral common iliac and right external artery stenting on 08/11/17 9) History of Ruptured pseudoaneurysm left groin/external iliac: -CTA showed retroperitoneal hemorrhage and bladder thickening. -S/P deployment of new Viabond stent graft across the inguinal ligament into the common femoral artery on 08/13/17. 10) RAYON CONER in blood cultures ? Plan: -f/u repeat blood cx -continue cefepime and- D3 -continue flagyl and fluconazole D6 -stop vanco I will be back on Thursday Guarded prognosis Thank you for your consultation, will follow up with you. Tasia Baldwin MD Infectious Diseases Specialist [facility] [id number] [phone] [id number] [phone] Subjective Date of service: 09/18/17 Principal diagnosis: Afib with RVR, Acute HFrEF, Septic shock, Acute resp failure, WILLIAM, Peritoni Interval history: Remains on the vent via trach A/C 40% p 6, alert, no fever or pressors this am. On amiodarone gtt. On TPN. Microbiology: Blood cultures: 09/01 neg 09/14 RAYON CONER 1 of 4 bottles Urine cultures: Respiratory cultures: 09/01 usual resp rudy Antibiotics: cefepime 09/16 vanco 09/16 metronidazole 09/12 fluconazole 09/12 Antibiotics: levaquin 09/12 Objective - Exam Narrative Exam: General appearance: sedated in NAD Eyes: anicteric sclerae, moist conjunctivae; no lid-lag; PERRLA HENT: Atraumatic; oropharynx limited Lungs: CTA, with normal respiratory effort and no intercostal retractions CV: RRR, no murmurs Abdomen: Soft, midline wound with wound VAC Extremities: No peripheral edema or extremity lymphadenopathy Skin: Normal temperature, turgor and texture; no rash, ulcers or subcutaneous nodules Psych: sedated Neuro: sedated Lines: barrientos, right PICC - Constitutional Vitals: Vital Signs Temp Pulse Resp BP Pulse Ox 99.3 F 81 16 159/65 99 09/18/17 12:00 09/18/17 12:00 09/18/17 12:00 09/18/17 12:00 09/18/17 12:00 Temperature -Last 24 Hours Temperature 99.3 F Temperature 97.8 F Temperature 97.3 F Temperature 98.2 F Temperature 98.2 F Temperature 99.1 F Temperature 98.2 F Temperature 98.2 F Temperature 98.2 F Temperature 97.4 F Temperature 98.1 F Temperature 97.4 F Temperature 98.3 F Temperature 98.9 F - Labs CBC & Chem 7: 09/18/17 03:46 09/18/17 03:46 Labs: Abnormal lab results 09/17/17 09/17/17 09/18/17 Range/Units 10:45 17:46 00:05 RBC (3.65-5.03) M/mm3 Hgb (11.8-15.2) gm/dl Hct (35.5-45.6) % RDW (13.2-15.2) % Plt Count (140-440) K/mm3 Seg Neuts % (Manual) (40.0-70.0) % Lymphocytes % (Manual) (13.4-35.0) % Nucleated RBC % (0.0-0.9) % Lymphocytes # (Manual) (1.2-5.4) K/mm3 PT (12.2-14.9) Sec. INR (0.87-1.13) POC ABG pO2 (80-105) Potassium (3.6-5.0) mmol/L Chloride (98-107) mmol/L BUN (9-20) mg/dL Creatinine (0.8-1.5) mg/dL Glucose (75-100) mg/dL POC Glucose 209 H 168 H (70-105) Calcium (8.4-10.2) mg/dL Phosphorus (2.5-4.5) mg/dL ALT (7-56) units/L Alkaline Phosphatase (35-129) units/L Total Protein (6.3-8.2) g/dL Albumin (3.9-5) g/dL Crossmatch See Detail 09/18/17 09/18/17 09/18/17 Range/Units 03:46 03:46 03:46 RBC 3.05 L (3.65-5.03) M/mm3 Hgb 9.5 L (11.8-15.2) gm/dl Hct 28.2 L (35.5-45.6) % RDW 19.0 H (13.2-15.2) % Plt Count 29 L (140-440) K/mm3 Seg Neuts % (Manual) 81.0 H (40.0-70.0) % Lymphocytes % (Manual) 7.0 L (13.4-35.0) % Nucleated RBC % 3.0 H (0.0-0.9) % Lymphocytes # (Manual) 0.6 L (1.2-5.4) K/mm3 PT 16.2 H (12.2-14.9) Sec. INR 1.23 H (0.87-1.13) POC ABG pO2 (80-105) Potassium 3.4 L (3.6-5.0) mmol/L Chloride 97.2 L (98-107) mmol/L BUN 73 H (9-20) mg/dL Creatinine 3.1 H (0.8-1.5) mg/dL Glucose 160 H (75-100) mg/dL POC Glucose (70-105) Calcium 7.6 L (8.4-10.2) mg/dL Phosphorus 4.60 H D (2.5-4.5) mg/dL ALT 446 H (7-56) units/L Alkaline Phosphatase 136 H (35-129) units/L Total Protein 4.5 L (6.3-8.2) g/dL Albumin 1.9 L (3.9-5) g/dL Crossmatch 09/18/17 09/18/17 09/18/17 Range/Units 04:59 05:54 10:52 RBC (3.65-5.03) M/mm3 Hgb (11.8-15.2) gm/dl Hct (35.5-45.6) % RDW (13.2-15.2) % Plt Count (140-440) K/mm3 Seg Neuts % (Manual) (40.0-70.0) % Lymphocytes % (Manual) (13.4-35.0) % Nucleated RBC % (0.0-0.9) % Lymphocytes # (Manual) (1.2-5.4) K/mm3 PT (12.2-14.9) Sec. INR (0.87-1.13) POC ABG pO2 75 L (80-105) Potassium (3.6-5.0) mmol/L Chloride (98-107) mmol/L BUN (9-20) mg/dL Creatinine (0.8-1.5) mg/dL Glucose (75-100) mg/dL POC Glucose 202 H 179 H (70-105) Calcium (8.4-10.2) mg/dL Phosphorus (2.5-4.5) mg/dL ALT (7-56) units/L Alkaline Phosphatase (35-129) units/L Total Protein (6.3-8.2) g/dL Albumin (3.9-5) g/dL Crossmatch
[2017-09-18] MEDS: HEPARIN SUB-Q SCH (14:06)
--- NOTE | 2017-09-18 15:47 | Progress Note ---
Assessment and Plan - Patient Problems (1) Acute renal failure due to tubular necrosis Current Visit: No Status: Acute Plan to address problem: Oliguric Acute tubular necrosis secondary to hypotension/sepsis. Kidney function was worsening. Follow-up electrolytes and renal function. Tolerated dialysis today. Hemodialysis again tomorrow (2) Severe sepsis with septic shock Current Visit: Yes Status: Acute Plan to address problem: Continue antibiotics appropriately dosed to renal function. Remained stable off of vasopressors. Follow up Cultures (3) Hyperkalemia Current Visit: Yes Status: Acute Plan to address problem: Potassium has improved. Continue to follow up (4) Acute respiratory failure with hypoxia Current Visit: Yes Status: Acute Plan to address problem: Patient is off of ventilator. Being managed by pulmonary (5) Peritonitis Current Visit: Yes Status: Acute Plan to address problem: S/p Exploratory laparotomy, peritoneal lavage, cholecystectomy, placement of gastrojejunal feeding tube, closure of abdomen. Continue antibiotics Subjective Date of service: 09/18/17 Principal diagnosis: Afib with RVR, Acute HFrEF, Septic shock, Acute resp failure, WILLIAM, Peritoni Interval history: Patient seen lying in bed in ICU. Tracheostomy intact on T piece. Patient mouthing words. On amiodarone drip and TPN Objective - Exam Narrative Exam: Middle-aged female lying in bed in no acute distress HEENT: NCAT, pink clear oropharynx Neck: Supple, no venous distention, trach intact on T-piece CVS: S1S2 RRR with no murmur, rub or gallop Chest: Diminished breath sounds bilaterally Abdomen: Distended, soft, tender, bowel sounds diminished, dressings intact, edema trunk Extremities: 2+ Pitting edema, heel protectors intact, Skin: warm and dry Genitourinary deferred, [place] catheter draining clear urine Neuro: Awake, alert, communicating nonverbally - Vital Signs Vital signs: Vital Signs - 12hr 09/18/17 09/18/17 09/18/17 03:45 04:00 04:15 Temperature 98.2 F Pulse Rate 91 H 90 85 Pulse Rate [ Anterior Bilateral Throughout] Pulse Rate [ 90 Right Dorsalis Pedis] Respiratory 18 18 16 Rate Respiratory Rate [Anterior Bilateral Throughout] Blood Pressure 143/72 146/68 143/78 O2 Sat by Pulse 98 99 100 Oximetry O2 Sat by Pulse Oximetry [ Anterior Bilateral Throughout] 09/18/17 09/18/1718 04:30 04:45 05:00 Temperature Pulse Rate 98 H 80 92 H Pulse Rate [ Anterior Bilateral Throughout] Pulse Rate [ Right Dorsalis Pedis] Respiratory 21 18 17 Rate Respiratory Rate [Anterior Bilateral Throughout] Blood Pressure 154/79 152/70 151/71 O2 Sat by Pulse 98 98 98 Oximetry O2 Sat by Pulse Oximetry [ Anterior Bilateral Throughout] 09/18/17 09/18/17 09/18/17 05:15 05:30 05:34 Temperature Pulse Rate 91 H 97 H 96 H Pulse Rate [ Anterior Bilateral Throughout] Pulse Rate [ Right Dorsalis Pedis] Respiratory 18 18 Rate Respiratory Rate [Anterior Bilateral Throughout] Blood Pressure 153/75 144/70 144/70 O2 Sat by Pulse 99 100 100 Oximetry O2 Sat by Pulse Oximetry [ Anterior Bilateral Throughout] 09/18/17 09/18/17 09/18/17 05:45 06:00 06:15 Temperature Pulse Rate 92 H 89 93 H Pulse Rate [ Anterior Bilateral Throughout] Pulse Rate [ Right Dorsalis Pedis] Respiratory 16 17 16 Rate Respiratory Rate [Anterior Bilateral Throughout] Blood Pressure 143/69 141/69 140/70 O2 Sat by Pulse 98 99 99 Oximetry O2 Sat by Pulse Oximetry [ Anterior Bilateral Throughout] 09/18/17 09/18/17 09/18/17 06:30 06:45 07:00 Temperature Pulse Rate 87 97 H 87 Pulse Rate [ Anterior Bilateral Throughout] Pulse Rate [ Right Dorsalis Pedis] Respiratory 16 17 19 Rate Respiratory Rate [Anterior Bilateral Throughout] Blood Pressure 144/63 145/72 152/74 O2 Sat by Pulse 99 99 99 Oximetry O2 Sat by Pulse Oximetry [ Anterior Bilateral Throughout] 09/18/17 09/18/17 09/18/17 07:15 07:30 07:45 Temperature Pulse Rate 94 H 88 84 Pulse Rate [ Anterior Bilateral Throughout] Pulse Rate [ Right Dorsalis Pedis] Respiratory 17 15 15 Rate Respiratory Rate [Anterior Bilateral Throughout] Blood Pressure 132/66 149/69 152/68 O2 Sat by Pulse 99 98 99 Oximetry O2 Sat by Pulse Oximetry [ Anterior Bilateral Throughout] 09/18/17 09/18/17 09/18/17 07:50 07:59 08:00 Temperature 97.3 F L Pulse Rate 83 86 Pulse Rate [ 83 Anterior Bilateral Throughout] Pulse Rate [ 87 Right Dorsalis Pedis] Respiratory 18 Rate Respiratory 20 Rate [Anterior Bilateral Throughout] Blood Pressure 152/68 152/68 O2 Sat by Pulse 99 99 Oximetry O2 Sat by Pulse Oximetry [ Anterior Bilateral Throughout] 09/18/17 09/18/17 09/18/17 08:15 08:30 08:45 Temperature 97.8 F Pulse Rate 87 85 90 Pulse Rate [ Anterior Bilateral Throughout] Pulse Rate [ Right Dorsalis Pedis] Respiratory 16 14 16 Rate Respiratory Rate [Anterior Bilateral Throughout] Blood Pressure 152/69 142/64 140/68 O2 Sat by Pulse 99 98 98 Oximetry O2 Sat by Pulse 99 Oximetry [ Anterior Bilateral Throughout] 09/18/17 09/18/17 09/18/17 08:50 09:00 09:15 Temperature Pulse Rate 79 79 83 Pulse Rate [ Anterior Bilateral Throughout] Pulse Rate [ Right Dorsalis Pedis] Respiratory 14 15 Rate Respiratory Rate [Anterior Bilateral Throughout] Blood Pressure 146/67 134/62 144/67 O2 Sat by Pulse 98 98 Oximetry O2 Sat by Pulse Oximetry [ Anterior Bilateral Throughout] 09/18/17 09/18/17 09/18/17 09:30 09:45 10:00 Temperature Pulse Rate 89 87 92 H Pulse Rate [ Anterior Bilateral Throughout] Pulse Rate [ Right Dorsalis Pedis] Respiratory 14 15 13 Rate Respiratory Rate [Anterior Bilateral Throughout] Blood Pressure 146/68 141/61 144/72 O2 Sat by Pulse 98 99 99 Oximetry O2 Sat by Pulse Oximetry [ Anterior Bilateral Throughout] 09/18/17 09/18/17 09/18/17 10:15 10:30 10:45 Temperature Pulse Rate 76 86 82 Pulse Rate [ Anterior Bilateral Throughout] Pulse Rate [ Right Dorsalis Pedis] Respiratory 15 14 13 Rate Respiratory Rate [Anterior Bilateral Throughout] Blood Pressure 133/60 141/74 140/68 O2 Sat by Pulse 98 98 98 Oximetry O2 Sat by Pulse Oximetry [ Anterior Bilateral Throughout] 09/18/17 09/18/17 09/18/17 11:00 11:15 11:16 Temperature Pulse Rate 87 90 89 Pulse Rate [ Anterior Bilateral Throughout] Pulse Rate [ Right Dorsalis Pedis] Respiratory 13 13 Rate Respiratory Rate [Anterior Bilateral Throughout] Blood Pressure 143/74 149/74 149/74 O2 Sat by Pulse 99 100 Oximetry O2 Sat by Pulse Oximetry [ Anterior Bilateral Throughout] 05/25/18 05/25/18 05/25/18 11:30 11:45 11:50 Temperature Pulse Rate 88 88 92 H Pulse Rate [ Anterior Bilateral Throughout] Pulse Rate [ Right Dorsalis Pedis] Respiratory 16 13 Rate Respiratory Rate [Anterior Bilateral Throughout] Blood Pressure 152/75 159/73 165/78 O2 Sat by Pulse 100 100 Oximetry O2 Sat by Pulse Oximetry [ Anterior Bilateral Throughout] 09/18/17 09/18/17 09/18/17 12:00 12:15 12:30 Temperature 98.9 F Pulse Rate 89 87 76 Pulse Rate [ Anterior Bilateral Throughout] Pulse Rate [ 87 Right Dorsalis Pedis] Respiratory 15 14 12 Rate Respiratory Rate [Anterior Bilateral Throughout] Blood Pressure 157/71 147/64 167/61 O2 Sat by Pulse 100 100 100 Oximetry O2 Sat by Pulse 99 Oximetry [ Anterior Bilateral Throughout] 09/18/17 09/18/17 09/18/17 12:46 13:00 13:16 Temperature Pulse Rate 90 83 89 Pulse Rate [ Anterior Bilateral Throughout] Pulse Rate [ Right Dorsalis Pedis] Respiratory 15 16 15 Rate Respiratory Rate [Anterior Bilateral Throughout] Blood Pressure 145/64 136/63 136/63 O2 Sat by Pulse 100 100 98 Oximetry O2 Sat by Pulse Oximetry [ Anterior Bilateral Throughout] 09/18/17 09/18/17 09/18/17 13:17 13:30 13:45 Temperature Pulse Rate 84 87 90 Pulse Rate [ Anterior Bilateral Throughout] Pulse Rate [ Right Dorsalis Pedis] Respiratory 14 14 Rate Respiratory Rate [Anterior Bilateral Throughout] Blood Pressure 140/71 158/82 O2 Sat by Pulse 98 98 98 Oximetry O2 Sat by Pulse Oximetry [ Anterior Bilateral Throughout] 09/18/17 14:00 Temperature Pulse Rate 90 Pulse Rate [ Anterior Bilateral Throughout] Pulse Rate [ Right Dorsalis Pedis] Respiratory 17 Rate Respiratory Rate [Anterior Bilateral Throughout] Blood Pressure 150/75 O2 Sat by Pulse 98 Oximetry O2 Sat by Pulse Oximetry [ Anterior Bilateral Throughout] - Lab 09/18/17 03:46 09/18/17 03:46 Most recent lab results Calcium 7.6 mg/dL (8.4-10.2) L 09/18/17 03:46 Phosphorus 4.60 mg/dL (2.5-4.5) H D 09/18/17 03:46 Magnesium 1.80 mg/dL (1.7-2.3) 09/18/17 03:46 Urine Creatinine 180.6 mg/dL (0.1-20.0) H 09/13/17 14:47 Urine Sodium 29 mmol/L 09/13/17 14:47 Urine Total Protein 289 mg/dL (5-11.8) H 09/13/17 14:47
[2017-09-18] MEDS: LOPRESSOR PO SCH ×2 (16:00→20:55)
[2017-09-18] MEDS: CORDARONE PO SCH ×2 (16:00→20:55)
[2017-09-18] MEDS ORDERED: VANCOMYCIN/NS 1 GM/250 ML 1 GM/250 ML BAG IV SCH (20:00)
[2017-09-18] MEDS ORDERED: TPN ADULT 2,016 ML IV SCH (20:00)
[2017-09-19] MEDS: DUONEB *Not for PRN Use IH SCH ×3 (03:44→15:29)
[2017-09-19 04:51] LABS: Hematocrit 28.4 % (35.5-45.6); Hemoglobin 9.8 gm/dl (11.8-15.2); Mean Corpuscular HGB Conc 35 % (32-34); Mean Corpuscular Hemoglobin 32 pg (28-32); Mean Corpuscular Volume 91 fl (84-94); Red Blood Count 3.11 M/mm3 (3.65-5.03); Red Cell Distribution Width 19.4 % (13.2-15.2)
[2017-09-19 05:02] LABS: Platelet Count 34 K/mm3 (140-440)
[2017-09-19] MEDS: FLAGYL 500 MG/100 ML 500 MG/100 ML BAG IV SCH ×3 (06:08→23:08)
[2017-09-19 06:23] LABS: Anisocytosis 1+; Band Neutrophils # (Manual) 1.4 K/mm3; Basophils % (Manual) 0 % (0.0-1.8); Burr Cells Few; Hypochromasia Few; Ovalocytes Few; Total Cells Counted 100
[2017-09-19 06:24] LABS: Platelet Estimate Consistent w Auto
[2017-09-19] MEDS: PULMICORT IH SCH ×2 (09:05→21:05)
[2017-09-19] MEDS: BROVANA NEBU IH SCH ×2 (09:05→21:05)
--- NOTE | 2017-09-19 09:35 | Progress Note ---
Assessment and Plan - Patient Problems (1) Acute renal failure Current Visit: Yes Status: Acute Qualifiers: Acute renal failure type: with acute tubular necrosis Qualified Code(s): N17.0 - Acute kidney failure with tubular necrosis Plan to address problem: WILLIAM secondary to oliguric Acute tubular necrosis in the setting of hypotension/ sepsis. Follow-up electrolytes and renal function. Hemodialysis again today. Supportive care for ATN. (2) Severe sepsis with septic shock Current Visit: Yes Status: Acute Plan to address problem: Continue antibiotics appropriately dosed to renal function. Remained stable off of vasopressors. Follow up Cultures (3) Hyperkalemia Current Visit: Yes Status: Acute Plan to address problem: Potassium has improved, now with low K, will use 4K bath. Continue to follow up (4) Acute respiratory failure with hypoxia Current Visit: Yes Status: Acute Plan to address problem: Patient is off of ventilator. Being managed by pulmonary (5) Peritonitis Current Visit: Yes Status: Acute Plan to address problem: S/p Exploratory laparotomy, peritoneal lavage, cholecystectomy, placement of gastrojejunal feeding tube, closure of abdomen. Continue antibiotics Subjective Date of service: 09/19/17 Principal diagnosis: Septic shock. peritonitis, dislodged PEG tube, WILLIAM Interval history: pt on trach, awake, alert, following commands Objective - Vital Signs Vital signs: Vital Signs - 12hr 09/18/17 09/18/17 09/18/17 21:45 22:00 22:15 Temperature Pulse Rate 86 77 90 Pulse Rate [ Anterior Bilateral Throughout] Pulse Rate [ Left Dorsalis Pedis] Pulse Rate [ Left Radial] Pulse Rate [ Right Dorsalis Pedis] Pulse Rate [ Right Radial] Respiratory 16 16 19 Rate Respiratory Rate [Anterior Bilateral Throughout] Blood Pressure 141/71 144/62 137/65 O2 Sat by Pulse 99 99 99 Oximetry O2 Sat by Pulse Oximetry [ Assessment] 09/18/17 09/18/17 09/18/17 22:30 22:45 22:49 Temperature Pulse Rate 76 81 79 Pulse Rate [ Anterior Bilateral Throughout] Pulse Rate [ Left Dorsalis Pedis] Pulse Rate [ Left Radial] Pulse Rate [ Right Dorsalis Pedis] Pulse Rate [ Right Radial] Respiratory 20 17 19 Rate Respiratory Rate [Anterior Bilateral Throughout] Blood Pressure 128/69 140/60 140/60 O2 Sat by Pulse 99 98 98 Oximetry O2 Sat by Pulse Oximetry [ Assessment] 09/18/17 09/18/17 09/18/17 23:00 23:14 23:15 Temperature Pulse Rate 82 72 66 Pulse Rate [ Anterior Bilateral Throughout] Pulse Rate [ Left Dorsalis Pedis] Pulse Rate [ Left Radial] Pulse Rate [ Right Dorsalis Pedis] Pulse Rate [ Right Radial] Respiratory 20 14 13 Rate Respiratory Rate [Anterior Bilateral Throughout] Blood Pressure 135/58 140/60 134/66 O2 Sat by Pulse 98 98 99 Oximetry O2 Sat by Pulse Oximetry [ Assessment] 09/18/17 09/18/17 09/18/17 23:19 23:30 23:45 Temperature 98.9 F Pulse Rate 67 76 Pulse Rate [ Anterior Bilateral Throughout] Pulse Rate [ Left Dorsalis Pedis] Pulse Rate [ Left Radial] Pulse Rate [ Right Dorsalis Pedis] Pulse Rate [ Right Radial] Respiratory 14 20 Rate Respiratory Rate [Anterior Bilateral Throughout] Blood Pressure 141/57 126/66 O2 Sat by Pulse 98 99 Oximetry O2 Sat by Pulse Oximetry [ Assessment] 09/18/17 09/19/17 09/19/17 23:47 00:00 00:15 Temperature Pulse Rate 74 71 72 Pulse Rate [ Anterior Bilateral Throughout] Pulse Rate [ 84 Left Dorsalis Pedis] Pulse Rate [ 84 Left Radial] Pulse Rate [ 84 Right Dorsalis Pedis] Pulse Rate [ 84 Right Radial] Respiratory 15 13 Rate Respiratory Rate [Anterior Bilateral Throughout] Blood Pressure 141/57 126/66 139/64 O2 Sat by Pulse 98 98 99 Oximetry O2 Sat by Pulse Oximetry [ Assessment] 09/19/17 09/19/17 09/19/17 00:30 00:45 01:00 Temperature Pulse Rate 76 78 74 Pulse Rate [ Anterior Bilateral Throughout] Pulse Rate [ Left Dorsalis Pedis] Pulse Rate [ Left Radial] Pulse Rate [ Right Dorsalis Pedis] Pulse Rate [ Right Radial] Respiratory 12 19 13 Rate Respiratory Rate [Anterior Bilateral Throughout] Blood Pressure 141/64 136/71 139/67 O2 Sat by Pulse 99 99 99 Oximetry O2 Sat by Pulse 99 Oximetry [ Assessment] 09/19/17 09/19/17 09/19/17 01:15 02:00 03:00 Temperature Pulse Rate 72 77 86 Pulse Rate [ Anterior Bilateral Throughout] Pulse Rate [ Left Dorsalis Pedis] Pulse Rate [ Left Radial] Pulse Rate [ Right Dorsalis Pedis] Pulse Rate [ Right Radial] Respiratory 15 18 20 Rate Respiratory Rate [Anterior Bilateral Throughout] Blood Pressure 144/65 144/68 137/71 O2 Sat by Pulse 99 100 100 Oximetry O2 Sat by Pulse Oximetry [ Assessment] 09/19/17 09/19/17 09/19/17 03:32 03:41 03:44 Temperature 97.8 F Pulse Rate 78 Pulse Rate [ 82 Anterior Bilateral Throughout] Pulse Rate [ Left Dorsalis Pedis] Pulse Rate [ Left Radial] Pulse Rate [ Right Dorsalis Pedis] Pulse Rate [ Right Radial] Respiratory Rate Respiratory 20 Rate [Anterior Bilateral Throughout] Blood Pressure 148/68 O2 Sat by Pulse 98 Oximetry O2 Sat by Pulse Oximetry [ Assessment] 09/19/17 09/19/17 09/19/17 04:00 05:00 06:00 Temperature Pulse Rate 76 79 76 Pulse Rate [ Anterior Bilateral Throughout] Pulse Rate [ 84 Left Dorsalis Pedis] Pulse Rate [ 84 Left Radial] Pulse Rate [ 81 Right Dorsalis Pedis] Pulse Rate [ 84 Right Radial] Respiratory 19 19 16 Rate Respiratory Rate [Anterior Bilateral Throughout] Blood Pressure 147/71 146/65 143/68 O2 Sat by Pulse 99 100 100 Oximetry O2 Sat by Pulse Oximetry [ Assessment] 09/19/17 09/19/17 09/19/17 08:59 09:05 09:06 Temperature Pulse Rate 82 Pulse Rate [ 82 Anterior Bilateral Throughout] Pulse Rate [ Left Dorsalis Pedis] Pulse Rate [ Left Radial] Pulse Rate [ Right Dorsalis Pedis] Pulse Rate [ Right Radial] Respiratory Rate Respiratory 18 Rate [Anterior Bilateral Throughout] Blood Pressure O2 Sat by Pulse 100 100 Oximetry O2 Sat by Pulse Oximetry [ Assessment] - General Appearance General appearance: well-developed, well-nourished, appears stated age EENT: ATNC, PERRL, mucous membranes moist Neck: no JVD Respiratory: Present: Decreased Breath Sounds Cardiology: regular, S1S2 Gastrointestinal: normoactive bowel sounds Integumentary: no rash, other (2+ edema b/l LE ) Neurologic: no focal deficit, CN 3-12 intact Psychiatric: mood/affect appropriate, cooperative - Lab 09/19/17 04:15 09/19/17 04:15 Most recent lab results Calcium 8.0 mg/dL (8.4-10.2) L 09/19/17 04:15 Phosphorus 4.30 mg/dL (2.5-4.5) 09/19/17 04:15 Magnesium 1.70 mg/dL (1.7-2.3) 09/19/17 04:15 Urine Creatinine 180.6 mg/dL (0.1-20.0) H 09/13/17 14:47 Urine Sodium 29 mmol/L 09/13/17 14:47 Urine Total Protein 289 mg/dL (5-11.8) H 09/13/17 14:47
[2017-09-19] MEDS: PROTONIX IV SCH (10:21)
[2017-09-19] MEDS: LOPRESSOR PO SCH ×3 (10:21→21:10)
[2017-09-19] MEDS: CORDARONE PO SCH ×3 (10:21→21:10)
[2017-09-19] MEDS: SODIUM CHLORIDE FLUSH SYRINGE 10 ML IV SCH (10:22)
[2017-09-19] MEDS: LANTUS SUB-Q SCH (10:22)
--- NOTE | 2017-09-19 10:42 | Progress Note ---
Assessment and Plan [id number] hypoxemic respiratory failure secondary likely to #2. Acute peritonitis, status post dislodged PEG tube. (procedure s/p Exploratory laparotomy, repair of gastrotomy, removal of PEG tube , peritoneal lavage, temporary closure of abdomen with Abthera Vac on 09/12/17 and Exploratory laparotomy, peritoneal lavage, cholecystectomy, placement of gastrojejunal feeding tube, closure of abdomen) Severe sepsis. Tracheostomy Oropharyngeal dysphagia. Acute on chronic kidney injury Anarsarca Obesity. Tobacco use disorder. Anemia that is microcytic and multifactorial. Metabolic acidosis. Hyperkalemia. Adult failure to thrive. -s/p abdominal wound closure - continue supplemental oxygen and wean to keep sats > 90% - continue daily SBT's - continue enteral nutrition, ok to advance tube feeding. Place GT to gravity - continue to address VAP bundle daily - continue antibiotics and de-escalate per ID recs - remains off vasopressors - continue SCD's - continue agitation and analgesia management while avoiding benzodiazepines - Avoid nephrotoxic agents - supportive HD at this point -Improving, though he remains tenuous The high probability of a clinically significant, sudden or life threatening deterioration of the [cardiac, Renal, Respiratory, neurological] system(s) required my full and direct attention, intervention and personal management. The aggregate critical care time was [35] minutes without overlap. Time includes spent on; [x] Data Review and interpretation [x] Patient assessment and monitoring of vital signs [x] Documentation [x] Medication orders and management Subjective Date of service: 09/19/17 Principal diagnosis: Septic shock. peritonitis, dislodged PEG tube, WILLIAM Interval history: Patient is seen today for: Acute Hypoxemic Respiratory Failure; Hemorrhagic Shock; WILLIAM on Dialysis;PVD Seen and examined at bedside; 24 hour events reviewed; nursing and respiratory care staff consulted; resting peacefully in bed; no emesis or overt aspiration; resting peacefully; denies acute chest pains; mild cognitive dysfunction Remains off vasopressor support Currently on ATP More awake and alert. Tolerating tube feeding. Seen with the general surgeon at the bedside Objective Vital Signs - 12hr 09/18/17 09/18/17 09/18/17 22:45 22:49 23:00 Temperature Pulse Rate 81 79 82 Pulse Rate [ Anterior Bilateral Throughout] Pulse Rate [ Left Dorsalis Pedis] Pulse Rate [ Left Radial] Pulse Rate [ Right Dorsalis Pedis] Pulse Rate [ Right Radial] Respiratory 17 19 20 Rate Respiratory Rate [Anterior Bilateral Throughout] Blood Pressure 140/60 140/60 135/58 O2 Sat by Pulse 98 98 98 Oximetry O2 Sat by Pulse Oximetry [ Assessment] 09/18/17 09/18/17 09/18/17 23:14 23:15 23:19 Temperature 98.9 F Pulse Rate 72 66 Pulse Rate [ Anterior Bilateral Throughout] Pulse Rate [ Left Dorsalis Pedis] Pulse Rate [ Left Radial] Pulse Rate [ Right Dorsalis Pedis] Pulse Rate [ Right Radial] Respiratory 14 13 Rate Respiratory Rate [Anterior Bilateral Throughout] Blood Pressure 140/60 134/66 O2 Sat by Pulse 98 99 Oximetry O2 Sat by Pulse Oximetry [ Assessment] 09/18/17 09/18/17 09/18/17 23:30 23:45 23:47 Temperature Pulse Rate 67 76 74 Pulse Rate [ Anterior Bilateral Throughout] Pulse Rate [ Left Dorsalis Pedis] Pulse Rate [ Left Radial] Pulse Rate [ Right Dorsalis Pedis] Pulse Rate [ Right Radial] Respiratory 14 20 Rate Respiratory Rate [Anterior Bilateral Throughout] Blood Pressure 141/57 126/66 141/57 O2 Sat by Pulse 98 99 98 Oximetry O2 Sat by Pulse Oximetry [ Assessment] 09/19/17 09/19/17 09/19/17 00:00 00:15 00:30 Temperature Pulse Rate 71 72 76 Pulse Rate [ Anterior Bilateral Throughout] Pulse Rate [ 84 Left Dorsalis Pedis] Pulse Rate [ 84 Left Radial] Pulse Rate [ 84 Right Dorsalis Pedis] Pulse Rate [ 84 Right Radial] Respiratory 15 13 12 Rate Respiratory Rate [Anterior Bilateral Throughout] Blood Pressure 126/66 139/64 141/64 O2 Sat by Pulse 98 99 99 Oximetry O2 Sat by Pulse Oximetry [ Assessment] 09/19/17 09/19/17 09/19/17 00:45 01:00 01:15 Temperature Pulse Rate 78 74 72 Pulse Rate [ Anterior Bilateral Throughout] Pulse Rate [ Left Dorsalis Pedis] Pulse Rate [ Left Radial] Pulse Rate [ Right Dorsalis Pedis] Pulse Rate [ Right Radial] Respiratory 19 13 15 Rate Respiratory Rate [Anterior Bilateral Throughout] Blood Pressure 136/71 139/67 144/65 O2 Sat by Pulse 99 99 99 Oximetry O2 Sat by Pulse 99 Oximetry [ Assessment] 09/19/17 09/19/17 09/19/17 02:00 03:00 03:32 Temperature 97.8 F Pulse Rate 77 86 Pulse Rate [ Anterior Bilateral Throughout] Pulse Rate [ Left Dorsalis Pedis] Pulse Rate [ Left Radial] Pulse Rate [ Right Dorsalis Pedis] Pulse Rate [ Right Radial] Respiratory 18 20 Rate Respiratory Rate [Anterior Bilateral Throughout] Blood Pressure 144/68 137/71 O2 Sat by Pulse 100 100 Oximetry O2 Sat by Pulse Oximetry [ Assessment] 09/19/17 09/19/17 09/19/17 03:41 03:44 04:00 Temperature Pulse Rate 78 76 Pulse Rate [ 82 Anterior Bilateral Throughout] Pulse Rate [ 84 Left Dorsalis Pedis] Pulse Rate [ 84 Left Radial] Pulse Rate [ 81 Right Dorsalis Pedis] Pulse Rate [ 84 Right Radial] Respiratory 19 Rate Respiratory 20 Rate [Anterior Bilateral Throughout] Blood Pressure 148/68 147/71 O2 Sat by Pulse 98 99 Oximetry O2 Sat by Pulse Oximetry [ Assessment] 09/19/17 09/19/17 09/19/17 05:00 06:00 08:00 Temperature 98.1 F Pulse Rate 79 76 Pulse Rate [ Anterior Bilateral Throughout] Pulse Rate [ Left Dorsalis Pedis] Pulse Rate [ Left Radial] Pulse Rate [ Right Dorsalis Pedis] Pulse Rate [ Right Radial] Respiratory 19 16 Rate Respiratory Rate [Anterior Bilateral Throughout] Blood Pressure 146/65 143/68 O2 Sat by Pulse 100 100 Oximetry O2 Sat by Pulse Oximetry [ Assessment] 09/19/17 09/19/17 09/19/17 08:59 09:05 09:06 Temperature Pulse Rate 82 Pulse Rate [ 82 Anterior Bilateral Throughout] Pulse Rate [ Left Dorsalis Pedis] Pulse Rate [ Left Radial] Pulse Rate [ Right Dorsalis Pedis] Pulse Rate [ Right Radial] Respiratory Rate Respiratory 18 Rate [Anterior Bilateral Throughout] Blood Pressure O2 Sat by Pulse 100 100 Oximetry O2 Sat by Pulse Oximetry [ Assessment] 09/19/17 09:45 Temperature Pulse Rate Pulse Rate [ 80 Anterior Bilateral Throughout] Pulse Rate [ Left Dorsalis Pedis] Pulse Rate [ Left Radial] Pulse Rate [ Right Dorsalis Pedis] Pulse Rate [ Right Radial] Respiratory Rate Respiratory 16 Rate [Anterior Bilateral Throughout] Blood Pressure O2 Sat by Pulse Oximetry O2 Sat by Pulse Oximetry [ Assessment] Constitutional: no acute distress, alert, other (elderly looking slightly obese CM; normocephalic) Eyes: non-icteric ENT: oropharynx moist, other (s/p tracheostomy to ATP) Neck: supple, no lymphadenopathy, other (no thyromegaly) Effort: normal, mildly labored Ascultation: Bilateral: diminished breath sounds, rhonchi Percussion: Bilateral: dull (bases) Cardiovascular: regular rate and rhythm, other (S1,S2, no rubs or murmurs) Gastrointestinal: normoactive bowel sounds, hypoactive bowel sounds, soft, non- tender, non-distended, other (midline arpan with GJ in place) Integumentary: normal Extremities: no cyanosis, pink and warm, pulses normal, no ischemia or petechiae , edema Neurologic: non-focal exam (grossly), pupils equal and round, CN II-XII normal, motor strength normal and (weak), other (mouths words and responds appropriately to questions) Psychiatric: mood appropriate, affect normal CBC and BMP: 09/19/17 04:15 09/19/17 04:15 ABG, PT/INR, D-dimer: ABG POC ABG pH 7.496 (7.35-7.45) H 09/19/17 06:52 POC ABG pCO2 31.9 (35-45) L 09/19/17 06:52 POC ABG pO2 97 (80-105) 09/19/17 06:52 POC ABG HCO3 24.6 09/19/17 06:52 POC ABG Total CO2 26 09/19/17 06:52 POC ABG O2 Sat 98 09/19/17 06:52 PT/INR, D-dimer PT 16.2 Sec. (12.2-14.9) H 09/18/17 03:46 INR 1.23 (0.87-1.13) H 09/18/17 03:46 Abnormal lab findings: Abnormal Labs 09/12/17 09/13/17 09/13/17 22:56 03:08 05:20 WBC RBC 3.60 L Hgb 11.5 L Hct 34.4 L MCV 95 H MCHC RDW 19.8 H Plt Count 83 L Seg Neuts % (Manual) Lymphocytes % (Manual) 11.0 L Nucleated RBC % Seg Neutrophils # Man Lymphocytes # (Manual) 0.7 L PT INR APTT POC ABG pH 7.280 L POC ABG pCO2 46.4 H POC ABG pO2 110 H Sodium Potassium Chloride Carbon Dioxide BUN Creatinine Glucose POC Glucose 135 H Lactic Acid Calcium Phosphorus Total Bilirubin AST ALT Alkaline Phosphatase C-Reactive Protein Total Protein Albumin Prealbumin Urine WBC (Auto) Urine Creatinine Urine Total Protein Crossmatch 09/13/17 09/13/17 09/13/17 05:20 14:47 14:47 WBC RBC Hgb Hct MCV MCHC RDW Plt Count Seg Neuts % (Manual) Lymphocytes % (Manual) Nucleated RBC % Seg Neutrophils # Man Lymphocytes # (Manual) PT INR APTT POC ABG pH POC ABG pCO2 POC ABG pO2 Sodium Potassium 5.2 H Chloride 109.6 H Carbon Dioxide 20 L BUN 54 H Creatinine 2.3 H Glucose POC Glucose Lactic Acid Calcium 7.8 L Phosphorus 6.20 H Total Bilirubin AST ALT Alkaline Phosphatase C-Reactive Protein Total Protein Albumin Prealbumin 0.050 L Urine WBC (Auto) 30.0 H Urine Creatinine 180.6 H Urine Total Protein 289 H Crossmatch 09/13/17 09/13/17 09/13/17 14:54 14:54 17:04 WBC RBC Hgb Hct MCV MCHC RDW Plt Count Seg Neuts % (Manual) Lymphocytes % (Manual) Nucleated RBC % Seg Neutrophils # Man Lymphocytes # (Manual) PT INR APTT POC ABG pH POC ABG pCO2 POC ABG pO2 Sodium Potassium Chloride Carbon Dioxide BUN Creatinine Glucose POC Glucose 114 H Lactic Acid 2.20 H* Calcium Phosphorus Total Bilirubin AST ALT Alkaline Phosphatase C-Reactive Protein 33.10 H Total Protein Albumin Prealbumin Urine WBC (Auto) Urine Creatinine Urine Total Protein Crossmatch 09/13/17 09/13/17 09/14/17 19:40 23:49 04:07 WBC RBC Hgb Hct MCV MCHC RDW Plt Count Seg Neuts % (Manual) Lymphocytes % (Manual) Nucleated RBC % Seg Neutrophils # Man Lymphocytes # (Manual) PT INR APTT POC ABG pH 7.332 L POC ABG pCO2 34.3 L POC ABG pO2 76 L Sodium Potassium Chloride Carbon Dioxide BUN Creatinine Glucose POC Glucose 115 H Lactic Acid 2.20 H* Calcium Phosphorus Total Bilirubin AST ALT Alkaline Phosphatase C-Reactive Protein Total Protein Albumin Prealbumin Urine WBC (Auto) Urine Creatinine Urine Total Protein Crossmatch 09/14/17 09/14/17 09/14/17 05:15 05:15 05:35 WBC RBC Hgb Hct MCV MCHC RDW Plt Count Seg Neuts % (Manual) Lymphocytes % (Manual) Nucleated RBC % Seg Neutrophils # Man Lymphocytes # (Manual) PT INR APTT POC ABG pH POC ABG pCO2 POC ABG pO2 Sodium Potassium Chloride 107.5 H Carbon Dioxide 18 L BUN 77 H Creatinine 3.0 H Glucose 185 H POC Glucose 196 H Lactic Acid Calcium 7.3 L Phosphorus 7.80 H D Total Bilirubin 2.50 H AST 991 H ALT 1757 H Alkaline Phosphatase C-Reactive Protein Total Protein 4.1 L Albumin 1.8 L Prealbumin Urine WBC (Auto) Urine Creatinine Urine Total Protein Crossmatch 09/14/17 09/14/17 09/14/17 12:17 18:08 23:55 WBC RBC Hgb Hct MCV MCHC RDW Plt Count Seg Neuts % (Manual) Lymphocytes % (Manual) Nucleated RBC % Seg Neutrophils # Man Lymphocytes # (Manual) PT INR APTT POC ABG pH POC ABG pCO2 POC ABG pO2 Sodium Potassium Chloride Carbon Dioxide BUN Creatinine Glucose POC Glucose 212 H 242 H 231 H Lactic Acid Calcium Phosphorus Total Bilirubin AST ALT Alkaline Phosphatase C-Reactive Protein Total Protein Albumin Prealbumin Urine WBC (Auto) Urine Creatinine Urine Total Protein Crossmatch 09/15/17 09/15/17 09/15/17 04:12 05:50 06:00 WBC RBC 2.62 L Hgb 8.3 L D Hct 25.8 L D MCV 98 H MCHC RDW 20.1 H Plt Count 50 L Seg Neuts % (Manual) 82.0 H Lymphocytes % (Manual) 6.0 L Nucleated RBC % Seg Neutrophils # Man Lymphocytes # (Manual) 0.5 L PT INR APTT POC ABG pH 7.252 L POC ABG pCO2 POC ABG pO2 Sodium Potassium Chloride Carbon Dioxide BUN Creatinine Glucose POC Glucose 240 H Lactic Acid Calcium Phosphorus Total Bilirubin AST ALT Alkaline Phosphatase C-Reactive Protein Total Protein Albumin Prealbumin Urine WBC (Auto) Urine Creatinine Urine Total Protein Crossmatch 09/15/17 09/15/17 09/15/17 06:00 11:17 15:11 WBC RBC Hgb Hct MCV MCHC RDW Plt Count Seg Neuts % (Manual) Lymphocytes % (Manual) Nucleated RBC % Seg Neutrophils # Man Lymphocytes # (Manual) PT INR APTT POC ABG pH POC ABG pCO2 POC ABG pO2 Sodium 136 L Potassium Chloride Carbon Dioxide 17 L BUN 98 H Creatinine 3.9 H Glucose 207 H POC Glucose 215 H 238 H Lactic Acid Calcium 7.4 L Phosphorus 7.80 H Total Bilirubin 1.50 H AST 357 H ALT 1308 H Alkaline Phosphatase C-Reactive Protein Total Protein 4.2 L Albumin 1.7 L Prealbumin Urine WBC (Auto) Urine Creatinine Urine Total Protein Crossmatch 09/15/17 09/15/17 09/15/17 17:52 17:52 17:52 WBC 11.4 H RBC 2.91 L Hgb 8.8 L Hct 29.0 L MCV 100 H MCHC 31 L RDW 20.6 H Plt Count 46 L Seg Neuts % (Manual) Lymphocytes % (Manual) Nucleated RBC % Seg Neutrophils # Man Lymphocytes # (Manual) PT 16.5 H INR 1.26 H APTT 38.7 H POC ABG pH POC ABG pCO2 POC ABG pO2 Sodium 136 L Potassium Chloride Carbon Dioxide 16 L BUN 100 H Creatinine 3.8 H Glucose 220 H POC Glucose Lactic Acid Calcium 7.3 L Phosphorus Total Bilirubin 1.50 H AST 263 H ALT 1236 H Alkaline Phosphatase C-Reactive Protein Total Protein 4.3 L Albumin 2.0 L Prealbumin Urine WBC (Auto) Urine Creatinine Urine Total Protein Crossmatch 09/15/17 09/15/17 09/16/17 18:12 23:34 05:22 WBC RBC Hgb Hct MCV MCHC RDW Plt Count Seg Neuts % (Manual) Lymphocytes % (Manual) Nucleated RBC % Seg Neutrophils # Man Lymphocytes # (Manual) PT INR APTT POC ABG pH POC ABG pCO2 POC ABG pO2 Sodium Potassium Chloride Carbon Dioxide BUN Creatinine Glucose POC Glucose 276 H 275 H 306 H Lactic Acid Calcium Phosphorus Total Bilirubin AST ALT Alkaline Phosphatase C-Reactive Protein Total Protein Albumin Prealbumin Urine WBC (Auto) Urine Creatinine Urine Total Protein Crossmatch 09/16/17 09/16/17 09/16/17 06:15 06:15 12:10 WBC RBC 2.75 L Hgb 8.8 L Hct 27.1 L MCV 99 H MCHC RDW 20.2 H Plt Count 42 L Seg Neuts % (Manual) 93.0 H Lymphocytes % (Manual) 3.0 L Nucleated RBC % Seg Neutrophils # Man 8.5 H Lymphocytes # (Manual) 0.3 L PT INR APTT POC ABG pH POC ABG pCO2 POC ABG pO2 Sodium 136 L Potassium Chloride Carbon Dioxide 15 L BUN 110 H Creatinine 4.1 H Glucose 265 H POC Glucose 277 H Lactic Acid Calcium 7.6 L Phosphorus 9.00 H Total Bilirubin 1.30 H AST 227 H ALT 966 H Alkaline Phosphatase C-Reactive Protein Total Protein 4.3 L Albumin 1.8 L Prealbumin Urine WBC (Auto) Urine Creatinine Urine Total Protein Crossmatch 09/16/17 09/16/17 09/16/17 13:07 17:33 23:42 WBC RBC Hgb Hct MCV MCHC RDW Plt Count Seg Neuts % (Manual) Lymphocytes % (Manual) Nucleated RBC % Seg Neutrophils # Man Lymphocytes # (Manual) PT INR APTT POC ABG pH 7.175 L POC ABG pCO2 POC ABG pO2 71 L Sodium Potassium Chloride Carbon Dioxide BUN Creatinine Glucose POC Glucose 289 H 262 H Lactic Acid Calcium Phosphorus Total Bilirubin AST ALT Alkaline Phosphatase C-Reactive Protein Total Protein Albumin Prealbumin Urine WBC (Auto) Urine Creatinine Urine Total Protein Crossmatch 09/17/17 09/17/17 09/17/17 05:30 05:30 05:39 WBC RBC 2.39 L Hgb 7.4 L Hct 23.0 L MCV 96 H MCHC RDW 19.6 H Plt Count 24 L Seg Neuts % (Manual) 76.0 H Lymphocytes % (Manual) 5.0 L Nucleated RBC % Seg Neutrophils # Man Lymphocytes # (Manual) 0.4 L PT INR APTT POC ABG pH POC ABG pCO2 POC ABG pO2 Sodium Potassium Chloride Carbon Dioxide BUN 93 H Creatinine 3.6 H Glucose 201 H POC Glucose 218 H Lactic Acid Calcium 7.5 L Phosphorus 6.10 H D Total Bilirubin AST 62 H ALT 619 H Alkaline Phosphatase C-Reactive Protein Total Protein 4.1 L Albumin 1.7 L Prealbumin Urine WBC (Auto) Urine Creatinine Urine Total Protein Crossmatch 09/17/17 09/17/17 09/17/17 10:45 11:31 17:46 WBC RBC Hgb Hct MCV MCHC RDW Plt Count Seg Neuts % (Manual) Lymphocytes % (Manual) Nucleated RBC % Seg Neutrophils # Man Lymphocytes # (Manual) PT INR APTT POC ABG pH POC ABG pCO2 POC ABG pO2 Sodium Potassium Chloride Carbon Dioxide BUN Creatinine Glucose POC Glucose 221 H 209 H Lactic Acid Calcium Phosphorus Total Bilirubin AST ALT Alkaline Phosphatase C-Reactive Protein Total Protein Albumin Prealbumin Urine WBC (Auto) Urine Creatinine Urine Total Protein Crossmatch See Detail 09/18/17 09/18/17 09/18/17 00:05 03:46 03:46 WBC RBC 3.05 L Hgb 9.5 L Hct 28.2 L MCV MCHC RDW 19.0 H Plt Count 29 L Seg Neuts % (Manual) 81.0 H Lymphocytes % (Manual) 7.0 L Nucleated RBC % 3.0 H Seg Neutrophils # Man Lymphocytes # (Manual) 0.6 L PT 16.2 H INR 1.23 H APTT POC ABG pH POC ABG pCO2 POC ABG pO2 Sodium Potassium Chloride Carbon Dioxide BUN Creatinine Glucose POC Glucose 168 H Lactic Acid Calcium Phosphorus Total Bilirubin AST ALT Alkaline Phosphatase C-Reactive Protein Total Protein Albumin Prealbumin Urine WBC (Auto) Urine Creatinine Urine Total Protein Crossmatch 09/18/17 09/18/17 09/18/17 03:46 04:59 05:54 WBC RBC Hgb Hct MCV MCHC RDW Plt Count Seg Neuts % (Manual) Lymphocytes % (Manual) Nucleated RBC % Seg Neutrophils # Man Lymphocytes # (Manual) PT INR APTT POC ABG pH POC ABG pCO2 POC ABG pO2 75 L Sodium Potassium 3.4 L Chloride 97.2 L Carbon Dioxide BUN 73 H Creatinine 3.1 H Glucose 160 H POC Glucose 202 H Lactic Acid Calcium 7.6 L Phosphorus 4.60 H D Total Bilirubin AST ALT 446 H Alkaline Phosphatase 136 H C-Reactive Protein Total Protein 4.5 L Albumin 1.9 L Prealbumin Urine WBC (Auto) Urine Creatinine Urine Total Protein Crossmatch 09/18/17 09/18/17 09/18/17 10:52 13:14 18:34 WBC RBC Hgb Hct MCV MCHC RDW Plt Count Seg Neuts % (Manual) Lymphocytes % (Manual) Nucleated RBC % Seg Neutrophils # Man Lymphocytes # (Manual) PT INR APTT POC ABG pH POC ABG pCO2 POC ABG pO2 Sodium Potassium Chloride Carbon Dioxide BUN Creatinine Glucose POC Glucose 179 H 177 H 177 H Lactic Acid Calcium Phosphorus Total Bilirubin AST ALT Alkaline Phosphatase C-Reactive Protein Total Protein Albumin Prealbumin Urine WBC (Auto) Urine Creatinine Urine Total Protein Crossmatch 09/18/17 09/18/17 09/19/17 20:25 23:49 04:15 WBC RBC 3.11 L Hgb 9.8 L Hct 28.4 L MCV MCHC 35 H RDW 19.4 H Plt Count 34 L Seg Neuts % (Manual) 71.0 H Lymphocytes % (Manual) 6.0 L Nucleated RBC % Seg Neutrophils # Man Lymphocytes # (Manual) 0.6 L PT INR APTT POC ABG pH POC ABG pCO2 POC ABG pO2 69 L Sodium Potassium Chloride Carbon Dioxide BUN Creatinine Glucose POC Glucose 158 H Lactic Acid Calcium Phosphorus Total Bilirubin AST ALT Alkaline Phosphatase C-Reactive Protein Total Protein Albumin Prealbumin Urine WBC (Auto) Urine Creatinine Urine Total Protein Crossmatch 09/19/17 09/19/17 09/19/17 04:15 05:23 06:52 WBC RBC Hgb Hct MCV MCHC RDW Plt Count Seg Neuts % (Manual) Lymphocytes % (Manual) Nucleated RBC % Seg Neutrophils # Man Lymphocytes # (Manual) PT INR APTT POC ABG pH 7.496 H POC ABG pCO2 31.9 L POC ABG pO2 Sodium 136 L Potassium 3.2 L Chloride 94.5 L Carbon Dioxide BUN 72 H Creatinine 2.9 H Glucose 149 H POC Glucose 153 H Lactic Acid Calcium 8.0 L Phosphorus Total Bilirubin AST ALT 300 H Alkaline Phosphatase 169 H C-Reactive Protein Total Protein 4.5 L Albumin 2.0 L Prealbumin Urine WBC (Auto) Urine Creatinine Urine Total Protein Crossmatch Chest x-ray: report reviewed Allied health notes reviewed: nursing (Holding off on PT evaluation until after HD)
--- NOTE | 2017-09-19 11:38 | Progress Note ---
Assessment and Plan - Patient Problems (1) Dislodged gastrostomy tube Current Visit: Yes Status: Acute Plan to address problem: 66-year-old male s/p and Exploratory laparotomy, peritoneal lavage, cholecystectomy, placement of gastrojejunal feeding tube, closure of abdomen. POD 4 Exploratory laparotomy, repair of gastrotomy, removal of PEG tube, peritoneal lavage, temporary closure of abdomen with Abthera Vac on 09/12/17 1. septic shock 2. dislodged PEG tube 3. intraabdominal infection 4. WILLIAM Plan: 1. neuro - prn pain control 2. CV - afib, cardiology on board. Off pressors. DVT ppx - SCDs. Plts slowly rising - heme c/s appreciated. Hgb stable. 3. Resp: weant vent per ICU team 4. GI: NPO, TPN. GJ tube - Discussed with Dr. Gross this AM. Keep G tube to gravity drainage to minimize risk of gastric distention. May advance TF to goal. Bowel function seems to have resumed. Will place tag to J-tube portion to not administer meds through that port. Nutrition on board. Wean TPN as TF increases 5. : barrientos for strict I/Os. HD per nephro. May DC barrientos when OK with nephro - d/w Dr. Chacon (urology) 6. Endo: accuchecks, ISS. 7. ID: c/w abx per ID recs 8. FEN: BMP in am. replace lytes as needed. c/w NPO. c/w TPN and TF Anticipate likely return to LTAC next week. Subjective Date of service: 09/19/17 Patient Reports: Positive: feels better, flatus. Negative: nausea Objective Vital Signs - 12hr 09/18/17 09/18/17 09/19/17 23:45 23:47 00:00 Temperature Pulse Rate 76 74 71 Pulse Rate [ Anterior Bilateral Throughout] Pulse Rate [ 84 Left Dorsalis Pedis] Pulse Rate [ 84 Left Radial] Pulse Rate [ 84 Right Dorsalis Pedis] Pulse Rate [ 84 Right Radial] Respiratory 20 15 Rate Respiratory Rate [Anterior Bilateral Throughout] Blood Pressure 126/66 141/57 126/66 O2 Sat by Pulse 99 98 98 Oximetry O2 Sat by Pulse Oximetry [ Assessment] 09/19/17 09/19/17 09/19/17 00:15 00:30 00:45 Temperature Pulse Rate 72 76 78 Pulse Rate [ Anterior Bilateral Throughout] Pulse Rate [ Left Dorsalis Pedis] Pulse Rate [ Left Radial] Pulse Rate [ Right Dorsalis Pedis] Pulse Rate [ Right Radial] Respiratory 13 12 19 Rate Respiratory Rate [Anterior Bilateral Throughout] Blood Pressure 139/64 141/64 136/71 O2 Sat by Pulse 99 99 99 Oximetry O2 Sat by Pulse Oximetry [ Assessment] 09/19/17 09/19/17 09/19/17 01:00 01:15 02:00 Temperature Pulse Rate 74 72 77 Pulse Rate [ Anterior Bilateral Throughout] Pulse Rate [ Left Dorsalis Pedis] Pulse Rate [ Left Radial] Pulse Rate [ Right Dorsalis Pedis] Pulse Rate [ Right Radial] Respiratory 13 15 18 Rate Respiratory Rate [Anterior Bilateral Throughout] Blood Pressure 139/67 144/65 144/68 O2 Sat by Pulse 99 99 100 Oximetry O2 Sat by Pulse 99 Oximetry [ Assessment] 09/19/17 09/19/17 09/19/17 03:00 03:32 03:41 Temperature 97.8 F Pulse Rate 86 78 Pulse Rate [ Anterior Bilateral Throughout] Pulse Rate [ Left Dorsalis Pedis] Pulse Rate [ Left Radial] Pulse Rate [ Right Dorsalis Pedis] Pulse Rate [ Right Radial] Respiratory 20 Rate Respiratory Rate [Anterior Bilateral Throughout] Blood Pressure 137/71 148/68 O2 Sat by Pulse 100 98 Oximetry O2 Sat by Pulse Oximetry [ Assessment] 09/19/17 09/19/17 09/19/17 03:44 04:00 05:00 Temperature Pulse Rate 76 79 Pulse Rate [ 82 Anterior Bilateral Throughout] Pulse Rate [ 84 Left Dorsalis Pedis] Pulse Rate [ 84 Left Radial] Pulse Rate [ 81 Right Dorsalis Pedis] Pulse Rate [ 84 Right Radial] Respiratory 19 19 Rate Respiratory 20 Rate [Anterior Bilateral Throughout] Blood Pressure 147/71 146/65 O2 Sat by Pulse 99 100 Oximetry O2 Sat by Pulse Oximetry [ Assessment] 09/19/17 09/19/17 09/19/17 06:00 08:00 08:59 Temperature 98.1 F Pulse Rate 76 82 Pulse Rate [ Anterior Bilateral Throughout] Pulse Rate [ Left Dorsalis Pedis] Pulse Rate [ Left Radial] Pulse Rate [ Right Dorsalis Pedis] Pulse Rate [ Right Radial] Respiratory 16 Rate Respiratory Rate [Anterior Bilateral Throughout] Blood Pressure 143/68 O2 Sat by Pulse 100 100 Oximetry O2 Sat by Pulse Oximetry [ Assessment] 09/19/17 09/19/17 09/19/17 09:05 09:06 09:45 Temperature Pulse Rate Pulse Rate [ 82 80 Anterior Bilateral Throughout] Pulse Rate [ Left Dorsalis Pedis] Pulse Rate [ Left Radial] Pulse Rate [ Right Dorsalis Pedis] Pulse Rate [ Right Radial] Respiratory Rate Respiratory 18 16 Rate [Anterior Bilateral Throughout] Blood Pressure O2 Sat by Pulse 100 Oximetry O2 Sat by Pulse Oximetry [ Assessment] - General physical appearance no distress, no pain, other (looks so much better) - Respiratory normal expansion, normal respiratory effort - Abdomen soft, tender (minimal), not distended, not guarding, not rigid, wound (C/D/I), other (Bernardo tube in place. G-tube clamped. TF at 10cc/hr through J portion) - Labs 09/19/17 04:15 09/19/17 04:15 Diabetes panel 09/19/17 Range/Units 04:15 Sodium 136 L (137-145) mmol/L Potassium 3.2 L (3.6-5.0) mmol/L Chloride 94.5 L (98-107) mmol/L Carbon Dioxide 25 (22-30) mmol/L BUN 72 H (9-20) mg/dL Creatinine 2.9 H (0.8-1.5) mg/dL Glucose 149 H (75-100) mg/dL Calcium 8.0 L (8.4-10.2) mg/dL AST 23 (5-40) units/L ALT 300 H (7-56) units/L Alkaline Phosphatase 169 H (35-129) units/L Total Protein 4.5 L (6.3-8.2) g/dL Albumin 2.0 L (3.9-5) g/dL Calcium panel 09/19/17 Range/Units 04:15 Calcium 8.0 L (8.4-10.2) mg/dL Phosphorus 4.30 (2.5-4.5) mg/dL Albumin 2.0 L (3.9-5) g/dL Pituitary panel 09/19/17 Range/Units 04:15 Sodium 136 L (137-145) mmol/L Potassium 3.2 L (3.6-5.0) mmol/L Chloride 94.5 L (98-107) mmol/L Carbon Dioxide 25 (22-30) mmol/L BUN 72 H (9-20) mg/dL Creatinine 2.9 H (0.8-1.5) mg/dL Glucose 149 H (75-100) mg/dL Calcium 8.0 L (8.4-10.2) mg/dL Adrenal panel 09/19/17 Range/Units 04:15 Sodium 136 L (137-145) mmol/L Potassium 3.2 L (3.6-5.0) mmol/L Chloride 94.5 L (98-107) mmol/L Carbon Dioxide 25 (22-30) mmol/L BUN 72 H (9-20) mg/dL Creatinine 2.9 H (0.8-1.5) mg/dL Glucose 149 H (75-100) mg/dL Calcium 8.0 L (8.4-10.2) mg/dL Total Bilirubin 1.10 (0.1-1.2) mg/dL AST 23 (5-40) units/L ALT 300 H (7-56) units/L Alkaline Phosphatase 169 H (35-129) units/L Total Protein 4.5 L (6.3-8.2) g/dL Albumin 2.0 L (3.9-5) g/dL
[2017-09-19] MEDS: HumaLOG SUB-Q SCH ×2 (12:00→19:03)
--- NOTE | 2017-09-19 13:32 | Progress Note ---
Assessment and Plan Continue amiodarone by PEG tube,rate under control,B.P is stable. Consider addition of IV lopressor if necessary for BP optimization. Volume optimization per nephrology. No systemic anticoagulation at this time in regards to atrial fibrillation in setting of anemia, thrombocytopenia and recent bleeding. - Patient Problems (1) Atrial fibrillation with RVR Current Visit: Yes Status: Acute (2) Cardiomyopathy Current Visit: Yes Status: Acute Plan to address problem: Echo: report reviewed (07/2017: EF 30-35%, impaired relaxation) (3) Peritonitis Current Visit: Yes Status: Acute (4) Severe sepsis with septic shock Current Visit: Yes Status: Acute Plan to address problem: 1) Septic shock: etiology - acute peritonitis +/- UTI 2) Acute peritonitis: from gastric content spill from dislodge PEG -CT showed pneumoperitoneum and PEG tube bumper outside of stomach. -S/P Exploratory laparotomy, repair of gastrotomy, removal of PEG tube, peritoneal lavage, temporary closure of abdomen with Abthera Vac on 09/13/17 (5) Atherosclerosis of [place] arteries of extremity with intermittent claudication Current Visit: No Status: Acute Plan to address problem: History of Right lower extremity chronic ischemia with short distance claudication: -S/P elective right common femoral endarterectomy with patch angioplasty, bilateral common iliac and right external artery stenting on 08/11/17 9) History of Ruptured pseudoaneurysm left groin/external iliac: -CTA showed retroperitoneal hemorrhage and bladder thickening. -S/P deployment of new Viabond stent graft across the inguinal ligament into the common femoral artery on 08/13/17. (6) Acute renal failure Current Visit: Yes Status: Acute Qualifiers: Acute renal failure type: with acute tubular necrosis Qualified Code(s): N17.0 - Acute kidney failure with tubular necrosis Plan to address problem: (1) Acute renal failure Current Visit: Yes Status: Acute Qualifiers: Acute renal failure type: with acute tubular necrosis Qualified Code(s): N17.0 - Acute kidney failure with tubular necrosis Plan to address problem: WILLIAM secondary to oliguric Acute tubular necrosis in the setting of hypotension/ sepsis. Follow-up electrolytes and renal function. on Hemodialysis . Supportive care for ATN. (7) Dislodged gastrostomy tube Current Visit: Yes Status: Acute Plan to address problem: Exploratory laparotomy, peritoneal lavage, cholecystectomy, placement of gastrojejunal feeding tube, closure of abdomen. POD 4 Exploratory laparotomy, repair of gastrotomy, removal of PEG tube, peritoneal lavage, temporary closure of abdomen with Abthera Vac on 09/12/17 1. septic shock 2. dislodged PEG tube 3. intraabdominal infection (8) Acute respiratory failure with hypoxia Current Visit: Yes Status: Acute Plan to address problem: [id number] hypoxemic respiratory failure secondary likely to #2. Acute peritonitis, status post dislodged PEG tube. Severe sepsis. Tracheostomy Oropharyngeal dysphagia. Subjective Date of service: 09/19/17 Principal diagnosis: Septic shock. peritonitis, dislodged PEG tube, WILLIAM Interval history: Patient with tracheostomy,on ventilator. Objective Vital Signs Temp Pulse Pulse Pulse Pulse Pulse Pulse 09/19/17 12:00 98.2 F 79 09/19/17 11:00 78 09/19/17 10:00 80 09/19/17 09:45 80 09/19/17 09:06 09/19/17 09:05 82 09/19/17 09:00 89 09/19/17 08:59 82 09/19/17 08:00 98.1 F 79 09/19/17 07:00 82 09/19/17 06:00 76 09/19/17 05:00 79 09/19/17 04:00 76 84 84 81 84 09/19/17 03:44 82 09/19/17 03:41 78 09/19/17 03:32 97.8 F 09/19/17 03:00 86 09/19/17 02:00 77 09/19/17 01:15 72 09/19/17 01:00 74 09/19/17 00:45 78 09/19/17 00:30 76 09/19/17 00:15 72 09/19/17 00:00 71 84 84 84 84 09/18/17 23:47 74 09/18/17 23:45 76 09/18/17 23:30 67 09/18/17 23:19 98.9 F 09/18/17 23:15 66 09/18/17 23:14 72 09/18/17 23:00 82 09/18/17 22:49 79 09/18/17 22:45 81 09/18/17 22:30 76 09/18/17 22:15 90 09/18/17 22:00 77 09/18/17 21:45 86 09/18/17 21:30 77 09/18/17 21:15 88 09/18/17 21:00 82 09/18/17 20:45 77 09/18/17 20:30 81 09/18/17 20:29 82 09/18/17 20:15 87 09/18/17 20:04 82 09/18/17 20:00 87 82 82 82 82 09/18/17 19:50 98.8 F 09/18/17 19:45 80 09/18/17 19:30 78 09/18/17 19:15 80 09/18/17 19:00 79 09/18/17 18:45 84 09/18/17 18:30 85 09/18/17 18:16 78 09/18/17 18:00 86 09/18/17 17:45 81 09/18/17 17:30 81 09/18/17 17:15 83 09/18/17 17:00 86 09/18/17 16:45 84 09/18/17 16:32 81 09/18/17 16:30 92 H 09/18/17 16:15 90 09/18/17 16:00 97.3 F L 86 87 09/18/17 15:45 83 09/18/17 15:30 95 H 09/18/17 15:15 90 09/18/17 15:00 89 09/18/17 14:45 87 09/18/17 14:30 94 H 09/18/17 14:15 83 09/18/17 14:00 90 09/18/17 13:45 90 Resp Resp BP Pulse Ox Pulse Ox 09/19/17 12:00 15 135/64 09/19/17 11:00 14 150/72 09/19/17 10:00 15 153/63 100 09/19/17 09:45 16 09/19/17 09:06 100 09/19/17 09:05 18 09/19/17 09:00 17 152/69 100 09/19/17 08:59 100 09/19/17 08:00 12 155/66 100 09/19/17 07:00 18 134/63 100 09/19/17 06:00 16 143/68 100 09/19/17 05:00 19 146/65 100 05/26/18 04:00 19 147/71 99 05/26/18 03:44 20 05/26/18 03:41 148/68 98 05/26/18 03:32 05/26/18 03:00 20 137/71 100 05/26/18 02:00 18 144/68 100 05/26/18 01:15 15 144/65 99 05/26/18 01:00 13 139/67 99 99 05/26/18 00:45 19 136/71 99 05/26/18 00:30 12 141/64 99 05/26/18 00:15 13 139/64 99 05/26/18 00:00 15 126/66 98 05/25/18 23:47 141/57 98 05/25/18 23:45 20 126/66 99 05/25/18 23:30 14 141/57 98 05/25/18 23:19 05/25/18 23:15 13 134/66 99 05/25/18 23:14 14 140/60 98 05/25/18 23:00 20 135/58 98 05/25/18 22:49 19 140/60 98 05/25/18 22:45 17 140/60 98 05/25/18 22:30 20 128/69 99 05/25/18 22:15 19 137/65 99 05/25/18 22:00 16 144/62 99 05/25/18 21:45 16 141/71 99 05/25/18 21:30 17 139/64 98 05/25/18 21:15 21 146/72 99 05/25/18 21:00 17 144/68 97 05/25/18 20:45 15 140/64 98 05/25/18 20:30 21 145/72 98 05/25/18 20:29 20 05/25/18 20:15 21 147/70 97 05/25/18 20:04 147/70 98 05/25/18 20:00 16 143/72 98 05/25/18 19:50 05/25/18 19:45 16 145/67 97 05/25/18 19:30 15 137/61 97 05/25/18 19:15 16 134/70 98 05/25/18 19:00 15 140/61 98 05/25/18 18:45 13 145/69 98 05/25/18 18:30 17 125/65 99 09/18/17 18:16 15 151/63 100 09/18/17 18:00 11 L 145/70 96 09/18/17 17:45 17 145/70 97 09/18/17 17:30 14 148/69 97 09/18/17 17:15 16 144/68 97 09/18/17 17:00 15 100/84 97 97 09/18/17 16:45 15 159/72 98 09/18/17 16:32 20 09/18/17 16:30 18 157/72 97 09/18/17 16:15 14 156/77 97 09/18/17 16:00 10 L 150/66 98 09/18/17 15:45 13 157/71 98 09/18/17 15:30 15 162/74 98 09/18/17 15:15 17 160/70 98 09/18/17 15:00 14 154/74 96 09/18/17 14:45 15 168/71 97 09/18/17 14:30 15 164/66 98 09/18/17 14:15 15 154/66 98 09/18/17 14:00 17 150/75 98 09/18/17 13:45 14 158/82 98 - Physical Examination General: No Apparent Distress, Other (intubated) HEENT: Positive: EOMI, Normocephaly, Mucus Membranes Moist Neck: Positive: neck supple, trachea midline Cardiac: Positive: irregularly irregular (G tube in place.) Lungs: Positive: Normal Breath Sounds Neuro: Positive: Grossly Intact Abdomen: Positive: Soft, Active Bowel Sounds. Negative: Tender /Rectal: Other (Scrotum edematous.) Skin: Positive: Clear. Negative: Rash Musculoskeletal: Normal Range of Motion Extremities: Present: +1 Edema - Labs and Meds Cardiac Enzymes 09/19/17 Range/Units 04:15 AST 23 (5-40) units/L CBC 09/19/17 Range/Units 04:15 WBC 9.2 (4.5-11.0) K/mm3 RBC 3.11 L (3.65-5.03) M/mm3 Hgb 9.8 L (11.8-15.2) gm/dl Hct 28.4 L (35.5-45.6) % Plt Count 34 L (140-440) K/mm3 Comprehensive Metabolic Panel 05/26/18 Range/Units 04:15 Sodium 136 L (137-145) mmol/L Potassium 3.2 L (3.6-5.0) mmol/L Chloride 94.5 L (98-107) mmol/L Carbon Dioxide 25 (22-30) mmol/L BUN 72 H (9-20) mg/dL Creatinine 2.9 H (0.8-1.5) mg/dL Glucose 149 H (75-100) mg/dL Calcium 8.0 L (8.4-10.2) mg/dL AST 23 (5-40) units/L ALT 300 H (7-56) units/L Alkaline Phosphatase 169 H (35-129) units/L Total Protein 4.5 L (6.3-8.2) g/dL Albumin 2.0 L (3.9-5) g/dL - Imaging and Cardiology Echo: report reviewed (07/2017: EF 30-35%, impaired relaxation) - Telemetry EKG Rhythm: Atrial Fibrillation (with controlled VR.) - Allied health notes Allied health notes reviewed: nursing (Holding off on PT evaluation until after HD)
--- NOTE | 2017-09-19 14:31 | Progress Note ---
Assessment and Plan Sepsis with septic shock improving Continue with iv antibiotic per ID Cautious iv hydration b/c of Acute on chronic renal failure now on HD - Peritonitis from dislodged PEG tube and sepsis - resolving s/p lap with peritoneal lavage and repair of gastrostomy, removal of PEG tube Continue with iv levquin, Flagyl and diflucan - Gangerous gallbaldder s/p cholecyctectomy - Acute on Chronic renal failure requiring HD Improving. improving - Acute on chronic respiratory failure Off Mechanical ventilation via trach during the day only continue with bronchodilator Pulm Following - Anemia - of chronic disease s/p blood transfusion - Transaminasemia from gangerous gall bladder s/p cholecyctectomy improving Will trend. anticipate improvement with iv hydration - Possible HIT Off heparin Hematology following - DVT PPX with lovenox Subjective Date of service: 09/19/17 Principal diagnosis: Septic shock. peritonitis, dislodged PEG tube, WILLIAM Interval history: Pt seen and examined. s/p Closure of abdominal wound with cholecyctectomy of gangrenous gall bladder. Still in ICU. Discussed with nursing staff. No overnight event reported to me. Off pressors. Afebrile Objective - Exam Narrative Exam: Constitutional: Now off mechanical ventilation through tracheostomy during the day. Afebrile. Awake Head: Normocephalic atraumatic Eyes: Pupils are equal round and reactive to light Nose: No enlarged turbinates, no septal deviation. Mouth: Moist mucous membranes. Neck: Supple no thyromegaly. No bruit. No JVD. tach tube in place Heart: Regular rate and rhythm, S1-S2 abnormal. No rubs murmurs or gallop Lungs: Decreased breath sound bilaterally. No rhonchi Abdomen: Soft, Dry surgical wound dressing nontender. PEG tube in place Extremities: 2+ edema no cyanosis and no clubbing. Neuro: Alert oriented Oriented x1. No focal sensory or motor deficit. Skin: No rashes no hyperemic spots Psychiatry: Euthymic. Calm. - Constitutional Vitals: Vital Signs - 12hr 09/19/17 09/19/17 09/19/17 03:00 03:32 03:41 Temperature 97.8 F Pulse Rate 86 78 Pulse Rate [ Anterior Bilateral Throughout] Pulse Rate [ Left Dorsalis Pedis] Pulse Rate [ Left Radial] Pulse Rate [ Right Dorsalis Pedis] Pulse Rate [ Right Radial] Respiratory 20 Rate Respiratory Rate [Anterior Bilateral Throughout] Blood Pressure 137/71 148/68 O2 Sat by Pulse 100 98 Oximetry 09/19/17 09/19/17 09/19/17 03:44 04:00 05:00 Temperature Pulse Rate 76 79 Pulse Rate [ 82 Anterior Bilateral Throughout] Pulse Rate [ 84 Left Dorsalis Pedis] Pulse Rate [ 84 Left Radial] Pulse Rate [ 81 Right Dorsalis Pedis] Pulse Rate [ 84 Right Radial] Respiratory 19 19 Rate Respiratory 20 Rate [Anterior Bilateral Throughout] Blood Pressure 147/71 146/65 O2 Sat by Pulse 99 100 Oximetry 09/19/17 09/19/17 09/19/17 06:00 07:00 08:00 Temperature 98.1 F Pulse Rate 76 82 79 Pulse Rate [ Anterior Bilateral Throughout] Pulse Rate [ Left Dorsalis Pedis] Pulse Rate [ Left Radial] Pulse Rate [ Right Dorsalis Pedis] Pulse Rate [ Right Radial] Respiratory 16 18 12 Rate Respiratory Rate [Anterior Bilateral Throughout] Blood Pressure 143/68 134/63 155/66 O2 Sat by Pulse 100 100 100 Oximetry 09/19/17 09/19/17 09/19/17 08:59 09:00 09:05 Temperature Pulse Rate 82 89 Pulse Rate [ 82 Anterior Bilateral Throughout] Pulse Rate [ Left Dorsalis Pedis] Pulse Rate [ Left Radial] Pulse Rate [ Right Dorsalis Pedis] Pulse Rate [ Right Radial] Respiratory 17 Rate Respiratory 18 Rate [Anterior Bilateral Throughout] Blood Pressure 152/69 O2 Sat by Pulse 100 100 Oximetry 09/19/17 09/19/17 09/19/17 09:06 09:45 10:00 Temperature Pulse Rate 80 Pulse Rate [ 80 Anterior Bilateral Throughout] Pulse Rate [ Left Dorsalis Pedis] Pulse Rate [ Left Radial] Pulse Rate [ Right Dorsalis Pedis] Pulse Rate [ Right Radial] Respiratory 15 Rate Respiratory 16 Rate [Anterior Bilateral Throughout] Blood Pressure 153/63 O2 Sat by Pulse 100 100 Oximetry 09/19/17 09/19/17 09/19/17 11:00 12:00 13:44 Temperature 98.2 F Pulse Rate 78 79 Pulse Rate [ Anterior Bilateral Throughout] Pulse Rate [ Left Dorsalis Pedis] Pulse Rate [ Left Radial] Pulse Rate [ Right Dorsalis Pedis] Pulse Rate [ Right Radial] Respiratory 14 15 Rate Respiratory Rate [Anterior Bilateral Throughout] Blood Pressure 150/72 135/64 O2 Sat by Pulse 97 Oximetry - Labs CBC & Chem 7: 09/19/17 04:15 09/19/17 04:15 Labs: Abnormal lab results 09/17/17 09/18/17 09/18/17 Range/Units 10:45 18:34 20:25 RBC (3.65-5.03) M/mm3 Hgb (11.8-15.2) gm/dl Hct (35.5-45.6) % MCHC (32-34) % RDW (13.2-15.2) % Plt Count (140-440) K/mm3 Seg Neuts % (Manual) (40.0-70.0) % Lymphocytes % (Manual) (13.4-35.0) % Lymphocytes # (Manual) (1.2-5.4) K/mm3 POC ABG pH (7.35-7.45) POC ABG pCO2 (35-45) POC ABG pO2 69 L (80-105) Sodium (137-145) mmol/L Potassium (3.6-5.0) mmol/L Chloride (98-107) mmol/L BUN (9-20) mg/dL Creatinine (0.8-1.5) mg/dL Glucose (75-100) mg/dL POC Glucose 177 H (70-105) Calcium (8.4-10.2) mg/dL ALT (7-56) units/L Alkaline Phosphatase (35-129) units/L Total Protein (6.3-8.2) g/dL Albumin (3.9-5) g/dL Crossmatch See Detail 09/18/17 09/19/17 09/19/17 Range/Units 23:49 04:15 04:15 RBC 3.11 L (3.65-5.03) M/mm3 Hgb 9.8 L (11.8-15.2) gm/dl Hct 28.4 L (35.5-45.6) % MCHC 35 H (32-34) % RDW 19.4 H (13.2-15.2) % Plt Count 34 L (140-440) K/mm3 Seg Neuts % (Manual) 71.0 H (40.0-70.0) % Lymphocytes % (Manual) 6.0 L (13.4-35.0) % Lymphocytes # (Manual) 0.6 L (1.2-5.4) K/mm3 POC ABG pH (7.35-7.45) POC ABG pCO2 (35-45) POC ABG pO2 (80-105) Sodium 136 L (137-145) mmol/L Potassium 3.2 L (3.6-5.0) mmol/L Chloride 94.5 L (98-107) mmol/L BUN 72 H (9-20) mg/dL Creatinine 2.9 H (0.8-1.5) mg/dL Glucose 149 H (75-100) mg/dL POC Glucose 158 H (70-105) Calcium 8.0 L (8.4-10.2) mg/dL ALT 300 H (7-56) units/L Alkaline Phosphatase 169 H (35-129) units/L Total Protein 4.5 L (6.3-8.2) g/dL Albumin 2.0 L (3.9-5) g/dL Crossmatch 09/19/17 09/19/17 09/19/17 Range/Units 05:23 06:52 11:43 RBC (3.65-5.03) M/mm3 Hgb (11.8-15.2) gm/dl Hct (35.5-45.6) % MCHC (32-34) % RDW (13.2-15.2) % Plt Count (140-440) K/mm3 Seg Neuts % (Manual) (40.0-70.0) % Lymphocytes % (Manual) (13.4-35.0) % Lymphocytes # (Manual) (1.2-5.4) K/mm3 POC ABG pH 7.496 H (7.35-7.45) POC ABG pCO2 31.9 L (35-45) POC ABG pO2 (80-105) Sodium (137-145) mmol/L Potassium (3.6-5.0) mmol/L Chloride (98-107) mmol/L BUN (9-20) mg/dL Creatinine (0.8-1.5) mg/dL Glucose (75-100) mg/dL POC Glucose 153 H 117 H (70-105) Calcium (8.4-10.2) mg/dL ALT (7-56) units/L Alkaline Phosphatase (35-129) units/L Total Protein (6.3-8.2) g/dL Albumin (3.9-5) g/dL Crossmatch
--- NOTE | 2017-09-19 15:12 | Hem/Onc Progress Note ---
Subjective Date of service: 09/19/17 Principal diagnosis: thrombocytopenia Interval history: Platelet count and Hgb stable HIT assay pending Objective - Constitutional Vitals: Last Vital Signs Temp 98.2 F 09/19/17 12:00 Pulse 86 09/19/17 14:00 Resp 14 09/19/17 14:00 BP 153/62 09/19/17 14:00 Pulse Ox 95 09/19/17 14:00 Performance status: 4-completely disabled - Respiratory Respiratory effort: Positive: normal Respiratory: bilateral: CTA - Cardiovascular Rhythm: regular Extremity abnormal: edema - Labs Lab Results: Laboratory Results - last 24 hr 09/17/17 09/18/17 09/18/17 10:45 18:34 20:25 WBC RBC Hgb Hct MCV MCH MCHC RDW Plt Count Add Manual Diff Total Counted Seg Neutrophils % Seg Neuts % (Manual) Band Neutrophils % Lymphocytes % (Manual) Reactive Lymphs % (Man) Monocytes % (Manual) Eosinophils % (Manual) Basophils % (Manual) Metamyelocytes % Myelocytes % Promyelocytes % Blast Cells % Nucleated RBC % Seg Neutrophils # Man Band Neutrophils # Lymphocytes # (Manual) Abs React Lymphs (Man) Monocytes # (Manual) Eosinophils # (Manual) Basophils # (Manual) Metamyelocytes # Myelocytes # Promyelocytes # Blast Cells # WBC Morphology Hypersegmented Neuts Hyposegmented Neuts Hypogranular Neuts Smudge Cells Toxic Granulation Toxic Vacuolation Dohle Bodies Pelger-Huet Anomaly Tito Rods Platelet Estimate Clumped Platelets Plt Clumps, EDTA Large Platelets Giant Platelets Platelet Satelliting Plt Morphology Comment RBC Morphology Dimorphic RBCs Polychromasia Hypochromasia Poikilocytosis Anisocytosis Microcytosis Macrocytosis Spherocytes Pappenheimer Bodies Sickle Cells Target Cells Tear Drop Cells Ovalocytes Helmet Cells Kevin-[place]ip[place] Bodies Goldvein Rings Lisa Cells Bite Cells Crenated Cell Elliptocytes Acanthocytes (Spur) Rouleaux Hemoglobin C Crystals Schistocytes Malaria parasites Brayan Bodies Hem Pathologist Commnt POC ABG pH 7.394 POC ABG pCO2 39.8 POC ABG pO2 69 L POC ABG HCO3 24.3 POC ABG Total CO2 26 POC ABG O2 Sat 94 POC ABG Base Excess -1 FiO2 35 Sodium Potassium Chloride Carbon Dioxide Anion Gap BUN Creatinine Estimated GFR BUN/Creatinine Ratio Glucose POC Glucose 177 H Calcium Phosphorus Magnesium Total Bilirubin AST ALT Alkaline Phosphatase Total Protein Albumin Albumin/Globulin Ratio Blood Type O POSITIVE Antibody Screen Negative Crossmatch See Detail 09/18/17 09/19/17 09/19/17 23:49 04:15 04:15 WBC 9.2 RBC 3.11 L Hgb 9.8 L Hct 28.4 L MCV 91 MCH 32 MCHC 35 H RDW 19.4 H Plt Count 34 L Add Manual Diff Complete Total Counted 100 Seg Neutrophils % Pantographer Seg Neuts % (Manual) 71.0 H Band Neutrophils % 15.0 Lymphocytes % (Manual) 6.0 L Reactive Lymphs % (Man) 0 Monocytes % (Manual) 1.0 Eosinophils % (Manual) 4.0 Basophils % (Manual) 0 Metamyelocytes % 3.0 Myelocytes % 0 Promyelocytes % 0 Blast Cells % 0 Nucleated RBC % Not Reportable Seg Neutrophils # Man 6.5 Band Neutrophils # 1.4 Lymphocytes # (Manual) 0.6 L Abs React Lymphs (Man) 0.0 Monocytes # (Manual) 0.1 Eosinophils # (Manual) 0.4 Basophils # (Manual) 0.0 Metamyelocytes # 0.3 Myelocytes # 0.0 Promyelocytes # 0.0 Blast Cells # 0.0 WBC Morphology Not Reportable Hypersegmented Neuts Not Reportable Hyposegmented Neuts Not Reportable Hypogranular Neuts Not Reportable Smudge Cells Not Reportable Toxic Granulation Not Reportable Toxic Vacuolation Not Reportable Dohle Bodies Not Reportable Pelger-Huet Anomaly Not Reportable Tito Rods Not Reportable Platelet Estimate Consistent w auto Clumped Platelets Not Reportable Plt Clumps, EDTA Not Reportable Large Platelets Not Reportable Giant Platelets Not Reportable Platelet Satelliting Not Reportable Plt Morphology Comment Not Reportable RBC Morphology Not Reportable Dimorphic RBCs Not Reportable Polychromasia 1+ Hypochromasia Few Poikilocytosis Not Reportable Anisocytosis 1+ Microcytosis Not Reportable Macrocytosis Not Reportable Spherocytes Not Reportable Pappenheimer Bodies Not Reportable Sickle Cells Not Reportable Target Cells Not Reportable Tear Drop Cells Not Reportable Ovalocytes Few Helmet Cells Not Reportable Kevin-[place] Bodies Not Reportable Goldvein Rings Not Reportable [place] Cells Few Bite Cells Not Reportable Crenated Cell Not Reportable Elliptocytes Not Reportable Acanthocytes (Spur) Not Reportable Rouleaux Not Reportable Hemoglobin C Crystals Not Reportable Schistocytes Not Reportable Malaria parasites Not Reportable Brayan Bodies Not Reportable Hem Pathologist Commnt No POC ABG pH POC ABG pCO2 POC ABG pO2 POC ABG HCO3 POC ABG Total CO2 POC ABG O2 Sat POC ABG Base Excess FiO2 Sodium 136 L Potassium 3.2 L Chloride 94.5 L Carbon Dioxide 25 Anion Gap 20 BUN 72 H Creatinine 2.9 H Estimated GFR 22 BUN/Creatinine Ratio 25 Glucose 149 H POC Glucose 158 H Calcium 8.0 L Phosphorus 4.30 Magnesium 1.70 Total Bilirubin 1.10 AST 23 ALT 300 H Alkaline Phosphatase 169 H Total Protein 4.5 L Albumin 2.0 L Albumin/Globulin Ratio 0.8 Blood Type Antibody Screen Crossmatch 09/19/17 09/19/17 09/19/17 05:23 06:52 11:43 WBC RBC Hgb Hct MCV MCH MCHC RDW Plt Count Add Manual Diff Total Counted Seg Neutrophils % Seg Neuts % (Manual) Band Neutrophils % Lymphocytes % (Manual) Reactive Lymphs % (Man) Monocytes % (Manual) Eosinophils % (Manual) Basophils % (Manual) Metamyelocytes % Myelocytes % Promyelocytes % Blast Cells % Nucleated RBC % Seg Neutrophils # Man Band Neutrophils # Lymphocytes # (Manual) Abs React Lymphs (Man) Monocytes # (Manual) Eosinophils # (Manual) Basophils # (Manual) Metamyelocytes # Myelocytes # Promyelocytes # Blast Cells # WBC Morphology Hypersegmented Neuts Hyposegmented Neuts Hypogranular Neuts Smudge Cells Toxic Granulation Toxic Vacuolation Dohle Bodies Pelger-Huet Anomaly Tito Rods Platelet Estimate Clumped Platelets Plt Clumps, EDTA Large Platelets Giant Platelets Platelet Satelliting Plt Morphology Comment RBC Morphology Dimorphic RBCs Polychromasia Hypochromasia Poikilocytosis Anisocytosis Microcytosis Macrocytosis Spherocytes Pappenheimer Bodies Sickle Cells Target Cells Tear Drop Cells Ovalocytes Helmet Cells Kevin-[place]ip[place] Bodies Goldvein Rings [place] Cells Bite Cells Crenated Cell Elliptocytes Acanthocytes (Spur) Rouleaux Hemoglobin C Crystals Schistocytes Malaria parasites Brayan Bodies Hem Pathologist Commnt POC ABG pH 7.496 H POC ABG pCO2 31.9 L POC ABG pO2 97 POC ABG HCO3 24.6 POC ABG Total CO2 26 POC ABG O2 Sat 98 POC ABG Base Excess 1 FiO2 40 Sodium Potassium Chloride Carbon Dioxide Anion Gap BUN Creatinine Estimated GFR BUN/Creatinine Ratio Glucose POC Glucose 153 H 117 H Calcium Phosphorus Magnesium Total Bilirubin AST ALT Alkaline Phosphatase Total Protein Albumin Albumin/Globulin Ratio Blood Type Antibody Screen Crossmatch
[2017-09-19] MEDS: MAXIPIME 2 GM in NACL 0.9% 20 ML IV SCH (15:33)
[2017-09-19] MEDS ORDERED: TPN ADULT 2,016 ML IV SCH (20:00)
[2017-09-19] MEDS: DIFLUCAN 200 MG/100 ML BAG IV SCH (23:08)
[2017-09-19] MEDS: SUBLIMAZE IV PRN (23:22)
[2017-09-20] MEDS: DUONEB *Not for PRN Use IH SCH ×3 (04:25→15:20)
[2017-09-20] MEDS: FLAGYL 500 MG/100 ML 500 MG/100 ML BAG IV SCH ×3 (05:49→23:56)
[2017-09-20] MEDS: SUBLIMAZE IV PRN ×2 (05:49→10:29)
[2017-09-20] MEDS: HumaLOG SUB-Q SCH ×5 (06:00→18:53)
[2017-09-20 06:54] LABS: Hematocrit 30.3 % (35.5-45.6); Mean Corpuscular HGB Conc 33 % (32-34); Mean Corpuscular Hemoglobin 31 pg (28-32); Mean Corpuscular Volume 93 fl (84-94); Red Blood Count 3.26 M/mm3 (3.65-5.03); Red Cell Distribution Width 19.3 % (13.2-15.2)
[2017-09-20 07:13] LABS: Platelet Count 34 K/mm3 (140-440)
[2017-09-20 07:20] LABS: Albumin 1.8 g/dL (3.9-5); Calcium 8.2 mg/dL (8.4-10.2)
[2017-09-20] MEDS ORDERED: NACL 0.9% 100 ML IV PRN (08:02)
--- NOTE | 2017-09-20 08:08 | Progress Note ---
Assessment and Plan - Patient Problems (1) Acute renal failure Current Visit: Yes Status: Acute Qualifiers: Acute renal failure type: with acute tubular necrosis Qualified Code(s): N17.0 - Acute kidney failure with tubular necrosis Plan to address problem: WILLIAM secondary to oliguric Acute tubular necrosis in the setting of hypotension/ sepsis. Follow-up electrolytes and renal function. rising BUN/Cr in between HD, will cont HD on MWF schedule. Supportive care for ATN. (2) Severe sepsis with septic shock Current Visit: Yes Status: Acute Plan to address problem: Continue antibiotics appropriately dosed to renal function. Remained stable off of vasopressors. Follow up Cultures (3) Hyperkalemia Current Visit: Yes Status: Acute Plan to address problem: Potassium has improved, now with low K, will use 4K bath. Continue to follow up (4) Acute respiratory failure with hypoxia Current Visit: Yes Status: Acute Plan to address problem: Patient is off of ventilator. Being managed by pulmonary (5) Peritonitis Current Visit: Yes Status: Acute Plan to address problem: S/p Exploratory laparotomy, peritoneal lavage, cholecystectomy, placement of gastrojejunal feeding tube, closure of abdomen. Continue antibiotics Subjective Date of service: 09/20/17 Principal diagnosis: thrombocytopenia Interval history: pt on trach, awake, alert, following commands Objective - Vital Signs Vital signs: Vital Signs - 12hr 09/19/17 09/19/17 09/19/17 21:00 21:02 21:06 Temperature Pulse Rate 77 82 Pulse Rate [ 76 Anterior Bilateral Throughout] Respiratory 16 19 Rate Respiratory 15 Rate [Anterior Bilateral Throughout] Blood Pressure 163/72 163/72 O2 Sat by Pulse 97 97 Oximetry O2 Sat by Pulse Oximetry [ Assessment] 09/19/17 09/19/17 09/19/17 21:10 21:40 22:00 Temperature Pulse Rate 82 76 Pulse Rate [ 12 L Anterior Bilateral Throughout] Respiratory 17 Rate Respiratory 15 Rate [Anterior Bilateral Throughout] Blood Pressure 163/72 163/68 O2 Sat by Pulse 98 Oximetry O2 Sat by Pulse Oximetry [ Assessment] 09/19/17 09/19/17 09/19/17 22:01 23:00 23:10 Temperature 98.4 F Pulse Rate 75 76 Pulse Rate [ Anterior Bilateral Throughout] Respiratory 17 17 Rate Respiratory Rate [Anterior Bilateral Throughout] Blood Pressure 158/62 160/71 O2 Sat by Pulse 98 Oximetry O2 Sat by Pulse 94 Oximetry [ Assessment] 09/20/17 09/20/17 09/20/17 00:00 00:08 01:00 Temperature Pulse Rate 80 79 80 Pulse Rate [ Anterior Bilateral Throughout] Respiratory 15 17 Rate Respiratory Rate [Anterior Bilateral Throughout] Blood Pressure 154/80 154/80 160/79 O2 Sat by Pulse 97 99 Oximetry O2 Sat by Pulse Oximetry [ Assessment] 09/20/17 09/20/17 09/20/17 02:00 03:00 03:45 Temperature 97.7 F Pulse Rate 83 78 Pulse Rate [ Anterior Bilateral Throughout] Respiratory 18 17 Rate Respiratory Rate [Anterior Bilateral Throughout] Blood Pressure 155/80 154/73 O2 Sat by Pulse 99 99 Oximetry O2 Sat by Pulse Oximetry [ Assessment] 09/20/17 09/20/17 09/20/17 04:00 04:25 05:00 Temperature Pulse Rate 77 89 Pulse Rate [ 17 L Anterior Bilateral Throughout] Respiratory 15 18 Rate Respiratory Rate [Anterior Bilateral Throughout] Blood Pressure 148/74 147/77 O2 Sat by Pulse 100 99 Oximetry O2 Sat by Pulse Oximetry [ Assessment] 09/20/17 09/20/17 06:00 07:00 Temperature Pulse Rate 95 H 82 Pulse Rate [ Anterior Bilateral Throughout] Respiratory 19 14 Rate Respiratory Rate [Anterior Bilateral Throughout] Blood Pressure 161/77 146/79 O2 Sat by Pulse 98 100 Oximetry O2 Sat by Pulse Oximetry [ Assessment] - General Appearance General appearance: well-developed, well-nourished, appears stated age, obese EENT: ATNC, PERRL, mucous membranes moist Neck: no JVD Respiratory: Present: Decreased Breath Sounds Cardiology: regular, S1S2 Gastrointestinal: normoactive bowel sounds Integumentary: no rash, other (2-3+ edema b/l LE ) Neurologic: no focal deficit, alert and oriented x3, strength 5/5, CN 3-12 intact Psychiatric: mood/affect appropriate, cooperative - Lab 09/20/17 06:00 09/20/17 06:00 Most recent lab results Calcium 8.2 mg/dL (8.4-10.2) L 09/20/17 06:00 Phosphorus 5.00 mg/dL (2.5-4.5) H 09/20/17 06:00 Magnesium 1.70 mg/dL (1.7-2.3) 09/20/17 06:00 Urine Creatinine 180.6 mg/dL (0.1-20.0) H 09/13/17 14:47 Urine Sodium 29 mmol/L 09/13/17 14:47 Urine Total Protein 289 mg/dL (5-11.8) H 09/13/17 14:47
[2017-09-20] MEDS: BROVANA NEBU IH SCH ×2 (08:45→23:04)
[2017-09-20] MEDS: PULMICORT IH SCH ×2 (08:45→23:05)
[2017-09-20] MEDS: SODIUM CHLORIDE FLUSH SYRINGE 10 ML IV SCH ×3 (10:15→23:56)
[2017-09-20] MEDS: LANTUS SUB-Q SCH (10:31)
[2017-09-20] MEDS: PROTONIX IV SCH (10:31)
[2017-09-20] MEDS: LOPRESSOR PO SCH ×3 (10:31→22:01)
[2017-09-20] MEDS: CORDARONE PO SCH ×3 (10:31→22:01)
--- NOTE | 2017-09-20 10:55 | Progress Note ---
Assessment and Plan [id number] hypoxemic respiratory failure secondary likely to #2. Acute peritonitis, status post dislodged PEG tube. (procedure s/p Exploratory laparotomy, repair of gastrotomy, removal of PEG tube , peritoneal lavage, temporary closure of abdomen with Abthera Vac on 09/12/17 and Exploratory laparotomy, peritoneal lavage, cholecystectomy, placement of gastrojejunal feeding tube, closure of abdomen) Severe sepsis. Tracheostomy Oropharyngeal dysphagia. Acute on chronic kidney injury Anarsarca Obesity. Tobacco use disorder. Anemia -microcytic ABLA Metabolic acidosis. Hyperkalemia. Adult failure to thrive. Thrombocytopenia -s/p abdominal wound closure - continue supplemental oxygen and wean to keep sats > 90% - continue daily SBT's - continue enteral nutrition, ok to advance tube feeding. Place GT to gravity - continue to address VAP bundle daily - continue antibiotics and de-escalate per ID recs - remains off vasopressors - continue SCD's - continue agitation and analgesia management while avoiding benzodiazepines - Avoid nephrotoxic agents - supportive HD -Follow up HIT panel -mobility, PT/OT -Improving, though he remains tenuous The high probability of a clinically significant, sudden or life threatening deterioration of the [cardiac, Renal, Respiratory, neurological] system(s) required my full and direct attention, intervention and personal management. The aggregate critical care time was [30] minutes without overlap. Time includes spent on; [x] Data Review and interpretation [x] Patient assessment and monitoring of vital signs [x] Documentation [x] Medication orders and management Subjective Date of service: 09/20/17 Principal diagnosis: thrombocytopenia Interval history: Patient is seen today for: Acute Hypoxemic Respiratory Failure; Hemorrhagic Shock; WILLIAM on Dialysis;PVD Seen and examined at bedside; 24 hour events reviewed; nursing and respiratory care staff consulted; resting peacefully in bed; no emesis or overt aspiration; resting peacefully; denies acute chest pains; mild cognitive dysfunction Remains off vasopressor support. Currently on ATP More awake and alert. Tolerating tube feeding. Objective Vital Signs - 12hr 09/19/17 09/19/17 09/20/17 23:00 23:10 00:00 Temperature 98.4 F Pulse Rate 76 80 Pulse Rate [ Anterior Bilateral Throughout] Pulse Rate [ 84 Left Dorsalis Pedis] Pulse Rate [ 84 Left Radial] Pulse Rate [ 78 Right Dorsalis Pedis] Pulse Rate [ 84 Right Radial] Respiratory 17 15 Rate Respiratory Rate [Anterior Bilateral Throughout] Blood Pressure 160/71 154/80 O2 Sat by Pulse 98 Oximetry O2 Sat by Pulse 94 Oximetry [ Assessment] 09/20/17 09/20/17 09/20/17 00:08 01:00 02:00 Temperature Pulse Rate 79 80 83 Pulse Rate [ Anterior Bilateral Throughout] Pulse Rate [ Left Dorsalis Pedis] Pulse Rate [ Left Radial] Pulse Rate [ Right Dorsalis Pedis] Pulse Rate [ Right Radial] Respiratory 17 18 Rate Respiratory Rate [Anterior Bilateral Throughout] Blood Pressure 154/80 160/79 155/80 O2 Sat by Pulse 97 99 99 Oximetry O2 Sat by Pulse Oximetry [ Assessment] 09/20/17 09/20/17 09/20/17 03:00 03:45 04:00 Temperature 97.7 F Pulse Rate 78 77 Pulse Rate [ Anterior Bilateral Throughout] Pulse Rate [ 84 Left Dorsalis Pedis] Pulse Rate [ 84 Left Radial] Pulse Rate [ 78 Right Dorsalis Pedis] Pulse Rate [ 84 Right Radial] Respiratory 17 15 Rate Respiratory Rate [Anterior Bilateral Throughout] Blood Pressure 154/73 148/74 O2 Sat by Pulse 99 98 Oximetry O2 Sat by Pulse Oximetry [ Assessment] 09/20/17 09/20/17 09/20/17 04:25 05:00 06:00 Temperature Pulse Rate 89 95 H Pulse Rate [ 17 L Anterior Bilateral Throughout] Pulse Rate [ Left Dorsalis Pedis] Pulse Rate [ Left Radial] Pulse Rate [ Right Dorsalis Pedis] Pulse Rate [ Right Radial] Respiratory 18 19 Rate Respiratory Rate [Anterior Bilateral Throughout] Blood Pressure 147/77 161/77 O2 Sat by Pulse 99 98 Oximetry O2 Sat by Pulse Oximetry [ Assessment] 09/20/17 09/20/17 09/20/17 07:00 08:00 08:46 Temperature 98.4 F Pulse Rate 82 79 Pulse Rate [ 78 Anterior Bilateral Throughout] Pulse Rate [ Left Dorsalis Pedis] Pulse Rate [ Left Radial] Pulse Rate [ Right Dorsalis Pedis] Pulse Rate [ Right Radial] Respiratory 14 12 Rate Respiratory 19 Rate [Anterior Bilateral Throughout] Blood Pressure 146/79 159/73 O2 Sat by Pulse 100 100 Oximetry O2 Sat by Pulse Oximetry [ Assessment] 09/20/17 09/20/17 09:17 09:22 Temperature Pulse Rate Pulse Rate [ 86 Anterior Bilateral Throughout] Pulse Rate [ Left Dorsalis Pedis] Pulse Rate [ Left Radial] Pulse Rate [ Right Dorsalis Pedis] Pulse Rate [ Right Radial] Respiratory Rate Respiratory 22 Rate [Anterior Bilateral Throughout] Blood Pressure O2 Sat by Pulse 97 Oximetry O2 Sat by Pulse Oximetry [ Assessment] Constitutional: no acute distress, alert, other (elderly looking slightly obese CM; normocephalic s/p trach to ATP) Eyes: non-icteric ENT: oropharynx moist, other (s/p tracheostomy to ATP) Neck: supple, no lymphadenopathy, other (no thyromegaly) Effort: normal Ascultation: Bilateral: diminished breath sounds, rhonchi Percussion: Bilateral: dull (bases) Cardiovascular: irregular rhythm, other (S1,S2, no rubs or murmurs) Gastrointestinal: normoactive bowel sounds, soft, non-tender, other (midline arpan with GJ in place, mildly distended, G portio to gravity bag) Integumentary: normal Extremities: no cyanosis, pink and warm, pulses normal, no ischemia or petechiae , edema Neurologic: non-focal exam (grossly), pupils equal and round, CN II-XII normal, motor strength normal and (weak), other (mouths words and responds appropriately to questions) Psychiatric: mood appropriate, affect normal CBC and BMP: 09/20/17 06:00 09/20/17 06:00 ABG, PT/INR, D-dimer: ABG POC ABG pH 7.496 (7.35-7.45) H 09/19/17 06:52 POC ABG pCO2 31.9 (35-45) L 09/19/17 06:52 POC ABG pO2 97 (80-105) 09/19/17 06:52 POC ABG HCO3 24.6 09/19/17 06:52 POC ABG Total CO2 26 09/19/17 06:52 POC ABG O2 Sat 98 09/19/17 06:52 PT/INR, D-dimer PT 16.2 Sec. (12.2-14.9) H 09/18/17 03:46 INR 1.23 (0.87-1.13) H 09/18/17 03:46 Abnormal lab findings: Abnormal Labs 09/12/17 09/13/17 09/13/17 22:56 03:08 05:20 WBC RBC 3.60 L Hgb 11.5 L Hct 34.4 L MCV 95 H MCHC RDW 19.8 H Plt Count 83 L Seg Neuts % (Manual) Lymphocytes % (Manual) 11.0 L Nucleated RBC % Seg Neutrophils # Man Lymphocytes # (Manual) 0.7 L PT INR APTT POC ABG pH 7.280 L POC ABG pCO2 46.4 H POC ABG pO2 110 H Sodium Potassium Chloride Carbon Dioxide BUN Creatinine Glucose POC Glucose 135 H Lactic Acid Calcium Phosphorus Total Bilirubin AST ALT Alkaline Phosphatase C-Reactive Protein Total Protein Albumin Prealbumin Urine WBC (Auto) Urine Creatinine Urine Total Protein Crossmatch 09/13/17 09/13/17 09/13/17 05:20 14:47 14:47 WBC RBC Hgb Hct MCV MCHC RDW Plt Count Seg Neuts % (Manual) Lymphocytes % (Manual) Nucleated RBC % Seg Neutrophils # Man Lymphocytes # (Manual) PT INR APTT POC ABG pH POC ABG pCO2 POC ABG pO2 Sodium Potassium 5.2 H Chloride 109.6 H Carbon Dioxide 20 L BUN 54 H Creatinine 2.3 H Glucose POC Glucose Lactic Acid Calcium 7.8 L Phosphorus 6.20 H Total Bilirubin AST ALT Alkaline Phosphatase C-Reactive Protein Total Protein Albumin Prealbumin 0.050 L Urine WBC (Auto) 30.0 H Urine Creatinine 180.6 H Urine Total Protein 289 H Crossmatch 09/13/17 09/13/17 09/13/17 14:54 14:54 17:04 WBC RBC Hgb Hct MCV MCHC RDW Plt Count Seg Neuts % (Manual) Lymphocytes % (Manual) Nucleated RBC % Seg Neutrophils # Man Lymphocytes # (Manual) PT INR APTT POC ABG pH POC ABG pCO2 POC ABG pO2 Sodium Potassium Chloride Carbon Dioxide BUN Creatinine Glucose POC Glucose 114 H Lactic Acid 2.20 H* Calcium Phosphorus Total Bilirubin AST ALT Alkaline Phosphatase C-Reactive Protein 33.10 H Total Protein Albumin Prealbumin Urine WBC (Auto) Urine Creatinine Urine Total Protein Crossmatch 09/13/17 09/13/17 09/14/17 19:40 23:49 04:07 WBC RBC Hgb Hct MCV MCHC RDW Plt Count Seg Neuts % (Manual) Lymphocytes % (Manual) Nucleated RBC % Seg Neutrophils # Man Lymphocytes # (Manual) PT INR APTT POC ABG pH 7.332 L POC ABG pCO2 34.3 L POC ABG pO2 76 L Sodium Potassium Chloride Carbon Dioxide BUN Creatinine Glucose POC Glucose 115 H Lactic Acid 2.20 H* Calcium Phosphorus Total Bilirubin AST ALT Alkaline Phosphatase C-Reactive Protein Total Protein Albumin Prealbumin Urine WBC (Auto) Urine Creatinine Urine Total Protein Crossmatch 09/14/17 09/14/17 09/14/17 05:15 05:15 05:35 WBC RBC Hgb Hct MCV MCHC RDW Plt Count Seg Neuts % (Manual) Lymphocytes % (Manual) Nucleated RBC % Seg Neutrophils # Man Lymphocytes # (Manual) PT INR APTT POC ABG pH POC ABG pCO2 POC ABG pO2 Sodium Potassium Chloride 107.5 H Carbon Dioxide 18 L BUN 77 H Creatinine 3.0 H Glucose 185 H POC Glucose 196 H Lactic Acid Calcium 7.3 L Phosphorus 7.80 H D Total Bilirubin 2.50 H AST 991 H ALT 1757 H Alkaline Phosphatase C-Reactive Protein Total Protein 4.1 L Albumin 1.8 L Prealbumin Urine WBC (Auto) Urine Creatinine Urine Total Protein Crossmatch 09/14/17 09/14/17 09/14/17 12:17 18:08 23:55 WBC RBC Hgb Hct MCV MCHC RDW Plt Count Seg Neuts % (Manual) Lymphocytes % (Manual) Nucleated RBC % Seg Neutrophils # Man Lymphocytes # (Manual) PT INR APTT POC ABG pH POC ABG pCO2 POC ABG pO2 Sodium Potassium Chloride Carbon Dioxide BUN Creatinine Glucose POC Glucose 212 H 242 H 231 H Lactic Acid Calcium Phosphorus Total Bilirubin AST ALT Alkaline Phosphatase C-Reactive Protein Total Protein Albumin Prealbumin Urine WBC (Auto) Urine Creatinine Urine Total Protein Crossmatch 09/15/17 09/15/17 09/15/17 04:12 05:50 06:00 WBC RBC 2.62 L Hgb 8.3 L D Hct 25.8 L D MCV 98 H MCHC RDW 20.1 H Plt Count 50 L Seg Neuts % (Manual) 82.0 H Lymphocytes % (Manual) 6.0 L Nucleated RBC % Seg Neutrophils # Man Lymphocytes # (Manual) 0.5 L PT INR APTT POC ABG pH 7.252 L POC ABG pCO2 POC ABG pO2 Sodium Potassium Chloride Carbon Dioxide BUN Creatinine Glucose POC Glucose 240 H Lactic Acid Calcium Phosphorus Total Bilirubin AST ALT Alkaline Phosphatase C-Reactive Protein Total Protein Albumin Prealbumin Urine WBC (Auto) Urine Creatinine Urine Total Protein Crossmatch 09/15/17 09/15/17 09/15/17 06:00 11:17 15:11 WBC RBC Hgb Hct MCV MCHC RDW Plt Count Seg Neuts % (Manual) Lymphocytes % (Manual) Nucleated RBC % Seg Neutrophils # Man Lymphocytes # (Manual) PT INR APTT POC ABG pH POC ABG pCO2 POC ABG pO2 Sodium 136 L Potassium Chloride Carbon Dioxide 17 L BUN 98 H Creatinine 3.9 H Glucose 207 H POC Glucose 215 H 238 H Lactic Acid Calcium 7.4 L Phosphorus 7.80 H Total Bilirubin 1.50 H AST 357 H ALT 1308 H Alkaline Phosphatase C-Reactive Protein Total Protein 4.2 L Albumin 1.7 L Prealbumin Urine WBC (Auto) Urine Creatinine Urine Total Protein Crossmatch 09/15/17 09/15/17 09/15/17 17:52 17:52 17:52 WBC 11.4 H RBC 2.91 L Hgb 8.8 L Hct 29.0 L MCV 100 H MCHC 31 L RDW 20.6 H Plt Count 46 L Seg Neuts % (Manual) Lymphocytes % (Manual) Nucleated RBC % Seg Neutrophils # Man Lymphocytes # (Manual) PT 16.5 H INR 1.26 H APTT 38.7 H POC ABG pH POC ABG pCO2 POC ABG pO2 Sodium 136 L Potassium Chloride Carbon Dioxide 16 L BUN 100 H Creatinine 3.8 H Glucose 220 H POC Glucose Lactic Acid Calcium 7.3 L Phosphorus Total Bilirubin 1.50 H AST 263 H ALT 1236 H Alkaline Phosphatase C-Reactive Protein Total Protein 4.3 L Albumin 2.0 L Prealbumin Urine WBC (Auto) Urine Creatinine Urine Total Protein Crossmatch 09/15/17 09/15/17 09/16/17 18:12 23:34 05:22 WBC RBC Hgb Hct MCV MCHC RDW Plt Count Seg Neuts % (Manual) Lymphocytes % (Manual) Nucleated RBC % Seg Neutrophils # Man Lymphocytes # (Manual) PT INR APTT POC ABG pH POC ABG pCO2 POC ABG pO2 Sodium Potassium Chloride Carbon Dioxide BUN Creatinine Glucose POC Glucose 276 H 275 H 306 H Lactic Acid Calcium Phosphorus Total Bilirubin AST ALT Alkaline Phosphatase C-Reactive Protein Total Protein Albumin Prealbumin Urine WBC (Auto) Urine Creatinine Urine Total Protein Crossmatch 09/16/17 09/16/17 09/16/17 06:15 06:15 12:10 WBC RBC 2.75 L Hgb 8.8 L Hct 27.1 L MCV 99 H MCHC RDW 20.2 H Plt Count 42 L Seg Neuts % (Manual) 93.0 H Lymphocytes % (Manual) 3.0 L Nucleated RBC % Seg Neutrophils # Man 8.5 H Lymphocytes # (Manual) 0.3 L PT INR APTT POC ABG pH POC ABG pCO2 POC ABG pO2 Sodium 136 L Potassium Chloride Carbon Dioxide 15 L BUN 110 H Creatinine 4.1 H Glucose 265 H POC Glucose 277 H Lactic Acid Calcium 7.6 L Phosphorus 9.00 H Total Bilirubin 1.30 H AST 227 H ALT 966 H Alkaline Phosphatase C-Reactive Protein Total Protein 4.3 L Albumin 1.8 L Prealbumin Urine WBC (Auto) Urine Creatinine Urine Total Protein Crossmatch 09/16/17 09/16/17 09/16/17 13:07 17:33 23:42 WBC RBC Hgb Hct MCV MCHC RDW Plt Count Seg Neuts % (Manual) Lymphocytes % (Manual) Nucleated RBC % Seg Neutrophils # Man Lymphocytes # (Manual) PT INR APTT POC ABG pH 7.175 L POC ABG pCO2 POC ABG pO2 71 L Sodium Potassium Chloride Carbon Dioxide BUN Creatinine Glucose POC Glucose 289 H 262 H Lactic Acid Calcium Phosphorus Total Bilirubin AST ALT Alkaline Phosphatase C-Reactive Protein Total Protein Albumin Prealbumin Urine WBC (Auto) Urine Creatinine Urine Total Protein Crossmatch 09/17/17 09/17/17 09/17/17 05:30 05:30 05:39 WBC RBC 2.39 L Hgb 7.4 L Hct 23.0 L MCV 96 H MCHC RDW 19.6 H Plt Count 24 L Seg Neuts % (Manual) 76.0 H Lymphocytes % (Manual) 5.0 L Nucleated RBC % Seg Neutrophils # Man Lymphocytes # (Manual) 0.4 L PT INR APTT POC ABG pH POC ABG pCO2 POC ABG pO2 Sodium Potassium Chloride Carbon Dioxide BUN 93 H Creatinine 3.6 H Glucose 201 H POC Glucose 218 H Lactic Acid Calcium 7.5 L Phosphorus 6.10 H D Total Bilirubin AST 62 H ALT 619 H Alkaline Phosphatase C-Reactive Protein Total Protein 4.1 L Albumin 1.7 L Prealbumin Urine WBC (Auto) Urine Creatinine Urine Total Protein Crossmatch 09/17/17 09/17/17 09/17/17 10:45 11:31 17:46 WBC RBC Hgb Hct MCV MCHC RDW Plt Count Seg Neuts % (Manual) Lymphocytes % (Manual) Nucleated RBC % Seg Neutrophils # Man Lymphocytes # (Manual) PT INR APTT POC ABG pH POC ABG pCO2 POC ABG pO2 Sodium Potassium Chloride Carbon Dioxide BUN Creatinine Glucose POC Glucose 221 H 209 H Lactic Acid Calcium Phosphorus Total Bilirubin AST ALT Alkaline Phosphatase C-Reactive Protein Total Protein Albumin Prealbumin Urine WBC (Auto) Urine Creatinine Urine Total Protein Crossmatch See Detail 09/18/17 09/18/17 09/18/17 00:05 03:46 03:46 WBC RBC 3.05 L Hgb 9.5 L Hct 28.2 L MCV MCHC RDW 19.0 H Plt Count 29 L Seg Neuts % (Manual) 81.0 H Lymphocytes % (Manual) 7.0 L Nucleated RBC % 3.0 H Seg Neutrophils # Man Lymphocytes # (Manual) 0.6 L PT 16.2 H INR 1.23 H APTT POC ABG pH POC ABG pCO2 POC ABG pO2 Sodium Potassium Chloride Carbon Dioxide BUN Creatinine Glucose POC Glucose 168 H Lactic Acid Calcium Phosphorus Total Bilirubin AST ALT Alkaline Phosphatase C-Reactive Protein Total Protein Albumin Prealbumin Urine WBC (Auto) Urine Creatinine Urine Total Protein Crossmatch 09/18/17 09/18/17 09/18/17 03:46 04:59 05:54 WBC RBC Hgb Hct MCV MCHC RDW Plt Count Seg Neuts % (Manual) Lymphocytes % (Manual) Nucleated RBC % Seg Neutrophils # Man Lymphocytes # (Manual) PT INR APTT POC ABG pH POC ABG pCO2 POC ABG pO2 75 L Sodium Potassium 3.4 L Chloride 97.2 L Carbon Dioxide BUN 73 H Creatinine 3.1 H Glucose 160 H POC Glucose 202 H Lactic Acid Calcium 7.6 L Phosphorus 4.60 H D Total Bilirubin AST ALT 446 H Alkaline Phosphatase 136 H C-Reactive Protein Total Protein 4.5 L Albumin 1.9 L Prealbumin Urine WBC (Auto) Urine Creatinine Urine Total Protein Crossmatch 09/18/17 09/18/17 09/18/17 10:52 13:14 18:34 WBC RBC Hgb Hct MCV MCHC RDW Plt Count Seg Neuts % (Manual) Lymphocytes % (Manual) Nucleated RBC % Seg Neutrophils # Man Lymphocytes # (Manual) PT INR APTT POC ABG pH POC ABG pCO2 POC ABG pO2 Sodium Potassium Chloride Carbon Dioxide BUN Creatinine Glucose POC Glucose 179 H 177 H 177 H Lactic Acid Calcium Phosphorus Total Bilirubin AST ALT Alkaline Phosphatase C-Reactive Protein Total Protein Albumin Prealbumin Urine WBC (Auto) Urine Creatinine Urine Total Protein Crossmatch 09/18/17 09/18/17 09/19/17 20:25 23:49 04:15 WBC RBC 3.11 L Hgb 9.8 L Hct 28.4 L MCV MCHC 35 H RDW 19.4 H Plt Count 34 L Seg Neuts % (Manual) 71.0 H Lymphocytes % (Manual) 6.0 L Nucleated RBC % Seg Neutrophils # Man Lymphocytes # (Manual) 0.6 L PT INR APTT POC ABG pH POC ABG pCO2 POC ABG pO2 69 L Sodium Potassium Chloride Carbon Dioxide BUN Creatinine Glucose POC Glucose 158 H Lactic Acid Calcium Phosphorus Total Bilirubin AST ALT Alkaline Phosphatase C-Reactive Protein Total Protein Albumin Prealbumin Urine WBC (Auto) Urine Creatinine Urine Total Protein Crossmatch 09/19/17 09/19/17 09/19/17 04:15 05:23 06:52 WBC RBC Hgb Hct MCV MCHC RDW Plt Count Seg Neuts % (Manual) Lymphocytes % (Manual) Nucleated RBC % Seg Neutrophils # Man Lymphocytes # (Manual) PT INR APTT POC ABG pH 7.496 H POC ABG pCO2 31.9 L POC ABG pO2 Sodium 136 L Potassium 3.2 L Chloride 94.5 L Carbon Dioxide BUN 72 H Creatinine 2.9 H Glucose 149 H POC Glucose 153 H Lactic Acid Calcium 8.0 L Phosphorus Total Bilirubin AST ALT 300 H Alkaline Phosphatase 169 H C-Reactive Protein Total Protein 4.5 L Albumin 2.0 L Prealbumin Urine WBC (Auto) Urine Creatinine Urine Total Protein Crossmatch 09/19/17 09/19/17 09/19/17 11:43 17:59 23:33 WBC RBC Hgb Hct MCV MCHC RDW Plt Count Seg Neuts % (Manual) Lymphocytes % (Manual) Nucleated RBC % Seg Neutrophils # Man Lymphocytes # (Manual) PT INR APTT POC ABG pH POC ABG pCO2 POC ABG pO2 Sodium Potassium Chloride Carbon Dioxide BUN Creatinine Glucose POC Glucose 117 H 133 H 124 H Lactic Acid Calcium Phosphorus Total Bilirubin AST ALT Alkaline Phosphatase C-Reactive Protein Total Protein Albumin Prealbumin Urine WBC (Auto) Urine Creatinine Urine Total Protein Crossmatch 09/20/17 09/20/17 09/20/17 05:27 06:00 06:00 WBC RBC 3.26 L Hgb 10.0 L Hct 30.3 L MCV MCHC RDW 19.3 H Plt Count 34 L Seg Neuts % (Manual) Lymphocytes % (Manual) Nucleated RBC % Seg Neutrophils # Man Lymphocytes # (Manual) PT INR APTT POC ABG pH POC ABG pCO2 POC ABG pO2 Sodium 136 L Potassium 3.2 L Chloride 93.7 L Carbon Dioxide BUN 89 H Creatinine 3.6 H Glucose 113 H POC Glucose 115 H Lactic Acid Calcium 8.2 L Phosphorus 5.00 H Total Bilirubin AST ALT 214 H Alkaline Phosphatase 156 H C-Reactive Protein Total Protein 4.6 L Albumin 1.8 L Prealbumin Urine WBC (Auto) Urine Creatinine Urine Total Protein Crossmatch Allied health notes reviewed: nursing (Holding off on PT evaluation until after HD)
[2017-09-20 11:49] LABS: Basophils % (Manual) 0 % (0.0-1.8); Total Cells Counted 100
[2017-09-20 11:50] LABS: Anisocytosis 1+; Platelet Estimate Consistent w Auto
--- NOTE | 2017-09-20 14:19 | Progress Note ---
Assessment and Plan Sepsis with septic shock improving Continue with iv antibiotic per ID Cautious iv hydration b/c of Acute on chronic renal failure now on HD - Peritonitis from dislodged PEG tube and sepsis - resolving s/p lap with peritoneal lavage and repair of gastrostomy, removal of PEG tube Continue with iv levquin, Flagyl and diflucan - Gangerous gallbaldder s/p cholecyctectomy - Acute on Chronic renal failure requiring HD Improving. improving - Acute on chronic respiratory failure Off Mechanical ventilation via trach during the day only continue with bronchodilator Pulm Following - Hypokalemia: Will defer to nephrology for correction - Anemia - of chronic disease s/p blood transfusion - Transaminasemia from gangerous gall bladder s/p cholecyctectomy improving Will trend. anticipate improvement with iv hydration - Possible HIT Off heparin Hematology following - DVT PPX with lovenox Subjective Date of service: 09/20/17 Principal diagnosis: [place] on chr. hypoxemic respr. failure, sepsis, Interval history: Pt seen and examined. s/p Closure of abdominal wound with cholecyctectomy of gangrenous gall bladder. Afebril. Still in ICU. Discussed with nursing staff. No overnight event reported to me. Off pressors. Objective - Exam Narrative Exam: Constitutional: Now off mechanical ventilation through tracheostomy during the daybut back on it at night. Afebrile. Awake Head: Normocephalic atraumatic Eyes: Pupils are equal round and reactive to light Nose: No enlarged turbinates, no septal deviation. Mouth: Moist mucous membranes. Neck: Supple no thyromegaly. No bruit. No JVD. tach tube in place Heart: Regular rate and rhythm, S1-S2 abnormal. No rubs murmurs or gallop Lungs: Decreased breath sound bilaterally. No rhonchi Abdomen: Soft, Dry surgical wound dressing nontender. PEG tube in place Extremities: 2+ edema no cyanosis and no clubbing. Neuro: Alert oriented Oriented x1. No focal sensory or motor deficit. Skin: No rashes no hyperemic spots Psychiatry: Euthymic. Calm. - Constitutional Vitals: Vital Signs - 12hr 09/20/17 09/20/17 09/20/17 03:00 03:45 04:00 Temperature 97.7 F Pulse Rate 78 77 Pulse Rate [ Anterior Bilateral Throughout] Pulse Rate [ 84 Left Dorsalis Pedis] Pulse Rate [ 84 Left Radial] Pulse Rate [ 78 Right Dorsalis Pedis] Pulse Rate [ 84 Right Radial] Respiratory 17 15 Rate Respiratory Rate [Anterior Bilateral Throughout] Blood Pressure 154/73 148/74 O2 Sat by Pulse 99 98 Oximetry 09/20/17 09/20/17 09/20/17 04:25 05:00 06:00 Temperature Pulse Rate 89 95 H Pulse Rate [ 17 L Anterior Bilateral Throughout] Pulse Rate [ Left Dorsalis Pedis] Pulse Rate [ Left Radial] Pulse Rate [ Right Dorsalis Pedis] Pulse Rate [ Right Radial] Respiratory 18 19 Rate Respiratory Rate [Anterior Bilateral Throughout] Blood Pressure 147/77 161/77 O2 Sat by Pulse 99 98 Oximetry 09/20/17 09/20/17 09/20/17 07:00 08:00 08:46 Temperature 98.4 F Pulse Rate 82 79 Pulse Rate [ 78 Anterior Bilateral Throughout] Pulse Rate [ Left Dorsalis Pedis] Pulse Rate [ Left Radial] Pulse Rate [ Right Dorsalis Pedis] Pulse Rate [ Right Radial] Respiratory 14 12 Rate Respiratory 19 Rate [Anterior Bilateral Throughout] Blood Pressure 146/79 159/73 O2 Sat by Pulse 100 100 Oximetry 09/20/17 09/20/17 09/20/17 09:17 09:22 12:00 Temperature 97.9 F Pulse Rate Pulse Rate [ 86 Anterior Bilateral Throughout] Pulse Rate [ Left Dorsalis Pedis] Pulse Rate [ Left Radial] Pulse Rate [ Right Dorsalis Pedis] Pulse Rate [ Right Radial] Respiratory Rate Respiratory 22 Rate [Anterior Bilateral Throughout] Blood Pressure O2 Sat by Pulse 97 Oximetry 09/20/17 12:26 Temperature Pulse Rate Pulse Rate [ Anterior Bilateral Throughout] Pulse Rate [ Left Dorsalis Pedis] Pulse Rate [ Left Radial] Pulse Rate [ Right Dorsalis Pedis] Pulse Rate [ Right Radial] Respiratory Rate Respiratory Rate [Anterior Bilateral Throughout] Blood Pressure O2 Sat by Pulse 95 Oximetry - Labs CBC & Chem 7: 09/20/17 06:00 09/20/17 06:00 Labs: Abnormal lab results 09/19/17 09/19/17 09/20/17 Range/Units 17:59 23:33 05:27 RBC (3.65-5.03) M/mm3 Hgb (11.8-15.2) gm/dl Hct (35.5-45.6) % RDW (13.2-15.2) % Plt Count (140-440) K/mm3 Seg Neuts % (Manual) (40.0-70.0) % Lymphocytes % (Manual) (13.4-35.0) % Seg Neutrophils # Man (1.8-7.7) K/mm3 Lymphocytes # (Manual) (1.2-5.4) K/mm3 Sodium (137-145) mmol/L Potassium (3.6-5.0) mmol/L Chloride (98-107) mmol/L BUN (9-20) mg/dL Creatinine (0.8-1.5) mg/dL Glucose (75-100) mg/dL POC Glucose 133 H 124 H 115 H (70-105) Calcium (8.4-10.2) mg/dL Phosphorus (2.5-4.5) mg/dL ALT (7-56) units/L Alkaline Phosphatase (35-129) units/L Total Protein (6.3-8.2) g/dL Albumin (3.9-5) g/dL 09/20/17 09/20/17 09/20/17 Range/Units 06:00 06:00 11:40 RBC 3.26 L (3.65-5.03) M/mm3 Hgb 10.0 L (11.8-15.2) gm/dl Hct 30.3 L (35.5-45.6) % RDW 19.3 H (13.2-15.2) % Plt Count 34 L (140-440) K/mm3 Seg Neuts % (Manual) 93.0 H (40.0-70.0) % Lymphocytes % (Manual) 3.0 L (13.4-35.0) % Seg Neutrophils # Man 9.0 H (1.8-7.7) K/mm3 Lymphocytes # (Manual) 0.3 L (1.2-5.4) K/mm3 Sodium 136 L (137-145) mmol/L Potassium 3.2 L (3.6-5.0) mmol/L Chloride 93.7 L (98-107) mmol/L BUN 89 H (9-20) mg/dL Creatinine 3.6 H (0.8-1.5) mg/dL Glucose 113 H (75-100) mg/dL POC Glucose 125 H (70-105) Calcium 8.2 L (8.4-10.2) mg/dL Phosphorus 5.00 H (2.5-4.5) mg/dL ALT 214 H (7-56) units/L Alkaline Phosphatase 156 H (35-129) units/L Total Protein 4.6 L (6.3-8.2) g/dL Albumin 1.8 L (3.9-5) g/dL
--- NOTE | 2017-09-20 14:41 | Progress Note ---
Assessment and Plan Continue amiodarone by PEG tube,rate under control,B.P is stable. Consider addition of IV lopressor if necessary for BP optimization. Volume optimization per nephrology. No systemic anticoagulation at this time in regards to atrial fibrillation in setting of anemia, thrombocytopenia and recent bleeding. 09/20/2017>in atrial fibrillation with controlled VR. - Patient Problems (1) Atrial fibrillation with RVR Current Visit: Yes Status: Acute (2) Cardiomyopathy Current Visit: Yes Status: Acute (3) Peritonitis Current Visit: Yes Status: Acute (4) Severe sepsis with septic shock Current Visit: Yes Status: Acute (5) Atherosclerosis of [place] arteries of extremity with intermittent claudication Current Visit: No Status: Acute (6) Acute renal failure Current Visit: Yes Status: Acute Qualifiers: Acute renal failure type: with acute tubular necrosis Qualified Code(s): N17.0 - Acute kidney failure with tubular necrosis (7) Dislodged gastrostomy tube Current Visit: Yes Status: Acute (8) Acute respiratory failure with hypoxia Current Visit: Yes Status: Acute Subjective Principal diagnosis: Acaute on chr. hypoxemic respr. failure, sepsis, Interval history: Patient with tracheostomy,comfortable. Objective Vital Signs Temp Pulse Pulse Pulse Pulse Pulse Pulse 09/20/17 12:26 09/20/17 12:00 97.9 F 09/20/17 09:22 09/20/17 09:17 86 09/20/17 08:46 78 09/20/17 08:00 98.4 F 79 09/20/17 07:00 82 09/20/17 06:00 95 H 09/20/17 05:00 89 09/20/17 04:25 17 L 09/20/17 04:00 77 84 84 78 84 09/20/17 03:45 97.7 F 09/20/17 03:00 78 09/20/17 02:00 83 09/20/17 01:00 80 09/20/17 00:08 79 09/20/17 00:00 80 84 84 78 84 09/19/17 23:10 98.4 F 09/19/17 23:00 76 09/19/17 22:01 75 09/19/17 22:00 76 09/19/17 21:40 12 L 09/19/17 21:10 82 09/19/17 21:06 76 09/19/17 21:02 82 09/19/17 21:00 77 09/19/17 20:00 98.1 F 81 84 84 86 84 09/19/17 19:00 77 09/19/17 18:00 76 09/19/17 17:00 68 09/19/17 16:00 85 84 84 81 84 09/19/17 15:47 94 H 09/19/17 15:30 98.3 F 79 09/19/17 15:26 09/19/17 15:00 84 Resp Resp BP Pulse Ox Pulse Ox 09/20/17 12:26 95 09/20/17 12:00 09/20/17 09:22 97 09/20/17 09:17 22 09/20/17 08:46 19 09/20/17 08:00 12 159/73 100 09/20/17 07:00 14 146/79 100 09/20/17 06:00 19 161/77 98 09/20/17 05:00 18 147/77 99 09/20/17 04:25 09/20/17 04:00 15 148/74 98 09/20/17 03:45 09/20/17 03:00 17 154/73 99 09/20/17 02:00 18 155/80 99 09/20/17 01:00 17 160/79 99 09/20/17 00:08 154/80 97 09/20/17 00:00 15 154/80 98 09/19/17 23:10 09/19/17 23:00 17 160/71 94 09/19/17 22:01 17 158/62 98 09/19/17 22:00 17 163/68 98 09/19/17 21:40 15 09/19/17 21:10 163/72 09/19/17 21:06 15 09/19/17 21:02 19 163/72 97 09/19/17 21:00 16 163/72 97 09/19/17 20:00 13 154/69 98 09/19/17 19:00 16 161/68 97 09/19/17 18:00 13 143/66 96 09/19/17 17:00 14 143/57 97 09/19/17 16:00 15 151/68 96 09/19/17 15:47 18 09/19/17 15:30 20 05/26/18 15:26 96 09/19/17 15:00 15 150/71 95 - Physical Examination General: No Apparent Distress, Other (trach in place.) HEENT: Positive: EOMI, Normocephaly, Mucus Membranes Moist Neck: Positive: neck supple, trachea midline Cardiac: Positive: irregularly irregular Lungs: Positive: Decreased Breath Sounds Neuro: Positive: Grossly Intact Abdomen: Positive: Soft, Active Bowel Sounds. Negative: Tender /Rectal: Other (Scrotum edematous.) Skin: Positive: Clear. Negative: Rash Musculoskeletal: Normal Range of Motion Extremities: Present: +1 Edema - Labs and Meds Cardiac Enzymes 09/20/17 Range/Units 06:00 AST 20 (5-40) units/L CBC 09/20/17 Range/Units 06:00 WBC 9.7 (4.5-11.0) K/mm3 RBC 3.26 L (3.65-5.03) M/mm3 Hgb 10.0 L (11.8-15.2) gm/dl Hct 30.3 L (35.5-45.6) % Plt Count 34 L (140-440) K/mm3 Comprehensive Metabolic Panel 09/20/17 Range/Units 06:00 Sodium 136 L (137-145) mmol/L Potassium 3.2 L (3.6-5.0) mmol/L Chloride 93.7 L (98-107) mmol/L Carbon Dioxide 24 (22-30) mmol/L BUN 89 H (9-20) mg/dL Creatinine 3.6 H (0.8-1.5) mg/dL Glucose 113 H (75-100) mg/dL Calcium 8.2 L (8.4-10.2) mg/dL AST 20 (5-40) units/L ALT 214 H (7-56) units/L Alkaline Phosphatase 156 H (35-129) units/L Total Protein 4.6 L (6.3-8.2) g/dL Albumin 1.8 L (3.9-5) g/dL - Imaging and Cardiology Echo: report reviewed (07/2017: EF 30-35%, impaired relaxation) - Allied health notes Allied health notes reviewed: nursing (Holding off on PT evaluation until after HD)
[2017-09-20] MEDS ORDERED: NORCO FEEDTUBE PRN (16:37)
--- NOTE | 2017-09-20 16:37 | Progress Note ---
Assessment and Plan - Patient Problems (1) Dislodged gastrostomy tube Current Visit: Yes Status: Acute Plan to address problem: 66-year-old male s/p and Exploratory laparotomy, peritoneal lavage, cholecystectomy, placement of gastrojejunal feeding tube, closure of abdomen. POD 5 Exploratory laparotomy, repair of gastrotomy, removal of PEG tube, peritoneal lavage, temporary closure of abdomen with Abthera Vac on 09/12/17 1. septic shock 2. dislodged PEG tube 3. intraabdominal infection 4. WILLIAM Plan: 1. neuro - prn pain control 2. CV - afib, cardiology on board. Off pressors. DVT ppx - SCDs. Plts slowly rising - heme c/s appreciated. Hgb stable. 3. Resp: weant vent per ICU team 4. GI: NPO, TPN. GJ tube - Discussed with Dr. Gross this AM. Keep G tube to gravity drainage to minimize risk of gastric distention. Spent a great of time trying to open J-tube. Tried initially flushing cola with small syringe. Then, left cola in tubing for about 1 hour. I tried again for about 20 minutes. Able to aspirate a small amount of tube feeds. Left more cola in the tubing. Nurse will continue to try. If tube unable to be opened, will try bolus feeds through G-tube tomorrow. If not well tolerated, will ask IR to change out tube once tract is more mature. 5. : barrientos for strict I/Os. HD per nephro. May DC barrientos when OK with nephro - d/w Dr. Chacon (urology) 6. Endo: accuchecks, ISS. 7. ID: c/w abx per ID recs 8. FEN: BMP in am. replace lytes as needed. c/w NPO. c/w TPN and TF Anticipate likely return to LTAC this week. Subjective Date of service: 09/20/17 Patient Reports: Positive: still having pain (unchanged), flatus, other ( feeding tube found to be clogged last night. ) Objective Vital Signs - 12hr 09/20/17 09/20/17 09/20/17 05:00 06:00 07:00 Temperature Pulse Rate 89 95 H 82 Pulse Rate [ Anterior Bilateral Throughout] Respiratory 18 19 14 Rate Respiratory Rate [Anterior Bilateral Throughout] Blood Pressure 147/77 161/77 146/79 O2 Sat by Pulse 99 98 100 Oximetry O2 Sat by Pulse Oximetry [ Assessment] 09/20/17 09/20/17 09/20/17 08:00 08:46 09:17 Temperature 98.4 F Pulse Rate 79 Pulse Rate [ 78 86 Anterior Bilateral Throughout] Respiratory 12 Rate Respiratory 19 22 Rate [Anterior Bilateral Throughout] Blood Pressure 159/73 O2 Sat by Pulse 100 Oximetry O2 Sat by Pulse Oximetry [ Assessment] 09/20/17 09/20/17 09/20/17 09:22 12:00 12:26 Temperature 97.9 F Pulse Rate Pulse Rate [ Anterior Bilateral Throughout] Respiratory Rate Respiratory Rate [Anterior Bilateral Throughout] Blood Pressure O2 Sat by Pulse 97 95 Oximetry O2 Sat by Pulse Oximetry [ Assessment] 09/20/17 09/20/17 09/20/17 15:20 15:44 15:53 Temperature Pulse Rate Pulse Rate [ 84 84 Anterior Bilateral Throughout] Respiratory Rate Respiratory 22 22 Rate [Anterior Bilateral Throughout] Blood Pressure O2 Sat by Pulse Oximetry O2 Sat by Pulse 93 Oximetry [ Assessment] - General physical appearance no distress, no pain, other (looks well) - Respiratory normal expansion, normal respiratory effort, other (secretions in airway) - Abdomen soft, distended (mild), not guarding, not rigid, wound (Incision C/D/I), other ( Bernardo tube in place. Small amount of bilious drainage from G-tube. Unable to flush J-tube. ) - Labs 09/20/17 06:00 09/20/17 06:00 Diabetes panel 09/20/17 Range/Units 06:00 Sodium 136 L (137-145) mmol/L Potassium 3.2 L (3.6-5.0) mmol/L Chloride 93.7 L (98-107) mmol/L Carbon Dioxide 24 (22-30) mmol/L BUN 89 H (9-20) mg/dL Creatinine 3.6 H (0.8-1.5) mg/dL Glucose 113 H (75-100) mg/dL Calcium 8.2 L (8.4-10.2) mg/dL AST 20 (5-40) units/L ALT 214 H (7-56) units/L Alkaline Phosphatase 156 H (35-129) units/L Total Protein 4.6 L (6.3-8.2) g/dL Albumin 1.8 L (3.9-5) g/dL Calcium panel 09/20/17 Range/Units 06:00 Calcium 8.2 L (8.4-10.2) mg/dL Phosphorus 5.00 H (2.5-4.5) mg/dL Albumin 1.8 L (3.9-5) g/dL Pituitary panel 09/20/17 Range/Units 06:00 Sodium 136 L (137-145) mmol/L Potassium 3.2 L (3.6-5.0) mmol/L Chloride 93.7 L (98-107) mmol/L Carbon Dioxide 24 (22-30) mmol/L BUN 89 H (9-20) mg/dL Creatinine 3.6 H (0.8-1.5) mg/dL Glucose 113 H (75-100) mg/dL Calcium 8.2 L (8.4-10.2) mg/dL Adrenal panel 09/20/17 Range/Units 06:00 Sodium 136 L (137-145) mmol/L Potassium 3.2 L (3.6-5.0) mmol/L Chloride 93.7 L (98-107) mmol/L Carbon Dioxide 24 (22-30) mmol/L BUN 89 H (9-20) mg/dL Creatinine 3.6 H (0.8-1.5) mg/dL Glucose 113 H (75-100) mg/dL Calcium 8.2 L (8.4-10.2) mg/dL Total Bilirubin 1.00 (0.1-1.2) mg/dL AST 20 (5-40) units/L ALT 214 H (7-56) units/L Alkaline Phosphatase 156 H (35-129) units/L Total Protein 4.6 L (6.3-8.2) g/dL Albumin 1.8 L (3.9-5) g/dL
[2017-09-20] MEDS: MAXIPIME 2 GM in NACL 0.9% 20 ML IV SCH (16:47)
[2017-09-20] MEDS ORDERED: TPN ADULT 1,800 ML IV SCH (20:00)
[2017-09-20] MEDS: DIFLUCAN 200 MG/100 ML BAG IV SCH (22:01)
[2017-09-21] MEDS: SODIUM CHLORIDE FLUSH SYRINGE 10 ML IV SCH ×3 (01:00→21:39)
[2017-09-21] MEDS: HumaLOG SUB-Q SCH ×5 (02:22→18:22)
[2017-09-21] MEDS: SUBLIMAZE IV PRN ×2 (05:46→22:48)
[2017-09-21] MEDS: FLAGYL 500 MG/100 ML 500 MG/100 ML BAG IV SCH ×3 (06:46→21:37)
[2017-09-21] MEDS: BROVANA NEBU IH SCH ×2 (08:58→20:03)
[2017-09-21] MEDS: PULMICORT IH SCH ×2 (08:58→20:03)
[2017-09-21] MEDS: DUONEB *Not for PRN Use IH SCH ×3 (08:58→15:38)
[2017-09-21] MEDS: LOPRESSOR PO SCH ×3 (09:16→21:38)
[2017-09-21] MEDS: LANTUS SUB-Q SCH (09:16)
[2017-09-21] MEDS: CORDARONE PO SCH ×3 (09:16→21:37)
[2017-09-21] MEDS ORDERED: PROTONIX FEEDTUBE SCH (10:00)
[2017-09-21] MEDS ORDERED: PEPCID IV SCH (10:00)
--- NOTE | 2017-09-21 10:27 | Progress Note ---
Assessment and Plan Sepsis with septic shock - resolved Continue with iv antibiotic per ID Cautious iv hydration b/c of Acute on chronic renal failure now on HD - Peritonitis from dislodged PEG tube and sepsis - resolving s/p lap with peritoneal lavage and repair of gastrostomy, removal of PEG tube Continue with iv levquin, Flagyl and diflucan - Gangerous gallbaldder s/p cholecyctectomy - Acute on Chronic renal failure requiring HD Improving. improving - Acute on chronic respiratory failure Off Mechanical ventilation via trach during the day only continue with bronchodilator Pulm Following - Hypokalemia: Will defer to nephrology for correction - Anemia - of chronic disease s/p blood transfusion - Transaminasemia from gangerous gall bladder s/p cholecyctectomy improving Will trend. anticipate improvement with iv hydration - Possible HIT Off heparin Hematology following - DVT PPX with lovenox Subjective Date of service: 09/21/17 Principal diagnosis: Acute on chr. hypoxemic respr. failure, sepsis, Interval history: Pt seen and examined. s/p Closure of abdominal wound with cholecyctectomy of gangrenous gall bladder. Still in ICU. Discussed with nursing staff. No overnight event reported to me. Off pressors. Awake Objective - Exam Narrative Exam: Constitutional: Now off mechanical ventilation through tracheostomy during the day but back on it at night. Awake Head: Normocephalic atraumatic Eyes: Pupils are equal round and reactive to light Nose: No enlarged turbinates, no septal deviation. Mouth: Moist mucous membranes. Neck: Supple no thyromegaly. No bruit. No JVD. trach tube in place Heart: Regular rate and rhythm, S1-S2 abnormal. No rubs murmurs or gallop Lungs: Decreased breath sound bilaterally. No rhonchi Abdomen: Soft, Dry surgical wound dressing nontender. PEG tube in place Extremities: 2+ edema no cyanosis and no clubbing. Neuro: Alert oriented Oriented x1. No focal sensory or motor deficit. Skin: No rashes no hyperemic spots Psychiatry: Euthymic. Calm. - Constitutional Vitals: Vital Signs - 12hr 09/20/17 09/20/17 09/20/17 23:00 23:31 23:32 Temperature Pulse Rate 72 72 Pulse Rate [ 75 Anterior Bilateral Throughout] Pulse Rate [ From Monitor] Respiratory 13 Rate Respiratory 20 Rate [Anterior Bilateral Throughout] Blood Pressure 140/72 140/72 O2 Sat by Pulse 97 94 Oximetry O2 Sat by Pulse Oximetry [ Anterior Bilateral Throughout] O2 Sat by Pulse 94 Oximetry [ Assessment] 09/20/17 09/21/17 09/21/17 23:48 00:00 01:00 Temperature 98.3 F Pulse Rate 71 69 Pulse Rate [ Anterior Bilateral Throughout] Pulse Rate [ 71 From Monitor] Respiratory 21 14 Rate Respiratory Rate [Anterior Bilateral Throughout] Blood Pressure 140/72 139/69 O2 Sat by Pulse 93 96 Oximetry O2 Sat by Pulse Oximetry [ Anterior Bilateral Throughout] O2 Sat by Pulse Oximetry [ Assessment] 09/21/17 09/21/17 09/21/17 02:00 03:00 04:00 Temperature 98.8 F Pulse Rate 78 78 84 Pulse Rate [ Anterior Bilateral Throughout] Pulse Rate [ From Monitor] Respiratory 11 L 14 12 Rate Respiratory Rate [Anterior Bilateral Throughout] Blood Pressure 144/73 138/76 134/73 O2 Sat by Pulse 99 100 Oximetry O2 Sat by Pulse Oximetry [ Anterior Bilateral Throughout] O2 Sat by Pulse Oximetry [ Assessment] 09/21/17 09/21/17 09/21/17 04:36 04:45 05:00 Temperature Pulse Rate 79 81 Pulse Rate [ Anterior Bilateral Throughout] Pulse Rate [ 79 From Monitor] Respiratory 20 20 Rate Respiratory Rate [Anterior Bilateral Throughout] Blood Pressure 134/73 144/71 O2 Sat by Pulse 98 98 94 Oximetry O2 Sat by Pulse Oximetry [ Anterior Bilateral Throughout] O2 Sat by Pulse Oximetry [ Assessment] 09/21/17 09/21/17 09/21/17 05:46 06:00 06:16 Temperature Pulse Rate 76 Pulse Rate [ Anterior Bilateral Throughout] Pulse Rate [ From Monitor] Respiratory 21 13 14 Rate Respiratory Rate [Anterior Bilateral Throughout] Blood Pressure 135/62 O2 Sat by Pulse 96 Oximetry O2 Sat by Pulse Oximetry [ Anterior Bilateral Throughout] O2 Sat by Pulse Oximetry [ Assessment] 09/21/17 09/21/17 09/21/17 08:58 09:30 09:37 Temperature Pulse Rate Pulse Rate [ 86 76 Anterior Bilateral Throughout] Pulse Rate [ From Monitor] Respiratory Rate Respiratory 19 20 Rate [Anterior Bilateral Throughout] Blood Pressure O2 Sat by Pulse 94 Oximetry O2 Sat by Pulse Oximetry [ Anterior Bilateral Throughout] O2 Sat by Pulse Oximetry [ Assessment] 09/21/17 09:40 Temperature 98.7 F Pulse Rate 78 Pulse Rate [ Anterior Bilateral Throughout] Pulse Rate [ From Monitor] Respiratory 12 Rate Respiratory Rate [Anterior Bilateral Throughout] Blood Pressure 138/64 O2 Sat by Pulse Oximetry O2 Sat by Pulse 95 Oximetry [ Anterior Bilateral Throughout] O2 Sat by Pulse Oximetry [ Assessment] - Labs CBC & Chem 7: 09/20/17 06:00 09/20/17 06:00 Labs: Abnormal lab results 09/20/17 09/20/17 09/20/17 Range/Units 06:00 11:40 18:24 Seg Neuts % (Manual) 93.0 H (40.0-70.0) % Lymphocytes % (Manual) 3.0 L (13.4-35.0) % Seg Neutrophils # Man 9.0 H (1.8-7.7) K/mm3 Lymphocytes # (Manual) 0.3 L (1.2-5.4) K/mm3 POC Glucose 125 H 188 H (70-105) 09/20/17 09/21/17 Range/Units 22:57 05:53 Seg Neuts % (Manual) (40.0-70.0) % Lymphocytes % (Manual) (13.4-35.0) % Seg Neutrophils # Man (1.8-7.7) K/mm3 Lymphocytes # (Manual) (1.2-5.4) K/mm3 POC Glucose 155 H 149 H (70-105)
--- NOTE | 2017-09-21 10:53 | Progress Note ---
Assessment and Plan Assessment: 1) Septic shock: off pressors; etiology - acute peritonitis +/- UTI 2) Acute peritonitis: from gastric content spill from dislodge PEG -CT showed pneumoperitoneum and PEG tube bumper outside of stomach. -S/P Exploratory laparotomy, repair of gastrotomy, removal of PEG tube, peritoneal lavage, temporary closure of abdomen with Abthera Vac on 09/13/17 3) WILLIAM 4) Acute encephalopathy 5) CA-UTI 6) History of Recent presumed VAP: Treated with cefepime/vano x 10 days. 7) History of Recent Acute respiratory failure: for airway protection - s/p trach 8) History of Right lower extremity chronic ischemia with short distance claudication: -S/P elective right common femoral endarterectomy with patch angioplasty, bilateral common iliac and right external artery stenting on 08/11/17 9) History of Ruptured pseudoaneurysm left groin/external iliac: -CTA showed retroperitoneal hemorrhage and bladder thickening. -S/P deployment of new Viabond stent graft across the inguinal ligament into the common femoral artery on 08/13/17. 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 11) Thrombocytopenia - worsening Plan: -continue cefepime D6/14 -continue flagyl and fluconazole D9/10 Dr Collins will be covering until 09/27/17 Thank you for your consultation, will follow up with you. Tasia Baldwin MD Infectious Diseases Specialist [facility] ([facility] M [phone] O [phone] Subjective Date of service: 09/21/17 Principal diagnosis: Acute on chr. hypoxemic respr. failure, sepsis, Interval history: Remains on the vent via trach A/C 40% p 6, alert, no fever or pressors this am. On TPN. 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 09/17 no growth Urine cultures: Respiratory cultures: 09/01 usual resp rudy Antibiotics: cefepime 09/16 metronidazole 09/12 fluconazole 09/12 Antibiotics: levaquin 09/12 vanco 09/16 Objective - Exam Narrative Exam: General appearance: sedated in NAD Eyes: anicteric sclerae, moist conjunctivae; no lid-lag; PERRLA HENT: Atraumatic; oropharynx limited Lungs: CTA, with normal respiratory effort and no intercostal retractions CV: RRR, no murmurs Abdomen: Soft, midline wound with wound VAC Extremities: No peripheral edema or extremity lymphadenopathy Skin: Normal temperature, turgor and texture; no rash, ulcers or subcutaneous nodules Psych: sedated Neuro: sedated Lines: barrientos, right PICC - Constitutional Vitals: Vital Signs Temp Pulse Resp BP Pulse Ox 98.7 F 78 12 148/64 95 09/21/17 09:40 09/21/17 10:30 09/21/17 09:40 09/21/17 10:30 09/21/17 09:40 Temperature -Last 24 Hours Temperature 98.7 F Temperature 98.8 F Temperature 98.3 F Temperature 98.2 F Temperature 98.1 F Temperature 97.9 F Temperature 97.9 F - Labs CBC & Chem 7: 09/20/17 06:00 09/20/17 06:00 Labs: Abnormal lab results 09/20/17 09/20/17 09/20/17 Range/Units 06:00 11:40 18:24 Seg Neuts % (Manual) 93.0 H (40.0-70.0) % Lymphocytes % (Manual) 3.0 L (13.4-35.0) % Seg Neutrophils # Man 9.0 H (1.8-7.7) K/mm3 Lymphocytes # (Manual) 0.3 L (1.2-5.4) K/mm3 POC Glucose 125 H 188 H (70-105) 09/20/17 09/21/17 Range/Units 22:57 05:53 Seg Neuts % (Manual) (40.0-70.0) % Lymphocytes % (Manual) (13.4-35.0) % Seg Neutrophils # Man (1.8-7.7) K/mm3 Lymphocytes # (Manual) (1.2-5.4) K/mm3 POC Glucose 155 H 149 H (70-105)
[2017-09-21] MEDS: MAXIPIME 2 GM in NACL 0.9% 20 ML IV SCH (13:01)
--- NOTE | 2017-09-21 13:48 | Progress Note ---
Assessment and Plan - Patient Problems (1) Dislodged gastrostomy tube Current Visit: Yes Status: Acute Plan to address problem: 66-year-old male s/p and Exploratory laparotomy, peritoneal lavage, cholecystectomy, placement of gastrojejunal feeding tube, closure of abdomen. POD 5 Exploratory laparotomy, repair of gastrotomy, removal of PEG tube, peritoneal lavage, temporary closure of abdomen with Abthera Vac on 09/12/17 1. septic shock 2. dislodged PEG tube 3. intraabdominal infection 4. WILLIAM Plan: 1. neuro - prn pain control 2. CV - afib, cardiology on board. Off pressors. DVT ppx - SCDs. Plts slowly rising - heme c/s appreciated. Hgb stable. 3. Resp: weant vent per ICU team 4. GI: NPO, TPN. GJ tube - J tube working again. Nutrition has increased free water flushes which we agree with. Will need to make sure that nephrology has no issue with the increase in free water. Will also order Coke to be flushed through the J-tube BID. Hopefully, that will keep the tube open. Advance J-tube feeds as tolerated to goal. 5. : barrientos for strict I/Os. HD per nephro. May DC barrientos when OK with nephro - d/w Dr. Chacon (urology) 6. Endo: accuchecks, ISS. 7. ID: c/w abx per ID recs 8. FEN: BMP in am. replace lytes as needed. c/w NPO. c/w TPN and TF Anticipate likely return to LTAC this week. Subjective Date of service: 09/21/17 Patient Reports: Positive: still having pain (Pt seems to indicate that he is having more pain in abdomen. ), flatus, other (Night nurse able to open up J- tube!) Objective Vital Signs - 12hr 09/21/17 09/21/17 09/21/17 02:00 03:00 04:00 Temperature 98.8 F Pulse Rate 78 78 84 Pulse Rate [ Anterior Bilateral Throughout] Pulse Rate [ From Monitor] Respiratory 11 L 14 12 Rate Respiratory Rate [Anterior Bilateral Throughout] Blood Pressure 144/73 138/76 134/73 O2 Sat by Pulse 99 100 Oximetry O2 Sat by Pulse Oximetry [ Anterior Bilateral Throughout] 09/21/17 09/21/17 09/21/17 04:36 04:45 05:00 Temperature Pulse Rate 79 81 Pulse Rate [ Anterior Bilateral Throughout] Pulse Rate [ 79 From Monitor] Respiratory 20 20 Rate Respiratory Rate [Anterior Bilateral Throughout] Blood Pressure 134/73 144/71 O2 Sat by Pulse 98 98 94 Oximetry O2 Sat by Pulse Oximetry [ Anterior Bilateral Throughout] 09/21/17 09/21/17 09/21/17 05:46 06:00 06:16 Temperature Pulse Rate 76 Pulse Rate [ Anterior Bilateral Throughout] Pulse Rate [ From Monitor] Respiratory 21 13 14 Rate Respiratory Rate [Anterior Bilateral Throughout] Blood Pressure 135/62 O2 Sat by Pulse 96 Oximetry O2 Sat by Pulse Oximetry [ Anterior Bilateral Throughout] 09/21/17 09/21/17 09/21/17 07:00 08:00 08:58 Temperature 98.2 F Pulse Rate 80 85 Pulse Rate [ 86 Anterior Bilateral Throughout] Pulse Rate [ 79 From Monitor] Respiratory 17 19 Rate Respiratory 19 Rate [Anterior Bilateral Throughout] Blood Pressure 143/71 146/67 O2 Sat by Pulse 98 Oximetry O2 Sat by Pulse Oximetry [ Anterior Bilateral Throughout] 09/21/17 09/21/17 09/21/17 09:00 09:30 09:37 Temperature Pulse Rate 84 Pulse Rate [ 76 Anterior Bilateral Throughout] Pulse Rate [ From Monitor] Respiratory 16 Rate Respiratory 20 Rate [Anterior Bilateral Throughout] Blood Pressure 124/74 O2 Sat by Pulse 94 Oximetry O2 Sat by Pulse Oximetry [ Anterior Bilateral Throughout] 09/21/17 09/21/17 09/21/17 09:40 09:55 10:00 Temperature 98.7 F Pulse Rate 78 74 73 Pulse Rate [ Anterior Bilateral Throughout] Pulse Rate [ From Monitor] Respiratory 12 13 Rate Respiratory Rate [Anterior Bilateral Throughout] Blood Pressure 138/64 134/65 140/69 O2 Sat by Pulse 95 Oximetry O2 Sat by Pulse 95 Oximetry [ Anterior Bilateral Throughout] 09/21/17 09/21/17 09/21/17 10:15 10:30 10:45 Temperature Pulse Rate 72 78 78 Pulse Rate [ Anterior Bilateral Throughout] Pulse Rate [ From Monitor] Respiratory Rate Respiratory Rate [Anterior Bilateral Throughout] Blood Pressure 138/70 148/64 152/71 O2 Sat by Pulse Oximetry O2 Sat by Pulse Oximetry [ Anterior Bilateral Throughout] 09/21/17 09/21/17 09/21/17 11:00 11:15 11:30 Temperature Pulse Rate 70 78 79 Pulse Rate [ Anterior Bilateral Throughout] Pulse Rate [ From Monitor] Respiratory 15 Rate Respiratory Rate [Anterior Bilateral Throughout] Blood Pressure 130/63 127/63 136/65 O2 Sat by Pulse 96 Oximetry O2 Sat by Pulse Oximetry [ Anterior Bilateral Throughout] 09/21/17 09/21/17 09/21/17 11:45 12:00 12:10 Temperature 97.6 F 97.9 F Pulse Rate 78 71 82 Pulse Rate [ Anterior Bilateral Throughout] Pulse Rate [ 79 From Monitor] Respiratory 12 16 Rate Respiratory Rate [Anterior Bilateral Throughout] Blood Pressure 137/64 134/64 151/76 O2 Sat by Pulse 97 Oximetry O2 Sat by Pulse 96 Oximetry [ Anterior Bilateral Throughout] 09/21/17 09/21/17 09/21/17 12:15 12:30 12:45 Temperature Pulse Rate 74 71 80 Pulse Rate [ Anterior Bilateral Throughout] Pulse Rate [ From Monitor] Respiratory Rate Respiratory Rate [Anterior Bilateral Throughout] Blood Pressure 136/62 146/65 149/76 O2 Sat by Pulse Oximetry O2 Sat by Pulse Oximetry [ Anterior Bilateral Throughout] 09/21/17 09/21/17 12:55 13:00 Temperature Pulse Rate 80 76 Pulse Rate [ Anterior Bilateral Throughout] Pulse Rate [ From Monitor] Respiratory 20 Rate Respiratory Rate [Anterior Bilateral Throughout] Blood Pressure 146/75 151/76 O2 Sat by Pulse 98 Oximetry O2 Sat by Pulse Oximetry [ Anterior Bilateral Throughout] - General physical appearance no distress, no pain, other (Looks better today. Face appears more relaxed.) - Eyes normal occular movement - Respiratory normal expansion, normal respiratory effort - Abdomen soft, not tender (Despite subject report of pain, he does not display any pain response to palpation. ), bowel sounds hypoactive, not guarding, not rigid, wound (C/D/I), other (Tube feeds currently running at 20cc/h through J tube) - Integumentary no rash, no growths, no abnormal pigmentation - Labs 09/20/17 06:00 09/20/17 06:00
--- NOTE | 2017-09-21 13:50 | Progress Note ---
Assessment and Plan Continue amiodarone by PEG tube,rate under control,B.P is stable. Consider addition of IV lopressor if necessary for BP optimization. Volume optimization per nephrology. No systemic anticoagulation at this time in regards to atrial fibrillation in setting of anemia, thrombocytopenia and recent bleeding. 09/20/2017>in atrial fibrillation with controlled VR. 09/21/2017>had dialysis this AM,stable B.P. - Patient Problems (1) Atrial fibrillation with RVR Current Visit: Yes Status: Acute (2) Cardiomyopathy Current Visit: Yes Status: Acute (3) Peritonitis Current Visit: Yes Status: Acute (4) Severe sepsis with septic shock Current Visit: Yes Status: Acute (5) Atherosclerosis of [place] arteries of extremity with intermittent claudication Current Visit: No Status: Acute (6) Acute renal failure Current Visit: Yes Status: Acute Qualifiers: Qualified Code(s): N17.0 - Acute kidney failure with tubular necrosis (7) Dislodged gastrostomy tube Current Visit: Yes Status: Acute (8) Acute respiratory failure with hypoxia Current Visit: Yes Status: Acute Subjective Date of service: 09/21/17 Principal diagnosis: Acute on chr. hypoxemic respr. failure, sepsis, Interval history: Patient with tracheostomy,breathing on his own,comfortable. Objective Vital Signs Temp Pulse Pulse Pulse Pulse Pulse Pulse 09/21/17 13:00 76 09/21/17 12:55 80 09/21/17 12:45 80 09/21/17 12:30 71 09/21/17 12:15 74 09/21/17 12:10 97.9 F 82 09/21/17 12:00 97.6 F 71 79 09/21/17 11:45 78 09/21/17 11:30 79 09/21/17 11:15 78 09/21/17 11:00 70 09/21/17 10:45 78 09/21/17 10:30 78 09/21/17 10:15 72 09/21/17 10:00 73 09/21/17 09:55 74 09/21/17 09:40 98.7 F 78 09/21/17 09:37 09/21/17 09:30 76 09/21/17 09:00 84 09/21/17 08:58 86 09/21/17 08:00 98.2 F 85 79 09/21/17 07:00 80 09/21/17 06:16 09/21/17 06:00 76 09/21/17 05:46 09/21/17 05:00 81 09/21/17 04:45 79 09/21/17 04:36 79 09/21/17 04:00 98.8 F 84 09/21/17 03:00 78 09/21/17 02:00 78 09/21/17 01:00 69 09/21/17 00:00 71 71 09/20/17 23:48 98.3 F 09/20/17 23:32 72 09/20/17 23:31 75 09/20/17 23:00 72 09/20/17 22:01 78 09/20/17 22:00 73 09/20/17 21:36 71 09/20/17 21:00 75 09/20/17 20:03 09/20/17 20:00 98.2 F 75 09/20/17 19:55 75 09/20/17 19:06 09/20/17 19:00 84 09/20/17 18:00 84 09/20/17 17:00 84 09/20/17 16:00 98.1 F 79 84 84 78 09/20/17 15:53 09/20/17 15:44 84 09/20/17 15:20 84 09/20/17 15:00 80 09/20/17 14:00 81 Pulse Resp Resp BP Pulse Ox Pulse Ox Pulse Ox 09/21/17 13:00 20 151/76 98 09/21/17 12:55 146/75 09/21/17 12:45 149/76 09/21/17 12:30 146/65 09/21/17 12:15 136/62 09/21/17 12:10 16 151/76 96 09/21/17 12:00 12 134/64 97 09/21/17 11:45 137/64 09/21/17 11:30 136/65 09/21/17 11:15 127/63 09/21/17 11:00 15 130/63 96 09/21/17 10:45 152/71 09/21/17 10:30 148/64 09/21/17 10:15 138/70 09/21/17 10:00 13 140/69 95 09/21/17 09:55 134/65 09/21/17 09:40 12 138/64 95 09/21/17 09:37 94 09/21/17 09:30 20 09/21/17 09:00 16 124/74 09/21/17 08:58 19 09/21/17 08:00 19 146/67 98 09/21/17 07:00 17 143/71 09/21/17 06:16 14 09/21/17 06:00 13 135/62 96 09/21/17 05:46 21 09/21/17 05:00 20 144/71 94 09/21/17 04:45 20 98 09/21/17 04:36 134/73 98 09/21/17 04:00 12 134/73 09/21/17 03:00 14 138/76 100 09/21/17 02:00 11 L 144/73 99 09/21/17 01:00 14 139/69 96 09/21/17 00:00 21 140/72 93 09/20/17 23:48 09/20/17 23:32 140/72 94 09/20/17 23:31 20 09/20/17 23:00 13 140/72 97 94 09/20/17 22:01 138/81 09/20/17 22:00 18 145/75 90 09/20/17 21:36 11 L 148/75 97 09/20/17 21:00 15 148/75 96 09/20/17 20:03 17 09/20/17 20:00 18 153/74 98 09/20/17 19:55 18 98 09/20/17 19:06 95 09/20/17 19:00 20 153/74 94 09/20/17 18:00 16 148/76 97 09/20/17 17:00 16 157/82 91 09/20/17 16:00 84 14 162/82 93 09/20/17 15:53 93 09/20/17 15:44 22 09/20/17 15:20 22 09/20/17 15:00 15 169/77 87 09/20/17 14:00 13 151/77 94 - Physical Examination General: No Apparent Distress, Other (trach in place.) HEENT: Positive: EOMI, Normocephaly, Mucus Membranes Moist Neck: Positive: neck supple, trachea midline Cardiac: Positive: irregularly irregular Neuro: Positive: Grossly Intact Abdomen: Positive: Soft, Active Bowel Sounds. Negative: Tender /Rectal: Other (Scrotum edematous.) Skin: Positive: Clear. Negative: Rash Musculoskeletal: Normal Range of Motion Extremities: Present: +1 Edema, +2 Edema - Imaging and Cardiology Echo: report reviewed (07/2017: EF 30-35%, impaired relaxation) - EKG Supraventricular dysrhythmia: atrial fibrillation (with controlled VR.) - Allied health notes Allied health notes reviewed: nursing (Holding off on PT evaluation until after HD)
--- NOTE | 2017-09-21 14:42 | Progress Note ---
Assessment and Plan - Patient Problems (1) Acute renal failure Current Visit: Yes Status: Acute Qualifiers: Acute renal failure type: with acute tubular necrosis Qualified Code(s): N17.0 - Acute kidney failure with tubular necrosis Plan to address problem: WILLIAM secondary to oliguric Acute tubular necrosis in the setting of hypotension/ sepsis. Follow-up electrolytes and renal function. rising BUN/Cr in between HD, will cont HD on MWF schedule mainly for solute clearance. supportive care for ATN. Will assess further need for HD on a daily basis. Pt remains non-oliguric. d/c barrientos. (2) Severe sepsis with septic shock Current Visit: Yes Status: Acute Plan to address problem: Continue antibiotics appropriately dosed to renal function. Remained stable off of vasopressors. Follow up Cultures (3) Hyperkalemia Current Visit: Yes Status: Acute Plan to address problem: Potassium has improved, now with low K, will use 4K bath. Continue to follow up (4) Acute respiratory failure with hypoxia Current Visit: Yes Status: Acute Plan to address problem: Patient is off of ventilator. Being managed by pulmonary (5) Peritonitis Current Visit: Yes Status: Acute Plan to address problem: S/p Exploratory laparotomy, peritoneal lavage, cholecystectomy, placement of gastrojejunal feeding tube, closure of abdomen. Continue antibiotics Subjective Date of service: 09/21/17 Principal diagnosis: Acute on chr. hypoxemic respr. failure, sepsis, Interval history: pt on trach, awake, alert, following commands Objective - Vital Signs Vital signs: Vital Signs - 12hr 09/21/17 09/21/17 09/21/17 03:00 04:00 04:36 Temperature 98.8 F Pulse Rate 78 84 79 Pulse Rate [ Anterior Bilateral Throughout] Pulse Rate [ From Monitor] Respiratory 14 12 Rate Respiratory Rate [Anterior Bilateral Throughout] Blood Pressure 138/76 134/73 134/73 O2 Sat by Pulse 100 98 Oximetry O2 Sat by Pulse Oximetry [ Anterior Bilateral Throughout] 09/21/17 09/21/17 09/21/17 04:45 05:00 05:46 Temperature Pulse Rate 81 Pulse Rate [ Anterior Bilateral Throughout] Pulse Rate [ 79 From Monitor] Respiratory 20 20 21 Rate Respiratory Rate [Anterior Bilateral Throughout] Blood Pressure 144/71 O2 Sat by Pulse 98 94 Oximetry O2 Sat by Pulse Oximetry [ Anterior Bilateral Throughout] 09/21/17 09/21/17 09/21/17 06:00 06:16 07:00 Temperature Pulse Rate 76 80 Pulse Rate [ Anterior Bilateral Throughout] Pulse Rate [ From Monitor] Respiratory 13 14 17 Rate Respiratory Rate [Anterior Bilateral Throughout] Blood Pressure 135/62 143/71 O2 Sat by Pulse 96 Oximetry O2 Sat by Pulse Oximetry [ Anterior Bilateral Throughout] 09/21/17 09/21/17 09/21/17 08:00 08:58 09:00 Temperature 98.2 F Pulse Rate 85 84 Pulse Rate [ 86 Anterior Bilateral Throughout] Pulse Rate [ 79 From Monitor] Respiratory 19 16 Rate Respiratory 19 Rate [Anterior Bilateral Throughout] Blood Pressure 146/67 124/74 O2 Sat by Pulse 98 Oximetry O2 Sat by Pulse Oximetry [ Anterior Bilateral Throughout] 09/21/17 09/21/17 09/21/17 09:30 09:37 09:40 Temperature 98.7 F Pulse Rate 78 Pulse Rate [ 76 Anterior Bilateral Throughout] Pulse Rate [ From Monitor] Respiratory 12 Rate Respiratory 20 Rate [Anterior Bilateral Throughout] Blood Pressure 138/64 O2 Sat by Pulse 94 Oximetry O2 Sat by Pulse 95 Oximetry [ Anterior Bilateral Throughout] 09/21/17 09/21/17 09/21/17 09:55 10:00 10:15 Temperature Pulse Rate 74 73 72 Pulse Rate [ Anterior Bilateral Throughout] Pulse Rate [ From Monitor] Respiratory 13 Rate Respiratory Rate [Anterior Bilateral Throughout] Blood Pressure 134/65 140/69 138/70 O2 Sat by Pulse 95 Oximetry O2 Sat by Pulse Oximetry [ Anterior Bilateral Throughout] 09/21/17 09/21/17 09/21/17 10:30 10:45 11:00 Temperature Pulse Rate 78 78 70 Pulse Rate [ Anterior Bilateral Throughout] Pulse Rate [ From Monitor] Respiratory 15 Rate Respiratory Rate [Anterior Bilateral Throughout] Blood Pressure 148/64 152/71 130/63 O2 Sat by Pulse 96 Oximetry O2 Sat by Pulse Oximetry [ Anterior Bilateral Throughout] 09/21/17 09/21/17 09/21/17 11:15 11:30 11:45 Temperature Pulse Rate 78 79 78 Pulse Rate [ Anterior Bilateral Throughout] Pulse Rate [ From Monitor] Respiratory Rate Respiratory Rate [Anterior Bilateral Throughout] Blood Pressure 127/63 136/65 137/64 O2 Sat by Pulse Oximetry O2 Sat by Pulse Oximetry [ Anterior Bilateral Throughout] 09/21/17 09/21/17 09/21/17 12:00 12:10 12:15 Temperature 97.6 F 97.9 F Pulse Rate 71 82 74 Pulse Rate [ Anterior Bilateral Throughout] Pulse Rate [ 79 From Monitor] Respiratory 12 16 Rate Respiratory Rate [Anterior Bilateral Throughout] Blood Pressure 134/64 151/76 136/62 O2 Sat by Pulse 97 Oximetry O2 Sat by Pulse 96 Oximetry [ Anterior Bilateral Throughout] 09/21/17 09/21/17 09/21/17 12:30 12:45 12:55 Temperature Pulse Rate 71 80 80 Pulse Rate [ Anterior Bilateral Throughout] Pulse Rate [ From Monitor] Respiratory Rate Respiratory Rate [Anterior Bilateral Throughout] Blood Pressure 146/65 149/76 146/75 O2 Sat by Pulse Oximetry O2 Sat by Pulse Oximetry [ Anterior Bilateral Throughout] 09/21/17 13:00 Temperature Pulse Rate 76 Pulse Rate [ Anterior Bilateral Throughout] Pulse Rate [ From Monitor] Respiratory 20 Rate Respiratory Rate [Anterior Bilateral Throughout] Blood Pressure 151/76 O2 Sat by Pulse 98 Oximetry O2 Sat by Pulse Oximetry [ Anterior Bilateral Throughout] - General Appearance General appearance: well-developed, well-nourished, appears stated age, obese EENT: ATNC, PERRL, mucous membranes moist Neck: no JVD Respiratory: Present: Clear to Ascultation Cardiology: regular, S1S2 Gastrointestinal: normoactive bowel sounds Integumentary: no rash, other (2+ edema b/l LE ) Neurologic: no focal deficit, alert and oriented x3, strength 5/5, CN 3-12 intact Psychiatric: mood/affect appropriate, cooperative - Lab 09/20/17 06:00 09/20/17 06:00 Most recent lab results Calcium 8.2 mg/dL (8.4-10.2) L 09/20/17 06:00 Phosphorus 5.00 mg/dL (2.5-4.5) H 09/20/17 06:00 Magnesium 1.70 mg/dL (1.7-2.3) 09/20/17 06:00 Urine Creatinine 180.6 mg/dL (0.1-20.0) H 09/13/17 14:47 Urine Sodium 29 mmol/L 09/13/17 14:47 Urine Total Protein 289 mg/dL (5-11.8) H 09/13/17 14:47
--- NOTE | 2017-09-21 15:17 | Progress Note ---
Assessment and Plan [id number] hypoxemic respiratory failure secondary likely to #2. Acute peritonitis, status post dislodged PEG tube. Severe sepsis. Oropharyngeal dysphagia. Acute kidney injury, possibly on chronic. Obesity. Tobacco use disorder. Alcohol abuse. Anemia that is microcytic and multifactorial. Metabolic acidosis. Hyperkalemia. Adult failure to thrive. - continue daytime T-piece as tolerated (required rest on MVS overnight) - prn ABG's at this point - continue supplemental oxygen and wean to keep sats > 90% - continue daily SAT's and SBT's - keep Peep at 6 cmH2O - continue enteral nutrition as tolerated and advance to goal rate - continue TPN for now - continue to address VAP bundle daily - continue antibiotics and de-escalate shortly - wean vasopressors to keep MAP >/= 65 mmHg - HD/UF prescrition per nephrology team - continue SCD's - heparin held and HIT assay sent re: thrombocytopenia (pending) - continue agitation and analgesia management while avoiding benzodiazepines - Avoid nephrotoxic agents - case discussed at length in team rounds and care plan formulated - continue other care per attending / other consultants .... re-evaluate in am & prn The high probability of a clinically significant, sudden or life threatening deterioration of the [cardiac, Renal, Respiratory, neurological] system(s) required my full and direct attention, intervention and personal management. The aggregate critical care time was [35] minutes without overlap. Time includes spent on; [x] Data Review and interpretation [x] Patient assessment and monitoring of vital signs [x] Documentation [x] Medication orders and management Subjective Date of service: 09/21/17 Principal diagnosis: Acute Hypoxemic Respiratory Failure; Hemorrhagic Shock; WILLIAM on Dilaysis;PVD Interval history: Patient is seen today for: Acute Hypoxemic Respiratory Failure; Hemorrhagic Shock; WILLIAM on Dilaysis;PVD Seen and examined at bedside; 24 hour events reviewed; nursing and respiratory care staff consulted; resting peacefully in bed; remains on MVS; resting peacefully in bed; remains on T-piece; denies acute chest pains or increased SOB ; remains dialysis dependent at this point; No abdominal pain/N/V/F/C Objective Vital Signs - 12hr 09/21/17 09/21/17 09/21/17 04:00 04:36 04:45 Temperature 98.8 F Pulse Rate 84 79 Pulse Rate [ Anterior Bilateral Throughout] Pulse Rate [ 79 From Monitor] Respiratory 12 20 Rate Respiratory Rate [Anterior Bilateral Throughout] Blood Pressure 134/73 134/73 O2 Sat by Pulse 98 98 Oximetry O2 Sat by Pulse Oximetry [ Anterior Bilateral Throughout] 09/21/17 09/21/17 09/21/17 05:00 05:46 06:00 Temperature Pulse Rate 81 76 Pulse Rate [ Anterior Bilateral Throughout] Pulse Rate [ From Monitor] Respiratory 20 21 13 Rate Respiratory Rate [Anterior Bilateral Throughout] Blood Pressure 144/71 135/62 O2 Sat by Pulse 94 96 Oximetry O2 Sat by Pulse Oximetry [ Anterior Bilateral Throughout] 09/21/17 09/21/17 09/21/17 06:16 07:00 08:00 Temperature 98.2 F Pulse Rate 80 85 Pulse Rate [ Anterior Bilateral Throughout] Pulse Rate [ 79 From Monitor] Respiratory 14 17 19 Rate Respiratory Rate [Anterior Bilateral Throughout] Blood Pressure 143/71 146/67 O2 Sat by Pulse 98 Oximetry O2 Sat by Pulse Oximetry [ Anterior Bilateral Throughout] 09/21/17 09/21/17 09/21/17 08:58 09:00 09:30 Temperature Pulse Rate 84 Pulse Rate [ 86 76 Anterior Bilateral Throughout] Pulse Rate [ From Monitor] Respiratory 16 Rate Respiratory 19 20 Rate [Anterior Bilateral Throughout] Blood Pressure 124/74 O2 Sat by Pulse Oximetry O2 Sat by Pulse Oximetry [ Anterior Bilateral Throughout] 09/21/17 09/21/17 09/21/17 09:37 09:40 09:55 Temperature 98.7 F Pulse Rate 78 74 Pulse Rate [ Anterior Bilateral Throughout] Pulse Rate [ From Monitor] Respiratory 12 Rate Respiratory Rate [Anterior Bilateral Throughout] Blood Pressure 138/64 134/65 O2 Sat by Pulse 94 Oximetry O2 Sat by Pulse 95 Oximetry [ Anterior Bilateral Throughout] 09/21/17 09/21/17 09/21/17 10:00 10:15 10:30 Temperature Pulse Rate 73 72 78 Pulse Rate [ Anterior Bilateral Throughout] Pulse Rate [ From Monitor] Respiratory 13 Rate Respiratory Rate [Anterior Bilateral Throughout] Blood Pressure 140/69 138/70 148/64 O2 Sat by Pulse 95 Oximetry O2 Sat by Pulse Oximetry [ Anterior Bilateral Throughout] 09/21/17 09/21/17 09/21/17 10:45 11:00 11:15 Temperature Pulse Rate 78 70 78 Pulse Rate [ Anterior Bilateral Throughout] Pulse Rate [ From Monitor] Respiratory 15 Rate Respiratory Rate [Anterior Bilateral Throughout] Blood Pressure 152/71 130/63 127/63 O2 Sat by Pulse 96 Oximetry O2 Sat by Pulse Oximetry [ Anterior Bilateral Throughout] 09/21/17 09/21/17 09/21/17 11:30 11:45 12:00 Temperature 97.6 F Pulse Rate 79 78 71 Pulse Rate [ Anterior Bilateral Throughout] Pulse Rate [ 79 From Monitor] Respiratory 12 Rate Respiratory Rate [Anterior Bilateral Throughout] Blood Pressure 136/65 137/64 134/64 O2 Sat by Pulse 97 Oximetry O2 Sat by Pulse Oximetry [ Anterior Bilateral Throughout] 09/21/17 09/21/17 09/21/17 12:10 12:15 12:30 Temperature 97.9 F Pulse Rate 82 74 71 Pulse Rate [ Anterior Bilateral Throughout] Pulse Rate [ From Monitor] Respiratory 16 Rate Respiratory Rate [Anterior Bilateral Throughout] Blood Pressure 151/76 136/62 146/65 O2 Sat by Pulse Oximetry O2 Sat by Pulse 96 Oximetry [ Anterior Bilateral Throughout] 09/21/17 09/21/17 09/21/17 12:45 12:55 13:00 Temperature Pulse Rate 80 80 76 Pulse Rate [ Anterior Bilateral Throughout] Pulse Rate [ From Monitor] Respiratory 20 Rate Respiratory Rate [Anterior Bilateral Throughout] Blood Pressure 149/76 146/75 151/76 O2 Sat by Pulse 98 Oximetry O2 Sat by Pulse Oximetry [ Anterior Bilateral Throughout] Constitutional: no acute distress, alert, other (elderly looking slightly obese CM; normocephalic s/p trach to ATP) Eyes: non-icteric ENT: oropharynx moist, other (s/p tracheostomy to ATP) Neck: supple, no lymphadenopathy, other (no thyromegaly) Effort: normal Ascultation: Bilateral: diminished breath sounds, rhonchi Percussion: Bilateral: dull (bases) Cardiovascular: irregular rhythm, other (S1,S2, no rubs or murmurs) Gastrointestinal: normoactive bowel sounds, soft, non-tender, other (midline arpan with GJ in place, mildly distended, G portio to gravity bag) Integumentary: normal Extremities: no cyanosis, pink and warm, pulses normal, no ischemia or petechiae , edema Neurologic: non-focal exam (grossly), pupils equal and round, CN II-XII normal, motor strength normal and (weak), other (mouths words and responds appropriately to questions) Psychiatric: mood appropriate, affect normal CBC and BMP: 09/23/17 08:10 09/23/17 08:10 ABG, PT/INR, D-dimer: ABG POC ABG pH 7.496 (7.35-7.45) H 09/19/17 06:52 POC ABG pCO2 31.9 (35-45) L 09/19/17 06:52 POC ABG pO2 97 (80-105) 09/19/17 06:52 POC ABG HCO3 24.6 09/19/17 06:52 POC ABG Total CO2 09/19/17 06:52 POC ABG O2 Sat 98 09/19/17 06:52 PT/INR, D-dimer PT 16.2 Sec. (12.2-14.9) H 09/18/17 03:46 INR 1.23 (0.87-1.13) H 09/18/17 03:46 Abnormal lab findings: Abnormal Labs 09/12/17 09/13/17 09/13/17 22:56 03:08 05:20 WBC RBC 3.60 L Hgb 11.5 L Hct 34.4 L MCV 95 H MCHC RDW 19.8 H Plt Count 83 L Seg Neuts % (Manual) Lymphocytes % (Manual) 11.0 L Nucleated RBC % Seg Neutrophils # Man Lymphocytes # (Manual) 0.7 L PT INR APTT POC ABG pH 7.280 L POC ABG pCO2 46.4 H POC ABG pO2 110 H Sodium Potassium Chloride Carbon Dioxide BUN Creatinine Glucose POC Glucose 135 H Lactic Acid Calcium Phosphorus Total Bilirubin AST ALT Alkaline Phosphatase C-Reactive Protein Total Protein Albumin Prealbumin Urine WBC (Auto) Urine Creatinine Urine Total Protein Crossmatch 09/13/17 09/13/17 09/13/17 05:20 14:47 14:47 WBC RBC Hgb Hct MCV MCHC RDW Plt Count Seg Neuts % (Manual) Lymphocytes % (Manual) Nucleated RBC % Seg Neutrophils # Man Lymphocytes # (Manual) PT INR APTT POC ABG pH POC ABG pCO2 POC ABG pO2 Sodium Potassium 5.2 H Chloride 109.6 H Carbon Dioxide 20 L BUN 54 H Creatinine 2.3 H Glucose POC Glucose Lactic Acid Calcium 7.8 L Phosphorus 6.20 H Total Bilirubin AST ALT Alkaline Phosphatase C-Reactive Protein Total Protein Albumin Prealbumin 0.050 L Urine WBC (Auto) 30.0 H Urine Creatinine 180.6 H Urine Total Protein 289 H Crossmatch 09/13/17 09/13/17 09/13/17 14:54 14:54 17:04 WBC RBC Hgb Hct MCV MCHC RDW Plt Count Seg Neuts % (Manual) Lymphocytes % (Manual) Nucleated RBC % Seg Neutrophils # Man Lymphocytes # (Manual) PT INR APTT POC ABG pH POC ABG pCO2 POC ABG pO2 Sodium Potassium Chloride Carbon Dioxide BUN Creatinine Glucose POC Glucose 114 H Lactic Acid 2.20 H* Calcium Phosphorus Total Bilirubin AST ALT Alkaline Phosphatase C-Reactive Protein 33.10 H Total Protein Albumin Prealbumin Urine WBC (Auto) Urine Creatinine Urine Total Protein Crossmatch 09/13/17 09/13/17 09/14/17 19:40 23:49 04:07 WBC RBC Hgb Hct MCV MCHC RDW Plt Count Seg Neuts % (Manual) Lymphocytes % (Manual) Nucleated RBC % Seg Neutrophils # Man Lymphocytes # (Manual) PT INR APTT POC ABG pH 7.332 L POC ABG pCO2 34.3 L POC ABG pO2 76 L Sodium Potassium Chloride Carbon Dioxide BUN Creatinine Glucose POC Glucose 115 H Lactic Acid 2.20 H* Calcium Phosphorus Total Bilirubin AST ALT Alkaline Phosphatase C-Reactive Protein Total Protein Albumin Prealbumin Urine WBC (Auto) Urine Creatinine Urine Total Protein Crossmatch 09/14/17 09/14/17 09/14/17 05:15 05:15 05:35 WBC RBC Hgb Hct MCV MCHC RDW Plt Count Seg Neuts % (Manual) Lymphocytes % (Manual) Nucleated RBC % Seg Neutrophils # Man Lymphocytes # (Manual) PT INR APTT POC ABG pH POC ABG pCO2 POC ABG pO2 Sodium Potassium Chloride 107.5 H Carbon Dioxide 18 L BUN 77 H Creatinine 3.0 H Glucose 185 H POC Glucose 196 H Lactic Acid Calcium 7.3 L Phosphorus 7.80 H D Total Bilirubin 2.50 H AST 991 H ALT 1757 H Alkaline Phosphatase C-Reactive Protein Total Protein 4.1 L Albumin 1.8 L Prealbumin Urine WBC (Auto) Urine Creatinine Urine Total Protein Crossmatch 09/14/17 09/14/17 09/14/17 12:17 18:08 23:55 WBC RBC Hgb Hct MCV MCHC RDW Plt Count Seg Neuts % (Manual) Lymphocytes % (Manual) Nucleated RBC % Seg Neutrophils # Man Lymphocytes # (Manual) PT INR APTT POC ABG pH POC ABG pCO2 POC ABG pO2 Sodium Potassium Chloride Carbon Dioxide BUN Creatinine Glucose POC Glucose 212 H 242 H 231 H Lactic Acid Calcium Phosphorus Total Bilirubin AST ALT Alkaline Phosphatase C-Reactive Protein Total Protein Albumin Prealbumin Urine WBC (Auto) Urine Creatinine Urine Total Protein Crossmatch 09/15/17 09/15/17 09/15/17 04:12 05:50 06:00 WBC RBC 2.62 L Hgb 8.3 L D Hct 25.8 L D MCV 98 H MCHC RDW 20.1 H Plt Count 50 L Seg Neuts % (Manual) 82.0 H Lymphocytes % (Manual) 6.0 L Nucleated RBC % Seg Neutrophils # Man Lymphocytes # (Manual) 0.5 L PT INR APTT POC ABG pH 7.252 L POC ABG pCO2 POC ABG pO2 Sodium Potassium Chloride Carbon Dioxide BUN Creatinine Glucose POC Glucose 240 H Lactic Acid Calcium Phosphorus Total Bilirubin AST ALT Alkaline Phosphatase C-Reactive Protein Total Protein Albumin Prealbumin Urine WBC (Auto) Urine Creatinine Urine Total Protein Crossmatch 09/15/17 09/15/17 09/15/17 06:00 11:17 15:11 WBC RBC Hgb Hct MCV MCHC RDW Plt Count Seg Neuts % (Manual) Lymphocytes % (Manual) Nucleated RBC % Seg Neutrophils # Man Lymphocytes # (Manual) PT INR APTT POC ABG pH POC ABG pCO2 POC ABG pO2 Sodium 136 L Potassium Chloride Carbon Dioxide 17 L BUN 98 H Creatinine 3.9 H Glucose 207 H POC Glucose 215 H 238 H Lactic Acid Calcium 7.4 L Phosphorus 7.80 H Total Bilirubin 1.50 H AST 357 H ALT 1308 H Alkaline Phosphatase C-Reactive Protein Total Protein 4.2 L Albumin 1.7 L Prealbumin Urine WBC (Auto) Urine Creatinine Urine Total Protein Crossmatch 09/15/17 09/15/17 09/15/17 17:52 17:52 17:52 WBC 11.4 H RBC 2.91 L Hgb 8.8 L Hct 29.0 L MCV 100 H MCHC 31 L RDW 20.6 H Plt Count 46 L Seg Neuts % (Manual) Lymphocytes % (Manual) Nucleated RBC % Seg Neutrophils # Man Lymphocytes # (Manual) PT 16.5 H INR 1.26 H APTT 38.7 H POC ABG pH POC ABG pCO2 POC ABG pO2 Sodium 136 L Potassium Chloride Carbon Dioxide 16 L BUN 100 H Creatinine 3.8 H Glucose 220 H POC Glucose Lactic Acid Calcium 7.3 L Phosphorus Total Bilirubin 1.50 H AST 263 H ALT 1236 H Alkaline Phosphatase C-Reactive Protein Total Protein 4.3 L Albumin 2.0 L Prealbumin Urine WBC (Auto) Urine Creatinine Urine Total Protein Crossmatch 09/15/17 09/15/17 09/16/17 18:12 23:34 05:22 WBC RBC Hgb Hct MCV MCHC RDW Plt Count Seg Neuts % (Manual) Lymphocytes % (Manual) Nucleated RBC % Seg Neutrophils # Man Lymphocytes # (Manual) PT INR APTT POC ABG pH POC ABG pCO2 POC ABG pO2 Sodium Potassium Chloride Carbon Dioxide BUN Creatinine Glucose POC Glucose 276 H 275 H 306 H Lactic Acid Calcium Phosphorus Total Bilirubin AST ALT Alkaline Phosphatase C-Reactive Protein Total Protein Albumin Prealbumin Urine WBC (Auto) Urine Creatinine Urine Total Protein Crossmatch 09/16/17 09/16/17 09/16/17 06:15 06:15 12:10 WBC RBC 2.75 L Hgb 8.8 L Hct 27.1 L MCV 99 H MCHC RDW 20.2 H Plt Count 42 L Seg Neuts % (Manual) 93.0 H Lymphocytes % (Manual) 3.0 L Nucleated RBC % Seg Neutrophils # Man 8.5 H Lymphocytes # (Manual) 0.3 L PT INR APTT POC ABG pH POC ABG pCO2 POC ABG pO2 Sodium 136 L Potassium Chloride Carbon Dioxide 15 L BUN 110 H Creatinine 4.1 H Glucose 265 H POC Glucose 277 H Lactic Acid Calcium 7.6 L Phosphorus 9.00 H Total Bilirubin 1.30 H AST 227 H ALT 966 H Alkaline Phosphatase C-Reactive Protein Total Protein 4.3 L Albumin 1.8 L Prealbumin Urine WBC (Auto) Urine Creatinine Urine Total Protein Crossmatch 09/16/17 09/16/17 09/16/17 13:07 17:33 23:42 WBC RBC Hgb Hct MCV MCHC RDW Plt Count Seg Neuts % (Manual) Lymphocytes % (Manual) Nucleated RBC % Seg Neutrophils # Man Lymphocytes # (Manual) PT INR APTT POC ABG pH 7.175 L POC ABG pCO2 POC ABG pO2 71 L Sodium Potassium Chloride Carbon Dioxide BUN Creatinine Glucose POC Glucose 289 H 262 H Lactic Acid Calcium Phosphorus Total Bilirubin AST ALT Alkaline Phosphatase C-Reactive Protein Total Protein Albumin Prealbumin Urine WBC (Auto) Urine Creatinine Urine Total Protein Crossmatch 09/17/17 09/17/17 09/17/17 05:30 05:30 05:39 WBC RBC 2.39 L Hgb 7.4 L Hct 23.0 L MCV 96 H MCHC RDW 19.6 H Plt Count 24 L Seg Neuts % (Manual) 76.0 H Lymphocytes % (Manual) 5.0 L Nucleated RBC % Seg Neutrophils # Man Lymphocytes # (Manual) 0.4 L PT INR APTT POC ABG pH POC ABG pCO2 POC ABG pO2 Sodium Potassium Chloride Carbon Dioxide BUN 93 H Creatinine 3.6 H Glucose 201 H POC Glucose 218 H Lactic Acid Calcium 7.5 L Phosphorus 6.10 H D Total Bilirubin AST 62 H ALT 619 H Alkaline Phosphatase C-Reactive Protein Total Protein 4.1 L Albumin 1.7 L Prealbumin Urine WBC (Auto) Urine Creatinine Urine Total Protein Crossmatch 09/17/17 09/17/17 09/17/17 10:45 11:31 17:46 WBC RBC Hgb Hct MCV MCHC RDW Plt Count Seg Neuts % (Manual) Lymphocytes % (Manual) Nucleated RBC % Seg Neutrophils # Man Lymphocytes # (Manual) PT INR APTT POC ABG pH POC ABG pCO2 POC ABG pO2 Sodium Potassium Chloride Carbon Dioxide BUN Creatinine Glucose POC Glucose 221 H 209 H Lactic Acid Calcium Phosphorus Total Bilirubin AST ALT Alkaline Phosphatase C-Reactive Protein Total Protein Albumin Prealbumin Urine WBC (Auto) Urine Creatinine Urine Total Protein Crossmatch See Detail 09/18/17 09/18/17 09/18/17 00:05 03:46 03:46 WBC RBC 3.05 L Hgb 9.5 L Hct 28.2 L MCV MCHC RDW 19.0 H Plt Count 29 L Seg Neuts % (Manual) 81.0 H Lymphocytes % (Manual) 7.0 L Nucleated RBC % 3.0 H Seg Neutrophils # Man Lymphocytes # (Manual) 0.6 L PT 16.2 H INR 1.23 H APTT POC ABG pH POC ABG pCO2 POC ABG pO2 Sodium Potassium Chloride Carbon Dioxide BUN Creatinine Glucose POC Glucose 168 H Lactic Acid Calcium Phosphorus Total Bilirubin AST ALT Alkaline Phosphatase C-Reactive Protein Total Protein Albumin Prealbumin Urine WBC (Auto) Urine Creatinine Urine Total Protein Crossmatch 09/18/17 09/18/17 09/18/17 03:46 04:59 05:54 WBC RBC Hgb Hct MCV MCHC RDW Plt Count Seg Neuts % (Manual) Lymphocytes % (Manual) Nucleated RBC % Seg Neutrophils # Man Lymphocytes # (Manual) PT INR APTT POC ABG pH POC ABG pCO2 POC ABG pO2 75 L Sodium Potassium 3.4 L Chloride 97.2 L Carbon Dioxide BUN 73 H Creatinine 3.1 H Glucose 160 H POC Glucose 202 H Lactic Acid Calcium 7.6 L Phosphorus 4.60 H D Total Bilirubin AST ALT 446 H Alkaline Phosphatase 136 H C-Reactive Protein Total Protein 4.5 L Albumin 1.9 L Prealbumin Urine WBC (Auto) Urine Creatinine Urine Total Protein Crossmatch 09/18/17 09/18/17 09/18/17 10:52 13:14 18:34 WBC RBC Hgb Hct MCV MCHC RDW Plt Count Seg Neuts % (Manual) Lymphocytes % (Manual) Nucleated RBC % Seg Neutrophils # Man Lymphocytes # (Manual) PT INR APTT POC ABG pH POC ABG pCO2 POC ABG pO2 Sodium Potassium Chloride Carbon Dioxide BUN Creatinine Glucose POC Glucose 179 H 177 H 177 H Lactic Acid Calcium Phosphorus Total Bilirubin AST ALT Alkaline Phosphatase C-Reactive Protein Total Protein Albumin Prealbumin Urine WBC (Auto) Urine Creatinine Urine Total Protein Crossmatch 09/18/17 09/18/17 09/19/17 20:25 23:49 04:15 WBC RBC 3.11 L Hgb 9.8 L Hct 28.4 L MCV MCHC 35 H RDW 19.4 H Plt Count 34 L Seg Neuts % (Manual) 71.0 H Lymphocytes % (Manual) 6.0 L Nucleated RBC % Seg Neutrophils # Man Lymphocytes # (Manual) 0.6 L PT INR APTT POC ABG pH POC ABG pCO2 POC ABG pO2 69 L Sodium Potassium Chloride Carbon Dioxide BUN Creatinine Glucose POC Glucose 158 H Lactic Acid Calcium Phosphorus Total Bilirubin AST ALT Alkaline Phosphatase C-Reactive Protein Total Protein Albumin Prealbumin Urine WBC (Auto) Urine Creatinine Urine Total Protein Crossmatch 09/19/17 09/19/17 09/19/17 04:15 05:23 06:52 WBC RBC Hgb Hct MCV MCHC RDW Plt Count Seg Neuts % (Manual) Lymphocytes % (Manual) Nucleated RBC % Seg Neutrophils # Man Lymphocytes # (Manual) PT INR APTT POC ABG pH 7.496 H POC ABG pCO2 31.9 L POC ABG pO2 Sodium 136 L Potassium 3.2 L Chloride 94.5 L Carbon Dioxide BUN 72 H Creatinine 2.9 H Glucose 149 H POC Glucose 153 H Lactic Acid Calcium 8.0 L Phosphorus Total Bilirubin AST ALT 300 H Alkaline Phosphatase 169 H C-Reactive Protein Total Protein 4.5 L Albumin 2.0 L Prealbumin Urine WBC (Auto) Urine Creatinine Urine Total Protein Crossmatch 09/19/17 09/19/17 09/19/17 11:43 17:59 23:33 WBC RBC Hgb Hct MCV MCHC RDW Plt Count Seg Neuts % (Manual) Lymphocytes % (Manual) Nucleated RBC % Seg Neutrophils # Man Lymphocytes # (Manual) PT INR APTT POC ABG pH POC ABG pCO2 POC ABG pO2 Sodium Potassium Chloride Carbon Dioxide BUN Creatinine Glucose POC Glucose 117 H 133 H 124 H Lactic Acid Calcium Phosphorus Total Bilirubin AST ALT Alkaline Phosphatase C-Reactive Protein Total Protein Albumin Prealbumin Urine WBC (Auto) Urine Creatinine Urine Total Protein Crossmatch 09/20/17 09/20/17 09/20/17 05:27 06:00 06:00 WBC RBC 3.26 L Hgb 10.0 L Hct 30.3 L MCV MCHC RDW 19.3 H Plt Count 34 L Seg Neuts % (Manual) 93.0 H Lymphocytes % (Manual) 3.0 L Nucleated RBC % Seg Neutrophils # Man 9.0 H Lymphocytes # (Manual) 0.3 L PT INR APTT POC ABG pH POC ABG pCO2 POC ABG pO2 Sodium 136 L Potassium 3.2 L Chloride 93.7 L Carbon Dioxide BUN 89 H Creatinine 3.6 H Glucose 113 H POC Glucose 115 H Lactic Acid Calcium 8.2 L Phosphorus 5.00 H Total Bilirubin AST ALT 214 H Alkaline Phosphatase 156 H C-Reactive Protein Total Protein 4.6 L Albumin 1.8 L Prealbumin Urine WBC (Auto) Urine Creatinine Urine Total Protein Crossmatch 09/20/17 09/20/17 09/20/17 11:40 18:24 22:57 WBC RBC Hgb Hct MCV MCHC RDW Plt Count Seg Neuts % (Manual) Lymphocytes % (Manual) Nucleated RBC % Seg Neutrophils # Man Lymphocytes # (Manual) PT INR APTT POC ABG pH POC ABG pCO2 POC ABG pO2 Sodium Potassium Chloride Carbon Dioxide BUN Creatinine Glucose POC Glucose 125 H 188 H 155 H Lactic Acid Calcium Phosphorus Total Bilirubin AST ALT Alkaline Phosphatase C-Reactive Protein Total Protein Albumin Prealbumin Urine WBC (Auto) Urine Creatinine Urine Total Protein Crossmatch 09/21/17 09/21/17 05:53 12:21 WBC RBC Hgb Hct MCV MCHC RDW Plt Count Seg Neuts % (Manual) Lymphocytes % (Manual) Nucleated RBC % Seg Neutrophils # Man Lymphocytes # (Manual) PT INR APTT POC ABG pH POC ABG pCO2 POC ABG pO2 Sodium Potassium Chloride Carbon Dioxide BUN Creatinine Glucose POC Glucose 149 H 175 H Lactic Acid Calcium Phosphorus Total Bilirubin AST ALT Alkaline Phosphatase C-Reactive Protein Total Protein Albumin Prealbumin Urine WBC (Auto) Urine Creatinine Urine Total Protein Crossmatch Allied health notes reviewed: nursing (Holding off on PT evaluation until after HD)
--- NOTE | 2017-09-21 16:40 | XRay Report ---
FINAL REPORT EXAM: XR ABDOMEN 1V AP HISTORY: check for bowel distention TECHNIQUE: Single supine view the abdomen PRIORS: None. FINDINGS: Surgical arpan are seen along midline incision. There is tubing overlying the upper abdomen possibly drainage to. There is moderate colonic and small bowel distention. No definitive transition observed. No additional acute findings. IMPRESSION: Moderate colonic and small bowel distention most likely postoperative ileus
[2017-09-21] MEDS: DIFLUCAN 200 MG/100 ML BAG IV SCH (21:37)
[2017-09-22] MEDS: DUONEB *Not for PRN Use IH SCH ×3 (04:32→15:00)
[2017-09-22] MEDS: SUBLIMAZE IV PRN (05:07)
[2017-09-22 05:16] LABS: Hematocrit 30.2 % (35.5-45.6); Hemoglobin 10.2 gm/dl (11.8-15.2); Mean Corpuscular HGB Conc 34 % (32-34); Mean Corpuscular Hemoglobin 31 pg (28-32); Mean Corpuscular Volume 92 fl (84-94); Red Blood Count 3.29 M/mm3 (3.65-5.03); Red Cell Distribution Width 19.6 % (13.2-15.2)
[2017-09-22 05:32] LABS: Albumin 1.9 g/dL (3.9-5)
[2017-09-22 05:42] LABS: Platelet Count 40 K/mm3 (140-440)
[2017-09-22] MEDS: FLAGYL 500 MG/100 ML 500 MG/100 ML BAG IV SCH ×3 (06:19→23:19)
[2017-09-22 06:49] LABS: Band Neutrophils # (Manual) 0.4 K/mm3; Basophils % (Manual) 0 % (0.0-1.8); Eosinophils % (Manual) 0 % (0.0-4.3); Total Cells Counted 100
[2017-09-22 06:50] LABS: Anisocytosis 1+; Burr Cells Few; Ovalocytes Few; Platelet Estimate Consistent w Auto
[2017-09-22] MEDS: HumaLOG SUB-Q SCH ×4 (07:05→19:58)
[2017-09-22] MEDS: PULMICORT IH SCH ×2 (08:05→20:11)
[2017-09-22] MEDS: BROVANA NEBU IH SCH ×2 (08:05→20:11)
--- NOTE | 2017-09-22 08:23 | Progress Note ---
Assessment and Plan - Patient Problems (1) Acute renal failure due to tubular necrosis Current Visit: No Status: Acute Plan to address problem: Acute tubular necrosis secondary to hypotension/sepsis. Kidney function now improving. Urine outputs much better.. Follow-up electrolytes and renal function. Hemodialysis again tomorrow. We will continue to monitor for renal recovery. (2) Severe sepsis with septic shock Current Visit: Yes Status: Acute Plan to address problem: Continue antibiotics appropriately dosed to renal function. Remains stable off of vasopressors. (3) Hyperkalemia Current Visit: Yes Status: Acute Plan to address problem: Potassium has improved and is now low. Continue to follow up (4) Acute respiratory failure with hypoxia Current Visit: Yes Status: Acute Plan to address problem: Patient is off of ventilator. Being managed by pulmonary (5) Peritonitis Current Visit: Yes Status: Acute Plan to address problem: S/p Exploratory laparotomy, peritoneal lavage, cholecystectomy, placement of gastrojejunal feeding tube, closure of abdomen. Continue antibiotics Subjective Date of service: 09/22/17 Principal diagnosis: Acute Hypoxemic Respiratory Failure; Hemorrhagic Shock; WILLIAM on Dilaysis;PVD Interval history: Patient seen lying in bed in ICU. Tracheostomy intact on T piece. Patient mouthing words. Urine output improving Objective - Exam Narrative Exam: Middle-aged female lying in bed in no acute distress HEENT: NCAT, pink clear oropharynx Neck: Supple, no venous distention, trach intact on T-piece CVS: S1S2 RRR with no murmur, rub or gallop Chest: Rhonchi bilaterally Abdomen: Distended, soft, tender, bowel sounds diminished, dressings intact, edema trunk Extremities: 2+ Pitting edema, heel protectors intact, Skin: warm and dry Genitourinary deferred, [place] catheter draining clear urine Neuro: Awake, alert, communicating nonverbally - Vital Signs Vital signs: Vital Signs - 12hr 09/21/17 09/21/17 09/21/17 20:30 21:00 21:38 Temperature Pulse Rate 83 Pulse Rate [ 86 Anterior Bilateral Throughout] Pulse Rate [ 83 From Monitor] Respiratory 18 Rate Respiratory 20 Rate [Anterior Bilateral Throughout] Blood Pressure 137/68 O2 Sat by Pulse 97 Oximetry 09/21/17 09/21/17 09/21/17 22:00 22:48 23:53 Temperature Pulse Rate 80 Pulse Rate [ Anterior Bilateral Throughout] Pulse Rate [ From Monitor] Respiratory 18 19 Rate Respiratory Rate [Anterior Bilateral Throughout] Blood Pressure 136/74 136/74 O2 Sat by Pulse 97 98 Oximetry 09/21/17 09/22/17 09/22/17 23:58 00:00 00:03 Temperature 98.1 F Pulse Rate 81 74 85 Pulse Rate [ Anterior Bilateral Throughout] Pulse Rate [ From Monitor] Respiratory 15 14 18 Rate Respiratory Rate [Anterior Bilateral Throughout] Blood Pressure 136/74 136/74 142/80 O2 Sat by Pulse 97 98 97 Oximetry 09/22/17 09/22/17 09/22/17 00:09 02:00 04:00 Temperature 98.7 F Pulse Rate 93 H 82 Pulse Rate [ 84 Anterior Bilateral Throughout] Pulse Rate [ 83 From Monitor] Respiratory 16 16 17 Rate Respiratory 20 Rate [Anterior Bilateral Throughout] Blood Pressure 138/77 139/66 O2 Sat by Pulse 97 99 98 Oximetry 09/22/17 09/22/17 09/22/17 04:15 04:33 04:34 Temperature Pulse Rate 82 Pulse Rate [ 82 Anterior Bilateral Throughout] Pulse Rate [ 80 From Monitor] Respiratory 14 Rate Respiratory 20 Rate [Anterior Bilateral Throughout] Blood Pressure 139/66 O2 Sat by Pulse 100 98 Oximetry 09/22/17 09/22/17 09/22/17 05:07 06:01 08:00 Temperature Pulse Rate 80 79 Pulse Rate [ Anterior Bilateral Throughout] Pulse Rate [ From Monitor] Respiratory 18 13 14 Rate Respiratory Rate [Anterior Bilateral Throughout] Blood Pressure 142/75 142/77 O2 Sat by Pulse 100 95 Oximetry - Lab 09/22/17 05:00 09/22/17 05:00 Most recent lab results Calcium 8.0 mg/dL (8.4-10.2) L 09/22/17 05:00 Phosphorus 5.00 mg/dL (2.5-4.5) H 09/20/17 06:00 Magnesium 1.70 mg/dL (1.7-2.3) 09/20/17 06:00 Urine Creatinine 180.6 mg/dL (0.1-20.0) H 09/13/17 14:47 Urine Sodium 29 mmol/L 09/13/17 14:47 Urine Total Protein 289 mg/dL (5-11.8) H 09/13/17 14:47
[2017-09-22] MEDS: LOPRESSOR PO SCH ×3 (08:37→23:19)
[2017-09-22] MEDS: CORDARONE PO SCH (08:38)
--- NOTE | 2017-09-22 09:06 | Progress Note ---
Assessment and Plan [id number] hypoxemic respiratory failure secondary likely to #2. Acute peritonitis, status post dislodged PEG tube. (procedure s/p Exploratory laparotomy, repair of gastrotomy, removal of PEG tube , peritoneal lavage, temporary closure of abdomen with Abthera Vac on 09/12/17 and Exploratory laparotomy, peritoneal lavage, cholecystectomy, placement of gastrojejunal feeding tube, closure of abdomen) Severe sepsis. Tracheostomy Oropharyngeal dysphagia. Acute on chronic kidney injury Anarsarca Obesity. Tobacco use disorder. Anemia -microcytic ABLA Metabolic acidosis. Hyperkalemia. Adult failure to thrive. Thrombocytopenia -Routine trach care, airway clearance, secretion managment. -ATP during the day with full vent support at night. Will start increasing ATP hours, get ABG once he is off ventilator for 24 hours on ATP - continue supplemental oxygen and wean to keep sats > 90% - continue daily SBT's - continue enteral nutrition, at goal. Conitnue with GT to gravity - continue to address VAP bundle daily - continue antibiotics and de-escalate per ID recs - remains off vasopressors - continue SCD's - continue agitation and analgesia management while avoiding benzodiazepines - Avoid nephrotoxic agents - supportive HD -Follow up HIT panel -mobility, PT/OT...dsicussed extensively with PT team during ICU-IDT rounds -Improving, though he remains tenuous The high probability of a clinically significant, sudden or life threatening deterioration of the [cardiac, Renal, Respiratory, neurological] system(s) required my full and direct attention, intervention and personal management. The aggregate critical care time was [30] minutes without overlap. Time includes spent on; [x] Data Review and interpretation [x] Patient assessment and monitoring of vital signs [x] Documentation [x] Medication orders and management Subjective Date of service: 09/22/17 Principal diagnosis: Acute Hypoxemic Respiratory Failure; Hemorrhagic Shock; WILLIAM on Dilaysis;PVD Interval history: Patient is seen today for: Acute Hypoxemic Respiratory Failure; Hemorrhagic Shock; WILLIAM on Dialysis;PVD Seen and examined at bedside; 24 hour events reviewed; nursing and respiratory care staff consulted; resting peacefully in bed; no emesis or overt aspiration; resting peacefully; denies acute chest pains; mild cognitive dysfunction Remains off vasopressor support. Currently on ATP More awake and alert. Tolerating tube feeding. Objective Vital Signs - 12hr 09/21/17 09/21/17 09/21/17 21:38 22:00 22:48 Temperature Pulse Rate 83 80 Pulse Rate [ Anterior Bilateral Throughout] Pulse Rate [ From Monitor] Respiratory 18 19 Rate Respiratory Rate [Anterior Bilateral Throughout] Blood Pressure 137/68 136/74 O2 Sat by Pulse 97 Oximetry 09/21/17 09/21/17 09/22/17 23:53 23:58 00:00 Temperature 98.1 F Pulse Rate 81 74 Pulse Rate [ Anterior Bilateral Throughout] Pulse Rate [ From Monitor] Respiratory 15 14 Rate Respiratory Rate [Anterior Bilateral Throughout] Blood Pressure 136/74 136/74 136/74 O2 Sat by Pulse 98 97 98 Oximetry 09/22/17 09/22/17 09/22/17 00:03 00:09 02:00 Temperature Pulse Rate 85 93 H Pulse Rate [ Anterior Bilateral Throughout] Pulse Rate [ 83 From Monitor] Respiratory 18 16 16 Rate Respiratory Rate [Anterior Bilateral Throughout] Blood Pressure 142/80 138/77 O2 Sat by Pulse 97 97 99 Oximetry 09/22/17 09/22/17 09/22/17 04:00 04:15 04:33 Temperature 98.7 F Pulse Rate 82 Pulse Rate [ 84 82 Anterior Bilateral Throughout] Pulse Rate [ 80 From Monitor] Respiratory 17 14 Rate Respiratory 20 20 Rate [Anterior Bilateral Throughout] Blood Pressure 139/66 O2 Sat by Pulse 98 100 Oximetry 09/22/17 09/22/17 09/22/17 04:34 05:07 06:01 Temperature Pulse Rate 82 80 Pulse Rate [ Anterior Bilateral Throughout] Pulse Rate [ From Monitor] Respiratory 18 13 Rate Respiratory Rate [Anterior Bilateral Throughout] Blood Pressure 139/66 142/75 O2 Sat by Pulse 98 100 Oximetry 09/22/17 09/22/17 09/22/17 08:00 08:05 08:23 Temperature 99.7 F H Pulse Rate 79 Pulse Rate [ 88 Anterior Bilateral Throughout] Pulse Rate [ From Monitor] Respiratory 14 Rate Respiratory 18 Rate [Anterior Bilateral Throughout] Blood Pressure 142/77 O2 Sat by Pulse 95 95 Oximetry 09/22/17 09/22/17 08:26 08:37 Temperature Pulse Rate 81 Pulse Rate [ 86 Anterior Bilateral Throughout] Pulse Rate [ From Monitor] Respiratory Rate Respiratory 20 Rate [Anterior Bilateral Throughout] Blood Pressure 142/77 O2 Sat by Pulse Oximetry Constitutional: no acute distress, alert, other (elderly looking slightly obese CM; normocephalic s/p trach to ATP) Eyes: non-icteric ENT: oropharynx moist, other (s/p tracheostomy to ATP) Neck: supple, no lymphadenopathy, other (no thyromegaly) Effort: normal Ascultation: Bilateral: diminished breath sounds, rhonchi Percussion: Bilateral: dull (bases) Cardiovascular: irregular rhythm, other (S1,S2, no rubs or murmurs) Gastrointestinal: normoactive bowel sounds, soft, non-tender, other (midline arpan with GJ in place, mildly distended, G portio to gravity bag) Integumentary: normal Extremities: no cyanosis, pink and warm, pulses normal, no ischemia or petechiae , edema Neurologic: non-focal exam (grossly), pupils equal and round, CN II-XII normal, motor strength normal and (weak), other (mouths words and responds appropriately to questions) Psychiatric: mood appropriate, affect normal CBC and BMP: 09/23/17 08:10 09/23/17 08:10 ABG, PT/INR, D-dimer: ABG POC ABG pH 7.414 (7.35-7.45) 09/22/17 04:54 POC ABG pCO2 39.2 (35-45) 09/22/17 04:54 POC ABG pO2 102 (80-105) 09/22/17 04:54 POC ABG HCO3 25.1 09/22/17 04:54 POC ABG Total CO2 26 09/22/17 04:54 POC ABG O2 Sat 98 09/22/17 04:54 PT/INR, D-dimer PT 16.2 Sec. (12.2-14.9) H 09/18/17 03:46 INR 1.23 (0.87-1.13) H 09/18/17 03:46 Abnormal lab findings: Abnormal Labs 09/12/17 09/13/17 09/13/17 22:56 03:08 05:20 WBC RBC 3.60 L Hgb 11.5 L Hct 34.4 L MCV 95 H MCHC RDW 19.8 H Plt Count 83 L Seg Neuts % (Manual) Lymphocytes % (Manual) 11.0 L Nucleated RBC % Seg Neutrophils # Man Lymphocytes # (Manual) 0.7 L PT INR APTT POC ABG pH 7.280 L POC ABG pCO2 46.4 H POC ABG pO2 110 H Sodium Potassium Chloride Carbon Dioxide BUN Creatinine Glucose POC Glucose 135 H Lactic Acid Calcium Phosphorus Total Bilirubin AST ALT Alkaline Phosphatase C-Reactive Protein Total Protein Albumin Prealbumin Urine WBC (Auto) Urine Creatinine Urine Total Protein Crossmatch 09/13/17 09/13/17 09/13/17 05:20 14:47 14:47 WBC RBC Hgb Hct MCV MCHC RDW Plt Count Seg Neuts % (Manual) Lymphocytes % (Manual) Nucleated RBC % Seg Neutrophils # Man Lymphocytes # (Manual) PT INR APTT POC ABG pH POC ABG pCO2 POC ABG pO2 Sodium Potassium 5.2 H Chloride 109.6 H Carbon Dioxide 20 L BUN 54 H Creatinine 2.3 H Glucose POC Glucose Lactic Acid Calcium 7.8 L Phosphorus 6.20 H Total Bilirubin AST ALT Alkaline Phosphatase C-Reactive Protein Total Protein Albumin Prealbumin 0.050 L Urine WBC (Auto) 30.0 H Urine Creatinine 180.6 H Urine Total Protein 289 H Crossmatch 09/13/17 09/13/17 09/13/17 14:54 14:54 17:04 WBC RBC Hgb Hct MCV MCHC RDW Plt Count Seg Neuts % (Manual) Lymphocytes % (Manual) Nucleated RBC % Seg Neutrophils # Man Lymphocytes # (Manual) PT INR APTT POC ABG pH POC ABG pCO2 POC ABG pO2 Sodium Potassium Chloride Carbon Dioxide BUN Creatinine Glucose POC Glucose 114 H Lactic Acid 2.20 H* Calcium Phosphorus Total Bilirubin AST ALT Alkaline Phosphatase C-Reactive Protein 33.10 H Total Protein Albumin Prealbumin Urine WBC (Auto) Urine Creatinine Urine Total Protein Crossmatch 09/13/17 09/13/17 09/14/17 19:40 23:49 04:07 WBC RBC Hgb Hct MCV MCHC RDW Plt Count Seg Neuts % (Manual) Lymphocytes % (Manual) Nucleated RBC % Seg Neutrophils # Man Lymphocytes # (Manual) PT INR APTT POC ABG pH 7.332 L POC ABG pCO2 34.3 L POC ABG pO2 76 L Sodium Potassium Chloride Carbon Dioxide BUN Creatinine Glucose POC Glucose 115 H Lactic Acid 2.20 H* Calcium Phosphorus Total Bilirubin AST ALT Alkaline Phosphatase C-Reactive Protein Total Protein Albumin Prealbumin Urine WBC (Auto) Urine Creatinine Urine Total Protein Crossmatch 09/14/17 09/14/17 09/14/17 05:15 05:15 05:35 WBC RBC Hgb Hct MCV MCHC RDW Plt Count Seg Neuts % (Manual) Lymphocytes % (Manual) Nucleated RBC % Seg Neutrophils # Man Lymphocytes # (Manual) PT INR APTT POC ABG pH POC ABG pCO2 POC ABG pO2 Sodium Potassium Chloride 107.5 H Carbon Dioxide 18 L BUN 77 H Creatinine 3.0 H Glucose 185 H POC Glucose 196 H Lactic Acid Calcium 7.3 L Phosphorus 7.80 H D Total Bilirubin 2.50 H AST 991 H ALT 1757 H Alkaline Phosphatase C-Reactive Protein Total Protein 4.1 L Albumin 1.8 L Prealbumin Urine WBC (Auto) Urine Creatinine Urine Total Protein Crossmatch 09/14/17 09/14/17 09/14/17 12:17 18:08 23:55 WBC RBC Hgb Hct MCV MCHC RDW Plt Count Seg Neuts % (Manual) Lymphocytes % (Manual) Nucleated RBC % Seg Neutrophils # Man Lymphocytes # (Manual) PT INR APTT POC ABG pH POC ABG pCO2 POC ABG pO2 Sodium Potassium Chloride Carbon Dioxide BUN Creatinine Glucose POC Glucose 212 H 242 H 231 H Lactic Acid Calcium Phosphorus Total Bilirubin AST ALT Alkaline Phosphatase C-Reactive Protein Total Protein Albumin Prealbumin Urine WBC (Auto) Urine Creatinine Urine Total Protein Crossmatch 09/15/17 09/15/17 09/15/17 04:12 05:50 06:00 WBC RBC 2.62 L Hgb 8.3 L D Hct 25.8 L D MCV 98 H MCHC RDW 20.1 H Plt Count 50 L Seg Neuts % (Manual) 82.0 H Lymphocytes % (Manual) 6.0 L Nucleated RBC % Seg Neutrophils # Man Lymphocytes # (Manual) 0.5 L PT INR APTT POC ABG pH 7.252 L POC ABG pCO2 POC ABG pO2 Sodium Potassium Chloride Carbon Dioxide BUN Creatinine Glucose POC Glucose 240 H Lactic Acid Calcium Phosphorus Total Bilirubin AST ALT Alkaline Phosphatase C-Reactive Protein Total Protein Albumin Prealbumin Urine WBC (Auto) Urine Creatinine Urine Total Protein Crossmatch 09/15/17 09/15/17 09/15/17 06:00 11:17 15:11 WBC RBC Hgb Hct MCV MCHC RDW Plt Count Seg Neuts % (Manual) Lymphocytes % (Manual) Nucleated RBC % Seg Neutrophils # Man Lymphocytes # (Manual) PT INR APTT POC ABG pH POC ABG pCO2 POC ABG pO2 Sodium 136 L Potassium Chloride Carbon Dioxide 17 L BUN 98 H Creatinine 3.9 H Glucose 207 H POC Glucose 215 H 238 H Lactic Acid Calcium 7.4 L Phosphorus 7.80 H Total Bilirubin 1.50 H AST 357 H ALT 1308 H Alkaline Phosphatase C-Reactive Protein Total Protein 4.2 L Albumin 1.7 L Prealbumin Urine WBC (Auto) Urine Creatinine Urine Total Protein Crossmatch 09/15/17 09/15/17 09/15/17 17:52 17:52 17:52 WBC 11.4 H RBC 2.91 L Hgb 8.8 L Hct 29.0 L MCV 100 H MCHC 31 L RDW 20.6 H Plt Count 46 L Seg Neuts % (Manual) Lymphocytes % (Manual) Nucleated RBC % Seg Neutrophils # Man Lymphocytes # (Manual) PT 16.5 H INR 1.26 H APTT 38.7 H POC ABG pH POC ABG pCO2 POC ABG pO2 Sodium 136 L Potassium Chloride Carbon Dioxide 16 L BUN 100 H Creatinine 3.8 H Glucose 220 H POC Glucose Lactic Acid Calcium 7.3 L Phosphorus Total Bilirubin 1.50 H AST 263 H ALT 1236 H Alkaline Phosphatase C-Reactive Protein Total Protein 4.3 L Albumin 2.0 L Prealbumin Urine WBC (Auto) Urine Creatinine Urine Total Protein Crossmatch 09/15/17 09/15/17 09/16/17 18:12 23:34 05:22 WBC RBC Hgb Hct MCV MCHC RDW Plt Count Seg Neuts % (Manual) Lymphocytes % (Manual) Nucleated RBC % Seg Neutrophils # Man Lymphocytes # (Manual) PT INR APTT POC ABG pH POC ABG pCO2 POC ABG pO2 Sodium Potassium Chloride Carbon Dioxide BUN Creatinine Glucose POC Glucose 276 H 275 H 306 H Lactic Acid Calcium Phosphorus Total Bilirubin AST ALT Alkaline Phosphatase C-Reactive Protein Total Protein Albumin Prealbumin Urine WBC (Auto) Urine Creatinine Urine Total Protein Crossmatch 09/16/17 09/16/17 09/16/17 06:15 06:15 12:10 WBC RBC 2.75 L Hgb 8.8 L Hct 27.1 L MCV 99 H MCHC RDW 20.2 H Plt Count 42 L Seg Neuts % (Manual) 93.0 H Lymphocytes % (Manual) 3.0 L Nucleated RBC % Seg Neutrophils # Man 8.5 H Lymphocytes # (Manual) 0.3 L PT INR APTT POC ABG pH POC ABG pCO2 POC ABG pO2 Sodium 136 L Potassium Chloride Carbon Dioxide 15 L BUN 110 H Creatinine 4.1 H Glucose 265 H POC Glucose 277 H Lactic Acid Calcium 7.6 L Phosphorus 9.00 H Total Bilirubin 1.30 H AST 227 H ALT 966 H Alkaline Phosphatase C-Reactive Protein Total Protein 4.3 L Albumin 1.8 L Prealbumin Urine WBC (Auto) Urine Creatinine Urine Total Protein Crossmatch 09/16/17 09/16/17 09/16/17 13:07 17:33 23:42 WBC RBC Hgb Hct MCV MCHC RDW Plt Count Seg Neuts % (Manual) Lymphocytes % (Manual) Nucleated RBC % Seg Neutrophils # Man Lymphocytes # (Manual) PT INR APTT POC ABG pH 7.175 L POC ABG pCO2 POC ABG pO2 71 L Sodium Potassium Chloride Carbon Dioxide BUN Creatinine Glucose POC Glucose 289 H 262 H Lactic Acid Calcium Phosphorus Total Bilirubin AST ALT Alkaline Phosphatase C-Reactive Protein Total Protein Albumin Prealbumin Urine WBC (Auto) Urine Creatinine Urine Total Protein Crossmatch 09/17/17 09/17/17 09/17/17 05:30 05:30 05:39 WBC RBC 2.39 L Hgb 7.4 L Hct 23.0 L MCV 96 H MCHC RDW 19.6 H Plt Count 24 L Seg Neuts % (Manual) 76.0 H Lymphocytes % (Manual) 5.0 L Nucleated RBC % Seg Neutrophils # Man Lymphocytes # (Manual) 0.4 L PT INR APTT POC ABG pH POC ABG pCO2 POC ABG pO2 Sodium Potassium Chloride Carbon Dioxide BUN 93 H Creatinine 3.6 H Glucose 201 H POC Glucose 218 H Lactic Acid Calcium 7.5 L Phosphorus 6.10 H D Total Bilirubin AST 62 H ALT 619 H Alkaline Phosphatase C-Reactive Protein Total Protein 4.1 L Albumin 1.7 L Prealbumin Urine WBC (Auto) Urine Creatinine Urine Total Protein Crossmatch 09/17/17 09/17/17 09/17/17 10:45 11:31 17:46 WBC RBC Hgb Hct MCV MCHC RDW Plt Count Seg Neuts % (Manual) Lymphocytes % (Manual) Nucleated RBC % Seg Neutrophils # Man Lymphocytes # (Manual) PT INR APTT POC ABG pH POC ABG pCO2 POC ABG pO2 Sodium Potassium Chloride Carbon Dioxide BUN Creatinine Glucose POC Glucose 221 H 209 H Lactic Acid Calcium Phosphorus Total Bilirubin AST ALT Alkaline Phosphatase C-Reactive Protein Total Protein Albumin Prealbumin Urine WBC (Auto) Urine Creatinine Urine Total Protein Crossmatch See Detail 09/18/17 09/18/17 09/18/17 00:05 03:46 03:46 WBC RBC 3.05 L Hgb 9.5 L Hct 28.2 L MCV MCHC RDW 19.0 H Plt Count 29 L Seg Neuts % (Manual) 81.0 H Lymphocytes % (Manual) 7.0 L Nucleated RBC % 3.0 H Seg Neutrophils # Man Lymphocytes # (Manual) 0.6 L PT 16.2 H INR 1.23 H APTT POC ABG pH POC ABG pCO2 POC ABG pO2 Sodium Potassium Chloride Carbon Dioxide BUN Creatinine Glucose POC Glucose 168 H Lactic Acid Calcium Phosphorus Total Bilirubin AST ALT Alkaline Phosphatase C-Reactive Protein Total Protein Albumin Prealbumin Urine WBC (Auto) Urine Creatinine Urine Total Protein Crossmatch 09/18/17 09/18/17 09/18/17 03:46 04:59 05:54 WBC RBC Hgb Hct MCV MCHC RDW Plt Count Seg Neuts % (Manual) Lymphocytes % (Manual) Nucleated RBC % Seg Neutrophils # Man Lymphocytes # (Manual) PT INR APTT POC ABG pH POC ABG pCO2 POC ABG pO2 75 L Sodium Potassium 3.4 L Chloride 97.2 L Carbon Dioxide BUN 73 H Creatinine 3.1 H Glucose 160 H POC Glucose 202 H Lactic Acid Calcium 7.6 L Phosphorus 4.60 H D Total Bilirubin AST ALT 446 H Alkaline Phosphatase 136 H C-Reactive Protein Total Protein 4.5 L Albumin 1.9 L Prealbumin Urine WBC (Auto) Urine Creatinine Urine Total Protein Crossmatch 09/18/17 09/18/17 09/18/17 10:52 13:14 18:34 WBC RBC Hgb Hct MCV MCHC RDW Plt Count Seg Neuts % (Manual) Lymphocytes % (Manual) Nucleated RBC % Seg Neutrophils # Man Lymphocytes # (Manual) PT INR APTT POC ABG pH POC ABG pCO2 POC ABG pO2 Sodium Potassium Chloride Carbon Dioxide BUN Creatinine Glucose POC Glucose 179 H 177 H 177 H Lactic Acid Calcium Phosphorus Total Bilirubin AST ALT Alkaline Phosphatase C-Reactive Protein Total Protein Albumin Prealbumin Urine WBC (Auto) Urine Creatinine Urine Total Protein Crossmatch 09/18/17 09/18/17 09/19/17 20:25 23:49 04:15 WBC RBC 3.11 L Hgb 9.8 L Hct 28.4 L MCV MCHC 35 H RDW 19.4 H Plt Count 34 L Seg Neuts % (Manual) 71.0 H Lymphocytes % (Manual) 6.0 L Nucleated RBC % Seg Neutrophils # Man Lymphocytes # (Manual) 0.6 L PT INR APTT POC ABG pH POC ABG pCO2 POC ABG pO2 69 L Sodium Potassium Chloride Carbon Dioxide BUN Creatinine Glucose POC Glucose 158 H Lactic Acid Calcium Phosphorus Total Bilirubin AST ALT Alkaline Phosphatase C-Reactive Protein Total Protein Albumin Prealbumin Urine WBC (Auto) Urine Creatinine Urine Total Protein Crossmatch 09/19/17 09/19/17 09/19/17 04:15 05:23 06:52 WBC RBC Hgb Hct MCV MCHC RDW Plt Count Seg Neuts % (Manual) Lymphocytes % (Manual) Nucleated RBC % Seg Neutrophils # Man Lymphocytes # (Manual) PT INR APTT POC ABG pH 7.496 H POC ABG pCO2 31.9 L POC ABG pO2 Sodium 136 L Potassium 3.2 L Chloride 94.5 L Carbon Dioxide BUN 72 H Creatinine 2.9 H Glucose 149 H POC Glucose 153 H Lactic Acid Calcium 8.0 L Phosphorus Total Bilirubin AST ALT 300 H Alkaline Phosphatase 169 H C-Reactive Protein Total Protein 4.5 L Albumin 2.0 L Prealbumin Urine WBC (Auto) Urine Creatinine Urine Total Protein Crossmatch 09/19/17 09/19/17 09/19/17 11:43 17:59 23:33 WBC RBC Hgb Hct MCV MCHC RDW Plt Count Seg Neuts % (Manual) Lymphocytes % (Manual) Nucleated RBC % Seg Neutrophils # Man Lymphocytes # (Manual) PT INR APTT POC ABG pH POC ABG pCO2 POC ABG pO2 Sodium Potassium Chloride Carbon Dioxide BUN Creatinine Glucose POC Glucose 117 H 133 H 124 H Lactic Acid Calcium Phosphorus Total Bilirubin AST ALT Alkaline Phosphatase C-Reactive Protein Total Protein Albumin Prealbumin Urine WBC (Auto) Urine Creatinine Urine Total Protein Crossmatch 09/20/17 09/20/17 09/20/17 05:27 06:00 06:00 WBC RBC 3.26 L Hgb 10.0 L Hct 30.3 L MCV MCHC RDW 19.3 H Plt Count 34 L Seg Neuts % (Manual) 93.0 H Lymphocytes % (Manual) 3.0 L Nucleated RBC % Seg Neutrophils # Man 9.0 H Lymphocytes # (Manual) 0.3 L PT INR APTT POC ABG pH POC ABG pCO2 POC ABG pO2 Sodium 136 L Potassium 3.2 L Chloride 93.7 L Carbon Dioxide BUN 89 H Creatinine 3.6 H Glucose 113 H POC Glucose 115 H Lactic Acid Calcium 8.2 L Phosphorus 5.00 H Total Bilirubin AST ALT 214 H Alkaline Phosphatase 156 H C-Reactive Protein Total Protein 4.6 L Albumin 1.8 L Prealbumin Urine WBC (Auto) Urine Creatinine Urine Total Protein Crossmatch 09/20/17 09/20/17 09/20/17 11:40 18:24 22:57 WBC RBC Hgb Hct MCV MCHC RDW Plt Count Seg Neuts % (Manual) Lymphocytes % (Manual) Nucleated RBC % Seg Neutrophils # Man Lymphocytes # (Manual) PT INR APTT POC ABG pH POC ABG pCO2 POC ABG pO2 Sodium Potassium Chloride Carbon Dioxide BUN Creatinine Glucose POC Glucose 125 H 188 H 155 H Lactic Acid Calcium Phosphorus Total Bilirubin AST ALT Alkaline Phosphatase C-Reactive Protein Total Protein Albumin Prealbumin Urine WBC (Auto) Urine Creatinine Urine Total Protein Crossmatch 09/21/17 09/21/17 09/21/17 05:53 12:21 17:42 WBC RBC Hgb Hct MCV MCHC RDW Plt Count Seg Neuts % (Manual) Lymphocytes % (Manual) Nucleated RBC % Seg Neutrophils # Man Lymphocytes # (Manual) PT INR APTT POC ABG pH POC ABG pCO2 POC ABG pO2 Sodium Potassium Chloride Carbon Dioxide BUN Creatinine Glucose POC Glucose 149 H 175 H 163 H Lactic Acid Calcium Phosphorus Total Bilirubin AST ALT Alkaline Phosphatase C-Reactive Protein Total Protein Albumin Prealbumin Urine WBC (Auto) Urine Creatinine Urine Total Protein Crossmatch 09/21/17 09/22/17 09/22/17 23:27 05:00 05:00 WBC 11.9 H RBC 3.29 L Hgb 10.2 L Hct 30.2 L MCV MCHC RDW 19.6 H Plt Count 40 L Seg Neuts % (Manual) 92.0 H Lymphocytes % (Manual) 3.0 L Nucleated RBC % Seg Neutrophils # Man 10.9 H Lymphocytes # (Manual) 0.4 L PT INR APTT POC ABG pH POC ABG pCO2 POC ABG pO2 Sodium 133 L Potassium 3.5 L Chloride 93.7 L Carbon Dioxide BUN 87 H Creatinine 3.0 H Glucose POC Glucose 115 H Lactic Acid Calcium 8.0 L Phosphorus Total Bilirubin AST ALT 120 H Alkaline Phosphatase 237 H C-Reactive Protein Total Protein 4.7 L Albumin 1.9 L Prealbumin Urine WBC (Auto) Urine Creatinine Urine Total Protein Crossmatch Allied health notes reviewed: case management
--- NOTE | 2017-09-22 09:25 | Hem/Onc Progress Note ---
Assessment and Plan plts low- if bleeding or below 20k, will transfuse Platelets improving lfts improving Subjective Date of service: 09/22/17 Interval history: pt without change Objective - Exam Narrative Exam: trach abd bandadged - Constitutional Vitals: Last Vital Signs Temp 99.7 F H 09/22/17 08:00 Pulse 81 09/22/17 08:37 Resp 20 09/22/17 08:26 BP 142/77 09/22/17 08:37 Pulse Ox 95 09/22/17 08:23 General appearance: no acute distress - Neck Neck: supple - Respiratory Respiratory effort: Positive: normal Respiratory: bilateral: CTA - Cardiovascular Rhythm: regular - Gastrointestinal General gastrointestinal: Present: other (bandadged) - Labs Lab Results: Laboratory Results - last 24 hr 09/21/17 09/21/17 09/21/17 12:21 17:42 23:27 WBC RBC Hgb Hct MCV MCH MCHC RDW Plt Count Add Manual Diff Total Counted Seg Neutrophils % Seg Neuts % (Manual) Band Neutrophils % Lymphocytes % (Manual) Reactive Lymphs % (Man) Monocytes % (Manual) Eosinophils % (Manual) Basophils % (Manual) Metamyelocytes % Myelocytes % Promyelocytes % Blast Cells % Nucleated RBC % Seg Neutrophils # Man Band Neutrophils # Lymphocytes # (Manual) Abs React Lymphs (Man) Monocytes # (Manual) Eosinophils # (Manual) Basophils # (Manual) Metamyelocytes # Myelocytes # Promyelocytes # Blast Cells # WBC Morphology Hypersegmented Neuts Hyposegmented Neuts Hypogranular Neuts Smudge Cells Toxic Granulation Toxic Vacuolation Dohle Bodies Pelger-Huet Anomaly Tito Rods Platelet Estimate Clumped Platelets Plt Clumps, EDTA Large Platelets Giant Platelets Platelet Satelliting Plt Morphology Comment RBC Morphology Dimorphic RBCs Polychromasia Hypochromasia Poikilocytosis Anisocytosis Microcytosis Macrocytosis Spherocytes Pappenheimer Bodies Sickle Cells Target Cells Tear Drop Cells Ovalocytes Helmet Cells Kevin[place] [address] Bodies [place] Cells Bite Cells Crenated Cell Elliptocytes Acanthocytes (Spur) Rouleaux Hemoglobin C Crystals Schistocytes Malaria parasites Brayan Bodies Hem Pathologist Commnt POC ABG pH POC ABG pCO2 POC ABG pO2 POC ABG HCO3 POC ABG Total CO2 POC ABG O2 Sat POC ABG Base Excess FiO2 Sodium Potassium Chloride Carbon Dioxide Anion Gap BUN Creatinine Estimated GFR BUN/Creatinine Ratio Glucose POC Glucose 175 H 163 H 115 H Calcium Total Bilirubin AST ALT Alkaline Phosphatase Total Protein Albumin Albumin/Globulin Ratio 09/22/17 09/22/17 09/22/17 04:54 05:00 05:00 WBC 11.9 H RBC 3.29 L Hgb 10.2 L Hct 30.2 L MCV 92 MCH 31 MCHC 34 RDW 19.6 H Plt Count 40 L Add Manual Diff Complete Total Counted 100 Seg Neutrophils % Air Transportation Provider Seg Neuts % (Manual) 92.0 H Band Neutrophils % 3.0 Lymphocytes % (Manual) 3.0 L Reactive Lymphs % (Man) 0 Monocytes % (Manual) 2.0 Eosinophils % (Manual) 0 Basophils % (Manual) 0 Metamyelocytes % 0 Myelocytes % 0 Promyelocytes % 0 Blast Cells % 0 Nucleated RBC % Not Reportable Seg Neutrophils # Man 10.9 H Band Neutrophils # 0.4 Lymphocytes # (Manual) 0.4 L Abs React Lymphs (Man) 0.0 Monocytes # (Manual) 0.2 Eosinophils # (Manual) 0.0 Basophils # (Manual) 0.0 Metamyelocytes # 0.0 Myelocytes # 0.0 Promyelocytes # 0.0 Blast Cells # 0.0 WBC Morphology Not Reportable Hypersegmented Neuts Not Reportable Hyposegmented Neuts Not Reportable Hypogranular Neuts Not Reportable Smudge Cells Not Reportable Toxic Granulation Not Reportable Toxic Vacuolation Not Reportable Dohle Bodies Not Reportable Pelger-Huet Anomaly Not Reportable Tito Rods Not Reportable Platelet Estimate Consistent w auto Clumped Platelets Not Reportable Plt Clumps, EDTA Not Reportable Large Platelets Not Reportable Giant Platelets Not Reportable Platelet Satelliting Not Reportable Plt Morphology Comment Not Reportable RBC Morphology Not Reportable Dimorphic RBCs Not Reportable Polychromasia Not Reportable Hypochromasia Not Reportable Poikilocytosis Not Reportable Anisocytosis 1+ Microcytosis Not Reportable Macrocytosis Not Reportable Spherocytes Not Reportable Pappenheimer Bodies Not Reportable Sickle Cells Not Reportable Target Cells Not Reportable Tear Drop Cells Not Reportable Ovalocytes Few Helmet Cells Not Reportable [place] Bodies Not Reportable [place] Not Reportable [place] Cells Few Bite Cells Not Reportable Crenated Cell Not Reportable Elliptocytes Not Reportable Acanthocytes (Spur) Not Reportable Rouleaux Not Reportable Hemoglobin C Crystals Not Reportable Schistocytes Not Reportable Malaria parasites Not Reportable Brayan Bodies Not Reportable Hem Pathologist Commnt No POC ABG pH 7.414 POC ABG pCO2 39.2 POC ABG pO2 102 POC ABG HCO3 25.1 POC ABG Total CO2 26 POC ABG O2 Sat 98 POC ABG Base Excess 0 FiO2 40 Sodium 133 L Potassium 3.5 L Chloride 93.7 L Carbon Dioxide 26 Anion Gap 17 BUN 87 H Creatinine 3.0 H Estimated GFR 21 BUN/Creatinine Ratio 29 Glucose 100 POC Glucose Calcium 8.0 L Total Bilirubin 0.80 AST 18 ALT 120 H Alkaline Phosphatase 237 H Total Protein 4.7 L Albumin 1.9 L Albumin/Globulin Ratio 0.7
[2017-09-22] MEDS: PEPCID PO SCH (09:40)
--- NOTE | 2017-09-22 09:57 | Discharge Summary ---
<HEMANTH LOPEZ - Last Filed: 09/22/17 09:49> Providers - Providers Date of Admission: 09/12/17 22:35 Date of discharge: 09/22/17 Attending physician: HEMANTH LOPEZ 09/12/17 Consult to Case Management [CONS] Routine Services Needed at Discharge: Other Notified:: yes If yes, spoke with:: Sweta Time called:: 11:30 09/12/17 22:46 Consult to Dietitian/Nutrition [CONS] Routine Physician Instructions: Reason For Exam: Reason for Consult: Write/Manage TPN/PPN 09/13/17 14:00 Consult to Physician [CONS] Routine Comment: Consulting Provider: YOCASTA NIX Physician Instructions: Reason For Exam: WILLIAM on CKD 09/14/17 08:36 Consult to Physician [CONS] Routine Comment: Consulting Provider: VON PARHAM Physician Instructions: Reason For Exam: intraperitoneal infection, UTI 09/14/17 12:04 Consult to Wound/ET Nurse [CONS] Routine Reason For Exam: wound eval R outer ankle. R groin wound 09/15/17 09:47 Physical Therapy Evaluation and Treat [CONS] Routine Comment: Reason For Exam: Debility 09/15/17 11:21 Consult to Physician [CONS] Routine Comment: Consulting Provider: TORRES MAGUIRE Physician Instructions: Reason For Exam: barrientos exchange, placed by uro, scrotal/penileedema 09/15/17 11:56 Consult to Physician [CONS] Routine Comment: Consulting Provider: TORRES MAGUIRE Physician Instructions: Reason For Exam: change of Coude catheter 09/16/17 08:38 Consult to Physician [CONS] Routine Comment: Consulting Provider: ИВАН BROCK Physician Instructions: Reason For Exam: Vascath for urgent HD Primary care physician: HEMANTH LOPEZ Hospitalization Reason for admission: acute erspiratory failurte on mechanical ventilation, Sepsis, peritonitis Pertinent studies: CT abdomen and pelvis Procedures: Exploratory lap Vasc cath placement for Hemodialysis Hospital course: Patient is a 66 yo male with a complex medical history including hx of recent hospitalization in August 11 2017 at [facility] for a lower extremity vascular procedure and subsequent return to the OR the day after the original procedure for hypotension. During that hospitalization, the patient underwent multiple blood transfusions and was on the ventilator. The patient underwent a trach/PEG by our service on 08/24/17 due to inability to wean from vent. He was sent to LTACH after that hospitalization. The patient subsequently developed pneumoperitoeum on 08/31/17 from leaking PEG tube. At that time he was transferred back to the ICU and monitored. He was stable on initial exam and remained stable throughout the hospitalization and was sent back to LTACH on TPN. Tube feeds were help in order to allow the PEG to heal and tract to form. GI consulted and after adjusting the PEG recommended recommencement of PEG tube feeds. This was restarted two days prior to this admission at 10cc/hr. The patient was doing well up until the night of 09/12/17 when he started to develop abdominal distension. This am he was anxious per his and he was given dilaudid 0.5mg IV for complaints of abdominal pain. Since then, the patient has had depressed mental status and is not responsive. He was started on levophed for hypotension. Labs and CT scan were obtained. Ct A/P showed pneumoperitoneum and PEG tube bumper outside of stomach. Surgery consulted. Psteitn transfeedfd back to ICU [facility]. Emergent exploratory lap was done after discussing with family member regarding the risk benefits. Peritoneal lavage done. Gangrenous gallballder identified. cholecyctectomy done. PEG tube removed and stoma closed in the stomach. wound left open. Post operatively renal function continued to deteriorate. Nursing Faculty who has been following pt commence hemodialysis. Thrombocytopenia identifed. 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 Hematology consult obtained. Platelet level gradually improving after holding heparinproduct and giving 2 unit of blood during HD for anemia of chronic disease. Pt gradually improved. Mentation returned to baseline. Was taken back to the OR and abdominal wound closed. Gastric tube inserted. Pt continued to improved. Now off the vent during the day.Only on T-peice with oxygen supplementation. Commenced feeding throught the gastric tube. Commence Physical therapy and is being transfered back to LTAC. Pt ramains interctive. Was discussing with pt's at every step and she expressed understanding. The patient is therefore being transferd back to LTAC. Called and discussed transfer plan with his . Disposition: [id number]/[id number] MEDICARE CERT [facility] Time spent for discharge: 40 mins - Discharge Diagnoses (1) Acute renal failure Status: Acute Qualifiers: Acute renal failure type: with acute tubular necrosis Qualified Code(s): N17.0 - Acute kidney failure with tubular necrosis (2) Acute respiratory failure with hypoxia Status: Acute (3) Atrial fibrillation with RVR Status: Acute (4) Cardiomyopathy Status: Acute (5) Dislodged gastrostomy tube Status: Acute (6) Hyperkalemia Status: Acute (7) Pneumoperitoneum Status: Acute (8) Severe sepsis with septic shock Status: Acute (9) Thrombocytopenia Status: Acute (10) Acute renal failure due to tubular necrosis Status: Acute (11) Metabolic acidosis Status: Acute Core Measure Documentation - Palliative Care Palliative Care/ Comfort Measures: Not Applicable - Core Measures Any of the following diagnoses?: none Exam - Physical Exam Narrative exam: Constitutional: Now off mechanical ventilation through tracheostomy during the day but back on it at night. Awake. Afebrile Head: Normocephalic atraumatic Eyes: Pupils are equal round and reactive to light Nose: No enlarged turbinates, no septal deviation. Mouth: Moist mucous membranes. Neck: Supple no thyromegaly. No bruit. No JVD. trach tube in place Heart: Regular rate and rhythm, S1-S2 abnormal. No rubs murmurs or gallop Lungs: Decreased breath sound bilaterally. No rhonchi Abdomen: Soft, Dry surgical wound dressing nontender. PEG tube in place Extremities: 2+ edema no cyanosis and no clubbing. Neuro: Alert oriented Oriented x1. No focal sensory or motor deficit. Skin: No rashes no hyperemic spots Psychiatry: Euthymic. Calm. - Constitutional Vitals: Temp Pulse Resp BP Pulse Ox 99.7 F H 81 20 142/77 95 09/22/17 08:00 09/22/17 08:37 09/22/17 08:26 09/22/17 08:37 09/22/17 08:23 Plan Activity: other (bed bound) Weight Bearing Status: Weight Bear as Tolerated Diet: other (PEG tube feeding) Follow up with: HEMANTH LOPEZ MD [Primary Care Provider] - 7 Days Prescriptions: HYDROcodone/APAP 7.5-325 [Reading 7.5-325 mg TAB] 1 each PO Q6HR PRN #20 tablet PRN Reason: Pain <REHANA MAHMOOD - Last Filed: 09/22/17 14:33> Providers - Providers Date of Admission: 09/12/17 22:35 Attending physician: HEMANTH LOPEZ 09/12/17 Consult to Case Management [CONS] Routine Services Needed at Discharge: Other Notified:: yes If yes, spoke with:: Sweta Time called:: 11:30 09/12/17 22:46 Consult to Dietitian/Nutrition [CONS] Routine Physician Instructions: Reason For Exam: Reason for Consult: Write/Manage TPN/PPN 09/13/17 14:00 Consult to Physician [CONS] Routine Comment: Consulting Provider: YOCASTA NIX Physician Instructions: Reason For Exam: WILLIAM on CKD 09/14/17 08:36 Consult to Physician [CONS] Routine Comment: Consulting Provider: VON PARHAM Physician Instructions: Reason For Exam: intraperitoneal infection, UTI 09/14/17 12:04 Consult to Wound/ET Nurse [CONS] Routine Reason For Exam: wound eval R outer ankle. R groin wound 09/15/17 09:47 Physical Therapy Evaluation and Treat [CONS] Routine Comment: Reason For Exam: Debility 09/15/17 11:21 Consult to Physician [CONS] Routine Comment: Consulting Provider: TORRES MAGUIRE Physician Instructions: Reason For Exam: barrientos exchange, placed by uro, scrotal/penileedema 09/15/17 11:56 Consult to Physician [CONS] Routine Comment: Consulting Provider: TORRES MAGUIRE Physician Instructions: Reason For Exam: change of Coude catheter 09/16/17 08:38 Consult to Physician [CONS] Routine Comment: Consulting Provider: ИВАН BROCK Physician Instructions: Reason For Exam: Vascath for urgent HD Primary care physician: HEMANTH LOPEZ Exam - Constitutional Vitals: Temp Pulse Resp BP Pulse Ox 98.4 F 78 16 130/64 95 09/22/17 12:00 09/22/17 14:20 09/22/17 12:00 09/22/17 14:20 09/22/17 12:00 Plan Activity: other (bed bound. Turn patient q2 and offload bony prominences) Diet: other (J tube feeding (Feed through J port only). DO NOT PUT MEDS THROUGH J TUBE. ) Additional Instructions: Abdominal incision arpan will be removed in 7-10 days after discharge by surgeon. DO NOT PLACE MEDS DOWN J TUBE UNLESS IT IS A THIN LIQUID. KEEP G PORT TO OVERSIDE DRAINAGE UNLESS THE PATIENT IS GETTING MEDS. THEN MAY CLAMP G PORT AFTER MEDICATION ADMINISTRATION FOR AT LEAST 1 HOUR.
--- NOTE | 2017-09-22 09:57 | Progress Note ---
Assessment and Plan Decrease PO amio to 200mg daily. Cont lopressor. Volume optimization and electrolyte replacement per nephrology. No systemic anticoagulation at this time in regards to atrial fibrillation in setting of anemia, thrombocytopenia and recent bleeding. Pt awaiting transfer to LTAC. The patient has been seen in conjunction with Dr. Sunshine who agrees with the assessment and plan of care. - Patient Problems (1) Acute respiratory failure with hypoxia Current Visit: Yes Status: Acute (2) Atrial fibrillation with RVR Current Visit: Yes Status: Acute (3) Acute combined systolic and diastolic heart failure Current Visit: Yes Status: Acute (4) Cardiomyopathy Current Visit: Yes Status: Chronic (5) Severe sepsis with septic shock Current Visit: Yes Status: Acute (6) Acute renal failure Current Visit: Yes Status: Acute Qualifiers: Qualified Code(s): N17.0 - Acute kidney failure with tubular necrosis (7) Peritonitis Current Visit: Yes Status: Acute (8) Pneumoperitoneum Current Visit: Yes Status: Acute (9) PAD (peripheral artery disease) Current Visit: Yes Status: Chronic (10) Anemia Current Visit: Yes Status: Acute Qualifiers: Qualified Code(s): N18.2 - Chronic kidney disease, stage 2 (mild); D63.1 - Anemia in chronic kidney disease (11) Thrombocytopenia Current Visit: Yes Status: Acute Subjective Date of service: 09/22/17 Principal diagnosis: Acute on chr. hypoxemic respr. failure, sepsis, Interval history: pt resting comfortably in bed, alert, trached. remains in AFib with CVR. Objective Last Vital Signs Temp 99.7 F H 09/22/17 08:00 Pulse 81 09/22/17 08:37 Resp 20 09/22/17 08:26 BP 142/77 09/22/17 08:37 Pulse Ox 95 09/22/17 08:23 - Physical Examination General: No Apparent Distress, Other (trach in place.) HEENT: Positive: EOMI, Normocephaly, Mucus Membranes Moist Neck: Positive: neck supple, trachea midline Cardiac: Positive: irregularly irregular, S1/S2 Lungs: Positive: Decreased Breath Sounds, Oxygen, Ventilated Respirations Neuro: Positive: Grossly Intact Abdomen: Positive: Soft, Active Bowel Sounds. Negative: Tender /Rectal: Other (Scrotum edematous.) Skin: Positive: Clear. Negative: Rash Musculoskeletal: Normal Range of Motion Extremities: Present: +1 Edema, +2 Edema - Labs and Meds Cardiac Enzymes 09/22/17 Range/Units 05:00 AST 18 (5-40) units/L CBC 09/22/17 Range/Units 05:00 WBC 11.9 H (4.5-11.0) K/mm3 RBC 3.29 L (3.65-5.03) M/mm3 Hgb 10.2 L (11.8-15.2) gm/dl Hct 30.2 L (35.5-45.6) % Plt Count 40 L (140-440) K/mm3 Comprehensive Metabolic Panel 09/22/17 Range/Units 05:00 Sodium 133 L (137-145) mmol/L Potassium 3.5 L (3.6-5.0) mmol/L Chloride 93.7 L (98-107) mmol/L Carbon Dioxide 26 (22-30) mmol/L BUN 87 H (9-20) mg/dL Creatinine 3.0 H (0.8-1.5) mg/dL Glucose 100 (75-100) mg/dL Calcium 8.0 L (8.4-10.2) mg/dL AST 18 (5-40) units/L ALT 120 H (7-56) units/L Alkaline Phosphatase 237 H (35-129) units/L Total Protein 4.7 L (6.3-8.2) g/dL Albumin 1.9 L (3.9-5) g/dL - Imaging and Cardiology Echo: report reviewed (07/2017: EF 30-35%, impaired relaxation) - Telemetry EKG Rhythm: Atrial Fibrillation - Allied health notes Allied health notes reviewed: case management
[2017-09-22] MEDS ORDERED: CORDARONE PO SCH (10:00)
--- NOTE | 2017-09-22 10:27 | Progress Note ---
Assessment and Plan 66-year-old male s/p and Exploratory laparotomy, peritoneal lavage, cholecystectomy, placement of gastrojejunal feeding tube, closure of abdomen. POD 7 Exploratory laparotomy, repair of gastrotomy, removal of PEG tube, peritoneal lavage, temporary closure of abdomen with Abthera Vac on 09/12/17 1. septic shock 2. dislodged PEG tube 3. intraabdominal infection 4. WILLIAM Plan: 1. neuro - prn pain control via G tube 2. CV - afib, cardiology on board. DVT ppx - SCDs. Plts slowly rising - heme c/ s appreciated. Hgb stable. 3. Resp: tracheostomy, on t piece, continue to wean O2 per pulm 4. GI: NPO, GJ tube - J tube working again. Continue J tube Feeding - currently at goal. Continue free water flushes. 5. : barrientos. HD per nephro. May DC barrientos when OK with nephro - d/w Dr. Chacon (urology) 6. Endo: accuchecks, ISS. 7. ID: c/w abx per ID recs 8. FEN: replace lytes as needed. c/w TF Stable for dc to LTAC from surgery standpoint. Will dc arpan in 1 week. Subjective Date of service: 09/22/17 Narrative: Patient seen and examined. No complaints. He states that he feels well. Per nursing, no overnight events. She states that the patient has not had a bowel movement in at least 2 days. No fevers, chills. Tolerating tube feeds at goal. Objective Vital Signs - 12hr 09/21/17 09/21/17 09/21/17 22:48 23:53 23:58 Temperature Pulse Rate 81 Pulse Rate [ Anterior Bilateral Throughout] Pulse Rate [ From Monitor] Respiratory 19 15 Rate Respiratory Rate [Anterior Bilateral Throughout] Blood Pressure 136/74 136/74 O2 Sat by Pulse 98 97 Oximetry 09/22/17 09/22/17 09/22/17 00:00 00:03 00:09 Temperature 98.1 F Pulse Rate 74 85 Pulse Rate [ Anterior Bilateral Throughout] Pulse Rate [ 83 From Monitor] Respiratory 14 18 16 Rate Respiratory Rate [Anterior Bilateral Throughout] Blood Pressure 136/74 142/80 O2 Sat by Pulse 98 97 97 Oximetry 09/22/17 09/22/17 09/22/17 02:00 04:00 04:15 Temperature 98.7 F Pulse Rate 93 H 82 Pulse Rate [ 84 Anterior Bilateral Throughout] Pulse Rate [ 80 From Monitor] Respiratory 16 17 14 Rate Respiratory 20 Rate [Anterior Bilateral Throughout] Blood Pressure 138/77 139/66 O2 Sat by Pulse 99 98 100 Oximetry 09/22/17 09/22/17 09/22/17 04:33 04:34 05:07 Temperature Pulse Rate 82 Pulse Rate [ 82 Anterior Bilateral Throughout] Pulse Rate [ From Monitor] Respiratory 18 Rate Respiratory 20 Rate [Anterior Bilateral Throughout] Blood Pressure 139/66 O2 Sat by Pulse 98 Oximetry 09/22/17 09/22/17 09/22/17 06:01 08:00 08:05 Temperature 99.7 F H Pulse Rate 80 79 Pulse Rate [ 88 Anterior Bilateral Throughout] Pulse Rate [ 76 From Monitor] Respiratory 13 13 Rate Respiratory 18 Rate [Anterior Bilateral Throughout] Blood Pressure 142/75 142/77 O2 Sat by Pulse 100 97 Oximetry 09/22/17 09/22/17 09/22/17 08:23 08:26 08:37 Temperature Pulse Rate 81 Pulse Rate [ 86 Anterior Bilateral Throughout] Pulse Rate [ From Monitor] Respiratory Rate Respiratory 20 Rate [Anterior Bilateral Throughout] Blood Pressure 142/77 O2 Sat by Pulse 95 Oximetry - General physical appearance Narrative Exam: General: Awake, alert and vent. No apparent distress ENT:tracheostomy site clean and dry. Suture in place left flange removed CV: S1, S2 present Respiratory: No audible wheezes. On t piece Abdomen: Soft, nontender, nondistended. Tube feeds Infusing through J port. Midline incision clean, dry, intact with arpan in place. Extremities: edema improving : barrientos with clear yellow urine - Labs 09/22/17 05:00 09/22/17 05:00 Diabetes panel 09/22/17 Range/Units 05:00 Sodium 133 L (137-145) mmol/L Potassium 3.5 L (3.6-5.0) mmol/L Chloride 93.7 L (98-107) mmol/L Carbon Dioxide 26 (22-30) mmol/L BUN 87 H (9-20) mg/dL Creatinine 3.0 H (0.8-1.5) mg/dL Glucose 100 (75-100) mg/dL Calcium 8.0 L (8.4-10.2) mg/dL AST 18 (5-40) units/L ALT 120 H (7-56) units/L Alkaline Phosphatase 237 H (35-129) units/L Total Protein 4.7 L (6.3-8.2) g/dL Albumin 1.9 L (3.9-5) g/dL Calcium panel 09/22/17 Range/Units 05:00 Calcium 8.0 L (8.4-10.2) mg/dL Albumin 1.9 L (3.9-5) g/dL Pituitary panel 09/22/17 Range/Units 05:00 Sodium 133 L (137-145) mmol/L Potassium 3.5 L (3.6-5.0) mmol/L Chloride 93.7 L (98-107) mmol/L Carbon Dioxide 26 (22-30) mmol/L BUN 87 H (9-20) mg/dL Creatinine 3.0 H (0.8-1.5) mg/dL Glucose 100 (75-100) mg/dL Calcium 8.0 L (8.4-10.2) mg/dL Adrenal panel 09/22/17 Range/Units 05:00 Sodium 133 L (137-145) mmol/L Potassium 3.5 L (3.6-5.0) mmol/L Chloride 93.7 L (98-107) mmol/L Carbon Dioxide 26 (22-30) mmol/L BUN 87 H (9-20) mg/dL Creatinine 3.0 H (0.8-1.5) mg/dL Glucose 100 (75-100) mg/dL Calcium 8.0 L (8.4-10.2) mg/dL Total Bilirubin 0.80 (0.1-1.2) mg/dL AST 18 (5-40) units/L ALT 120 H (7-56) units/L Alkaline Phosphatase 237 H (35-129) units/L Total Protein 4.7 L (6.3-8.2) g/dL Albumin 1.9 L (3.9-5) g/dL
[2017-09-22] MEDS: LANTUS SUB-Q SCH (10:37)
[2017-09-22] MEDS: SODIUM CHLORIDE FLUSH SYRINGE 10 ML IV SCH ×2 (10:39→23:21)
[2017-09-22 11:15] LABS: Heparin-Induced Platelet Antib Negative (Negative); Unfractionated Heparin Negative (Negative)
--- NOTE | 2017-09-22 12:16 | Progress Note ---
Assessment and Plan Assessment: 1) Septic shock: off pressors; etiology - acute peritonitis +/- UTI 2) Acute peritonitis: from gastric content spill from dislodge PEG -CT showed pneumoperitoneum and PEG tube bumper outside of stomach. -S/P Exploratory laparotomy, repair of gastrotomy, removal of PEG tube, peritoneal lavage, temporary closure of abdomen with Abthera Vac on 09/13/17 3) WILLIAM. On HD. 4) Acute encephalopathy. Resolved. 5) CA-UTI. 6) History of Recent presumed VAP: Treated with cefepime/vano x 10 days. 7) History of Recent Acute respiratory failure: for airway protection - s/p trach 8) History of Right lower extremity chronic ischemia with short distance claudication: -S/P elective right common femoral endarterectomy with patch angioplasty, bilateral common iliac and right external artery stenting on 08/11/17 9) History of Ruptured pseudoaneurysm left groin/external iliac: -CTA showed retroperitoneal hemorrhage and bladder thickening. -S/P deployment of new Viabond stent graft across the inguinal ligament into the common femoral artery on 08/13/17. 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 Bcx 09/17 NGTD. 11) Thrombocytopenia - PLTs up today. 12) Katharine glabrata in 1/ Blood cx on 09/01. Blood cx 09/14, 09/17 neg for yeast. TTE 09/16 no vegetations. Plan: -continue cefepime D7/14 -continue flagyl and fluconazole D10/10 -Awaiting placement. -d/w pt, pt's bedside, RN and pharmacist. Lashon DODSON attending Cell phone [phone]. Subjective Date of service: 09/22/17 Principal diagnosis: Acute on chr. hypoxemic respr. failure, sepsis, Interval history: Afebrile. On T-piece. On no pressors. Microbiology: Blood cultures: 09/01 C glabrata 1/4 bottles 09/14 SAGGER MAKER 1 of 4 bottles 09/17 no growth Urine cultures: Respiratory cultures: 09/01 usual resp rudy Antibiotics: cefepime 09/16 metronidazole 09/12 fluconazole 09/12 Prior Antibiotics: levaquin 09/12 vanco 09/16 Objective - Exam Narrative Exam: General appearance: Pt in NAD, awake, alert, interactive. On T-piece. Eyes: anicteric sclerae, moist conjunctivae; PERRLA HENT: Atraumatic; Trach in place. Lungs: Coarse BS. CV: RRR, S1,S2. Abdomen: Soft, midline wound with wound VAC. GJ tube. Extremities: +edema BUE and BLE. Skin: No rash. Neuro: Awake, Alert, interactive. Lines: Left femoral trialysis catheter, RUE PICC - Constitutional Vitals: Vital Signs Temp Pulse Resp BP Pulse Ox 99.7 F H 81 20 142/77 95 09/22/17 08:00 09/22/17 08:37 09/22/17 08:26 09/22/17 08:37 09/22/17 08:23 Temperature -Last 24 Hours Temperature 99.7 F Temperature 98.7 F Temperature 98.1 F Temperature 98.0 F Temperature 97.6 F - Labs CBC & Chem 7: 09/22/17 05:00 09/22/17 05:00 Labs: Abnormal lab results 09/21/17 09/21/17 09/21/17 Range/Units 12:21 17:42 23:27 WBC (4.5-11.0) K/mm3 RBC (3.65-5.03) M/mm3 Hgb (11.8-15.2) gm/dl Hct (35.5-45.6) % RDW (13.2-15.2) % Plt Count (140-440) K/mm3 Seg Neuts % (Manual) (40.0-70.0) % Lymphocytes % (Manual) (13.4-35.0) % Seg Neutrophils # Man (1.8-7.7) K/mm3 Lymphocytes # (Manual) (1.2-5.4) K/mm3 Sodium (137-145) mmol/L Potassium (3.6-5.0) mmol/L Chloride (98-107) mmol/L BUN (9-20) mg/dL Creatinine (0.8-1.5) mg/dL POC Glucose 175 H 163 H 115 H (70-105) Calcium (8.4-10.2) mg/dL ALT (7-56) units/L Alkaline Phosphatase (35-129) units/L Total Protein (6.3-8.2) g/dL Albumin (3.9-5) g/dL 09/22/17 09/22/17 Range/Units 05:00 05:00 WBC 11.9 H (4.5-11.0) K/mm3 RBC 3.29 L (3.65-5.03) M/mm3 Hgb 10.2 L (11.8-15.2) gm/dl Hct 30.2 L (35.5-45.6) % RDW 19.6 H (13.2-15.2) % Plt Count 40 L (140-440) K/mm3 Seg Neuts % (Manual) 92.0 H (40.0-70.0) % Lymphocytes % (Manual) 3.0 L (13.4-35.0) % Seg Neutrophils # Man 10.9 H (1.8-7.7) K/mm3 Lymphocytes # (Manual) 0.4 L (1.2-5.4) K/mm3 Sodium 133 L (137-145) mmol/L Potassium 3.5 L (3.6-5.0) mmol/L Chloride 93.7 L (98-107) mmol/L BUN 87 H (9-20) mg/dL Creatinine 3.0 H (0.8-1.5) mg/dL POC Glucose (70-105) Calcium 8.0 L (8.4-10.2) mg/dL ALT 120 H (7-56) units/L Alkaline Phosphatase 237 H (35-129) units/L Total Protein 4.7 L (6.3-8.2) g/dL Albumin 1.9 L (3.9-5) g/dL
[2017-09-22] MEDS: ANTIBIOTIC OINT TP SCH ×2 (14:00→23:21)
[2017-09-22] MEDS: MAXIPIME 2 GM in NACL 0.9% 20 ML IV SCH (14:21)
[2017-09-22] MEDS: DIFLUCAN 200 MG/100 ML BAG IV SCH (23:19)
[2017-09-23] MEDS: DUONEB *Not for PRN Use IH SCH ×3 (00:18→17:35)
[2017-09-23] MEDS: HumaLOG SUB-Q SCH ×4 (00:21→18:54)
[2017-09-23] MEDS: BROVANA NEBU IH SCH ×2 (07:38→20:25)
[2017-09-23] MEDS: PULMICORT IH SCH ×2 (07:38→20:25)
[2017-09-23] MEDS: LOPRESSOR PO SCH ×2 (08:19→14:16)
[2017-09-23 08:38] LABS: Hematocrit 29.9 % (35.5-45.6); Hemoglobin 10.1 gm/dl (11.8-15.2); Mean Corpuscular HGB Conc 34 % (32-34); Mean Corpuscular Hemoglobin 32 pg (28-32); Mean Corpuscular Volume 93 fl (84-94); Red Blood Count 3.22 M/mm3 (3.65-5.03); Red Cell Distribution Width 19.6 % (13.2-15.2)
[2017-09-23 08:39] LABS: Platelet Count 44 K/mm3 (140-440)
[2017-09-23 08:57] LABS: Albumin 1.8 g/dL (3.9-5); Calcium 7.8 mg/dL (8.4-10.2)
--- NOTE | 2017-09-23 09:29 | Hem/Onc Progress Note ---
Assessment and Plan plts low- if bleeding or below 20k, will transfuse Platelets improving lfts improving HIT- Platelets improving. Continue to monitor Subjective Date of service: 09/23/17 Interval history: pt without change Objective - Exam Narrative Exam: trach abd bandadged no active bleeding - Constitutional Vitals: Last Vital Signs Temp 98.7 F 09/23/17 08:00 Pulse 92 H 09/23/17 08:19 Resp 18 09/23/17 07:59 BP 141/71 09/23/17 08:19 Pulse Ox 100 09/23/17 08:01 - Labs Lab Results: Laboratory Results - last 24 hr 09/16/17 09/22/17 09/22/17 09:59 11:43 17:49 WBC RBC Hgb Hct MCV MCH MCHC RDW Plt Count Heparin Anti-Xa, Unfract Negative POC ABG pH POC ABG pCO2 POC ABG pO2 POC ABG HCO3 POC ABG Total CO2 POC ABG O2 Sat POC ABG Base Excess FiO2 Sodium Potassium Chloride Carbon Dioxide Anion Gap BUN Creatinine Estimated GFR BUN/Creatinine Ratio Glucose POC Glucose 86 96 Calcium Total Bilirubin AST ALT Alkaline Phosphatase Total Protein Albumin Albumin/Globulin Ratio Heparin-induced Plt Ab Negative UF Heparin High Dose 0 SORIN UFH Low Dose 0.1 0 SORIN UFH Low Dose 0.5 0 09/22/17 09/23/17 09/23/17 23:48 04:07 05:16 WBC RBC Hgb Hct MCV MCH MCHC RDW Plt Count Heparin Anti-Xa, Unfract POC ABG pH 7.389 POC ABG pCO2 42.1 POC ABG pO2 105 POC ABG HCO3 25.4 POC ABG Total CO2 27 POC ABG O2 Sat 98 POC ABG Base Excess 0 FiO2 40 Sodium Potassium Chloride Carbon Dioxide Anion Gap BUN Creatinine Estimated GFR BUN/Creatinine Ratio Glucose POC Glucose 62 L 77 Calcium Total Bilirubin AST ALT Alkaline Phosphatase Total Protein Albumin Albumin/Globulin Ratio Heparin-induced Plt Ab UF Heparin High Dose SORIN UFH Low Dose 0.1 SORIN UFH Low Dose 0.5 09/23/17 09/23/17 08:10 08:10 WBC 10.3 RBC 3.22 L Hgb 10.1 L Hct 29.9 L MCV 93 MCH 32 MCHC 34 RDW 19.6 H Plt Count 44 L Heparin Anti-Xa, Unfract POC ABG pH POC ABG pCO2 POC ABG pO2 POC ABG HCO3 POC ABG Total CO2 POC ABG O2 Sat POC ABG Base Excess FiO2 Sodium 140 D Potassium 3.3 L Chloride 98.5 Carbon Dioxide 23 Anion Gap 22 BUN 96 H Creatinine 3.2 H Estimated GFR 19 BUN/Creatinine Ratio 30 Glucose 77 POC Glucose Calcium 7.8 L Total Bilirubin 0.70 AST 18 ALT 87 H Alkaline Phosphatase 235 H Total Protein 4.7 L Albumin 1.8 L Albumin/Globulin Ratio 0.6 Heparin-induced Plt Ab UF Heparin High Dose SORIN UFH Low Dose 0.1 SORIN UFH Low Dose 0.5
--- NOTE | 2017-09-23 09:52 | Progress Note ---
Assessment and Plan Sepsis with septic shock - resolved Continue with iv antibiotic per ID Cautious iv hydration b/c of Acute on chronic renal failure now on HD - Peritonitis from dislodged PEG tube and sepsis - resolving s/p lap with peritoneal lavage and repair of gastrostomy, removal of PEG tube Continue with iv levquin, Flagyl and diflucan - Gangerous gallbaldder s/p cholecyctectomy - Acute on Chronic renal failure requiring HD Improving. improving - Acute on chronic respiratory failure Off Mechanical ventilation via trach during the day only continue with bronchodilator Pulm Following - Hypokalemia: Will defer to nephrology for correction - Anemia - of chronic disease s/p blood transfusion - Transaminasemia from gangerous gall bladder s/p cholecyctectomy improving Will trend. anticipate improvement with iv hydration - Possible HIT Off heparin Hematology following - DVT PPX with lovenox - Disposition: Awaiting transfer to LTAC - Patient Problems (1) Acute renal failure Current Visit: Yes Status: Acute Qualifiers: Acute renal failure type: with acute tubular necrosis Qualified Code(s): N17.0 - Acute kidney failure with tubular necrosis (2) Acute respiratory failure with hypoxia Current Visit: Yes Status: Acute (3) Atrial fibrillation with RVR Current Visit: Yes Status: Acute (4) Cardiomyopathy Current Visit: Yes Status: Acute (5) Dislodged gastrostomy tube Current Visit: Yes Status: Acute (6) Hyperkalemia Current Visit: Yes Status: Acute (7) Pneumoperitoneum Current Visit: Yes Status: Acute (8) Severe sepsis with septic shock Current Visit: Yes Status: Acute (9) Thrombocytopenia Current Visit: Yes Status: Acute (10) Acute renal failure due to tubular necrosis Current Visit: No Status: Acute (11) Metabolic acidosis Current Visit: No Status: Acute Subjective Date of service: 09/23/17 Principal diagnosis: Acute Hypoxemic Respiratory Failure; Hemorrhagic Shock; WILLIAM on Dilaysis;PVD Interval history: Pt seen and examined. s/p Closure of abdominal wound with cholecyctectomy of gangrenous gall bladder. Still in ICU. Discussed with nursing staff. No overnight event reported to me. Objective - Exam Narrative Exam: Constitutional: Now off mechanical ventilation. Has tracheostomy. on CAPA at night. Awake. Afebrile Head: Normocephalic atraumatic Eyes: Pupils are equal round and reactive to light Nose: No enlarged turbinates, no septal deviation. Mouth: Moist mucous membranes. Neck: Supple no thyromegaly. No bruit. No JVD. trach tube in place Heart: Regular rate and rhythm, S1-S2 abnormal. No rubs murmurs or gallop Lungs: Decreased breath sound bilaterally. No rhonchi Abdomen: Soft, Dry surgical wound dressing nontender. PEG tube in place Extremities: 2+ edema no cyanosis and no clubbing. Neuro: Alert oriented Oriented x1. No focal sensory or motor deficit. Skin: No rashes no hyperemic spots Psychiatry: Euthymic. Calm. - Constitutional Vitals: Vital Signs - 12hr 09/22/17 09/22/17 09/22/17 22:00 23:00 23:19 Temperature 98.7 F Pulse Rate 97 H 84 Pulse Rate [ Anterior Bilateral Throughout] Pulse Rate [ From Monitor] Respiratory 18 Rate Respiratory Rate [Anterior Bilateral Throughout] Blood Pressure 155/81 155/81 O2 Sat by Pulse 99 Oximetry O2 Sat by Pulse Oximetry [ Assessment] 09/23/17 09/23/17 09/23/17 00:00 00:18 00:27 Temperature Pulse Rate 90 86 Pulse Rate [ 86 86 Anterior Bilateral Throughout] Pulse Rate [ 87 From Monitor] Respiratory 17 Rate Respiratory 19 21 Rate [Anterior Bilateral Throughout] Blood Pressure 140/74 140/74 O2 Sat by Pulse 95 100 Oximetry O2 Sat by Pulse Oximetry [ Assessment] 09/23/17 09/23/17 09/23/17 01:15 01:31 01:45 Temperature Pulse Rate 82 71 82 Pulse Rate [ Anterior Bilateral Throughout] Pulse Rate [ From Monitor] Respiratory 15 12 12 Rate Respiratory Rate [Anterior Bilateral Throughout] Blood Pressure 140/74 140/74 140/74 O2 Sat by Pulse 99 100 100 Oximetry O2 Sat by Pulse Oximetry [ Assessment] 09/23/17 09/23/17 09/23/17 02:00 02:15 02:31 Temperature Pulse Rate 94 H 89 81 Pulse Rate [ Anterior Bilateral Throughout] Pulse Rate [ From Monitor] Respiratory 21 19 16 Rate Respiratory Rate [Anterior Bilateral Throughout] Blood Pressure 149/70 149/70 149/70 O2 Sat by Pulse 99 97 99 Oximetry O2 Sat by Pulse Oximetry [ Assessment] 09/23/17 09/23/17 09/23/17 02:45 02:55 03:01 Temperature 98.8 F Pulse Rate 86 84 Pulse Rate [ Anterior Bilateral Throughout] Pulse Rate [ From Monitor] Respiratory 17 14 Rate Respiratory Rate [Anterior Bilateral Throughout] Blood Pressure 149/70 149/70 O2 Sat by Pulse 99 100 Oximetry O2 Sat by Pulse Oximetry [ Assessment] 09/23/17 09/23/17 09/23/17 03:15 03:31 03:45 Temperature Pulse Rate 82 97 H 88 Pulse Rate [ Anterior Bilateral Throughout] Pulse Rate [ From Monitor] Respiratory 12 13 17 Rate Respiratory Rate [Anterior Bilateral Throughout] Blood Pressure 149/70 149/70 149/70 O2 Sat by Pulse 100 100 99 Oximetry O2 Sat by Pulse Oximetry [ Assessment] 09/23/17 09/23/17 09/23/17 04:00 04:15 04:31 Temperature Pulse Rate 89 86 89 Pulse Rate [ Anterior Bilateral Throughout] Pulse Rate [ 87 From Monitor] Respiratory 22 16 19 Rate Respiratory Rate [Anterior Bilateral Throughout] Blood Pressure 141/71 141/71 141/71 O2 Sat by Pulse 99 99 99 Oximetry O2 Sat by Pulse Oximetry [ Assessment] 09/23/17 09/23/17 09/23/17 04:45 05:01 05:15 Temperature Pulse Rate 88 85 89 Pulse Rate [ Anterior Bilateral Throughout] Pulse Rate [ From Monitor] Respiratory 15 17 16 Rate Respiratory Rate [Anterior Bilateral Throughout] Blood Pressure 141/71 141/71 141/71 O2 Sat by Pulse 99 99 99 Oximetry O2 Sat by Pulse Oximetry [ Assessment] 09/23/17 09/23/17 09/23/17 05:31 05:45 06:00 Temperature Pulse Rate 95 H 84 84 Pulse Rate [ Anterior Bilateral Throughout] Pulse Rate [ From Monitor] Respiratory 18 10 L 17 Rate Respiratory Rate [Anterior Bilateral Throughout] Blood Pressure 141/71 141/71 145/74 O2 Sat by Pulse 99 100 100 Oximetry O2 Sat by Pulse Oximetry [ Assessment] 09/23/17 09/23/17 09/23/17 07:01 07:38 07:59 Temperature Pulse Rate 82 Pulse Rate [ 79 84 Anterior Bilateral Throughout] Pulse Rate [ From Monitor] Respiratory 15 Rate Respiratory 20 18 Rate [Anterior Bilateral Throughout] Blood Pressure 145/74 O2 Sat by Pulse 100 Oximetry O2 Sat by Pulse Oximetry [ Assessment] 09/23/17 09/23/17 09/23/17 08:00 08:01 08:19 Temperature 98.7 F Pulse Rate 86 92 H Pulse Rate [ Anterior Bilateral Throughout] Pulse Rate [ From Monitor] Respiratory 16 Rate Respiratory Rate [Anterior Bilateral Throughout] Blood Pressure 141/71 141/71 O2 Sat by Pulse 99 Oximetry O2 Sat by Pulse 98 Oximetry [ Assessment] 09/23/17 09:00 Temperature Pulse Rate 77 Pulse Rate [ Anterior Bilateral Throughout] Pulse Rate [ From Monitor] Respiratory 15 Rate Respiratory Rate [Anterior Bilateral Throughout] Blood Pressure 141/71 O2 Sat by Pulse 98 Oximetry O2 Sat by Pulse Oximetry [ Assessment] - Labs CBC & Chem 7: 09/23/17 08:10 09/23/17 08:10 Labs: Abnormal lab results 09/22/17 09/23/17 09/23/17 Range/Units 23:48 08:10 08:10 RBC 3.22 L (3.65-5.03) M/mm3 Hgb 10.1 L (11.8-15.2) gm/dl Hct 29.9 L (35.5-45.6) % RDW 19.6 H (13.2-15.2) % Plt Count 44 L (140-440) K/mm3 Potassium 3.3 L (3.6-5.0) mmol/L BUN 96 H (9-20) mg/dL Creatinine 3.2 H (0.8-1.5) mg/dL POC Glucose 62 L (70-105) Calcium 7.8 L (8.4-10.2) mg/dL ALT 87 H (7-56) units/L Alkaline Phosphatase 235 H (35-129) units/L Total Protein 4.7 L (6.3-8.2) g/dL Albumin 1.8 L (3.9-5) g/dL
--- NOTE | 2017-09-23 09:56 | Progress Note ---
Assessment and Plan Currently stable cardiac status. Cont present cardiac regimen, including amio 200mg daily and lopressor. Volume optimization and electrolyte replacement per nephrology. No systemic anticoagulation at this time in regards to atrial fibrillation in setting of anemia, thrombocytopenia and recent bleeding. Pt awaiting transfer to LTAC. Nothing further to add from cardiac perspective at this time. Will follow on as needed basis. The patient has been seen in conjunction with Dr. Sunshine who agrees with the assessment and plan of care. - Patient Problems (1) Acute respiratory failure with hypoxia Current Visit: Yes Status: Acute (2) Atrial fibrillation with RVR Current Visit: Yes Status: Resolved (3) Acute combined systolic and diastolic heart failure Current Visit: Yes Status: Acute (4) Cardiomyopathy Current Visit: Yes Status: Chronic (5) Severe sepsis with septic shock Current Visit: Yes Status: Acute (6) Acute renal failure Current Visit: Yes Status: Acute Qualifiers: Acute renal failure type: with acute tubular necrosis Qualified Code(s): N17.0 - Acute kidney failure with tubular necrosis (7) Peritonitis Current Visit: Yes Status: Acute (8) Pneumoperitoneum Current Visit: Yes Status: Acute (9) PAD (peripheral artery disease) Current Visit: Yes Status: Chronic (10) Anemia Current Visit: Yes Status: Acute Qualifiers: Chronic kidney disease stage: stage 2 (mild) (11) Thrombocytopenia Current Visit: Yes Status: Acute Subjective Date of service: 09/23/17 Principal diagnosis: Acute Hypoxemic Respiratory Failure; Hemorrhagic Shock; WILLIAM on Dilaysis;PVD Interval history: pt resting comfortably in bed, alert, trached. remains in AFib with CVR. Objective Last Vital Signs Temp 98.7 F 09/23/17 08:00 Pulse 77 09/23/17 09:00 Resp 15 09/23/17 09:00 BP 141/71 09/23/17 09:00 Pulse Ox 98 09/23/17 09:00 - Physical Examination General: No Apparent Distress, Other (trach in place.) HEENT: Positive: EOMI, Normocephaly, Mucus Membranes Moist Neck: Positive: neck supple, trachea midline Cardiac: Positive: irregularly irregular, S1/S2 Lungs: Positive: Decreased Breath Sounds, Oxygen Neuro: Positive: Grossly Intact Abdomen: Positive: Soft, Active Bowel Sounds. Negative: Tender /Rectal: Other (Scrotum edematous.) Skin: Positive: Clear. Negative: Rash Musculoskeletal: Normal Range of Motion Extremities: Present: +1 Edema, +2 Edema - Labs and Meds Cardiac Enzymes 09/23/17 Range/Units 08:10 AST 18 (5-40) units/L CBC 09/23/17 Range/Units 08:10 WBC 10.3 (4.5-11.0) K/mm3 RBC 3.22 L (3.65-5.03) M/mm3 Hgb 10.1 L (11.8-15.2) gm/dl Hct 29.9 L (35.5-45.6) % Plt Count 44 L (140-440) K/mm3 Comprehensive Metabolic Panel 09/23/17 Range/Units 08:10 Sodium 140 D (137-145) mmol/L Potassium 3.3 L (3.6-5.0) mmol/L Chloride 98.5 (98-107) mmol/L Carbon Dioxide 23 (22-30) mmol/L BUN 96 H (9-20) mg/dL Creatinine 3.2 H (0.8-1.5) mg/dL Glucose 77 (75-100) mg/dL Calcium 7.8 L (8.4-10.2) mg/dL AST 18 (5-40) units/L ALT 87 H (7-56) units/L Alkaline Phosphatase 235 H (35-129) units/L Total Protein 4.7 L (6.3-8.2) g/dL Albumin 1.8 L (3.9-5) g/dL - Imaging and Cardiology Echo: report reviewed (07/2017: EF 30-35%, impaired relaxation) - Allied health notes Allied health notes reviewed: case management
[2017-09-23] MEDS ORDERED: COLACE FEEDTUBE SCH (10:00)
[2017-09-23] MEDS ORDERED: CORDARONE PO SCH (10:00)
[2017-09-23] MEDS: PEPCID PO SCH (10:03)
[2017-09-23] MEDS: ANTIBIOTIC OINT TP SCH (10:04)
[2017-09-23] MEDS: SODIUM CHLORIDE FLUSH SYRINGE 10 ML IV SCH (10:04)
--- NOTE | 2017-09-23 10:47 | Progress Note ---
Assessment and Plan - Patient Problems (1) Acute renal failure due to tubular necrosis Current Visit: No Status: Acute Plan to address problem: Acute tubular necrosis secondary to hypotension/sepsis. Kidney function now improving. Urine output is improving but patient still would follow him overload and moderate to severe azotemia. We'll dialyze today and continue to monitor for this signs of renal recovery. Follow-up electrolytes and renal function. (2) Severe sepsis with septic shock Current Visit: Yes Status: Acute Plan to address problem: Continue antibiotics appropriately dosed to renal function. Remains stable off of vasopressors. (3) Hyperkalemia Current Visit: Yes Status: Acute Plan to address problem: Potassium has improved and is now low. Dialyze on a 4K bath. Continue to follow up (4) Acute respiratory failure with hypoxia Current Visit: Yes Status: Acute Plan to address problem: Patient is off of ventilator. Being managed by pulmonary (5) Peritonitis Current Visit: Yes Status: Acute Plan to address problem: S/p Exploratory laparotomy, peritoneal lavage, cholecystectomy, placement of gastrojejunal feeding tube, closure of abdomen. Continue antibiotics Subjective Date of service: 09/23/17 Principal diagnosis: Acute Hypoxemic Respiratory Failure; Hemorrhagic Shock; WILLIAM on Dilaysis;PVD Interval history: Patient seen lying in bed in ICU. Tracheostomy intact on T piece. Patient mouthing words. Awake and alert. Just had physical therapy and did well per Therapist Objective - Exam Narrative Exam: Middle-aged female lying in bed in no acute distress HEENT: NCAT, pink clear oropharynx Neck: Supple, no venous distention, trach intact on T-piece CVS: S1S2 RRR with no murmur, rub or gallop Chest: Rhonchi bilaterally Abdomen: Distended, soft, tender, bowel sounds diminished, dressings intact, edema trunk Extremities: 2+ Pitting edema, heel protectors intact, Skin: warm and dry Genitourinary deferred, [place] catheter draining clear urine Neuro: Awake, alert, communicating nonverbally - Vital Signs Vital signs: Vital Signs - 12hr 09/22/17 09/22/17 09/23/17 23:00 23:19 00:00 Temperature 98.7 F Pulse Rate 84 90 Pulse Rate [ Anterior Bilateral Throughout] Pulse Rate [ 87 From Monitor] Respiratory 17 Rate Respiratory Rate [Anterior Bilateral Throughout] Blood Pressure 155/81 140/74 O2 Sat by Pulse 95 Oximetry O2 Sat by Pulse Oximetry [ Assessment] 09/23/17 09/23/17 09/23/17 00:18 00:27 01:15 Temperature Pulse Rate 86 82 Pulse Rate [ 86 86 Anterior Bilateral Throughout] Pulse Rate [ From Monitor] Respiratory 15 Rate Respiratory 19 21 Rate [Anterior Bilateral Throughout] Blood Pressure 140/74 140/74 O2 Sat by Pulse 100 99 Oximetry O2 Sat by Pulse Oximetry [ Assessment] 09/23/17 09/23/17 09/23/17 01:31 01:45 02:00 Temperature Pulse Rate 71 82 94 H Pulse Rate [ Anterior Bilateral Throughout] Pulse Rate [ From Monitor] Respiratory 12 12 21 Rate Respiratory Rate [Anterior Bilateral Throughout] Blood Pressure 140/74 140/74 149/70 O2 Sat by Pulse 100 100 99 Oximetry O2 Sat by Pulse Oximetry [ Assessment] 09/23/17 09/23/17 09/23/17 02:15 02:31 02:45 Temperature Pulse Rate 89 81 86 Pulse Rate [ Anterior Bilateral Throughout] Pulse Rate [ From Monitor] Respiratory 19 16 17 Rate Respiratory Rate [Anterior Bilateral Throughout] Blood Pressure 149/70 149/70 149/70 O2 Sat by Pulse 97 99 99 Oximetry O2 Sat by Pulse Oximetry [ Assessment] 09/23/17 09/23/17 09/23/17 02:55 03:01 03:15 Temperature 98.8 F Pulse Rate 84 82 Pulse Rate [ Anterior Bilateral Throughout] Pulse Rate [ From Monitor] Respiratory 14 12 Rate Respiratory Rate [Anterior Bilateral Throughout] Blood Pressure 149/70 149/70 O2 Sat by Pulse 100 100 Oximetry O2 Sat by Pulse Oximetry [ Assessment] 09/23/17 09/23/17 09/23/17 03:31 03:45 04:00 Temperature Pulse Rate 97 H 88 89 Pulse Rate [ Anterior Bilateral Throughout] Pulse Rate [ 87 From Monitor] Respiratory 13 17 22 Rate Respiratory Rate [Anterior Bilateral Throughout] Blood Pressure 149/70 149/70 141/71 O2 Sat by Pulse 100 99 99 Oximetry O2 Sat by Pulse Oximetry [ Assessment] 09/23/17 09/23/17 09/23/17 04:15 04:31 04:45 Temperature Pulse Rate 86 89 88 Pulse Rate [ Anterior Bilateral Throughout] Pulse Rate [ From Monitor] Respiratory 16 19 15 Rate Respiratory Rate [Anterior Bilateral Throughout] Blood Pressure 141/71 141/71 141/71 O2 Sat by Pulse 99 99 99 Oximetry O2 Sat by Pulse Oximetry [ Assessment] 09/23/17 09/23/17 09/23/17 05:01 05:15 05:31 Temperature Pulse Rate 85 89 95 H Pulse Rate [ Anterior Bilateral Throughout] Pulse Rate [ From Monitor] Respiratory 17 16 18 Rate Respiratory Rate [Anterior Bilateral Throughout] Blood Pressure 141/71 141/71 141/71 O2 Sat by Pulse 99 99 99 Oximetry O2 Sat by Pulse Oximetry [ Assessment] 09/23/17 09/23/17 09/23/17 05:45 06:00 07:01 Temperature Pulse Rate 84 84 82 Pulse Rate [ Anterior Bilateral Throughout] Pulse Rate [ From Monitor] Respiratory 10 L 17 15 Rate Respiratory Rate [Anterior Bilateral Throughout] Blood Pressure 141/71 145/74 145/74 O2 Sat by Pulse 100 100 100 Oximetry O2 Sat by Pulse Oximetry [ Assessment] 09/23/17 09/23/17 09/23/17 07:38 07:59 08:00 Temperature 98.7 F Pulse Rate Pulse Rate [ 79 84 Anterior Bilateral Throughout] Pulse Rate [ 86 From Monitor] Respiratory 18 Rate Respiratory 20 18 Rate [Anterior Bilateral Throughout] Blood Pressure O2 Sat by Pulse 100 Oximetry O2 Sat by Pulse 98 Oximetry [ Assessment] 09/23/17 09/23/17 09/23/17 08:01 08:19 09:00 Temperature Pulse Rate 86 92 H 77 Pulse Rate [ Anterior Bilateral Throughout] Pulse Rate [ From Monitor] Respiratory 16 15 Rate Respiratory Rate [Anterior Bilateral Throughout] Blood Pressure 141/71 141/71 141/71 O2 Sat by Pulse 99 98 Oximetry O2 Sat by Pulse Oximetry [ Assessment] - Lab 09/23/17 08:10 09/23/17 08:10 Most recent lab results Calcium 7.8 mg/dL (8.4-10.2) L 09/23/17 08:10 Phosphorus 5.00 mg/dL (2.5-4.5) H 09/20/17 06:00 Magnesium 1.70 mg/dL (1.7-2.3) 09/20/17 06:00 Urine Creatinine 180.6 mg/dL (0.1-20.0) H 09/13/17 14:47 Urine Sodium 29 mmol/L 09/13/17 14:47 Urine Total Protein 289 mg/dL (5-11.8) H 09/13/17 14:47
--- NOTE | 2017-09-23 10:56 | Progress Note ---
Assessment and Plan [id number] hypoxemic respiratory failure secondary likely to #2. Acute peritonitis, status post dislodged PEG tube. Severe sepsis. Oropharyngeal dysphagia. Acute kidney injury, possibly on chronic. Obesity. Tobacco use disorder. Alcohol abuse. Anemia that is microcytic and multifactorial. Metabolic acidosis. Hyperkalemia. Adult failure to thrive. (Tentatively to transfer to LTAC today; will rest on AC overnight and shoot for RTC t-piece at LTAC) - continue daytime T-piece as tolerated (required rest on MVS overnight) - prn ABG's at this point - continue supplemental oxygen and wean to keep sats > 90% - continue daily SAT's and SBT's - keep Peep at 6 cmH2O - continue enteral nutrition as tolerated and advance to goal rate - off TPN - continue to address VAP bundle daily - continue antibiotics and de-escalate shortly - wean vasopressors to keep MAP >/= 65 mmHg - HD/UF prescrition per nephrology team - continue SCD's - HIT assay negative; sepsis may explain thrombocytopenia; will hold on heparin - schedule arixtra and continue SCD's - continue cefepime X 14 cumulative days per ID recs - continue agitation and analgesia management while avoiding benzodiazepines - Avoid nephrotoxic agents - case discussed at length in team rounds and care plan formulated - continue other care per attending / other consultants .... re-evaluate in am & prn .... ok to transfer to LTAC The high probability of a clinically significant, sudden or life threatening deterioration of the [cardiac, Renal, Respiratory, neurological] system(s) required my full and direct attention, intervention and personal management. The aggregate critical care time was [35] minutes without overlap. Time includes spent on; [x] Data Review and interpretation [x] Patient assessment and monitoring of vital signs [x] Documentation [x] Medication orders and management Subjective Date of service: 09/23/17 Principal diagnosis: Acute Hypoxemic Respiratory Failure; Hemorrhagic Shock; WILLIAM on Dilaysis;PVD Interval history: Patient is seen today for: Acute Hypoxemic Respiratory Failure; Hemorrhagic Shock; WILLIAM on Dilaysis;PVD Seen and examined at bedside; 24 hour events reviewed; nursing and respiratory care staff consulted; resting peacefully in bed; remains on MVS; resting peacefully in bed; on T-piece and tolerating well; rested on AC mode overnight; No N/V/F/C; remains on dialysis Objective Vital Signs - 12hr 09/22/17 09/22/17 09/23/17 23:00 23:19 00:00 Temperature 98.7 F Pulse Rate 84 90 Pulse Rate [ Anterior Bilateral Throughout] Pulse Rate [ 87 From Monitor] Respiratory 17 Rate Respiratory Rate [Anterior Bilateral Throughout] Blood Pressure 155/81 140/74 O2 Sat by Pulse 95 Oximetry O2 Sat by Pulse Oximetry [ Assessment] 09/23/17 09/23/17 09/23/17 00:18 00:27 01:15 Temperature Pulse Rate 86 82 Pulse Rate [ 86 86 Anterior Bilateral Throughout] Pulse Rate [ From Monitor] Respiratory 15 Rate Respiratory 19 21 Rate [Anterior Bilateral Throughout] Blood Pressure 140/74 140/74 O2 Sat by Pulse 100 99 Oximetry O2 Sat by Pulse Oximetry [ Assessment] 09/23/17 09/23/17 09/23/17 01:31 01:45 02:00 Temperature Pulse Rate 71 82 94 H Pulse Rate [ Anterior Bilateral Throughout] Pulse Rate [ From Monitor] Respiratory 12 12 21 Rate Respiratory Rate [Anterior Bilateral Throughout] Blood Pressure 140/74 140/74 149/70 O2 Sat by Pulse 100 100 99 Oximetry O2 Sat by Pulse Oximetry [ Assessment] 09/23/17 09/23/17 09/23/17 02:15 02:31 02:45 Temperature Pulse Rate 89 81 86 Pulse Rate [ Anterior Bilateral Throughout] Pulse Rate [ From Monitor] Respiratory 19 16 17 Rate Respiratory Rate [Anterior Bilateral Throughout] Blood Pressure 149/70 149/70 149/70 O2 Sat by Pulse 97 99 99 Oximetry O2 Sat by Pulse Oximetry [ Assessment] 09/23/17 09/23/17 09/23/17 02:55 03:01 03:15 Temperature 98.8 F Pulse Rate 84 82 Pulse Rate [ Anterior Bilateral Throughout] Pulse Rate [ From Monitor] Respiratory 14 12 Rate Respiratory Rate [Anterior Bilateral Throughout] Blood Pressure 149/70 149/70 O2 Sat by Pulse 100 100 Oximetry O2 Sat by Pulse Oximetry [ Assessment] 09/23/17 09/23/17 09/23/17 03:31 03:45 04:00 Temperature Pulse Rate 97 H 88 89 Pulse Rate [ Anterior Bilateral Throughout] Pulse Rate [ 87 From Monitor] Respiratory 13 17 22 Rate Respiratory Rate [Anterior Bilateral Throughout] Blood Pressure 149/70 149/70 141/71 O2 Sat by Pulse 100 99 99 Oximetry O2 Sat by Pulse Oximetry [ Assessment] 09/23/17 09/23/17 09/23/17 04:15 04:31 04:45 Temperature Pulse Rate 86 89 88 Pulse Rate [ Anterior Bilateral Throughout] Pulse Rate [ From Monitor] Respiratory 16 19 15 Rate Respiratory Rate [Anterior Bilateral Throughout] Blood Pressure 141/71 141/71 141/71 O2 Sat by Pulse 99 99 99 Oximetry O2 Sat by Pulse Oximetry [ Assessment] 09/23/17 09/23/17 09/23/17 05:01 05:15 05:31 Temperature Pulse Rate 85 89 95 H Pulse Rate [ Anterior Bilateral Throughout] Pulse Rate [ From Monitor] Respiratory 17 16 18 Rate Respiratory Rate [Anterior Bilateral Throughout] Blood Pressure 141/71 141/71 141/71 O2 Sat by Pulse 99 99 99 Oximetry O2 Sat by Pulse Oximetry [ Assessment] 09/23/17 09/23/17 09/23/17 05:45 06:00 07:01 Temperature Pulse Rate 84 84 82 Pulse Rate [ Anterior Bilateral Throughout] Pulse Rate [ From Monitor] Respiratory 10 L 17 15 Rate Respiratory Rate [Anterior Bilateral Throughout] Blood Pressure 141/71 145/74 145/74 O2 Sat by Pulse 100 100 100 Oximetry O2 Sat by Pulse Oximetry [ Assessment] 09/23/17 09/23/17 09/23/17 07:38 07:59 08:00 Temperature 98.7 F Pulse Rate Pulse Rate [ 79 84 Anterior Bilateral Throughout] Pulse Rate [ 86 From Monitor] Respiratory 18 Rate Respiratory 20 18 Rate [Anterior Bilateral Throughout] Blood Pressure O2 Sat by Pulse 100 Oximetry O2 Sat by Pulse 98 Oximetry [ Assessment] 09/23/17 09/23/17 09/23/17 08:01 08:19 09:00 Temperature Pulse Rate 86 92 H 77 Pulse Rate [ Anterior Bilateral Throughout] Pulse Rate [ From Monitor] Respiratory 16 15 Rate Respiratory Rate [Anterior Bilateral Throughout] Blood Pressure 141/71 141/71 141/71 O2 Sat by Pulse 99 98 Oximetry O2 Sat by Pulse Oximetry [ Assessment] Constitutional: no acute distress, alert, other (elderly looking slightly obese CM; normocephalic s/p trach to ATP) Eyes: non-icteric ENT: oropharynx moist, other (s/p tracheostomy to ATP) Neck: supple, no lymphadenopathy, other (no thyromegaly) Effort: normal Ascultation: Bilateral: diminished breath sounds, rhonchi Percussion: Bilateral: dull (bases) Cardiovascular: irregular rhythm, other (S1,S2, no rubs or murmurs) Gastrointestinal: normoactive bowel sounds, soft, non-tender, other (midline arpan with GJ in place, mildly distended, G portio to gravity bag) Integumentary: normal Extremities: no cyanosis, pink and warm, pulses normal, no ischemia or petechiae , edema Neurologic: non-focal exam (grossly), pupils equal and round, CN II-XII normal, motor strength normal and (weak), other (mouths words and responds appropriately to questions) Psychiatric: mood appropriate, affect normal CBC and BMP: 09/23/17 08:10 09/23/17 08:10 ABG, PT/INR, D-dimer: ABG POC ABG pH 7.389 (7.35-7.45) 09/23/17 04:07 POC ABG pCO2 42.1 (35-45) 09/23/17 04:07 POC ABG pO2 105 (80-105) 09/23/17 04:07 POC ABG HCO3 25.4 09/23/17 04:07 POC ABG Total CO2 27 09/23/17 04:07 POC ABG O2 Sat 98 09/23/17 04:07 PT/INR, D-dimer PT 16.2 Sec. (12.2-14.9) H 09/18/17 03:46 INR 1.23 (0.87-1.13) H 09/18/17 03:46 Abnormal lab findings: Abnormal Labs 09/12/17 09/13/17 09/13/17 22:56 03:08 05:20 WBC RBC 3.60 L Hgb 11.5 L Hct 34.4 L MCV 95 H MCHC RDW 19.8 H Plt Count 83 L Seg Neuts % (Manual) Lymphocytes % (Manual) 11.0 L Nucleated RBC % Seg Neutrophils # Man Lymphocytes # (Manual) 0.7 L PT INR APTT POC ABG pH 7.280 L POC ABG pCO2 46.4 H POC ABG pO2 110 H Sodium Potassium Chloride Carbon Dioxide BUN Creatinine Glucose POC Glucose 135 H Lactic Acid Calcium Phosphorus Total Bilirubin AST ALT Alkaline Phosphatase C-Reactive Protein Total Protein Albumin Prealbumin Urine WBC (Auto) Urine Creatinine Urine Total Protein Crossmatch 09/13/17 09/13/17 09/13/17 05:20 14:47 14:47 WBC RBC Hgb Hct MCV MCHC RDW Plt Count Seg Neuts % (Manual) Lymphocytes % (Manual) Nucleated RBC % Seg Neutrophils # Man Lymphocytes # (Manual) PT INR APTT POC ABG pH POC ABG pCO2 POC ABG pO2 Sodium Potassium 5.2 H Chloride 109.6 H Carbon Dioxide 20 L BUN 54 H Creatinine 2.3 H Glucose POC Glucose Lactic Acid Calcium 7.8 L Phosphorus 6.20 H Total Bilirubin AST ALT Alkaline Phosphatase C-Reactive Protein Total Protein Albumin Prealbumin 0.050 L Urine WBC (Auto) 30.0 H Urine Creatinine 180.6 H Urine Total Protein 289 H Crossmatch 09/13/17 09/13/17 09/13/17 14:54 14:54 17:04 WBC RBC Hgb Hct MCV MCHC RDW Plt Count Seg Neuts % (Manual) Lymphocytes % (Manual) Nucleated RBC % Seg Neutrophils # Man Lymphocytes # (Manual) PT INR APTT POC ABG pH POC ABG pCO2 POC ABG pO2 Sodium Potassium Chloride Carbon Dioxide BUN Creatinine Glucose POC Glucose 114 H Lactic Acid 2.20 H* Calcium Phosphorus Total Bilirubin AST ALT Alkaline Phosphatase C-Reactive Protein 33.10 H Total Protein Albumin Prealbumin Urine WBC (Auto) Urine Creatinine Urine Total Protein Crossmatch 09/13/17 09/13/17 09/14/17 19:40 23:49 04:07 WBC RBC Hgb Hct MCV MCHC RDW Plt Count Seg Neuts % (Manual) Lymphocytes % (Manual) Nucleated RBC % Seg Neutrophils # Man Lymphocytes # (Manual) PT INR APTT POC ABG pH 7.332 L POC ABG pCO2 34.3 L POC ABG pO2 76 L Sodium Potassium Chloride Carbon Dioxide BUN Creatinine Glucose POC Glucose 115 H Lactic Acid 2.20 H* Calcium Phosphorus Total Bilirubin AST ALT Alkaline Phosphatase C-Reactive Protein Total Protein Albumin Prealbumin Urine WBC (Auto) Urine Creatinine Urine Total Protein Crossmatch 09/14/17 09/14/17 09/14/17 05:15 05:15 05:35 WBC RBC Hgb Hct MCV MCHC RDW Plt Count Seg Neuts % (Manual) Lymphocytes % (Manual) Nucleated RBC % Seg Neutrophils # Man Lymphocytes # (Manual) PT INR APTT POC ABG pH POC ABG pCO2 POC ABG pO2 Sodium Potassium Chloride 107.5 H Carbon Dioxide 18 L BUN 77 H Creatinine 3.0 H Glucose 185 H POC Glucose 196 H Lactic Acid Calcium 7.3 L Phosphorus 7.80 H D Total Bilirubin 2.50 H AST 991 H ALT 1757 H Alkaline Phosphatase C-Reactive Protein Total Protein 4.1 L Albumin 1.8 L Prealbumin Urine WBC (Auto) Urine Creatinine Urine Total Protein Crossmatch 09/14/17 09/14/17 09/14/17 12:17 18:08 23:55 WBC RBC Hgb Hct MCV MCHC RDW Plt Count Seg Neuts % (Manual) Lymphocytes % (Manual) Nucleated RBC % Seg Neutrophils # Man Lymphocytes # (Manual) PT INR APTT POC ABG pH POC ABG pCO2 POC ABG pO2 Sodium Potassium Chloride Carbon Dioxide BUN Creatinine Glucose POC Glucose 212 H 242 H 231 H Lactic Acid Calcium Phosphorus Total Bilirubin AST ALT Alkaline Phosphatase C-Reactive Protein Total Protein Albumin Prealbumin Urine WBC (Auto) Urine Creatinine Urine Total Protein Crossmatch 09/15/17 09/15/17 09/15/17 04:12 05:50 06:00 WBC RBC 2.62 L Hgb 8.3 L D Hct 25.8 L D MCV 98 H MCHC RDW 20.1 H Plt Count 50 L Seg Neuts % (Manual) 82.0 H Lymphocytes % (Manual) 6.0 L Nucleated RBC % Seg Neutrophils # Man Lymphocytes # (Manual) 0.5 L PT INR APTT POC ABG pH 7.252 L POC ABG pCO2 POC ABG pO2 Sodium Potassium Chloride Carbon Dioxide BUN Creatinine Glucose POC Glucose 240 H Lactic Acid Calcium Phosphorus Total Bilirubin AST ALT Alkaline Phosphatase C-Reactive Protein Total Protein Albumin Prealbumin Urine WBC (Auto) Urine Creatinine Urine Total Protein Crossmatch 09/15/17 09/15/17 09/15/17 06:00 11:17 15:11 WBC RBC Hgb Hct MCV MCHC RDW Plt Count Seg Neuts % (Manual) Lymphocytes % (Manual) Nucleated RBC % Seg Neutrophils # Man Lymphocytes # (Manual) PT INR APTT POC ABG pH POC ABG pCO2 POC ABG pO2 Sodium 136 L Potassium Chloride Carbon Dioxide 17 L BUN 98 H Creatinine 3.9 H Glucose 207 H POC Glucose 215 H 238 H Lactic Acid Calcium 7.4 L Phosphorus 7.80 H Total Bilirubin 1.50 H AST 357 H ALT 1308 H Alkaline Phosphatase C-Reactive Protein Total Protein 4.2 L Albumin 1.7 L Prealbumin Urine WBC (Auto) Urine Creatinine Urine Total Protein Crossmatch 09/15/17 09/15/17 09/15/17 17:52 17:52 17:52 WBC 11.4 H RBC 2.91 L Hgb 8.8 L Hct 29.0 L MCV 100 H MCHC 31 L RDW 20.6 H Plt Count 46 L Seg Neuts % (Manual) Lymphocytes % (Manual) Nucleated RBC % Seg Neutrophils # Man Lymphocytes # (Manual) PT 16.5 H INR 1.26 H APTT 38.7 H POC ABG pH POC ABG pCO2 POC ABG pO2 Sodium 136 L Potassium Chloride Carbon Dioxide 16 L BUN 100 H Creatinine 3.8 H Glucose 220 H POC Glucose Lactic Acid Calcium 7.3 L Phosphorus Total Bilirubin 1.50 H AST 263 H ALT 1236 H Alkaline Phosphatase C-Reactive Protein Total Protein 4.3 L Albumin 2.0 L Prealbumin Urine WBC (Auto) Urine Creatinine Urine Total Protein Crossmatch 09/15/17 09/15/17 09/16/17 18:12 23:34 05:22 WBC RBC Hgb Hct MCV MCHC RDW Plt Count Seg Neuts % (Manual) Lymphocytes % (Manual) Nucleated RBC % Seg Neutrophils # Man Lymphocytes # (Manual) PT INR APTT POC ABG pH POC ABG pCO2 POC ABG pO2 Sodium Potassium Chloride Carbon Dioxide BUN Creatinine Glucose POC Glucose 276 H 275 H 306 H Lactic Acid Calcium Phosphorus Total Bilirubin AST ALT Alkaline Phosphatase C-Reactive Protein Total Protein Albumin Prealbumin Urine WBC (Auto) Urine Creatinine Urine Total Protein Crossmatch 09/16/17 09/16/17 09/16/17 06:15 06:15 12:10 WBC RBC 2.75 L Hgb 8.8 L Hct 27.1 L MCV 99 H MCHC RDW 20.2 H Plt Count 42 L Seg Neuts % (Manual) 93.0 H Lymphocytes % (Manual) 3.0 L Nucleated RBC % Seg Neutrophils # Man 8.5 H Lymphocytes # (Manual) 0.3 L PT INR APTT POC ABG pH POC ABG pCO2 POC ABG pO2 Sodium 136 L Potassium Chloride Carbon Dioxide 15 L BUN 110 H Creatinine 4.1 H Glucose 265 H POC Glucose 277 H Lactic Acid Calcium 7.6 L Phosphorus 9.00 H Total Bilirubin 1.30 H AST 227 H ALT 966 H Alkaline Phosphatase C-Reactive Protein Total Protein 4.3 L Albumin 1.8 L Prealbumin Urine WBC (Auto) Urine Creatinine Urine Total Protein Crossmatch 09/16/17 09/16/17 09/16/17 13:07 17:33 23:42 WBC RBC Hgb Hct MCV MCHC RDW Plt Count Seg Neuts % (Manual) Lymphocytes % (Manual) Nucleated RBC % Seg Neutrophils # Man Lymphocytes # (Manual) PT INR APTT POC ABG pH 7.175 L POC ABG pCO2 POC ABG pO2 71 L Sodium Potassium Chloride Carbon Dioxide BUN Creatinine Glucose POC Glucose 289 H 262 H Lactic Acid Calcium Phosphorus Total Bilirubin AST ALT Alkaline Phosphatase C-Reactive Protein Total Protein Albumin Prealbumin Urine WBC (Auto) Urine Creatinine Urine Total Protein Crossmatch 09/17/17 09/17/17 09/17/17 05:30 05:30 05:39 WBC RBC 2.39 L Hgb 7.4 L Hct 23.0 L MCV 96 H MCHC RDW 19.6 H Plt Count 24 L Seg Neuts % (Manual) 76.0 H Lymphocytes % (Manual) 5.0 L Nucleated RBC % Seg Neutrophils # Man Lymphocytes # (Manual) 0.4 L PT INR APTT POC ABG pH POC ABG pCO2 POC ABG pO2 Sodium Potassium Chloride Carbon Dioxide BUN 93 H Creatinine 3.6 H Glucose 201 H POC Glucose 218 H Lactic Acid Calcium 7.5 L Phosphorus 6.10 H D Total Bilirubin AST 62 H ALT 619 H Alkaline Phosphatase C-Reactive Protein Total Protein 4.1 L Albumin 1.7 L Prealbumin Urine WBC (Auto) Urine Creatinine Urine Total Protein Crossmatch 09/17/17 09/17/17 09/17/17 10:45 11:31 17:46 WBC RBC Hgb Hct MCV MCHC RDW Plt Count Seg Neuts % (Manual) Lymphocytes % (Manual) Nucleated RBC % Seg Neutrophils # Man Lymphocytes # (Manual) PT INR APTT POC ABG pH POC ABG pCO2 POC ABG pO2 Sodium Potassium Chloride Carbon Dioxide BUN Creatinine Glucose POC Glucose 221 H 209 H Lactic Acid Calcium Phosphorus Total Bilirubin AST ALT Alkaline Phosphatase C-Reactive Protein Total Protein Albumin Prealbumin Urine WBC (Auto) Urine Creatinine Urine Total Protein Crossmatch See Detail 09/18/17 09/18/17 09/18/17 00:05 03:46 03:46 WBC RBC 3.05 L Hgb 9.5 L Hct 28.2 L MCV MCHC RDW 19.0 H Plt Count 29 L Seg Neuts % (Manual) 81.0 H Lymphocytes % (Manual) 7.0 L Nucleated RBC % 3.0 H Seg Neutrophils # Man Lymphocytes # (Manual) 0.6 L PT 16.2 H INR 1.23 H APTT POC ABG pH POC ABG pCO2 POC ABG pO2 Sodium Potassium Chloride Carbon Dioxide BUN Creatinine Glucose POC Glucose 168 H Lactic Acid Calcium Phosphorus Total Bilirubin AST ALT Alkaline Phosphatase C-Reactive Protein Total Protein Albumin Prealbumin Urine WBC (Auto) Urine Creatinine Urine Total Protein Crossmatch 09/18/17 09/18/17 09/18/17 03:46 04:59 05:54 WBC RBC Hgb Hct MCV MCHC RDW Plt Count Seg Neuts % (Manual) Lymphocytes % (Manual) Nucleated RBC % Seg Neutrophils # Man Lymphocytes # (Manual) PT INR APTT POC ABG pH POC ABG pCO2 POC ABG pO2 75 L Sodium Potassium 3.4 L Chloride 97.2 L Carbon Dioxide BUN 73 H Creatinine 3.1 H Glucose 160 H POC Glucose 202 H Lactic Acid Calcium 7.6 L Phosphorus 4.60 H D Total Bilirubin AST ALT 446 H Alkaline Phosphatase 136 H C-Reactive Protein Total Protein 4.5 L Albumin 1.9 L Prealbumin Urine WBC (Auto) Urine Creatinine Urine Total Protein Crossmatch 09/18/17 09/18/17 09/18/17 10:52 13:14 18:34 WBC RBC Hgb Hct MCV MCHC RDW Plt Count Seg Neuts % (Manual) Lymphocytes % (Manual) Nucleated RBC % Seg Neutrophils # Man Lymphocytes # (Manual) PT INR APTT POC ABG pH POC ABG pCO2 POC ABG pO2 Sodium Potassium Chloride Carbon Dioxide BUN Creatinine Glucose POC Glucose 179 H 177 H 177 H Lactic Acid Calcium Phosphorus Total Bilirubin AST ALT Alkaline Phosphatase C-Reactive Protein Total Protein Albumin Prealbumin Urine WBC (Auto) Urine Creatinine Urine Total Protein Crossmatch 09/18/17 09/18/17 09/19/17 20:25 23:49 04:15 WBC RBC 3.11 L Hgb 9.8 L Hct 28.4 L MCV MCHC 35 H RDW 19.4 H Plt Count 34 L Seg Neuts % (Manual) 71.0 H Lymphocytes % (Manual) 6.0 L Nucleated RBC % Seg Neutrophils # Man Lymphocytes # (Manual) 0.6 L PT INR APTT POC ABG pH POC ABG pCO2 POC ABG pO2 69 L Sodium Potassium Chloride Carbon Dioxide BUN Creatinine Glucose POC Glucose 158 H Lactic Acid Calcium Phosphorus Total Bilirubin AST ALT Alkaline Phosphatase C-Reactive Protein Total Protein Albumin Prealbumin Urine WBC (Auto) Urine Creatinine Urine Total Protein Crossmatch 09/19/17 09/19/17 09/19/17 04:15 05:23 06:52 WBC RBC Hgb Hct MCV MCHC RDW Plt Count Seg Neuts % (Manual) Lymphocytes % (Manual) Nucleated RBC % Seg Neutrophils # Man Lymphocytes # (Manual) PT INR APTT POC ABG pH 7.496 H POC ABG pCO2 31.9 L POC ABG pO2 Sodium 136 L Potassium 3.2 L Chloride 94.5 L Carbon Dioxide BUN 72 H Creatinine 2.9 H Glucose 149 H POC Glucose 153 H Lactic Acid Calcium 8.0 L Phosphorus Total Bilirubin AST ALT 300 H Alkaline Phosphatase 169 H C-Reactive Protein Total Protein 4.5 L Albumin 2.0 L Prealbumin Urine WBC (Auto) Urine Creatinine Urine Total Protein Crossmatch 09/19/17 09/19/17 09/19/17 11:43 17:59 23:33 WBC RBC Hgb Hct MCV MCHC RDW Plt Count Seg Neuts % (Manual) Lymphocytes % (Manual) Nucleated RBC % Seg Neutrophils # Man Lymphocytes # (Manual) PT INR APTT POC ABG pH POC ABG pCO2 POC ABG pO2 Sodium Potassium Chloride Carbon Dioxide BUN Creatinine Glucose POC Glucose 117 H 133 H 124 H Lactic Acid Calcium Phosphorus Total Bilirubin AST ALT Alkaline Phosphatase C-Reactive Protein Total Protein Albumin Prealbumin Urine WBC (Auto) Urine Creatinine Urine Total Protein Crossmatch 09/20/17 09/20/17 09/20/17 05:27 06:00 06:00 WBC RBC 3.26 L Hgb 10.0 L Hct 30.3 L MCV MCHC RDW 19.3 H Plt Count 34 L Seg Neuts % (Manual) 93.0 H Lymphocytes % (Manual) 3.0 L Nucleated RBC % Seg Neutrophils # Man 9.0 H Lymphocytes # (Manual) 0.3 L PT INR APTT POC ABG pH POC ABG pCO2 POC ABG pO2 Sodium 136 L Potassium 3.2 L Chloride 93.7 L Carbon Dioxide BUN 89 H Creatinine 3.6 H Glucose 113 H POC Glucose 115 H Lactic Acid Calcium 8.2 L Phosphorus 5.00 H Total Bilirubin AST ALT 214 H Alkaline Phosphatase 156 H C-Reactive Protein Total Protein 4.6 L Albumin 1.8 L Prealbumin Urine WBC (Auto) Urine Creatinine Urine Total Protein Crossmatch 09/20/17 09/20/17 09/20/17 11:40 18:24 22:57 WBC RBC Hgb Hct MCV MCHC RDW Plt Count Seg Neuts % (Manual) Lymphocytes % (Manual) Nucleated RBC % Seg Neutrophils # Man Lymphocytes # (Manual) PT INR APTT POC ABG pH POC ABG pCO2 POC ABG pO2 Sodium Potassium Chloride Carbon Dioxide BUN Creatinine Glucose POC Glucose 125 H 188 H 155 H Lactic Acid Calcium Phosphorus Total Bilirubin AST ALT Alkaline Phosphatase C-Reactive Protein Total Protein Albumin Prealbumin Urine WBC (Auto) Urine Creatinine Urine Total Protein Crossmatch 09/21/17 09/21/17 09/21/17 05:53 12:21 17:42 WBC RBC Hgb Hct MCV MCHC RDW Plt Count Seg Neuts % (Manual) Lymphocytes % (Manual) Nucleated RBC % Seg Neutrophils # Man Lymphocytes # (Manual) PT INR APTT POC ABG pH POC ABG pCO2 POC ABG pO2 Sodium Potassium Chloride Carbon Dioxide BUN Creatinine Glucose POC Glucose 149 H 175 H 163 H Lactic Acid Calcium Phosphorus Total Bilirubin AST ALT Alkaline Phosphatase C-Reactive Protein Total Protein Albumin Prealbumin Urine WBC (Auto) Urine Creatinine Urine Total Protein Crossmatch 09/21/17 09/22/17 09/22/17 23:27 05:00 05:00 WBC 11.9 H RBC 3.29 L Hgb 10.2 L Hct 30.2 L MCV MCHC RDW 19.6 H Plt Count 40 L Seg Neuts % (Manual) 92.0 H Lymphocytes % (Manual) 3.0 L Nucleated RBC % Seg Neutrophils # Man 10.9 H Lymphocytes # (Manual) 0.4 L PT INR APTT POC ABG pH POC ABG pCO2 POC ABG pO2 Sodium 133 L Potassium 3.5 L Chloride 93.7 L Carbon Dioxide BUN 87 H Creatinine 3.0 H Glucose POC Glucose 115 H Lactic Acid Calcium 8.0 L Phosphorus Total Bilirubin AST ALT 120 H Alkaline Phosphatase 237 H C-Reactive Protein Total Protein 4.7 L Albumin 1.9 L Prealbumin Urine WBC (Auto) Urine Creatinine Urine Total Protein Crossmatch 09/22/17 09/23/17 09/23/17 23:48 08:10 08:10 WBC RBC 3.22 L Hgb 10.1 L Hct 29.9 L MCV MCHC RDW 19.6 H Plt Count 44 L Seg Neuts % (Manual) Lymphocytes % (Manual) Nucleated RBC % Seg Neutrophils # Man Lymphocytes # (Manual) PT INR APTT POC ABG pH POC ABG pCO2 POC ABG pO2 Sodium Potassium 3.3 L Chloride Carbon Dioxide BUN 96 H Creatinine 3.2 H Glucose POC Glucose 62 L Lactic Acid Calcium 7.8 L Phosphorus Total Bilirubin AST ALT 87 H Alkaline Phosphatase 235 H C-Reactive Protein Total Protein 4.7 L Albumin 1.8 L Prealbumin Urine WBC (Auto) Urine Creatinine Urine Total Protein Crossmatch Allied health notes reviewed: nursing
[2017-09-23 11:09] LABS: Eosinophils % (Manual) 0 % (0.0-4.3); Total Cells Counted 100
[2017-09-23 11:10] LABS: Acanthocytes 1+; Anisocytosis 1+; Platelet Estimate Cons; Poikilocytosis 1+
--- NOTE | 2017-09-23 12:19 | Progress Note ---
Assessment and Plan Assessment: 1) Septic shock: off pressors; etiology - acute peritonitis +/- UTI. Resolved. 2) Acute peritonitis: from gastric content spill from dislodge PEG. -CT showed pneumoperitoneum and PEG tube bumper outside of stomach. -S/P Exploratory laparotomy, repair of gastrotomy, removal of PEG tube, peritoneal lavage, temporary closure of abdomen with Abthera Vac on 09/13/17. 3) WILLIAM. On HD. 4) Acute encephalopathy. Resolved. 5) CA-UTI. 6) History of Recent presumed VAP: Treated with cefepime/vano x 10 days. 7) History of Recent Acute respiratory failure: for airway protection - s/p trach 8) History of Right lower extremity chronic ischemia with short distance claudication: -S/P elective right common femoral endarterectomy with patch angioplasty, bilateral common iliac and right external artery stenting on 08/11/17 9) History of Ruptured pseudoaneurysm left groin/external iliac: -CTA showed retroperitoneal hemorrhage and bladder thickening. -S/P deployment of new Viabond stent graft across the inguinal ligament into the common femoral artery on 08/13/17. 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 Bcx 09/17 NGTD. 11) Thrombocytopenia - PLTs up today. 12) Katharine glabrata in 1/ Blood cx on 09/01. Blood cx 09/14, 09/17 neg for yeast. TTE 09/16 no vegetations. Plan: -continue cefepime D8/. -Comlpeted flagyl and fluconazole as planned. -Awaiting transfer to [facility]. -d/w pt, RN. Lashon DODSON attending Cell phone [phone]. Subjective Date of service: 09/23/17 Principal diagnosis: Acute Hypoxemic Respiratory Failure; Hemorrhagic Shock; WILLIAM on Dilaysis;PVD Interval history: Afebrile. On T-piece. Microbiology: Blood cultures: 09/01 C glabrata 1/ bottles 09/14 JUMPBASTING LINING BASTER 1 of 4 bottles 09/17 no growth Urine cultures: Respiratory cultures: 09/01 usual resp rudy Antibiotics: cefepime 09/16 Prior Antibiotics: levaquin 09/12 vanco 09/16 metronidazole 09/12-09/22 fluconazole 09/12-09/22 Objective - Exam Narrative Exam: General appearance: Pt in NAD, awake, alert, interactive. On T-piece. Eyes: anicteric sclerae, moist conjunctivae; PERRLA HENT: Atraumatic; Trach in place. Lungs: Coarse BS. CV: RRR, S1,S2. Abdomen: Soft, midline wound with arpan, clean, no drainage or erythema. GJ tube. Extremities: +edema BUE and BLE. Skin: No rash. Neuro: Awake, Alert, interactive. Lines: Left femoral trialysis catheter, RUE PICC. No barrientos (has been removed). - Constitutional Vitals: Vital Signs Temp Pulse Resp BP Pulse Ox 98.7 F 77 15 141/71 98 09/23/17 08:00 09/23/17 09:00 09/23/17 09:00 09/23/17 09:00 09/23/17 09:00 Temperature -Last 24 Hours Temperature 98.7 F Temperature 98.8 F Temperature 98.7 F Temperature 98.8 F Temperature 98.6 F - Labs CBC & Chem 7: 09/23/17 08:10 09/23/17 08:10 Labs: Abnormal lab results 09/22/17 09/23/17 09/23/17 Range/Units 23:48 08:10 08:10 RBC 3.22 L (3.65-5.03) M/mm3 Hgb 10.1 L (11.8-15.2) gm/dl Hct 29.9 L (35.5-45.6) % RDW 19.6 H (13.2-15.2) % Plt Count 44 L (140-440) K/mm3 Seg Neuts % (Manual) 92.0 H (40.0-70.0) % Lymphocytes % (Manual) 5.0 L (13.4-35.0) % Nucleated RBC % 1.0 H (0.0-0.9) % Seg Neutrophils # Man 9.5 H (1.8-7.7) K/mm3 Lymphocytes # (Manual) 0.5 L (1.2-5.4) K/mm3 Potassium 3.3 L (3.6-5.0) mmol/L BUN 96 H (9-20) mg/dL Creatinine 3.2 H (0.8-1.5) mg/dL POC Glucose 62 L (70-105) Calcium 7.8 L (8.4-10.2) mg/dL ALT 87 H (7-56) units/L Alkaline Phosphatase 235 H (35-129) units/L Total Protein 4.7 L (6.3-8.2) g/dL Albumin 1.8 L (3.9-5) g/dL
[2017-09-23] MEDS: MAXIPIME 2 GM in NACL 0.9% 20 ML IV SCH (13:28)
[2017-09-23 18:52] VITALS: BP 159/70
[2017-09-23] MEDS ORDERED: LANTUS SUB-Q SCH (22:00)
== END 2017-09-23 21:00 | disposition home or self-care (01) | DRG 853 ==
LOC: CC1 22:35
PROVIDERS: ADMIT Family Medicine; ATTEND Family Medicine
PROC: 0D960ZZ Drainage of Stomach, Open Approach (ICD-10-PCS; principal; 2017-09-12)
PROC: 5A1955Z Respiratory Ventilation, Greater than 96 Consecutive Hours (ICD-10-PCS; 2017-09-12)
PROC: 4A033R1 Measurement of Arterial Saturation, Peripheral, Percutaneous Approach (ICD-10-PCS; 2017-09-12)
PROC: 0W9F0ZZ Drainage of Abdominal Wall, Open Approach (ICD-10-PCS; 2017-09-15)
PROC: 0FT40ZZ Resection of Gallbladder, Open Approach (ICD-10-PCS; 2017-09-15)
PROC: 0D160ZA Bypass Stomach to Jejunum, Open Approach (ICD-10-PCS; 2017-09-15)
PROC: 0TJB8ZZ Inspection of Bladder, Via Natural or Artificial Opening Endoscopic (ICD-10-PCS; 2017-09-15)
PROC: 02HV33Z Insertion of Infusion Device into Superior Vena Cava, Percutaneous Approach (ICD-10-PCS; 2017-09-16)
PROC: B548ZZA Ultrasonography of Superior Vena Cava, Guidance (ICD-10-PCS; 2017-09-16)
PROC: 5A1D70Z Performance of Urinary Filtration, Intermittent, Less than 6 Hours Per Day (ICD-10-PCS; 2017-09-16)
PROC: 5A1D70Z Performance of Urinary Filtration, Intermittent, Less than 6 Hours Per Day (ICD-10-PCS; 2017-09-17)
PROC: 30233N1 Transfusion of Nonautologous Red Blood Cells into Peripheral Vein, Percutaneous Approach (ICD-10-PCS; 2017-09-17)
PROC: 5A1D70Z Performance of Urinary Filtration, Intermittent, Less than 6 Hours Per Day (ICD-10-PCS; 2017-09-18)
PROC: 5A1D70Z Performance of Urinary Filtration, Intermittent, Less than 6 Hours Per Day (ICD-10-PCS; 2017-09-21)
PROC: 5A1D70Z Performance of Urinary Filtration, Intermittent, Less than 6 Hours Per Day (ICD-10-PCS; 2017-09-23)
DX: A41.9 Sepsis, unspecified organism (principal); N17.0 Acute kidney failure with tubular necrosis; R65.21 Severe sepsis with septic shock; J96.21 Acute and chronic respiratory failure with hypoxia; K65.9 Peritonitis, unspecified; G93.40 Encephalopathy, unspecified; I50.21 Acute systolic (congestive) heart failure; E87.0 Hyperosmolality and hypernatremia; Z43.1 Encounter for attention to gastrostomy; N39.0 Urinary tract infection, site not specified; I13.0 Hypertensive heart and chronic kidney disease with heart failure and stage 1 through stage 4 chronic kidney disease, or unspecified chronic kidney disease; I42.9 Cardiomyopathy, unspecified; I25.10 Atherosclerotic heart disease of native coronary artery without angina pectoris; E78.5 Hyperlipidemia, unspecified; F17.200 Nicotine dependence, unspecified, uncomplicated; F10.10 Alcohol abuse, uncomplicated; D50.0 Iron deficiency anemia secondary to blood loss (chronic); E87.5 Hyperkalemia; Z88.2 Allergy status to sulfonamides; E11.51 Type 2 diabetes mellitus with diabetic peripheral angiopathy without gangrene; N18.9 Chronic kidney disease, unspecified; I48.91 Unspecified atrial fibrillation; D69.6 Thrombocytopenia, unspecified
CPT/HCPCS: 36415; 36600; 71045; 74018; 80048; 80053; 80202; 81001; 82140; 82570; 82803; 82962; 83735; 84100; 84134; 84156; 84300; 85007; 85025; 85027; 85610; 85730; 86022; 86140; 86850; 86900; 86901; 86920; 87040; 87205; 88304; 93005; 93010; 93306; 94002; 94003; 94640; 94760; A4217; C9113; G8978-GP; G8979-GP; J0282; J0692; J0885; J1450; J1644; J1815; J1956; J2370; J2405; J2704; J3010; J3370; J7030; J7040; J7060; P9016